=== PATIENT | female | born 1970 | race Caucasian/White ===

== ENCOUNTER 2017-09-25 15:54 | Emergency (ER) | payer MEDICARE, OTHER ==
[~2017-09-25] VITALS: Ht 177.8 cm; Wt 134.7 kg
--- OUTSIDE RECORDS SUMMARY | ~2017-09-25 | XMS | Clinical Summary ---
Demographics + + + | Address | [address] | | | [place] [address] | + + + | Home Phone | | + + + | Preferred Language | Unknown | + + + | Marital Status | Single | + + + | Denominational Affiliation | UNK | + + + | Race | White | + + + | Ethnic Group | Not or | + + + Author + + + | Author | NON REVENUE LOCATIONS | + + + | Organization | NON REVENUE LOCATIONS | + + + | Address | Unknown | + + + | Phone | Unavailable | + + + Support +------+ +---------+ + | Name | Relationship | Address | Phone | +------+ +---------+ + ECON | Unknown | | +------+ +---------+ + Care Team Providers + +------+-------+ | Care Manager Council Name | Role | Phone | + +------+-------+ | Ifeanyi Call MD | PP | tel | + +------+-------+ Source Comments MEENAKSHI is fully live on both EpicCare Ambulatory and EpicCare InPatient.[facility] Allergies + + + + + + | Active Allergy | Reactions | Severity | Noted | Comments | | | | | Date | | + + + + + + | Buprenorphine Hcl | Hives, Rash | High | 05/19/20 | | | | | | 15 | | + + + + + + | Ciprofloxacin | Nausea and Vomiting | Low | 07/16/20 | | | | | | 14 | | + + + + + + | Hydrocodone-Acetamin | Rash | Medium | 10/18/19 | | | ophen | | | 12 | | + + + + + + | Ibuprofen | Renal Failure | | 12/25/19 | | | | | | 17 | | + + + + + + | Latex | Hives | Medium | 10/18/19 | Hives | | | | | 12 | | + + + + + + | Meperidine Hcl | Rash | Medium | 10/18/19 | | | | | | 12 | | + + + + + + | Methadone | Nausea | Medium | 12/15/19 | Stomach | | | | | 16 | pains,shaky | + + + + + + | Sulfacetamide | Hives | High | 07/16/20 | | | | | | 14 | | + + + + + + | Sulfacetamide Sodium | Rash | Medium | 10/18/19 | | | | | | 12 | | + + + + + + | Sulfamethoxazole-Tri | Hives | High | 07/16/20 | | | methoprim | | | 14 | | + + + + + + Current Medications + + +-------+---------+------+------+-------+ | Prescription | Sig. | Disp. | Refills | Star | End | Statu | | | | | | t | Date | s | | | | | | Date | | | + + +-------+---------+------+------+-------+ | atorvastatin 40 mg | | | | 02/2 | | Activ | | oral tablet | | | | 7/20 | | e | | | | | | 17 | | | + + +-------+---------+------+------+-------+ | albuterol (PROAIR | Inhale by mouth. | | | 10/2 | | Activ | | HFA) 90 | | | | 0/20 | | e | | mcg/actuation | | | | 14 | | | | inhalation HFA | | | | | | | | aerosol inhaler | | | | | | | + + +-------+---------+------+------+-------+ | aspirin chewable | Chew and swallow. | | | | | Activ | | 81 mg oral | | | | | | e | | tablet,chewable | | | | | | | + + +-------+---------+------+------+-------+ | multivitamin (ONE | Take by mouth. | | | | | Activ | | DAILY MULTIVITAMIN) | | | | | | e | | oral tablet | | | | | | | + + +-------+---------+------+------+-------+ | Fenofibrate | | | | 03/2 | | Activ | | (FENOFIBRATE) 160 mg | | | | 0/20 | | e | | oral tablet | | | | 17 | | | + + +-------+---------+------+------+-------+ | venlafaxine 225 mg | | | | 03/0 | | Activ | | oral tablet | | | | 3/20 | | e | | extended release | | | | 17 | | | | 24hr | | | | | | | + + +-------+---------+------+------+-------+ | docusate sodium | Take by mouth. | | | 09/3 | | Activ | | 100 mg oral capsule | | | | 0/20 | | e | | | | | | 16 | | | + + +-------+---------+------+------+-------+ | torsemide 20 mg | | | | 10/20 | | Activ | | oral tablet | | | | 12/06 | | e | | | | | | 17 | | | + + +-------+---------+------+------+-------+ | spironolactone 50 | | | | 02/2 | | Activ | | mg oral tablet | | | | 04/07 | | e | | | | | | 17 | | | + + +-------+---------+------+------+-------+ | insulin regular | Inject under the | | | 07/20 | | Activ | | hum U-500 conc 500 | skin (SUBC). | | | 04/07 | | e | | unit/mL (3 mL) | | | | 16 | | | | subcutaneous insulin | | | | | | | | pen | | | | | | | + + +-------+---------+------+------+-------+ | allopurinol 100 mg | | | | 04/0 | | Activ | | oral tablet | | | | 01/06 | | e | | | | | | 17 | | | + + +-------+---------+------+------+-------+ | metoprolol | | | | 02/0 | | Activ | | succinate 100 mg | | | | 8/20 | | e | | oral tablet extended | | | | 17 | | | | release 24 hr | | | | | | | + + +-------+---------+------+------+-------+ | sodium bicarbonate | Take by mouth. | | | 03/0 | 03/0 | Activ | | 650 mg oral tablet | | | | 6/ | 6 | e | | | | | | 17 | 18 | | + + +-------+---------+------+------+-------+ | DEXILANT 60 mg | | | | 04/0 | | Activ | | oral capsule,biphase | | | | 420 | | e | | delayed releas | | | | 17 | | | + + +-------+---------+------+------+-------+ | KLOR-CON M10 10 | | | | 02/1 | | Activ | | mEq oral tablet,ER | | | | 20 | | e | | particles/crystals | | | | 17 | | | + + +-------+---------+------+------+-------+ | acetaminophen 500 | Take by mouth. | | | | | Activ | | mg oral tablet | | | | | | e | + + +-------+---------+------+------+-------+ | ascorbic acid SR | Take by mouth. | | | | | Activ | | 1,000 mg oral tablet | | | | | | e | + + +-------+---------+------+------+-------+ | b complex vitamins | Take by mouth. | | | | | Activ | | (VITAMINS B | | | | | | e | | COMPLEX) oral tablet | | | | | | | + + +-------+---------+------+------+-------+ | Cholecalciferol, | Take by mouth. | | | | | Activ | | Vitamin D3, 5,000 | | | | | | e | | unit oral capsule | | | | | | | + + +-------+---------+------+------+-------+ | INV insulin aspart | Inject under the | | | | | Activ | | 100 units/mL | skin (SUBC). | | | | | e | | subcutaneous | | | | | | | | injectable | | | | | | | + + +-------+---------+------+------+-------+ Active Problems Not on file Encounters +--------+ + + + + | Date | Type | Specialty | Care Team | Description | +--------+ + + + + | 09/22/ | Results | | Other, Faculty | | | 2017 | Only | | | | +--------+ + + + + | 09/22/ | Results | | Other, Faculty | | | 2017 | Only | | | | +--------+ + + + + from Last 3 Months Social History + +-------+ +--------+------+ | Tobacco [...] on file | | + + + Plan of Treatment + + + + + | Health Maintenance | Due Date | Last Done | Comments | + + + + + | INFLUENZA VACCINE | | 10/19/2011 | | | (FLU SHOT) | 7 | | | + + + + + Results CULTURE, URINE (09/22/2017 3:00 PM) + + + + | Component | Value | Ref Range | + + + + | CULTURE RESULT URINE | TO FOLLOWComment: Urine Culture to follow | | | | on a separate report Instructions | | | | Received: Copy To: HERMINIO WILKES M.D. | | | | H Copy To: [facility] | | | | CLINIC Copy To: ADITYA MARTIN D.O. | | | Stephanie Espino Copy Sent to HERMINIO WILKES M.D. on | | | | 09/22/17. [facility] Copy Sent to | | | | [facility] on | | | | 09/22/17. [facility] Copy Sent to | | | | ADITYA MARTIN D.O. on | | | | 09/22/17. [facility] | | + + + + + + + | Specimen | Performing Laboratory | + + + | | [facility] | + + + + + | Narrative | + + | Testing Performed at: [facility]: [id number] - [address] | | [id number] | + + URINALYSIS AND MICROSCOPIC (09/22/2017 3:00 PM) + + + + | Component | Value | Ref Range | + + + + | URINE COLLECTION | CLEAN CATCH | | + + + + | COLOR(UR) | STRAW | | + + + + | APPEARANCE | HAZY | | + + + + | SPECIFIC GRAVITY | 1.006 | 1.005 - 1.030 | + + + + | PH(UR) | 7 | 5 - 9 | + + + + | PROTEIN, UA | NEGATIVE | negative mg/dL | + + + + | GLUCOSE, UA | NORMAL | NORMAL mg/dL | + + + + | KETONES, UA | NEGATIVE | negative mg/dL | + + + + | BILIRUBIN | NEGATIVE | negative mg/dL | + + + + | BLOOD | TRACE | negative cells/uL | + + + + | NITRITES | NEGATIVE | negative | + + + + | UROBILINOGEN | NORMAL | NORMAL mg/dL | + + + + | LEUKOCYTE ESTERASE | 25 (H) | negative cells/uL | + + + + | CASTS | NEGATIVE | 0-1+ Hyaline /lpf | + + + + | LEUKOCYTES (UA DIP) | 30 (H) | 0 - 4 /hpf | + + + + | RED CELLS | 0 | 0 - 4 /hpf | + + + + | EPITHELIAL CELLS | SQUAMOUS 1+ | 0-1+ Squamous /lpf | + + + + | CRYSTALS | NEGATIVE | 0-1+ /hpf | + + + + | BACTERIA | 1+Comment: Instructions Received: | negative /hpf | | | Copy To: KATRIN Quevedo, HERMINIO Jorgensen Copy To: | | | | [facility] Copy To: VERONICA Brown | | | ADITYA Thrasher Copy Sent to HERMINIO Jorgensen | | | | KATRIN Quevedo on | | | | 09/22/17. [facility] Copy Sent to | | | | [facility] on | | | | 09/22/17. [facility] Copy Sent to | | | | ADITYA MARTIN D.O. on | | | | 09/22/17. [facility] | | + + + + + + + | Specimen | Performing Laboratory | + + + | | [facility] | + + + + + | Narrative | + + | Testing Performed at: [facility]: [id number] - [address] | | [id number] | + + from Last 3 Months"
[~2017-09-25 15:54] MED LIST: ALDACTONE25 MG PO; ALLOPURINOL100 MG PO; ASPIR-LOW81 MG PO; ATORVASTATIN CA40 MG PO; CARVEDILOL25 MG PO; DEXILANT60 MG PO; DICLOXACILLIN250 MG PO; EFFEXOR XR75 MG PO; FENOFIBRATE160 MG PO; FOLBIC RF TABL1 EACH PO; FUROSEMIDE40 MG PO; HUMULIN R500 UNIT/2 SQ; HYDROXYZINE HCL50 MG PO; KEFLEX500 MG PO; LEVAQUIN750 MG PO; LEVEMIR FL100 UNIT/2 SQ; LEVEMIR100 UNIT/1 SUB-Q; LYRICA200 MG PO; MELATONIN1 MG PO; METOPROLOL SUCC25 MG PO; MIRALAX17 GM PO; MULTIVITAMINS1 EAC7 PO; NOVOLOG FL100 UNIT/1 SUB-Q; NYSTOP60 GM TOP; OXYCODONE-ACET1 EAC3 PO; POTASSIUM CHLO10 ME1 PO; SODIUM BICARBO650 MG PO; SPIRONOLACTONE50 MG PO; TOPROL XL50 MG PO; TORSEMIDE20 MG PO; VENLAFAXINE HC150 MG PO; VITAMIN C1000 M2 PO; VITAMIN D5000 UNI1 PO
[2017-09-25] MEDS ORDERED: DOXYCYCLINE HY100 MG PO (20:01)
== END 2017-09-25 20:08 | disposition home or self-care (01) ==
LOC: ED 15:54
DX: J20.9 Acute bronchitis, unspecified (principal); I11.0 Hypertensive heart disease with heart failure; I50.9 Heart failure, unspecified; I25.2 Old myocardial infarction; E11.9 Type 2 diabetes mellitus without complications; E78.00 Pure hypercholesterolemia, unspecified; F41.9 Anxiety disorder, unspecified; F32.9 Major depressive disorder, single episode, unspecified; Z87.891 Personal history of nicotine dependence; Z89.512 Acquired absence of left leg below knee; Z98.890 Other specified postprocedural states; Z95.5 Presence of coronary angioplasty implant and graft; Z95.810 Presence of automatic (implantable) cardiac defibrillator; Z88.2 Allergy status to sulfonamides; Z91.040 Latex allergy status; Z88.8 Allergy status to other drugs, medicaments and biological substances; Z88.1 Allergy status to other antibiotic agents; Z88.5 Allergy status to narcotic agent; Z79.899 Other long term (current) drug therapy; Z79.4 Long term (current) use of insulin; Z79.82 Long term (current) use of aspirin
CPT/HCPCS: 71046; 99283

== ENCOUNTER 2019-09-29 23:26 | Emergency (ER) | payer MEDICARE, OTHER ==
[~2019-09-29] VITALS: Ht 177.8 cm; Wt 131.5 kg
== END 2019-09-30 03:33 | disposition home or self-care (01) ==
LOC: ED 23:26
DX: R11.2 Nausea with vomiting, unspecified (principal); E11.22 Type 2 diabetes mellitus with diabetic chronic kidney disease; I13.0 Hypertensive heart and chronic kidney disease with heart failure and stage 1 through stage 4 chronic kidney disease, or unspecified chronic kidney disease; N18.9 Chronic kidney disease, unspecified; I50.9 Heart failure, unspecified; D64.9 Anemia, unspecified; I25.2 Old myocardial infarction; F32.9 Major depressive disorder, single episode, unspecified; F41.9 Anxiety disorder, unspecified; Z88.2 Allergy status to sulfonamides; Z91.040 Latex allergy status; Z88.8 Allergy status to other drugs, medicaments and biological substances; Z88.5 Allergy status to narcotic agent; Z88.1 Allergy status to other antibiotic agents; Z79.899 Other long term (current) drug therapy; Z79.82 Long term (current) use of aspirin; Z79.4 Long term (current) use of insulin; Z89.512 Acquired absence of left leg below knee
CPT/HCPCS: 80053; 83605; 85025; 96374; 99284-25; J2405; J7030

== ENCOUNTER 2019-10-02 00:49 | Emergency (ER) | payer MEDICARE, OTHER ==
[~2019-10-02] VITALS: Ht 177.8 cm; Wt 105.7 kg
--- OUTSIDE RECORDS SUMMARY | ~2019-10-02 | XMS | Encounter Summary ---
Demographics + + + | Address | [address] | | | [place] [address] | + + + | Home Phone | | + + + | Preferred Language | Unknown | + + + | Marital Status | Single | + + + | Druze Affiliation | [id number] | + + + | Race | Unknown | + + + | Ethnic Group | Unknown | + + + Author + + + | Author | [facility] | | | and [place] | + + + | Organization | [facility] | | | and [place] | + + + | Address | Unknown | + + + | Phone | Unavailable | + + + Support + + + + + | Name | Relationship | Address | Phone | + + + + + | Kyaw Woodson | ECON | [place], [place] | | + + + + + | Barbara Cabrera | ECON | Unknown | | + + + + + | Dimple Hathaway | ECON | Unknown | | + + + + + Care Team Providers + +------+ + | Care Cloud Infrastructure Architect Name | Role | Phone | + +------+ + | No, Physician | PCP | Unavailable | + +------+ + Encounter Details +--------+ + + + + | Date | Type | Department | Care Team | Description | +--------+ + + + + | 09/04/ | Hospital | [facility] GENER[facility] IP | Conversion | Pain | | 2014 | Encounter | CONVERSION DEP [address] | Transaction, | | | | | [address] | Provider Unknown | | | | | [place] | [phone] | | | | | [phone] | | | | | | [phone] | | | +--------+ + + + + Social History + +-------+ +--------+------+ | Tobacco Use | Types | Packs/Day | Years | Date | | | | | Used | | + +-------+ +--------+------+ | Never Assessed | | | | | + +-------+ +--------+------+ + + + | Sex Assigned at | Date Recorded | | | | + + + | Not on file | | + + + + + + + | Job Start Date | Occupation | Industry | + + + + | Not on file | Not on file | Not on file | + + + + + + + + | Travel History | Travel Start | Travel End | + + + + + + | No recent travel history available. | + + documented as of this encounter Medications at Time of Discharge + + + +---------+ + + | Medication | Sig | Dispensed | Refills | Start | End Date | | | | | | Date | | + + + +---------+ + + | aspirin 81 mg | Take 81 mg by mouth | | 0 | 07/16/20 | | | chewable tablet | daily. | | | 14 | | + + + +---------+ + + documented as of this encounter Plan of Treatment +--------+ + + + + | Date | Type | Specialty | Care Team | Description | +--------+ + + + + | 10/10/ | Office | Cardiology | Jerry Watts | | | 2020 | Visit | | MD [address] | | | | | | [address] | | | | | | [place] | | | | | | [address] | | | | | | | | +--------+ + + + + | 10/10/ | Procedure | Cardiology | | | | 2019 | visit | | | | +--------+ + + + + | 10/17/ | Office | Family Medicine | Jerry Yuen, | | | 2019 | Visit | | MD [place] [place] | | | | | | [address] | | | | | | [place] [address] | | | | | | [phone] | | | | | | | | +--------+ + + + + | 11/25/ | Office | Nephrology | Kei Arthur MD | | | 2019 | Visit | | [address] [facility] [address] | | | | | | [address] | | | | | | [address] | | | | | | | | +--------+ + + + + documented as of this encounter Procedures + +--------+ + + + | Procedure Name | Priori | Date/Time | Associated Diagnosis | Comments | | | ty | | | | + +--------+ + + + | XR CHEST 2 VIEWS | Routin | 12/24/2008 | | Results for this | | | e | 3:02 AM | | procedure are in the | | | | PDT | | results section. | + +--------+ + + + documented in this encounter Results XR Chest 2 Vws (12/24/2008 3:02 AM PDT) + + | Specimen | + + | | + + + + + | Narrative | Performed At | + + + | This is a non-reportable procedure without a radiologist report and | | | is used for image storage only | | + + + + + | Procedure Note | + + | Marcelo Matias - 05/04/2019 6:43 PM PDT This is a non-reportable procedure | | without a radiologist report and isused for image storage only | + + documented in this encounter Visit Diagnoses + + | Diagnosis | + + | Pain Generalized pain | + + documented in this encounter"
--- OUTSIDE RECORDS SUMMARY | ~2019-10-02 | XMS | Encounter Summary ---
Demographics + + + | Address | [address] | | | [place] [address] | + + + | Home Phone | | + + + | Preferred Language | Unknown | + + + | Marital Status | Single | + + + | Yazidi Affiliation | [id number] | + + + | Race | Unknown | + + + | Ethnic Group | Unknown | + + + Author + + + | Author | [facility] | | | and [place] | + + + | Organization | [facility] | | | and [place] | + + + | Address | Unknown | + + + | Phone | Unavailable | + + + Support + + + + + | Name | Relationship | Address | Phone | + + + + + | Kyaw Woodson | ECON | [place], [place] | | + + + + + | Barbara Cabrera | ECON | Unknown | | + + + + + | Dimple Hathaway | ECON | Unknown | | + + + + + Care Team Providers + +------+ + | Care Mineral Economist Name | Role | Phone | + +------+ + | Jennyfer Gresham MD | PCP | | + +------+ + Reason for Visit + + + | Reason | Comments | + + + | Follow-up | | + + + Evaluate & Treat (Routine) + + + + + + + | Status | Reason | Specialty | Diagnoses / | Referred By | Referred To | | | | | Procedures | Contact | Contact | + + + + + + + | Authorized | Specialty | Cardiology | Diagnoses | Alsam[place], | Stefanie, | | | Services | | Chronic | MD Mari | Jerry | | | Required | | combined | [address] | [address] | | | | | systolic and | [address] | [address] | | | | | diastolic | [address] | [address], [address] | | | | | congestive | [place], [place] | [place], | | | | | heart | [address] | [place] [address] | | | | | failure | Phone: | Phone: | | | | | (HCC) | [phone] | [phone] | | | | | Ischemic | Fax: | Fax: | | | | | cardiomyopat | [phone] | [phone] | | | | | hy | | | + + + + + + + Encounter Details +--------+---------+ + + + | Date | Type | Department | Care Team | Description | +--------+---------+ + + + | 08/22/ | Office | [facility] | Jerry Moreno | Ischemic | | 2019 | Visit | CARDIOLOGY [place] | [address] | cardiomyopathy | | | | [address] | [facility] | (Primary Dx); Status | | | | [place], [place] | [place], [place] | post internal | | | | [address] | [address] | cardiac | | | | [phone] | | defibrillator | | | | | | procedure | +--------+---------+ + + + Social History + +-------+ +--------+------+ | Tobacco Use | Types | Packs/Day | Years | Date | | | | | Used | | + +-------+ +--------+------+ | Former Smoker | | 0.5 | | | + +-------+ +--------+------+ + +---+---+---+ | Smokeless Tobacco: | | | | | Never Used | | | | + +---+---+---+ + + +---------+ + | Alcohol Use | Drinks/Week | oz/Week | Comments | + + +---------+ + | Not Currently | | | | + + +---------+ + + + + | Sex Assigned at [...] + + documented as of this encounter Last Filed Vital Signs + +---------+ + + | Vital Sign | Reading | Time Taken | Comments | + +---------+ + + | Blood Pressure | 110/68 | 08/22/2019 10:36 AM | | | | | PST | | + +---------+ + + | Pulse | 83 | 08/22/2019 10:36 AM | | | | | PST | | + +---------+ + + | Temperature | - | - | | + +---------+ + + | Respiratory Rate | - | - | | + +---------+ + + | Oxygen Saturation | 97% | 08/22/2019 10:36 AM | | | | | PST | | + +---------+ + + | Inhaled Oxygen | - | - | | | Concentration | | | | + +---------+ + + | Weight | - | - | | + +---------+ + + | Height | - | - | | + +---------+ + + | Body Mass Index | - | - | | + +---------+ + + documented in this encounter Progress Notes Jerry Moreno MD - 08/22/2019 10:30 AM PSTFormatting of this note might be dif ferent from the original. Subjective: Referring MD: Mari Mcdaniel MD Chief Complaint Patient presents with Follow-up HPI: This is a 49 y.o. female who presents today for an initial evaluation given previous I CD implantation. Ms. Caballero has a history of coronary artery disease and severe ischemic cardiomyopathy. A subcutaneous ICD was implanted in [place] in 2012. She has been unable t o return to [place] for follow-up and has been following with cardiology in [place]. She was referred to electrophysiology as she believes her subcutaneous ICD is approaching the elect jarad replacement indicator. She does not currently have remote monitoring. She has had hosp italizations for infections earlier in the year and underwent an [id number]-[id number]-dudg amputation. She also reports she had issues with wound healing at the time her device was implanted in 2012. She denies any current chest pain, shortness of breath, dizziness, lightheadedness, p alpitations, or recent syncope. Past Medical History: Diagnosis Date Anemia Hgb 7.9 05/07 Anxiety CAD (coronary artery disease) 10/05/2012 S/p Cx stent - occl LAD CKD (chronic kidney disease), stage IV (HCC) 06/02/2015 cr 1.37 05/07 Depressed Diabetes mellitus, type 2 (HCC) Hyperlipidemia Hypertension Ischemic cardiomyopathy Old myocardial infarction Peripheral arterial disease (HCC) s/p right AKA Pneumonia Pressure ulcer Psychiatric disorder Seizures (HCC) Meth induced seizure two years ago Status post internal cardiac defibrillator procedure S/p BS S-ICD 9/13 Past Surgical History: Procedure Laterality Date AMPUTATION Right 04/14/2019 Procedure: KNEE - AMPUTATION ABOVE; Surgeon: Derrick Cook MD; Location: [facility]; [facility] vice: Vascular; Laterality: Right; Right AKA CARDIAC CATHERIZATION 09/2012 LM nl, LAD 100% prox, Cx patent mid stent, RCA distal 100%, EF 30+35% CARDIOVASCULAR STRESS TEST 04/2019 A2A SPECT: fixed apical, inferior, septal, mid anterior defect, no ischemia, EF 25% CHOLECYSTECTOMY FINGER AMPUTATION Left middle finger LEG AMPUTATION BELOW KNEE left OTHER SURGICAL HISTORY left LAPAROTOMY OOPHERECTOMY OTHER SURGICAL HISTORY 2012 CARDIAC PACEMAKER REMOVAL OTHER SURGICAL HISTORY replacement PACEMAKER INSERTION 11/2012 TRANSTHORACIC ECHOCARDIOGRAM 03/2019 EF 30-35%, mod LA dil, mild RA dil, tr MR, mild TR, RVSP 36 TUBAL LIGATION Family History Problem Relation Age of Onset Hypertension Mother Cancer Mother Diabetes, NIDDM Mother Cancer Father Prostate Diabetes, NIDDM Father Diabetes, NIDDM Sister Hypertension Brother Social History Socioeconomic History Marital status: Single Spouse name: Not on file Number of children: Not on file Years of education: college Highest education level: Not on file Tobacco Use Smoking status: Former Smoker Packs/day: 0.50 Smokeless tobacco: Never Used Substance and Sexual Activity Alcohol use: Not Currently Drug use: Not Currently Comment: Drug use: No Review of Systems: Ten system review negative unless noted in HPI. Current Outpatient Medications Medication Sig Dispense Refill acetaminophen (TYLENOL) 500 mg tablet Take 500 mg by mouth every 6 (six) hours as neede d for Pain. albuterol (PROAIR HFA) 90 mcg/puff inhaler Inhale 2 puffs into the lungs every 4 (four) hours as needed. 1 Inhaler 3 allopurinol (ZYLOPRIM) 300 mg tablet Take 1 tablet by mouth daily. 30 tablet 11 ascorbic acid (VITAMIN C) 1000 MG tablet Take 1,000 mg by mouth daily. aspirin 81 mg chewable tablet Take 81 mg by mouth daily. B complex vitamins tablet Take 1 tablet by mouth daily. bisacodyl (DULCOLAX) 5 mg EC tablet Take 5 mg by mouth Daily as needed for Constipation . diphenhydrAMINE (BENADRYL) 25 mg tablet Take 25 mg by mouth every 6 hours as needed for Itching. fenofibrate 160 mg tablet TAKE 1 TABLET BY MOUTH ONCE DAILY 90 tablet 3 ferrous sulfate 324 (65 Fe) MG EC tablet TAKE 1 TABLET BY MOUTH TWICE DAILY WITH MEALS 90 tablet 3 insulin glargine (BASAGLAR KWIKPEN) 100 units/mL injection (pen) Inject under the skin nightly. insulin lispro (HUMALOG) 100 units/mL injection (cartridge) Inject under the skin 3 ti mes daily (before meals). metoprolol succinate (TOPROL-XL) 100 mg ER tablet Take 1 tablet by mouth 2 (two) times daily. 180 tablet 3 Multiple Vitamin (MULTIVITAMIN) tablet Take 1 tablet by mouth daily. nitroglycerin (NITROSTAT) 0.4 mg SL tablet DISSOLVE ONE TABLET UNDER THE TONGUE EVERY 5 MINUTES NEEDED FOR CHEST PAIN. DO NOT EXCEED A TOTAL OF 3 DOSES IN 15 MINUTES 25 tablet 51 oxyCODONE 10 MG TABS Take 10 mg by mouth. polyethylene glycol (MIRALAX) packet Take 17 g by mouth Daily. potassium chloride (KLOR-CON) 10 mEq CR tablet 10 mEq daily. sodium bicarbonate 650 mg tablet TAKE 2 TABLETS BY MOUTH THREE TIMES DAILY 540 tablet 3 torsemide (DEMADEX) 20 mg tablet TAKE 2 TABLETS BY MOUTH TWICE DAILY 360 tablet 1 venlafaxine (EFFEXOR XR) 150 mg 24 hr capsule No current facility-administered medications for this visit. Allergies Allergen Reactions Buprenorphine Hives and Rash Sulfacetamide Hives Sulfamethoxazole-Trimethoprim Hives Demerol [Meperidine] Rash Rash, Patient has tolerated fentanyl in house Latex Other (See Comments) Hives Methadone Other (See Comments) Stomach pains,shaky Sulfa Antibiotics Rash Rash Vicodin [Hydrocodone-Acetaminophen] Rash Rash Ciprofloxacin Nausea And Vomiting Objective: Vitals: 08/22/19 1036 BP: 110/68 Pulse: 83 Weight: Height: There is no height or weight on file to calculate BMI. Exam: General: Patient is alert, pleasant, cooperative, and in no acute distress. Eyes: Sclerae anicteric. Ears: External ears normal. Nose: External nose normal. Oral exam: No oral lesions noted. Neck: Trachea midline. No thyromegaly. No elevation of jugular venous pressure. No rivera tid bruits. Lungs: Clear to auscultation bilaterally. No wheezes, rales, or rhonchi. Heart: Regular rate and rhythm. Normal S1/S2. No murmurs, gallops, rubs. Abdomen: Bowel sounds present. Soft, nondistended. No masses or hepatosplenomegaly noted . No significant tenderness noted. Extremities: No clubbing or cyanosis noted. No lower extremity edema noted. Pulses: Intact bilateral radial and pedal pulses. Musculoskeletal: No obvious arthritic change noted of the knees. Skin: Warm and dry. Psychiatric: Patient is alert and oriented to person, place, and day. Mood and affect nor mal. Neurological: Patient is intact to light touch in the upper and lower extremities bilateral ly. Left chest sites: Incisions are well-healed with no erythema, induration, discharge, or pre -erosion Review of studies: ECG: Normal sinus rhythm at 83 bpm, anterior infarct, no previous available for comparison Device Interrogation: Impression/Plan: Alondra was seen today for follow-up. Diagnoses and all orders for this visit: Ischemic cardiomyopathy - ECG 12 lead Status post internal cardiac defibrillator procedure 1) Ischemic cardiomyopathy - Ms. Caballero has a history of coronary artery disease and is s tatus post previous percutaneous intervention with known occlusion of her LAD. Given severe cardiomyopathy she underwent implantation of a subcutaneous ICD in 2012. No pacing or [facility] indication is currently noted. She continues to follow with cardiology. 2) S/p S-ICD - She had a subcutaneous ICD implanted in 2013 for primary prevention in the s etting of severe ischemic cardiomyopathy. She has never had any ICD shocks by her account. Her device was interrogated today with normal impedance values noted. 5% battery life is l eft prior to PAUL. Remote monitoring is not currently available for her generator. She will follow-up to reevaluate battery life in 6 weeks. We began to discuss generator change. Wilma corrales is at increased risk for infection and wound related complications given her prior history of multiple infections and wound healing issues post procedures. This encounter was dictated with voice recognition software and may contain inadvertent rec ognition errors. documented in this encounter Plan of Treatment +--------+ + + + + | Date | Type | Specialty | Care Team | Description | +--------+ + + + + | 10/10/ | Office | Cardiology | Jerry Moreno | | | 2019 | Visit | | MD [address] | | | | | | [facility] | | | | | | [place], [place] | | | | | | [address] | | | | | | | | +--------+ + + + + | 10/10/ | Procedure | Cardiology | | | | 2019 | visit | | | | +--------+ + + + + | 10/17/ | Office | Family Medicine | Jerry Yuen, | | | 2019 | Visit | | [address] | | | | | | [address] | | | | | | [place] [address] | | | | | | [phone] | | | | | | | | +--------+ + + + + | 11/25/ | Office | Nephrology | Kei Arthur MD | | | 2019 | Visit | | [address] [facility] | | | | | | [address] [place] | | | | | | [address] | | | | | | | | +--------+ + + + + documented as of this encounter Procedures + +--------+ + + + | Procedure Name | Priori | Date/Time | Associated Diagnosis | Comments | | | ty | | | | + +--------+ + + + | ECG 12 LEAD | Routin | 08/22/2019 | Ischemic | Results for this | | | e | 10:44 AM | cardiomyopathy | procedure are in the | | | | PST | | results section. | + +--------+ + + + documented in this encounter Results ECG 12 lead (08/22/2019 10:44 AM PST) + + + + + + | Component | Value | Ref Range | Performed | Pathologist | | | | | At | Signature | + + + + + + | VENTRICULAR | 83 | BPM | [facility] | | | RATE EKG | | | | | + + + + + + | ATRIAL RATE | 83 | BPM | [facility] | | + + + + + + | P-R | 158 | ms | [facility] | | | INTERVAL | | | | | + + + + + + | QRS | 100 | ms | [facility] | | | DURATION | | | | | + + + + + + | Q-T | 394 | ms | [facility] | | | INTERVAL | | | | | + + + + + + | Q-T | 462 | ms | [facility] | | | INTERVAL | | | | | | (CORRECTED) | | | | | + + + + + + | P WAVE AXIS | 45 | degrees | [facility] | | + + + + + + | QRS AXIS | 67 | degrees | [facility] | | + + + + + + | T AXIS | 67 | degrees | [facility] | | + + + + + + | INTERPRETAT | Please refer to | | [facility] | | | ION TEXT | Providers office visit | | | | | | note for Providers | | | | | | Interpretation.Confirmed | | | | | | by [facility] Read Only, | | | | | | [facility] ([id number]), | | | | | | index editor Pop Hess | | | | | | ([id number]) on 08/22/2019 | | | | | | 11:14:49 AM | | | | + + + + + + + + | Specimen | + + | | + + + + + | Narrative | Performed At | + + + | | | + + + + +---------+ + + | Performing | Address | City/State/Zipcode | Phone Number | | Organization | | | | + +---------+ + + | [facility] | | | | + +---------+ + + documented in this encounter Visit Diagnoses + + | Diagnosis | + + | Ischemic cardiomyopathy - Primary Other specified forms of chronic ischemic heart | | disease | + + | Status post internal cardiac defibrillator procedure Automatic implantable cardiac | | defibrillator in situ | + + documented in this encounter"
--- OUTSIDE RECORDS SUMMARY | ~2019-10-02 | XMS | Encounter Summary ---
Demographics + + + | Address | [address] | | | [place] [address] | + + + | Home Phone | | + + + | Preferred Language | Unknown | + + + | Marital Status | Single | + + + | Worship Affiliation | 1041 | + + + | Race | Unknown | + + + | Ethnic Group | Unknown | + + + Author + + + | Author | [facility] | | | and [place] | + + + | Organization | [facility] | | | and [place] | + + + | Address | Unknown | + + + | Phone | Unavailable | + + + Support + + + + + | Name | Relationship | Address | Phone | + + + + + | Kyaw Woodson | ECON | [place], [place] | | + + + + + | Barbara Cabrera | ECON | Unknown | | + + + + + | Dimple Hathaway | ECON | Unknown | | + + + + + Care Team Providers + +------+ + | Care Care Provider Name | Role | Phone | + +------+ + | Daniel Land NP | PCP | | + +------+ + Encounter Details +--------+ + + + + | Date | Type | Department | Care Team | Description | +--------+ + + + + | 03/08/ | Orders Only | [facility] | Conversion | | | 2017 | | NEPHROLOGY [place] | Transaction, | | | | | [address] | Provider Unknown | | | | | [address] [facility] [place] | | | | | | [address] | (Fax) | | | | | [phone] | | | +--------+ + + + [...] | Cardiology | Jerry Watts | | 2019 | Visit | | MD [address] | | | | | | [facility] | | | | | | [place] | | | | | | [address] | | | | | | | | +--------+ + + + + | 10/10/ | Procedure | Cardiology | | | | 2019 | visit | | | | +--------+ + + + + | 10/17/ | Office | Family Medicine | Jerry Yuen, | | | 2019 | Visit | | MD [address] [place] | | | | | | [address] | | | | | | [place] [address] | | | | | | [phone] | | | | | | | | +--------+ + + + + | 11/25/ | Office | Nephrology | Kei Arthur MD | | | 2019 | Visit | | [address] [facility] | | | | | | [address] [facility] | | | | | | [address] | | | | | | | | +--------+ + + + + documented as of this encounter Procedures + +--------+ + + + | Procedure Name | Priori | Date/Time | Associated Diagnosis | Comments | | | ty | | | | + +--------+ + + + | EXTERNAL LAB: CBC | Routin | 03/08/2017 | | Results for this | | | e | 8:05 AM | | procedure are in the | | | | PDT | | results section. | + +--------+ + + + | LIPID PANEL | Routin | 03/08/2017 | | Results for this | | | e | 8:05 AM | | procedure are in the | | | | PDT | | results section. | + +--------+ + + + | HEMOGLOBIN A1C | Routin | 03/08/2017 | | Results for this | | | e | 8:05 AM | | procedure are in the | | | | PDT | | results section. | + +--------+ + + + | RENAL FUNCTION PANEL | Routin | 03/08/2017 | | Results for this | | | e | 8:05 AM | | procedure are in the | | | | PDT | | results section. | + +--------+ + + + | COMPREHENSIVE | Routin | 03/08/2017 | | Results for this | | METABOLIC PANEL | e | 8:05 AM | | procedure are in the | | | | PDT | | results section. | + +--------+ + + + documented in this encounter Results External Lab: CBC (03/08/2017 8:05 AM PDT) + + + + + + | Component | Value | Ref Range | Performed | Pathologist | | | | | At | Signature | + + + + + + | WBC | 18.6 (A) | 4.5 - 11.0 10 | EXTERNAL | | | | | | LAB | | + + + + + + | RED CELL | 3.58 (A) | 3.8 - 5.1 10 | EXTERNAL | | | COUNT | | | LAB | | + + + + + + | Hgb | 10.5 (A) | 12.0 - 16.0 | EXTERNAL | | | | | g/dL | LAB | | + + + + + + | Hematocrit, | 32.2 (A) | 35 - 45 % | EXTERNAL | | | POC | | | LAB | | + + + + + + | MCV | 89.9 | 81 - 99 fL | EXTERNAL | | | | | | LAB | | + + + + + + | MCH | 29 | 27 - 33 pg | EXTERNAL | | | | | | LAB | | + + + + + + | MCHC | 33 | 30 - 36 g/dL | EXTERNAL | | | | | | LAB | | + + + + + + | Platelet | 319 | 140 - 440 K/ L | EXTERNAL | | | Count | | | LAB | | | Plasma | | | | | + + + + + + | RDW-CV | 16.0 (A) | 10.5 - 15.0 % | EXTERNAL | | | | | | LAB | | + + + + + + | MPV | | fL | EXTERNAL | | | | | | LAB | | + + + + + + | Differentia | | | EXTERNAL | | | l Type | | | LAB | | + + + + + + | % Segmented | | % | EXTERNAL | | | | | | LAB | | | Neutrophils | | | | | + + + + + + | % | | % | EXTERNAL | | | Lymphocytes | | | LAB | | + + + + + + | % Monocytes | | % | EXTERNAL | | | | | | LAB | | + + + + + + | % | | % | EXTERNAL | | | Eosinophils | | | LAB | | + + + + + + | % Basophils | | % | EXTERNAL | | | | | | LAB | | + + + + + + | Absolute | | / L | EXTERNAL | | | Segmented | | | LAB | | | Neutrophils | | | | | + + + + + + | Absolute | | / L | EXTERNAL | | | Lymphocytes | | | LAB | | + + + + + + | Absolute | | / L | EXTERNAL | | | Monocytes | | | LAB | | + + + + + + | Absolute | | / L | EXTERNAL | | | Eosinophils | | | LAB | | + + + + + + | Absolute | | / L | EXTERNAL | | | Basophils | | | LAB | | + + + + + + + + | Specimen | + + | Blood specimen | | (specimen) | + + + +---------+ + + | Performing | Address | City/State/Zipcode | Phone Number | | Organization | | | | + +---------+ + + | EXTERNAL LAB | | | | + +---------+ + + Hemoglobin A1C (03/08/2017 8:05 AM PDT) + +-------+ + + + | Component | Value | Ref Range | Performed | Pathologist | | | | | At | Signature | + +-------+ + + + | Hemoglobin | 7.4 | % | EXTERNAL | | | A1c | | | LAB | | + +-------+ + + + + + | Specimen | + + | Blood specimen | | (specimen) | + + + +---------+ + + | Performing | Address | City/State/Zipcode | Phone Number | | Organization | | | | + +---------+ + + | EXTERNAL LAB | | | | + +---------+ + + Renal Function Panel (03/08/2017 8:05 AM PDT) + + + + + + | Component | Value | Ref Range | Performed | Pathologist | | | | | At | Signature | + + + + + + | Glucose, | 126 (A) | 70 - 100 mg/dL | EXTERNAL | | | Fasting | | | LAB | | + + + + + + | BUN | 30 (A) | 6 - 23 mg/dL | EXTERNAL | | | | | | LAB | | + + + + + + | Creatinine | 2.49 (A) | 0.60 - 1.35 | EXTERNAL | | | | | mg/dL | LAB | | + + + + + + | PHOSPHORUS | | mg/dL | EXTERNAL | | | | | | LAB | | + + + + + + | Albumin | 3.9 | 3.5 - 5.0 | EXTERNAL | | | | | | LAB | | + + + + + + | Na | 139 | 132 - 143 | EXTERNAL | | | | | mmol/L | LAB | | + + + + + + | K | 4.4 | 3.6 - 5.1 | EXTERNAL | | | | | mmol/L | LAB | | + + + + + + | Cl | 100 | 95 - 112 mmol/L | EXTERNAL | | | | | | LAB | | + + + + + + | CO2 | 22 | 19 - 31 mmol/L | EXTERNAL | | | | | | LAB | | + + + + + + | Anion Gap | 21.4 (A) | 7 - 21 mmol/L | EXTERNAL | | | | | | LAB | | + + + + + + | eGFR if not | | | EXTERNAL | | | | | | LAB | | | HONDURAN | | | | | + + + + + + | Phosphorus, | 4.5 | 2.5 - 5.0 | EXTERNAL | | | Inorganic | | | LAB | | + + + + + + | BUN/Creatin | 12.0 | 6.0 - 28.6 | EXTERNAL | | | ine Ratio | | | LAB | | + + + + + + | Calcium | 9.4 | 8.4 - 10.2 | EXTERNAL | | | | | mg/dL | LAB | | + + + + + + | Estimated | 21 | mg/dL | EXTERNAL | | | GFR | | | LAB | | + + + + + + + + | Specimen | + + | Blood specimen | | (specimen) | + + + +---------+ + + | Performing | Address | City/State/Zipcode | Phone Number | | Organization | | | | + +---------+ + + | EXTERNAL LAB | | | | + +---------+ + + Lipid Panel (03/08/2017 8:05 AM PDT) + +---------+ + + + | Component | Value | Ref Range | Performed | Pathologist | | | | | At | Signature | + +---------+ + + + | Cholesterol | 126 | mg/dL | EXTERNAL | | | | | | LAB | | + +---------+ + + + | Triglycerid | 323 (A) | 30 - 150 mg/dL | EXTERNAL | | | es | | | LAB | | + +---------+ + + + | HDL | 26.0 | mg/dl | EXTERNAL | | | | | | LAB | | + +---------+ + + + | LDL | 35 | mg/dL | EXTERNAL | | | Cholesterol | | | LAB | | | , | | | | | | Calculated, | | | | | | External | | | | | + +---------+ + + + | LDl/HDL | | | EXTERNAL | | | Ratio | | | LAB | | + +---------+ + + + | Chol/HDL | 4.8 | | EXTERNAL | | | Ratio | | | LAB | | + +---------+ + + + | VLDL | 65 (A) | 4 - 40 mg/dL | EXTERNAL | | | | | | LAB | | + +---------+ + + + | Non HDL | 100 | | EXTERNAL | | | Chol. | | | LAB | | | (LDL+VLDL) | | | | | + +---------+ + + + + + | Specimen | + + | Blood specimen | | (specimen) | + + + +---------+ + + | Performing | Address | City/State/Zipcode | Phone Number | | Organization | | | | + +---------+ + + | EXTERNAL LAB | | | | + +---------+ + + Comprehensive Metabolic Panel (03/08/2017 8:05 AM PDT) + + + + + + | Component | Value | Ref Range | Performed | Pathologist | | | | | At | Signature | + + + + + + | Glucose, | 125 (A) | 70 - 100 mg/dL | EXTERNAL | | | Fasting | | | LAB | | + + + + + + | BUN | 30 (A) | 6 - 23 mg/dL | EXTERNAL | | | | | | LAB | | + + + + + + | Creatinine | 2.48 (A) | 0.60 - 1.35 | EXTERNAL | | | | | mg/dL | LAB | | + + + + + + | BUN/Creatin | 12.1 | 6.0 - 28.6 | EXTERNAL | | | ine Ratio | | | LAB | | + + + + + + | Calcium | 9.4 | 8.4 - 10.2 | EXTERNAL | | | | | mg/dL | LAB | | + + + + + + | Protein, | 6.9 | 6.0 - 8.0 g/dL | EXTERNAL | | | Total | | | LAB | | + + + + + + | Albumin | 3.9 | 3.5 - 5.0 | EXTERNAL | | | | | | LAB | | + + + + + + | Globulin | 3.0 | 1.8 - 3.5 | EXTERNAL | | | | | | LAB | | + + + + + + | A/G Ratio | 1.3 | 1.1 - 2.4 | EXTERNAL | | | | | | LAB | | + + + + + + | Bilirubin | 0.4 | 0.0 - 1.2 mg/dL | EXTERNAL | | | Total | | | LAB | | + + + + + + | ALP, | 79 | 31 - 130 | EXTERNAL | | | External | | | LAB | | + + + + + + | ALT | 17 | 7 - 52 U/L | EXTERNAL | | | | | | LAB | | + + + + + + | AST | 20 | 13 - 39 U/L | EXTERNAL | | | | | | LAB | | + + + + + + | Na | 137 | 132 - 143 | EXTERNAL | | | | | mmol/L | LAB | | + + + + + + | K | 4.4 | 3.6 - 5.1 | EXTERNAL | | | | | mmol/L | LAB | | + + + + + + | Cl | 100 | 95 - 112 mmol/L | EXTERNAL | | | | | | LAB | | + + + + + + | CO2 | 21 | 19 - 31 mmol/L | EXTERNAL | | | | | | LAB | | + + + + + + | Anion Gap | 20.4 | 7 - 21 mmol/L | EXTERNAL | | | | | | LAB | | + + + + + + | Estimated | 21 | mg/dL | EXTERNAL | | | GFR | | | LAB | | + + + + + + + + | Specimen | + + | Blood specimen | | (specimen) | + + + +---------+ + + | Performing | Address | City/State/Zipcode | Phone Number | | Organization | | | | + +---------+ + + | EXTERNAL LAB | | | | + +---------+ + + documented in this encounter Visit Diagnoses Not on filedocumented in this encounter"
--- OUTSIDE RECORDS SUMMARY | ~2019-10-02 | XMS | Encounter Summary ---
Demographics + + + | Address | [address] | | | [place] [address] | + + + | Home Phone | | + + + | Preferred Language | Unknown | + + + | Marital Status | Single | + + + | Christian Affiliation | UNK | + + + | Race | White | + + + | Ethnic Group | Not or | + + + Author + + + | Author | [facility] | + + + | Organization | [facility] | + + + | Address | Unknown | + + + | Phone | Unavailable | + + + Support + + +---------+ + | Name | Relationship | Address | Phone | + + +---------+ + | Valentine Qiu | ECON | Unknown | | + + +---------+ + Care Team Providers + +------+ + | Care Countersinker Name | Role | Phone | + +------+ + PCP | Unavailable | + +------+ + Encounter Details +--------+ + + + + | Date | Type | Department | Care Team | Description | +--------+ + + + + | 03/16/ | Documentati | [facility] | Danielito Crockett MD,PhD | | | 2016 | on | [facility] | [address] | | | | | at [facility] [address] | [address] | | | | | [facility] | [place], [place] | | | | | Mailcode: [facility] | [address] | | | | | [place] [address] | [phone] | | | | | [phone] | | | +--------+ + + + [...] as of this encounter Plan of Treatment Not on filedocumented as of this encounter Visit Diagnoses Not on filedocumented in this encounter"
--- OUTSIDE RECORDS SUMMARY | ~2019-10-02 | XMS | Encounter Summary ---
Demographics + + + | Address | [address] | | | [place] [address] | + + + | Home Phone | | + + + | Preferred Language | Unknown | + + + | Marital Status | Single | + + + | Pentecostal Affiliation | 1041 | + + + | Race | Unknown | + + + | Ethnic Group | Unknown | + + + Author + + + | Author | [facility] | | | and [place] | + + + | Organization | [facility] | | | and [place] | + + + | Address | Unknown | + + + | Phone | Unavailable | + + + Support + + + + + | Name | Relationship | Address | Phone | + + + + + | Kyaw Woodson | ECON | [place], [place] | | + + + + + | Barbara Cabrera | ECON | Unknown | | + + + + + | Dimple Hathaway | ECON | Unknown | | + + + + + Care Team Providers + +------+ + | Care Drill Press Operator Helper Name | Role | Phone | + +------+ + | Daniel Land NP | PCP | | + +------+ + Encounter Details +--------+ + + + + | Date | Type | Department | Care Team | Description | +--------+ + + + + | 05/27/ | Orders Only | [facility] | Conversion | | | 2016 | | NEPRHOLOGY [place] | Transaction, | | | | | [address] | Provider Unknown | | | | | [address] [place] | [phone] | | | | | [address] | | | | | | [phone] | | | +--------+ + + + [...] Cardiology | Jerry Watts | | | 2019 | Visit | | [address] | | | | | | [address] [facility] | | | | | | [place] | | | | | | [address] | | | | | | | [...] | | | | | [place] [address] | | | | | | [phone] | | | | | | | | +--------+ + + + + | 11/25/ | Office | Nephrology | Kei Arthur MD | | | 2019 | Visit | | [address] [facility] | | | | | | [address] [place] | | | | | | [address] | | | | | | | | +--------+ + + + + documented as of this encounter Procedures + +--------+ + + + | Procedure Name | Priori | Date/Time | Associated Diagnosis | Comments | | | ty | | | | + +--------+ + + + | IRON AND IRON | Routin | 05/27/2016 | | Results for this | | BINDING CAPACITY | e | 12:00 AM | | procedure are in the | | | | PDT | | results section. | + +--------+ + + + | VITAMIN D, | Routin | 05/27/2016 | | Results for this | | DEFICIENCY SCREEN | e | 12:00 AM | | procedure are in the | | (25-HYDROXY) | | PDT | | results section. | + +--------+ + + + | URINALYSIS, | Routin | 05/27/2016 | | Results for this | | MICROSCOPIC ONLY | e | 12:00 AM | | procedure are in the | | | | PDT | | results section. | + +--------+ + + + | PARATHYROID HORMONE, | Routin | 05/27/2016 | | Results for this | | INTACT AND CALCIUM | e | 12:00 AM | | procedure are in the | | | | PDT | | results section. | + +--------+ + + + | PROTEIN/CREATININE | Routin | 05/27/2016 | | Results for this | | RATIO, URINE | e | 12:00 AM | | procedure are in the | | | | PDT | | results section. | + +--------+ + + + | HEMOGLOBIN | Routin | 05/27/2016 | | Results for this | | | e | 12:00 AM | | procedure are in the | | | | PDT | | results section. | + +--------+ + + + | HEMATOCRIT | Routin | 05/27/2016 | | Results for this | | | e | 12:00 AM | | procedure are in the | | | | PDT | | results section. | + +--------+ + + + | URIC ACID | Routin | 05/27/2016 | | Results for this | | | e | 12:00 AM | | procedure are in the | | | | PDT | | results section. | + +--------+ + + + | TRANSFERRIN | Routin | 05/27/2016 | | Results for this | | | e | 12:00 AM | | procedure are in the | | | | PDT | | results section. | + +--------+ + + + | MAGNESIUM | Routin | 05/27/2016 | | Results for this | | | e | 12:00 AM | | procedure are in the | | | | PDT | | results section. | + +--------+ + + + | FERRITIN | Routin | 05/27/2016 | | Results for this | | | e | 12:00 AM | | procedure are in the | | | | PDT | | results section. | + +--------+ + + + documented in this encounter Results Iron and Iron Binding Capacity (05/27/2016 12:00 AM PDT) + +---------+ + + + | Component | Value | Ref Range | Performed | Pathologist | | | | | At | Signature | + +---------+ + + + | Iron | 51.65 | 37 - 160 | EXTERNAL | | | | | | LAB | | + +---------+ + + + | Iron | 9.1 (A) | 20 - 55 | EXTERNAL | | | Saturation | | | LAB | | + +---------+ + + + | TIBC | 566 (A) | 245 - 400 | EXTERNAL | | | | | [...] | | | + +---------+ + + Parathyroid Hormone, Intact and Calcium (05/27/2016 12:00 AM PDT) + + + + + + | Component | Value | Ref Range | Performed | Pathologist | | | | | At | Signature | + + + + + + | PTH Intact | 236.9 (A) | 15 - 65 | EXTERNAL | | | | | | LAB | | + + + + + + | Calcium | 9.6 | 8.4 - 10.2 | EXTERNAL | [...] | | | + +---------+ + + Protein/Creatinine Ratio, Urine (05/27/2016 12:00 AM PDT) + + + + + + | Component | Value | Ref Range | Performed | Pathologist | | | | | At | Signature | + + + + + + | Protein/Cre | 562.5 (A) | 0 - 150 | EXTERNAL | | | at Ratio | | | LAB | | + + + + + + + + | Specimen | + + | Urine specimen | | (specimen) | + + + + + | Impressions | Performed At | + + + | Protein 18 Creatinine 32 | EXTERNAL LAB | + + + + +---------+ + + | Performing | Address | City/State/Zipcode | Phone Number | | Organization | | | | + +---------+ + + | EXTERNAL LAB | | | | + +---------+ + + Vitamin D, Deficiency Screen (25-Hydroxy) (05/27/2016 12:00 AM PDT) + +-------+ + + + | Component | Value | Ref Range | Performed | Pathologist | | | | | At | Signature | + +-------+ + + + | Vit D, | 39 | 30 - 100 | EXTERNAL | | | 25-Hydroxy | | | LAB | | + +-------+ + + + + + | Specimen | + + | Blood specimen | | (specimen) | + + + +---------+ + + | Performing | Address | City/State/Zipcode | Phone Number | | Organization | | | | + +---------+ + + | EXTERNAL LAB | | | | + +---------+ + + Urinalysis, Microscopic Only (05/27/2016 12:00 AM PDT) + + + + + + | Component | Value | Ref Range | Performed | Pathologist | | | | | At | Signature | + + + + + + | Color | Light Yellow | | EXTERNAL | | | | | | LAB | | + + + + + + | Clarity | Clear | | EXTERNAL | | | | | | LAB | | + + + + + + | Specific | 1.008 | 1.005 - 1.030 | EXTERNAL | | | [place] | | | LAB | | + + + + + + | Leukocyte | Negative | | EXTERNAL | | | Esterase, | | | LAB | | | Urine | | | | | + + + + + + | Nitrite, | Negative | | EXTERNAL | | | Urine | | | LAB | | + + + + + + | Urobilinoge | Normal | | EXTERNAL | | | n, Urine | | | LAB | | + + + + + + | Protein, | Negative | | EXTERNAL | | | Urine | | | LAB | | + + + + + + | pH, Urine | 7 | 5 - 9 | EXTERNAL | | | | | | LAB | | + + + + + + | Blood, | Negative | | EXTERNAL | | | Urine | | | LAB | | + + + + + + | Ketones | Negative | | EXTERNAL | | | | | | LAB | | + + + + + + | Bilirubin, | Negative | | EXTERNAL | | | Urine | | | LAB | | + + + + + + | Glucose, | Negative | | EXTERNAL | | | Urine | | | LAB | | + + + + + + + + | Specimen | + + | Urine specimen | | (specimen) | + + + +---------+ + + | Performing | Address | City/State/Zipcode | Phone Number | | Organization | | | | + +---------+ + + | EXTERNAL LAB | | | | + +---------+ + + Hemoglobin (05/27/2016 12:00 AM PDT) + + | Specimen | + + | Blood specimen | | (specimen) | + + + + + | Impressions | Performed At | + + + | 9.1 12.0 - 16.0 | EXTERNAL LAB | + + + + +---------+ + + | Performing | Address | City/State/Zipcode | Phone Number | | Organization | | | | + +---------+ + + | EXTERNAL LAB | | | | + +---------+ + + Hematocrit (05/27/2016 12:00 AM PDT) + + + + + + | Component | Value | Ref Range | Performed | Pathologist | | | | | At | Signature | + + + + + + | Hematocrit, | 29.2 (A) | 35 - 45 % | [...] | | | + +---------+ + + Uric Acid (05/27/2016 12:00 AM PDT) + + + + + + | Component | Value | Ref Range | Performed | Pathologist | | | | | At | Signature | + + + + + + | Uric Acid | 11.3 (A) | 2.3 - 6.6 | EXTERNAL | | | | | [...] | | | + +---------+ + + Transferrin (05/27/2016 12:00 AM PDT) + + + + + + | Component | Value | Ref Range | Performed | Pathologist | | | | | At | Signature | + + + + + + | TRANSFERRIN | 404.20 (A) | 192 - 382 | EXTERNAL | | | | | [...] | | | + +---------+ + + Magnesium (05/27/2016 12:00 AM PDT) + +-------+ + + + | Component | Value | Ref Range | Performed | Pathologist | | | | | At | Signature | + +-------+ + + + | Magnesium | 2.2 | 1.7 - 2.5 mg/dL | EXTERNAL | | | | [...] | | | + +---------+ + + Ferritin (05/27/2016 12:00 AM PDT) + + + + + + | Component | Value | Ref Range | Performed | Pathologist | | | | | At | Signature | + + + + + + | Ferritin, | 360.8 (A) | 13 - 150 ng/mL | EXTERNAL | | | External | [...]
--- OUTSIDE RECORDS SUMMARY | ~2019-10-02 | XMS | Encounter Summary ---
Demographics + + + | Address | [address] | | | [place] [address] | + + + | Home Phone | | + + + | Preferred Language | Unknown | + + + | Marital Status | Single | + + + | Presybeterian Affiliation | 1041 | + + + | Race | Unknown | + + + | Ethnic Group | Unknown | + + + Author + + + | Author | [facility] | | | and [place] | + + + | Organization | [facility] | | | and [place] | + + + | Address | Unknown | + + + | Phone | Unavailable | + + + Support + + + + + | Name | Relationship | Address | Phone | + + + + + | Kyaw Woodson | ECON | [place], [place] | | + + + + + | Barbara Cabrera | ECON | Unknown | | + + + + + | Dimple Hathaway | ECON | Unknown | | + + + + + Care Team Providers + +------+ + | Care Frozen Foods Manager Name | Role | Phone | + +------+ + | Daniel Land NP | PCP | | + +------+ + Encounter Details +--------+ + + + + | Date | Type | Department | Care Team | Description | +--------+ + + + + | 11/05/ | Orders Only | [facility] | Kei Arthur MD | | | 2015 | | NEPRHOLOGY [place] | [address] | | | | | [address] | [address] [place], [place] | | | | | [address] [place], [place] | [address] | | | | | [address] | | | | | | [phone] | | | +--------+ + + + [...] [address] | | | | | | [facility] | | | | | | [place] | | | | | | [address] | | | | | | | | +--------+ + + + + | 10/10/ | Procedure | Cardiology | | | 2019 | visit | | | | +--------+ + + + + | 10/17/ | Office | Family Medicine | Jerry Yuen, | | | 2019 | Visit | | [address] | | | | | | [address] | | | | | | [place] [address] | | | | | | [phone] | | | | | | | | +--------+ + + + + | 11/25/ | Office | Nephrology | Kie Arthur MD | | | 2019 | Visit | | [address] | | | | | | [address] [facility] | | | | | | [address] | | | | | | | | +--------+ + + + + documented as of this encounter Procedures + +--------+ + + + | Procedure Name | Priori | Date/Time | Associated Diagnosis | Comments | | | ty | | | | + +--------+ + + + | ECHO INTERPRETATION | Routin | 11/05/2015 | | Results for this | | OF OUTSIDE FILMS | e | 2:52 PM | | procedure are in the | | | | PST | | results section. | + +--------+ + + + documented in this encounter Results ECHO Interpretation of Outside Films (11/05/2015 2:52 PM PST) + + | Specimen | + + | | + + + + + | Impressions | Performed At | + + + | 1. See Dictation 2. Suggestive/consistant with CAD. Large apical | | | area of akinesis, Grade 1 diastolic abnormality, LVEF 35-40%. | | | LA/RA/RV NML. 3. Mild MR, trace TR. | | + + + + + + | Narrative | Performed At | + + + | Patient Name: Alondra Caballero Date of : 1970 | | | Performing Physician: Josué Colby DO | | | | | | INDICATIONS CKD, CHF CONCLUSIONS 1. | | | See Dictation 2. Suggestive/consistant with CAD. Large apical area | | | of akinesis, Grade 1 diastolic abnormality, LVEF 35-40%. LA/RA/RV | | | NML. 3. Mild MR, trace TR. FINDINGS -------- ECG rhythm: Sinus | | | rhythm. ECG rhythm: Resting tachycardia (HR>100bpm). Study: This was | | | a technically adequate study. Left Ventricle: Overall left | | | ventricular systolic function is moderately impaired with, an EF | | | between 35 - 40 %. Left Ventricle: The left ventricle cavity size is | | | normal. Left Ventricle: Left ventricular wall thickness is normal. | | | Left Ventricle: The diastolic filling pattern indicates impaired | | | relaxation consistent with mild dysfunction (Grade I). Right | | | Ventricle: The right ventricle is normal in size and function. Left | | | Atrium: The left atrium is normal in size. Right Atrium: The right | | | atrium is normal in size. Aortic Valve: The aortic valve is | | | trileaflet, and appears anatomically normal. No aortic stenosis or | | | regurgitation. Mitral Valve: Mitral valve is thickened with nodular | | | degeneration. Mitral Valve: Mild mitral regurgitation is present. | | | Mitral Valve: Mild mitral annular calcification present. Tricuspid | | | Valve: The tricuspid valve appears structurally normal. Tricuspid | | | Valve: Trace tricuspid regurgitation present. Pulmonic Valve: | | | Pulmonic valve appears structurally normal. Pericardium: There is no | | | pericardial effusion. IVC/Hepatic Veins: The IVC is small (<1.5cm) | | | and collapses with sniff, consistent with central venous pressures of | | | 0-5mmHg. MEASUREMENTS LVEF MOD A2C: 47.68 % SV | | | MOD A2C: 61.97 ml LVEF MOD A4C: 32.55 % SV MOD A4C: 30.83 | | | ml EF Biplane: 40.94 % LVEDV MOD BP: 110.71 ml LVESV MOD BP: | | | 65.38 ml LVEDV MOD A2C: 129.97 ml LVLd A2C: 8.22 cm LVEDV | | | MOD A4C: 94.70 ml LVLd A4C: 8.32 cm LVESV MOD A2C: 67.99 ml | | | LVLs A2C: 7.65 cm LVESV MOD A4C: 63.87 ml LVLs A4C: 7.40 | | | cm Sas Analyst: TREVER Authenticated by: Josué Colby DO Report | | | Date/Time: -- 66_[id number]:10:50 | | + + + + + | Procedure Note | + + | Marcelo Matias Conversion - 05/10/2019 8:09 PM PDT Patient Name: Jeovanny Caballero of | | : 1970 Performing Physician: Josué Colby | | DO INDICATIONS C | | KD, CHF CONCLUSIONS 1. See Dictation2. Suggestive/consistant with CAD. Large | | apical area of akinesis, Grade 1 diastolic abnormality, LVEF 35-40%. LA/RA/RV NML. 3. | | Mild MR, trace TR. FINDINGS--------ECG rhythm: Sinus rhythm.ECG rhythm: Resting | | tachycardia (HR>100bpm).Study: This was a technically adequate study.Left Ventricle: | | Overall left ventricular systolic function is moderately impaired with, an EF between 35 | | - 40 %.Left Ventricle: The left ventricle cavity size is normal.Left Ventricle: Left | | ventricular wall thickness is normal.Left Ventricle: The diastolic filling pattern | | indicates impaired relaxation consistent with mild dysfunction (Grade I).Right | | Ventricle: The right ventricle is normal in size and function.Left Atrium: The left | | atrium is normal in size.Right Atrium: The right atrium is normal in size.Aortic Valve: | | The aortic valve is trileaflet, and appears anatomically normal. No aortic stenosis or | | regurgitation.Mitral Valve: Mitral valve is thickened with nodular degeneration.Mitral | | Valve: Mild mitral regurgitation is present.Mitral Valve: Mild mitral annular | | calcification present.Tricuspid Valve: The tricuspid valve appears structurally | | normal.Tricuspid Valve: Trace tricuspid regurgitation present.Pulmonic Valve: Pulmonic | | valve appears structurally normal.Pericardium: There is no pericardial | | effusion.IVC/Hepatic Veins: The IVC is small (<1.5cm) and collapses with sniff, | | consistent with central venous pressures of 0-5mmHg. MEASUREMENTS LVEF MOD | | A2C: 47.68 %SV MOD A2C: 61.97 mlLVEF MOD A4C: 32.55 %SV MOD A4C: 30.83 mlEF | | Biplane: 40.94 %LVEDV MOD BP: 110.71 mlLVESV MOD BP: 65.38 mlLVEDV MOD A2C: | | 129.97 mlLVLd A2C: 8.22 cmLVEDV MOD A4C: 94.70 mlLVLd A4C: 8.32 cmLVESV MOD A2C: | | 67.99 mlLVLs A2C: 7.65 cmLVESV MOD A4C: 63.87 mlLVLs A4C: 7.40 cm Sas Analyst: | | DBSAuthenticated by: Josué Howard Date/Time: -- [id number]:10:50 | | IMPRESSION: 1. See Dictation2. Suggestive/consistant with CAD. Large apical area of | | akinesis, Grade 1 diastolic abnormality, LVEF 35-40%. LA/RA/RV NML. 3. Mild MR, trace | | TR. | |Aortic Valve: The aortic valve is trileaflet, and appears anatomically normal. No aortic st enosis or regurgitation. 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 | |Mitral Valve: Mild mitral regurgitation is present. | |Mitral Valve: Mild mitral annular calcification present. | |Tricuspid Valve: The tricuspid valve appears structurally normal. | |Tricuspid Valve: Trace tricuspid regurgitation present. | |Pulmonic Valve: Pulmonic valve appears structurally normal. | |Pericardium: There is no pericardial effusion. | |IVC/Hepatic Veins: The IVC is small (<1.5cm) and collapses with sniff, consistent with cent ral venous pressures of 0-5mmHg. | | | |MEASUREMENTS | | | |LVEF MOD A2C: 47.68 % | |SV MOD A2C: 61.97 ml | |LVEF MOD A4C: 32.55 % | |SV MOD A4C: 30.83 ml | |EF Biplane: 40.94 % | |LVEDV MOD BP: 110.71 ml | |LVESV MOD BP: 65.38 ml | |LVEDV MOD A2C: 129.97 ml | |LVLd A2C: 8.22 cm | |LVEDV MOD A4C: 94.70 ml | |LVLd A4C: 8.32 cm | |LVESV MOD A2C: 67.99 ml | |LVLs A2C: 7.65 cm | |LVESV MOD A4C: 63.87 ml | |LVLs A4C: 7.40 cm | | | |Sas Analyst: DBS | |Authenticated by: Josué Colby DO | |Report Date/Time: -- [id number]:10:50 | | | |IMPRESSION: | |1. See Dictation | |2. Suggestive/consistant with CAD. Large apical area of akinesis, Grade 1 diastolic abnorm ality, LVEF 35-40%. LA/RA/RV NML. 3. Mild MR, trace TR. | + + documented in this encounter Visit Diagnoses Not on filedocumented in this encounter"
--- OUTSIDE RECORDS SUMMARY | ~2019-10-02 | XMS | Encounter Summary ---
Demographics + + + | Address | [address] | | | [place] [address] | + + + | Home Phone | | + + + | Preferred Language | Unknown | + + + | Marital Status | Single | + + + | Uatsdin Affiliation | UNK | + + + | Race | White | + + + | Ethnic Group | Not or | + + + Author + + + | Author | [facility] | + + + | Organization | [facility] | + + + | Address | Unknown | + + + | Phone | Unavailable | + + + Support + + +---------+ + | Name | Relationship | Address | Phone | + + +---------+ + | Valentine Qiu | ECON | Unknown | | + + +---------+ + Care Team Providers + +------+ + | Care Vamp Liner Name | Role | Phone | + +------+ + | Ifeanyi Call MD | PCP | | + +------+ + Encounter Details +--------+ + + + + | Date | Type | Department | Care Team | Description | +--------+ + + + + | 09/29/ | Document-Sc | [facility] | Danielito Crockett MD,PhD | | | 2018 | anned | [facility] | [address] | | | | at [place] [address] | [address] | | | | | [facility] | [place], [place] | | | | | Mailcode: [facility] | [address] | | | | | [place] [address] | [phone] | | | | | [phone] | | | +--------+ + + + + Social History + +-------+ +--------+------+ | Tobacco Use | Types | Packs/Day | Years | Date | | | | | Used | | + +-------+ +--------+------+ | Former Smoker | | | | | + +-------+ +--------+------+ + + | Comments: smoked 15 years quit 09/21/2015 | + + + + + | Sex Assigned [...]
--- OUTSIDE RECORDS SUMMARY | ~2019-10-02 | XMS | Encounter Summary ---
Demographics + + + | Address | [address] | | | [place] [address] | + + + | Home Phone | | + + + | Preferred Language | Unknown | + + + | Marital Status | Single | + + + | Caodaism Affiliation | 1041 | + + + | Race | Unknown | + + + | Ethnic Group | Unknown | + + + Author + + + | Author | [facility] | | | and [place] | + + + | Organization | [facility] | | | and [place] | + + + | Address | Unknown | + + + | Phone | Unavailable | + + + Support + + + + + | Name | Relationship | Address | Phone | + + + + + | Kyaw Woodson | ECON | [place], [place] | | + + + + + | Barbara Cabrera | ECON | Unknown | | + + + + + | Dimple Hathaway | ECON | Unknown | | + + + + + Care Team Providers + +------+ + | Care Real Estate Professor Name | Role | Phone | + +------+ + | Jennyfer Gresham MD | PCP | | + +------+ + Reason for Visit + + + | Reason | Comments | + + + | Establish Care | Sooner appointment | + + + Encounter Details +--------+ + + + + | Date | Type | Department | Care Team | Description | +--------+ + + + + | 08/29/ | Telephone | [facility] | Jerry Yuen, | Establish Care | | 2019 | | [facility] | MD [address] | (Sooner appointment) | | | | [facility] | | | | | [address] | [place] [address] | | | | | [place], [place] | [phone] | | | | | [address] | | | | | | [phone] | | | +--------+ + + + [...] [address] | | | | | | [address] | | | | | | | | +--------+ + + + + | 10/10/ | Procedure | Cardiology | | | | 2019 | visit | | | | +--------+ + + + + | 10/17/ | Office | Family Medicine | Jrery Yuen, | | | 2019 | Visit | | [address] | | | | | | [address] | | | | | | [place] [address] | | | | | | [phone] | | | | | | | | +--------+ + + + + | 11/25/ | Office | Nephrology | Kei Arthur MD | | | 2020 | Visit | | [address] [facility] | | | | | | [address] [place] | | | | | | [address] | | | | | | | | +--------+ + + + + documented as of this encounter Visit Diagnoses Not on filedocumented in this encounter"
--- OUTSIDE RECORDS SUMMARY | ~2019-10-02 | XMS | Encounter Summary ---
Demographics + + + | Address | [address] | | | [place] [address] | + + + | Home Phone | | + + + | Preferred Language | Unknown | + + + | Marital Status | Single | + + + | Cheondoism Affiliation | UNK | + + + | Race | White | + + + | Ethnic Group | Not or | + + + Author + + + | Author | [facility] | + + + | Organization | [facility] | + + + | Address | Unknown | + + + | Phone | Unavailable | + + + Support + + +---------+ + | Name | Relationship | Address | Phone | + + +---------+ + | Valentine Qiu | ECON | Unknown | | + + +---------+ + Care Team Providers + +------+ + | Care Squirrel Worker Name | Role | Phone | + +------+ + PCP | Unavailable | + +------+ + Encounter Details +--------+ + + + + | Date | Type | Department | Care Team | Description | +--------+ + + + + | 01/04/ | Emergency | [facility] Emergency | | | | 2015 | | Department [address] | | | | | | [address] | | | | | | [facility] | | | | | | [place], [place] | | | | | | [address] | | | | | | [phone] | | | +--------+ + + + [...] + + + +---------+ + + | albuterol (PROAIR | Inhale by mouth. | | 0 | 10/20/20 | | | HFA) 90 | | | | 14 | | | mcg/actuation | | | | | | | inhalation HFA | | | | | | | aerosol inhaler | | | | | | + + + +---------+ + + documented as of this encounter Plan of Treatment Not on filedocumented as of this encounter Visit Diagnoses Not on filedocumented in this encounter"
--- OUTSIDE RECORDS SUMMARY | ~2019-10-02 | XMS | Encounter Summary ---
Demographics + + + | Address | [address] | | | [place] [address] | + + + | Home Phone | | + + + | Preferred Language | Unknown | + + + | Marital Status | Single | + + + | Sabianist Affiliation | UNK | + + + | Race | White | + + + | Ethnic Group | Not or | + + + Author + + + | Author | [facility] | + + + | Organization | [facility] | + + + | Address | Unknown | + + + | Phone | Unavailable | + + + Support + + +---------+ + | Name | Relationship | Address | Phone | + + +---------+ + | Valentine Qiu | ECON | Unknown | | + + +---------+ + Care Team Providers + +------+ + | Care Refrigeration Service Technician Name | Role | Phone | + +------+ + | Ifeanyi Call MD | PCP | | + +------+ + Encounter Details +--------+ + + + + | Date | Type | Department | Care Team | Description | +--------+ + + + + | 03/31/ | Document-Sc | [facility] | Danielito Crockett MD,PhD | | | 2016 | anned | [facility] | [address] | | | | | at [place] [address] | [address] | | | | | [facility] | [place], [place] | | | | | Mailcode: [facility] | [address] | | | | | [place] [address] | [phone] | | | | | [phone] | | | +--------+ + + + [...]
--- OUTSIDE RECORDS SUMMARY | ~2019-10-02 | XMS | Encounter Summary ---
Demographics + + + | Address | [address] | | | [place] [address] | + + + | Home Phone | | + + + | Preferred Language | Unknown | + + + | Marital Status | Single | + + + | Samaritan Affiliation | 1041 | + + + | Race | Unknown | + + + | Ethnic Group | Unknown | + + + Author + + + | Author | [facility] | | | and [place] | + + + | Organization | [facility] | | | and [place] | + + + | Address | Unknown | + + + | Phone | Unavailable | + + + Support + + + + + | Name | Relationship | Address | Phone | + + + + + | Kyaw Woodson | ECON | [place], [place] | | + + + + + | Barbara Cabrera | ECON | Unknown | | + + + + + | Dimple Hathaway | ECON | Unknown | | + + + + + Care Team Providers + +------+ + | Care Dial Marker Name | Role | Phone | + +------+ + | No, Physician | PCP | Unavailable | + +------+ + Encounter Details +--------+ + + + + | Date | Type | Department | Care Team | Description | +--------+ + + + + | 03/09/ | Orders Only | [facility] | Conversion | | | 2017 | | NEPHROLOGY [place] | Transaction, | | | | | [address] | Provider Unknown | | | | | [address] [facility] [place] | | | | | | [address] | (Fax) | | | | | [phone] | | | +--------+ + + + [...] [place] | | | | | | [id number] | | | | | | | [...] | | | | | [place] [address] | | | | | | [phone] | | | | | | | | +--------+ + + + + | 11/25/ | Office | Nephrology | Kei Arthur MD | | | 2019 | Visit | | [address] [facility] | | | | | | [address] [place], [place] | | | | | | [address] | | | | | | | | +--------+ + + + + documented as of this encounter Procedures + +--------+ + + + | Procedure Name | Priori | Date/Time | Associated Diagnosis | Comments | | | ty | | | | + +--------+ + + + | LIPID PANEL | Routin | 03/09/2018 | | Results for this | | | e | 7:19 AM | | procedure are in the | | | | PDT | | results section. | + +--------+ + + + | HEMOGLOBIN A1C | Routin | 03/09/2018 | | Results for this | | | e | 7:19 AM | | procedure are in the | | | | PDT | | results section. | + +--------+ + + + documented in this encounter Results Hemoglobin A1C (03/09/2018 7:19 AM PDT) + +-------+ + + + | Component | Value | Ref Range | Performed | Pathologist | | | | | At | Signature | + +-------+ + + + | Hemoglobin | 7.5 | % | EXTERNAL | | | [...] | + +---------+ + + Lipid Panel (03/09/2018 7:19 AM PDT) + +---------+ + + + | Component | Value | Ref Range | Performed | Pathologist | | | | | At | Signature | + +---------+ + + + | Cholesterol | 114 | mg/dL | EXTERNAL | | | | | | LAB | | + +---------+ + + + | Triglycerid | 475 (A) | 30 - 150 mg/dL | EXTERNAL | | | es | | | LAB | | + +---------+ + + + | HDL | 22.8 | mg/dl | EXTERNAL | | | | | | LAB | | + +---------+ + + + | LDL | | mg/dL | EXTERNAL | | [...] +---------+ + + + | Chol/HDL | 5.0 | | EXTERNAL | | | Ratio | | | LAB | | + +---------+ + + + | VLDL | | mg/dL | EXTERNAL | | | | | | LAB | | + +---------+ + + + | Non HDL | 91 | | EXTERNAL | | | Chol. [...]
--- OUTSIDE RECORDS SUMMARY | ~2019-10-02 | XMS | Encounter Summary ---
Demographics + + + | Address | [address] | | | [place] [address] | + + + | Home Phone | | + + + | Preferred Language | Unknown | + + + | Marital Status | Single | + + + | Mormonism Affiliation | 1041 | + + + | Race | Unknown | + + + | Ethnic Group | Unknown | + + + Author + + + | Author | [facility] | | | and [place] | + + + | Organization | [facility] | | | and [place] | + + + | Address | Unknown | + + + | Phone | Unavailable | + + + Support + + + + + | Name | Relationship | Address | Phone | + + + + + | Kyaw Woodson | ECON | [place], [place] | | + + + + + | Barbara Cabrera | ECON | Unknown | | + + + + + | Dimple Hathaway | ECON | Unknown | | + + + + + Care Team Providers + +------+ + | Care Resident Program Specialist Name | Role | Phone | + +------+ + | Daniel Land NP | PCP | | + +------+ + Encounter Details +--------+ + + + + | Date | Type | Department | Care Team | Description | +--------+ + + + + | 08/17/ | Orders Only | [facility] | Kei Arthur MD | | | 2016 | | NEPHROLOGY [facility] | [address] [place] | | | | | [address] [place] | [address] [place], [place] | | | | | [address] [place], [place] | [id number] | | | | | [address] | | | | | | [phone] | | | +--------+ + + + [...] [address] | | | | | | [facility] | | | | | | [place] | | | | | | [address] | | | | | | | | +--------+ + + + + | 10/10/ | Procedure | Cardiology | | | | 2019 | visit | | | | +--------+ + + + + | 10/17/ | Office | Family Medicine | Jerry Yuen, | | | 2019 | Visit | | [address] | | | | | | [address] | | | | | | [place] [address] | | | | | | [phone] | | | | | | | | +--------+ + + + + | 11/25/ | Office | Nephrology | Kei Arthur MD | | | 2019 | Visit | | [address] [facility] | | | | | | [address] [place] | | | | | | [address] | | | | | | | | +--------+ + + + + documented as of this encounter Procedures + +--------+ + + + | Procedure Name | Priori | Date/Time | Associated Diagnosis | Comments | | | ty | | | | + +--------+ + + + | EXTERNAL LAB: CBC | Routin | 08/17/2017 | | Results for this | | | e | 8:40 AM | | procedure are in the | | | | PST | | results section. | + +--------+ + + + | URINALYSIS WITH | Routin | 08/17/2017 | | Results for this | | MICROSCOPIC IF | e | 8:40 AM | | procedure are in the | | INDICATED | | PST | | results section. | + +--------+ + + + | VITAMIN D, | Routin | 08/17/2017 | | Results for this | | DEFICIENCY SCREEN | e | 8:40 AM | | procedure are in the | | (25-HYDROXY) | | PST | | results section. | + +--------+ + + + | PROTEIN/CREATININE | Routin | 08/17/2017 | | Results for this | | RATIO, URINE | e | 8:40 AM | | procedure are in the | | | | PST | | results section. | + +--------+ + + + | URIC ACID | Routin | 08/17/2017 | | Results for this | | | e | 8:40 AM | | procedure are in the | | | | PST | | results section. | + +--------+ + + + | PARATHYROID HORMONE, | Routin | 08/17/2017 | | Results for this | | INTACT | e | 8:40 AM | | procedure are in the | | | | PST | | results section. | + +--------+ + + + | MAGNESIUM | Routin | 08/17/2017 | | Results for this | | | e | 8:40 AM | | procedure are in the | | | | PST | | results section. | + +--------+ + + + | FERRITIN | Routin | 08/17/2017 | | Results for this | | | e | 8:40 AM | | procedure are in the | | | | PST | | results section. | + +--------+ + + + | RENAL FUNCTION PANEL | Routin | 08/17/2017 | | Results for this | | | e | 8:40 AM | | procedure are in the | | | | PST | | results section. | + +--------+ + + + documented in this encounter Results Protein/Creatinine Ratio, Urine (08/17/2017 8:40 AM PST) + + + + + + | Component | Value | Ref Range | Performed | Pathologist | | | | | At | Signature | + + + + + + | Protein/Cre | 365.9 (A) | 0 - 150 | EXTERNAL [...] + + Vitamin D, Deficiency Screen (25-Hydroxy) (08/17/2017 8:40 AM PST) + +-------+ + + + | Component | Value | Ref Range | Performed | Pathologist | | | | | At | Signature | + +-------+ + + + | Vit D, | 45 | 30 - 100 | EXTERNAL | [...] | | | + +---------+ + + Urinalysis with Microscopic if Indicated (08/17/2017 8:40 AM PST) + + + + + + | Component | Value | Ref Range | Performed | Pathologist | | | | | At | Signature | + + + + + + | Color | Yellow | | EXTERNAL | | | | | | LAB | | + + + + + + | Clarity | Clear | | EXTERNAL | | | | | | LAB | | + + + + + + | Spec Grav, | 1.008 | 1.005 - 1.030 | EXTERNAL | | | Fluid | | | LAB | | + + + + + + | Leukocyte | Comment: 25 | | EXTERNAL | | | Esterase, [...] + + + + + + | Total | Negative | | EXTERNAL | | | Protein | | | LAB | | + [...] Performed At | + + + | WBC's: 30 H Bacteria: 1+ | EXTERNAL LAB | + + + + +---------+ + + | Performing | Address | City/State/Zipcode | Phone Number | | Organization | | | | + +---------+ + + | EXTERNAL LAB | | | | + +---------+ + + External Lab: CBC (08/17/2017 8:40 AM PST) + + + + + + | Component | Value | Ref Range | Performed | Pathologist | | | | | At | Signature | + + + + + + | WBC | 11.0 | 4.5 - 11.0 10 | EXTERNAL | | | | | | LAB | | + + + + + + | RED CELL | 3.52 (A) | 3.8 - 5.1 10 | EXTERNAL | | | COUNT | | | LAB | | + + + + + + | Hgb | 10.7 (A) | 12.0 - 16.0 | EXTERNAL | | | | | g/dL | LAB | | + + + + + + | Hematocrit, | 31.5 (A) | 35 - 45 % | EXTERNAL | | | POC | | | LAB | | + + + + + + | MCV | 90.3 | 81 - 99 fL | EXTERNAL | | | | | | LAB | | + + + + + + | MCH | 30 | 27 - 33 pg | EXTERNAL | | | | | | LAB | | + + + + + + | MCHC | 34 | 30 - 36 g/dL | EXTERNAL | | | | | | LAB | | + + + + + + | Platelet | 283 | 140 - 440 K/ L | EXTERNAL | | | Count | | | LAB | | | Plasma | | | | | + + + + + + | RDW-CV | 15.0 | 10.5 - 15.0 % | EXTERNAL [...] | + +---------+ + + Uric Acid (08/17/2017 8:40 AM PST) + +---------+ + + + | Component | Value | Ref Range | Performed | Pathologist | | | | | At | Signature | + +---------+ + + + | Uric Acid | 8.9 (A) | 2.3 - 6.6 | EXTERNAL [...] + +---------+ + + Parathyroid Hormone, Intact (08/17/2017 8:40 AM PST) + + + + + + | Component | Value | Ref Range | Performed | Pathologist | | | | | At | Signature | + + + + + + | PTH INTACT | 170.6 (A) | 15 - 65 pg/mL | EXTERNAL | | | | | [...] | | + +---------+ + + Magnesium (08/17/2017 8:40 AM PST) + +-------+ + + + | Component | Value | Ref Range | Performed | Pathologist | | | | | At | Signature | + +-------+ + + + | Magnesium | 2.0 | 1.7 - 2.5 mg/dL | EXTERNAL [...] | | + +---------+ + + Ferritin (08/17/2017 8:40 AM PST) + + + + + + | Component | Value | Ref Range | Performed | Pathologist | | | | | At | Signature | + + + + + + | Ferritin, | 599.9 (A) | 13 - 150 ng/mL | [...] + +---------+ + + Renal Function Panel (08/17/2017 8:40 AM PST) + + + + + + | Component | Value | Ref Range | Performed | Pathologist | | | | | At | Signature | + + + + + + | Glucose, | 151 (A) | 70 - 100 mg/dL | EXTERNAL | | | Fasting | | | LAB | | + + + + + + | BUN | 52 (A) | 6 - 23 mg/dL | EXTERNAL | | | | | | LAB | | + + + + + + | Creatinine | 2.62 (A) | 0.6 - 1.35 | EXTERNAL | | | | | mg/dL | LAB | | + + + + + + | PHOSPHORUS | | mg/dL | EXTERNAL | | | | | | LAB | | + + + + + + | Albumin | 4.1 | 3.5 - 5.0 | EXTERNAL | | | | | | LAB | | + + + + + + | Na | 138 | 132 - 143 | EXTERNAL | | | | | mmol/L | LAB | | + + + + + + | K | 3.9 | 3.6 - 5.1 | EXTERNAL | | | | | mmol/L | LAB | | + + + + + + | Cl | 96 | 95 - 112 mmol/L | EXTERNAL | | | | | | LAB | | + + + + + + | CO2 | 23 | 19 - 31 mmol/L | EXTERNAL | | | | | | LAB | | + + + + + + | Anion Gap | 22.9 (A) | 7 - 21 mmol/L | EXTERNAL | | | | | | LAB | | + + + + + + | eGFR if not | | | EXTERNAL | | | | | | LAB | | | ESTONIAN | | | | | + + + + + + | Phosphorus, | 4.6 | 2.5 - 5.0 | EXTERNAL | | | Inorganic | | | LAB | | + + + + + + | BUN/Creatin | 19.8 | 6.0 - 28.6 | EXTERNAL | | | ine Ratio | | | LAB | | + + + + + + | Calcium | 9.6 | 8.4 - 10.2 | EXTERNAL | | | | | mg/dL | LAB | | + + + + + + | Estimated | 20 (A) | 60 mg/dL | EXTERNAL | | | GFR [...]
--- OUTSIDE RECORDS SUMMARY | ~2019-10-02 | XMS | Encounter Summary ---
Demographics + + + | Address | [address] | | | [place] [address] | + + + | Home Phone | | + + + | Preferred Language | Unknown | + + + | Marital Status | Single | + + + | Orthodoxy Affiliation | 1041 | + + + | Race | Unknown | + + + | Ethnic Group | Unknown | + + + Author + + + | Author | [facility] | | | and [place] | + + + | Organization | [facility] | | | and [place] | + + + | Address | Unknown | + + + | Phone | Unavailable | + + + Support + + + + + | Name | Relationship | Address | Phone | + + + + + | Kyaw Woodson | ECON | [place], [place] | | + + + + + | Barbara Cabrera | ECON | Unknown | | + + + + + | Dimple Hathaway | ECON | Unknown | | + + + + + Care Team Providers + +------+ + | Care Sales Promotion Officer Name | Role | Phone | + +------+ + | Jennyfer Gresham MD | PCP | | + +------+ + Encounter Details +--------+ + + + + | Date | Type | Department | Care Team | Description | +--------+ + + + + | 05/19/ | Orders Only | [facility] | Conversion | | | 2015 | | CONVERSION [address] | Transaction, | | | | | [address] | Provider Unknown | | | | | [place], [place] | [phone] | | | | | [address] | | | | | | [phone] | | | +--------+ + + + [...] [address] | | | | | | [facility] | | | | | | [address] [place] | | | | | | [phone] | | | | | | | [...] | | | | | [place] [address] | | | | | | [phone] | | | | | | | | +--------+ + + + + | 11/25/ | Office | Nephrology | Kei Arthur MD | | | 2019 | Visit | | [address] [facility] | | | | | | [address] [place] | | | | | | [phone] | | | | | | | | +--------+ + + + + documented as of this encounter Visit Diagnoses Not on filedocumented in this encounter"
--- OUTSIDE RECORDS SUMMARY | ~2019-10-02 | XMS | Encounter Summary ---
Demographics + + + | Address | [address] | | | [place] [address] | + + + | Home Phone [...] + | Organization | [facility] | | | and [place] | + + + | Address | Unknown | + + + | Phone | Unavailable | + + + Support + + + + + | Name | Relationship | Address | Phone | + + + + + | Kyaw Woodson | ECON | [place], [place] | | + + + + + | Barbara Carbera | ECON | Unknown | | + + + + + | Dimple Hathaway | ECON | Unknown | | + + + + + Care Team Providers + +------+ + | Care Commercial Pest Control Technician Name | Role | Phone | + +------+ + | Jennyfer Gresham MD | PCP | | + +------+ + Encounter Details +--------+ + + + + | Date | Type | Department | Care Team | Description | +--------+ + + + + | 07/31/ | Orders Only | [facility] | Conversion | | | 2018 | | CONVERSION [address] | Transaction, | | | | | [address] | Provider Unknown | | | | | [place], [place] | [phone] | | | | | [address] | | | | | | [phone] | | | +--------+ + + + [...] [address] | | | | | | [facility] | | | | | | [place] | | | | | | [phone] | | | | | | | [...] | | | | | [place] [address] | | | | | | [phone] | | | | | | | | +--------+ + + + + | 11/25/ | Office | Nephrology | Kei Arthur MD | | | 2019 | Visit | | [address] [facility] | | | | | | [address] [place] | | | | | | [phone] | | | | | | | | +--------+ + + + + documented as of this encounter Visit Diagnoses Not on filedocumented in this encounter"
--- OUTSIDE RECORDS SUMMARY | ~2019-10-02 | XMS | Encounter Summary ---
Demographics + + + | Address | [address] | | | [place] [address] | + + + | Home Phone | | + + + | Preferred Language | Unknown | + + + | Marital Status | Single | + + + | Sikh Affiliation | 1041 | + + + | Race | Unknown | + + + | Ethnic Group | Unknown | + + + Author + + + | Author | [facility] | | | and [place] | + + + | Organization | [facility] | | | and [place] | + + + | Address | Unknown | + + + | Phone | Unavailable | + + + Support + + + + + | Name | Relationship | Address | Phone | + + + + + | Kyaw Woodson | ECON | [place], [place] | | + + + + + | Barbara Cabrera | ECON | Unknown | | + + + + + | Dimple Hathaway | ECON | Unknown | | + + + + + Care Team Providers + +------+ + | Care Clerical Secretary Name | Role | Phone | + +------+ + | No, Physician | PCP | Unavailable | + +------+ + Encounter Details +--------+ + + + + | Date | Type | Department | Care Team | Description | +--------+ + + + + | 11/17/ | Orders Only | [facility] | Conversion | | | 2017 | | NEPHROLOGY [place] | Transaction, | | | | | [address] | Provider Unknown | | | | | [address] [place], [place] | | | | | | [address] | (Fax) | | | | | [phone] | | | +--------+ + + + [...] | | | | | | [address] | | | | | | [phone] | | | | | | | [...] | | | | | [place] [address] | | | | | | [phone] | | | | | | | | +--------+ + + + + | 11/25/ | Office | Nephrology | Kei Arthur MD | | | 2019 | Visit | | [address] [facility] | | | | | | [address] [place], [place] | | | | | | [address] | | | | | | | | +--------+ + + + + documented as of this encounter Procedures + +--------+ + + + | Procedure Name | Priori | Date/Time | Associated Diagnosis | Comments | | | ty | | | | + +--------+ + + + | IRON AND IRON | Routin | 11/17/2017 | | Results for this | | BINDING CAPACITY | e | 7:15 AM | | procedure are in the | | | | PST | | results section. | + +--------+ + + + | TRANSFERRIN | Routin | 11/17/2017 | | Results for this | | | e | 7:15 AM | | procedure are in the | | | | PST | | results section. | + +--------+ + + + documented in this encounter Results Iron and Iron Binding Capacity (11/17/2017 7:15 AM PST) + +---------+ + + + | Component | Value | Ref Range | Performed | Pathologist | | | | | At | Signature | + +---------+ + + + | Iron | 96.79 | 37 - 160 | EXTERNAL | | | | | | LAB | | + +---------+ + + + | Iron | 22.6 | 20 - 55 | EXTERNAL | | | Saturation | | | LAB | | + +---------+ + + + | TIBC | 428 (A) | 245 - 400 | EXTERNAL [...] | | + +---------+ + + Transferrin (11/17/2017 7:15 AM PST) + +--------+ + + + | Component | Value | Ref Range | Performed | Pathologist | | | | | At | Signature | + +--------+ + + + | TRANSFERRIN | 305.86 | 192 - 382 | EXTERNAL | | | | | | LAB | | + +--------+ + + + + + | Specimen [...]
--- OUTSIDE RECORDS SUMMARY | ~2019-10-02 | XMS | Encounter Summary ---
Demographics + + + | Address | [address] | | | [place] [address] | + + + | Home Phone | | + + + | Preferred Language | Unknown | + + + | Marital Status | Single | + + + | Presybeterian Affiliation | 1041 | + + + | Race | Unknown | + + + | Ethnic Group | Unknown | + + + Author + + + | Author | [facility] | | | and [place] | + + + | Organization | [facility] | | | and [place] | + + + | Address | Unknown | + + + | Phone | Unavailable | + + + Support + + + + + | Name | Relationship | Address | Phone | + + + + + | Kyaw Woodson | ECON | [place], [place] | | + + + + + | Barbara Cabrera | ECON | Unknown | | + + + + + | Dimple Hathaway | ECON | Unknown | | + + + + + Care Team Providers + +------+ + | Care Bunk House Worker Name | Role | Phone | + +------+ + | No, Physician | PCP | Unavailable | + +------+ + Reason for Visit + + + | Reason | Comments | + + + | Referral | | + + + Encounter Details +--------+ + + + + | Date | Type | Department | Care Team | Description | +--------+ + + + + | 06/07/ | Telephone | [facility] | Waldemar Smith, | Referral | | 2019 | | ENDOCRINOLOGY [address] | MD [address] | | | | | [address] | [address] [place], | | | | | [place], [place] | [place] [address] | | | | | [address] | [phone] | | | | | [phone] | | | +--------+ + + + [...] [address] | | | | | | [address] | | | | | | | [...] | | | | | [place] [address] | | | | | | [phone] | | | | | | | | +--------+ + + + + | 11/25/ | Office | Nephrology | Kei Arthur MD | | | 2019 | Visit | | [address] [facility] | | | | | | [address] [place] | | | | | | [address] | | | | | | | | +--------+ + + + + documented as of this encounter Visit Diagnoses Not on filedocumented in this encounter"
--- OUTSIDE RECORDS SUMMARY | ~2019-10-02 | XMS | Encounter Summary ---
Demographics + + + | Address | [address] | | | [place] [address] | + + + | Home Phone | | + + + | Preferred Language | Unknown | + + + | Marital Status | Single | + + + | Jain Affiliation | UNK | + + + | Race | White | + + + | Ethnic Group | Not or | + + + Author + + + | Author | [facility] | + + + | Organization | [facility] | + + + | Address | Unknown | + + + | Phone | Unavailable | + + + Support + + +---------+ + | Name | Relationship | Address | Phone | + + +---------+ + | Valentine Qiu | ECON | Unknown | | + + +---------+ + Care Team Providers + +------+ + | Care Java Analyst Name | Role | Phone | + +------+ + | Ifeanyi Call MD | PCP | | + +------+ + Encounter Details +--------+ + + + + | Date | Type | Department | Care Team | Description | +--------+ + + + + | 12/23/ | Document-Sc | [facility] | Danielito Crockett MD,PhD | | | 2017 | anned | [facility] | [address] | | | | | at [place] [address] | [address] | | | | | [facility] | [place], [place] | | | | | Mailcode: [facility] | [address] | | | | | [place] [address] | [phone] | | | | | [phone] | | | +--------+ + + + [...]
--- OUTSIDE RECORDS SUMMARY | ~2019-10-02 | XMS | Encounter Summary ---
Demographics + + + | Address | [address] | | | [place] [address] | + + + | Home Phone | | + + + | Preferred Language | Unknown | + + + | Marital Status | Single | + + + | Congregation Affiliation | UNK | + + + | Race | White | + + + | Ethnic Group | Not or | + + + Author + + + | Author | [facility] | + + + | Organization | [facility] | + + + | Address | Unknown | + + + | Phone | Unavailable | + + + Support + + +---------+ + | Name | Relationship | Address | Phone | + + +---------+ + | Valentine Qiu | ECON | Unknown | | + + +---------+ + Care Team Providers + +------+ + | Care Camera Machinist Name | Role | Phone | + +------+ + | Ifeanyi Call MD | PCP | | + +------+ + Encounter Details +--------+ + + + + | Date | Type | Department | Care Team | Description | +--------+ + + + + | 12/23/ | Results/Int | [facility] | Danielito Crockett MD,PhD | | | 2017 | erpretation | [facility] | [address] | | | | | at [place] [address] | Carrie [address]ria | | | | | [facility] | [place], [place] | | | | | Mailcode: [facility] | [address] | | | | | [place] [address] | [phone] | | | | | [phone] | | | +--------+ + + + [...] + + documented as of this encounter Progress Notes Danielito Crockett MD,PhD - 12/23/2016 10:57 PM PDT [facility] Fundus Photography Interpretation 12/23/2016 Color Clear media, normal disc, vessels, but pigment changes to the macula OU Autofluorescence (AF) 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 In addition, there was light scattering of microaneurysms througho ut the fundus OU. Spectral Domain OCT Interpretation 12/23/2016 Line scans showed RNFL mapping showed thinning OD and thinning OS. CFT (m) OD OS Wzgeiziig-ll-wlko Action 12/23/2016 Multifocal ERG Interpretation 12/23/2016 Amplitude Density Plot (P1) Latency Density Plot (P1) OD OS Central attenuation OU OD OS Central prolongation OU Amplitude Ring Average (P1) Latency Ring Average (P1) OD OS #1 49 nv/deg2 63 nv/deg2 attenuated, moderate attenuated, moderate #2 attenuated, moderate attenuated, moderate #3 attenuated, mild attenuated, mild #4 normal normal #5 normal normal #6 normal normal OD OS 30 ms 32 ms prolonged, mild prolonged, mild normal normal normal normal normal normal normal normal normal normal - This study of the regional macular photopic cone function demonstrated abnormal amplitude s and abnormal timing OU. - Thus, these multifocal ERG results are consistent with a moderate macular or cone dysfunc tion of the central area of fixation, which correlate with a maculopathy OU. Full Field ERG Interpretation 12/23/2016 Amplitude (b-wave) Implicit Time (b-wave) Scotopic OD OS OD OS Dim normal normal prolonged prolonged Bright normal normal normal normal Photopic OD OS OD OS Single normal normal normal normal 30 Hz attenuated, mild blink/noise artifact normal blink/noise artifact - This full field ERG showed normal amplitudes and abnormal implicit times of the angel-depen dent responses, as well as normal amplitudes and normal implicit times of the cone-dependent responses. - Isolated prolongation of scotopic dim responses are unspecific. - The results of the testing show that the diffuse retinal function is most likely normal, with only mild attenuation of the 30 Hz which is more indicative of a maculopathy. documented in this enc ounter Plan of Treatment Not on filedocumented as of this encounter Visit Diagnoses Not on filedocumented in this encounter"
--- OUTSIDE RECORDS SUMMARY | ~2019-10-02 | XMS | Encounter Summary ---
Demographics + + + | Address | [address] | | | [place] [address] | + + + | Home Phone | | + + + | Preferred Language | Unknown | + + + | Marital Status | Single | + + + | Restorationist Affiliation | 1041 | + + + | Race | Unknown | + + + | Ethnic Group | Unknown | + + + Author + + + | Author | [facility] | | | and [place] | + + + | Organization | [facility] | | | and [place] | + + + | Address | Unknown | + + + | Phone | Unavailable | + + + Support + + + + + | Name | Relationship | Address | Phone | + + + + + | Kyaw Woodson | ECON | [place], [place] | | + + + + + | Barbara Cabrera | ECON | Unknown | | + + + + + | Dimple Hathaway | ECON | Unknown | | + + + + + Care Team Providers + +------+ + | Care Skilled Labor Name | Role | Phone | + +------+ + | Daniel Land NP | PCP | | + +------+ + Encounter Details +--------+ + + + + | Date | Type | Department | Care Team | Description | +--------+ + + + + | 08/31/ | Orders Only | [facility] | Conversion | | | 2017 | | NEPHROLOGY [place] | Transaction, | | | | | [address] [facility] [address] | Provider Unknown | | | | | [address] | | | | | | [address] | (Fax) | | | | | [phone] | | | +--------+ + + + [...] [address] | | | | | | [facility] | | | | | | [place] | | | | | | [address] | | | | | | | [...] [address] | | | | | | [place] [address] | | | | | | [phone] | | | | | | | | +--------+ + + + + | 11/25/ | Office | Nephrology | Kei Arthur MD | | | 2019 | Visit | | [address] [facility] | | | | | | [address] [facility] | | | | | | [address] | | | | | | | | +--------+ + + + + documented as of this encounter Procedures + +--------+ + + + | Procedure Name | Priori | Date/Time | Associated Diagnosis | Comments | | | ty | | | | + +--------+ + + + | EXTERNAL LAB: CBC | Routin | 08/31/2017 | | Results for this | | | e | 9:30 AM | | procedure are in the | | | | PST | | results section. | + +--------+ + + + | RENAL FUNCTION PANEL | Routin | 08/31/2017 | | Results for this | | | e | 9:30 AM | | procedure are in the | | | | PST | | results section. | + +--------+ + + + documented in this encounter Results External Lab: [facility] (08/31/2017 9:30 AM PST) + + + + + + | Component | Value | Ref Range | Performed | Pathologist | | | | | At | Signature | + + + + + + | WBC | 10.1 | 4.5 - 11.0 10 | EXTERNAL | | | | | | LAB | | + + + + + + | RED CELL | 3.49 (A) | 3.8 - 5.1 10 | EXTERNAL | | | COUNT | | | LAB | | + + + + + + | Hgb | 10.4 (A) | 12.0 - 16.0 | EXTERNAL | | | | | g/dL | LAB | | + + + + + + | Hematocrit, | 32.2 (A) | 35 - 45 % | EXTERNAL | | | POC | | | LAB | | + + + + + + | MCV | 92.3 | 81 - 99 fL | EXTERNAL | | | | | | LAB | | + + + + + + | MCH | 30 | 27 - 33 pg | EXTERNAL | | | | | | LAB | | + + + + + + | MCHC | 32 | 30 - 36 g/dL | EXTERNAL | | | | | | LAB | | + + + + + + | Platelet | 286 | 140 - 440 K/ L | EXTERNAL | | | Count | | | LAB | | | Plasma | | | | | + + + + + + | RDW-CV | 14.9 | 10.5 - 15.0 % | EXTERNAL [...] + +---------+ + + Renal Function Panel (08/31/2017 9:30 AM PST) + + + + + + | Component | Value | Ref Range | Performed | Pathologist | | | | | At | Signature | + + + + + + | Glucose, | 288 (A) | 70 - 100 mg/dL | EXTERNAL | | | Fasting | | | LAB | | + + + + + + | BUN | 53 (A) | 6 - 23 mg/dL | EXTERNAL | | | | | | LAB | | + + + + + + | Creatinine | 2.88 (A) | 0.60 - 1.35 | EXTERNAL | | | | | mg/dL | LAB | | + + + + + + | PHOSPHORUS | | mg/dL | EXTERNAL | | | | | | LAB | | + + + + + + | Albumin | 3.7 | 3.5 - 5.0 | EXTERNAL | | | | | | LAB | | + + + + + + | Na | 135 | 132 - 143 | EXTERNAL | | | | | mmol/L | LAB | | + + + + + + | K | 4.6 | 3.6 - 5.1 | EXTERNAL | | | | | mmol/L | LAB | | + + + + + + | Cl | 96 | 95 - 112 mmol/L | EXTERNAL | | | | | | LAB | | + + + + + + | CO2 | 20 | 19 - 31 mmol/L | EXTERNAL | | | | | | LAB | | + + + + + + | Anion Gap | 23.6 (A) | 7 - 21 mmol/L | EXTERNAL | | | | | | LAB | | + + + + + + | eGFR if not | | | EXTERNAL | | | | | | LAB | | | INDIAN | | | | | + + + + + + | Phosphorus, | 3.9 | 2.5 - 5.0 | EXTERNAL | | | Inorganic | | | LAB | | + + + + + + | BUN/Creatin | 18.4 | 6.0 - 28.6 | EXTERNAL | | | ine Ratio | | | LAB | | + + + + + + | Calcium | 9.4 | 8.4 - 10.2 | EXTERNAL | | | | | mg/dL | LAB | | + + + + + + | Estimated | 18 (A) | 60 mg/dL | EXTERNAL | [...]
--- OUTSIDE RECORDS SUMMARY | ~2019-10-02 | XMS | Encounter Summary ---
Demographics + + + | Address | [address] | | | [place] [address] | + + + | Home Phone | | + + + | Preferred Language | Unknown | + + + | Marital Status | Single | + + + | Scientology Affiliation | 1041 | + + + | Race | Unknown | + + + | Ethnic Group | Unknown | + + + Author + + + | Author | [facility] | | | and [place] | + + + | Organization | [facility] | | | and [place] | + + + | Address | Unknown | + + + | Phone | Unavailable | + + + Support + + + + + | Name | Relationship | Address | Phone | + + + + + | Kyaw Woodson | ECON | [place], [place] | | + + + + + | Barbara Cabrera | ECON | Unknown | | + + + + + | Dimple Hathaway | ECON | Unknown | | + + + + + Care Team Providers + +------+ + | Care Life Sciences Director Name | Role | Phone | + +------+ + | Daniel Land NP | PCP | | + +------+ + Encounter Details +--------+ + + + + | Date | Type | Department | Care Team | Description | +--------+ + + + + | 01/14/ | Orders Only | [facility] | Conversion | | | 2018 | | NEPHROLOGY [place] | Transaction, | | | | | [address] [facility] [address] | Provider Unknown | | | | | [address] [facility] [place] | | | | | | [address] | (Fax) | | | | | [phone] | | | +--------+ + + + [...] [address] | | | | | | [facility] | | | | | | [place] | | | | | | [address] | | | | | | | [...] [address] | | | | | | [place] [address] | | | | | | [phone] | | | | | | | | +--------+ + + + + | 11/25/ | Office | Nephrology | Kei Arthur MD | | | 2019 | Visit | | [address] [facility] | | | | | | [address] [place] | | | | | | [address] | | | | | | | | +--------+ + + + + documented as of this encounter Procedures + +--------+ + + + | Procedure Name | Priori | Date/Time | Associated Diagnosis | Comments | | | ty | | | | + +--------+ + + + | CULTURE, URINE | Routin | 01/14/2018 | | Results for this | | | e | 12:00 AM | | procedure are in the | | | | PDT | | results section. | + +--------+ + + + documented in this encounter Results Culture, Urine (01/14/2018 12:00 AM PDT) + + | Specimen | + + | Urine specimen | | (specimen) | + + + + + | Narrative | Performed At | + + + | Specimen Description Urine CULTURE | EXTERNAL LAB | | [facility] | | | REPORT STATUS Final | | + + + + +---------+ + + | Performing | Address | City/State/Zipcode | Phone Number | | Organization | | | | + +---------+ + + | EXTERNAL LAB | | | | + +---------+ + + documented in this encounter Visit Diagnoses Not on filedocumented in this encounter"
--- OUTSIDE RECORDS SUMMARY | ~2019-10-02 | XMS | Encounter Summary ---
Demographics + + + | Address | [address] | | | [place] [address] | + + + | Home Phone | | + + + | Preferred Language | Unknown | + + + | Marital Status | Single | + + + | Nondenominational Affiliation | UNK | + + + | Race | White | + + + | Ethnic Group | Not or | + + + Author + + + | Author | [facility] | + + + | Organization | [facility] | + + + | Address | Unknown | + + + | Phone | Unavailable | + + + Support + + +---------+ + | Name | Relationship | Address | Phone | + + +---------+ + | Valentine Qiu | ECON | Unknown | | + + +---------+ + Care Team Providers + +------+ + | Care Patrol Police Lieutenant Name | Role | Phone | + +------+ + | Ifeanyi Call MD | PCP | | + +------+ + Reason for Visit + + + | Reason | Comments | + + + | Visual field testing | | + + + Intake Referral (Routine) +--------+--------+ + + + + | Status | Reason | Specialty | Diagnoses / | Referred By | Referred To | | | | | Procedures | Contact | Contact | +--------+--------+ + + + + | Closed | | Ophthalmology | Diagnoses | Joleen, | Danielito Crockett, | | | | | Maculopathy | MD Aliya | ,PhD [address]14 | | | | | or macular | Retina & | [address] | | | | | dystrophy | Macula | Carrie | | | | | ou: unknown | [facility] | [address] | | | | | etiology. | [address] | [place], [place] | | | | | | Road [address] | [address] | | | | | | [address] | Phone: | | | | | | [place], [place] | [phone] | | | | | | [address] | Fax: | | | | | | Phone: | [phone] | | | | | | [phone] | | | | | | | Fax: | | | | | | | [phone] | | +--------+--------+ + + + + Encounter Details +--------+ + + + + | Date | Type | Department | Care Team | Description | +--------+ + + + + | 12/23/ | Procedure | [facility] | | Visual field testing | | 2017 | | [facility] | | | | | | [place] at [facility] | | | | | | [address] | | | | | | Mailcode: WEST | | | | | | [place] [address] | | | | | | [phone] | | | +--------+ + + + [...] + documented as of this encounter Progress Donis Moralez - 12/23/2016 3:02 PM PDT Alondra Caballero was seen in the [facility] today, 12/23/2016. Pt was to complete testing. documented in this encount er Plan of Treatment Not on filedocumented as of this encounter Visit Diagnoses + + | Diagnosis | + + | Visual field defect - Primary Visual field defect, unspecified | + + | Macular dystrophy Hereditary retinal dystrophy, unspecified | + + | Maculopathy Unspecified retinal disorder | + + documented in this encounter"
--- OUTSIDE RECORDS SUMMARY | ~2019-10-02 | XMS | Encounter Summary ---
Demographics + + + | Address | [address] | | | [place] [address] | + + + | Home Phone [...] + + + | Author | [facility] | | | and [place] | + + + | Organization | [facility] | | | and [place] | + + + | Address | Unknown | + + + | Phone | Unavailable | + + + Support + + + + + | Name | Relationship | Address | Phone | + + + + + | Kyaw Woodson | ECON | [place], [place] | | + + + + + | Barbara Cabrera | ECON | Unknown | | + + + + + | Dimple Hathaway | ECON | Unknown | | + + + + + Care Team Providers + +------+ + | Care Maintenance Painter Apprentice Name | Role | Phone | + +------+ + | Daniel Land NP | PCP | | + +------+ + Encounter Details +--------+ + + + + | Date | Type | Department | Care Team | Description | +--------+ + + + + | 02/17/ | Orders Only | [facility] | Conversion | | | 2016 | | NEPRHOLOGY [place] | Transaction, | | | | | [address] | Provider Unknown | | | | | [address] [place] | [phone] | | | | | [address] | | | | | | [phone] | | | +--------+ + + + [...] | | | | | [address] [facility] [[email or web address]] | | | | | | [place] | | | | | | [address] | | | | | | | [...] | | | | | [place] [address] | | | | | | [phone] | | | | | | | | +--------+ + + + + | 11/25/ | Office | Nephrology | Kei Arthur MD | | | 2019 | Visit | | [address] [facility] | | | | | | [address] [place] | | | | | | [address] | | | | | | | | +--------+ + + + + documented as of this encounter Procedures + +--------+ + + + | Procedure Name | Priori | Date/Time | Associated Diagnosis | Comments | | | ty | | | | + +--------+ + + + | EXTERNAL LAB: [facility] | Routin | 02/18/2016 | | Results for this | | | e | 12:00 AM | | procedure are in the | | | | PDT | | results section. | + +--------+ + + + documented in this encounter Results External Lab: CBC (02/18/2016 12:00 AM PDT) + + + + + + | Component | Value | Ref Range | Performed | Pathologist | | | | | At | Signature | + + + + + + | WBC | 11.7 (A) | 4.5 - 11.0 10 | EXTERNAL | | | | | | LAB | | + + + + + + | RED CELL | 3.77 (A) | 3.8 - 5.1 10 | EXTERNAL | | | COUNT | | | LAB | | + + + + + + | Hgb | 10.1 (A) | 12.0 - 16.0 | EXTERNAL | | | | | g/dL | LAB | | + + + + + + | Hematocrit, | 31.5 (A) | 35 - 45 % | EXTERNAL | | | POC | | | LAB | | + + + + + + | MCV | 83.3 | 81 - 99 fL | EXTERNAL | | | | | | LAB | | + + + + + + | MCH | 27 | 27 - 33 pg | EXTERNAL | | | | | | LAB | | + + + + + + | MCHC | 32 | 30 - 36 g/dL | EXTERNAL | | | | | | LAB | | + + + + + + | Platelet | 464 (A) | 140 - 440 K/ L | EXTERNAL | | | Count | | | LAB | | | Plasma | | | | | + + + + + + | RDW-CV | | % | EXTERNAL | | [...] + + + | % Segmented | 69.2 | 39 - 80 % | EXTERNAL | | | | | | LAB | | | Neutrophils | | | | | + + + + + + | % | 24.5 | 24 - 44 % | EXTERNAL | | | Lymphocytes | | | LAB | | + + + + + + | % Monocytes | 3.6 | 0 - 12 % | EXTERNAL | | | | | | LAB | | + + + + + + | % | 2.0 | 0 - 6 % | EXTERNAL | | | Eosinophils | | | LAB | | + + + + + + | % Basophils | 0.7 | 0 - 2 % | EXTERNAL | | | | [...]
--- OUTSIDE RECORDS SUMMARY | ~2019-10-02 | XMS | Encounter Summary ---
Demographics + + + | Address | [address] | | | [place] [address] | + + + | Home Phone | | + + + | Preferred Language | Unknown | + + + | Marital Status | Single | + + + | Tenriism Affiliation | 1041 | + + + | Race | Unknown | + + + | Ethnic Group | Unknown | + + + Author + + + | Author | [facility] | | | and [place] | + + + | Organization | [facility] | | | and [place] | + + + | Address | Unknown | + + + | Phone | Unavailable | + + + Support + + + + + | Name | Relationship | Address | Phone | + + + + + | Kyaw Woodson | ECON | [place], [place] | | + + + + + | Barbara Cabrera | ECON | Unknown | | + + + + + | Dimple Hathaway | ECON | Unknown | | + + + + + Care Team Providers + +------+ + | Care Summer Child Caregiver Name | Role | Phone | + +------+ + | No, Physician | PCP | Unavailable | + +------+ + Encounter Details +--------+ + + + + | Date | Type | Department | Care Team | Description | +--------+ + + + + | 12/22/ | Orders Only | [facility] | Kei Arthur MD | | | 2018 | | NEPHROLOGY [place] | [address] | | | | | [address] [place] | [address] [place], [place] | | | | | [address] [facility] [place] | [address] | | | | | [address] | | | | | | [phone] | | | +--------+ + + + [...] | | | | | [address] | | | | | | [place] | | | | | | [address] | | | | | | | [...] | | | | | [place] [address] | | | | | | [phone] | | | | | | | | +--------+ + + + + | 11/25/ | Office | Nephrology | Kei Arthur MD | | | 2019 | Visit | | [address] [facility] | | | | | | [address] [place] | | | | | | [address] | | | | | | | | +--------+ + + + + documented as of this encounter Procedures + +--------+ + + + | Procedure Name | Priori | Date/Time | Associated Diagnosis | Comments | | | ty | | | | + +--------+ + + + | EXTERNAL LAB: [facility] | Routin | 12/22/2017 | | Results for this | | | e | 8:28 AM | | procedure are in the | | | | PDT | | results section. | + +--------+ + + + | IRON AND IRON | Routin | 12/22/2017 | | Results for this | | BINDING CAPACITY | e | 8:28 AM | | procedure are in the | | | | PDT | | results section. | + +--------+ + + + | URINALYSIS WITH | Routin | 12/22/2017 | | Results for this | | MICROSCOPIC IF | e | 8:28 AM | | procedure are in the | | INDICATED | | PDT | | results section. | + +--------+ + + + | PROTEIN/CREATININE | Routin | 12/22/2017 | | Results for this | | RATIO, URINE | e | 8:28 AM | | procedure are in the | | | | PDT | | results section. | + +--------+ + + + | URIC ACID | Routin | 12/22/2017 | | Results for this | | | e | 8:28 AM | | procedure are in the | | | | PDT | | results section. | + +--------+ + + + | PARATHYROID HORMONE, | Routin | 12/22/2017 | | Results for this | | INTACT | e | 8:28 AM | | procedure are in the | | | | PDT | | results section. | + +--------+ + + + | MAGNESIUM | Routin | 12/22/2017 | | Results for this | | | e | 8:28 AM | | procedure are in the | | | | PDT | | results section. | + +--------+ + + + | FERRITIN | Routin | 12/22/2017 | | Results for this | | | e | 8:28 AM | | procedure are in the | | | | PDT | | results section. | + +--------+ + + + | RENAL FUNCTION PANEL | Routin | 12/22/2017 | | Results for this | | | e | 8:28 AM | | procedure are in the | | | | PDT | | results section. | + +--------+ + + + documented in this encounter Results Iron and Iron Binding Capacity (12/22/2017 8:28 AM PDT) + +---------+ + + + | Component | Value | Ref Range | Performed | Pathologist | | | | | At | Signature | + +---------+ + + + | Iron | 87.83 | 37 - 160 | EXTERNAL | | | | | | LAB | | + +---------+ + + + | Iron | 21.8 | 20 - 55 | EXTERNAL | | | Saturation | | | LAB | | + +---------+ + + + | TIBC | 402 (A) | 245 - 400 | EXTERNAL [...] + +---------+ + + Protein/Creatinine Ratio, Urine (12/22/2017 8:28 AM PDT) + + + + + + | Component | Value | Ref Range | Performed | Pathologist | | | | | At | Signature | + + + + + + | Protein/Cre | 645.2 (A) | 0 - 150 | EXTERNAL [...] + + Urinalysis with Microscopic if Indicated (12/22/2017 8:28 AM PDT) + + + + + [...] + + + | Spec Grav, | 1.006 | 1.005 - 1.030 | EXTERNAL | | | Fluid | | | LAB | | + + + + + + | Leukocyte | Trace | | EXTERNAL | | | Esterase, [...] At | + + + | WBC's: 15 Bacteria: 2+ | EXTERNAL LAB | + + + + +---------+ + + | Performing | Address | City/State/Zipcode | Phone Number | | Organization | | | | + +---------+ + + | EXTERNAL LAB | | | | + +---------+ + + External Lab: CBC (12/22/2017 8:28 AM PDT) + + + + + + | Component | Value | Ref Range | Performed | Pathologist | | | | | At | Signature | + + + + + + | WBC | 9.1 | 4.5 - 11.0 10 | EXTERNAL | | | | | | LAB | | + + + + + + | RED CELL | 3.18 (A) | 3.8 - 5.1 10 | EXTERNAL | | | COUNT | | | LAB | | + + + + + + | Hgb | 10 (A) | 12 - 16 g/dL | EXTERNAL | | | | | | LAB | | + + + + + + | Hematocrit, | 30.2 (A) | 35 - 45 % | EXTERNAL | | | POC | | | LAB | | + + + + + + | MCV | 94.8 | 81 - 99 fL | EXTERNAL | | | | | | LAB | | + + + + + + | MCH | 31 | 27 - 33 pg | EXTERNAL | | | | | | LAB | | + + + + + + | MCHC | 33 | 30 - 36 g/dL | EXTERNAL | | | | | | LAB | | + + + + + + | Platelet | 261 | 140 - 440 K/ L | EXTERNAL | | | Count | | | LAB | | | Plasma | | | | | + + + + + + | RDW-CV | 15.6 (A) | 10.5 - 15.0 % | [...] | + +---------+ + + Uric Acid (12/22/2017 8:28 AM PDT) + +---------+ + + + | Component | Value | Ref Range | Performed | Pathologist | | | | | At | Signature | + +---------+ + + + | Uric Acid | 7.4 (A) | 2.3 - 6.6 | EXTERNAL [...] + +---------+ + + Parathyroid Hormone, Intact (12/22/2017 8:28 AM PDT) + + + + + + | Component | Value | Ref Range | Performed | Pathologist | | | | | At | Signature | + + + + + + | PTH INTACT | 165.0 (A) | 15 - 65 pg/mL | [...] | | + +---------+ + + Magnesium (12/22/2017 8:28 AM PDT) + +-------+ + + + | Component | Value | Ref Range | Performed | Pathologist | | | | | At | Signature | + +-------+ + + + | Magnesium | 1.9 | 1.7 - 2.5 mg/dL | EXTERNAL [...] | | + +---------+ + + Ferritin (12/22/2017 8:28 AM PDT) + + + + + + | Component | Value | Ref Range | Performed | Pathologist | | | | | At | Signature | + + + + + + | Ferritin, | 758.7 (A) | 13 - 150 ng/mL | [...] + +---------+ + + Renal Function Panel (12/22/2017 8:28 AM PDT) + + + + + + | Component | Value | Ref Range | Performed | Pathologist | | | | | At | Signature | + + + + + + | Glucose, | 175 (A) | 70 - 100 mg/dL | EXTERNAL | | | Fasting | | | LAB | | + + + + + + | BUN | 42 (A) | 6 - 23 mg/dL | EXTERNAL | | | | | | LAB | | + + + + + + | Creatinine | 2.65 (A) | 0.6 - 1.35 | EXTERNAL | | | | | mg/dL | LAB | | + + + + + + | PHOSPHORUS | | mg/dL | EXTERNAL | | | | | | LAB | | + + + + + + | Albumin | 3.8 | 3.5 - 5.0 | EXTERNAL | | | | | | LAB | | + + + + + + | Na | 138 | 132 - 143 | EXTERNAL | | | | | mmol/L | LAB | | + + + + + + | K | 4.3 | 3.6 - 5.1 | EXTERNAL | | | | | mmol/L | LAB | | + + + + + + | Cl | 98 | 95 - 112 mmol/L | EXTERNAL | | | | | | LAB | | + + + + + + | CO2 | 22 | 19 - 31 mmol/L | EXTERNAL | | | | | | LAB | | + + + + + + | Anion Gap | 22.3 (A) | 7 - 21 mmol/L | EXTERNAL | | | | | | LAB | | + + + + + + | eGFR if not | | | EXTERNAL | | | | | | LAB | | | [facility] | | | | | + + + + + + | Phosphorus, | 4.2 | 2.5 - 5.0 | EXTERNAL | | | Inorganic | | | LAB | | + + + + + + | BUN/Creatin | 15.8 | 6.0 - 28.6 | EXTERNAL | | | ine Ratio | | | LAB | | + + + + + + | Calcium | 9.3 | 8.4 - 10.2 | EXTERNAL | | | | | mg/dL | LAB | | + + + + + + | Estimated | 19 (A) | 60 mg/dL | EXTERNAL | [...]
--- OUTSIDE RECORDS SUMMARY | ~2019-10-02 | XMS | Encounter Summary ---
Demographics + + + | Address | [address] | | | [place] [address] | + + + | Home Phone | | + + + | Preferred Language | Unknown | + + + | Marital Status | Single | + + + | Taoist Affiliation | UNK | + + + [...] Team Providers + +------+ + | Care Referral Specialist Name | Role | Phone | + +------+ + | Ifeanyi Call MD | PCP | | + +------+ + Reason for Visit + + + | Reason | Comments | + + + | New Patient Visit | | + + + Office Visit - E/M Services (Routine) +--------+--------+ + + + + | Status | Reason | Specialty | Diagnoses / | Referred By | Referred To | | | | | Procedures | Contact | Contact | +--------+--------+ + + + + | Closed | | Ophthalmology | | Flaxel, | Labrum, | | | | | | Jaelyn, | Pato, OD | | | | | | MD [address] | [address] | | | | [address] | [address] | | | | | | [address] | [place], [place] | | | | | | [facility] [place] | [address] | | | | | | [address] | Phone: | | | | | | Phone: | [phone] | | | | | | [phone] | Fax: | | | | | | Fax: | [phone] | | | | | | [phone] | | +--------+--------+ + + + + Encounter Details +--------+---------+ + + + | Date | Type | Department | Care Team | Description | +--------+---------+ + + + | 12/22/ | Office | [facility] | Pato Lenz, OD | Impaired contrast | | 2018 | Visit | [place] [facility] | [address] | sensitivity (Primary | | | | [address] | [place], [place] | Dx); Retinal | | | | Mailcode: [facility] | [address] | telangiectasia of | | | | [facility] | [phone] | both eyes | | | | and Healing, | | | | | | Building | | | | | | [place], [place] | | | | | | [address] | | | | | | [phone] | | | +--------+---------+ + + + Social History + +-------+ +--------+------+ | Tobacco Use | Types | Packs/Day | Years | Date | | | | | Used | | + +-------+ +--------+------+ | Former Smoker | | | | | + +-------+ +--------+------+ + +---+---+---+ | Smokeless Tobacco: | | | | | Never Used | | | | + +---+---+---+ + + | Comments: smoked 15 years [...] documented as of this encounter Progress Notes Pato Lenz, OD - 12/22/2017 1:00 PM PDTFormatting of this note might be different from t johnny original. Vision Rehabilitation Service [facility] [place] [facility] Chief Complaint:Improving vision for distance and near. Subjective/History of Present Illness: Patient reports difficulty with reading fine print and would like to improve distance visio n. Her glasses are 2.5 years old and are SV distance glasses. She removes her glasses for re ading and does not want to wear bifocals. She lives with her 3 children. She shares cooking responsibilities with daughter. She has a caregiver come to her home for 7 hours per week to help with chores around the home. She sp ends most of her day taking care of 2 children that are close to the family who she refers t o as grandchildren. She also keeps busy by going to her daughters [employer]. She uses [employer] transport to get to her appointments. She is depressed and has anxiety which she takes medication for. She would like to be refer red for psychological services. Patient was referred by Dr. Mejia. Her last appointment was 12/15/17. POH/Referring Diagnosis 47 year old patient referred by Dr. Mejia on for evaluation of vision impairment secondary to Type 2 macular telangiectasis. Accompanied today by Melodie (daughter). INTAKE OF VISUAL FUNCTION: Problems with: reading fine print Lighting issues: denies Source of task light: Table lamps Driving: does not drive Navigation: no issues Balance issue: uses wheel chair Needs for Travel:none Living situation & Support: 2 sons, 1 daughter Occupation: retired Hobbies: taking care of children Primary Care Practitioner: Ifeanyi Call MD Past Medical History: Diagnosis Date Amputated finger Amputated left leg ([facility]) Anemia Anxiety CAD (coronary artery disease) Cardiac defibrillator in situ CHF (congestive heart failure) ([facility]) Depression Diabetes ([facility]) Diabetes mellitus, type 2 ([facility]) 1990 H/O shortness of breath HBP (high blood pressure) History of blood transfusion History of placement of ear tubes History of pneumonia Kidney disease Renal failure Seizure ([facility]) 2009 meth induced Stented coronary artery Current Outpatient Prescriptions Medication acetaminophen 500 mg oral tablet albuterol (PROAIR HFA) 90 mcg/actuation inhalation HFA aerosol inhaler allopurinol 100 mg oral tablet ascorbic acid SR 1,000 mg oral tablet aspirin chewable 81 mg oral tablet,chewable atorvastatin 40 mg oral tablet b complex vitamins (VITAMINS B COMPLEX) oral tablet Cholecalciferol, Vitamin D3, 5,000 unit oral capsule DEXILANT 60 mg oral capsule,biphase delayed releas docusate sodium 100 mg oral capsule Fenofibrate (FENOFIBRATE) 160 mg oral tablet insulin regular hum U-500 conc 500 unit/mL (3 mL) subcutaneous insulin pen INV insulin aspart 100 units/mL subcutaneous injectable KLOR-CON M10 10 mEq oral tablet,ER particles/crystals metoprolol succinate 100 mg oral tablet extended release 24 hr multivitamin (ONE DAILY MULTIVITAMIN) oral tablet spironolactone 50 mg oral tablet torsemide 20 mg oral tablet venlafaxine 225 mg oral tablet extended release 24hr No current facility-administered medications for this visit. No past surgical history on file. IDDM type 2 (began as gestational at age 22-insulin dependant since then) Type 2 macular telangiectasis OU Avastin OU, 11/17/2017 -Last consent for Avastin, OU, 11/17/2017- Dr. Mejia. Family history: Family history includes Breast Cancer in her maternal aunt; Cancer in her cousin, father, m aternal aunt, maternal grandmother, mother, and paternal aunt; Diabetes in her father, mothe r, and sister; Glasses in her daughter, mother, sisters, and sons; Glaucoma in her maternal grandmother and paternal grandmother; and Macular degeneration in her paternal grandmother. There is no history of Retinal detachment, and Cataract, and Blindness, and Heart Disease, and Retinitis pigmentosa, and Strabismus, and Amblyopia, . Tobacco use: reports that she has quit smoking. She has never used smokeless tobacco. Mood & Affect/Orientation: Appropriate and oriented x 3 Reviewed systems for: fever, wt. loss, ENT, cardiovascular, pulmonary, GI, urinary, neurolo gic, endocrine, bleeding/blood disorders, AIDS/HIV, cancer/tumors, arthritis - all were nega tive except as noted above. There were no vitals taken for this visit. Base Exam Manifest Refraction Sphere Cylinder Silver Add Right -7.00 -0.75 087 +4.50 Left -7.00 -0.25 090 +4.50 Final Rx Sphere Cylinder Silver Right -7.00 -0.75 087 Left -7.00 -0.25 090 Contrast Sensitivity Testing Chart Used [place], with glasses OU 1.44 This is a moderate loss of low contrast sensitivity Additional Tests: Habitual magnifiers/assistive devices: -none Trial with assistive technology as follows: 1. 3.5x LED hand held magnifier-patient was very happy with this device. 2. Polarized youngblood Cocoons. Assessment & Plan: 1) Decreased contrast sensitivity OD,OS -Prescribed new glasses for distance. There was significant improvement with distance vision with new sRx. Patient prefers to remove glasses for reading instead of wearing bifoc als. -Dispensed Ban 3.5x LED HHM (Item#[id number] from [facility] donation inventtory) for spot reading fine print. -Educated patient on proper lighting to to enhance contrast and to reduce glare. -Refer patient to [facility] for psychological services. -Have patient RTC prn as new goals arise. 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 Final Rx: OD -7.00 -0.75 x 087 OD, OS -7.00 -0.25 x 090 3. Type 2 macular telangiectasis OD,OS -Continue care with Dr. Mejia. Start: 12:45 PM End: 1:50 PM Refraction: 15 min 50% or more of my total [id number] time with my patient, as recorded above, was spent in my counseling (their documented eye & vision diagnosis, adaptation to blindness, life skills , explanation of sRx options, coordination of care, and explanation of treatment options) wh ile subtracting any minutes given to testing procedures alone, including the refraction, if performed. 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
--- OUTSIDE RECORDS SUMMARY | ~2019-10-02 | XMS | Encounter Summary ---
Demographics + + + | Address | [address] | | | [place] [address] | + + + | Home Phone | | + + + | Preferred Language | Unknown | + + + | Marital Status | Single | + + + | Congregation Affiliation | 1041 | + + + | Race | Unknown | + + + | Ethnic Group | Unknown | + + + Author + + + | Author | [facility] | | | and [place] | + + + | Organization | [facility] | | | and [place] | + + + | Address | Unknown | + + + | Phone | Unavailable | + + + Support + + + + + | Name | Relationship | Address | Phone | + + + + + | Kyaw Woodson | ECON | [place], [place] | | + + + + + | Barbara Cabrera | ECON | Unknown | | + + + + + | Dimple Hathaway | ECON | Unknown | | + + + + + Care Team Providers + +------+ + | Care Fiberglasser Name | Role | Phone | + +------+ + | Jennyfer Gresham MD | PCP | | + +------+ + Reason for Visit +--------+ + | Reason | Comments | +--------+ + | Other | | +--------+ + Encounter Details +--------+ + + + + | Date | Type | Department | Care Team | Description | +--------+ + + + + | 10/01/ | Telephone | [facility] | Jerry Yuen, | Other | | 2019 | | [facility] | MD [address] | | | | | [address] | [address] | | | | | [address] | [place] [address] | | | | | [place], [place] | [phone] | | | | | [address] | | | | | | [phone] | | | +--------+ + + + [...] [address] | | | | | | [place] | | | | | | [address] | | | | | | | [...] | | | | | | [place] [address] | | | | | | [phone] | | | | | | | | +--------+ + + + + | 11/25/ | Office | Nephrology | Kei Arthur MD | | | 2019 | Visit | | [address] | | | | | | [address] [place], [place] | | | | | | [address] | | | | | | | | +--------+ + + + + documented as of this encounter Visit Diagnoses Not on filedocumented in this encounter"
--- OUTSIDE RECORDS SUMMARY | ~2019-10-02 | XMS | Encounter Summary ---
Demographics + + + | Address | [address] | | | [place] [address] | + + + | Home Phone | | + + + | Preferred Language | Unknown | + + + | Marital Status | Single | + + + | Jainism Affiliation | 1041 | + + + | Race | Unknown | + + + | Ethnic Group | Unknown | + + + Author + + + | Author | [facility] | | | and [place] | + + + | Organization | [facility] | | | and [place] | + + + | Address | Unknown | + + + | Phone | Unavailable | + + + Support + + + + + | Name | Relationship | Address | Phone | + + + + + | Kyaw Woodson | ECON | [place], [place] | | + + + + + | Barbara Cabrera | ECON | Unknown | | + + + + + | Dimple Hathaway | ECON | Unknown | | + + + + + Care Team Providers + +------+ + | Care Truck Driver Name | Role | Phone | + +------+ + | Daniel Land NP | PCP | | + +------+ + Encounter Details +--------+ + + + + | Date | Type | Department | Care Team | Description | +--------+ + + + + | 05/27/ | Orders Only | [facility] | Conversion | | | 2016 | | NEPRHOLOGY [place] | Transaction, | | | | | [address] | Provider Unknown | | | | | [address] [place] | [phone] | | | | | [address] | | | | | | [phone] | | | +--------+ + + + [...] | | | | | [address] [facility] | | | | | | [place] | | | | | | [address] | | | | | | | [...] | | | | | [place] [address] | | | | | | [phone] | | | | | | | | +--------+ + + + + | 11/25/ | Office | Nephrology | Kei Arthur MD | | | 2019 | Visit | | [address] [facility] | | | | | | [address] [place] | | | | | | [address] | | | | | | | [...] FERRITIN | Routin | 05/27/2016 | | | | | e | 12:00 AM | | | | | | PDT | | | + +--------+ + + + | RENAL FUNCTION PANEL | Routin | 05/27/2016 | | Results for this | | | e | 12:00 AM | | procedure are in the | | | | PDT | | results section. | + +--------+ + + + documented in this encounter Results Uric Acid (05/27/2016 12:00 AM PDT) + [...] + + | Magnesium | 2.2 | 1.75 - 2.5 | EXTERNAL | | | | | mg/dL | LAB | | + +-------+ + [...] + Ferritin (05/27/2016 12:00 AM PDT) + +-------+ + + + | Component | Value | Ref Range | Performed | Pathologist | | | | | At | Signature | + +-------+ + + + | Ferritin, | | ng/mL | EXTERNAL | | | External [...] + +---------+ + + Renal Function Panel (05/27/2016 12:00 AM PDT) + + + [...] + + + + | BUN | 48 (A) | 6 - 23 mg/dL | EXTERNAL | | | | | | LAB | | + + + + + + | Creatinine | 3.02 (A) | 0.50 - 1.35 | EXTERNAL | | | | | mg/dL | LAB | | + + + + + + | PHOSPHORUS | | mg/dL | EXTERNAL | | | | | | LAB | | + + + + + + | Albumin | 4.5 | 3.5 - 5.0 | EXTERNAL | [...] + + + + | Cl | 99 | 95 - 112 mmol/L | EXTERNAL | | | | | | LAB | | + + + + + + | CO2 | 24 | 19 - 31 mmol/L | EXTERNAL [...] | | | LAB | | | ETHIOPIAN | | | | | + + + + + + | Phosphorus, | 4.7 | 2.5 - 5.0 | EXTERNAL | | | Inorganic | | | LAB | | + + + + + + | BUN/Creatin | 15.9 | 6.0 - 28.6 | EXTERNAL | | | ine Ratio | | | LAB | | + + + + + + | Calcium | 9.6 | 8.4 - 10.2 | EXTERNAL | | | | | mg/dL | LAB | | + + + + + + | Estimated | 17 | mg/dL | EXTERNAL | | | [...]
--- OUTSIDE RECORDS SUMMARY | ~2019-10-02 | XMS | Encounter Summary ---
Demographics + + + | Address | [address] | | | [place] [address] | + + + | Home Phone | | + + + | Preferred Language | Unknown | + + + | Marital Status | Single | + + + | Druze Affiliation | 1041 | + + + | Race | Unknown | + + + | Ethnic Group | Unknown | + + + Author + + + | Author | [facility] | | | and [place] | + + + | Organization | [facility] | | | and [place] | + + + | Address | Unknown | + + + | Phone | Unavailable | + + + Support + + + + + | Name | Relationship | Address | Phone | + + + + + | Kyaw Woodson | ECON | [place], [place] | | + + + + + | Barbara Cabrera | ECON | Unknown | | + + + + + | Dimple Hathaway | ECON | Unknown | | + + + + + Care Team Providers + +------+ + | Care Medical Affairs Director Name | Role | Phone | + +------+ + PCP | Unavailable | + +------+ + Encounter Details +--------+ + + + + | Date | Type | Department | Care Team | Description | +--------+ + + + + | 03/01/ | Hospital | [facility] | Wing Padmini Rubin MD | Pain in joint, | | 1993 | Encounter | CONVERSION [address] | [address] | forearm | | | | [address] | [place], [place] | | | | | [place], [place] | [address] | | | | | [address] | [phone] | | | | | [phone] | | | +--------+ + + + [...] | | | | | [address] [facility] | | | | | | [place] | | | | | | [address] | | | | | | | [...] | | | | | [place] [address] | | | | | | [phone] | | | | | | | | +--------+ + + + + | 11/25/ | Office | Nephrology | Kei Arthur MD | | | 2019 | Visit | | [address] [facility] [address] | | | | | | [address] [place] | | | | | | [address] | | | | | | | | +--------+ + + + + documented as of this encounter Visit Diagnoses + + | Diagnosis | + + | Pain in joint, forearm | + + documented in this encounter"
--- OUTSIDE RECORDS SUMMARY | ~2019-10-02 | XMS | Encounter Summary ---
Demographics + + + | Address | [address] | | | [place] [address] | + + + | Home Phone | | + + + | Preferred Language | Unknown | + + + | Marital Status | Single | + + + | Sikhism Affiliation | UNK | + + + | Race | White | + + + | Ethnic Group | Not or | + + + Author + + + | Author | [facility] | + + + | Organization | [facility] | + + + | Address | Unknown | + + + | Phone | Unavailable | + + + Support + + +---------+ + | Name | Relationship | Address | Phone | + + +---------+ + | Valentine Qiu | ECON | Unknown | | + + +---------+ + Care Team Providers + +------+ + | Care Fulling Mill Operator Name | Role | Phone | + +------+ + | Jennyfer Gresham MD | PCP | | + +------+ + Encounter Details +--------+ + + + + | Date | Type | Department | Care Team | Description | +--------+ + + + + | 02/12/ | Document-Sc | Health Information | Unknown . | | | 2017 | anned | Services [id number] | | | | | | [address] | | | | | | Mailcode: [id number] | | | | | | [facility] | | | | | | [place], [place] | | | | | | [address] | | | | | | [phone] | | | +--------+ + + + [...]
--- OUTSIDE RECORDS SUMMARY | ~2019-10-02 | XMS | Encounter Summary ---
Demographics + + + | Address | [address] | | | [place] [address] | + + + | Home Phone | | + + + | Preferred Language | Unknown | + + + | Marital Status | Single | + + + | Christianity Affiliation | 1041 | + + + | Race | Unknown | + + + | Ethnic Group | Unknown | + + + Author + + + | Author | [facility] | | | and [place] | + + + | Organization | [facility] | | | and [place] | + + + | Address | Unknown | + + + | Phone | Unavailable | + + + Support + + + + + | Name | Relationship | Address | Phone | + + + + + | Kyaw Woodson | ECON | [place], [place] | | + + + + + | Barbara Cabrera | ECON | Unknown | | + + + + + | Dimple Hathaway | ECON | Unknown | | + + + + + Care Team Providers + +------+ + | Care Operator Weapon Locating Radar Name | Role | Phone | + +------+ + | Daniel Land NP | PCP | | + +------+ + Encounter Details +--------+ + + + + | Date | Type | Department | Care Team | Description | +--------+ + + + + | 11/17/ | Orders Only | [facility] | Conversion | | | 2018 | | NEPRHOLOGY [place] | Transaction, | | | | | [address] | Provider Unknown | | | | | [address] [place] | [phone] | | | | | [address] | | | | | | [phone] | | | +--------+ + + + [...] | | | | | [address] [facility] | | | | | | [place] | | | | | | [address] | | | | | | | [...] | | | | | [place] [address] | | | | | | [phone] | | | | | | | | +--------+ + + + + | 11/25/ | Office | Nephrology | Kei Arthur MD | | | 2019 | Visit | | [address] [facility] | | | | | | [address] [place] | | | | | | [address] | | | | | | | | +--------+ + + + + documented as of this encounter Procedures + +--------+ + + + | Procedure Name | Priori | Date/Time | Associated Diagnosis | Comments | | | ty | | | | + +--------+ + + + | CULTURE, URINE | Routin | 11/17/2017 | | Results for this | | | e | 7:15 AM | | procedure are in the | | | | PST | | results section. | + +--------+ + + + documented in this encounter Results Culture, Urine (11/17/2017 7:15 AM PST) + + | Specimen | + + | Urine specimen | | (specimen) | + + + + + | Narrative | Performed At | + + + | Specimen Description Urine CULTURE | EXTERNAL LAB | | Escherichia | | | Coli REPORT STATUS Final | | + + + + +---------+ + + | Performing | Address | City/State/Zipcode | Phone Number | | Organization | | | | + +---------+ + + | EXTERNAL LAB | | | | + +---------+ + + documented in this encounter Visit Diagnoses Not on filedocumented in this encounter"
--- OUTSIDE RECORDS SUMMARY | ~2019-10-02 | XMS | Encounter Summary ---
Demographics + + + | Address | [address] | | | [place] [address] | + + + | Home Phone | | + + + | Preferred Language | Unknown | + + + | Marital Status | Single | + + + | Muslim Affiliation | 1041 | + + + | Race | Unknown | + + + | Ethnic Group | Unknown | + + + Author + + + | Author | [facility] | | | and [place] | + + + | Organization | [facility] | | | and [place] | + + + | Address | Unknown | + + + | Phone | Unavailable | + + + Support + + + + + | Name | Relationship | Address | Phone | + + + + + | Kyaw Woodson | ECON | [place], [place] | | + + + + + | Barbara Cabrera | ECON | Unknown | | + + + + + | Dimple Hathaway | ECON | Unknown | | + + + + + Care Team Providers + +------+ + | Care Laminating Machine Operator Helper Name | Role | Phone | + +------+ + | Jennyfer Gresham MD | PCP | | + +------+ + Reason for Visit + + + | Reason | Comments | + + + | Medication Refill | Fenofibrate | + + + Encounter Details +--------+--------+ + + + | Date | Type | Department | Care Team | Description | +--------+--------+ + + + | 07/17/ | Refill | [facility] | Mari Mcdaniel, | Medication Refill | | 2019 | | CARDIOLOGY [place] | [address] | (Fenofibrate) | | | | [address] | [place] | | | | | [place] | [address] | | | | | [address] | | | | | | [phone] | | | +--------+--------+ + + + Social History + +-------+ [...] [address] | | | | | | [place] | | | | | | [address] | | | | | | | [...] | | | | | [place] [address] | | | | | | [phone] | | | | | | | | +--------+ + + + + | 11/25/ | Office | Nephrology | Kei Arthur MD | | | 2020 | Visit | | [address] [facility] | | | | | | [address] [place] | | | | | | [address] | | | | | | | | +--------+ + + + + documented as of this encounter Visit Diagnoses Not on filedocumented in this encounter"
--- OUTSIDE RECORDS SUMMARY | ~2019-10-02 | XMS | Encounter Summary ---
Demographics + + + | Address | [address] | | | [place] [address] | + + + | Home Phone [...] | Organization | [facility] | | | and [place] | + + + | Address | Unknown | + + + | Phone | Unavailable | + + + Support + + + + + | Name | Relationship | Address | Phone | + + + + + | Kyaw Woodson | ECON | [place], [place] | | + + + + + | Barbara Cabrera | ECON | Unknown | | + + + + + | Dimple Hathaway | ECON | Unknown | | + + + + + Care Team Providers + +------+ + | Care Portable Power Tool Repairer Name | Role | Phone | + +------+ + | Jennyfer Gresham MD | PCP | | + +------+ + Encounter Details +--------+ + + + + | Date | Type | Department | Care Team | Description | +--------+ + + + + | 04/02/ | Orders Only | [facility] | Kei Arthur MD | | | 2019 | | NEPRHOLOGY [place] | [address] | | | | | [address] | [address] [place], [place] | | | | | [address] [place], [place] | [address] | | | | | [address] | | | | | | [phone] | | | +--------+ + + + [...] [address] | | | | | | [facility] | | | | | | [place] | | | | | | [address] | | | | | | | | +--------+ + + + + | 10/10/ | Procedure | Cardiology | | | | 2019 | visit | | | | +--------+ + + + + | 10/17/ | Office | Family Medicine | Jerry Yuen, | | 2019 | Visit | | MD [address] | | | | | | [address] | | | | | | [place] [address] | | | | | | [phone] | | | | | | | | +--------+ + + + + | 11/25/ | Office | Nephrology | Kei Arthur MD | | | 2019 | Visit | | [address] | | | | | | [address] [place] | | | | | | [address] | | | | | | | | +--------+ + + + + documented as of this encounter Visit Diagnoses Not on filedocumented in this encounter"
--- OUTSIDE RECORDS SUMMARY | ~2019-10-02 | XMS | Encounter Summary ---
Demographics + + + | Address | [address] | | | [place] [address] | + + + | Home Phone | | + + + | Preferred Language | Unknown | + + + | Marital Status | Single | + + + | Samaritan Affiliation | 1041 | + + + | Race | Unknown | + + + | Ethnic Group | Unknown | + + + Author + + + | Author | [facility] | | | and [place] | + + + | Organization | [facility] | | | and [place] | + + + | Address | Unknown | + + + | Phone | Unavailable | + + + Support + + + + + | Name | Relationship | Address | Phone | + + + + + | Kyaw Woodson | ECON | [place], [place] | | + + + + + | Barbara Cabrera | ECON | Unknown | | + + + + + | Dimple Hathaway | ECON | Unknown | | + + + + + Care Team Providers + +------+ + | Care Drywall Finisher Name | Role | Phone | + +------+ + | No, Physician | PCP | Unavailable | + +------+ + Encounter Details +--------+ + + + + | Date | Type | Department | Care Team | Description | +--------+ + + + + | 09/04/ | Hospital | [facility] | Conversion | Pain | | 2014 | Encounter | CONVERSION [address] | Transaction, | | | | | [address] | Provider Unknown | | | | | [address] | [phone] | | | | | [address] | | | | | | [phone] | | | +--------+ + + + [...] [place] | | | | | | [address] | | | | | | | [...] | | | | | [place] [address] | | | | | | [phone] | | | | | | | | +--------+ + + + + | 11/25/ | Office | Nephrology | Kei Arthur MD | | | 2019 | Visit | | [address] [facility] | | | | | | [address] [place] | | | | | | [address] | | | | | | | [...]
--- OUTSIDE RECORDS SUMMARY | ~2019-10-02 | XMS | Encounter Summary ---
Demographics + + + | Address | [address] | | | [place] [address] | + + + | Home Phone | | + + + | Preferred Language | Unknown | + + + | Marital Status | Single | + + + | Moravian Affiliation | 1041 | + + + | Race | Unknown | + + + | Ethnic Group | Unknown | + + + Author + + + | Author | [facility] | | | and [place] | + + + | Organization | [facility] | | | and [place] | + + + | Address | Unknown | + + + | Phone | Unavailable | + + + Support + + + + + | Name | Relationship | Address | Phone | + + + + + | Kyaw Woodson | ECON | [place], [place] | | + + + + + | Barbara Cabrera | ECON | Unknown | | + + + + + | Dimple Hathaway | ECON | Unknown | | + + + + + Care Team Providers + +------+ + | Care Principal Bioinformatics Specialist Name | Role | Phone | + +------+ + | Jennyfer Gresham MD | PCP | | + +------+ + Encounter Details +--------+ + + + + | Date | Type | Department | Care Team | Description | +--------+ + + + + | 01/03/ | Orders Only | [facility] | Kei Arthur MD | | | 2019 | | NEPRHOLOGY [place] | [address] | | | | | [address] | [address] [place], [place] | | | | | [address] [place], [place] | [address] | | | | | [address] | | | | | | [phone] | | | +--------+ + + + [...] [address] | | | | | | [facility] | | | | | | [place] [address] | | | | | | [address] | | | | | | | [...] [address] | | | | | | [place] [address] | | | | | | [phone] | | | | | | | | +--------+ + + + + | 11/25/ | Office | Nephrology | Kei Arthur MD | | | 2019 | Visit | | [address] | | | | | | [address] [place] | | | | | | [address] | | | | | | | | +--------+ + + + + documented as of this encounter Visit Diagnoses Not on filedocumented in this encounter"
--- OUTSIDE RECORDS SUMMARY | ~2019-10-02 | XMS | Encounter Summary ---
Demographics + + + | Address | [address] | | | [place] [address] | + + + | Home Phone | | + + + | Preferred Language | Unknown | + + + | Marital Status | Single | + + + | Anabaptist Affiliation | 1041 | + + + | Race | Unknown | + + + | Ethnic Group | Unknown | + + + Author + + + | Author | [facility] | | | and [place] | + + + | Organization | [facility] | | | and [place] | + + + | Address | Unknown | + + + | Phone | Unavailable | + + + Support + + + + + | Name | Relationship | Address | Phone | + + + + + | Kyaw Woodson | ECON | [place], [place] | | + + + + + | Barbara Cabrera | ECON | Unknown | | + + + + + | Dimple Hathaway | ECON | Unknown | | + + + + + Care Team Providers + +------+ + | Care Home Health Lpn Name | Role | Phone | + +------+ + PCP | Unavailable | + +------+ + Encounter Details +--------+ + + + + | Date | Type | Department | Care Team | Description | +--------+ + + + + | 11/30/ | Hospital | [facility] | [place], | | | 1999 | Encounter | [facility] | [place] [address] | | | | | [address] [address] | [facility] | | | | | [facility] | [place] [address] | | | | | [place], [place] | [phone] | | | | | [address] | | | | | | [phone] | | | +--------+ + + + [...] [place] | | | | | | [address] | | | | | | | [...] | | | | | [place] [address] | | | | | | [phone] | | | | | | | | +--------+ + + + + | 11/25/ | Office | Nephrology | Kei Arthur MD | | | 2020 | Visit | | [address] [facility] | | | | | | [address] [place] | | | | | | [address] | | | | | | | | +--------+ + + + + documented as of this encounter Visit Diagnoses Not on filedocumented in this encounter"
--- OUTSIDE RECORDS SUMMARY | ~2019-10-02 | XMS | Encounter Summary ---
Demographics + + + | Address | [address] | | | [place] [address] | + + + | Home Phone | | + + + | Preferred Language | Unknown | + + + | Marital Status | Single | + + + | Lutheran Affiliation | 1041 | + + + | Race | Unknown | + + + | Ethnic Group | Unknown | + + + Author + + + | Author | [facility] | | | and [place] | + + + | Organization | [facility] | | | and [place] | + + + | Address | Unknown | + + + | Phone | Unavailable | + + + Support + + + + + | Name | Relationship | Address | Phone | + + + + + | Kyaw Woodson | ECON | [place], [place] | | + + + + + | Barbara Cabrera | ECON | Unknown | | + + + + + | Dimple Hathaway | ECON | Unknown | | + + + + + Care Team Providers + +------+ + | Care Rope Cleaner Name | Role | Phone | + +------+ + | Jennyfer Gresham MD | PCP | | + +------+ + Encounter Details +--------+ + + + + | Date | Type | Department | Care Team | Description | +--------+ + + + + | 06/07/ | Orders Only | [facility] | Conversion | | | 2016 | | CONVERSION [address] | Transaction, | | | | | [address] | Provider Unknown | | | | | [place], [place] | [phone] | | | | | [address] | | | | | | [phone] | | | +--------+ + + + [...] [address] | | | | | | [facility] | | | | | | [place] | | | | | | [phone] | | | | | | | [...] | | | | | [place] [address] | | | | | | [phone] | | | | | | | | +--------+ + + + + | 11/25/ | Office | Nephrology | Kei Arthur MD | | | 2019 | Visit | | [address] [facility] | | | | | | [address] [place] | | | | | | [phone] | | | | | | | | +--------+ + + + + documented as of this encounter Visit Diagnoses Not on filedocumented in this encounter"
--- OUTSIDE RECORDS SUMMARY | ~2019-10-02 | XMS | Encounter Summary ---
Demographics + + + | Address | [address] | | | [place] [address] | + + + | Home Phone | | + + + | Preferred Language | Unknown | + + + | Marital Status | Single | + + + | Holiness Affiliation | 1041 | + + + | Race | Unknown | + + + | Ethnic Group | Unknown | + + + Author + + + | Author | [facility] | | | and [place] | + + + | Organization | [facility] | | | and [place] | + + + | Address | Unknown | + + + | Phone | Unavailable | + + + Support + + + + + | Name | Relationship | Address | Phone | + + + + + | Kyaw Woodson | ECON | [place], [place] | | + + + + + | Barbara Cabrera | ECON | Unknown | | + + + + + | Dimple Hathaway | ECON | Unknown | | + + + + + Care Team Providers + +------+ + | Care Adjunct Faculty Instructor Name | Role | Phone | + +------+ + PCP | Unavailable | + +------+ + Encounter Details +--------+ + + + + | Date | Type | Department | Care Team | Description | +--------+ + + + + | 06/18/ | Hospital | [facility] | Fany Ceja, | | | 2012 - | Encounter | [facility] | [address] | | | | | CARDIAC TRANSPLANT | [address] [place] | | | 06/20/ | | [address] | [address] | | | 2012 | | [place] | [phone] | | | | | [address] | | | | | | [phone] | | | +--------+ + + + [...] + + documented as of this encounter Discharge Summaries Jordan Estrada PA - 06/20/2013 9:47 AM PDT PATIENT NAME: ADAM HINTON Sex/Age: F / 43Y : 1970 ADMISSION DATE: 06/19/2013 DISCHARGE DATE: 06/20/2013 [id number] / [id number] DISCHARGE DIAGNOSES: 1. Ischemic cardiomyopathy: A. History of extensive coronary disease. B. Status post extensive anterior wall myocardial infarction, left ventricular ejection f raction 30%. C. Implantation of dual-chamber ICD under MADIT II criteria in 2011. D. Acute lead fract ure, 06/14/2013. 2. Complete device explantation this admission with placement of a [employer] leadless implantable defibrillator. The device is a model 1010, serial #[id number]. 3. Active smoker. 4. Hypertension. 5. Insulin-requiring type 2 diabetes mellitus. 6. Past history of intravenous drug abuse, allegedly abstinent for 30 months. 7. 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 MEDICATIONS ON DISCHARGE: (Unchanged from admission as per Dr. Nielsen's note of 06/12/20 13). Acetaminophen Extra Strength 500 mg as needed. Diphenhydramine 25 mg as needed. Aspirin 81 mg daily. Atorvastatin 40 mg a day. Bisacodyl 5 mg as needed. Carvedilol 25 mg twice daily. Plavix 75 mg a day. Famotidine 20 mg a day. Fenofibrate 54 mg daily. Flonase as needed. Furosemide 40 mg twice daily. Gabapentin 800 mg twice daily. Hydroxyzine 50 mg 4 times a day. Potassium 10 mEq twice daily. Levemir as directed. Metformin 500 mg 2 tabs twice daily. Guaifenesin 400 mg as needed. One multivitamin daily. Sublingual nitroglycerin as needed. NovoLog as directed. Omeprazole 20 mg a day. Oxycodone 5 mg q.4-6 hours as needed. ProAir as needed. STEVE HINTONCEY Sher ADM:06/18/13 [id number] 06/20/13 DIS [place] DISCHARGE SUMMARY [id number] [facility] Bhakta B [facility] Fany Ceja MD R THIS REPORT IS CONFIDENTIAL AND NOT TO BE RELEASED WITHOUT PROPER AUTHORIZATION. [facility] Spironolactone 25 mg twice daily. Venlafaxine 150 mg 2 daily. Vitamin B12/folic acid 500 mg/400 mcg daily. Vitamin D. HISTORY AND HOSPITAL COURSE: The patient is a 43-year-old lady with multiple medical probl ems. We received an alert on the morning of 06/14/2013 that her defibrillator was vibrating and that her RV lead had fractured. Arrangements were made for her to have the device extr acted and Dr. Ceja implanted a [employer] leadless ICD without incident. DISPOSITION: She was observed overnight and sent home the following day. She will see her primary provider in a week for a wound check, and we will do a device check in three months , either in the [place] office or in [place]. FARHAN Gurrola MD A A YOU/sacha #[id number] cc: MD Jordan Garcia PA-C Stuart Swena, MD Saad Tabbara, MD Electronically Signed 07/10/13 1629 [facility] Bhakta Electronically Signed 06/25/13 2149 Fany Ceja MD MARY JANE,ADAM Olivarez ADM:06/18/13 [id number] 06/20/13 DIS [place] DISCHARGE SUMMARY [id number] [facility] Bhakta B [facility] MD Karen Garcia THIS REPORT IS CONFIDENTIAL AND NOT TO BE RELEASED WITHOUT PROPER AUTHORIZATION.Electronica lly signed by SOPHIA Bhakta at 07/10/2013 4:30 PM Jordan Monk PA - 06/20 9:47 AM PDT PATIENT NAME: ADAM HINTON Sex/Age: F / 43Y : 1970 ADMISSION DATE: 06/19/2013 DISCHARGE DATE: 06/20/2013 [id number] / [id number] DISCHARGE DIAGNOSES: 1. Ischemic cardiomyopathy: A. History of extensive coronary disease. B. Status post extensive anterior wall myocardial infarction, left ventricular ejection f raction 30%. C. Implantation of dual-chamber ICD under MADIT II criteria in 2011. D. Acute lead fract ure, 06/14/2013. 2. Complete device explantation this admission with placement of a [employer] neous leadless implantable defibrillator. The device is a model 1010, serial #[id number]. 3. Active smoker. 4. Hypertension. 5. Insulin-requiring type 2 diabetes mellitus. 6. Past history of intravenous drug abuse, allegedly abstinent for 30 months. 7. 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 MEDICATIONS ON DISCHARGE: (Unchanged from admission as per Dr. Nielsen's note of 06/12/20 13). Acetaminophen Extra Strength 500 mg as needed. Diphenhydramine 25 mg as needed. Aspirin 81 mg daily. Atorvastatin 40 mg a day. Bisacodyl 5 mg as needed. Carvedilol 25 mg twice daily. Plavix 75 mg a day. Famotidine 20 mg a day. Fenofibrate 54 mg daily. Flonase as needed. Furosemide 40 mg twice daily. Gabapentin 800 mg twice daily. Hydroxyzine 50 mg 4 times a day. Potassium 10 mEq twice daily. Levemir as directed. Metformin 500 mg 2 tabs twice daily. Guaifenesin 400 mg as needed. One multivitamin daily. Sublingual nitroglycerin as needed. NovoLog as directed. Omeprazole 20 mg a day. Oxycodone 5 mg q.4-6 hours as needed. ProAir as needed. ADAM HINTON ADM:06/18/13 [id number] 06/20/13 DIS [place] DISCHARGE SUMMARY [id number] [facility] Bhakta [facility] MD Karen Garcia THIS REPORT IS CONFIDENTIAL AND NOT TO BE RELEASED WITHOUT PROPER AUTHORIZATION. [facility] Spironolactone 25 mg twice daily. Venlafaxine 150 mg 2 daily. Vitamin B12/folic acid 500 mg/400 mcg daily. Vitamin D. HISTORY AND HOSPITAL COURSE: The patient is a 43-year-old lady with multiple medical probl ems. We received an alert on the morning of 06/14/2013 that her defibrillator was vibrating and that her RV lead had fractured. Arrangements were made for her to have the device extr acted and Dr. Ceja [facility] lead[facility] ICD without incident. DISPOSITION: She was observed overnight and sent home the following day. She will see her primary provider in a week for a wound check, and we will do a device check in three months , either in the [place] office or in [place]. FARHAN Gurrola MD A A YOU/sacha #[id number] cc: MD Jordan Garcia PA-C Stuart Swena, MD Saad Tabbara, MD Electronically Signed 06/25/13 2149 Fany Ceja MD ADAM HINTON ADM:06/18/13 [id number] 06/20/13 DIS [place] DISCHARGE SUMMARY [id number] [facility] Bhakta ES B [facility] MD Karen Garcia THIS REPORT IS CONFIDENTIAL AND NOT TO BE RELEASED WITHOUT PROPER AUTHORIZATION.Electronica lly signed by SOPHIA Bhakta at 06/25/2013 9:49 PM PDTdocumented in this encounter Medications at Time of Discharge + + + +---------+ + + | Medication | Sig | Dispensed | Refills | Start | End Date | | | | | | Date | | + + + +---------+ + + | aspirin 325 mg EC | Take 1 tablet by | 30 | 11 | 10/06/19 | | | tablet | mouth daily with | tablet | | 13 | 4 | | | breakfast. | | | | | + + [...] [address] | | | | | | [facility] | | | | | | [place] | | | | | | [phone] | | | | | | | [...] | | | | | [place] [address] | | | | | | [phone] | | | | | | | | +--------+ + + + + | 11/25/ | Office | Nephrology | Kei Arthur MD | | | 2019 | Visit | | [address] [facility] | | | | | | [address] [place], [place] | | | | | | [address] | | | | | | | | +--------+ + + + + documented as of this encounter Procedures + +--------+ + + + | Procedure Name | Priori | Date/Time | Associated Diagnosis | Comments | | | ty | | | | + +--------+ + + + | POC GLUCOSE | Routin | 06/20/2013 | | Results for this | | | e | 7:27 AM | | procedure are in the | | | | PDT | | results section. | + +--------+ + + + | POC GLUCOSE | Routin | 06/19/2013 | | Results for this | | | e | 9:20 PM | | procedure are in the | | | | PDT | | results section. | + +--------+ + + + | POC GLUCOSE | Routin | 06/19/2013 | | Results for this | | | e | 5:36 PM | | procedure are in the | | | | PDT | | results section. | + +--------+ + + + | POC GLUCOSE | Routin | 06/19/2013 | | Results for this | | | e | 11:52 AM | | procedure are in the | | | | PDT | | results section. | + +--------+ + + + | CULTURE IF | Routin | 06/19/2013 | | Results for this | | INDICATED,UA | e | 10:06 AM | | procedure are in the | | | | PDT | | results section. | + +--------+ + + + | URINALYSIS WITH | Routin | 06/19/2013 | | Results for this | | MICROSCOPIC | e | 10:06 AM | | procedure are in the | | | | PDT | | results section. | + +--------+ + + + | POC GLUCOSE | Routin | 06/19/2013 | | Results for this | | | e | 8:28 AM | | procedure are in the | | | | PDT | | results section. | + +--------+ + + + | XR CHEST PA OR AP | | 06/18/2013 | | Results for this | | | | 11:29 AM | | procedure are in the | | | | PDT | | results section. | + +--------+ + + + | POC GLUCOSE | Routin | 06/18/2013 | | Results for this | | | e | 11:28 AM | | procedure are in the | | | | PDT | | results section. | + +--------+ + + + | CBC NO DIFFERENTIAL | Routin | 06/18/2013 | | Results for this | | | e | 5:34 AM | | procedure are in the | | | | PDT | | results section. | + +--------+ + + + | BASIC METABOLIC | Routin | 06/18/2013 | | Results for this | | PANEL | e | 5:34 AM | | procedure are in the | | | | PDT | | results section. | + +--------+ + + + documented in this encounter Results POC Glucose (06/20/2013 7:27 AM PDT) + +---------+ + + + | Component | Value | Ref Range | Performed | Pathologist | | | | | At | Signature | + +---------+ + + + | Glucose, | 127 (H) | 65 - 99 mg/dL | [facility] | [facility] | | | | | [facility] | | | | | | MEDICAL | | | | | | CENTER | | | | | | LABORATORY | | + +---------+ + + + + + | Specimen | + + | | + + + + + + + | Performing | Address | City/State/Zipcode | Phone Number | | Organization | | | | + + + + + | [facility] | [address] | [place] [address] | | | [facility] | | | | | LABORATORY | | | | + + + + + POC Glucose (06/19/2013 9:20 PM PDT) + +---------+ + + + | Component | Value | Ref Range | Performed | Pathologist | | | | | At | Signature | + +---------+ + + + | Glucose, | 196 (H) | 65 - 99 mg/dL | [facility] | | [facility] | | | | | | [facility] | | | | | | MEDICAL | | | | | | CENTER | | | | | | LABORATORY | | + +---------+ + + + + + | Specimen | + + | | + + + + + + + | Performing | Address | City/State/Zipcode | Phone Number | | Organization | | | | + + + + + | [facility] | [address] | [place] [address] | | | [facility] | | | | | LABORATORY | | | | + + + + + POC Glucose (06/19/2013 5:36 PM PDT) + +---------+ + + + | Component | Value | Ref Range | Performed | Pathologist | | | | | At | Signature | + +---------+ + + + | Glucose, | 373 (H) | 65 - 99 mg/dL | [facility] | | [facility] | | | | | | [facility] | | | | | | MEDICAL | | | | | | CENTER | | | | | | LABORATORY | | + +---------+ + + + + + | Specimen | + + | | + + + + + + + | Performing | Address | City/State/Zipcode | Phone Number | | Organization | | | | + + + + + | [facility] | [address] | [place] [address] | | | [facility] | | | | | LABORATORY | | | | + + + + + POC Glucose (06/19/2013 11:52 AM PDT) + +---------+ + + + | Component | Value | Ref Range | Performed | Pathologist | | | | | At | Signature | + +---------+ + + + | Glucose, | 393 (H) | 65 - 99 mg/dL | [facility] | | | [facility] | | | | | | [facility] | | | | | | MEDICAL | | | | | | CENTER | | | | | | LABORATORY | | + +---------+ + + + + + | Specimen | + + | | + + + + + + + | Performing | Address | City/State/Zipcode | Phone Number | | Organization | | | | + + + + + | [facility] | [address] | [place] [address] | | | [facility] | | | | | LABORATORY | | | | + + + + + Urinalysis With Microscopic (06/19/2013 10:06 AM PDT) + + + + + + | Component | Value | Ref Range | Performed | Pathologist | | | | | At | Signature | + + + + + + | Color, | Yellow | | [facility] | | | Urine | | | [facility] | | | | | | HEART | | | | | | MEDICAL | | | | | | CENTER | | | | | | LABORATORY | | + + + + + + | Clarity | Clear | | [facility] | | | | | | [facility] | | | | | | HEART | | | | | | MEDICAL | | | | | | CENTER | | | | | | LABORATORY | | + + + + + + | Glucose, | >1000 (HH) | Negative mg/dL | [facility] | | | Urine | Comment: | | [facility] | | | | Verified by readback. | | HEART | | | | CALLED [address] | | MEDICAL | | | | | | CENTER | | | | | | LABORATORY | | + + + + + + | Bilirubin, | Negative | Negative | [facility] | | | Urine | | | [facility] | | | | | | HEART | | | | | | MEDICAL | | | | | | CENTER | | | | | | LABORATORY | | + + + + + + | Ketones, | Negative | Negative mg/dL | [facility] | | | Urine | | | [facility] | | | | | | HEART | | | | | | MEDICAL | | | | | | CENTER | | | | | | LABORATORY | | + + + + + + | Specific | 1.011 | 1.001 - 1.030 | [facility] | | | [place] | | | [facility] | | | | | | HEART | | | | | | MEDICAL | | | | | | CENTER | | | | | | LABORATORY | | + + + + + + | pH, Urine | 5.5 | 5.0 - 7.5 | [facility] | | | | | | [facility] | | | | | | HEART | | | | | | MEDICAL | | | | | | CENTER | | | | | | LABORATORY | | + + + + + + | Protein, | Negative | Negative mg/dL | [facility] | | | Urine | | | [facility] | | | | | | HEART | | | | | | MEDICAL | | | | | | CENTER | | | | | | LABORATORY | | + + + + + + | Urobilinoge | <2.0 | <2.0 mg/dL | [facility] | | | n, Urine | | | [facility] | | | | | | HEART | | | | | | MEDICAL | | | | | | CENTER | | | | | | LABORATORY | | + + + + + + | Nitrite, | Negative | Negative | [facility] | | | Urine | | | [facility] | | | | | | HEART | | | | | | MEDICAL | | | | | | CENTER | | | | | | LABORATORY | | + + + + + + | Blood, | Negative | Negative | [facility] | | | Urine | | | [facility] | | | | | | HEART | | | | | | MEDICAL | | | | | | CENTER | | | | | | LABORATORY | | + + + + + + | Leukocyte | Negative | Negative | [facility] | | | Esterase, | | | [facility]CR[facility] | | | Urine | | | HEART | | | | | | MEDICAL | | | | | | CENTER | | | | | | LABORATORY | | + + + + + + | WBC UA | <1 | <6 /hpf | [facility] | | | | | | [facility] | | | | | | HEART | | | | | | MEDICAL | | | | | | CENTER | | | | | | LABORATORY | | + + + + + + | RBC UA | 6 (H) | <6 /hpf | [facility] | | | | | | [facility] | | | | | | HEART | | | | | | MEDICAL | | | | | | CENTER | | | | | | LABORATORY | | + + + + + + | BACTERIA UA | None seen | /hpf | [facility] | | | | | | [facility] | | | | | | HEART | | | | | | MEDICAL | | | | | | CENTER | | | | | | LABORATORY | | + + + + + + | SQUAMOUS | FewComment: Healthy | /lpf | [facility] | | | EPITHELIAL | individuals show up to | | [facility] | | | UA | FEW squamous epithelial | | HEART | | | | cells in the urine, | | MEDICAL | | | | depending on collection | | CENTER | | | | method. | | LABORATORY | | + + + + + + | MUCUS UA | Present (A) | None seen /lpf | [facility] | | | | | | [facility] | | | | | | HEART | | | | | | MEDICAL | | | | | | CENTER | | | | | | LABORATORY | | + + + + + + | HYALINE | Few (A) | None seen /lpf | [facility] | | | CASTS UA | | | [facility] | | | | | | HEART | | | | | | MEDICAL | | | | | | CENTER | | | | | | LABORATORY | | + + + + + + + + | Specimen | + + | | + + + + + + + | Performing | Address | City/State/Zipcode | Phone Number | | Organization | | | | + + + + + | [facility] | [address] | [place] [address] | | | [facility] | | | | | LABORATORY | | | | + + + + + Cul Ind UA (06/19/2013 10:06 AM PDT) + + + + + + | Component | Value | Ref Range | Performed | Pathologist | | | | | At | Signature | + + + + + + | Culture | Culture not indicated | Culture not | [facility] | | | Indicated | | indicated | [facility] | | | | | | HEART | | | | | | MEDICAL | | | | | | CENTER | | | | | | LABORATORY | | + + + + + + + + | Specimen | + + | | + + + + + + + | Performing | Address | City/State/Zipcode | Phone Number | | Organization | | | | + + + + + | [facility] | [address] | [place] [address] | | | [facility] | | | | | LABORATORY | | | | + + + + + POC Glucose (06/19/2013 8:28 AM PDT) + +---------+ + + + | Component | Value | Ref Range | Performed | Pathologist | | | | | At | Signature | + +---------+ + + + | Glucose, | 368 (H) | 65 - 99 mg/dL | [facility] | | | POC | | | [facility] | | | | | | HEART | | | | | | MEDICAL | | | | | | CENTER | | | | | | LABORATORY | | + +---------+ + + + + + | Specimen | + + | | + + + + + + + | Performing | Address | City/State/Zipcode | Phone Number | | Organization | | | | + + + + + | [facility] | [address] | [place] [address] | | | [facility] | | | | | LABORATORY | | | | + + + + + XR Chest PA or AP (06/18/2013 11:29 AM PDT) + + | Specimen | + + | | + + + + + | Narrative | Performed At | + + + | Exam Performed Location: [facility] [place] CHEST | MISCELANIOUS | | PORTABLE CLINICAL INFORMATION: Shortness of breath post ICD | LAB | | revision. COMPARISON: None. FINDINGS: Left subclavian ICD | | | seen previously out. New AICD lead extending from right inferior | | | heart towards carri region. Generator in left lateral chest wall. | | | No pneumothorax. IMPRESSION: Revision of AICD. No | | | pneumothorax. Lungs grossly clear. S: SQ ([id number]) Signed by: | | | DALE HERNANDEZ MD | | + + + + + | Procedure Note | + + | Marcelo Matias Conversion - 07/11/2013 5:42 PM PDT Exam Performed Location: [facility] | | at [facility] PORTABLECLINICAL INFORMATION:Shortness of breath post ICD | | revision.COMPARISON:None.FINDINGS:Left subclavian ICD seen previously out. New AICD | | lead extendingfrom right inferior heart towards carri region. Generator in leftlateral | | chest wall. No pneumothorax.IMPRESSION:Revision of AICD. No pneumothorax. Lungs | | grossly clear.S: SQ ([id number]) Signed by: DALE HERNANDEZ MD | | | |COMPARISON: | |None. | | | |FINDINGS: | |Left subclavian ICD seen previously out. New AICD lead extending | |from right inferior heart towards carri region. Generator in left | |lateral chest wall. No pneumothorax. | | | |IMPRESSION: | |Revision of AICD. No pneumothorax. Lungs grossly clear. | | | | | |S: SQ ([id number]) Signed by: DALE HERNANDEZ MD | + + + +---------+ + + | Performing | Address | City/State/Zipcode | Phone Number | | Organization | | | | + +---------+ + + | [facility] | | | [phone] | + +---------+ + + | MISCELANI[facility] LAB | | | [phone] | + +---------+ + + POC Glucose (06/18/2013 11:28 AM PDT) + +---------+ + + + | Component | Value | Ref Range | Performed | Pathologist | | | | | At | Signature | + +---------+ + + + | Glucose, | 207 (H) | 65 - 99 mg/dL | [facility] | | | P[facility] | | | [facility] | | | | | | HE[facility] | | | | | | MEDICAL | | | | | | CENTER | | | | | | LABORATORY | | + +---------+ + + + + + | Specimen | + + | | + + + + + + + | Performing | Address | City/State/Zipcode | Phone Number | | Organization | | | | + + + + + | [facility] | [address] | [place] [address] | | | [facility] | | | | | LABORATORY | | | | + + + + + Basic Metabolic Panel (06/18/2013 5:34 AM PDT) + + + + + + | Component | Value | Ref Range | Performed | Pathologist | | | | | At | Signature | + + + + + + | Na | 134 (L) | 135 - 145 | [facility] | | | | | mmol/L | [facility] | | | | | | HEART | | | | | | MEDICAL | | | | | | CENTER | | | | | | LABORATORY | | + + + + + + | K | 3.5 | 3.5 - 5.0 | [facility] | | | | | mmol/L | [facility] | | | | | | HEART | | | | | | MEDICAL | | | | | | CENTER | | | | | | LABORATORY | | + + + + + + | Cl | 98 (L) | 99 - 109 mmol/L | [facility] | | | | | | [facility] | | | | | | HEART | | | | | | MEDICAL | | | | | | CENTER | | | | | | LABORATORY | | + + + + + + | CO2 | 25 | 21 - 28 mmol/L | [facility] | | | | | | [facility] | | | | | | HEART | | | | | | MEDICAL | | | | | | CENTER | | | | | | LABORATORY | | + + + + + + | Glucose | 156 (H)Comment: If | 65 - 99 mg/dL | [facility] | | | | , Normal = 65 to | | [facility] | | | | 94 mg/dL. [place] | | HEART | | | | Diabetes Association | | MEDICAL | | | | diagnostic categories | | CENTER | | | | for non adults: | | LABORATORY | | | | Impaired fasting | | | | | | glucose 100 to 125 | | | | | | mg/dL. A fasting | | | | | | glucose of 126 mg/dL or | | | | | | greater indicates | | | | | | diabetes if the | | | | | | abnormality is confirmed | | | | | | on a subsequent day. | | | | | | A random glucose | | | | | | result of greater than | | | | | | 200 mg/dL indicates | | | | | | diabetes if the | | | | | | abnormality is confirmed | | | | | | on a subsequent day. | | | | + + + + + + | BUN | 12 | 8 - 25 mg/dL | [facility] | | | | | | [facility] | | | | | | HEART | | | | | | MEDICAL | | | | | | CENTER | | | | | | LABORATORY | | + + + + + + | Creatinine | 0.99Comment: IDMS | 0.50 - 1.00 | [facility] | | | | traceable creatinine | mg/dL | [facility] | | | | | | HEART | | | | | | MEDICAL | | | | | | CENTER | | | | | | LABORATORY | | + + + + + + | Calcium | 9.0 | 8.5 - 10.2 | [facility] | | | | | mg/dL | [facility] | | | | | | HEART | | | | | | MEDICAL | | | | | | CENTER | | | | | | LABORATORY | | + + + + + + | Anion Gap | 11 | 5 - 16 mmol/L | [facility] | | | | | | [facility] | | | | | | HEART | | | | | | MEDICAL | | | | | | CENTER | | | | | | LABORATORY | | + + + + + + | Estimated | >60Comment: GFR <60: | >60 | [facility] | | | GFR | Chronic kidney disease, | ml/min/1.73m2 | [facility] | | | | if found over a 3 month | | HEART | | | | period.GFR <15: Kidney | | MEDICAL | | | | failure.For | | CENTER | | | | Americans, multiply the | | LABORATORY | | | | calculated GFR by 1.210 | | | | + + + + + + + + | Specimen | + + | | + + + + + + + | Performing | Address | City/State/Zipcode | Phone Number | | Organization | | | | + + + + + | [facility] | [address] | [place] [address] | | | [facility] | | | | | LABORATORY | | | | + + + + + CBC no Differential (06/18/2013 5:34 AM PDT) + + + + + + | Component | Value | Ref Range | Performed | Pathologist | | | | | At | Signature | + + + + + + | WBC | 10.7 | 3.8 - 11.0 K/uL | [facility] | | | | | | [facility] | | | | | | HEART | | | | | | MEDICAL | | | | | | CENTER | | | | | | LABORATORY | | + + + + + + | RBC | 3.98 | 3.70 - 5.10 | [facility] | | | | | M/uL | [facility] | | | | | | HEART | | | | | | MEDICAL | | | | | | CENTER | | | | | | LABORATORY | | + + + + + + | Hemoglobin | 10.3 (L) | 11.3 - 15.5 | [facility] | | | | | g/dL | [facility] | | | [facility] | | | | | | [facility] | | | | | | LABORATORY | | + + + + + + | Hematocrit | 30.9 (L) | 34.0 - 46.0 % | [facility] | [facility] | | [facility] | | | | | [facility] | | | | | | LABORATORY | | + + + + + + | MCV | 77.6 (L) | 80.0 - 100.0 fL | [facility] | [facility] | [facility] | [facility] | [facility] | | | | | | LABORATORY | | + + + + + + | MCH | 25.8 (L) | 27.0 - 34.0 pg | [facility] | | [facility] | | | | | [facility] | | | | | | LABORATORY | | + + + + + + | MCHC | 33.3 | 32.0 - 35.5 | [facility] | | | | g/dL | [facility] | | | | [facility] | | | | | | [facility] | | | | | | LABORATORY | | + + + + + + | RDW-CV | 14.4 | 11.0 - 15.5 % | [facility] | | | | | | [facility] | [facility] | [facility] | | | | | | [facility] | | | | | | CENTER | | | | | | LABORATORY | | + + + + + + | Platelet | 268 | 150 - 400 K/uL | [facility] | | | Count | | | [facility] | | | | | | [facility] | | | | | | MEDICAL | | | | | | CENTER | | | | | | LABORATORY | | + + + + + + + + | Specimen | + + | | + + + + + + + | Performing | Address | City/State/Zipcode | Phone Number | | Organization | | | | + + + + + | [facility] | [address] | [place] [address] | | | [facility] | | | | | LABORATORY | | | | + + + + + documented in this encounter Visit Diagnoses Not on filedocumented in this encounter"
--- OUTSIDE RECORDS SUMMARY | ~2019-10-02 | XMS | Encounter Summary ---
Demographics + + + | Address | [address] | | | [place] [address] | + + + | Home Phone | | + + + | Preferred Language | Unknown | + + + | Marital Status | Single | + + + | Orthodoxy Affiliation | UNK | + + + | Race | White | + + + | Ethnic Group | Not or | + + + Author + + + | Author | [facility] | + + + | Organization | [facility] | + + + | Address | Unknown | + + + | Phone | Unavailable | + + + Support + + +---------+ + | Name | Relationship | Address | Phone | + + +---------+ + | Valentine Qiu | ECON | Unknown | | + + +---------+ + Care Team Providers + +------+ + | Care Rn Burn Name | Role | Phone | + +------+ + | Ifeanyi Call MD | PCP | | + +------+ + Encounter Details +--------+ + + + + | Date | Type | Department | Care Team | Description | +--------+ + + + + | 09/22/ | Results | [facility] | Other, Faculty | | | 2018 | Only | [facility] | [phone] | | | | | [place] | | | | | | [address] | | | +--------+ + + + [...] Not on filedocumented as of this encounter Procedures + +--------+ + + + | Procedure Name | Priori | Date/Time | Associated Diagnosis | Comments | | | ty | | | | + +--------+ + + + | CULTURE, URINE | Routin | 09/22/2017 | | Results for this | | | e | 3:00 PM | | procedure are in the | | | | PST | | results section. | + +--------+ + + + documented in this encounter Results CULTURE, URINE (09/22/2017 3:00 PM PST) + + + + + + | Component | Value | Ref Range | Performed | Pathologist | | | | | At | Signature | + + + + + + | CULTURE | TO FOLLOWComment: Urine | | [facility] | | | RESULT | Culture to follow on a | | HOSPITAL | | | URINE | separate report | | | | | | Instructions Received: | | | | | | Copy To: KATRIN | | | | | | Emy, HERMINIO Jorgensen Copy | | | | | | To: [facility] | | | | | | Copy To: VERONICA ZuritaOEli, | | | | | | ADITYA Espino Copy Sent | | | | | | to HERMINIO WIKLES M.D. on | | | | | | 09/22/17. [facility] | | | | | | Copy Sent to [facility] | | | | | | [facility] on 09/22/17. | | | | | | [facility] | | | | | | Copy Sent to ADITYA Espino | | | | | | VEORNICA ZuritaOEli on 09/22/17. | | | | | | [facility] | | | | + + + + + + + + | Specimen | + + | | + + + + + | Narrative | Performed At | + + + | Testing Performed at: [facility]: [id number] - [address] | [facility] | | [place] [address] | HOSPITAL | + + + + +---------+ + + | Performing | Address | City/State/Zipcode | Phone Number | | Organization | | | | + +---------+ + + | [facility] | | | [phone] | | HOSPITAL | | | | + +---------+ + + | [facility] | | [place] | [phone] | | HOSPITAL | | | | + +---------+ + + documented in this encounter Visit Diagnoses Not on filedocumented in this encounter"
--- OUTSIDE RECORDS SUMMARY | ~2019-10-02 | XMS | Encounter Summary ---
Demographics + + + | Address | [address] | | | [place] [address] | + + + | Home Phone | | + + + | Preferred Language | Unknown | + + + | Marital Status | Single | + + + | Denominational Affiliation | 1041 | + + + | Race | Unknown | + + + | Ethnic Group | Unknown | + + + Author + + + | Author | [facility] | | | and [place] | + + + | Organization | [facility] | | | and [place] | + + + | Address | Unknown | + + + | Phone | Unavailable | + + + Support + + + + + | Name | Relationship | Address | Phone | + + + + + | Kyaw Woodson | ECON | [place], [place] | | + + + + + | Barbara Cabrera | ECON | Unknown | | + + + + + | Dimple Hathaway | ECON | Unknown | | + + + + + Care Team Providers + +------+ + | Care Phlebotomy Director Name | Role | Phone | + +------+ + PCP | Unavailable | + +------+ + Encounter Details +--------+ + + + + | Date | Type | Department | Care Team | Description | +--------+ + + + + | 12/31/ | Hospital | [facility] | [place], | | | 2000 - | Encounter | [facility] | [address] | | | | [place] [address] | [facility] | | | 01/01/ | | [facility] | [place] [address] | | | 2000 | | [place], [place] | [phone] | | | | | [address] | | | | | | [phone] | | | +--------+ + + + [...] [address] | | | | | | [facility] | | | | | | [place] | | | | | | [address] | | | | | | | [...] | | | | | [place] [address] | | | | | | [phone] | | | | | | | | +--------+ + + + + | 11/25/ | Office | Nephrology | Kei Arthur MD | | | 2020 | Visit | | [address] [facility] | | | | | | [address] [place] | | | | | | [address] | | | | | | | | +--------+ + + + + documented as of this encounter Visit Diagnoses Not on filedocumented in this encounter"
--- OUTSIDE RECORDS SUMMARY | ~2019-10-02 | XMS | Encounter Summary ---
Demographics + + + | Address | [address] | | | [place] [address] | + + + | Home Phone | | + + + | Preferred Language | Unknown | + + + | Marital Status | Single | + + + | Yazidism Affiliation | UNK | + + + | Race | White | + + + | Ethnic Group | Not or | + + + Author + + + | Author | [facility] | + + + | Organization | [facility] | + + + | Address | Unknown | + + + | Phone | Unavailable | + + + Support + + +---------+ + | Name | Relationship | Address | Phone | + + +---------+ + | Valentine Qiu | ECON | Unknown | | + + +---------+ + Care Team Providers + +------+ + | Care Orthodontic Technician Name | Role | Phone | [...] | 2018 | Only | [facility] | [phone] | | | | | [place] | | | | | | [address] | | | +--------+ + + + [...] | | | | | | To: [facility] | | | | | | Copy To: VERONICA ZuritaOEli, | | | | | | ADITYA Espino Copy Sent | | | | | | to HERMINIO WILKES M.D. on | | | | | | 09/22/17. [facility] | | | | | | Copy Sent to [facility] | | | | | | [facility] on 09/22/17. | | | | | | [facility] | | | | | | Copy Sent to ADITYA Espino | | | | | | VERONICA ZuritaOEli on 09/22/17. | | | | | | [facility] | | | | + + + + + + + + | Specimen | + + | | + + + + + | Narrative | Performed At | + + + | Testing Performed at: [facility]: [id number] - [address] | [facility] | | [place] [address] | HOSPITAL | + + + + +---------+ + + | Performing | Address | City/State/Zipcode | Phone Number | | Organization | | | | + +---------+ + + | [facility] | | | [phone] | | HOSPITAL | | | | + +---------+ + + | [facility] | | [place] | [phone] | | HOSPITAL | | | | + +---------+ + + documented in this encounter Visit Diagnoses Not on filedocumented in this encounter"
--- OUTSIDE RECORDS SUMMARY | ~2019-10-02 | XMS | Encounter Summary ---
Demographics + + + | Address | [address] | | | [place] [address] | + + + | Home Phone | | + + + | Preferred Language | Unknown | + + + | Marital Status | Single | + + + | Anglican Affiliation | 1041 | + + + | Race | Unknown | + + + | Ethnic Group | Unknown | + + + Author + + + | Author | [facility] | | | and [place] | + + + | Organization | [facility] | | | and [place] | + + + | Address | Unknown | + + + | Phone | Unavailable | + + + Support + + + + + | Name | Relationship | Address | Phone | + + + + + | Kyaw Woodson | ECON | [place], [place] | | + + + + + | Barbara Cabrera | ECON | Unknown | | + + + + + | Dimple Hathaway | ECON | Unknown | | + + + + + Care Team Providers + +------+ + | Care Lead Customer Service Representative Name | Role | Phone | + +------+ + | Daniel Land NP | PCP | | + +------+ + Encounter Details +--------+ + + + + | Date | Type | Department | Care Team | Description | +--------+ + + + + | 03/08/ | Orders Only | [facility] | Conversion | | | 2017 | | NEPHROLOGY KARSTEN | Transaction, | | | | | [address] [facility] [address] | Provider Unknown | | | | | [address] [facility] | | | | | | [address] | (Fax) | | | | | [phone] | | | +--------+ + + + [...] [address] | | | | | | [facility] | | | | | | [place] | | | | | | [address] | | | | | | | [...] [address] | | | | | | [place] [address] | | | | | | [phone] | | | | | | | | +--------+ + + + + | 11/25/ | Office | Nephrology | Kei Arthur MD | | | 2019 | Visit | | [address] [facility] | | | | | | [address] [facility] | | | | | | [address] | | | | | | | [...] | | | LAB | | | [place] | | | | | + + [...]
--- OUTSIDE RECORDS SUMMARY | ~2019-10-02 | XMS | Encounter Summary ---
Demographics + + + | Address | [address] | | | [place] [address] | + + + | Home Phone | | + + + | Preferred Language | Unknown | + + + | Marital Status | Single | + + + | Spiritism Affiliation | 1041 | + + + | Race | Unknown | + + + | Ethnic Group | Unknown | + + + Author + + + | Author | [facility] | | | and [place] | + + + | Organization | [facility] | | | and [place] | + + + | Address | Unknown | + + + | Phone | Unavailable | + + + Support + + + + + | Name | Relationship | Address | Phone | + + + + + | Kyaw Woodson | ECON | [place], [place] | | + + + + + | Barbara Cabrera | ECON | Unknown | | + + + + + | Dimple Hathaway | ECON | Unknown | | + + + + + Care Team Providers + +------+ + | Care Biology Manager Name | Role | Phone | + +------+ + | No, Physician | PCP | Unavailable | + +------+ + Encounter Details +--------+ + + + + | Date | Type | Department | Care Team | Description | +--------+ + + + + | 05/31/ | Orders Only | [facility] | Conversion | | | 2018 | | NEPHROLOGY KARSTEN | Transaction, | | | | | [address] | Provider Unknown | | | | | [address] [facility] [place] | | | | | | [address] | (Fax) | | | | | [phone] | | | +--------+ + + + [...] [place] | | | | | | [id number] | | | | | | | [...] | | | | | [place] [address] | | | | | | [phone] | | | | | | | | +--------+ + + + + | 11/25/ | Office | Nephrology | Kei Arthur MD | | | 2019 | Visit | | [address] [facility] | | | | | | [address] [place], [place] | | | | | | [address] | | | | | | | | +--------+ + + + + documented as of this encounter Procedures + +--------+ + + + | Procedure Name | Priori | Date/Time | Associated Diagnosis | Comments | | | ty | | | | + +--------+ + + + | URINALYSIS, | Routin | 05/31/2018 | | Results for this | | MICROSCOPIC ONLY | e | 8:25 AM | | procedure are in the | | | | PDT | | results section. | + +--------+ + + + | CULTURE, URINE | Routin | 05/31/2018 | | Results for this | | | e | 8:25 AM | | procedure are in the | | | | PDT | | results section. | + +--------+ + + + documented in this encounter Results Culture, Urine (05/31/2018 8:25 AM PDT) + + | Specimen | + + | Urine specimen | | (specimen) | + + + + + | Narrative | Performed At | + + + | Specimen Description Urine CULTURE | EXTERNAL LAB | | Probable Contaminants, suggest | | | recollection. REPORT STATUS Final | | | | | + + + + +---------+ + + | Performing | Address | City/State/Zipcode | Phone Number | | Organization | | | | + +---------+ + + | EXTERNAL LAB | | | | + +---------+ + + Urinalysis, Microscopic Only (05/31/2018 8:25 AM PDT) + + + + + [...] + + + + | Specific | 1.009 | 1.005 - 1.030 | EXTERNAL | | | [place] | | | LAB | | + [...] Performed At | + + + | Bacteria: 3+ | EXTERNAL LAB | + + + + +---------+ + + | Performing | Address | City/State/Zipcode | Phone Number | | Organization | | | | + +---------+ + + | EXTERNAL LAB | | | | + +---------+ + + documented in this encounter Visit Diagnoses Not on filedocumented in this encounter"
--- OUTSIDE RECORDS SUMMARY | ~2019-10-02 | XMS | Encounter Summary ---
Demographics + + + | Address | [address] | | | [place] [address] | + + + | Home Phone | | + + + | Preferred Language | Unknown | + + + | Marital Status | Single | + + + | Spiritism Affiliation | 1041 | + + + | Race | Unknown | + + + | Ethnic Group | Unknown | + + + Author + + + | Author | [facility] | | | and [place] | + + + | Organization | [facility] | | | and [place] | + + + | Address | Unknown | + + + | Phone | Unavailable | + + + Support + + + + + | Name | Relationship | Address | Phone | + + + + + | Kyaw Woodson | ECON | [place], [place] | | + + + + + | Barbara Cabrera | ECON | Unknown | | + + + + + | Dimple Hathaway | ECON | Unknown | | + + + + + Care Team Providers + +------+ + | Care Clinical Advisor Name | Role | Phone | + +------+ + | Daniel Land NP | PCP | | + +------+ + Reason for Visit + + + | Reason | Comments | + + + | Follow-up | AKA | + + + Encounter Details +--------+---------+ + + + | Date | Type | Department | Care Team | Description | +--------+---------+ + + + | 05/10/ | Office | [facility] | Ro Breen DNP | PAD (peripheral | | 2019 | Visit | VASCULAR SURGERY | [address] | artery disease) | | | | [address] | [place], [place] | ([facility]) (Primary Dx); | | | | [place], [place] | [address] | S/P AKA (above knee | | | | [address] | | amputation), right | | | | [phone] | | (HCC) | +--------+---------+ + + + Social History [...] +---------+ + + | Blood Pressure | 110/60 | 05/10/2019 9:55 AM | | | | | PDT | | + +---------+ + + | Pulse | 76 | 05/10/2019 9:55 AM | | | | | PDT | | + +---------+ + + | Temperature | - | - | | + +---------+ + + | Respiratory Rate | - | - | | + +---------+ + + | Oxygen Saturation | 98% | 05/10/2019 9:55 AM | | | | | PDT | | + +---------+ + + | [...] + + documented in this encounter Progress Otis Breen Si, DNP - 05/10/2019 10:00 AM [facility] [address] [place] [address] [place] [address] Office: [phone] DATE OF VISIT: 05/10/2019 PATIENT NAME: Alondra Caballero : 1970; AGE: 49 y.o.; Sex:F PHONE NUMBER: ; ; PROVIDER: Ro Breen DNP PRIMARY CARE / REFERRING PHYSICIAN: No ref. provider found / Daniel Land NP / [address] [facility] [address] / [place] [address] REASON FOR EVALUATION / CHIEF COMPLAINT: Vascular Surgery Postoperative Visit for righ t shyks-vftk-jrxdapgztg The patient presents today for a Vascular Surgery Postoperative Visit. The patient is statu s post right csocc-xwqo-maufegsndr, which was performed on 04/14/2019 at the [facility] Operating Room. The patient is not having any pain. The patient denies fever , wound drainage, increasing redness, pus, increasing pain, increasing swelling. Physical ex amination revealed surgical incision which is healing well without signs of infection. She i s wearing stump protector. VITAL SIGNS: BP 110/60 | Pulse 76 | SpO2 98% PHYSICAL EXAM: Constitutional: Well nourished, no signs of distress Cardiovascular: Normal rate, regular rhythm. Pulmonary/Chest: No respiratory distress. Abdominal: Soft. No abdominal distension or tenderness. Musculoskeletal: Normal range of motion. S/p left BKA, prothesis in place Extremities: No edema, cyanosis or clubbing. Neurological: She is alert and oriented. VASCULAR: Palpable femoral pulses were present bilaterally. Incision site of right MAN gómez nd is healing well without infection or drainage. Assessment & Plan: S/p right above knee amputation - The patient is doing well. Most of the chelita removed to day, left [address] No weight bearing at this time. Wound care discussed with shaniqua ent. Monitor for signs of infection. Wear stump protector daily, fall precaution discussed. Keep good glycemic control. Patient will be ready for prosthetic rehabilitation once incisio n site has completely healed. Return to vascular clinic in 2 week(s). Ro Breen DNP documented in this encounte r Plan of Treatment +--------+ + + + + | Date | Type | Specialty | Care Team | Description | +--------+ + + + + | 01/22/ | Office | Cardiology | Jerry Watts | | | 2019 | Visit | | [address] | | | | | | [address] | | | | | | [place] | | | | | | [address] | | | | | | | [...] | | | | | [place] [address] | | | | | | [phone] | | | | | | | | +--------+ + + + + | 11/25/ | Office | Nephrology | Kei Arthur MD | | | 2019 | Visit | | [address] [facility] [address] | | | | | | [address] [place] | | | | | | [address] | | | | | | | | +--------+ + + + + documented as of this encounter Visit Diagnoses + + | Diagnosis | + + | PAD (peripheral artery disease) (HCC) - Primary Unspecified disorders of arteries and | | arterioles | + + | S/P AKA (above knee amputation), right (HCC) | + + documented in this encounter"
--- OUTSIDE RECORDS SUMMARY | ~2019-10-02 | XMS | Encounter Summary ---
Demographics + + + | Address | [address] | | | [place] [address] | + + + | Home Phone | | + + + | Preferred Language | Unknown | + + + | Marital Status | Single | + + + | Hindu Affiliation | 1041 | + + + | Race | Unknown | + + + | Ethnic Group | Unknown | + + + Author + + + | Author | [facility] | | | and [place] | + + + | Organization | [facility] | | | and [place] | + + + | Address | Unknown | + + + | Phone | Unavailable | + + + Support + + + + + | Name | Relationship | Address | Phone | + + + + + | Kyaw Woodson | ECON | [place], [place] | | + + + + + | Barbara Cabrera | ECON | Unknown | | + + + + + | Dimple Hathaway | ECON | Unknown | | + + + + + Care Team Providers + +------+ + | Care Panel Builder Name | Role | Phone | + +------+ + | Jennyfer Gresham MD | PCP | | + +------+ + Reason for Visit + + + | Reason | Comments | + + + | Appointment | | + + + Encounter Details +--------+ + + + + | Date | Type | Department | Care Team | Description | +--------+ + + + + | 07/16/ | Telephone | [facility] | Jerry Watts | Appointment | | 2019 | | CARDIOLOGY [place] | [address] | | | | | [address] | [facility] | | | | | [place], [place] | [place], [place] | | | | | [address] | [phone] | | | | | [phone] | | | +--------+ + + + [...] [place] | | | | | | [address] | | | | | | | [...] | | | | | [place] [address] | | | | | | [phone] | | | | | | | | +--------+ + + + + | 11/25/ | Office | Nephrology | Kei Arthur MD | | | 2019 | Visit | | [address] | | | | | | [address] [place] | | | | | | [address] | | | | | | | | +--------+ + + + + documented as of this encounter Visit Diagnoses Not on filedocumented in this encounter"
--- OUTSIDE RECORDS SUMMARY | ~2019-10-02 | XMS | Encounter Summary ---
Demographics + + + | Address | [address] | | | [place] [address] | + + + | Home Phone | | + + + | Preferred Language | Unknown | + + + | Marital Status | Single | + + + | Church Affiliation | UNK | + + + | Race | White | + + + | Ethnic Group | Not or | + + + Author + + + | Author | [facility] | + + + | Organization | [facility] | + + + | Address | Unknown | + + + | Phone | Unavailable | + + + Support + + +---------+ + | Name | Relationship | Address | Phone | + + +---------+ + | Valentine Qiu | ECON | Unknown | | + + +---------+ + Care Team Providers + +------+ + | Care Community Development Manager Name | Role | Phone | + +------+ + | Jennyfer Gresham MD | PCP | | + +------+ + Encounter Details +--------+ + + + + | Date | Type | Department | Care Team | Description | +--------+ + + + + | 09/07/ | Document-Sc | [facility] | Danielito Crockett MD,PhD | | | 2018 | anned | [facility] | [address] | | | | | at [place] [address] | Carrie Sanabria | | | | | [facility] | [place], [place] | | | | | Mailcode: [facility] | [address] | | | | | [place] [address] | [phone] | | | | | [phone] | | | +--------+ + + + [...]
--- OUTSIDE RECORDS SUMMARY | ~2019-10-02 | XMS | Encounter Summary ---
Demographics + + + | Address | [address] | | | [place] [address] | + + + | Home Phone | | + + + | Preferred Language | Unknown | + + + | Marital Status | Single | + + + | Rastafarian Affiliation | [id number] | + + + [...] + | Kyaw Woodson | ECON | [place], [place] | | + + + + + | Barbara Cabrera | ECON | Unknown | | + + + + + | Dimple Hathaway | ECON | Unknown | | + + + + + Care Team Providers + +------+ + | Care Screen Printing Supervisor Name | Role | Phone | + +------+ + PCP | Unavailable | + +------+ + Encounter Details +--------+ + + + + | Date | Type | Department | Care Team | Description | +--------+ + + + + | 10/04/ | Hospital | [facility] | Chrissie Walker DO | Unstable angina | | 2013 - | Encounter | [facility] | [address] | ([facility]); Elevated | | | | CARE FLOOR [address] | [place] [address] | troponin | | 10/06/ | | [address] | [phone] | | | 2012 | | [place], [place] | | | | | | [address] | | | | | | [phone] | | | +--------+ + + + [...] documented as of this encounter Discharge Summaries Sara Arvizu MD - 10/06/2012 10:18 AM PSTFormatting of this note might be different f rom the original. Discharge Summaries by Sara Arvizu MD at 10/06/12 1018 Author: Sara Arvizu MD Service: Hospitalist Author Type: Physician Filed: 10/06/12 1029 Date of Service: 10/06/12 1018 Status: Signed Inspector Repairer Sandstone: Sara Arvziu MD (Physician) [facility] Service: Hospitalist Discharge Summary Date of Admission: 10/04/2012 Date of Discharge: 10/06/2012 Discharge Provider: Sara Arvizu MD Treatment Team: Consulting Physician: Kei Charles MD Admitting Provider: Chrissie Walker DO Discharge Diagnoses: Principal Problem: *NSTEMI (non-ST elevated myocardial infarction) Active Problems: Diabetes mellitus HTN (hypertension) Dyslipidemia CAD (coronary artery disease) Ischemic cardiomyopathy Resolved Problems: * No resolved hospital problems. * BRIEF HISTORY OF PRESENTATION: The patient is a 42 y.o. female with significant past medical history of CAD, HTN, Dyslipid emia, DM II who presents as a transfer from [facility] for NSTEMI. CC of chest pain. Onse t was 2 days ago, with stable course since that time. The patient describes the pain as inte rmittent, pressure like and substernal in nature, does not radiate. Patient rates pain as a 9/10 in intensity. Associated symptoms are dyspnea and severe heavyness . Aggravating factor s are none. Alleviating factors are: antacids. Patient's cardiac risk factors are diabetes m ellitus, dyslipidemia, hypertension, obesity (BMI >= 30 kg/m2), sedentary lifestyle and smok ing/ tobacco exposure. Patient's risk factors for DVT/PE: none. Previous cardiac testing: ca rdiac cath with stenting 2011.Sees Dr Brambila on regular basis. She is scheduled for a defib rillator on October [address] Sánchez. Patient denies chest pain, SOB, ROCA, nausea, vomiting, weight gain or loss, constipation, di arrhea, dysuria, polydipsia, polyuria, heat or cold intolerance. ER findings: Elevated troponin 1.35. Abnormal EKG read by Dr Kwan with mild ST elevatio n in V1, V2, V3 that is unchanged from 09/3011 HOSPITAL COURSE: The patient had a cardiac cath done and was found to have a chronically occluded LAD and RC A. Collaterals appeared worse acording to Dr. Charles but attempts to open up occluded vesse ls were unsuccessful. She has an AICD placement scheduled for Oct 26. Her troponins have tren ded down. She is currently complaining of lower back pain and a rash on her leg where her pr osthesis is in contact with skin. She is discharged today for ff-up with her Pain management doctor at noon and she will not be given scripts for pain meds. She will ff-up with her PCP in a week. Script also given for BMP on Tuesday for a mildly elevated creatinine. Ff-up with transfer table operator in 2 weeks. All of her questions have been answered. The patient is discharged stable. Past Medical History Diagnosis Date Diabetes mellitus type I Hyperlipidemia Hypertension Pneumonia CHF (congestive heart failure) Old myocardial infarction Seizures Meth induced seizure two years ago CAD (coronary artery disease) 10/05/2012 Past Surgical History Procedure Date Below knee leg amputation left Laparotomy oopherectomy left Allergies Allergen Reactions Demerol (Meperidine) Rash Latex Other (See Comments) Hives Sulfa Antibiotics Rash Vicodin (Hydrocodone-Acetaminophen) Rash Prescriptions prior to admission Medication Sig Dispense Refill atorvastatin (LIPITOR) 40 MG tablet Take 40 mg by mouth nightly. clopidogrel (PLAVIX) 75 MG tablet Take 1 tablet by mouth daily. 30 tablet 0 furosemide (LASIX) 40 MG tablet Take 40 mg by mouth 2 (two) times daily. gabapentin (NEURONTIN) 800 MG tablet Take 1,600 mg by mouth daily. insulin aspart (NOVOLOG) 100 UNIT/ML injection Inject into the skin 4 (four) times emmy ly before meals and nightly. Sliding scale insulin detemir (LEVEMIR) 100 UNIT/ML injection Inject 148 Units into the skin every mo rning. magnesium oxide (MAG-OX 400) 400 MG tablet Take 1 tablet by mouth daily. 3 tablet 0 metFORMIN (GLUCOPHAGE) 500 MG tablet Take 500 mg by mouth 2 (two) times daily with meal s. nicotine (NICODERM CQ) 14 MG/24HR Place 1 patch onto the skin daily. pantoprazole (PROTONIX) 40 MG tablet Take 40 mg by mouth daily. pravastatin (PRAVACHOL) 40 MG tablet Take 40 mg by mouth daily. Respiratory Therapy Supplies [facility] Portable home oxygen as recommended by RT 1 each 0 SPIRONOLACTONE PO Take 10 mg by mouth daily. Venlafaxine HCl (EFFEXOR PO) Take 300 mg by mouth daily. DISCONTD: carvedilol (COREG) 3.125 MG tablet Take 1 tablet by mouth 2 (two) times daily with meals. 60 tablet 0 DISCONTD: carvedilol (COREG) 3.125 MG tablet Take 25 mg by mouth 2 (two) times daily wi th meals. DISCONTD: gabapentin (NEURONTIN) 800 MG tablet Take 800 mg by mouth 2 (two) times daily . 1600 mg every morning & 800 mg every lunch and dinner DISCONTD: hydrOXYzine (VISTARIL) 50 MG capsule Take 50 mg by mouth 4 (four) times daily . magnesium oxide (MAG-OX 400) 400 MG tablet Take 1 tablet by mouth daily. 3 tablet 0 DISCONTD: lisinopril (PRINIVIL,ZESTRIL) 2.5 MG tablet Take 1 tablet by mouth daily. 30 tablet 0 DISCONTD: lisinopril (PRINIVIL,ZESTRIL) 5 MG tablet Take 5 mg by mouth daily. DISCHARGE EXAM Vital Signs: BP 111/64 | Pulse 110 | Temp(Src) 98 F (36.7 C) (Oral) | Resp 20 | Ht 1.778 m (5' 10") | Wt 116.6 kg (257 lb 0.9 oz) | BMI 36.88 kg/m2 | SpO2 97% | ? No Physical Exam General Appearance: A & O x 3, no distress, appears stated age. Morbid obesity Head: Normocephalic, without obvious abnormality, atraumatic Eyes: PERRL, conjunctiva/corneas clear, EOM's intact. Ears: Normal external ear canals, no otorrhea Nose: Nares normal, no drainage or sinus tenderness Throat: Lips, mucosa, and tongue normal; gums normal Neck: Supple, symmetrical, trachea; no carotid bruit or JVD Back: Symmetric, no curvature, ROM normal, no CVA tenderness Lungs: Clear to auscultation bilaterally, respirations unlabored Chest Wall: No tenderness or deformity Heart: Regular rate and rhythm, S1 and S2 normal, no murmur, rub or gallop Abdomen: Soft, non-tender, bowel sounds active all four quadrants, no masses, no organomegaly Genitalia: Deferred Rectal: Deferred Extremities: Upper extremities no clubbing/ cyanosis/ erythema Right lower extremities atr aumatic, no cyanosis or edema. Left BKA Pulses: 2+ and symmetric all extremities Skin: Skin warm, texture and turgor normal, no rashes or lesions Lymph nodes: No gross lymphadenopathy. Neurologic: Psychiatric: CNII-XII intact, normal strength, sensation normal Affect/ mood normal, behavior and judgement normal DATA Results Procedure Component Value Units Date/Time POCT glucose [[id number]] (Abnormal) Collected:10/06/12 0516 GLUCOSE,POC SCREEN 293 (H) mg/dL Updated:10/06/1249 Basic metabolic panel [[id number]] (Abnormal) Collected:10/06/12416 Specimen Information:Blood Updated:10/06/12546 SODIUM 131 (L) mmol/L POTASSIUM 3.8 mmol/L CHLORIDE 96 (L) mmol/L CO2 26 mmol/L ANION GAP AGAP 14 mmol/L GLUCOSE 318 (H) mg/dL BUN 16 mg/dL CREATININE 1.28 (H) mg/dL BUN/CREAT 12 CALCIUM 8.4 (L) mg/dL EGFR 49 (L) mL/min/1.73m2 CBC w/auto diff (reflex to manual) [[id number]] (Abnormal) Collected:10/06/12416 Specimen Information:Blood Updated:10/06/12546 WBC 9.5 K/uL RBC 3.82 M/uL HGB 10.4 (L) g/dL HCT 31.0 (L) % MCV 81.3 fl MCH 27.2 pg MCHC 33.5 g/dL RDW SD 42.0 fl PLT 244 K/uL MPV 7.3 fl DIFF TYPE AUTOMATED NEUTROPHILS 64.4 % LYMPHOCYTES 27.6 % MONOCYTES 5.8 % EOSINOPHILS 1.9 % BASOPHILS 0.3 % NEUTROPHILS ABS 6.1 K/uL LYMPHOCYTES ABS 2.6 K/uL MONOCYTES ABS 0.5 K/uL EOSINOPHILS ABS 0.2 K/uL BASOPHILS ABS 0.0 K/uL POCT glucose [[id number]] (Abnormal) Collected:10/05/12 2142 GLUCOSE,POC SCREEN 376 (H) mg/dL Updated:10/05/12 2214 POCT glucose [[id number]] (Abnormal) Collected:10/05/12 1615 GLUCOSE,POC SCREEN 289 (H) mg/dL Updated:10/05/12 1639 POCT glucose [[id number]] (Abnormal) Collected:10/05/12 1204 GLUCOSE,POC SCREEN 284 (H) mg/dL Updated:10/05/12 1222 Troponin I [[id number]] (Abnormal) Collected:10/05/12 112 Specimen Information:Blood Updated:10/05/12 1208 TROPONIN I 1.21 (HH) ng/mL CK [[id number]] Collected:10/05/12 112 Specimen Information:Blood Updated:10/05/12 1208 CPK 73 U/L POC ACT, arterial [[id number]] (Abnormal) Collected:10/05/12 1010 POC ACT 232 (H) seconds Updated:10/05/12 1043 CK MB [[id number]] Collected:10/05/12 0458 MMB 3.5 ng/mL Updated:10/05/12 0637 CK-MB Index 4.1 Comprehensive metabolic panel [[id number]] (Abnormal) Collected:10/05/12 045 Specimen Information:Blood Updated:10/05/12 0637 SODIUM 135 mmol/L POTASSIUM 4.0 mmol/L CHLORIDE 99 mmol/L CO2 26 mmol/L ANION GAP AGAP 14 mmol/L GLUCOSE 314 (H) mg/dL BUN 14 mg/dL CREATININE 1.04 (H) mg/dL BUN/CREAT 14 CALCIUM 9.0 mg/dL TOTAL PROTEIN 6.5 g/dL Albumin 3.1 (L) g/dL GLOBULIN 3.4 g/dL A/G 0.9 (L) TBIL 0.3 mg/dL ALK PHOS 67 U/L AST 29 U/L ALT 23 U/L EGFR >60 mL/min/1.73m2 Lipid panel [[id number]] (Abnormal) Collected:10/05/12 0458 Specimen Information:Blood Updated:10/05/12 0637 CHOLESTEROL 160 mg/dL Triglycerides 1042 (H) mg/dL HDL CHOL 23 (L) mg/dL LDL CALC 71 mg/dL Magnesium [[id number]] Collected:10/05/12457 Specimen Information:Blood Updated:10/05/12636 MAGNESIUM 2.0 mg/dL Phosphorus [[id number]] Collected:10/05/12457 Specimen Information:Blood Updated:10/05/12636 PHOSPHORUS 3.7 mg/dL CPK [[id number]] Collected:10/05/12457 CPK 86 U/L Updated:10/05/12636 Troponin I [[id number]] (Abnormal) Collected:10/05/12457 TROPONIN I 2.00 (HH) ng/mL Updated:10/05/12636 POCT glucose [[id number]] (Abnormal) Collected:10/05/12 0204 GLUCOSE,POC SCREEN 347 (H) mg/dL Updated:10/05/12614 Glycohemoglobin A1c [[id number]] (Abnormal) Collected:10/05/12457 Specimen Information:Blood Updated:10/05/12608 HEMOGLOBIN A1C 8.1 (H) % ESTIMATED AVG GLUCOSE 186 (H) mg/dL POCT glucose [[id number]] (Abnormal) Collected:10/05/12 0558 GLUCOSE,POC SCREEN 302 (H) mg/dL Updated:10/05/12607 aPTT [[id number]] Collected:10/05/12457 APTT 31 seconds Updated:10/05/1248 CBC w/auto diff (reflex to manual) [[id number]] Collected:10/05/12457 Specimen Information:Blood Updated:10/05/12534 WBC 10.4 K/uL RBC 4.20 M/uL HGB 11.5 g/dL HCT 34.5 % MCV 82.2 fl MCH 27.3 pg MCHC 33.3 g/dL RDW SD 43.8 fl PLT 290 K/uL MPV 7.5 fl DIFF TYPE AUTOMATED NEUTROPHILS 57.7 % LYMPHOCYTES 34.6 % MONOCYTES 5.7 % EOSINOPHILS 1.6 % BASOPHILS 0.4 % NEUTROPHILS ABS 6.0 K/uL LYMPHOCYTES ABS 3.6 K/uL MONOCYTES ABS 0.6 K/uL EOSINOPHILS ABS 0.2 K/uL BASOPHILS ABS 0.0 K/uL Urinalysis w/micro (reflex to culture) [[id number]] (Abnormal) Collected:10/05/12 0155 Specimen Information:Urine Updated:10/05/12 021 COLOR YELLOW CLARITY CLEAR SPECIFIC GRAVITY,URINE 1.015 LEUKOCYTE ESTERASE NEGATIVE NITRITE NEGATIVE UROBILINOGEN 0.2 mg/dL PROTEIN NEGATIVE mg/dL PH,URINE 6.0 BLOOD NEGATIVE KETONES NEGATIVE mg/dL BILIRUBIN NEGATIVE GLUCOSE >1000 (A) mg/dL WBC 0-2 /hpf RBC 0-2 /hpf EPITHELIAL 26-50 /lpf BACTERIA TRACE (A) Repeat trop 1.21 Code Status: Full Code No discharge procedures on file. Follow up: Jhonny Bennett MD [phone] in 1 week Pain Specialist [facility] [address] [facility] [address] Kei Charles MD [address] [facility] [address] in 2 weeks BMP ordered for Tuesday10/10/12 Current Discharge Medication List START taking these medications Details aspirin 325 MG EC tablet Take 1 tablet by mouth daily with breakfast. Qty: 30 tablet, Refills: 11 nitroGLYCERIN (NITROSTAT) 0.[address] 1 tablet under the tongue every 5 (five) minutes as needed for Chest pain. Qty: 90 tablet, Refills: 0 ondansetron (ZOFRAN) 4 MG tablet Take 1 tablet by mouth every 6 (six) hours as needed. Qty: 20 tablet, Refills: 0 CONTINUE these medications which have CHANGED Details carvedilol (COREG) 25 MG tablet Take 1 tablet by mouth 2 (two) times daily with meals. Qty: 60 tablet, Refills: 11 lisinopril (PRINIVIL,ZESTRIL) 10 MG tablet Take 1 tablet by mouth daily. Qty: 30 tablet, Refills: 11 CONTINUE these medications which have NOT CHANGED Details atorvastatin (LIPITOR) 40 MG tablet Take 40 mg by mouth nightly. clopidogrel (PLAVIX) 75 MG tablet Take 1 tablet by mouth daily. Qty: 30 tablet, Refills: 0 furosemide (LASIX) 40 MG tablet Take 40 mg by mouth 2 (two) times daily. gabapentin (NEURONTIN) 800 MG tablet Take 1,600 mg by mouth daily. insulin aspart (NOVOLOG) 100 UNIT/ML injection Inject into the skin 4 (four) times daily before meals and nightly. Sliding scale insulin detemir (LEVEMIR) 100 UNIT/ML injection Inject 148 Units into the skin every morni ng. metFORMIN (GLUCOPHAGE) 500 MG tablet Take 500 mg by mouth 2 (two) times daily with meals. nicotine (NICODERM CQ) 14 MG/24HR Place 1 patch onto the skin daily. pantoprazole (PROTONIX) 40 MG tablet Take 40 mg by mouth daily. pravastatin (PRAVACHOL) 40 MG tablet Take 40 mg by mouth daily. Respiratory Therapy Supplies [facility] Portable home oxygen as recommended by RT Qty: 1 each, Refills: 0 SPIRONOLACTONE PO Take 10 mg by mouth daily. Venlafaxine HCl (EFFEXOR PO) Take 300 mg by mouth daily. magnesium oxide (MAG-OX 400) 400 MG tablet Take 1 tablet by mouth daily. Qty: 3 tablet, Refills: 0 STOP taking these medications hydrOXYzine (VISTARIL) 50 MG capsule Comments: Reason for Stopping: Discharge took >30 minutes, to include final examination, discussion of admission, and prep aration of prescriptions, instructions for on-going care, follow-up and documentation of dis charge summary. Sara Arvizu MD 10/06/2012 Elba edl toro in this encounter Medications at Time of [...] documented as of this encounter Progress Notes Cleopatra Pinzon RD - 10/05/2012 2:21 PM PST Progress Notes by Cleopatra Pinzon RD at 10/05/12 1421 Author: Cleopatra Pinzon RD Service: (none) Author Type: Spinner Open End Filed: 10/05/12 1425 Date of Service: 10/05/121420 Status: Signed Inspector Repairer Sandstone: Cleopatra Pinzon RD (Spinner Open End) Elevated blood sugars. Pt has been in the 200-300s today. At home, she takes 148 units Levemir q hs and about 28 units Novolog with meals. Is scheduled to get 50 units Levemir BID. Also has low dose correction Novolog ordered. R ecommend add 5 units Novolog with meals and increase to high dose correction. A1c is 8.1, pt states this is down from around 10 a couple months ago at her PCP's office. They have been working to get her blood sugars under better control. Says a year ago, A1c was in the 5.0 range. Pt's biggest concern right now is back pain. Will f/u Cleopatra Pinzon RD, CD, Inpatient Spinner Open End 10/05/2012 2:25 PM Sana Solano RPH - 0 10/05/2012 10:52 AM PST Progress Notes by Sana Park RPH at 10/05/12 1052 Author: Sana Park RPH Service: (none) Author Type: Pharmacist Filed: 10/05/12 1052 Date of Service: 10/05/121051 Status: Signed Inspector Repairer Sandstone: Sana Park RPH (Pharmacist) Renal Dosing Monitoring: Alondra Caballero 42 y.o. female Pharmacy dosing for renal function per Dr. Walker Plan per protocol: Wcis=905 ml/min Renal adjustments are not necessary Pharmacy will continue monitoring patient for appropriate dosing per renal function. 10/05/2012 10:52 AM Pharmacist: SANA PARK onversio n Transaction, Provider Unknown - 10/05/2012 9:59 AM PSTFormatting of this note might be di fferent from the original. Progress Notes by Fozia Sandoval RN at 10/05/12 0959 Author: Fozia Sandoval RN Service: (none) Author Type: Registered Nurse Filed: 10/05/12 1001 Date of Service: 10/05/1259 Status: Signed Inspector Repairer Sandstone: Fozia Sandoval RN (Registered Nurse) Pt sleeping at this time. When awakened, pt c/o chest pain rated at 2/10 on pain scale. Fa lls asleep easily. Educated pt regarding pending heart cath, all questions answered. onver jessica Transaction, Provider Unknown - 10/05/2012 8:54 AM PST Progress Notes by Fozia Sandoval RN at 10/05/12 0854 Author: Fozia Sandoval RN Service: (none) Author Type: Registered Nurse Filed: 10/05/12 0855 Date of Service: 10/05/12 0854 Status: Signed Inspector Repairer Sandstone: Fozia Sandoval RN (Registered Nurse) Pt c/o 7/10 midsternal chest pain described as heaviness. Nicolas CIFUENTES notified and medicate d with PRN nitro and morphine. onver jessica Transaction, Provider Unknown - 10/05/2012 8:53 AM PST Progress Notes by Aliya Thapa RPH at 10/05/12852 Author: Aliya Thapa RPH Service: (none) Author Type: Pharmacist Filed: 10/05/12852 Date of Service: 10/05/12852 Status: Signed Inspector Repairer Sandstone: Aliya Thapa RPH (Pharmacist) Talked to day RN (Fozia) she will clarify with MD & enter new order. ALIYA THAPA 10/05/2012 8:53 AM onver jessica Transaction, Provider Unknown - 10/05/2012 7:22 AM PST Progress Notes by Fozia Sandoval RN at 10/05/12721 Author: Fozia Sandoval RN Service: (none) Author Type: Registered Nurse Filed: 10/05/1259 Date of Service: 10/05/12721 Status: Signed Inspector Repairer Sandstone: Fozia Sandoval RN (Registered Nurse) Troponin 2.00. MD charles notified via phone. No new orders at this time. Will prep pt fo r cardiac angiogram in afternoon as per protocol. Pt currently NPO, except meds with sips onver jessica Transaction, Provider Unknown - 10/05/2012 6:19 AM PST Progress Notes by Dung Chow RPH at 10/05/12618 Author: Dung Chow RPH Service: (none) Author Type: Pharmacist Filed: 10/05/12618 Date of Service: 10/05/12618 Status: Signed Inspector Repairer Sandstone: Dung Chow RPH (Pharmacist) Clinical Pharmacy Note: Renal Monitoring Alondra Federico 42 y.o. female Ht Readings from Last 1 Encounters: 10/05/12 1.778 m (5' 10") Wt Readings from Last 1 Encounters: 10/05/12 120 kg (264 lb 8.8 oz) CREATININE Date Value Range Status 10/23/2011 0.8 0.6 - 1.2 mg/dL Final Testing performed [place] [facility] [place] [address];[place] [address] Creatinine clearance cannot be calculated - Pharmacy dosing for renal function per Dr. Walker. Currently, there are no medications needing to be adjusted. Pharmacy will continue to monit or for changes in medication orders and in renal function and adjust accordingly. Dung Chow RPh 10/05/2012 6:18 AM onver jessica Transaction, Provider Unknown - 10/05/2012 5:08 AM PST Progress Notes by Cathy Meng RN at 10/05/12507 Author: Cathy Meng RN Service: (none) Author Type: Registered Nurse Filed: 10/05/12511 Date of Service: 10/05/12507 Status: Signed Inspector Repairer Sandstone: Cathy Meng RN (Registered Nurse) Pt's SBP >100. notified. Nitro gtt d/c'ed per order. VSS. Will continue to monitor. docume nted in this encounter Plan of Treatment +--------+ + + + + | Date | Type | Specialty | Care Team | Description | +--------+ + + + + | 10/10/ | Office | Cardiology | Jerry Watts | | | 2019 | Visit | | MD [address] | | | | | | [facility] | | | | | | [place], [place] | | | | | | [address] | | | | | | | [...] [address] | | | | | | [place] [address] | | | | | | [phone] | | | | | | | | +--------+ + + + + | 11/25/ | Office | Nephrology | Kei Arthur MD | | | 2019 | Visit | | [address] [facility] | | | | | | [address] [place] | | | | | | [address] | | | | | | | | +--------+ + + + + documented as of this encounter Procedures + +--------+ + + + | Procedure Name | Priori | Date/Time | Associated Diagnosis | Comments | | | ty | | | | + +--------+ + + + | CV CARDIAC PROCEDURE | Routin | 10/05/2012 | | Results for this | | | e | 10:56 AM | | procedure are in the | | | | PST | | results section. | + +--------+ + + + | CV CARDIAC PROCEDURE | Routin | 10/05/2012 | | Results for this | | | e | 10:56 AM | | procedure are in the | | | | PST | | results section. | + +--------+ + + + documented in this encounter Results CV CARDIAC PROCEDURE (10/05/2012 10:56 AM PST) + + | Specimen | + + | | + + + + + | Narrative | Performed At | + + + | | | | | | | PROCEDURES 1. Left heart catheterization. 2. Selective coronary | | | angiogram. 3. Left ventriculogram. 4. Unsuccessful attempt for | | | angioplasty for the proximal left anterior descending chronic | | | total occlusion. HISTORY Ms. Caballero is a 42-year-old lady with | | | a known history of coronary artery disease, ischemic cardiomyopathy, | | | and other cardiac risk factors. She presented to the hospital with | | | chest pain at rest, found to have no acute ST or T changes, but she | | | had abnormal troponin levels with elevation at 2, so she was referred | | | for the left heart catheterization. DESCRIPTION OF PROCEDURE The | | | procedure's details, alternatives, and complications were explained | | | for the patient. Informed consent was obtained. The patient was | | | brought to the room and prepped in sterile fashion. Time out was | | | performed. Conscious sedation was administered by an independent | | | observer. The right wrist was anesthetized with 1% lidocaine. The | | | right radial artery was cannulized with a 6-[place]izen [place] Terumo sheath. | | | Then 2.5 mg verapamil, 200 mcg nitroglycerin, and 5000 international | | | units heparin were given through the sheath. Over a 260 exchange | | | wire, the 5-[place]izen [place] Blake catheter was advanced to the ascending | | | aorta, selectively engaging the right coronary artery. Contrast was | | | injected. Selective angiogram for the RCA was performed in different | | | views. Then it selectively engaged the left main. Contrast was | | | injected. Selective angiogram for the left main, LAD, and left | | | circumflex artery was performed in different views. Over a 260 | | | exchange wire, the Blake was exchanged for a 5-[place]izen [place] angled pigtail | | | catheter advanced to the left ventricle, and left ventriculogram was | | | performed in the ALVAREZ view. I notice that the patient has a 100% | | | occluded distal RCA and a 100% occluded proximal LAD and patent stent | | | in the left circumflex artery. Her previously known collaterals from | | | the right to the left LAD were worse, and decision was to attempt to | | | do angioplasty for the proximal LAD chronic total occlusion, | | | especially there is severe hypokinesia in the prior LAD territory on | | | the left ventriculogram. The patient was given only heparin, | | | bringing the ACT to more than 250 seconds. Over a 260 exchange wire, | | | the pigtail catheter was exchanged for a 6-[place]izen [place] XB 3.5 guide. A 300 | | | cm Prowater Flex wire with the support of a FineCross catheter was | | | advanced through the proximal LAD, down to the mid LAD. The wire was | | | removed and distal injections through the FineCross were done, | | | showing no significant flow in the LAD with no good targets for the | | | angioplasty. A couple of attempts to find different angles to advance | | | the wire were unsuccessful and so the Prowater wire was removed as | | | well as the FineCross. Final angiogram was done, showing no | | | complications. The guide was removed over the guidewire, and the | | | sheath was removed from the right radial artery, and a TR band was | | | applied with good hemostasis. The patient developed some shortness of | | | breath, thought to be some pulmonary congestion due to the contrast | | | used and the fluids, and so the patient was removed from the table | | | and put on the regular table in a sitting position and that helped | | | her breathing to improve. FINDINGS HEMODYNAMICS 1. Systemic | | | pressure 109/68. 2. Left ventricular end-diastolic pressure 45. 3. | | | No significant aortic stenosis by pullback. ANGIOGRAM 1. Left | | | main normal size, no significant stenosis. 2. LAD proximally 100% | | | occluded. Mid and distal are not well visualized. 3. The first | | | diagonal is small in size. Second and third diagonals are not | | | well visualized. 4. Left circumflex artery proximally normal, no | | | significant stenosis. Mid normal size, patent stent. Distal small | | | in the AV groove artery. 5. First obtuse marginal is absent. Second | | | and third obtuse marginal arteries are normal size, no | | | significant stenosis. 6. RCA proximal and mid normal size, no | | | significant stenosis. Distal RCA normal size, 100% occluded. 7. | | | The right PDA fills faintly by [id number] collateral. The right AV | | | groove artery is not well visualized. 8. Right dominant | | | circulation. LEFT VENTRICULOGRAM Left ventriculogram showed | | | severe systolic dysfunction with an EF of 30% to 35% and global | | | hypokinesia and no significant mitral valve regurgitation. | | | CONTRAST USED 130 mL. COMPLICATIONS Transient shortness of | | | breath while the patient was lying flat in the bed, and she improved | | | when she was sitting up after the heart catheterization. | | | ESTIMATED BLOOD LOSS Less than 20 mL. CONCLUSIONS 1. | | | Three-vessel disease with patent stent in the mid left circumflex | | | artery. 2. Severe ischemic cardiomyopathy with ejection fraction of | | | 30% to 35%. 3. Unsuccessful angioplasty attempt of the proximal left | | | anterior descending chronic total occlusion. 4. Normal systemic | | | pressure. 5. Severe elevation of left ventricular end-diastolic | | | pressure. 6. No significant aortic stenosis. 7. No significant | | | mitral valve regurgitation. RECOMMENDATIONS 1. Medical management | | | and aggressive risk factor modifications. 2. Refer for an outpatient | | | AICD implantation for primary prevention. 3. Evaluate clinical | | | condition down the road for additional aggressive measures to | | | improve the congestive heart failure condition. Read by KEI | | | MD NICOLAS 10/05/2012 11:49 A | | + + + + + | Procedure Note | + + | Marcelo Matias Conversion - 05/11/2019 5:56 PM PDT | | | | PROCEDURES | | 1. Left heart catheterization. | | 2. Selective coronary angiogram. | | 3. Left ventriculogram. | | 4. Unsuccessful attempt for angioplasty for the proximal left anterior | | descending chronic total occlusion. | | | | HISTORY | | Ms. Caballero is a 42-year-old lady with a known history of coronary artery | | disease, ischemic cardiomyopathy, and other cardiac risk factors. She | | presented to the hospital with chest pain at rest, found to have no acute | | ST or T changes, but she had abnormal troponin levels with elevation at 2, | | so she was referred for the left heart catheterization. | | | | DESCRIPTION OF PROCEDURE | | The procedure's details, alternatives, and complications were explained | | for the patient. Informed consent was obtained. The patient was brought to | | the room and prepped in sterile fashion. Time out was performed. Conscious | | sedation was administered by an independent observer. The right wrist was | | anesthetized with 1% lidocaine. The right radial artery was cannulized | | with a 6-Citizen [place] Terumo sheath. Then 2.5 mg verapamil, 200 mcg | | nitroglycerin, and 5000 international units heparin were given through the | | sheath. Over a 260 exchange wire, the 5-Citizen [place] Blake catheter was advanced | | to the ascending aorta, selectively engaging the right coronary artery. | | Contrast was injected. Selective angiogram for the RCA was performed in | | different views. Then it selectively engaged the left main. Contrast was | | injected. Selective angiogram for the left main, LAD, and left circumflex | | artery was performed in different views. Over a 260 exchange wire, the | | Blake was exchanged for a 5-Citizen [place] angled pigtail catheter advanced to the | | left ventricle, and left ventriculogram was performed in the ALVAREZ view. | | | | I notice that the patient has a 100% occluded distal RCA and a 100% | | occluded proximal LAD and patent stent in the left circumflex artery. Her | | previously known collaterals from the right to the left LAD were worse, | | and decision was to attempt to do angioplasty for the proximal LAD chronic | | total occlusion, especially there is severe hypokinesia in the prior LAD | | territory on the left ventriculogram. | | | | The patient was given only heparin, bringing the ACT to more than 250 | | seconds. Over a 260 exchange wire, the pigtail catheter was exchanged for | | a 6-Citizen [place] XB 3.5 guide. A 300 cm [employer] Flex wire with the support of a | | FineCross catheter was advanced through the proximal LAD, down to the mid | | LAD. The wire was removed and distal injections through the FineCross were | | done, showing no significant flow in the LAD with no good targets for the | | angioplasty. A couple of attempts to find different angles to advance the | | wire were unsuccessful and so the [place] wire was removed as well as the | | FineCross. Final angiogram was done, showing no complications. | | | | The guide was removed over the guidewire, and the sheath was removed from | | the right radial artery, and a TR band was applied with good hemostasis. | | The patient developed some shortness of breath, thought to be some | | pulmonary congestion due to the contrast used and the fluids, and so the | | patient was removed from the table and put on the regular table in a | | sitting position and that helped her breathing to improve. | | | | FINDINGS | | | | HEMODYNAMICS | | 1. Systemic pressure 109/68. | | 2. Left ventricular end-diastolic pressure 45. | | 3. No significant aortic stenosis by pullback. | | | | ANGIOGRAM | | 1. Left main normal size, no significant stenosis. | | 2. LAD proximally 100% occluded. Mid and distal are not well visualized. | | 3. The first diagonal is small in size. Second and third diagonals are not | | well visualized. | | 4. Left circumflex artery proximally normal, no significant stenosis. Mid | | normal size, patent stent. Distal small in the AV groove artery. | | 5. First obtuse marginal is absent. Second and third obtuse marginal | | arteries are normal size, no significant stenosis. | | 6. RCA proximal and mid normal size, no significant stenosis. Distal RCA | | normal size, 100% occluded. | | 7. The right PDA fills faintly by [id number] collateral. The right AV | | groove artery is not well visualized. | | 8. Right dominant circulation. | | | | LEFT VENTRICULOGRAM | | Left ventriculogram showed severe systolic dysfunction with an EF of 30% | | to 35% and global hypokinesia and no significant mitral valve | | regurgitation. | | | | CONTRAST USED | | 130 mL. | | | | COMPLICATIONS | | Transient shortness of breath while the patient was lying flat in the bed, | | and she improved when she was sitting up after the heart catheterization. | | | | | | ESTIMATED BLOOD LOSS | | Less than 20 mL. | | | | CONCLUSIONS | | 1. Three-vessel disease with patent stent in the mid left circumflex | | artery. | | 2. Severe ischemic cardiomyopathy with ejection fraction of 30% to 35%. | | 3. Unsuccessful angioplasty attempt of the proximal left anterior | | descending chronic total occlusion. | | 4. Normal systemic pressure. | | 5. Severe elevation of left ventricular end-diastolic pressure. | | 6. No significant aortic stenosis. | | 7. No significant mitral valve regurgitation. | | | | RECOMMENDATIONS | | 1. Medical management and aggressive risk factor modifications. | | 2. Refer for an outpatient AICD implantation for primary prevention. | | 3. Evaluate clinical condition down the road for additional aggressive | | measures to improve the congestive heart failure condition. | | | | Read by KEI CHARLES MD 10/05/2012 11:49 A | | | | | + + CV CARDIAC PROCEDURE (10/05/2012 10:56 AM PST) + + | Specimen | + + | | + + + + + | Narrative | Performed At | + + + | | | | | | | PROCEDURES 1. Left heart catheterization. 2. Selective coronary | | | angiogram. 3. Left ventriculogram. 4. Unsuccessful attempt for | | | angioplasty for the proximal left anterior descending chronic | | | total occlusion. HISTORY Ms. Caballero is a 42-year-old lady with | | | a known history of coronary artery disease, ischemic cardiomyopathy, | | | and other cardiac risk factors. She presented to the hospital with | | | chest pain at rest, found to have no acute ST or T changes, but she | | | had abnormal troponin levels with elevation at 2, so she was referred | | | for the left heart catheterization. DESCRIPTION OF PROCEDURE The | | | procedure's details, alternatives, and complications were explained | | | for the patient. Informed consent was obtained. The patient was | | | brought to the room and prepped in sterile fashion. Time out was | | | performed. Conscious sedation was administered by an independent | | | observer. The right wrist was anesthetized with 1% lidocaine. The | | | right radial artery was cannulized with a 6-[place]izen [place] Terumo sheath. | | | Then 2.5 mg verapamil, 200 mcg nitroglycerin, and 5000 international | | | units heparin were given through the sheath. Over a 260 exchange | | | wire, the 5-Citizen [place] Blake catheter was advanced to the ascending | | | aorta, selectively engaging the right coronary artery. Contrast was | | | injected. Selective angiogram for the RCA was performed in different | | | views. Then it selectively engaged the left main. Contrast was | | | injected. Selective angiogram for the left main, LAD, and left | | | circumflex artery was performed in different views. Over a 260 | | | exchange wire, the Blake was exchanged for a 5-[place]izen [place] angled pigtail | | | catheter advanced to the left ventricle, and left ventriculogram was | | | performed in the ALVAREZ view. I notice that the patient has a 100% | | | occluded distal RCA and a 100% occluded proximal LAD and patent stent | | | in the left circumflex artery. Her previously known collaterals from | | | the right to the left LAD were worse, and decision was to attempt to | | | do angioplasty for the proximal LAD chronic total occlusion, | | | especially there is severe hypokinesia in the prior LAD territory on | | | the left ventriculogram. The patient was given only heparin, | | | bringing the ACT to more than 250 seconds. Over a 260 exchange wire, | | | the pigtail catheter was exchanged for a 6-[place]izen [place] XB 3.5 guide. A 300 | | | cm [employer] Flex wire with the support of a FineCross catheter was | | | advanced through the proximal LAD, down to the mid LAD. The wire was | | | removed and distal injections through the FineCross were done, | | | showing no significant flow in the LAD with no good targets for the | | | angioplasty. A couple of attempts to find different angles to advance | | | the wire were unsuccessful and so the [place] wire was removed as | | | well as the FineCross. Final angiogram was done, showing no | | | complications. The guide was removed over the guidewire, and the | | | sheath was removed from the right radial artery, and a TR band was | | | applied with good hemostasis. The patient developed some shortness of | | | breath, thought to be some pulmonary congestion due to the contrast | | | used and the fluids, and so the patient was removed from the table | | | and put on the regular table in a sitting position and that helped | | | her breathing to improve. FINDINGS HEMODYNAMICS 1. Systemic | | | pressure 109/68. 2. Left ventricular end-diastolic pressure 45. 3. | | | No significant aortic stenosis by pullback. ANGIOGRAM 1. Left | | | main normal size, no significant stenosis. 2. LAD proximally 100% | | | occluded. Mid and distal are not well visualized. 3. The first | | | diagonal is small in size. Second and third diagonals are not | | | well visualized. 4. Left circumflex artery proximally normal, no | | | significant stenosis. Mid normal size, patent stent. Distal small | | | in the AV groove artery. 5. First obtuse marginal is absent. Second | | | and third obtuse marginal arteries are normal size, no | | | significant stenosis. 6. RCA proximal and mid normal size, no | | | significant stenosis. Distal RCA normal size, 100% occluded. 7. | | | The right PDA fills faintly by [id number] collateral. The right AV | | | groove artery is not well visualized. 8. Right dominant | | | circulation. LEFT VENTRICULOGRAM Left ventriculogram showed | | | severe systolic dysfunction with an EF of 30% to 35% and global | | | hypokinesia and no significant mitral valve regurgitation. | | | CONTRAST USED 130 mL. COMPLICATIONS Transient shortness of | | | breath while the patient was lying flat in the bed, and she improved | | | when she was sitting up after the heart catheterization. | | | ESTIMATED BLOOD LOSS Less than 20 mL. CONCLUSIONS 1. | | | Three-vessel disease with patent stent in the mid left circumflex | | | artery. 2. Severe ischemic cardiomyopathy with ejection fraction of | | | 30% to 35%. 3. Unsuccessful angioplasty attempt of the proximal left | | | anterior descending chronic total occlusion. 4. Normal systemic | | | pressure. 5. Severe elevation of left ventricular end-diastolic | | | pressure. 6. No significant aortic stenosis. 7. No significant | | | mitral valve regurgitation. RECOMMENDATIONS 1. Medical management | | | and aggressive risk factor modifications. 2. Refer for an outpatient | | | AICD implantation for primary prevention. 3. Evaluate clinical | | | condition down the road for additional aggressive measures to | | | improve the congestive heart failure condition. Read by KEI | | | MD NICOLAS 10/05/2012 11:49 A | | + + + + + | Procedure Note | + + | FlorencioMarcelo Conversion - 05/11/2019 5:56 PM PDT | | | | PROCEDURES | | 1. Left heart catheterization. | | 2. Selective coronary angiogram. | | 3. Left ventriculogram. | | 4. Unsuccessful attempt for angioplasty for the proximal left anterior | | descending chronic total occlusion. | | | | HISTORY | | Ms. Caballero is a 42-year-old lady with a known history of coronary artery | | disease, ischemic cardiomyopathy, and other cardiac risk factors. She | | presented to the hospital with chest pain at rest, found to have no acute | | ST or T changes, but she had abnormal troponin levels with elevation at 2, | | so she was referred for the left heart catheterization. | | | | DESCRIPTION OF PROCEDURE | | The procedure's details, alternatives, and complications were explained | | for the patient. Informed consent was obtained. The patient was brought to | | the room and prepped in sterile fashion. Time out was performed. Conscious | | sedation was administered by an independent observer. The right wrist was | | anesthetized with 1% lidocaine. The right radial artery was cannulized | | with a 6-Citizen [place] Terumo sheath. Then 2.5 mg verapamil, 200 mcg | | nitroglycerin, and 5000 international units heparin were given through the | | sheath. Over a 260 exchange wire, the 5-Citizen [place] Blake catheter was advanced | | to the ascending aorta, selectively engaging the right coronary artery. | | Contrast was injected. Selective angiogram for the RCA was performed in | | different views. Then it selectively engaged the left main. Contrast was | | injected. Selective angiogram for the left main, LAD, and left circumflex | | artery was performed in different views. Over a 260 exchange wire, the | | Blake was exchanged for a 5-Citizen [place] angled pigtail catheter advanced to the | | left ventricle, and left ventriculogram was performed in the ALVAREZ view. | | | | I notice that the patient has a 100% occluded distal RCA and a 100% | | occluded proximal LAD and patent stent in the left circumflex artery. Her | | previously known collaterals from the right to the left LAD were worse, | | and decision was to attempt to do angioplasty for the proximal LAD chronic | | total occlusion, especially there is severe hypokinesia in the prior LAD | | territory on the left ventriculogram. | | | | The patient was given only heparin, bringing the ACT to more than 250 | | seconds. Over a 260 exchange wire, the pigtail catheter was exchanged for | | a 6-Citizen [place] XB 3.5 guide. A 300 cm [employer] Flex wire with the support of a | | FineCross catheter was advanced through the proximal LAD, down to the mid | | LAD. The wire was removed and distal injections through the FineCross were | | done, showing no significant flow in the LAD with no good targets for the | | angioplasty. A couple of attempts to find different angles to advance the | | wire were unsuccessful and so the [place] wire was removed as well as the | | FineCross. Final angiogram was done, showing no complications. | | | | The guide was removed over the guidewire, and the sheath was removed from | | the right radial artery, and a TR band was applied with good hemostasis. | | The patient developed some shortness of breath, thought to be some | | pulmonary congestion due to the contrast used and the fluids, and so the | | patient was removed from the table and put on the regular table in a | | sitting position and that helped her breathing to improve. | | | | FINDINGS | | | | HEMODYNAMICS | | 1. Systemic pressure 109/68. | | 2. Left ventricular end-diastolic pressure 45. | | 3. No significant aortic stenosis by pullback. | | | | ANGIOGRAM | | 1. Left main normal size, no significant stenosis. | | 2. LAD proximally 100% occluded. Mid and distal are not well visualized. | | 3. The first diagonal is small in size. Second and third diagonals are not | | well visualized. | | 4. Left circumflex artery proximally normal, no significant stenosis. Mid | | normal size, patent stent. Distal small in the AV groove artery. | | 5. First obtuse marginal is absent. Second and third obtuse marginal | | arteries are normal size, no significant stenosis. | | 6. RCA proximal and mid normal size, no significant stenosis. Distal RCA | | normal size, 100% occluded. | | 7. The right PDA fills faintly by [id number] collateral. The right AV | | groove artery is not well visualized. | | 8. Right dominant circulation. | | | | LEFT VENTRICULOGRAM | | Left ventriculogram showed severe systolic dysfunction with an EF of 30% | | to 35% and global hypokinesia and no significant mitral valve | | regurgitation. | | | | CONTRAST USED | | 130 mL. | | | | COMPLICATIONS | | Transient shortness of breath while the patient was lying flat in the bed, | | and she improved when she was sitting up after the heart catheterization. | | | | | | ESTIMATED BLOOD LOSS | | Less than 20 mL. | | | | CONCLUSIONS | | 1. Three-vessel disease with patent stent in the mid left circumflex | | artery. | | 2. Severe ischemic cardiomyopathy with ejection fraction of 30% to 35%. | | 3. Unsuccessful angioplasty attempt of the proximal left anterior | | descending chronic total occlusion. | | 4. Normal systemic pressure. | | 5. Severe elevation of left ventricular end-diastolic pressure. | | 6. No significant aortic stenosis. | | 7. No significant mitral valve regurgitation. | | | | RECOMMENDATIONS | | 1. Medical management and aggressive risk factor modifications. | | 2. Refer for an outpatient AICD implantation for primary prevention. | | 3. Evaluate clinical condition down the road for additional aggressive | | measures to improve the congestive heart failure condition. | | | | Read by KEI CHARLES MD 10/05/2012 11:49 A | | | | | + + documented in this encounter Visit Diagnoses + + | Diagnosis | + + | Unstable angina (HCC) Intermediate coronary syndrome | + + | Elevated troponin Other abnormal blood chemistry | + + documented in this encounter
--- OUTSIDE RECORDS SUMMARY | ~2019-10-02 | XMS | Encounter Summary ---
Demographics + + + | Address | [address] | | | [place] [address] | + + + | Home Phone | | + + + | Preferred Language | Unknown | + + + | Marital Status | Single | + + + | Alevism Affiliation | 1041 | + + + | Race | Unknown | + + + | Ethnic Group | Unknown | + + + Author + + + | Author | [facility] | | | and [place] | + + + | Organization | [facility] | | | and [place] | + + + | Address | Unknown | + + + | Phone | Unavailable | + + + Support + + + + + | Name | Relationship | Address | Phone | + + + + + | Kyaw Woodson | ECON | [place], [place] | | + + + + + | Barbara Cabrera | ECON | Unknown | | + + + + + | Dimple Hathaway | ECON | Unknown | | + + + + + Care Team Providers + +------+ + | Care Teller Supervisor Name | Role | Phone | + +------+ + PCP | Unavailable | + +------+ + Encounter Details +--------+ + + + + | Date | Type | Department | Care Team | Description | +--------+ + + + + | 06/18/ | Hospital | [facility] | Fany Ceja, | | | 2012 - | Encounter | [facility] | [address] | | | | | CARDIAC TRANSPLANT | [address] [place] | | | 06/20/ | | [address] | [address] | | | 2012 | | [place] | [phone] | | | | | [address] | | | | | | [phone] | | | +--------+ + + + [...] 1970 ADMISSION DATE: 06/19/2013 DISCHARGE DATE: 06/20/2013 [id number] / [id number] DISCHARGE DIAGNOSES: 1. Ischemic cardiomyopathy: A. History of extensive coronary disease. B. Status post extensive anterior wall myocardial infarction, left ventricular ejection f raction 30%. C. Implantation of dual-chamber ICD under MADIT II criteria in 2011. D. Acute lead fract ure, 06/14/2013. 2. Complete device explantation this admission with placement of a [employer] eGifter leadless implantable defibrillator. The device is a model 1010, serial #[id number]. 3. Active smoker. 4. Hypertension. 5. Insulin-requiring [...] ProAir as needed. STEVE HINTONCEY Sher ADM:06/18/13 [id number] 06/20/13 DIS [place] DISCHARGE SUMMARY [id number] [facility] SOPHIA Bhakta B [facility] Fayn Ceja MD R THIS REPORT IS CONFIDENTIAL AND NOT TO BE RELEASED WITHOUT PROPER AUTHORIZATION. [facility] Spironolactone 25 mg twice daily. Venlafaxine 150 [...] extr acted and Dr. Ceja implanted a [employer] leadless ICD without incident. DISPOSITION: She was observed overnight and sent home the following day. She will see her primary provider in a week for a wound check, and we will do a device check in three months , either in the [place] office or in [place]. FARHAN Gurrola MD A A YOU/sacha #[id number] cc: MD Jordan Garcia PA-C Stuart Swena, MD Saad Tabbara, MD Electronically Signed 07/10/13 1629 SOPHIA Bhakta Electronically Signed 06/25/13 2149 Fany Ceja MD MARY JANE,ADAM Olivarez ADM:06/18/13 [id number] 06/20/13 DIS [place] DISCHARGE SUMMARY [id number] [facility] SOPHIA Bhakta B [facility] MD Karen Garcia THIS REPORT IS CONFIDENTIAL AND NOT TO BE RELEASED WITHOUT PROPER AUTHORIZATION.Electronica lly signed by SOPHIA Bhakta at 07/10/2013 4:30 PM Jordan Monk PA - 06/20 9:47 AM PDT PATIENT NAME: ADAM HINTON Sex/Age: F / 43Y : 1970 ADMISSION DATE: 06/19/2013 DISCHARGE DATE: 06/20/2013 [id number] / [id number] DISCHARGE DIAGNOSES: 1. Ischemic cardiomyopathy: A. History of extensive coronary disease. B. Status post extensive anterior wall myocardial infarction, left ventricular ejection f raction 30%. C. Implantation of dual-chamber ICD under MADIT II criteria in 2011. D. Acute lead fract ure, 06/14/2013. 2. Complete device explantation this admission with placement of a [employer] neous leadless implantable defibrillator. The device is a model 1010, serial #[id number]. 3. Active smoker. 4. Hypertension. 5. Insulin-requiring [...] needed. ProAir as needed. ADAM HINTON ADM:06/18/13 [id number] 06/20/13 DIS [place] DISCHARGE SUMMARY [id number] [facility] SOPHIA Bhakta [facility] MD Karen Garcia THIS REPORT IS CONFIDENTIAL AND NOT TO BE RELEASED WITHOUT PROPER AUTHORIZATION. [facility] Spironolactone 25 mg twice daily. Venlafaxine 150 [...] extr acted and Dr. Ceja implanted a [facility] leadless ICD without incident. DISPOSITION: She was observed overnight and sent home the following day. She will see her primary provider in a week for a wound check, and we will do a device check in three months , either in the [place] office or in [place]. FARHAN Gurrola MD A A YOU/sacha #[id number] cc: MD Jordan Garcia PA-C Stuart Swena, MD Saad Tabbara, MD Electronically Signed 06/25/13 2149 Fany Ceja MD ADAM HINTON ADM:06/18/13 [id number] 06/20/13 DIS [place] DISCHARGE SUMMARY [id number] [facility] SOPHIA Bhakta ES B [facility] MD Karen Garcia THIS REPORT IS CONFIDENTIAL [...] [address] | | | | | | [facility] | | | | | | [place] | | | | | | [id number] | | | | | | | [...] | | | | | [place] [address] | | | | | | [phone] | | | | | | | | +--------+ + + + + | 11/25/ | Office | Nephrology | Kei Arthur MD | | | 2019 | Visit | | [address] [facility] | | | | | | [address] [place], [place] | | | | | | [address] | | | | | | | [...] + | [facility] | [address] | [place] [address] | | | [facility] | [...] SACRED | [address] | [place] [address] | | | [facility] | | | | | LABORATORY [...] + + | [facility] | [address] | [place] [address] | | | [facility] | | | | | LABORATORY | [...] + | [facility] | [address] | [place] [address] | | | [facility] | [...] - 1.030 | [facility] | | | [place] | | | [facility] | | | [...] + + | [facility] | [address] | [place] [address] | | | [facility] | | | | | LABORATORY | [...] + | [facility] | [address] | [place] [address] | | | [facility] | | | | | LABORATORY | [...] + + | [facility] | [address] | [place] [address] | | | [facility] | | | | | LABORATORY | | | | + + + + + XR Chest PA or AP (06/18/2013 11:29 AM PDT) + + | Specimen | + + | | + + + + + | Narrative | Performed At | + + + | Exam Performed Location: [facility] CHEST | MISCELANIOUS | | PORTABLE CLINICAL [...] | pneumothorax. Lungs grossly clear. S: SQ ([id number]) Signed by: | | | DALE HERNANDEZ MD | | + + + + + | Procedure Note | + + | Marcelo Matias Conversion - 07/11/2013 5:42 PM PDT Exam Performed Location: [facility] | | at [facility] PORTABLECLINICAL INFORMATION:Shortness of breath post ICD | | revision.COMPARISON:None.FINDINGS:Left subclavian ICD seen previously out. New AICD | | lead extendingfrom right inferior heart towards carri region. Generator in leftlateral | | chest wall. No pneumothorax.IMPRESSION:Revision of AICD. No pneumothorax. Lungs | | grossly clear.S: SQ ([id number]) Signed by: DALE HERNANDEZ MD | | | |COMPARISON: | |None. | | | |FINDINGS: | |Left subclavian ICD seen previously out. New AICD lead extending | |from right inferior heart towards carri region. Generator in left | |lateral chest wall. No pneumothorax. | | | |IMPRESSION: | |Revision of AICD. No pneumothorax. Lungs grossly clear. | | | | | |S: SQ ([id number]) Signed by: DALE HERNANDEZ MD | + + + +---------+ + + | Performing | Address | City/State/Zipcode | Phone Number | | Organization | | | | + +---------+ + + | [facility]IS[facility]OUS LAB | | | [phone] | + +---------+ + + | MISCELANIOUS LAB | | | [phone] | + +---------+ + + POC Glucose [...] + + | [facility] | [address] | [place] [address] | | | [facility] | | | | | LABORATORY | [...] SACRED | | | | 94 mg/dL. [place] | | HEART | | | | [...] + + | [facility] | [address] | [place] [address] | | | [facility] | [...] + + | MA[facility] | [address] | [place] [address] | | | [facility] | | | | | LABORATORY | | | | + + + + + documented in this encounter Visit Diagnoses Not on filedocumented in this encounter"
--- OUTSIDE RECORDS SUMMARY | ~2019-10-02 | XMS | Encounter Summary ---
Demographics + + + | Address | [address] | | | [place] [address] | + + + | Home Phone | | + + + | Preferred Language | Unknown | + + + | Marital Status | Single | + + + | Oriental Orthodox Affiliation | 1041 | + + + | Race | Unknown | + + + | Ethnic Group | Unknown | + + + Author + + + | Author | [facility] | | | and [place] | + + + | Organization | [facility] | | | and [place] | + + + | Address | Unknown | + + + | Phone | Unavailable | + + + Support + + + + + | Name | Relationship | Address | Phone | + + + + + | Kyaw Woodson | ECON | [place], [place] | | + + + + + | Barbara Cabrera | ECON | Unknown | | + + + + + | Dimple Hathaway | ECON | Unknown | | + + + + + Care Team Providers + +------+ + | Care Supervisor Tunnel Heading Name | Role | Phone | + +------+ + | Daniel Land NP | PCP | | + +------+ + Encounter Details +--------+ + + + + | Date | Type | Department | Care Team | Description | +--------+ + + + + | 06/07/ | Orders Only | [facility] | Conversion | | | 2016 | | NEPRHOLOGY [place] | Transaction, | | | | | [address] | Provider Unknown | | | | | [address] [place] | [phone] | | | | | [address] | | | | | | [phone] | | | +--------+ + + + [...] | | | | | [facility] | | | | | | [place] | | | | | | [address] | | | | | | | [...] | | | | | [place] [address] | | | | | | [phone] | | | | | | | | +--------+ + + + + | 11/25/ | Office | Nephrology | Kei Arthur MD | | | 2019 | Visit | | [address] [facility] | | | | | | [address] [place] | | | | | | [address] | | | | | | | | +--------+ + + + + documented as of this encounter Procedures + +--------+ + + + | Procedure Name | Priori | Date/Time | Associated Diagnosis | Comments | | | ty | | | | + +--------+ + + + | EXTERNAL LAB: CBC | Routin | 06/07/2016 | | Results for this | | | e | 12:00 AM | | procedure are in the | | | | PDT | | results section. | + +--------+ + + + | RENAL FUNCTION PANEL | Routin | 06/07/2016 | | Results for this | | | e | 12:00 AM | | procedure are in the | | | | PDT | | results section. | + +--------+ + + + documented in this encounter Results External Lab: CBC (06/07/2016 12:00 AM PDT) + + + + + + | Component | Value | Ref Range | Performed | Pathologist | | | | | At | Signature | + + + + + + | WBC | 8.7 | 4.5 - 11.0 10 | EXTERNAL | | | | | | LAB | | + + + + + + | RED CELL | 3.56 (A) | 3.8 - 5.1 10 | EXTERNAL | | | COUNT | | | LAB | | + + + + + + | Hgb | 8.7 (A) | 12.0 - 16.0 | EXTERNAL | | | | | g/dL | LAB | | + + + + + + | Hematocrit, | 27.7 (A) | 35 - 45 % | EXTERNAL | | | POC | | | LAB | | + + + + + + | MCV | 77.9 (A) | 81 - 99 fL | EXTERNAL | | | | | | LAB | | + + + + + + | MCH | 24 (A) | 27 - 33 pg | EXTERNAL | | | | | | LAB | | + + + + + + | MCHC | 31 | 30 - 36 g/dL | EXTERNAL | | | | | | LAB | | + + + + + + | Platelet | 251 | 140 - 440 K/ L | EXTERNAL | | | Count | | | LAB | | | Plasma | | | | | + + + + + + | RDW-CV | 17.1 (A) | 10.5 - 15.0 % | [...] + + + | % Segmented | 70.2 | 39 - 80 % | EXTERNAL | | | | | | LAB | | | Neutrophils | | | | | + + + + + + | % | 21.6 (A) | 24 - 44 % | EXTERNAL | | | Lymphocytes | | | LAB | | + + + + + + | % Monocytes | 5.0 | 0 - 12 % | EXTERNAL | | | | | | LAB | | + + + + + + | % | 2.4 | 0 - 6 % | EXTERNAL | | | Eosinophils | | | LAB | | + + + + + + | % Basophils | 0.8 | 0 - 2 % | EXTERNAL [...] + +---------+ + + Renal Function Panel (06/07/2016 12:00 AM PDT) + + + + + + | Component | Value | Ref Range | Performed | Pathologist | | | | | At | Signature | + + + + + + | Glucose, | 55 (A) | 70 - 100 mg/dL | EXTERNAL | | | Fasting | | | LAB | | + + + + + + | BUN | 47 (A) | 6 - 23 mg/dL | EXTERNAL | | | | | | LAB | | + + + + + + | Creatinine | 3.45 (A) | 0.60 - 1.35 | EXTERNAL | | | | | mg/dL | LAB | | + + + + + + | PHOSPHORUS | | mg/dL | EXTERNAL | | | | | | LAB | | + + + + + + | Albumin | 4.2 | 3.5 - 5.0 | EXTERNAL | | | | | | LAB | | + + + + + + | Na | 136 | 132 - 143 | EXTERNAL | | | | | mmol/L | LAB | | + + + + + + | K | 4.4 | 3.6 - 5.1 | EXTERNAL | | | | | mmol/L | LAB | | + + + + + + | Cl | 101 | 95 - 112 mmol/L | EXTERNAL | | | | | | LAB | | + + + + + + | CO2 | 22 | 19 - 31 mmol/L | EXTERNAL | | | | | | LAB | | + + + + + + | Anion Gap | 17.4 | 7 - 21 mmol/L | EXTERNAL | | | | | | LAB | | + + + + + + | eGFR if not | | | EXTERNAL | | | | | | LAB | | | ROMANIAN | | | | | + + + + + + | Phosphorus, | 5.5 (A) | 2.5 - 5.0 | EXTERNAL | | | Inorganic | | | LAB | | + + + + + + | BUN/Creatin | 13.6 | 6.0 - 28.6 | EXTERNAL | | | ine Ratio | | | LAB | | + + + + + + | Calcium | 9.5 | 8.4 - 10.2 | EXTERNAL | | | | | mg/dL | LAB | | + + + + + + | Estimated | 14 | mg/dL | EXTERNAL | | | [...]
--- OUTSIDE RECORDS SUMMARY | ~2019-10-02 | XMS | Encounter Summary ---
Demographics + + + | Address | [address] | | | [place] [address] | + + + | Home Phone | | + + + | Preferred Language | Unknown | + + + | Marital Status | Single | + + + | Restorationist Affiliation | 1041 | + + + | Race | Unknown | + + + | Ethnic Group | Unknown | + + + Author + + + | Author | [facility] | | | and [place] | + + + | Organization | [facility] | | | and [place] | + + + | Address | Unknown | + + + | Phone | Unavailable | + + + Support + + + + + | Name | Relationship | Address | Phone | + + + + + | Kyaw Woodson | ECON | [place], [place] | | + + + + + | Barbara Cabrera | ECON | Unknown | | + + + + + | Dimple Hathaway | ECON | Unknown | | + + + + + Care Team Providers + +------+ + | Care Product Transfer Pumper Name | Role | Phone | + +------+ + | Jennyfer Gresham MD | PCP | | + +------+ + Encounter Details +--------+ + + + + | Date | Type | Department | Care Team | Description | +--------+ + + + + | 07/05/ | Orders Only | [facility] | Mari Mcdaniel, | | | 2018 | | CARDIOLOGY [place] | [address] | | | | | [address] | [address] [address] [place], [place] | | | | | [place], [place] | [address] | | | | | [address] | | | | | | [phone] | | | +--------+ + + + [...] [place] | | | | | | [address] | | | | | | | | +--------+ + + + + | 10/10/ | Procedure | Cardiology | | | | 2019 | visit | | | | +--------+ + + + + | 10/17/ | Office | Family Medicine | Jerry Yuen, | | | 2019 | Visit | | MD [address] | | | | | | [address] | | | | | | [place] [address] | | | | | | [phone] | | | | | | | | +--------+ + + + + | 11/25/ | Office | Nephrology | Kei Arthur MD | | | 2020 | Visit | | [address] | | | | | | [address] [place] | | | | | | [address] | | | | | | | | +--------+ + + + + documented as of this encounter Visit Diagnoses Not on filedocumented in this encounter"
--- OUTSIDE RECORDS SUMMARY | ~2019-10-02 | XMS | Encounter Summary ---
Demographics + + + | Address | [address] | | | [place] [address] | + + + | Home Phone | | + + + | Preferred Language | Unknown | + + + | Marital Status | Single | + + + | Moravian Affiliation | 1041 | + + + | Race | Unknown | + + + | Ethnic Group | Unknown | + + + Author + + + | Author | [facility] | | | and [place] | + + + | Organization | [facility] | | | and [place] | + + + | Address | Unknown | + + + | Phone | Unavailable | + + + Support + + + + + | Name | Relationship | Address | Phone | + + + + + | Kyaw Woodson | ECON | [place], [place] | | + + + + + | Barbara Cabrera | ECON | Unknown | | + + + + + | Dimple Hathaway | ECON | Unknown | | + + + + + Care Team Providers + +------+ + | Care Sheet Metal Layout Mechanic Name | Role | Phone | + +------+ + | Daniel Land NP | PCP | | + +------+ + Encounter Details +--------+ + + + + | Date | Type | Department | Care Team | Description | +--------+ + + + + | 06/29/ | Orders Only | [facility] | Kei Arthur MD | | | 2015 | | [facility] | [address] [place] | | | | | [address] [place] | [address] [place], [place] | | | | | [address] [place], [place] | [id number] | | | | | [address] | | | | | | [phone] | | | +--------+ + + + [...] [address] | | | | | | [facility] | | | | | | [place] | | | | | | [address] | | | | | | | [...] [address] | | | | | | [place] [address] | | | | | | [phone] | | | | | | | | +--------+ + + + + | 11/25/ | Office | Nephrology | Kei Arthur MD | | | 2019 | Visit | | [address] [facility] | | | | | | [address] [place] | | | | | | [address] | | | | | | | | +--------+ + + + + documented as of this encounter Procedures + +--------+ + + + | Procedure Name | Priori | Date/Time | Associated Diagnosis | Comments | | | ty | | | | + +--------+ + + + | RENAL FUNCTION PANEL | Routin | 06/29/2016 | | Results for this | | | e | 1:23 PM | | procedure are in the | | | | PDT | | results section. | + +--------+ + + + documented in this encounter Results Renal Function Panel (06/29/2016 1:23 PM PDT) + + + + + + | Component | Value | Ref Range | Performed | Pathologist | | | | | At | Signature | + + + + + + | Glucose, | 90 | 70 - 100 mg/dL | EXTERNAL | | | Fasting | | | LAB | | + + + + + + | BUN | 44 (A) | 6 - 23 mg/dL | EXTERNAL | | | | | | LAB | | + + + + + + | Creatinine | 2.63 (A) | 0.60 - 1.35 | EXTERNAL | | | | | mg/dL | LAB | | + + + + + + | PHOSPHORUS | | mg/dL | EXTERNAL | | | | | | LAB | | + + + + + + | Albumin | 4.4 | 3.5 - 5.0 | EXTERNAL | | | | | | LAB | | + + + + + + | Na | 138 | 132 - 143 | EXTERNAL | | | | | mmol/L | LAB | | + + + + + + | K | 4.7 | 3.6 - 5.1 | EXTERNAL | | | | | mmol/L | LAB | | + + + + + + | Cl | 102 | 95 - 112 mmol/L | EXTERNAL | | | | | | LAB | | + + + + + + | CO2 | 20 | 19 - 31 mmol/L | EXTERNAL | | | | | | LAB | | + + + + + + | Anion Gap | 20.7 | 7 - 21 mmol/L | EXTERNAL | | | | | | LAB | | + + + + + + | eGFR if not | | | EXTERNAL | | | | | | LAB | | | CYMRAES | | | | | + + + + + + | Phosphorus, | 4.5 | 2.5 - 5.0 | EXTERNAL | | | Inorganic | | | LAB | | + + + + + + | BUN/Creatin | 16.7 | 6.0 - 28.6 | EXTERNAL | | | ine Ratio | | | LAB | | + + + + + + | Calcium | 9.8 | 8.4 - 10.2 | EXTERNAL | | | | | mg/dL | LAB | | + + + + + + | Estimated | 20 | mg/dL | EXTERNAL | | | [...]
--- OUTSIDE RECORDS SUMMARY | ~2019-10-02 | XMS | Encounter Summary ---
Demographics + + + | Address | [address] | | | [place] [address] | + + + | Home Phone | | + + + | Preferred Language | Unknown | + + + | Marital Status | Single | + + + | Yazidism Affiliation | 1041 | + + + | Race | Unknown | + + + | Ethnic Group | Unknown | + + + Author + + + | Author | [facility] | | | and [place] | + + + | Organization | [facility] | | | and [place] | + + + | Address | Unknown | + + + | Phone | Unavailable | + + + Support + + + + + | Name | Relationship | Address | Phone | + + + + + | Kyaw Woodson | ECON | [place], [place] | | + + + + + | Barbara Cabrera | ECON | Unknown | | + + + + + | Dimple Hathaway | ECON | Unknown | | + + + + + Care Team Providers + +------+ + | Care Oracle Technical Architect Name | Role | Phone | + +------+ + | No, Physician | PCP | Unavailable | + +------+ + Encounter Details +--------+ + + + + | Date | Type | Department | Care Team | Description | +--------+ + + + + | 04/17/ | Orders Only | [facility] | Conversion | | | 2017 | | NEPHROLOGY [place] | Transaction, | | | | | [address] | Provider Unknown | | | | | [address] [facility] [place] | | | | | | [address] | (Fax) | | | | | [phone] | | | +--------+ + + + [...] [place] | | | | | | [id number] | | | | | | | [...] | | | | | [place] [address] | | | | | | [phone] | | | | | | | | +--------+ + + + + | 11/25/ | Office | Nephrology | Kei Arthur MD | | | 2019 | Visit | | [address] [facility] | | | | | | [address] [place], [place] | | | | | | [address] | | | | | | | | +--------+ + + + + documented as of this encounter Procedures + +--------+ + + + | Procedure Name | Priori | Date/Time | Associated Diagnosis | Comments | | | ty | | | | + +--------+ + + + | CULTURE, URINE | Routin | 04/17/2018 | | Results for this | | | e | 4:49 PM | | procedure are in the | | | | PDT | | results section. | + +--------+ + + + | COMPREHENSIVE | Routin | 04/17/2018 | | Results for this | | METABOLIC PANEL | e | 4:49 PM | | procedure are in the | | | | PDT | | results section. | + +--------+ + + + documented in this encounter Results Culture, Urine (04/17/2018 4:49 PM PDT) + + | Specimen | + + | Urine specimen | | (specimen) | + + + + + | Narrative | Performed At | + + + | Specimen Description Urine CULTURE | EXTERNAL LAB | | Escherichia | | | coli REPORT STATUS Final | | + + + + +---------+ + + | Performing | Address | City/State/Zipcode | Phone Number | | Organization | | | | + +---------+ + + | EXTERNAL LAB | | | | + +---------+ + + Comprehensive Metabolic Panel (04/17/2018 4:49 PM PDT) + + + + + + | Component | Value | Ref Range | Performed | Pathologist | | | | | At | Signature | + + + + + + | Glucose, | 107 (A) | 70 - 100 mg/dL | EXTERNAL | | | Fasting | | | LAB | | + + + + + + | BUN | 43 (A) | 6 - 23 mg/dL | EXTERNAL | | | | | | LAB | | + + + + + + | Creatinine | 3.07 (A) | 0.6 - 1.35 | EXTERNAL | | | | | mg/dL | LAB | | + + + + + + | BUN/Creatin | 14 | 6.0 - 28.6 | EXTERNAL | | | ine Ratio | | | LAB | | + + + + + + | Calcium | 9.3 | 8.5 - 10.3 | EXTERNAL | | | | | mg/dL | LAB | | + + + + + + | Protein, | 7.3 | 6.0 - 8.3 g/dL | EXTERNAL | | | Total | | | LAB | | + + + + + + | Albumin | 4.2 | 3.5 - 5.0 | EXTERNAL | | | | | | LAB | | + + + + + + | Globulin | 3.1 | 1.8 - 3.5 | EXTERNAL | | | | | | LAB | | + + + + + + | A/G Ratio | 1.4 | 1.1 - 2.4 | EXTERNAL | | | | | | LAB | | + + + + + + | Bilirubin | 0.4 | 0.0 - 1.2 mg/dL | EXTERNAL | | | Total | | | LAB | | + + + + + + | ALP, | 52 | 31 - 130 | EXTERNAL | | | External | | | LAB | | + + + + + + | ALT | 19 | 7 - 52 U/L | EXTERNAL | | | | | | LAB | | + + + + + + | AST | 19 | 13 - 39 U/L | EXTERNAL | | | | | | LAB | | + + + + + + | Na | 137 | 132 - 143 | EXTERNAL | | | | | mmol/L | LAB | | + + + + + + | K | 4.0 | 3.6 - 5.1 | EXTERNAL | | | | | mmol/L | LAB | | + + + + + + | Cl | 98 | 95 - 112 mmol/L | EXTERNAL | | | | | | LAB | | + + + + + + | CO2 | 26 | 19 - 31 mmol/L | EXTERNAL | | | | | | LAB | | + + + + + + | Anion Gap | 17.0 | 7 - 21 mmol/L | EXTERNAL | | | | | | LAB | | + + + + + + | Estimated | 16 (A) | 60 mg/dL | EXTERNAL | [...]
--- OUTSIDE RECORDS SUMMARY | ~2019-10-02 | XMS | Encounter Summary ---
Demographics + + + | Address | [address] | | | [place] [address] | + + + | Home Phone | | + + + | Preferred Language | Unknown | + + + | Marital Status | Single | + + + | Mu-Ism Affiliation | 1041 | + + + | Race | Unknown | + + + | Ethnic Group | Unknown | + + + Author + + + | Author | [facility] | | | and [place] | + + + | Organization | [facility] | | | and [place] | + + + | Address | Unknown | + + + | Phone | Unavailable | + + + Support + + + + + | Name | Relationship | Address | Phone | + + + + + | Kyaw Woodson | ECON | [place], [place] | | + + + + + | Barbara Cabrera | ECON | Unknown | | + + + + + | Dimple Hathaway | ECON | Unknown | | + + + + + Care Team Providers + +------+ + | Care Steel Erector Name | Role | Phone | + +------+ + | No, Physician | PCP | Unavailable | + +------+ + Encounter Details +--------+ + + + + | Date | Type | Department | Care Team | Description | +--------+ + + + + | 06/14/ | Hospital | [facility] | Conversion | Diagnosis unknown | | 2015 | Encounter | CONVERSION [address] | Transaction, | | | | | [address] | Provider Unknown | | | | | [place], [place] | [phone] | | | | | [address] | | | | | | [phone] | | | +--------+ + + + [...] + + + +---------+ + + | acetaminophen | Take 500 mg by mouth | | 0 | 08/25/20 | | | (TYLENOL) 500 mg | every 6 (six) hours | | | 15 | | | tablet | as needed for Pain. | | | | | + + + +---------+ + + | ascorbic acid | Take 1,000 mg by | | 0 | 06/07/20 | | | (VITAMIN C) 1000 MG | mouth daily. | | | 16 | | | tablet | | | | | | + + + +---------+ + + | aspirin 81 mg | Take 81 mg by mouth | | 0 | 07/16/20 | | | chewable tablet | daily. | | | 14 | | + + + +---------+ + + | B complex vitamins | Take 1 tablet by | | 0 | 05/19/20 | | | tablet | mouth daily. | | | 15 | | + + + +---------+ + + | Multiple Vitamin | Take 1 tablet by | | 0 | 05/19/20 | | | (MULTIVITAMIN) | mouth daily. | | | 15 | | | tablet | | | | | | + + + +---------+ + + | cholecalciferol | Take 1 tablet by | | 0 | 05/19/20 | | | (CHOLECALCIFEROL) | mouth daily. | | | 15 | 9 | | 5000 units TABS | | | | | | + + + +---------+ + + | dexlansoprazole | Take 60 mg by mouth | | 0 | 05/19/20 | | | (DEXILANT) [address] | every morning before | | | 15 | 9 | | capsule | breakfast. | | | | | [...] [address] | | | | | | [facility] | | | | | | [place] | | | | | | [address] | | | | | | | [...] [address] | | | | | | [place] [address] | | | | | | [phone] | | | | | | | | +--------+ + + + + | 11/25/ | Office | Nephrology | Kei Arthur MD | | | 2019 | Visit | | [address] [facility] | | | | | | [address] [place] | | | | | | [address] | | | | | | | | +--------+ + + + + documented as of this encounter Procedures + +--------+ + + + | Procedure Name | Priori | Date/Time | Associated Diagnosis | Comments | | | ty | | | | + +--------+ + + + | XR CHEST 1 VIEW | Routin | 01/01/2016 | | Results for this | | | e | 6:44 PM | | procedure are in the | | | | PDT | | results section. | + +--------+ + + + documented in this encounter Results XR Chest 1 Vw (01/01/2016 6:44 PM PDT) + + | Specimen | + + | | + + + + + | Narrative | Performed At | + + + | This is a non-reportable procedure without a radiologist report and | | | is used for image storage only | | + + + + + | Procedure Note | + + | Marcelo Matias Marnie - 05/03/2019 7:16 AM PDT This is a non-reportable procedure | | without a radiologist report and isused for image storage only | + + documented in this encounter Visit Diagnoses + + | Diagnosis | + + | Diagnosis unknown Other unknown and unspecified cause of morbidity or mortality | + + documented in this encounter"
--- OUTSIDE RECORDS SUMMARY | ~2019-10-02 | XMS | Encounter Summary ---
Demographics + + + | Address | [address] | | | [place] [address] | + + + | Home Phone | | + + + | Preferred Language | Unknown | + + + | Marital Status | Single | + + + | Episcopalian Affiliation | 1041 | + + + | Race | Unknown | + + + | Ethnic Group | Unknown | + + + Author + + + | Author | [facility] | | | and [place] | + + + | Organization | [facility] | | | and [place] | + + + | Address | Unknown | + + + | Phone | Unavailable | + + + Support + + + + + | Name | Relationship | Address | Phone | + + + + + | Kyaw Woodson | ECON | [place], [place] | | + + + + + | Barbara Cabrera | ECON | Unknown | | + + + + + | Dimple Hathaway | ECON | Unknown | | + + + + + Care Team Providers + +------+ + | Care Mash Tub Cooker Name | Role | Phone | + +------+ + | Daniel Land NP | PCP | | + +------+ + Encounter Details +--------+ + + + + | Date | Type | Department | Care Team | Description | +--------+ + + + + | 05/27/ | Orders Only | [facility] | Conversion | | | 2016 | | NEPRHOLOGY [place] | Transaction, | | | | | [address] | Provider Unknown | | | | | [address] [place] | [phone] | | | | | [address] | | | | | | [phone] | | | +--------+ + + + [...] | | | | | [address] [facility] [facility] | | | | | | [place] | | | | | | [address] | | | | | | | [...] | | | | | [place] [address] | | | | | | [phone] | | | | | | | | +--------+ + + + + | 11/25/ | Office | Nephrology | Kei Arthur MD | | | 2019 | Visit | | [address] [facility] | | | | | | [address] [place] | | | | | | [address] | | | | | | | [...] - 1.030 | EXTERNAL | | | [place] | | | LAB | | + [...]
--- OUTSIDE RECORDS SUMMARY | ~2019-10-02 | XMS | Encounter Summary ---
Demographics + + + | Address | [address] | | | [place] [address] | + + + | Home Phone | | + + + | Preferred Language | Unknown | + + + | Marital Status | Single | + + + | Methodist Affiliation | 1041 | + + + | Race | Unknown | + + + | Ethnic Group | Unknown | + + + Author + + + | Author | [facility] | | | and [place] | + + + | Organization | [facility] | | | and [place] | + + + | Address | Unknown | + + + | Phone | Unavailable | + + + Support + + + + + | Name | Relationship | Address | Phone | + + + + + | Kyaw Woodson | ECON | [place], [place] | | + + + + + | Barbara Cabrera | ECON | Unknown | | + + + + + | Dimple Hathaway | ECON | Unknown | | + + + + + Care Team Providers + +------+ + | Care Senior Network Systems Engineer Name | Role | Phone | + +------+ + | No, Physician | PCP | Unavailable | + +------+ + Encounter Details +--------+ + + + + | Date | Type | Department | Care Team | Description | +--------+ + + + + | 03/09/ | Orders Only | [facility] | Kei Arthur MD | | | 2018 | | NEPHROLOGY [place] | [address] | | | | | [address] | [address] [place], [place] | | | | | [address] [facility] [place] | [address] | | | | | [address] | | | | | | [phone] | | | +--------+ + + + [...] [address] | | | | | | [address] | | | | | | | [...] | | | | | [place] [address] | | | | | | [phone] | | | | | | | | +--------+ + + + + | 11/25/ | Office | Nephrology | Kei Arthur MD | | | 2019 | Visit | | [address] [facility] | | | | | | [address] [place] | | | | | | [address] | | | | | | | | +--------+ + + + + documented as of this encounter Procedures + +--------+ + + + | Procedure Name | Priori | Date/Time | Associated Diagnosis | Comments | | | ty | | | | + +--------+ + + + | RENAL FUNCTION PANEL | Routin | 03/09/2018 | | Results for this | | | e | 7:19 AM | | procedure are in the | | | | PDT | | results section. | + +--------+ + + + documented in this encounter Results Renal Function Panel (03/09/2018 7:19 AM PDT) + + + + + + | Component | Value | Ref Range | Performed | Pathologist | | | | | At | Signature | + + + + + + | Glucose, | 112 (A) | 70 - 100 mg/dL | EXTERNAL | | | Fasting | | | LAB | | + + + + + + | BUN | 42 (A) | 6 - 23 mg/dL | EXTERNAL | | | | | | LAB | | + + + + + + | Creatinine | 2.87 (A) | 0.6 - 1.36 | EXTERNAL | | | | | mg/dL | LAB | | + + + + + + | PHOSPHORUS | 4.1 | 2.5 - 5.0 mg/dL | EXTERNAL | | | | | | LAB | | + + + + + + | Albumin | 3.7 | 3.5 - 5.0 | EXTERNAL | | | | | | LAB | | + + + + + + | Na | 142 | 132 - 143 | EXTERNAL | | | | | mmol/L | LAB | | + + + + + + | K | 4.1 | 3.6 - 5.1 | EXTERNAL | | | | | mmol/L | LAB | | + + + + + + | Cl | 101 | 95 - 112 mmol/L | EXTERNAL | | | | | | LAB | | + + + + + + | CO2 | 25 | 19 - 31 mmol/L | EXTERNAL | | | | | | LAB | | + + + + + + | Anion Gap | 20.1 | 7 - 21 mmol/L | EXTERNAL | | | | | | LAB | | + + + + + + | eGFR if not | | | EXTERNAL | | | | | | LAB | | | [place] | | | | | + + + + + + | Phosphorus, | | | EXTERNAL | | | Inorganic | | | LAB | | + + + + + + | BUN/Creatin | 14.6 | 6.0 - 28.6 | EXTERNAL | | | ine Ratio | | | LAB | | + + + + + + | Calcium | 9.2 | 8.4 - 10.2 | EXTERNAL | [...]
--- OUTSIDE RECORDS SUMMARY | ~2019-10-02 | XMS | Encounter Summary ---
Demographics + + + | Address | [address] | | | [place] [address] | + + + | Home Phone | | + + + | Preferred Language | Unknown | + + + | Marital Status | Single | + + + | Congregation Affiliation | 1041 | + + + | Race | Unknown | + + + | Ethnic Group | Unknown | + + + Author + + + | Author | [facility] | | | and [place] | + + + | Organization | [facility] | | | and [place] | + + + | Address | Unknown | + + + | Phone | Unavailable | + + + Support + + + + + | Name | Relationship | Address | Phone | + + + + + | Kyaw Woodson | ECON | [place], [place] | | + + + + + | Barbara Cabrera | ECON | Unknown | | + + + + + | Dimple Hathaway | ECON | Unknown | | + + + + + Care Team Providers + +------+ + | Care Road Roller Engineer Name | Role | Phone | + +------+ + | Jennyfer Gresham MD | PCP | | + +------+ + Encounter Details +--------+ + + + + | Date | Type | Department | Care Team | Description | +--------+ + + + + | 01/28/ | Orders Only | [facility] | Mari Mcdaniel, | | | 2019 | | [facility]IOLOGY [facility] | [address] | | | | | [address] | [address] [address] [place], [place] | | | | | [place], [place] | [address] | | | | | [address] | | | | | | [phone] | | | +--------+ + + + [...] [place] | | | | | | [address] | | | | | | | [...] | | | | | | [place] [address] | | | | | | [phone] | | | | | | | | +--------+ + + + + | 11/25/ | Office | Nephrology | Kei Arthur MD | | | 2020 | Visit | | [address] | | | | | | [address] [place] | | | | | | [address] | | | | | | | | +--------+ + + + + documented as of this encounter Visit Diagnoses Not on filedocumented in this encounter"
--- OUTSIDE RECORDS SUMMARY | ~2019-10-02 | XMS | Encounter Summary ---
Demographics + + + | Address | [address] | | | [place] [address] | + + + | Home Phone | | + + + | Preferred Language | Unknown | + + + | Marital Status | Single | + + + | Confucianist Affiliation | 1041 | + + + | Race | Unknown | + + + | Ethnic Group | Unknown | + + + Author + + + | Author | [facility] | | | and [place] | + + + | Organization | [facility] | | | and [place] | + + + | Address | Unknown | + + + | Phone | Unavailable | + + + Support + + + + + | Name | Relationship | Address | Phone | + + + + + | Kyaw Woodson | ECON | [place], [place] | | + + + + + | Barbara Cabrera | ECON | Unknown | | + + + + + | Dimple Hathaway | ECON | Unknown | | + + + + + Care Team Providers + +------+ + | Care Child & Adolescent Psychiatrist Name | Role | Phone | + +------+ + | Daniel Land NP | PCP | | + +------+ + Encounter Details +--------+ + + + + | Date | Type | Department | Care Team | Description | +--------+ + + + + | 05/28/ | Orders Only | [facility] | Conversion | | | 2017 | | NEPRHOLOGY [place] | Transaction, | | | | | [address] | Provider Unknown | | | | | [address] [place] | [phone] | | | | | [address] | | | | | | [phone] | | | +--------+ + + + [...] | | | | | [address] [facility] | | | | | | [place] | | | | | | [address] | | | | | | | [...] | | | | | [place] [address] | | | | | | [phone] | | | | | | | | +--------+ + + + + | 11/25/ | Office | Nephrology | Kei Arthur MD | | | 2019 | Visit | | [address] [facility] | | | | | | [address] [place] | | | | | | [address] | | | | | | | | +--------+ + + + + documented as of this encounter Procedures + +--------+ + + + | Procedure Name | Priori | Date/Time | Associated Diagnosis | Comments | | | ty | | | | + +--------+ + + + | IRON AND IRON | Routin | 05/28/2017 | | Results for this | | BINDING CAPACITY | e | 10:05 AM | | procedure are in the | | | | PDT | | results section. | + +--------+ + + + documented in this encounter Results Iron and Iron Binding Capacity (05/28/2017 10:05 AM PDT) + + + + + + | Component | Value | Ref Range | Performed | Pathologist | | | | | At | Signature | + + + + + + | Iron | 71.12 | 37 - 160 | EXTERNAL | | | | | | LAB | | + + + + + + | Iron | 17.2 (A) | 20 - 55 | EXTERNAL | | | Saturation | | | LAB | | + + + + + + | TIBC | 414 (A) | 245 - 400 | EXTERNAL [...]
--- OUTSIDE RECORDS SUMMARY | ~2019-10-02 | XMS | Encounter Summary ---
Demographics + + + | Address | [address] | | | [place] [address] | + + + | Home Phone | | + + + | Preferred Language | Unknown | + + + | Marital Status | Single | + + + | Synagogue Affiliation | 1041 | + + + | Race | Unknown | + + + | Ethnic Group | Unknown | + + + Author + + + | Author | [facility] | | | and [place] | + + + | Organization | [facility] | | | and [place] | + + + | Address | Unknown | + + + | Phone | Unavailable | + + + Support + + + + + | Name | Relationship | Address | Phone | + + + + + | Kyaw Woodson | ECON | [place], [place] | | + + + + + | Barbara Cabrera | ECON | Unknown | | + + + + + | Dimple Hathaway | ECON | Unknown | | + + + + + Care Team Providers + +------+ + | Care Gem Expert Name | Role | Phone | + +------+ + | No, Physician | PCP | Unavailable | + +------+ + Reason for Visit + + + | Reason | Comments | + + + | Catheter Removal | Seeing if PICC was removed | + + + Encounter Details +--------+ + + + + | Date | Type | Department | Care Team | Description | +--------+ + + + + | 05/11/ | Telephone | [facility] | Magdalena Pollard, | Catheter Removal | | 2019 | | INFECTIOUS DISEASE | Search Analyst | (Seeing if PICC was | | | | [address] | | removed) | | | | [place] | | | | | | [address] | | | | | | [phone] | | | +--------+ + + + [...] [place] | | | | | | [address] | | | | | | | [...] | | | | | [place] [address] | | | | | | [phone] | | | | | | | | +--------+ + + + + | 11/25/ | Office | Nephrology | Kei Arthur MD | | | 2019 | Visit | | [address] [facility] | | | | | | [address] [place] | | | | | | [address] | | | | | | | | +--------+ + + + + documented as of this encounter Visit Diagnoses Not on filedocumented in this encounter"
--- OUTSIDE RECORDS SUMMARY | ~2019-10-02 | XMS | Encounter Summary ---
Demographics + + + | Address | [address] | | | [place] [address] | + + + | Home Phone [...] + + + | Author | [facility] | | | and [place] | + + + | Organization | [facility] | | | and [place] | + + + | Address | Unknown | + + + | Phone | Unavailable | + + + Support + + + + + | Name | Relationship | Address | Phone | + + + + + | Kyaw Woodson | ECON | [place], [place] | | + + + + + | Barbara Cabrera | ECON | Unknown | | + + + + + | Dimple Hathaway | ECON | Unknown | | + + + + + Care Team Providers + +------+ + | Care Dispatcher Tow Truck Name | Role | Phone | + +------+ + | No, Physician | PCP | Unavailable | + +------+ + Reason for Visit + + + | Reason | Comments | + + + | Follow-up | 6 mo f/u | + + + Encounter Details +--------+---------+ + + + | Date | Type | Department | Care Team | Description | +--------+---------+ + + + | 06/05/ | Office | [facility] | Mari Mcpherson, | Chronic combined | | 2019 | Visit | CARDIOLOGY [place] | [address] | systolic and | | | | [address] | [place]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 | | | | [place] | [address] | heart failure (HCC) | | | | [address] | | (Primary Dx); | | | | [phone] | | Coronary artery | | | | | | disease of [place] | | | | | | artery of [place] | | | | | | heart with stable | | | | | | angina pectoris | | | | | | (HCC); Essential | | | | | | hypertension, | | | | | | benign; Ischemic | | | | | | cardiomyopathy; CKD | | | | | | (chronic kidney | | | | | | disease) stage 3, | | | | | | GFR 30-59 ml/min | | | | | | (HCC) | +--------+---------+ + + [...] this encounter Last Filed Vital Signs + + + + + | Vital Sign | Reading | Time Taken | Comments | + + + + + | Blood Pressure | 132/60 | 06/05/2019 12:23 PM | | | | | PDT | | + + + + + | Pulse | 73 | 06/05/2019 12:23 PM | | | | | PDT | | + + + + + | Temperature | - | - | | + + + + + | Respiratory Rate | - | - | | + + + + + | Oxygen Saturation | 100% | 06/05/2019 12:23 PM | | | | | PDT | | + + + + + | Inhaled Oxygen | - | - | | | Concentration | | | | + + + + + | Weight | - | - | | + + + + + | Height | 177.8 cm (5' 10") | 06/05/2019 12:23 PM | | | | | PDT | | + + + + + | Body Mass Index | - | - | | + + + + + documented in this encounter Progress Notes Mari Mcpherson MD - 06/05/2019 11:45 AM PDTFormatting of this note might be different f rom the original. Date of visit: 06/05/2019 Primary Care Physician: No Physician on file CHIEF COMPLAINT: Chief Complaint Patient presents with Follow-up 6 mo f/u HISTORY OF PRESENT ILLNESS: Alondra is 49 y.o. here for follow-up visit. Currently in a chcf. Denies any chest pain or shortness of breath. Reviewed blood pressure which has been monit ored has been in within controlled limits. Was admitted to the hospital in March 2019 secondary to gangrenous and ischemic right lower extremity she had xexhb-icc-nnex amputation. Recovered slowly currently and chcf/re habilitation. Complaining of right and left thumb pain is more than the right side. Has been having sign ificant discharge for the last few days. She has a previous history of 2 vessel coronary artery disease with stent to Left circumfle x and last angiogramin 2012 with unsuccessful attempt to angioplasty chronic total occlusion of proximal LAD, CHF with 10/2015 Echo showing EF 35-40%,. Past medical history, SH, FH, and medications were reviewed in the chart. Medications: Outpatient Encounter Medications as of 06/05/2019 Medication Sig Dispense Refill acetaminophen (TYLENOL) 500 [...] tablet Take 81 mg by mouth daily. azithromycin (ZITHROMAX) 500 MG tablet Take 1 tablet by mouth daily. 7 tablet 0 B complex vitamins tablet Take 1 tablet by mouth daily. bisacodyl (DULCOLAX) 5 mg EC tablet Take 5 mg by mouth Daily as needed for Constipation . diphenhydrAMINE (BENADRYL) 25 mg tablet Take 25 mg by mouth every 6 hours as needed for Itching. fenofibrate 160 mg tablet Take 1 tablet by mouth daily. 90 tablet 3 ferrous sulfate 324 (65 Fe) MG EC tablet TAKE ONE TABLET BY MOUTH TWICE DAILY WITH MEAL S 60 tablet 2 insulin glargine (BASAGLAR KWIKPEN) 100 units/mL injection (pen) Inject under the skin nightly. insulin lispro (HUMALOG) 100 units/mL injection (cartridge) Inject under the skin 3 ti mes daily (before meals). insulin regular U-500 (HUMULIN R U-500 KWIKPEN) 500 units/mL concentrated injection (pe n) Inject 0.32 mLs into the skin 3 (three) times daily with meals. 28 mL 11 metoprolol succinate (TOPROL-XL) 100 mg ER tablet Take 1 tablet by mouth 2 (two) times daily. 180 tablet 3 Multiple Vitamin (MULTIVITAMIN) tablet Take 1 tablet by mouth daily. nitroglycerin (NITROSTAT) 0.4 mg SL tablet DISSOLVE ONE TABLET UNDER THE TONGUE EVERY 5 MINUTES NEEDED FOR CHEST PAIN. DO NOT EXCEED A TOTAL OF 3 DOSES IN 15 MINUTES 25 tablet 51 omeprazole (PRILOSEC) 20 mg capsule Take 20 mg by mouth every morning (before breakfast ). oxyCODONE 10 MG TABS Take 10 mg by mouth. polyethylene glycol (MIRALAX) packet Take 17 g by mouth Daily. potassium chloride (KLOR-CON) 10 mEq CR tablet 10 mEq daily. sodium bicarbonate 650 mg tablet TAKE 2 TABLETS BY MOUTH THREE TIMES DAILY 540 tablet 3 torsemide (DEMADEX) 20 mg tablet TAKE 2 TABLETS BY MOUTH TWICE DAILY 360 tablet 1 [DISCONTINUED] traZODone (DESYREL) 50 mg tablet Take 50 mg by mouth nightly. venlafaxine (EFFEXOR XR) 150 mg 24 hr capsule No facility-administered encounter medications on file as of 06/05/2019. Allergies Allergies Allergen Reactions Buprenorphine Hives and Rash Sulfacetamide Hives Sulfamethoxazole-Trimethoprim Hives Demerol [Meperidine] Rash Rash, Patient has tolerated fentanyl in house Latex Other (See Comments) Hives Methadone Other (See Comments) Stomach pains,shaky Sulfa Antibiotics Rash Rash Vicodin [Hydrocodone-Acetaminophen] Rash Rash Ciprofloxacin Nausea And Vomiting REVIEW OF SYSTEMS: Constitutional: Positive for fatigue. No weight changes. HEENT: Negative for nosebleeds, ear discharge, nasal congestion or soar throat. Eyes: Negative for visual disturbance, redness, or secretion. Respiratory: Negative for cough, sputum production, hemoptysis, wheezing. Cardiovascular: As HPI. Gastrointestinal: Negative for nausea, vomiting, diarrhea, abdominal pain and blood in stoo l. Genitourinary: Negative for dysuria or hematuria. Musculoskeletal: Chronic arthritic pain bilateral lower extremity amputation. Skin: Negative for rash. Neurological: Negative for dizziness. No numbness. No recent falls. No slurred speech. Hematological: No significant bruising. Psychiatric/Behavioral: No depression or anxiety. PHYSICAL EXAM Vital Signs: BP 132/60 | Pulse 73 | Ht 1.778 m (5' 10") | SpO2 100% | BMI 35.28 kg/m GENERAL APPEARANCE: Alert, oriented, cooperative, no distress, appears stated age. HEENT: Extraocular movements were intact. No jaundice. Pupiles round and reactive. NECK: No JVD, lymphadenopathy. Carotid upstrokes normal. No carotid bruit heard. CARDIAC: Regular rhythm and rate. There is normal S1 and S2. No galop. No murmur. CHEST: Normal bilateral symmetrical chest excursion.ackles or wheezing. No evidence of dull ness. ABDOMEN: Soft.No tenderness or guarding. No palpable organs. Active bowel sounds. EXTREMITIES: Lateral lower extremity amputation. Right stump noted to have pus drainage an d erythema. NEURO: Alert and oriented times three with no focal deficit. Cranial nerves are grossly no rmal. SKIN: Warm and dry. No rash. Psych: Normal affect and mood. DATA Lab Results Component Value Date/Time NA 128 (A) 05/08/2019 08:00 NA 137 04/26/2019 06:30 NA 135 04/25/2019 03:42 K 4.2 05/08/2019 08:00 K 4.3 04/26/2019 06:30 K 4.6 04/25/2019 03:42 CO2 27 (A) 05/08/2019 08:00 CO2 25 04/26/2019 06:30 CO2 25 04/25/2019 03:42 BUN 18 05/08/2019 08:00 BUN 35 (H) 04/26/2019 06:30 BUN 38 (H) 04/25/2019 03:42 LABCREA 1.38 (H) 04/26/2019 06:30 LABCREA 1.3 (H) 04/25/2019 03:42 LABCREA 1.14 (H) 04/24/2019 05:59 CALCIUM 8.4 (A) 05/08/2019 08:00 CALCIUM 8.3 (L) 04/26/2019 06:30 CALCIUM 8.4 (L) 04/25/2019 03:42 CALCIUM 9.0 06/18/2013 05:34 CALCIUM 8.3 (L) 12/12/2012 11:25 MG 1.8 05/08/2019 08:00 MG 1.6 (L) 04/21/2019 05:40 MG 2.2 04/15/2019 02:08 MG 2.1 04/14/2019 15:25 Lab Results Component Value Date/Time WBC 6.73 04/25/2019 03:42 WBC 7.37 04/24/2019 05:59 WBC 9.60 04/23/2019 05:06 WBC 10.7 06/18/2013 05:34 WBC 11.4 (H) 12/12/2012 11:25 HGB 7.5 (L) 04/25/2019 03:42 HGB 7.6 (L) 04/24/2019 05:59 HGB 7.8 (L) 04/23/2019 05:06 HGB 10.3 (L) 06/18/2013 05:34 HGB 12.2 12/12/2012 11:25 HCT 30.9 (L) 06/18/2013 05:34 HCT 37.9 12/12/2012 11:25 MCV 90.5 05/08/2019 08:00 MCV 90.5 04/25/2019 03:42 MCV 90.0 04/24/2019 05:59 MCV 89.6 04/23/2019 05:06 MCV 77.6 (L) 06/18/2013 05:34 MCV 80.0 12/12/2012 11:25 LABPLAT 412 05/08/2019 08:00 LABPLAT 347 04/25/2019 03:42 LABPLAT 341 04/24/2019 05:59 Lab Results Component Value Date CHOL 164 11/21/2018 CHOL 114 03/09/2018 TRIG 354 (A) 11/21/2018 TRIG 475 (A) 03/09/2018 HDL 33 11/21/2018 HDL 22.8 03/09/2018 LDLEX 60 11/21/2018 LDLEX 35 03/08/2017 GLUF 94 04/26/2019 GLUF 137 (H) 04/25/2019 EK04/13/2019 Reviewed showed normal sinus rhythm, RBBB, poor R wave progression. Last Echo:04/13/2019 Last Echo, 03/24/2017 Normal LV size, with thickness and mildly impaired systolic function 40-45%. Mid anterior, anteroseptal, apical akinesis. Grade 1 diastolic dysfunction. RV is normal size and systolic function area moderate MR. 11/05/2015: LV dimensions NML, large apical akinesis, LVEF 35-40%, mild MR, trace TR.mild diastolic dys function Last stress test: Last Cath, 10/05/2012: Left main OK, prox-LAD occluded, LCx stent patent, distal RCA occluded. LVEF 30-35%. Hx PCI/stent: 10/21/2011,LCx (3.0*12mm Vision). Carotid US: AAA screening: Lower extremity US: OTHERS: ASSESSMENT & PLAN Patient is 49 y.o. with multiple comorbidities and complex presentation. 1. Right lower Ext wet gangrenous, S/P LE AKA. 2. Coronary artery disease. With no anginal symptoms. 3. Right thumb with pus and erythema. 4. Ischemic cardiomyopathy. EF 30-35%. 5. Diabetes mellitus insulin dependent. 6. Chronic kidney disease stage III. 7. Hyponatremia. 8. Anemia, likely of chronic disease. Recommendations: Patient denies any chest pain or shortness of breath no signs of volume overload at this ti me. Has known totally occluded LAD. Continue with medical therapy for cardiomyopathy. Continue with metoprolol succinate 100 mg p.o. daily. We will consider adding isosorbide on future encounter. Will discuss with infectious disease. Patient will be giving clavulanic/amoxicillin twice daily. CBC and blood cultures ordered. EF still in the 30-35% range, known akinetic anterior wall and apical segments. Will continue following. We will follow-up in 3 4 months or sooner if needed. *This report has been prepared using a voice recognition system. The report was reviewed fo r accuracy, however, sound-alike word errors, addition and/or deletions may occur. If there is any question about this report please contact me. Mari Mcpherson MD, MPH documented in this encounter Plan of Treatment [...] [place] | | | | | | [id number] | | | | | | | [...] | | | | | [place] [address] | | | | | | [phone] | | | | | | | | +--------+ + + + + | 11/25/ | Office | Nephrology | Kei Arthur MD | | | 2019 | Visit | | [address] [facility] | | | | | | [address] [place], [place] | | | | | | [address] | | | | | | | | +--------+ + + + + + + +--------+ + + | Name | Type | Priori | Associated Diagnoses | Order Schedule | | | | ty | | | + + +--------+ + + | CBC no Differential | Lab | Routin | Chronic combined | 1 Occurrences | | | | e | systolic and | starting 06/05/2019 | | | |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 | until 06/05/2020 | | | | | heart failure (HCC) | | | | | | Coronary artery | | | | | | disease of [place] | | | | | | artery of [place] | | | | | | heart with stable | | | | | | angina pectoris | | | | | | (HCC) Essential | | | | | | hypertension, benign | | | | | | Ischemic | | | | | | cardiomyopathy CKD | | | | | | (chronic kidney | | | | | | disease) stage 3, | | | | | | GFR 30-59 ml/min | | | | | | (HCC) | | + + +--------+ + + | Culture, Blood | Microbiolog | Routin | Chronic combined | 1 Occurrences | | | y | e | systolic and | starting 06/05/2019 | | | |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 | until 06/05/2020 | | | | | heart failure (HCC) | | | | | | Coronary artery | | | | | | disease of [place] | | | | | | artery of [place] | | | | | | heart with stable | | | | | | angina pectoris | | | | | | (HCC) Essential | | | | | | hypertension, benign | | | | | | Ischemic | | | | | | cardiomyopathy CKD | | | | | | (chronic kidney | | | | | | disease) stage 3, | | | | | | GFR 30-59 ml/min | | | | | | (HCC) | | + + +--------+ + + documented as of this encounter Visit Diagnoses + + | Diagnosis | + + | Chronic combined systolic and diastolic congestive heart failure (HCC) - Primary | | Chronic combined systolic and diastolic heart failure | + + | Coronary artery disease of [place] artery of [place] heart with stable angina pectoris | | (HCC) | + + | Essential hypertension, benign | + + | Ischemic cardiomyopathy Other specified forms of chronic ischemic heart disease | + + | CKD (chronic kidney disease) stage 3, GFR 30-59 ml/min (HCC) Chronic kidney disease, | | Stage III (moderate) | + + documented in this encounter
--- OUTSIDE RECORDS SUMMARY | ~2019-10-02 | XMS | Encounter Summary ---
Demographics + + + | Address | [address] | | | [place] [address] | + + + | Home Phone [...] | Organization | [facility] | | | and [place] | + + + | Address | Unknown | + + + | Phone | Unavailable | + + + Support + + + + + | Name | Relationship | Address | Phone | + + + + + | Kyaw Woodson | ECON | [place], [place] | | + + + + + | Barbara Cabrera | ECON | Unknown | | + + + + + | Dimple Hathaway | ECON | Unknown | | + + + + + Care Team Providers + +------+ + | Care Cafe Lead Name | Role | Phone | + +------+ + | Jennyfer Gresham MD | PCP | | + +------+ + Encounter Details +--------+ + + + + | Date | Type | Department | Care Team | Description | +--------+ + + + + | 03/20/ | Orders Only | [facility] | Conversion | | | 2018 | | CONVERSION [address] | Transaction, | | | | | [address] | Provider Unknown | | | | | [place], [place] | [phone] | | | | | [address] | | | | | | [phone] | | | +--------+ + + + [...] | | | | | [facility] | | | | | | [place] | | | | | | [phone] | | | | | | | [...] | | | | | [place] [address] | | | | | | [phone] | | | | | | | | +--------+ + + + + | 11/25/ | Office | Nephrology | Kei Atrhur MD | | | 2019 | Visit | | [address] [facility] | | | | | | [address] [place] | | | | | | [phone] | | | | | | | | +--------+ + + + + documented as of this encounter Visit Diagnoses Not on filedocumented in this encounter"
--- OUTSIDE RECORDS SUMMARY | ~2019-10-02 | XMS | Encounter Summary ---
Demographics + + + | Address | [address] | | | [place] [address] | + + + | Home Phone | | + + + | Preferred Language | Unknown | + + + | Marital Status | Single | + + + | Scientology Affiliation | [id number] | + + + | Race | Unknown | + + + | Ethnic Group | Unknown | + + + Author + + + | Author | [facility] | | | and [place] | + + + | Organization | [facility] | | | and [place] | + + + | Address | Unknown | + + + | Phone | Unavailable | + + + Support + + + + + | Name | Relationship | Address | Phone | + + + + + | Kyaw Woodson | ECON | [place], [place] | | + + + + + | Barbara Cabrera | ECON | Unknown | | + + + + + | Dimple Hathaway | ECON | Unknown | | + + + + + Care Team Providers + +------+ + | Care Necktie Turner Name | Role | Phone | + +------+ + | Daniel Land NP | PCP | | + +------+ + Encounter Details +--------+ + + + + | Date | Type | Department | Care Team | Description | +--------+ + + + + | 08/27/ | Orders Only | [facility] | Kei Arthur MD | | | 2014 | | NEPRHOLOGY [place] | [address] | | | | | [address] | [address] [place], [place] | | | | | [address] [place], [place] | [address] | | | | | [address] | | | | | | [phone] | | | +--------+ + + + [...] [address] | | | | | | [facility] | | | | | | [place] | | | | | | [address] | | | | | | | [...] [address] | | | | | | [place] [address] | | | | | | [phone] | | | | | | | | +--------+ + + + + | 11/25/ | Office | Nephrology | Kei Arthur MD | | | 2019 | Visit | | [address] | | | | | | [address] [facility] | | | | | | [address] | | | | | | | | +--------+ + + + + documented as of this encounter Procedures + +--------+ + + + | Procedure Name | Priori | Date/Time | Associated Diagnosis | Comments | | | ty | | | | + +--------+ + + + | BASIC METABOLIC | Routin | 08/27/2015 | | Results for this | | PANEL | e | 12:00 AM | | procedure are in the | | | | PST | | results section. | + +--------+ + + + documented in this encounter Results Basic Metabolic Panel (08/27/2015 12:00 AM PST) + + + + + + | Component | Value | Ref Range | Performed | Pathologist | | | | | At | Signature | + + + + + + | Glucose, | 222 (A) | 70 - 100 mg/dL | EXTERNAL | | | Fasting | | | LAB | | + + + + + + | BUN | 22 | 6 - 23 mg/dL | EXTERNAL | | | | | | LAB | | + + + + + + | Creatinine | 2.34 (A) | 0.60 - 1.35 | EXTERNAL | | | | | mg/dL | LAB | | + + + + + + | BUN/Creatin | 9.4 | 6.0 - 28.6 | EXTERNAL | | | ine Ratio | | | LAB | | + + + + + + | Calcium | 10.0 | 8.4 - 10.2 | EXTERNAL | | | | | mg/dL | LAB | | + + + + + + | Na | 131 (A) | 132 - 143 | EXTERNAL | [...] + + + + | CO2 | 17 (A) | 19 - 31 mmol/L | EXTERNAL | | | | | | LAB | | + + + + + + | Anion Gap | 18.1 | 7 - 21 mmol/L | EXTERNAL | | | | | | LAB | | + + + + + + | Estimated | 23 (A) | 60 - 140 mg/dL | EXTERNAL | | | GFR [...]
--- OUTSIDE RECORDS SUMMARY | ~2019-10-02 | XMS | Encounter Summary ---
Demographics + + + | Address | [address] | | | [place] [address] | + + + | Home Phone | | + + + | Preferred Language | Unknown | + + + | Marital Status | Single | + + + | Protestant Affiliation | 1041 | + + + | Race | Unknown | + + + | Ethnic Group | Unknown | + + + Author + + + | Author | [facility] | | | and [place] | + + + | Organization | [facility] | | | and [place] | + + + | Address | Unknown | + + + | Phone | Unavailable | + + + Support + + + + + | Name | Relationship | Address | Phone | + + + + + | Kyaw Woodson | ECON | [place], [place] | | + + + + + | Barbara Cabrera | ECON | Unknown | | + + + + + | Dimple Hathaway | ECON | Unknown | | + + + + + Care Team Providers + +------+ + | Care Aircraft Pneudraulics Repairer Name | Role | Phone | [...] Provider Unknown | | | | | [place], [place] | [phone] | | | | | [address] | | | | | | [phone] | | | +--------+ + + + [...] | | | | | [facility] | | | | | | [place] | | | | | | [phone] | | | | | | | [...] | | | | | [place] [address] | | | | | | [phone] | | | | | | | | +--------+ + + + + | 11/25/ | Office | Nephrology | Kei Arthur MD | | | 2019 | Visit | | [address] [facility] | | | | | | [address] [place] | | | | | | [phone] | | | | | | | | +--------+ + + + + documented as of this encounter Visit Diagnoses Not on filedocumented in this encounter"
--- OUTSIDE RECORDS SUMMARY | ~2019-10-02 | XMS | Encounter Summary ---
Demographics + + + | Address | [address] | | | [place] [address] | + + + | Home Phone | | + + + | Preferred Language | Unknown | + + + | Marital Status | Single | + + + | Advent Affiliation | 1041 | + + + | Race | Unknown | + + + | Ethnic Group | Unknown | + + + Author + + + | Author | [facility] | | | and [place] | + + + | Organization | [facility] | | | and [place] | + + + | Address | Unknown | + + + | Phone | Unavailable | + + + Support + + + + + | Name | Relationship | Address | Phone | + + + + + | Kyaw Woodson | ECON | [place], [place] | | + + + + + | Barbara Cabrera | ECON | Unknown | | + + + + + | Dimple Hathaway | ECON | Unknown | | + + + + + Care Team Providers + +------+ + | Care Ink Printer Name | Role | Phone | + +------+ + | Daniel Land NP | PCP | | + +------+ + Encounter Details +--------+ + + + + | Date | Type | Department | Care Team | Description | +--------+ + + + + | 01/10/ | Orders Only | [facility] | Kei Arthur MD | | | 2016 | | NEPHROLOGY [facility] | [address] [place] | | | | | [address] [place] | [address] [place], [place] | | | | | [address] [place], [place] | [id number] | | | | | [address] | | | | | | [phone] | | | +--------+ + + + [...] [address] | | | | | | [facility] | | | | | | [place] | | | | | | [address] | | | | | | | [...] [address] | | | | | | [place] [address] | | | | | | [phone] | | | | | | | | +--------+ + + + + | 11/25/ | Office | Nephrology | Kei Artuhr MD | | | 2019 | Visit | | [address] [facility] | | | | | | [address] [place] | | | | | | [address] | | | | | | | | +--------+ + + + + documented as of this encounter Procedures + +--------+ + + + | Procedure Name | Priori | Date/Time | Associated Diagnosis | Comments | | | ty | | | | + +--------+ + + + | EXTERNAL LAB: CBC | Routin | 01/10/2017 | | Results for this | | | e | 8:21 AM | | procedure are in the | | | | PDT | | results section. | + +--------+ + + + | IRON AND IRON | Routin | 01/10/2017 | | Results for this | | BINDING CAPACITY | e | 8:21 AM | | procedure are in the | | | | PDT | | results section. | + +--------+ + + + | URINALYSIS WITH | Routin | 01/10/2017 | | Results for this | | MICROSCOPIC IF | e | 8:21 AM | | procedure are in the | | INDICATED | | PDT | | results section. | + +--------+ + + + | PROTEIN/CREATININE | Routin | 01/10/2017 | | Results for this | | RATIO, URINE | e | 8:21 AM | | procedure are in the | | | | PDT | | results section. | + +--------+ + + + | URIC ACID | Routin | 01/10/2017 | | Results for this | | | e | 8:21 AM | | procedure are in the | | | | PDT | | results section. | + +--------+ + + + | TRANSFERRIN | Routin | 01/10/2017 | | Results for this | | | e | 8:21 AM | | procedure are in the | | | | PDT | | results section. | + +--------+ + + + | PARATHYROID HORMONE, | Routin | 01/10/2017 | | Results for this | | INTACT | e | 8:21 AM | | procedure are in the | | | | PDT | | results section. | + +--------+ + + + | MAGNESIUM | Routin | 01/10/2017 | | Results for this | | | e | 8:21 AM | | procedure are in the | | | | PDT | | results section. | + +--------+ + + + | FERRITIN | Routin | 01/10/2017 | | Results for this | | | e | 8:21 AM | | procedure are in the | | | | PDT | | results section. | + +--------+ + + + | RENAL FUNCTION PANEL | Routin | 01/10/2017 | | Results for this | | | e | 8:21 AM | | procedure are in the | | | | PDT | | results section. | + +--------+ + + + documented in this encounter Results Iron and Iron Binding Capacity (01/10/2017 8:21 AM PDT) + +-------+ + + + | Component | Value | Ref Range | Performed | Pathologist | | | | | At | Signature | + +-------+ + + + | Iron | 92.69 | 37 - 160 | EXTERNAL | | | | | | LAB | | + +-------+ + + + | Iron | 23.5 | 20 - 55 | EXTERNAL | | | Saturation | | | LAB | | + +-------+ + + + | TIBC | 395 | 245 - 400 | EXTERNAL | [...] + +---------+ + + Protein/Creatinine Ratio, Urine (01/10/2017 8:21 AM PDT) + + + + + + | Component | Value | Ref Range | Performed | Pathologist | | | | | At | Signature | + + + + + + | Protein/Cre | 804.9 (A) | 0 - 150 | EXTERNAL [...] + + Urinalysis with Microscopic if Indicated (01/10/2017 8:21 AM PDT) + + + + + [...] + + + + | Total | 25 | | EXTERNAL | | | Protein [...] + + + + | Glucose, | Comment: 50 | | EXTERNAL | | | Urine [...] + +---------+ + + External Lab: CBC (01/10/2017 8:21 AM PDT) + + + + + + | Component | Value | Ref Range | Performed | Pathologist | | | | | At | Signature | + + + + + + | WBC | 11.9 (A) | 4.5 - 11.0 10 | EXTERNAL | | | | | | LAB | | + + + + + + | RED CELL | 3.54 (A) | 3.8 - 5.1 10 | EXTERNAL | | | COUNT | | | LAB | | + + + + + + | Hgb | 10.4 (A) | 12.0 - 16.0 | EXTERNAL | | | | | g/dL | LAB | | + + + + + + | Hematocrit, | 31.2 (A) | 35 - 45 % | EXTERNAL | | | POC | | | LAB | | + + + + + + | MCV | 88.8 | 81 - 99 fL | EXTERNAL [...] + + + + | Platelet | 345 | 140 - 440 K/ L | EXTERNAL | | | Count | | | LAB | | | Plasma | | | | | + + + + + + | RDW-CV | 14.7 | 10.5 - 15.0 % | EXTERNAL [...] | + +---------+ + + Uric Acid (01/10/2017 8:21 AM PDT) + +---------+ + + + | Component | Value | Ref Range | Performed | Pathologist | | | | | At | Signature | + +---------+ + + + | Uric Acid | 7.0 (A) | 2.3 - 6.6 | EXTERNAL [...] | | + +---------+ + + Transferrin (01/10/2017 8:21 AM PDT) + +--------+ + + + | Component | Value | Ref Range | Performed | Pathologist | | | | | At | Signature | + +--------+ + + + | TRANSFERRIN | 282.35 | 192 - 382 | EXTERNAL | [...] + +---------+ + + Parathyroid Hormone, Intact (01/10/2017 8:21 AM PDT) + + + + + + | Component | Value | Ref Range | Performed | Pathologist | | | | | At | Signature | + + + + + + | PTH INTACT | 240.0 (A) | 15 - 65 pg/mL | [...] | | + +---------+ + + Magnesium (01/10/2017 8:21 AM PDT) + +-------+ + + + | Component | Value | Ref Range | Performed | Pathologist | | | | | At | Signature | + +-------+ + + + | Magnesium | 1.7 | 1.7 - 2.5 mg/dL | EXTERNAL [...] | | + +---------+ + + Ferritin (01/10/2017 8:21 AM PDT) + + + + + + | Component | Value | Ref Range | Performed | Pathologist | | | | | At | Signature | + + + + + + | Ferritin, | 588.6 (A) | 13 - 150 ng/mL | [...] + +---------+ + + Renal Function Panel (01/10/2017 8:21 AM PDT) + + + + + + | Component | Value | Ref Range | Performed | Pathologist | | | | | At | Signature | + + + + + + | Glucose, | 195 (A) | 70 - 100 mg/dL | EXTERNAL | | | Fasting | | | LAB | | + + + + + + | BUN | 28 (A) | 6 - 23 mg/dL | EXTERNAL | | | | | | LAB | | + + + + + + | Creatinine | 2.01 (A) | 0.60 - 1.35 | EXTERNAL | | | | | mg/dL | LAB | | + + + + + + | PHOSPHORUS | | mg/dL | EXTERNAL | | | | | | LAB | | + + + + + + | Albumin | 3.6 | 3.5 - 5.0 | EXTERNAL | | | | | | LAB | | + + + + + + | Na | 137 | 132 - 143 | EXTERNAL | | | | | mmol/L | LAB | | + + + + + + | K | 4.5 | 3.6 - 5.1 | EXTERNAL | [...] + + + | Anion Gap | 20.5 | 7 - 21 mmol/L | EXTERNAL | | | | | | LAB | | + + + + + + | eGFR if not | | | EXTERNAL | | | | | | LAB | | | NEPALESE | | | | | + + + + + + | Phosphorus, | 3.8 | 2.5 - 5.0 | EXTERNAL | | | Inorganic | | | LAB | | + + + + + + | BUN/Creatin | 13.9 | 6.0 - 28.6 | EXTERNAL | | | ine Ratio | | | LAB | | + + + + + + | Calcium | 9.3 | 8.4 - 10.2 | EXTERNAL | | | | | mg/dL | LAB | | + + + + + + | Estimated | 27 | mg/dL | EXTERNAL | | | [...]
--- OUTSIDE RECORDS SUMMARY | ~2019-10-02 | XMS | Encounter Summary ---
Demographics + + + | Address | [address] | | | [place] [address] | + + + | Home Phone | | + + + | Preferred Language | Unknown | + + + | Marital Status | Single | + + + | Yarsani Affiliation | UNK | + + + | Race | White | + + + | Ethnic Group | Not or | + + + Author + + + | Author | [facility] | + + + | Organization | [facility] | + + + | Address | Unknown | + + + | Phone | Unavailable | + + + Support + + +---------+ + | Name | Relationship | Address | Phone | + + +---------+ + | Valentine Qiu | ECON | Unknown | | + + +---------+ + Care Team Providers + +------+ + | Care Crossword Puzzle Maker Name | Role | Phone | + +------+ + | Ifeanyi Call MD | PCP | | + +------+ + Encounter Details +--------+ + + + + | Date | Type | Department | Care Team | Description | +--------+ + + + + | 03/26/ | Dispute Coordinator | [facility] | Danielito Crockett MD,PhD | Macular dystrophy | | 2016 | | [facility] | [address] | (Primary Dx) | | | | at [facility] [address] | Carrie Sanabria | | | | | [facility] | [place], [place] | | | | | Mailcode: [facility] | [address] | | | | | [place] [address] | [phone] | | | | | [phone] | | | +--------+ + + + [...] + | Diagnosis | + + | 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
--- OUTSIDE RECORDS SUMMARY | ~2019-10-02 | XMS | Encounter Summary ---
Demographics + + + | Address | [address] | | | [place] [address] | + + + | Home Phone | | + + + | Preferred Language | Unknown | + + + | Marital Status | Single | + + + | Baptist Affiliation | 1041 | + + + | Race | Unknown | + + + | Ethnic Group | Unknown | + + + Author + + + | Author | [facility] | | | and [place] | + + + | Organization | [facility] | | | and [place] | + + + | Address | Unknown | + + + | Phone | Unavailable | + + + Support + + + + + | Name | Relationship | Address | Phone | + + + + + | Kyaw Woodson | ECON | [place], [place] | | + + + + + | Barbara Cabrera | ECON | Unknown | | + + + + + | Dimple Hathaway | ECON | Unknown | | + + + + + Care Team Providers + +------+ + | Care Manager Communication Name | Role | Phone | + +------+ + | Jennyfer Gresham MD | PCP | | + +------+ + Encounter Details +--------+ + + + + | Date | Type | Department | Care Team | Description | +--------+ + + + + | 11/07/ | Orders Only | [facility] | Mari Mcdaniel, | | | 2019 | | CARDIOLOGY [place] | [address] | | | | | [address] | [place], [place] | | | | | [place], [place] | [address] | | | | | [address] | | | | | | [phone] | | | +--------+ + + + [...] [place] | | | | | | [address] | | | | | | | [...] | | | | | | [place] [address] | | | | | | [phone] | | | | | | | | +--------+ + + + + | 11/25/ | Office | Nephrology | Kei Arthur MD | | | 2020 | Visit | | [address] | | | | | | [address] [place] | | | | | | [address] | | | | | | | | +--------+ + + + + documented as of this encounter Visit Diagnoses Not on filedocumented in this encounter"
--- OUTSIDE RECORDS SUMMARY | ~2019-10-02 | XMS | Encounter Summary ---
Demographics + + + | Address | [address] | | | [place] [address] | + + + | Home Phone | | + + + | Preferred Language | Unknown | + + + | Marital Status | Single | + + + | Yazdanism Affiliation | 1041 | + + + | Race | Unknown | + + + | Ethnic Group | Unknown | + + + Author + + + | Author | [facility] | | | and [place] | + + + | Organization | [facility] | | | and [place] | + + + | Address | Unknown | + + + | Phone | Unavailable | + + + Support + + + + + | Name | Relationship | Address | Phone | + + + + + | Kyaw Woodson | ECON | [place], [place] | | + + + + + | Barbara Cabrera | ECON | Unknown | | + + + + + | Dimple Hathaway | ECON | Unknown | | + + + + + Care Team Providers + +------+ + | Care Lead Android Developer Name | Role | Phone | + +------+ + | No, Physician | PCP | Unavailable | + +------+ + Encounter Details +--------+ + + + + | Date | Type | Department | Care Team | Description | +--------+ + + + + | 09/22/ | Orders Only | [facility] | Kei Arthur MD | | | 2018 | | NEPHROLOGY [place] | [address] [place] | | | | | [address] [place] | [address] [place], [place] | | | | | [address] [facility], [place] | [address] | | | | | [address] | | | | | | [phone] | | | +--------+ + + + [...] [place] | | | | | | [address] | | | | | | | [...] | | | | | [place] [address] | | | | | | [phone] | | | | | | | | +--------+ + + + + | 11/25/ | Office | Nephrology | Kei Arthur MD | | | 2019 | Visit | | [address] [facility] | | | | | | [address] [place] | | | | | | [address] | | | | | | | | +--------+ + + + + documented as of this encounter Procedures + +--------+ + + + | Procedure Name | Priori | Date/Time | Associated Diagnosis | Comments | | | ty | | | | + +--------+ + + + | EXTERNAL LAB: ZULEIKA | Routin | 09/22/2017 | | Results for this | | | e | 3:00 PM | | procedure are in the | | | | PST | | results section. | + +--------+ + + + | URINALYSIS WITH | Routin | 09/22/2017 | | Results for this | | MICROSCOPIC IF | e | 3:00 PM | | procedure are in the | | INDICATED | | PST | | results section. | + +--------+ + + + | VITAMIN D, | Routin | 09/22/2017 | | Results for this | | DEFICIENCY SCREEN | e | 3:00 PM | | procedure are in the | | (25-HYDROXY) | | PST | | results section. | + +--------+ + + + | PROTEIN/CREATININE | Routin | 09/22/2017 | | Results for this | | RATIO, URINE | e | 3:00 PM | | procedure are in the | | | | PST | | results section. | + +--------+ + + + | URIC ACID | Routin | 09/22/2017 | | Results for this | | | e | 3:00 PM | | procedure are in the | | | | PST | | results section. | + +--------+ + + + | PARATHYROID HORMONE, | Routin | 09/22/2017 | | Results for this | | INTACT | e | 3:00 PM | | procedure are in the | | | | PST | | results section. | + +--------+ + + + | MAGNESIUM | Routin | 09/22/2017 | | Results for this | | | e | 3:00 PM | | procedure are in the | | | | PST | | results section. | + +--------+ + + + | FERRITIN | Routin | 09/22/2017 | | Results for this | | | e | 3:00 PM | | procedure are in the | | | | PST | | results section. | + +--------+ + + + | RENAL FUNCTION PANEL | Routin | 09/22/2017 | | Results for this | | | e | 3:00 PM | | procedure are in the | | | | PST | | results section. | + +--------+ + + + documented in this encounter Results Protein/Creatinine Ratio, Urine (09/22/2017 3:00 PM PST) + + + + + + | Component | Value | Ref Range | Performed | Pathologist | | | | | At | Signature | + + + + + + | Protein/Cre | 680.5 (A) | 0 - 150 | EXTERNAL [...] + + Vitamin D, Deficiency Screen (25-Hydroxy) (09/22/2017 3:00 PM PST) + +-------+ + + + | Component | Value | Ref Range | Performed | Pathologist | | | | | At | Signature | + +-------+ + + + | Vit D, | 35 | 30 - 100 | EXTERNAL | [...] + + Urinalysis with Microscopic if Indicated (09/22/2017 3:00 PM PST) + + + + + + | Component | Value | Ref Range | Performed | Pathologist | | | | | At | Signature | + + + + + + | Color | Yellow | | EXTERNAL | | | | | | LAB | | + + + + + + | Clarity | Cloudy | | EXTERNAL | | | | [...] + + + + | Blood, | Positive | | EXTERNAL | | | Urine [...] + +---------+ + + External Lab: CBC (09/22/2017 3:00 PM PST) + + + + + + | Component | Value | Ref Range | Performed | Pathologist | | | | | At | Signature | + + + + + + | WBC | 10.3 | 4.5 - 11.0 10 | EXTERNAL | | | | | | LAB | | + + + + + + | RED CELL | 3.61 (A) | 3.8 - 5.1 10 | EXTERNAL | | | COUNT | | | LAB | | + + + + + + | Hgb | 10.9 (A) | 12.0 - 16.0 | EXTERNAL | | | | | g/dL | LAB | | + + + + + + | Hematocrit, | 32.2 (A) | 35 - 45 % | EXTERNAL | | | POC | | | LAB | | + + + + + + | MCV | 89.1 | 81 - 99 fL | EXTERNAL [...] + + + + | Platelet | 313 | 140 - 440 K/ L | EXTERNAL | | | Count | | | LAB | | | Plasma | | | | | + + + + + + | RDW-CV | 14.8 | 10.5 - 15.0 % | EXTERNAL [...] | + +---------+ + + Uric Acid (09/22/2017 3:00 PM PST) + +---------+ + + + | Component | Value | Ref Range | Performed | Pathologist | | | | | At | Signature | + +---------+ + + + | Uric Acid | 8.0 (A) | 2.3 - 6.6 | EXTERNAL [...] + +---------+ + + Parathyroid Hormone, Intact (09/22/2017 3:00 PM PST) + + + + + + | Component | Value | Ref Range | Performed | Pathologist | | | | | At | Signature | + + + + + + | PTH INTACT | 186.3 (A) | 15 - 65 pg/mL | [...] | | + +---------+ + + Magnesium (09/22/2017 3:00 PM PST) + +-------+ + + + | Component | Value | Ref Range | Performed | Pathologist | | | | | At | Signature | + +-------+ + + + | Magnesium | 2.1 | 1.7 - 2.5 mg/dL | EXTERNAL [...] | | + +---------+ + + Ferritin (09/22/2017 3:00 PM PST) + + + + + + | Component | Value | Ref Range | Performed | Pathologist | | | | | At | Signature | + + + + + + | Ferritin, | 744.3 (A) | 13 - 150 ng/mL | [...] + +---------+ + + Renal Function Panel (09/22/2017 3:00 PM PST) + + + + + + | Component | Value | Ref Range | Performed | Pathologist | | | | | At | Signature | + + + + + + | Glucose, | 134 (A) | 70 - 100 mg/dL | EXTERNAL | | | Fasting | | | LAB | | + + + + + + | BUN | 50 (A) | 6 - 23 mg/dL | EXTERNAL | | | | | | LAB | | + + + + + + | Creatinine | 2.78 (A) | 0.6 - 1.35 | EXTERNAL [...] + + + | Anion Gap | 16.4 | 7 - 21 mmol/L | EXTERNAL | | | | | | LAB | | + + + + + + | eGFR if not | | | EXTERNAL | | | | | | LAB | | | BENINESE | | | | | + + + + + + | Phosphorus, | 4.2 | 2.5 - 5.0 | EXTERNAL | | | Inorganic | | | LAB | | + + + + + + | BUN/Creatin | 18.0 | 6.0 - 28.6 | EXTERNAL | [...]
--- OUTSIDE RECORDS SUMMARY | ~2019-10-02 | XMS | Encounter Summary ---
Demographics + + + | Address | [address] | | | [place] [address] | + + + | Home Phone | | + + + | Preferred Language | Unknown | + + + | Marital Status | Single | + + + | Church Affiliation | 1041 | + + + | Race | Unknown | + + + | Ethnic Group | Unknown | + + + Author + + + | Author | [facility] | | | and [place] | + + + | Organization | [facility] | | | and [place] | + + + | Address | Unknown | + + + | Phone | Unavailable | + + + Support + + + + + | Name | Relationship | Address | Phone | + + + + + | Kyaw Woodson | ECON | [place], [place] | | + + + + + | Barbara Cabrera | ECON | Unknown | | + + + + + | Dimple Hathaway | ECON | Unknown | | + + + + + Care Team Providers + +------+ + | Care Host/Hostess Head Name | Role | Phone | + +------+ + | No, Physician | PCP | Unavailable | + +------+ + Reason for Visit +--------+ + | Reason | Comments | +--------+ + | Other | call back | +--------+ + Encounter Details +--------+ + + + + | Date | Type | Department | Care Team | Description | +--------+ + + + + | 05/25/ | Telephone | [facility] | Kei Arthur MD | Other (call back) | | 2019 | | NEPHROLOGY [place] | [address] | | | | | [address] [place] | [address] [place] | | | | | [address] [place] | [id number] | | | | | [address] | | | | | | [phone] | | | +--------+ + + + [...] [place] | | | | | | [address] | | | | | | | [...] | | | | | [place] [address] | | | | | | [phone] | | | | | | | | +--------+ + + + + | 11/25/ | Office | Nephrology | Kei Arthur MD | | | 2020 | Visit | | [address] [facility] | | | | | | [address] [place] | | | | | | [address] | | | | | | | | +--------+ + + + + documented as of this encounter Visit Diagnoses Not on filedocumented in this encounter"
--- OUTSIDE RECORDS SUMMARY | ~2019-10-02 | XMS | Encounter Summary ---
Demographics + + + | Address | [address] | | | [place] [address] | + + + | Home Phone [...] Organization | [facility] | | | and [place] | + + + | Address | Unknown | + + + | Phone | Unavailable | + + + Support + + + + + | Name | Relationship | Address | Phone | + + + + + | Kyaw Woodson | ECON | [place], [place] | | + + + + + | Barbara Cabrera | ECON | Unknown | | + + + + + | Dimple Hathaway | ECON | Unknown | | + + + + + Care Team Providers + +------+ + | Care Operating Room Aide Name | Role | Phone | + +------+ + | No, Physician | PCP | Unavailable | + +------+ + Encounter Details +--------+ + + + + | Date | Type | Department | Care Team | Description | +--------+ + + + + | 04/17/ | Orders Only | [facility] | Conversion | | | 2017 | | NEPHROLOGY [place] | Transaction, | | | | | [address] | Provider Unknown | | | | | [address] [facility] [place] | | | | | | [address] | (Fax) | | | | | [phone] | | | +--------+ + + + [...] [place] | | | | | | [id number] | | | | | | | [...] | | | | | [place] [address] | | | | | | [phone] | | | | | | | | +--------+ + + + + | 11/25/ | Office | Nephrology | Kei Arthur MD | | | 2019 | Visit | | [address] [facility] | | | | | | [address] [place], [place] | | | | | | [address] | | | | | | | [...]
--- OUTSIDE RECORDS SUMMARY | ~2019-10-02 | XMS | Encounter Summary ---
Demographics + + + | Address | [address] | | | [place] [address] | + + + | Home Phone | | + + + | Preferred Language | Unknown | + + + | Marital Status | Single | + + + | Shinto Affiliation | UNK | + + + | Race | White | + + + | Ethnic Group | Not or | + + + Author + + + | Author | [facility] | + + + | Organization | [facility] | + + + | Address | Unknown | + + + | Phone | Unavailable | + + + Support + + +---------+ + | Name | Relationship | Address | Phone | + + +---------+ + | Valentine Qiu | ECON | Unknown | | + + +---------+ + Care Team Providers + +------+ + | Care Support Director Name | Role | Phone | + +------+ + | Ifeanyi Call MD | PCP | | + +------+ + Encounter Details +--------+ + + + + | Date | Type | Department | Care Team | Description | +--------+ + + + + | 09/02/ | Lining [facility]usher | [facility] | Danielito Crockett MD,PhD | Maculopathy (Primary | | 2016 | | [facility] | [address] | Dx); Macular | | | | at [facility] [address] | Carrie [address]abria | dystrophy | | | | [facility] | [place], [place] | | | | | Mailcode: [facility] | [address] | | | | | [place] [address] | [phone] | | | | | [phone] | | | +--------+ + + + [...] as of this encounter Plan of Treatment + + +--------+ + + | Name | Type | Priori | Associated Diagnoses | Order Schedule | | | | ty | | | + + +--------+ + + | GENETICS VISUAL | Procedures | Routin | Macular dystrophy | Expected: | | FIELD | | e | Maculopathy | 03/29/2016, Expires: | | | | | | 09/29/2017 | + + +--------+ + + | COLOR PHOTOGRAPHY | Procedures | Routin | Macular dystrophy | Expected: | | | | e | Maculopathy | 09/02/2016, Expires: | | | | | | 09/29/2017 | + + +--------+ + + | FUNDUS PHOTO | Procedures | Routin | Macular dystrophy | Expected: | | AUTOFLUORESCENCE | | e | Maculopathy | 09/02/2016, Expires: | | | | | | 09/29/2017 | + + +--------+ + + | FLUORESCEIN | Procedures | Routin | Macular dystrophy | Expected: | | ANGIOGRAM | | e | Maculopathy | 09/02/2016, Expires: | | | | | | 09/29/2017 | + + +--------+ + + documented as of this encounter Visit Diagnoses + + | Diagnosis | + + | Maculopathy - Primary Unspecified retinal disorder | + + | Macular dystrophy Hereditary retinal dystrophy, unspecified | + + documented in this encounter"
--- OUTSIDE RECORDS SUMMARY | ~2019-10-02 | XMS | Encounter Summary ---
Demographics + + + | Address | [address] | | | [place] [address] | + + + | Home Phone [...] | Organization | [facility] | | | and [place] | + + + | Address | Unknown | + + + | Phone | Unavailable | + + + Support + + + + + | Name | Relationship | Address | Phone | + + + + + | Kyaw Woodson | ECON | [place], [place] | | + + + + + | Barbara Cabrera | ECON | Unknown | | + + + + + | Dimple Hathaway | ECON | Unknown | | + + + + + Care Team Providers + +------+ + | Care Silk Weaver Name | Role | Phone | + +------+ + | Daniel Land NP | PCP | | + +------+ + Encounter Details +--------+ + + + + | Date | Type | Department | Care Team | Description | +--------+ + + + + | 08/27/ | Orders Only | [facility] | Conversion | | | 2015 | | CARDIOLOGY ROBERT | Transaction, | | | | | [address] | Provider Unknown | | | | | [facility] | [phone] | | | | | [address] | | | | | | [phone] | | | +--------+ + + + [...] [address] | | | | | | [address] | | | | | | [place] | | | | | | [address] | | | | | | | [...] | | | | | [place] [address] | | | | | | [phone] | | | | | | | | +--------+ + + + + | 11/25/ | Office | Nephrology | Kei Arthur MD | | | 2019 | Visit | | [address] [facility] | | | | | | [address] [place] | | | | | | [address] | | | | | | | | +--------+ + + + + documented as of this encounter Procedures + +--------+ + + + | Procedure Name | Priori | Date/Time | Associated Diagnosis | Comments | | | ty | | | | + +--------+ + + + | LIPID PANEL | Routin | 08/27/2015 | | Results for this | | | e | 8:05 AM | | procedure are in the | | | | PST | | results section. | + +--------+ + + + documented in this encounter Results Lipid Panel (08/27/2015 8:05 AM PST) + + + + + + | Component | Value | Ref Range | Performed | Pathologist | | | | | At | Signature | + + + + + + | Cholesterol | 289 (A) | 200 mg/dL | EXTERNAL | | | | | | LAB | | + + + + + + | Triglycerid | 1211 (A) | 30 - 150 mg/dL | EXTERNAL | | | es | | | LAB | | + + + + + + | HDL | 28.7 (A) | 40 mg/dl | EXTERNAL | | | | | | LAB | | + + + + + + | LDL | | mg/dL | EXTERNAL | | | Cholesterol | | | LAB | | | , | | | | | | Calculated, | | | | | | External | | | | | + + + + + + | LDl/HDL | | | EXTERNAL | | | Ratio | | | LAB | | + + + + + + | Chol/HDL | 10.1 (A) | 4.44 | EXTERNAL | | | Ratio | | | LAB | | + + + + + + | VLDL | | mg/dL | EXTERNAL | | | | | | LAB | | + + + + + + | Non HDL | 260 (A) | 130 | EXTERNAL | | | Chol. | | | LAB | | | (LDL+VLDL) | | | | | + + [...]
--- OUTSIDE RECORDS SUMMARY | ~2019-10-02 | XMS | Encounter Summary ---
Demographics + + + | Address | [address] | | | [place] [address] | + + + | Home Phone | | + + + | Preferred Language | Unknown | + + + | Marital Status | Single | + + + | Judaism Affiliation | 1041 | + + + | Race | Unknown | + + + | Ethnic Group | Unknown | + + + Author + + + | Author | [facility] | | | and [place] | + + + | Organization | [facility] | | | and [place] | + + + | Address | Unknown | + + + | Phone | Unavailable | + + + Support + + + + + | Name | Relationship | Address | Phone | + + + + + | Kyaw Woodson | ECON | [place], [place] | | + + + + + | Barbara Cabrera | ECON | Unknown | | + + + + + | Dimple Hathaway | ECON | Unknown | | + + + + + Care Team Providers + +------+ + | Care Ekg/Ecg Technician Name | Role | Phone | + +------+ + | No, Physician | PCP | Unavailable | + +------+ + Encounter Details +--------+ + + + + | Date | Type | Department | Care Team | Description | +--------+ + + + + | 06/14/ | Hospital | [facility] | Conversion | Diagnosis unknown | | 2015 | Encounter | CONVERSION [address] | Transaction, | | | | | [address] | Provider Unknown | | | | | [place], [place] | [phone] | | | | | [address] | | | | | | [phone] | | | +--------+ + + + [...] [place] | | | | | | [address] | | | | | | | [...] | | | | | | [place] [address] | | | | | | [phone] | | | | | | | | +--------+ + + + + | 11/25/ | Office | Nephrology | Kei Arthur MD | | | 2019 | Visit | | [address] [facility] | | | | | | [facility] | | | | | | [address] | | | | | | | | +--------+ + + + + documented as of this encounter Procedures + +--------+ + + + | Procedure Name | Priori | Date/Time | Associated Diagnosis | Comments | | | ty | | | | + +--------+ + + + | XR CHEST 2 VIEWS | Routin | 11/30/2015 | | Results for this | | | e | 6:37 PM | | procedure are in the | | | | PDT | | results section. | + +--------+ + + + documented in this encounter Results XR Chest 2 Vws (11/30/2015 6:37 PM PDT) + + | Specimen | [...]
--- OUTSIDE RECORDS SUMMARY | ~2019-10-02 | XMS | Encounter Summary ---
Demographics + + + | Address | [address] | | | [place] [address] | + + + | Home Phone | | + + + | Preferred Language | Unknown | + + + | Marital Status | Single | + + + | Rastafarian Affiliation | 1041 | + + + | Race | Unknown | + + + | Ethnic Group | Unknown | + + + Author + + + | Author | [facility] | | | and [place] | + + + | Organization | [facility] | | | and [place] | + + + | Address | Unknown | + + + | Phone | Unavailable | + + + Support + + + + + | Name | Relationship | Address | Phone | + + + + + | Kyaw Woodson | ECON | [place], [place] | | + + + + + | Barbara Cabrera | ECON | Unknown | | + + + + + | Dimple Hathaway | ECON | Unknown | | + + + + + Care Team Providers + +------+ + | Care Security And Compliance Analyst Name | Role | Phone | + +------+ + | Daniel Land NP | PCP | | + +------+ + Encounter Details +--------+ + + + + | Date | Type | Department | Care Team | Description | +--------+ + + + + | 03/24/ | Orders Only | [facility] | Racheal Armendariz | | | 2017 | | CONVERSION [address] | [address] | | | | | [address] | [place] | | | | | [place], [place] | [place] [address] | | | | | [address] | [phone] | | | | | [phone] | | | +--------+ + + + [...] | | | | | | [facility] | | | | | | [address] | | | | | | | [...] [address] | | | | | | [place] [address] | | | | | | [phone] | | | | | | | | +--------+ + + + + | 11/25/ | Office | Nephrology | Kei Arthur MD | | | 2019 | Visit | | [address] [facility] | | | | | | [address] [place] [address] | | | | | | [address] | | | | | | | | +--------+ + + + + documented as of this encounter Procedures + +--------+ + + + | Procedure Name | Priori | Date/Time | Associated Diagnosis | Comments | | | ty | | | | + +--------+ + + + | ECHO INTERPRETATION | Routin | 03/24/2017 | | Results for this | | OF OUTSIDE FILMS | e | 9:27 AM | | procedure are in the | | | | PDT | | results section. | + +--------+ + + + documented in this encounter Results ECHO Interpretation of Outside Films (03/24/2017 9:27 AM PDT) + + | Specimen | + + | | + + + + + | Impressions | Performed At | + + + | 1. This was a technically difficult study with suboptimal views. 2. | | | The left ventricle is normal in size, wall thickness, mildly impaired | | | systolic function EF 40-45%, mid anterior, anteroseptal, apical | | | anterior and apex akinesis. 3. The diastolic filling pattern | | | indicates impaired relaxation consistent with mild dysfunction (Grade | | | I). 4. The right ventricle is normal in size and systolic function. | | | 5. Moderate mitral regurgitation with mildly dilated left atrium. 6. | | | There is no pericardial effusion. 7. Poor visualization of apical | | | segment to rule out apical thrombus. Definity is recommended. | | + + + + + + | Narrative | Performed At | + + + | Patient Name: Alondra Caballero Date of : 1970 | | | Performing Physician: Mari Mcdaniel | | | | | | INDICATIONS CAD, HTN CONCLUSIONS 1. | | | This was a technically difficult study with suboptimal views. 2. The | | | left ventricle is normal in size, wall thickness, mildly impaired | | | systolic function EF 40-45%, mid anterior, anteroseptal, apical | | | anterior and apex akinesis. 3. The diastolic filling pattern | | | indicates impaired relaxation consistent with mild dysfunction (Grade | | | I). 4. The right ventricle is normal in size and systolic function. | | | 5. Moderate mitral regurgitation with mildly dilated left atrium. 6. | | | There is no pericardial effusion. 7. Poor visualization of apical | | | segment to rule out apical thrombus. Definity is recommended. | | | FINDINGS -------- ECG rhythm: Sinus rhythm. Study: A 2-dimensional | | | transthoracic echocardiogram with m-mode, spectral and color flow | | | Doppler was perfomed. Study: This was a technically difficult study | | | with suboptimal views. Left Ventricle: Overall left ventricular | | | systolic function is mild-moderately impaired with, an EF between 40 - | | | 45 %. Left Ventricle: The left ventricle cavity size is normal. | | | Left Ventricle: Left ventricular wall thickness is normal. Left | | | Ventricle: The diastolic filling pattern indicates impaired relaxation | | | consistent with mild dysfunction (Grade I). Left Ventricle: Mid to | | | apex anteroseptal and inferior severe hypokinesis/akinesis. Right | | | Ventricle: The right ventricle is normal in size. Right Ventricle: | | | The right ventricular systolic function is normal. Left Atrium: The | | | left atrium is mildly dilated. Right Atrium: The right atrial size is | | | normal. Aortic Valve: The aortic valve is trileaflet. Aortic Valve: | | | There is no evidence of aortic regurgitation. Aortic Valve: There is | | | no evidence of aortic stenosis. Mitral Valve: Moderate mitral | | | regurgitation is present Mitral Valve: , predominately a posteriorly | | | directed jet. Mitral Valve: Mild mitral annular calcification | | | present. Tricuspid Valve: The tricuspid valve appears structurally | | | normal. Tricuspid Valve: Trace tricuspid regurgitation present. | | | Tricuspid Valve: There is no evidence of pulmonary hypertension. | | | Tricuspid Valve: The right ventricular systolic pressure (pulmonary | | | artery systolic pressure), as measured by Doppler, is 21.14mmHg. | | | Tricuspid Valve: Pulmonary artery systolic pressure could not be | | | assessed due to the absence of adequate TR jet. Pulmonic Valve: The | | | pulmonic valve is normal. Pericardium: There is no pericardial | | | effusion. Pericardium: No pleural effusion seen. IVC/Hepatic Veins: | | | The IVC was not well visualized. Aorta: The aortic root, ascending | | | aorta are within normal dimensions. Contrast: Poor visualization of | | | the apical segment to rule out apical thrombus. Definity would be | | | recommended to opacify the left ventricular chamber and improve | | | delineation of the endocardial border. MEASUREMENTS | | | Ao asc: 3.19 cm Ao Diam: 3.34 cm Ao sinus: 2.[address] | | | junct: 2.86 cm LA Diam: 5.15 cm LA Major: 5.72 cm | | | EDV(Teich): 162.56 ml IVSd: 0.97 cm LVIDd: 5.73 cm LVPWd: | | | 0.88 cm LVOT Area: 3.27 cm2 LVOT Diam: 2.04 cm %FS: | | | 28.23 % EF(Teich): 53.85 % ESV(Teich): 75.00 ml LVIDs: | | | 4.11 cm SV(Teich): 87.55 ml RA Major: 4.93 cm RV Major: | | | 6.71 cm RVIDd: 2.92 cm LVEF MOD A2C: 38.86 % SV MOD A2C: | | | 51.94 ml LVEF MOD A4C: 45.23 % SV MOD A4C: 58.43 ml EF | | | Biplane: 40.46 % LVEDV MOD BP: 133.02 ml LVESV MOD BP: | | | 79.19 ml LVEDV MOD A2C: 133.64 ml LVLd A2C: 8.32 cm LVEDV MOD | | | A4C: 129.18 ml LVLd A4C: 8.11 cm LVESV MOD A2C: 81.69 ml | | | LVLs A2C: 7.83 cm LVESV MOD A4C: 70.75 ml LVLs A4C: 7.19 cm | | | LAESV(A-L): 86.91 ml LAESV Index (A-L): 36.67 ml/m2 LAAs | | | A2C: 25.30 cm2 LAESV A-L A2C: 93.02 ml LAESV MOD A2C: 85.79 | | | ml LALs A2C: 5.84 cm LAAs A4C: 23.01 cm2 LAESV A-L A4C: | | | 81.67 ml LAESV MOD A4C: 75.96 ml LALs A4C: 5.68 cm RAAs: | | | 15.40 cm2 RAESV A-L: 39.74 ml RAESV MOD: 38.31 ml RALs: | | | 5.06 cm TAPSE: 2.25 cm AV maxP.38 mmHg AV meanP.47 | | | mmHg AV Vmax: 1.35 m/s AV Vmean: 1.00 m/s AV VTI: 26.87 | | | cm ALMITA Vmax: 2.36 cm2 ALMITA (VTI): 2.28 cm2 AVAI Vmax: 0.00 | | | cm2/m2 AVAI (VTI): 0.00 cm2/m2 LVOT maxP.85 mmHg LVOT | | | meanP.16 mmHg LVSI Dopp: 25.96 ml/m2 LVSV Dopp: 61.53 | | | ml LVOT Vmax: 0.98 m/s LVOT Vmean: 0.67 m/s LVOT VTI: | | | 18.77 cm MV A Navid: 1.23 m/s MV DecT: 179.18 ms MV E Navid: | | | 1.30 m/s MV E/A Ratio: 1.06 MV PHT: 51.96 ms MVA By PHT: | | | 4.23 cm2 Septal e': 0.05 m/s Septal E/e': 22.42 Lateral e': | | | 0.05 m/s Lateral E/e': 22.35 RAP: 10 mmHg RVSP: 21.13 | | | mmHg TR maxP.13 mmHg TR Vmax: 1.66 m/s Cook Cold Meat: | | | DBS Authenticated by: Mari Mcdaniel Report Date/Time: 03-24-2017 | | | 14:00:48 | | + + + + + | Procedure Note | + + | Marcelo Matias Conversion - 05/10/2019 6:02 PM PDT Patient Name: Jeovanny Caballero of | | : 1970 Performing Physician: Mari | | Violeta INDICATIONS------ | | -----CAD, HTN CONCLUSIONS 1. This was a technically difficult study with | | suboptimal views.2. The left ventricle is normal in size, wall thickness, mildly | | impaired systolic function EF 40-45%, mid anterior, anteroseptal, apical anterior and | | apex akinesis.3. The diastolic filling pattern indicates impaired relaxation consistent | | with mild dysfunction (Grade I).4. The right ventricle is normal in size and systolic | | function.5. Moderate mitral regurgitation with mildly dilated left atrium.6. There is no | | pericardial effusion.7. Poor visualization of apical segment to rule out apical | | thrombus. Definity is recommended. FINDINGS--------ECG rhythm: Sinus rhythm.Study: A | | 2-dimensional transthoracic echocardiogram with m-mode, spectral and color flow Doppler | | was perfomed.Study: This was a technically difficult study with suboptimal views.Left | | Ventricle: Overall left ventricular systolic function is mild-moderately impaired with, | | an EF between 40 - 45 %.Left Ventricle: The left ventricle cavity size is normal.Left | | Ventricle: Left ventricular wall thickness is normal.Left Ventricle: The diastolic | | filling pattern indicates impaired relaxation consistent with mild dysfunction (Grade | | I).Left Ventricle: Mid to apex anteroseptal and inferior severe | | hypokinesis/akinesis.Right Ventricle: The right ventricle is normal in size.Right | | Ventricle: The right ventricular systolic function is normal.Left Atrium: The left | | atrium is mildly dilated.Right Atrium: The right atrial size is normal.Aortic Valve: The | | aortic valve is trileaflet.Aortic Valve: There is no evidence of aortic | | regurgitation.Aortic Valve: There is no evidence of aortic stenosis.Mitral Valve: | | Moderate mitral regurgitation is presentMitral Valve: , predominately a posteriorly | | directed jet.Mitral Valve: Mild mitral annular calcification present.Tricuspid Valve: | | The tricuspid valve appears structurally normal.Tricuspid Valve: Trace tricuspid | | regurgitation present.Tricuspid Valve: There is no evidence of pulmonary | | hypertension.Tricuspid Valve: The right ventricular systolic pressure (pulmonary artery | | systolic pressure), as measured by Doppler, is 21.14mmHg.Tricuspid Valve: Pulmonary | | artery systolic pressure could not be assessed due to the absence of adequate TR | | jet.Pulmonic Valve: The pulmonic valve is normal.Pericardium: There is no pericardial | | effusion.Pericardium: No pleural effusion seen.IVC/Hepatic Veins: The IVC was not well | | visualized.Aorta: The aortic root, ascending aorta are within normal | | dimensions.Contrast: Poor visualization of the apical segment to rule out apical | | thrombus. Definity would be recommended to opacify the left ventricular chamber and | | improve delineation of the endocardial border. MEASUREMENTS Ao asc: 3.19 | | cmAo Diam: 3.34 cmAo sinus: 2.[address] junct: 2.86 cmLA Diam: 5.15 cmLA Major: | | 5.72 cmEDV(Teich): 162.56 mlIVSd: 0.97 cmLVIDd: 5.73 cmLVPWd: 0.88 cmLVOT | | Area: 3.27 [id number] Diam: 2.04 cm%FS: 28.23 %EF(Teich): 53.85 %ESV(Teich): | | 75.00 mlLVIDs: 4.11 cmSV(Teich): 87.55 mlRA Major: 4.93 cmRV Major: 6.71 | | cmRVIDd: 2.92 cmLVEF MOD A2C: 38.86 %SV MOD A2C: 51.94 mlLVEF MOD A4C: 45.23 %SV | | MOD A4C: 58.43 mlEF Biplane: 40.46 %LVEDV MOD BP: 133.02 mlLVESV MOD BP: 79.19 | | mlLVEDV MOD A2C: 133.64 mlLVLd A2C: 8.32 cmLVEDV MOD A4C: 129.18 mlLVLd A4C: | | 8.11 cmLVESV MOD A2C: 81.69 mlLVLs A2C: 7.83 cmLVESV MOD A4C: 70.75 mlLVLs A4C: | | 7.19 cmLAESV(A-L): 86.91 mlLAESV Index (A-L): 36.67 ml/m2LAAs A2C: 25.30 [id number] | | A-L A2C: 93.02 mlLAESV MOD A2C: 85.79 mlLALs A2C: 5.84 cmLAAs A4C: 23.01 | | [id number] A-L A4C: 81.67 mlLAESV MOD A4C: 75.96 mlLALs A4C: 5.68 cmRAAs: 15.40 | | [id number] A-L: 39.74 mlRAESV MOD: 38.31 mlRALs: 5.06 cmTAPSE: 2.25 cmAV maxPG: | | 7.38 mmHgAV meanP.47 mmHgAV Vmax: 1.35 m/Jordan Vmean: 1.00 m/Jordan VTI: 26.87 | | cmAVA Vmax: 2.36 cm2AVA (VTI): 2.28 [id number] Vmax: 0.00 cm2/m2AVAI (VTI): 0.00 | | cm2/m2LVOT maxP.85 mmHgLVOT meanP.16 mmHgLVSI Dopp: 25.96 ml/m2LVSV Dopp: | | 61.53 mlLVOT Vmax: 0.98 m/sLVOT Vmean: 0.67 m/sLVOT VTI: 18.77 cmMV A Navid: | | 1.23 m/sMV DecT: 179.18 msMV E Navid: 1.30 m/sMV E/A Ratio: 1.06MV PHT: 51.96 | | msMVA By PHT: 4.23 fs4Czzuyx e': 0.05 m/sSeptal E/e': 22.42Lateral e': 0.05 | | m/sLateral E/e': 22.35RAP: 10 mmHgRVSP: 21.13 mmHgTR maxP.13 mmHgTR Vmax: | | 1.66 m/s Cook Cold Meat: TREVERAuthenticated by: Mari [facility] Date/Time: 03-24-2017 | | 14:00:48 IMPRESSION: 1. This was a technically difficult study with suboptimal views.2. | | The left ventricle is normal in size, wall thickness, mildly impaired systolic function | | EF 40-45%, mid anterior, anteroseptal, apical anterior and apex akinesis.3. The | | diastolic filling pattern indicates impaired relaxation consistent with mild dysfunction | | (Grade I).4. The right ventricle is normal in size and systolic function.5. Moderate | | mitral regurgitation with mildly dilated left atrium.6. There is no pericardial | | effusion.7. Poor visualization of apical segment to rule out apical thrombus. Definity | | is recommended. | |LVIDd: 5.73 cm | |LVPWd: 0.88 cm | |LVOT Area: 3.27 cm2 | |LVOT Diam: 2.04 cm | |%FS: 28.23 % | |EF(Teich): 53.85 % | |ESV(Teich): 75.00 ml | |LVIDs: 4.11 cm | |SV(Teich): 87.55 ml | |RA Major: 4.93 cm | |RV Major: 6.71 cm | |RVIDd: 2.92 cm | |LVEF MOD A2C: 38.86 % | |SV MOD A2C: 51.94 ml | |LVEF MOD A4C: 45.23 % | |SV MOD A4C: 58.43 ml | |EF Biplane: 40.46 % | |LVEDV MOD BP: 133.02 ml | |LVESV MOD BP: 79.19 ml | |LVEDV MOD A2C: 133.64 ml | |LVLd A2C: 8.32 cm | |LVEDV MOD A4C: 129.18 ml | |LVLd A4C: 8.11 cm | |LVESV MOD A2C: 81.69 ml | |LVLs A2C: 7.83 cm | |LVESV MOD A4C: 70.75 ml | |LVLs A4C: 7.19 cm | |LAESV(A-L): 86.91 ml | |LAESV Index (A-L): 36.67 ml/m2 | |LAAs A2C: 25.30 cm2 | |LAESV A-L A2C: 93.02 ml | |LAESV MOD A2C: 85.79 ml | |LALs A2C: 5.84 cm | |LAAs A4C: 23.01 cm2 | |LAESV A-L A4C: 81.67 ml | |LAESV MOD A4C: 75.96 ml | |LALs A4C: 5.68 cm | |RAAs: 15.40 cm2 | |RAESV A-L: 39.74 ml | |RAESV MOD: 38.31 ml | |RALs: 5.06 cm | |TAPSE: 2.25 cm | |AV maxP.38 mmHg | |AV meanP.47 mmHg | |AV Vmax: 1.35 m/s | |AV Vmean: 1.00 m/s | |AV VTI: 26.87 cm | |ALMITA Vmax: 2.36 cm2 | |ALMITA (VTI): 2.28 cm2 | |AVAI Vmax: 0.00 cm2/m2 | |AVAI (VTI): 0.00 cm2/m2 | |LVOT maxP.85 mmHg | |LVOT meanP.16 mmHg | |LVSI Dopp: 25.96 ml/m2 | |LVSV Dopp: 61.53 ml | |LVOT Vmax: 0.98 m/s | |LVOT Vmean: 0.67 m/s | |LVOT VTI: 18.77 cm | |MV A Navid: 1.23 m/s | |MV DecT: 179.18 ms | |MV E Navid: 1.30 m/s | |MV E/A Ratio: 1.06 | |MV PHT: 51.96 ms | |MVA By PHT: 4.23 cm2 | |Septal e': 0.05 m/s | |Septal E/e': 22.42 | |Lateral e': 0.05 m/s | |Lateral E/e': 22.35 | |RAP: 10 mmHg | |RVSP: 21.13 mmHg | |TR maxP.13 mmHg | |TR Vmax: 1.66 m/s | | | |Cook Cold Meat: DBS | |Authenticated by: Mari Mcdaniel | |Report Date/Time: 03-24-2017 14:00:48 | | | |IMPRESSION: | |1. This was a technically difficult study with suboptimal views. | |2. The left ventricle is normal in size, wall thickness, mildly impaired systolic function EF 40-45%, mid anterior, anteroseptal, apical anterior and apex akinesis. | |3. The diastolic filling pattern indicates impaired relaxation consistent with mild dysfunc tion (Grade I). | |4. The right ventricle is normal in size and systolic function. | |5. Moderate mitral regurgitation with mildly dilated left atrium. | |6. There is no pericardial effusion. | |7. Poor visualization of apical segment to rule out apical thrombus. Lexy is recommendsavanna del toro. | + + documented in this encounter Visit Diagnoses Not on filedocumented in this encounter"
--- OUTSIDE RECORDS SUMMARY | ~2019-10-02 | XMS | Encounter Summary ---
Demographics + + + | Address | [address] | | | [place] [address] | + + + | Home Phone | | + + + | Preferred Language | Unknown | + + + | Marital Status | Single | + + + | Jain Affiliation | 1041 | + + + | Race | Unknown | + + + | Ethnic Group | Unknown | + + + Author + + + | Author | [facility] | | | and [place] | + + + | Organization | [facility] | | | and [place] | + + + | Address | Unknown | + + + | Phone | Unavailable | + + + Support + + + + + | Name | Relationship | Address | Phone | + + + + + | Kyaw Woodson | ECON | [place], [place] | | + + + + + | Barbara Cabrera | ECON | Unknown | | + + + + + | Dimple Hathaway | ECON | Unknown | | + + + + + Care Team Providers + +------+ + | Care Client Service Consultant Name | Role | Phone | + +------+ + | No, Physician | PCP | Unavailable | + +------+ + Encounter Details +--------+ + + + + | Date | Type | Department | Care Team | Description | +--------+ + + + + | 11/17/ | Orders Only | [facility] | Conversion | | | 2017 | | NEPHROLOGY KARSTEN | Transaction, | | | | | [address] | Provider Unknown | | | | | [address] [place], [place] | | | | | | [address] | (Fax) | | | | | [phone] | | | +--------+ + + + [...] [place] | | | | | | [id number] | | | | | | | [...] | | | | | [place] [address] | | | | | | [phone] | | | | | | | | +--------+ + + + + | 11/25/ | Office | Nephrology | Kei Arthur MD | | | 2019 | Visit | | [address] [facility] | | | | | | [address] [place], [place] | | | | | | [address] | | | | | | | [...]
--- OUTSIDE RECORDS SUMMARY | ~2019-10-02 | XMS | Encounter Summary ---
Demographics + + + | Address | [address] | | | [place] [address] | + + + | Home Phone [...] + + | Author | [facility] | | | and [place] | + + + | Organization | [facility] | | | and [place] | + + + | Address | Unknown | + + + | Phone | Unavailable | + + + Support + + + + + | Name | Relationship | Address | Phone | + + + + + | Kyaw Woodson | ECON | [place], [place] | | + + + + + | Barbara Cabrera | ECON | Unknown | | + + + + + | Dimple Hathaway | ECON | Unknown | | + + + + + Care Team Providers + +------+ + | Care Oil Changer Name | Role | Phone | + +------+ + | Jennyfer Gresham MD | PCP | | + +------+ + Reason for Visit + + + | Reason | Comments | + + + | Device Check | ryan sicd in-office w carey | | (In-office) | | + + + Encounter Details +--------+ + + + + | Date | Type | Department | Care Team | Description | +--------+ + + + + | 08/22/ | Procedure | [facility] | | ICD (implantable | | 2019 | visit | [facility] [place] | | cardioverter-defibri | | | | [address] | | [place], [place] | | | | [place] | | situ (Primary Dx) | | | | [address] | | | | | | [phone] | | | +--------+ + + + [...] BETANCOURT | | | | | | [id number] | | | | | | | [...] | | | | | [place] [address] | | | | | | [phone] | | | | | | | | +--------+ + + + + | 11/25/ | Office | Nephrology | Kei Arthur MD | | | 2019 | Visit | | [address] | | | | | | [address] [place], [place] | | | | | | [address] | | | | | | | | +--------+ + + + + documented as of this encounter Procedures + +--------+ + + + | Procedure Name | Priori | Date/Time | Associated Diagnosis | Comments | | | ty | | | | + +--------+ + + + | DEVICE INTERROGATION | Routin | 08/23/2019 | ICD (implantable | Results for this | | | e | 12:00 AM | cardioverter-defibri | procedure are in the | | | | PST | llator), single, in | results section. | | | | | situ | | + +--------+ + + + documented in this encounter Results Device Interrogation (08/23/2019 12:00 AM PST) + + + | Narrative | Performed At | + + + | Brenda Koroma | [facility] | | [facility] Learning And Development Specialist 08/23/2019 10:23 AMDevice interrogation | | | done by Marilu Watts Any events or changes listed in office note. See | | | device data attached to scheduled encounter for additional details. | | | sap manager: Brenda Ramirez, [facility] | | |See device data attached to scheduled encounter for additional | | |details. | | | | | |sap manager: Brenda Ramirez, [facility] | | + + + + + | Procedure Note | + + | Brenda Ramirez, Learning And Development Specialist - 08/22/2019 10:30 AM PST Device interrogation | | done by Marilu Guerra events or changes listed in office note.See device data attached | | to scheduled encounter for additional details. sap manager: Brenda Ramirez, [facility] | | | |See device data attached to scheduled encounter for additional details. | | | |sap manager: Brenda Ramirez, [facility] | + + + +---------+ + + | Performing | Address | City/State/Zipcode | Phone Number | | Organization | | | | + +---------+ + + | [facility] | | | | + +---------+ + + documented in this encounter Visit Diagnoses + + | Diagnosis | + + | ICD (implantable cardioverter-defibrillator), single, in situ - Primary | + + documented in this encounter"
--- OUTSIDE RECORDS SUMMARY | ~2019-10-02 | XMS | Encounter Summary ---
Demographics + + + | Address | [address] | | | [place] [address] | + + + | Home Phone | | + + + | Preferred Language | Unknown | + + + | Marital Status | Single | + + + | Roman Catholic Affiliation | 1041 | + + + | Race | Unknown | + + + | Ethnic Group | Unknown | + + + Author + + + | Author | [facility] | | | and [place] | + + + | Organization | [facility] | | | and [place] | + + + | Address | Unknown | + + + | Phone | Unavailable | + + + Support + + + + + | Name | Relationship | Address | Phone | + + + + + | Kyaw Woodson | ECON | [place], [place] | | + + + + + | Barbara Cabrera | ECON | Unknown | | + + + + + | Dimple Hathaway | ECON | Unknown | | + + + + + Care Team Providers + +------+ + | Care Chief Cloth Finishing Range Operator Name | Role | Phone | + +------+ + | Daniel Land NP | PCP | | + +------+ + Encounter Details +--------+ + + + + | Date | Type | Department | Care Team | Description | +--------+ + + + + | 11/26/ | Orders Only | [facility] | Kei Arthur MD | | | 2015 | | NEPRHOLOGY [place] | [address] | | | | | [address] | [address] [place], [place] | | | | | [address] [place], [place] | [address] | | | | | [address] | | | | | | [phone] | | | +--------+ + + + [...] [address] | | | | | | [facility] | | | | | | [place] | | | | | | [address] | | | | | | | [...] [address] | | | | | | [place] [address] | | | | | | [phone] | | | | | | | | +--------+ + + + + | 11/25/ | Office | Nephrology | Kei Arthur MD | | | 2019 | Visit | | [address] | | | | | | [address] [facility] | | | | | | [address] | | | | | | | | +--------+ + + + + documented as of this encounter Procedures + +--------+ + + + | Procedure Name | Priori | Date/Time | Associated Diagnosis | Comments | | | ty | | | | + +--------+ + + + | BASIC METABOLIC | Routin | 11/27/2015 | | Results for this | | PANEL | e | 12:00 AM | | procedure are in the | | | | PST | | results section. | + +--------+ + + + | IRON AND IRON | Routin | 10/20/2015 | | Results for this | | BINDING CAPACITY | e | 12:00 AM | | procedure are in the | | | | PST | | results section. | + +--------+ + + + | HEMOGLOBIN AND | Routin | 10/20/2015 | | Results for this | | HEMATOCRIT | e | 12:00 AM | | procedure are in the | | | | PST | | results section. | + +--------+ + + + | URIC ACID | Routin | 10/20/2015 | | Results for this | | | e | 12:00 AM | | procedure are in the | | | | PST | | results section. | + +--------+ + + + | MAGNESIUM | Routin | 10/20/2015 | | Results for this | | | e | 12:00 AM | | procedure are in the | | | | PST | | results section. | + +--------+ + + + | RENAL FUNCTION PANEL | Routin | 10/20/2015 | | Results for this | | | e | 12:00 AM | | procedure are in the | | | | PST | | results section. | + +--------+ + + + documented in this encounter Results Basic Metabolic Panel (11/27/2015 12:00 AM PST) + + + + + + | Component | Value | Ref Range | Performed | Pathologist | | | | | At | Signature | + + + + + + | Glucose, | 194 (A) | 70 - 100 mg/dL | EXTERNAL | | | Fasting | | | LAB | | + + + + + + | BUN | 16 | 6 - 23 mg/dL | EXTERNAL | | | | | | LAB | | + + + + + + | Creatinine | 2.33 (A) | 0.60 - 1.35 | EXTERNAL | | | | | mg/dL | LAB | | + + + + + + | BUN/Creatin | 6.9 | 6.0 - 28.6 | EXTERNAL | [...] + + + | K | 3.5 (A) | 3.6 - 5.1 | EXTERNAL | | | | | mmol/L | LAB | | + + + + + + | Cl | 99 | 95 - 112 mmol/L | EXTERNAL | | | | | | LAB | | + + + + + + | CO2 | 9 (A) | 19 - 31 mmol/L | EXTERNAL | | | | | | LAB | | + + + + + + | Anion Gap | 30.5 (A) | 7 - 21 mmol/L | [...] | | + +---------+ + + Hemoglobin and Hematocrit (10/20/2015 12:00 AM PST) + + + + + + | Component | Value | Ref Range | Performed | Pathologist | | | | | At | Signature | + + + + + + | Hgb | 10.8 (A) | 12.0 - 16.0 | EXTERNAL | | | | | g/dL | LAB | | + + + + + + | Hematocrit, | 32.8 (A) | 35 - 45 % | EXTERNAL | | | POC | | | LAB | | + + + + + + + + | Specimen | + + | | + + + +---------+ + + | Performing | Address | City/State/Zipcode | Phone Number | | Organization | | | | + +---------+ + + | EXTERNAL LAB | | | | + +---------+ + + Iron and Iron Binding Capacity (10/20/2015 12:00 AM PST) + +-------+ + + + | Component | Value | Ref Range | Performed | Pathologist | | | | | At | Signature | + +-------+ + + + | Iron | 71.31 | 37 - 160 | EXTERNAL | | | | | | LAB | | + +-------+ + + + | Iron | 20.6 | 20 - 55 | EXTERNAL | | | Saturation | | | LAB | | + +-------+ + + + | TIBC | 346 | 245 - 400 | EXTERNAL | [...] | + +---------+ + + Uric Acid (10/20/2015 12:00 AM PST) + +---------+ + + + | Component | Value | Ref Range | Performed | Pathologist | | | | | At | Signature | + +---------+ + + + | Uric Acid | 7.8 (A) | 2.3 - 6.6 | EXTERNAL [...] | | + +---------+ + + Magnesium (10/20/2015 12:00 AM PST) + +-------+ + + + | Component | Value | Ref Range | Performed | Pathologist | | | | | At | Signature | + +-------+ + + + | Magnesium | 1.8 | 1.7 - 2.5 mg/dL | EXTERNAL [...] + +---------+ + + Renal Function Panel (10/20/2015 12:00 AM PST) + + + + + + | Component | Value | Ref Range | Performed | Pathologist | | | | | At | Signature | + + + + + + | Glucose, | 310 (A) | 70 - 100 mg/dL | EXTERNAL | | | Fasting | | | LAB | | + + + + + + | BUN | 18 | 6 - 23 mg/dL | EXTERNAL [...] + + + + | Na | | mmol/L | EXTERNAL | | | | | | LAB | | + + + + + + | K | | mmol/L | EXTERNAL | | | | | | LAB | | + + + + + + | Cl | | mmol/L | EXTERNAL | | | | | | LAB | | + + + + + + | CO2 | | mmol/L | EXTERNAL | | | | | | LAB | | + + + + + + | Anion Gap | | mmol/L | EXTERNAL | | | | | | LAB | | + + + + + + | eGFR if not | | | EXTERNAL | | | | | | LAB | | | MAURITANIAN | | | | | + + + + + + | Phosphorus, | | | EXTERNAL | | | Inorganic | | | LAB | | + + + + + + | BUN/Creatin | 7.7 | 6.0 - 28.6 | EXTERNAL | [...]
--- OUTSIDE RECORDS SUMMARY | ~2019-10-02 | XMS | Encounter Summary ---
Demographics + + + | Address | [address] | | | [place] [address] | + + + | Home Phone | | + + + | Preferred Language | Unknown | + + + | Marital Status | Single | + + + | Restoration Affiliation | 1041 | + + + | Race | Unknown | + + + | Ethnic Group | Unknown | + + + Author + + + | Author | [facility] | | | and [place] | + + + | Organization | [facility] | | | and [place] | + + + | Address | Unknown | + + + | Phone | Unavailable | + + + Support + + + + + | Name | Relationship | Address | Phone | + + + + + | Kyaw Woodson | ECON | [place], [place] | | + + + + + | Barbara Cabrera | ECON | Unknown | | + + + + + | Dimple Hathaway | ECON | Unknown | | + + + + + Care Team Providers + +------+ + | Care Assistant Professor Of Spanish Name | Role | Phone | + +------+ + | Jennyfer Gresham MD | PCP | | + +------+ + Encounter Details +--------+ + + + + | Date | Type | Department | Care Team | Description | +--------+ + + + + | 10/06/ | Orders Only | [facility] | Sara Arvizu, | | | 2012 | | CONVERSION DEP [address] | MD [address] | | | | | [place] | [place], [place] | | | | | [place], [place] | [address] | | | | | [address] | | | | | | [phone] | | | +--------+ + + + [...] [place] | | | | | | [address] | | | | | | | [...] [address] | | | | | | [place] [address] | | | | | | [phone] | | | | | | | | +--------+ + + + + | 11/25/ | Office | Nephrology | Kei Arthur MD | | | 2020 | Visit | | [address] [facility] | | | | | | [address] [place] | | | | | | [address] | | | | | | | | +--------+ + + + + documented as of this encounter Visit Diagnoses Not on filedocumented in this encounter"
--- OUTSIDE RECORDS SUMMARY | ~2019-10-02 | XMS | Encounter Summary ---
Demographics + + + | Address | [address] | | | [place] [address] | + + + | Home Phone | | + + + | Preferred Language | Unknown | + + + | Marital Status | Single | + + + | Voodoo Affiliation | UNK | + + + | Race | White | + + + | Ethnic Group | Not or | + + + Author + + + | Author | [facility] | + + + | Organization | [facility] | + + + | Address | Unknown | + + + | Phone | Unavailable | + + + Support + + +---------+ + | Name | Relationship | Address | Phone | + + +---------+ + | Valentine Qiu | ECON | Unknown | | + + +---------+ + Care Team Providers + +------+ + | Care Jd Edwards Name | Role | Phone | + +------+ + | Ifeanyi Call MD | PCP | | + +------+ + Encounter Details +--------+ + + + + | Date | Type | Department | Care Team | Description | +--------+ + + + + | 12/23/ | Document-Sc | [facility] | Danielito Crockett MD,PhD | | | 2017 | anned | [facility] | [address] | | | | | at [place] [address] | [address] | | | | | [place] | [place], [place] | | | | | Mailcode: [facility] | [address] | | | | | [place] [address] | [phone] | | | | | [phone] | | | +--------+ + + + [...]
--- OUTSIDE RECORDS SUMMARY | ~2019-10-02 | XMS | Encounter Summary ---
Demographics + + + | Address | [address] | | | [place] [address] | + + + | Home Phone [...] + + | Organization | [facility] | | | and [place] | + + + | Address | Unknown | + + + | Phone | Unavailable | + + + Support + + + + + | Name | Relationship | Address | Phone | + + + + + | Kyaw Woodson | ECON | [place], [place] | | + + + + + | Barbara Cabrera | ECON | Unknown | | + + + + + | Dimple Hathaway | ECON | Unknown | | + + + + + Care Team Providers + +------+ + | Care Patient Safety Tech Name | Role | Phone | + [...] | | | [place] [place] | [place], [place] | | | | | [place], [place] | [address] | | | | | [address] | | | | | | [phone] | | | +--------+ + + + [...] [place] | | | | | | [address] | | | | | | | [...] | | | | | | [place] [address] | | | | | | [phone] | | | | | | | | +--------+ + + + + | 11/25/ | Office | Nephrology | Kei Arthur MD | | | 2020 | Visit | | [address] [facility] | | | | | | [address] [place] | | | | | | [address] | | | | | | | | +--------+ + + + + documented as of this encounter Visit Diagnoses Not on filedocumented in this encounter"
--- OUTSIDE RECORDS SUMMARY | ~2019-10-02 | XMS | Encounter Summary ---
Demographics + + + | Address | [address] | | | [place] [address] | + + + | Home Phone [...] Author + + + | Author | [facility] | + + + | Organization | [facility] | + + + | Address | Unknown | + + + | Phone | Unavailable | + + + Support + + +---------+ + | Name | Relationship | Address | Phone | + + +---------+ + | Valentine Qiu | ECON | Unknown | | + + +---------+ + Care Team Providers + +------+ + | Care Data Analysis Manager Name | Role | Phone | [...] | | 2018 | Only | [facility] | [phone] | | | | | [place] | | | | | | [address] | | | +--------+ + + + [...] + +--------+ + + + | URINALYSIS AND | Routin | 09/22/2017 | | Results for this | | MICROSCOPIC | e | 3:00 PM | | procedure are in the | | | | PST | | results section. | + +--------+ + + + documented in this encounter Results URINALYSIS AND MICROSCOPIC (09/22/2017 3:00 PM PST) + + + + + + | Component | Value | Ref Range | Performed | Pathologist | | | | | At | Signature | + + + + + + | URINE | CLEAN CATCH | | [facility] | | | COLLECTION | | [facility] | | + + + + + + | COLOR(UR) | STRAW | | [facility] | | | | [facility] | | + + + + + + | APPEARANCE | HAZY | | [facility] | | | | [facility] | | + + + + + + | SPECIFIC | 1.006 | 1.005 - 1.030 | [facility] | | | GRAVITY | | [facility] | | + + + + + + | PH(UR) | 7 | 5 - 9 | [facility] | | | | | [facility] | | + + + + + + | PROTEIN, UA | NEGATIVE | negative mg/dL | [facility] | [facility] | | + + + + + + | GLUCOSE, UA | NORMAL | NORMAL mg/dL | [facility] | | | | [facility] | | + + + + + + | KETONES, UA | NEGATIVE | negative mg/dL | [facility] | | + + + + + + | BILIRUBIN | NEGATIVE | negative mg/dL | [facility] | | | [facility] | | + + + + + + | BLOOD | TRACE | negative | [facility] | | | | | cells/uL | HOSPITAL | | + + + + + + | NITRITES | NEGATIVE | negative | [facility] | | [facility] | | + + + + + + | UROBILINOGE | NORMAL | NORMAL mg/dL | [facility] | | | N | | | [facility] | | + + + + + + | LEUKOCYTE | 25 (H) | negative | [facility] | | | ESTERASE | | cells/uL | HOSPITAL | | + + + + + + | CASTS | NEGATIVE | 0-1+ Hyaline | [facility] | | | | | /lpf | HOSPITAL | | + + + + + + | LEUKOCYTES | 30 (H) | 0 - 4 /hpf | [facility] | | | (UA DIP) | | | [facility]OS[facility]ITAL | | + + + + + + | RED CELLS | 0 | 0 - 4 /hpf | [facility] | | | | | | [facility] | | + + + + + + | EPITHELIAL | SQUAMOUS 1+ | 0-1+ Squamous | [facility] | | | CELLS | | /lpf | HOSPITAL | | + + + + + + | CRYSTALS | NEGATIVE | 0-1+ /hpf | [facility] | | | | | | [facility] | | + + + + + + | BACTERIA | 1+Comment: Instructions | negative /hpf | [facility] | | | | Received: Copy To: | | HOSPITAL | | | | HERMINIO WILKES M.D. | | | | | | Copy To: [facility] | | | | | | CLINIC Copy To: | | | | | | ADITYA MARTIN D.O. | | | | | | Copy Sent to HERMINIO | | | | | | KATRIN Quevedo on 09/22/17. | | | | | | ASCIMMIYOTTI Copy | | | | | | Sent to [facility] | | | | | | CLINIC on 09/22/17. | | | | | | ASCIMMIYOTTI Copy | | | | | | Sent to ADITYA MARTIN | | | | | | Anna Marie on 09/22/17. | | | | | | [facility] | | | | + + + + + + + + | Specimen | + + | | + + + + + | Narrative | Performed At | + + + | Testing Performed at: JOSH ZENG: [id number] - [address] | [facility] | | [place] [address] | [facility]ITAL | + + + + +---------+ + + | Performing | Address | City/State/Zipcode | Phone Number | | Organization | | | | + +---------+ + + | [facility] | | | [phone] | | [facility] | | | | + +---------+ + + | [facility] | | [place] | [phone] | | HOSPITAL | | | | + +---------+ + + documented in this encounter Visit Diagnoses Not on filedocumented in this encounter"
--- OUTSIDE RECORDS SUMMARY | ~2019-10-02 | XMS | Encounter Summary ---
Demographics + + + | Address | [address] | | | [place] [address] | + + + | Home Phone | | + + + | Preferred Language | Unknown | + + + | Marital Status | Single | + + + | Hindu Affiliation | [id number] | + + + | Race | Unknown | + + + | Ethnic Group | Unknown | + + + Author + + + | Author | [facility] | | | and [place] | + + + | Organization | [facility] | | | and [place] | + + + | Address | Unknown | + + + | Phone | Unavailable | + + + Support + + + + + | Name | Relationship | Address | Phone | + + + + + | Kyaw Woodson | ECON | [place], [place] | | + + + + + | Barbara Cabrera | ECON | Unknown | | + + + + + | Dimple Hathaway | ECON | Unknown | | + + + + + Care Team Providers + +------+ + | Care Agency Cashier Name | Role | Phone | + +------+ + | Daniel Land NP | PCP | | + +------+ + Reason for Visit + + + | Reason | Comments | + + + | Follow-up | Septic Shock | + + + Encounter Details +--------+---------+ + + + | Date | Type | Department | Care Team | Description | +--------+---------+ + + + | 05/15/ | Office | [facility] | Char Veliz | Bacteremia (Primary | | 2019 | Visit | INFECTIOUS DISEASE | Jennifer Giraldo MD | Dx) | | | | [address] | [address] | | | | | [place], [place] | [place] [address] | | | | | [address] | [phone] | | | | | [phone] | | | +--------+---------+ + + + [...] + + + | Blood Pressure | 108/68 | 05/15/2019 3:59 PM | | | | | PDT | | + + + + + | Pulse | 78 | 05/15/2019 3:59 PM | | | | | PDT | | + + + + + | Temperature | 36.8 C (98.2 F) | 05/15/2019 3:59 PM | | | | | PDT | | + + + + + | Respiratory Rate | 16 | 05/15/2019 3:59 PM | | | | | PDT | | + + + + + | Oxygen Saturation | 100% | 05/15/2019 3:59 PM | | | | | PDT | | + + + + + | Inhaled Oxygen | - | - | | | Concentration | | | | + + + + + | Weight | - | - | | + + + + + | Height | - | - | | + + + + + | Body Mass Index | - | - | | + + + + + documented in this encounter Patient Instructions Patient Instructions Char Veliz MD - 05/15/2019 4:00 PM PDTFollow up as needed PICC line removal todayElectronically signed by Char Veliz MD at 4:14 PM PDT documented in this encounter Progress Notes Char Veliz MD - 05/15/2019 4:00 PM PDTFormatting of this note might be d ifferent from the original. [facility] Service: Infectious Diseases Outpatient Follow Up Note CHIEF COMPLAINT Follow up on R BKA; bacteremia Briefly: The patient is a 49 y.o.-year-old female with significant PMH noted below. Patient has mul tiple medical issues including diabetes type 2 on insulin that is complicated by CKD stage I V, coronary artery disease with cardiac stent placement as well as left BKA who was presente d to [facility] due to right lower extremity leg pain and swelling. Patient n oted about 4 weeks ago that there were some blisters that were forming and that her caregive r has been out of town. She hired a caregiver that she states has been dressing her wounds nightly. However, the day of admission when they performed the wound dressing, there was pu rulent drainage, necrotic tissue, redness from the right foot to the knee and very foul odor . EMS was called and she was transferred to ER for further work-up. In the ER, her white blood cell count was notably elevated at 50.9 with a lactic acid of 1. 9 and a potassium of 6.5. She was immediately started on vancomycin and Zosyn but shortly t hereafter developed shock and received 3 L of IV fluids as well as started on low-dose levo fed. She was transferred to [facility] for higher level of care. Patient underwent right above-knee amputation with placement of a wound VAC on April 14. We t gangrene was noted with gross purulence pouring out from the ankle. Cultures ultimately g rew beta-hemolytic group G strep both in the blood and from the wound. She was discharged to complete 14 days total of rocephin. HISTORY OF PRESENT ILLNESS The patient is a 49 y.o.-year-old female presenting today for follow up. She completed roce phin on 04/27, but refused to have the PICC line removed. Her R stump is healing well. PAST MEDICAL HISTORY Patient Active Problem List Diagnosis Left leg pain Essential hypertension, benign Morbid obesity Hx of BKA, left CHF (congestive heart failure) Dyslipidemia Coronary artery disease of [place] artery of [place] heart with stable angina pectoris CKD (chronic kidney disease), stage IV Metabolic acidosis Vitamin D deficiency Persistent proteinuria Anemia of chronic renal failure, stage 4 (severe) Hyperuricemia ICD (implantable cardioverter-defibrillator), single, in situ Iron deficiency Abrasion Type 2 diabetes mellitus with diabetic nephropathy, with long-term current use of insul in Iron deficiency anemia Localized edema Secondary hyperparathyroidism Electrolyte imbalance risk 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 Ischemic cardiomyopathy Sepsis Septic shock Gangrene of extremity Hyperkalemia Lactic acidosis Hyponatremia Group G streptococcal infection Skin ulcer of finger, limited to breakdown of skin Hyperkalemia Chest pain Non-traumatic rhabdomyolysis PAST SURGICAL HISTORY Past Surgical History: Procedure Laterality Date AMPUTATION Right 04/14/2019 Procedure: KNEE - AMPUTATION ABOVE; Surgeon: Derrick Cook MD; Location: [facility]; Ser vice: Vascular; Laterality: Right; Right AKA CHOLECYSTECTOMY FINGER AMPUTATION Left middle finger LEG AMPUTATION BELOW KNEE left OTHER SURGICAL HISTORY left LAPAROTOMY OOPHERECTOMY OTHER SURGICAL HISTORY 2012 CARDIAC PACEMAKER REMOVAL OTHER SURGICAL HISTORY replacement PACEMAKER INSERTION 11/2012 TUBAL LIGATION SOCIAL HISTORY Social History Socioeconomic History Marital status: Single Spouse name: Not on file Number of children: Not on file Years of education: college Highest education level: Not on file Social Needs Financial resource strain: Not on file Food insecurity - worry: Not on file Food insecurity - inability: Not on file Transportation needs - medical: Not on file Transportation needs - non-medical: Not on file Occupational History Not on file Tobacco Use Smoking status: Former Smoker Packs/day: 0.50 Smokeless tobacco: Never Used Substance and Sexual Activity Alcohol use: Not Currently Drug use: Not Currently Comment: Drug use: No Sexual activity: Not on file Other Topics Concern Not on file Social History Narrative Not on file FAM. HISTORY Family History Problem Relation Age of Onset Hypertension Mother Cancer Mother Diabetes, NIDDM Mother Cancer Father Prostate Diabetes, NIDDM Father Diabetes, NIDDM Sister Hypertension Brother MEDICATIONS Current Outpatient Medications: acetaminophen (TYLENOL) 500 mg tablet, Take 500 mg by mouth every 6 (six) hours as nee ded for Pain., Disp: , Rfl: albuterol (PROAIR HFA) 90 mcg/puff inhaler, Inhale 2 puffs into the lungs every 4 (fou r) hours as needed., Disp: 1 Inhaler, Rfl: 3 allopurinol (ZYLOPRIM) 300 mg tablet, Take 1 tablet by mouth daily., Disp: 30 tablet, Rfl: 11 ascorbic acid (VITAMIN C) 1000 MG tablet, Take 1,000 mg by mouth daily., Disp: , Rfl: aspirin 81 mg chewable tablet, Take 81 mg by mouth daily., Disp: , Rfl: azithromycin (ZITHROMAX) 500 MG tablet, Take 1 tablet by mouth daily., Disp: 7 tablet, Rfl: 0 B complex vitamins tablet, Take 1 tablet by mouth daily., Disp: , Rfl: cholecalciferol (CHOLECALCIFEROL) 5000 units TABS, Take 1 tablet by mouth daily., Disp : , Rfl: dexlansoprazole (DEXILANT) [address] capsule, Take 60 mg by mouth every morning before breakfast., Disp: , Rfl: fenofibrate 160 mg tablet, Take 1 tablet by mouth daily., Disp: 90 tablet, Rfl: 3 ferrous sulfate 324 (65 Fe) MG EC tablet, TAKE ONE TABLET BY MOUTH TWICE DAILY WITH ME ALS, Disp: 60 tablet, Rfl: 2 insulin regular U-500 (HUMULIN R U-500 KWIKPEN) 500 units/mL concentrated injection (p en), Inject 0.32 mLs into the skin 3 (three) times daily with meals., Disp: 28 mL, Rfl: 11 metoprolol succinate (TOPROL-XL) 100 mg ER tablet, Take 1 tablet by mouth 2 (two) time s daily., Disp: 180 tablet, Rfl: 3 Multiple Vitamin (MULTIVITAMIN) tablet, Take 1 tablet by mouth daily., Disp: , Rfl: nitroglycerin (NITROSTAT) 0.4 mg SL tablet, DISSOLVE ONE TABLET UNDER THE TONGUE EVERY 5 MINUTES NEEDED FOR CHEST PAIN. DO NOT EXCEED A TOTAL OF 3 DOSES IN 15 MINUTES, Disp: 25 tablet, Rfl: 51 oxyCODONE 10 MG TABS, Take 10 mg by mouth., Disp: , Rfl: potassium chloride (KLOR-CON) 10 mEq CR tablet, 10 mEq daily., Disp: , Rfl: sodium bicarbonate 650 mg tablet, TAKE 2 TABLETS BY MOUTH THREE TIMES DAILY, Disp: 540 tablet, Rfl: 3 torsemide (DEMADEX) 20 mg tablet, TAKE 2 TABLETS BY MOUTH TWICE DAILY, Disp: 360 table t, Rfl: 1 venlafaxine (EFFEXOR XR) 150 mg 24 hr capsule, , Disp: , Rfl: Allergies Allergen Reactions Buprenorphine Hives and Rash Sulfacetamide Hives Sulfamethoxazole-Trimethoprim Hives Demerol [Meperidine] Rash Rash, Patient has tolerated fentanyl in house Latex Other (See Comments) Hives Methadone Other (See Comments) Stomach pains,shaky Sulfa Antibiotics Rash Rash Vicodin [Hydrocodone-Acetaminophen] Rash Rash Ciprofloxacin Nausea And Vomiting REVIEW OF SYSTEMS Negative except for pertinent items noted in HPI. PHYSICAL EXAM Vital Signs: BP 108/68 | Pulse 78 | Temp 36.8 C (98.2 F) (Oral) | Resp 16 | SpO2 100% General Appearance: HEENT: Alert, cooperative, no distress Head normocephalic and atraumatic EEOMI; no scleral icterus Lungs: Clear to auscultation bilaterally, respirations unlabored Heart:: Regular rate and rhythm, S1 and S2 normal, no rub or gallop Neuro: Attends appropriately; no CN deficits Extremities: L BKA with prosthetic device; R AKA stump REVIEW OF LABS: All labs were reviewed. ASSESSMENT AND RECOMMENDATIONS The patient is a 49 y.o.-year-old female with the following problems: Alondra was seen today for follow-up. Diagnoses and all orders for this visit: Bacteremia - DISCONTINUE CENTRAL LINE Continue wound care for R AKA stump Complete 2 weeks of rocephin for strep bacteremia Follow up with ID as needed Thank you for allowing us to participate in this patient's care. A return visit has been re quested/scheduled in PRN for routine clinical follow up. The patient was instructed to call our clinic for any questions, and for any concerns regarding worsening symptoms, including f toño/chills/side effects from medication, especially diarrhea. We will see the patient soon er than the recommended follow up date, if with any worsening of symptoms. Dictation software, [employer] [place], used which may contain error for similar sounding words even af ter review. Personal communication requested for any clarification. Portions of this chart may have been copied from previous notes for continuity of care purp khang Veliz MD Infectious Diseases [facility] [address] [place] [id number] O: F: 05/16/2019 acucciol o, Racheal Olivarez RN - 05/15/2019 4:00 PM PDTPICC Removal Note: S: Received order to d/c picc line from Dr Veliz. O: PICC line removed from antecubital after sterile site prepped per protocol. PICC cathete r tip visualized and intact. PICC line measures 42cm. Pressure dressing applied with 2x2 ga uze and secured with coban. A: No redness, ecchymosis, edema, swelling, or drainage noted at site. P: Instructions provided on post PICC discharge care, including followup notification instr uctions. documented in this encounter Plan of Treatment +--------+ + + + + | Date | Type | Specialty | Care Team | Description | +--------+ + + + + | 10/10/ | Office | Cardiology | Jerry Watts | | | 2019 | Visit | | MD [address] | | | | | | [facility] | | | | | | [place] | | | | | | [address] [...] | | | | | | [place] [address] | | | | | | [phone] | | | | | | | | +--------+ + + + + | 11/25/ | Office | Nephrology | Kei Arthur MD | | | 2019 | Visit | | [address] [facility] | | | | | | [address] [place] | | | | | | [address] | | | | | | | | +--------+ + + + + documented as of this encounter Visit Diagnoses + + | Diagnosis | + + | Bacteremia - Primary | + + documented in this encounter"
--- OUTSIDE RECORDS SUMMARY | ~2019-10-02 | XMS | Encounter Summary ---
Demographics + + + | Address | [address] | | | [place] [address] | + + + | Home Phone [...] + + | Organization | [facility] | | | and [place] | + + + | Address | Unknown | + + + | Phone | Unavailable | + + + Support + + + + + | Name | Relationship | Address | Phone | + + + + + | Kyaw Woodson | ECON | [place], [place] | | + + + + + | Barbara Cabrera | ECON | Unknown | | + + + + + | Dimple Hathaway | ECON | Unknown | | + + + + + Care Team Providers + +------+ + | Care Law Firm Administrator Name | Role | Phone | + +------+ + | No, Physician | PCP | Unavailable | + +------+ + Encounter Details +--------+ + + + + | Date | Type | Department | Care Team | Description | +--------+ + + + + | 05/15/ | Hospital | [facility] | Bryant Lincoln | Other symptoms | | 2013 | Encounter | [facility] | MD Joey [address] | involving | | | | [address] [place] | [facility] | cardiovascular | | | | [place], [place] | [place] [address] | system (Primary Dx); | | | | [address] | [phone] | Other peripheral | | | | [phone] | | vascular | | | | | Alia Marie, | disease(885.33) | | | | | Technologist | ([facility]) | +--------+ + + + + Social [...] + + + +---------+ + + | fenofibrate | Take 1 tablet by | 90 | 3 | 08/20/20 | | | (LOFIBRA) 54 mg | mouth daily. | tablet | | 13 | 4 | | tablet | | | | [...] [place] | | | | | | [address] | | | | | | | [...] | | | | | [place] [address] | | | | | | [phone] | | | | | | | | +--------+ + + + + | 11/25/ | Office | Nephrology | Kei Arthur MD | | | 2019 | Visit | | [address] [facility] | | | | | | [address] [place] | | | | | | [address] | | | | | | | | +--------+ + + + + documented as of this encounter Procedures + +--------+ + + + | Procedure Name | Priori | Date/Time | Associated Diagnosis | Comments | | | ty | | | | + +--------+ + + + | VAS SEGMENTAL | Routin | 05/15/2014 | Other symptoms | Results for this | | PRESSURES LEGS | e | 11:25 AM | involving | procedure are in the | | | | PDT | cardiovascular | results section. | | | | | system Other | | | | | | peripheral vascular | | | | | | disease(443.89) | | | | | | ([facility]) | | + +--------+ + + + documented in this encounter Results VAS Segmental Pressures Legs (05/15/2014 11:25 AM PDT) + + | Specimen | + + | | + + + + + | Narrative | Performed At | + + + | LOWER EXTREMITY SEGMENTAL ARTERIAL EVALUATION: 05/15/2014 10:15 AM | [facility] | | CLINICAL HISTORY: ABSENT PULSES, PVD. HISTORY OF BELOW KNEE | LAB | | AMPUTATION OF THE LEFT LEG. FINDINGS: The arterial supply of both | | | lower extremities is evaluated by Doppler, segmental pressure and | | | pulse volume recording. Segmental pressures are measured and | | | compared to brachial pressures. In the right leg, the lower extremity | | | segmental pressures are higher than brachial pressure at each level. | | | Despite the absence of pulses, ankle-brachial index is normal at | | | 1.1. In the left leg, measurements are only performed in the thigh, | | | which shows a normal thigh-brachial index of 1.22. Doppler | | | waveforms show normal triphasic pattern at each level. Pulse volume | | | waveforms are also within normal limits. IMPRESSION -Despite | | | reported absent pulses, segmental arterial evaluation shows no | | | sonographic evidence of peripheral arterial disease. Dictated and | | | Signed by: Leonard Phan MD Electronically signed: 05/15/2014 5:33 | | | PM | | + + + + + | Procedure Note | + + | Florencio, Rad Results In - 05/15/2014 5:36 PM PDT LOWER EXTREMITY SEGMENTAL ARTERIAL | | EVALUATION: 05/15/2014 10:15 AMCLINICAL HISTORY: ABSENT PULSES, PVD. HISTORY OF BELOW | | KNEE AMPUTATION OF THELEFT LEG.FINDINGS: The arterial supply of both lower extremities | | is evaluated by Doppler,segmental pressure and pulse volume recording.Segmental | | pressures are measured and compared to brachial pressures.In the right leg, the lower | | extremity segmental pressures are higher thanbrachial pressure at each level. Despite | | the absence of pulses, ankle-brachialindex is normal at 1.1. In the left leg, | | measurements are only performed in thethigh, which shows a normal thigh-brachial index | | of 1.22.Doppler waveforms show normal triphasic pattern at each level. Pulse | | volumewaveforms are also within normal limits.IMPRESSION -Despite reported absent | | pulses, segmental arterial evaluation showsno sonographic evidence of peripheral | | arterial disease.Dictated and Signed by: Leonard Phan MD Electronically signed: | | 05/15/2014 5:33 PM | | | |Doppler waveforms show normal triphasic pattern at each level. Pulse volume | |waveforms are also within normal limits. | | | |IMPRESSION -Despite reported absent pulses, segmental arterial evaluation shows | |no sonographic evidence of peripheral arterial disease. | | | |Dictated and Signed by: Leonard Phan MD | | Electronically signed: 05/15/2014 5:33 PM | + + + +---------+ + + | Performing | Address | City/State/Zipcode | Phone Number | | Organization | | | | + +---------+ + + | [facility] | | | [phone] | + +---------+ + + | [facility] | | | [phone] | + +---------+ + + documented in this encounter Visit Diagnoses + + | Diagnosis | + + | Other symptoms involving cardiovascular system - Primary | + + | Other peripheral vascular disease(443.89) Other peripheral vascular disease | + + documented in this encounter"
--- OUTSIDE RECORDS SUMMARY | ~2019-10-02 | XMS | Encounter Summary ---
Demographics + + + | Address | [address] | | | [place] [address] | + + + | Home Phone | | + + + | Preferred Language | Unknown | + + + | Marital Status | Single | + + + | Christianity Affiliation | 1041 | + + + | Race | Unknown | + + + | Ethnic Group | Unknown | + + + Author + + + | Author | [facility] | | | and [place] | + + + | Organization | [facility] | | | and [place] | + + + | Address | Unknown | + + + | Phone | Unavailable | + + + Support + + + + + | Name | Relationship | Address | Phone | + + + + + | Kyaw Woodson | ECON | [place], [place] | | + + + + + | Barbara Cabrera | ECON | Unknown | | + + + + + | Dimple Hathaway | ECON | Unknown | | + + + + + Care Team Providers + +------+ + | Care Medical Support Assistant Name | Role | Phone | + +------+ + | Daniel Land NP | PCP | | + +------+ + Encounter Details +--------+ + + + + | Date | Type | Department | Care Team | Description | +--------+ + + + + | 05/28/ | Orders Only | [facility] | Kei Arthur MD | | | 2016 | | NEPRHOLOGY [place] | [address] | | | | | [address] | [address] [place], [place] | | | | | [address] [place], [place] | [address] | | | | | [address] | | | | | | [phone] | | | +--------+ + + + [...] [address] | | | | | | [facility] | | | | | | [address] [place] | | | | | | [address] | | | | | | | [...] [address] | | | | | | [place] [address] | | | | | | [phone] | | | | | | | | +--------+ + + + + | 11/25/ | Office | Nephrology | Kei Arthur MD | | | 2019 | Visit | | [address] | | | | | | [address] [facility] | | | | | | [address] | | | | | | | | +--------+ + + + + documented as of this encounter Procedures + +--------+ + + + | Procedure Name | Priori | Date/Time | Associated Diagnosis | Comments | | | ty | | | | + +--------+ + + + | EXTERNAL LAB: CBC | Routin | 05/28/2017 | | Results for this | | | e | 10:05 AM | | procedure are in the | | | | PDT | | results section. | + +--------+ + + + | URINALYSIS WITH | Routin | 05/28/2017 | | Results for this | | MICROSCOPIC IF | e | 10:05 AM | | procedure are in the | | INDICATED | | PDT | | results section. | + +--------+ + + + | VITAMIN D, | Routin | 05/28/2017 | | Results for this | | DEFICIENCY SCREEN | e | 10:05 AM | | procedure are in the | | (25-HYDROXY) | | PDT | | results section. | + +--------+ + + + | PROTEIN/CREATININE | Routin | 05/28/2017 | | Results for this | | RATIO, URINE | e | 10:05 AM | | procedure are in the | | | | PDT | | results section. | + +--------+ + + + | URIC ACID | Routin | 05/28/2017 | | Results for this | | | e | 10:05 AM | | procedure are in the | | | | PDT | | results section. | + +--------+ + + + | PARATHYROID HORMONE, | Routin | 05/28/2017 | | Results for this | | INTACT | e | 10:05 AM | | procedure are in the | | | | PDT | | results section. | + +--------+ + + + | MAGNESIUM | Routin | 05/28/2017 | | Results for this | | | e | 10:05 AM | | procedure are in the | | | | PDT | | results section. | + +--------+ + + + | RENAL FUNCTION PANEL | Routin | 05/28/2017 | | Results for this | | | e | 10:05 AM | | procedure are in the | | | | PDT | | results section. | + +--------+ + + + documented in this encounter Results Protein/Creatinine Ratio, Urine (05/28/2017 10:05 AM PDT) + + + + + + | Component | Value | Ref Range | Performed | Pathologist | | | | | At | Signature | + + + + + + | Protein/Cre | 782.3 (A) | 0 - 150 | EXTERNAL [...] + + Vitamin D, Deficiency Screen (25-Hydroxy) (05/28/2017 10:05 AM PDT) + +--------+ + + + | Component | Value | Ref Range | Performed | Pathologist | | | | | At | Signature | + +--------+ + + + | Vit D, | 25 (A) | 30 - 100 | EXTERNAL | [...] + + Urinalysis with Microscopic if Indicated (05/28/2017 10:05 AM PDT) + + + [...] + + + + | Blood, | Comment: Trace | | EXTERNAL | | | Urine [...] At | + + + | Bacteria: 4+ | EXTERNAL LAB | + + + + +---------+ + + | Performing | Address | City/State/Zipcode | Phone Number | | Organization | | | | + +---------+ + + | EXTERNAL LAB | | | | + +---------+ + + External Lab: CBC (05/28/2017 10:05 AM PDT) + + + + + + | Component | Value | Ref Range | Performed | Pathologist | | | | | At | Signature | + + + + + + | WBC | 10.6 | 4.5 - 11.0 10 | EXTERNAL | | | | | | LAB | | + + + + + + | RED CELL | 3.21 (A) | 3.8 - 5.1 10 | EXTERNAL | | | COUNT | | | LAB | | + + + + + + | Hgb | 9.8 (A) | 12.0 - 16.0 | EXTERNAL | | | | | g/dL | LAB | | + + + + + + | Hematocrit, | 28.8 (A) | 35 - 45 % | [...] + + + + | Platelet | 277 | 140 - 440 K/ L | EXTERNAL | | | Count | | | LAB | | | Plasma | | | | | + + + + + + | RDW-CV | 13.9 | 10.5 - 15.0 % | EXTERNAL [...] | + +---------+ + + Uric Acid (05/28/2017 10:05 AM PDT) + +---------+ + + + | Component | Value | Ref Range | Performed | Pathologist | | | | | At | Signature | + +---------+ + + + | Uric Acid | 8.2 (A) | 2.3 - 6.6 | EXTERNAL [...] + +---------+ + + Parathyroid Hormone, Intact (05/28/2017 10:05 AM PDT) + + + + + + | Component | Value | Ref Range | Performed | Pathologist | | | | | At | Signature | + + + + + + | PTH INTACT | 229.0 (A) | 15 - 65 pg/mL | [...] | | + +---------+ + + Magnesium (05/28/2017 10:05 AM PDT) + +-------+ + + + [...] + +---------+ + + Renal Function Panel (05/28/2017 10:05 AM PDT) + + + + + + | Component | Value | Ref Range | Performed | Pathologist | | | | | At | Signature | + + + + + + | Glucose, | 208 (A) | 70 - 100 mg/dL | EXTERNAL | | | Fasting | | | LAB | | + + + + + + | BUN | 44 (A) | 6 - 23 mg/dL | EXTERNAL | | | | | | LAB | | + + + + + + | Creatinine | 2.71 (A) | 0.60 - 1.35 | EXTERNAL | | | | | mg/dL | LAB | | + + + + + + | PHOSPHORUS | | mg/dL | EXTERNAL | | | | | | LAB | | + + + + + + | Albumin | 4.0 | 3.5 - 5.0 | EXTERNAL | | | | | | LAB | | + + + + + + | Na | 137 | 132 - 143 | EXTERNAL | | | | | mmol/L | LAB | | + + + + + + | K | 4.8 | 3.6 - 5.1 | EXTERNAL | [...] + + + | Anion Gap | 20.8 | 7 - 21 mmol/L | EXTERNAL | | | | | | LAB | | + + + + + + | eGFR if not | | | EXTERNAL | | | | | | LAB | | | CONGOLESE | | | | | + + + + + + | Phosphorus, | 4.1 | 2.5 - 5.0 | EXTERNAL | | | Inorganic | | | LAB | | + + + + + + | BUN/Creatin | 16.2 | 6.0 - 28.6 | EXTERNAL | | | ine Ratio | | | LAB | | + + + + + + | Calcium | 9.5 | 8.4 - 10.2 | EXTERNAL | | | | | mg/dL | LAB | | + + + + + + | Estimated | 19 | mg/dL | EXTERNAL | | | [...]
--- OUTSIDE RECORDS SUMMARY | ~2019-10-02 | XMS | Encounter Summary ---
Demographics + + + | Address | [address] | | | [place] [address] | + + + | Home Phone | | + + + | Preferred Language | Unknown | + + + | Marital Status | Single | + + + | Sabianist Affiliation | 1041 | + + + | Race | Unknown | + + + | Ethnic Group | Unknown | + + + Author + + + | Author | [facility] | | | and [place] | + + + | Organization | [facility] | | | and [place] | + + + | Address | Unknown | + + + | Phone | Unavailable | + + + Support + + + + + | Name | Relationship | Address | Phone | + + + + + | Kyaw Woodson | ECON | [place], [place] | | + + + + + | Barbara Cabrera | ECON | Unknown | | + + + + + | Dimple Hathaway | ECON | Unknown | | + + + + + Care Team Providers + +------+ + | Care Wirer Helper Name | Role | Phone | + +------+ + | Daniel Land NP | PCP | | + +------+ + Encounter Details +--------+ + + + + | Date | Type | Department | Care Team | Description | +--------+ + + + + | 05/04/ | Orders Only | [facility] | Kei Arthur MD | Ischemic | | 2019 | | NEPRHOLOGY [place] | [address] | cardiomyopathy; | | | | [address] | [address] [place], [place] | Other specified | | | | [address] [place], [place] | [address] | personal risk | | | | [address] | | factors, not | | | | [phone] | | elsewhere | | | | | | classified; | | | | | | Secondary | | | | | | hyperparathyroidism | | | | | | of renal origin | | | | | | (HCC); Localized | | | | | | edema; Iron | | | | | | deficiency anemia; | | | | | | Hyperuricemia | | | | | | without signs of | | | | | | inflammatory | | | | | | arthritis and | | | | | | tophaceous disease; | | | | | | Persistent | | | | | | proteinuria; Chronic | | | | | | kidney disease, | | | | | | stage IV (severe) | | | | | | (HCC); Essential | | | | | | (primary) | | | | | | hypertension; | | | | | | Bacteremia | +--------+ + + + + Social [...] [address] | | | | | | [facility] | | | | | | [address] | | | | | | [address] | | | | | | | [...] [address] | | | | | | [place] [address] | | | | | | [phone] | | | | | | | | +--------+ + + + + | 11/25/ | Office | Nephrology | Kei Arthur MD | | | 2019 | Visit | | [address] [facility] [address] | | | | | | [address] [place] | | | | | | [address] | | | | | | | | +--------+ + + + + + +------+--------+ + + | Name | Type | Priori | Associated Diagnoses | Order Schedule | | | | ty | | | + +------+--------+ + + | Renal Function Panel | Lab | Routin | Ischemic | Expected: | | | | e | cardiomyopathy | 09/04/2018, Expires: | | | | | Other specified | 07/31/2019 | | | | | personal risk | | | | | | factors, not | | | | | | elsewhere classified | | | | | | Secondary | | | | | | hyperparathyroidism | | | | | | of renal origin | | | | | | (HCC) Localized | | | | | | edema Iron | | | | | | deficiency anemia | | | | | | Hyperuricemia | | | | | | without signs of | | | | | | inflammatory | | | | | | arthritis and | | | | | | tophaceous disease | | | | | | Persistent | | | | | | proteinuria Chronic | | | | | | kidney disease, | | | | | | stage IV (severe) | | | | | | (HCC) Essential | | | | | | (primary) | | | | | | hypertension | | + +------+--------+ + + | Renal Function Panel | Lab | Routin | Ischemic | Expected: | | | | e | cardiomyopathy | 03/14/2019, Expires: | | | | | Other specified | 07/31/2020 | | | | | personal risk | | | | | | factors, not | | | | | | elsewhere classified | | | | | | Secondary | | | | | | hyperparathyroidism | | | | | | of renal origin | | | | | | (HCC) Localized | | | | | | edema Iron | | | | | | deficiency anemia | | | | | | Hyperuricemia | | | | | | without signs of | | | | | | inflammatory | | | | | | arthritis and | | | | | | tophaceous disease | | | | | | Persistent | | | | | | proteinuria Chronic | | | | | | kidney disease, | | | | | | stage IV (severe) | | | | | | (HCC) Essential | | | | | | (primary) | | | | | | hypertension | | + +------+--------+ + + | Magnesium | Lab | Routin | Ischemic | Expected: | | | | e | cardiomyopathy | 03/14/2019, Expires: | | | | | Other specified | 07/31/2020 | | | | | personal risk | | | | | | factors, not | | | | | | elsewhere classified | | | | | | Secondary | | | | | | hyperparathyroidism | | | | | | of renal origin | | | | | | (HCC) Localized | | | | | | edema Iron | | | | | | deficiency anemia | | | | | | Hyperuricemia | | | | | | without signs of | | | | | | inflammatory | | | | | | arthritis and | | | | | | tophaceous disease | | | | | | Persistent | | | | | | proteinuria Chronic | | | | | | kidney disease, | | | | | | stage IV (severe) | | | | | | (HCC) Essential | | | | | | (primary) | | | | | | hypertension | | + +------+--------+ + + | CBC with Manual | Lab | Routin | Ischemic | Expected: | | Differential | | e | cardiomyopathy | 03/14/2019, Expires: | | | | | Other specified | 07/31/2020 | | | | | personal risk | | | | | | factors, not | | | | | | elsewhere classified | | | | | | Secondary | | | | | | hyperparathyroidism | | | | | | of renal origin | | | | | | (HCC) Localized | | | | | | edema Iron | | | | | | deficiency anemia | | | | | | Hyperuricemia | | | | | | without signs of | | | | | | inflammatory | | | | | | arthritis and | | | | | | tophaceous disease | | | | | | Persistent | | | | | | proteinuria Chronic | | | | | | kidney disease, | | | | | | stage IV (severe) | | | | | | (HCC) Essential | | | | | | (primary) | | | | | | hypertension | | + +------+--------+ + + | Parathyroid Hormone, | Lab | Routin | Ischemic | Expected: | | Intact | | e | cardiomyopathy | 03/14/2019, Expires: | | | | | Other specified | 07/31/2020 | | | | | personal risk | | | | | | factors, not | | | | | | elsewhere classified | | | | | | Secondary | | | | | | hyperparathyroidism | | | | | | of renal origin | | | | | | (HCC) Localized | | | | | | edema Iron | | | | | | deficiency anemia | | | | | | Hyperuricemia | | | | | | without signs of | | | | | | inflammatory | | | | | | arthritis and | | | | | | tophaceous disease | | | | | | Persistent | | | | | | proteinuria Chronic | | | | | | kidney disease, | | | | | | stage IV (severe) | | | | | | (HCC) Essential | | | | | | (primary) | | | | | | hypertension | | + +------+--------+ + + | Urinalysis with | Lab | Routin | Ischemic | Expected: | | Microscopic if | | e | cardiomyopathy | 03/14/2019, Expires: | | Indicated | | | Other specified | 07/31/2020 | | | | | personal risk | | | | | | factors, not | | | | | | elsewhere classified | | | | | | Secondary | | | | | | hyperparathyroidism | | | | | | of renal origin | | | | | | (HCC) Localized | | | | | | edema Iron | | | | | | deficiency anemia | | | | | | Hyperuricemia | | | | | | without signs of | | | | | | inflammatory | | | | | | arthritis and | | | | | | tophaceous disease | | | | | | Persistent | | | | | | proteinuria Chronic | | | | | | kidney disease, | | | | | | stage IV (severe) | | | | | | (HCC) Essential | | | | | | (primary) | | | | | | hypertension | | + +------+--------+ + + | Protein/Creatinine | Lab | Routin | Ischemic | Expected: | | Ratio, Urine | | e | cardiomyopathy | 03/14/2019, Expires: | | | | | Other specified | 07/31/2020 | | | | | personal risk | | | | | | factors, not | | | | | | elsewhere classified | | | | | | Secondary | | | | | | hyperparathyroidism | | | | | | of renal origin | | | | | | (HCC) Localized | | | | | | edema Iron | | | | | | deficiency anemia | | | | | | Hyperuricemia | | | | | | without signs of | | | | | | inflammatory | | | | | | arthritis and | | | | | | tophaceous disease | | | | | | Persistent | | | | | | proteinuria Chronic | | | | | | kidney disease, | | | | | | stage IV (severe) | | | | | | (HCC) Essential | | | | | | (primary) | | | | | | hypertension | | + +------+--------+ + + | Creatinine | Lab | Routin | Ischemic | Expected: | | Clearance, Test | | e | cardiomyopathy | 03/14/2019, Expires: | | | | | Other specified | 07/31/2020 | | | | | personal risk | | | | | | factors, not | | | | | | elsewhere classified | | | | | | Secondary | | | | | | hyperparathyroidism | | | | | | of renal origin | | | | | | (HCC) Localized | | | | | | edema Iron | | | | | | deficiency anemia | | | | | | Hyperuricemia | | | | | | without signs of | | | | | | inflammatory | | | | | | arthritis and | | | | | | tophaceous disease | | | | | | Persistent | | | | | | proteinuria Chronic | | | | | | kidney disease, | | | | | | stage IV (severe) | | | | | | (HCC) Essential | | | | | | (primary) | | | | | | hypertension | | + +------+--------+ + + | CBC with | Lab | Routin | Bacteremia | Expected: | | Differential | | e | | 04/30/2019, Expires: | | | | | | 04/30/2020 | + +------+--------+ + + | Comprehensive | Lab | Routin | Bacteremia | Expected: | | Metabolic Panel | | e | | 04/30/2019, Expires: | | | | | | 04/30/2020 | + +------+--------+ + + documented as of this encounter Visit Diagnoses + + | Diagnosis | + + | Ischemic cardiomyopathy Other specified forms of chronic ischemic heart disease | + + | Other specified personal risk factors, not elsewhere classified | + + | Secondary hyperparathyroidism of renal origin (HCC) Secondary hyperparathyroidism (of | | renal origin) | + + | Localized edema Edema | + + | Iron deficiency anemia Iron deficiency anemia, unspecified | + + | Hyperuricemia without signs of inflammatory arthritis and tophaceous disease Other | | abnormal blood chemistry | + + | Persistent proteinuria Proteinuria | + + | Chronic kidney disease, stage IV (severe) (HCC) Chronic kidney disease, Stage IV | | (severe) | + + | Essential (primary) hypertension Unspecified essential hypertension | + + | Bacteremia | + + documented in this encounter"
--- OUTSIDE RECORDS SUMMARY | ~2019-10-02 | XMS | Encounter Summary ---
Demographics + + + | Address | [address] | | | [place] [address] | + + + | Home Phone | | + + + | Preferred Language | Unknown | + + + | Marital Status | Single | + + + | Congregational Affiliation | 1041 | + + + | Race | Unknown | + + + | Ethnic Group | Unknown | + + + Author + + + | Author | [facility] | | | and [place] | + + + | Organization | [facility] | | | and [place] | + + + | Address | Unknown | + + + | Phone | Unavailable | + + + Support + + + + + | Name | Relationship | Address | Phone | + + + + + | Kyaw Woodson | ECON | [place], [place] | | + + + + + | Barbara Cabrera | ECON | Unknown | | + + + + + | Dimple Hathaway | ECON | Unknown | | + + + + + Care Team Providers + +------+ + | Care Algorithm Design Engineer Name | Role | Phone | + +------+ + | Daniel Land NP | PCP | | + +------+ + Encounter Details +--------+ + + + + | Date | Type | Department | Care Team | Description | +--------+ + + + + | 08/27/ | Orders Only | [facility] | Kei Arthur MD | | | 2014 | | NEPRHOLOGY [place] | [address] | | | | | [address] | [address] [place], [place] | | | | | [address] [place], [place] | [address] | | | | | [address] | | | | | | [phone] | | | +--------+ + + + [...] [address] | | | | | | [facility] | | | | | | [place] | | | | | | [address] | | | | | | | [...] [address] | | | | | | [place] [address] | | | | | | [phone] | | | | | | | | +--------+ + + + + | 11/25/ | Office | Nephrology | Kei Arthur MD | | | 2019 | Visit | | [address] | | | | | | [address] [facility] | | | | | | [address] | | | | | | | [...]
--- OUTSIDE RECORDS SUMMARY | ~2019-10-02 | XMS | Encounter Summary ---
Demographics + + + | Address | [address] | | | [place] [address] | + + + | Home Phone | | + + + | Preferred Language | Unknown | + + + | Marital Status | Single | + + + | Hinduism Affiliation | UNK | + + + | Race | White | + + + | Ethnic Group | Not or | + + + Author + + + | Author | [facility] | + + + | Organization | [facility] | + + + | Address | Unknown | + + + | Phone | Unavailable | + + + Support + + +---------+ + | Name | Relationship | Address | Phone | + + +---------+ + | Valentine Qiu | ECON | Unknown | | + + +---------+ + Care Team Providers + +------+ + | Care Interactive Art Director Name | Role | Phone | + +------+ + | Ifeanyi Call MD | PCP | | + +------+ + Encounter Details +--------+ + + + + | Date | Type | Department | Care Team | Description | +--------+ + + + + | 09/29/ | Document-Sc | [facility] | Danielito Crockett MD,PhD | | | 2018 | anned | [facility] | [address] | | | | [address] [place] [address] | [address] | | | | | [facility] | [place], [place] | | | | | Mailcode: [facility] | [address] | | | | | [place] [address] | [phone] | | | | | [phone] | | | +--------+ + + + [...]
--- OUTSIDE RECORDS SUMMARY | ~2019-10-02 | XMS | Encounter Summary ---
Demographics + + + | Address | [address] | | | [place] [address] | + + + | Home Phone | | + + + | Preferred Language | Unknown | + + + | Marital Status | Single | + + + | Lutheran Affiliation | UNK | + + + | Race | White | + + + | Ethnic Group | Not or | + + + Author + + + | Author | [facility] | + + + | Organization | [facility] | + + + | Address | Unknown | + + + | Phone | Unavailable | + + + Support + + +---------+ + | Name | Relationship | Address | Phone | + + +---------+ + | Valentine Qiu | ECON | Unknown | | + + +---------+ + Care Team Providers + +------+ + | Care Fountain Attendant Name | Role | Phone | + +------+ + | Ifeanyi Call MD | PCP | | + +------+ + Encounter Details +--------+ + + + + | Date | Type | Department | Care Team | Description | +--------+ + + + + | 03/26/ | Pattern And Chain Maker | [facility] | Danielito Crockett MD,PhD | Macular dystrophy | | 2016 | | [facility] | [address] | (Primary Dx) | | | | at [facility] [address] | [address] | | | | | [facility] | [place], [place] | | | | | Mailcode: [facility] | [address] | | | | | [place] [address] | [phone] | | | | | [phone] | | | +--------+ + + + [...]
--- OUTSIDE RECORDS SUMMARY | ~2019-10-02 | XMS | Encounter Summary ---
Demographics + + + | Address | [address] | | | [place] [address] | + + + | Home Phone | | + + + | Preferred Language | Unknown | + + + | Marital Status | Single | + + + | Congregational Affiliation | 1041 | + + + | Race | Unknown | + + + | Ethnic Group | Unknown | + + + Author + + + | Author | [facility] | | | and [place] | + + + | Organization | and [facility] | | | and [place] | + + + | Address | Unknown | + + + | Phone | Unavailable | + + + Support + + + + + | Name | Relationship | Address | Phone | + + + + + | Kyaw Woodson | ECON | [place], [place] | | + + + + + | Barbara Cabrera | ECON | Unknown | | + + + + + | Dimple Hathaway | ECON | Unknown | | + + + + + Care Team Providers + +------+ + | Care Certified Fraud Examiner Name | Role | Phone | + +------+ + | Jennyfer Gresham MD | PCP | | + +------+ + Encounter Details +--------+ + + + + | Date | Type | Department | Care Team | Description | +--------+ + + + + | 04/02/ | Orders Only | [facility] | Kei Arthur MD | | | 2019 | | NEPRHOLOGY [place] | [address] | | | | | [address] | [address] [place], [place] | | | | | [address] [place], [place] | [address] | | | | | [address] | | | | | | [phone] | | | +--------+ + + + [...] [address] | | | | | | [facility] | | | | | | [address] | | | | | | [address] | | | | | | | [...] [address] | | | | | | [place] [address] | | | | | | [phone] | | | | | | | | +--------+ + + + + | 11/25/ | Office | Nephrology | Kei Arthur MD | | | 2019 | Visit | | [address] | | | | | | [address] [place] | | | | | | [address] | | | | | | | | +--------+ + + + + documented as of this encounter Visit Diagnoses Not on filedocumented in this encounter"
--- OUTSIDE RECORDS SUMMARY | ~2019-10-02 | XMS | Encounter Summary ---
Demographics + + + | Address | [address] | | | [place] [address] | + + + | Home Phone | | + + + | Preferred Language | Unknown | + + + | Marital Status | Single | + + + | Presybeterian Affiliation | UNK | + + + | Race | White | + + + | Ethnic Group | Not or | + + + Author + + + | Author | [facility] | + + + | Organization | [facility] | + + + | Address | Unknown | + + + | Phone | Unavailable | + + + Support + + +---------+ + | Name | Relationship | Address | Phone | + + +---------+ + | Valentine Qiu | ECON | Unknown | | + + +---------+ + Care Team Providers + +------+ + | Care Servicenow Administrator Name | Role | Phone | + +------+ + | Ifeanyi Call MD | PCP | | + +------+ + Reason for Visit + + + | Reason | Comments | + + + | Fundus photography | OU | + + + | Fluorescein | OU, patient has difficult veins due to IV drug. was able to | | | get vein on right hand. | + + + | Autofluorescence | OU | + + + Encounter Details +--------+ + + + + | Date | Type | Department | Care Team | Description | +--------+ + + + + | 12/23/ | Diagnostic | [facility] | | Fundus photography | | 2017 | Visit | [place] | | (OU); Fluorescein | | | | Photography at | | (OU, patient has | | | | [place] [address] | | difficult veins due | | | | [place] | | to IV drug. was | | | | Mailcode: CEI | | able to get vein on | | | | [place] [address] | | right hand. ); | | | | [phone] | | Autofluorescence | | | | | | (OU) | +--------+ + + + + Social [...] + documented as of this encounter Progress Kristyn Alejandra - 12/23/2016 2:45 PM PDTThe interpretation for the following study: Fundus photography - OU Fluorescein - OU, patient has difficult veins due to IV drug. was able to get vein on right hand. Autofluorescence - OU can be found on physician encounter on 12/23/2016. documented in this encounter Plan of Treatment Not on filedocumented as of this encounter Visit Diagnoses + + | Diagnosis | + + | Macular dystrophy Hereditary retinal dystrophy, unspecified | + + | Maculopathy Unspecified retinal disorder | + + documented in this encounter"
--- OUTSIDE RECORDS SUMMARY | ~2019-10-02 | XMS | Encounter Summary ---
Demographics + + + | Address | [address] | | | [place] [address] | + + + | Home Phone | | + + + | Preferred Language | Unknown | + + + | Marital Status | Single | + + + | Latter Day Affiliation | 1041 | + + + | Race | Unknown | + + + | Ethnic Group | Unknown | + + + Author + + + | Author | [facility] | | | and [place] | + + + | Organization | [facility] | | | and [place] | + + + | Address | Unknown | + + + | Phone | Unavailable | + + + Support + + + + + | Name | Relationship | Address | Phone | + + + + + | Kyaw Woodson | ECON | [place], [place] | | + + + + + | Barbara Cabrera | ECON | Unknown | | + + + + + | Dimple Hathaway | ECON | Unknown | | + + + + + Care Team Providers + +------+ + | Care Catcher Filter Tip Name | Role | Phone | + +------+ + | Daniel Land NP | PCP | | + +------+ + Encounter Details +--------+ + + + + | Date | Type | Department | Care Team | Description | +--------+ + + + + | 09/04/ | Orders Only | [facility] | Kei Arthur MD | | | 2014 | | NEPRHOLOGY [place] | [address] | | | | | [address] | [address] [place], [place] | | | | | [address] [place], [place] | [address] | | | | | [address] | | | | | | [phone] | | | +--------+ + + + [...] [address] | | | | | | [facility] | | | | | | [place] | | | | | | [address] | | | | | | | [...] 206 | | | | | | [place] [address] | | | | | | [phone] | | | | | | | | +--------+ + + + + | 11/25/ | Office | Nephrology | Kei Arthur MD | | | 2019 | Visit | | [address] | | | | | | [address] [facility] | | | | | | [address] | | | | | | | | +--------+ + + + + documented as of this encounter Procedures + +--------+ + + + | Procedure Name | Priori | Date/Time | Associated Diagnosis | Comments | | | ty | | | | + +--------+ + + + | BASIC METABOLIC | Routin | 09/04/2015 | | Results for this | | PANEL | e | 12:00 AM | | procedure are in the | | | | PST | | results section. | + +--------+ + + + documented in this encounter Results Basic Metabolic Panel (09/04/2015 12:00 AM PST) + + + + + + | Component | Value | Ref Range | Performed | Pathologist | | | | | At | Signature | + + + + + + | Glucose, | 220 (A) | 70 - 100 mg/dL | EXTERNAL | | | Fasting | | | LAB | | + + + + + + | BUN | 25 (A) | 6 - 23 mg/dL | EXTERNAL | | | | | | LAB | | + + + + + + | Creatinine | 2.38 (A) | 0.6 - 1.35 | EXTERNAL | | | | | mg/dL | LAB | | + + + + + + | BUN/Creatin | 10.5 | 6.0 - 28.6 | EXTERNAL | | | ine Ratio | | | LAB | | + + + + + + | Calcium | 9.2 | 8.4 - 10.2 | EXTERNAL | | | | | mg/dL | LAB | | + + + + + + | Na | 133 | 132 - 143 | EXTERNAL | [...] + + + | Anion Gap | 18.0 | 7 - 21 mmol/L | EXTERNAL | | | | | | LAB | | + + + + + + | Estimated | 22 (A) | 60 - 140 mg/dL | [...]
--- OUTSIDE RECORDS SUMMARY | ~2019-10-02 | XMS | Encounter Summary ---
Demographics + + + | Address | [address] | | | [place] [address] | + + + | Home Phone | | + + + | Preferred Language | Unknown | + + + | Marital Status | Single | + + + | Adventism Affiliation | 1041 | + + + | Race | Unknown | + + + | Ethnic Group | Unknown | + + + Author + + + | Author | [facility] | | | and [place] | + + + | Organization | [facility] | | | and [place] | + + + | Address | Unknown | + + + | Phone | Unavailable | + + + Support + + + + + | Name | Relationship | Address | Phone | + + + + + | Kyaw Woodson | ECON | [place], [place] | | + + + + + | Barbara Cabrera | ECON | Unknown | | + + + + + | Dimple Hathaway | ECON | Unknown | | + + + + + Care Team Providers + +------+ + | Care Fuse Maker Name | Role | Phone | [...] | | | | | congestive | [place], [place] | [place], | | | | | heart | [address] | [place] [address] | | | | | failure | Phone: | Phone: | | | | | (HCC) | [phone] | [phone] | | | | | Ischemic | Fax: | Fax: | | | | | cardiomyopat | [phone] | [phone] | | | | | hy | | | + + + + + + + Encounter Details +--------+---------+ + + + | Date | Type | Department | Care Team | Description | +--------+---------+ + + + | 08/22/ | Office | [facility] | Jerry Moreno | Ischemic | | 2019 | Visit | CARDIOLOGY [place] | MD [address] | cardiomyopathy | | | | [address] | [facility] | (Primary Dx); Status | | | | [place], [place] | [place], [place] | post internal | | | | [address] | [address] | cardiac | | | | [phone] | | defibrillator | | | | [...] cardiomyopathy. A subcutaneous ICD was implanted in [place] in 2012. She has been unable t o return to [place] for follow-up and has been following with cardiology in [place]. She was referred to electrophysiology as she believes her subcutaneous ICD is approaching the elect jarad replacement indicator. She does not currently have remote monitoring. She has had hosp italizations for infections earlier in the year and underwent an mabda-yhz-ysii amputation. She also reports she had issues [...] AMPUTATION ABOVE; Surgeon: Derrick Cook MD; Location: [facility] MAIN OR; [facility] vice: Vascular; Laterality: Right; Right AKA CARDIAC [...] subcutaneous ICD in 2012. No pacing or RIP/MOULD OPERATOR indication is currently noted. She continues to [...] [address] | | | | | | [facility] | | | | | | [place], [place] | | | | | | [address] | | | | | | | [...] 206 | | | | | | [place] [address] | | | | | | [phone] | | | | | | | | +--------+ + + + + | 11/25/ | Office | Nephrology | Kei Arthur MD | | | 2019 | Visit | | [address] [facility] | | | | | | [address] [place] | | | | | | [address] | | | | | | | [...] | | | | | by [employer] [place] Read Only, | | | | | | [employer] [place] ([id number]), | | | | | | editor news Pop Hess | | | | | | (481) on 08/22/2019 | | | | | [...]
--- OUTSIDE RECORDS SUMMARY | ~2019-10-02 | XMS | Encounter Summary ---
Demographics + + + | Address | [address] | | | [place] [address] | + + + | Home Phone [...] + | Organization | [facility] | | | and [place] | + + + | Address | Unknown | + + + | Phone | Unavailable | + + + Support + + + + + | Name | Relationship | Address | Phone | + + + + + | Kyaw Woodson | ECON | [place], [place] | | + + + + + | Barbara Cabrera | ECON | Unknown | | + + + + + | Dimple Hathaway | ECON | Unknown | | + + + + + Care Team Providers + +------+ + | Care Fisheries Manager Name | Role | Phone | + +------+ + PCP | Unavailable | + +------+ + Encounter Details +--------+ + + + + | Date | Type | Department | Care Team | Description | +--------+ + + + + | 03/01/ | Hospital | [facility] [place] [facility] | Wing Padmini Rubin MD | Pain in joint, | | 1993 | Encounter | CONVERSION [address] | [address] | forearm | | | | [place] | [place], [place] | | | | | [place], [place] | [address] | | | | | [address] | [phone] | | | | | [phone] | | | +--------+ + + + [...] | | | | | [address] [facility] | | | | | | [place] | | | | | | [address] | | | | | | | [...] | | | | | [place] [address] | | | | | | [phone] | | | | | | | | +--------+ + + + + | 11/25/ | Office | Nephrology | Kei Arthur MD | | | 2019 | Visit | | [address] [facility] [address] | | | | | | [address] [place] | | | | | | [address] | | | | | | | | +--------+ + + + + documented as of this encounter Visit Diagnoses + + | Diagnosis | + + | Pain in joint, forearm | + + documented in this encounter"
--- OUTSIDE RECORDS SUMMARY | ~2019-10-02 | XMS | Encounter Summary ---
Demographics + + + | Address | [address] | | | [place] [address] | + + + | Home Phone [...] Organization | [facility] | | | and [place] | + + + | Address | Unknown | + + + | Phone | Unavailable | + + + Support + + + + + | Name | Relationship | Address | Phone | + + + + + | Kyaw Woodson | ECON | [place], [place] | | + + + + + | Barbara Cabrera | ECON | Unknown | | + + + + + | Dimple Hathaway | ECON | Unknown | | + + + + + Care Team Providers + +------+ + | Care Manuscripts Archivist Name | Role | Phone | + +------+ + | Daniel Land NP | PCP | | + +------+ + Encounter Details +--------+ + + + + | Date | Type | Department | Care Team | Description | +--------+ + + + + | 07/27/ | Orders Only | [facility] | Conversion | | | 2018 | | NEPRHOLOGY [place] | Transaction, | | | | | [address] | Provider Unknown | | | | | [address] [place] | [phone] | | | | | [address] | | | | | | [phone] | | | +--------+ + + + [...] | | | | | [address] [facility] | | | | | | [place] | | | | | | [address] | | | | | | | [...] | | | | | [place] [address] | | | | | | [phone] | | | | | | | | +--------+ + + + + | 11/25/ | Office | Nephrology | Kei Arthur MD | | | 2019 | Visit | | [address] [facility] | | | | | | [address] [place] | | | | | | [address] | | | | | | | | +--------+ + + + + documented as of this encounter Procedures + +--------+ + + + | Procedure Name | Priori | Date/Time | Associated Diagnosis | Comments | | | ty | | | | + +--------+ + + + | CULTURE, URINE | Routin | 07/27/2018 | | Results for this | | | e | 12:00 AM | | procedure are in the | | | | PST | | results section. | + +--------+ + + + documented in this encounter Results Culture, Urine (07/27/2018 12:00 AM PST) + + | Specimen | + + | Urine specimen | | (specimen) | + + + + + | Narrative | Performed At | + + + | Specimen Description urine CULTURE | EXTERNAL LAB | | REPORT STATUS | | | final | | | | | + + + + +---------+ + + | Performing | Address | City/State/Zipcode | Phone Number | | Organization | | | | + +---------+ + + | EXTERNAL LAB | | | | + +---------+ + + documented in this encounter Visit Diagnoses Not on filedocumented in this encounter"
--- OUTSIDE RECORDS SUMMARY | ~2019-10-02 | XMS | Encounter Summary ---
Demographics + + + | Address | [address] | | | [place] [address] | + + + | Home Phone [...] Organization | [facility] | | | and [place] | + + + | Address | Unknown | + + + | Phone | Unavailable | + + + Support + + + + + | Name | Relationship | Address | Phone | + + + + + | Kyaw Woodson | ECON | [place], [place] | | + + + + + | Barbara Cabrera | ECON | Unknown | | + + + + + | Dimple Hathaway | ECON | Unknown | | + + + + + Care Team Providers + +------+ + | Care Waistband Setter Name | Role | Phone | + +------+ + | Jennyfer Gresham MD | PCP | | + +------+ + Encounter Details +--------+ + + + + | Date | Type | Department | Care Team | Description | +--------+ + + + + | 08/22/ | Orders Only | [facility] | Kei Fortune MD | | | 2012 | | CARDIOLOGY [place] | [address] | | | | | [address] | [place] [address] | | | | | [place], [place] | [phone] | | | | | [address] | | | | | | [phone] | | | +--------+ + + + [...] [place] | | | | | | [address] | | | | | | | [...] | | | | | | [place] [address] | | | | | | [phone] | | | | | | | | +--------+ + + + + | 11/25/ | Office | Nephrology | Kei Arthur MD | | | 2020 | Visit | | [address] | | | | | | [address] [place] | | | | | | [address] | | | | | | | | +--------+ + + + + documented as of this encounter Visit Diagnoses Not on filedocumented in this encounter"
--- OUTSIDE RECORDS SUMMARY | ~2019-10-02 | XMS | Encounter Summary ---
Demographics + + + | Address | [address] | | | [place] [address] | + + + | Home Phone [...] + + + | Author | [facility] | | | and [place] | + + + | Organization | [facility] | | | and [place] | + + + | Address | Unknown | + + + | Phone | Unavailable | + + + Support + + + + + | Name | Relationship | Address | Phone | + + + + + | Kyaw Woodson | ECON | [place], [place] | | + + + + + | Barbara Cabrera | ECON | Unknown | | + + + + + | Dimple Hathaway | ECON | Unknown | | + + + + + Care Team Providers + +------+ + | Care Outpatient Clerk Name | Role | Phone | + [...] + + | 05/15/ | Office | [facility] | Char Veliz | Bacteremia (Primary | | 2019 | Visit | INFECTIOUS DISEASE | Jennifer Giraldo MD | Dx) | | | | [address] | [address] | | | | | [place], [place] | [place] [address] | | | | | [address] | [phone] | | | | | [phone] | | | +--------+---------+ + + + [...] might be d ifferent from the original. 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 She was transferred to [facility] for higher level of care. 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 MAIN OR; Ser vice: Vascular; Laterality: Right; [...] with any worsening of symptoms. Dictation software, [employer], used which may contain error for similar sounding words even af ter review. Personal communication requested for any clarification. Portions of this chart may have been copied from previous notes for continuity of care purp khang Veliz MD Infectious Diseases [facility] [address] [place] [address] O: F: 05/16/2019 acucciol o, Racheal Olivarez [...] [address] | | | | | | [facility] | | | | | | [place] | | | | | | [address] [...] 206 | | | | | | [place] [address] | | | | | | [phone] | | | | | | | | +--------+ + + + + | 11/25/ | Office | Nephrology | Kei Arthur MD | | | 2019 | Visit | | [address] [facility] | | | | | | [address] [place] | | | | | | [address] | | | | | | | | +--------+ + + + + documented as of this encounter Visit Diagnoses + + | Diagnosis | + + | Bacteremia - Primary | + + documented in this encounter"
--- OUTSIDE RECORDS SUMMARY | ~2019-10-02 | XMS | Encounter Summary ---
Demographics + + + | Address | [address] | | | [place] [address] | + + + | Home Phone [...] + | Organization | [facility] | | | and [place] | + + + | Address | Unknown | + + + | Phone | Unavailable | + + + Support + + + + + | Name | Relationship | Address | Phone | + + + + + | Kyaw Woodson | ECON | [place], [place] | | + + + + + | Barbara Cabrera | ECON | Unknown | | + + + + + | Dimple Hathaway | ECON | Unknown | | + + + + + Care Team Providers + +------+ + | Care Practicing Dermatologist Name | Role | Phone | + +------+ + | Jennyefr Gresham MD | PCP | | + +------+ + Reason for Visit +--------+ + | Reason | Comments | +--------+ + | Other | | +--------+ + Encounter Details +--------+ + + + + | Date | Type | Department | Care Team | Description | +--------+ + + + + | 10/01/ | Telephone | [facility] | Jerry Yuen, | Other | | 2019 | | [facility] | MD [address] | | | | | [facility] [address] | [address] | | | | | [address] | [place] [address] | | | | | [place], [place] | [phone] | | | | | [address] | | | | | | [phone] | | | +--------+ + + + [...] [place] | | | | | | [address] | | | | | | | [...] | | | | | [place] [address] | | | | | | [phone] | | | | | | | | +--------+ + + + + | 11/25/ | Office | Nephrology | Kei Arthur MD | | | 2019 | Visit | | [address] | | | | | | [address] [place], [place] | | | | | | [address] | | | | | | | | +--------+ + + + + documented as of this encounter Visit Diagnoses Not on filedocumented in this encounter"
--- OUTSIDE RECORDS SUMMARY | ~2019-10-02 | XMS | Encounter Summary ---
Demographics + + + | Address | [address] | | | [place] [address] | + + + | Home Phone | | + + + | Preferred Language | Unknown | + + + | Marital Status | Single | + + + | Caodaism Affiliation | 1041 | + + + | Race | Unknown | + + + | Ethnic Group | Unknown | + + + Author + + + | Author | [facility] | | | and [place] | + + + | Organization | [facility] | | | and [place] | + + + | Address | Unknown | + + + | Phone | Unavailable | + + + Support + + + + + | Name | Relationship | Address | Phone | + + + + + | Kyaw Woodson | ECON | [place], [place] | | + + + + + | Barbara Cabrera | ECON | Unknown | | + + + + + | Dimple Hathaway | ECON | Unknown | | + + + + + Care Team Providers + +------+ + | Care Director Of Anesthesia Services Name | Role | Phone | + +------+ + | Daniel Land NP | PCP | | + +------+ + Encounter Details +--------+ + + + + | Date | Type | Department | Care Team | Description | +--------+ + + + + | 08/31/ | Orders Only | [facility] | Conversion | | | 2017 | | NEPHROLOGY [place] | Transaction, | | | | | [address] [facility] [address] | Provider Unknown | | | | | [address] [place] | | | | | | [address] | (Fax) | | | | | [phone] | | | +--------+ + + + [...] | | | | | [facility] | | | | | | [place] | | | | | | [address] | | | | | | | [...] 206 | | | | | | [place] [address] | | | | | | [phone] | | | | | | | | +--------+ + + + + | 11/25/ | Office | Nephrology | eKi Arthur MD | | | 2019 | Visit | | [address] [facility] | | | | | | [address] [facility] | | | | | | [address] | | | | | | | [...] | | | LAB | | | [place] | | | | | + + [...]
--- OUTSIDE RECORDS SUMMARY | ~2019-10-02 | XMS | Encounter Summary ---
Demographics + + + | Address | [address] | | | [place] [address] | + + + | Home Phone | | + + + | Preferred Language | Unknown | + + + | Marital Status | Single | + + + | Yazidi Affiliation | 1041 | + + + | Race | Unknown | + + + | Ethnic Group | Unknown | + + + Author + + + | Author | [facility] | | | and [place] | + + + | Organization | [facility] | | | and [place] | + + + | Address | Unknown | + + + | Phone | Unavailable | + + + Support + + + + + | Name | Relationship | Address | Phone | + + + + + | Kyaw Woodson | ECON | [place], [place] | | + + + + + | Barbara Cabrera | ECON | Unknown | | + + + + + | Dimple Hathaway | ECON | Unknown | | + + + + + Care Team Providers + +------+ + | Care Block Cleaner Name | Role | Phone | + +------+ + | No, Physician | PCP | Unavailable | + +------+ + Encounter Details +--------+ + + + + | Date | Type | Department | Care Team | Description | +--------+ + + + + | 06/14/ | Hospital | [facility] [place] GENERIC IP | Conversion | Diagnosis unknown | | 2015 | Encounter | [address] | Transaction, | | | [address] | Provider Unknown | | | | | [place], [place] | [phone] | | | | | [address] | | | | | | [phone] | | | +--------+ + + + [...] [address] | | | | | | [facility] | | | | | | [place] | | | | | | [address] | | | | | | | [...] 206 | | | | | | [place] [address] | | | | | | [phone] | | | | | | | | +--------+ + + + + | 11/25/ | Office | Nephrology | Kei Arthur MD | | | 2019 | Visit | | [address] [facility] | | | | | | [address] [place] | | | | | | [address] | | | | | | | | +--------+ + + + + documented as of this encounter Procedures + +--------+ + + + | Procedure Name | Priori | Date/Time | Associated Diagnosis | Comments | | | ty | | | | + +--------+ + + + | XR CHEST 1 VIEW | Routin | 12/26/2015 | | Results for this | | | e | 6:38 PM | | procedure are in the | | | | PDT | | results section. | + +--------+ + + + documented in this encounter Results XR Chest 1 Vw (12/26/2015 6:38 PM PDT) + + | Specimen | [...]
--- OUTSIDE RECORDS SUMMARY | ~2019-10-02 | XMS | Clinical Summary ---
Demographics + + + | Address | [address] | | | [place] [address] | + + + | Home Phone | | + + + | Preferred Language | Unknown | + + + | Marital Status | Single | + + + | Zoroastrianism Affiliation | 1041 | + + + | Race | Unknown | + + + | Ethnic Group | Unknown | + + + Author + + + | Author | [facility] | | | and [place] | + + + | Organization | [facility] | | | and [place] | + + + | Address | Unknown | + + + | Phone | Unavailable | + + + Support + + + + + | Name | Relationship | Address | Phone | + + + + + | Kyaw Woodson | ECON | [place], [place] | | + + + + + | Barbara Cabrera | ECON | Unknown | | + + + + + | Dimple Hathaway | ECON | Unknown | | + + + + + Care Team Providers + +------+ + | Care Fast Food Shift Supervisor Name | Role | Phone | + +------+ + | Jennyfer Gresham MD | PCP | | + +------+ + Allergies + + + + + + | Active Allergy | Reactions | Severity | Noted | Comments | | | | | Date | | + + + + + + | Buprenorphine | Hives, Rash | High | 05/19/20 | | | | | | 15 | | + + + + + + | Ciprofloxacin | Nausea And Vomiting | Low | 07/16/20 | | | | | | 14 | | + + + + + + | Meperidine | Rash | Medium | 10/18/19 | Rash, Patient has | | | | | 12 | tolerated fentanyl | | | | | | in house | + + + + + + | Latex | Other (See Comments) | Medium | 10/18/19 | Hives | | | | | 12 | | + + + + + + | Methadone | Other (See Comments) | Medium | 12/15/19 | Stomach | | | | | 16 | painsjadeky | + + + + + + | Sulfa Antibiotics | Rash | Medium | 10/18/19 | Rash | | | | | 12 | | + + + + + + | Sulfacetamide | Hives | High | 07/16/20 | | | | | | 14 | | + + + + + + | Sulfamethoxazole-Tri | Hives | High | 07/16/20 | | | methoprim | | | 14 | | + + + + + + | Hydrocodone-Acetamin | Rash | Medium | 10/18/19 | Rash | | ophen | | | 12 | | + + + + + + Medications + + + +---------+------+------+-------+ | Medication | Sig | Dispensed | Refills | Star | End | Statu | | | | | | t | Date | s | | | | | | Date | | | + + + +---------+------+------+-------+ | aspirin 81 mg | Take 81 mg by mouth | | 0 | 10/2 | | Activ | | chewable tablet | daily. | | | 05/08 | | e | | | | | | 14 | | | + + + +---------+------+------+-------+ | B complex vitamins | Take 1 tablet by | | 0 | 08/3 | | Activ | | tablet | mouth daily. | | | 10/08 | | e | | | | | | 15 | | | + + + +---------+------+------+-------+ | Multiple Vitamin | Take 1 tablet by | | 0 | 08/3 | | Activ | | (MULTIVITAMIN) | mouth daily. | | | 10/08 | | e | | tablet | | | | 15 | | | + + + +---------+------+------+-------+ | acetaminophen | Take 500 mg by mouth | | 0 | 12/0 | | Activ | | (TYLENOL) 500 mg | every 6 (six) hours | | | 04/07 | | e | | tablet | as needed for Pain. | | | 15 | | | + + + +---------+------+------+-------+ | ascorbic acid | Take 1,000 mg by | | 0 | 09/1 | | Activ | | (VITAMIN C) 1000 MG | mouth daily. | | | 06/08 | | e | | tablet | | | | 16 | | | + + + +---------+------+------+-------+ | potassium chloride | 10 mEq daily. | | 0 | 06/2 | | Activ | | (KLOR-CON) 10 mEq | | | | /20 | | e | | CR tablet | | | | 18 | | | + + + +---------+------+------+-------+ | venlafaxine | | | 0 | 11/1 | | Activ | | (EFFEXOR XR) 150 mg | | | | /20 | | e | | 24 hr capsule | | | | 18 | | | + + + +---------+------+------+-------+ | albuterol (PROAIR | Inhale 2 puffs into | 1 | 3 | 01/3 | | Activ | | HFA) 90 mcg/puff | the lungs every 4 | Inhaler | | 0/20 | | e | | inhaler | (four) hours as | | | 19 | | | | | needed. | | | | | | + + + +---------+------+------+-------+ | nitroglycerin | DISSOLVE ONE TABLET | 25 | 51 | 02/1 | | Activ | | (NITROSTAT) 0.4 mg | UNDER THE TONGUE | tablet | | 9/20 | | e | | SL tablet | EVERY 5 MINUTES | | | 19 | | | | | NEEDED FOR CHEST | | | | | | | | PAIN. DO NOT EXCEED | | | | | | | | A TOTAL OF 3 DOSES | | | | | | | | IN 15 MINUTES | | | | | | + + + +---------+------+------+-------+ | metoprolol | Take 1 tablet by | 180 | 3 | 02/2 | | Activ | | succinate | mouth 2 (two) times | tablet | | 0/20 | | e | | (TOPROL-XL) 100 mg | daily. | | | 19 | | | | ER tablet | | | | | | | + + + +---------+------+------+-------+ | sodium bicarbonate | TAKE 2 TABLETS BY | 540 | 3 | 04/ | | Activ | | 650 mg tablet | MOUTH THREE TIMES | tablet | | 20 | | e | | | DAILY | | | 19 | | | + + + +---------+------+------+-------+ | torsemide | TAKE 2 TABLETS BY | 360 | 1 | 05/ | | Activ | | (DEMADEX) 20 mg | MOUTH TWICE DAILY | tablet | | 220 | | e | | tablet | | | | 19 | | | + + + +---------+------+------+-------+ | allopurinol | Take 1 tablet by | 30 | 11 | 03/19 | 03/19 | Activ | | (ZYLOPRIM) 300 mg | mouth daily. | tablet | | 5/20 | 4/20 | e | | tablet | | | | 19 | 20 | | + + + +---------+------+------+-------+ | oxyCODONE 10 MG | Take 10 mg by mouth. | | 0 | 08/0 | | Activ | | TABS | | | | 8/20 | | e | | | | | | 19 | | | + + + +---------+------+------+-------+ | insulin glargine | Inject under the | | 0 | | | Activ | | (BASAGLAR TRINOPEN) | skin nightly. | | | | | e | | 100 units/mL | | | | | | | | injection (pen) | | | | | | | + + + +---------+------+------+-------+ | diphenhydrAMINE | Take 25 mg by mouth | | 0 | | | Activ | | (BENADRYL) 25 mg | every 6 hours as | | | | | e | | tablet | needed for Itching. | | | | | | + + + +---------+------+------+-------+ | bisacodyl | Take 5 mg by mouth | | 0 | | | Activ | | (DULCOLAX) 5 mg EC | Daily as needed for | | | | | e | | tablet | Constipation. | | | | | | + + + +---------+------+------+-------+ | insulin lispro | Inject under the | | 0 | | | Activ | | (HUMALOG) 100 | skin 3 times daily | | | | | e | | units/mL injection | (before meals). | | | | | | | (cartridge) | | | | | | | + + + +---------+------+------+-------+ | polyethylene | Take 17 g by mouth | | 0 | | | Activ | | glycol (MIRALAX) | Daily. | | | | | e | | packet | | | | | | | + + + +---------+------+------+-------+ | fenofibrate 160 mg | TAKE 1 TABLET BY | 90 | 3 | 10/3 | | Activ | | tablet | MOUTH ONCE DAILY | tablet | | 0/20 | | e | | | | | | 19 | | | + + + +---------+------+------+-------+ | ferrous sulfate | TAKE 1 TABLET BY | 90 | 3 | 11/ | | Activ | | 324 (65 Fe) MG EC | MOUTH TWICE DAILY | tablet | | 20 | | e | | tabletIndications: | WITH MEALS | | | 19 | | | | Benign essential | | | | | | | | hypertension, CKD | | | | | | | | (chronic kidney | | | | | | | | disease) stage 3, | | | | | | | | GFR 30-59 ml/min | | | | | | | | (HCC), Persistent | | | | | | | | proteinuria | | | | | | | + + + +---------+------+------+-------+ Active Problems + + + | Problem | Noted Date | + + + | Normocytic anemia | 05/16/2019 | + + + | Non-traumatic rhabdomyolysis | 04/21/2019 | + + + | Skin ulcer of finger, limited to breakdown of skin | 04/17/2019 | + + + | Lactic acidosis | 04/14/2019 | + + + + + | Overview: will LOMELI is 2. 0 | + + + + + | Gangrene of extremity | 04/13/2019 | + + + + + | Overview: Jude s/p MAN ERIC VASC SURGERY | + + + + + | Ischemic cardiomyopathy | 03/08/2018 | + + + + + | Overview: WILL MONITOR NIL CHEST PAIN NOW | | On Lipitor 80 mg | + + + + + | Secondary hyperparathyroidism | 11/21/2017 | + + + | Iron deficiency anemia | 06/19/2016 | + + + | Localized edema | 06/19/2016 | + + + | Abrasion | 06/16/2016 | + + + | Type 2 diabetes mellitus with diabetic nephropathy, with | 06/16/2016 | | long-term current use of insulin | | + + + + + | Overview: Sugars controlled | | Basal BID Meal and correction Bolus | + + + + + | Iron deficiency | 06/07/2016 | + + + | ICD (implantable cardioverter-defibrillator), single, in situ | 11/05/2015 | + + + + + | Overview: Hx Pacemaker/ICD: initial implant 12/12/2012, lead | | failure, replaced with [employer] 1010 SQ-device 06/18/2013 | | SN: [id number] (SQ ICD). 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 ICD | | interogation ; by Dr. Ceja in [place] 06/30/2015 : battery | | 74%, device stable , no changes Last Cath, 10/05/2012: left | | main OK, prox-LAD occluded, LCx stent patent, distal RCA | | occluded. LVEF 30-35%. | + + + + + | Left leg pain | 10/18/2011 | + + + | Essential hypertension, benign | 10/18/2011 | + + + | Hx of BKA, left | 10/18/2011 | + + + | CHF (congestive heart failure) | 10/18/2011 | + + + + + | Overview: Nil acute comfortable at rest | + + + +---+ | Group G streptococcal infection | | + +---+ Resolved Problems + + + + | Problem | Noted | Resolved | | | Date | Date | + + + + | Chest pain | 04/21/20 | | | | 19 | 9 | + + + + | Hyperkalemia | 04/18/20 | | | | 19 | 9 | + + + + | Hyponatremia | 04/14/20 | | | | 19 | 9 | + + + + + + | Overview: 04/16 RESOLVED Na 135 | + + +--------+ + + | Sepsis | 04/13/20 | | | | 19 | 9 | +--------+ + + + + | Overview: Wet Gangrene Rt LE now s/p MAN Flores | + + + + + + | Septic shock | 04/13/20 | | | | 19 | 9 | + + + + + + | Overview: HAD B HEMOLYTIC STERP IN BLOOD AND WOUND CULT | | On Kerry and clinda | | 04/16 Now Rocephin per ID recommendation | + + + + + + | Hyperkalemia | 04/13/20 | | | | 19 | 9 | + + + + + + | Overview: Resolved K 4.7 | + + + + + + | Electrolyte imbalance risk | 11/22/19 | | | | 18 | 9 | + + + + | 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 | 11/18/19 | | | | 18 | 9 | + + + + + + | Overview: Last Assessment & Plan: | | With evidence of cnvm on FA, OCT and exam OU | | PARQ Avastin today | + + + + + + | Morbid obesity | 10/18/19 | | | | 12 | 9 | + + + + + + | Overview: Needs weight loss | + + Encounters +--------+ + + + + | Date | Type | Specialty | Care Team | Description | +--------+ + + + + | 10/01/ | Telephone | Family Medicine | Jerry Yuen, | Other | | 2019 | | | | | +--------+ + + + + | 08/29/ | Telephone | Family Medicine | Jerry Yuen, | Establish Care | | 2018 | | | | (Sooner appointment) | +--------+ + + + + | 08/28/ | Telephone | Family Medicine | Stephanie Estrada Establish Care | | 2018 | | | MD Sarah | (Sooner appointment) | +--------+ + + + + | 08/22/ | Procedure | Cardiology | | ICD (implantable | | 2018 | visit | | | cardioverter-defibri | | | | | | llator), single, in | | | | | | situ (Primary Dx) | +--------+ + + + + | 08/22/ | Office | Cardiology | Jerry Watts | Ischemic | | 2018 | Visit | | MD Mario | cardiomyopathy | | | | | | (Primary Dx); Status | | | | | | post internal | | | | | | cardiac | | | | | | defibrillator | | | | | | procedure | +--------+ + + + + | 08/10/ | Telephone | Nephrology | Malvin, | Other (Appointment | 2018 | | | Janes Acevedo | reminder call) | | | | | Ramp Service Agent | | +--------+ + + + + | 08/02/ | Refill | Family Medicine | Rick Mast, | Medication Refill | | 2018 | | | REBECCA | | +--------+ + + + + | 07/17/ | Refill | Cardiology | Mari Mcdaniel, | Medication Refill | | 2018 | | | | (Fenofibrate) | +--------+ + + + + | 07/16/ | Telephone | Cardiology | Jerry Watts | Appointment | | 2018 | | | MD Mario | | +--------+ + + + + | 07/04/ | Telephone | Nephrology | Malvin | Lulu (UTI Concern) | | 2018 | | | Jaens Acevedo | | | | | | | | +--------+ + + + + from Last 3 Months Family History + + +------+ + | Medical History | Relation | Name | Comments | + + +------+ + | Hypertension | Brother | | | + + +------+ + | Cancer | Father | | Prostate | + + +------+ + | Diabetes, NIDDM | Father | | | + + +------+ + | Cancer | Mother | | | + + +------+ + | Diabetes, NIDDM | Mother | | | + + +------+ + | Hypertension | Mother | | | + + +------+ + | Diabetes, NIDDM | Sister | | | + + +------+ + + +------+ + + | Relation | Name | Status | Comments | + +------+ + + | Brother | | | | + +------+ + + | Father | | Alive | | + +------+ + + | Mother | | | | + +------+ + + | Sister | | | | + +------+ + + Social History + +-------+ +--------+------+ [...] recent travel history available. | + + Last Filed Vital Signs + + + + + | Vital Sign | Reading | Time Taken | Comments | + + + + + | Blood Pressure | 110/68 | 08/22/2019 10:36 AM | | | | | PST | | + + + + + | Pulse | 83 | 08/22/2019 10:36 AM | | | | | PST | | + + + + + | Temperature | 36.8 C (98.2 F) | 05/15/2019 3:59 PM | | | | | PDT | | + + + + + | Respiratory Rate | 16 | 05/15/2019 3:59 PM | | | | | PDT | | + + + + + | Oxygen Saturation | 97% | 08/22/2019 10:36 AM | | | | | PST | | + + + + + | Inhaled Oxygen | - | - | | | Concentration | | | | + + + + + | Weight | 111.5 kg (245 lb | 05/16/2019 5:19 PM | | | | 14.4 oz) | PDT | | + + + + + | Height | 177.8 cm (5' 10") | 06/05/2019 12:23 PM | | | | | PDT | | + + + + + | Body Mass Index | 35.28 | 05/16/2019 5:19 PM | | | | | PDT | | + + + + + Plan of Treatment +--------+ + + + + | Date | Type | Specialty | Care Team | Description | +--------+ + + + + | 10/10/ | Office | Cardiology | Stefanie, Jerry | | | 2019 | Visit | | MD Mario [address] | | | | | | [address] | | | | | | [place] | | | | | | [address] | | | | | | | [...] | | | | | [place] [address] | | | | | | [phone] | | | | | | | | +--------+ + + + + | 11/25/ | Office | Nephrology | Kei Arthur MD | | | 2019 | Visit | | [address] [facility] [address] | | | | | | [address] [place] | | | | | | [address] | | | | | | | | +--------+ + + + + + + + + + | Health Maintenance | Due Date | Last Done | Comments | + + + + + | Vaccine: | | | | | Pneumococcal 19-64 | 7 | | | | (1 of 3 - PCV13) | | | | + + + + + | Diabetic Eye Exam | | | | | | 9 | | | + + + + + | Diabetic Foot Exam | | | | | | 9 | | | + + + + + | Cervical Cancer | | | | | Screening (Pap) | 1 | | | + + + + + | Breast Cancer | | | | | Screening | 6 | | | + + + + + | Adult Annual | | | | | Wellness Visit | 9 | | | + + + + + | Hemoglobin A1c | | 04/14/2019, 03/09/2018, | | | Screening | 0 | 03/09/2018, Additional history | | | | | exists | | + + + + + | Vaccine: | | 04/24/2018, 06/27/2014 | | | Dtap/Tdap/Td (3 - | 8 | | | | Td) | | | | + + + + + | Vaccine: Influenza | Completed | 06/28/2019, 07/25/2018, | | | | | 06/23/2017, Additional history | | | | | exists | | + + + + + Procedures + +--------+ + + + | Procedure Name | Priori | Date/Time | Associated Diagnosis | Comments | | | ty | | | | + +--------+ + + + | CUSTOMER RESOLUTION SPECIALIST REPORT - | | 09/24/2019 | | Results for this | | EXTERNAL SCAN | | 12:00 AM | | procedure are [...] section. | + +--------+ + + + from Last 3 Months Results CUSTOMER RESOLUTION SPECIALIST REPORT - EXTERNAL SCAN (09/24/2019 12:00 AM PST) + + + | Narrative | Performed At | + + + | Ordered by an | | | unspecified provider. | | + + + Device Interrogation (08/23/2019 12:00 AM PST) + + + | Narrative | Performed At | + + + | [facility] | | James, Warp Placer 08/23/2019 10:23 AMDevice interrogation | | | done by Marilu Watts Any events or changes listed in office note. See | | | device data attached to scheduled encounter for additional details. | | | motion picture equipment supervisor: Brenda Ramirez, [facility] | | |See device data attached to scheduled encounter for additional | | |details. | | | | | |motion picture equipment supervisor: Brenda Ramirez, [facility] | | + + + + + | Procedure Note | + + | Brenda Ramirez, Warp Placer - 08/22/2019 10:30 AM PST Device interrogation | | done by Marilu Guerra events or changes listed in office note.See device data attached | | to scheduled encounter for additional details. motion picture equipment supervisor: Brenda Ramirez, [facility] | | | |See device data attached to scheduled encounter for additional details. | | | |motion picture equipment supervisor: Brenda Ramirez, [facility] | + + + +---------+ + + | Performing | Address | City/State/Zipcode | Phone Number | | Organization | | | | + +---------+ + + | [facility] | | | | + +---------+ + + ECG 12 lead (08/22/2019 10:44 AM PST) [...] | | | | | by [facility] [place] Read Only, | | | | | | [facility] [place] ([id number]), | | | | | | slot editor Pop Hess | | | | | | (132) on 08/22/2019 | | | | | [...] | | | + +---------+ + + from Last 3 Months Insurance + +--------+ +--------+ +---------+--------+ | Payer | Benefi | Subscriber | Effect | Phone | Address | Type | | | t Plan | ID | jarad | | | | | | / | | Dates | | | | | | Group | | | | | | + +--------+ +--------+ +---------+--------+ | MEDICARE | MEDICA | [id number] | | [phone] | | Medica | | | RE | | 012-Pr | 5 | | re | | | PART A | | esent | | | | | | AND B | | | | | | + +--------+ +--------+ +---------+--------+ | MEDICARE | MEDICA | [id number] | | [phone] | | Medica | | | RE | | 012-Pr | 5 | | re | | | PART A | | esent | | | | | | AND B | | | | | | + +--------+ +--------+ +---------+--------+ | [place] | MEDICA | [id number] | | [phone] | | [place] | | | [place] | | 014-Pr | 2 | | id | | | PLUS | | esent | | | | + +--------+ +--------+ +---------+--------+ | [place] | MEDICA | [id number] | 04/27/20 | [phone] | | Medica | | | [place] | | 19-Pre | 2 | | id | | | PLUS | | sent | | | | + +--------+ +--------+ +---------+--------+ + +--------+ +--------+ + + | Guarantor Name | Accoun | Relation to | Date | Phone | Billing Address | | | t Type | Patient | of | | | | | | | | | | + +--------+ +--------+ + + | Alondra Caballero | Person | Self [birth year] | [address] | | | al/Fam | | 1970 | [phone] | [address] [place], | | | [place] | | | [address] (Home) | [place] [address] | + +--------+ +--------+ + + | Alondra Caballero | Person | Self [birth year] | [address] | | | al/Fam | | 1969 | [phone] | [address] [place], | | | [place] | | | [address] (Home) | [place] [address] | + +--------+ +--------+ + + Advance Directives + + + + + | Type | Date Recorded | Patient | Explanation | | | | Casserole Preparer | | + + + + + | Power of | | | | | Archaeologist | | | | + + + + + | Advance | | | | | Directive | | | | + + + + +
--- OUTSIDE RECORDS SUMMARY | ~2019-10-02 | XMS | Encounter Summary ---
Demographics + + + | Address | [address] | | | [place] [address] | + + + | Home Phone | | + + + | Preferred Language | Unknown | + + + | Marital Status | Single | + + + | Mandaeism Affiliation | 1041 | + + + | Race | Unknown | + + + | Ethnic Group | Unknown | + + + Author + + + | Author | [facility] | | | and [place] | + + + | Organization | [facility] | | | and [place] | + + + | Address | Unknown | + + + | Phone | Unavailable | + + + Support + + + + + | Name | Relationship | Address | Phone | + + + + + | Kyaw Woodson | ECON | [place], [place] | | + + + + + | Barbara Cabrera | ECON | Unknown | | + + + + + | Dimple Hathaway | ECON | Unknown | | + + + + + Care Team Providers + +------+ + | Care Lead Principal Technical Architect Name | Role | Phone | + +------+ + | No, Physician | PCP | Unavailable | + +------+ + Encounter Details +--------+ + + + + | Date | Type | Department | Care Team | Description | +--------+ + + + + | 04/17/ | Orders Only | [facility] | Kei Arthur MD | | | 2018 | | NEPHROLOGY [place] | [address] | | | | | [address] | [address] [place], [place] | | | | | [address] [facility], [place] | [address] | | | | | [address] | | | | | | [phone] | | | +--------+ + + + [...] [address] | | | | | | [address] | | | | | | | [...] | | | | | [place] [address] | | | | | | [phone] | | | | | | | | +--------+ + + + + | 11/25/ | Office | Nephrology | Kei Arthur MD | | | 2019 | Visit | | [address] [facility] | | | | | | [address] [place] | | | | | | [address] | | | | | | | | +--------+ + + + + documented as of this encounter Procedures + +--------+ + + + | Procedure Name | Priori | Date/Time | Associated Diagnosis | Comments | | | ty | | | | + +--------+ + + + | EXTERNAL LAB: [facility] | Routin | 04/17/2018 | | Results for this | | | e | 4:49 PM | | procedure are in the | | | | PDT | | results section. | + +--------+ + + + | URINALYSIS WITH | Routin | 04/17/2018 | | Results for this | | MICROSCOPIC IF | e | 4:49 PM | | procedure are in the | | INDICATED | | PDT | | results section. | + +--------+ + + + | MAGNESIUM | Routin | 04/17/2018 | | Results for this | | | e | 4:49 PM | | procedure are in the | | | | PDT | | results section. | + +--------+ + + + | RENAL FUNCTION PANEL | Routin | 04/17/2018 | | Results for this | | | e | 4:49 PM | | procedure are in the | | | | PDT | | results section. | + +--------+ + + + documented in this encounter Results Urinalysis with Microscopic if Indicated (04/17/2018 4:49 PM PDT) + + + [...] + + + | Spec Grav, | 1.009 | 1.005 - 1.030 | [...] + + + + | Total | 30 | | EXTERNAL | | | Protein | | | LAB | | + + + + + + | pH, Urine | 8 | 5 - 9 | EXTERNAL | [...] At | + + + | WBC's: >50 Bacteria: 4+ | EXTERNAL LAB | + + + + +---------+ + + | Performing | Address | City/State/Zipcode | Phone Number | | Organization | | | | + +---------+ + + | EXTERNAL LAB | | | | + +---------+ + + External Lab: CBC (04/17/2018 4:49 PM PDT) + + + + + + | Component | Value | Ref Range | Performed | Pathologist | | | | | At | Signature | + + + + + + | WBC | 10.7 | 4.5 - 11.0 10 | EXTERNAL | | | | | | LAB | | + + + + + + | RED CELL | 3.58 (A) | 3.8 - 5.1 10 | EXTERNAL | | | COUNT | | | LAB | | + + + + + + | Hgb | 10.9 (A) | 12 - 16 g/dL | EXTERNAL | | | | | | LAB | | + + + + + + | Hematocrit, | 33.4 (A) | 35 - 45 % | EXTERNAL | | | POC | | | LAB | | + + + + + + | MCV | 93.4 | 81 - 99 fL | EXTERNAL [...] + + + + | Platelet | 311 | 140 - 440 K/ L | EXTERNAL | | | Count | | | LAB | | | Plasma | | | | | + + + + + + | RDW-CV | 14.4 | 10.5 - 15.0 % | EXTERNAL [...] | | + +---------+ + + Magnesium (04/17/2018 4:49 PM PDT) + +-------+ + + + | [...] + +---------+ + + Renal Function Panel (04/17/2018 4:49 PM PDT) + + [...] + + + + | Creatinine | 3.06 (A) | 0.6 - 1.35 | EXTERNAL | | | | | mg/dL | LAB | | + + + + + + | PHOSPHORUS | 3.1 | 2.5 - 5.0 mg/dL | EXTERNAL [...] + + + | Anion Gap | 17 | 7 - 21 mmol/L | EXTERNAL | | | | | | LAB | | + + + + + + | eGFR if not | | | EXTERNAL | | | | | | LAB | | | [facility] | | | | | + + + + + + | Phosphorus, | | | EXTERNAL | | | Inorganic | | | LAB | | + + + + + + | BUN/Creatin | 14.1 | 6.0 - 28.6 | EXTERNAL | | | ine Ratio | | | LAB | | + + + + + + | Calcium | 9.4 | 8.5 - 10.3 | EXTERNAL | [...]
--- OUTSIDE RECORDS SUMMARY | ~2019-10-02 | XMS | Encounter Summary ---
Demographics + + + | Address | [address] | | | [place] [address] | + + + | Home Phone [...] Author + + + | Author | [facility] | + + + | Organization | [facility] | + + + | Address | Unknown | + + + | Phone | Unavailable | + + + Support + + +---------+ + | Name | Relationship | Address | Phone | + + +---------+ + | Valentine Qiu | ECON | Unknown | | + + +---------+ + Care Team Providers + +------+ + | Care Journalists And Other Writers Name | Role | Phone | + +------+ + | Ifeanyi Call MD | PCP | | + +------+ + Reason for Visit + + + | Reason | Comments | + + + | Follow-up visit | | + + + Benefits Check (Routine) +--------+--------+ + + + + | Status | Reason | Specialty | Diagnoses / | Referred By | Referred To | | | | | Procedures | Contact | Contact | +--------+--------+ + + + + | Closed | | Ophthalmology | | Non-[facility] | Jackie, | | | | | | Epic Dept | MD Jaelyn | | | | | | | [address] | | | | | | | [address] | | | | | | | [place], [place] | | | | | | | [address] | | | | | | | Phone: | | | | | | | [phone] | | | | | | | Fax: | | | | | | | [phone] | +--------+--------+ + + + + Encounter Details +--------+---------+ + + + | Date | Type | Department | Care Team | Description | +--------+---------+ + + + | 04/06/ | Office | [facility] | Jaelyn Watters, | Type 2 macular | | 2018 | Visit | [facility] | [address] | telangiectasis of | | | | Sushila Das [address] | [address] | both eyes (Primary | | | | [address] | [place], [place] | Dx); Choroidal | | | | Mailcode: CEI | [address] | neovascularization, | | | | [place] [address] | [phone] | both eyes; Retinal | | | | [phone] | | edema of both eyes | +--------+---------+ + + + Social History [...] + + documented as of this encounter Patient Instructions Patient Instructions Jaelyn Watters MD - 04/06/2018 1:15 PM PDTCare instructions after eye injections: ? Do not rub or touch your eye ? An zcfo-tbn-zaemheg pain reliever (i.e. Tylenol) can be used for mild soreness ? Use artificial tears/lubricating drops once an hour for comfort ? It is okay to shower and wash your face COMMON symptoms after successful eye injections: ? Mild to moderate pain or irritation beginning the day of the injection. This should begi n to improve the following day. ? Eyelash in the eye or sunita sensation ? Tearing ? Mild floaters or bubbles in your vision ? Bloody tears for 1-2 days after treatment ? Eye Redness ? Also known as subconjunctival hemorrhage ? This bruise can cover the entire white part of the eye and may last a few weeks CONCERNING symptoms after eye injections: ? Severe, constant pain ? Worsening pain after the first day ? Decreased vision ? Severe, constant floaters ? Curtain or veil in your vision Please call the clinic immediately for any of the above listed concerning symptoms or with any other questions documented in this encounter Progress Notes Jaelyn Watters MD - 04/06/2018 1:15 PM PDTFormatting of this note might be different f rom the original. [facility] Progress Note 04/06/2018 48 y.o. 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 Chief Complaint: Follow-up visit HPI (Edited by physician):Vision has been stable; pt got new glasses 3 days ago; denies eye pain or discomfort. Current Outpatient Prescriptions (Other) Medication Sig acetaminophen Take by mouth. albuterol Inhale by mouth. allopurinol ascorbic acid SR Take by mouth. aspirin chewable Chew and swallow. atorvastatin 80 mg. b complex vitamins Take by mouth. Cholecalciferol (Vitamin D3) Take by mouth. DEXILANT docusate sodium Take by mouth. Fenofibrate insulin regular hum U-500 conc Inject under the skin (SUBC) as needed. INV insulin aspart Inject under the skin (SUBC). KLOR-CON M10 metoprolol succinate multivitamin Take by mouth. spironolactone torsemide venlafaxine Examination: See Ophthalmology Module Attestations: The television technician, under the supervision of the physician, is responsible for performing the f ollowing sections: RFV, ROS, PMH, PSH, SocHx, FH, Med list, Base Ophth Exam. The attending physician is responsible for the entire content of the note and has personall y performed the HPI and the physical examination JAELYN WATTERS MD documented in this encounter Plan of Treatment Not on filedocumented as of this encounter Procedures + +--------+ + + + | Procedure Name | Priori | Date/Time | Associated Diagnosis | Comments | | | ty | | | | + +--------+ + + + | AVASTIN INJ - OS - | Routin | 04/06/2018 | Choroidal | Results for this | | LEFT EYE | e | 2:07 PM | neovascularization, | procedure are in the | | | | PDT | both eyes Retinal | results section. | | | | | edema of both eyes | | + +--------+ + + + | OCT, RETINA | Routin | 04/06/2018 | Type 2 macular | Results for this | | | e | 1:23 PM | telangiectasis of | procedure are in the | | | | PDT | both eyes Choroidal | results section. | | | | | neovascularization, | | | | | | both eyes Retinal | | | | | | edema of both eyes | | + +--------+ + + + documented in this encounter Results AVASTIN INJECTION - OS - LEFT EYE (04/06/2018 2:07 PM PDT) + + + | Narrative | Performed At | + + + | Pre-Procedure | | | Procedures, alternatives and risks discussed with patient. Questions | | | answered., confirmed correct patient, procedure, site and consent. | | | | | | | | | Anesthesia | | | Anesthesia: subconjunctival | | | Anesthetic Medication: Lidocaine 1% | | | | | | | | | Procedure | | | Preparation: betadine to ocular surface, eyelid speculum | | | | | | Needle: 30g | | | | | | | | | Injection: 1.25 mg bevacizumab 1.25 mg/0.05 mL | | | ND: [id number] | | | Lot: [id number] | | | Expiration Date: 04/14/2018 | | | Route: intravitreal | | | Site: Left Eye | | | | | | Estimated blood loss: none | | | | | | | | | Post Op | | | Post procedure assessment: visual acuity at least count fingers, eye | | | rinsed, patient tolerated procedure well | | + + + OCT, RETINA (04/06/2018 1:23 PM PDT) + + + | Narrative | Performed At | + + + | Employee'S Representative | [facility] | | DocumentationRight EyeQuality: good Central macular thickness: | [facility] | | 248 Segmentation: accurate Left EyeQuality: good Central | | | macular thickness: 291 Segmentation: accurate Provider | | | DocumentationRight EyeContour: central thickening, improved Fluid | | | and related findings: no fluid, better Retinal findings: | | | Subretinal scar Left EyeContour: central thickening, improved | | | Fluid and related findings: no fluid, better Retinal findings: | | | Subretinal scar | | |Quality: good | | | | | |Central macular thickness: 291 | | |Segmentation: accurate | | | | | | | | |Provider Documentation | | |Right Eye | | |Contour: central thickening, improved | | |Fluid and related findings: no fluid, better | | |Retinal findings: Subretinal scar | | | | | | | | |Left Eye | | |Contour: central thickening, improved | | |Fluid and related findings: no fluid, better | | |Retinal findings: Subretinal scar | | + + + + + + + + | Performing | Address | City/State/Zipcode | Phone Number | | Organization | | | | + + + + + | [facility] | [address] | [place] [address] | | | [facility]STITUTE | [place]. 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 - Primary | + + | Choroidal neovascularization, both eyes Retinal neovascularization NOS | + + | Retinal edema of both eyes | + + documented in this encounter Administered Medications + +--------+ +---------+------+ + | Medication Order | MAR | Action | Dose | Rate | Site | | | Action | Date | | | | + +--------+ +---------+------+ + | bevacizumab (AVASTIN) | Given | 04/06/20 | 1.25 mg | | Left Eye | | intravitreal injection 1.25 mg | | 18 2:07 | | | | | 1.25 mg, ONCE NEEDED, Starting | | PM PDT | | | | | Olena 04/06/18 at 1407, Until Wed | | | | | | | 05/17/18 at 1102 | | | | | | + +--------+ +---------+------+ + +---+---+ | | | +---+---+ documented in this encounter"
--- OUTSIDE RECORDS SUMMARY | ~2019-10-02 | XMS | Clinical Summary ---
Demographics + + + | Address | [address] | | | [place] [address] | + + + | Home Phone [...] + + + | Author | [facility] | | | and [place] | + + + | Organization | [facility] | | | and [place] | + + + | Address | Unknown | + + + | Phone | Unavailable | + + + Support + + + + + | Name | Relationship | Address | Phone | + + + + + | Kyaw oWodson | ECON | [place], [place] | | + + + + + | Barbara Cabrera | ECON | Unknown | | + + + + + | Dimple Hathaway | ECON | Unknown | | + + + + + Care Team Providers + +------+ + | Care County Auditor Name | Role | Phone | + [...] 12/12/2012, lead | | failure, replaced with [employer] 1010 SQ-device 06/18/2013 | | SN: [id number] (SQ ICD). 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 ICD | | interogation ; by Dr. Ceja in [place] 06/30/2015 : battery | | 74%, device [...] reminder call) | | | | | Acid Conditioner | | +--------+ + + + + [...] Concern) | | 2018 | | | Janes Acevedo | | | | | | [...] [place] | | | | | | [address] | | | | | | | [...] | | | | | [place] [address] | | | | | | [phone] | | | | | | | | +--------+ + + + + | 11/25/ | Office | Nephrology | Kei Arthur MD | | | 2019 | Visit | | [address] [facility] | | | | | | [address] [place] | | | | | | [address] | | | | | | | [...] | + +--------+ + + + | SPRINKLER WORKER REPORT - | | 09/24/2019 | | [...] + + from Last 3 Months Results SPRINKLER WORKER REPORT - EXTERNAL SCAN (09/24/2019 12:00 AM PST) + + + | Narrative | Performed At | + + + | Ordered by an | | | unspecified provider. | | + + + Device Interrogation (08/23/2019 12:00 AM PST) + + + | Narrative | Performed At | + + + | Brenda BARNETT | | James, Machine Gunner 08/23/2019 10:23 AMDevice interrogation | | | done by Marilu Watts Any events or changes listed in office note. See | | | device data attached to scheduled encounter for additional details. | | | training consultant: Brenda Ramirez, [facility] | | |See device data attached to scheduled encounter for additional | | |details. | | | | | |training consultant: Brenda Ramirez, [facility] | | + + + + + | Procedure Note | + + | Brenda Ramirez, Machine Gunner - 08/22/2019 10:30 AM PST Device interrogation | | done by Marilu Guerra events or changes listed in office note.See device data attached | | to scheduled encounter for additional details. training consultant: Brenda Ramirez, [facility] | | | |See device data attached to scheduled encounter for additional details. | | | |training consultant: Brenda Ramirez, [facility] | + + [...] | | | | | by [employer] [place] Read Only, | | | | | | [employer] [place] (360), | | | | | | editor magazine [employer] | | | | | | ([phone]) on 08/22/2019 | | | | | [...] +--------+ +---------+--------+ | MEDICARE | MEDICA | [id number] | | [phone] | | Medica | | | RE | | 012-Pr | 5 | | re | | | PART A | | esent | | | | | | AND B | | | | | | + +--------+ +--------+ +---------+--------+ | MEDICARE | MEDICA | [id number] | | [phone] | | Medica | | | RE | | 012-Pr | 5 | | re | | | PART A | | esent | | | | | | AND B | | | | | | + +--------+ +--------+ +---------+--------+ | [place]ID [place] | MEDICA | [id number] | | [phone] | | Medica | | | ID [place] | | 014-Pr | 2 | | id | | | PLUS | | esent | | | | + +--------+ +--------+ +---------+--------+ | [place] | MEDICA | [id number] | 04/27/20 | [phone] | | Medica | | | ID [...] | | | 5 (Home) | [place] [address] | + +--------+ +--------+ + + | Alondra Caballero | Person | Self [birth year] | [address] | | | al/Fam | | 1969 | [phone] | [address] [place], | | | lucía | | | 5 (Home) | [place] [address] | + +--------+ +--------+ + + Advance Directives + + + + + | Type | Date Recorded | Patient | Explanation | | | | Punch Press Operator Helper | | + + + + + | Power of | | | | | Bracelet Former | | | | + + + + + | Advance | | | | | Directive | | | | + + + + +
--- OUTSIDE RECORDS SUMMARY | ~2019-10-02 | XMS | Encounter Summary ---
Demographics + + + | Address | [address] | | | [place] [address] | + + + | Home Phone | | + + + | Preferred Language | Unknown | + + + | Marital Status | Single | + + + | Spiritism Affiliation | 1041 | + + + | Race | Unknown | + + + | Ethnic Group | Unknown | + + + Author + + + | Author | [facility] | | | and [place] | + + + | Organization | [facility] | | | and [place] | + + + | Address | Unknown | + + + | Phone | Unavailable | + + + Support + + + + + | Name | Relationship | Address | Phone | + + + + + | Kyaw Woodson | ECON | [place], [place] | | + + + + + | Barbara Cabrera | ECON | Unknown | | + + + + + | Dimple Hathaway | ECON | Unknown | | + + + + + Care Team Providers + +------+ + | Care Sign Hanger Name | Role | Phone | + +------+ + | No, Physician | PCP | Unavailable | + +------+ + Encounter Details +--------+ + + + + | Date | Type | Department | Care Team | Description | +--------+ + + + + | 06/14/ | Hospital | [facility] | Conversion | Diagnosis unknown | | 2015 | Encounter | CONVERSION [address] | Transaction, | | | | | [address] | Provider Unknown | | | | | [place], [place] | [phone] | | | | | [address] | | | | | | [phone] | | | +--------+ + + + [...] [address] | | | | | | [facility] | | | | | | [place] | | | | | | [address] | | | | | | | [...] [address] | | | | | | [place] [address] | | | | | | [phone] | | | | | | | | +--------+ + + + + | 11/25/ | Office | Nephrology | Kei Arthur MD | | | 2019 | Visit | | [address] [facility] | | | | | | [address] [place] | | | | | | [address] | | | | | | | [...]
--- OUTSIDE RECORDS SUMMARY | ~2019-10-02 | XMS | Encounter Summary ---
Demographics + + + | Address | [address] | | | [place] [address] | + + + | Home Phone | | + + + | Preferred Language | Unknown | + + + | Marital Status | Single | + + + | Adventism Affiliation | 1041 | + + + | Race | Unknown | + + + | Ethnic Group | Unknown | + + + Author + + + | Author | [facility] | | | and [place] | + + + | Organization | [facility] | | | and [place] | + + + | Address | Unknown | + + + | Phone | Unavailable | + + + Support + + + + + | Name | Relationship | Address | Phone | + + + + + | Kyaw Woodson | ECON | [place], [place] | | + + + + + | Barbara Cabrera | ECON | Unknown | | + + + + + | Dimple Hathaway | ECON | Unknown | | + + + + + Care Team Providers + +------+ + | Care Deckhand Oyster Dredge Name | Role | Phone | + +------+ + | Daniel Land NP | PCP | | + +------+ + Encounter Details +--------+ + + + + | Date | Type | Department | Care Team | Description | +--------+ + + + + | 05/04/ | Orders Only | [facility] | Kei Arthur MD | Ischemic | | 2019 | | NEPRHOLOGY [place] | [address] | cardiomyopathy; | | | | [address] | [address] [place], [place] | Other specified | | | | [address] [place], [place] | [address] | personal risk | | | | [address] | | factors, not | | | | [phone] | | elsewhere | | | | [...] [address] | | | | | | [facility] | | | | | | [place] | | | | | | [address] | | | | | | | [...] [address] | | | | | | [place] [address] | | | | | | [phone] | | | | | | | | +--------+ + + + + | 11/25/ | Office | Nephrology | Kei Arthur MD | | | 2019 | Visit | | [address] [facility] [address] | | | | | | [address] [place] [place] | | | | | | [address] | | | | | | | [...]
--- OUTSIDE RECORDS SUMMARY | ~2019-10-02 | XMS | Encounter Summary ---
Demographics + + + | Address | [address] | | | [place] [address] | + + + | Home Phone | | + + + | Preferred Language | Unknown | + + + | Marital Status | Single | + + + | Islam Affiliation | 1041 | + + + | Race | Unknown | + + + | Ethnic Group | Unknown | + + + Author + + + | Author | [facility] | | | and [place] | + + + | Organization | [facility] | | | and [place] | + + + | Address | Unknown | + + + | Phone | Unavailable | + + + Support + + + + + | Name | Relationship | Address | Phone | + + + + + | Kyaw Woodson | ECON | [place], [place] | | + + + + + | Barbara Cabrera | ECON | Unknown | | + + + + + | Dimple Hathaway | ECON | Unknown | | + + + + + Care Team Providers + +------+ + | Care Value Stream Coach Name | Role | Phone | + +------+ + | Jennyfer Gresham MD | PCP | | + +------+ + Reason for Visit + + + | Reason | Comments | + + + | Follow-up | | + + + Encounter Details +--------+---------+ + + + | Date | Type | Department | Care Team | Description | +--------+---------+ + + + | 06/26/ | Office | [facility] | Ro Breen, DNP | S/P AKA (above knee | | 2019 | Visit | VASCULAR SURGERY | [address] | amputation), right | | | | [address] | [place], [place] | ([facility]) (Primary Dx); | | | | [place], [place] | [address] | S/P BKA (below knee | | | | [address] | | amputation), left | | | | [phone] | | ([facility]); Class 2 | | | | | | obesity with body | | | | | | mass index (BMI) of | | | | | | 35.0 to 35.9 in | | | | | | adult, unspecified | | | | | | obesity type, | | | | | | unspecified whether | | | | | | serious comorbidity | | | | | | present; Right groin | | | | | | wound, initial | | | | | | encounter; Type 2 | | | | | | diabetes mellitus | | | | | | with diabetic | | | | | | nephropathy, with | | | | | | long-term current | | | | | | use of insulin (HCC) | +--------+---------+ + + + Social [...] +---------+ + + | Blood Pressure | 108/66 | 06/26/2019 9:57 AM | | | | | PDT | | + +---------+ + + | Pulse | 72 | 06/26/2019 9:57 AM | | | | | PDT | | + +---------+ + + | Temperature | - | - | | + +---------+ + + | Respiratory Rate | - | - | | + +---------+ + + | Oxygen Saturation | 98% | 06/26/2019 9:57 AM | | | | | PDT [...] + documented in this encounter Progress Notes Ro Breen DNP - 06/26/2019 10:00 AM [facility] [address] [place] [address] Office: [phone] DATE OF VISIT: 06/26/2019 PATIENT NAME: Alondra Caballero : 1970; AGE: 49 y.o.; Sex:F PHONE NUMBER: ; ; PROVIDER: Ro Breen DNP PRIMARY CARE / REFERRING PHYSICIAN: No ref. provider found / Jennyfer Gresham MD / [address] [facility] / [place] [address] REASON FOR EVALUATION / CHIEF COMPLAINT: Vascular Surgery Postoperative Visit for righ t [id number] The patient presents today for a Vascular Surgery Postoperative Visit. The patient is statu s post right dxwsd-udum-pdgkoixpgk, which was performed on 04/14/2019 at the [facility]. The patient is not having any pain. The patient denies fever , wound drainage, increasing redness, pus, increasing pain, increasing swelling. Physical ex amination revealed surgical incision is healed. She can't wear stump protector or pit steward d ue to right groin fold wound. She stays at [facility] and they have been taking care of her right groin wound. Patient reports phantom nerve pain in right AKA stump. She reports her blood sugar has not been well controlled. VITAL SIGNS: BP 108/66 | Pulse 72 | SpO2 98% PHYSICAL EXAM: Constitutional: Well nourished, no signs of distress Cardiovascular: Normal rate, regular rhythm. Pulmonary/Chest: No respiratory distress. Abdominal: Soft. No abdominal distension or tenderness. Large pannus. Right groin fold anthony jessica, no signs of infection noted. Musculoskeletal: Normal range of motion. S/p left BKA, prothesis in place Extremities: No edema, cyanosis or clubbing. Neurological: She is alert and oriented. VASCULAR: Palpable femoral pulses were present bilaterally. Incision site of right AKA woun d is completely healed. Assessment & Plan: S/p right above knee amputation - right AKA surgical incision is completely healed. However , patient developed right groin wound due to pressure from stump protector. Recommend wound care to right groin daily. Prognosis for right groin wound is guarded due to large abdominal pannus, obesity, uncontrolled DM, immobility. Monitor for signs of infection. Fall precauti on discussed. Keep good glycemic control. Morteza turner [facility] was in to for prosthesis evaluation. Patient not able to wear stump protector at this time due to right groin wound. We can change patient's pit steward to avoid pressure to the groin wound but patient declined. Patient can not wear prosthesis until right groin wound is healed. Discussed with patient to follow up with her in 3 months until she heals her right groin wound, patient declined to s [facility] follow up appointment. Follow up PRN. Ro Breen DNP documented in t his encounter Plan of Treatment +--------+ + + + + | Date | Type | Specialty | Care Team | Description | +--------+ + + + + | 10/10/ | Office | Cardiology | Jerry Watts | | | 2019 | Visit | | MD Mario [address] | | | | | | [employer] | | | | | | [place] | | | | | | [address] | | | | | | | [...] | | | | | [place] [address] | | | | | | [phone] | | | | | | | | +--------+ + + + + | 11/25/ | Office | Nephrology | Kei Arthur MD | | | 2019 | Visit | | [address] [facility] [address] | | | | | | [address] | | | | | | [address] | | | | | | | | +--------+ + + + + documented as of this encounter Visit Diagnoses + + | Diagnosis | + + | S/P AKA (above knee amputation), right (HCC) - Primary | + + | S/P BKA (below knee amputation), left (HCC) | + + | Class 2 obesity with body mass index (BMI) of 35.0 to 35.9 in adult, unspecified | | obesity type, unspecified whether serious comorbidity present | + + | Right groin wound, initial encounter | + + | Type 2 diabetes mellitus with diabetic nephropathy, 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"
--- OUTSIDE RECORDS SUMMARY | ~2019-10-02 | XMS | Encounter Summary ---
Demographics + + + | Address | [address] | | | [place] [address] | + + + | Home Phone | | + + + | Preferred Language | Unknown | + + + | Marital Status | Single | + + + | Voodoo Affiliation | 1041 | + + + | Race | Unknown | + + + | Ethnic Group | Unknown | + + + Author + + + | Author | [facility] | | | and [place] | + + + | Organization | [facility] | | | and [place] | + + + | Address | Unknown | + + + | Phone | Unavailable | + + + Support + + + + + | Name | Relationship | Address | Phone | + + + + + | Kyaw Woodson | ECON | [place], [place] | | + + + + + | Barbara Cabrera | ECON | Unknown | | + + + + + | Dimple Hathaway | ECON | Unknown | | + + + + + Care Team Providers + +------+ + | Care Product Development Intern Name | Role | Phone | + +------+ + | No, Physician | PCP | Unavailable | + +------+ + Encounter Details +--------+ + + + + | Date | Type | Department | Care Team | Description | +--------+ + + + + | 06/14/ | Hospital | [facility] | Conversion | Diagnosis unknown | | 2015 | Encounter | [address]VERSION [address] | Transaction, | | | | | [address] | Provider Unknown | | | | | [place], [place] | [phone] | | | | | [address] | | | | | | [phone] | | | +--------+ + + + [...] [address] | | | | | | [facility] | | | | | | [place] | | | | | | [address] | | | | | | | [...] 206 | | | | | | [place] [address] | | | | | | [phone] | | | | | | | | +--------+ + + + + | 11/25/ | Office | Nephrology | Kei Arthur MD | | | 2019 | Visit | | [address] [facility] | | | | | | [address] [place] | | | | | | [address] | | | | | | | [...]
--- OUTSIDE RECORDS SUMMARY | ~2019-10-02 | XMS | Encounter Summary ---
Demographics + + + | Address | [address] | | | [place] [address] | + + + | Home Phone | | + + + | Preferred Language | Unknown | + + + | Marital Status | Single | + + + | Latter-Day Affiliation | 1041 | + + + | Race | Unknown | + + + | Ethnic Group | Unknown | + + + Author + + + | Author | [facility] | | | and [place] | + + + | Organization | [facility] | | | and [place] | + + + | Address | Unknown | + + + | Phone | Unavailable | + + + Support + + + + + | Name | Relationship | Address | Phone | + + + + + | Kyaw Woodson | ECON | [place], [place] | | + + + + + | Barbara Cabrera | ECON | Unknown | | + + + + + | Dimple Hathaway | ECON | Unknown | | + + + + + Care Team Providers + +------+ + | Care Middleware Solutions Architect Name | Role | Phone | + +------+ + | No, Physician | PCP | Unavailable | + +------+ + Encounter Details +--------+ + + + + | Date | Type | Department | Care Team | Description | +--------+ + + + + | 05/31/ | Orders Only | [facility] | Kei Arthur MD | | | 2018 | | NEPHROLOGY [place] | [address] | | | | | [address] [place] | [address] [place], [place] | | | | | [address] [facility] [place] | [address] | | | | | [address] | | | | | | [phone] | | | +--------+ + + + [...] [address] | | | | | | [address] | | | | | | | [...] | | | | | [place] [address] | | | | | | [phone] | | | | | | | | +--------+ + + + + | 11/25/ | Office | Nephrology | Kei Arthur MD | | | 2019 | Visit | | [address] [facility] | | | | | | [address] [place] | | | | | | [address] | | | | | | | | +--------+ + + + + documented as of this encounter Procedures + +--------+ + + + | Procedure Name | Priori | Date/Time | Associated Diagnosis | Comments | | | ty | | | | + +--------+ + + + | RENAL FUNCTION PANEL | Routin | 05/31/2018 | | Results for this | | | e | 8:25 AM | | procedure are in the | | | | PDT | | results section. | + +--------+ + + + documented in this encounter Results Renal Function Panel (05/31/2018 8:25 AM PDT) + + + + + + | Component | Value | Ref Range | Performed | Pathologist | | | | | At | Signature | + + + + + + | Glucose, | 158 (A) | 70 - 100 mg/dL | EXTERNAL | | | Fasting | | | LAB | | + + + + + + | BUN | 46 (A) | 6 - 23 mg/dL | EXTERNAL | | | | | | LAB | | + + + + + + | Creatinine | 3.07 (A) | 0.6 - 1.35 | EXTERNAL | | | | | mg/dL | LAB | | + + + + + + | PHOSPHORUS | 4.6 | 2.5 - 5.0 mg/dL | EXTERNAL [...] | | | LAB | | | [facility] | | | | | + + + + + + | Phosphorus, | | | EXTERNAL | | | Inorganic | | | LAB | | + + + + + + | BUN/Creatin | 15.0 | 6.0 - 28.6 | EXTERNAL | [...]
--- OUTSIDE RECORDS SUMMARY | ~2019-10-02 | XMS | Encounter Summary ---
Demographics + + + | Address | [address] | | | [place] [address] | + + + | Home Phone | | + + + | Preferred Language | Unknown | + + + | Marital Status | Single | + + + | Mandaen Affiliation | 1041 | + + + | Race | Unknown | + + + | Ethnic Group | Unknown | + + + Author + + + | Author | [facility] | | | and [place] | + + + | Organization | [facility] | | | and [place] | + + + | Address | Unknown | + + + | Phone | Unavailable | + + + Support + + + + + | Name | Relationship | Address | Phone | + + + + + | Kyaw Woodson | ECON | [place], [place] | | + + + + + | Barbara Cabrera | ECON | Unknown | | + + + + + | Dimple Hathaway | ECON | Unknown | | + + + + + Care Team Providers + +------+ + | Care Children'S Ministries Director Name | Role | Phone | + +------+ + | No, Physician | PCP | Unavailable | + +------+ + Encounter Details +--------+ + + + + | Date | Type | Department | Care Team | Description | +--------+ + + + + | 05/15/ | Hospital | [facility] | Bryant Lincoln | Other symptoms | | 2013 | Encounter | [facility] ULTR[facility]OUND | MD [address] | involving | | | | [address] [place] | [facility] | cardiovascular | | | | [place], [place] | [place] [address] | system (Primary Dx); | | | | [address] | [phone] | Other peripheral | | | | [phone] | | vascular | | | | | Alia Marie, | disease(504.58) | | | | | Technologist | ([facility]) | +--------+ + + + + Social [...] [place] | | | | | | [address] | | | | | | | [...] | | | | | [place] [address] | | | | | | [phone] | | | | | | | | +--------+ + + + + | 11/25/ | Office | Nephrology | Kei Arthur MD | | | 2019 | Visit | | [address] [facility] | | | | | | [address] [place] | | | | | | [address] | | | | | | | [...] disease(443.89) | | | | | | ([facility]) | | + +--------+ + + + [...] + | MISCELLANEOUS LAB | | | [phone] | + +---------+ + + | MISCELANIOUS LAB | | | [phone] | + +---------+ + + documented in this encounter Visit Diagnoses + + | Diagnosis | + + | Other symptoms involving cardiovascular system - Primary | + + | Other peripheral vascular disease(443.89) Other peripheral vascular disease | + + documented in this encounter"
--- OUTSIDE RECORDS SUMMARY | ~2019-10-02 | XMS | Encounter Summary ---
Demographics + + + | Address | [address] | | | [place] [address] | + + + | Home Phone [...] | [facility] | | | and [place] | + + + | Address | Unknown | + + + | Phone | Unavailable | + + + Support + + + + + | Name | Relationship | Address | Phone | + + + + + | Kyaw Woodson | ECON | [place], [place] | | + + + + + | Barbara Cabrera | ECON | Unknown | | + + + + + | Dimple Hathaway | ECON | Unknown | | + + + + + Care Team Providers + +------+ + | Care Anesthetic Assistant Name | Role | Phone | + +------+ + | Jennyfer Gresham MD | PCP | | + +------+ + Encounter Details +--------+ + + + + | Date | Type | Department | Care Team | Description | +--------+ + + + + | 08/25/ | Orders Only | [facility] | Conversion | | | 2015 | | CONVERSION [address] | Transaction, | | | | | [address] | Provider Unknown | | | | | [place], [place] | [phone] | | | | | [address] | | | | | | [phone] | | | +--------+ + + + [...] [address] | | | | | | [facility] | | | | | | [place] | | | | | | [phone] | | | | | | | [...] | | | | | [place] [address] | | | | | | [phone] | | | | | | | | +--------+ + + + + | 11/25/ | Office | Nephrology | Kei Arthur MD | | | 2019 | Visit | | [address] [facility] | | | | | | [address] [place] | | | | | | [id number] | | | | | | | | +--------+ + + + + documented as of this encounter Visit Diagnoses Not on filedocumented in this encounter"
--- OUTSIDE RECORDS SUMMARY | ~2019-10-02 | XMS | Encounter Summary ---
Demographics + + + | Address | [address] | | | [place] [address] | + + + | Home Phone | | + + + | Preferred Language | Unknown | + + + | Marital Status | Single | + + + | Faith Affiliation | 1041 | + + + | Race | Unknown | + + + | Ethnic Group | Unknown | + + + Author + + + | Author | [facility] | | | and [place] | + + + | Organization | [facility] | | | and [place] | + + + | Address | Unknown | + + + | Phone | Unavailable | + + + Support + + + + + | Name | Relationship | Address | Phone | + + + + + | Kyaw Woodson | ECON | [place], [place] | | + + + + + | Barbara Cabrera | ECON | Unknown | | + + + + + | Dimple Hathaway | ECON | Unknown | | + + + + + Care Team Providers + +------+ + | Care Asp Net Software Developer Name | Role | Phone | [...] + + | 05/10/ | Office | [facility] | Ro Breen DNP | PAD (peripheral | | 2019 | Visit | VASCULAR SURGERY | [address] | artery disease) | | | | [address] | [place], [place] | ([facility]) (Primary Dx); | | | | [place], [place] | [address] | S/P AKA (above knee | | | | [address] | | amputation), right | | | | [phone] | | (HCC) | +--------+---------+ + + [...] Breen Si, DNP - 05/10/2019 10:00 AM [facility] [address] [place] [address] [place] [address] Office: [phone] DATE OF VISIT: 05/10/2019 PATIENT NAME: Alondra Caballero : 1970; AGE: 49 y.o.; Sex:F PHONE NUMBER: ; ; PROVIDER: Ro Breen DNP PRIMARY CARE / REFERRING PHYSICIAN: No ref. provider found / Daniel Land NP / [address] [facility] [address] / [place] [address] REASON FOR EVALUATION / CHIEF COMPLAINT: Vascular Surgery Postoperative Visit for righ t [id number] The patient presents today for a Vascular Surgery Postoperative Visit. The patient is statu s post right [id number], which was performed on 04/14/2019 at the [...] [place] | | | | | | [address] | | | | | | | [...] | | | | | [place] [address] | | | | | | [phone] | | | | | | | | +--------+ + + + + | 11/25/ | Office | Nephrology | Kei Arthur MD | | | 2019 | Visit | | [address] [facility] | | | | | | [address] [place] | | | | | | [address] | | | | | | | [...]
--- OUTSIDE RECORDS SUMMARY | ~2019-10-02 | XMS | Encounter Summary ---
Demographics + + + | Address | [address] | | | [place] [address] | + + + | Home Phone | | + + + | Preferred Language | Unknown | + + + | Marital Status | Single | + + + | Mormonism Affiliation | 1041 | + + + | Race | Unknown | + + + | Ethnic Group | Unknown | + + + Author + + + | Author | [facility] | | | and [place] | + + + | Organization | [facility] | | | and [place] | + + + | Address | Unknown | + + + | Phone | Unavailable | + + + Support + + + + + | Name | Relationship | Address | Phone | + + + + + | Kyaw Woodson | ECON | [place], [place] | | + + + + + | Barbara Cabrera | ECON | Unknown | | + + + + + | Dimple Hathaway | ECON | Unknown | | + + + + + Care Team Providers + +------+ + | Care Educational Assistant Teacher Name | Role | Phone | + +------+ + | Jennyfer Gresham MD | PCP | | + +------+ + Encounter Details +--------+ + + + + | Date | Type | Department | Care Team | Description | +--------+ + + + + | 06/22/ | Orders Only | [facility] | Rick Mast, | | | 2017 | | NEPHROLOGY [place] | BLACK TOP PAVER OPERATOR [address] | | | | | [address] [facility] | [address] | | | | | [place] | [place] | | | | | [address] | [address] | | | | | [phone] | [phone] | | | | | | | [...] [address] | | | | | | [facility] | | | | | | [place] | | | | | | [address] | | | | | | | [...] [address] | | | | | | [facility] [place] [address] | | | | | | [phone] | | | | | | | | +--------+ + + + + | 11/25/ | Office | Nephrology | Kei Arthur MD | | | 2019 | Visit | | [address] [facility] | | | | | | [address] [place] | | | | | | [address] | | | | | | | | +--------+ + + + + documented as of this encounter Visit Diagnoses Not on filedocumented in this encounter"
--- OUTSIDE RECORDS SUMMARY | ~2019-10-02 | XMS | Encounter Summary ---
Demographics + + + | Address | [address] | | | [place] [address] | + + + | Home Phone | | + + + | Preferred Language | Unknown | + + + | Marital Status | Single | + + + | Mandaeism Affiliation | 1041 | + + + | Race | Unknown | + + + | Ethnic Group | Unknown | + + + Author + + + | Author | [facility] | | | and [place] | + + + | Organization | [facility] | | | and [place] | + + + | Address | Unknown | + + + | Phone | Unavailable | + + + Support + + + + + | Name | Relationship | Address | Phone | + + + + + | Kyaw Woodson | ECON | [place], [place] | | + + + + + | Barbara Cabrera | ECON | Unknown | | + + + + + | Dimple Hathaway | ECON | Unknown | | + + + + + Care Team Providers + +------+ + | Care Composition Floor Setter Name | Role | Phone | + +------+ + | Daniel Land NP | PCP | | + +------+ + Encounter Details +--------+ + + + + | Date | Type | Department | Care Team | Description | +--------+ + + + + | 05/11/ | Orders Only | [facility] | Char Veliz | Bacteremia (Primary | | 2019 | | INFECTIOUS DISEASE | Jennifer Giraldo MD | Dx) | | | | [address] | [address] | | | | | [place], [place] | [place] [address] | | | | | [address] | [phone] | | | | | [phone] | | | +--------+ + + + [...] [place] | | | | | | [address] | | | | | | | [...] | | | | | [place] [address] | | | | | | [phone] | | | | | | | | +--------+ + + + + | 11/25/ | Office | Nephrology | Kei Arthur MD | | | 2019 | Visit | | [address] [facility] [address] | | | | | | [address] [place] | | | | | | [address] | | | | | | | | +--------+ + + + + documented as of this encounter Visit Diagnoses + + | Diagnosis | + + | Bacteremia - Primary | + + documented in this encounter"
--- OUTSIDE RECORDS SUMMARY | ~2019-10-02 | XMS | Encounter Summary ---
Demographics + + + | Address | [address] | | | [place] [address] | + + + | Home Phone [...] Organization | [facility] | | | and [place] | + + + | Address | Unknown | + + + | Phone | Unavailable | + + + Support + + + + + | Name | Relationship | Address | Phone | + + + + + | Kyaw Woodson | ECON | [place], [place] | | + + + + + | Barbara Cabrera | ECON | Unknown | | + + + + + | Dimple Hathaway | ECON | Unknown | | + + + + + Care Team Providers + +------+ + | Care Sports Centre Manager Name | Role | Phone | + +------+ + | No, Physician | PCP | Unavailable | + +------+ + Encounter Details +--------+ + + + + | Date | Type | Department | Care Team | Description | +--------+ + + + + | 06/14/ | Hospital | [facility] | Genesis Sims, | Unknown cause of | | 2016 - | Encounter | [facility] | [address] | injury | | | | CARE [address]LO[address] | [facility] | | | 06/18/ | | ROXANNE JONES | [place] [address] | | | 2016 | | [place], [place] | [phone] | | | | | [address] | | | | | | [phone] | | | +--------+ + + + [...] + + + | Blood Pressure | 115/67 | 06/18/2016 12:50 PM | | | | | PDT | | + + + + + | Pulse | 85 | 06/18/2016 12:50 PM | | | | | PDT | | + + + + + | Temperature | 36.5 C (97.7 F) | 06/18/2016 12:50 PM | | | | | PDT | | + + + + + | Respiratory Rate | 18 | 06/18/2016 12:50 PM | | | | | PDT | | + + + + + | Oxygen Saturation | - | - | | + + + + + | Inhaled Oxygen | - | - | | | Concentration | | | | + + + + + | Weight | 110 kg (242 lb 8.2 | 06/18/2016 12:50 PM | | | | oz) | PDT | | + + + + + | Height | 177.8 cm (5' 10") | 06/18/2016 12:50 PM | | | | | PDT | | + + + + + | Body Mass Index | 34.8 | 06/18/2016 12:50 PM | | | | | PDT | | + + + + + documented in this encounter Discharge Summaries Nishant Orta MD - 06/18/2016 7:41 AM PDT Discharge Summaries by Nishant Orta MD at 06/18/16 0741 Author: Nishant Orta MD Service: Hospitalist Author Type: Physician Filed: 06/18/16 1301 Date of Service: 06/18/16 0741 Status: Addendum Railroad Car Letterer: Nishant Orta MD (Physician) Related Notes: Original Note by Nishant Orta MD (Physician) filed at 06/18/16 1154 [facility] Service: Hospitalist Discharge Summary Date of Admission: 06/14/2016 Date of Discharge: 06/18/2016 Discharge Provider: Nishant Orta MD Treatment Team: Consulting Physician: Vani Cabral MD Consulting Physician: Alfredito Louis MD Admitting Provider: Nishant Orta MD Discharge Diagnoses: Principal Problem: ERICK (acute kidney injury) (HCC) Active Problems: Essential hypertension, benign Amputated below knee (HCC) CKD (chronic kidney disease), stage IV (HCC) Abrasion Pressure sore Type II diabetes mellitus (HCC) Resolved Problems: * No resolved hospital problems. * Procedures: * No surgery found * BRIEF HISTORY OF PRESENTATION: Alondra Caballero is a 46 y.o. female who HOSPITAL COURSE: Events Overnight: 06/15/2016 pt was worried with her blood sugar. 06/16 patient without any GI bleeding at this time. Hemoglobin relatively stable. Kidney sta tus however has not improved but is stable. 06/17: Long discussion regarding her hospital course. She informed journeyman meat cutter that she had blood in the stool. However she did not inform me of this. I also informed her of her normal bowel movement yesterday. Also informed her of my c onversation with nurse Ileana at that there was blood with wiping of her vaginal area twice. Patient however is upset that she did not receive what she was informed about. Apparently s he was told to come here for workup of GI bleed and that she would get a colonoscopy.. I inf ormed her that I have to rule out GI bleed with monitoring of her blood count and monitoring of her stool output. Informed her that if she was bleeding it would have been present in he r bowel movements. Also informed her that if there is high evidence of GI bleed then I wou ld consult GI for colonoscopy. At this time there is very little evidence that she has under lying GI bleed. Pt's condition stable. ERICK is still persistent. Will continue to follow. Clerical Administrator is al so following pt. Will also consult nephrology. I spoke with dr. Cabral for assistance. GIB? Probably from hemorrhoiddal bleed. T1DM: BS still elevated, will resume insulin levemir. HTN: BP stable/controlled. 06/16: Acute kidney injury: Stable. Consult did Dr. Cabral yesterday. Discussed with him sherley kumar and he recommended GI consultation. I informed him that I will have GI consultation onc e GI bleed is confirmed. Anemia could be multifactorial, and from hemorrhoidal bleed. Multiple pressure ulcers unstageable and present prior to admission, of left knee and right side of the abdomen. Abrasion of right knee. Wound care is still seeing patient. The rest of her medical issues are stable at this time. Type 2 diabetes: Diabetic education did see patient. Monitor hemoglobin. Monitor renal stat us. 06/17: Patient with large wound bowel movement yesterday without mention of dark tarry stool . No evidence of GI bleed at this time. There is for no need for GI consultation. Patient al so has positive blood possibly from vaginal source. Therefore recommend outpatient FISH CULTURIST co nsultation for endometrial biopsy in a postmenopausal female. Morbid obesity; 06/18: Discussion with patient yesterday regarding multiple issues. #1 being her bleeding. Per nursing patient had large normal bowel movement the day before y . At that time she wanted to leave and had a convinced to stay overnight. On my enco unter the next day which is yesterday patient was upset but nothing is being done despite we aring to leave yesterday. She informed the journeyman meat cutter that she had bleeding again did not informed this to me. #2 Nursing also informed me that she found clots of blood in the vaginal area and I address ed my concern that she may need a hysteroscopy or FISH CULTURIST follow-up. She informed me that she will discuss this with Dr. Doyle or journeyman meat cutter. She will set that she was sent over from [facility] expecting a colonoscopy or GI workup. I informed her that we have to rule out GI bleed before any consultation. Her H and H has been stable throughout the hospital stay and did not require any blood elise sfusion. She had no bright red blood per rectum. She had no hematemesis. Her vitals remained stable without the hospital stay. #3: Pain. She complaining of her kidney pain. Her pain is in the back. She have to lift her back up off the bed to help with the pain. I informed her that from it is most likely of mu scle skeletal and back pain. She insisted it was her kidney pain. #4: Chronic kidney disease with acute kidney injury: Has been improving slowly. No interven tions from nephrology during the hospital stay. Patient can continue to follow outpatient ne phrology. Stop torsemide for now and can resume once renal status is maximized. Continue wit h spironolactone. #4; multiple areas of abrasions and pressure ulcer right abdominal area: continue with woun d dressing change of right knee every 3 days and other areas every day. Done via home health . Medication changes: We will try to minimize her polypharmacy. Also need to stop her lyrica secondary to renal insufficiency. Will also hold spironolactone and Demadex secondary to aga in acute kidney injury. This can be resumed by nephrology and an outpatient basis. We will need to check BMP in 1 week. Recommended follow-up with GI outpatient for colonosco py if warranted Recommended follow-up with FISH CULTURIST for hysteroscopy and are endometrial biopsy secondary to possible bleeding postmenopausal. I discussed with Dr. Arthur regarding the above issues and our plans. Hospital records reviewed. Labs and radiologic studies and reports reviewed. Discussed find ings with participating physicians. Old records reviewed on EMR. Past Medical History Diagnosis Date Hyperlipidemia Hypertension Pneumonia CHF (congestive heart failure) (HCC) Old myocardial infarction Seizures ([facility]) Meth induced seizure two years ago CAD (coronary artery disease) 10/05/2012 Depressed Anxiety Psychiatric disorder Diabetes mellitus, type 2 (HCC) CKD (chronic kidney disease), stage IV ([facility]) 06/02/2015 Past Surgical History Procedure Laterality Date Below knee leg amputation left Laparotomy oopherectomy left Cholecystectomy Tubal ligation Cardiac pacemaker removal 2012 Pacemaker replacement Pacemaker insertion 11/2012 Finger amputation Left middle finger Allergies Allergen Reactions Morphine And Related Hives and Rash Sulfacetamide Hives Sulfamethoxazole-Trimethoprim Hives Demerol [Meperidine] Rash Latex Other (See Comments) Hives Methadone Other (See Comments) Stomach pains,shaky Sulfa Antibiotics Rash Vicodin [Hydrocodone-Acetaminophen] Rash Ciprofloxacin Nausea and Vomiting Prescriptions prior to admission Medication Sig Dispense Refill Last Dose acetaminophen (TYLENOL) 500 MG tablet Take 500 mg by mouth every 6 (six) hours as neede d for Pain. Taking ascorbic acid (VITAMIN C) 1000 MG tablet Take 1,000 mg by mouth daily. aspirin 81 MG chewable tablet Take 81 mg by mouth daily. Taking atorvastatin (LIPITOR) 40 MG tablet Take 40 mg by mouth nightly. Taking B complex vitamins tablet Take 1 tablet by mouth daily. Taking cetirizine (ZYRTEC) 10 MG tablet Take 10 mg by mouth daily. Not Taking Cholecalciferol (VITAMIN D-3) 5000 UNITS TABS Take 1 tablet by mouth daily. Taking dexlansoprazole (DEXILANT) 60 MG capsule Take 60 mg by mouth every morning before break fast. Taking fenofibrate (TRICOR) 160 MG tablet Take 160 mg by mouth daily. Taking insulin aspart (NOVOLOG) 100 UNIT/ML injection Inject 25 Units into the skin 4 (four) t imes daily. Sliding scale Taking insulin detemir (LEVEMIR) 100 UNIT/ML injection Inject 150 Units into the skin 2 (two) times daily. Patient states that she takes 80 units in the morning and 60 units at night. Taking metoprolol (TOPROL-XL) 50 MG 24 hr tablet Take 1.5 tablets by mouth daily. 135 tablet 1 Taking Multiple Vitamin (MULTIVITAMIN) tablet Take 1 tablet by mouth daily. Taking PROAIR HFA 108 (90 BASE) MCG/ACT inhaler Inhale 2 puffs into the lungs every 4 (four) h ours as needed. Taking sodium bicarbonate 650 MG tablet Take 1 tablet by mouth 3 (three) times daily. (Patient taking differently: Take 1,300 mg by mouth 4 (four) times daily. Taking two tablets four ti mes daily.) 100 tablet 11 Taking venlafaxine (EFFEXOR-XR) 75 MG 24 hr capsule Take 225 mg by mouth daily. Taking DISCHARGE EXAM Vital Signs: BP 115/67 mmHg | Pulse 85 | Temp(Src) 97.7 F (36.5 C) (Oral) | Resp 18 | Ht 1.778 m (5' 10") | Wt 110 kg (242 lb 8.1 oz) | BMI 34.80 kg/m2 | SpO2 95% | LMP 10/04/2011 | Breastfeed ing? No General Appearance: Encountered patient in room 4442 sitting in bed. Nursing at bedside. No apparent distress. Conversive and appropriate to place and person. HEENT: Normocephalic, atraumatic, pupils EOMI, PERRLA. Nose: no septal deviation or dischar ge noted. Ears: normal size, location, and contour. Throat dry and without exudates. NECK: is supple, full ROM, nontender. LUNGS: relatively clear to auscultation bilaterally with no obvious wheezing, No rales or r honchi audible. HEART: S1S2, Regular rate and rhythm without murmurs, gallops or rubs. ABDOMEN: obese. Nondistended. Bowel sound is normoactive, abdomen is soft, non-tender non-d istended ,no mass palpable. EXTREMITIES: left BKA. No prosthetic on at this time. 1+ right lower extermity edema, Muscl e strength adequate. left and right knee abrasions covered with dressing, along with skin pressure injury right abdomen. NEURO: Cranial Nerves 2-12 appears intact, Gait not tested, PSYCH: Alert, awake and Oriented x3. SKIN: No significant bruises, rashes, lesions, or ulcers. DATA Recent Labs Lab 06/17/16 0420 06/16/16 0435 06/15/16 0445 WBC 8.39 9.32 9.73 RBC 3.26* 3.16* 3.47* HGB 8.2* 8.0* 8.7* HCT 25.8* 24.6* 27.4* MCV 79.3* 77.8* 79.1* MCH 25.3* 25.2* 25.1* MCHC 31.9* 32.4 31.7* RDW 51.2 51.2 51.2 PLT 205 234 232 MPV 9.9 9.6 10.0 NEUTOPHILPCT -- -- 74.56 MONOPCT -- -- 4.54 Recent Labs Lab 06/18/16 0343 06/16/16 0435 06/15/16 0445 NA 135 < > 136 137 K 4.0 < > 4.1 4.3 CL 99 < > 98* 101 CO2 27 < > 28 26 ANIONGAP 13 < > 14 14 GLUF 121* < > 143* 186* BUN 58* < > 54* 51* CREATININE 3.2* < > 3.6* 3.6* BCR 18 < > 15 14 CA 9.0 < > 9.2 8.8 ALB -- -- 3.7 -- GLOB -- -- 4.4 -- PROT -- -- 8.1 -- BILITOT -- -- 0.9 -- ALT -- -- 24 -- AST -- -- 26 -- EGFR 17* < > 15* 15* PHOS -- -- -- 4.0 MG -- -- -- 2.4 < > = values in this interval not displayed. No results for input(s): HGBA1C, LABGLYC in the last 168 hours. No results for input(s): APTT, INR, PTT in the last 168 hours. No results for input(s): TSH, T3FREE, FREET4 in the last 168 hours. No results for input(s): CKTOTAL, TROPONINI, TROPONINT, CKMBINDEX in the last 168 hours. HDL CHOL Date Value Ref Range Status 08/27/2015 28.7* 40 mg/dl Final CHOLESTEROL Date Value Ref Range Status 08/27/2015 289* 200 mg/dL Final CHOL/HDL Date Value Ref Range Status 08/27/2015 10.1* 4.44 Final NON HDL CHOL Date Value Ref Range Status 08/27/2015 260* 130 Final Us Kidneys And Bladder 06/15/2016 EXAM: RENAL ULTRASOUND EXAM DATE: 06/15/2016 12:36 AM. CLINICAL HISTORY: Pelvi c pain. Hematuria. COMPARISON: None. TECHNIQUE: Real-time scanning was performed with stat ic images obtained. FINDINGS: Right Kidney: 9.2 x 4.2 x 5.4 cm. Normal echotexture with n o stones, contour-deforming masses, or hydronephrosis. Left Kidney: 8.7 x 5.2 x 4.5 cm. No rmal echotexture with no stones, contour-deforming masses, or hydronephrosis. Bladder: Rig ht ureteral jet was visualized. Left ureteral jet was not visualized. The bladder volume was 51 cc. The patient voided immediately prior to the exam. 06/15/2016 1. No hydronephrosis seen. No obvious mass. 2. Decompressed urinary bladder me asuring 51 cc. Right ureteral jet was visualized in the bladder. Left jet was not visualized . RADIA Electronically signed by Sly Andres MD on Jun 15 2016 2:41AM Referring Provide r Line: [phone] ID: [id number] PLAN Discharge to home in stable condition. Code Status: Full Code No discharge procedures on file. Follow up: Ifeanyi Call MD [address] [place] [address] Follow up on 06/23/2016 You have an appoinment with Dr. Call on 06/23/2016 at 11:00 am. [facility] [address] [facility], [address] [facility] [address] Follow up in 1 week(s) postmenopausal bleeding? Steven Deleon IV, MD [address] [place] [id number] As needed Kei Arthur MD [address] [facility] [address] Follow up in 1 week(s) July 05 @ 1220 Labs 06/21 Renal function panel 06/28: Renal function panel, Magnesium, H&H, Ferritin, Uric Acid, PTH, Urinalysis, Urine to raven protien to creatinine ratio. Medication List START taking these medications DSS 100 MG Caps QTY: 30 capsule Refills: 0 Take 100 mg by mouth daily. oxyCODONE 5 MG immediate release tablet QTY: 30 tablet Refills: 0 Commonly known as: ROXICODONE Take 1 tablet by mouth every 4 (four) hours as needed for Pain (take 1-2 tab prn pain.). polyethylene glycol packet QTY: 510 g Refills: 0 Commonly known as: GLYCOLAX Take 17 g by mouth daily. CHANGE how you take these medications sodium bicarbonate 650 MG tablet QTY: 100 tablet Refills: 11 Take 1 tablet by mouth 3 (three) times daily. What changed: - how much to take - when to take this - additional instructions spironolactone 25 MG tablet QTY: 2 tablet Refills: 0 Commonly known as: ALDACTONE Take 1 tablet by mouth 2 (two) times daily. What changed: medication strength CONTINUE taking these medications acetaminophen 500 MG tablet Refills: 0 Commonly known as: TYLENOL ascorbic acid 1000 MG tablet Refills: 0 Commonly known as: VITAMIN C aspirin 81 MG chewable tablet Refills: 0 atorvastatin 40 MG tablet Refills: 0 Commonly known as: LIPITOR B complex vitamins tablet Refills: 0 cetirizine 10 MG tablet Refills: 0 Commonly known as: ZyrTEC dexlansoprazole 60 MG capsule Refills: 0 Commonly known as: DEXILANT fenofibrate 160 MG tablet Refills: 0 Commonly known as: TRIGLIDE insulin aspart 100 UNIT/ML injection Refills: 0 Commonly known as: NOVOLOG insulin detemir 100 UNIT/ML injection Refills: 0 Commonly known as: LEVEMIR metoprolol 50 MG 24 hr tablet QTY: 135 tablet Refills: 1 Commonly known as: TOPROL-XL Take 1.5 tablets by mouth daily. multivitamin tablet Refills: 0 PROAIR HFA 108 (90 BASE) MCG/ACT inhaler Refills: 0 Generic drug: albuterol venlafaxine 75 MG 24 hr capsule Refills: 0 Commonly known as: EFFEXOR-XR Vitamin D-3 5000 UNITS Tabs Refills: 0 STOP taking these medications hydrOXYzine 50 MG capsule Commonly known as: VISTARIL levofloxacin 500 MG tablet Commonly known as: LEVAQUIN LYRICA 100 MG capsule Generic drug: pregabalin LYRICA 200 MG capsule Generic drug: pregabalin niacin 50 MG tablet potassium chloride 10 MEQ tablet Commonly known as: K-DUR pregabalin 50 MG capsule Commonly known as: LYRICA torsemide 20 MG tablet Commonly known as: DEMADEX Where to Get Your Medications These are the prescriptions that you need to supervisor opening and picking. You may get the following medications from any pharmacy - DSS 100 MG Caps - oxyCODONE 5 MG immediate release tablet - polyethylene glycol packet - spironolactone 25 MG tablet Discharge took 47 minutes, to include final examination, discussion of admission, and prepa ration of prescriptions, instructions for on-going care, follow-up and documentation of disc harge summary. Nishant Orta MD 06/18/2016 [place]in [place] in this encounter Medications at Time [...] as of this encounter Progress Notes Danielito Bragg ARNP - 06/18/2016 12:52 PM PDT Nurse Progress Note by Danielito Bragg RN at 06/18/16 1257 Author: Danielito Bragg RN Service: (none) Author Type: Registered Nurse Filed: 06/18/16 3751 Date of Service: 06/18/161251 Status: Signed Railroad Car Letterer: Danielito Bragg RN (Registered Nurse) Pt. Discharged home. Pt. Unable to fit into her own shorts, provided 5XL scrub bottoms for patient discharge. Discharge instructions, education and prescriptions reviewed with pt. Pt. Verbalized understanding with no questions. Copies of discharge instructions and prescr iptions provided to pt. Pt. Left floor via wheelchair with aid to be transported home via p ublic transportation. Pt. Stable with no acute observations. onversion Trans action, Provider Unknown - 06/18/2016 12:13 PM PDT Case Management by Candida Perez RN at 06/18/161212 Author: Candida Perez RN Service: (none) Author Type: Registered Nurse Filed: 06/18/167 Date of Service: 06/18/161212 Status: Signed Railroad Car Letterer: Candida Perez RN (Registered Nurse) Discharge planning: CM faxed AVS, Discharge Summary and signed Rx for wound care to [facility] [phone]. CM will FU. CM is awaiting call from Medical Transportation [phone] for time of transport. Alfredito Kaur MD - 06/18/2016 9:29 AM PDTFormatting of this note might be different from th e original. Progress Notes by Alfredito Louis MD at 06/18/16928 Author: Alfredito Louis MD Service: Nephrology Author Type: Physician Filed: 06/19/16 0128 Date of Service: 06/18/16928 Status: Signed Railroad Car Letterer: Alfredito Louis MD (Physician) [facility] Service: NEPHROLOGY Progress Note Alondra Caballero 46 y.o. [phone] [id number] female [facility] Day: LOS: 4 days Patient with PMH HTN, DM-2, CKD admitted with Anemia/ possible GI bleed Nephrology consulted for evaluation and management of ARF on CKD ACUTE on CHRONIC SEVERE ASSOCIATED WITH FLUID ELECTROLYTE IMBALANCES RF: In the setting of Anemia SUBJECTIVE Patient seen and examined. SAYS FEEL WEAK DENIES CHEST PAIN, SOB, NAUSEA, VOMITING, DIARRHEA, FEVER, CHILLS, RASH, COUGH, HEADACHE Past Medical History Diagnosis Date Hyperlipidemia Hypertension Pneumonia CHF (congestive heart failure) (HCC) Old myocardial infarction Seizures (HCC) Meth induced seizure two years ago CAD (coronary artery disease) 10/05/2012 Depressed Anxiety Psychiatric disorder Diabetes mellitus, type 2 (HCC) CKD (chronic kidney disease), stage IV (HCC) 06/02/2015 Past Surgical History Procedure Laterality Date Below knee leg amputation left Laparotomy oopherectomy left Cholecystectomy Tubal ligation Cardiac pacemaker removal 2012 Pacemaker replacement Pacemaker insertion 11/2012 Finger amputation Left middle finger Family History Problem Relation Age of Onset Hypertension Mother Cancer Mother Diabetes type II Mother Cancer Father Prostate Diabetes type II Father Diabetes type II Sister Hypertension Brother Social History Social History Marital Status: Single Spouse Name: N/A Number of Children: N/A Years of Education: college Occupational History disabled Social History Main Topics Smoking status: Former Smoker -- 0.50 packs/day for 15 years Types: Cigarettes Quit date: 09/19/2015 Smokeless tobacco: Never Used Alcohol Use: No Drug Use: No Comment: 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 Sexual Activity: Not on file Other Topics Concern Not on file Social History Narrative Scheduled Medications ascorbic acid 1,000 mg Oral Daily atorvastatin 40 mg Oral Nightly collagenase Topical Daily docusate sodium 100 mg Oral Daily heparin (porcine) 5000 unit/0.5mL 5,000 Units Subcutaneous Q12H insulin detemir 60 Units Subcutaneous BID insulin lispro (human) 0-14 Units Subcutaneous TID AC insulin lispro (human) 0-7 Units Subcutaneous Nightly metoprolol 75 mg Oral Daily miconazole Topical BID multivitamin with minerals 1 tablet Oral Daily pantoprazole 40 mg Oral QAM AC polyethylene glycol 17 g Oral BID pregabalin 75 mg Oral BID venlafaxine 225 mg Oral Daily Continuous Infusions dextrose sodium chloride (IV) 75 mL/hr at 06/18/16 0508 PRN Medications acetaminophen OR acetaminophen, dextrose, dextrose, dextrose, glucagon, glucagon, HYDRO morphone OR HYDROmorphone, magnesium hydroxide, nystatin, ondansetron OR ondansetron , oxyCODONE OR oxyCODONE, polyethylene glycol, traMADol, zolpidem Allergy: Allergies Allergen Reactions Morphine And Related Hives and Rash Sulfacetamide Hives Sulfamethoxazole-Trimethoprim Hives Demerol [Meperidine] Rash Latex Other (See Comments) Hives Methadone Other (See Comments) Stomach pains,shaky Sulfa Antibiotics Rash Vicodin [Hydrocodone-Acetaminophen] Rash Ciprofloxacin Nausea and Vomiting OBJECTIVE Vital Signs: BP 107/70 mmHg | Pulse 92 | Temp(Src) 97.9 F (36.6 C) (Oral) | Resp 20 | Ht 1.778 m (5' 10") | Wt 110 kg (242 lb 8.1 oz) | BMI 34.80 kg/m2 | SpO2 94% | LMP 10/04/2011 | Breastfeed ing? No I&O Detailed Table: I/O last 3 completed shifts: In: 3912 [P.O.:765; I.V.:3147] Out: 3301 [Urine:3300; Blood:1] Weight change: 0.2 kg (7.1 oz) Examination: APPEARANCE: The patient is lying in no apparent distress. VITALS: Reviewed as listed. HEAD: NC/AT. EYES: Non-icteric sclera. +ve pale conjuctiva ENT: Buccal mucosa is moist. No gross ear or nasal problems noted. NECK: Supple. No raised JVD LUNGS: Clear to auscultation bilaterally. HEART: S1, S2, no pericardial rub noted. ABDOMEN: Full, soft, no tenderness. Bowel sounds are present. EXTREMITIES: +ve pedal RLE edema, L BKA noted. SKIN: Warm to touch. No rash noted. NEUROLOGIC: No gross focal motor deficit noted, no Asterixis. PSYCH: The patient is alert and oriented x 3, mood and affect looks ok BACK: no CVA tenderness noted LABS: Recent Results (from the past 24 hour(s)) POCT glucose Collection Time: 06/17/16 11:21 AM Result Value Ref Range GLUCOSE,POC SCREEN 167 (H) 65 - 99 mg/dL POCT glucose Collection Time: 06/17/16 4:31 PM Result Value Ref Range GLUCOSE,POC SCREEN 168 (H) 65 - 99 mg/dL POCT glucose Collection Time: 06/17/16 9:16 PM Result Value Ref Range GLUCOSE,POC SCREEN 188 (H) 65 - 99 mg/dL Basic metabolic panel Collection Time: 06/18/16 3:43 AM Result Value Ref Range SODIUM 135 135 - 145 mmol/L POTASSIUM 4.0 3.5 - 4.9 mmol/L CHLORIDE 99 99 - 109 mmol/L CO2 27 23 - 32 mmol/L ANION GAP AGAP 13 5 - 20 mmol/L GLUCOSE 121 (H) 65 - 99 mg/dL BUN 58 (H) 8 - 25 mg/dL CREATININE 3.2 (H) 0.50 - 1.00 mg/dL BUN/CREAT 18 CALCIUM 9.0 8.5 - 10.5 mg/dL EGFR 17 (L) >60 mL/min/1.73m2 [facility] 06/15/2016 EXAM: RENAL ULTRASOUND EXAM DATE: 06/15/2016 12:36 AM. CLINICAL HISTORY: Pelvi c pain. Hematuria. COMPARISON: None. TECHNIQUE: Real-time scanning was performed with stat ic images obtained. FINDINGS: Right Kidney: 9.2 x 4.2 x 5.4 cm. Normal echotexture with n o stones, contour-deforming masses, or hydronephrosis. Left Kidney: 8.7 x 5.2 x 4.5 cm. No rmal echotexture with no stones, contour-deforming masses, or hydronephrosis. Bladder: Rig ht ureteral jet was visualized. Left ureteral jet was not visualized. The bladder volume was 51 cc. The patient voided immediately prior to the exam. 06/15/2016 1. No hydronephrosis seen. No obvious mass. 2. Decompressed urinary bladder me asuring 51 cc. Right ureteral jet was visualized in the bladder. Left jet was not visualized . RADIA Electronically signed by Sly Andres MD on Jun 15 2016 2:41AM Referring Provide r Line: [id number] ID: [id number] PROBLEM LIST Principal Problem: ERICK (acute kidney injury) (HCC) Active Problems: Essential hypertension, benign Amputated below knee (HCC) CKD (chronic kidney disease), stage IV (HCC) Abrasion Pressure sore Type II diabetes mellitus (HCC) Renal failure (ARF), acute on chronic (HCC) Iron deficiency anemia Localized edema ASSESSMENT & PLAN ERICK on CKD (Cr was 2, Hb 10.5 in 03/04) Slowly improving likely in the setting of Anemia Ruled out HYDRONEPHROSIS per us renal reviewed STOP IV FLUIDS as getting edema no KAITLIN-I/ ARBS Urine studies reviewed US Renal Ruled out hydropnephrosis Strict I & O, Daily weights Daily RFP Renal diet AVOID NSAIDS/ HAYDEN-2 INHIBITORS AVOID NEPHROTOXIC MEDS INCLUDING AMINOGLYCOSIDES/ IV CONTRAST Assess daily for need for hd Dose all meds for crcl less than 15 mls/min Lab Results Component Value Date BUN 58* 06/18/2016 BUN 61* 06/17/2016 BUN 54* 06/16/2016 BUN 51* 06/15/2016 BUN 47* 06/07/2016 CREATININE 3.2* 06/18/2016 CREATININE 3.4* 06/17/2016 CREATININE 3.6* 06/16/2016 CREATININE 3.6* 06/15/2016 CREATININE 3.45* 06/07/2016 Intake/Output Summary (Last 24 hours) at 06/18/16928 Last data filed at 06/18/16922 Gross per 24 hour Intake 2668 ml Output 2150 ml Net 518 ml HYPERTENSION WATCH BP CLOSELY DURING HOSPITALIZATION LOW NA DIET Will adjust BP meds according to BP readings BP Readings from Last 3 Encounters: 06/18/16 107/70 06/07/16 109/70 03/24/16 86/46 ANEMIA IRON DEF IV IRON Watch hgb closely R.O GI BLEED per Hospitalist Check iron panel low iron sat Consider transfusion per primary team for hgb less than 7.0 Lab Results Component Value Date HGB 8.2* 06/17/2016 HGB 8.0* 06/16/2016 HGB 8.7* 06/15/2016 FERRITIN 360.8* 05/27/2016 FERRITIN 360.8* 05/27/2016 FERRITIN 827.3* 02/18/2016 LABIRON 9.1* 05/27/2016 LABIRON 9.1* 05/27/2016 LABIRON 17.6* 02/18/2016 EDEMA Stop iv fluids I have counselled the patient regarding low Na diet and its role in controlling leg swellin g. Low Na Diet 2 grams/24 hours. DM-2 OPTIMUM GLYCEMIC CONTROL PER PRIMARY TEAM CASE DISCUSSED IN DETAIL WITH PATIENT/ care team, ANSWERS ALL QUESTIONS IN DETAIL, VERBALIZ ES UNDERSTANDING ALFREDITO LOUIS MD 06/18/2016 Ifeanyi Call Seen earlier and charting completed later Dictation software, [employer] used which may contain error for similar sounding words even af ter review. Personal communication requested for any clarification. Portions of my notes may have been carried over for continuity of care. Danielito Borjas ARNP - 06/18/2016 7:39 AM PDT . Nurse Progress Note by Danielito Bragg RN at 06/18/16 0739 Author: Danielito Bragg RN Service: (none) Author Type: Registered Nurse Filed: 06/18/16 0740 Date of Service: 06/18/16 0739 Status: Signed Railroad Car Letterer: Danielito Bragg RN (Registered Nurse) Pt. Asleep upon entering room. In no apparent distress. Pt. Appears somewhat drowsy but r equests pain medication. Not given at this time. onversion Trans action, Provider Unknown - 06/17/2016 4:45 PM PDT Case Management by Candida Perez RN at 06/17/161644 Author: Candida Perez RN Service: (none) Author Type: Registered Nurse Filed: 06/17/161645 Date of Service: 06/17/161644 Status: Signed Railroad Car Letterer: Candida Perez RN (Registered Nurse) Pt will need help with transportation in AM, can use [facility] [phone]. M IM signed and copy placed in chart. Ines Dickinson MD - 06/17/2016 1:17 PM PDTFormatting of this note might be different from th e original. Progress Notes by Nishant Orta MD at 06/17/16 1317 Author: Nishant Orta MD Service: Hospitalist Author Type: Physician Filed: 06/17/16 1322 Date of Service: 06/17/16 1317 Status: Signed Railroad Car Letterer: Nishant Orta MD (Physician) [facility] Service: Hospitalist Progress Note Hospital Day: LOS: 3 days Post-Op Day: * No surgery found * SUBJECTIVE Patient Summary: pt admitted for ERICK on CKD with possible GIB. Events Overnight: 06/15/2016 pt was worried with her blood sugar. 06/16 patient without any GI bleeding at this time. Hemoglobin relatively stable. Kidney sta tus however has not improved but is stable. 06/17: Long discussion regarding her hospital course. She informed journeyman meat cutter that she had blood in the stool. However she did not inform me of this. I also informed her of her normal bowel movement yesterday. Also informed her of my c onversation with nurse Ileana at that there was blood with wiping of her vaginal area twice. Patient however is upset that she did not receive what she was informed about. Apparently s he was told to come here for workup of GI bleed and that she would get a colonoscopy.. I inf ormed her that I have to rule out GI bleed with monitoring of her blood count and monitoring of her stool output. Informed her that if she was bleeding it would have been present in he r bowel movements. Also informed her that if there is high evidence of GI bleed then I woul d consult GI for colonoscopy. At this time there is very little evidence that she has underl naz GI bleed. ROS: 12 point ROS reviewed and negative other than above. Scheduled Medications ascorbic acid 1,000 mg Oral Daily atorvastatin 40 mg Oral Nightly collagenase Topical Daily docusate sodium 100 mg Oral Daily iron gluconate 250 mg Intravenous Q24H heparin (porcine) 5000 unit/0.5mL 5,000 Units Subcutaneous Q12H insulin detemir 60 Units Subcutaneous BID insulin lispro (human) 0-14 Units Subcutaneous TID AC insulin lispro (human) 0-7 Units Subcutaneous Nightly metoprolol 75 mg Oral Daily miconazole Topical BID multivitamin with minerals 1 tablet Oral Daily pantoprazole 40 mg Oral QAM AC polyethylene glycol 17 g Oral BID pregabalin 75 mg Oral BID venlafaxine 225 mg Oral Daily Continuous Infusions dextrose sodium chloride (IV) 75 mL/hr at 06/17/16 0203 PRN Medications acetaminophen OR acetaminophen, dextrose, dextrose, dextrose, glucagon, glucagon, HYDRO morphone OR HYDROmorphone, magnesium hydroxide, nystatin, ondansetron OR ondansetron , oxyCODONE OR oxyCODONE, polyethylene glycol, traMADol, zolpidem OBJECTIVE Vital Signs: BP 100/55 mmHg | Pulse 71 | Temp(Src) 97.5 F (36.4 C) (Oral) | Resp 18 | Ht 1.778 m (5' 10") | Wt 109.8 kg (242 lb 1 oz) | BMI 34.73 kg/m2 | SpO2 98% | LMP 10/04/2011 | Breastfeed ing? No Physical Exam: General Appearance: Encountered patient in room 4442 sitting in bed. Nursing at bedside. No apparent distress. Conversive and appropriate to place and person. HEENT: Normocephalic, atraumatic, pupils EOMI, PERRLA. Nose: no septal deviation or dischar ge noted. Ears: normal size, location, and contour. Throat dry and without exudates. NECK: is supple, full ROM, nontender. LUNGS: relatively clear to auscultation bilaterally with no obvious wheezing, No rales or r honchi audible. HEART: S1S2, Regular rate and rhythm without murmurs, gallops or rubs. ABDOMEN: obese. Nondistended. Bowel sound is normoactive, abdomen is soft, non-tender non-d istended ,no mass palpable. EXTREMITIES: left BKA. No prosthetic on at this time. 1+ right lower extermity edema, Muscl e strength adequate. NEURO: Cranial Nerves 2-12 appears intact, Gait not tested, PSYCH: Alert, awake and Oriented x3. SKIN: No significant bruises, rashes, lesions, or ulcers. DATA Recent Labs Lab 06/17/1641906/16/1643406/15/16444 WBC 8.39 9.32 9.73 RBC 3.26* 3.16* 3.47* HCT 25.8* 24.6* 27.4* MCV 79.3* 77.8* 79.1* MCH 25.3* 25.2* 25.1* MCHC 31.9* 32.4 31.7* RDW 51.2 51.2 51.2 PLT 205 234 232 MPV 9.9 9.6 10.0 DIFFTYPE -- MANUAL AUTOMATED Recent Labs Lab 06/17/1641906/16/1643406/15/16444 K 4.4 4.1 4.3 CL 99 98* 101 CO2 27 28 26 ANIONGAP 14 14 14 GLUF 144* 143* 186* BUN 61* 54* 51* CREATININE 3.4* 3.6* 3.6* BCR 18 15 14 CA 9.0 9.2 8.8 PROT -- 8.1 -- ALB -- 3.7 -- GLOB -- 4.4 -- BILITOT -- 0.9 -- ALP -- 60 -- AST -- 26 -- ALT -- 24 -- EGFR 16* 15* 15* BMP: Recent Labs Lab 09/29/16 0420 09/28/16 0435 09/27/16 0445 NA 136 136 137 K 4.4 4.1 4.3 CL 99 98* 101 CO2 27 28 26 ANIONGAP 14 14 14 GLUF 144* 143* 186* BUN 61* 54* 51* CREATININE 3.4* 3.6* 3.6* BCR 18 15 14 CA 9.0 9.2 8.8 EGFR 16* 15* 15* Recent Labs Lab 06/15/16 0445 MG 2.4 No results for input(s): APTT, INR, PTT in the last 168 hours. No results for input(s): CKTOTAL, TROPONINI, TROPONINT, CKMBINDEX in the last 168 hours. [facility] 06/15/2016 EXAM: RENAL ULTRASOUND EXAM DATE: 06/15/2016 12:36 AM. CLINICAL HISTORY: Pelvi c pain. Hematuria. COMPARISON: None. TECHNIQUE: Real-time scanning was performed with stat ic images obtained. FINDINGS: Right Kidney: 9.2 x 4.2 x 5.4 cm. Normal echotexture with n o stones, contour-deforming masses, or hydronephrosis. Left Kidney: 8.7 x 5.2 x 4.5 cm. No rmal echotexture with no stones, contour-deforming masses, or hydronephrosis. Bladder: Rig ht ureteral jet was visualized. Left ureteral jet was not visualized. The bladder volume was 51 cc. The patient voided immediately prior to the exam. 06/15/2016 1. No hydronephrosis seen. No obvious mass. 2. Decompressed urinary bladder me asuring 51 cc. Right ureteral jet was visualized in the bladder. Left jet was not visualized . RADIA Electronically signed by Sly Andres MD on Jun 15 2016 2:41AM Referring Provide r Line: [id number] ID: [id number] PROBLEM LIST ASSESSMENT & PLAN Principal Problem: ERICK (acute kidney injury) (HCC) Active Problems: Essential hypertension, benign Amputated below knee (HCC) CKD (chronic kidney disease), stage IV (HCC) Abrasion Pressure sore Type II diabetes mellitus (HCC) Pt's condition stable. ERICK is still persistent. Will continue to follow. Clerical Administrator is al so following pt. Will also consult nephrology. I spoke with dr. Cabral for assistance. GIB? Probably from hemorrhoiddal bleed. T1DM: BS still elevated, will resume insulin levemir. HTN: BP stable/controlled. 06/16: Acute kidney injury: Stable. Consult did Dr. Cabral yesterday. Discussed with him sherley kumar and he recommended GI consultation. I informed him that I will have GI consultation onc e GI bleed is confirmed. Anemia could be multifactorial, and from hemorrhoidal bleed. Multiple pressure ulcers unstageable and present prior to admission, of left knee and right side of the abdomen. Abrasion of right knee. Wound care is still seeing patient. The rest of her medical issues are stable at this time. Type 2 diabetes: Diabetic education did see patient. Monitor hemoglobin. Monitor renal stat us. 06/17: Patient with large wound bowel movement yesterday without mention of dark tarry stool . No evidence of GI bleed at this time. There is for no need for GI consultation. Patient al so has positive blood possibly from vaginal source. Therefore recommend outpatient FISH CULTURIST co nsultation for endometrial biopsy in a postmenopausal female. Morbid obesity; Hospital records reviewed. Labs and radiologic studies and reports reviewed. Discussed find ings with participating physicians. Old records reviewed on EMR. Condition guarded and high risk for cardiopulmonary decompensation due to underlying condit ions This report has been prepared using a voice recognition system. The report was reviewed for accuracy, however, sound-alike word errors, addition and/or deletions may occur. If there i s any question about this report please contact me. Disposition: inpatient Code Status: Full Code Nishant Orta MD 06/17/2016 Zeferino Corbett MD - 06/17/2016 10:27 AM PDTFormatting of this note might be different from the obdulio ginal. Progress Notes by Vani Cabral MD at 06/17/16 1027 Author: Vani Cabral MD Service: (none) Author Type: Physician Filed: 06/17/16 1033 Date of Service: 06/17/16 1027 Status: Signed Railroad Car Letterer: Vani Cabral MD (Physician) Hospital Problem List: Principal Problem: ERICK (acute kidney injury) (HCC) Active Problems: Essential hypertension, benign Amputated below knee (HCC) CKD (chronic kidney disease), stage IV (HCC) Abrasion Pressure sore Type II diabetes mellitus (HCC) The patient says that she feels 'ok' today. she denies any CP or SOB, states that she had blood passing with stool but blaise was not sent for analysis. her urine output adequate. The following portions of the patient's history were reviewed and updated as appropriate: l aboratory data, radiologic studies, allergies, current medications, and problem list. ascorbic acid 1,000 mg Oral Daily atorvastatin 40 mg Oral Nightly collagenase Topical Daily docusate sodium 100 mg Oral Daily iron gluconate 250 mg Intravenous Q24H heparin (porcine) 5000 unit/0.5mL 5,000 Units Subcutaneous Q12H insulin detemir 60 Units Subcutaneous BID insulin lispro (human) 0-14 Units Subcutaneous TID AC insulin lispro (human) 0-7 Units Subcutaneous Nightly metoprolol 75 mg Oral Daily miconazole Topical BID multivitamin with minerals 1 tablet Oral Daily pantoprazole 40 mg Oral QAM AC polyethylene glycol 17 g Oral BID pregabalin 75 mg Oral BID sodium bicarbonate 325 mg Oral TID venlafaxine 225 mg Oral Daily dextrose sodium chloride (IV) 75 mL/hr at 06/17/16 0203 P.E. BP 110/61 mmHg | Pulse 86 | Temp(Src) 98 F (36.7 C) (Oral) | Resp 17 | Ht 1.778 m (5' 1 0") | Wt 109.8 kg (242 lb 1 oz) | BMI 34.73 kg/m2 | SpO2 96% | LMP 10/04/2011 | Breastfeedin g? No General appearance: Pleasant, not in acute distress. Lungs: Good A/E to auscultation bilaterally and resonant. There are no wheezes. Heart: Regular rate and rhythm without any rub, gallop. no murmur. Abdominal exam: Soft and nontender with normal bowel sounds. Extremities: Warm to touch with trace leg edema. There is no cyanosis or clubbing. Neurological: Awake, alert, and oriented to time, place, and person. Normal gross motor po wer. There is no asterixis. Lab Results Component Value Date BUN 61* 06/17/2016 CREATININE 3.4* 06/17/2016 EGFR 16* 06/17/2016 NA 136 06/17/2016 K 4.4 06/17/2016 CL 99 06/17/2016 CO2 27 06/17/2016 CA 9.0 06/17/2016 PHOS 4.0 06/15/2016 MG 2.4 06/15/2016 ALB 3.7 06/16/2016 HGB 8.2* 06/17/2016 Assessment and Recommendations: Ms. Caballero is a 46 y.o. female patient with ERICK (acute kidney injury), that is in the set ting of drop in her Hb. The most likely pathology here is that of ATN. ERICK. Making good urine. Would cont NS 80 cc/hr I would DC NaHco3 for now, monitor Co2 Please dose her meds according to current e GFR Avoid nephrotoxins GI Bleed. Suggest GI w/u PPI Fluid support Anemia. Sec to above Also iron def I ordered iv Iron, second dose today Sec HPTH. PTH is above goal Manage as OP HTN. Low normal On Metoprolol Off rest of home meds, including Spironolactone/Bumes Controlled VOLUME STATUS. Euvolemic. VANI CABRAL MD FACP onversion Transact ion, Provider Unknown - 06/16/2016 10:43 PM PDTFormatting of this note might be different fr om the original. Nurse Progress Note by Minnie Barrett RN at 06/16/162242 Author: Minnie Barrett RN Service: (none) Author Type: Registered Nurse Filed: 06/16/162247 Date of Service: 06/16/162242 Status: Signed Railroad Car Letterer: Minnie Barrett RN (Registered Nurse) Pt has been adv that her IV is due to be changed. She said that there was no way we were g oing to take the IV since it is working. She adv that she is a "hard stick" and she was not going to let us try since she wants to leave tomorrow. Will continue to monitor the patenc y of the IV. Minnie Barrett RN onver jessica Transaction, Provider Unknown - 06/16/2016 8:50 PM PDT Nurse Progress Note by Minnie Barrett RN at 06/16/162049 Author: Minnie Barrett RN Service: (none) Author Type: Registered Nurse Filed: 06/16/162053 Date of Service: 06/16/162049 Status: Signed Railroad Car Letterer: Minnie Barrett RN (Registered Nurse) Pt had a large bowel movement (no evidence of blood) and stated that since she had it she w as ready to leave and that Dr. Orta had told her that was all she needed to be able to discha rge. Not seeing any discharge information in the orders, we advised her that she needed to stay overnight and she was addiment that she was going to leave. We were able to convince h er to stay and speak with CM and the doctor tomorrow. She requested Dilaudid for her pain m anagement which was approved by Dr. Howard. Will continue to monitor. Minnie Barrett RN onver jessica Transaction, Provider Unknown - 06/16/2016 6:30 PM PDT Progress Notes by Lyly Sterling RN at 06/16/161829 Author: Lyly Sterling RN Service: (none) Author Type: Registered Nurse Filed: 06/16/161839 Date of Service: 06/16/161829 Status: Signed Railroad Car Letterer: Lyly Sterling RN (Registered Nurse) Patient did not have a bowel movement today. She does have external hemorrhoid but there ar e no signs of bleeding at this time. She tolerated her iron without any ASE. I had her up to the bedside commode and noticed patient had blood in her urine. It appeared to be a drop of blood in the urine Instead of actual bloody urine. I had the patient roll over in the bed and I did a rectal exam no signs of bleeding. As I assessed her I cleansed her vagina and sh e is having vaginal bleeding. I cleansed again and several small dime size clots came out. P atient states she has not had a period for over 4 years. She is very upset and frustrated . I told her I would page Dr. Orta and tell him my findings and her concerns. Ines Dickinson MD - 06/16/2016 1:52 PM PDTFormatting of this note might be different from angela corrales original. Progress Notes by Nishant Orta MD at 06/16/16 1640 Author: Nishant Orta MD Service: Hospitalist Author Type: Physician Filed: 06/16/16 9788 Date of Service: 06/16/16 135 Status: Addendum Railroad Car Letterer: Nishant Orta MD (Physician) Related Notes: Original Note by Nishant Orta MD (Physician) filed at 06/16/16 0686 [facility] Service: Hospitalist Progress Note Hospital Day: LOS: 2 days Post-Op Day: * No surgery found * SUBJECTIVE Patient Summary: pt admitted for ERICK on CKD with possible GIB. Events Overnight: 06/15/2016 pt was worried with her blood sugar. 06/16 patient without any GI bleeding at this time. Hemoglobin relatively stable. Kidney sta tus however has not improved but is stable. ROS: 12 point ROS reviewed and negative other than above. Scheduled Medications ascorbic acid 1,000 mg Oral Daily atorvastatin 40 mg Oral Nightly collagenase Topical Daily docusate sodium 100 mg Oral Daily iron gluconate 250 mg Intravenous Q24H heparin (porcine) 5000 unit/0.5mL 5,000 Units Subcutaneous Q12H insulin detemir 60 Units Subcutaneous BID insulin lispro (human) 0-14 Units Subcutaneous TID AC insulin lispro (human) 0-7 Units Subcutaneous Nightly metoprolol 75 mg Oral Daily miconazole Topical BID multivitamin with minerals 1 tablet Oral Daily pantoprazole 40 mg Oral QAM AC polyethylene glycol 17 g Oral BID pregabalin 75 mg Oral BID sodium bicarbonate 325 mg Oral TID venlafaxine 225 mg Oral Daily Continuous Infusions dextrose sodium chloride (IV) 75 mL/hr at 06/16/16 1007 PRN Medications acetaminophen OR acetaminophen, dextrose, dextrose, dextrose, glucagon, glucagon, magne sium hydroxide, nystatin, ondansetron OR ondansetron, oxyCODONE OR oxyCODONE, polyet hylene glycol, zolpidem OBJECTIVE Vital Signs: BP 103/59 mmHg | Pulse 94 | Temp(Src) 98.9 F (37.2 C) (Oral) | Resp 20 | Ht 1.778 m (5' 10") | Wt 128.3 kg (282 lb 13.6 oz) | BMI 40.58 kg/m2 | SpO2 97% | LMP 10/04/2011 | Breastf eeding? No Physical Exam: General Appearance: Encounter patient in room 4442 sitting in bed. Nursing at bedside. No a pparent distress. Conversive and appropriate to place and person. HEENT: Normocephalic, atraumatic, pupils EOMI, PERRLA. Nose: no septal deviation or dischar ge noted. Ears: normal size, location, and contour. Throat dry and without exudates. NECK: is supple, full ROM, nontender. LUNGS: relatively clear to auscultation bilaterally with no obvious wheezing, No rales or r honchi audible. HEART: S1S2, Regular rate and rhythm without murmurs, gallops or rubs. ABDOMEN: obese. Nondistended. Bowel sound is normoactive, abdomen is soft, non-tender non-d istended ,no mass palpable. EXTREMITIES: left BKA. She has her left prosthetic on. No lower extermity edema, Muscle str ength adequate. NEURO: Cranial Nerves 2-12 appears intact, Gait not tested, PSYCH: Alert, awake and Oriented x3. SKIN: No significant bruises, rashes, lesions, or ulcers. DATA Recent Labs Lab 06/16/1643406/15/16444 WBC 9.32 9.73 RBC 3.16* 3.47* HCT 24.6* 27.4* MCV 77.8* 79.1* MCH 25.2* 25.1* MCHC 32.4 31.7* RDW 51.2 51.2 PLT 234 232 MPV 9.6 10.0 DIFFTYPE MANUAL AUTOMATED Recent Labs Lab 06/16/1643406/15/16444 K 4.1 4.3 CL 98* 101 CO2 28 26 ANIONGAP 14 14 GLUF 143* 186* BUN 54* 51* CREATININE 3.6* 3.6* BCR 15 14 CA 9.2 8.8 PROT 8.1 -- ALB 3.7 -- GLOB 4.4 -- BILITOT 0.9 -- ALP 60 -- AST 26 -- ALT 24 -- EGFR 15* 15* BMP: Recent Labs Lab 06/16/165 09/27/16 0445 NA 136 137 K 4.1 4.3 CL 98* 101 CO2 28 26 ANIONGAP 14 14 GLUF 143* 186* BUN 54* 51* CREATININE 3.6* 3.6* BCR 15 14 CA 9.2 8.8 EGFR 15* 15* Recent Labs Lab 06/15/16 0445 MG 2.4 No results for input(s): APTT, INR, PTT in the last 168 hours. No results for input(s): CKTOTAL, TROPONINI, TROPONINT, CKMBINDEX in the last 168 hours. [facility] 06/15/2016 EXAM: RENAL ULTRASOUND EXAM DATE: 06/15/2016 12:36 AM. CLINICAL HISTORY: Pelvi c pain. Hematuria. COMPARISON: None. TECHNIQUE: Real-time scanning was performed with stat ic images obtained. FINDINGS: Right Kidney: 9.2 x 4.2 x 5.4 cm. Normal echotexture with n o stones, contour-deforming masses, or hydronephrosis. Left Kidney: 8.7 x 5.2 x 4.5 cm. No rmal echotexture with no stones, contour-deforming masses, or hydronephrosis. Bladder: Rig ht ureteral jet was visualized. Left ureteral jet was not visualized. The bladder volume was 51 cc. The patient voided immediately prior to the exam. 06/15/2016 1. No hydronephrosis seen. No obvious mass. 2. Decompressed urinary bladder me asuring 51 cc. Right ureteral jet was visualized in the bladder. Left jet was not visualized . RADIA Electronically signed by Sly Andres MD on Jun 15 2016 2:41AM Referring Provide r Line: [id number] ID: [id number] PROBLEM LIST ASSESSMENT & PLAN Principal Problem: ERICK (acute kidney injury) (HCC) Active Problems: Essential hypertension, benign Amputated below knee (HCC) CKD (chronic kidney disease), stage IV (HCC) Abrasion Pressure sore Type II diabetes mellitus (HCC) Pt's condition stable. ERICK is still persistent. Will continue to follow. Clerical Administrator is al so following pt. Will also consult nephrology. I spoke with dr. Cabral for assistance. GIB? Probably from hemorrhoiddal bleed. T1DM: BS still elevated, will resume insulin levemir. HTN: BP stable/controlled. 06/16: Acute kidney injury: Stable. Consult did Dr. Cabral yesterday. Discussed with him sherley kumar and he recommended GI consultation. I informed him that I will have GI consultation onc e GI bleed is confirmed. Anemia could be multifactorial, and from hemorrhoidal bleed. Multiple pressure ulcers unstageable and present prior to admission, of left knee and right side of the abdomen. Abrasion of right knee. Wound care is still seeing patient. The rest of her medical issues are stable at this time. Type 2 diabetes: Diabetic education did see patient. Monitor hemoglobin. Monitor renal stat us. Hospital records reviewed. Labs and radiologic studies and reports reviewed. Discussed find ings with participating physicians. Old records reviewed on EMR. Condition guarded and high risk for cardiopulmonary decompensation due to underlying condit ions This report has been prepared using a voice recognition system. The report was reviewed for accuracy, however, sound-alike word errors, addition and/or deletions may occur. If there i s any question about this report please contact me. Disposition: inpatient Code Status: Full Code Nishant Orta MD 06/16/2016 onversio n Transaction, Provider Unknown - 06/16/2016 11:44 AM PDTFormatting of this note might be di fferent from the original. Case Management by Candida Perez RN at 06/16/16 5091 Author: Candida Perez RN Service: (none) Author Type: Registered Nurse Filed: 06/16/16 1146 Date of Service: 06/16/16 114 Status: Signed Railroad Car Letterer: Candida Perez RN (Registered Nurse) Signed F2F faxed to [facility] F: [phone] T: [phone], and placed i n chart. onver jessica Transaction, Provider Unknown - 06/15/2016 9:08 PM PDT Nurse Progress Note by Ramya Arzola RN at 06/15/16 8097 Author: Ramya Arzola RN Service: (none) Author Type: Registered Nurse Filed: 06/15/162109 Date of Service: 06/15/162107 Status: Signed Railroad Car Letterer: Ramya Arzola RN (Registered Nurse) Patient reporting burning with urination, and pressure in bladder area. Patient having urge ncy to go, but decreased urine output. Patient has been medicated for flank pain throughout day. Ramya Arzola RN Ines Dickinson MD - 06/15/2016 4:24 PM PDTFormatting of this note might be different from th zeferino original. Progress Notes by Nishant Orta MD at 06/15/16 1624 Author: Nishant Orta MD Service: Hospitalist Author Type: Physician Filed: 06/16/16 1626 Date of Service: 06/15/16 1624 Status: Addendum Railroad Car Letterer: Nishant Orta MD (Physician) Related Notes: Original Note by Nishant Orta MD (Physician) filed at 06/15/16 1636 [facility] Service: Hospitalist Progress Note Hospital Day: LOS: 2 days Post-Op Day: * No surgery found * SUBJECTIVE Patient Summary: pt admitted for ERICK on CKD with possible GIB. Events Overnight: 06/15/2016 pt was worried with her blood sugar. ROS: 12 point ROS reviewed and negative other than above. Scheduled Medications ascorbic acid 1,000 mg Oral Daily atorvastatin 40 mg Oral Nightly collagenase Topical Daily docusate sodium 100 mg Oral Daily iron gluconate 250 mg Intravenous Q24H heparin (porcine) 5000 unit/0.5mL 5,000 Units Subcutaneous Q12H insulin detemir 60 Units Subcutaneous BID insulin lispro (human) 0-14 Units Subcutaneous TID AC insulin lispro (human) 0-7 Units Subcutaneous Nightly metoprolol 75 mg Oral Daily miconazole Topical BID multivitamin with minerals 1 tablet Oral Daily pantoprazole 40 mg Oral QAM AC polyethylene glycol 17 g Oral BID pregabalin 75 mg Oral BID sodium bicarbonate 325 mg Oral TID venlafaxine 225 mg Oral Daily Continuous Infusions dextrose sodium chloride (IV) 75 mL/hr at 06/16/16 1007 PRN Medications acetaminophen OR acetaminophen, dextrose, dextrose, dextrose, glucagon, glucagon, magne sium hydroxide, nystatin, ondansetron OR ondansetron, oxyCODONE OR oxyCODONE, polyet hylene glycol, zolpidem OBJECTIVE Vital Signs: BP 103/59 mmHg | Pulse 94 | Temp(Src) 98.9 F (37.2 C) (Oral) | Resp 20 | Ht 1.778 m (5' 10") | Wt 128.3 kg (282 lb 13.6 oz) | BMI 40.58 kg/m2 | SpO2 97% | LMP 10/04/2011 | Breastf eeding? No Physical Exam: General Appearance: No apparent distress. Conversive and appropriate to place and person. HEENT: Normocephalic, atraumatic, pupils EOMI, PERRLA. Nose: no septal deviation or dischar ge noted. Ears: normal size, location, and contour. Throat dry and without exudates. NECK: is supple, full ROM, nontender. LUNGS: relatively clear to auscultation bilaterally with no obvious wheezing, No rales or r honchi audible. HEART: S1S2, Regular rate and rhythm without murmurs, gallops or rubs. ABDOMEN: obese. Bowel sound is normoactive, abdomen is soft, non-tender non-distended ,no m ass palpable. EXTREMITIES: left BKA. No lower extermity edema, Muscle strength adequate. NEURO: Cranial Nerves 2-12 appears intact, Gait not tested, PSYCH: Alert, awake and Oriente d x3. SKIN: No significant bruises, rashes, lesions, or ulcers. DATA Recent Labs Lab 06/16/165 06/15/165 WBC 9.32 9.73 RBC 3.16* 3.47* HCT 24.6* 27.4* MCV 77.8* 79.1* MCH 25.2* 25.1* MCHC 32.4 31.7* RDW 51.2 51.2 PLT 234 232 MPV 9.6 10.0 DIFFTYPE MANUAL AUTOMATED Recent Labs Lab 06/16/165 06/15/16 0445 K 4.1 4.3 CL 98* 101 CO2 28 26 ANIONGAP 14 14 GLUF 143* 186* BUN 54* 51* CREATININE 3.6* 3.6* BCR 15 14 CA 9.2 8.8 PROT 8.1 -- ALB 3.7 -- GLOB 4.4 -- BILITOT 0.9 -- ALP 60 -- AST 26 -- ALT 24 -- EGFR 15* 15* BMP: Recent Labs Lab 06/16/16 0435 06/15/16 0445 NA 136 137 K 4.1 4.3 CL 98* 101 CO2 28 26 ANIONGAP 14 14 GLUF 143* 186* BUN 54* 51* CREATININE 3.6* 3.6* BCR 15 14 CA 9.2 8.8 EGFR 15* 15* Recent Labs Lab 06/15/16 0445 MG 2.4 No results for input(s): APTT, INR, PTT in the last 168 hours. No results for input(s): CKTOTAL, TROPONINI, TROPONINT, CKMBINDEX in the last 168 hours. Us Kidneys And Bladder 06/15/2016 EXAM: RENAL ULTRASOUND EXAM DATE: 06/15/2016 12:36 AM. CLINICAL HISTORY: Pelvi c pain. Hematuria. COMPARISON: None. TECHNIQUE: Real-time scanning was performed with stat ic images obtained. FINDINGS: Right Kidney: 9.2 x 4.2 x 5.4 cm. Normal echotexture with n o stones, contour-deforming masses, or hydronephrosis. Left Kidney: 8.7 x 5.2 x 4.5 cm. No rmal echotexture with no stones, contour-deforming masses, or hydronephrosis. Bladder: Rig ht ureteral jet was visualized. Left ureteral jet was not visualized. The bladder volume was 51 cc. The patient voided immediately prior to the exam. 06/15/2016 1. No hydronephrosis seen. No obvious mass. 2. Decompressed urinary bladder me asuring 51 cc. Right ureteral jet was visualized in the bladder. Left jet was not visualized . RADIA Electronically signed by Sly Andres MD on Jun 15 2016 2:41AM Referring Provide r Line: [phone] ID: [id number] PROBLEM LIST ASSESSMENT & PLAN Principal Problem: ERICK (acute kidney injury) (HCC) Active Problems: Essential hypertension, benign Amputated below knee (HCC) CKD (chronic kidney disease), stage IV (HCC) Abrasion Pressure sore Type II diabetes mellitus (HCC) Pt's condition stable. ERICK is still persistent. Will continue to follow. Clerical Administrator is al so following pt. Will also consult nephrology. I spoke with dr. Cabral for assistance. GIB? Probably from hemorrhoiddal bleed. T1DM: BS still elevated, will resume insulin levemir. HTN: BP stable/controlled. Hospital records reviewed. Labs and radiologic studies and reports reviewed. Discussed find ings with participating physicians. Old records reviewed on EMR. Condition guarded and high risk for cardiopulmonary decompensation due to underlying condit ions This report has been prepared using a voice recognition system. The report was reviewed for accuracy, however, sound-alike word errors, addition and/or deletions may occur. If there i s any question about this report please contact me. Disposition: inpatient Code Status: Full Code Nishant Orta MD 06/16/2016 onversio n Transaction, Provider Unknown - 06/15/2016 3:56 PM PDTFormatting of this note might be di fferent from the original. Progress Notes by Hilda Earl RD at 06/15/16 8708 Author: Hilda Earl RD Service: (none) Author Type: Registered Dietitian Filed: 06/15/16 1600 Date of Service: 06/15/16 4376 Status: Signed Railroad Car Letterer: Hilda Earl RD (Registered Dietitian) 06/15/16 3406 Subjective Timepoint Admit (pressure ulcer) Pt c/o Pt admitted with acute on chronic CKD. Pt unhappy about being in the hospital at mirna e of visit. Diet Experience Self-selected diet(s) followed Pt limits her salt intake. Has cut back on soda. Uses canola oil for cooking. Fluid / Beverage Intake Oral Fluids Amount Pt drinking fluids ad andrew. Food Intake Amount of Food Pt reports appetite is good but c/o limited choices on the menu. Ate 100% cr eam of wheat, blueberry muffin at breakfast. Ate 100% hamburger, sherbet at lunch, all of th e chicken and egg off her chicken caesar salad, and 50% of her lettuce from her salad. Type of Food / Meals Renal Cardiac Diabetic diet. Micronutrient Intake Vitamin Intake C;Multivitamin Mineral / Element Intake Multi-mineral Food and Nutrition Knowledge Area(s) and Level of Knowledge Pt with questions regarding renal diet. Discussed [place], K+ W MACKENZIE and no indication to limit at this time. Pt requesting list of K+, Phos content of foods, provided for pt from [facility]. Nutrition-Focused Physical Findings Extremities, Muscles and Bones Pt with + 1 RLE edema. Noted to have a left leg BKA and ampu tation of finger. Skin Per wound care, pt has an abrasion to knee, plus unstageable pressure ulcers to left k nee and abdomen. Anthropometrics Weight change Pt reports that she gained a lot of wt, fluid related. Pt weighed 100.8 kg on 02/23/16, wt gain of 21.7 kg over the past 3 months. Biochemical data, medical tests, and procedures reviewed Biochemical data, medical tests, and procedures reviewed BG elevated at 186, consistent wit h DM2. BUN, Cr elevated with acute on chronic kidney disease. K+, Phos WNL. Recommendations Recommended energy needs Recommend cardiac diabetic maintenance diet to increase menu optio ns for pt since K+, phos WNL. Pt with appropriate intake at this time. Encouraged continued good po intake with focus on protein for wound healing. Will continue to monitor po intake a nd make further recommendations as indicated. Nutritional Risk Nutritional risk Low / moderate Follow up date 06/21/[address] onver jessica Transaction, Provider Unknown - 06/15/2016 3:15 PM PDT Case Management by Yue Ruano RN at 06/15/16 9388 Author: Yue Ruano RN Service: (none) Author Type: Registered Nurse Filed: 06/15/16 1515 Date of Service: 06/15/161514 Status: Signed Railroad Car Letterer: Yue Ruano RN (Registered Nurse) Pt from [place] faxed referral to [facility] onver jessica Transaction, Provider Unknown - 06/15/2016 1:59 PM PDT Case Management by Yue Ruano RN at 06/15/16 8554 Author: Yue Ruano RN Service: (none) Author Type: Registered Nurse Filed: 06/15/16 9667 Date of Service: 06/15/16 9134 Status: Addendum Railroad Car Letterer: Yue Ruano RN (Registered Nurse) Related Notes: Original Note by Yue Ruano RN (Registered Nurse) filed at 1407 06/15/16 1200 Discharge Planning Evaluation Admitting Diagnosis renal failure Readmission No Living Arrangements Children Support Systems Friends/neighbors;Other (Comment) (danny caregiver) Type of Residence Private residence House type House 2 story Independent with ADL's Yes Independent with Mobility Yes;Other (comment) (hjas a l leg prothesis, and a right brace for foot drop) Home Care Services Yes (danny caregiver 22 hrs per week) Type of Home Care Services Other (Comment) Mental Status Oriented Prior functional status independent Anticipated Discharge Plan Post Acute Care Needs Home Health Services;Other (comment) (wound care) Home Health Services Other (comment) (wound care) Choice menu signed Other (comment) Referral Accepted Other (comment) Plan communicated to patient/family Yes Resources Financial concerns No Transportation issues No Patient/Family concerns No Prescription Plan Yes Previous home health equipment Yes;Comment (pt has a left leg prothesis and a right brace she will pick ) Equipment Vendor [facility] for O2 Vascular access device No Ostomy/Drains/Appliances No Anticipated Disposition Facility Type Home Research Director Name and Phone Number [facility] Cardiac Nursing Unit Phone Number [phone] Met with: pt and discussed discharge planning, Pt is a 46 y.o., female. Pt advised Cm that prior to this admission pt was living with her children. Pt has a DANNY caregiver, pt receiv es 22 hrs per week. Pt is able to perform ADL's, Pt does not drive. Pt lives on the [address]nd fl[address] r of an apartment complex, and pt advises she does not have issues climbing the stairs. Pt h as a left leg prothesis and will be getting a right brace for her foot drop issues. Pt plans to return home. Pt has multiple wounds advanced practice provider has placed orders. Pt agreeable to [facility] with [facility] CM sent referral per pt's request. She has home O2 PRN, O2 is bains pplied through [facility]. Pt has no other CM needs at this time. Patient's PCP is: Ifeanyi Call Patient's insurance: Coverage concerns: none a this time Medication coverage/concerns: none at this time Community resources utilized / needed: HH Wound care through [facility] Assistance in transportation:family/ friends will transport Identification of any specific education / training: TBD Barriers to Discharge / Alternative housing needed: none at this time Anticipated DCP: home with [facility] for wound care Yue Ruano onver jessica Maldonado, Provider Unknown - 06/14/2016 11:31 PM PDT Progress Notes by Jonathan Raman RPH at 06/14/162330 Author: Jonathan Raman RPH Service: (none) Author Type: Pharmacist Filed: 06/14/162330 Date of Service: 06/14/162330 Status: Signed Railroad Car Letterer: Jonathan Raman RPH (Pharmacist) Note ccl 29.3ml/min meds reviewed Pharmacy will follow [facility] 2331 docume nted in this encounter Plan of Treatment +--------+ + + + + | Date | Type | Specialty | Care Team | Description | +--------+ + + + + | 10/10/ | Office | Cardiology | Jerry Watts | | | 2019 | Visit | | MD [address] | | | | | | [facility] | | | | | | [place] | | | | | | [address] | | | | | | | [address] | | | | | | [place] [address] | | | | | | [phone] | | | | | | | | +--------+ + + + + | 11/25/ | Office | Nephrology | Kei Arthur MD | | | 2019 | Visit | | [address] [facility] | | | | | | [address] | | | | | | [address] | | | | | | | | +--------+ + + + + documented as of this encounter Procedures + +--------+ + + + | Procedure Name | Priori | Date/Time | Associated Diagnosis | Comments | | | ty | | | | + +--------+ + + + | POC GLUCOSE | Routin | 06/19/2016 | | Results for this | | | e | 2:54 AM | | procedure are in the | | | | PDT | | results section. | + +--------+ + + + | POC GLUCOSE | Routin | 06/19/2016 | | Results for this | | | e | 1:47 AM | | procedure are in the | | | | PDT | | results section. | + +--------+ + + + | POC GLUCOSE | Routin | 06/18/2016 | | Results for this | | | e | 7:46 PM | | procedure are in the | | | | PDT | | results section. | + +--------+ + + + | POC GLUCOSE | Routin | 06/18/2016 | | Results for this | | | e | 11:28 AM | | procedure are in the | | | | PDT | | results section. | + +--------+ + + + | POC GLUCOSE | Routin | 06/18/2016 | | Results for this | | | e | 5:19 AM | | procedure are in the | | | | PDT | | results section. | + +--------+ + + + | BASIC METABOLIC | Routin | 06/18/2016 | | Results for this | | PANEL | e | 3:43 AM | | procedure are in the | | | | PDT | | results section. | + +--------+ + + + | POC GLUCOSE | Routin | 06/17/2016 | | Results for this | | | e | 9:16 PM | | procedure are in the | | | | PDT | | results section. | + +--------+ + + + | POC GLUCOSE | Routin | 06/17/2016 | | Results for this | | | e | 4:31 PM | | procedure are in the | | | | PDT | | results section. | + +--------+ + + + | POC GLUCOSE | Routin | 06/17/2016 | | Results for this | | | e | 11:21 AM | | procedure are in the | | | | PDT | | results section. | + +--------+ + + + | POC GLUCOSE | Routin | 06/17/2016 | | Results for this | | | e | 5:13 AM | | procedure are in the | | | | PDT | | results section. | + +--------+ + + + | CBC NO DIFFERENTIAL | Routin | 06/17/2016 | | Results for this | | | e | 4:20 AM | | procedure are in the | | | | PDT | | results section. | + +--------+ + + + | BASIC METABOLIC | Routin | 06/17/2016 | | Results for this | | PANEL | e | 4:20 AM | | procedure are in the | | | | PDT | | results section. | + +--------+ + + + | POC GLUCOSE | Routin | 06/16/2016 | | Results for this | | | e | 9:01 PM | | procedure are in the | | | | PDT | | results section. | + +--------+ + + + | POC GLUCOSE | Routin | 06/16/2016 | | Results for this | | | e | 4:25 PM | | procedure are in the | | | | PDT | | results section. | + +--------+ + + + | POC GLUCOSE | Routin | 06/16/2016 | | Results for this | | | e | 12:00 PM | | procedure are in the | | | | PDT | | results section. | + +--------+ + + + | POC GLUCOSE | Routin | 06/16/2016 | | Results for this | | | e | 5:20 AM | | procedure are in the | | | | PDT | | results section. | + +--------+ + + + | EXTERNAL LAB: CBC | Routin | 06/16/2016 | | Results for this | | | e | 4:35 AM | | procedure are in the | | | | PDT | | results section. | + +--------+ + + + | COMPREHENSIVE | Routin | 06/16/2016 | | Results for this | | METABOLIC PANEL | e | 4:35 AM | | procedure are in the | | | | PDT | | results section. | + +--------+ + + + | POC GLUCOSE | Routin | 06/16/2016 | | Results for this | | | e | 1:55 AM | | procedure are in the | | | | PDT | | results section. | + +--------+ + + + | POC GLUCOSE | Routin | 06/15/2016 | | Results for this | | | e | 9:01 PM | | procedure are in the | | | | PDT | | results section. | + +--------+ + + + | POC GLUCOSE | Routin | 06/15/2016 | | Results for this | | | e | 3:45 PM | | procedure are in the | | | | PDT | | results section. | + +--------+ + + + | POC GLUCOSE | Routin | 06/15/2016 | | Results for this | | | e | 11:21 AM | | procedure are in the | | | | PDT | | results section. | + +--------+ + + + | POC GLUCOSE | Routin | 06/15/2016 | | Results for this | | | e | 5:02 AM | | procedure are in the | | | | PDT | | results section. | + +--------+ + + + | EXTERNAL LAB: CBC | Routin | 06/15/2016 | | Results for this | | | e | 4:45 AM | | procedure are in the | | | | PDT | | results section. | + +--------+ + + + | PHOSPHORUS | Routin | 06/15/2016 | | Results for this | | | e | 4:45 AM | | procedure are in the | | | | PDT | | results section. | + +--------+ + + + | MAGNESIUM | Routin | 06/15/2016 | | Results for this | | | e | 4:45 AM | | procedure are in the | | | | PDT | | results section. | + +--------+ + + + | BASIC METABOLIC | Routin | 06/15/2016 | | Results for this | | PANEL | e | 4:45 AM | | procedure are in the | | | | PDT | | results section. | + +--------+ + + + | URINALYSIS WITH | Routin | 06/15/2016 | | Results for this | | MICROSCOPIC IF | e | 2:46 AM | | procedure are in the | | INDICATED | | PDT | | results section. | + +--------+ + + + | URINALYSIS, | Routin | 06/15/2016 | | Results for this | | MICROSCOPIC ONLY | e | 2:46 AM | | procedure are in the | | | | PDT | | results section. | + +--------+ + + + | POC GLUCOSE | Routin | 06/15/2016 | | Results for this | | | e | 12:46 AM | | procedure are in the | | | | PDT | | results section. | + +--------+ + + + | US RENAL LIMITED | Routin | 06/15/2016 | | Results for this | | | e | 12:35 AM | | procedure are in the | | | | PDT | | results section. | + +--------+ + + + | FL C ARM > 1 HOUR | Routin | 01/02/2016 | | Results for this | | | e | 8:15 AM | | procedure are in the | | | | PDT | | results section. | + +--------+ + + + documented in this encounter Results POC Glucose (06/19/2016 2:54 AM PDT) + + + + + + | Component | Value | Ref Range | Performed | Pathologist | | | | | At | Signature | + + + + + + | Glucose, | 142 (H)Comment: Testing | 65 - 99 mg/dL | EXTERNAL | | | Fingerstick | performed at [facility];[address] | | LAB | | | | [address];[place], [place] | | | | | | [address] | | | | + + + + + + + + | Specimen | + + | | + + + +---------+ + + | Performing | Address | City/State/Zipcode | Phone Number | | Organization | | | | + +---------+ + + | EXTERNAL LAB | | | | + +---------+ + + POC Glucose (06/19/2016 1:47 AM PDT) + + + + + + | Component | Value | Ref Range | Performed | Pathologist | | | | | At | Signature | + + + + + + | Glucose, | 161 (H)Comment: Testing | 65 - 99 mg/dL | EXTERNAL | | | Fingerstick | performed at [facility];[address] | | LAB | | | | [address];[place] | | | | | | [address] | | | | + + + + + + + + | Specimen | + + | | + + + +---------+ + + | Performing | Address | City/State/Zipcode | Phone Number | | Organization | | | | + +---------+ + + | EXTERNAL LAB | | | | + +---------+ + + POC Glucose (06/18/2016 7:46 PM PDT) + + + + + + | Component | Value | Ref Range | Performed | Pathologist | | | | | At | Signature | + + + + + + | Glucose, | >400 (H)Comment: Testing | 65 - 99 mg/dL | EXTERNAL | | | Fingerstick | performed at [facility];[address] | | LAB | | | | [address];[place], [place] | | | | | | [address] | | | | + + + + + + + + | Specimen | + + | | + + + +---------+ + + | Performing | Address | City/State/Zipcode | Phone Number | | Organization | | | | + +---------+ + + | EXTERNAL LAB | | | | + +---------+ + + POC Glucose (06/18/2016 11:28 AM PDT) + + + + + + | Component | Value | Ref Range | Performed | Pathologist | | | | | At | Signature | + + + + + + | Glucose, | 200 (H)Comment: Testing | 65 - 99 mg/dL | EXTERNAL | | | Fingerstick | performed at [facility];[address] | | LAB | | | | [address];[place] | | | | | | [address] | | | | + + + + + + + + | Specimen | + + | | + + + +---------+ + + | Performing | Address | City/State/Zipcode | Phone Number | | Organization | | | | + +---------+ + + | EXTERNAL LAB | | | | + +---------+ + + POC Glucose (06/18/2016 5:19 AM PDT) + + + + + + | Component | Value | Ref Range | Performed | Pathologist | | | | | At | Signature | + + + + + + | Glucose, | 133 (H)Comment: Testing | 65 - 99 mg/dL | EXTERNAL | | | Fingerstick | performed at [facility];[address] | | LAB | | | | [address];[place] | | | | | | [address] | | | | + + + + + + + + | Specimen | + + | | + + + +---------+ + + | Performing | Address | City/State/Zipcode | Phone Number | | Organization | | | | + +---------+ + + | EXTERNAL LAB | | | | + +---------+ + + Basic Metabolic Panel (06/18/2016 3:43 AM PDT) + + + + + + | Component | Value | Ref Range | Performed | Pathologist | | | | | At | Signature | + + + + + + | Na | 135Comment: Testing | 135 - 145 | EXTERNAL | | | | performed at [facility], [address] | mmol/L | LAB | | | | [address], | | | | | | [place] [address] | | | | + + + + + + | K | 4.0Comment: Testing | 3.5 - 4.9 | EXTERNAL | | | | performed at [facility], [address] | mmol/L | LAB | | | | [address], | | | | | | [place] [address] | | | | + + + + + + | Cl | 99Comment: Testing | 99 - 109 mmol/L | EXTERNAL | | | | performed at [facility], [address] | | LAB | | | | [address], | | | | | | [place] [address] | | | | + + + + + + | CO2 | 27Comment: Testing | 23 - 32 mmol/L | EXTERNAL | | | | performed at [facility], [address] | | LAB | | | | [address], | | | | | | [place] [address] | | | | + + + + + + | Anion Gap | 13Comment: Testing | 5 - 20 mmol/L | EXTERNAL | | | | performed at [facility], [address] | | LAB | | | | [address], | | | | | | [place] [address] | | | | + + + + + + | Glucose, | 121 (H)Comment: Testing | 65 - 99 mg/dL | EXTERNAL | | | Fasting | performed at [facility], [address] | | LAB | | | | [address], | | | | | | [place] [address] | | | | + + + + + + | BUN | 58 (H)Comment: Testing | 8 - 25 mg/dL | EXTERNAL | | | | performed at [facility], [address] | | LAB | | | | [address], | | | | | | [place] [address] | | | | + + + + + + | Creatinine | 3.2 (H)Comment: Testing | 0.50 - 1.00 | EXTERNAL | | | | performed at [facility], [address] | mg/dL | LAB | | | | [address], | | | | | | [place] [address] | | | | + + + + + + | BUN/Creatin | 18Comment: Testing | | EXTERNAL | | | ine Ratio | performed at [facility], [address] | | LAB | | | | [address], | | | | | | [place] [address] | | | | + + + + + + | Calcium | 9.0Comment: Testing | 8.5 - 10.5 | EXTERNAL | | | | performed at [facility], [address] | mg/dL | LAB | | | | [address], | | | | | | [place] [address] | | | | + + + + + + | Estimated | 17 (L)Comment: GFR <60: | mL/min/1.73m2 | EXTERNAL | | | GFR | CHRONIC KIDNEY DISEASE, | | LAB | | | | IF FOUND OVER A 3 MONTH | | | | | | PERIOD.GFR <15: KIDNEY | | | | | | FAILURE.FOR | | | | | | AMERICANS, MULTIPLY THE | | | | | | CALCULATED GFR BY | | | | | | 1.210.Testing performed | | | | | | at [facility], [address] | | | | | | [employer], | | | | | | [place] [address] | | | | + + + + + + + + | Specimen | + + | Blood specimen | | (specimen) | + + + +---------+ + + | Performing | Address | City/State/Zipcode | Phone Number | | Organization | | | | + +---------+ + + | EXTERNAL LAB | | | | + +---------+ + + POC Glucose (06/17/2016 9:16 PM PDT) + + + + + + | Component | Value | Ref Range | Performed | Pathologist | | | | | At | Signature | + + + + + + | Glucose, | 188 (H)Comment: Testing | 65 - 99 mg/dL | EXTERNAL | | | Fingerstick | performed at [facility];[address] | | LAB | | | | [address];[place], [place] | | | | | | [address] | | | | + + + + + + + + | Specimen | + + | | + + + +---------+ + + | Performing | Address | City/State/Zipcode | Phone Number | | Organization | | | | + +---------+ + + | EXTERNAL LAB | | | | + +---------+ + + POC Glucose (06/17/2016 4:31 PM PDT) + + + + + + | Component | Value | Ref Range | Performed | Pathologist | | | | | At | Signature | + + + + + + | Glucose, | 168 (H)Comment: Testing | 65 - 99 mg/dL | EXTERNAL | | | Fingerstick | performed at [facility];[address] | | LAB | | | | [address];[place], [place] | | | | | | [address] | | | | + + + + + + + + | Specimen | + + | | + + + +---------+ + + | Performing | Address | City/State/Zipcode | Phone Number | | Organization | | | | + +---------+ + + | EXTERNAL LAB | | | | + +---------+ + + POC Glucose (06/17/2016 11:21 AM PDT) + + + + + + | Component | Value | Ref Range | Performed | Pathologist | | | | | At | Signature | + + + + + + | Glucose, | 167 (H)Comment: Testing | 65 - 99 mg/dL | EXTERNAL | | | Fingerstick | performed at [facility];[address] | | LAB | | | | [address];[place] | | | | | | [address] | | | | + + + + + + + + | Specimen | + + | | + + + +---------+ + + | Performing | Address | City/State/Zipcode | Phone Number | | Organization | | | | + +---------+ + + | EXTERNAL LAB | | | | + +---------+ + + POC Glucose (06/17/2016 5:13 AM PDT) + + + + + + | Component | Value | Ref Range | Performed | Pathologist | | | | | At | Signature | + + + + + + | Glucose, | 140 (H)Comment: Testing | 65 - 99 mg/dL | EXTERNAL | | | Fingerstick | performed at [facility];[address] | | LAB | | | | [address];[place] | | | | | | [address] | | | | + + + + + + + + | Specimen | + + | | + + + +---------+ + + | Performing | Address | City/State/Zipcode | Phone Number | | Organization | | | | + +---------+ + + | EXTERNAL LAB | | | | + +---------+ + + CBC no Differential (06/17/2016 4:20 AM PDT) + + + + + + | Component | Value | Ref Range | Performed | Pathologist | | | | | At | Signature | + + + + + + | WBC | 8.39Comment: Testing | 3.80 - 11.00 | EXTERNAL | | | | performed at [facility], [address] | K/uL | LAB | | | | [address], | | | | | | [place] [address] | | | | + + + + + + | RED CELL | 3.26 (L)Comment: Testing | 3.70 - 5.10 | EXTERNAL | | | COUNT | performed at [facility], [address] | [address]/uL | LAB | | | | [address], | | | | | | [place] [address] | | | | + + + + + + | Hgb | 8.2 (L)Comment: Testing | 11.3 - 15.5 | EXTERNAL | | | | performed at [facility], [address] | g/dL | LAB | | | | [address], | | | | | | [place] [address] | | | | + + + + + + | Hematocrit, | 25.8 (L)Comment: Testing | 34.0 - 46.0 % | EXTERNAL | | | POC | performed at [facility], [address] | | LAB | | | | [address], | | | | | | [place] [address] | | | | + + + + + + | MCV | 79.3 (L)Comment: Testing | 80.0 - 100.0 fl | EXTERNAL | | | | performed at [facility], [address] | | LAB | | | | [address], | | | | | | [place] [address] | | | | + + + + + + | MCH | 25.3 (L)Comment: Testing | 27.0 - 34.0 pg | EXTERNAL | | | | performed at [facility], [address] | | LAB | | | | [address], | | | | | | [place] [address] | | | | + + + + + + | MCHC | 31.9 (L)Comment: Testing | 32.0 - 35.5 | EXTERNAL | | | | performed at [facility], [address] | g/dL | LAB | | | | [address], | | | | | | [place] [address] | | | | + + + + + + | RDW-CV | 51.2Comment: Testing | 37 - 53 fl | EXTERNAL | | | | performed at [facility], [address] | | LAB | | | | [address], | | | | | | [place] [address] | | | | + + + + + + | Platelet | 205Comment: Testing | 150 - 400 K/uL | EXTERNAL | | | Count | performed at [facility], [address] | | LAB | | | Plasma | [address], | | | | | | [place] [address] | | | | + + + + + + | MPV | 9.9Comment: Testing | fl | EXTERNAL | | | | performed at [facility], [address] | | LAB | | | | [address], | | | | | | [place] [address] | | | | + + + + + + + + | Specimen | + + | | + + + +---------+ + + | Performing | Address | City/State/Zipcode | Phone Number | | Organization | | | | + +---------+ + + | EXTERNAL LAB | | | | + +---------+ + + Basic Metabolic Panel (06/17/2016 4:20 AM PDT) + + + + + + | Component | Value | Ref Range | Performed | Pathologist | | | | | At | Signature | + + + + + + | Na | 136Comment: Testing | 135 - 145 | EXTERNAL | | | | performed at [facility], [address] | mmol/L | LAB | | | | [address], | | | | | | [place] [address] | | | | + + + + + + | K | 4.4Comment: Testing | 3.5 - 4.9 | EXTERNAL | | | | performed at [facility], [address] | mmol/L | LAB | | | | [address], | | | | | | [place] [address] | | | | + + + + + + | Cl | 99Comment: Testing | 99 - 109 mmol/L | EXTERNAL | | | | performed at [facility], [address] | | LAB | | | | [address], | | | | | | [place] [address] | | | | + + + + + + | CO2 | 27Comment: Testing | 23 - 32 mmol/L | EXTERNAL | | | | performed at [facility], [address] | | LAB | | | | [address], | | | | | | [place] [address] | | | | + + + + + + | Anion Gap | 14Comment: Testing | 5 - 20 mmol/L | EXTERNAL | | | | performed at [facility], [address] | | LAB | | | | [address], | | | | | | [place] [address] | | | | + + + + + + | Glucose, | 144 (H)Comment: Testing | 65 - 99 mg/dL | EXTERNAL | | | Fasting | performed at [facility], [address] | | LAB | | | | [address], | | | | | | [place] [address] | | | | + + + + + + | BUN | 61 (H)Comment: Testing | 8 - 25 mg/dL | EXTERNAL | | | | performed at [facility], [address] | | LAB | | | | [address], | | | | | | [place] [address] | | | | + + + + + + | Creatinine | 3.4 (H)Comment: Testing | 0.50 - 1.00 | EXTERNAL | | | | performed at [facility], [address] | mg/dL | LAB | | | | [address], | | | | | | [place] [address] | | | | + + + + + + | BUN/Creatin | 18Comment: Testing | | EXTERNAL | | | ine Ratio | performed at [facility], [address] | | LAB | | | | [address], | | | | | | [place] [address] | | | | + + + + + + | Calcium | 9.0Comment: Testing | 8.5 - 10.5 | EXTERNAL | | | | performed at [facility], [address] | mg/dL | LAB | | | | [address], | | | | | | [place] [address] | | | | + + + + + + | Estimated | 16 (L)Comment: GFR <60: | mL/min/1.73m2 | EXTERNAL | | | GFR | CHRONIC KIDNEY DISEASE, | | LAB | | | | IF FOUND OVER A 3 MONTH | | | | | | PERIOD.GFR <15: KIDNEY | | | | | | FAILURE.FOR | | | | | | AMERICANS, MULTIPLY THE | | | | | | CALCULATED GFR BY | | | | | | 1.210.Testing performed | | | | | | at [facility], [address] | | | | | | [address], | | | | | | [place] [address] | | | | + + + + + + + + | Specimen | + + | Blood specimen | | (specimen) | + + + +---------+ + + | Performing | Address | City/State/Zipcode | Phone Number | | Organization | | | | + +---------+ + + | EXTERNAL LAB | | | | + +---------+ + + POC Glucose (06/16/2016 9:01 PM PDT) + + + + + + | Component | Value | Ref Range | Performed | Pathologist | | | | | At | Signature | + + + + + + | Glucose, | 143 (H)Comment: Testing | 65 - 99 mg/dL | EXTERNAL | | | Fingerstick | performed at [facility];[address] | | LAB | | | | [address];[place] | | | | | | [address] | | | | + + + + + + + + | Specimen | + + | | + + + +---------+ + + | Performing | Address | City/State/Zipcode | Phone Number | | Organization | | | | + +---------+ + + | EXTERNAL LAB | | | | + +---------+ + + POC Glucose (06/16/2016 4:25 PM PDT) + + + + + + | Component | Value | Ref Range | Performed | Pathologist | | | | | At | Signature | + + + + + + | Glucose, | 218 (H)Comment: Testing | 65 - 99 mg/dL | EXTERNAL | | | Fingerstick | performed at [facility];[address] | | LAB | | | | [address];[place] | | | | | | [address] | | | | + + + + + + + + | Specimen | + + | | + + + +---------+ + + | Performing | Address | City/State/Zipcode | Phone Number | | Organization | | | | + +---------+ + + | EXTERNAL LAB | | | | + +---------+ + + POC Glucose (06/16/2016 12:00 PM PDT) + + + + + + | Component | Value | Ref Range | Performed | Pathologist | | | | | At | Signature | + + + + + + | Glucose, | 202 (H)Comment: Testing | 65 - 99 mg/dL | EXTERNAL | | | Fingerstick | performed at [facility];[address] | | LAB | | | | [address];[place] | | | | | | [address] | | | | + + + + + + + + | Specimen | + + | | + + + +---------+ + + | Performing | Address | City/State/Zipcode | Phone Number | | Organization | | | | + +---------+ + + | EXTERNAL LAB | | | | + +---------+ + + POC Glucose (06/16/2016 5:20 AM PDT) + + + + + + | Component | Value | Ref Range | Performed | Pathologist | | | | | At | Signature | + + + + + + | Glucose, | 145 (H)Comment: Testing | 65 - 99 mg/dL | EXTERNAL | | | Fingerstick | performed at [facility];[address] | | LAB | | | | [address];[place] | | | | | | [address] | | | | + + + + + + + + | Specimen | + + | | + + + +---------+ + + | Performing | Address | City/State/Zipcode | Phone Number | | Organization | | | | + +---------+ + + | EXTERNAL LAB | | | | + +---------+ + + External Lab: CBC (06/16/2016 4:35 AM PDT) + + +---- + + + | Component | Value | Ref Range | Performed | Pathologist | | | | | At | Signature | + + +---- + + + | WBC | 9.32Comment: Testing | 3.8 0 - 11.00 | EXTERNAL | | | | performed at [facility], [address] | K/u L | LAB | | | | [address], | | | | | | [place] [address] | | | | + + +---- + + + | RED CELL | 3.16 (L)Comment: Testing | 3.7 0 - 5.10 | EXTERNAL | | | COUNT | performed at [facility], [address] | [address]/u L | LAB | | | | [address], | | | | | | [place] [address] | | | | + + +---- + + + | Hgb | 8.0 (L)Comment: Testing | 11. 3 - 15.5 | EXTERNAL | | | | performed at [facility], [address] | g/d L | LAB | | | | [address], | | | | | | [place] [address] | | | | + + +---- + + + | Hematocrit, | 24.6 (L)Comment: Testing | 34. 0 - 46.0 % | EXTERNAL | | | POC | performed at [facility], [address] | | LAB | | | | [address], | | | | | | [place] [address] | | | | + + +---- + + + | MCV | 77.8 (L)Comment: Testing | 80. 0 - 100.0 fl | EXTERNAL | | | | performed at [facility], [address] | | LAB | | | | [address], | | | | | | [place] [address] | | | | + + +---- + + + | MCH | 25.2 (L)Comment: Testing | 27. 0 - 34.0 pg | EXTERNAL | | | | performed at [facility], [address] | | LAB | | | | [address], | | | | | | [place] [address] | | | | + + +---- + + + | MCHC | 32.4Comment: Testing | 32. 0 - 35.5 | EXTERNAL | | | | performed at [facility], [address] | g/d L | LAB | | | | [address], | | | | | | [place] [address] | | | | + + +---- + + + | RDW-CV | 51.2Comment: Testing | 37 - 53 fl | EXTERNAL | | | | performed at [facility], [address] | | LAB | | | | [address], | | | | | | [place] [address] | | | | + + +---- + + + | Platelet | 234Comment: Testing | 150 - 400 K/uL | EXTERNAL | | | Count | performed at [facility], [address] | | LAB | | | Plasma | [address], | | | | | | [place] [address] | | | | + + +---- + + + | MPV | 9.6Comment: Testing | fl | EXTERNAL | | | | performed at [facility], [address] | | LAB | | | | [address], | | | | | | [place] [address] | | | | + + +---- + + + | Differentia | MANUALComment: Testing | | EXTERNAL | | | l Type | performed at [facility], [address] | | LAB | | | | [address], | | | | | | [place] [address] | | | | + + +---- + + + | Segmented | 69Comment: Testing | % | EXTERNAL | | | Neutrophils | performed at [facility], [address] | | LAB | | | Manual | [address], | | | | | | [place] [address] | | | | + + +---- + + + | % Bands | 3Comment: Testing | % | EXTERNAL | | | | performed at [facility], [address] | | LAB | | | | [address], | | | | | | [place] [address] | | | | + + +---- + + + | Lymphocytes | 23Comment: Testing | % | EXTERNAL | | | Manual | performed at [facility], [address] | | LAB | | | | [address], | | | | | | [place] [address] | | | | + + +---- + + + | Monocytes | 4Comment: Testing | % | EXTERNAL | | | Manual | performed at [facility], [address] | | LAB | | | | [address], | | | | | | [place] [address] | | | | + + +---- + + + | Eosinophils | 1Comment: Testing | % | EXTERNAL | | | Manual | performed at [facility], [address] | | LAB | | | | [address], | | | | | | [place] [address] | | | | + + +---- + + + | Absolute | 6.44Comment: Testing | 1.9 0 - 7.40 | EXTERNAL | | | Neutrophils | performed at [facility], [address] | K/u L | LAB | | | | [address], | | | | | | [place] [address] | | | | + + +---- + + + | Bands | 0.28 (H)Comment: Testing | 0.0 0 - 0.20 | EXTERNAL | | | Manual | performed at [facility], [address] | K/u L | LAB | | | | [address], | | | | | | [place] [address] | | | | + + +---- + + + | Absolute | 2.14Comment: Testing | 1.0 0 - 3.90 | EXTERNAL | | | Lymphocytes | performed at [facility], [address] | K/u L | LAB | | | | [address], | | | | | | [place] [address] | | | | + + +---- + + + | Absolute | 0.37Comment: Testing | 0.0 0 - 0.80 | EXTERNAL | | | Monocytes | performed at [facility], [address] | K/u L | LAB | | | | [address], | | | | | | [place] [address] | | | | + + +---- + + + | Absolute | 0.09Comment: Testing | 0.0 0 - 0.50 | EXTERNAL | | | Eosinophils | performed at [facility], [address] | K/u L | LAB | | | | [address], | | | | | | [place] [address] | | | | + + +---- + + + | RBC | 2+Comment: | | EXTERNAL | | | Morphology | ANISO1+MICRO2+HYPONORMAL | | LAB | | | | PLT MORPHTesting | | | | | | performed at [facility], [address] | | | | | | [facility], | | | | | | [place] [address] | | | | | |HYPO | | | | | |NORMAL PLT MORPH | | | | | |Testing performed at [facility], [facility] [place] [address] | | | | | | | | | | + + +---- + + + + + | Specimen | + + | Blood specimen | | (specimen) | + + + +---------+ + + | Performing | Address | City/State/Zipcode | Phone Number | | Organization | | | | + +---------+ + + | EXTERNAL LAB | | | | + +---------+ + + Comprehensive Metabolic Panel (06/16/2016 4:35 AM PDT) + + + + + + | Component | Value | Ref Range | Performed | Pathologist | | | | | At | Signature | + + + + + + | Na | 136Comment: Testing | 135 - 145 | EXTERNAL | | | | performed at [facility], [address] | mmol/L | LAB | | | | [address], | | | | | | [place] [address] | | | | + + + + + + | K | 4.1Comment: Testing | 3.5 - 4.9 | EXTERNAL | | | | performed at [facility], [address] | mmol/L | LAB | | | | [address], | | | | | | [place] [address] | | | | + + + + + + | Cl | 98 (L)Comment: Testing | 99 - 109 mmol/L | EXTERNAL | | | | performed at [facility], [address] | | LAB | | | | [address], | | | | | | [place], [place] [address] | | | | + + + + + + | CO2 | 28Comment: Testing | 23 - 32 mmol/L | EXTERNAL | | | | performed at [facility], [address] | | LAB | | | | [address], | | | | | | [place] [address] | | | | + + + + + + | Anion Gap | 14Comment: Testing | 5 - 20 mmol/L | EXTERNAL | | | | performed at [facility], [address] | | LAB | | | | [address], | | | | | | [place] [address] | | | | + + + + + + | Glucose, | 143 (H)Comment: Testing | 65 - 99 mg/dL | EXTERNAL | | | Fasting | performed at [facility], [address] | | LAB | | | | [address], | | | | | | [place] [address] | | | | + + + + + + | BUN | 54 (H)Comment: Testing | 8 - 25 mg/dL | EXTERNAL | | | | performed at [facility], [address] | | LAB | | | | [address], | | | | | | [place] [address] | | | | + + + + + + | Creatinine | 3.6 (H)Comment: Testing | 0.50 - 1.00 | EXTERNAL | | | | performed at [facility], [address] | mg/dL | LAB | | | | [address], | | | | | | [place] [address] | | | | + + + + + + | BUN/Creatin | 15Comment: Testing | | EXTERNAL | | | ine Ratio | performed at [facility], [address] | | LAB | | | | [address], | | | | | | [place] [address] | | | | + + + + + + | Calcium | 9.2Comment: Testing | 8.5 - 10.5 | EXTERNAL | | | | performed at [facility], [address] | mg/dL | LAB | | | | [address], | | | | | | [place] [address] | | | | + + + + + + | Protein, | 8.1Comment: Testing | 6.3 - 8.2 g/dL | EXTERNAL | | | Total | performed at [facility], [address] | | LAB | | | | [address], | | | | | | [place] [address] | | | | + + + + + + | Albumin | 3.7Comment: Testing | 3.6 - 5.0 g/dL | EXTERNAL | | | | performed at [facility], [address] | | LAB | | | | [address], | | | | | | [place] [address] | | | | + + + + + + | Globulin | 4.4Comment: Testing | 1.3 - 4.9 g/dL | EXTERNAL | | | | performed at [facility], [address] | | LAB | | | | [address], | | | | | | [place] [address] | | | | + + + + + + | A/G Ratio | 0.8 (L)Comment: Testing | 1.0 - 2.4 | EXTERNAL | | | | performed at [facility], [address] | | LAB | | | | [address], | | | | | | [place] [address] | | | | + + + + + + | Bilirubin | 0.9Comment: Testing | 0.1 - 1.5 mg/dL | EXTERNAL | | | Total | performed at [facility], [address] | | LAB | | | | [address], | | | | | | [place], [place] [address] | | | | + + + + + + | ALP, | 60Comment: Testing | 35 - 115 U/L | EXTERNAL | | | External | performed at [facility], [address] | | LAB | | | | [address], | | | | | | [place], [place] [address] | | | | + + + + + + | AST | 26Comment: Testing | 10 - 45 U/L | EXTERNAL | | | | performed at [facility], [address] | | LAB | | | | [address], | | | | | | [place] [address] | | | | + + + + + + | ALT | 24Comment: Testing | 10 - 65 U/L | EXTERNAL | | | | performed at [facility], [address] | | LAB | | | | [address], | | | | | | [place] [address] | | | | + + + + + + | Estimated | 15 (L)Comment: GFR <60: | mL/min/1.73m2 | EXTERNAL | | | GFR | CHRONIC KIDNEY DISEASE, | | LAB | | | | IF FOUND OVER A 3 MONTH | | | | | | PERIOD.GFR <15: KIDNEY | | | | | | FAILURE.FOR | | | | | | AMERICANS, MULTIPLY THE | | | | | | CALCULATED GFR BY | | | | | | 1.210.Testing performed | | | | | | at [facility], [address] | | | | | | [facility], | | | | | | [place] [address] | | | | + + + + + + + + | Specimen | + + | Blood specimen | | (specimen) | + + + +---------+ + + | Performing | Address | City/State/Zipcode | Phone Number | | Organization | | | | + +---------+ + + | EXTERNAL LAB | | | | + +---------+ + + POC Glucose (06/16/2016 1:55 AM PDT) + + + + + + | Component | Value | Ref Range | Performed | Pathologist | | | | | At | Signature | + + + + + + | Glucose, | 181 (H)Comment: Testing | 65 - 99 mg/dL | EXTERNAL | | | Fingerstick | performed at [facility];[address] | | LAB | | | | [address];[place] | | | | | | [address] | | | | + + + + + + + + | Specimen | + + | | + + + +---------+ + + | Performing | Address | City/State/Zipcode | Phone Number | | Organization | | | | + +---------+ + + | EXTERNAL LAB | | | | + +---------+ + + POC Glucose (06/15/2016 9:01 PM PDT) + + + + + + | Component | Value | Ref Range | Performed | Pathologist | | | | | At | Signature | + + + + + + | Glucose, | 187 (H)Comment: Testing | 65 - 99 mg/dL | EXTERNAL | | | Fingerstick | performed at [facility];[address] | | LAB | | | | [address];[place] | | | | | | [address] | | | | + + + + + + + + | Specimen | + + | | + + + +---------+ + + | Performing | Address | City/State/Zipcode | Phone Number | | Organization | | | | + +---------+ + + | EXTERNAL LAB | | | | + +---------+ + + POC Glucose (06/15/2016 3:45 PM PDT) + + + + + + | Component | Value | Ref Range | Performed | Pathologist | | | | | At | Signature | + + + + + + | Glucose, | 261 (H)Comment: Testing | 65 - 99 mg/dL | EXTERNAL | | | Fingerstick | performed at [facility];[address] | | LAB | | | | [address];[place], [place] | | | | | | [address] | | | | + + + + + + + + | Specimen | + + | | + + + +---------+ + + | Performing | Address | City/State/Zipcode | Phone Number | | Organization | | | | + +---------+ + + | EXTERNAL LAB | | | | + +---------+ + + POC Glucose (06/15/2016 11:21 AM PDT) + + + + + + | Component | Value | Ref Range | Performed | Pathologist | | | | | At | Signature | + + + + + + | Glucose, | 277 (H)Comment: Testing | 65 - 99 mg/dL | EXTERNAL | | | Fingerstick | performed at [facility];[address] | | LAB | | | | [address];[place] | | | | | | [address] | | | | + + + + + + + + | Specimen | + + | | + + + +---------+ + + | Performing | Address | City/State/Zipcode | Phone Number | | Organization | | | | + +---------+ + + | EXTERNAL LAB | | | | + +---------+ + + POC Glucose (06/15/2016 5:02 AM PDT) + + + + + + | Component | Value | Ref Range | Performed | Pathologist | | | | | At | Signature | + + + + + + | Glucose, | 191 (H)Comment: Testing | 65 - 99 mg/dL | EXTERNAL | | | Fingerstick | performed at [facility] [place];[address] | | LAB | | | | [address], [place] | | | | | | [address] | | | | + + + + + + + + | Specimen | + + | | + + + +---------+ + + | Performing | Address | City/State/Zipcode | Phone Number | | Organization | | | | + +---------+ + + | EXTERNAL LAB | | | | + +---------+ + + External Lab: CBC (06/15/2016 4:45 AM PDT) + + +---- + + + | Component | Value | Ref Range | Performed | Pathologist | | | | | At | Signature | + + +---- + + + | WBC | 9.73Comment: Testing | 3.8 0 - 11.00 | EXTERNAL | | | | performed at [facility], [address] | [address] | LAB | | | | [address], | | | | | | [place] [address] | | | | + + +---- + + + | RED CELL | 3.47 (L)Comment: Testing | 3.7 0 - 5.10 | EXTERNAL | | | COUNT | performed at [facility], [address] | [address] | LAB | | | | [address], | | | | | | [place] [address] | | | | + + +---- + + + | Hgb | 8.7 (L)Comment: Testing | 11. 3 - 15.5 | EXTERNAL | | | | performed at [facility], [address] | g/d [address] | LAB | | | | [address], | | | | | | [place] [address] | | | | + + +---- + + + | Hematocrit, | 27.4 (L)Comment: Testing | 34. 0 - 46.0 % | EXTERNAL | | | POC | performed at [facility], [address] | | LAB | | | | [address], | | | | | | [place] [address] | | | | + + +---- + + + | MCV | 79.1 (L)Comment: Testing | 80. 0 - 100.0 fl | EXTERNAL | | | | performed at [facility], [address] | | LAB | | | | [address], | | | | | | [place] [address] | | | | + + +---- + + + | MCH | 25.1 (L)Comment: Testing | 27. 0 - 34.0 pg | EXTERNAL | | | | performed at [facility], [address] | | LAB | | | | [address], | | | | | | [place] [address] | | | | + + +---- + + + | MCHC | 31.7 (L)Comment: Testing | 32. 0 - 35.5 | EXTERNAL | | | | performed at [facility], [address] | [address] | LAB | | | | [address], | | | | | | [place] [address] | | | | + + +---- + + + | RDW-CV | 51.2Comment: Testing | 37 - 53 fl | EXTERNAL | | | | performed at [facility], [address] | | LAB | | | | [address], | | | | | | [place] [address] | | | | + + +---- + + + | Platelet | 232Comment: Testing | 150 - 400 K/uL | EXTERNAL | | | Count | performed at [facility], [address] | | LAB | | | Plasma | [address], | | | | | | [place] [address] | | | | + + +---- + + + | MPV | 10.0Comment: Testing | fl | EXTERNAL | | | | performed at [facility], [address] | | LAB | | | | [address], | | | | | | [place] [address] | | | | + + +---- + + + | Differentia | AUTOMATEDComment: | | EXTERNAL | | | l Type | Testing performed at | | LAB | | | | [facility], [address] | | | | | | [place] | | | | | | [address] | | | | + + +---- + + + | % Segmented | 74.56Comment: Testing | % | EXTERNAL | | | | performed at [facility], [address] | | LAB | | | Neutrophils | [place], | | | | | | [place] [address] | | | | + + +---- + + + | % | 18.72Comment: Testing | % | EXTERNAL | | | Lymphocytes | performed at [facility], [address] | | LAB | | | | [place], | | | | | | [place] [address] | | | | + + +---- + + + | % Monocytes | 4.54Comment: Testing | % | EXTERNAL | | | | performed at [facility], [address] | | LAB | | | | [address], | | | | | | [place] [address] | | | | + + +---- + + + | % | 1.48Comment: Testing | % | EXTERNAL | | | Eosinophils | performed at [facility], [address] | | LAB | | | | [address], | | | | | | [place] [address] | | | | + + +---- + + + | % Basophils | 0.70Comment: Testing | % | EXTERNAL | | | | performed at [facility], [address] | | LAB | | | | [address], | | | | | | [place] [address] | | | | + + +---- + + + | Absolute | 7.25Comment: Testing | 1.9 0 - 7.40 | EXTERNAL | | | Segmented | performed at [facility], [address] | [address] | LAB | | | Neutrophils | [address] [place], | | | | | | [place] [address] | | | | + + +---- + + + | Absolute | 1.82Comment: Testing | 1.0 0 - 3.90 | EXTERNAL | | | Lymphocytes | performed at [facility], [address] | [address] | LAB | | | | [address] [place], | | | | | | [place] [address] | | | | + + +---- + + + | Absolute | 0.44Comment: Testing | 0.0 0 - 0.80 | EXTERNAL | | | Monocytes | performed at [facility], [address] | [address] | LAB | | | | [address] [place], | | | | | | [place] [address] | | | | + + +---- + + + | Absolute | 0.14Comment: Testing | 0.0 0 - 0.50 | EXTERNAL | | | Eosinophils | performed at [facility], [address] | [address] | LAB | | | | [address], | | | | | | [place] [address] | | | | + + +---- + + + | Absolute | 0.07Comment: Testing | 0.0 0 - 0.10 | EXTERNAL | | | Basophils | performed at [facility], [address] | K[address] | LAB | | | | [facility], | | | | | | [place] [address] | | | | + + +---- + + + | RBC | NORMAL PLT MORPHComment: | | EXTERNAL | | | Morphology | 1+ANISO1+MICROTesting | | LAB | | | | performed at [facility], [address] | | | | | | [facility], | | | | | | [place] [address] | | | | | |MICRO | | | | | |Testing performed at [facility], [address] [place] [address] | | | | | | | | | | + + +---- + + + + + | Specimen | + + | Blood specimen | | (specimen) | + + + +---------+ + + | Performing | Address | City/State/Zipcode | Phone Number | | Organization | | | | + +---------+ + + | EXTERNAL LAB | | | | + +---------+ + + Phosphorus (06/15/2016 4:45 AM PDT) + + + + + + | Component | Value | Ref Range | Performed | Pathologist | | | | | At | Signature | + + + + + + | PHOSPHORUS | 4.0Comment: Testing | 2.3 - 4.8 mg/dL | EXTERNAL | | | | performed at [facility], [address] | | LAB | | | | [address] [place], | | | | | | [place] [address] | | | | + + + + + + + + | Specimen | + + | Blood specimen | | (specimen) | + + + +---------+ + + | Performing | Address | City/State/Zipcode | Phone Number | | Organization | | | | + +---------+ + + | EXTERNAL LAB | | | | + +---------+ + + Magnesium (06/15/2016 4:45 AM PDT) + + + + + + | Component | Value | Ref Range | Performed | Pathologist | | | | | At | Signature | + + + + + + | Magnesium | 2.4Comment: Testing | 1.7 - 2.4 mg/dL | EXTERNAL | | | | performed at [facility], [address] | | LAB | | | | [address], | | | | | | [place] [address] | | | | + + + + + + + + | Specimen | + + | Blood specimen | | (specimen) | + + + +---------+ + + | Performing | Address | City/State/Zipcode | Phone Number | | Organization | | | | + +---------+ + + | EXTERNAL LAB | | | | + +---------+ + + Basic Metabolic Panel (06/15/2016 4:45 AM PDT) + + + + + + | Component | Value | Ref Range | Performed | Pathologist | | | | | At | Signature | + + + + + + | Na | 137Comment: Testing | 135 - 145 | EXTERNAL | | | | performed at [facility], [address] | mmol/L | LAB | | | | [place], | | | | | | [place] [address] | | | | + + + + + + | K | 4.3Comment: Testing | 3.5 - 4.9 | EXTERNAL | | | | performed at [facility], [address] | mmol/L | LAB | | | | [place], | | | | | | [place] [address] | | | | + + + + + + | Cl | 101Comment: Testing | 99 - 109 mmol/L | EXTERNAL | | | | performed at [facility], [address] | | LAB | | | | [address], | | | | | | [place] [address] | | | | + + + + + + | CO2 | 26Comment: Testing | 23 - 32 mmol/L | EXTERNAL | | | | performed at [facility], [address] | | LAB | | | | [address], | | | | | | [place] [address] | | | | + + + + + + | Anion Gap | 14Comment: Testing | 5 - 20 mmol/L | EXTERNAL | | | | performed at [facility], [address] | | LAB | | | | [address], | | | | | | [place] [address] | | | | + + + + + + | Glucose, | 186 (H)Comment: Testing | 65 - 99 mg/dL | EXTERNAL | | | Fasting | performed at [facility], [address] | | LAB | | | | [address], | | | | | | [place] [address] | | | | + + + + + + | BUN | 51 (H)Comment: Testing | 8 - 25 mg/dL | EXTERNAL | | | | performed at [facility], [address] | | LAB | | | | [address], | | | | | | [place] [address] | | | | + + + + + + | Creatinine | 3.6 (H)Comment: Testing | 0.50 - 1.00 | EXTERNAL | | | | performed at [facility], [address] | mg/dL | LAB | | | | [address], | | | | | | [place] [address] | | | | + + + + + + | BUN/Creatin | 14Comment: Testing | | EXTERNAL | | | ine Ratio | performed at [facility], [address] | | LAB | | | | [address], | | | | | | [place] [address] | | | | + + + + + + | Calcium | 8.8Comment: Testing | 8.5 - 10.5 | EXTERNAL | | | | performed at [facility], [address] | mg/dL | LAB | | | | [employer], | | | | | | [place] [address] | | | | + + + + + + | Estimated | 15 (L)Comment: GFR <60: | mL/min/1.73m2 | EXTERNAL | | | GFR | CHRONIC KIDNEY DISEASE, | | LAB | | | | IF FOUND OVER A 3 MONTH | | | | | | PERIOD.GFR <15: KIDNEY | | | | | | FAILURE.FOR | | | | | | AMERICANS, MULTIPLY THE | | | | | | CALCULATED GFR BY | | | | | | 1.210.Testing performed | | | | | | at [facility], [address] | | | | | | [facility], | | | | | | [place] [address] | | | | + + + [...] + +---------+ + + Urinalysis, Microscopic Only (06/15/2016 2:46 AM PDT) + + + + + + | Component | Value | Ref Range | Performed | Pathologist | | | | | At | Signature | + + + + + + | WBC, UA | 1-5Comment: Testing | 0 - 5 /hpf | EXTERNAL | | | | performed at [facility], [address] | | LAB | | | | [address], | | | | | | [place] [address] | | | | + + + + + + | RBC, UA | 0-2Comment: Testing | 0 - 5 /hpf | EXTERNAL | | | | performed at [facility], [address] | | LAB | | | | [address], | | | | | | [place] [address] | | | | + + + + + + | Bacteria, | TRACE (A)Comment: | | EXTERNAL | | | UA | Testing performed at | | LAB | | | | [facility], [address] | | | | | | [place] | | | | | | [address] | | | | + + + + + + | Epithelial | 26-50Comment: Testing | /lpf | EXTERNAL | | | Cells | performed at [facility], [address] | | LAB | | | | [address], | | | | | | [place] [address] | | | | + + + + + + | HYALINE | NONE SEENComment: | | EXTERNAL | | | CASTS UA | Testing performed at | | LAB | | | | [facility], [address] | | | | | | [place] | | | | | | [address] | | | | + + + + + + + + | Specimen | + + | | + + + +---------+ + + | Performing | Address | City/State/Zipcode | Phone Number | | Organization | | | | + +---------+ + + | EXTERNAL LAB | | | | + +---------+ + + Urinalysis with Microscopic if Indicated (06/15/2016 2:46 AM PDT) + + + + + + | Component | Value | Ref Range | Performed | Pathologist | | | | | At | Signature | + + + + + + | Color | YELLOWComment: Testing | | EXTERNAL | | | | performed at [facility], [address] | | LAB | | | | [place], | | | | | | [place] [address] | | | | + + + + + + | Clarity | CLEARComment: Testing | | EXTERNAL | | | | performed at [facility], [address] | | LAB | | | | [place], | | | | | | [place] [address] | | | | + + + + + + | Specific | 1.009Comment: Testing | 1.002 - 1.030 | EXTERNAL | | | Napoleon | performed at [facility], [address] | | LAB | | | | [place], | | | | | | [place] [address] | | | | + + + + + + | Leukocyte | SMALL (A)Comment: | | EXTERNAL | | | Esterase, | Testing performed at | | LAB | | | Urine | [facility], [address] | | | | | | [place] | | | | | | [address] | | | | + + + + + + | Nitrite, | NEGATIVEComment: Testing | | EXTERNAL | | | Urine | performed at [facility], [address] | | LAB | | | | [address], | | | | | | [place] [address] | | | | + + + + + + | Urobilinoge | 1.0Comment: Testing | mg/dL | EXTERNAL | | | n, Urine | performed at [facility], [address] | | LAB | | | | [address], | | | | | | [place] [address] | | | | + + + + + + | Protein, | NEGATIVEComment: Testing | mg/dL | EXTERNAL | | | Urine | performed at [facility], [address] | | LAB | | | | [address], | | | | | | [place] [address] | | | | + + + + + + | pH, Urine | 7.5Comment: Testing | 5.0 - 8.0 | EXTERNAL | | | | performed at [facility], [address] | | LAB | | | | [place], | | | | | | [place] [address] | | | | + + + + + + | Blood, | NEGATIVEComment: Testing | | EXTERNAL | | | Urine | performed at [facility], [address] | | LAB | | | | [address] [place], | | | | | | [place] [address] | | | | + + + + + + | Ketones | NEGATIVEComment: Testing | mg/dL | EXTERNAL | | | | performed at [facility], [address] | | LAB | | | | [address], | | | | | | [place] [address] | | | | + + + + + + | Bilirubin, | NEGATIVEComment: Testing | | EXTERNAL | | | Urine | performed at [facility], [address] | | LAB | | | [address], | | | | | | [place] [address] | | | | + + + + + + | Glucose, | NEGATIVEComment: Testing | mg/dL | EXTERNAL | | | Urine | performed at [facility], [address] | | LAB | | | | [address], | | | | | | [place] [address] | | | | + + + + + + + + | Specimen | + + | Urine specimen | | (specimen) | + + + +---------+ + + | Performing | Address | City/State/Zipcode | Phone Number | | Organization | | | | + +---------+ + + | EXTERNAL LAB | | | | + +---------+ + + POC Glucose (06/15/2016 12:46 AM PDT) + + + + + + | Component | Value | Ref Range | Performed | Pathologist | | | | | At | Signature | + + + + + + | Glucose, | 117 (H)Comment: Testing | 65 - 99 mg/dL | EXTERNAL | | | Fingerstick | performed at [facility];[address] | | LAB | | | | [place] | | | | | | [address] | | | | + + + + + + + + | Specimen | + + | | + + + +---------+ + + | Performing | Address | City/State/Zipcode | Phone Number | | Organization | | | | + +---------+ + + | EXTERNAL LAB | | | | + +---------+ + + US Renal Limited (06/15/2016 12:35 AM PDT) + + | Specimen | + + | | + + + + + | Impressions | Performed At | + + + | 1. No hydronephrosis seen. No obvious mass. 2. Decompressed | | | urinary bladder measuring 51 cc. Right ureteral jet was visualized in | | | the bladder. Left jet was not visualized. [facility] | | | Electronically signed by Sly Andres MD on Jun 15 2016 2:41AM | | | Referring Provider Line: [phone] ID: [id number] | | + + + + + + | Narrative | Performed At | + + + | EXAM: RENAL ULTRASOUND EXAM DATE: 06/15/2016 12:36 AM. | | | CLINICAL HISTORY: Pelvic pain. Hematuria. COMPARISON: None. | | | TECHNIQUE: Real-time scanning was performed with static images | | | obtained. FINDINGS: Right Kidney: 9.2 x 4.2 x 5.4 cm. Normal | | | echotexture with no stones, contour-deforming masses, or | | | hydronephrosis. Left Kidney: 8.7 x 5.2 x 4.5 cm. Normal | | | echotexture with no stones, contour-deforming masses, or | | | hydronephrosis. Bladder: Right ureteral jet was visualized. Left | | | ureteral jet was not visualized. The bladder volume was 51 cc. The | | | patient voided immediately prior to the exam. | | + + + + + | Procedure Note | + + | Florencio, Rad Conversion - 05/03/2019 7:16 AM PDT EXAM:RENAL ULTRASOUND EXAM DATE: | | 06/15/2016 12:36 AM. CLINICAL HISTORY: Pelvic pain. Hematuria. COMPARISON: None. | | TECHNIQUE: Real-time scanning was performed with static images obtained. FINDINGS:Right | | Kidney: 9.2 x 4.2 x 5.4 cm. Normal echotexture with no stones, contour-deforming | | masses, or hydronephrosis. Left Kidney: 8.7 x 5.2 x 4.5 cm. Normal echotexture with no | | stones, contour-deforming masses, or hydronephrosis. Bladder: Right ureteral jet was | | visualized. Left ureteral jet was not visualized. The bladder volume was 51 cc. The | | patient voided immediately prior to the exam. IMPRESSION: 1. No hydronephrosis seen. No | | obvious mass.2. Decompressed urinary bladder measuring 51 cc. Right ureteral jet was | | visualized in the bladder. Left jet was not visualized. [facility] Electronically signed by | | Sly Andres MD on Jun 15 2016 2:41AM Referring Provider Line: [phone] ID: [id number] | |FINDINGS: | |Right Kidney: 9.2 x 4.2 x 5.4 cm. Normal echotexture with no stones, contour-deforming mas ses, or hydronephrosis. | | | |Left Kidney: 8.7 x 5.2 x 4.5 cm. Normal echotexture with no stones, contour-deforming mass es, or hydronephrosis. | | | |Bladder: Right ureteral jet was visualized. Left ureteral jet was not visualized. The bladd er volume was 51 cc. The patient voided immediately prior to the exam. | | | |IMPRESSION: | | | |1. No hydronephrosis seen. No obvious mass. | |2. Decompressed urinary bladder measuring 51 cc. Right ureteral jet was visualized in the b ladder. Left jet was not visualized. | | | |[facility] | | | | Electronically signed by Sly Andres MD on Jun 15 2016 2:41AM Referring Provider Line: [phone] ID: [id number] | + + FL C-Arm > 1 Hour (01/02/2016 8:15 AM PDT) + + | Specimen | + + | | + + + + + | Narrative | Performed At | + + + | This is a non-reportable procedure without a radiologist report and | | | is used for image storage only | | + + + + + | Procedure Note | + + | Marcelo Matias - 05/03/2019 7:16 AM PDT This is a non-reportable procedure | | without a radiologist report and isused for image storage only | + + documented in this encounter Visit Diagnoses + + | Diagnosis | + + | Unknown cause of injury Unspecified accident | + + documented in this encounter
--- OUTSIDE RECORDS SUMMARY | ~2019-10-02 | XMS | Encounter Summary ---
Demographics + + + | Address | [address] | | | [place] [address] | + + + | Home Phone | | + + + | Preferred Language | Unknown | + + + | Marital Status | Single | + + + | Tenriism Affiliation | UNK | + + + | Race | White | + + + | Ethnic Group | Not or | + + + Author + + + | Author | [facility] | + + + | Organization | [facility] | + + + | Address | Unknown | + + + | Phone | Unavailable | + + + Support + + +---------+ + | Name | Relationship | Address | Phone | + + +---------+ + | Valentine Qiu | ECON | Unknown | | + + +---------+ + Care Team Providers + +------+ + | Care Glass Designer Name | Role | Phone | + +------+ + | Jennyfer Gresham MD | PCP | | + +------+ + Encounter Details +--------+ + + + + | Date | Type | Department | Care Team | Description | +--------+ + + + + | 09/07/ | Document-Sc | [facility] | Danielito Crockett MD,PhD | | | 2018 | anned | [facility] | [address] | | | | | at [place] [address] | [address] | | | | | [facility] | [place], [place] | | | | | Mailcode: [facility] | [address] | | | | | [place] [address] | [phone] | | | | | [phone] | | | +--------+ + + + [...]
--- OUTSIDE RECORDS SUMMARY | ~2019-10-02 | XMS | Encounter Summary ---
Demographics + + + | Address | [address] | | | [place] [address] | + + + | Home Phone | | + + + | Preferred Language | Unknown | + + + | Marital Status | Single | + + + | Religion Affiliation | 1041 | + + + | Race | Unknown | + + + | Ethnic Group | Unknown | + + + Author + + + | Author | [facility] | | | and [place] | + + + | Organization | [facility] | | | and [place] | + + + | Address | Unknown | + + + | Phone | Unavailable | + + + Support + + + + + | Name | Relationship | Address | Phone | + + + + + | Kyaw Woodson | ECON | [place], [place] | | + + + + + | Barbara Cabrera | ECON | Unknown | | + + + + + | Dimple Hathaway | ECON | Unknown | | + + + + + Care Team Providers + +------+ + | Care Bicycle Racer Name | Role | Phone | + +------+ + | No, Physician | PCP | Unavailable | + +------+ + Encounter Details +--------+ + + + + | Date | Type | Department | Care Team | Description | +--------+ + + + + | 09/22/ | Orders Only | [facility] | Conversion | | | 2017 | | NEPHROLOGY KARSTEN | Transaction, | | | | | [address] | Provider Unknown | | | | | [address] [place], [place] | | | | | | [address] | (Fax) | | | | | [phone] | | | +--------+ + + + [...] [place] | | | | | | [id number] | | | | | | | [...] | | | | | [place] [address] | | | | | | [phone] | | | | | | | | +--------+ + + + + | 11/25/ | Office | Nephrology | Kei Arthur MD | | | 2019 | Visit | | [address] [facility] | | | | | | [address] [place], [place] | | | | | | [address] | | | | | | | | +--------+ + + + + documented as of this encounter Procedures + +--------+ + + + | Procedure Name | Priori | Date/Time | Associated Diagnosis | Comments | | | ty | | | | + +--------+ + + + | IRON AND IRON | Routin | 09/22/2017 | | Results for this | | BINDING CAPACITY | e | 3:00 PM | | [...] encounter Results Iron and Iron Binding Capacity (09/22/2017 3:00 PM PST) + + + + + + | Component | Value | Ref Range | Performed | Pathologist | | | | | At | Signature | + + + + + + | Iron | 74.60 | 37 - 160 | EXTERNAL | | | | | | LAB | | + + + + + + | Iron | 17.1 (A) | 20 - 55 | EXTERNAL | | | Saturation | | | LAB | | + + + + + + | TIBC | 437 (A) | 245 - 400 | EXTERNAL [...]
--- OUTSIDE RECORDS SUMMARY | ~2019-10-02 | XMS | Encounter Summary ---
Demographics + + + | Address | [address] | | | [place] [address] | + + + | Home Phone | | + + + | Preferred Language | Unknown | + + + | Marital Status | Single | + + + | Anabaptist Affiliation | UNK | + + + | Race | White | + + + | Ethnic Group | Not or | + + + Author + + + | Author | [facility] | + + + | Organization | [facility] | + + + | Address | Unknown | + + + | Phone | Unavailable | + + + Support + + +---------+ + | Name | Relationship | Address | Phone | + + +---------+ + | Valentine Qiu | ECON | Unknown | | + + +---------+ + Care Team Providers + +------+ + | Care Chainsaw Mechanic Name | Role | Phone | [...] | | | | | | | [place], [place] | | | | | | | [address] | | | | | | | Phone: | | | | | | | [phone] | | | | | | | Fax: | | | | | | | [phone] | +--------+--------+ + + + + Encounter Details +--------+---------+ + + + | Date | Type | Department | Care Team | Description | +--------+---------+ + + + | 04/06/ | Office | [facility] | Jaelyn Watters, | 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 An olay-ueg-[id number] pain reliever (i.e. Tylenol) can be used [...] might be different f rom the original. [facility] Progress Note 04/06/2018 48 y.o. female Type [...] venlafaxine Examination: See Ophthalmology Module Attestations: The health care technician, under the supervision of the physician, [...] 1.25 mg/0.05 mL | | | ND: [id number] | | | Lot: [id number] | | | Expiration Date: 04/14/2018 [...] Performed At | + + + | Help Desk Operator | MEENAKSHI IRIZARRY | | [facility]: [...] [facility] | [address] | [place] [address] | | | INSTITUTE | Elly. | [...]
--- OUTSIDE RECORDS SUMMARY | ~2019-10-02 | XMS | Encounter Summary ---
Demographics + + + | Address | [address] | | | [place] [address] | + + + | Home Phone | | + + + | Preferred Language | Unknown | + + + | Marital Status | Single | + + + | Mosque Affiliation | 1041 | + + + | Race | Unknown | + + + | Ethnic Group | Unknown | + + + Author + + + | Author | [facility] | | | and [place] | + + + | Organization | [facility] | | | and [place] | + + + | Address | Unknown | + + + | Phone | Unavailable | + + + Support + + + + + | Name | Relationship | Address | Phone | + + + + + | Kyaw Woodson | ECON | [place], [place] | | + + + + + | Barbara Cabrera | ECON | Unknown | | + + + + + | Dimple Hathaway | ECON | Unknown | | + + + + + Care Team Providers + +------+ + | Care Psychiatric Np Name | Role | Phone | + +------+ + | Jennyfer Gresham MD | PCP | | + +------+ + Encounter Details +--------+ + + + + | Date | Type | Department | Care Team | Description | +--------+ + + + + | 10/18/ | Orders Only | [facility] | Mari Mcdaniel, | | | 2019 | | CARDIOLOGY TARKIO | [address] | | | | | [address] | [address] [place], [place] | | | | | [place], [place] | [address] | | | | | [address] | | | | | | [phone] | | | +--------+ + + + [...] [place] | | | | | | [address] | | | | | | | [...] | | | | | | [place] [address] | | | | | | [phone] | | | | | | | | +--------+ + + + + | 11/25/ | Office | Nephrology | Kei Arthur MD | | | 2020 | Visit | | [address] | | | | | | [address] [place] | | | | | | [address] | | | | | | | | +--------+ + + + + documented as of this encounter Visit Diagnoses Not on filedocumented in this encounter"
--- OUTSIDE RECORDS SUMMARY | ~2019-10-02 | XMS | Encounter Summary ---
Demographics + + + | Address | [address] | | | [place] [address] | + + + | Home Phone [...] + + + | Author | [facility] | | | and [place] | + + + | Organization | [facility] | | | and [place] | + + + | Address | Unknown | + + + | Phone | Unavailable | + + + Support + + + + + | Name | Relationship | Address | Phone | + + + + + | Kyaw Woodson | ECON | [place], [place] | | + + + + + | Barbara Cabrera | ECON | Unknown | | + + + + + | Dimple Hathaway | ECON | Unknown | | + + + + + Care Team Providers + +------+ + | Care Wildlife Technician Name | Role | Phone | + +------+ + | Daniel Land NP | PCP | | + +------+ + Encounter Details +--------+ + + + + | Date | Type | Department | Care Team | Description | +--------+ + + + + | 09/22/ | Orders Only | [facility] | Conversion | | | 2018 | | NEPHROLOGY KARSTEN | Transaction, | | | | | [address] [facility] [address] | Provider Unknown | | | | | [address] [place] | | | | | | [address] | (Fax) | | | | | [phone] | | | +--------+ + + + [...] [address] | | | | | | [facility] | | | | | | [place] | | | | | | [address] | | | | | | | [...] [address] | | | | | | [place] [address] | | | | | | [phone] | | | | | | | | +--------+ + + + + | 11/25/ | Office | Nephrology | Kei Arthur MD | | | 2019 | Visit | | [address] [facility] | | | | | | [address] [place] | | | | | | [address] | | | | | | | [...] documented in this encounter Results Culture, Urine (09/22/2017 3:00 PM PST) + + | Specimen | [...]
--- OUTSIDE RECORDS SUMMARY | ~2019-10-02 | XMS | Encounter Summary ---
Demographics + + + | Address | [address] | | | [place] [address] | + + + | Home Phone [...] | Organization | [facility] | | | and [place] | + + + | Address | Unknown | + + + | Phone | Unavailable | + + + Support + + + + + | Name | Relationship | Address | Phone | + + + + + | Kyaw Woodson | ECON | [place], [place] | | + + + + + | Barbara Cabrera | ECON | Unknown | | + + + + + | Dimple Hathaway | ECON | Unknown | | + + + + + Care Team Providers + +------+ + | Care Attending Psychiatrist Name | Role | Phone | + +------+ + | Daniel Land NP | PCP | | + +------+ + Encounter Details +--------+ + + + + | Date | Type | Department | Care Team | Description | +--------+ + + + + | 08/17/ | Orders Only | [facility] | Conversion | | | 2017 | | NEPRHOLOGY [place] | Transaction, | | | | | [address] | Provider Unknown | | | | | [address] | [phone] | | | | | [address] | | | | | | [phone] | | | +--------+ + + + [...] | | | | | [facility] | | | | | | [place] | | | | | | [address] | | | | | | | [...] | | | | | [place] [address] | | | | | | [phone] | | | | | | | | +--------+ + + + + | 11/25/ | Office | Nephrology | Kei Arthur MD | | | 2019 | Visit | | [address] [facility] | | | | | | [address] [place] | | | | | | [address] | | | | | | | | +--------+ + + + + documented as of this encounter Procedures + +--------+ + + + | Procedure Name | Priori | Date/Time | Associated Diagnosis | Comments | | | ty | | | | + +--------+ + + + | CULTURE, URINE | Routin | 08/17/2017 | | Results for this | | | e | 8:40 AM | | procedure are in the | | | | PST | | results section. | + +--------+ + + + documented in this encounter Results Culture, Urine (08/17/2017 8:40 AM PST) + + | Specimen | [...]
--- OUTSIDE RECORDS SUMMARY | ~2019-10-02 | XMS | Encounter Summary ---
Demographics + + + | Address | [address] | | | [place] [address] | + + + | Home Phone | | + + + | Preferred Language | Unknown | + + + | Marital Status | Single | + + + | Shinto Affiliation | 1041 | + + + | Race | Unknown | + + + | Ethnic Group | Unknown | + + + Author + + + | Author | [facility] | | | and [place] | + + + | Organization | [facility] | | | and [place] | + + + | Address | Unknown | + + + | Phone | Unavailable | + + + Support + + + + + | Name | Relationship | Address | Phone | + + + + + | Kyaw Woodson | ECON | [place], [place] | | + + + + + | Barbara Cabrera | ECON | Unknown | | + + + + + | Dimple Hathaway | ECON | Unknown | | + + + + + Care Team Providers + +------+ + | Care Weights And Measures Sealer Name | Role | Phone | + [...] + + | 06/05/ | Office | [facility] | Mari Mcpherson, | Chronic combined | | 2019 | Visit | CARDIOLOGY [place] | [address] | systolic and | | | | [address] | [place]uto [place]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 | | | | [place] | [address] | heart failure (HCC) | | | | [address] | | (Primary Dx); | | | | [phone] | | Coronary artery | | | | | | disease of lower [place] | | | | | | artery of [place] | | | | | | heart [...] here for follow-up visit. Currently in a assisted. Denies any chest pain or shortness of breath. Reviewed blood pressure which has been monit ored has been in within controlled limits. Was admitted to the hospital in March 2019 secondary to gangrenous and ischemic right lower extremity she had xbaib-kwa-pfru amputation. Recovered slowly currently and assisted/re habilitation. 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
--- OUTSIDE RECORDS SUMMARY | ~2019-10-02 | XMS | Encounter Summary ---
Demographics + + + | Address | [address] | | | [place] [address] | + + + | Home Phone | | + + + | Preferred Language | Unknown | + + + | Marital Status | Single | + + + | Catholic Affiliation | UNK | + + + | Race | White | + + + | Ethnic Group | Not or | + + + Author + + + | Author | [facility] | + + + | Organization | [facility] | + + + | Address | Unknown | + + + | Phone | Unavailable | + + + Support + + +---------+ + | Name | Relationship | Address | Phone | + + +---------+ + | Valentine Qiu | ECON | Unknown | | + + +---------+ + Care Team Providers + +------+ + | Care Database Development Project Manager Name | Role | Phone | + +------+ + | Ifeanyi Call MD | PCP | | + +------+ + Encounter Details +--------+ + + + + | Date | Type | Department | Care Team | Description | +--------+ + + + + | 12/24/ | Document-Sc | [facility] | Danielito Crockett MD,PhD | | | 2017 | anned | [facility] | [address] | | | | | at [place] [address] | [address] | | | | | [facility] | [place], [place] | | | | | Mailcode: [facility] | [address] | | | | | [place] [address] | [phone] | | | | | [phone] | | | +--------+ + + + [...]
--- OUTSIDE RECORDS SUMMARY | ~2019-10-02 | XMS | Encounter Summary ---
Demographics + + + | Address | [address] | | | [place] [address] | + + + | Home Phone | | + + + | Preferred Language | Unknown | + + + | Marital Status | Single | + + + | Gnosticist Affiliation | 1041 | + + + | Race | Unknown | + + + | Ethnic Group | Unknown | + + + Author + + + | Author | [facility] | | | and [place] | + + + | Organization | [facility] | | | and [place] | + + + | Address | Unknown | + + + | Phone | Unavailable | + + + Support + + + + + | Name | Relationship | Address | Phone | + + + + + | Kyaw Woodson | ECON | [place], [place] | | + + + + + | Barbara Cabrera | ECON | Unknown | | + + + + + | Dimple Hathaway | ECON | Unknown | | + + + + + Care Team Providers + +------+ + | Care Phlebotomist Name | Role | Phone | + +------+ + | Jennyfer Gresham MD | PCP | | + +------+ + Encounter Details +--------+ + + + + | Date | Type | Department | Care Team | Description | +--------+ + + + + | 01/03/ | Orders Only | [facility] | Kei Arthur MD | | | 2019 | | NEPRHOLOGY [place] | [address] | | | | | [address] | [address] [place], [place] | | | | | [address] [place], [place] | [address] | | | | | [address] | | | | | | [phone] | | | +--------+ + + + [...] [address] | | | | | | [facility] | | | | | | [address] | | | | | | [address] | | | | | | | [...] [address] | | | | | | [place] [address] | | | | | | [phone] | | | | | | | | +--------+ + + + + | 11/25/ | Office | Nephrology | Kei Arthur MD | | | 2019 | Visit | | [address] | | | | | | [address] [place] | | | | | | [address] | | | | | | | | +--------+ + + + + documented as of this encounter Visit Diagnoses Not on filedocumented in this encounter"
--- OUTSIDE RECORDS SUMMARY | ~2019-10-02 | XMS | Encounter Summary ---
Demographics + + + | Address | [address] | | | [place] [address] | + + + | Home Phone | | + + + | Preferred Language | Unknown | + + + | Marital Status | Single | + + + | Latter Day Affiliation | UNK | + + + | Race | White | + + + | Ethnic Group | Not or | + + + Author + + + | Author | [facility] | + + + | Organization | [facility] | + + + | Address | Unknown | + + + | Phone | Unavailable | + + + Support + + +---------+ + | Name | Relationship | Address | Phone | + + +---------+ + | Valentine Qiu | ECON | Unknown | | + + +---------+ + Care Team Providers + +------+ + | Care Six Horse Hitch Driver Name | Role | Phone | [...] | | | | | | | [place], [place] | | | | | | | [address] | | | | | | | Phone: | | | | | | | [phone] | | | | | | | Fax: | | | | | | | [phone] | +--------+--------+ + + + + Encounter Details +--------+---------+ + + + | Date | Type | Department | Care Team | Description | +--------+---------+ + + + | 12/15/ | Office | [facility] | Jaelyn Watters, | Type 2 macular | | 2018 | Visit | [facility] | [address] | telangiectasis of | | | | [address] | [address] | both eyes (Primary | | | | [address] | [place], [place] | Dx); 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 Do not rub or touch your eye ? An vmmn-buh-cnmgdwa pain reliever (i.e. Tylenol) can be used [...] documented in this encounter Progress Notes Jaelyn Maldonado R - 12/15/2017 2:45 PM PDT [facility] Progress Note 12/15/2017 CC: Follow-up visit Last visit: 11/17/17 at 1:00 pm 47 y.o. 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 Initial History: Follow-up visit Vision seemed better for a few days; some things seem clearer but some not so much; no wang ges in general health; BS bounding around but [facility] is working on it - 146 this am Physician HPI: Alondra Caballero is a 47 y.o. female Following up per recommendation with no new issues, including eye pain, decreased vision, i ncreased floaters or increased distortion Pain: No pain (0 of 0-10) Specialty History: IDDM type 2 (began as gestational at age 22-insulin dependant since then) Type 2 macular telangiectasis OU Avastin OU, 11/17/2017 -Last consent for Avastin, OU, 11/17/2017- Dr. Watters. Current Outpatient Prescriptions (Other) Medication Sig acetaminophen [...] multivitamin Take by mouth. 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 Social History Substance Use Topics Smoking status: Former Smoker Smokeless tobacco: Never Used Comment: smoked 15 years quit 09/21/2015 Alcohol use Not on file Family history includes Breast Cancer in her [...] Retinitis pigmentosa, and Strabismus, and Amblyopia, . Examination: See Ophthalmology Module Attestations: The data technician, under the supervision of the physician, [...] INJ - OS - | Routin | 12/15/2017 | Type 2 macular | Results for this | | LEFT EYE | e | 4:29 PM | telangiectasis of | procedure are in the | | | | PDT | both eyes Choroidal | results section. | | | | | neovascularization, | | | | | | both eyes Retinal | | | | | | edema of both eyes | | + +--------+ + + + | AVASTIN INJ - OD - | Routin | 12/15/2017 | Type 2 macular | Results for this | | RIGHT EYE | e | 4:29 PM | telangiectasis of | procedure are in the | | | | PDT | both eyes Choroidal | results section. | | | | | neovascularization, | | | | | | both eyes Retinal | | | | | | edema of both eyes | | + +--------+ + + + | OCT ANGIOGRAPHY | Routin | 12/15/2017 | Type 2 macular | Results for this | | | e | 3:30 PM | telangiectasis of | procedure are in the | | | | PDT | both eyes Choroidal | results section. | | | | | neovascularization, | | | | | | both eyes Retinal | | | | | | edema of both eyes | | + +--------+ + + + | OCT, RETINA | Routin | 12/15/2017 | Type 2 macular | Results for this | | | e | 3:14 PM | telangiectasis of | procedure are in the | | | | PDT | both eyes Choroidal | results section. | | | | | neovascularization, | | | | | | both eyes Retinal | | | | | | edema of both eyes | | + +--------+ + + + documented in this encounter Results OCT, RETINA (11/09/2018 11:40 AM PST) + + + | Narrative | Performed At | + + + | [facility] | [facility] | | DocumentationRight EyeQuality: good Central macular thickness: | [facility] | | 241 Segmentation: accurate Left EyeQuality: good Central | | | macular thickness: 273 Segmentation: accurate Provider | | | DocumentationRight EyeContour: central thickening, improved Fluid | | | and related findings: no fluid, better Retinal findings: | | | Subretinal scar Left EyeContour: central thickening, improved | | | Fluid and related findings: no fluid, better Retinal findings: | | | Subretinal scar | | |Quality: good | | | | | |Central macular thickness: 273 | | |Segmentation: accurate | | | [...] [facility] | [address] | [place] [address] | | | [place] | [place] | | | + + + + + KERRY CASTRO (08/01/2018 2:56 PM PST) + + + | Narrative | Performed At | + + + | [facility] | [facility] | | DocumentationRight EyeQuality: borderline Central macular | [facility] | | thickness: 256 Segmentation: acceptable Left EyeQuality: | | | borderline Central macular thickness: 308 Segmentation: | | | acceptable Provider DocumentationRight EyeContour: central | | | thickening, improved Fluid and related findings: no fluid, better | | | Retinal findings: Subretinal scar Left EyeContour: central | | | thickening, improved Fluid and related findings: no fluid, better | | | Retinal findings: Subretinal scar | | |Quality: borderline | | | | | |Central macular thickness: 308 | | |Segmentation: acceptable | | | | | | | [...] | + + + + + | [facility] | [address] | [place] [address] | | | [facility]STITUTE | [place]. | | | + + + + + OCT, RETINA (04/06/2018 1:23 PM PDT) + + + | Narrative | Performed At | + + + | Wildfire Prevention Specialist | [facility] | | DocumentationRight EyeQuality: good Central macular [...] | + + + + + | [facility] | [address] | [place] [address] | | | INSTITUTE | [place] | | | + + + + + AVASTIN INJECTION - OS - LEFT EYE (12/15/2017 4:29 PM PDT) + + + | Narrative | Performed At | + + + | Pre-Procedure | | | confirmed correct patient, procedure, site and consent., Procedures, | | | alternatives and risks discussed with patient. Questions answered. | | | | | | | [...] bevacizumab 1.25 mg/0.05 mL | | | [facility]: [id number] | | | Lot: [id number] | | | Expiration Date: 12/16/2017 | | | Route: intravitreal | | | Site: Left Eye | | | | | | General Details | | | Estimated blood loss: none | | | | | | | | | Post Op | | | Post procedure assessment: visual acuity at least count fingers, eye | | | rinsed, patient tolerated procedure well | | | Patient reported pain is 0 on a 0-10 scale. | | + + + AVASTIN INJECTION - OD - RIGHT EYE (12/15/2017 4:29 PM PDT) + + + | Narrative | Performed At | + + + | Pre-Procedure | | | confirmed correct patient, procedure, site and consent., Procedures, | | | alternatives and risks discussed with patient. Questions answered. | | | | | | | [...] bevacizumab 1.25 mg/0.05 mL | | | [facility]: [id number] | | | Lot: [id number] | | | Expiration Date: 12/16/2017 | | | Route: intravitreal | | | Site: Right Eye | | | | | | General Details | | | Estimated blood loss: none | | | | | | | | | Post Op | | | Post procedure assessment: visual acuity at least count fingers, eye | | | rinsed, patient tolerated procedure well | | | Patient reported pain is 0 on a 0-10 scale. | | + + + OCT ANGIOGRAPHY (12/15/2017 3:30 PM PDT) + + + | Narrative | Performed At | + + + | [facility] | [facility] | | DocumentationRight EyeQuality: borderline Protocol: 3x3 mm, 6x6 | [facility] | | mm Left EyeQuality: borderline Protocol: 3x3 mm, 6x6 mm | | | Provider DocumentationRight EyeQuality: good Superficial vascualr | | | complex: normal Deep capillary complex: normal Outer retina: | | | no CNV Left EyeQuality: good Superficial vascualr complex: | | | normal Deep capillary complex: normal | | |Left Eye | | |Quality: borderline | | | | | |Protocol: 3x3 mm, 6x6 mm | | | | | | | | |Provider Documentation | | |Right Eye | | |Quality: good | | |Superficial vascualr complex: normal | | | | | |Deep capillary complex: normal | | | | | |Outer retina: no CNV | | | | | | | | |Left Eye | | |Quality: good | | |Superficial vascualr complex: normal | | | | | |Deep capillary complex: normal | | | | | + + + + + + + + | Performing | Address | City/State/Zipcode | Phone Number | | Organization | | | | + + + + + | [facility] | [address] | [place] [address] | | | [facility]STITUTE | [place] | | | + + + + + MATTHEW, RETINA (12/15/2017 3:14 PM PDT) + + + | Narrative | Performed At | + + + | [facility] | [facility] | | DocumentationRight EyeQuality: borderline Segmentation: | [facility] | | acceptable Left EyeQuality: borderline Central macular | | | thickness: 262 Segmentation: acceptable Provider | | | DocumentationRight EyeContour: central thickening, improved Fluid | | | and related findings: no fluid, better Retinal findings: | | | Subretinal scar Left EyeContour: central thickening, improved | | | Fluid and related findings: no fluid, better Retinal findings: | | | Subretinal scar | | | | | |Central macular thickness: 262 | | |Segmentation: acceptable | | | | | | | [...] + + + + + | [facility] | [address] | [place] [address] | | | [place] | [place] | | | + + [...] in this encounter Administered Medications + +--------+ +---------+------+--------+ | Medication Order | MAR | Action | Dose | Rate | Site | | | Action | Date | | | | + +--------+ +---------+------+--------+ | bevacizumab (AVASTIN) | Given | 12/16/19 | 1.25 mg | | Right | | intravitreal injection 1.25 mg | | 18 4:29 | | | Eye | | 1.25 mg, ONCE NEEDED, 1 dose, | | PM PDT | | | | | Starting [facility] 12/15/17 at 1629, | | | | | | | Until [facility] 12/15/17 at 1629 | | | | | | + +--------+ +---------+------+--------+ +---+---+ | | | +---+---+ + +-------+ +---------+---+ + | bevacizumab (AVASTIN) | Given | 12/16/19 | 1.25 mg | | Left Eye | | intravitreal injection 1.25 mg | | 18 4:29 | | | | | 1.25 mg, ONCE NEEDED, 1 dose, | | PM PDT | | | | | Starting [facility] 12/15/17 at 1629, | | | | | | | Until [facility] 12/15/17 at 1629 | | | | | | + +-------+ +---------+---+ + +---+---+ | | | +---+---+ documented in this encounter"
--- OUTSIDE RECORDS SUMMARY | ~2019-10-02 | XMS | Encounter Summary ---
Demographics + + + | Address | [address] | | | [place] [address] | + + + | Home Phone | | + + + | Preferred Language | Unknown | + + + | Marital Status | Single | + + + | Orthodox Affiliation | 1041 | + + + | Race | Unknown | + + + | Ethnic Group | Unknown | + + + Author + + + | Author | [facility] | | | and [place] | + + + | Organization | [facility] | | [...] Providers + +------+ + | Care Manager Msw Name | Role | Phone | + +------+ + | No, Physician | PCP | Unavailable | + +------+ + Encounter Details +--------+ + + + + | Date | Type | Department | Care Team | Description | +--------+ + + + + | 06/14/ | Hospital | [facility] | Genesis Sims, | Unknown cause of | | 2016 - | Encounter | [facility] | [address] | injury | | | | CARE FLOOR [address] | [facility] | | | 06/18/ | | ROXANNE JONES | [place] [address] | | | 2016 | | [place], [place] | [phone] | | | | | [address] | | | | | | [phone] | | | +--------+ + + + [...] Date of Service: 06/18/16 0741 Status: Addendum Automatic Centrifugal Station Operator: Nishant Orta MD (Physician) Related Notes: Original Note by Nishant Orta MD (Physician) filed at 06/18/16 1154 [facility] Service: Hospitalist Discharge Summary Date of Admission: [...] discussion regarding her hospital course. She informed offset press operator helper that she had blood in the stool. [...] is still persistent. Will continue to follow. Starter Mechanic is al so following pt. Will also [...] possibly from vaginal source. Therefore recommend outpatient ASSEMBLER co nsultation for endometrial biopsy in a [...] aring to leave yesterday. She informed the offset press operator helper that she had bleeding again did not informed this to me. #2 Nursing also informed me that she found clots of blood in the vaginal area and I address ed my concern that she may need a hysteroscopy or ASSEMBLER follow-up. She informed me that she will discuss this with Dr. Doyle or offset press operator helper. She will set that she was sent [...] colonosco py if warranted Recommended follow-up with ASSEMBLER for hysteroscopy and are endometrial biopsy secondary to possible bleeding postmenopausal. I discussed with Dr. Arthur regarding the above issues and our plans. Hospital records reviewed. Labs and radiologic studies and reports reviewed. Discussed find ings with participating physicians. Old records reviewed on EMR. Past Medical History Diagnosis Date Hyperlipidemia Hypertension Pneumonia CHF (congestive heart failure) (HCC) Old myocardial infarction Seizures ([facility]) Meth induced seizure two years ago CAD (coronary artery disease) 10/05/2012 Depressed Anxiety Psychiatric disorder Diabetes mellitus, type 2 (HCC) CKD (chronic kidney disease), stage IV ([facility]) 06/02/2015 Past Surgical History Procedure Laterality [...] 15 2016 2:41AM Referring Provide r Line: [phone] ID: [id number] PLAN Discharge to home in stable condition. Code Status: Full Code No discharge procedures on file. Follow up: Ifeanyi Call MD [address] [place] [address] Follow up on 06/23/2016 You have an appoinment with Dr. Call on 06/23/2016 at 11:00 am. [facility] [address] [facility] [address], [address] [facility] [address] Follow up in 1 week(s) postmenopausal bleeding? Steven Deleon IV, MD [address] [place] [address] As needed Kei Arthur MD [address] [facility] [address] Follow up in 1 week(s) July 05 [...] are the prescriptions that you need to lease picker. You may get the following medications from [...] Note by Danielito Bragg RN at 06/18/16 1255 Author: Danielito Bragg RN Service: (none) Author Type: Registered Nurse Filed: 06/18/16 3740 Date of Service: 06/18/161251 Status: Signed Automatic Centrifugal Station Operator: Danielito Bragg RN (Registered Nurse) Pt. Discharged [...] 06/18/167 Date of Service: 06/18/161212 Status: Signed Automatic Centrifugal Station Operator: Candida Perez RN (Registered Nurse) Discharge planning: CM faxed AVS, Discharge Summary and signed Rx for wound care to [facility] [phone]. CM will FU. CM is awaiting call from [facility] [phone] for time of transport. Alfredito Kaur MD - 06/18/2016 9:29 AM PDTFormatting of this note might be different from th e original. Progress Notes by Alfredito Louis MD at 06/18/16928 Author: Alfredito Louis MD Service: Nephrology Author Type: Physician Filed: 06/19/16 0128 Date of Service: 06/18/16928 Status: Signed Automatic Centrifugal Station Operator: Alfredito Louis MD (Physician) [facility] Service: NEPHROLOGY Progress Note Alondra Caballero 46 y.o. [id number] female [facility] Day: LOS: 4 days Patient with [...] 15 2016 2:41AM Referring Provide r Line: [phone] ID: [id number] PROBLEM LIST Principal Problem: ERICK [...] earlier and charting completed later Dictation software, InterAt[employer], used which may contain error for similar [...] Date of Service: 06/18/16 0739 Status: Signed Automatic Centrifugal Station Operator: Danielito Bragg RN (Registered Nurse) Pt. Asleep [...] 06/17/161645 Date of Service: 06/17/161644 Status: Signed Automatic Centrifugal Station Operator: Candida Perez RN (Registered Nurse) Pt will need help with transportation in AM, can use [facility] [employer] [phone]. M IM signed and copy placed in chart. Ines Dickinson MD - 06/17/2016 1:17 PM PDTFormatting of this note might be different from th e original. Progress Notes by Nishant Orta MD at 06/17/16 1317 Author: Nishant Orta MD Service: Hospitalist Author Type: Physician Filed: 06/17/16 1322 Date of Service: 06/17/16 1317 Status: Signed Automatic Centrifugal Station Operator: Nishant Orta MD (Physician) [facility] Service: Hospitalist Progress Note Hospital Day: LOS: [...] discussion regarding her hospital course. She informed offset press operator helper that she had blood in the stool. [...] 15 2016 2:41AM Referring Provide r Line: [phone] ID: [id number] PROBLEM LIST ASSESSMENT & PLAN Principal Problem: ERICK (acute kidney injury) (HCC) Active Problems: Essential hypertension, benign Amputated below knee (HCC) CKD (chronic kidney disease), stage IV (HCC) Abrasion Pressure sore Type II diabetes mellitus (HCC) Pt's condition stable. ERICK is still persistent. Will continue to follow. Starter Mechanic is al so following pt. Will also [...] possibly from vaginal source. Therefore recommend outpatient ASSEMBLER co nsultation for endometrial biopsy in a [...] Date of Service: 06/17/16 1027 Status: Signed Automatic Centrifugal Station Operator: Vani Cabral MD (Physician) Hospital Problem List: [...] 06/16/162247 Date of Service: 06/16/162242 Status: Signed Automatic Centrifugal Station Operator: Minnie Barrett RN (Registered Nurse) Pt has [...] 06/16/162053 Date of Service: 06/16/162049 Status: Signed Automatic Centrifugal Station Operator: Minnie Barrett RN (Registered Nurse) Pt had [...] 06/16/161839 Date of Service: 06/16/161829 Status: Signed Automatic Centrifugal Station Operator: Lyly Sterling RN (Registered Nurse) Patient did [...] Notes by Nishant Orta MD at 06/16/16 3310 Author: Nishant Orta MD Service: Hospitalist Author Type: Physician Filed: 06/16/16 2267 Date of Service: 06/16/16 135 Status: Addendum Automatic Centrifugal Station Operator: Nishant Orta MD (Physician) Related Notes: Original Note by Nishant Orta MD (Physician) filed at 06/16/16 4556 [facility] Service: Hospitalist Progress Note Hospital Day: LOS: [...] 15 2016 2:41AM Referring Provide r Line: [phone] ID: [id number] PROBLEM LIST ASSESSMENT & PLAN Principal Problem: ERICK (acute kidney injury) (HCC) Active Problems: Essential hypertension, benign Amputated below knee (HCC) CKD (chronic kidney disease), stage IV (HCC) Abrasion Pressure sore Type II diabetes mellitus (HCC) Pt's condition stable. ERICK is still persistent. Will continue to follow. Starter Mechanic is al so following pt. Will also [...] Management by Candida Perez RN at 06/16/16 2059 Author: Candida Perez RN Service: (none) Author Type: Registered Nurse Filed: 06/16/16 1146 Date of Service: 06/16/16 114 Status: Signed Automatic Centrifugal Station Operator: Candida Perez RN (Registered Nurse) Signed F2F faxed to [facility] F: [phone] T: [phone], and placed i n chart. onver jessica Transaction, Provider Unknown - 06/15/2016 9:08 PM PDT Nurse Progress Note by Ramya Arzola RN at 06/15/16 7420 Author: Ramya Arzola RN Service: (none) Author Type: Registered Nurse Filed: 06/15/162109 Date of Service: 06/15/162107 Status: Signed Automatic Centrifugal Station Operator: Ramya Arzola RN (Registered Nurse) Patient reporting [...] Date of Service: 06/15/16 1624 Status: Addendum Automatic Centrifugal Station Operator: Nishant Orta MD (Physician) Related Notes: Original Note by Nishant Orta MD (Physician) filed at 06/15/16 1636 [facility] Service: Hospitalist Progress Note Hospital Day: LOS: [...] 15 2016 2:41AM Referring Provide r Line: [phone] ID: [id number] PROBLEM LIST ASSESSMENT & PLAN Principal Problem: ERICK (acute kidney injury) (HCC) Active Problems: Essential hypertension, benign Amputated below knee (HCC) CKD (chronic kidney disease), stage IV (HCC) Abrasion Pressure sore Type II diabetes mellitus (HCC) Pt's condition stable. ERICK is still persistent. Will continue to follow. Starter Mechanic is al so following pt. Will also [...] Notes by Hilda Earl RD at 06/15/16 3710 Author: Hilda Earl RD Service: (none) Author Type: Registered Dietitian Filed: 06/15/16 1600 Date of Service: 06/15/16 1905 Status: Signed Automatic Centrifugal Station Operator: Hilda Earl RD (Registered Dietitian) 06/15/16 3202 Subjective Timepoint Admit (pressure ulcer) Pt c/o [...] content of foods, provided for pt from [facility]. Nutrition-Focused Physical Findings Extremities, Muscles and Bones [...] Management by Yue Ruano RN at 06/15/16 5392 Author: Yue Ruano RN Service: (none) Author Type: Registered Nurse Filed: 06/15/16 1515 Date of Service: 06/15/161514 Status: Signed Automatic Centrifugal Station Operator: Yue Ruano RN (Registered Nurse) Pt from [place] faxed referral to [facility] onver jessica Transaction, Provider Unknown - 06/15/2016 1:59 PM PDT Case Management by Yue Ruano RN at 06/15/16 7458 Author: Yue Ruano RN Service: (none) Author Type: Registered Nurse Filed: 06/15/16 0833 Date of Service: 06/15/16 4834 Status: Addendum Automatic Centrifugal Station Operator: Yue Ruano RN (Registered Nurse) Related Notes: [...] Ostomy/Drains/Appliances No Anticipated Disposition Facility Type Home Call Center Coordinator Name and Phone Number [facility] Phone Number [phone] Met with: pt and discussed discharge planning, [...] to return home. Pt has multiple wounds hydroelectric plant operator has placed orders. Pt agreeable to [facility] with [facility] CM sent referral per [...] 06/14/162330 Date of Service: 06/14/162330 Status: Signed Automatic Centrifugal Station Operator: Jonathan Raman RPH (Pharmacist) Note ccl 29.3ml/min meds reviewed Pharmacy will follow [facility] 2331 docume nted in this encounter Plan of Treatment +--------+ + + + + | Date | Type | Specialty | Care Team | Description | +--------+ + + + + | 10/10/ | Office | Cardiology | Jerry Watts | | | 2019 | Visit | | MD [address] | | | | | | [facility] | | | | | | [place] | | | | | | [address] | | | | | | | [...] | | | | | | [place] [address] | | | | | | [phone] | | | | | | | | +--------+ + + + + | 11/25/ | Office | Nephrology | Kei Arthur MD | | | 2019 | Visit | | [address] [facility] | | | | | | [address] [place] | | | | | | [address] | | | | | | | [...] | | | Fingerstick | performed at [facility];[address] | | LAB | | | | [address];[place], [place] | | | | | | [address] | | | | + + + [...] | | | Fingerstick | performed at [facility];[address] | | LAB | | | | [address];[place] | | | | | | [address] | | | | + + + [...] | | | Fingerstick | performed at [facility];[address] | | LAB | | | | [address];[place], [place] | | | | | | [address] | | | | + + + [...] | | | Fingerstick | performed at [facility];[address] | | LAB | | | | [address];[place] | | | | | | [address] | | | | + + + [...] | | | Fingerstick | performed at [facility];[address] | | LAB | | | | [address];[place] | | | | | | [address] | | | | + + + [...] EXTERNAL | | | | performed at [facility], [address] | mmol/L | LAB | | | | [address], | | | | | | [place] [address] | | | | + + + + + + | K | 4.0Comment: Testing | 3.5 - 4.9 | EXTERNAL | | | | performed at [facility], [address] | mmol/L | LAB | | | | [address], | | | | | | [place] [address] | | | | + + + + + + | Cl | 99Comment: Testing | 99 - 109 mmol/L | EXTERNAL | | | | performed at [facility], [address] | | LAB | | | | [address], | | | | | | [place] [address] | | | | + + + + + + | CO2 | 27Comment: Testing | 23 - 32 mmol/L | EXTERNAL | | | | performed at [facility], [address] | | LAB | | | | [address], | | | | | | [place] [address] | | | | + + + + + + | Anion Gap | 13Comment: Testing | 5 - 20 mmol/L | EXTERNAL | | | | performed at [facility], [address] | | LAB | | | | [address], | | | | | | [place] [address] | | | | + + + + + + | Glucose, | 121 (H)Comment: Testing | 65 - 99 mg/dL | EXTERNAL | | | Fasting | performed at [facility], [address] | | LAB | | | | [address], | | | | | | [place] [address] | | | | + + + + + + | BUN | 58 (H)Comment: Testing | 8 - 25 mg/dL | EXTERNAL | | | | performed at [facility], [address] | | LAB | | | | [address], | | | | | | [place] [address] | | | | + + + + + + | Creatinine | 3.2 (H)Comment: Testing | 0.50 - 1.00 | EXTERNAL | | | | performed at [facility], [address] | mg/dL | LAB | | | | [address], | | | | | | [place] [address] | | | | + + + + + + | BUN/Creatin | 18Comment: Testing | | EXTERNAL | | | ine Ratio | performed at [facility], [address] | | LAB | | | | [address], | | | | | | [place] [address] | | | | + + + + + + | Calcium | 9.0Comment: Testing | 8.5 - 10.5 | EXTERNAL | | | | performed at [facility], [address] | mg/dL | LAB | | | | [address], | | | | | | [place] [address] | | | | + + + [...] W | | | | | | [address], | | | | | | [place] [address] | | | | + + + [...] | | | Fingerstick | performed at [facility];[address] | | LAB | | | | [address];[place], [place] | | | | | | [address] | | | | + + + [...] | | | Fingerstick | performed at [facility];[address] | | LAB | | | | [address];[place], [place] | | | | | | [address] | | | | + + + [...] | | | Fingerstick | performed at [facility];[address] | | LAB | | | | [address];[place] | | | | | | [address] | | | | + + + [...] | | | Fingerstick | performed at [facility];[address] | | LAB | | | | [address];[place] | | | | | | [address] | | | | + + + [...] | | | | | [place] [address] | | | | + + + + + + | RED CELL | 3.26 (L)Comment: Testing | 3.70 - 5.10 | EXTERNAL | | | COUNT | performed at [facility], [address] | M/uL | LAB | | | | [address], | | | | | | [place] [address] | | | | + + + + + + | Hgb | 8.2 (L)Comment: Testing | 11.3 - 15.5 | EXTERNAL | | | | performed at [facility], [address] | g/dL | LAB | | | | [address], | | | | | | [place] [address] | | | | + + + + + + | Hematocrit, | 25.8 (L)Comment: Testing | 34.0 - 46.0 % | EXTERNAL | | | POC | performed at [facility], [address] | | LAB | | | | [address], | | | | | | [place] [address] | | | | + + + + + + | MCV | 79.3 (L)Comment: Testing | 80.0 - 100.0 fl | EXTERNAL | | | | performed at [facility], [address] | | LAB | | | | [address], | | | | | | [place] [address] | | | | + + + + + + | MCH | 25.3 (L)Comment: Testing | 27.0 - 34.0 pg | EXTERNAL | | | | performed at [facility], [address] | | LAB | | | | [address], | | | | | | [place] [address] | | | | + + + + + + | MCHC | 31.9 (L)Comment: Testing | 32.0 - 35.5 | EXTERNAL | | | | performed at [facility], [address] | g/dL | LAB | | | | [address], | | | | | | [place] [address] | | | | + + + + + + | RDW-CV | 51.2Comment: Testing | 37 - 53 fl | EXTERNAL | | | | performed at [facility], [address] | | LAB | | | | [address], | | | | | | [place] [address] | | | | + + + + + + | Platelet | 205Comment: Testing | 150 - 400 K/uL | EXTERNAL | | | Count | performed at [facility], [address] | | LAB | | | Plasma | [address], | | | | | | [place] [address] | | | | + + + + + + | MPV | 9.9Comment: Testing | fl | EXTERNAL | | | | performed at [facility], [address] | | LAB | | | | [address], | | | | | | [place] [address] | | | | + + + [...] | | | | | [place] [address] | | | | + + + + + + | K | 4.4Comment: Testing | 3.5 - 4.9 | EXTERNAL | | | | performed at [facility], [address] | mmol/L | LAB | | | | [address], | | | | | | [place] [address] | | | | + + + + + + | Cl | 99Comment: Testing | 99 - 109 mmol/L | EXTERNAL | | | | performed at [facility], [address] | | LAB | | | | [address], | | | | | | [place] [address] | | | | + + + + + + | CO2 | 27Comment: Testing | 23 - 32 mmol/L | EXTERNAL | | | | performed at [facility], [address] | | LAB | | | | [address], | | | | | | [place] [address] | | | | + + + + + + | Anion Gap | 14Comment: Testing | 5 - 20 mmol/L | EXTERNAL | | | | performed at [facility], [address] | | LAB | | | | [address], | | | | | | [place] [address] | | | | + + + + + + | Glucose, | 144 (H)Comment: Testing | 65 - 99 mg/dL | EXTERNAL | | | Fasting | performed at [facility], [address] | | LAB | | | | [address], | | | | | | [place] [address] | | | | + + + + + + | BUN | 61 (H)Comment: Testing | 8 - 25 mg/dL | EXTERNAL | | | | performed at [facility], [address] | | LAB | | | | [address], | | | | | | [place] [address] | | | | + + + + + + | Creatinine | 3.4 (H)Comment: Testing | 0.50 - 1.00 | EXTERNAL | | | | performed at [facility], [address] | mg/dL | LAB | | | | [address], | | | | | | [place] [address] | | | | + + + + + + | BUN/Creatin | 18Comment: Testing | | EXTERNAL | | | ine Ratio | performed at [facility], [address] | | LAB | | | | [address], | | | | | | [place] [address] | | | | + + + + + + | Calcium | 9.0Comment: Testing | 8.5 - 10.5 | EXTERNAL | | | | performed at [facility], [address] | mg/dL | LAB | | | | [address], | | | | | | [place] [address] | | | | + + + [...] [address], | | | | | | [place] [address] | | | | + + + [...] | | | Fingerstick | performed at [facility];[address] | | LAB | | | | [address];[place] | | | | | | [address] | | | | + + + [...] | | | Fingerstick | performed at [facility];[address] | | LAB | | | | [address];[place] | | | | | | [address] | | | | + + + [...] | | | Fingerstick | performed at [facility];[address] | | LAB | | | | [address];[place] | | | | | | [address] | | | | + + + [...] | | | Fingerstick | performed at [facility];[address] | | LAB | | | | [address];[place] | | | | | | [address] | | | | + + + [...] EXTERNAL | | | | performed at [facility], [address] | K/u L | LAB | | | | [address], | | | | | | [place] [address] | | | | + + +---- + + + | RED CELL | 3.16 (L)Comment: Testing | 3.7 0 - 5.10 | EXTERNAL | | | COUNT | performed at [facility], [address] | M/u L | LAB | | | | [address], | | | | | | [place] [address] | | | | + + +---- + + + | Hgb | 8.0 (L)Comment: Testing | 11. 3 - 15.5 | EXTERNAL | | | | performed at [facility], [address] | g/d L | LAB | | | | [address], | | | | | | [place] [address] | | | | + + +---- + + + | Hematocrit, | 24.6 (L)Comment: Testing | 34. 0 - 46.0 % | EXTERNAL | | | POC | performed at [facility], [address] | | LAB | | | | [address], | | | | | | [place] [address] | | | | + + +---- + + + | MCV | 77.8 (L)Comment: Testing | 80. 0 - 100.0 fl | EXTERNAL | | | | performed at [facility], [address] | | LAB | | | | [address], | | | | | | [place] [address] | | | | + + +---- + + + | MCH | 25.2 (L)Comment: Testing | 27. 0 - 34.0 pg | EXTERNAL | | | | performed at [facility], [address] | | LAB | | | | [address], | | | | | | [place] [address] | | | | + + +---- + + + | MCHC | 32.4Comment: Testing | 32. 0 - 35.5 | EXTERNAL | | | | performed at [facility], [address] | g/d L | LAB | | | | [address], | | | | | | [place] [address] | | | | + + +---- + + + | RDW-CV | 51.2Comment: Testing | 37 - 53 fl | EXTERNAL | | | | performed at [facility], [address] | | LAB | | | | [address], | | | | | | [place] [address] | | | | + + +---- + + + | Platelet | 234Comment: Testing | 150 - 400 K/uL | EXTERNAL | | | Count | performed at [facility], [address] | | LAB | | | Plasma | [address], | | | | | | [place] [address] | | | | + + +---- + + + | MPV | 9.6Comment: Testing | fl | EXTERNAL | | | | performed at [facility], [address] | | LAB | | | | [address], | | | | | | [place] [address] | | | | + + +---- + + + | Differentia | MANUALComment: Testing | | EXTERNAL | | | l Type | performed at [facility], [address] | | LAB | | | | [address], | | | | | | [place] [address] | | | | + + +---- + + + | Segmented | 69Comment: Testing | % | EXTERNAL | | | Neutrophils | performed at [facility], [address] | | LAB | | | Manual | [address], | | | | | | [place] [address] | | | | + + +---- + + + | % Bands | 3Comment: Testing | % | EXTERNAL | | | | performed at [facility], [address] | | LAB | | | | [address], | | | | | | [place] [address] | | | | + + +---- + + + | Lymphocytes | 23Comment: Testing | % | EXTERNAL | | | Manual | performed at [facility], [address] | | LAB | | | | [address], | | | | | | [place] [address] | | | | + + +---- + + + | Monocytes | 4Comment: Testing | % | EXTERNAL | | | Manual | performed at [facility], [address] | | LAB | | | | [address], | | | | | | [place] [address] | | | | + + +---- + + + | Eosinophils | 1Comment: Testing | % | EXTERNAL | | | Manual | performed at [facility], [address] | | LAB | | | | [address], | | | | | | [place] [address] | | | | + + +---- + + + | Absolute | 6.44Comment: Testing | 1.9 0 - 7.40 | EXTERNAL | | | Neutrophils | performed at [facility], [address] | K/u L | LAB | | | | [address], | | | | | | [place] [address] | | | | + + +---- + + + | Bands | 0.28 (H)Comment: Testing | 0.0 0 - 0.20 | EXTERNAL | | | Manual | performed at [facility], [address] | K/u L | LAB | | | | [address], | | | | | | [place] [address] | | | | + + +---- + + + | Absolute | 2.14Comment: Testing | 1.0 0 - 3.90 | EXTERNAL | | | Lymphocytes | performed at [facility], [address] | K/u L | LAB | | | | [address], | | | | | | [place] [address] | | | | + + +---- + + + | Absolute | 0.37Comment: Testing | 0.0 0 - 0.80 | EXTERNAL | | | Monocytes | performed at [facility], [address] | K/u L | LAB | | | | [address], | | | | | | [place] [address] | | | | + + +---- + + + | Absolute | 0.09Comment: Testing | 0.0 0 - 0.50 | EXTERNAL | | | Eosinophils | performed at [facility], [address] | K/u L | LAB | | | | [address], | | | | | | [place] [address] | | | | + + +---- + + + | RBC | 2+Comment: | | EXTERNAL | | | Morphology | ANISO1+MICRO2+HYPONORMAL | | LAB | | | | PLT MORPHTesting | | | | | | performed at [facility], [address] | | | | | | [facility], | | | | | | [place] [address] | | | | | |HYPO | | | | | |NORMAL PLT MORPH | | | | | |Testing performed at [facility] [facility], [facility] [place] [address] | | | | | | | [...] EXTERNAL | | | | performed at [facility], [address] | mmol/L | LAB | | | | [address], | | | | | | [place] [address] | | | | + + + + + + | K | 4.1Comment: Testing | 3.5 - 4.9 | EXTERNAL | | | | performed at [facility], [address] | mmol/L | LAB | | | | [address], | | | | | | [place] [address] | | | | + + + + + + | Cl | 98 (L)Comment: Testing | 99 - 109 mmol/L | EXTERNAL | | | | performed at [facility], [address] | | LAB | | | | [address], | | | | | | [place], [place] [address] | | | | + + + + + + | CO2 | 28Comment: Testing | 23 - 32 mmol/L | EXTERNAL | | | | performed at [facility], [address] | | LAB | | | | [address], | | | | | | [place] [address] | | | | + + + + + + | Anion Gap | 14Comment: Testing | 5 - 20 mmol/L | EXTERNAL | | | | performed at [facility], [address] | | LAB | | | | [address], | | | | | | [place] [address] | | | | + + + + + + | Glucose, | 143 (H)Comment: Testing | 65 - 99 mg/dL | EXTERNAL | | | Fasting | performed at [facility], [address] | | LAB | | | | [address], | | | | | | [place] [address] | | | | + + + + + + | BUN | 54 (H)Comment: Testing | 8 - 25 mg/dL | EXTERNAL | | | | performed at [facility], [address] | | LAB | | | | [address], | | | | | | [place] [address] | | | | + + + + + + | Creatinine | 3.6 (H)Comment: Testing | 0.50 - 1.00 | EXTERNAL | | | | performed at [facility], [address] | mg/dL | LAB | | | | [address], | | | | | | [place] [address] | | | | + + + + + + | BUN/Creatin | 15Comment: Testing | | EXTERNAL | | | ine Ratio | performed at [facility], [address] | | LAB | | | | [address], | | | | | | [place] [address] | | | | + + + + + + | Calcium | 9.2Comment: Testing | 8.5 - 10.5 | EXTERNAL | | | | performed at [facility], [address] | mg/dL | LAB | | | | [address], | | | | | | [place] [address] | | | | + + + + + + | Protein, | 8.1Comment: Testing | 6.3 - 8.2 g/dL | EXTERNAL | | | Total | performed at [facility], [address] | | LAB | | | | [address], | | | | | | [place] [address] | | | | + + + + + + | Albumin | 3.7Comment: Testing | 3.6 - 5.0 g/dL | EXTERNAL | | | | performed at [facility], [address] | | LAB | | | | [address], | | | | | | [place] [address] | | | | + + + + + + | Globulin | 4.4Comment: Testing | 1.3 - 4.9 g/dL | EXTERNAL | | | | performed at [facility], [address] | | LAB | | | | [address], | | | | | | [place] [address] | | | | + + + + + + | A/G Ratio | 0.8 (L)Comment: Testing | 1.0 - 2.4 | EXTERNAL | | | | performed at [facility], [address] | | LAB | | | | [address], | | | | | | [place] [address] | | | | + + + + + + | Bilirubin | 0.9Comment: Testing | 0.1 - 1.5 mg/dL | EXTERNAL | | | Total | performed at [facility], [address] | | LAB | | | | [address], | | | | | | [place], [place] [address] | | | | + + + + + + | ALP, | 60Comment: Testing | 35 - 115 U/L | EXTERNAL | | | External | performed at [facility], [address] | | LAB | | | | [address], | | | | | | [place], [place] [address] | | | | + + + + + + | AST | 26Comment: Testing | 10 - 45 U/L | EXTERNAL | | | | performed at [facility], [address] | | LAB | | | | [address], | | | | | | [place] [address] | | | | + + + + + + | ALT | 24Comment: Testing | 10 - 65 U/L | EXTERNAL | | | | performed at [facility], [address] | | LAB | | | | [address], | | | | | | [place] [address] | | | | + + + [...] | | | | | | at [facility], [address] | | | | | | [facility], | | | | | | [place] [address] | | | | + + + [...] | | | Fingerstick | performed at [facility];[address] | | LAB | | | | [address];[place] | | | | | | [address] | | | | + + + [...] | | | Fingerstick | performed at [facility];[address] | | LAB | | | | [address];[place] | | | | | | [address] | | | | + + + [...] | | | Fingerstick | performed at [facility];[address] | | LAB | | | | [address];[place], [place] | | | | | | [address] | | | | + + + [...] | | | Fingerstick | performed at [facility];[address] | | LAB | | | | [address];[place] | | | | | | [address] | | | | + + + [...] | | | Fingerstick | performed at [facility];[address] | | LAB | | | | [address];[place], [place] | | | | | | [address] | | | | + + + [...] EXTERNAL | | | | performed at [facility], [address] | K/u L | LAB | | | | [address], | | | | | | [place] [address] | | | | + + +---- + + + | RED CELL | 3.47 (L)Comment: Testing | 3.7 0 - 5.10 | EXTERNAL | | | COUNT | performed at [facility], [address] | M/u L | LAB | | | | [address], | | | | | | [place] [address] | | | | + + +---- + + + | Hgb | 8.7 (L)Comment: Testing | 11. 3 - 15.5 | EXTERNAL | | | | performed at [facility], [address] | g/d L | LAB | | | | [address], | | | | | | [place] [address] | | | | + + +---- + + + | Hematocrit, | 27.4 (L)Comment: Testing | 34. 0 - 46.0 % | EXTERNAL | | | POC | performed at [facility], [address] | | LAB | | | | [address], | | | | | | [place] [address] | | | | + + +---- + + + | MCV | 79.1 (L)Comment: Testing | 80. 0 - 100.0 fl | EXTERNAL | | | | performed at [facility], [address] | | LAB | | | | [address], | | | | | | [place] [address] | | | | + + +---- + + + | MCH | 25.1 (L)Comment: Testing | 27. 0 - 34.0 pg | EXTERNAL | | | | performed at [facility], [address] | | LAB | | | | [address], | | | | | | [place] [address] | | | | + + +---- + + + | MCHC | 31.7 (L)Comment: Testing | 32. 0 - 35.5 | EXTERNAL | | | | performed at [facility], [address] | g/d L | LAB | | | | [address], | | | | | | [place] [address] | | | | + + +---- + + + | RDW-CV | 51.2Comment: Testing | 37 - 53 fl | EXTERNAL | | | | performed at [facility], [address] | | LAB | | | | [address], | | | | | | [place] [address] | | | | + + +---- + + + | Platelet | 232Comment: Testing | 150 - 400 K/uL | EXTERNAL | | | Count | performed at [facility], [address] | | LAB | | | Plasma | [address], | | | | | | [place] [address] | | | | + + +---- + + + | MPV | 10.0Comment: Testing | fl | EXTERNAL | | | | performed at [facility], [address] | | LAB | | | | [address], | | | | | | [place] [address] | | | | + + +---- + + + | Differentia | AUTOMATEDComment: | | EXTERNAL | | | l Type | Testing performed at | | LAB | | | | [facility], [address] | | | | | | [place] | | | | | | [address] | | | | + + +---- + + + | % Segmented | 74.56Comment: Testing | % | EXTERNAL | | | | performed at [facility], [address] | | LAB | | | Neutrophils | [address], | | | | | | [place] [address] | | | | + + +---- + + + | % | 18.72Comment: Testing | % | EXTERNAL | | | Lymphocytes | performed at [facility], [address] | | LAB | | | | [address], | | | | | | [place] [address] | | | | + + +---- + + + | % Monocytes | 4.54Comment: Testing | % | EXTERNAL | | | | performed at [facility], [address] | | LAB | | | | [address], | | | | | | [place] [address] | | | | + + +---- + + + | % | 1.48Comment: Testing | % | EXTERNAL | | | Eosinophils | performed at [facility], [address] | | LAB | | | | [address], | | | | | | [place] [address] | | | | + + +---- + + + | % Basophils | 0.70Comment: Testing | % | EXTERNAL | | | | performed at [facility], [address] | | LAB | | | | [address], | | | | | | [place] [address] | | | | + + +---- + + + | Absolute | 7.25Comment: Testing | 1.9 0 - 7.40 | EXTERNAL | | | Segmented | performed at [facility], [address] | K/u L | LAB | | | Neutrophils | [address], | | | | | | [place] [address] | | | | + + +---- + + + | Absolute | 1.82Comment: Testing | 1.0 0 - 3.90 | EXTERNAL | | | Lymphocytes | performed at [facility], [address] | K/u L | LAB | | | | [address], | | | | | | [place] [address] | | | | + + +---- + + + | Absolute | 0.44Comment: Testing | 0.0 0 - 0.80 | EXTERNAL | | | Monocytes | performed at [facility], [address] | K/u L | LAB | | | | [address], | | | | | | [place] [address] | | | | + + +---- + + + | Absolute | 0.14Comment: Testing | 0.0 0 - 0.50 | EXTERNAL | | | Eosinophils | performed at [facility], [address] | K/u L | LAB | | | | [address], | | | | | | [place] [address] | | | | + + +---- + + + | Absolute | 0.07Comment: Testing | 0.0 0 - 0.10 | EXTERNAL | | | Basophils | performed at [facility], [address] | K/u L | LAB | | | | [facility], | | | | | | [place] [address] | | | | + + +---- + + + | RBC | NORMAL PLT MORPHComment: | | EXTERNAL | | | Morphology | 1+ANISO1+MICROTesting | | LAB | | | | performed at [facility], [address] | | | | | | [facility], | | | | | | [place] [address] | | | | | |MICRO | | | | | |Testing performed at [facility], [address] [place] [address] | | | | | | | [...] | | | | | [place] [address] | | | | + + + [...] EXTERNAL | | | | performed at [facility], [address] | | LAB | | | | [address], | | | | | | [place] [address] | | | | + + + [...] | | | | | [place] [address] | | | | + + + + + + | K | 4.3Comment: Testing | 3.5 - 4.9 | EXTERNAL | | | | performed at [facility], [address] | mmol/L | LAB | | | | [address], | | | | | | [place] [address] | | | | + + + + + + | Cl | 101Comment: Testing | 99 - 109 mmol/L | EXTERNAL | | | | performed at [facility], [address] | | LAB | | | | [address], | | | | | | [place] [address] | | | | + + + + + + | CO2 | 26Comment: Testing | 23 - 32 mmol/L | EXTERNAL | | | | performed at [facility], [address] | | LAB | | | | [address], | | | | | | [place] [address] | | | | + + + + + + | Anion Gap | 14Comment: Testing | 5 - 20 mmol/L | EXTERNAL | | | | performed at [facility], [address] | | LAB | | | | [address], | | | | | | [place] [address] | | | | + + + + + + | Glucose, | 186 (H)Comment: Testing | 65 - 99 mg/dL | EXTERNAL | | | Fasting | performed at [facility], [address] | | LAB | | | | [address], | | | | | | [place] [address] | | | | + + + + + + | BUN | 51 (H)Comment: Testing | 8 - 25 mg/dL | EXTERNAL | | | | performed at [facility], [address] | | LAB | | | | [address], | | | | | | [place] [address] | | | | + + + + + + | Creatinine | 3.6 (H)Comment: Testing | 0.50 - 1.00 | EXTERNAL | | | | performed at [facility], [address] | mg/dL | LAB | | | | [address], | | | | | | [place] [address] | | | | + + + + + + | BUN/Creatin | 14Comment: Testing | | EXTERNAL | | | ine Ratio | performed at [facility], [address] | | LAB | | | | [address], | | | | | | [place] [address] | | | | + + + + + + | Calcium | 8.8Comment: Testing | 8.5 - 10.5 | EXTERNAL | | | | performed at [facility], [address] | mg/dL | LAB | | | | [facility], | | | | | | [place] [address] | | | | + + + [...] | | | | | | at [facility], [address] | | | | | | [facility], | | | | | | [place] [address] | | | | + + + [...] EXTERNAL | | | | performed at [facility], [address] | | LAB | | | | [address], | | | | | | [place] [address] | | | | + + + + + + | RBC, UA | 0-2Comment: Testing | 0 - 5 /hpf | EXTERNAL | | | | performed at [facility], [address] | | LAB | | | | [address], | | | | | | [place] [address] | | | | + + + + + + | Bacteria, | TRACE (A)Comment: | | EXTERNAL | | | UA | Testing performed at | | LAB | | | | [facility], [address] | | | | | | [place] | | | | | | [address] | | | | + + + + + + | Epithelial | 26-50Comment: Testing | /lpf | EXTERNAL | | | Cells | performed at [facility], [address] | | LAB | | | | [address], | | | | | | [place] [address] | | | | + + + + + + | HYALINE | NONE SEENComment: | | EXTERNAL | | | CASTS UA | Testing performed at | | LAB | | | | [facility], [address] | | | | | | [place] | | | | | | [address] | | | | + + + [...] | | | | | [place] [address] | | | | + + + + + + | Clarity | CLEARComment: Testing | | EXTERNAL | | | | performed at [facility], [address] | | LAB | | | | [address], | | | | | | [place] [address] | | | | + + + + + + | Specific | 1.009Comment: Testing | 1.002 - 1.030 | EXTERNAL | | | Roosevelt | performed at [facility], [address] | | LAB | | | | [address], | | | | | | [place] [address] | | | | + + + + + + | Leukocyte | SMALL (A)Comment: | | EXTERNAL | | | Esterase, | Testing performed at | | LAB | | | Urine | [facility], [address] | | | | | | [place] | | | | | | [address] | | | | + + + + + + | Nitrite, | NEGATIVEComment: Testing | | EXTERNAL | | | Urine | performed at [facility], [address] | | LAB | | | | [address], | | | | | | [place] [address] | | | | + + + + + + | Urobilinoge | 1.0Comment: Testing | mg/dL | EXTERNAL | | | n, Urine | performed at [facility], [address] | | LAB | | | | [address], | | | | | | [place] [address] | | | | + + + + + + | Protein, | NEGATIVEComment: Testing | mg/dL | EXTERNAL | | | Urine | performed at [facility], [address] | | LAB | | | | [address], | | | | | | [place] [address] | | | | + + + + + + | pH, Urine | 7.5Comment: Testing | 5.0 - 8.0 | EXTERNAL | | | | performed at [facility], [address] | | LAB | | | | [address], | | | | | | [place] [address] | | | | + + + + + + | Blood, | NEGATIVEComment: Testing | | EXTERNAL | | | Urine | performed at [facility], [address] | | LAB | | | | [address], | | | | | | [place] [address] | | | | + + + + + + | Ketones | NEGATIVEComment: Testing | mg/dL | EXTERNAL | | | | performed at [facility], [address] | | LAB | | | | [address], | | | | | | [place] [address] | | | | + + + + + + | Bilirubin, | NEGATIVEComment: Testing | | EXTERNAL | | | Urine | performed at [facility], [address] | | LAB | | | | [address], | | | | | | [place] [address] | | | | + + + + + + | Glucose, | NEGATIVEComment: Testing | mg/dL | EXTERNAL | | | Urine | performed at [facility], [address] | | LAB | | | | [address], | | | | | | [place] [address] | | | | + + + [...] | | | Fingerstick | performed at [facility];[address] | | LAB | | | | [address];[place] | | | | | | [address] | | | | + + + [...] 2:41AM | | | Referring Provider Line: [phone] ID: [id number] | | + + + [...] Jun 15 2016 2:41AM Referring Provider Line: [phone] ID: [id number] | |FINDINGS: | |Right Kidney: [...] 15 2016 2:41AM Referring Provider Line: [phone] ID: [id number] | + + [place] C-Arm [...]
--- OUTSIDE RECORDS SUMMARY | ~2019-10-02 | XMS | Encounter Summary ---
Demographics + + + | Address | [address] | | | [place] [address] | + + + | Home Phone [...] Organization | [facility] | | | and [place] | + + + | Address | Unknown | + + + | Phone | Unavailable | + + + Support + + + + + | Name | Relationship | Address | Phone | + + + + + | Kyaw Woodson | ECON | [place], [place] | | + + + + + | Barbara Cabrera | ECON | Unknown | | + + + + + | Dim[place] Hathaway | ECON | Unknown | | + + + + + Care Team Providers + +------+ + | Care Hydraulic Jack Adjuster Name | Role | Phone | + +------+ + | Jennyfer Gresham MD | PCP | | + +------+ + Reason for Visit +--------+ + | Reason | Comments | +--------+ + | Other | UTI Concern | +--------+ + Encounter Details +--------+ + + + + | Date | Type | Department | Care Team | Description | +--------+ + + + + | 07/04/ | Telephone | [facility] | [place], | Other (UTI Concern) | | 2019 | | NEPHROLOGY [place] | [facility] | | | | | [address] | Stagecraft Teacher | | | | | [address] [place] | | | | | | [address] | | | | | | [phone] | | | +--------+ + + + [...] [place] | | | | | | [address] | | | | | | | [...] | | | | | [place] [address] | | | | | | [phone] | | | | | | | | +--------+ + + + + | 11/25/ | Office | Nephrology | Kei Arthur MD | | | 2019 | Visit | | [address] [place] | | | | | | [address] [place], [place] | | | | | | [address] | | | | | | | | +--------+ + + + + documented as of this encounter Visit Diagnoses Not on filedocumented in this encounter"
--- OUTSIDE RECORDS SUMMARY | ~2019-10-02 | XMS | Encounter Summary ---
Demographics + + + | Address | [address] | | | [place] [address] | + + + | Home Phone | | + + + | Preferred Language | Unknown | + + + | Marital Status | Single | + + + | Yazdanism Affiliation | 1041 | + + + | Race | Unknown | + + + | Ethnic Group | Unknown | + + + Author + + + | Author | [facility] | | | and [place] | + + + | Organization | [facility] | | | and [place] | + + + | Address | Unknown | + + + | Phone | Unavailable | + + + Support + + + + + | Name | Relationship | Address | Phone | + + + + + | Kyaw Woodson | ECON | [place], [place] | | + + + + + | Barbara Cabrera | ECON | Unknown | | + + + + + | Dimple Hathaway | ECON | Unknown | | + + + + + Care Team Providers + +------+ + | Care Financial Services Technician Name | Role | Phone | + +------+ + | No, Physician | PCP | Unavailable | + +------+ + Encounter Details +--------+ + + + + | Date | Type | Department | Care Team | Description | +--------+ + + + + | 03/16/ | Orders Only | [facility] | Conversion | | | 2018 | | ENDOCRINOLOGY [address] | Transaction, | | | | | [address] | Provider Unknown | | | | | [place], [place] | | | | | | [address] | (Fax) | | | | | [phone] | | | +--------+ + + + [...] [place] | | | | | | [address] | | | | | | | [...] | | | | | [place] [address] | | | | | | [phone] | | | | | | | | +--------+ + + + + | 11/25/ | Office | Nephrology | Kei Arthur MD | | | 2019 | Visit | | [address] [facility] | | | | | | [address] [place], [place] | | | | | | [address] | | | | | | | | +--------+ + + + + documented as of this encounter Procedures + +--------+ + + + | Procedure Name | Priori | Date/Time | Associated Diagnosis | Comments | | | ty | | | | + +--------+ + + + | HM DIABETES EYE EXAM | Routin | 03/16/2018 | | Results for this | | | e | 12:00 AM | | procedure are in the | | | | PDT | | results section. | + +--------+ + + + documented in this encounter Results DIABETES EYE EXAM (03/16/2018 12:00 AM PDT) + +-------+ + + + | Component | Value | Ref Range | Performed | Pathologist | | | | | At | Signature | + +-------+ + + + | Patient | Done | | EXTERNAL | | | Diabetic? | | | LAB | | + [...]
--- OUTSIDE RECORDS SUMMARY | ~2019-10-02 | XMS | Encounter Summary ---
Demographics + + + | Address | [address] | | | [place] [address] | + + + | Home Phone | | + + + | Preferred Language | Unknown | + + + | Marital Status | Single | + + + | Jehovah'S Witness Affiliation | 1041 | + + + | Race | Unknown | + + + | Ethnic Group | Unknown | + + + Author + + + | Author | [facility] | | | and [place] | + + + | Organization | [facility] | | | and [place] | + + + | Address | Unknown | + + + | Phone | Unavailable | + + + Support + + + + + | Name | Relationship | Address | Phone | + + + + + | Kyaw Woodson | ECON | [place], [place] | | + + + + + | Barbara Cabrera | ECON | Unknown | | + + + + + | Dimple Hathaway | ECON | Unknown | | + + + + + Care Team Providers + +------+ + | Care Steam Station Supervisor Name | Role | Phone | + +------+ + | Daniel Land NP | PCP | | + +------+ + Encounter Details +--------+ + + + + | Date | Type | Department | Care Team | Description | +--------+ + + + + | 11/05/ | Orders Only | [facility] | Kei Arthur MD | | | 2015 | | NEPRHOLOGY [place] | [address] | | | | | [address] | [address] [place], [place] | | | | | [address] [place], [place] | [address] | | | | | [address] | | | | | | [phone] | | | +--------+ + + + [...] [address] | | | | | | [facility] | | | | | | [place] | | | | | | [address] | | | | | | | [...] [address] | | | | | | [place] [address] | | | | | | [phone] | | | | | | | | +--------+ + + + + | 11/25/ | Office | Nephrology | Kei Arthur MD | | | 2019 | Visit | | [address] | | | | | | [address] [facility] | | | | | | [address] | | | | | | | [...] LVLs A4C: 7.40 | | | cm Medical Safety Director: TREVER Authenticated by: Josué Colby DO Report | | | Date/Time: -- [id number]:10:50 | | + + + + + [...] MOD A4C: 63.87 mlLVLs A4C: 7.40 cm Medical Safety Director: | | DBSAuthenticated by: Josué Howard Date/Time: -- [id number]:10:50 | | IMPRESSION: 1. See Dictation2. Suggestive/consistant [...] |LVLs A4C: 7.40 cm | | | |Medical Safety Director: DBS | |Authenticated by: Josué Colby DO | |Report Date/Time: -- [id number]:10:50 | | | |IMPRESSION: | |1. See Dictation | |2. Suggestive/consistant with CAD. Large apical area of akinesis, Grade 1 diastolic abnorm ality, LVEF 35-40%. LA/RA/RV NML. 3. Mild MR, trace TR. | + + documented in this encounter Visit Diagnoses Not on filedocumented in this encounter"
--- OUTSIDE RECORDS SUMMARY | ~2019-10-02 | XMS | Encounter Summary ---
Demographics + + + | Address | [address] | | | [place] [address] | + + + | Home Phone | | + + + | Preferred Language | Unknown | + + + | Marital Status | Single | + + + | Evangelical Affiliation | 1041 | + + + | Race | Unknown | + + + | Ethnic Group | Unknown | + + + Author + + + | Author | [facility] | | | and [place] | + + + | Organization | [facility] | | | and [place] | + + + | Address | Unknown | + + + | Phone | Unavailable | + + + Support + + + + + | Name | Relationship | Address | Phone | + + + + + | Kyaw Woodson | ECON | [place], [place] | | + + + + + | Barbara Cabrera | ECON | Unknown | | + + + + + | Dimple Hathaway | ECON | Unknown | | + + + + + Care Team Providers + +------+ + | Care Director Of Rehabilitation Name | Role | Phone | + +------+ + | Daniel Land NP | PCP | | + +------+ + Encounter Details +--------+ + + + + | Date | Type | Department | Care Team | Description | +--------+ + + + + | 06/16/ | Orders Only | [facility] | Kei Arthur MD | | | 2014 | | NEPRHOLOGY [place] | [address] | | | | | [address] | [address] [place], [place] | | | | | [address] [place], [place] | [address] | | | | | [address] | | | | | | [phone] | | | +--------+ + + + [...] [address] | | | | | | [facility] | | | | | | [address] [place] | | | | | | [address] | | | | | | | [...] [address] | | | | | | [place] [address] | | | | | | [phone] | | | | | | | | +--------+ + + + + | 11/25/ | Office | Nephrology | Kei Arthur MD | | | 2019 | Visit | | [address] | | | | | | [address] [facility] | | | | | | [address] | | | | | | | | +--------+ + + + + documented as of this encounter Procedures + +--------+ + + + | Procedure Name | Priori | Date/Time | Associated Diagnosis | Comments | | | ty | | | | + +--------+ + + + | EXTERNAL LAB: CBC | Routin | 08/23/2015 | | Results for this | | | e | 12:00 AM | | procedure are in the | | | | PST | | results section. | + +--------+ + + + | PARATHYROID HORMONE, | Routin | 08/23/2015 | | Results for this | | INTACT AND CALCIUM | e | 12:00 AM | | procedure are in the | | | | PST | | results section. | + +--------+ + + + | PROTEIN/CREATININE | Routin | 08/23/2015 | | Results for this | | RATIO, URINE | e | 12:00 AM | | procedure are in the | | | | PST | | results section. | + +--------+ + + + | MAGNESIUM | Routin | 08/23/2015 | | Results for this | | | e | 12:00 AM | | procedure are in the | | | | PST | | results section. | + +--------+ + + + | RENAL FUNCTION PANEL | Routin | 08/23/2015 | | Results for this | | | e | 12:00 AM | | procedure are in the | | | | PST | | results section. | + +--------+ + + + | URINALYSIS WITH | Routin | 06/16/2015 | | Results for this | | MICROSCOPIC IF | e | 12:00 AM | | procedure are in the | | INDICATED | | PDT | | results section. | + +--------+ + + + | BASIC METABOLIC | Routin | 06/16/2015 | | Results for this | | PANEL | e | 12:00 AM | | procedure are in the | | | | PDT | | results section. | + +--------+ + + + documented in this encounter Results Parathyroid Hormone, Intact and Calcium (08/23/2015 12:00 AM PST) + +-------+ + + + | Component | Value | Ref Range | Performed | Pathologist | | | | | At | Signature | + +-------+ + + + | PTH Intact | 28.32 | 15 - 65 | EXTERNAL | | | | | | LAB | | + +-------+ + + + | Calcium | | | EXTERNAL | | | [...] + +---------+ + + Protein/Creatinine Ratio, Urine (08/23/2015 12:00 AM PST) + + + + + + | Component | Value | Ref Range | Performed | Pathologist | | | | | At | Signature | + + + + + + | Protein/Cre | 482.2 (A) | 0 - 150 | EXTERNAL [...] + +---------+ + + External Lab: CBC (08/23/2015 12:00 AM PST) + + + + + + | Component | Value | Ref Range | Performed | Pathologist | | | | | At | Signature | + + + + + + | WBC | 11.1 (A) | 4.5 - 11.0 10 | EXTERNAL | | | | | | LAB | | + + + + + + | RED CELL | 3.79 (A) | 3.8 - 5.1 10 | EXTERNAL | | | COUNT | | | LAB | | + + + + + + | Hgb | 11.0 (A) | 12.0 - 16.0 | EXTERNAL | | | | | g/dL | LAB | | + + + + + + | Hematocrit, | 32.5 (A) | 35 - 45 % | EXTERNAL | | | POC | | | LAB | | + + + + + + | MCV | 85.7 | 81 - 99 fL | EXTERNAL [...] + + + + | Platelet | 369 | 140 - 440 K/ L | EXTERNAL | | | Count | | | LAB | | | Plasma | | | | | + + + + + + | RDW-CV | 12.4 | 10.5 - 15.0 % | EXTERNAL | | | | | | LAB | | + + + + + + | MPV | | fL | EXTERNAL | | | | | | LAB | | + + + + + + | Differentia | Auto | | EXTERNAL | | | l Type | | | LAB | | + + + + + + | % Segmented | 62 | 39 - 80 % | EXTERNAL | | | | | | LAB | | | Neutrophils | | | | | + + + + + + | % | 34 | 24 - 44 % | EXTERNAL | | | Lymphocytes | | | LAB | | + + + + + + | % Monocytes | 2 | 0 - 12 % | EXTERNAL | | | | | | LAB | | + + + + + + | % | 0 | 0 - 6 % | EXTERNAL | | | Eosinophils | | | LAB | | + + + + + + | % Basophils | 1 | 0 - 2 % | EXTERNAL [...] | | + +---------+ + + Magnesium (08/23/2015 12:00 AM PST) + +-------+ + + [...] + +---------+ + + Renal Function Panel (08/23/2015 12:00 AM PST) + + + + + + | Component | Value | Ref Range | Performed | Pathologist | | | | | At | Signature | + + + + + + | Glucose, | 263 (A) | 70 - 100 mg/dL | EXTERNAL | | | Fasting | | | LAB | | + + + + + + | BUN | 22 | 6 - 23 mg/dL | EXTERNAL | | | | | | LAB | | + + + + + + | Creatinine | 2.28 (A) | 0.60 - 1.35 | EXTERNAL [...] + + + + | Cl | 97 | 95 - 112 mmol/L | EXTERNAL | | | | | | LAB | | + + + + + + | CO2 | 19 | 19 - 31 mmol/L | EXTERNAL | | | | | | LAB | | + + + + + + | Anion Gap | 19.0 | 7 - 21 mmol/L | EXTERNAL | | | | | | LAB | | + + + + + + | eGFR if not | | | EXTERNAL | | | | | | LAB | | | EQUATORIAL GUINEAN | | | | | + + + + + + | Phosphorus, | 3.9 | 2.5 - 5.0 | EXTERNAL | | | Inorganic | | | LAB | | + + + + + + | BUN/Creatin | 9.6 | 6.0 - 28.6 | EXTERNAL | | | ine Ratio | | | LAB | | + + + + + + | Calcium | 9.7 | 8.4 - 10.2 | EXTERNAL | [...] + + Urinalysis with Microscopic if Indicated (06/16/2015 12:00 AM PDT) + + + + [...] + + + | Spec Grav, | 1.011 | 1.005 - 1.030 | EXTERNAL | [...] + + + + | Total | Negatove | | EXTERNAL | | | Protein | | | LAB | | + + + + + + | pH, Urine | 5 | 5 - 9 | EXTERNAL | | | | | | LAB | | + + + + + + | Blood, | Negative | | EXTERNAL | | | Urine | | | LAB | | + + + + + + | Ketones | Negatove | | EXTERNAL | | | | [...] + +---------+ + + Basic Metabolic Panel (06/16/2015 12:00 AM PDT) + + + + + + | Component | Value | Ref Range | Performed | Pathologist | | | | | At | Signature | + + + + + + | Glucose, | 153 (A) | 70 - 100 mg/dL | EXTERNAL | | | Fasting | | | LAB | | + + + + + + | BUN | 21 | 6 - 23 mg/dL | EXTERNAL | | | | | | LAB | | + + + + + + | Creatinine | 2.08 (A) | 0.60 - 1.35 | EXTERNAL | | | | | mg/dL | LAB | | + + + + + + | BUN/Creatin | 10.1 | 6.0 - 28.6 | EXTERNAL | | | ine Ratio | | | LAB | | + + + + + + | Calcium | 9.7 | 8.4 - 10.2 | EXTERNAL | | | | | mg/dL | LAB | | + + + + + + | Na | 134 | 132 - 143 | EXTERNAL | | | | | mmol/L | LAB | | + + + + + + | K | 4.2 | 3.6 - 5.1 | EXTERNAL | | | | | mmol/L | LAB | | + + + + + + | Cl | 102 | 95 - 112 mmol/L | EXTERNAL | | | | | | LAB | | + + + + + + | CO2 | 18 (A) | 19 - 112 mmol/L | EXTERNAL | | | | | | LAB | | + + + + + + | Anion Gap | 18.2 | 7 - 21 mmol/L | EXTERNAL | | | | | | LAB | | + + + + + + | Estimated | 26 (A) | 60 - 140 mg/dL | [...]
--- OUTSIDE RECORDS SUMMARY | ~2019-10-02 | XMS | Encounter Summary ---
Demographics + + + | Address | [address] | | | [place] [address] | + + + | Home Phone [...] Organization | [facility] | | | and [place] | + + + | Address | Unknown | + + + | Phone | Unavailable | + + + Support + + + + + | Name | Relationship | Address | Phone | + + + + + | Kyaw Woodson | ECON | [place], [place] | | + + + + + | Barbara Cabrera | ECON | Unknown | | + + + + + | Dimple Hathaway | ECON | Unknown | | + + + + + Care Team Providers + +------+ + | Care Wood Finisher Name | Role | Phone | + +------+ + | Daniel Land NP | PCP | | + +------+ + Encounter Details +--------+ + + + + | Date | Type | Department | Care Team | Description | +--------+ + + + + | 09/22/ | Orders Only | [facility] | Conversion | | | 2018 | | NEPHROLOGY [place] | Transaction, | | | | | [address] [facility] [address] | Provider Unknown | | | | | [address] [place] | | | | | | [address] | (Fax) | | | | | [phone] | | | +--------+ + + + [...] | | | | | [facility] | | | | | | [address] [place] | | | | | | [address] | | | | | | | [...] [address] | | | | | | [place] [address] | | | | | | [phone] | | | | | | | | +--------+ + + + + | 11/25/ | Office | Nephrology | Kei Arthur MD | | | 2019 | Visit | | [address] [facility] | | | | | | [address] [place] | | | | | | [address] | | | | | | | [...]
--- OUTSIDE RECORDS SUMMARY | ~2019-10-02 | XMS | Encounter Summary ---
Demographics + + + | Address | [address] | | | [place] [address] | + + + | Home Phone | | + + + | Preferred Language | Unknown | + + + | Marital Status | Single | + + + | Adventist Affiliation | 1041 | + + + | Race | Unknown | + + + | Ethnic Group | Unknown | + + + Author + + + | Author | [facility] | | | and [place] | + + + | Organization | [facility] | | | and [place] | + + + | Address | Unknown | + + + | Phone | Unavailable | + + + Support + + + + + | Name | Relationship | Address | Phone | + + + + + | Kyaw Woodson | ECON | [place], [place] | | + + + + + | Barbara Cabrera | ECON | Unknown | | + + + + + | Dimple Hathaway | ECON | Unknown | | + + + + + Care Team Providers + +------+ + | Care Retail Customer Service Representative Name | Role | Phone | + +------+ + | No, Physician | PCP | Unavailable | + +------+ + Encounter Details +--------+ + + + + | Date | Type | Department | Care Team | Description | +--------+ + + + + | 12/22/ | Orders Only | [facility] | Conversion | | | 2017 | | NEPHROLOGY [place] | Transaction, | | | | | [address] | Provider Unknown | | | | | [address] [place], [place] | | | | | | [address] | (Fax) | | | | | [phone] | | | +--------+ + + + [...] [place] | | | | | | [id number] | | | | | | | [...] | | | | | [place] [address] | | | | | | [phone] | | | | | | | | +--------+ + + + + | 11/25/ | Office | Nephrology | Kei Arthur MD | | | 2019 | Visit | | [address] [facility] | | | | | | [address] [place], [place] | | | | | | [address] | | | | | | | | +--------+ + + + + documented as of this encounter Procedures + +--------+ + + + | Procedure Name | Priori | Date/Time | Associated Diagnosis | Comments | | | ty | | | | + +--------+ + + + | VITAMIN D, | Routin | 12/22/2017 | | Results for this | | DEFICIENCY SCREEN | e | 8:28 AM | | procedure are in the | | (25-HYDROXY) | | PDT | | results section. | + +--------+ + + + | CULTURE, URINE | Routin | 12/22/2017 | | Results for this | | | e | 8:28 AM | | procedure are in the | | | | PDT | | results section. | + +--------+ + + + | TRANSFERRIN | Routin | 12/22/2017 | | Results for this | | | e | 8:28 AM | | procedure are in the | | | | PDT | | results section. | + +--------+ + + + documented in this encounter Results Culture, Urine (12/22/2017 8:28 AM PDT) + + | Specimen | [...] + + Vitamin D, Deficiency Screen (25-Hydroxy) (12/22/2017 8:28 AM PDT) + +-------+ + + + | Component | Value | Ref Range | Performed | Pathologist | | | | | At | Signature | + +-------+ + + + | Vit D, | 41 | 30 - 100 | EXTERNAL | [...] | | + +---------+ + + Transferrin (12/22/2017 8:28 AM PDT) + +--------+ + + + | Component | Value | Ref Range | Performed | Pathologist | | | | | At | Signature | + +--------+ + + + | TRANSFERRIN | 287.28 | 192 - 382 | EXTERNAL | [...]
--- OUTSIDE RECORDS SUMMARY | ~2019-10-02 | XMS | Encounter Summary ---
Demographics + + + | Address | [address] | | | [place] [address] | + + + | Home Phone | | + + + | Preferred Language | Unknown | + + + | Marital Status | Single | + + + | Evangelical Affiliation | 1041 | + + + | Race | Unknown | + + + | Ethnic Group | Unknown | + + + Author + + + | Author | [facility] | | | and [place] | + + + | Organization | [facility] | | | and [place] | + + + | Address | Unknown | + + + | Phone | Unavailable | + + + Support + + + + + | Name | Relationship | Address | Phone | + + + + + | Kyaw Woodson | ECON | [place], [place] | | + + + + + | Barbara Cabrera | ECON | Unknown | | + + + + + | Dimple Hathaway | ECON | Unknown | | + + + + + Care Team Providers + +------+ + | Care Environmental Program Manager Name | Role | Phone | + +------+ + PCP | Unavailable | + +------+ + Encounter Details +--------+ + + + + | Date | Type | Department | Care Team | Description | +--------+ + + + + | 10/04/ | Hospital | [facility] | Chrissie Walker DO | Unstable angina | | 2013 - | Encounter | [facility] | [address] | ([facility]); Elevated | | | | CARE FLOOR [address] | [place] [address] | troponin | | 10/06/ | | [address] | [phone] | | | 2012 | | [place], [place] | | | | | | [address] | | | | | | [phone] | | | +--------+ + + + [...] Date of Service: 10/06/12 1018 Status: Signed Track Machine Operator Repairer: Sara Arvizu MD (Physician) [facility] Service: Hospitalist Discharge Summary Date of Admission: [...] II who presents as a transfer from [facility] for NSTEMI. CC of chest pain. [...] for a mildly elevated creatinine. Ff-up with groundskeeper in 2 weeks. All of her questions [...] mg by mouth daily. Respiratory Therapy Supplies [facility] Portable home oxygen as recommended by RT [...] Procedure Component Value Units Date/Time POCT glucose [[id number]] (Abnormal) Collected:10/06/12 0516 GLUCOSE,POC SCREEN 293 (H) mg/dL Updated:10/06/1249 Basic metabolic panel [[id number]] (Abnormal) Collected:10/06/12416 Specimen Information:Blood Updated:10/06/12546 SODIUM 131 (L) mmol/L POTASSIUM 3.8 mmol/L CHLORIDE 96 (L) mmol/L CO2 26 mmol/L ANION GAP AGAP 14 mmol/L GLUCOSE 318 (H) mg/dL BUN 16 mg/dL CREATININE 1.28 (H) mg/dL BUN/CREAT 12 CALCIUM 8.4 (L) mg/dL EGFR 49 (L) mL/min/1.73m2 CBC w/auto diff (reflex to manual) [[id number]] (Abnormal) Collected:10/06/12416 Specimen Information:Blood Updated:10/06/12546 WBC 9.5 [...] K/uL BASOPHILS ABS 0.0 K/uL POCT glucose [[id number]] (Abnormal) Collected:10/05/12 2142 GLUCOSE,POC SCREEN 376 (H) mg/dL Updated:10/05/12 2214 POCT glucose [[id number]] (Abnormal) Collected:10/05/12 1615 GLUCOSE,POC SCREEN 289 (H) mg/dL Updated:10/05/12 1639 POCT glucose [[id number]] (Abnormal) Collected:10/05/12 1204 GLUCOSE,POC SCREEN 284 (H) mg/dL Updated:10/05/12 1222 Troponin I [[id number]] (Abnormal) Collected:10/05/12 112 Specimen Information:Blood Updated:10/05/12 1208 TROPONIN I 1.21 (HH) ng/mL CK [[id number]] Collected:10/05/12 112 Specimen Information:Blood Updated:10/05/12 1208 CPK 73 U/L POC ACT, arterial [[id number]] (Abnormal) Collected:10/05/12 1010 POC ACT 232 (H) seconds Updated:10/05/12 1043 CK MB [[id number]] Collected:10/05/12 0458 MMB 3.5 ng/mL Updated:10/05/12 0637 CK-MB Index 4.1 Comprehensive metabolic panel [[id number]] (Abnormal) Collected:10/05/12 045 Specimen Information:Blood Updated:10/05/12 0637 [...] 23 U/L EGFR >60 mL/min/1.73m2 Lipid panel [[id number]] (Abnormal) Collected:10/05/12 0458 Specimen Information:Blood Updated:10/05/12 0637 CHOLESTEROL 160 mg/dL Triglycerides 1042 (H) mg/dL HDL CHOL 23 (L) mg/dL LDL CALC 71 mg/dL Magnesium [[id number]] Collected:10/05/12457 Specimen Information:Blood Updated:10/05/12636 MAGNESIUM 2.0 mg/dL Phosphorus [[id number]] Collected:10/05/12457 Specimen Information:Blood Updated:10/05/12636 PHOSPHORUS 3.7 mg/dL CPK [[id number]] Collected:10/05/12457 CPK 86 U/L Updated:10/05/12636 Troponin I [[id number]] (Abnormal) Collected:10/05/12457 TROPONIN I 2.00 (HH) ng/mL Updated:10/05/12636 POCT glucose [[id number]] (Abnormal) Collected:10/05/12 0204 GLUCOSE,POC SCREEN 347 (H) mg/dL Updated:10/05/12614 Glycohemoglobin A1c [[id number]] (Abnormal) Collected:10/05/12457 Specimen Information:Blood Updated:10/05/12608 HEMOGLOBIN A1C 8.1 (H) % ESTIMATED AVG GLUCOSE 186 (H) mg/dL POCT glucose [[id number]] (Abnormal) Collected:10/05/12 0558 GLUCOSE,POC SCREEN 302 (H) mg/dL Updated:10/05/12607 aPTT [[id number]] Collected:10/05/12457 APTT 31 seconds Updated:10/05/1248 CBC w/auto diff (reflex to manual) [[id number]] Collected:10/05/12457 Specimen Information:Blood Updated:10/05/12534 WBC 10.4 K/uL [...] 0.0 K/uL Urinalysis w/micro (reflex to culture) [[id number]] (Abnormal) Collected:10/05/12 0155 Specimen Information:Urine Updated:10/05/12 021 [...] on file. Follow up: Jhonny Bennett MD [phone] in 1 week Pain Specialist [facility] EMERGENCY DEPARTMENT [address] [facility] [address] Kei Charles MD [address] [facility] [address] in 2 weeks BMP ordered for Tuesday10/10/12 [...] mg by mouth daily. Respiratory Therapy Supplies [facility] Portable home oxygen as recommended by RT [...] charge summary. Sara Arvizu MD 10/06/2012 [place] in this encounter Medications at [...] Cleopatra Pinzon RD Service: (none) Author Type: Lead Relay Tester Filed: 10/05/12 1425 Date of Service: 10/05/121420 Status: Signed Track Machine Operator Repairer: Cleopatra Pinzon RD (Lead Relay Tester) Elevated blood sugars. Pt has been in [...] Will f/u Cleopatra Pinzon RD, CD, Inpatient Lead Relay Tester 10/05/2012 2:25 PM Sana Solano RPH - 0 10/05/2012 10:52 AM PST Progress Notes by Sana Park RPH at 10/05/12 1052 Author: Sana Park RPH Service: (none) Author Type: Pharmacist Filed: 10/05/12 1052 Date of Service: 10/05/121051 Status: Signed Track Machine Operator Repairer: Sana Park RPH (Pharmacist) Renal Dosing Monitoring: Alondra Caballero 42 y.o. female Pharmacy dosing for renal function per Dr. Walker Plan per protocol: [id number] ml/min Renal adjustments are not necessary Pharmacy [...] 1001 Date of Service: 10/05/1259 Status: Signed Track Machine Operator Repairer: Fozia Sandoval RN (Registered Nurse) Pt sleeping at this time. When awakened, pt c/o chest pain rated at 2/10 on pain scale. Fa lls asleep easily. Educated pt regarding pending heart cath, all questions answered. onver jessica Transaction, Provider Unknown - 10/05/2012 8:54 AM PST Progress Notes by Fozia Sandoval RN at 10/05/12 0854 Author: oFzia Sandoval RN Service: (none) Author Type: Registered Nurse Filed: 10/05/12 0855 Date of Service: 10/05/12 0854 Status: Signed Track Machine Operator Repairer: Fozia Sandoval RN (Registered Nurse) Pt c/o 7/10 midsternal chest pain described as heaviness. Nicolas CIFUENTES notified and medicate d with PRN nitro and morphine. onver jessica Transaction, Provider Unknown - 10/05/2012 8:53 AM PST Progress Notes by Aliya Thapa RPH at 10/05/12852 Author: Aliya Thapa RPH Service: (none) Author Type: Pharmacist Filed: 10/05/12852 Date of Service: 10/05/12852 Status: Signed Track Machine Operator Repairer: Aliya Thapa RPH (Pharmacist) Talked to day RN (Fozia) she will clarify with MD & enter new order. ALIYA THAPA 10/05/2012 8:53 AM onver jessica Transaction, Provider Unknown - 10/05/2012 7:22 AM PST Progress Notes by Fozia Sandoval RN at 10/05/12721 Author: Fozia Sandoval RN Service: (none) Author Type: Registered Nurse Filed: 10/05/1259 Date of Service: 10/05/12721 Status: Signed Track Machine Operator Repairer: Fozia Sandoval RN (Registered Nurse) Troponin 2.00. [...] 10/05/12618 Date of Service: 10/05/12618 Status: Signed Track Machine Operator Repairer: Dung Chow RPH (Pharmacist) Clinical Pharmacy Note: Renal Monitoring Alondra Federico 42 y.o. female Ht Readings from Last 1 Encounters: 10/05/12 1.778 m (5' 10") Wt Readings from Last 1 Encounters: 10/05/12 120 kg (264 lb 8.8 oz) CREATININE Date Value Range Status 10/23/2011 0.8 0.6 - 1.2 mg/dL Final Testing performed at [facility];[address] [place] [address];[place] [address] Creatinine clearance cannot be calculated - Pharmacy [...] 10/05/12511 Date of Service: 10/05/12507 Status: Signed Track Machine Operator Repairer: Cathy Meng RN (Registered Nurse) Pt's SBP [...] [address] | | | | | | [facility] | | | | | | F [place], [place] | | | | | | [...] [address] | | | | | | [place] [address] | | | | | | [phone] | | | | | | | | +--------+ + + + + | 11/25/ | Office | Nephrology | Kei Arthur MD | | | 2019 | Visit | | [address] [facility] | | | | | | [address] [place] | | | | | | [address] | | | | | | | [...] right radial artery was cannulized with a 6-Palauan Terumo sheath. | | | Then 2.5 mg verapamil, 200 mcg nitroglycerin, and 5000 international | | | units heparin were given through the sheath. Over a 260 exchange | | | wire, the 5-Palauan Blake catheter was advanced to the ascending [...] wire, the Blake was exchanged for a 5-Palauan angled pigtail | | | catheter advanced [...] the pigtail catheter was exchanged for a 6-Palauan XB 3.5 guide. A 300 | | [...] | The right PDA fills faintly by edwp-ij-yjseo collateral. The right AV | | | [...] artery was cannulized | | with a 6-Palauan Terumo sheath. Then 2.5 mg verapamil, 200 mcg | | nitroglycerin, and 5000 international units heparin were given through the | | sheath. Over a 260 exchange wire, the 5-Palauan Blake catheter was advanced | | to [...] | | Blake was exchanged for a 5-Palauan angled pigtail catheter advanced to the | [...] catheter was exchanged for | | a 6-Palauan XB 3.5 guide. A 300 cm 1001 Menus Flex wire with the support of a [...] | wire were unsuccessful and so the interspireSubmitwater wire was removed as well as the [...] 7. The right PDA fills faintly by abkn-jp-stwag collateral. The right AV | | groove [...] condition. | | | | Read by KIE CHARLES MD 10/05/2012 11:49 A | | [...] right radial artery was cannulized with a 6-Palauan Terumo sheath. | | | Then 2.5 mg verapamil, 200 mcg nitroglycerin, and 5000 international | | | units heparin were given through the sheath. Over a 260 exchange | | | wire, the 5-Palauan Blake catheter was advanced to the ascending [...] wire, the Blake was exchanged for a 5-Palauan angled pigtail | | | catheter advanced [...] the pigtail catheter was exchanged for a 6-Palauan XB 3.5 guide. A 300 | | [...] | The right PDA fills faintly by auey-cj-jxigp collateral. The right AV | | | [...] artery was cannulized | | with a 6-Palauan Terumo sheath. Then 2.5 mg verapamil, 200 mcg | | nitroglycerin, and 5000 international units heparin were given through the | | sheath. Over a 260 exchange wire, the 5-Palauan Blake catheter was advanced | | to [...] | | Blake was exchanged for a 5-Palauan angled pigtail catheter advanced to the | [...] catheter was exchanged for | | a 6-Palauan XB 3.5 guide. A 300 cm Prowater [...] 7. The right PDA fills faintly by sagq-qq-njevo collateral. The right AV | | groove [...]
--- OUTSIDE RECORDS SUMMARY | ~2019-10-02 | XMS | Encounter Summary ---
Demographics + + + | Address | [address] | | | [place] [address] | + + + | Home Phone [...] Organization | [facility] | | | and [place] | + + + | Address | Unknown | + + + | Phone | Unavailable | + + + Support + + + + + | Name | Relationship | Address | Phone | + + + + + | Kyaw Woodson | ECON | [place], [place] | | + + + + + | Barbara Cabrera | ECON | Unknown | | + + + + + | Dimple Hathaway | ECON | Unknown | | + + + + + Care Team Providers + +------+ + | Care Automatic Presser Name | Role | Phone | + +------+ + | Daniel Land NP | PCP | | + +------+ + Encounter Details +--------+ + + + + | Date | Type | Department | Care Team | Description | +--------+ + + + + | 11/17/ | Orders Only | [facility] | Conversion | | | 2017 | | NEPHROLOGY [place] | Transaction, | | | | | [address] [facility] [address] | Provider Unknown | | | | | [address] [place] | | | | | | [address] | (Fax) | | | | | [phone] | | | +--------+ + + + [...] [address] | | | | | | [facility] | | | | | | [place] | | | | | | [address] | | | | | | | [...] [address] | | | | | | [place] [address] | | | | | | [phone] | | | | | | | | +--------+ + + + + | 11/25/ | Office | Nephrology | Kei Arthur MD | | | 2019 | Visit | | [address] [facility] | | | | | | [address] [facility] | | | | | | [address] | | | | | | | | +--------+ + + + + documented as of this encounter Procedures + +--------+ + + + | Procedure Name | Priori | Date/Time | Associated Diagnosis | Comments | | | ty | | | | + +--------+ + + + | EXTERNAL LAB: ZULEIKA | Routin | 11/17/2016 | | Results for this | | | e | 10:05 AM | | procedure are in the | | | | PST | | results section. | + +--------+ + + + | IRON AND IRON | Routin | 11/17/2016 | | Results for this | | BINDING CAPACITY | e | 10:05 AM | | procedure are in the | | | | PST | | results section. | + +--------+ + + + | URINALYSIS, | Routin | 11/17/2016 | | Results for this | | MICROSCOPIC ONLY | e | 10:05 AM | | procedure are in the | | | | PST | | results section. | + +--------+ + + + | PROTEIN/CREATININE | Routin | 11/17/2016 | | Results for this | | RATIO, URINE | e | 10:05 AM | | procedure are in the | | | | PST | | results section. | + +--------+ + + + | URIC ACID | Routin | 11/17/2016 | | Results for this | | | e | 10:05 AM | | procedure are in the | | | | PST | | results section. | + +--------+ + + + | TRANSFERRIN | Routin | 11/17/2016 | | Results for this | | | e | 10:05 AM | | procedure are in the | | | | PST | | results section. | + +--------+ + + + | PARATHYROID HORMONE, | Routin | 11/17/2016 | | Results for this | | INTACT | e | 10:05 AM | | procedure are in the | | | | PST | | results section. | + +--------+ + + + | MAGNESIUM | Routin | 11/17/2016 | | Results for this | | | e | 10:05 AM | | procedure are in the | | | | PST | | results section. | + +--------+ + + + | FERRITIN | Routin | 11/17/2016 | | Results for this | | | e | 10:05 AM | | procedure are in the | | | | PST | | results section. | + +--------+ + + + | RENAL FUNCTION PANEL | Routin | 11/17/2016 | | Results for this | | | e | 10:05 AM | | procedure are in the | | | | PST | | results section. | + +--------+ + + + | COMPREHENSIVE | Routin | 11/17/2016 | | Results for this | | METABOLIC PANEL | e | 10:05 AM | | procedure are in the | | | | PST | | results section. | + +--------+ + + + documented in this encounter Results Iron and Iron Binding Capacity (11/17/2016 10:05 AM PST) + +-------+ + + + | Component | Value | Ref Range | Performed | Pathologist | | | | | At | Signature | + +-------+ + + + | Iron | 92.69 | 37 - 160 | EXTERNAL | | | | | | LAB | | + +-------+ + + + | Iron | 24.4 | 20 - 55 | EXTERNAL | | | Saturation | | | LAB | | + +-------+ + + + | TIBC | 380 | 245 - 400 | EXTERNAL | [...] + +---------+ + + Protein/Creatinine Ratio, Urine (11/17/2016 10:05 AM PST) + + + + + + | Component | Value | Ref Range | Performed | Pathologist | | | | | At | Signature | + + + + + + | Protein/Cre | 411.8 (A) | 0 - 150 | EXTERNAL [...] + +---------+ + + Urinalysis, Microscopic Only (11/17/2016 10:05 AM PST) + + + + + [...] - 1.030 | EXTERNAL | | | [facility] | | | LAB | | + [...] + + + | Blood, | Comment: 50 | | EXTERNAL | [...] + +---------+ + + External Lab: CBC (11/17/2016 10:05 AM PST) + + + + + + | Component | Value | Ref Range | Performed | Pathologist | | | | | At | Signature | + + + + + + | WBC | 10.4 | 4.5 - 11.0 10 | EXTERNAL | | | | | | LAB | | + + + + + + | RED CELL | 3.79 (A) | 3.8 - 5.1 10 | EXTERNAL | | | COUNT | | | LAB | | + + + + + + | Hgb | 11.1 (A) | 12.0 - 16.0 | EXTERNAL | | | | | g/dL | LAB | | + + + + + + | Hematocrit, | 33.8 (A) | 35 - 45 % | [...] + + + + | Platelet | 287 | 140 - 440 K/ L | [...] | + +---------+ + + Uric Acid (11/17/2016 10:05 AM PST) + +---------+ + + + | Component | Value | Ref Range | Performed | Pathologist | | | | | At | Signature | + +---------+ + + + | Uric Acid | 9.1 (A) | 2.3 - 6.6 | EXTERNAL [...] | | + +---------+ + + Transferrin (11/17/2016 10:05 AM PST) + +--------+ + + + | Component | Value | Ref Range | Performed | Pathologist | | | | | At | Signature | + +--------+ + + + | TRANSFERRIN | 271.58 | 192 - 382 | EXTERNAL | [...] + +---------+ + + Parathyroid Hormone, Intact (11/17/2016 10:05 AM PST) + + + + + + | Component | Value | Ref Range | Performed | Pathologist | | | | | At | Signature | + + + + + + | PTH INTACT | 211.6 (A) | 15 - 65 pg/mL | [...] | | + +---------+ + + Magnesium (11/17/2016 10:05 AM PST) + +-------+ + + + [...] | | + +---------+ + + Ferritin (11/17/2016 10:05 AM PST) + + + + + + | Component | Value | Ref Range | Performed | Pathologist | | | | | At | Signature | + + + + + + | Ferritin, | 810.3 (A) | 13 - 150 ng/mL | [...] + +---------+ + + Renal Function Panel (11/17/2016 10:05 AM PST) + + + + + + | Component | Value | Ref Range | Performed | Pathologist | | | | | At | Signature | + + + + + + | Glucose, | 161 (A) | 70 - 100 mg/dL | EXTERNAL | | | Fasting | | | LAB | | + + + + + + | BUN | 43 (A) | 6 - 23 mg/dL | EXTERNAL | | | | | | LAB | | + + + + + + | Creatinine | 2.45 (A) | 0.60 - 1.35 | EXTERNAL [...] + + + + | Na | 140 | 132 - 143 | EXTERNAL | [...] + + + | Anion Gap | 23.8 (A) | 7 - 21 mmol/L | EXTERNAL | | | | | | LAB | | + + + + + + | eGFR if not | | | EXTERNAL | | | | | | LAB | | | JORDANIAN | | | | | + + + + + + | Phosphorus, | 4.9 | 2.5 - 5.0 | EXTERNAL | | | Inorganic | | | LAB | | + + + + + + | BUN/Creatin | 17.6 | 6.0 - 28.6 | EXTERNAL | [...] + +---------+ + + Comprehensive Metabolic Panel (11/17/2016 10:05 AM PST) + + + + + + | Component | Value | Ref Range | Performed | Pathologist | | | | | At | Signature | + + + + + + | Glucose, | 159 (A) | 70 - 100 mg/dL | EXTERNAL | | | Fasting | | | LAB | | + + + + + + | BUN | 43 (A) | 6 - 23 mg/dL | EXTERNAL | | | | | | LAB | | + + + + + + | Creatinine | 2.51 (A) | 0.60 - 1.35 | EXTERNAL | | | | | mg/dL | LAB | | + + + + + + | BUN/Creatin | 17.1 | 6.0 - 28.6 | EXTERNAL | [...] + + + | A/G Ratio | 1.2 | 1.1 - 2.4 | EXTERNAL | | | | | | LAB | | + + + + + + | Bilirubin | 0.4 | 0.0 - 1.2 mg/dL | EXTERNAL | | | Total | | | LAB | | + + + + + + | ALP, | 84 | 31 - 130 | EXTERNAL | | | External | | | LAB | | + + + + + + | ALT | 24 | 7 - 52 U/L | EXTERNAL | | | | | | LAB | | + + + + + + | AST | 26 | 13 - 39 U/L | EXTERNAL [...] CO2 | 18 (A) | 19 - 31 mmol/L | EXTERNAL | | | | | | LAB | | + + + + + + | Anion Gap | 23.7 (A) | 7 - 21 mmol/L | [...]
--- OUTSIDE RECORDS SUMMARY | ~2019-10-02 | XMS | Encounter Summary ---
Demographics + + + | Address | [address] | | | [place] [address] | + + + | Home Phone | | + + + | Preferred Language | Unknown | + + + | Marital Status | Single | + + + | Anglican Affiliation | UNK | + + + | Race | White | + + + | Ethnic Group | Not or | + + + Author + + + | Author | [facility] | + + + | Organization | [facility] | + + + | Address | Unknown | + + + | Phone | Unavailable | + + + Support + + +---------+ + | Name | Relationship | Address | Phone | + + +---------+ + | Valentine Qiu | ECON | Unknown | | + + +---------+ + Care Team Providers + +------+ + | Care Roll Finisher Name | Role | Phone | + +------+ + | Ifeanyi Call MD | PCP | | + +------+ + Encounter Details +--------+ + + + + | Date | Type | Department | Care Team | Description | +--------+ + + + + | 03/25/ | Hospital | Registration [facility] | | | | 2016 | Encounter | [address] | | | | | | [place], | | | | | | [place] [address] | | | +--------+ + + + [...]
--- OUTSIDE RECORDS SUMMARY | ~2019-10-02 | XMS | Encounter Summary ---
Demographics + + + | Address | [address] | | | [place] [address] | + + + | Home Phone [...] | Organization | [facility] | | | and [place] | + + + | Address | Unknown | + + + | Phone | Unavailable | + + + Support + + + + + | Name | Relationship | Address | Phone | + + + + + | Kyaw Woodson | ECON | [place], [place] | | + + + + + | Barbara Cabrera | ECON | Unknown | | + + + + + | Dimple Hathaway | ECON | Unknown | | + + + + + Care Team Providers + +------+ + | Care Outside Energy Sales Representatives Name | Role | Phone | + +------+ + | No, Physician | PCP | Unavailable | + +------+ + Encounter Details +--------+ + + + + | Date | Type | Department | Care Team | Description | +--------+ + + + + | 06/26/ | Hospital | [facility] IP | Conversion | Unknown cause of | | 2015 | Encounter | CONVERSION [address] | Transaction, | injury, initial | | | | [address] | Provider Unknown | encounter | | | | [place], [place] | [phone] | | | | | [address] | | | | | | [phone] | | | +--------+ + + + [...] | | | | | | [facility] | | | | | | [place] | | | | | | [id number] | | | | | | | [...] [address] | | | | | | [place] [address] | | | | | | [phone] | | | | | | | | +--------+ + + + + | 11/25/ | Office | Nephrology | Kei Arthur MD | | | 2019 | Visit | | [address] [facility] | | | | | | [address] [place] | | | | | | [address] | | | | | | | | +--------+ + + + + documented as of this encounter Procedures + +--------+ + + + | Procedure Name | Priori | Date/Time | Associated Diagnosis | Comments | | | ty | | | | + +--------+ + + + | FL C ARM < 1 HOUR | Routin | 01/01/2016 | | Results for this | | | e | 1:13 PM | | procedure are in the | | | | PDT | | results section. | + +--------+ + + + documented in this encounter Results FL C-Arm < 1 Hour (01/01/2016 1:13 PM PDT) + + | Specimen | [...] | + + | Unknown cause of injury, initial encounter | + + documented in this encounter"
--- OUTSIDE RECORDS SUMMARY | ~2019-10-02 | XMS | Encounter Summary ---
Demographics + + + | Address | [address] | | | [place] [address] | + + + | Home Phone | | + + + | Preferred Language | Unknown | + + + | Marital Status | Single | + + + | Congregational Affiliation | 1041 | + + + | Race | Unknown | + + + | Ethnic Group | Unknown | + + + Author + + + | Author | [facility] | | | and [place] | + + + | Organization | [facility] | | | and [place] | + + + | Address | Unknown | + + + | Phone | Unavailable | + + + Support + + + + + | Name | Relationship | Address | Phone | + + + + + | Kyaw Woodson | ECON | [place], [place] | | + + + + + | Barbara Cabrera | ECON | Unknown | | + + + + + | Dimple Hathaway | ECON | Unknown | | + + + + + Care Team Providers + +------+ + | Care Light Adjuster Name | Role | Phone | + +------+ + | No, Physician | PCP | Unavailable | + +------+ + Encounter Details +--------+ + + + + | Date | Type | Department | Care Team | Description | +--------+ + + + + | 05/31/ | Orders Only | [facility] | Kei Arthur MD | | | 2018 | | NEPHROLOGY [place] | [address] | | | | | [address] | [address] [place], [place] | | | | | [address] [facility] [place] [place] | [address] | | | | | [address] | | | | | | [phone] | | | +--------+ + + + [...] [address] | | | | | | [address] | | | | | | | [...] | | | | | [place] [address] | | | | | | [phone] | | | | | | | | +--------+ + + + + | 11/25/ | Office | Nephrology | Kei Arthur MD | | | 2019 | Visit | | [address] [facility] | | | | | | [address] [place] | | | | | | [address] | | | | | | | [...] | | | LAB | | | TAJIK | | | | | + + [...]
--- OUTSIDE RECORDS SUMMARY | ~2019-10-02 | XMS | Encounter Summary ---
Demographics + + + | Address | [address] | | | [place] [address] | + + + | Home Phone | | + + + | Preferred Language | Unknown | + + + | Marital Status | Single | + + + | Jewish Affiliation | 1041 | + + + | Race | Unknown | + + + | Ethnic Group | Unknown | + + + Author + + + | Author | [facility] | | | and [place] | + + + | Organization | [facility] | | | and [place] | + + + | Address | Unknown | + + + | Phone | Unavailable | + + + Support + + + + + | Name | Relationship | Address | Phone | + + + + + | Kyaw Woodson | ECON | [place], [place] | | + + + + + | Barbara Cabrera | ECON | Unknown | | + + + + + | Dimple Hathaway | ECON | Unknown | | + + + + + Care Team Providers + +------+ + | Care Stringed Instrument Tuner Name | Role | Phone | + +------+ + PCP | Unavailable | + +------+ + Encounter Details +--------+ + + + + | Date | Type | Department | Care Team | Description | +--------+ + + + + | 11/27/ | Hospital | [facility] | [place], | | | 2000 | Encounter | [facility] | MD Renato Salas | | | | | [place] [address] | | | | [address] | [place], [place] | | | | | [place], [place] | [phone] | | | | | [address] | | | | | | [phone] | | | +--------+ + + + [...] | | | | | [address] [facility] [facility] | | | | | | [place] | | | | | | [address] | | | | | | | [...] | | | | | [place] [address] | | | | | | [phone] | | | | | | | | +--------+ + + + + | 11/25/ | Office | Nephrology | Kei Arthur MD | | | 2020 | Visit | | [address] [facility] | | | | | | [address] [place] | | | | | | [address] | | | | | | | | +--------+ + + + + documented as of this encounter Visit Diagnoses Not on filedocumented in this encounter"
--- OUTSIDE RECORDS SUMMARY | ~2019-10-02 | XMS | Encounter Summary ---
Demographics + + + | Address | [address] | | | [place] [address] | + + + | Home Phone | | + + + | Preferred Language | Unknown | + + + | Marital Status | Single | + + + | Christianity Affiliation | UNK | + + + | Race | White | + + + | Ethnic Group | Not or | + + + Author + + + | Author | [facility] | + + + | Organization | [facility] | + + + | Address | Unknown | + + + | Phone | Unavailable | + + + Support + + +---------+ + | Name | Relationship | Address | Phone | + + +---------+ + | Valentine Qiu | ECON | Unknown | | + + +---------+ + Care Team Providers + +------+ + | Care Cloth Worker Name | Role | Phone | + +------+ + | Ifeanyi Call MD | PCP | | + +------+ + Encounter Details +--------+ + + + + | Date | Type | Department | Care Team | Description | +--------+ + + + + | 12/24/ | Document-Sc | [facility] | Danielito Crockett MD,PhD | | | 2017 | anned | [facility] | [address] | | | | | at [place] [address] | Carrie Sanabria | | | | | [facility] | [place], [place] | | | | | Mailcode: [facility] | [address] | | | | | [place] [address] | [phone] | | | | | [phone] | | | +--------+ + + + [...]
--- OUTSIDE RECORDS SUMMARY | ~2019-10-02 | XMS | Encounter Summary ---
Demographics + + + | Address | [address] | | | [place] [address] | + + + | Home Phone [...] Organization | [facility] | | | and [place] | + + + | Address | Unknown | + + + | Phone | Unavailable | + + + Support + + + + + | Name | Relationship | Address | Phone | + + + + + | Kyaw Woodson | ECON | [place], [place] | | + + + + + | Barbara Cabrera | ECON | Unknown | | + + + + + | Dimple Hathaway | ECON | Unknown | | + + + + + Care Team Providers + +------+ + | Care Assistant Art Director Name | Role | Phone | + +------+ + | Daniel Land NP | PCP | | + +------+ + Encounter Details +--------+ + + + + | Date | Type | Department | Care Team | Description | +--------+ + + + + | 06/14/ | Orders Only | [facility] | Conversion | | | 2016 | | NEPHROLOGY [place] | Transaction, | | | | | [address] [facility] [address] | Provider Unknown | | | | | [address] [facility] [place] | | | | | | [address] | (Fax) | | | | | [phone] | | | +--------+ + + + [...] [address] | | | | | | [facility] | | | | | | [place] | | | | | | [address] | | | | | | | [...] [address] | | | | | | [place] [address] | | | | | | [phone] | | | | | | | | +--------+ + + + + | 11/25/ | Office | Nephrology | Kei Arthur MD | | | 2019 | Visit | | [address] [facility] | | | | | | [address] [facility] | | | | | | [address] | | | | | | | | +--------+ + + + + documented as of this encounter Procedures + +--------+ + + + | Procedure Name | Priori | Date/Time | Associated Diagnosis | Comments | | | ty | | | | + +--------+ + + + | EXTERNAL LAB: CBC | Routin | 06/14/2016 | | Results for this | | | e | 8:42 AM | | procedure are in the | | | | PDT | | results section. | + +--------+ + + + | RENAL FUNCTION PANEL | Routin | 06/14/2016 | | Results for this | | | e | 8:42 AM | | procedure are in the | | | | PDT | | results section. | + +--------+ + + + documented in this encounter Results External Lab: ZULEIKA (06/14/2016 8:42 AM PDT) + + + + + [...] + + + + | Hematocrit, | 27.4 (A) | 35 - 45 % | EXTERNAL | | | POC | | | LAB | | + + + + + + | MCV | 77.4 (A) | 81 - 99 fL | EXTERNAL | | | | | | LAB | | + + + + + + | MCH | 25 (A) | 27 - 33 pg | EXTERNAL | | | | | | LAB | | + + + + + + | MCHC | 32 | 30 - 36 g/dL | EXTERNAL | | | | | | LAB | | + + + + + + | Platelet | 221 | 140 - 440 K/ L | [...] + +---------+ + + Renal Function Panel (06/14/2016 8:42 AM PDT) + + + + + [...] + + + + | Creatinine | 3.35 (A) | 6.0 - 1.35 | EXTERNAL | | | [...] + + + | Anion Gap | 21.1 (A) | 7 - 21 mmol/L | EXTERNAL | | | | | | LAB | | + + + + + + | eGFR if not | | | EXTERNAL | | | | | | LAB | | | CYMRO | | | | | + + + + + + | Phosphorus, | 4.2 | 2.5 - 5.0 | EXTERNAL | | | Inorganic | | | LAB | | + + + + + + | BUN/Creatin | 14.3 | 6.0 - 28.6 | EXTERNAL | | | ine Ratio | | | LAB | | + + + + + + | Calcium | 9.4 | 8.4 - 10.2 | EXTERNAL | | | | | mg/dL | LAB | | + + + + + + | Estimated | 15 | mg/dL | EXTERNAL | | | [...]
--- OUTSIDE RECORDS SUMMARY | ~2019-10-02 | XMS | Encounter Summary ---
Demographics + + + | Address | [address] | | | [place] [address] | + + + | Home Phone [...] Team Providers + +------+ + | Care Building Illuminating Engineer Name | Role | Phone | + +------+ + | Jennyfer Gresham MD | PCP | | + +------+ + Reason for Visit + + + | Reason | Comments | + + + | Diabetic Retinopathy | | | Follow-up | | + + + Benefits Check (Routine) +--------+--------+ + + + + | Status | Reason | Specialty | Diagnoses / | Referred By | Referred To | | | | | Procedures | Contact | Contact | +--------+--------+ + + + + | Closed | | Ophthalmology | | Non-[facility] | Flaxel, | | | | | | Epic Dept | MD Jaelyn | | | | | | | [address] | | | | | | | [address] | | | | | | | [place], [place] | | | | | | | [address] | | | | | | | Phone: | | | | | | | [phone] | | | | | | | Fax: | | | | | | | [phone] | +--------+--------+ + + + + Encounter Details +--------+---------+ + + + | Date | Type | Department | Care Team | Description | +--------+---------+ + + + | 08/01/ | Office | [facility] | Jaelyn Watters, | Type 2 macular | | 2018 | Visit | [facility] | MD [address] | telangiectasis of | | | | Sushila Das [address] | both eyes; Choroidal | | | | [address] | [place], [place] | neovascularization, | | | | Mailcode: CEI | [address] | both eyes; Retinal | | | | [place] [address] | [phone] | edema of both eyes | | | | [phone] | | | +--------+---------+ + + + [...] Instructions Patient Instructions Jaelyn Watters MD - 08/01/2018 3:45 PM PSTCare instructions after eye injections: ? Do not rub or touch your eye ? An vpxi-mdl-aqbfrvl pain reliever (i.e. Tylenol) can be used [...] encounter Progress Notes Jaelyn Watters MD - 08/01/2018 3:45 PM PSTFormatting of this note might be different f rom the original. [facility] Progress Note 08/01/2018 48 y.o. 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 Chief Complaint: Diabetic Retinopathy Follow-up HPI (Edited by physician):Pt. Reports vision is about the same. Current Outpatient Prescriptions (Other) Medication Sig acetaminophen [...] multivitamin Take by mouth. 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 | + +--------+ + + + | AVASTIN INJ - OS - | Routin | 08/01/2018 | Type 2 macular | Results for this | | LEFT EYE | e | 3:56 PM | telangiectasis of | procedure are in the | | | | PST | both eyes | results section. | + +--------+ + + + | OCT, RETINA | Routin | 08/01/2018 | Type 2 macular | Results for this | | | e | 2:56 PM | telangiectasis of | procedure are in the | | | | PST | both eyes Choroidal | results section. | | | | | neovascularization, | | | | | | both eyes Retinal | | | | | | edema of both eyes | | + +--------+ + + + documented in this encounter Results AVASTIN INJECTION - OD - RIGHT EYE (08/01/2018 3:57 PM PST) + + + | Narrative [...] bevacizumab 1.25 mg/0.05 mL | | | [facility]: [id number] | | | Lot: [id number] | | | Expiration Date: 08/04/2018 | | | Route: intravitreal | | [...] | + + + AVASTIN INJECTION - OS - LEFT EYE (08/01/2018 3:56 PM PST) + + + | Narrative [...] bevacizumab 1.25 mg/0.05 mL | | | [facility]: [id number] | | | Lot: [id number] | | | Expiration Date: 08/04/2018 | | | Route: intravitreal | | [...] 0-10 scale. | | + + + OCT, RETINA (08/01/2018 2:56 PM PST) + + + | Narrative | Performed At | + + + | Rail [facility]er | [facility] | | DocumentationRight EyeQuality: [...] + | [facility] | [address] | [place] [address] | | | INSTITUTE | [place]. 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 | + + | Choroidal neovascularization, both [...] + | bevacizumab (AVASTIN) | Given | 08/01/20 | 1.25 mg | | Left Eye | | intravitreal injection 1.25 mg | | 18 3:56 | | | | | 1.25 mg, ONCE PRN (IPROC), 1 | | PM PST | | | | | dose, Starting e 08/01/18 at | | | | | | | 1556, Until Tue08/01/18 at 1556 | | | | | | + +--------+ +---------+------+ + +---+---+ | | | +---+---+ + +-------+ +---------+---+--------+ | bevacizumab (AVASTIN) | Given | 08/01/20 | 1.25 mg | | Right | | intravitreal injection 1.25 mg | | 18 3:56 | | | Eye | | 1.25 mg, ONCE PRN (IPROC), 1 | | PM PST | | | | | dose, Starting Tue08/01/18 at | | | | | | | 1556, Until Tue08/01/18 at 1556 | | | | | | + +-------+ +---------+---+--------+ +---+---+ | | | +---+---+ documented in this encounter"
--- OUTSIDE RECORDS SUMMARY | ~2019-10-02 | XMS | Encounter Summary ---
Demographics + + + | Address | [address] | | | [place] [address] | + + + | Home Phone [...] + + + | Author | [facility] | | | and [place] | + + + | Organization | [facility] | | | and [place] | + + + | Address | Unknown | + + + | Phone | Unavailable | + + + Support + + + + + | Name | Relationship | Address | Phone | + + + + + | Kyaw Woodson | ECON | [place], [place] | | + + + + + | Barbara Cabrera | ECON | Unknown | | + + + + + | Dimple Hathaway | ECON | Unknown | | + + + + + Care Team Providers + +------+ + | Care Cognos Lead Name | Role | Phone | + +------+ + | No, Physician | PCP | Unavailable | + +------+ + Encounter Details +--------+ + + + + | Date | Type | Department | Care Team | Description | +--------+ + + + + | 01/18/ | Orders Only | [facility] | Kei Arthur MD | | | 2018 | | NEPHROLOGY [place] | [address] [place] | | | | | [address] [place] | [address] [place], [place] | | | | | [address] [facility] [place] | [address] | | | | | [address] | | | | | | [phone] | | | +--------+ + + + [...] [address] | | | | | | [address] | | | | | | | [...] | | | | | [place] [address] | | | | | | [phone] | | | | | | | | +--------+ + + + + | 11/25/ | Office | Nephrology | Kei Arthur MD | | | 2019 | Visit | | [address] [facility] | | | | | | [address] [place] | | | | | | [address] | | | | | | | | +--------+ + + + + documented as of this encounter Procedures + +--------+ + + + | Procedure Name | Priori | Date/Time | Associated Diagnosis | Comments | | | ty | | | | + +--------+ + + + | EXTERNAL LAB: [facility] | Routin | 01/18/2018 | | Results for this | | | e | 7:17 AM | | procedure are in the | | | | PDT | | results section. | + +--------+ + + + | IRON AND IRON | Routin | 01/18/2018 | | Results for this | | BINDING CAPACITY | e | 7:17 AM | | procedure are in the | | | | PDT | | results section. | + +--------+ + + + | URINALYSIS WITH | Routin | 01/18/2018 | | Results for this | | MICROSCOPIC IF | e | 7:17 AM | | procedure are in the | | INDICATED | | PDT | | results section. | + +--------+ + + + | PARATHYROID HORMONE, | Routin | 01/18/2018 | | Results for this | | INTACT AND CALCIUM | e | 7:17 AM | | procedure are in the | | | | PDT | | results section. | + +--------+ + + + | PROTEIN/CREATININE | Routin | 01/18/2018 | | Results for this | | RATIO, URINE | e | 7:17 AM | | procedure are in the | | | | PDT | | results section. | + +--------+ + + + | URIC ACID | Routin | 01/18/2018 | | Results for this | | | e | 7:17 AM | | procedure are in the | | | | PDT | | results section. | + +--------+ + + + | MAGNESIUM | Routin | 01/18/2018 | | Results for this | | | e | 7:17 AM | | procedure are in the | | | | PDT | | results section. | + +--------+ + + + | FERRITIN | Routin | 01/18/2018 | | Results for this | | | e | 7:17 AM | | procedure are in the | | | | PDT | | results section. | + +--------+ + + + | RENAL FUNCTION PANEL | Routin | 01/18/2018 | | Results for this | | | e | 7:17 AM | | procedure are in the | | | | PDT | | results section. | + +--------+ + + + documented in this encounter Results Iron and Iron Binding Capacity (01/18/2018 7:17 AM PDT) + +---------+ + + + | Component | Value | Ref Range | Performed | Pathologist | | | | | At | Signature | + +---------+ + + + | Iron | 108.98 | 37 - 160 | EXTERNAL | | | | | | LAB | | + +---------+ + + + | Iron | 25.9 | 20 - 55 | EXTERNAL | | | Saturation | | | LAB | | + +---------+ + + + | TIBC | 421 (A) | 245 - 400 | EXTERNAL [...] + + Parathyroid Hormone, Intact and Calcium (01/18/2018 7:17 AM PDT) + + + + + + | Component | Value | Ref Range | Performed | Pathologist | | | | | At | Signature | + + + + + + | PTH Intact | 155.6 (A) | 15 - 65 | EXTERNAL | | | | | | LAB | | + + + + + + | Calcium | | [...] + +---------+ + + Protein/Creatinine Ratio, Urine (01/18/2018 7:17 AM PDT) + + + + + + | Component | Value | Ref Range | Performed | Pathologist | | | | | At | Signature | + + + + + + | Protein/Cre | 449.4 (A) | 0 - 150 | EXTERNAL [...] + + Urinalysis with Microscopic if Indicated (01/18/2018 7:17 AM PDT) + + + + + [...] + + + | pH, Urine | 6.0 | 5 - 9 | EXTERNAL | [...] + + + + | Glucose, | Trace | | EXTERNAL | | | Urine | | | LAB | | + + + + + + + + | Specimen | + + | Urine specimen | | (specimen) | + + + + + | Narrative | Performed At | + + + | WBC's: 15 Bacteria: 3+ | EXTERNAL LAB | + + + + +---------+ + + | Performing | Address | City/State/Zipcode | Phone Number | | Organization | | | | + +---------+ + + | EXTERNAL LAB | | | | + +---------+ + + External Lab: CBC (01/18/2018 7:17 AM PDT) + + + + + + | Component | Value | Ref Range | Performed | Pathologist | | | | | At | Signature | + + + + + + | WBC | 10.9 | 4.5 - 11.0 10 | EXTERNAL | | | | | | LAB | | + + + + + + | RED CELL | 3.36 (A) | 3.8 - 5.1 10 | EXTERNAL | | | COUNT | | | LAB | | + + + + + + | Hgb | 10.4 (A) | 12 - 16 g/dL | EXTERNAL | | | | | | LAB | | + + + + + + | Hematocrit, | 32.1 (A) | 35 - 45 % | EXTERNAL | | | POC | | | LAB | | + + + + + + | MCV | 95.4 | 81 - 99 fL | EXTERNAL [...] + + + + | RDW-CV | 15.3 (A) | 10.5 - 15.0 % | [...] | + +---------+ + + Uric Acid (01/18/2018 7:17 AM PDT) + +---------+ + + + | Component | Value | Ref Range | Performed | Pathologist | | | | | At | Signature | + +---------+ + + + | Uric Acid | 8.1 (A) | 2.3 - 6.6 | EXTERNAL [...] | | + +---------+ + + Magnesium (01/18/2018 7:17 AM PDT) + +-------+ + + + [...] | | + +---------+ + + Ferritin (01/18/2018 7:17 AM PDT) + + + + + + | Component | Value | Ref Range | Performed | Pathologist | | | | | At | Signature | + + + + + + | Ferritin, | 822.0 (A) | 13 - 150 ng/mL | [...] + +---------+ + + Renal Function Panel (01/18/2018 7:17 AM PDT) + + + + + + | Component | Value | Ref Range | Performed | Pathologist | | | | | At | Signature | + + + + + + | Glucose, | 93 | 70 - 100 mg/dL | EXTERNAL | | | Fasting | | | LAB | | + + + + + + | BUN | 49 (A) | 6 - 23 mg/dL | EXTERNAL | | | | | | LAB | | + + + + + + | Creatinine | 3.19 (A) | 0.6 - 1.35 | EXTERNAL [...] + + + | Anion Gap | 20.2 | 7 - 21 mmol/L | EXTERNAL | | | | | | LAB | | + + + + + + | eGFR if not | | | EXTERNAL | | | | | | LAB | | | SUDANESE | | | | | + + + + + + | Phosphorus, | 4.1 | 2.5 - 5.0 | EXTERNAL | | | Inorganic | | | LAB | | + + + + + + | BUN/Creatin | 15.4 | 6.0 - 28.6 | EXTERNAL | [...]
--- OUTSIDE RECORDS SUMMARY | ~2019-10-02 | XMS | Encounter Summary ---
Demographics + + + | Address | [address] | | | [place] [address] | + + + | Home Phone | | + + + | Preferred Language | Unknown | + + + | Marital Status | Single | + + + | Anabaptism Affiliation | 1041 | + + + | Race | Unknown | + + + | Ethnic Group | Unknown | + + + Author + + + | Author | [facility] | | | and [place] | + + + | Organization | [facility] | | | and [place] | + + + | Address | Unknown | + + + | Phone | Unavailable | + + + Support + + + + + | Name | Relationship | Address | Phone | + + + + + | Kyaw Woodson | ECON | [place], [place] | | + + + + + | Barbara Cabrera | ECON | Unknown | | + + + + + | Dimple Hathaway | ECON | Unknown | | + + + + + Care Team Providers + +------+ + | Care Customs House Broker Name | Role | Phone | + [...] Provider Unknown | | | | | [place], [place] | [phone] | | | | | [address] | | | | | | [phone] | | | +--------+ + + + [...] | | | | | [facility] | | | | | | [place] | | | | | | [phone] | | | | | | | [...] | | | | | [place] [address] | | | | | | [phone] | | | | | | | | +--------+ + + + + | 11/25/ | Office | Nephrology | Kei Arthur MD | | | 2019 | Visit | | [address] [facility] | | | | | | [address] [place] | | | | | | [phone] | | | | | | | | +--------+ + + + + documented as of this encounter Visit Diagnoses Not on filedocumented in this encounter"
--- OUTSIDE RECORDS SUMMARY | ~2019-10-02 | XMS | Encounter Summary ---
Demographics + + + | Address | [address] | | | [place] [address] | + + + | Home Phone [...] + + + | Author | [facility] | | | and [place] | + + + | Organization | [facility] | | | and [place] | + + + | Address | Unknown | + + + | Phone | Unavailable | + + + Support + + + + + | Name | Relationship | Address | Phone | + + + + + | Kyaw Woodson | ECON | [place], [place] | | + + + + + | Barbara Cabrera | ECON | Unknown | | + + + + + | Dimple Hathaway | ECON | Unknown | | + + + + + Care Team Providers + +------+ + | Care Kosher Butcher Name | Role | Phone | + [...] Unknown | encounter | | | | [place], [place] | [phone] | | | | | [address] | | | | | | [phone] | | | +--------+ + + + [...] | | | | | | [facility] | | | | | | [place] | | | | | | [address] | | | | | | | [...] [address] | | | | | | [place] [address] | | | | | | [phone] | | | | | | | | +--------+ + + + + | 11/25/ | Office | Nephrology | Kei Arthur MD | | | 2019 | Visit | | [address] [facility] | | | | | | [address] [place] | | | | | | [address] | | | | | | | [...]
--- OUTSIDE RECORDS SUMMARY | ~2019-10-02 | XMS | Encounter Summary ---
Demographics + + + | Address | [address] | | | [place] [address] | + + + | Home Phone | | + + + | Preferred Language | Unknown | + + + | Marital Status | Single | + + + | Buddhist Affiliation | 1041 | + + + | Race | Unknown | + + + | Ethnic Group | Unknown | + + + Author + + + | Author | [facility] | | | and [place] | + + + | Organization | and [facility] | | | and [place] | + + + | Address | Unknown | + + + | Phone | Unavailable | + + + Support + + + + + | Name | Relationship | Address | Phone | + + + + + | Kyaw Woodson | ECON | [place], [place] | | + + + + + | Barbara Cabrera | ECON | Unknown | | + + + + + | Dimple Hathaway | ECON | Unknown | | + + + + + Care Team Providers + +------+ + | Care Size Worker Name | Role | Phone | + +------+ + | Daniel Land NP | PCP | | + +------+ + Reason for Visit +---------+ + | Reason | Comments | +---------+ + | Results | 05/08/19 | +---------+ + Encounter Details +--------+ + + + + | Date | Type | Department | Care Team | Description | +--------+ + + + + | 05/09/ | Documentati | [facility] | Malvin, | Results (05/08/19) | | 2019 | on | NEPHROLOGY [place] | Janes Acevedo | | | | | [address] | Psychiatric Specialist | | | | | [address] [facility] | | | | | | [address] | | | | | | [phone] | | | +--------+ + + + [...] [address] | | | | | | [facility] | | | | | | [place] | | | | | | [address] | | | | | | | [...] [address] | | | | | | [place] [address] | | | | | | [phone] | | | | | | | | +--------+ + + + + | 11/25/ | Office | Nephrology | Kei Arthur MD | | | 2019 | Visit | | [address] [facility] | | | | | | [address] [place] | | | | | | [address] | | | | | | | | +--------+ + + + + documented as of this encounter Procedures + +--------+ + + + | Procedure Name | Priori | Date/Time | Associated Diagnosis | Comments | | | ty | | | | + +--------+ + + + | CBC W/AUTO | Routin | 05/08/2019 | | Results for this | | DIFFERENTIAL | e | 8:00 AM | | procedure are in the | | | | PDT | | results section. | + +--------+ + + + | PROTEIN/CREATININE | Routin | 05/08/2019 | | Results for this | | RATIO, URINE | e | 8:00 AM | | procedure are in the | | | | PDT | | results section. | + +--------+ + + + | URINALYSIS | Routin | 05/08/2019 | | Results for this | | | e | 8:00 AM | | procedure are in the | | | | PDT | | results section. | + +--------+ + + + | MAGNESIUM | Routin | 05/08/2019 | | Results for this | | | e | 8:00 AM | | procedure are in the | | | | PDT | | results section. | + +--------+ + + + | RENAL FUNCTION PANEL | Routin | 05/08/2019 | | Results for this | | | e | 8:00 AM | | procedure are in the | | | | PDT | | results section. | + +--------+ + + + documented in this encounter Results Protein/Creatinine Ratio, Urine (05/08/2019 8:00 AM PDT) + + + + + + | Component | Value | Ref Range | Performed | Pathologist | | | | | At | Signature | + + + + + + | Protein/Cre | 778.6 (A) | 0 - 150 | | | | at Ratio | | | | | + + + + + + + + | Specimen | + + | Urine | + + Renal Function Panel (05/08/2019 8:00 AM PDT) + + + + + + | Component | Value | Ref Range | Performed | Pathologist | | | | | At | Signature | + + + + + + | Na | 128 (A) | 132 - 143 | | | | | | mmol/L | | | + + + + + + | K | 4.2 | 3.6 - 5.1 | | | | | | mmol/L | | | + + + + + + | Cl | 92 (A) | 95 - 112 mmol/L | | | + + + + + + | CO2 | 27 (A) | 19 - 21 mmol/L | | | + + + + + + | Anion Gap | 14 | 7 - 21 mmol/L | | | + + + + + + | Glucose | 95 | 70 - 100 mg/dL | | | + + + + + + | BUN | 18 | 6 - 29 mg/dL | | | + + + + + + | CREA | 1.37 (A) | 0.60 - 1.35 | | | | | | mg/dL | | | + + + + + + | GFR | 41 (A) | 60 - 140 | | | | ESTIMATE | | | | | | (REF) | | | | | + + + + + + | BUN/Creatin | 182.0 (A) | 6.0 - 28.5 | | | | ine Ratio | | | | | + + + + + + | Albumin | 2.4 (A) | 3.5 - 5.0 g/dL | | | + + + + + + | Calcium | 8.4 (A) | 8.5 - 10.3 | | | + + + + + + | PHOSPHORUS | 4.7 | 2.5 - 5.0 | | | + + + + + + + + | Specimen | + + | Blood | + + Magnesium (05/08/2019 8:00 AM PDT) + +-------+ + + + | Component | Value | Ref Range | Performed | Pathologist | | | | | At | Signature | + +-------+ + + + | MG | 1.8 | 1.7 - 2.5 | | | + +-------+ + + + + + | Specimen | + + | Blood | + + CBC w/ Auto Differential (05/08/2019 8:00 AM PDT) + + + + + + | Component | Value | Ref Range | Performed | Pathologist | | | | | At | Signature | + + + + + + | CBC | 7.8 | 4.5 - 11.5 | | | + + + + + + | RBC COUNT | 3 (A) | 4 - 5 | | | + + + + + + | Hemoglobin | 7.9 (A) | 12.0 - 16.0 | | | + + + + + + | Hematocrit, | 24.0 (A) | 35 - 45 | | | | BF | | | | | + + + + + + | MCV | 90.5 | 81 - 99 | | | + + + + + + | RDW | 21.7 (A) | 10.5 - 15.0 | | | + + + + + + | MCH | 29 | 27 - 33 | | | + + + + + + | MCHC, POC | 33 | 30 - 36 | | | + + + + + + | Platelet | 412 | 140 - 440 | | | | Count | | | | | | Plasma | | | | | + + + + + + | NEUTROPHILS | 56.7 | 39 - 80 % | | | | BL | | | | | + + + + + + | LYMPHOCYTES | 29.2 | 24 - 44 % | | | | BL | | | | | + + + + + + | MONOCYTES | 7.6 | 0 - 12 | | | | BAL | | | | | + + + + + + | EOSINOPHILS | 7.3 (A) | 0 - 6 % | | | | BL | | | | | + + + + + + | BASOPHILS | 1.0 | 0 - 2 | | | | BAL | | | | | + + + + + + + + | Specimen | + + | Blood | + + Urinalysis (05/08/2019 8:00 AM PDT) + + + + + + | Component | Value | Ref Range | Performed | Pathologist | | | | | At | Signature | + + + + + + | Color | Yellow | | | | + + + + + + | Clarity | Clear | | | | + + + + + + | Specific | 1.004 (A) | 1.005 - 1.030 | | | | [place] QC | | | | | + + + + + + | pH, Urine | 8.0 | 5.0 - 9.0 | | | + + + + + + | Protein, | Negative | Negative | | | | Urine | | | | | + + + + + + | Glucose, | Negative | Negative | | | | Urine | | | | | + + + + + + | Ketones, | Negative | Negative | | | | Urine | | | | | + + + + + + | Bilirubin, | Negative | Negative | | | | Urine | | | | | + + + + + + | Nitrite, | Negative | Negative | | | | Urine | | | | | + + + + + + | Urobilinoge | Normal | < 0.2 mg/dL, | | | | n, Urine | | 1.0 mg/dL, 4.0 | | | | | | mg/dL, Normal, | | | | | | 1.0 E.U./dL, | | | | | | 0.2 E.U./dL, | | | | | | 0.2 mg/dL, | | | | | | Negative, 1 | | | | | | mg/dL, <2.0 | | | | | | mg/dL | | | + + + + + + | Leukocyte | Negative | Negative | | | | Esterase, | | | | | | Urine | | | | | + + + + + + | CASTS | Negative | | | | + + + + + + | WBC UA | 15 | /HPF | | | + + + + + + | RBC UA | 0 | /HPF | | | + + + + + + | EPITHELIAL | 0 | /LPF | | | | CASTS UA | | | | | + + + + + + | CRYSTAL UA | Negative | | | | + + + + + + | Bacteria, | Negative | | | | | UA | | | | | + + + + + + + + | Specimen | + + | Urine | + + documented in this encounter Visit Diagnoses Not on filedocumented in this encounter"
--- OUTSIDE RECORDS SUMMARY | ~2019-10-02 | XMS | Encounter Summary ---
Demographics + + + | Address | [address] | | | [place] [address] | + + + | Home Phone | | + + + | Preferred Language | Unknown | + + + | Marital Status | Single | + + + | Episcopal Affiliation | UNK | + + + [...] Team Providers + +------+ + | Care Appliance Painter And Refinisher Name | Role | Phone | + +------+ + | Jennyfer Gresham MD | PCP | | + +------+ + Reason for Visit + + + | Reason | Comments | + + + | Social work | Emotional Support/resource referral | | consultation | | + + + Encounter Details +--------+ + + + + | Date | Type | Department | Care Team | Description | +--------+ + + + + | 12/29/ | Telephone | [facility] | Edna Bledsoe LCSW | Social work | | 2018 | | [facility] [address] | [address] [facility] | consultation | | | | [place] Mailcode: | Augie Sandhu | (Emotional | | | | [facility] [place] | [place] | Support/resource | | | | [phone] | [phone] | referral) | +--------+ + + + + Social [...]
--- OUTSIDE RECORDS SUMMARY | ~2019-10-02 | XMS | Encounter Summary ---
Demographics + + + | Address | [address] | | | [place] [address] | + + + | Home Phone | | + + + | Preferred Language | Unknown | + + + | Marital Status | Single | + + + | Buddhism Affiliation | 1041 | + + + | Race | Unknown | + + + | Ethnic Group | Unknown | + + + Author + + + | Author | [facility] | | | and [place] | + + + | Organization | [facility] | | | and [place] | + + + | Address | Unknown | + + + | Phone | Unavailable | + + + Support + + + + + | Name | Relationship | Address | Phone | + + + + + | Kyaw Woodson | ECON | [place], [place] | | + + + + + | Barbara Cabrera | ECON | Unknown | | + + + + + | Dimple Hathaway | ECON | Unknown | | + + + + + Care Team Providers + +------+ + | Care Map Plotter Name | Role | Phone | + +------+ + | Dainel Land NP | PCP | | + +------+ + Encounter Details +--------+ + + + + | Date | Type | Department | Care Team | Description | +--------+ + + + + | 11/17/ | Orders Only | [facility] | Conversion | | | 2018 | | NEPRHOLOGY [place] | Transaction, | | | | | [address] | Provider Unknown | | | | | [address] [place] | [phone] | | | | | [address] | | | | | | [phone] | | | +--------+ + + + [...] [place] | | | | | | [address] | | | | | | | [...] | | | | | [place] [address] | | | | | | [phone] | | | | | | | | +--------+ + + + + | 11/25/ | Office | Nephrology | Kei Arthur MD | | | 2019 | Visit | | [address] [facility] | | | | | | [address] [place] | | | | | | [address] | | | | | | | [...]
--- OUTSIDE RECORDS SUMMARY | ~2019-10-02 | XMS | Encounter Summary ---
Demographics + + + | Address | [address] | | | [place] [address] | + + + | Home Phone | | + + + | Preferred Language | Unknown | + + + | Marital Status | Single | + + + | Tenriism Affiliation | 1041 | + + + | Race | Unknown | + + + | Ethnic Group | Unknown | + + + Author + + + | Author | [facility] | | | and [place] | + + + | Organization | [facility] | | | and [place] | + + + | Address | Unknown | + + + | Phone | Unavailable | + + + Support + + + + + | Name | Relationship | Address | Phone | + + + + + | Kyaw Woodson | ECON | [place], [place] | | + + + + + | Barbara Cabrera | ECON | Unknown | | + + + + + | Dimple Hathaway | ECON | Unknown | | + + + + + Care Team Providers + +------+ + | Care Signal Maintainer Helper Name | Role | Phone | + +------+ + | Daniel Land NP | PCP | | + +------+ + Encounter Details +--------+ + + + + | Date | Type | Department | Care Team | Description | +--------+ + + + + | 06/23/ | Orders Only | [facility] | Conversion | | | 2016 | | NEPRHOLOGY [place] | Transaction, | | | | | [address] | Provider Unknown | | | | | [address] [place] | [phone] | | | | | [address] | | | | | | [phone] | | | +--------+ + + + [...] | | | | | [address] [facility] | | | | | | [place] | | | | | | [address] | | | | | | | [...] | | | | | [place] [address] | | | | | | [phone] | | | | | | | | +--------+ + + + + | 11/25/ | Office | Nephrology | Kei Arthur MD | | | 2019 | Visit | | [address] [facility] | | | | | | [address] [place] | | | | | | [address] | | | | | | | | +--------+ + + + + documented as of this encounter Procedures + +--------+ + + + | Procedure Name | Priori | Date/Time | Associated Diagnosis | Comments | | | ty | | | | + +--------+ + + + | MAGNESIUM | Routin | 06/23/2016 | | Results for this | | | e | 12:00 AM | | procedure are in the | | | | PDT | | results section. | + +--------+ + + + | COMPREHENSIVE | Routin | 06/23/2016 | | Results for this | | METABOLIC PANEL | e | 12:00 AM | | procedure are in the | | | | PDT | | results section. | + +--------+ + + + documented in this encounter Results Magnesium (06/23/2016 12:00 AM PDT) + +-------+ + + + | Component | Value | Ref Range | Performed | Pathologist | | | | | At | Signature | + +-------+ + + + | Magnesium | 2.3 | 1.7 - 2.5 mg/dL | EXTERNAL [...] + +---------+ + + Comprehensive Metabolic Panel (06/23/2016 12:00 AM PDT) + + + + + + | Component | Value | Ref Range | Performed | Pathologist | | | | | At | Signature | + + + + + + | Glucose, | 83 | 70 - 100 mg/dL | EXTERNAL | | | Fasting | | | LAB | | + + + + + + | BUN | 42 (A) | 6 - 23 mg/dL | EXTERNAL | | | | | | LAB | | + + + + + + | Creatinine | 2.56 (A) | 0.60 - 1.35 | EXTERNAL | | | | | mg/dL | LAB | | + + + + + + | BUN/Creatin | 16.4 | 6.0 - 28.6 | EXTERNAL | [...] + + + + | Globulin | 2.9 | 1.8 - 3.5 | EXTERNAL | | | | | | LAB | | + + + + + + | A/G Ratio | 1.4 | 1.1 - 2.4 | EXTERNAL | | | | | | LAB | | + + + + + + | Bilirubin | 0.8 | 0.0 - 1.2 mg/dL | EXTERNAL | | | Total | | | LAB | | + + + + + + | ALP, | 63 | 30 - 128 | EXTERNAL | | | External | | | LAB | | + + + + + + | ALT | 15 | 7 - 52 U/L | EXTERNAL | | | | | | LAB | | + + + + + + | AST | 24 | 13 - 39 U/L | EXTERNAL | | | | | | LAB | | + + + + + + | Na | 137 | 132 - 143 | EXTERNAL | | | | | mmol/L | LAB | | + + + + + + | K | 5.0 | 3.6 - 5.1 | EXTERNAL | [...] + + + | Anion Gap | 21.0 | 7 - 21 mmol/L | EXTERNAL [...]
--- OUTSIDE RECORDS SUMMARY | ~2019-10-02 | XMS | Encounter Summary ---
Demographics + + + | Address | [address] | | | [place] [address] | + + + | Home Phone | | + + + | Preferred Language | Unknown | + + + | Marital Status | Single | + + + | Confucianism Affiliation | 1041 | + + + | Race | Unknown | + + + | Ethnic Group | Unknown | + + + Author + + + | Author | [facility] | | | and [place] | + + + | Organization | [facility] | | | and [place] | + + + | Address | Unknown | + + + | Phone | Unavailable | + + + Support + + + + + | Name | Relationship | Address | Phone | + + + + + | Kyaw Woodson | ECON | [place], [place] | | + + + + + | Barbara Cabrera | ECON | Unknown | | + + + + + | Dimple Hathaway | ECON | Unknown | | + + + + + Care Team Providers + +------+ + | Care Grip Assembler Name | Role | Phone | + +------+ + | Daniel Land NP | PCP | | + +------+ + Encounter Details +--------+ + + + + | Date | Type | Department | Care Team | Description | +--------+ + + + + | 08/17/ | Orders Only | [facility] | Conversion | | | 2017 | | NEPHROLOGY [place] | Transaction, | | | | | [address] [facility] [address] | Provider Unknown | | | | | [address] [place] | | | | | | [address] | (Fax) | | | | | [phone] | | | +--------+ + + + [...] [address] | | | | | | [facility] | | | | | | [place] | | | | | | [address] | | | | | | | [...] 206 | | | | | | [place] [address] | | | | | | [phone] | | | | | | | | +--------+ + + + + | 11/25/ | Office | Nephrology | Kei Arthur MD | | | 2019 | Visit | | [address] [facility] | | | | | | [address] [place] | | | | | | [address] | | | | | | | | +--------+ + + + + documented as of this encounter Procedures + +--------+ + + + | Procedure Name | Priori | Date/Time | Associated Diagnosis | Comments | | | ty | | | | + +--------+ + + + | IRON AND IRON | Routin | 08/17/2017 | | Results for this | | BINDING CAPACITY | e | 8:40 AM | | procedure are in the | | | | PST | | results section. | + +--------+ + + + | TRANSFERRIN | Routin | 08/17/2017 | | Results for this | | | e | 8:40 AM | | procedure are in the | | | | PST | | results section. | + +--------+ + + + documented in this encounter Results Iron and Iron Binding Capacity (08/17/2017 8:40 AM PST) + + + + + + | Component | Value | Ref Range | Performed | Pathologist | | | | | At | Signature | + + + + + + | Iron | 63.18 | 37 - 160 | EXTERNAL | | | | | | LAB | | + + + + + + | Iron | 15.7 (A) | 20 - 55 | EXTERNAL | | | Saturation | | | LAB | | + + + + + + | TIBC | 402 [...] | | + +---------+ + + Transferrin (08/17/2017 8:40 AM PST) + +--------+ + + + | Component | Value | Ref Range | Performed | Pathologist | | | | | At | Signature | + +--------+ + + + | TRANSFERRIN | 287.08 | 192 - 382 | EXTERNAL | [...]
--- OUTSIDE RECORDS SUMMARY | ~2019-10-02 | XMS | Encounter Summary ---
Demographics + + + | Address | [address] | | | [place] [address] | + + + | Home Phone [...] Organization | [facility] | | | and [place] | + + + | Address | Unknown | + + + | Phone | Unavailable | + + + Support + + + + + | Name | Relationship | Address | Phone | + + + + + | Kyaw Woodson | ECON | | | + + + + + | Barbara Cabrera | ECON | Unknown | | + + + + + | Dimple Hathaway | ECON | Unknown | | + + + + + Care Team Providers + +------+ + | Care Music Copyist Name | Role | Phone | + +------+ + PCP | Unavailable | + +------+ + Encounter Details +--------+ + + + + | Date | Type | Department | Care Team | Description | +--------+ + + + + | 05/14/ | Hospital | [facility] | Dung Khan MD | | | 1999 | Encounter | [facility]ILY [facility]Y | [address] | | | | | CENTER [address] [place], [place] | | | | | [address] | [id number] | | | | | [place], [place] | | | | | | [address] | | | | | | [phone] | | | +--------+ + + + [...] [address] | | | | | | [facility] | | | | | | [place] | | | | | | [id number] | | | | | | | [...] | | | | | [place] [address] | | | | | | [phone] | | | | | | | | +--------+ + + + + | 11/25/ | Office | Nephrology | Kei Arthur MD | | | 2020 | Visit | | [address] [facility] | | | | | | [address] [place] | | | | | | [address] | | | | | | | | +--------+ + + + + documented as of this encounter Visit Diagnoses Not on filedocumented in this encounter"
--- OUTSIDE RECORDS SUMMARY | ~2019-10-02 | XMS | Encounter Summary ---
Demographics + + + | Address | [address] | | | [place] [address] | + + + | Home Phone | | + + + | Preferred Language | Unknown | + + + | Marital Status | Single | + + + | Taoism Affiliation | 1041 | + + + | Race | Unknown | + + + | Ethnic Group | Unknown | + + + Author + + + | Author | [facility] | | | and [place] | + + + | Organization | [facility] | | | and [place] | + + + | Address | Unknown | + + + | Phone | Unavailable | + + + Support + + + + + | Name | Relationship | Address | Phone | + + + + + | Kyaw Woodson | ECON | [place], [place] | | + + + + + | Barbara Cabrera | ECON | Unknown | | + + + + + | Dimple Hathaway | ECON | Unknown | | + + + + + Care Team Providers + +------+ + | Care Other Sales Support Worker Name | Role | Phone | + +------+ + | Daniel Land NP | PCP | | + +------+ + Encounter Details +--------+ + + + + | Date | Type | Department | Care Team | Description | +--------+ + + + + | 12/20/ | Orders Only | [facility] | Kei Arthur MD | | | 2016 | | [facility] | [address] [place] | | | | | [address] [place] | [address] [place], [place] | | | | | [address] [place], [place] | [id number] | | | | | [address] | | | | | | [phone] | | | +--------+ + + + [...] | | | | | | [facility] | | | | | | [place] | | | | | | [address] | | | | | | | [...] 206 | | | | | | [place] [address] | | | | | | [phone] | | | | | | | | +--------+ + + + + | 11/25/ | Office | Nephrology | Kei Arthur MD | | | 2019 | Visit | | [address] [facility] | | | | | | [address] [place] | | | | | | [address] | | | | | | | | +--------+ + + + + documented as of this encounter Procedures + +--------+ + + + | Procedure Name | Priori | Date/Time | Associated Diagnosis | Comments | | | ty | | | | + +--------+ + + + | EXTERNAL LAB: [facility] | Routin | 12/20/2016 | | Results for this | | | e | 7:52 AM | | procedure are in the | | | | PDT | | results section. | + +--------+ + + + | RENAL FUNCTION PANEL | Routin | 12/20/2016 | | Results for this | | | e | 7:52 AM | | procedure are in the | | | | PDT | | results section. | + +--------+ + + + documented in this encounter Results External Lab: [facility] (12/20/2016 7:52 AM PDT) + + + + + [...] + + + | RED CELL | 3.65 (A) | 3.8 - 5.1 10 | EXTERNAL | | | COUNT | | | LAB | | + + + + + + | Hgb | 10.9 (A) | 12.0 - 16.0 | EXTERNAL | | | | | g/dL | LAB | | + + + + + + | Hematocrit, | 33.2 (A) | 35 - 45 % | EXTERNAL | | | POC | | | LAB | | + + + + + + | MCV | 89.3 | 81 - 99 fL | EXTERNAL [...] + + + + | Platelet | 343 | 140 - 440 K/ L | [...] + +---------+ + + Renal Function Panel (12/20/2016 7:52 AM PDT) + + + + + + | Component | Value | Ref Range | Performed | Pathologist | | | | | At | Signature | + + + + + + | Glucose, | 98 | 70 - 100 mg/dL | EXTERNAL | | | Fasting | | | LAB | | + + + + + + | BUN | 54 (A) | 6 - 23 mg/dL | EXTERNAL | | | | | | LAB | | + + + + + + | Creatinine | 2.46 (A) | 0.60 - 1.35 | EXTERNAL [...] + + + | Anion Gap | 21.2 (A) | 7 - 21 mmol/L | EXTERNAL | | | | | | LAB | | + + + + + + | eGFR if not | | | EXTERNAL | | | | | | LAB | | | QATARI | | | | | + + + + + + | Phosphorus, | 5.6 (A) | 2.5 - 5.0 | EXTERNAL | | | Inorganic | | | LAB | | + + + + + + | BUN/Creatin | 22.0 | 6.0 - 28.6 | EXTERNAL | [...]
--- OUTSIDE RECORDS SUMMARY | ~2019-10-02 | XMS | Encounter Summary ---
Demographics + + + | Address | [address] | | | [place] [address] | + + + | Home Phone [...] | Organization | [facility] | | | and [place] | + + + | Address | Unknown | + + + | Phone | Unavailable | + + + Support + + + + + | Name | Relationship | Address | Phone | + + + + + | Kyaw Woodson | ECON | [place], [place] | | + + + + + | Barbara Cabrera | ECON | Unknown | | + + + + + | Dimple Hathaway | ECON | Unknown | | + + + + + Care Team Providers + +------+ + | Care Car Pre Cooler Name | Role | Phone | + +------+ + PCP | Unavailable | + +------+ + Encounter Details +--------+ + + + + | Date | Type | Department | Care Team | Description | +--------+ + + + + | 11/17/ | Hospital | [facility] | Conversion | Pain | | 2014 | Encounter | CONVERSION DEP [address] | Transaction, | | | | | [place] | Provider Unknown | | | | | [place] | [phone] | | | | | [address] | | | | | | [phone] | | | +--------+ + + + [...] [place] | | | | | | [address] | | | | | | | [...] | | | | | [place] [address] | | | | | | [phone] | | | | | | | | +--------+ + + + + | 11/25/ | Office | Nephrology | Kei Arthur MD | | | 2019 | Visit | | [address] [facility] | | | | | | [address] [place] | | | | | | [address] | | | | | | | | +--------+ + + + + documented as of this encounter Procedures + +--------+ + + + | Procedure Name | Priori | Date/Time | Associated Diagnosis | Comments | | | ty | | | | + +--------+ + + + | XR CHEST 1 VIEW | Routin | 10/17/2011 | | Results for this | | | e | 12:53 AM | | procedure are in the | | | | PST | | results section. | + +--------+ + + + documented in this encounter Results XR Chest 1 Vw (10/17/2011 12:53 AM PST) + + | Specimen | + + | | + + + + + | Narrative | Performed At | + + + | This is a non-reportable procedure without a radiologist report and | | | is used for image storage only | | + + + + + | Procedure Note | + + | Florencio Marcelo Marnie - 05/04/2019 6:43 PM PDT This is a non-reportable procedure | | without a radiologist report and isused for image storage only | + + documented in this encounter Visit Diagnoses + + | Diagnosis | + + | Pain Generalized pain | + + documented in this encounter"
--- OUTSIDE RECORDS SUMMARY | ~2019-10-02 | XMS | Encounter Summary ---
Demographics + + + | Address | [address] | | | [place] [address] | + + + | Home Phone [...] + + | Author | [facility] | | | and [place] | + + + | Organization | [facility] | | | and [place] | + + + | Address | Unknown | + + + | Phone | Unavailable | + + + Support + + + + + | Name | Relationship | Address | Phone | + + + + + | Kyaw Woodson | ECON | [place], [place] | | + + + + + | Barbara Cabrera | ECON | Unknown | | + + + + + | Dimple Hathaway | ECON | Unknown | | + + + + + Care Team Providers + +------+ + | Care Meal Room Hand Name | Role | Phone | + [...] + + | 07/04/ | Telephone | [facility] | [place], | Other (UTI Concern) | | 2019 | | NEPHROLOGY [place] | [address]ina [facility] | | | | | [address] | Campaign Assistant | | | | | [address] [place] | | | | | | [address] | | | | | | [phone] | | | +--------+ + + + [...] [place] | | | | | | [address] | | | | | | | | +--------+ + + + + | 10/10/ | Procedure | Cardiology | | | | 2019 | visit | | | | +--------+ + + + + | 10/17/ | Office | Family Medicine | Jerry Yune, | | | 2019 | Visit | | MD [place] | | | | | | [address] | | | | | | [place] [address] | | | | | | [phone] | | | | | | | | +--------+ + + + + | 11/25/ | Office | Nephrology | Kei Arthur MD | | | 2019 | Visit | | [address] [place] | | | | | | [address] [place], [place] | | | | | | [address] | | | | | | | | +--------+ + + + + documented as of this encounter Visit Diagnoses Not on filedocumented in this encounter"
--- OUTSIDE RECORDS SUMMARY | ~2019-10-02 | XMS | Encounter Summary ---
Demographics + + + | Address | [address] | | | [place] [address] | + + + | Home Phone [...] + + + | Author | [facility] | | | and [place] | + + + | Organization | [facility] | | | and [place] | + + + | Address | Unknown | + + + | Phone | Unavailable | + + + Support + + + + + | Name | Relationship | Address | Phone | + + + + + | Kyaw Woodson | ECON | [place], [place] | | + + + + + | Barbara Cabrera | ECON | Unknown | | + + + + + | Dimple Hathaway | ECON | Unknown | | + + + + + Care Team Providers + +------+ + | Care Hospice Director Name | Role | Phone | + +------+ + | Daniel Land NP | PCP | | + +------+ + Encounter Details +--------+ + + + + | Date | Type | Department | Care Team | Description | +--------+ + + + + | 05/27/ | Orders Only | [facility] | Kei Fortune MD | | | 2014 | | CARDIOLOGY [place] | [address] | | | | | [address] | [place] [address] | | | | | [place], [place] | [phone] | | | | | [address] | | | | | | [phone] | | | +--------+ + + + [...] [address] | | | | | | [facility] | | | | | | [place] | | | | | | [address] | | | | | | | [...] [address] | | | | | | [place] [address] | | | | | | [phone] | | | | | | | | +--------+ + + + + | 11/25/ | Office | Nephrology | Kei Arthur MD | | | 2020 | Visit | | [address] [facility] [place] | | | | | | [address] [place] | | | | | | [address] | | | | | | | | +--------+ + + + + documented as of this encounter Procedures + +--------+ + + + | Procedure Name | Priori | Date/Time | Associated Diagnosis | Comments | | | ty | | | | + +--------+ + + + | BASIC METABOLIC | Routin | 05/27/2015 | | Results for this | | PANEL | e | 9:20 AM | | procedure are in the | | | | PDT | | results section. | + +--------+ + + + documented in this encounter Results Basic Metabolic Panel (05/27/2015 9:20 AM PDT) + + + + + + | Component | Value | Ref Range | Performed | Pathologist | | | | | At | Signature | + + + + + + | Glucose, | 131 (A) | 70 - 100 mg/dL | EXTERNAL | | | Fasting | | | LAB | | + + + + + + | BUN | 16 | 6 - 23 mg/dL | EXTERNAL | | | | | | LAB | | + + + + + + | Creatinine | 2.06 (A) | 0.60 - 1.35 | EXTERNAL | | | | | mg/dL | LAB | | + + + + + + | BUN/Creatin | 7.8 | 6.0 - 28.6 | EXTERNAL | [...] | Estimated | 26 (A) | 60 mg/dL | EXTERNAL | [...]
--- OUTSIDE RECORDS SUMMARY | ~2019-10-02 | XMS | Encounter Summary ---
Demographics + + + | Address | [address] | | | [place] [address] | + + + | Home Phone [...] | Organization | [facility] | | | and [place] | + + + | Address | Unknown | + + + | Phone | Unavailable | + + + Support + + + + + | Name | Relationship | Address | Phone | + + + + + | Kyaw Woodson | ECON | [place], [place] | | + + + + + | Barbara Cabrera | ECON | Unknown | | + + + + + | Dimple Hathaway | ECON | Unknown | | + + + + + Care Team Providers + +------+ + | Care Optical Goods Drill Operator Name | Role | Phone | + +------+ + PCP | Unavailable | + +------+ + Encounter Details +--------+ + + + + | Date | Type | Department | Care Team | Description | +--------+ + + + + | 12/02/ | Hospital | [facility] | Ryan Ivan, | | | 2000 | Encounter | [facility] | [address] | | | | | EMERGENCY CENTER | [place], [place] | | | | | [address] | [address] | | | | | [place], [place] | [phone] | | | | | [address] | | | | | | [phone] | | | +--------+ + + + [...] [address] | | | | | | [facility] | | | | | | [place] | | | | | | [id number] | | | | | | | [...] | | | | | [place] [address] | | | | | | [phone] | | | | | | | | +--------+ + + + + | 11/25/ | Office | Nephrology | Kei Arthur MD | | | 2020 | Visit | | [address] [facility] | | | | | | [address] [place] | | | | | | [address] | | | | | | | | +--------+ + + + + documented as of this encounter Visit Diagnoses Not on filedocumented in this encounter"
--- OUTSIDE RECORDS SUMMARY | ~2019-10-02 | XMS | Encounter Summary ---
Demographics + + + | Address | [address] | | | [place] [address] | + + + | Home Phone [...] Organization | [facility] | | | and [place] | + + + | Address | Unknown | + + + | Phone | Unavailable | + + + Support + + + + + | Name | Relationship | Address | Phone | + + + + + | Kyaw Woodson | ECON | [place], [place] | | + + + + + | Barbara Cabrera | ECON | Unknown | | + + + + + | Dimple Hathaway | ECON | Unknown | | + + + + + Care Team Providers + +------+ + | Care Site Foreman Name | Role | Phone | + +------+ + PCP | Unavailable | + +------+ + Encounter Details +--------+ + + + + | Date | Type | Department | Care Team | Description | +--------+ + + + + | 12/02/ | Hospital | [facility] | Ryan Ivan, | | | 2000 | Encounter | [facility] | [address] | | | | | EMERGENCY CENTER | [place], [place] | | | | | [address] | [address] | | | | | [place], [place] | [phone] | | | | | [address] | | | | | | [phone] | | | +--------+ + + + [...] [address] | | | | | | [facility] | | | | | | [place] | | | | | | [phone] | | | | | | | [...] | | | | | [place] [address] | | | | | | [phone] | | | | | | | | +--------+ + + + + | 11/25/ | Office | Nephrology | Kei Arthur MD | | | 2020 | Visit | | [address] [facility] | | | | | | [address] [place] | | | | | | [address] | | | | | | | | +--------+ + + + + documented as of this encounter Visit Diagnoses Not on filedocumented in this encounter"
--- OUTSIDE RECORDS SUMMARY | ~2019-10-02 | XMS | Encounter Summary ---
Demographics + + + | Address | [address] | | | [place] [address] | + + + | Home Phone | | + + + | Preferred Language | Unknown | + + + | Marital Status | Single | + + + | Caodaism Affiliation | [id number] | + + + | Race | Unknown | + + + | Ethnic Group | Unknown | + + + Author + + + | Author | [facility] | | | and [place] | + + + | Organization | [facility] | | | and [place] | + + + | Address | Unknown | + + + | Phone | Unavailable | + + + Support + + + + + | Name | Relationship | Address | Phone | + + + + + | Kyaw Woodson | ECON | [place], [place] | | + + + + + | Barbara Cabrera | ECON | Unknown | | + + + + + | Dimple Hathaway | ECON | Unknown | | + + + + + Care Team Providers + +------+ + | Care Occupational Health Professional Name | Role | Phone | + +------+ + | No, Physician | PCP | Unavailable | + +------+ + Encounter Details +--------+ + + + + | Date | Type | Department | Care Team | Description | +--------+ + + + + | 04/13/ | Hospital | [facility] | Altaf Ramires | Septic shock ([facility]); | | 2019 - | Encounter | [facility] | MD Padmini [address] | Moderate episode of | | | | [address] [place], [place] | recurrent major | | 04/26/ | | [address] | [address] | depressive disorder | | 2019 | | [place], [place] | | ([facility]); Type 2 | | | | [address] | | diabetes mellitus | | | | [phone] | | with diabetic | | | | | | nephropathy, with | | | | | | long-term current | | | | | | use of insulin ([facility]) | +--------+ + + + + [...] + + + | Blood Pressure | 102/49 | 04/26/2019 12:49 PM | | | | | PDT | | + + + + + | Pulse | 100 | 04/26/2019 12:49 PM | | | | | PDT | | + + + + + | Temperature | 37 C (98.6 F) | 04/26/2019 12:49 PM | | | | | PDT | | + + + + + | Respiratory Rate | 16 | 04/26/2019 12:49 PM | | | | | PDT | | + + + + + | Oxygen Saturation | - | - | | + + + + + | Inhaled Oxygen | - | - | | | Concentration | | | | + + + + + | Weight | 122.6 kg (270 lb 4.8 | 04/26/2019 12:49 PM | | | | oz) | PDT | | + + + + + | Height | 177.8 cm (5' 10") | 04/26/2019 12:49 PM | | | | | PDT | | + + + + + | Body Mass Index | 38.78 | 04/26/2019 12:49 PM | | | | | PDT | | + + + + + documented in this encounter Discharge Summaries Conversion Transaction, Provider Unknown - 04/26/2019 11:08 AM PDTFormatting of this note m ight be different from the original. Discharge Summaries by Pop Reyes MD at 04/26/19 1105 Author: Pop Reyes MD Service: Hospitalist Author Type: Physician Filed: 04/26/19 1721 Date of Service: 04/26/191107 Status: Signed Chief Pharmacist: Pop Reyes MD (Physician) [facility] Service: Hospitalist Physician Discharge Summary Patient ID: Alondra Caballero [id number] 49 y.o. 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 * Discharged Condition: fair HPI and Hospital Course: Per HPI: 49-year-old female with past medical history of methamphetamine abuse stopped 8 years ago, diabetes mellitus type 2 insulin-dependent, chronic kidney disease stage IV, coronary diseas e status post cardiac stent to left circumflex, chronic total occluded proximal LAD, CHF wit h ejection fraction 35 %, history of left BKA who was transferred from [facility] with worsening swelling of the right leg, pain, right foot ulcer with purulent discharge, necrotic tissue found to have a white count of 50,000, lactic acid of 1.9, creatinine of 3.7 8, potassium of 6.5, sodium of 122 when patient started on vancomycin as well as Zosyn short ly after arrival patient develop septic shock and was given 3 L of normal saline bolus and s tarted on levophed after which the patient was transferred to ICU for higher level of care. Dr. Cook from vascular surgery consulted patient underwent right above-knee amputation for g angrene of right lower extremity with sepsis. Patient blood culture grew group G strep to coccal and antibiotics narrowed down to Rocephin on 16 April IV through April 27. Patient h ad a echocardiogram which showed ejection fraction of 30 to 35% and pseudo-normal LV diastol ic filling pattern grade 2 dysfunction and no evidence of endocarditis. Patient had episode of chest pain on troponin was checked which was minimally elev ated with CPK around 3000 which went up to 4200 thought to be secondary to statin which was discontinuedand CPK subsequently downtrended. Patient underwent stress test which was nega tive for acute ischemia but did show evidence of prior infarcts, see below for problem based hospital course of main hospital issues. #Septic shock: #Acute post-operative pain following R AKA: Presented in septic shock secondary to RLEwet gangrene due tostreptococcal bacteremia, now s/pright Elvin Cook. s/p IV antibiotics as below to ensure no recurrence of infec tion. On discharge patient hemodynamically stable without ongoing signs of infection. -ID consulted and assisted in management -continue CTX through 8/9, PICC in place -continue gabapentin 200 mg qAM + 300 mg qhs -continue oxycodone prn #Chest pain: Isolated episode of chest pain on 04/21 which self resolved and did not recur. Serial troponi ns were negative. Underwent NM myocardial perfusion scan which showed large areas of infarct involving the apex, inferior wall, mid to distal anterior wall, and portions of the septum. No evidence of ischemia was seen on NM study. Patient had a high risk stratification. This was discussed with cardiology who recommended outpatient follow up based on lack of active i schemia on study. Patient was referred. -continue ASA, metoprolol -outpatient cardiology follow up #Rhabdomyolysis: Likely secondary to high dose atorvastatin,CPK up to 4200, statin dc'ed, CPK downtrended. -no longer trending CPK -statin dc'ed on discharge Discharge Exam: GEN: obese middle aged lady lying comfortable in bed in no apparent distress HEAD: normocephalic EYES: no conjunctival icterus or injection ENT: MMM, clear oropharynx NECK: supple, no cervical lymphadenpathy CV: RR at ~70 bpm, normal S1/S2, no murmurs RESP: CTAB without crackles or wheezes ABD: soft, NT/ND, BS+, no obvious masses/organomegaly SKIN/MSK: warm and dry, no rashes, chronic well healed AKA on LLE, RLE with surrounding KAITLIN bandages that are clean, dry, and intact PSYCH: mood is good, affect congruent NEURO: grossly non-focal Labs: Admission on 04/13/2019 No results displayed because visit has over 200 results. Imaging: Nm Myocardial Perfusion Spect (stress And Rest) Result Date: 04/25/2019 1. Large areas of infarct involving the apex, inferior wall, mid to distal anterior wall, a nd portions of the septum. 2. I see no evidence of ischemia. 3. Mild to moderate left ventri cular enlargement with ballooning of the apex, stable between rest and stress. 4. Akinesis o f the apex, with moderate hypokinesis involving the mid to distal anterior, septal, and infe rior castellanos. Mild hypokinesis of the balance of the left ventricle. 5. LVEF 25% rest, 31% st ress. High risk stratification. Signed by: Emy Rivers Shawn Sign Date/Time: 04/25/2019 11: 58 AM X-ray Chest 1 View Result Date: 04/21/2019 No acute cardiopulmonary disease. Lungs clear. Signed by: Emy Garcia, Luis E Sign Date/ Time: 04/21/2019 1:01 AM Disposition: To [facility] Patient Instructions: Ro Breen DNP [address] [place] [address] Follow up in 2 week(s) [facility] [address], [place] [address] [phone] Schedule an appointment as soon as possible for a visit in 1 week(s) JEN ThapaP [address] [place] [address] Go on 04/30/2019 8:00 AM Zuhair Covarrubias MD [address] [place] [address] Follow up in 1 week(s) Follow up of RI study Kristina Coto MD [facility] [address] [facility] [address] [place] [address] Follow up Endocrinology Daniel Bhakta [facility] [address] [facility] [place] [address] Medication List START taking these medications cefTRIAXone IVPB QTY: 18 Doses Refills: 0 Commonly known as: ROCEPHIN Inject 2,000 mg into the vein daily for 9 days. Dilute in appropriate volume of IV fluid an d give by slow IV infusion. * oxyCODONE 5 MG immediate release tablet QTY: 10 tablet Refills: 0 Commonly known as: ROXICODONE Take 0.5 tablets by mouth every 4 (four) hours as needed for Pain (4 to 5) for up to 5 days . * oxyCODONE 5 MG immediate release tablet QTY: 10 tablet Refills: 0 Commonly known as: ROXICODONE Take 1 tablet by mouth every 4 (four) hours as needed for Pain (6 to 7). * oxycodone 10 MG tablet QTY: 10 tablet Refills: 0 Take 1 tablet by mouth every 4 (four) hours as needed (8 to 10). * This list has 3 medication(s) that are the same as other medications prescribed for you. Read the directions carefully, and ask your doctor or other care provider to review them wit h you. CHANGE how you take these medications venlafaxine 150 MG 24 hr capsule Refills: 0 Commonly known as: EFFEXOR-XR What changed: Another medication with the same name was removed. Continue taking this medi cation, and follow the directions you see here. CONTINUE taking these medications acetaminophen 500 MG tablet Refills: 0 Commonly known as: TYLENOL albuterol 108 (90 Base) MCG/ACT inhaler QTY: 1 Inhaler Refills: 3 Commonly known as: PROAIR HFA Inhale 2 puffs into the lungs every 4 (four) hours as needed. allopurinol 300 MG tablet QTY: 30 tablet Refills: 11 For diagnoses: CKD (chronic kidney disease), stage IV, Essential hypertension, benign Commonly known as: ZYLOPRIM Take 1 tablet by mouth daily. ascorbic acid 1000 MG tablet Refills: 0 Commonly known as: VITAMIN C aspirin 81 MG chewable tablet Refills: 0 azithromycin 500 MG tablet QTY: 7 tablet Refills: 0 Commonly known as: ZITHROMAX Take 1 tablet by mouth daily. B complex vitamins tablet Refills: 0 dexlansoprazole 60 MG capsule Refills: 0 Commonly known as: DEXILANT fenofibrate 160 MG tablet QTY: 90 tablet Refills: 3 Take 1 tablet by mouth daily. ferrous sulfate (65 FE) 324 (65 Fe) MG EC tablet QTY: 60 tablet Refills: 2 Doctor's comments: Please consider 90 day supplies to promote better adherence TAKE ONE TABLET BY MOUTH TWICE DAILY WITH MEALS insulin regular human CONCENTRATED 500 UNIT/ML pen injection QTY: 28 mL Refills: 11 Commonly known as: HUMULIN R U-500 KWIKPEN Inject 0.32 mLs into the skin 3 (three) times daily with meals. metoprolol 100 MG 24 hr tablet QTY: 180 tablet Refills: 3 Commonly known as: TOPROL-XL Take 1 tablet by mouth 2 (two) times daily. multivitamin tablet Refills: 0 nitroGLYCERIN 0.4 MG SL tablet QTY: 25 tablet Refills: 51 Doctor's comments: Please consider 90 day supplies to promote better adherence Commonly known as: NITROSTAT DISSOLVE ONE TABLET UNDER THE TONGUE EVERY 5 MINUTES NEEDED FOR CHEST PAIN. DO NOT EXCE ED A TOTAL OF 3 DOSES IN 15 MINUTES potassium chloride 10 MEQ CR tablet Refills: 0 Commonly known as: K-TAB sodium bicarbonate 650 MG tablet QTY: 540 tablet Refills: 3 For diagnoses: CKD (chronic kidney disease), stage IV, Electrolyte imbalance risk TAKE 2 TABLETS BY MOUTH THREE TIMES DAILY torsemide 20 MG tablet QTY: 360 tablet Refills: 1 Commonly known as: DEMADEX TAKE 2 TABLETS BY MOUTH TWICE DAILY Vitamin D-3 5000 units Tabs Refills: 0 You might also be taking other medications not listed above. If you have questions about an y of your other medications, talk to the person who prescribed them or your Primary Care Pro vider. STOP taking these medications atorvastatin 80 MG tablet Commonly known as: LIPITOR DSS 100 MG Caps spironolactone 25 MG tablet Commonly known as: ALDACTONE Where to Get Your Medications You can get these medications from any pharmacy Bring a paper prescription for each of these medications cefTRIAXone IVPB oxycodone 10 MG tablet oxyCODONE 5 MG immediate release tablet oxyCODONE 5 MG immediate release tablet Discharge took greater than 30 minutes, to include final examination, discussion of admissi on, and preparation of prescriptions, instructions for on-going care, follow-up and document ation of discharge summary. Signed: Pop Reyes 04/26/2019 11:08 AM Georgie donovan in this encounter Medications at Time of [...] + + | albuterol (PROAIR | Inhale 2 puffs into | 1 | 3 | 10/18/19 | | | HFA) 90 mcg/puff | the lungs every 4 | Inhaler | | 19 | | | inhaler | (four) hours as | | | | | | | needed. | | | | | + + + +---------+ + + | allopurinol | Take 1 tablet by | 30 | 11 | 04/02/20 | | | (ZYLOPRIM) 300 mg | mouth daily. | tablet | | 19 | 0 | | tablet | | | | [...] + + + +---------+ + + | metoprolol | Take 1 tablet by | 180 | 3 | 11/08/19 | | | succinate | mouth 2 (two) times | tablet | | 19 | | | (TOPROL-XL) 100 mg | daily. | | | | | | ER tablet | | | | | | + + + +---------+ + + | Multiple Vitamin | Take 1 tablet by | | 0 | 05/19/20 | | | (MULTIVITAMIN) | mouth daily. | | | 15 | | | tablet | | | | | | + + + +---------+ + + | nitroglycerin | DISSOLVE ONE TABLET | 25 | 51 | 11/07/19 | | | (NITROSTAT) 0.4 mg | UNDER THE TONGUE | tablet | | 19 | | | SL tablet | EVERY 5 MINUTES | | | | | | | NEEDED FOR CHEST | | | | | | | PAIN. DO NOT EXCEED | | | | | | | A TOTAL OF 3 DOSES | | | | | | | IN 15 MINUTES | | | | | + + + +---------+ + + | oxyCODONE 10 MG | Take 10 mg by mouth. | | 0 | 04/26/20 | | | TABS | | | | 19 | | + + + +---------+ + + | potassium chloride | 10 mEq daily. | | 0 | 03/17/20 | | | (KLOR-CON) 10 mEq | | | | 18 | | | CR tablet | | | | | | + + + +---------+ + + | sodium bicarbonate | TAKE 2 TABLETS BY | 540 | 3 | 01/04/20 | | | 650 mg tablet | MOUTH THREE TIMES | tablet | | 19 | | | | DAILY | | | | | + + + +---------+ + + | torsemide | TAKE 2 TABLETS BY | 360 | 1 | 01/29/20 | | | (DEMADEX) 20 mg | MOUTH TWICE DAILY | tablet | | 19 | | | tablet | | | | | | + + + +---------+ + + | venlafaxine | | | 0 | 07/30/20 | | | (EFFEXOR XR) 150 mg | | | | 18 | | | 24 hr capsule | | | | | | + + + +---------+ + + | azithromycin | Take 1 tablet by | 7 | 0 | 10/18/19 | | | (ZITHROMAX) 500 MG | mouth daily. | tablet | | 19 | 9 | | tablet | | | | [...] + + +---------+ + + | fenofibrate 160 mg | Take 1 tablet by | 90 | 3 | 07/05/20 | | | tablet | mouth daily. | tablet | | 18 | 9 | + + + +---------+ + + | ferrous sulfate | TAKE ONE TABLET BY | 60 | 2 | 06/22/20 | | | 324 (65 Fe) MG EC | MOUTH TWICE DAILY | tablet | | 18 | 9 | | tablet | WITH MEALS | | | | | + + + +---------+ + + | insulin regular | Inject 0.32 mLs into | 28 mL | 11 | 03/20/20 | | | U-500 (HUMULIN R | the skin 3 (three) | | | 18 | 9 | | U-500 KWIKPEN) 500 | times daily with | | | | | | units/mL | meals. | | | | | | concentrated | | | | | | | injection (pen) | | | | | | + + + +---------+ + + documented as of this encounter Progress Notes Conversion Transaction, Provider Unknown - 04/26/2019 12:31 PM PDTFormatting of this note m ight be different from the original. Nurse Progress Note by Marlene Guillermo RN at 04/26/19 2259 Author: Marlene Guillermo RN Service: (none) Author Type: Registered Nurse Filed: 04/26/19 1233 Date of Service: 04/26/19 1231 Status: Signed Chief Pharmacist: Marlene Guillermo RN (Registered Nurse) RN report called to Shanta at [facility]. Marlene Guillermo RN onver jessica Transaction, Provider Unknown - 04/26/2019 10:51 AM PDT Nurse Progress Note by Shama Rawls RN at 04/26/19 105 Author: Shama Rawls RN Service: Wound/Ostomy Care Author Type: Registered Nurse Filed: 04/26/19 1053 Date of Service: 04/26/191050 Status: Signed Chief Pharmacist: Shama Rawls RN (Registered Nurse) [facility] Service: Wound Care Hospital Day: LOS: 13 days Post-Op Day: 12 Days Post-Op SUBJECTIVE Patient Summary: Wound care following up on ulceration to the right thumb. 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 Pt states "no one has put in on in days ". Wound has improved. Please continue with betadine swabs to ulceration as per previous ord er. Thank you for allowing me to participate in the care of this patient. Please call if there are any additional questions. Shama Rawls RN, CMSRN, [facility] Inpatient Wound Care 04/26/2019 10:53 AM [phone] onver jessica Transaction, Provider Unknown - 04/26/2019 10:07 AM PDT Case Management by Macario Florez RN at 04/26/19 1007 Author: Macario Florez RN Service: (none) Author Type: Registered Nurse Filed: 04/26/19 1116 Date of Service: 04/26/19 1007 Status: Addendum Chief Pharmacist: Macario Florez RN (Registered Nurse) Related Notes: Original Note by Macario Florez RN (Registered Nurse) filed at 04/26/19 11 15 10:08 AM Received call from [facility]. They are picking up Alondra at 1:00 PM. 11:15 AM Disposition: [facility] Transportation: Facility provided All orders, signed AVS, and prescriptions have been faxed to [facility] All DC paperwork completed Patient and family in agreement with discharge plan Medicare important message (Given or N/A): Mushtaq Florez onver jessica Transaction, Provider Unknown - 04/25/2019 3:50 PM PDT Case Management by Macario Florez RN at 04/25/19 1550 Author: Macario Florez RN Service: (none) Author Type: Registered Nurse Filed: 04/25/19 1559 Date of Service: 04/25/19 1550 Status: Signed Chief Pharmacist: Macario Florez RN (Registered Nurse) 3:50 PM Met with patient to discuss discharge. She is appealing her discharge, she does not feel i t is safe at this point. According to her Dr. Carranza told her she could leave on Tuesday, but Dr. Reyes is ready to discharge her to [facility]. Alondra was also concerned that her follow- up appts were not made for her and she would like a new PCP. A embedded case manager had explained t o her that the SNF facilities will make her appts because they need to coordinate transporta tion for her and all of the other patients that are staying at the SNF. She was not satisfi ed with that, so I made calls and set her up with another PCP in her primary office. I also called [facility] at her request, they do not take appts, but told me the facil carolyne can call ahead and bring her in. I let them know she needs a small business director and a neph rologist. Alondra seemed satisfied with this. Plan will be to discharge tomorrow to [facility]. onver jessica Transaction, Provider Unknown - 04/25/2019 3:24 PM PDT Progress Notes by Pop Reyes MD at 04/25/19 1524 Author: Pop Reyes MD Service: Hospitalist Author Type: Physician Filed: 04/25/19 1550 Date of Service: 04/25/19 1524 Status: Signed Chief Pharmacist: Pop Reyes MD (Physician) [facility] Service: Hospitalist Progress Note Pt: Alondra Caballero AGE/SEX: 49 y.o. female ROOM: [facility]/7113-1 : 1970 PCP: DANIEL BHAKTA ADMIT DATE: 04/13/2019 TODAY'S DATE: 04/25/2019 Hospital Day/Hospital Course: LOS: 12 days 49-year-old female with past medical history of methamphetamine abuse stopped 8 years ago, diabetes mellitus type 2 insulin-dependent, chronic kidney disease stage IV, coronary diseas e status post cardiac stent to left circumflex, chronic total occluded proximal LAD, CHF wit h ejection fraction 35 %, history of left BKA who was transferred from [facility] with worsening swelling of the right leg, pain, right foot ulcer with purulent discharge, necrotic tissue found to have a white count of 50,000, lactic acid of 1.9, creatinine of 3.7 8, potassium of 6.5, sodium of 122 when patient started on vancomycin as well as Zosyn short ly after arrival patient develop septic shock and was given 3 L of normal saline bolus and s tarted on levophed after which the patient was transferred to ICU for higher level of care. Dr. Cook from vascular surgery consulted patient underwent right above-knee amputation for g angrene of right lower extremity with sepsis. Patient blood culture grew group G strep to coccal and antibiotics narrowed down to Rocephin on 16 April IV through April 27. Patient h ad a echocardiogram which showed ejection fraction of 30 to 35% and pseudo-normal LV diastol ic filling pattern grade 2 dysfunction and no evidence of endocarditis. Patient had episode of chest pain on 04/21 and troponin was checked which was minimally eleva emanuel with CPK around 3000 which went up to 4200 thought to be secondary to statin which was d iscontinuedand CPK subsequently downtrended. Patient scheduled for stress test today which was postponed till tomorrow as she did not tolerate procedure well (due to anxiety). SUBJECTIVE: Awaiting results of stress test. Patient feels well. Denies chest pain, dyspnea. RLE pain i s improving. Remains on IV CTX following amputation. Denies any fevers, chills, night sweats . Scheduled Medications: acetaminophen 1,000 mg Oral TID allopurinol 300 mg Oral Daily aspirin 81 mg Oral Daily calcium carbonate 1,000 mg Oral BID cefTRIAXone 2 g Intravenous Q24H eumtcfknekbfujw-otwpwvkoorjwby-lyyeeooq 10 mL Swish & Spit 4x daily epoetin poppy 10,000 Units Subcutaneous Once per day on Tue fluconazole 200 mg Oral Daily gabapentin 300 mg Oral Nightly heparin 5,000 Units Subcutaneous 3 times per day insulin detemir 25 Units Subcutaneous BID insulin lispro (human) 0-10 Units Subcutaneous TID AC insulin lispro (human) 0-5 Units Subcutaneous Nightly insulin lispro (human) 12 Units Subcutaneous TID AC isosorbide mononitrate 30 mg Oral Daily metoprolol 50 mg Oral Daily nystatin Topical BID pantoprazole 40 mg Oral BID AC polyethylene glycol 17 g Oral Daily prazosin 1 mg Oral Nightly sodium bicarbonate 1,300 mg Oral TID sodium chloride 10 mL Intravenous 2 times per day torsemide 40 mg Oral Daily traZODone 100 mg Oral Nightly venlafaxine 225 mg Oral Daily with breakfast Continuous Infusions dextrose sodium chloride (IV) 75 mL/hr at 04/25/19 0345 PRN Medications albuterol, benzocaine-menthol, dextrose, dextrose, dextrose, docusate sodium OR docusat e, glucagon, glucagon, ondansetron OR ondansetron, oxyCODONE OR oxyCODONE OR oxy CODONE, petrolatum, phenol, sodium chloride Allergy: Allergies Allergen Reactions Sulfacetamide Hives Sulfamethoxazole-Trimethoprim Hives Demerol [Meperidine] Rash Patient has tolerated fentanyl in house Latex Other (See Comments) Hives Methadone Other (See Comments) Stomach pains,shaky Sulfa Antibiotics Rash Vicodin [Hydrocodone-Acetaminophen] Rash OBJECTIVE: Vitals: Patient Vitals for the past 24 hrs: BP Temp Temp src Pulse Resp SpO2 04/25/19 1143 101/53 98 F (36.7 C) Oral 102 18 97 % 04/25/19 0901 105/56 - - 99 - - 04/25/19 0731 149/69 98.2 F (36.8 C) Oral 101 18 96 % 04/25/19 0333 103/53 98 F (36.7 C) Oral 95 18 95 % 04/24/19 2324 125/57 98.2 F (36.8 C) Oral 91 18 97 % 04/24/19 2139 106/56 - - - - - 04/24/19 1918 93/48 97.9 F (36.6 C) Oral 91 18 98 % 04/24/19 1613 109/53 98.4 F (36.9 C) Oral 100 18 97 % 04/24/19 1530 - - - 102 - - I&O Detailed Table: Intake/Output Summary (Last 24 hours) at 04/25/19 1524 Last data filed at 04/25/19 1149 Gross per 24 hour Intake 3202 ml Output 7925 ml Net -4723 ml Patient Vitals for the past 96 hrs: Weight 04/23/19 1142 122.6 kg (270 lb 4.8 oz) Physical Examination: GEN: obese middle aged lady lying comfortable in bed in no apparent distress HEAD: normocephalic EYES: no conjunctival icterus or injection ENT: MMM, clear oropharynx NECK: supple, no cervical lymphadenpathy CV: RR at ~70 bpm, normal S1/S2, no murmurs RESP: CTAB without crackles or wheezes ABD: soft, NT/ND, BS+, no obvious masses/organomegaly SKIN/MSK: warm and dry, no rashes, chronic well healed AKA on LLE, RLE with surrounding KAITLIN bandages that are clean, dry, and intact PSYCH: mood is good, affect congruent NEURO: grossly non-focal LABS: Recent Labs Lab 04/25/19 0342 04/24/19 0559 04/23/19 0506 WBC 6.73 7.37 9.60 HGB 7.5* 7.6* 7.8* HCT 22.7* 23.2* 23.2* PLT 347 341 345 Recent Labs Lab 04/25/19 0342 04/24/19 0559 04/23/19 0506 NA 135 137 137 K 4.6 4.4 4.2 CL 103 108 106 CO2 25 25 25 BUN 38* 38* 45* CREATININE 1.3* 1.14* 1.24* Recent Labs Lab 04/24/19 0559 04/23/19 0506 04/22/19 0554 04/22/19 0030 04/21/19 1830 04/21/19 1242 04/21/19 0540 CKTOTAL 2,135* 3,534* 4,252* -- -- -- 3,048* TROPONINI -- -- -- 0.088* 0.086* 0.079* 0.091* CKMBINDEX -- -- -- -- -- -- 0.2 Diagnostic Imaging: Impressions only: Nm Myocardial Perfusion Spect (stress And Rest) Result Date: 04/25/2019 1. Large areas of infarct involving the apex, inferior wall, mid to distal anterior wall, a nd portions of the septum. 2. I see no evidence of ischemia. 3. Mild to moderate left ventri cular enlargement with ballooning of the apex, stable between rest and stress. 4. Akinesis o f the apex, with moderate hypokinesis involving the mid to distal anterior, septal, and infe rior castellanos. Mild hypokinesis of the balance of the left ventricle. 5. LVEF 25% rest, 31% st ress. High risk stratification. Signed by: Emy Rivers Shawn Sign Date/Time: 04/25/2019 11: 58 AM PROBLEM LIST Principal Problem: Gangrene of extremity (HCC) Active Problems: Morbid obesity (HCC) CHF (congestive heart failure) (HCC) CKD (chronic kidney disease), stage IV Metabolic acidosis ICD (implantable cardioverter-defibrillator), single, 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, with long-term current use of insulin (HCC) Ischemic cardiomyopathy Sepsis (HCC) Septic shock (HCC) Hyperkalemia Lactic acidosis Hyponatremia Group G streptococcal infection Skin ulcer of finger, limited to breakdown of skin (HCC) Hyperkalemia Chest pain Non-traumatic rhabdomyolysis Resolved Problems: * No resolved hospital problems. * ASSESSMENT & PLAN #Septic shock: #Acute post-operative pain following R AKA: Resolved. Was likely secondary to RLE wet gangrene due to streptococcal bacteremia, now s/p right AKA by Dr. Cook. Continuing IV antibiotics for now to ensure no recurrence of infectio n, at present patient hemodynamically stable without ongoing signs of infection. -ID following -continue CTX through 04/27, PICC in place -continue gabapentin 200 mg qAM + 300 mg qhs -continue oxycodone prn #Chest pain: Isolated episode of chest pain on 04/21 which self resolved and has not recurred. Serial trop onins were negative. Underwent NM myocardial perfusion scan which showed large areas of infa rct involving the apex, inferior wall, mid to distal anterior wall, and portions of the sept um. No evidence of ischemia was seen on NM study. Patient had a high risk stratification. Th is was discussed with cardiology who recommended outpatient follow up based on lack of activ e ischemia on study. Patient was referred. -continue ASA, metoprolol -outpatient cardiology follow up #Rhabdomyolysis: Likely secondary to high dose atorvastatin, CPK up to 4200, statin dc'ed, CPK downtrended. -no longer trending #HFrEF (30-35%): TTE 04/13/19, HF chronic and well compensated. -continue metoprolol and Torsemide -holding losartan due to hyperkalemia #Diabetes mellitus, insulin-dependent: BG reasonably controlled, Levemir 25u BID, lispro 12 u AC + SSI #Acute renal failure on chronic kidney disease stage IV: back to baseline, continue on epog en, periodic CBC #Obstipation: likely secondary to immobility and being on narcoticsresolved #Anemia: likely 2/2 chronic kidney disease + daily blood draws, iron panel, B12, and folate WNL, s/p 1 pRBCs #Leukocytosis: resolved, secondary to wet gangrene and streptococcal bacteremia #Hyperkalemia: likely secondary to losartan which was discontinued and potassium normalized #Insomnia: patient able to sleep better now,continuetrazodone 100 mg at night #Major depression and PTSD: psych consulted, recommended to increase Effexor to 225 mg monty y and prazosin added at night for PTSD Disposition:pending pain control, placement pending Code Status: Full Code Pop Reyes MD 04/25/2019 3:24 PM Portions of this chart may have been copied from previous notes for continuity of care purp ose onver jessica Transaction, Provider Unknown - 04/25/2019 3:20 PM PDT Therapy Progress Note by Kym Wilson PT at 04/25/19 1520 Author: Kym Wilson PT Service: (none) Author Type: Physical Therapist Filed: 04/25/19 1710 Date of Service: 04/25/19 1520 Status: Signed Chief Pharmacist: Kym Wilson PT (Physical Therapist) PHYSICAL THERAPY TREATMENT NOTE PT Received On: 04/25/19 Reason for Treatment: Amputation (acute R AKA; chronic L BKA; septic shock) Requires PT Follow Up: Yes PT Eval/Reassessment Date: 04/25/19 Recommendations: Acute OT, SNF Barriers to Discharge: Physical Deficits Impacting Functional [place], Self-care Defic its Impacting Functional [place], Lack of Family Support/Training, Home Design (see com ment) Recommendation Comments: Pt requires MAX A x 2 or mechanical lift for most aspects of mobil ity. Recommend subacute rehab in SNF setting and OT acutely to initiate ADL retraining. Pt reporting she has visitation from daughter from 9-11 AM tomorrow- therapist informed FLORENTIN Mix . Plan Treatment/Interventions: Continue per Primary PT POC Progress: Slow progress, decreased activity tolerance PT Frequency: 5-7x/wk, Once per day Care Duration (# of days): 7 # of days Summary Comments: Pt in chair upon arrival, very tearful and frustrated about her current situation . Pt perseverating about her concern for acquiring an electric w/c, stating she was unable t o propel manual w/c even prior to this hospitalization due to poor hand dexterity. Pt unwill ing to attempt manual w/c today for this reason. Therapist attempted to provide active liste katherine and acknowledge concerns, but also redirect and encourage participation in therapy tomarcella patel. Pt eager to wear L prosthetic leg for stability in sitting, but due to increased LLE carlita brian, pt unable to maryellen. Therapist removed screw from limb customs agent so pt could wear for compr ession and edema reduction. Therapist assisted in donning and pt continues to require educat ion on importance of maintaining L knee extension as to prevent contracture. Pt was assisted in scooting to edge of chair for trunk strengthening, but pt would frequently lean posterio rly against chair for rest/stability and required mod A otherwise to maintain midline. Abraham chua education on contracture prevention, positioning in bed, supine/sidelying exercises was p rovided. Pt left in recliner chair. Precautions LE Precaution(s): RLE, LLE Precautions/WB RLE: Non weight bearing (ampu shield) Precautions/WB LLE: Non weight bearing (hx BKA) Other Precautions: High fall risk, premedicate for pain Cognition Overall Cognitive Status: Within Functional Limits Orientation Level: Oriented Oriented: x 4 FUNCTIONAL MOBILITY Transfers Sit to/from Stand: Safety concerns, Unable to assess (Comment) BALANCE Static Sitting Balance Static Sitting-Balance Support: Right upper extremity support, Left upper extremity support , Feet unsupported (L residual limb unable to fit in prosthetic leg) Static Sitting-Level of Assistance: Moderate assist (retropulsive) Static Sitting-Comment/Duration: x 5 minutes at edge of chair THERAPEUTIC EXERCISE Seated-Exercise Type: ABduction, ADduction, Long arc quads, Knee flex, Seated marching (glu te squeezes) Seated-Exercise Comments: x 20 reps ea BLE (as appropriate) Activity Tolerance: Patient limited by fatigue Nurse Made Aware: MERVAT Wilson Safety Devices in Place: (call light in reach; needs met) The patient demonstrated no indication of pain during therapy session. Education Completed: Education Topics: [x] Rationale for PT [x] PT POC [x] DC planning [x] Precautions [x] Exercises [] Bed mobility [] Transfer training with hand placement [] Gait training [] Stair training [] Use of gait belt [] Other Completed with: [x] Patient [] Spouse [] Significant other [] Family [] C aregiver [] Other Completed by: [x] Verbal education [x] Demonstration [] Handout [] Other: Response to Education: [x] Stated Understanding [x] Reinforcement necessary [] Returned demonstration [] Demonstrated understanding [] No evidence of learning [] Refused PT Goals Goal Formulation: With patient Pt Will Go Supine To Sit: With moderate assist, Not met Pt Will Go Sit To Supine: With moderate assist, Not met Pt Will Transfer Bed/Chair: Dependently, Met, New / revised goal, With maximal assist Pt Will Propel Wheelchair: greater than 200 feet, Not met W/C Level of Assist: With standby assist, Not met Pt Will Achieve Sitting Balance: Moves / returns from midline greater than 2 inches in mult iple planes, Sits for greater than 5 minutes while performing UE tasks, Partly met Pt Will Sit Edge of Bed: 11-15 min, With standby assist, Not met Pt Will Perform Home Exer Program: With use of handout for guidance, Met Pt Will Tolerate Continuous Activity: Partly met, Not met Patient Education: Patient will be educated regarding precautions specific to diagnosis, Pa sjnt will demonstrate adherence to precautions with verbal instruction, Partly met Reflects last filed data of patient's status; may be from multiple contributors onver jessica Transaction, Provider Unknown - 04/25/2019 11:37 AM PDT Nurse Progress Note by Katie Long RN at 04/25/19 1137 Author: Katie Long RN Service: (none) Author Type: Registered Nurse Filed: 04/25/19 1138 Date of Service: 04/25/19 1137 Status: Signed Chief Pharmacist: Katie Long RN (Registered Nurse) Verified with regina CIFUENTES to remain in place for d/c. Katie Long RN onver jessica Transaction, Provider Unknown - 04/25/2019 9:52 AM PDT Progress Notes by Jorge Alfred at 04/25/19 0952 Author: Jorge Alfred Service: (none) Author Type: Financial Institution Vice President Filed: 04/25/19 0959 Date of Service: 04/25/1951 Status: Addendum Chief Pharmacist: Jorge Alfred (Financial Institution Vice President) Related Notes: Original Note by Jorge Alfred (Financial Institution Vice President) filed at 04/25/19 0958 Per LOS. Met with Pt who appears calm in bed, no family presence. Welcomed CP, Pt shared he r life review, she voiced that for three years she felt stuck in a wheel chair (lossing life meaning). She voiced finding strength and motivation in her daughter which both are leaning to adapt their "new normal" d/t to Pt's amputation. CP provided supportive presence withy c onversation med and meaning oriented presence. Thanks were expressed for CP support. onver jessica Transaction, Provider Unknown - 04/25/2019 9:41 AM PDT Case Management by Yuli Guerra RN at 04/25/19 0941 Author: Yuli Guerra RN Service: (none) Author Type: Registered Nurse Filed: 04/25/19 1525 Date of Service: 04/25/19 0941 Status: Addendum Chief Pharmacist: Yuli Guerra RN (Registered Nurse) Related Notes: Original Note by Yuli Guerra RN (Registered Nurse) filed at 04/25/[address] Reyes: pt should be able to discharge to [facility] today after stre ss test if negative. 0940: called Iftikhar to see if we are able to set up a later transport, and will cancel if str ess test is positive. She is going to check her schedule and will call me back. 1310: called Iftikhar to update her that pt is appealing her discharge and will most likely not hear back from appeal process until tomorrow. She is still holding on to referral. Dominguez Burrell spoke with pt earlier about appealing- he updated me. onver jessica Transaction, Provider Unknown - 04/24/2019 3:59 PM PDT Progress Notes by Pop Reyes MD at 04/24/19 3984 Author: Pop Reyes MD Service: Hospitalist Author Type: Physician Filed: 04/24/19 3268 Date of Service: 04/24/19 6095 Status: Signed Chief Pharmacist: Pop Reyes MD (Physician) [facility] Service: Hospitalist Progress Note Pt: Alondra Caballero AGE/SEX: 49 y.o. female ROOM: [address] [place] [address] : 1970 PCP: DANIEL BHAKTA ADMIT DATE: 04/13/2019 TODAY'S DATE: 04/24/2019 Hospital Day/Hospital Course: LOS: 11 days 49-year-old female with past medical history of methamphetamine abuse stopped 8 years ago, diabetes mellitus type 2 insulin-dependent, chronic kidney disease stage IV, coronary diseas e status post cardiac stent to left circumflex, chronic total occluded proximal LAD, CHF wit h ejection fraction 35 %, history of left BKA who was transferred from [facility] with worsening swelling of the right leg, pain, right foot ulcer with purulent discharge, necrotic tissue found to have a white count of 50,000, lactic acid of 1.9, creatinine of 3.7 8, potassium of 6.5, sodium of 122 when patient started on vancomycin as well as Zosyn short ly after arrival patient develop septic shock and was given 3 L of normal saline bolus and s tarted on levophed after which the patient was transferred to ICU for higher level of care. Dr. Cook from vascular surgery consulted patient underwent right above-knee amputation for g angrene of right lower extremity with sepsis. Patient blood culture grew group G strep to c occal and antibiotics narrowed down to Rocephin on 16 April IV through April 27. Patient had a echocardiogram which showed ejection fraction of 30 to 35% and pseudo-normal LV diastolic filling pattern grade 2 dysfunction and no evidence of endocarditis. Patient had episode of chest pain on 04/21 and troponin was checked which was minimally eleva emanuel with CPK around 3000 which went up to 4200 thought to be secondary to statin which was d iscontinued and CPK subsequently downtrended. Patient scheduled for stress test today which was postponed till tomorrow as she did not tolerate procedure well (due to anxiety). SUBJECTIVE: Stress test was scheduled for today however patient did not tolerate well due to anxiety. S he stated when she was alone in room she felt overwhelming sense of abandonment and was unab le to sit still for procedure. Stress test subsequently scheduled for tomorrow. She denies a ny current lightheadedness/dizziness. Also denies any chest pain, dyspnea, or nausea. Scheduled Medications: acetaminophen 1,000 mg Oral TID allopurinol 300 mg Oral Daily aspirin 81 mg Oral Daily calcium carbonate 1,000 mg Oral BID cefTRIAXone 2 g Intravenous Q24H zcthxmyoqmgskam-fsxdarwgkcpiqj-kmddlwun 10 mL Swish & Spit 4x daily epoetin poppy 10,000 Units Subcutaneous Once per day on Tue fluconazole 200 mg Oral Daily gabapentin 300 mg Oral Nightly heparin 5,000 Units Subcutaneous 3 times per day insulin detemir 25 Units Subcutaneous BID insulin lispro (human) 0-10 Units Subcutaneous TID AC insulin lispro (human) 0-5 Units Subcutaneous Nightly insulin lispro (human) 12 Units Subcutaneous TID AC isosorbide mononitrate 30 mg Oral Daily metoprolol 50 mg Oral Daily nystatin Topical BID pantoprazole 40 mg Oral BID AC polyethylene glycol 17 g Oral Daily prazosin 1 mg Oral Nightly sodium bicarbonate 1,300 mg Oral TID sodium chloride 10 mL Intravenous 2 times per day torsemide 40 mg Oral Daily traZODone 100 mg Oral Nightly venlafaxine 225 mg Oral Daily with breakfast Continuous Infusions dextrose sodium chloride (IV) 75 mL/hr at 04/24/19 1026 PRN Medications albuterol, benzocaine-menthol, dextrose, dextrose, dextrose, docusate sodium OR docusat e, glucagon, glucagon, ondansetron OR ondansetron, oxyCODONE OR oxyCODONE OR oxy CODONE, petrolatum, phenol, regadenoson, sodium chloride Allergy: Allergies Allergen Reactions Sulfacetamide Hives Sulfamethoxazole-Trimethoprim Hives Demerol [Meperidine] Rash Patient has tolerated fentanyl in house Latex Other (See Comments) Hives Methadone Other (See Comments) Stomach pains,shaky Sulfa Antibiotics Rash Vicodin [Hydrocodone-Acetaminophen] Rash OBJECTIVE: Vitals: Patient Vitals for the past 24 hrs: BP Temp Temp src Pulse Resp SpO2 04/24/19 1530 - - - 102 - - 04/24/19 1128 109/53 98.6 F (37 C) Oral 104 18 96 % 04/24/19 0744 140/64 98.9 F (37.2 C) Oral 111 18 94 % 04/24/19 0520 (!) 89/50 98.4 F (36.9 C) Oral 100 18 98 % 04/23/19 2300 - - - 99 - - 04/23/19 2257 131/61 98.5 F (36.9 C) Oral 100 18 97 % 04/23/19 1910 103/46 98.3 F (36.8 C) Oral 94 18 97 % I&O Detailed Table: Intake/Output Summary (Last 24 hours) at 04/24/19 1559 Last data filed at 04/24/19 1154 Gross per 24 hour Intake 2493.26 ml Output 8700 ml Net -6206.74 ml Patient Vitals for the past 96 hrs: Weight 04/23/19 1142 122.6 kg (270 lb 4.8 oz) Physical Examination: GEN: obese middle aged lady lying comfortable in bed in no apparent distress HEAD: normocephalic EYES: no conjunctival icterus or injection ENT: MMM, clear oropharynx NECK: supple, no cervical lymphadenpathy CV: RR at ~70 bpm, normal S1/S2, no murmurs RESP: CTAB without crackles or wheezes ABD: soft, NT/ND, BS+, no obvious masses/organomegaly SKIN/MSK: warm and dry, no rashes, chronic well healed AKA on LLE, RLE with surrounding KAITLIN bandages that are clean, dry, and intact PSYCH: mood is good, affect congruent NEURO: grossly non-focal LABS: Recent Labs Lab 04/24/19 0559 04/23/19 0506 04/22/19 0554 WBC 7.37 9.60 11.69* HGB 7.6* 7.8* 7.8* HCT 23.2* 23.2* 24.1* PLT 341 345 330 Recent Labs Lab 04/24/19 0559 04/23/19 0506 04/22/19 0554 NA 137 137 135 K 4.4 4.2 4.5 CL 108 106 103 CO2 25 25 25 BUN 38* 45* 51* CREATININE 1.14* 1.24* 1.38* Phosphorus: Lab Results Component Value Date PHOS 4.5 04/21/2019 Recent Labs Lab 04/21/19 0540 MG 1.6* Recent Labs Lab 04/17/19 1952 TSH 9.360* Recent Labs Lab 04/24/19 0559 04/23/19 0506 04/22/19 0554 04/22/19 0030 04/21/19 1830 04/21/19 1242 04/21/19 0540 CKTOTAL 2,135* 3,534* 4,252* -- -- -- 3,048* TROPONINI -- -- -- 0.088* 0.086* 0.079* 0.091* CKMBINDEX -- -- -- -- -- -- 0.2 Results Procedure Component Value Units Date/Time Fecal occult blood (in house) [[id number]] Collected: 04/22/19 1535 Specimen: Stool from Stool Updated: 04/22/19 1549 Fecal Occult Blood NEGATIVE Diagnostic Imaging: Impressions only: X-ray Chest 1 View Result Date: 04/21/2019 No acute cardiopulmonary disease. Lungs clear. Signed by: Emy Garcia Zachary Sign Date/ Time: 04/21/2019 1:01 AM Xr Chest 1 View Result Date: 04/18/2019 1. Resolution previous CHF and pulmonary edema perhaps with subtle residual effusions. Sign ed by: Emy Rivers Shawn Sign Date/Time: 04/18/2019 1:27 PM PROBLEM LIST Principal Problem: Septic shock (HCC) Active Problems: Morbid obesity (HCC) CHF (congestive heart failure) ([facility]) CKD (chronic kidney disease), stage IV Metabolic acidosis ICD (implantable cardioverter-defibrillator), single, 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, with long-term current use of insulin (HCC) Ischemic cardiomyopathy Sepsis (HCC) Gangrene of extremity (HCC) Hyperkalemia Lactic acidosis Hyponatremia Group G streptococcal infection Skin ulcer of finger, limited to breakdown of skin (HCC) Hyperkalemia Chest pain Non-traumatic rhabdomyolysis Resolved Problems: * No resolved hospital problems. * ASSESSMENT & PLAN #Septic shock: #Acute post-operative pain following R AKA: Resolved. Was likely secondary to RLE wet gangrene due to streptococcal bacteremia, now s/p right AKA by Dr. Cook. -ID following -continue CTX through 04/27, PICC in place -continue gabapentin 200 mg qAM + 300 mg qhs -continue oxycodone prn #Chest pain: Rule out underlying occlusive CAD. Troponin minimally elevated not consistent with ACS. -continue ASA, metoprolol -rescheduled for nuclear cardiac stress test tomorrow #Rhabdomyolysis: Likely secondary to high dose atorvastatin, CPK up to 4200, statin dc'ed, CPK downtrended. -CPK daily #HFrEF (30-35%): TTE 04/13/19, HF chronic and well compensated. -continue metoprolol and Torsemide -holding losartan due to hyperkalemia #Diabetes mellitus, insulin-dependent: BG reasonably controlled, Levemir 25u BID, lispro 12 u AC + SSI #Acute renal failure on chronic kidney disease stage IV: back to baseline, continue on epog en, periodic CBC #Obstipation: likely secondary to immobility and being on narcotics resolved #Anemia: likely 2/2 chronic kidney disease + daily blood draws, iron panel, B12, and folate WNL, s/p 1 pRBCs #Leukocytosis: resolved, secondary to wet gangrene and streptococcal bacteremia #Hyperkalemia: likely secondary to losartan which was discontinued and potassium normalized #Insomnia: patient able to sleep better now, continue trazodone 100 mg at night #Major depression and PTSD: psych consulted, recommended to increase Effexor to 225 mg monty y and prazosin added at night for PTSD Disposition: pending pain control, stress test (scheduled for tomorrow), completion of anti biotics Code Status: Full Code Pop Reyes MD 04/24/2019 3:59 PM Portions of this chart may have been copied from previous notes for continuity of care purp ose onver jessica Transaction, Provider Unknown - 04/24/2019 8:08 AM PDT Case Management by Yuli Guerra RN at 04/24/19807 Author: Yuli Guerra RN Service: (none) Author Type: Registered Nurse Filed: 04/24/19809 Date of Service: 08/06/19 0808 Status: Addendum Chief Pharmacist: Yuli Guerra RN (Registered Nurse) Related Notes: Original Note by Yuli Guerra RN (Registered Nurse) filed at 04/24/19 0809 0750: spoke with pt about where she would like to go when ready for discharge- she said she will go to [facility]. 0805: messaged Iftikhar at [facility] to give her an update. onver jessica Transaction, Provider Unknown - 04/24/2019 4:27 AM PDT Nurse Progress Note by Sandra Meek RN at 04/24/19426 Author: Sandra Meek RN Service: (none) Author Type: Registered Nurse Filed: 04/24/19 0433 Date of Service: 04/24/19426 Status: Addendum Chief Pharmacist: Sandra Meek RN (Registered Nurse) Related Notes: Original Note by Sandra Meek RN (Registered Nurse) filed at 8 A/Ox4. Afebrile. VSS. NPO since midnight for stress test this morning. PRN Roxycodone 5 mg given x 1. No acute events overnight. End of shift and 24 hour chart audit complete. Sandra Meek RN 4:28 AM ark Carranza MD - 04/23/2019 2:28 PM PDTFormatting of this note might be different from the or iginal. Progress Notes by Mark Carranza MD at 04/23/19 1428 Author: Mark Carranza MD Service: Hospitalist Author Type: Physician Filed: 04/23/19 9105 Date of Service: 04/23/191427 Status: Signed Chief Pharmacist: Mark Carranza MD (Physician) Hospitalist Progress Note Alondra Turciosorkle 49 y.o. [id number] female [facility] Day: LOS: 10 days Patient Summary: 49-year-old female with past medical history of methamphetamine abus e stopped 8 years ago, diabetes mellitus type 2 insulin-dependent, chronic kidney disease st age IV, coronary disease status post cardiac stent to left circumflex, chronic total occlude d proximal LAD, CHF with ejection fraction 35 %, history of left BKA who was transferred fro [facility] with worsening swelling of the right leg, pain, right foot ulcer wi th purulent discharge, necrotic tissue found to have a white count of 50,000, lactic acid of 1.9, creatinine of 3.78, potassium of 6.5, sodium of 122 when patient started on vancomycin as well as Zosyn shortly after arrival patient develop septic shock and was given 3 L of no rmal saline bolus and started on levophed after which the patient was transferred to ICU for higher level of care. Dr. Cook from vascular surgery consulted patient underwent right above-knee amputation for g angrene of right lower extremity with sepsis. Patient blood culture grew group G strep to c occal and antibiotics narrowed down to Rocephin on 16 April IV through April 27. Patient had a echocardiogram which showed ejection fraction of 30 to 35% and pseudo-normal LV diastolic filling pattern grade 2 dysfunction and no evidence of endocarditis. Patient had episode of chest pain on april and troponin was checked which was minima lly elevated with CPK around 3000 which went up to 4200 thought to be secondary to statin wh ich has discontinued now coming down. Patient scheduled for stress test today which was pos tponed till tomorrow as she had Imdur yesterday SUBJECTIVE and Events Overnight: Patient seen and examine. No acute over night event. Patient continued complaining of sore throat with difficulty swallowing. Patient had multiple BMs after she was given lactulose and Relistor. Patient is complaining of flatulence, no nausea no vomiting no chest pain no shortness of breath Scheduled Medications allopurinol 300 mg Oral Daily aspirin 81 mg Oral Daily calcium carbonate 1,000 mg Oral BID cefTRIAXone 2 g Intravenous Q24H wuyiaoiqucdnsps-alvrukunizslks-sictglgi 10 mL Swish & Spit 4x daily epoetin poppy 10,000 Units Subcutaneous Once per day on Tue fluconazole 200 mg Oral Daily gabapentin 300 mg Oral Nightly heparin 5,000 Units Subcutaneous 3 times per day insulin detemir 25 Units Subcutaneous BID insulin lispro (human) 0-10 Units Subcutaneous TID AC insulin lispro (human) 0-5 Units Subcutaneous Nightly insulin lispro (human) 12 Units Subcutaneous TID AC isosorbide mononitrate 30 mg Oral Daily lactulose 20 g Oral TID methylnaltrexone 12 mg Subcutaneous Daily metoprolol 50 mg Oral Daily nystatin Topical BID pantoprazole 40 mg Oral BID AC polyethylene glycol 17 g Oral Daily prazosin 1 mg Oral Nightly sodium bicarbonate 1,300 mg Oral TID sodium chloride 10 mL Intravenous 2 times per day [START ON 04/24/2019] torsemide 40 mg Oral Daily traZODone 100 mg Oral Nightly venlafaxine 225 mg Oral Daily with breakfast Continuous Infusions dextrose sodium chloride (IV) 75 mL/hr at 04/23/19 1111 PRN Medications acetaminophen OR acetaminophen, albuterol, benzocaine-menthol, dextrose, dextrose, dext sena, docusate sodium OR docusate, glucagon, glucagon, ondansetron OR ondansetron, o xyCODONE OR oxyCODONE OR oxyCODONE, petrolatum, phenol, sodium chloride Allergy: Allergies Allergen Reactions Sulfacetamide Hives Sulfamethoxazole-Trimethoprim Hives Demerol [Meperidine] Rash Patient has tolerated fentanyl in house Latex Other (See Comments) Hives Methadone Other (See Comments) Stomach pains,shaky Sulfa Antibiotics Rash Vicodin [Hydrocodone-Acetaminophen] Rash OBJECTIVE Vital Signs: BP 122/58 (BP Location: Left forearm) | Pulse 97 | Temp 98.4 F (36.9 C) (Oral) | Res p 18 | Ht 1.778 m (5' 10") | Wt 122.6 kg (270 lb 4.8 oz) | LMP 10/04/2011 | SpO2 97% | BMI 38.78 kg/m Temp: [98.2 F (36.8 C)-98.9 F (37.2 C)] 98.4 F (36.9 C) (04/23 1158) BP: (95-122)/(54-66) 122/58 (04/23 1158) Heart Rate: [90-100] 97 (04/23 1158) Resp: [18-20] 18 (04/23 1158) SpO2: [95 %-97 %] 97 % (04/23 1158) Weight: [122.6 kg (270 lb 4.8 oz)] 122.6 kg (270 lb 4.8 oz) (04/23 1142) I&O Detailed Table: Intake/Output Summary (Last 24 hours) at 04/23/19 1428 Last data filed at 04/23/19 1400 Gross per 24 hour Intake 2641.37 ml Output 5100 ml Net -2458.63 ml Hemodynamics Last 24hrs: Examination: Constitutional: Alert and oriented to person, place, and time. HEENT no thrush Cardiovascular: Normal rate, regular rhythm, normal heart sounds and intact distal pulses. Exam reveals no gallop and no friction rub. No murmur heard. Pulmonary/Chest: Effort normal and breath sounds normal. No stridor. No respiratory distres s. no wheezes. no rales. exhibits no tenderness. Abdominal: Soft. Bowel sounds are normal. exhibits no distension and no mass. There is no t enderness. There is no rebound and no guarding. Musculoskeletal: Normal range of motion.exhibits no tenderness. exhibits left BKA and righ t AKA, surgical dressing in place at right AKA site. Neurological: Alert and oriented to person, place, and time. Has normal reflexes. Except left BKA and right AKA Skin: Skin is warm and dry. No rash noted. No erythema. No pallor. Psychiatric: Has a dysphoric mood and affect. Behavior is normal. Judgment normal. Laboratory: Glucose: Results Procedure Component Value Units Date/Time POCT glucose [[id number]] Collected: 04/23/19 1221 Updated: 04/23/19 1226 GLUCOSE,POC SCREEN 66 mg/dL CBC w/auto diff (reflex to manual) [[id number]] (Abnormal) Collected: 04/23/19 0506 Specimen: Blood Updated: 04/23/19 0651 WBC 9.60 K/uL RBC 2.59 (L) M/uL HGB 7.8 (L) g/dL HCT 23.2 (L) % MCV 89.6 fl MCH 30.2 pg MCHC 33.7 g/dL RDW SD 59.1 (H) fl PLT 345 K/uL MPV 8.3 fl DIFF TYPE MANUAL Neutrophils Manual 64 % Bands 5 % METAMYELOCYTES 2 % MYELOCYTES 1 % Lymphocytes Manual 19 % Monocytes Manual 8 % Eosinophils Manual 1 % Neutrophils Absolute 6.14 K/uL Bands Manual 0.48 (H) K/uL Metamyelocytes Absolute 0.19 (H) K/uL Myelocytes Absolute 0.10 (H) K/uL Lymphocytes Absolute 1.82 K/uL Monocytes Absolute 0.77 K/uL Eosinophils Absolute 0.10 K/uL Platelet Estimate INCREASED MORPHOLOGY 1+ Basic metabolic panel [[id number]] (Abnormal) Collected: 04/23/19 0506 Specimen: Blood Updated: 04/23/19630 SODIUM 137 mmol/L POTASSIUM 4.2 mmol/L CHLORIDE 106 mmol/L CO2 25 mmol/L ANION GAP AGAP 10 mmol/L GLUCOSE 55 (L) mg/dL BUN 45 (H) mg/dL CREATININE 1.24 (H) mg/dL BUN/CREAT 36 CALCIUM 7.7 (L) mg/dL EGFR 46 (L) mL/min/1.73m2 CPK [[id number]] (Abnormal) Collected: 04/23/19 050 Specimen: Blood Updated: 04/23/19630 CPK 3,534 (H) U/L POCT glucose [[id number]] Collected: 04/23/19523 Updated: 04/23/19 0559 GLUCOSE,POC SCREEN 70 mg/dL POCT glucose [[id number]] (Abnormal) Collected: 04/22/192107 Updated: 04/23/19 0559 GLUCOSE,POC SCREEN 131 (H) mg/dL POCT glucose [[id number]] (Abnormal) Collected: 04/22/19 1915 Updated: 04/23/19 0558 GLUCOSE,POC SCREEN 62 (L) mg/dL POCT glucose [[id number]] (Abnormal) Collected: 04/22/19 1638 Updated: 04/22/19 1643 GLUCOSE,POC SCREEN 115 (H) mg/dL POCT glucose [[id number]] Collected: 04/22/19 1312 Updated: 04/22/19 1643 GLUCOSE,POC SCREEN 75 mg/dL POCT glucose [[id number]] Collected: 04/22/19 1128 Updated: 04/22/19 1643 GLUCOSE,POC SCREEN 95 mg/dL Fecal occult blood (in house) [[id number]] Collected: 04/22/19 1535 Specimen: Stool from Stool Updated: 04/22/19 1549 Fecal Occult Blood NEGATIVE POCT glucose [[id number]] Collected: 04/22/19826 Updated: 04/22/19910 GLUCOSE,POC SCREEN 90 mg/dL CBC w/auto diff (reflex to manual) [[id number]] (Abnormal) Collected: 04/22/19553 Specimen: Blood Updated: 04/22/19722 WBC 11.69 (H) K/uL RBC 2.70 (L) M/uL HGB 7.8 (L) g/dL HCT 24.1 (L) % MCV 89.3 fl MCH 29.0 pg MCHC 32.5 g/dL RDW SD 57.3 (H) fl PLT 330 K/uL MPV 8.6 fl DIFF TYPE MANUAL Neutrophils Manual 77 % Bands 5 % Lymphocytes Manual 15 % Monocytes Manual 3 % Neutrophils Absolute 9.01 (H) K/uL Bands Manual 0.58 (H) K/uL Lymphocytes Absolute 1.75 K/uL Monocytes Absolute 0.35 K/uL MORPHOLOGY 1+ CPK [[id number]] (Abnormal) Collected: 04/22/19553 Specimen: Blood Updated: 04/22/19639 CPK 4,252 (H) U/L Basic metabolic panel [[id number]] (Abnormal) Collected: 04/22/19553 Specimen: Blood Updated: 04/22/19638 SODIUM 135 mmol/L POTASSIUM 4.5 mmol/L CHLORIDE 103 mmol/L CO2 25 mmol/L ANION GAP AGAP 12 mmol/L GLUCOSE 105 (H) mg/dL BUN 51 (H) mg/dL CREATININE 1.38 (H) mg/dL BUN/CREAT 37 CALCIUM 7.5 (L) mg/dL EGFR 41 (L) mL/min/1.73m2 Prepare RBC (type and crossmatch) (Blood Bank) [[id number]] Collected: 04/21/19 1040 Specimen: Blood Updated: 04/22/19628 ARM BAND NUMBER [id number] ABO/RH(D) O POSITIVE ANTIBODY SCREEN NEGATIVE UNIT NUMBER [id number] BLOOD COMPONENT TYPE LEUKODEPLETED PC UNIT DIVISION 00 STATUS OF UNIT ISSUED,FINAL TRANSFUSION STATUS OK TO TRANSFUSE CROSSMATCH RESULT -- COMPATIBLE Testing performed at [facility];[address] [place] [address];[place] [address] POCT glucose [[id number]] (Abnormal) Collected: 04/22/1940 Updated: 04/22/19 0621 GLUCOSE,POC SCREEN 107 (H) mg/dL Troponin I [[id number]] (Abnormal) Collected: 04/22/19 0030 Specimen: Blood Updated: 04/22/19 0059 TROPONIN I 0.088 (H) ng/mL POCT glucose [[id number]] (Abnormal) Collected: 04/21/19 2056 Updated: 04/21/19 2116 GLUCOSE,POC SCREEN 149 (H) mg/dL POCT glucose [[id number]] (Abnormal) Collected: 04/21/19 1618 Updated: 04/21/19 211 GLUCOSE,POC SCREEN 143 (H) mg/dL POCT glucose [[id number]] (Abnormal) Collected: 04/21/19 1119 Updated: 04/21/19 211 GLUCOSE,POC SCREEN 157 (H) mg/dL POCT glucose [[id number]] (Abnormal) Collected: 04/21/19 0822 Updated: 04/21/192115 GLUCOSE,POC SCREEN 112 (H) mg/dL Troponin I [[id number]] (Abnormal) Collected: 04/21/19 1830 Specimen: Blood Updated: 04/21/19 1902 TROPONIN I 0.086 (H) ng/mL Vit D Dihydroxy 1,25 [[id number]] Collected: 04/19/19 1626 Updated: 04/21/19 1508 VIT D DIHYDROXY 1,25 26.2 pg/mL Troponin I [[id number]] (Abnormal) Collected: 04/21/19 1242 Specimen: Blood Updated: 04/21/19 1330 TROPONIN I 0.079 (H) ng/mL Basic metabolic panel [[id number]] (Abnormal) Collected: 04/21/1940 Specimen: Blood Updated: 04/21/19 0735 SODIUM 135 mmol/L POTASSIUM 4.6 mmol/L CHLORIDE 100 mmol/L CO2 24 mmol/L ANION GAP AGAP 16 mmol/L GLUCOSE 110 (H) mg/dL BUN 55 (H) mg/dL CREATININE 1.7 (H) mg/dL BUN/CREAT 32 CALCIUM 7.9 (L) mg/dL EGFR 32 (L) mL/min/1.73m2 Magnesium [[id number]] (Abnormal) Collected: 08/03/19 0540 Specimen: Blood Updated: 04/21/19734 MAGNESIUM 1.6 (L) mg/dL Phosphorus [[id number]] Collected: 04/21/19539 Specimen: Blood Updated: 04/21/19734 PHOSPHORUS 4.5 mg/dL CBC w/auto diff (reflex to manual) [[id number]] (Abnormal) Collected: 04/21/19539 Specimen: Blood Updated: 04/21/19723 WBC 12.32 (H) K/uL RBC 2.53 (L) M/uL HGB 7.3 (L) g/dL HCT 22.6 (L) % MCV 89.0 fl MCH 29.0 pg MCHC 32.6 g/dL RDW SD 55.6 (H) fl PLT 312 K/uL MPV 8.7 fl DIFF TYPE MANUAL Neutrophils Manual 61 % Bands 8 % METAMYELOCYTES 4 % MYELOCYTES 1 % Lymphocytes Manual 19 % Monocytes Manual 6 % Eosinophils Manual 1 % Neutrophils Absolute 7.52 (H) K/uL Bands Manual 0.99 (H) K/uL Metamyelocytes Absolute 0.49 (H) K/uL Myelocytes Absolute 0.12 (H) K/uL Lymphocytes Absolute 2.34 K/uL Monocytes Absolute 0.74 K/uL Eosinophils Absolute 0.12 K/uL MORPHOLOGY 1+ Troponin I [[id number]] (Abnormal) Collected: 04/21/19539 Specimen: Blood Updated: 04/21/19719 TROPONIN I 0.091 (H) ng/mL CK MB [[id number]] (Abnormal) Collected: 04/21/19539 Updated: 04/21/19719 MMB 6.3 (H) ng/mL CK-MB Index 0.2 CPK [[id number]] (Abnormal) Collected: 04/21/19539 Specimen: Blood Updated: 04/21/19719 CPK 3,048 (H) U/L Blood Culture Set 1 [[id number]] Collected: 04/15/191257 Specimen: Blood from Blood Line Draw Updated: 04/21/19602 Specimen Description BLOOD, LINE DRAW SPECIAL REQUESTS ART LINE HAND CULTURE NO GROWTH 6 DAYS Blood Culture Set 2 [[id number]] Collected: 04/15/19 1255 Specimen: Blood from Blood Line Draw Updated: 08/03/19 0603 Specimen Description BLOOD, LINE DRAW SPECIAL REQUESTS art line CULTURE NO GROWTH 6 DAYS RPR Titer [[id number]] Collected: 04/17/19 1952 Specimen: Blood Updated: 04/21/19 0509 RPR Titer Non Reactive Troponin I [[id number]] (Abnormal) Collected: 04/21/19 0015 Specimen: Blood Updated: 04/21/19 0045 TROPONIN I 0.074 (H) ng/mL POCT glucose [[id number]] (Abnormal) Collected: 04/20/19 215 Updated: 04/20/19 215 GLUCOSE,POC SCREEN 179 (H) mg/dL POCT glucose [[id number]] (Abnormal) Collected: 04/20/19 1615 Updated: 04/20/19 1629 GLUCOSE,POC SCREEN 176 (H) mg/dL Sodium [[id number]] (Abnormal) Collected: 04/20/19 1451 Specimen: Blood Updated: 04/20/19 1511 SODIUM 130 (L) mmol/L CBC: Lab Results Component Value Date WBC 9.60 04/23/2019 RBC 2.59 (L) 04/23/2019 HGB 7.8 (L) 04/23/2019 HCT 23.2 (L) 04/23/2019 MCV 89.6 04/23/2019 MCH 30.2 04/23/2019 MCHC 33.7 04/23/2019 RDW 59.1 (H) 04/23/2019 PLT 345 04/23/2019 MPV 8.3 04/23/2019 DIFFTYPE MANUAL 04/23/2019 CMP: Lab Results Component Value Date NA 137 04/23/2019 K 4.2 04/23/2019 CL 106 04/23/2019 CO2 25 04/23/2019 ANIONGAP 10 04/23/2019 GLUF 55 (L) 04/23/2019 BUN 45 (H) 04/23/2019 CREATININE 1.24 (H) 04/23/2019 CREATININE 3.11 (A) 11/17/2017 BCR 36 04/23/2019 CA 7.7 (L) 04/23/2019 CA 9.4 07/01/2017 PROT 5.7 (L) 04/13/2019 ALB 2.6 (L) 04/13/2019 GLOB 3.1 04/13/2019 BILITOT 0.9 04/13/2019 ALP 291 (H) 04/13/2019 AST 50 (H) 04/13/2019 ALT 32 04/13/2019 EGFR 46 (L) 04/23/2019 Magnesium: Lab Results Component Value Date MG 1.6 (L) 04/21/2019 Phosphorus: Lab Results Component Value Date PHOS 4.5 04/21/2019 PT/INR: Lab Results Component Value Date INR 2.2 04/14/2019 Last 3 Troponin: Lab Results Component Value Date TROPONINI 0.088 (H) 04/22/2019 TROPONINI 0.086 (H) 04/21/2019 TROPONINI 0.079 (H) 04/21/2019 ABG: Lab Results Component Value Date POCPH 7.368 04/14/2019 POCPCO 36 04/14/2019 POCPO2 105 04/14/2019 POCHCO 21 (L) 04/14/2019 POCTCO2 22 (L) 04/14/2019 POCBD 5 (H) 04/14/2019 POCSO2 98 04/14/2019 POCCMT Modified Chin Test passed 04/14/2019 X-ray Chest 1 View Result Date: 04/21/2019 CHEST ONE VIEW CLINICAL INFORMATION: Chest pain. COMPARISON: XR CHEST 1 VIEW (04/18/2019); X R CHEST 1 VIEW (04/13/2019); XR CHEST 1 VIEW (01/05/2016); XR CHEST 1 VIEW (01/01/2016); XR JESU ST 1 VIEW (12/30/2015); CT CHEST W CONTRAST (10/17/2011); FINDINGS: Left chest single lead pre sternal AICD. Right PICC line tip terminates near the atrial caval junction. Hypoventilator y changes. No focal consolidation, pneumothorax or pleural effusion. Borderline cardiomega ly. No acute cardiopulmonary disease. Lungs clear. Signed by: Emy Garcia Zachary Sign Date/ Time: 04/21/2019 1:01 AM Xr Chest 1 View Result Date: 04/18/2019 CHEST ONE VIEW CLINICAL INFORMATION: Pneumonia and sepsis. COMPARISON: XR CHEST 1 VIEW (03/20); ECHO OUTSIDE INTERPRETATION (03/24/2017); XR CHEST 1 VIEW (01/05/2016); FINDINGS: Prev ious left IJ catheter is been removed. No pneumothorax. Single lead AICD with battery pack over the left chest with lead extending vertically into the precordial region. Resolution of previous pulmonary venous congestion and interstitial edema. Subtle residual effusions a re suspected. Heart size is normal. 1. Resolution previous CHF and pulmonary edema perhaps with subtle residual effusions. Sign ed by: Emy Rivers Shawn Sign Date/Time: 04/18/2019 1:27 PM PROBLEM LIST Principal Problem: Septic shock (HCC) Active Problems: Morbid obesity (HCC) CHF (congestive heart failure) ([facility]) CKD (chronic kidney disease), stage IV Metabolic acidosis ICD (implantable cardioverter-defibrillator), single, 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, with long-term current use of insulin (HCC) Ischemic cardiomyopathy Sepsis (HCC) Gangrene of extremity ([facility]) Hyperkalemia Lactic acidosis Hyponatremia Group G streptococcal infection Skin ulcer of finger, limited to breakdown of skin ([facility]) Hyperkalemia Chest pain Non-traumatic rhabdomyolysis ASSESSMENT & PLAN Septic shock resolved and was likely secondary to right leg wet gangrene and streptococcal bacteremia secondary to it status post right above-knee amputation by Dr. Cook Plan continue the patient on Rocephin IV daily through April 27 PICC line placed Appreciate infectious disease input Chest pain rule out underlying occlusive coronary artery disease and troponin minimally shoshana vated not consistent with acute coronary syndrome Plan continue the patient on aspirin,, metoprolol and patient rescheduled for nuclear cardi ac stress tomorrow Rhabdomyolysis likely secondary to being on high doses of statins CPK up to 4200 trending d ownwards no Plan start the patient on gentle IV hydration, check CPK daily and atorvastatin discontinue d Obstipation likely secondary to immobility and being on narcotics resolved Leukocytosis resolved and likely secondary to streptococcal bacteremia Plan continue the patient on Rocephin IV daily through April 27 Major depression and PTSD Plan psych consulted who recommend to increase Effexor to 225 mg daily and prazosin added a t night for PTSD Acute pain postop involving the right above-knee amputation site pain better controlled plan continue on gabapentin 300 mg at night and 200 mg in the morning And continue on oxycodone as needed Diabetes mellitus insulin-dependent blood glucose reasonably controlled Plan continue the patient on Levemir 25 units twice daily, lispro 12 units with meals and i nsulin sliding scale Chronic systolic CHF well compensated with most recent ejection fraction of 35% Plan continue on metoprolol and Torsemide We will continue to hold losartan due to hyperkalemia Hyperkalemia likely secondary to losartan which has discontinued and potassium normalized Acute renal failure on chronic kidney disease stage IV resolved Anemia: Likely secondary anemia of chronic kidney disease and daily blood draws otherwise c omplete iron panel B12 folate are within normal limits and hemoglobin around 7.8 currently a symptomatic status post 1 unit of blood transfusion Plan continue patient on epogen and check CBC periodically Guaiac stools negative Insomnia patient able to sleep better now Plan continue on trazodone 100 mg at night Bilateral knee amputation: Patient will likely benefit from rehabilitation after the DVT prophylaxis on heparin MARK CARRANZA MD 04/23/2019 Gisela Sharma, PT - 0 04/23/2019 2:10 PM PDT Therapy Progress Note by Gisela Zaragoza PT at 04/23/19 1410 Author: Gisela Zaragoza PT Service: (none) Author Type: Physical Therapist Filed: 04/23/19 1520 Date of Service: 04/23/19 1410 Status: Signed Chief Pharmacist: Gisela Zaragoza PT (Physical Therapist) PHYSICAL THERAPY TREATMENT NOTE PT Received On: 04/23/19 Reason for Treatment: Amputation (acute R AKA; chronic L BKA; septic shock) Requires PT Follow Up: Yes Recommendations: Acute OT, SNF Recommendation Comments: Pt requires MAX A x 2 or mechanical lift for most aspects of mobil ity. Recommend subacute rehab in SNF setting and OT acutely to initiate ADL retraining. Plan Treatment/Interventions: Continue per Primary PT POC Progress: Slow progress, decreased activity tolerance Summary Comments: Pt resting in bed, agreeable to therapy. Ampushield now in room but not donned. Pt's dressing had fallen off, time spent for RN to present and redress. Pt performed rolli ng to don ampushield and LE exercises in bed. Pt requesting to don LLE prostethetic to assi st with seated balance activities, however volume of residual limb appears increased as PT w as unable to get prosthetic to fit. She was assisted to EOB but limited by length of ampush iled prohibiting excursion forward of trunk on pelvis and necessitating MOD to MAX A to main tain upright. Pt did not tolerate sitting EOB for more than a few minutes and was assisted back to supine with time spent to reposition for comfort. Pt resting in bed with needs met when session concluded. Pre/Peak/Post Position BP Pulse rate O2 sats L/min Pain complaint Pain intervention Pre Supine HOB elevated 111/84 100 99 RA 5/10 in surgical LE RN informed & provided pain me ds; repositioned pt Post Supine HOB elevated 150/54 96 97 RA 7/10 in surgical LE Precautions LE Precaution(s): RLE, LLE Precautions/WB RLE: Non weight bearing, Other (ampu shield) Precautions/WB LLE: Non weight bearing (h/o BKA) Other Precautions: High fall risk, premedicate for pain Cognition Overall Cognitive Status: Within Functional Limits Orientation Level: Oriented Oriented: x 4 FUNCTIONAL MOBILITY Bed Mobility Rolling: Moderate assist, Maximal assist, To right, To left, x 1 person, x 2 person Supine to Sit: Max assist (BLEs OOB & trunk to upright), x 2 person (HOB elevated) Sit to Supine: Max assist (BLEs into bed & trunk to lower), x 2 person Scooting : Maximal assist, x 1 person, x 2 person - Transfers Sit to/from Stand: Unable to assess (Comment) Ambulation Maximal Ambulation Distance (feet): 0 Total Ambulation Distance (feet): 0 Ambulation Assistance: Unable to assess (Comment) BALANCE Static Sitting Balance Static Sitting-Balance Support: Right upper extremity support, Left upper extremity support Static Sitting-Level of Assistance: Moderate assist, Maximal assist, Doesn't attain midline , Doesn't maintain midline (posterior lean) Static Sitting-Comment/Duration: 5 min max THERAPEUTIC EXERCISE Supine-Exercise Type: Straight leg raising, Quad sets Supine-Exercise Comments: x10 Side Lying-Exercise Type: Hip flexion, Hip extension, Knee extension Side Lying-Exercise Comments: x 10 RLE, limited by pain with ampushield donned Activity Tolerance: Patient limited by pain, Patient limited by fatigue Nurse Made Aware: Yes RN Reshma Safety Devices in Place: (call light/needs in reach, RN aware) Restraints Initially in Place: No Education Completed: Education Topics: [x] Rationale for PT [x] PT POC [] DC planning [x] Precautions [x] Exercises [x] Bed mobility [] Transfer training with hand placement [] Gait training [] Stair training [] Use of gait belt [] Other Completed with: [x] Patient [] Spouse [] Significant other [] Family [] C aregiver [] Other Completed by: [x] Verbal education [x] Demonstration [] Handout [] Other: Response to Education: [] Stated Understanding [x] Reinforcement necessary [] Returned demonstration [] Demonstrated understanding [] No evidence of learning [] Refused PT Goals Goal Formulation: With patient Pt Will Go Supine To Sit: With moderate assist Pt Will Go Sit To Supine: With moderate assist Pt Will Transfer Bed/Chair: Dependently Pt Will Propel Wheelchair: greater than 200 feet W/C Level of Assist: With standby assist Pt Will Achieve Sitting Balance: Moves / returns from midline greater than 2 inches in mult iple planes, Sits for greater than 5 minutes while performing UE tasks Pt Will Sit Edge of Bed: 11-15 min, With standby assist Pt Will Perform Home Exer Program: With use of handout for guidance Pt Will Tolerate Continuous Activity: Participate in 30 minutes of activity with rest break s Patient Education: Patient will be educated regarding precautions specific to diagnosis, Pa tient will demonstrate adherence to precautions with verbal instruction Reflects last filed data of patient's status; may be from multiple contributors onversion Transaction , Provider Unknown - 04/23/2019 9:26 AM PDT Case Management by Yuli Guerar RN at 04/23/19925 Author: Yuli Guerra RN Service: (none) Author Type: Registered Nurse Filed: 04/23/19 3962 Date of Service: 04/23/19925 Status: Addendum Chief Pharmacist: Yuli Guerra RN (Registered Nurse) Related Notes: Original Note by Yuli Guerra RN (Registered Nurse) filed at 04/23/19 1788 [id number]: called Britney at [facility] to follow up on referral over the weekend. Pt has Indra doll and [place] Medicaid as secondary- Britney verified that [place] Medicaid only covers in [place]. Britney said they are unable to accept the pt as she most likely needs more than 20 days. I went and spoke with the pt and informed her this. She was tearful about going somewhere over there. I informed her I can reach out to the other SNFs here in town but ofelia t if she needs more days than 20, then she will have to pay the 20% out of pocket. I explai eliazar that in [place] that she will have the 100 days covered. She stated understanding and wa nted to let me know later. Rounded with Dr Carranza: pt not medically ready for discharge. Had chest pain over the weeke nd- watching trends on labs. Pt requesting new PCP. 1025: called Iftikhar at [facility] to update her on plan of care- no answer, left voice mail. 1030: Iftikhar called back- updated her on pt's thoughts and that Dr Carranza said that she is not medically ready today. 1545: spoke with Ritu with [facility] about new PCP- she said that providers are scheduled out un july for pt's who already have a provider. Pt will need to follow up with PCP that she has now and then can transition to a new PCP in the [facility] system later. onver jessica Transaction, Provider Unknown - 04/23/2019 5:45 AM PDT Nurse Progress Note by Abiola Jane RN at 04/23/19544 Author: Abiola Jane RN Service: (none) Author Type: Registered Nurse Filed: 04/23/1946 Date of Service: 04/23/19544 Status: Signed Chief Pharmacist: Abiola Jane RN (Registered Nurse) Pt NPO at midnight with exception of water for stress test. End of shift review complete.Abiola Jane Mark England MD - 04/22/2019 3:34 PM PDTFormatting of this note might be different from the or iginal. Progress Notes by Mark Carranza MD at 04/22/19 9642 Author: Mark Carranza MD Service: Hospitalist Author Type: Physician Filed: 04/22/19 1546 Date of Service: 04/22/194 Status: Signed Chief Pharmacist: Mark Carranza MD (Physician) Hospitalist Progress Note Alondra Caballero 49 y.o. [phone] [id number] female [place] [facility] Hospital Day: LOS: 9 days Patient Summary: 49-year-old female with past medical history of methamphetamine abus e stopped 8 years ago, diabetes mellitus type 2 insulin-dependent, chronic kidney disease st age IV, coronary disease status post cardiac stent to left circumflex, chronic total occlude d proximal LAD, CHF with ejection fraction 35 %, history of left BKA who was transferred fro [facility] with worsening swelling of the right leg, pain, right foot ulcer wi th purulent discharge, necrotic tissue found to have a white count of 50,000, lactic acid of 1.9, creatinine of 3.78, potassium of 6.5, sodium of 122 when patient started on vancomycin as well as Zosyn shortly after arrival patient develop septic shock and was given 3 L of no rmal saline bolus and started on levophed after which the patient was transferred to ICU for higher level of care. Dr. Cook from vascular surgery consulted patient underwent right above-knee amputation for g angrene of right lower extremity with sepsis. Patient blood culture grew group G strep to c occal and antibiotics narrowed down to Rocephin on 16 April IV through April 27. Patient had a echocardiogram which showed ejection fraction of 30 to 35% and pseudo-normal LV diastolic filling pattern grade 2 dysfunction and no evidence of endocarditis. Patient had episode of chest pain on april and troponin was checked which was minima lly elevated with CPK around 3000 which went up to 4200 thought to be secondary to statin wh ich has discontinued . Patient scheduled for stress test today which was postponed till karolina as she had breakfast SUBJECTIVE and Events Overnight: Patient seen and examine. No acute over night event. Patient complaining of difficulty sle eping at night recasting sleeping medication and still complaining of sore throat and sore m outh getting better with the use of [place] mouthwash, denied any chest pain no shortness of br eath Scheduled Medications allopurinol 300 mg Oral Daily aspirin 81 mg Oral Daily calcium carbonate 1,000 mg Oral BID cefTRIAXone 2 g Intravenous Q24H ozqiquzkgpzwqyo-kdihjaqzmxdnuk-ssppxsas 10 mL Swish & Spit 4x daily epoetin poppy 10,000 Units Subcutaneous Once per day on Tue gabapentin 300 mg Oral Nightly heparin 5,000 Units Subcutaneous 3 times per day insulin detemir 25 Units Subcutaneous BID insulin lispro (human) 0-10 Units Subcutaneous TID AC insulin lispro (human) 0-5 Units Subcutaneous Nightly insulin lispro (human) 12 Units Subcutaneous TID AC isosorbide mononitrate 30 mg Oral Daily lactulose 20 g Oral TID magnesium hydroxide 30 mL Oral Once methylnaltrexone 12 mg Subcutaneous Daily metoprolol 50 mg Oral Daily nystatin Topical BID polyethylene glycol 17 g Oral Daily prazosin 1 mg Oral Nightly sodium bicarbonate 1,300 mg Oral TID sodium chloride 10 mL Intravenous 2 times per day torsemide 20 mg Oral Daily traZODone 100 mg Oral Nightly venlafaxine 225 mg Oral Daily with breakfast Continuous Infusions dextrose sodium chloride (IV) 75 mL/hr at 04/22/19 0915 PRN Medications acetaminophen OR acetaminophen, albuterol, dextrose, dextrose, dextrose, docusate sodiu m OR docusate, glucagon, glucagon, ondansetron OR ondansetron, oxyCODONE OR oxyC ODONE OR oxyCODONE, petrolatum, phenol, sodium chloride Allergy: Allergies Allergen Reactions Sulfacetamide Hives Sulfamethoxazole-Trimethoprim Hives Demerol [Meperidine] Rash Patient has tolerated fentanyl in house Latex Other (See Comments) Hives Methadone Other (See Comments) Stomach pains,shaky Sulfa Antibiotics Rash Vicodin [Hydrocodone-Acetaminophen] Rash OBJECTIVE Vital Signs: BP 105/52 (BP Location: Left upper arm) | Pulse 99 | Temp 98.2 F (36.8 C) (Oral) | R bean 20 | Ht 1.778 m (5' 10") | Wt 123.4 kg (272 lb) | LMP 10/04/2011 | SpO2 96% | BMI 3 9.03 kg/m Temp: [98 F (36.7 C)-98.6 F (37 C)] 98.2 F (36.8 C) (04/22 1124) BP: (91-120)/(49-57) 105/52 (04/22 1124) Heart Rate: [96-100] 99 (04/22 1124) Resp: [18-20] 20 (04/22 1124) SpO2: [93 %-97 %] 96 % (04/22 1124) I&O Detailed Table: Intake/Output Summary (Last 24 hours) at 04/22/19 1534 Last data filed at 04/22/19 1400 Gross per 24 hour Intake 280 ml Output 6350 ml Net -6070 ml Hemodynamics Last 24hrs: Examination: Constitutional: Alert and oriented to person, place, and time. Cardiovascular: Normal rate, regular rhythm, normal heart sounds and intact distal pulses. Exam reveals no gallop and no friction rub. No murmur heard. Pulmonary/Chest: Effort normal and breath sounds normal. No stridor. No respiratory distres s. no wheezes. no rales. exhibits no tenderness. Abdominal: Soft. Bowel sounds are normal. exhibits no distension and no mass. There is no t enderness. There is no rebound and no guarding. Musculoskeletal: Normal range of motion.exhibits no tenderness. exhibits left BKA and righ t AKA, surgical dressing in place at right AKA site. Neurological: Alert and oriented to person, place, and time. Has normal reflexes. Except left BKA and right AKA Skin: Skin is warm and dry. No rash noted. No erythema. No pallor. Psychiatric: Has a dysphoric mood and affect. Behavior is normal. Judgment normal. Laboratory: Glucose: Results Procedure Component Value Units Date/Time POCT glucose [[id number]] Collected: 04/22/19826 Updated: 04/22/19 09 GLUCOSE,POC SCREEN 90 mg/dL CBC w/auto diff (reflex to manual) [[id number]] (Abnormal) Collected: 04/22/19 0554 Specimen: Blood Updated: 04/22/19722 WBC 11.69 (H) K/uL RBC 2.70 (L) M/uL HGB 7.8 (L) g/dL HCT 24.1 (L) % MCV 89.3 fl MCH 29.0 pg MCHC 32.5 g/dL RDW SD 57.3 (H) fl PLT 330 K/uL MPV 8.6 fl DIFF TYPE MANUAL Neutrophils Manual 77 % Bands 5 % Lymphocytes Manual 15 % Monocytes Manual 3 % Neutrophils Absolute 9.01 (H) K/uL Bands Manual 0.58 (H) K/uL Lymphocytes Absolute 1.75 K/uL Monocytes Absolute 0.35 K/uL MORPHOLOGY 1+ CPK [[id number]] (Abnormal) Collected: 04/22/19553 Specimen: Blood Updated: 04/22/19639 CPK 4,252 (H) U/L Basic metabolic panel [[id number]] (Abnormal) Collected: 04/22/1954 Specimen: Blood Updated: 04/22/19638 SODIUM 135 mmol/L POTASSIUM 4.5 mmol/L CHLORIDE 103 mmol/L CO2 25 mmol/L ANION GAP AGAP 12 mmol/L GLUCOSE 105 (H) mg/dL BUN 51 (H) mg/dL CREATININE 1.38 (H) mg/dL BUN/CREAT 37 CALCIUM 7.5 (L) mg/dL EGFR 41 (L) mL/min/1.73m2 Prepare RBC (type and crossmatch) (Blood Bank) [[id number]] Collected: 04/21/19 1040 Specimen: Blood Updated: 04/22/19628 ARM BAND NUMBER [id number] ABO/RH(D) O POSITIVE ANTIBODY SCREEN NEGATIVE UNIT NUMBER [id number] BLOOD COMPONENT TYPE LEUKODEPLETED PC UNIT DIVISION 00 STATUS OF UNIT ISSUED,FINAL TRANSFUSION STATUS OK TO TRANSFUSE CROSSMATCH RESULT -- COMPATIBLE Testing performed at [facility];[address] [place] [address];[place] [address] POCT glucose [[id number]] (Abnormal) Collected: 04/22/19539 Updated: 04/22/19620 GLUCOSE,POC SCREEN 107 (H) mg/dL Troponin I [[id number]] (Abnormal) Collected: 04/22/19 0030 Specimen: Blood Updated: 04/22/19 0059 TROPONIN I 0.088 (H) ng/mL POCT glucose [[id number]] (Abnormal) Collected: 04/21/192055 Updated: 04/21/192115 GLUCOSE,POC SCREEN 149 (H) mg/dL POCT glucose [[id number]] (Abnormal) Collected: 04/21/19 1618 Updated: 04/21/192115 GLUCOSE,POC SCREEN 143 (H) mg/dL POCT glucose [[id number]] (Abnormal) Collected: 04/21/19 1119 Updated: 04/21/192115 GLUCOSE,POC SCREEN 157 (H) mg/dL POCT glucose [[id number]] (Abnormal) Collected: 04/21/19 0822 Updated: 04/21/19 2116 GLUCOSE,POC SCREEN 112 (H) mg/dL Troponin I [[id number]] (Abnormal) Collected: 04/21/19 1830 Specimen: Blood Updated: 04/21/19 1902 TROPONIN I 0.086 (H) ng/mL Vit D Dihydroxy 1,25 [[id number]] Collected: 04/19/19 1626 Updated: 04/21/19 1508 VIT D DIHYDROXY 1,25 26.2 pg/mL Troponin I [[id number]] (Abnormal) Collected: 04/21/19 1242 Specimen: Blood Updated: 04/21/19 1330 TROPONIN I 0.079 (H) ng/mL Basic metabolic panel [[id number]] (Abnormal) Collected: 04/21/19539 Specimen: Blood Updated: 04/21/19734 SODIUM 135 mmol/L POTASSIUM 4.6 mmol/L CHLORIDE 100 mmol/L CO2 24 mmol/L ANION GAP AGAP 16 mmol/L GLUCOSE 110 (H) mg/dL BUN 55 (H) mg/dL CREATININE 1.7 (H) mg/dL BUN/CREAT 32 CALCIUM 7.9 (L) mg/dL EGFR 32 (L) mL/min/1.73m2 Magnesium [[id number]] (Abnormal) Collected: 04/21/19539 Specimen: Blood Updated: 04/21/19734 MAGNESIUM 1.6 (L) mg/dL Phosphorus [[id number]] Collected: 04/21/19539 Specimen: Blood Updated: 04/21/19734 PHOSPHORUS 4.5 mg/dL CBC w/auto diff (reflex to manual) [[id number]] (Abnormal) Collected: 04/21/19539 Specimen: Blood Updated: 04/21/19723 WBC 12.32 (H) K/uL RBC 2.53 (L) M/uL HGB 7.3 (L) g/dL HCT 22.6 (L) % MCV 89.0 fl MCH 29.0 pg MCHC 32.6 g/dL RDW SD 55.6 (H) fl PLT 312 K/uL MPV 8.7 fl DIFF TYPE MANUAL Neutrophils Manual 61 % Bands 8 % METAMYELOCYTES 4 % MYELOCYTES 1 % Lymphocytes Manual 19 % Monocytes Manual 6 % Eosinophils Manual 1 % Neutrophils Absolute 7.52 (H) K/uL Bands Manual 0.99 (H) K/uL Metamyelocytes Absolute 0.49 (H) K/uL Myelocytes Absolute 0.12 (H) K/uL Lymphocytes Absolute 2.34 K/uL Monocytes Absolute 0.74 K/uL Eosinophils Absolute 0.12 K/uL MORPHOLOGY 1+ Troponin I [[id number]] (Abnormal) Collected: 04/21/19539 Specimen: Blood Updated: 04/21/19719 TROPONIN I 0.091 (H) ng/mL CK MB [[id number]] (Abnormal) Collected: 04/21/19539 Updated: 04/21/19719 MMB 6.3 (H) ng/mL CK-MB Index 0.2 CPK [[id number]] (Abnormal) Collected: 04/21/19539 Specimen: Blood Updated: 04/21/19719 CPK 3,048 (H) U/L Blood Culture Set 1 [[id number]] Collected: 04/15/19 1258 Specimen: Blood from Blood Line Draw Updated: 04/21/19602 Specimen Description BLOOD, LINE DRAW SPECIAL REQUESTS ART LINE HAND CULTURE NO GROWTH 6 DAYS Blood Culture Set 2 [[id number]] Collected: 04/15/19 125 Specimen: Blood from Blood Line Draw Updated: 04/21/19602 Specimen Description BLOOD, LINE DRAW SPECIAL REQUESTS art line CULTURE NO GROWTH 6 DAYS RPR Titer [[id number]] Collected: 04/17/19 1952 Specimen: Blood Updated: 04/21/19 0509 RPR Titer Non Reactive Troponin I [[id number]] (Abnormal) Collected: 04/21/19 0015 Specimen: Blood Updated: 04/21/19 0045 TROPONIN I 0.074 (H) ng/mL POCT glucose [[id number]] (Abnormal) Collected: 04/20/192152 Updated: 04/20/19 215 GLUCOSE,POC SCREEN 179 (H) mg/dL POCT glucose [[id number]] (Abnormal) Collected: 04/20/19 1615 Updated: 04/20/19 1629 GLUCOSE,POC SCREEN 176 (H) mg/dL Sodium [[id number]] (Abnormal) Collected: 04/20/19 1451 Specimen: Blood Updated: 04/20/19 1511 SODIUM 130 (L) mmol/L Sputum culture [[id number]] Collected: 04/18/19 1448 Specimen: Sputum from Sputum Updated: 04/20/19 1354 Specimen Description SPUTUM GRAM STAIN GREATER THAN 10 WBCS/LPF GRAM STAIN LESS THAN 10 SEC/LPF GRAM STAIN NO ORGANISMS SEEN CULTURE 1+ NORMAL UPPER RESPIRATORY RADHA Urine culture [[id number]] Collected: 04/19/19 1051 Specimen: Urine from Urine, Clean Catch Updated: 04/20/19 1225 Specimen Description URINE,CLEAN CATCH CULTURE NO GROWTH POCT glucose [[id number]] (Abnormal) Collected: 04/20/19 1210 Updated: 04/20/19 1222 GLUCOSE,POC SCREEN 134 (H) mg/dL Sodium [[id number]] (Abnormal) Collected: 04/20/19 1101 Specimen: Blood Updated: 04/20/19 1121 SODIUM 133 (L) mmol/L POCT glucose [[id number]] (Abnormal) Collected: 04/20/19 0559 Updated: 04/20/19 0833 GLUCOSE,POC SCREEN 131 (H) mg/dL CBC w/auto diff (reflex to manual) [[id number]] (Abnormal) Collected: 04/20/19 0355 Specimen: Blood Updated: 04/20/19 0511 WBC 16.83 (H) K/uL RBC 2.63 (L) M/uL HGB 7.7 (L) g/dL HCT 23.3 (L) % MCV 88.5 fl MCH 29.2 pg MCHC 33.0 g/dL RDW SD 53.4 (H) fl PLT 297 K/uL MPV 8.6 fl DIFF TYPE MANUAL Neutrophils Manual 66 % Bands 5 % METAMYELOCYTES 5 % MYELOCYTES 3 % Lymphocytes Manual 14 % Monocytes Manual 5 % Eosinophils Manual 2 % Neutrophils Absolute 11.11 (H) K/uL Bands Manual 0.84 (H) K/uL Metamyelocytes Absolute 0.84 (H) K/uL Myelocytes Absolute 0.50 (H) K/uL Lymphocytes Absolute 2.36 K/uL Monocytes Absolute 0.84 (H) K/uL Eosinophils Absolute 0.34 K/uL Platelet Estimate ADEQUATE MORPHOLOGY PLATELET ANISOCYTOSIS Basic metabolic panel [[id number]] (Abnormal) Collected: 04/20/19 0355 Specimen: Blood Updated: 04/20/19 0502 SODIUM 131 (L) mmol/L POTASSIUM 5.2 (H) mmol/L CHLORIDE 99 mmol/L CO2 26 mmol/L ANION GAP AGAP 11 mmol/L GLUCOSE 142 (H) mg/dL BUN 52 (H) mg/dL CREATININE 1.7 (H) mg/dL BUN/CREAT 31 CALCIUM 7.5 (L) mg/dL EGFR 32 (L) mL/min/1.73m2 POCT glucose [[id number]] (Abnormal) Collected: 04/19/192109 Updated: 04/19/192115 GLUCOSE,POC SCREEN 174 (H) mg/dL Vitamin D 25 hydroxy [[id number]] Collected: 04/17/191951 Specimen: Blood Updated: 04/19/19 1740 VITAMIN D,25 HYDROXY 50 ng/mL TSH [[id number]] (Abnormal) Collected: 04/17/191951 Specimen: Blood Updated: 04/19/19 1706 TSH 9.360 (H) uIU/mL POCT glucose [[id number]] (Abnormal) Collected: 04/19/19 163 Updated: 04/19/19 1637 GLUCOSE,POC SCREEN 116 (H) mg/dL CBC: Lab Results Component Value Date WBC 11.69 (H) 04/22/2019 RBC 2.70 (L) 04/22/2019 HGB 7.8 (L) 04/22/2019 HCT 24.1 (L) 04/22/2019 MCV 89.3 04/22/2019 MCH 29.0 04/22/2019 MCHC 32.5 04/22/2019 RDW 57.3 (H) 04/22/2019 PLT 330 04/22/2019 MPV 8.6 04/22/2019 DIFFTYPE MANUAL 04/22/2019 CMP: Lab Results Component Value Date NA 135 04/22/2019 K 4.5 04/22/2019 CL 103 04/22/2019 CO2 25 04/22/2019 ANIONGAP 12 04/22/2019 GLUF 105 (H) 04/22/2019 BUN 51 (H) 04/22/2019 CREATININE 1.38 (H) 04/22/2019 CREATININE 3.11 (A) 11/17/2017 BCR 37 04/22/2019 CA 7.5 (L) 04/22/2019 CA 9.4 07/01/2017 PROT 5.7 (L) 04/13/2019 ALB 2.6 (L) 04/13/2019 GLOB 3.1 04/13/2019 BILITOT 0.9 04/13/2019 ALP 291 (H) 04/13/2019 AST 50 (H) 04/13/2019 ALT 32 04/13/2019 EGFR 41 (L) 04/22/2019 Magnesium: Lab Results Component Value Date MG 1.6 (L) 04/21/2019 Phosphorus: Lab Results Component Value Date PHOS 4.5 04/21/2019 PT/INR: Lab Results Component Value Date INR 2.2 04/14/2019 Last 3 Troponin: Lab Results Component Value Date TROPONINI 0.088 (H) 04/22/2019 TROPONINI 0.086 (H) 04/21/2019 TROPONINI 0.079 (H) 04/21/2019 ABG: Lab Results Component Value Date POCPH 7.368 04/14/2019 POCPCO 36 04/14/2019 POCPO2 105 04/14/2019 POCHCO 21 (L) 04/14/2019 POCTCO2 22 (L) 04/14/2019 POCBD 5 (H) 04/14/2019 POCSO2 98 04/14/2019 POCCMT Modified Chin Test passed 04/14/2019 X-ray Chest 1 View Result Date: 04/21/2019 CHEST ONE VIEW CLINICAL INFORMATION: Chest pain. COMPARISON: XR CHEST 1 VIEW (04/18/2019); X R CHEST 1 VIEW (04/13/2019); XR CHEST 1 VIEW (01/05/2016); XR CHEST 1 VIEW (01/01/2016); XR JESU ST 1 VIEW (12/30/2015); CT CHEST W CONTRAST (10/17/2011); FINDINGS: Left chest single lead pre sternal AICD. Right PICC line tip terminates near the atrial caval junction. Hypoventilator y changes. No focal consolidation, pneumothorax or pleural effusion. Borderline cardiomega ly. No acute cardiopulmonary disease. Lungs clear. Signed by: Emy Garcia, Luis E Sign Date/ Time: 04/21/2019 1:01 AM Xr Chest 1 View Result Date: 04/18/2019 CHEST ONE VIEW CLINICAL INFORMATION: Pneumonia and sepsis. COMPARISON: XR CHEST 1 VIEW (03/20); ECHO OUTSIDE INTERPRETATION (03/24/2017); XR CHEST 1 VIEW (01/05/2016); FINDINGS: Prev ious left IJ catheter is been removed. No pneumothorax. Single lead AICD with battery pack over the left chest with lead extending vertically into the precordial region. Resolution of previous pulmonary venous congestion and interstitial edema. Subtle residual effusions a re suspected. Heart size is normal. 1. Resolution previous CHF and pulmonary edema perhaps with subtle residual effusions. Sign ed by: Emy Rivers, Barrie Sign Date/Time: 04/18/2019 1:27 PM PROBLEM LIST Principal Problem: Septic shock (HCC) Active Problems: Morbid obesity (HCC) CHF (congestive heart failure) ([facility]) CKD (chronic kidney disease), stage IV Metabolic acidosis ICD (implantable cardioverter-defibrillator), single, 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, with long-term current use of insulin (HCC) Ischemic cardiomyopathy Sepsis (HCC) Gangrene of extremity (HCC) Hyperkalemia Lactic acidosis Hyponatremia Group G streptococcal infection Skin ulcer of finger, limited to breakdown of skin (HCC) Hyperkalemia Chest pain Non-traumatic rhabdomyolysis ASSESSMENT & PLAN Septic shock resolved and was likely secondary to right leg wet gangrene and streptococcal bacteremia secondary to it status post right above-knee amputation by Dr. Cook Plan continue the patient on Rocephin IV daily through April 27 PICC line placed Appreciate infectious disease input Chest pain rule out underlying occlusive coronary artery disease and troponin minimally shoshana vated not consistent with acute coronary syndrome Plan continue the patient on aspirin,, metoprolol and patient rescheduled for nuclear cardi ac stress tomorrow Rhabdomyolysis likely secondary to being on high doses of statins CPK up to 4200 from 3000 yesterday Plan start the patient on gentle IV hydration, check CPK daily and atorvastatin discontinue d Obstipation likely secondary to immobility and being on narcotics Plan continue on methylnaltrexone, give 1 dose of milk of magnesia and increase lactulose 3 times a day Leukocytosis trending downwards and likely secondary to streptococcal bacteremia Plan continue the patient on Rocephin IV daily through April 27 Major depression and PTSD Plan psych consulted who recommend to increase Effexor to 225 mg daily and prazosin added a t night for PTSD Acute pain postop involving the right above-knee amputation site pain better controlled plan continue on gabapentin 300 mg at night and 200 mg in the morning And continue on oxycodone as needed Diabetes mellitus insulin-dependent blood glucose reasonably controlled Plan continue the patient on Levemir 25 units twice daily, lispro 12 units with meals and i nsulin sliding scale Chronic systolic CHF well compensated with most recent ejection fraction of 35% Plan continue on metoprolol and Torsemide We will continue to hold losartan due to hyperkalemia Hyperkalemia likely secondary to losartan which has discontinued and potassium normalized Acute renal failure on chronic kidney disease stage IV resolved Anemia: Likely secondary anemia of chronic kidney disease and daily blood draws otherwise c omplete iron panel B12 folate are within normal limits and hemoglobin around 7.8 currently a symptomatic status post 1 unit of blood transfusion Plan continue patient on epogen and check CBC periodically Guaiac stools pending Insomnia Plan increase trazodone 100 mg at night Bilateral knee amputation: Patient will likely benefit from rehabilitation DVT prophylaxis on heparin MARK CARRANZA MD 04/22/2019 onversion Transactio n, Provider Unknown - 04/22/2019 6:01 AM PDT Nurse Progress Note by Abiola Jane RN at 04/22/19 0601 Author: Abiola Jane RN Service: (none) Author Type: Registered Nurse Filed: 04/22/19 0651 Date of Service: 04/22/19 06 Status: Addendum Chief Pharmacist: Abiola aJne RN (Registered Nurse) Related Notes: Original Note by Abiola Jane RN (Registered Nurse) filed at 04/22/19 06 02 VSS. Pt rested comfortably this shift. Prn oxy given X1. CPK elevated this AM 4,252. Troponins .079, .086, .088 End of shift audit complete Abiola Jane Mark England MD - 04/21/2019 1:33 PM PDTFormatting of this note might be different from the or iginal. Progress Notes by Mark Carranza MD at 04/21/19 2232 Author: Mark Carranza MD Service: Hospitalist Author Type: Physician Filed: 04/21/19 1894 Date of Service: 04/21/19 7723 Status: Addendum Chief Pharmacist: Mark Carranza MD (Physician) Related Notes: Original Note by Mark Carranza MD (Physician) filed at 04/21/19 2270 Hospitalist Progress Note Alondra Caballero 49 y.o. [phone] [id number] female [facility] Day: LOS: 8 days Patient Summary: 49-year-old female with past medical history of methamphetamine abus e stopped 8 years ago, diabetes mellitus type 2 insulin-dependent, chronic kidney disease st age IV, coronary disease status post cardiac stent to left circumflex, chronic total occlude d proximal LAD, CHF with ejection fraction 35 %, history of left BKA who was transferred fro [facility] with worsening swelling of the right leg, pain, right foot ulcer wi th purulent discharge, necrotic tissue found to have a white count of 50,000, lactic acid of 1.9, creatinine of 3.78, potassium of 6.5, sodium of 122 when patient started on vancomycin as well as Zosyn shortly after arrival patient develop septic shock and was given 3 L of no rmal saline bolus and started on levophed after which the patient was transferred to ICU for higher level of care. Dr. Cook from vascular surgery consulted patient underwent right above-knee amputation for g angrene of right lower extremity with sepsis. Patient blood culture grew group G strep to c occal and antibiotics narrowed down to Rocephin on 16 April IV through April 27. Patient had a echocardiogram which showed ejection fraction of 30 to 35% and pseudo-normal LV diastolic filling pattern grade 2 dysfunction and no evidence of endocarditis. SUBJECTIVE and Events Overnight: Patient seen and examine. No acute over night event. Patient had episode of chest pain las t night last for 45 minutes at left side of the chest resolved with nitro , denied any chest pain no no shortness of breath, complaining of increased flatulence and still constipated n o BM since admission. Patient is feeling depressed, anxious at times thinking what will hap pen after she goes home and worried about managing activities of daily living. Scheduled Medications allopurinol 300 mg Oral Daily aspirin 81 mg Oral Daily calcium carbonate 1,000 mg Oral BID cefTRIAXone 2 g Intravenous Q24H iqommykkdpfzwdb-kfeeljhxruylng-cjktqwgt 10 mL Swish & Spit 4x daily epoetin poppy 10,000 Units Subcutaneous Once per day on Tue gabapentin 300 mg Oral Nightly heparin 5,000 Units Subcutaneous 3 times per day insulin detemir 25 Units Subcutaneous BID insulin lispro (human) 0-10 Units Subcutaneous TID AC insulin lispro (human) 0-5 Units Subcutaneous Nightly insulin lispro (human) 12 Units Subcutaneous TID AC [START ON 04/22/2019] isosorbide mononitrate 30 mg Oral Daily lactulose 20 g Oral Daily methylnaltrexone 12 mg Subcutaneous Daily metoprolol 50 mg Oral Daily nystatin Topical BID polyethylene glycol 17 g Oral Daily prazosin 1 mg Oral Nightly sodium bicarbonate 1,300 mg Oral TID sodium chloride 10 mL Intravenous 2 times per day torsemide 20 mg Oral Daily traZODone 50 mg Oral Nightly venlafaxine 225 mg Oral Daily with breakfast Continuous Infusions dextrose PRN Medications acetaminophen OR acetaminophen, albuterol, dextrose, dextrose, dextrose, docusate sodiu m OR docusate, glucagon, glucagon, ondansetron OR ondansetron, oxyCODONE OR oxyC ODONE OR oxyCODONE, petrolatum, phenol, sodium chloride Allergy: Allergies Allergen Reactions Sulfacetamide Hives Sulfamethoxazole-Trimethoprim Hives Demerol [Meperidine] Rash Patient has tolerated fentanyl in house Latex Other (See Comments) Hives Methadone Other (See Comments) Stomach pains,shaky Sulfa Antibiotics Rash Vicodin [Hydrocodone-Acetaminophen] Rash OBJECTIVE Vital Signs: BP 106/51 (BP Location: Left upper arm) | Pulse 101 | Temp 98.3 F (36.8 C) (Oral) | Resp 20 | Ht 1.778 m (5' 10") | Wt 123.4 kg (272 lb) | LMP 10/04/2011 | SpO2 97% | BMI 39.03 kg/m Temp: [98.3 F (36.8 C)-98.8 F (37.1 C)] 98.3 F (36.8 C) (04/21 1347) BP: (98-113)/(51-57) 106/51 (04/21 1347) Heart Rate: [99-105] 101 (04/21 1347) Resp: [18-20] 20 (04/21 1347) SpO2: [93 %-97 %] 97 % (04/21 1347) I&O Detailed Table: Intake/Output Summary (Last 24 hours) at 04/21/19 1438 Last data filed at 04/21/19 0631 Gross per 24 hour Intake 1050 ml Output 1550 ml Net -500 ml Hemodynamics Last 24hrs: Examination: Constitutional: Alert and oriented to person, place, and time. Cardiovascular: Normal rate, regular rhythm, normal heart sounds and intact distal pulses. Exam reveals no gallop and no friction rub. No murmur heard. Pulmonary/Chest: Effort normal and breath sounds normal. No stridor. No respiratory distres s. no wheezes. no rales. exhibits no tenderness. Abdominal: Soft. Bowel sounds are normal. exhibits no distension and no mass. There is no t enderness. There is no rebound and no guarding. Musculoskeletal: Normal range of motion.exhibits no tenderness. exhibits left BKA and righ t AKA, surgical dressing in place at right AKA site. Neurological: Alert and oriented to person, place, and time. Has normal reflexes. Except left BKA and right AKA Skin: Skin is warm and dry. No rash noted. No erythema. No pallor. Psychiatric: Has a dysphoric mood and affect. Behavior is normal. Judgment normal. Laboratory: Glucose: Results Procedure Component Value Units Date/Time Troponin I [[id number]] (Abnormal) Collected: 04/21/19 1242 Specimen: Blood Updated: 04/21/19 1330 TROPONIN I 0.079 (H) ng/mL Prepare RBC (type and crossmatch) (Blood Bank) [[id number]] Collected: 04/21/19 1040 Specimen: Blood Updated: 04/21/19 1320 ARM BAND NUMBER [id number] ABO/RH(D) O POSITIVE ANTIBODY SCREEN NEGATIVE UNIT NUMBER [id number] BLOOD COMPONENT TYPE LEUKODEPLETED PC UNIT DIVISION 00 STATUS OF UNIT ISSUED TRANSFUSION STATUS OK TO TRANSFUSE CROSSMATCH RESULT -- COMPATIBLE Testing performed at [facility];[address] [place] [address];[place] [address] Basic metabolic panel [[id number]] (Abnormal) Collected: 04/21/19539 Specimen: Blood Updated: 04/21/19734 SODIUM 135 mmol/L POTASSIUM 4.6 mmol/L CHLORIDE 100 mmol/L CO2 24 mmol/L ANION GAP AGAP 16 mmol/L GLUCOSE 110 (H) mg/dL BUN 55 (H) mg/dL CREATININE 1.7 (H) mg/dL BUN/CREAT 32 CALCIUM 7.9 (L) mg/dL EGFR 32 (L) mL/min/1.73m2 Magnesium [[id number]] (Abnormal) Collected: 04/21/19539 Specimen: Blood Updated: 04/21/19734 MAGNESIUM 1.6 (L) mg/dL Phosphorus [[id number]] Collected: 04/21/19539 Specimen: Blood Updated: 04/21/19734 PHOSPHORUS 4.5 mg/dL CBC w/auto diff (reflex to manual) [[id number]] (Abnormal) Collected: 04/21/19539 Specimen: Blood Updated: 04/21/19723 WBC 12.32 (H) K/uL RBC 2.53 (L) M/uL HGB 7.3 (L) g/dL HCT 22.6 (L) % MCV 89.0 fl MCH 29.0 pg MCHC 32.6 g/dL RDW SD 55.6 (H) fl PLT 312 K/uL MPV 8.7 fl DIFF TYPE MANUAL Neutrophils Manual 61 % Bands 8 % METAMYELOCYTES 4 % MYELOCYTES 1 % Lymphocytes Manual 19 % Monocytes Manual 6 % Eosinophils Manual 1 % Neutrophils Absolute 7.52 (H) K/uL Bands Manual 0.99 (H) K/uL Metamyelocytes Absolute 0.49 (H) K/uL Myelocytes Absolute 0.12 (H) K/uL Lymphocytes Absolute 2.34 K/uL Monocytes Absolute 0.74 K/uL Eosinophils Absolute 0.12 K/uL MORPHOLOGY 1+ Troponin I [[id number]] (Abnormal) Collected: 04/21/19539 Specimen: Blood Updated: 04/21/19719 TROPONIN I 0.091 (H) ng/mL CK MB [[id number]] (Abnormal) Collected: 04/21/19539 Updated: 04/21/19719 MMB 6.3 (H) ng/mL CK-MB Index 0.2 CPK [[id number]] (Abnormal) Collected: 04/21/19 0540 Specimen: Blood Updated: 04/21/19 0720 CPK 3,048 (H) U/L Blood Culture Set 1 [[id number]] Collected: 04/15/19 1258 Specimen: Blood from Blood Line Draw Updated: 04/21/19 0603 Specimen Description BLOOD, LINE DRAW SPECIAL REQUESTS ART LINE HAND CULTURE NO GROWTH 6 DAYS Blood Culture Set 2 [[id number]] Collected: 04/15/19 1255 Specimen: Blood from Blood Line Draw Updated: 04/21/19 06 Specimen Description BLOOD, LINE DRAW SPECIAL REQUESTS art line CULTURE NO GROWTH 6 DAYS RPR Titer [[id number]] Collected: 04/17/19 1952 Specimen: Blood Updated: 04/21/19 0509 RPR Titer Non Reactive Troponin I [[id number]] (Abnormal) Collected: 04/21/19 0015 Specimen: Blood Updated: 04/21/19 0045 TROPONIN I 0.074 (H) ng/mL POCT glucose [[id number]] (Abnormal) Collected: 04/20/19 2153 Updated: 04/20/19 2156 GLUCOSE,POC SCREEN 179 (H) mg/dL POCT glucose [[id number]] (Abnormal) Collected: 04/20/19 1615 Updated: 04/20/19 1629 GLUCOSE,POC SCREEN 176 (H) mg/dL Sodium [[id number]] (Abnormal) Collected: 04/20/19 1451 Specimen: Blood Updated: 04/20/19 1511 SODIUM 130 (L) mmol/L Sputum culture [[id number]] Collected: 04/18/19 1448 Specimen: Sputum from Sputum Updated: 04/20/19 1354 Specimen Description SPUTUM GRAM STAIN GREATER THAN 10 WBCS/LPF GRAM STAIN LESS THAN 10 SEC/LPF GRAM STAIN NO ORGANISMS SEEN CULTURE 1+ NORMAL UPPER RESPIRATORY RADHA Urine culture [[id number]] Collected: 04/19/19 1051 Specimen: Urine from Urine, Clean Catch Updated: 04/20/19 1225 Specimen Description URINE,CLEAN CATCH CULTURE NO GROWTH POCT glucose [[id number]] (Abnormal) Collected: 04/20/19 1210 Updated: 04/20/19 1222 GLUCOSE,POC SCREEN 134 (H) mg/dL Sodium [[id number]] (Abnormal) Collected: 04/20/19 1101 Specimen: Blood Updated: 04/20/19 1121 SODIUM 133 (L) mmol/L POCT glucose [[id number]] (Abnormal) Collected: 04/20/19 0559 Updated: 04/20/19 0833 GLUCOSE,POC SCREEN 131 (H) mg/dL CBC w/auto diff (reflex to manual) [[id number]] (Abnormal) Collected: 04/20/19 0355 Specimen: Blood Updated: 04/20/19 0511 WBC 16.83 (H) K/uL RBC 2.63 (L) M/uL HGB 7.7 (L) g/dL HCT 23.3 (L) % MCV 88.5 fl MCH 29.2 pg MCHC 33.0 g/dL RDW SD 53.4 (H) fl PLT 297 K/uL MPV 8.6 fl DIFF TYPE MANUAL Neutrophils Manual 66 % Bands 5 % METAMYELOCYTES 5 % MYELOCYTES 3 % Lymphocytes Manual 14 % Monocytes Manual 5 % Eosinophils Manual 2 % Neutrophils Absolute 11.11 (H) K/uL Bands Manual 0.84 (H) K/uL Metamyelocytes Absolute 0.84 (H) K/uL Myelocytes Absolute 0.50 (H) K/uL Lymphocytes Absolute 2.36 K/uL Monocytes Absolute 0.84 (H) K/uL Eosinophils Absolute 0.34 K/uL Platelet Estimate ADEQUATE MORPHOLOGY PLATELET ANISOCYTOSIS Basic metabolic panel [[id number]] (Abnormal) Collected: 04/20/19354 Specimen: Blood Updated: 04/20/19 0502 SODIUM 131 (L) mmol/L POTASSIUM 5.2 (H) mmol/L CHLORIDE 99 mmol/L CO2 26 mmol/L ANION GAP AGAP 11 mmol/L GLUCOSE 142 (H) mg/dL BUN 52 (H) mg/dL CREATININE 1.7 (H) mg/dL BUN/CREAT 31 CALCIUM 7.5 (L) mg/dL EGFR 32 (L) mL/min/1.73m2 POCT glucose [[id number]] (Abnormal) Collected: 04/19/192109 Updated: 04/19/192115 GLUCOSE,POC SCREEN 174 (H) mg/dL Vitamin D 25 hydroxy [[id number]] Collected: 04/17/191951 Specimen: Blood Updated: 04/19/19 174 VITAMIN D,25 HYDROXY 50 ng/mL TSH [[id number]] (Abnormal) Collected: 04/17/19 1952 Specimen: Blood Updated: 04/19/19 1706 TSH 9.360 (H) uIU/mL Vit D Dihydroxy 1,25 [[id number]] Collected: 04/19/19 1626 Updated: 04/19/19 1641 POCT glucose [[id number]] (Abnormal) Collected: 04/19/19 1630 Updated: 04/19/19 1637 GLUCOSE,POC SCREEN 116 (H) mg/dL Sodium [[id number]] (Abnormal) Collected: 04/19/19 1349 Specimen: Blood Updated: 04/19/19 1421 SODIUM 132 (L) mmol/L Urinalysis Microscopic Only [[id number]] (Abnormal) Collected: 04/19/19 1042 Specimen: Urine from Urine, Catheter Updated: 04/19/19 1324 WBC 6-10 /hpf RBC 3-5 /hpf EPITHELIAL 6-10 /lpf BACTERIA 1+ (A) Mucus, UA 1+ HCV RNA quant by PCR [[id number]] Collected: 04/16/19 1458 Specimen: Blood Updated: 04/19/19 1309 HCV RNA VIRAL LOAD HCV Not Detected IU/mL TEST INFORMATION (See Below) POCT glucose [[id number]] (Abnormal) Collected: 04/19/19 1154 Updated: 04/19/19 1158 GLUCOSE,POC SCREEN 150 (H) mg/dL Hepatitis B Virus DNA Quant PCR [[id number]] Collected: 04/16/19 1458 Updated: 04/19/19 1110 HBV DNA VIRAL LOAD UPTCAL LOG10 IU/ML HB DNA VIRAL LOAD IU/mL HBV DNA not detected IU/mL COMMENT (See Below) Sodium [[id number]] (Abnormal) Collected: 04/19/19 0932 Specimen: Blood Updated: 04/19/19 1004 SODIUM 131 (L) mmol/L POCT glucose [[id number]] (Abnormal) Collected: 04/19/19 0525 Updated: 04/19/19 0837 GLUCOSE,POC SCREEN 112 (H) mg/dL POCT glucose [[id number]] (Abnormal) Collected: 04/19/19 0817 Updated: 04/19/19 0834 GLUCOSE,POC SCREEN 138 (H) mg/dL Blood Culture Set 1 [[id number]] Collected: 04/13/191921 Specimen: Blood from Blood Line Draw Updated: 04/19/19609 Specimen Description BLOOD, LINE DRAW SPECIAL REQUESTS CENTRAL CULTURE NO GROWTH 6 DAYS CBC w/auto diff (reflex to manual) [[id number]] (Abnormal) Collected: 04/19/19144 Specimen: Blood Updated: 04/19/19 0440 WBC 27.78 (H) K/uL RBC 3.07 (L) M/uL HGB 8.8 (L) g/dL HCT 26.9 (L) % MCV 87.8 fl MCH 28.6 pg MCHC 32.6 g/dL RDW SD 52.5 fl PLT 309 K/uL MPV 8.8 fl DIFF TYPE MANUAL Neutrophils Manual 54 % Bands 8 % METAMYELOCYTES 9 % MYELOCYTES 7 % Lymphocytes Manual 18 % Monocytes Manual 3 % Eosinophils Manual 1 % Neutrophils Absolute 15.01 (H) K/uL Bands Manual 2.22 (H) K/uL Metamyelocytes Absolute 2.50 (H) K/uL Myelocytes Absolute 1.94 (H) K/uL Lymphocytes Absolute 5.00 (H) K/uL Monocytes Absolute 0.83 (H) K/uL Eosinophils Absolute 0.28 K/uL Platelet Estimate INCREASED MORPHOLOGY RBC AND PLT MORPHOLOGY APPEAR NORMAL Basic metabolic panel [[id number]] (Abnormal) Collected: 04/19/19144 Specimen: Blood Updated: 04/19/19432 SODIUM 132 (L) mmol/L POTASSIUM 5.2 (H) mmol/L CHLORIDE 99 mmol/L CO2 25 mmol/L ANION GAP AGAP 13 mmol/L GLUCOSE 74 mg/dL BUN 57 (H) mg/dL CREATININE 1.8 (H) mg/dL BUN/CREAT 32 CALCIUM 7.8 (L) mg/dL EGFR 30 (L) mL/min/1.73m2 POCT glucose [[id number]] (Abnormal) Collected: 04/18/192057 Updated: 04/18/192101 GLUCOSE,POC SCREEN 156 (H) mg/dL POCT glucose [[id number]] Collected: 04/18/19 1610 Updated: 04/18/192101 GLUCOSE,POC SCREEN 83 mg/dL POCT glucose [[id number]] (Abnormal) Collected: 04/18/19 1200 Updated: 04/18/192100 GLUCOSE,POC SCREEN 102 (H) mg/dL Sodium [[id number]] (Abnormal) Collected: 04/18/191955 Specimen: Blood Updated: 04/18/192051 SODIUM 130 (L) mmol/L Basic metabolic panel [[id number]] (Abnormal) Collected: 04/18/191717 Specimen: Blood Updated: 04/18/191955 SODIUM 130 (L) mmol/L POTASSIUM 5.7 (H) mmol/L CHLORIDE 99 mmol/L CO2 23 mmol/L ANION GAP AGAP 14 mmol/L GLUCOSE 84 mg/dL BUN 54 (H) mg/dL CREATININE 1.7 (H) mg/dL BUN/CREAT 32 CALCIUM 8.0 (L) mg/dL EGFR 32 (L) mL/min/1.73m2 Sodium [[id number]] (Abnormal) Collected: 04/18/19 140 Specimen: Blood Updated: 04/18/19 1444 SODIUM 134 (L) mmol/L CBC: Lab Results Component Value Date WBC 12.32 (H) 04/21/2019 RBC 2.53 (L) 04/21/2019 HGB 7.3 (L) 04/21/2019 HCT 22.6 (L) 04/21/2019 MCV 89.0 04/21/2019 MCH 29.0 04/21/2019 MCHC 32.6 04/21/2019 RDW 55.6 (H) 04/21/2019 PLT 312 04/21/2019 MPV 8.7 04/21/2019 DIFFTYPE MANUAL 04/21/2019 CMP: Lab Results Component Value Date NA 135 04/21/2019 K 4.6 04/21/2019 CL 100 04/21/2019 CO2 24 04/21/2019 ANIONGAP 16 04/21/2019 GLUF 110 (H) 04/21/2019 BUN 55 (H) 04/21/2019 CREATININE 1.7 (H) 04/21/2019 CREATININE 3.11 (A) 11/17/2017 BCR 32 04/21/2019 CA 7.9 (L) 04/21/2019 CA 9.4 07/01/2017 PROT 5.7 (L) 04/13/2019 ALB 2.6 (L) 04/13/2019 GLOB 3.1 04/13/2019 BILITOT 0.9 04/13/2019 ALP 291 (H) 04/13/2019 AST 50 (H) 04/13/2019 ALT 32 04/13/2019 EGFR 32 (L) 04/21/2019 Magnesium: Lab Results Component Value Date MG 1.6 (L) 04/21/2019 Phosphorus: Lab Results Component Value Date PHOS 4.5 04/21/2019 PT/INR: Lab Results Component Value Date INR 2.2 04/14/2019 Last 3 Troponin: Lab Results Component Value Date TROPONINI 0.079 (H) 04/21/2019 TROPONINI 0.091 (H) 04/21/2019 TROPONINI 0.074 (H) 04/21/2019 ABG: Lab Results Component Value Date POCPH 7.368 04/14/2019 POCPCO 36 04/14/2019 POCPO2 105 04/14/2019 POCHCO 21 (L) 04/14/2019 POCTCO2 22 (L) 04/14/2019 POCBD 5 (H) 04/14/2019 POCSO2 98 04/14/2019 POCCMT Modified Chin Test passed 04/14/2019 X-ray Chest 1 View Result Date: 04/21/2019 CHEST ONE VIEW CLINICAL INFORMATION: Chest pain. COMPARISON: XR CHEST 1 VIEW (04/18/2019); X R CHEST 1 VIEW (04/13/2019); XR CHEST 1 VIEW (01/05/2016); XR CHEST 1 VIEW (01/01/2016); XR JESU ST 1 VIEW (12/30/2015); CT CHEST W CONTRAST (10/17/2011); FINDINGS: Left chest single lead pre sternal AICD. Right PICC line tip terminates near the atrial caval junction. Hypoventilator y changes. No focal consolidation, pneumothorax or pleural effusion. Borderline cardiomega ly. No acute cardiopulmonary disease. Lungs clear. Signed by: Emy Garcia Zachary Sign Date/ Time: 04/21/2019 1:01 AM Xr Chest 1 View Result Date: 04/18/2019 CHEST ONE VIEW CLINICAL INFORMATION: Pneumonia and sepsis. COMPARISON: XR CHEST 1 VIEW (03/20); ECHO OUTSIDE INTERPRETATION (03/24/2017); XR CHEST 1 VIEW (01/05/2016); FINDINGS: Prev ious left IJ catheter is been removed. No pneumothorax. Single lead AICD with battery pack over the left chest with lead extending vertically into the precordial region. Resolution of previous pulmonary venous congestion and interstitial edema. Subtle residual effusions a re suspected. Heart size is normal. 1. Resolution previous CHF and pulmonary edema perhaps with subtle residual effusions. Sign ed by: Emy Rivers Shawn Sign Date/Time: 04/18/2019 1:27 PM PROBLEM LIST Principal Problem: Septic shock (HCC) Active Problems: Morbid obesity (HCC) CHF (congestive heart failure) ([facility]) CKD (chronic kidney disease), stage IV Metabolic acidosis ICD (implantable cardioverter-defibrillator), single, 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, with long-term current use of insulin (HCC) Ischemic cardiomyopathy Sepsis (HCC) Gangrene of extremity ([facility]) Hyperkalemia Lactic acidosis Hyponatremia Group G streptococcal infection Skin ulcer of finger, limited to breakdown of skin ([facility]) Hyperkalemia Chest pain Non-traumatic rhabdomyolysis ASSESSMENT & PLAN Septic shock resolved and was likely secondary to right leg wet gangrene and streptococcal bacteremia secondary to it status post right above-knee amputation by Dr. Cook Plan continue the patient on Rocephin IV daily through April 27 PICC line placed Appreciate infectious disease input Chest pain rule out underlying occlusive coronary artery disease and troponin minimally shoshana vated not consistent with acute coronary syndrome Plan continue the patient on aspirin,, metoprolol and patient scheduled for nuclear cardiac stress yesterday in the morning Rhabdomyolysis likely secondary to being on high doses of statins Plan discontinue atorvastatin, check CPK daily and I would avoid IV hydration as patient at increased risk of pulmonary edema Obstipation likely secondary to immobility and being on narcotics Plan give 1 dose of methylnaltrexone and lactulose daily Leukocytosis trending downwards and likely secondary to streptococcal bacteremia Plan continue the patient on Rocephin IV daily through April 27 Major depression and PTSD Plan psych consulted who recommend to increase Effexor to 225 mg daily and prazosin added a t night for PTSD Acute pain postop involving the right above-knee amputation site pain better controlled plan continue on gabapentin 300 mg at night and 200 mg in the morning And continue on oxycodone as needed Diabetes mellitus insulin-dependent blood glucose reasonably controlled Plan continue the patient on Levemir 25 units twice daily, lispro 12 units with meals and i nsulin sliding scale Chronic systolic CHF well compensated with most recent ejection fraction of 35% Plan continue on metoprolol and Torsemide We will continue to hold losartan due to hyperkalemia Hyperkalemia likely secondary to losartan which has discontinued and potassium stable on 5. 2 Acute renal failure on chronic kidney disease stage IV resolved Anemia: Likely secondary anemia of chronic kidney disease and daily blood draws otherwise c omplete iron panel B12 folate are within normal limits and hemoglobin dropping down below 8 Plan continue patient on epogen, give 1 unit of blood transfusion and check CBC periodicall y Guaiac stools ordered Insomnia Plan continue on trazodone 50 mg at night Bilateral knee amputation: Patient will likely benefit from rehabilitation DVT prophylaxis on heparin MARK CARRANZA MD 04/21/2019 onversion Transactio n, Provider Unknown - 04/21/2019 11:30 AM PDT Case Management by Maye Jules RN at 04/21/19 5190 Author: Maye Jules RN Service: (none) Author Type: Registered Nurse Filed: 04/21/19 8753 Date of Service: 04/21/191129 Status: Signed Chief Pharmacist: Maye Jules RN (Registered Nurse) CM had extensive conversation with pt RE d/c plan. She is not wanting to go to [facility] in [facility]-she prefers to [facility] to [facility]. Carranza stated she isn't ready for [facility] sending referral to . 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 Will leave in handoff for Tuesday CM. Pt also inquiring about electric WC and she asked Dr. Carranza for an RX-Dr. Carranza stated he w as OK writing one. Will leave sticky note to remind him. Maye Jules onver jessica Transaction, Provider Unknown - 04/21/2019 6:15 AM PDT Nurse Progress Note by Abiola Jane RN at 04/21/19 0615 Author: Abiola Jane RN Service: (none) Author Type: Registered Nurse Filed: 04/21/19 0643 Date of Service: 04/21/19614 Status: Addendum Chief Pharmacist: Abiola Jane RN (Registered Nurse) Related Notes: Original Note by Abiola Jane RN (Registered Nurse) filed at 04/21/19 06 15 Pt complained of 8/10 chest pain tonight and mentioned she had been having on and off heart burn throughout the day and passing a lot of gas. MD Doshi notified and stat CXR, EKG, trop oninX3, and aspirin ordered. MD Ordoñez notified by cross coverage and ordered GI cocktail. Pt states pain is tapering down . Troponin result elevated to .074. Small tear noticed on pt's R buttock, pup placed, unable to take a picture d/t pt having di fficulty keeping on side. Pt states she has not had a bowel movement since admission End of shift audit complete Abiola Jane Mark England MD - 04/20/2019 6:12 PM PDTFormatting of this note might be different from the or iginal. Progress Notes by Mark Carranza MD at 04/20/191811 Author: Mark Carranza MD Service: Hospitalist Author Type: Physician Filed: 04/20/191818 Date of Service: 04/20/191811 Status: Addendum Chief Pharmacist: Mark Carranza MD (Physician) Related Notes: Original Note by Mark Carranza MD (Physician) filed at 04/20/191813 Hospitalist Progress Note Alondrabalwinder Shane Federico 49 y.o. [phone] [id number] female [facility] Day: LOS: 7 days Patient Summary: 49-year-old female with past medical history of methamphetamine abus e stopped 8 years ago, diabetes mellitus type 2 insulin-dependent, chronic kidney disease st age IV, coronary disease status post cardiac stent to left circumflex, chronic total occlude d proximal LAD, CHF with ejection fraction 35 %, history of left BKA who was transferred [facility] with worsening swelling of the right leg, pain, right foot ulcer wi th purulent discharge, necrotic tissue found to have a white count of 50,000, lactic acid of 1.9, creatinine of 3.78, potassium of 6.5, sodium of 122 when patient started on vancomycin as well as Zosyn shortly after arrival patient develop septic shock and was given 3 L of no rmal saline bolus and started on levophed after which the patient was transferred to ICU for higher level of care. Dr. Cook from vascular surgery consulted patient underwent right above-knee amputation for g angrene of right lower extremity with sepsis. Patient blood culture grew group G strep to c occal and antibiotics narrowed down to Rocephin on 16 April IV through April 27. Patient had a echocardiogram which showed ejection fraction of 30 to 35% and pseudo-normal LV diastolic filling pattern grade 2 dysfunction and no evidence of endocarditis. SUBJECTIVE and Events Overnight: Patient seen and examine. No acute over night event. Patient planing of sores in the mouth and feeling better since she was started on [place] mouthwash. Patient has difficulty sleepin g at night requesting sleeping medication. Patient pain in the right leg is getting better and was still complaining of 3 out of 10 pain in the right above-knee amputation site . She is complaining of constipation and no BM from last 3 4 days at least. Scheduled Medications allopurinol 300 mg Oral Daily aspirin 81 mg Oral Daily atorvastatin 80 mg Oral Daily cefTRIAXone 2 g Intravenous Q24H vjusjasfriouipv-rkwfkdshacfbji-ttsdzzno 10 mL Swish & Spit 4x daily epoetin poppy 10,000 Units Subcutaneous Once per day on Tue gabapentin 300 mg Oral Nightly heparin 5,000 Units Subcutaneous 3 times per day insulin detemir 25 Units Subcutaneous BID insulin lispro (human) 0-10 Units Subcutaneous TID AC insulin lispro (human) 0-5 Units Subcutaneous Nightly insulin lispro (human) 12 Units Subcutaneous TID AC isosorbide dinitrate 5 mg Oral BID lactulose 20 g Oral Daily metoprolol 50 mg Oral Daily nystatin Topical BID polyethylene glycol 17 g Oral Daily prazosin 1 mg Oral Nightly sodium bicarbonate 1,300 mg Oral TID sodium chloride 10 mL Intravenous 2 times per day torsemide 20 mg Oral Daily traZODone 50 mg Oral Nightly venlafaxine 225 mg Oral Daily with breakfast Continuous Infusions dextrose PRN Medications acetaminophen OR acetaminophen, albuterol, dextrose, dextrose, dextrose, docusate sodiu m OR docusate, glucagon, glucagon, ondansetron OR ondansetron, oxyCODONE OR oxyC ODONE OR oxyCODONE, petrolatum, sodium chloride Allergy: Allergies Allergen Reactions Sulfacetamide Hives Sulfamethoxazole-Trimethoprim Hives Demerol [Meperidine] Rash Patient has tolerated fentanyl in house Latex Other (See Comments) Hives Methadone Other (See Comments) Stomach pains,shaky Sulfa Antibiotics Rash Vicodin [Hydrocodone-Acetaminophen] Rash OBJECTIVE Vital Signs: BP 106/51 (BP Location: Left upper arm) | Pulse 99 | Temp 98.7 F (37.1 C) (Oral) | R bean 19 | Ht 1.778 m (5' 10") | Wt 123.4 kg (272 lb) | LMP 10/04/2011 | SpO2 95% | BMI 3 9.03 kg/m Temp: [98.5 F (36.9 C)-98.9 F (37.2 C)] 98.7 F (37.1 C) (04/20 1616) BP: (93-118)/(51-57) 106/51 (04/20 1616) Heart Rate: [96-104] 99 (04/20 1616) Resp: [19-20] 19 (04/20 1616) SpO2: [93 %-98 %] 95 % (04/20 1616) I&O Detailed Table: Intake/Output Summary (Last 24 hours) at 04/20/19 1812 Last data filed at 04/20/19 1808 Gross per 24 hour Intake 1425 ml Output 2400 ml Net -975 ml Hemodynamics Last 24hrs: Examination: Constitutional: Alert and oriented to person, place, and time. Cardiovascular: Normal rate, regular rhythm, normal heart sounds and intact distal pulses. Exam reveals no gallop and no friction rub. No murmur heard. Pulmonary/Chest: Effort normal and breath sounds normal. No stridor. No respiratory distres s. no wheezes. no rales. exhibits no tenderness. Abdominal: Soft. Bowel sounds are normal. exhibits no distension and no mass. There is no t enderness. There is no rebound and no guarding. Musculoskeletal: Normal range of motion.exhibits no tenderness. exhibits left BKA and righ t AKA, surgical dressing in place at right AKA site. Neurological: Alert and oriented to person, place, and time. Has normal reflexes. Except left BKA and right AKA Skin: Skin is warm and dry. No rash noted. No erythema. No pallor. Psychiatric: Has a dysphoric mood and affect. Behavior is normal. Judgment normal. Laboratory: Glucose: Results Procedure Component Value Units Date/Time POCT glucose [[id number]] (Abnormal) Collected: 04/20/19 1615 Updated: 04/20/19 1629 GLUCOSE,POC SCREEN 176 (H) mg/dL Sodium [[id number]] (Abnormal) Collected: 04/20/19 1451 Specimen: Blood Updated: 04/20/19 1511 SODIUM 130 (L) mmol/L Sputum culture [[id number]] Collected: 04/18/19 1448 Specimen: Sputum from Sputum Updated: 04/20/19 1354 Specimen Description SPUTUM GRAM STAIN GREATER THAN 10 WBCS/LPF GRAM STAIN LESS THAN 10 SEC/LPF GRAM STAIN NO ORGANISMS SEEN CULTURE 1+ NORMAL UPPER RESPIRATORY RADHA Urine culture [[id number]] Collected: 04/19/19 1051 Specimen: Urine from Urine, Clean Catch Updated: 04/20/19 1225 Specimen Description URINE,CLEAN CATCH CULTURE NO GROWTH POCT glucose [[id number]] (Abnormal) Collected: 04/20/19 1210 Updated: 04/20/19 1222 GLUCOSE,POC SCREEN 134 (H) mg/dL Sodium [[id number]] (Abnormal) Collected: 04/20/19 1101 Specimen: Blood Updated: 04/20/19 1121 SODIUM 133 (L) mmol/L POCT glucose [[id number]] (Abnormal) Collected: 04/20/19 0559 Updated: 04/20/19 0833 GLUCOSE,POC SCREEN 131 (H) mg/dL CBC w/auto diff (reflex to manual) [[id number]] (Abnormal) Collected: 04/20/19 0355 Specimen: Blood Updated: 04/20/19 0511 WBC 16.83 (H) K/uL RBC 2.63 (L) M/uL HGB 7.7 (L) g/dL HCT 23.3 (L) % MCV 88.5 fl MCH 29.2 pg MCHC 33.0 g/dL RDW SD 53.4 (H) fl PLT 297 K/uL MPV 8.6 fl DIFF TYPE MANUAL Neutrophils Manual 66 % Bands 5 % METAMYELOCYTES 5 % MYELOCYTES 3 % Lymphocytes Manual 14 % Monocytes Manual 5 % Eosinophils Manual 2 % Neutrophils Absolute 11.11 (H) K/uL Bands Manual 0.84 (H) K/uL Metamyelocytes Absolute 0.84 (H) K/uL Myelocytes Absolute 0.50 (H) K/uL Lymphocytes Absolute 2.36 K/uL Monocytes Absolute 0.84 (H) K/uL Eosinophils Absolute 0.34 K/uL Platelet Estimate ADEQUATE MORPHOLOGY PLATELET ANISOCYTOSIS Basic metabolic panel [[id number]] (Abnormal) Collected: 04/20/19 0355 Specimen: Blood Updated: 04/20/19 0502 SODIUM 131 (L) mmol/L POTASSIUM 5.2 (H) mmol/L CHLORIDE 99 mmol/L CO2 26 mmol/L ANION GAP AGAP 11 mmol/L GLUCOSE 142 (H) mg/dL BUN 52 (H) mg/dL CREATININE 1.7 (H) mg/dL BUN/CREAT 31 CALCIUM 7.5 (L) mg/dL EGFR 32 (L) mL/min/1.73m2 POCT glucose [[id number]] (Abnormal) Collected: 04/19/192109 Updated: 04/19/192115 GLUCOSE,POC SCREEN 174 (H) mg/dL Vitamin D 25 hydroxy [[id number]] Collected: 04/17/191951 Specimen: Blood Updated: 04/19/19 1740 VITAMIN D,25 HYDROXY 50 ng/mL TSH [[id number]] (Abnormal) Collected: 04/17/191951 Specimen: Blood Updated: 04/19/19 1706 TSH 9.360 (H) uIU/mL Vit D Dihydroxy 1,25 [[id number]] Collected: 04/19/19 1626 Updated: 04/19/19 1641 POCT glucose [[id number]] (Abnormal) Collected: 04/19/19 163 Updated: 04/19/19 1637 GLUCOSE,POC SCREEN 116 (H) mg/dL RPR Titer [[id number]] Collected: 04/17/191951 Specimen: Blood Updated: 04/19/19 1514 Sodium [[id number]] (Abnormal) Collected: 04/19/19 1349 Specimen: Blood Updated: 04/19/19 1421 SODIUM 132 (L) mmol/L Urinalysis Microscopic Only [[id number]] (Abnormal) Collected: 04/19/19 1042 Specimen: Urine from Urine, Catheter Updated: 04/19/19 1324 WBC 6-10 /hpf RBC 3-5 /hpf EPITHELIAL 6-10 /lpf BACTERIA 1+ (A) Mucus, UA 1+ HCV RNA quant by PCR [[id number]] Collected: 04/16/19 1458 Specimen: Blood Updated: 04/19/19 1309 HCV RNA VIRAL LOAD HCV Not Detected IU/mL TEST INFORMATION (See Below) POCT glucose [[id number]] (Abnormal) Collected: 04/19/19 1154 Updated: 04/19/19 1158 GLUCOSE,POC SCREEN 150 (H) mg/dL Hepatitis B Virus DNA Quant PCR [[id number]] Collected: 04/16/19 1458 Updated: 04/19/19 1110 HBV DNA VIRAL LOAD UPTCAL LOG10 IU/ML HB DNA VIRAL LOAD IU/mL HBV DNA not detected IU/mL COMMENT (See Below) Sodium [[id number]] (Abnormal) Collected: 04/19/19 0932 Specimen: Blood Updated: 04/19/19 1004 SODIUM 131 (L) mmol/L POCT glucose [[id number]] (Abnormal) Collected: 04/19/19 0525 Updated: 04/19/19 0837 GLUCOSE,POC SCREEN 112 (H) mg/dL POCT glucose [[id number]] (Abnormal) Collected: 04/19/19 0817 Updated: 04/19/19 0834 GLUCOSE,POC SCREEN 138 (H) mg/dL Blood Culture Set 1 [[id number]] Collected: 04/13/19 192 Specimen: Blood from Blood Line Draw Updated: 04/19/19 0610 Specimen Description BLOOD, LINE DRAW SPECIAL REQUESTS CENTRAL CULTURE NO GROWTH 6 DAYS CBC w/auto diff (reflex to manual) [[id number]] (Abnormal) Collected: 04/19/19 0145 Specimen: Blood Updated: 04/19/19 0440 WBC 27.78 (H) K/uL RBC 3.07 (L) M/uL HGB 8.8 (L) g/dL HCT 26.9 (L) % MCV 87.8 fl MCH 28.6 pg MCHC 32.6 g/dL RDW SD 52.5 fl PLT 309 K/uL MPV 8.8 fl DIFF TYPE MANUAL Neutrophils Manual 54 % Bands 8 % METAMYELOCYTES 9 % MYELOCYTES 7 % Lymphocytes Manual 18 % Monocytes Manual 3 % Eosinophils Manual 1 % Neutrophils Absolute 15.01 (H) K/uL Bands Manual 2.22 (H) K/uL Metamyelocytes Absolute 2.50 (H) K/uL Myelocytes Absolute 1.94 (H) K/uL Lymphocytes Absolute 5.00 (H) K/uL Monocytes Absolute 0.83 (H) K/uL Eosinophils Absolute 0.28 K/uL Platelet Estimate INCREASED MORPHOLOGY RBC AND PLT MORPHOLOGY APPEAR NORMAL Basic metabolic panel [[id number]] (Abnormal) Collected: 04/19/19 014 Specimen: Blood Updated: 04/19/19432 SODIUM 132 (L) mmol/L POTASSIUM 5.2 (H) mmol/L CHLORIDE 99 mmol/L CO2 25 mmol/L ANION GAP AGAP 13 mmol/L GLUCOSE 74 mg/dL BUN 57 (H) mg/dL CREATININE 1.8 (H) mg/dL BUN/CREAT 32 CALCIUM 7.8 (L) mg/dL EGFR 30 (L) mL/min/1.73m2 POCT glucose [[id number]] (Abnormal) Collected: 04/18/192057 Updated: 04/18/192101 GLUCOSE,POC SCREEN 156 (H) mg/dL POCT glucose [[id number]] Collected: 04/18/19 1610 Updated: 04/18/192101 GLUCOSE,POC SCREEN 83 mg/dL POCT glucose [[id number]] (Abnormal) Collected: 04/18/19 1200 Updated: 04/18/19 210 GLUCOSE,POC SCREEN 102 (H) mg/dL Sodium [[id number]] (Abnormal) Collected: 04/18/191955 Specimen: Blood Updated: 04/18/192051 SODIUM 130 (L) mmol/L Basic metabolic panel [[id number]] (Abnormal) Collected: 04/18/191717 Specimen: Blood Updated: 04/18/191955 SODIUM 130 (L) mmol/L POTASSIUM 5.7 (H) mmol/L CHLORIDE 99 mmol/L CO2 23 mmol/L ANION GAP AGAP 14 mmol/L GLUCOSE 84 mg/dL BUN 54 (H) mg/dL CREATININE 1.7 (H) mg/dL BUN/CREAT 32 CALCIUM 8.0 (L) mg/dL EGFR 32 (L) mL/min/1.73m2 Sodium [[id number]] (Abnormal) Collected: 04/18/19 1409 Specimen: Blood Updated: 04/18/19 1444 SODIUM 134 (L) mmol/L POCT glucose [[id number]] (Abnormal) Collected: 04/18/1943 Updated: 04/18/19 1118 GLUCOSE,POC SCREEN 167 (H) mg/dL Sodium [[id number]] (Abnormal) Collected: 04/18/1915 Specimen: Blood Updated: 04/18/1945 SODIUM 131 (L) mmol/L POCT glucose [[id number]] (Abnormal) Collected: 04/17/192006 Updated: 04/18/19820 GLUCOSE,POC SCREEN 140 (H) mg/dL Vitamin B12 [[id number]] (Abnormal) Collected: 04/17/191951 Specimen: Blood Updated: 04/18/1952 VITAMIN B12 >2,000 (H) pg/mL Folate [[id number]] Collected: 04/17/191951 Specimen: Blood Updated: 04/18/19527 FOLATE 13.6 ng/mL CBC w/auto diff (reflex to manual) [[id number]] (Abnormal) Collected: 04/18/19 020 Specimen: Blood Updated: 04/18/19 0440 WBC 28.77 (H) K/uL RBC 3.16 (L) M/uL HGB 9.0 (L) g/dL HCT 27.9 (L) % MCV 88.5 fl MCH 28.5 pg MCHC 32.2 g/dL RDW SD 51.6 fl PLT 278 K/uL MPV 8.4 fl DIFF TYPE MANUAL Neutrophils Manual 63 % Bands 9 % METAMYELOCYTES 7 % MYELOCYTES 3 % Lymphocytes Manual 13 % Monocytes Manual 3 % Eosinophils Manual 2 % Neutrophils Absolute 18.13 (H) K/uL Bands Manual 2.59 (H) K/uL Metamyelocytes Absolute 2.01 (H) K/uL Myelocytes Absolute 0.86 (H) K/uL Lymphocytes Absolute 3.74 K/uL Monocytes Absolute 0.86 (H) K/uL Eosinophils Absolute 0.58 (H) K/uL MORPHOLOGY 1+ Basic metabolic panel [[id number]] (Abnormal) Collected: 04/18/19199 Specimen: Blood Updated: 04/18/19236 SODIUM 130 (L) mmol/L POTASSIUM 5.7 (H) mmol/L CHLORIDE 100 mmol/L CO2 23 mmol/L ANION GAP AGAP 13 mmol/L GLUCOSE 177 (H) mg/dL BUN 48 (H) mg/dL CREATININE 1.74 (H) mg/dL BUN/CREAT 28 CALCIUM 7.9 (L) mg/dL EGFR 31 (L) mL/min/1.73m2 Ferritin [[id number]] (Abnormal) Collected: 04/17/191951 Specimen: Blood Updated: 04/17/192315 FERRITIN 2,076 (H) ng/mL Iron panel [[id number]] (Abnormal) Collected: 04/17/191951 Specimen: Blood Updated: 04/17/192315 IRON 40 ug/dL TIBC 194 (L) ug/dL IRON % SAT 21 % POCT glucose [[id number]] Collected: 04/17/191556 Updated: 04/17/192048 GLUCOSE,POC SCREEN 88 mg/dL CBC: Lab Results Component Value Date WBC 16.83 (H) 04/20/2019 RBC 2.63 (L) 04/20/2019 HGB 7.7 (L) 04/20/2019 HCT 23.3 (L) 04/20/2019 MCV 88.5 04/20/2019 MCH 29.2 04/20/2019 MCHC 33.0 04/20/2019 RDW 53.4 (H) 04/20/2019 PLT 297 04/20/2019 MPV 8.6 04/20/2019 DIFFTYPE MANUAL 04/20/2019 CMP: Lab Results Component Value Date NA 130 (L) 04/20/2019 K 5.2 (H) 04/20/2019 CL 99 04/20/2019 CO2 26 04/20/2019 ANIONGAP 11 04/20/2019 GLUF 142 (H) 04/20/2019 BUN 52 (H) 04/20/2019 CREATININE 1.7 (H) 04/20/2019 CREATININE 3.11 (A) 11/17/2017 BCR 31 04/20/2019 CA 7.5 (L) 04/20/2019 CA 9.4 07/01/2017 PROT 5.7 (L) 04/13/2019 ALB 2.6 (L) 04/13/2019 GLOB 3.1 04/13/2019 BILITOT 0.9 04/13/2019 ALP 291 (H) 04/13/2019 AST 50 (H) 04/13/2019 ALT 32 04/13/2019 EGFR 32 (L) 04/20/2019 Magnesium: Lab Results Component Value Date MG 2.2 04/15/2019 Phosphorus: Lab Results Component Value Date PHOS 4.8 04/15/2019 PT/INR: Lab Results Component Value Date INR 2.2 04/14/2019 Last 3 Troponin: Lab Results Component Value Date TROPONINI 1.21 (HH) 10/05/2012 TROPONINI 2.00 (HH) 10/05/2012 TROPONINI 0.35 (H) 10/22/2011 ABG: Lab Results Component Value Date POCPH 7.368 04/14/2019 POCPCO 36 04/14/2019 POCPO2 105 04/14/2019 POCHCO 21 (L) 04/14/2019 POCTCO2 22 (L) 04/14/2019 POCBD 5 (H) 04/14/2019 POCSO2 98 04/14/2019 POCCMT Modified Chin Test passed 04/14/2019 Xr Chest 1 View Result Date: 04/18/2019 CHEST ONE VIEW CLINICAL INFORMATION: Pneumonia and sepsis. COMPARISON: XR CHEST 1 VIEW (03/20); ECHO OUTSIDE INTERPRETATION (03/24/2017); XR CHEST 1 VIEW (01/05/2016); FINDINGS: Prev ious left IJ catheter is been removed. No pneumothorax. Single lead AICD with battery pack over the left chest with lead extending vertically into the precordial region. Resolution of previous pulmonary venous congestion and interstitial edema. Subtle residual effusions a re suspected. Heart size is normal. 1. Resolution previous CHF and pulmonary edema perhaps with subtle residual effusions. Sign ed by: Emy Rivers Shawn Sign Date/Time: 04/18/2019 1:27 PM X-ray Chest 1 View Result Date: 04/13/2019 CHEST ONE VIEW CLINICAL INFORMATION: Central line placement COMPARISON: ECHO OUTSIDE INTERP RETATION (03/24/2017); XR CHEST 1 VIEW (01/05/2016); XR FLUORO OVER 1 HOUR (01/02/2016); FINDING S: Poorly defined opacity in the left lung base. Right lung is clear. Costophrenic angles a re clear. No pneumothorax. Cardiac silhouette is unremarkable. Left IJ central venous cat heter terminates in the mid SVC. Poorly defined opacity in the left lung base, which may represent atelectasis or consolidat ion. Left IJ central venous catheter terminates in the mid SVC. Signed by: Emy Romero John Sign Date/Time: 04/13/2019 7:44 PM Echo Cardiac Adult With Contrast Result Date: 04/15/2019 Patient Name: Alondra Caballero Date of : 1970 Performing P hysician: Mari Mcdaniel INDICATIONS abnormal ekg CONCLUSIONS 1. This was a technically diff icult study with suboptimal views. 2. The left ventricle is moderately dilated, moderately i mpaired systolic function, akinetic anterior, anteroseptal, inferoseptal and apical segments , EF 30-35%. 3. Pseudonormal LV diastolic filling pattern, consistent with elevated LA press ure and moderate dysfunction (Grade II). 4. The right ventricle is normal in size and functi on. 5. There is mild pulmonary hypertension. 6. There is no pericardial effusion. FINDINGS - ------- ECG rhythm: Sinus rhythm. Study: A 2-dimensional transthoracic echocardiogram with m -mode, spectral and color flow Doppler was perfomed. Study: This was a technically difficult study with suboptimal views. Left Ventricle: Overall left ventricular systolic function is moderate-severely impaired with, an EF between 30 - 35 %. Left Ventricle: The left ventricle is moderately dilated. Left Ventricle: Left ventricular wall thickness is normal. There thad ears to be akinesis of the mid to distal septal wall and apex. Left Ventricle: Pseudonormal LV diastolic filling pattern, consistent with elevated LA pressure and moderate dysfunction (Grade II). Right Ventricle: The right ventricle is normal in size and function. Left Atrium : The left atrium is moderately dilated. Right Atrium: The right atrium is mildly enlarged. Aortic Valve: The aortic valve is trileaflet. Aortic Valve: There is mild aortic valve scler osis without stenosis. Aortic Valve: There is no evidence of aortic regurgitation. Mitral Va lve: There is trace mitral regurgitation. Mitral Valve: Mild mitral annular calcification pr esent. Tricuspid Valve: The tricuspid valve appears structurally normal. Tricuspid Valve: Mi ld tricuspid regurgitation present. Tricuspid Valve: There is mild pulmonary hypertension. T ricuspid Valve: The right ventricular systolic pressure (pulmonary artery systolic pressure) , as measured by Doppler, is 35.75mmHg. Pulmonic Valve: The pulmonic valve was not well visu alized. Pericardium: There is no pericardial effusion. Pericardium: No pleural effusion seen . IVC/Hepatic Veins: The IVC is normal size (1.5-2.5cm) and collapses >50% with sniff, consi stent with central venous pressures of 3 mmHg. Aorta: The aortic root and ascending aorta ar e normal in size. Contrast: Poor visualization. Definity was used to opacify the left ventri cular chamber and improve delineation of the endocardial border. MEASUREMENTS Ao asc: 3.26 cm Ao sinus: 3.12 cm IVC: 1.67 cm EDV(Teich): 215.22 ml IVSd: 0.77 cm LVIDd: 6.48 cm LVPWd: 1.09 cm LVOT Diam: 2.11 cm %FS: 32.20 % EF(Teich): 59.26 % ESV(Teich): 87.67 ml IVSs: 1.21 cm LVIDs: 4.39 cm LVPWs: 1.53 cm SV(Teich): 127.54 ml RA Major: 5.50 cm RVIDd: 3.89 cm LVEF MOD A4C: 26.54 % SV MOD A4C: 42.28 ml LVED V MOD A4C: 159.26 ml LVLd A4C: 8.45 cm LVESV MOD A4C: 116.98 ml LVLs A4C: 8.51 cm LA ESV(A-L): 110.56 ml LAESV Index (A-L): 45.68 ml/m2 LAAs A2C: 26.90 cm2 LAESV A-L A2C: 88.69 ml LALs A2C: 6.92 cm LAAs A4C: 33.33 cm2 LAESV A-L A4C: 136.96 ml LALs A4C: 6.88 cm TAPSE: 2.14 cm AV maxP.27 mmHg AV meanP.11 mmHg AV Vmax: 1.60 m/s A V Vmean: 1.16 m/s AV VTI: 31.46 cm ALMITA Vmax: 2.22 cm2 ALMITA (VTI): 2.34 cm2 AVAI Vmax: 0.00 cm2/m2 AVAI (VTI): 0.00 cm2/m2 LVCI Dopp: 2.70 l/minm2 LVCO Dopp: 6.54 l/min H R: 88.69 BPM LVOT maxP.08 mmHg LVOT meanP.32 mmHg LVSI Dopp: 30.50 ml/m2 LVS V Dopp: 73.83 ml LVOT Vmax: 1.01 m/s LVOT Vmean: 0.73 m/s LVOT VTI: 20.94 cm MV A Ve l: 1.30 m/s MV DecT: 254.70 ms MV E Delia: 1.44 m/s MV E/A Ratio: 1.10 MV PHT: 79.98 ms MVA By PHT: 2.75 cm2 MV maxP.11 mmHg MV meanP.43 mmHg MV Vmax: 1.81 m/s MV Vmean: 1.11 m/s MV VTI: 42.30 cm MVA (VTI): 1.74 cm2 Septal e': 0.03 m/s Septal E/e': 36.41 Lateral e': 0.05 m/s Lateral E/e': 25.65 HR: 90.60 BPM PV maxP.38 mmHg PV meanP.76 mmHg PV Vmax: 0.91 m/s PV Vmean: 0.63 m/s PV VTI: 19.84 cm RAP: 8 mmHg RV S': 0.08 m/s RVSP: 35.75 mmHg TR maxP.75 mmHg TR Vmax: 2.63 m/s Emelyn mcginnis: FLEX Authenticated by: Mari Weissaromas Report Date/Time: 04-15-2019 10:55:13 1. This was a technically difficult study with suboptimal views. 2. The left ventricle is m oderately dilated, moderately impaired systolic function, akinetic anterior, anteroseptal, i nferoseptal and apical segments, EF 30-35%. 3. Pseudonormal LV diastolic filling pattern, co nsistent with elevated LA pressure and moderate dysfunction (Grade II). 4. The right ventric le is normal in size and function. 5. There is mild pulmonary hypertension. 6. There is no p ericardial effusion. PROBLEM LIST Principal Problem: Septic shock ([facility]) Active Problems: Morbid obesity ([facility]) CHF (congestive heart failure) ([facility]) CKD (chronic kidney disease), stage IV Metabolic acidosis ICD (implantable cardioverter-defibrillator), single, 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, with long-term current use of insulin ([facility]) Ischemic cardiomyopathy Sepsis ([facility]) Gangrene of extremity ([facility]) Hyperkalemia Lactic acidosis Hyponatremia Group G streptococcal infection Skin ulcer of finger, limited to breakdown of skin ([facility]) Hyperkalemia ASSESSMENT & PLAN Septic shock resolved and was likely secondary to right leg wet gangrene and streptococcal bacteremia secondary to it status post right above-knee amputation by Dr. Cook Plan continue the patient on Rocephin IV daily through April 27 PICC line placed Appreciate infectious disease input Leukocytosis trending downwards and likely secondary to streptococcal bacteremia Plan continue the patient on Rocephin IV daily through April 27 Major depression and PTSD Plan psych consulted who recommend to increase Effexor to to 25 mg daily and prazosin added at night for PTSD Acute pain postop involving the right above-knee amputation site pain better controlled plan continue on gabapentin 300 mg at night and 200 mg in the morning And continue on oxycodone as needed Diabetes mellitus insulin-dependent blood glucose reasonably controlled Plan continue the patient on Levemir 25 units twice daily, lispro 12 units with meals and i nsulin sliding scale Chronic systolic CHF well compensated with most recent ejection fraction of 35% Plan continue on metoprolol and Torsemide We will continue to hold losartan due to hyperkalemia Hyperkalemia likely secondary to losartan which has discontinued and potassium stable on 5. 2 Acute renal failure on chronic kidney disease stage IV resolved Anemia: Likely secondary anemia of chronic kidney disease and daily blood draws otherwise c omplete iron panel B12 folate are within normal limits and hemoglobin dropping down below 8 Plan continue patient on epogen and check CBC periodically Guaiac stools ordered Insomnia add trazodone 50 mg at night Bilateral knee amputation: Patient will likely benefit from rehabilitation DVT prophylaxis on heparin MARK CARRANZA MD 04/20/2019 onversion Transactio n, Provider Unknown - 04/20/2019 2:17 PM PDT Progress Notes by Lorraine Evans RD at 04/20/19 1417 Author: Lorraine Evans RD Service: (none) Author Type: Registered Dietitian Filed: 04/20/191416 Date of Service: 04/20/191416 Status: Signed Chief Pharmacist: Lorraine Evans RD (Registered Dietitian) 04/20/19 2426 Subjective Timepoint Follow up (M risk ) Pt c/o Pt reports intake is fair. Comes and goes depending on pain. Thinks she may be dis charged to SNF tomorrow. Fluid / Beverage Intake Liquid Meal Replacement or Supplement Did not like Stanley. Had asked to have Boost stopped, but would like to try Boost Breeze. Food Intake Amount of Food Pt reports she has been eating soft foods. Type of Food / Meals Diabetic maintenance Food and Nutrition Knowledge Area(s) and Level of Knowledge Reviewed high potassium foods with pt and encouraged her to avoid. List of high K foods provided. Nutrition-Focused Physical Findings Digestive System (Mouth to Rectum) Reports sores in her mouth. States [facility] mouthwash is h elping. Biochemical data, medical tests, and procedures reviewed Biochemical data, medical tests, and procedures reviewed K elevated. Recommendations Recommended energy needs Continue diet as ordered. Recommend avoid high potassium foods. Cancel boost glucose control and stanley. Add boost breeze prn. Monitor and follow as bruce castellanos. Nutritional Risk Nutritional risk Low / moderate Follow up date 04/26/19 lMorteza denney, [employer] - 04/20/2019 1:54 PM PDTFormatting of this note might be different from t he original. Progress Notes by Morteza Jimenez CPO, LPO at 04/20/19 2332 Author: Morteza Jimenez CPO, LPO Service: Prosthetics/Orthotics Author Type: Certifi ed Orthotics/Prosthetics Filed: 04/20/19 9037 Date of Service: 04/20/19 3444 Status: Signed Chief Pharmacist: Morteza Jimenez CPO, LPO (Certified Orthotics/Prosthetics) [facility] note: Alondra Shane is seen for the fitting of her Ampushield stump protector. She is log-rolled into the device with the assistance of her nurse. Noel was discussed an d demonstrated. She is comfortable in the device at this time. The printed instructions and extra stump sock are left on the window ledge. She will call us if her location finalizes af ter discharge. Call for adjustments or modifications PRN. Morteza Jimenez CPO/RONDA rsisak, Char Dumont MD - 04/20/2019 12:16 PM PDT Progress Notes by Char Veliz MD at 04/20/19 1216 Author: Char Veliz MD Service: Infectious Disease Author Type: Physici an Filed: 04/20/19 1220 Date of Service: 04/20/19 1216 Status: Signed Chief Pharmacist: Char Veliz MD (Physician) [facility] Service: Infectious Diseases Progress Note Hospital Day: LOS: 7 days Post-Op Day: 6 Days Post-Op CC: follow up on infection and antibiotic therapy SUBJECTIVE/OVERNIGHT EVENTS The patient remains on treatment with antibiotics. No acute events over last 24 hours are reported. REVIEW OF SYSTEMS: Patient complaining of some nausea and sores at edge of mouth. No other new issues otherwise. MEDICATIONS: Reviewed PHYSICAL EXAM Vital Signs: BP 101/56 (BP Location: Left upper arm) | Pulse 104 | Temp 98.9 F (37.2 C) (Oral) | Resp 20 | Ht 1.778 m (5' 10") | Wt 123.4 kg (272 lb) | LMP 10/04/2011 | SpO2 94% | BMI 39.03 kg/m Focused exam shows: General exam: No distress, cooperative with exam. HEENT: sclera non-icteric, no visible oral thrush Cardiovascular: regular rate and rhythm Lungs: no tachypnea, clear breath sounds. Mildly decreased at bases Abdomen: no distension, bowel sounds present Extremities/MSK: R AKA bandaged; L BKA Skin: No lesions, normal turgor Neurologic: Awake, cranial nerves intact. Follows commands. LABS: MICRO: No new culture growth All labs were reviewed. CBC: Lab Results Component Value Date WBC 16.83 (H) 04/20/2019 RBC 2.63 (L) 04/20/2019 HGB 7.7 (L) 04/20/2019 HCT 23.3 (L) 04/20/2019 MCV 88.5 04/20/2019 MCH 29.2 04/20/2019 MCHC 33.0 04/20/2019 RDW 53.4 (H) 04/20/2019 PLT 297 04/20/2019 MPV 8.6 04/20/2019 DIFFTYPE MANUAL 04/20/2019 CMP: Lab Results Component Value Date NA 133 (L) 04/20/2019 K 5.2 (H) 04/20/2019 CL 99 04/20/2019 CO2 26 04/20/2019 ANIONGAP 11 04/20/2019 GLUF 142 (H) 04/20/2019 BUN 52 (H) 04/20/2019 CREATININE 1.7 (H) 04/20/2019 CREATININE 3.11 (A) 11/17/2017 BCR 31 04/20/2019 CA 7.5 (L) 04/20/2019 CA 9.4 07/01/2017 PROT 5.7 (L) 04/13/2019 ALB 2.6 (L) 04/13/2019 GLOB 3.1 04/13/2019 BILITOT 0.9 04/13/2019 ALP 291 (H) 04/13/2019 AST 50 (H) 04/13/2019 ALT 32 04/13/2019 EGFR 32 (L) 04/20/2019 Principal Problem: Septic shock ([facility]) Active Problems: Morbid obesity ([facility]) CHF (congestive heart failure) ([facility]) CKD (chronic kidney disease), stage IV Metabolic acidosis ICD (implantable cardioverter-defibrillator), single, 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, with long-term current use of insulin ([facility]) Ischemic cardiomyopathy Sepsis ([facility]) Gangrene of extremity ([facility]) Hyperkalemia Lactic acidosis Hyponatremia Group G streptococcal infection Skin ulcer of finger, limited to breakdown of skin ([facility]) Hyperkalemia Resolved Problems: * No resolved hospital problems. * ASSESSMENT & PLAN The patient is a 49 y.o.-year-old female with the following problems: Septic shock given right lower extremity wet gangrene Group G strep bacteremia Uncontrolled diabetes to Stage IV CKD Hep C ab (+); HCVRNA negative indicating prior infection Recommendations: Continueceftriaxone for 2 weeks after first negative blood cultures through April 27 Placed PICC line Orders have been written in chart Follow-up in 2 weeks Dictation software, Kahua, used which may contain error for similar sounding words even af ter review. Personal communication requested for any clarification. Portions of this chart may have been copied from previous notes for continuity of care purp khang Veliz MD Infectious Diseases 04/20/2019 onversi on Transaction, Provider Unknown - 04/20/2019 10:38 AM PDTFormatting of this note might be d ifferent from the original. Case Management by Yuli Guerra RN at 04/20/19 1038 Author: Yuli Guerra RN Service: (none) Author Type: Registered Nurse Filed: 04/20/19 1040 Date of Service: 04/20/19 1038 Status: Signed Chief Pharmacist: Yuli Guerra RN (Registered Nurse) Rounded with Dr Carranza: pt not medically ready today. Possibly tomorrow. Following H&Hs an d stool. 1040: messaged Iftikhar at [facility] to inform her of possible discharge over the [place]. Morteza Montes CPO - 04/20/2019 8:59 AM PDTFormatting of this note might be different from t he original. Progress Notes by Morteza Jimenez CPO, LPO at 04/20/19 0859 Author: Morteza Jimenez CPO, LPO Service: Prosthetics/Orthotics Author Type: Certifi ed Orthotics/Prosthetics Filed: 04/20/19 0903 Date of Service: 04/20/19 0859 Status: Signed Chief Pharmacist: Morteza Jimenez CPO, LPO (Certified Orthotics/Prosthetics) [facility] note: Alondra Shane Is seen this morning for the measuring of her RT [place] amputa tion for a AmpuShield stump protector. She is familiar with their use as she had one for the left side below the knee. I will return this afternoon to fit the protector. Call for quest ions. Morteza Jimenez CPO/LPO [phone] Princess Sanabria MD - 04/20/2019 6:43 AM PDT Progress Notes by Mari Mcdaniel MD at 04/20/19 0643 Author: Mari Mcdaniel MD Service: Cardiology Author Type: Physician Filed: 05/07/19 1259 Date of Service: 04/20/19 0643 Status: Signed Chief Pharmacist: Mari Mcdaniel MD (Physician) [facility] Service: Cardiology Progress Note Name of International First Officer: Mari Mcdaniel MD I have seen the patient on 04/20/2019, S/P right LE AKA. . SUBJECTIVE Denies chest pain. Current Facility-Administered Medications: acetaminophen (TYLENOL) tablet 650 mg, 650 mg, Oral, Q6H PRN, 650 mg at 04/19/19 0139 OR acetaminophen (TYLENOL) suppository 650 mg, 650 mg, Rectal, Q6H PRN, REBECCA Escobar albuterol (PROVENTIL HFA;VENTOLIN HFA) inhaler, 2 puff, Inhalation, Q4H PRN, REBECCA Escobar allopurinol (ZYLOPRIM) tablet 300 mg, 300 mg, Oral, Daily, Altaf Ramires MD, 300 mg at 04/19/19 0826 aspirin chewable tablet 81 mg, 81 mg, Oral, Daily, Altaf Ramires MD, 81 mg at 0827 atorvastatin (LIPITOR) tablet 80 mg, 80 mg, Oral, Daily, Altaf Ramires MD, 80 mg at 04/19/19 08 cefTRIAXone (ROCEPHIN) IVPB 2 g, 2 g, Intravenous, Q24H, Char JenniferIndra Valdivia, 2 g at 04/19/19 1202 dextrose 10 % infusion, , Intravenous, Continuous PRN, Mark Carranza MD dextrose 50 % solution 12 mL, 12 mL, Intravenous, PRN, Mark Carranza MD dextrose 50 % solution 25 mL, 25 mL, Intravenous, PRN, Mark Carranza MD hafvnulkylexdka-savggnrxinmnyh-awpjnbal (DUKES MOUTHWASH) suspension 10 mL, 10 mL, Swi sh & Spit, 4x daily, Mark Carranza MD, 10 mL at 04/19/192126 docusate sodium (COLACE) capsule 100 mg, 100 mg, Oral, BID PRN, 100 mg at 04/19/19 082 6 OR docusate (COLACE) 50 mg/5 mL liquid 100 mg, 100 mg, Per OG Tube, BID PRN, REBECCA Escobar epoetin poppy (PROCRIT) injection 10,000 Units, 10,000 Units, Subcutaneous, Once per da y on Tue, Mark Carranza MD, 10,000 Units at 04/18/19 1148 gabapentin (NEURONTIN) capsule 300 mg, 300 mg, Oral, Nightly, Mark Carranza MD, 300 m g at 04/19/192126 glucagon (GLUCAGEN) injection 0.5 mg, 0.5 mg, Intramuscular, PRN, Mark Carranza MD glucagon (GLUCAGEN) injection 1 mg, 1 mg, Intramuscular, PRN, Mark Carranza MD heparin (porcine) 5000 unit/mL injection 5,000 Units, 5,000 Units, Subcutaneous, 3 mirna es per day, REBECCA Escobar, 5,000 Units at 04/20/19 06 insulin detemir (LEVEMIR) injection 25 Units, 25 Units, Subcutaneous, BID, Mark ramirez MD, 25 Units at 04/19/192122 insulin lispro (human) (HUMALOG) injection 0-10 Units, 0-10 Units, Subcutaneous, TID A C, Mark Carranza MD, 2 Units at 04/19/19 1202 insulin lispro (human) (HUMALOG) injection 0-5 Units, 0-5 Units, Subcutaneous, Nightly , Mark Carranza MD insulin lispro (human) (HUMALOG) injection 12 Units, 12 Units, Subcutaneous, TID AC, S hair Carranza MD, Stopped at 04/19/19 0551 isosorbide dinitrate (ISORDIL) tablet 5 mg, 5 mg, Oral, BID, Mari Mcdaniel MD, 5 m g at 04/19/19 2127 metoprolol (TOPROL-XL) 24 hr tablet 50 mg, 50 mg, Oral, Daily, Mari Mcdaniel MD, 5 0 mg at 04/19/19 0826 nystatin (MYCOSTATIN) powder, , Topical, BID, Bryant REBECCA Peña ondansetron (ZOFRAN-ODT) disintegrating tablet 4 mg, 4 mg, Oral, Q6H PRN OR ondans etron (ZOFRAN) injection 4 mg, 4 mg, Intravenous, Q6H PRN, REBECCA Escobar, 4 mg at 0 04/19/19 2232 oxyCODONE (ROXICODONE) immediate release tablet 5 mg, 5 mg, Oral, Q4H PRN, 5 mg at 11/07 0340 OR oxyCODONE (ROXICODONE) immediate release tablet 10 mg, 10 mg, Oral, Q4H MN N OR oxyCODONE (ROXICODONE) immediate release tablet 15 mg, 15 mg, Oral, Q4H PRN, REBECCA Tomlinson, 15 mg at 04/19/19 0647 petrolatum (LUBRIFRESH P.M.) ophthalmic ointment, , Both Eyes, PRN, REBECCA Escobar polyethylene glycol (GLYCOLAX) packet 17 g, 17 g, Oral, Daily, Mark Carranza MD, 17 g at 04/19/19 1202 prazosin (MINIPRESS) capsule 1 mg, 1 mg, Oral, Nightly, Mark Carranza MD, 1 mg at 10/07 sodium bicarbonate tablet 1,300 mg, 1,300 mg, Oral, TID, Altaf Ramires MD, 1,300 mg at 04/20/19 0603 sodium chloride 0.9 % flush 10 mL, 10 mL, Intravenous, 2 times per day, Char Veliz MD, 10 mL at 04/19/192125 sodium chloride 0.9 % flush 10 mL, 10 mL, Intravenous, PRN, Char Veliz MD torsemide (DEMADEX) tablet 20 mg, 20 mg, Oral, Daily, Mark Carranza MD, 20 mg at 0810/07 0826 venlafaxine (EFFEXOR-XR) 24 hr capsule 225 mg, 225 mg, Oral, Daily with breakfast, Blaine Carranza MD OBJECTIVE Vital Signs: BP 93/52 (BP Location: Left upper arm) | Pulse 99 | Temp 98.6 F (37 C) (Oral) | Resp 20 | Ht 1.778 m (5' 10") | Wt 123.4 kg (272 lb) | LMP 10/04/2011 | SpO2 94% | BMI 39.0 3 kg/m Intake/Output Summary (Last 24 hours) at 04/20/19 0643 Last data filed at 04/20/19 0438 Gross per 24 hour Intake 2365 ml Output 2575 ml Net -210 ml Cardiovascular: Regular rhythm, S1 normal and S2 normal. No murmur heard. Pulses: Radial pulses are 2+ on the right side, and 2+ on the left side. Pulmonary/Chest: Effort normal and breath sounds normal. No wheezes. No rales. Abdominal: Soft. No tenderness. Musculoskeletal: Left BKA, right AKA. Neurological: Alert. Sleepy. Skin: Warm and dry. DATA Recent Labs Lab 04/20/19 0355 04/19/19 1349 04/19/19 0932 04/19/19 0145 04/18/19 1718 04/15/19 0208 04/14/19 1525 04/14/19 0409 NA 131* 132* 131* 132* < > 130* < > 132* < > 130* < > 127* K 5.2* -- -- 5.2* -- 5.7* < > 4.7 -- 4.9 -- 4.8 CO2 26 -- -- 25 -- 23 < > 21* -- -- -- 22* BUN 52* -- -- 57* -- 54* < > 75* -- -- -- 83* CREATININE 1.7* -- -- 1.8* -- 1.7* < > 2.77* -- -- -- 3.6* EGFR 32* -- -- 30* -- 32* < > 18* -- -- -- 13* MG -- -- -- -- -- -- -- 2.2 -- 2.1 -- 2.4 < > = values in this interval not displayed. Recent Labs Lab 04/20/19 0355 04/19/19 0145 04/18/19 0200 WBC 16.83* 27.78* 28.77* HGB 7.7* 8.8* 9.0* HCT 23.3* 26.9* 27.9* MCV 88.5 87.8 88.5 PLT 297 309 278 Recent Labs Lab 04/17/19 1952 04/14/19 0409 TSH 9.360* -- INR -- 2.2 Lab Results Component Value Date CHOL 164 11/21/2018 TRIG 354 (A) 11/21/2018 LDL 60 11/21/2018 HDL 33 11/21/2018 GLUF 142 (H) 04/20/2019 HGBA1C 6.6 (H) 04/14/2019 TSH 9.360 (H) 04/17/2019 EK04/13/2019 Reviewed showed normal sinus rhythm, RBBB, poor R wave progression. Last Echo: 04/13/2019 Last Echo, 03/24/2017 Normal LV size, with [...] ASSESSMENT & PLAN Patient is 49 y.o. 1. Right lower Ext wet gangrenous, S/P LE AKA. 2. Coronary artery disease. No angina. 3. Persistent leukocytosis. 4. Ischemic cardiomyopathy. EF 30-35%. 5. Diabetes mellitus insulin dependent. 6. Acute on chronic kidney disease. Cr improving. 7. Hyponatremia. 8. Anemia, likely of chronic disease. 9. Morbid obesity. 10. Tachycardia. Recommendations: Work up and monitoring for any infectious etiology. Has known totally occluded LAD. Continue with medical therapy for cardiomyopathy. Isosorbide 5 mg bid. Increase metoprolol succinate to 50 mg and titrate up as tolerated. Continue ABx. EF still in the 30-35% range, known akinetic anterior wall and apical segments. Will continue following. Medical management by the hospitalist team. Code Status: Full Code Mari Mcdaniel MD 04/20/2019 onversion Transac tion, Provider Unknown - 04/20/2019 6:10 AM PDTFormatting of this note might be different f rom the original. Nurse Progress Note by Abiola Jane RN at 04/20/19609 Author: Abiola Jane RN Service: (none) Author Type: Registered Nurse Filed: 04/20/19612 Date of Service: 04/20/19609 Status: Signed Chief Pharmacist: Abiola Jane RN (Registered Nurse) Pt lethargic over night and woke up several times due to discomfort. PRN oxy given with alvina e relief. Pt c/o nausea, prn zofran given. VSS. End of shift review complete. Abiola Jane ari Miguel ra, MD - 04/19/2019 8:32 PM PDT Progress Notes by Mari Mcdaniel MD at 04/19/192031 Author: Mari Mcdaniel MD Service: Cardiology Author Type: Physician Filed: 04/19/192137 Date of Service: 04/19/192031 Status: Signed Chief Pharmacist: Mari Mcdaniel MD (Physician) [facility] Service: Cardiology Progress Note Name of International First Officer: Mari Mcdaniel MD I have seen the patient on 04/19/2019, S/P right LE AKA. . SUBJECTIVE Denies chest pain. Current Facility-Administered Medications: acetaminophen (TYLENOL) tablet 650 mg, 650 mg, Oral, Q6H PRN, 650 mg at 04/19/19 0139 OR acetaminophen (TYLENOL) suppository 650 mg, 650 mg, Rectal, Q6H PRN, REBECCA Escobar albuterol (PROVENTIL HFA;VENTOLIN HFA) inhaler, 2 puff, Inhalation, Q4H PRN, REBECCA Escobar allopurinol (ZYLOPRIM) tablet 300 mg, 300 mg, Oral, Daily, Altaf Ramires MD, 300 mg at 04/19/19 0826 aspirin chewable tablet 81 mg, 81 mg, Oral, Daily, Altaf Ramires MD, 81 mg at 0827 atorvastatin (LIPITOR) tablet 80 mg, 80 mg, Oral, Daily, Altaf Ramires MD, 80 mg at 04/19/19 0827 cefTRIAXone (ROCEPHIN) IVPB 2 g, 2 g, Intravenous, Q24H, Indra Steve D, 2 g at 04/19/19 1202 dextrose 10 % infusion, , Intravenous, Continuous PRN, Mark Carranza MD dextrose 50 % solution 12 mL, 12 mL, Intravenous, PRN, Mark Carranza MD dextrose 50 % solution 25 mL, 25 mL, Intravenous, PRN, Mark Carranza MD kjbcvttlhjdqrvp-zzfapdhbjmklql-cguqymhn (DUKES MOUTHWASH) suspension 10 mL, 10 mL, Swi sh & Spit, 4x daily, Mark Carranza MD docusate sodium (COLACE) capsule 100 mg, 100 mg, Oral, BID PRN, 100 mg at 04/19/19 082 6 OR docusate (COLACE) 50 mg/5 mL liquid 100 mg, 100 mg, Per OG Tube, BID PRN, REBECCA Escobar epoetin poppy (PROCRIT) injection 10,000 Units, 10,000 Units, Subcutaneous, Once per da y on Tue, Mark Carranza MD, 10,000 Units at 04/18/19 1148 gabapentin (NEURONTIN) capsule 300 mg, 300 mg, Oral, Nightly, Mark Carranza MD, 300 m g at 04/18/19 2100 glucagon (GLUCAGEN) injection 0.5 mg, 0.5 mg, Intramuscular, PRN, Mark Carranza MD glucagon (GLUCAGEN) injection 1 mg, 1 mg, Intramuscular, PRN, Mark Carranza MD heparin (porcine) 5000 unit/mL injection 5,000 Units, 5,000 Units, Subcutaneous, 3 mirna es per day, REBECCA Escobar, 5,000 Units at 04/19/19 1506 insulin detemir (LEVEMIR) injection 25 Units, 25 Units, Subcutaneous, BID, Mark ramirez MD, 25 Units at 04/19/19 0827 insulin lispro (human) (HUMALOG) injection 0-10 Units, 0-10 Units, Subcutaneous, TID A C, Mark Carranza MD, 2 Units at 04/19/19 1202 insulin lispro (human) (HUMALOG) injection 0-5 Units, 0-5 Units, Subcutaneous, Nightly , Mark Carranza MD insulin lispro (human) (HUMALOG) injection 12 Units, 12 Units, Subcutaneous, TID AC, S hair Carranza MD, Stopped at 04/19/19 0551 isosorbide dinitrate (ISORDIL) tablet 5 mg, 5 mg, Oral, BID, Mari Mcdaniel MD, 5 m g at 04/19/19 0829 metoprolol (TOPROL-XL) 24 hr tablet 50 mg, 50 mg, Oral, Daily, Mari Mcdaniel MD, 5 0 mg at 04/19/19 0826 nystatin (MYCOSTATIN) powder, , Topical, BID, Bryant REBECCA Peña ondansetron (ZOFRAN-ODT) disintegrating tablet 4 mg, 4 mg, Oral, Q6H PRN OR ondans etron (ZOFRAN) injection 4 mg, 4 mg, Intravenous, Q6H PRN, NAVDEEP EscobarP, 4 mg at 0 04/15/19 1012 oxyCODONE (ROXICODONE) immediate release tablet 5 mg, 5 mg, Oral, Q4H PRN, 5 mg at 10/07 1919 OR oxyCODONE (ROXICODONE) immediate release tablet 10 mg, 10 mg, Oral, Q4H MN N OR oxyCODONE (ROXICODONE) immediate release tablet 15 mg, 15 mg, Oral, Q4H PRN, Alyson Armstrong, SALES AND TRAINING SPECIALIST, 15 mg at 04/19/19 0647 petrolatum (LUBRIFRESH P.M.) ophthalmic ointment, , Both Eyes, PRN, REBECCA Escobar polyethylene glycol (GLYCOLAX) packet 17 g, 17 g, Oral, Daily, Mark Carranza MD, 17 g at 04/19/19 1202 prazosin (MINIPRESS) capsule 1 mg, 1 mg, Oral, Nightly, Mark Carranza MD sodium bicarbonate tablet 1,300 mg, 1,300 mg, Oral, TID, Altaf Ramires MD, 1,300 mg at 04/19/19 1324 sodium chloride 0.9 % flush 10 mL, 10 mL, Intravenous, 2 times per day, Char Veliz MD, 10 mL at 04/19/19 0832 sodium chloride 0.9 % flush 10 mL, 10 mL, Intravenous, PRN, Char Veliz MD torsemide (DEMADEX) tablet 20 mg, 20 mg, Oral, Daily, Mark Carranza MD, 20 mg at 10/07 0826 [START ON 04/20/2019] venlafaxine (EFFEXOR-XR) 24 hr capsule 225 mg, 225 mg, Oral, Daily with breakfast, Mark Carranza MD OBJECTIVE Vital Signs: BP 106/52 (BP Location: Left upper arm) | Pulse 101 | Temp 98.7 F (37.1 C) (Axillary) | Resp 20 | Ht 1.778 m (5' 10") | Wt 123.4 kg (272 lb) | LMP 10/04/2011 | SpO2 97% | BMI 39.03 kg/m Intake/Output Summary (Last 24 hours) at 04/19/192031 Last data filed at 04/19/19 1743 Gross per 24 hour Intake 2460 ml Output 3025 ml Net -565 ml Cardiovascular: Regular rhythm, S1 normal and S2 normal. No murmur heard. Pulses: Radial pulses are 2+ on the right side, and 2+ on the left side. Pulmonary/Chest: Effort normal and breath sounds normal. No wheezes. No rales. Abdominal: Soft. No tenderness. Musculoskeletal: Left BKA, right AKA. Neurological: Alert. Sleepy. Skin: Warm and dry. DATA Recent Labs Lab 04/19/19 1349 04/19/19 0932 04/19/19 0145 04/18/19 1718 04/18/19 0200 04/15/19 0208 04/14/19 1525 04/14/19 0409 NA 132* 131* 132* < > 130* < > 130* < > 132* < > 130* < > 127* K -- -- 5.2* -- 5.7* -- 5.7* < > 4.7 -- 4.9 -- 4.8 CO2 -- -- 25 -- 23 -- 23 < > 21* -- -- -- 22* BUN -- -- 57* -- 54* -- 48* < > 75* -- -- -- 83* CREATININE -- -- 1.8* -- 1.7* -- 1.74* < > 2.77* -- -- -- 3.6* EGFR -- -- 30* -- 32* -- 31* < > 18* -- -- -- 13* MG -- -- -- -- -- -- -- -- 2.2 -- 2.1 -- 2.4 < > = values in this interval not displayed. Recent Labs Lab 04/19/19 0145 04/18/19 0200 04/17/19 0627 WBC 27.78* 28.77* 30.43* HGB 8.8* 9.0* 8.6* HCT 26.9* 27.9* 26.9* MCV 87.8 88.5 86.0 PLT 309 278 264 Recent Labs Lab 04/17/19 19504/14/19 0409 TSH 9.360* -- INR -- 2.2 Lab Results Component Value Date CHOL 164 11/21/2018 TRIG 354 (A) 11/21/2018 LDL 60 11/21/2018 HDL 33 11/21/2018 GLUF 74 04/19/2019 HGBA1C 6.6 (H) 04/14/2019 TSH 9.360 (H) 04/17/2019 EK04/13/2019 Reviewed showed normal sinus rhythm, RBBB, poor R wave progression. Last Echo: 04/13/2019 Last Echo, 03/24/2017 Normal LV size, with [...] ASSESSMENT & PLAN Patient is 49 y.o. 1. Right lower Ext wet gangrenous, S/P LE AKA. 2. Coronary artery disease. No angina. 3. Persistent leukocytosis. 4. Ischemic cardiomyopathy. EF 30-35%. 5. Diabetes mellitus insulin dependent. 6. Acute on chronic kidney disease. Cr improving. 7. Hyponatremia. 8. Anemia, likely of chronic disease. 9. Morbid obesity. 10. Tachycardia. Recommendations: Work up and monitoring for any infectious etiology. Has known totally occluded LAD. Continue with medical therapy for cardiomyopathy. Isosorbide 5 mg bid. Increase metoprolol succinate to 50 mg and titrate up as tolerated. Continue ABx. EF still in the 30-35% range, known akinetic anterior wall and apical segments. Will continue following. Medical management by the hospitalist team. Code Status: Full Code Mari Mcdaniel MD 04/19/2019 ark Carranza MD - 04/19/2019 2:45 PM PDT Progress Notes by Mark Carranza MD at 04/19/19 4894 Author: Mark Carranza MD Service: Hospitalist Author Type: Physician Filed: 04/19/19 4139 Date of Service: 04/19/19 5691 Status: Signed Chief Pharmacist: Mark Carranza MD (Physician) Hospitalist Progress Note Alondra Caballero 49 y.o. [id number] female [facility] Day: LOS: 6 days Patient Summary: 49-year-old female with past medical history of methamphetamine abus e stopped 8 years ago, diabetes mellitus type 2 insulin-dependent, chronic kidney disease st age IV, coronary disease status post cardiac stent to left circumflex, chronic total occlude d proximal LAD, CHF with ejection fraction 35 %, history of left BKA who was transferred fro [facility] with worsening swelling of the right leg, pain, right foot ulcer wi th purulent discharge, necrotic tissue found to have a white count of 50,000, lactic acid of 1.9, creatinine of 3.78, potassium of 6.5, sodium of 122 when patient started on vancomycin as well as Zosyn shortly after arrival patient develop septic shock and was given 3 L of no rmal saline bolus and started on levophed after which the patient was transferred to ICU for higher level of care. Dr. Cook from vascular surgery consulted patient underwent right above-knee amputation for g angrene of right lower extremity with sepsis. Patient blood culture grew group G strep to c occal and antibiotics narrowed down to Rocephin on 16 April IV through April 27. Patient had a echocardiogram which showed ejection fraction of 30 to 35% and pseudo-normal LV diastolic filling pattern grade 2 dysfunction and no evidence of endocarditis. Patient white count is slightly elevated and patient evaluated by vascular surgery again . Her wound at right above-knee amputation site looks good without any evidence of cellulitis or abscess SUBJECTIVE and Events Overnight: Patient seen and examine. No acute over night event. Patient complaining of 4-5 out of 10 pain in the right above-knee amputation site and feeling depressed denies any suicidal ideat ion or thoughts, no diarrhea no abdominal pain though still having cough on and off Scheduled Medications allopurinol 300 mg Oral Daily aspirin 81 mg Oral Daily atorvastatin 80 mg Oral Daily cefTRIAXone 2 g Intravenous Q24H epoetin poppy 10,000 Units Subcutaneous Once per day on Tue gabapentin 300 mg Oral Nightly heparin 5,000 Units Subcutaneous 3 times per day insulin detemir 25 Units Subcutaneous BID insulin lispro (human) 0-10 Units Subcutaneous TID AC insulin lispro (human) 0-5 Units Subcutaneous Nightly insulin lispro (human) 12 Units Subcutaneous TID AC isosorbide dinitrate 5 mg Oral BID metoprolol 50 mg Oral Daily nystatin Topical BID polyethylene glycol 17 g Oral Daily prazosin 1 mg Oral Nightly sodium bicarbonate 1,300 mg Oral TID sodium chloride 10 mL Intravenous 2 times per day torsemide 20 mg Oral Daily [START ON 04/20/2019] venlafaxine 225 mg Oral Daily with breakfast Continuous Infusions dextrose PRN Medications acetaminophen OR acetaminophen, albuterol, dextrose, dextrose, dextrose, docusate sodiu m OR docusate, glucagon, glucagon, ondansetron OR ondansetron, oxyCODONE OR oxyC ODONE OR oxyCODONE, petrolatum, sodium chloride Allergy: Allergies Allergen Reactions Sulfacetamide Hives Sulfamethoxazole-Trimethoprim Hives Demerol [Meperidine] Rash Patient has tolerated fentanyl in house Latex Other (See Comments) Hives Methadone Other (See Comments) Stomach pains,shaky Sulfa Antibiotics Rash Vicodin [Hydrocodone-Acetaminophen] Rash OBJECTIVE Vital Signs: BP 112/53 (BP Location: Left upper arm) | Pulse 106 | Temp 98.3 F (36.8 C) (Oral) | Resp 20 | Ht 1.778 m (5' 10") | Wt 123.4 kg (272 lb) | LMP 10/04/2011 | SpO2 97% | BMI 39.03 kg/m Temp: [98.1 F (36.7 C)-99 F (37.2 C)] 98.3 F (36.8 C) (04/19 1155) BP: (82-115)/(49-55) 112/53 (04/19 1155) Heart Rate: [100-107] 106 (04/19 1155) Resp: [18-21] 20 (04/19 1155) SpO2: [96 %-98 %] 97 % (04/19 1155) I&O Detailed Table: Intake/Output Summary (Last 24 hours) at 04/19/19 1445 Last data filed at 04/19/19 1043 Gross per 24 hour Intake 3018.46 ml Output 3375 ml Net -356.54 ml Hemodynamics Last 24hrs: Examination: Constitutional: Alert and oriented to person, place, and time. Cardiovascular: Normal rate, regular rhythm, normal heart sounds and intact distal pulses. Exam reveals no gallop and no friction rub. No murmur heard. Pulmonary/Chest: Effort normal and breath sounds normal. No stridor. No respiratory distres s. no wheezes. no rales. exhibits no tenderness. Abdominal: Soft. Bowel sounds are normal. exhibits no distension and no mass. There is no t enderness. There is no rebound and no guarding. Musculoskeletal: Normal range of motion.exhibits no tenderness. exhibits left BKA and righ t AKA, surgical dressing in place at right AKA site. Neurological: Alert and oriented to person, place, and time. Has normal reflexes. Except left BKA and right AKA Skin: Skin is warm and dry. No rash noted. No erythema. No pallor. Psychiatric: Has a dysphoric mood and affect. Behavior is normal. Judgment normal. Laboratory: Glucose: Results Procedure Component Value Units Date/Time Sodium [[id number]] (Abnormal) Collected: 04/19/19 1349 Specimen: Blood Updated: 04/19/19 1421 SODIUM 132 (L) mmol/L Urinalysis Microscopic Only [[id number]] (Abnormal) Collected: 04/19/19 1042 Specimen: Urine from Urine, Catheter Updated: 04/19/19 1324 WBC 6-10 /hpf RBC 3-5 /hpf EPITHELIAL 6-10 /lpf BACTERIA 1+ (A) Mucus, UA 1+ HCV RNA quant by PCR [[id number]] Collected: 04/16/19 1458 Specimen: Blood Updated: 04/19/19 1309 HCV RNA VIRAL LOAD HCV Not Detected IU/mL TEST INFORMATION (See Below) Urine culture [[id number]] Collected: 04/19/19 1051 Specimen: Urine from Urine, Clean Catch Updated: 04/19/19 1256 Sputum culture [[id number]] Collected: 04/18/19 1448 Specimen: Sputum from Sputum Updated: 04/19/19 1204 Specimen Description SPUTUM GRAM STAIN GREATER THAN 10 WBCS/LPF GRAM STAIN LESS THAN 10 SEC/LPF GRAM STAIN NO ORGANISMS SEEN CULTURE 1+ NORMAL UPPER RESPIRATORY RADHA POCT glucose [[id number]] (Abnormal) Collected: 04/19/19 1154 Updated: 04/19/19 1158 GLUCOSE,POC SCREEN 150 (H) mg/dL Hepatitis B Virus DNA Quant PCR [[id number]] Collected: 04/16/19 1458 Updated: 04/19/19 1110 HBV DNA VIRAL LOAD UPTCAL LOG10 IU/ML HB DNA VIRAL LOAD IU/mL HBV DNA not detected IU/mL COMMENT (See Below) Sodium [[id number]] (Abnormal) Collected: 04/19/19 0932 Specimen: Blood Updated: 04/19/19 1004 SODIUM 131 (L) mmol/L POCT glucose [[id number]] (Abnormal) Collected: 04/19/19 0525 Updated: 04/19/19 0837 GLUCOSE,POC SCREEN 112 (H) mg/dL POCT glucose [[id number]] (Abnormal) Collected: 04/19/19 0817 Updated: 04/19/19 0834 GLUCOSE,POC SCREEN 138 (H) mg/dL Blood Culture Set 1 [[id number]] Collected: 04/13/19 1922 Specimen: Blood from Blood Line Draw Updated: 04/19/19 0610 Specimen Description BLOOD, LINE DRAW SPECIAL REQUESTS CENTRAL CULTURE NO GROWTH 6 DAYS CBC w/auto diff (reflex to manual) [[id number]] (Abnormal) Collected: 04/19/19 0145 Specimen: Blood Updated: 04/19/19 0440 WBC 27.78 (H) K/uL RBC 3.07 (L) M/uL HGB 8.8 (L) g/dL HCT 26.9 (L) % MCV 87.8 fl MCH 28.6 pg MCHC 32.6 g/dL RDW SD 52.5 fl PLT 309 K/uL MPV 8.8 fl DIFF TYPE MANUAL Neutrophils Manual 54 % Bands 8 % METAMYELOCYTES 9 % MYELOCYTES 7 % Lymphocytes Manual 18 % Monocytes Manual 3 % Eosinophils Manual 1 % Neutrophils Absolute 15.01 (H) K/uL Bands Manual 2.22 (H) K/uL Metamyelocytes Absolute 2.50 (H) K/uL Myelocytes Absolute 1.94 (H) K/uL Lymphocytes Absolute 5.00 (H) K/uL Monocytes Absolute 0.83 (H) K/uL Eosinophils Absolute 0.28 K/uL Platelet Estimate INCREASED MORPHOLOGY RBC AND PLT MORPHOLOGY APPEAR NORMAL Basic metabolic panel [[id number]] (Abnormal) Collected: 04/19/19 0145 Specimen: Blood Updated: 04/19/19432 SODIUM 132 (L) mmol/L POTASSIUM 5.2 (H) mmol/L CHLORIDE 99 mmol/L CO2 25 mmol/L ANION GAP AGAP 13 mmol/L GLUCOSE 74 mg/dL BUN 57 (H) mg/dL CREATININE 1.8 (H) mg/dL BUN/CREAT 32 CALCIUM 7.8 (L) mg/dL EGFR 30 (L) mL/min/1.73m2 POCT glucose [[id number]] (Abnormal) Collected: 04/18/192057 Updated: 04/18/192101 GLUCOSE,POC SCREEN 156 (H) mg/dL POCT glucose [[id number]] Collected: 04/18/19 1610 Updated: 04/18/192101 GLUCOSE,POC SCREEN 83 mg/dL POCT glucose [[id number]] (Abnormal) Collected: 04/18/19 1200 Updated: 04/18/192100 GLUCOSE,POC SCREEN 102 (H) mg/dL Sodium [[id number]] (Abnormal) Collected: 04/18/191955 Specimen: Blood Updated: 04/18/192051 SODIUM 130 (L) mmol/L Basic metabolic panel [[id number]] (Abnormal) Collected: 04/18/191717 Specimen: Blood Updated: 04/18/191955 SODIUM 130 (L) mmol/L POTASSIUM 5.7 (H) mmol/L CHLORIDE 99 mmol/L CO2 23 mmol/L ANION GAP AGAP 14 mmol/L GLUCOSE 84 mg/dL BUN 54 (H) mg/dL CREATININE 1.7 (H) mg/dL BUN/CREAT 32 CALCIUM 8.0 (L) mg/dL EGFR 32 (L) mL/min/1.73m2 Sodium [[id number]] (Abnormal) Collected: 04/18/19 1409 Specimen: Blood Updated: 04/18/19 1444 SODIUM 134 (L) mmol/L POCT glucose [[id number]] (Abnormal) Collected: 04/18/1943 Updated: 04/18/19 1118 GLUCOSE,POC SCREEN 167 (H) mg/dL Sodium [[id number]] (Abnormal) Collected: 04/18/1915 Specimen: Blood Updated: 04/18/1945 SODIUM 131 (L) mmol/L POCT glucose [[id number]] (Abnormal) Collected: 04/17/192006 Updated: 04/18/19820 GLUCOSE,POC SCREEN 140 (H) mg/dL Vitamin B12 [[id number]] (Abnormal) Collected: 04/17/191951 Specimen: Blood Updated: 04/18/19551 VITAMIN B12 >2,000 (H) pg/mL Folate [[id number]] Collected: 04/17/191951 Specimen: Blood Updated: 04/18/19527 FOLATE 13.6 ng/mL CBC w/auto diff (reflex to manual) [[id number]] (Abnormal) Collected: 04/18/19199 Specimen: Blood Updated: 04/18/19439 WBC 28.77 (H) K/uL RBC 3.16 (L) M/uL HGB 9.0 (L) g/dL HCT 27.9 (L) % MCV 88.5 fl MCH 28.5 pg MCHC 32.2 g/dL RDW SD 51.6 fl PLT 278 K/uL MPV 8.4 fl DIFF TYPE MANUAL Neutrophils Manual 63 % Bands 9 % METAMYELOCYTES 7 % MYELOCYTES 3 % Lymphocytes Manual 13 % Monocytes Manual 3 % Eosinophils Manual 2 % Neutrophils Absolute 18.13 (H) K/uL Bands Manual 2.59 (H) K/uL Metamyelocytes Absolute 2.01 (H) K/uL Myelocytes Absolute 0.86 (H) K/uL Lymphocytes Absolute 3.74 K/uL Monocytes Absolute 0.86 (H) K/uL Eosinophils Absolute 0.58 (H) K/uL MORPHOLOGY 1+ Basic metabolic panel [[id number]] (Abnormal) Collected: 04/18/19199 Specimen: Blood Updated: 04/18/19236 SODIUM 130 (L) mmol/L POTASSIUM 5.7 (H) mmol/L CHLORIDE 100 mmol/L CO2 23 mmol/L ANION GAP AGAP 13 mmol/L GLUCOSE 177 (H) mg/dL BUN 48 (H) mg/dL CREATININE 1.74 (H) mg/dL BUN/CREAT 28 CALCIUM 7.9 (L) mg/dL EGFR 31 (L) mL/min/1.73m2 Ferritin [[id number]] (Abnormal) Collected: 04/17/191951 Specimen: Blood Updated: 04/17/192315 FERRITIN 2,076 (H) ng/mL Iron panel [[id number]] (Abnormal) Collected: 04/17/191951 Specimen: Blood Updated: 04/17/192315 IRON 40 ug/dL TIBC 194 (L) ug/dL IRON % SAT 21 % POCT glucose [[id number]] Collected: 04/17/19 1557 Updated: 04/17/19 2049 GLUCOSE,POC SCREEN 88 mg/dL Sodium [[id number]] (Abnormal) Collected: 04/17/19 1447 Specimen: Blood Updated: 04/17/19 1513 SODIUM 133 (L) mmol/L POCT glucose [[id number]] (Abnormal) Collected: 04/17/19 1201 Updated: 04/17/19 1443 GLUCOSE,POC SCREEN 118 (H) mg/dL Sodium [[id number]] (Abnormal) Collected: 04/17/19 1130 Specimen: Blood Updated: 04/17/19 1148 SODIUM 133 (L) mmol/L Pathologist consult [[id number]] Collected: 04/13/19 192 Updated: 04/17/19 1032 Pathologist Consult -- POCT glucose [[id number]] (Abnormal) Collected: 04/17/19 0915 Updated: 04/17/19 0935 GLUCOSE,POC SCREEN 136 (H) mg/dL CBC w/auto diff (reflex to manual) [[id number]] (Abnormal) Collected: 04/17/19 06 Specimen: Blood from Blood Updated: 04/17/19 0739 WBC 30.43 (HH) K/uL RBC 3.13 (L) M/uL HGB 8.6 (L) g/dL HCT 26.9 (L) % MCV 86.0 fl MCH 27.6 pg MCHC 32.1 g/dL RDW SD 50.8 fl PLT 264 K/uL MPV 7.9 fl DIFF TYPE MANUAL nRBC 1 (H) /100WBC Neutrophils Manual 70 % Bands 4 % METAMYELOCYTES 4 % Lymphocytes Manual 14 % Monocytes Manual 7 % Eosinophils Manual 1 % Neutrophils Absolute 21.30 (H) K/uL Bands Manual 1.22 (H) K/uL Metamyelocytes Absolute 1.22 (H) K/uL Lymphocytes Absolute 4.26 (H) K/uL Monocytes Absolute 2.13 (H) K/uL Eosinophils Absolute 0.30 K/uL Platelet Estimate ADEQUATE MORPHOLOGY 1+ Basic metabolic panel [[id number]] (Abnormal) Collected: 04/17/19626 Specimen: Blood from Blood Updated: 04/17/19654 SODIUM 135 mmol/L POTASSIUM 5.2 (H) mmol/L CHLORIDE 109 mmol/L CO2 23 mmol/L ANION GAP AGAP 8 mmol/L GLUCOSE 102 (H) mg/dL BUN 58 (H) mg/dL CREATININE 1.95 (H) mg/dL BUN/CREAT 30 CALCIUM 7.7 (L) mg/dL EGFR 27 (L) mL/min/1.73m2 POCT glucose [[id number]] (Abnormal) Collected: 04/17/19522 Updated: 04/17/19 0549 GLUCOSE,POC SCREEN 102 (H) mg/dL Blood Culture Set 1 [[id number]] Collected: 04/15/19 1258 Specimen: Blood from Blood Line Draw Updated: 04/17/19536 Specimen Description BLOOD, LINE DRAW SPECIAL REQUESTS ART LINE HAND CULTURE NO GROWTH 2 DAYS Blood Culture Set 2 [[id number]] Collected: 04/15/19 1255 Specimen: Blood from Blood Line Draw Updated: 04/17/19536 Specimen Description BLOOD, LINE DRAW SPECIAL REQUESTS art line CULTURE NO GROWTH 2 DAYS Sodium [[id number]] Collected: 04/17/19 0235 Specimen: Blood from Blood Updated: 04/17/19 0309 SODIUM 135 mmol/L POCT glucose [[id number]] (Abnormal) Collected: 04/16/192108 Updated: 04/16/19 231 GLUCOSE,POC SCREEN 136 (H) mg/dL Sodium [[id number]] Collected: 04/16/192026 Specimen: Blood from Blood Updated: 04/16/192105 SODIUM 135 mmol/L Hepatitis panel, chronic [[id number]] (Abnormal) Collected: 04/16/19 1458 Updated: 04/16/192007 Hep A Total Ab REACTIVE (A) HEP B SURFACE AG NON REACTIVE HEP B CORE AB,TOTAL NON REACTIVE HEP B SURFACE ANTIBODY <0.35 IV HEPATITIS C REACTIVE (A) HEPATITIS INTERP Current or past HAV infection and current or past HCV infection. No sero logic evidence of HBV infection or vaccination. POCT glucose [[id number]] (Abnormal) Collected: 04/16/19 1518 Updated: 04/16/19 1922 GLUCOSE,POC SCREEN 177 (H) mg/dL Sodium [[id number]] Collected: 04/16/19 1434 Specimen: Blood Updated: 04/16/19 1455 SODIUM 135 mmol/L CBC: Lab Results Component Value Date WBC 27.78 (H) 04/19/2019 RBC 3.07 (L) 04/19/2019 HGB 8.8 (L) 04/19/2019 HCT 26.9 (L) 04/19/2019 MCV 87.8 04/19/2019 MCH 28.6 04/19/2019 MCHC 32.6 04/19/2019 RDW 52.5 04/19/2019 PLT 309 04/19/2019 MPV 8.8 04/19/2019 DIFFTYPE MANUAL 04/19/2019 CMP: Lab Results Component Value Date NA 132 (L) 04/19/2019 K 5.2 (H) 04/19/2019 CL 99 04/19/2019 CO2 25 04/19/2019 ANIONGAP 13 04/19/2019 GLUF 74 04/19/2019 BUN 57 (H) 04/19/2019 CREATININE 1.8 (H) 04/19/2019 CREATININE 3.11 (A) 11/17/2017 BCR 32 04/19/2019 CA 7.8 (L) 04/19/2019 CA 9.4 07/01/2017 PROT 5.7 (L) 04/13/2019 ALB 2.6 (L) 04/13/2019 GLOB 3.1 04/13/2019 BILITOT 0.9 04/13/2019 ALP 291 (H) 04/13/2019 AST 50 (H) 04/13/2019 ALT 32 04/13/2019 EGFR 30 (L) 04/19/2019 Magnesium: Lab Results Component Value Date MG 2.2 04/15/2019 Phosphorus: Lab Results Component Value Date PHOS 4.8 04/15/2019 PT/INR: Lab Results Component Value Date INR 2.2 04/14/2019 Last 3 Troponin: Lab Results Component Value Date TROPONINI 1.21 (HH) 10/05/2012 TROPONINI 2.00 (HH) 10/05/2012 TROPONINI 0.35 (H) 10/22/2011 ABG: Lab Results Component Value Date POCPH 7.368 04/14/2019 POCPCO 36 04/14/2019 POCPO2 105 04/14/2019 POCHCO 21 (L) 04/14/2019 POCTCO2 22 (L) 04/14/2019 POCBD 5 (H) 04/14/2019 POCSO2 98 04/14/2019 POCCMT Modified Chin Test passed 04/14/2019 Xr Chest 1 View Result Date: 04/18/2019 CHEST ONE VIEW CLINICAL INFORMATION: Pneumonia and sepsis. COMPARISON: XR CHEST 1 VIEW (03/20); ECHO OUTSIDE INTERPRETATION (03/24/2017); XR CHEST 1 VIEW (01/05/2016); FINDINGS: Prev ious left IJ catheter is been removed. No pneumothorax. Single lead AICD with battery pack over the left chest with lead extending vertically into the precordial region. Resolution of previous pulmonary venous congestion and interstitial edema. Subtle residual effusions a re suspected. Heart size is normal. 1. Resolution previous CHF and pulmonary edema perhaps with subtle residual effusions. Sign ed by: Emy Rivers Shawn Sign Date/Time: 04/18/2019 1:27 PM X-ray Chest 1 View Result Date: 04/13/2019 CHEST ONE VIEW CLINICAL INFORMATION: Central line placement COMPARISON: ECHO OUTSIDE INTERP RETATION (03/24/2017); XR CHEST 1 VIEW (01/05/2016); XR FLUORO OVER 1 HOUR (01/02/2016); FINDING S: Poorly defined opacity in the left lung base. Right lung is clear. Costophrenic angles a re clear. No pneumothorax. Cardiac silhouette is unremarkable. Left IJ central venous cat heter terminates in the mid SVC. Poorly defined opacity in the left lung base, which may represent atelectasis or consolidat ion. Left IJ central venous catheter terminates in the mid SVC. Signed by: Emy Romero John Sign Date/Time: 04/13/2019 7:44 PM Echo Cardiac Adult With Contrast Result Date: 04/15/2019 Patient Name: Alondra Caballero Date of : 1970 [place] Raygoza jn: Mari Mcdaniel INDICATIONS abnormal ekg CONCLUSIONS 1. This was a technically diff icult study with suboptimal views. 2. The left ventricle is moderately dilated, moderately i mpaired systolic function, akinetic anterior, anteroseptal, inferoseptal and apical segments , EF 30-35%. 3. Pseudonormal LV diastolic filling pattern, consistent with elevated LA press ure and moderate dysfunction (Grade II). 4. The right ventricle is normal in size and functi on. 5. There is mild pulmonary hypertension. 6. There is no pericardial effusion. FINDINGS - ------- ECG rhythm: Sinus rhythm. Study: A 2-dimensional transthoracic echocardiogram with m -mode, spectral and color flow Doppler was perfomed. Study: This was a technically difficult study with suboptimal views. Left Ventricle: Overall left ventricular systolic function is moderate-severely impaired with, an EF between 30 - 35 %. Left Ventricle: The left ventricle is moderately dilated. Left Ventricle: Left ventricular wall thickness is normal. There thad ears to be akinesis of the mid to distal septal wall and apex. Left Ventricle: Pseudonormal LV diastolic filling pattern, consistent with elevated LA pressure and moderate dysfunction (Grade II). Right Ventricle: The right ventricle is normal in size and function. Left Atrium : The left atrium is moderately dilated. Right Atrium: The right atrium is mildly enlarged. Aortic Valve: The aortic valve is trileaflet. Aortic Valve: There is mild aortic valve scler osis without stenosis. Aortic Valve: There is no evidence of aortic regurgitation. Mitral Va lve: There is trace mitral regurgitation. Mitral Valve: Mild mitral annular calcification pr esent. Tricuspid Valve: The tricuspid valve appears structurally normal. Tricuspid Valve: Mi ld tricuspid regurgitation present. Tricuspid Valve: There is mild pulmonary hypertension. T ricuspid Valve: The right ventricular systolic pressure (pulmonary artery systolic pressure) , as measured by Doppler, is 35.75mmHg. Pulmonic Valve: The pulmonic valve was not well visu alized. Pericardium: There is no pericardial effusion. Pericardium: No pleural effusion seen . IVC/Hepatic Veins: The IVC is normal size (1.5-2.5cm) and collapses >50% with sniff, consi stent with central venous pressures of 3 mmHg. Aorta: The aortic root and ascending aorta ar e normal in size. Contrast: Poor visualization. Definity was used to opacify the left ventri cular chamber and improve delineation of the endocardial border. MEASUREMENTS Ao asc: 3.26 cm Ao sinus: 3.12 cm IVC: 1.67 cm EDV(Teich): 215.22 ml IVSd: 0.77 cm LVIDd: 6.48 cm LVPWd: 1.09 cm LVOT Diam: 2.11 cm %FS: 32.20 % EF(Teich): 59.26 % ESV(Teich): 87.67 ml IVSs: 1.21 cm LVIDs: 4.39 cm LVPWs: 1.53 cm SV(Teich): 127.54 ml RA Major: 5.50 cm RVIDd: 3.89 cm LVEF MOD A4C: 26.54 % SV MOD A4C: 42.28 ml LVED V MOD A4C: 159.26 ml LVLd A4C: 8.45 cm LVESV MOD A4C: 116.98 ml LVLs A4C: 8.51 cm LA ESV(A-L): 110.56 ml LAESV Index (A-L): 45.68 ml/m2 LAAs A2C: 26.90 cm2 LAESV A-L A2C: 88.69 ml LALs A2C: 6.92 cm LAAs A4C: 33.33 cm2 LAESV A-L A4C: 136.96 ml LALs A4C: 6.88 cm TAPSE: 2.14 cm AV maxP.27 mmHg AV meanP.11 mmHg AV Vmax: 1.60 m/s A V Vmean: 1.16 m/s AV VTI: 31.46 cm ALMITA Vmax: 2.22 cm2 ALMITA (VTI): 2.34 cm2 AVAI Vmax: 0.00 cm2/m2 AVAI (VTI): 0.00 cm2/m2 LVCI Dopp: 2.70 l/minm2 LVCO Dopp: 6.54 l/min H R: 88.69 BPM LVOT maxP.08 mmHg LVOT meanP.32 mmHg LVSI Dopp: 30.50 ml/m2 LVS V Dopp: 73.83 ml LVOT Vmax: 1.01 m/s LVOT Vmean: 0.73 m/s LVOT VTI: 20.94 cm MV A Ve l: 1.30 m/s MV DecT: 254.70 ms MV E Delia: 1.44 m/s MV E/A Ratio: 1.10 MV PHT: 79.98 ms MVA By PHT: 2.75 cm2 MV maxP.11 mmHg MV meanP.43 mmHg MV Vmax: 1.81 m/s MV Vmean: 1.11 m/s MV VTI: 42.30 cm MVA (VTI): 1.74 cm2 Septal e': 0.03 m/s Septal E/e': 36.41 Lateral e': 0.05 m/s Lateral E/e': 25.65 HR: 90.60 BPM PV maxP.38 mmHg PV meanP.76 mmHg PV Vmax: 0.91 m/s PV Vmean: 0.63 m/s PV VTI: 19.84 cm RAP: 8 mmHg RV S': 0.08 m/s RVSP: 35.75 mmHg TR maxP.75 mmHg TR Vmax: 2.63 m/s So nographer: FLEX Authenticated by: Mair Weissaromas Report Date/Time: 04-15-2019 10:55:13 1. This was a technically difficult study with suboptimal views. 2. The left ventricle is m oderately dilated, moderately impaired systolic function, akinetic anterior, anteroseptal, i nferoseptal and apical segments, EF 30-35%. 3. Pseudonormal LV diastolic filling pattern, co nsistent with elevated LA pressure and moderate dysfunction (Grade II). 4. The right ventric le is normal in size and function. 5. There is mild pulmonary hypertension. 6. There is no p ericardial effusion. PROBLEM LIST Principal Problem: Septic shock (HCC) Active Problems: Morbid obesity (HCC) CHF (congestive heart failure) (HCC) CKD (chronic kidney disease), stage IV Metabolic acidosis ICD (implantable cardioverter-defibrillator), single, 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, with long-term current use of insulin ([facility]) Ischemic cardiomyopathy Sepsis (HCC) Gangrene of extremity (HCC) Hyperkalemia Lactic acidosis Hyponatremia Group G streptococcal infection Skin ulcer of finger, limited to breakdown of skin (HCC) Hyperkalemia ASSESSMENT & PLAN Septic shock resolved and was likely secondary to right leg wet gangrene and streptococcal bacteremia secondary to it status post right above-knee amputation by Dr. Cook Plan continue the patient on Rocephin IV daily through April 27 PICC line placed Leukocytosis likely secondary to streptococcal bacteremia and rule out UTI Plan send urine for cultures and wound looked by vascular again today on the right above-kn ee amputation site which looks clean without any evidence of infection Major depression and PTSD Plan psych consulted who recommend to increase Effexor to to 25 mg daily and prazosin added at night for PTSD Acute pain postop involving the right above-knee amputation site plan continue on gabapentin 300 mg at night and 200 mg in the morning And continue on oxycodone as needed Diabetes mellitus insulin-dependent blood glucose reasonably controlled Plan continue the patient on Levemir 25 units twice daily, lispro 12 units with meals and i nsulin sliding scale Chronic systolic CHF well compensated with most recent ejection fraction of 35% Plan continue on metoprolol and Torsemide We will continue to hold losartan due to hyperkalemia Hyperkalemia likely secondary to losartan which has discontinued and potassium trending joe nwards 5.2 today Acute renal failure on chronic kidney disease stage IV resolved Anemia: Likely secondary anemia of chronic kidney disease otherwise complete iron panel B12 folate are within normal limits and hemoglobin stable between 8.5-9 Plan continue patient on epogen and check CBC periodically Bilateral knee amputation: Patient will likely benefit from rehabilitation DVT prophylaxis on heparin MARK CARRANZA MD 04/19/2019 [place] Veliz MD - 04/19/2019 11:13 AM PDTFormatting of this note might be different from the orig inal. Progress Notes by Char Veliz MD at 04/19/19 1113 Author: Char Veliz MD Service: Infectious Disease Author Type: Ginna meyer Filed: 04/19/19 1115 Date of Service: 04/19/191112 Status: Signed Chief Pharmacist: Char Veliz MD (Physician) [facility] Service: Infectious Diseases Progress Note Hospital Day: LOS: 6 days Post-Op Day: 5 Days Post-Op CC: follow up on infection and antibiotic therapy SUBJECTIVE/OVERNIGHT EVENTS The patient remains on treatment with antibiotics. No acute events over last 24 hours are reported. REVIEW OF SYSTEMS: Appears somewhat better, more cheerful. Although, states that she is fe eling a bit more depressed. MEDICATIONS: Reviewed PHYSICAL EXAM Vital Signs: BP 114/53 (BP Location: Left forearm) | Pulse 107 | Temp 98.2 F (36.8 C) (Oral) | Re sp 18 | Ht 1.778 m (5' 10") | Wt 123.4 kg (272 lb) | LMP 10/04/2011 | SpO2 97% | BMI 39 .03 kg/m Focused exam shows: General exam: No distress, cooperative with exam. HEENT: sclera non-icteric, no visible oral thrush Cardiovascular: regular rate and rhythm Lungs: no tachypnea, clear breath sounds. Mildly decreased at bases Abdomen: no distension, bowel sounds present Extremities/MSK: R AKA bandaged; L BKA Skin: No lesions, normal turgor Neurologic: Awake, cranial nerves intact. Follows commands. LABS: MICRO All labs were reviewed. CBC: Lab Results Component Value Date WBC 27.78 (H) 04/19/2019 RBC 3.07 (L) 04/19/2019 HGB 8.8 (L) 04/19/2019 HCT 26.9 (L) 04/19/2019 MCV 87.8 04/19/2019 MCH 28.6 04/19/2019 MCHC 32.6 04/19/2019 RDW 52.5 04/19/2019 PLT 309 04/19/2019 MPV 8.8 04/19/2019 DIFFTYPE MANUAL 04/19/2019 CMP: Lab Results Component Value Date NA 131 (L) 04/19/2019 K 5.2 (H) 04/19/2019 CL 99 04/19/2019 CO2 25 04/19/2019 ANIONGAP 13 04/19/2019 GLUF 74 04/19/2019 BUN 57 (H) 04/19/2019 CREATININE 1.8 (H) 04/19/2019 CREATININE 3.11 (A) 11/17/2017 BCR 32 04/19/2019 CA 7.8 (L) 04/19/2019 CA 9.4 07/01/2017 PROT 5.7 (L) 04/13/2019 ALB 2.6 (L) 04/13/2019 GLOB 3.1 04/13/2019 BILITOT 0.9 04/13/2019 ALP 291 (H) 04/13/2019 AST 50 (H) 04/13/2019 ALT 32 04/13/2019 EGFR 30 (L) 04/19/2019 Principal Problem: Septic shock (HCC) Active Problems: Morbid obesity (HCC) CHF (congestive heart failure) (HCC) CKD (chronic kidney disease), stage IV Metabolic acidosis ICD (implantable cardioverter-defibrillator), single, 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, with long-term current use of insulin (HCC) Ischemic cardiomyopathy Sepsis (HCC) Gangrene of extremity (HCC) Hyperkalemia Lactic acidosis Hyponatremia Group G streptococcal infection Skin ulcer of finger, limited to breakdown of skin (HCC) Hyperkalemia Resolved Problems: * No resolved hospital problems. * ASSESSMENT & PLAN The patient is a 49 y.o.-year-old female with the following problems: Septic shock given right lower extremity wet gangrene Group G strep bacteremia Uncontrolled diabetes to Stage IV CKD Hep C ab (+) Recommendations: Continueceftriaxone for 2 weeks after first negative blood cultures through April 27 Placed PICC line PEnding HCV RNA Discussed with Dr. Carranza. May benefit from tele[employer] Dictation software, [place], used which may contain error for similar sounding words even af ter review. Personal communication requested for any clarification. Portions of this chart may have been copied from previous notes for continuity of care purp khang Veliz MD Infectious Diseases 04/19/2019 onversi on Transaction, Provider Unknown - 04/19/2019 8:11 AM PDTFormatting of this note might be d ifferent from the original. Case Management by Yuli Guerra RN at 04/19/19810 Author: Yuli Guerra RN Service: (none) Author Type: Registered Nurse Filed: 04/19/19 0855 Date of Service: 04/19/19810 Status: Addendum Chief Pharmacist: Yuli Guerra RN (Registered Nurse) Related Notes: Original Note by Yuli Guerra RN (Registered Nurse) filed at 04/19/19 0812 0810: spoke with pt about discharge planning- physical therapy is recommending SNF. Pt nee ds IV antibiotics after discharge as well. Pt lives in [place], sent referral to [facility] as her family lives in [place]. Will send referral to [facility] as second option if [facility] is unable to accept. 0850: Iftikhar from [facility] called and accepted pt. Asked Dr Carranza when he thinks the pt will be medically ready- he said in 1-2 days, updated Iftikhar. onver jessica Transaction, Provider Unknown - 04/19/2019 6:01 AM PDT Nurse Progress Note by Vandana Adamson RN at 04/19/19600 Author: Vandana Adamson RN Service: (none) Author Type: Registered Nurse Filed: 04/19/19600 Date of Service: 04/19/19600 Status: Signed Chief Pharmacist: Vandana Adamson RN (Registered Nurse) Patient slept for most of shift. Pain medication given x2. No other acute changes noted. En d of shift review done. Mari Reyna ra, MD - 04/18/2019 7:45 PM PDT Progress Notes by Mari Mcdaniel MD at 04/18/191944 Author: Mari Mcdaniel MD Service: Cardiology Author Type: Physician Filed: 04/18/191948 Date of Service: 04/18/191944 Status: Signed Chief Pharmacist: Mari Mcdaniel MD (Physician) [facility] Service: Cardiology Progress Note Name of International First Officer: Mari Mcdaniel MD I have seen the patient on 04/18/2019, S/P right LE AKA. Good urine output. SUBJECTIVE Denies chest pain. Current Facility-Administered Medications: acetaminophen (TYLENOL) tablet 650 mg, 650 mg, Oral, Q6H PRN, 650 mg at 04/18/19 1722 OR acetaminophen (TYLENOL) suppository 650 mg, 650 mg, Rectal, Q6H PRN, REBECCA Escobar albuterol (PROVENTIL HFA;VENTOLIN HFA) inhaler, 2 puff, Inhalation, Q4H PRN, REBECCA Escobar allopurinol (ZYLOPRIM) tablet 300 mg, 300 mg, Oral, Daily, Altaf Ramires MD, 300 mg at 04/18/19 0840 aspirin chewable tablet 81 mg, 81 mg, Oral, Daily, Altaf Ramires MD, 81 mg at 0838 atorvastatin (LIPITOR) tablet 80 mg, 80 mg, Oral, Daily, Altaf Ramires MD, 80 mg at 04/18/19 0840 cefTRIAXone (ROCEPHIN) IVPB 2 g, 2 g, Intravenous, Q24H, Indra Steve, 2 g at 04/18/19 1138 dextrose 10 % infusion, , Intravenous, Continuous PRN, Mark Carranza MD dextrose 50 % solution 12 mL, 12 mL, Intravenous, PRN, Mark Carranza MD dextrose 50 % solution 25 mL, 25 mL, Intravenous, PRN, Mark Carranza MD docusate sodium (COLACE) capsule 100 mg, 100 mg, Oral, BID PRN OR docusate (COLACE ) 50 mg/5 mL liquid 100 mg, 100 mg, Per OG Tube, BID PRN, REBECCA Escobar epoetin poppy (PROCRIT) injection 10,000 Units, 10,000 Units, Subcutaneous, Once per da y on Tue, Mark Carranza MD, 10,000 Units at 04/18/19 1148 gabapentin (NEURONTIN) capsule 300 mg, 300 mg, Oral, Nightly, Mark Carranza MD glucagon (GLUCAGEN) injection 0.5 mg, 0.5 mg, Intramuscular, PRN, Mark Carranza MD glucagon (GLUCAGEN) injection 1 mg, 1 mg, Intramuscular, PRN, Mark Carranza MD heparin (porcine) 5000 unit/mL injection 5,000 Units, 5,000 Units, Subcutaneous, 3 mirna es per day, REBECCA Escobar, 5,000 Units at 04/18/19 1545 insulin detemir (LEVEMIR) injection 25 Units, 25 Units, Subcutaneous, BID, Mark ramirez MD insulin lispro (human) (HUMALOG) injection 0-10 Units, 0-10 Units, Subcutaneous, TID A C, Mark Carranza MD insulin lispro (human) (HUMALOG) injection 0-5 Units, 0-5 Units, Subcutaneous, Nightly , Mark Carranza MD insulin lispro (human) (HUMALOG) injection 12 Units, 12 Units, Subcutaneous, TID AC, S hair Carranza MD, 12 Units at 04/18/19 1228 isosorbide dinitrate (ISORDIL) tablet 5 mg, 5 mg, Oral, BID, Mari Mcdaniel MD, 5 m g at 04/18/19 0840 metoprolol (TOPROL-XL) 24 hr tablet 25 mg, 25 mg, Oral, Daily, Mark Carranza MD, 25 m g at 04/18/19 0840 nystatin (MYCOSTATIN) powder, , Topical, BID, Bryant REBECCA Peña ondansetron (ZOFRAN-ODT) disintegrating tablet 4 mg, 4 mg, Oral, Q6H PRN OR ondans etron (ZOFRAN) injection 4 mg, 4 mg, Intravenous, Q6H PRN, REBECCA Escobar, 4 mg at 0 04/15/19 1012 oxyCODONE (ROXICODONE) immediate release tablet 5 mg, 5 mg, Oral, Q4H PRN, 5 mg at 1955 OR oxyCODONE (ROXICODONE) immediate release tablet 10 mg, 10 mg, Oral, Q4H MN N OR oxyCODONE (ROXICODONE) immediate release tablet 15 mg, 15 mg, Oral, Q4H PRN, REBECCA Tomlinson, 15 mg at 04/18/19 1600 petrolatum (LUBRIFRESH P.M.) ophthalmic ointment, , Both Eyes, PRN, Sheron Armstrong, SALES AND TRAINING SPECIALIST sodium bicarbonate tablet 1,300 mg, 1,300 mg, Oral, TID, Altaf Ramires MD, 1,300 mg at 04/18/19 1544 sodium chloride 0.9 % flush 10 mL, 10 mL, Intravenous, 2 times per day, Char Veliz MD sodium chloride 0.9 % flush 10 mL, 10 mL, Intravenous, PRN, Char Veliz MD torsemide (DEMADEX) tablet 20 mg, 20 mg, Oral, Daily, Mark Carranza MD, 20 mg at 03/21 10/07 0838 venlafaxine (EFFEXOR-XR) 24 hr capsule 150 mg, 150 mg, Oral, Daily with breakfast, Sal Ramires MD, 150 mg at 04/18/19 0838 OBJECTIVE Vital Signs: BP (!) 82/51 (BP Location: Left forearm) | Pulse 104 | Temp 98.4 F (36.9 C) (Oral) | Resp 20 | Ht 1.778 m (5' 10") | Wt 123.4 kg (272 lb) | LMP 10/04/2011 | SpO2 96% | BMI 39.03 kg/m Intake/Output Summary (Last 24 hours) at 04/18/191944 Last data filed at 04/18/19 1816 Gross per 24 hour Intake 2431.46 ml Output 5600 ml Net -3168.54 ml Cardiovascular: Regular rhythm, S1 normal and S2 normal. No murmur heard. Pulses: Radial pulses are 2+ on the right side, and 2+ on the left side. Pulmonary/Chest: Effort normal and breath sounds normal. No wheezes. No rales. Abdominal: Soft. No tenderness. Musculoskeletal: Left BKA, right AKA. Neurological: Alert. Sleepy. Skin: Warm and dry. DATA Recent Labs Lab 04/18/19 1409 04/18/19 0815 04/18/19 0200 04/17/19 0604/16/19 0745 04/15/19 0208 04/14/19 1525 04/14/19 0409 NA 134* 131* 130* < > 135 < > 135 < > 132* < > 130* < > 127* K -- -- 5.7* -- 5.2* -- 4.7 -- 4.7 -- 4.9 -- 4.8 CO2 -- -- 23 -- 23 -- 23 -- 21* -- -- -- 22* BUN -- -- 48* -- 58* -- 63* -- 75* -- -- -- 83* CREATININE -- -- 1.74* -- 1.95* -- 2.42* -- 2.77* -- -- -- 3.6* EGFR -- -- 31* -- 27* -- 21* -- 18* -- -- -- 13* MG -- -- -- -- -- -- -- -- 2.2 -- 2.1 -- 2.4 < > = values in this interval not displayed. Recent Labs Lab 04/18/19 0200 04/17/1962604/16/19 0745 WBC 28.77* 30.43* 34.19* HGB 9.0* 8.6* 8.4* HCT 27.9* 26.9* 26.2* MCV 88.5 86.0 85.4 PLT 278 264 268 Recent Labs Lab 04/14/19 0409 INR 2.2 Lab Results Component Value Date CHOL 164 11/21/2018 TRIG 354 (A) 11/21/2018 LDL 60 11/21/2018 HDL 33 11/21/2018 GLUF 177 (H) 04/18/2019 HGBA1C 6.6 (H) 04/14/2019 TSH 5.33 (A) 04/02/2015 EK04/13/2019 Reviewed showed normal sinus rhythm, RBBB, poor R wave progression. Last Echo: 04/13/2019 Last Echo, 03/24/2017 Normal LV size, with [...] ASSESSMENT & PLAN Patient is 49 y.o. 1. Right lower Ext wet gangrenous, S/P LE AKA. 2. Coronary artery disease. No angina. 3. Leukocytosis improving. 4. Ischemic cardiomyopathy. EF 30-35%. 5. Diabetes mellitus insulin dependent. 6. Acute on chronic kidney disease. Cr improving. 7. Hyperkalemia. 8. Anemia, likely of chronic disease. 9. Morbid obesity. 10. Tachycardia. Recommendations: EF still in the 30-35% range, known akinetic anterior wall and apical segments. Has known totally occluded LAD. Continue with medical therapy for cardiomyopathy. Isosorbide 5 mg bid. Increase metoprolol succinate To 50 mg and titrate up as tolerated. Continue ABx. Will continue following. Medical management by the hospitalist team. Code Status: Full Code Mari Mcdaniel MD 04/18/2019 onversion Transac tion, Provider Unknown - 04/18/2019 5:41 PM PDTFormatting of this note might be different f rom the original. Nurse Progress Note by Umberto Christina RN at 04/18/191740 Author: Umberto Christina RN Service: (none) Author Type: Registered Nurse Filed: 04/18/191744 Date of Service: 04/18/191740 Status: Signed Chief Pharmacist: Umberto Christina RN (Registered Nurse) VSS, afebrile. Pt resting comfortably in bed. Kayexalate given for K+ level of 5.7 today. Roxicodone 15 mg given X2 for pain, Tylenol given X1. Wound care in to see patient, R KARIMEA dr arellano changed, new orders received. No other acute changes from am assessment. Will contin ue to monitor. End of shift review completed.UMBERTO CHRISTINA, RN onver jessica Transaction, Provider Unknown - 04/18/2019 3:11 PM PDT Therapy Progress Note by Kym Wilson PT at 04/18/19 1511 Author: Kym Wilson PT Service: (none) Author Type: Physical Therapist Filed: 04/18/19 1529 Date of Service: 04/18/19 151 Status: Signed Chief Pharmacist: Kym Wilson PT (Physical Therapist) 04/18/19 1511 PT Last Visit PT Received On 04/18/19 Requires PT Follow Up Unavailable Other Comments Comments Pt with PICC line RN; census permitting, may follow up later today or tomorrow. Mark England MD - 04/18/2019 2:10 PM PDTFormatting of this note might be different from the or iginal. Progress Notes by Mark Carranza MD at 04/18/19 1410 Author: Mark Carranza MD Service: Hospitalist Author Type: Physician Filed: 04/18/19 1414 Date of Service: 04/18/19 1410 Status: Signed Chief Pharmacist: Mark Carranza MD (Physician) Hospitalist Progress Note Alondrabalwinder Shane Federico 49 y.o. [phone] [id number] female [facility] Day: LOS: 5 days Patient Summary: 49-year-old female with past medical history of methamphetamine abus e stopped 8 years ago, diabetes mellitus type 2 insulin-dependent, chronic kidney disease st age IV, coronary disease status post cardiac stent to left circumflex, chronic total occlude d proximal LAD, CHF with ejection fraction 35 %, history of left BKA who was transferred fro [facility] with worsening swelling of the right leg, pain, right foot ulcer wi th purulent discharge, necrotic tissue found to have a white count of 50,000, lactic acid of 1.9, creatinine of 3.78, potassium of 6.5, sodium of 122 when patient started on vancomycin as well as Zosyn shortly after arrival patient develop septic shock and was given 3 L of no rmal saline bolus and started on levophed after which the patient was transferred to ICU for higher level of care. Dr. Cook from vascular surgery consulted patient underwent right above-knee amputation for g angrene of right lower extremity with sepsis. Patient blood culture grew group G strep to c occal and antibiotics narrowed down to Rocephin on 16 April IV through April 27. Patient had a echocardiogram which showed ejection fraction of 30 to 35% and pseudo-normal LV diastolic filling pattern grade 2 dysfunction and no evidence of endocarditis. SUBJECTIVE and Events Overnight: Patient seen and examine. No acute over night event. 5-7 out of 10 pain in the right knee amputation site with difficulty sleeping at night recasting strong pain medication at night before she goes to sleep otherwise denied any other complaint except productive cough bringi ng up yellowish colored phlegm Scheduled Medications allopurinol 300 mg Oral Daily aspirin 81 mg Oral Daily atorvastatin 80 mg Oral Daily cefTRIAXone 2 g Intravenous Q24H epoetin poppy 10,000 Units Subcutaneous Once per day on Tue gabapentin 300 mg Oral Nightly heparin 5,000 Units Subcutaneous 3 times per day insulin detemir 25 Units Subcutaneous BID insulin lispro (human) 0-10 Units Subcutaneous TID AC insulin lispro (human) 0-5 Units Subcutaneous Nightly insulin lispro (human) 12 Units Subcutaneous TID AC isosorbide dinitrate 5 mg Oral BID metoprolol 25 mg Oral Daily nystatin Topical BID sodium bicarbonate 1,300 mg Oral TID sodium chloride 10 mL Intravenous 2 times per day torsemide 20 mg Oral Daily venlafaxine 150 mg Oral Daily with breakfast Continuous Infusions dextrose PRN Medications acetaminophen OR acetaminophen, albuterol, dextrose, dextrose, dextrose, docusate sodiu m OR docusate, glucagon, glucagon, ondansetron OR ondansetron, oxyCODONE OR oxyC ODONE OR oxyCODONE, petrolatum, sodium chloride Allergy: Allergies Allergen Reactions Sulfacetamide Hives Sulfamethoxazole-Trimethoprim Hives Demerol [Meperidine] Rash Patient has tolerated fentanyl in house Latex Other (See Comments) Hives Methadone Other (See Comments) Stomach pains,shaky Sulfa Antibiotics Rash Vicodin [Hydrocodone-Acetaminophen] Rash OBJECTIVE Vital Signs: BP 121/54 (BP Location: Right forearm) | Pulse 95 | Temp 98.4 F (36.9 C) (Oral) | Re sp 18 | Ht 1.778 m (5' 10") | Wt 123.4 kg (272 lb) | LMP 10/04/2011 | SpO2 96% | BMI 39 .03 kg/m Temp: [98.2 F (36.8 C)-98.5 F (36.9 C)] 98.4 F (36.9 C) (04/18 1203) BP: (111-122)/(54-64) 121/54 (04/18 120) Heart Rate: [91-103] 95 (04/18 120) Resp: [18] 18 (04/18 120) SpO2: [95 %-99 %] 96 % (04/18 120) Height: [177.8 cm (5' 10")] 177.8 cm (5' 10") (04/17 1537) Weight: [123.4 kg (272 lb)] 123.4 kg (272 lb) (04/17 1537) BMI (Calculated): [39.1] 39.1 (04/17 1537) I&O Detailed Table: Intake/Output Summary (Last 24 hours) at 04/18/19 1410 Last data filed at 04/18/19 1307 Gross per 24 hour Intake 1273 ml Output 4600 ml Net -3327 ml Hemodynamics Last 24hrs: Examination: Constitutional: Alert and oriented to person, place, and time. Cardiovascular: Normal rate, regular rhythm, normal heart sounds and intact distal pulses. Exam reveals no gallop and no friction rub. No murmur heard. Pulmonary/Chest: Effort normal and breath sounds normal. No stridor. No respiratory distres s. no wheezes. no rales. exhibits no tenderness. Abdominal: Soft. Bowel sounds are normal. exhibits no distension and no mass. There is no t enderness. There is no rebound and no guarding. Musculoskeletal: Normal range of motion.exhibits no tenderness. exhibits left BKA and righ t AKA, surgical dressing in place at right AKA site. Neurological: Alert and oriented to person, place, and time. Has normal reflexes. Except left BKA and right AKA Skin: Skin is warm and dry. No rash noted. No erythema. No pallor. Psychiatric: Has a normal mood and affect. Behavior is normal. Judgment normal. Laboratory: Glucose: Results Procedure Component Value Units Date/Time POCT glucose [[id number]] (Abnormal) Collected: 04/18/19542 Updated: 04/18/19 1118 GLUCOSE,POC SCREEN 167 (H) mg/dL Sodium [[id number]] (Abnormal) Collected: 04/18/19814 Specimen: Blood Updated: 04/18/19844 SODIUM 131 (L) mmol/L POCT glucose [[id number]] (Abnormal) Collected: 04/17/192006 Updated: 04/18/19 08 GLUCOSE,POC SCREEN 140 (H) mg/dL Vitamin B12 [[id number]] (Abnormal) Collected: 04/17/191951 Specimen: Blood Updated: 04/18/19551 VITAMIN B12 >2,000 (H) pg/mL Folate [[id number]] Collected: 04/17/191951 Specimen: Blood Updated: 04/18/19527 FOLATE 13.6 ng/mL CBC w/auto diff (reflex to manual) [[id number]] (Abnormal) Collected: 04/18/19199 Specimen: Blood Updated: 04/18/19 0440 WBC 28.77 (H) K/uL RBC 3.16 (L) M/uL HGB 9.0 (L) g/dL HCT 27.9 (L) % MCV 88.5 fl MCH 28.5 pg MCHC 32.2 g/dL RDW SD 51.6 fl PLT 278 K/uL MPV 8.4 fl DIFF TYPE MANUAL Neutrophils Manual 63 % Bands 9 % METAMYELOCYTES 7 % MYELOCYTES 3 % Lymphocytes Manual 13 % Monocytes Manual 3 % Eosinophils Manual 2 % Neutrophils Absolute 18.13 (H) K/uL Bands Manual 2.59 (H) K/uL Metamyelocytes Absolute 2.01 (H) K/uL Myelocytes Absolute 0.86 (H) K/uL Lymphocytes Absolute 3.74 K/uL Monocytes Absolute 0.86 (H) K/uL Eosinophils Absolute 0.58 (H) K/uL MORPHOLOGY 1+ Basic metabolic panel [[id number]] (Abnormal) Collected: 04/18/19 0200 Specimen: Blood Updated: 04/18/19 0237 SODIUM 130 (L) mmol/L POTASSIUM 5.7 (H) mmol/L CHLORIDE 100 mmol/L CO2 23 mmol/L ANION GAP AGAP 13 mmol/L GLUCOSE 177 (H) mg/dL BUN 48 (H) mg/dL CREATININE 1.74 (H) mg/dL BUN/CREAT 28 CALCIUM 7.9 (L) mg/dL EGFR 31 (L) mL/min/1.73m2 Ferritin [[id number]] (Abnormal) Collected: 04/17/191951 Specimen: Blood Updated: 04/17/192315 FERRITIN 2,076 (H) ng/mL Iron panel [[id number]] (Abnormal) Collected: 04/17/191951 Specimen: Blood Updated: 04/17/192315 IRON 40 ug/dL TIBC 194 (L) ug/dL IRON % SAT 21 % POCT glucose [[id number]] Collected: 04/17/19 1557 Updated: 04/17/19 2049 GLUCOSE,POC SCREEN 88 mg/dL Sodium [[id number]] (Abnormal) Collected: 04/17/19 1447 Specimen: Blood Updated: 04/17/19 1513 SODIUM 133 (L) mmol/L POCT glucose [[id number]] (Abnormal) Collected: 04/17/19 1201 Updated: 04/17/19 1443 GLUCOSE,POC SCREEN 118 (H) mg/dL Sodium [[id number]] (Abnormal) Collected: 04/17/19 1130 Specimen: Blood Updated: 04/17/19 1148 SODIUM 133 (L) mmol/L Pathologist consult [[id number]] Collected: 04/13/19 1922 Updated: 04/17/19 1032 Pathologist Consult -- POCT glucose [[id number]] (Abnormal) Collected: 04/17/19 0915 Updated: 04/17/19 0935 GLUCOSE,POC SCREEN 136 (H) mg/dL CBC w/auto diff (reflex to manual) [[id number]] (Abnormal) Collected: 04/17/19 0627 Specimen: Blood from Blood Updated: 04/17/19 0739 WBC 30.43 (HH) K/uL RBC 3.13 (L) M/uL HGB 8.6 (L) g/dL HCT 26.9 (L) % MCV 86.0 fl MCH 27.6 pg MCHC 32.1 g/dL RDW SD 50.8 fl PLT 264 K/uL MPV 7.9 fl DIFF TYPE MANUAL nRBC 1 (H) /100WBC Neutrophils Manual 70 % Bands 4 % METAMYELOCYTES 4 % Lymphocytes Manual 14 % Monocytes Manual 7 % Eosinophils Manual 1 % Neutrophils Absolute 21.30 (H) K/uL Bands Manual 1.22 (H) K/uL Metamyelocytes Absolute 1.22 (H) K/uL Lymphocytes Absolute 4.26 (H) K/uL Monocytes Absolute 2.13 (H) K/uL Eosinophils Absolute 0.30 K/uL Platelet Estimate ADEQUATE MORPHOLOGY 1+ Basic metabolic panel [[id number]] (Abnormal) Collected: 04/17/19626 Specimen: Blood from Blood Updated: 04/17/19654 SODIUM 135 mmol/L POTASSIUM 5.2 (H) mmol/L CHLORIDE 109 mmol/L CO2 23 mmol/L ANION GAP AGAP 8 mmol/L GLUCOSE 102 (H) mg/dL BUN 58 (H) mg/dL CREATININE 1.95 (H) mg/dL BUN/CREAT 30 CALCIUM 7.7 (L) mg/dL EGFR 27 (L) mL/min/1.73m2 POCT glucose [[id number]] (Abnormal) Collected: 04/17/19522 Updated: 04/17/19 0549 GLUCOSE,POC SCREEN 102 (H) mg/dL Blood Culture Set 1 [[id number]] Collected: 04/15/19 1258 Specimen: Blood from Blood Line Draw Updated: 04/17/19536 Specimen Description BLOOD, LINE DRAW SPECIAL REQUESTS ART LINE HAND CULTURE NO GROWTH 2 DAYS Blood Culture Set 2 [[id number]] Collected: 04/15/19 1255 Specimen: Blood from Blood Line Draw Updated: 04/17/19536 Specimen Description BLOOD, LINE DRAW SPECIAL REQUESTS art line CULTURE NO GROWTH 2 DAYS Sodium [[id number]] Collected: 04/17/19 0235 Specimen: Blood from Blood Updated: 04/17/19 0309 SODIUM 135 mmol/L POCT glucose [[id number]] (Abnormal) Collected: 04/16/192108 Updated: 04/16/19 2319 GLUCOSE,POC SCREEN 136 (H) mg/dL Sodium [[id number]] Collected: 04/16/192026 Specimen: Blood from Blood Updated: 04/16/192105 SODIUM 135 mmol/L Hepatitis panel, chronic [[id number]] (Abnormal) Collected: 04/16/19 1458 Updated: 04/16/192007 Hep A Total Ab REACTIVE (A) HEP B SURFACE AG NON REACTIVE HEP B CORE AB,TOTAL NON REACTIVE HEP B SURFACE ANTIBODY <0.35 IV HEPATITIS C REACTIVE (A) HEPATITIS INTERP Current or past HAV infection and current or past HCV infection. No sero logic evidence of HBV infection or vaccination. POCT glucose [[id number]] (Abnormal) Collected: 04/16/19 1518 Updated: 04/16/19 1922 GLUCOSE,POC SCREEN 177 (H) mg/dL HCV RNA quant by PCR [[id number]] Collected: 04/16/19 145 Specimen: Blood Updated: 04/16/19 1631 Hepatitis B Virus DNA Quant PCR [[id number]] Collected: 04/16/191457 Updated: 04/16/19 1631 Sodium [[id number]] Collected: 04/16/19 1434 Specimen: Blood Updated: 04/16/19 1455 SODIUM 135 mmol/L POCT glucose [[id number]] (Abnormal) Collected: 04/16/19 1202 Updated: 04/16/19 1212 GLUCOSE,POC SCREEN 135 (H) mg/dL CBC w/auto diff (reflex to manual) [[id number]] (Abnormal) Collected: 04/16/19 0745 Specimen: Blood from Blood Updated: 04/16/19826 WBC 34.19 (HH) K/uL RBC 3.07 (L) M/uL HGB 8.4 (L) g/dL HCT 26.2 (L) % MCV 85.4 fl MCH 27.2 pg MCHC 31.8 (L) g/dL RDW SD 51.2 fl PLT 268 K/uL MPV 7.7 fl DIFF TYPE MANUAL nRBC 1 (H) /100WBC Neutrophils Manual 74 % Bands 6 % METAMYELOCYTES 4 % MYELOCYTES 5 % Lymphocytes Manual 11 % Neutrophils Absolute 25.30 (H) K/uL Bands Manual 2.05 (H) K/uL Metamyelocytes Absolute 1.37 (H) K/uL Myelocytes Absolute 1.71 (H) K/uL Lymphocytes Absolute 3.76 K/uL Platelet Estimate ADEQUATE MORPHOLOGY NORMAL Basic metabolic panel [[id number]] (Abnormal) Collected: 04/16/19744 Specimen: Blood from Blood Updated: 04/16/19823 SODIUM 135 mmol/L POTASSIUM 4.7 mmol/L CHLORIDE 107 mmol/L CO2 23 mmol/L ANION GAP AGAP 10 mmol/L GLUCOSE 173 (H) mg/dL BUN 63 (H) mg/dL CREATININE 2.42 (H) mg/dL BUN/CREAT 26 CALCIUM 7.1 (L) mg/dL EGFR 21 (L) mL/min/1.73m2 Vancomycin,Random [[id number]] Collected: 04/16/19744 Specimen: Blood from Blood Updated: 04/16/19823 VANCOMYCIN,RANDOM 15.9 ug/mL Blood Culture Set 2 [[id number]] (Abnormal) (Susceptibility) Collected: 04/13/192023 Specimen: Blood from Blood Line Draw Updated: 04/16/19651 Specimen Description BLOOD, LINE DRAW SPECIAL REQUESTS CL BLUE PORT GRAM STAIN GRAM POSITIVE COCCI IN CHAINS (A) GRAM STAIN SEEN IN AEROBIC BOTTLE GRAM STAIN SMEAR RESULTS CALLED TO AND READ BACK BY: GRAM STAIN KINGSLEY ON 10RP AT 1830 ON 04/14/2019 CULTURE BETA HEMOLYTIC GROUP G STREPTOCOCCUS (A) GROWTH IN ONE OF TWO BOTTLES (A) TIME TO DETECTION: 0.84 DAYS POCT glucose [[id number]] (Abnormal) Collected: 04/15/19 1303 Updated: 04/16/19 0643 GLUCOSE,POC SCREEN 169 (H) mg/dL POCT glucose [[id number]] (Abnormal) Collected: 04/15/19 1130 Updated: 04/16/19 0643 GLUCOSE,POC SCREEN 153 (H) mg/dL POCT glucose [[id number]] (Abnormal) Collected: 04/15/19 0856 Updated: 04/16/19 0643 GLUCOSE,POC SCREEN 127 (H) mg/dL POCT glucose [[id number]] (Abnormal) Collected: 04/16/19 0542 Updated: 04/16/19 0636 GLUCOSE,POC SCREEN 208 (H) mg/dL POCT glucose [[id number]] (Abnormal) Collected: 04/15/192106 Updated: 04/16/19635 GLUCOSE,POC SCREEN 284 (H) mg/dL Sodium [[id number]] (Abnormal) Collected: 04/16/19 024 Specimen: Blood from Blood Updated: 04/16/19313 SODIUM 133 (L) mmol/L Sodium [[id number]] (Abnormal) Collected: 04/15/192024 Specimen: Blood Updated: 04/15/192054 SODIUM 133 (L) mmol/L CBC: Lab Results Component Value Date WBC 28.77 (H) 04/18/2019 RBC 3.16 (L) 04/18/2019 HGB 9.0 (L) 04/18/2019 HCT 27.9 (L) 04/18/2019 MCV 88.5 04/18/2019 MCH 28.5 04/18/2019 MCHC 32.2 04/18/2019 RDW 51.6 04/18/2019 PLT 278 04/18/2019 MPV 8.4 04/18/2019 DIFFTYPE MANUAL 04/18/2019 CMP: Lab Results Component Value Date NA 131 (L) 04/18/2019 K 5.7 (H) 04/18/2019 CL 100 04/18/2019 CO2 23 04/18/2019 ANIONGAP 13 04/18/2019 GLUF 177 (H) 04/18/2019 BUN 48 (H) 04/18/2019 CREATININE 1.74 (H) 04/18/2019 CREATININE 3.11 (A) 11/17/2017 BCR 28 04/18/2019 CA 7.9 (L) 04/18/2019 CA 9.4 07/01/2017 PROT 5.7 (L) 04/13/2019 ALB 2.6 (L) 04/13/2019 GLOB 3.1 04/13/2019 BILITOT 0.9 04/13/2019 ALP 291 (H) 04/13/2019 AST 50 (H) 04/13/2019 ALT 32 04/13/2019 EGFR 31 (L) 04/18/2019 Magnesium: Lab Results Component Value Date MG 2.2 04/15/2019 Phosphorus: Lab Results Component Value Date PHOS 4.8 04/15/2019 PT/INR: Lab Results Component Value Date INR 2.2 04/14/2019 Last 3 Troponin: Lab Results Component Value Date TROPONINI 1.21 (HH) 10/05/2012 TROPONINI 2.00 (HH) 10/05/2012 TROPONINI 0.35 (H) 10/22/2011 ABG: Lab Results Component Value Date POCPH 7.368 04/14/2019 POCPCO 36 04/14/2019 POCPO2 105 04/14/2019 POCHCO 21 (L) 04/14/2019 POCTCO2 22 (L) 04/14/2019 POCBD 5 (H) 04/14/2019 POCSO2 98 04/14/2019 POCCMT Modified Chin Test passed 04/14/2019 Xr Chest 1 View Result Date: 04/18/2019 CHEST ONE VIEW CLINICAL INFORMATION: Pneumonia and sepsis. COMPARISON: XR CHEST 1 VIEW (03/20); ECHO OUTSIDE INTERPRETATION (03/24/2017); XR CHEST 1 VIEW (01/05/2016); FINDINGS: Prev ious left IJ catheter is been removed. No pneumothorax. Single lead AICD with battery pack over the left chest with lead extending vertically into the precordial region. Resolution of previous pulmonary venous congestion and interstitial edema. Subtle residual effusions a re suspected. Heart size is normal. 1. Resolution previous CHF and pulmonary edema perhaps with subtle residual effusions. Sign ed by: Emy Rivers Shawn Sign Date/Time: 04/18/2019 1:27 PM X-ray Chest 1 View Result Date: 04/13/2019 CHEST ONE VIEW CLINICAL INFORMATION: Central line placement COMPARISON: ECHO OUTSIDE INTERP RETATION (03/24/2017); XR CHEST 1 VIEW (01/05/2016); XR FLUORO OVER 1 HOUR (01/02/2016); FINDING S: Poorly defined opacity in the left lung base. Right lung is clear. Costophrenic angles a re clear. No pneumothorax. Cardiac silhouette is unremarkable. Left IJ central venous cat heter terminates in the mid SVC. Poorly defined opacity in the left lung base, which may represent atelectasis or consolidat ion. Left IJ central venous catheter terminates in the mid SVC. Signed by: Emy Romero John Sign Date/Time: 04/13/2019 7:44 PM Echo Cardiac Adult With Contrast Result Date: 04/15/2019 Patient Name: Alondra Caballero Date of : 1970 Performing P hysician: Mari Mcdaniel INDICATIONS abnormal ekg CONCLUSIONS 1. This was a technically diff icult study with suboptimal views. 2. The left ventricle is moderately dilated, moderately i mpaired systolic function, akinetic anterior, anteroseptal, inferoseptal and apical segments , EF 30-35%. 3. Pseudonormal LV diastolic filling pattern, consistent with elevated LA press ure and moderate dysfunction (Grade II). 4. The right ventricle is normal in size and functi on. 5. There is mild pulmonary hypertension. 6. There is no pericardial effusion. FINDINGS - ------- ECG rhythm: Sinus rhythm. Study: A 2-dimensional transthoracic echocardiogram with m -mode, spectral and color flow Doppler was perfomed. Study: This was a technically difficult study with suboptimal views. Left Ventricle: Overall left ventricular systolic function is moderate-severely impaired with, an EF between 30 - 35 %. Left Ventricle: The left ventricle is moderately dilated. Left Ventricle: Left ventricular wall thickness is normal. There thad ears to be akinesis of the mid to distal septal wall and apex. Left Ventricle: Pseudonormal LV diastolic filling pattern, consistent with elevated LA pressure and moderate dysfunction (Grade II). Right Ventricle: The right ventricle is normal in size and function. Left Atrium : The left atrium is moderately dilated. Right Atrium: The right atrium is mildly enlarged. Aortic Valve: The aortic valve is trileaflet. Aortic Valve: There is mild aortic valve scler osis without stenosis. Aortic Valve: There is no evidence of aortic regurgitation. Mitral Va lve: There is trace mitral regurgitation. Mitral Valve: Mild mitral annular calcification pr esent. Tricuspid Valve: The tricuspid valve appears structurally normal. Tricuspid Valve: Mi ld tricuspid regurgitation present. Tricuspid Valve: There is mild pulmonary hypertension. T ricuspid Valve: The right ventricular systolic pressure (pulmonary artery systolic pressure) , as measured by Doppler, is 35.75mmHg. Pulmonic Valve: The pulmonic valve was not well visu alized. Pericardium: There is no pericardial effusion. Pericardium: No pleural effusion seen . IVC/Hepatic Veins: The IVC is normal size (1.5-2.5cm) and collapses >50% with sniff, consi stent with central venous pressures of 3 mmHg. Aorta: The aortic root and ascending aorta ar e normal in size. Contrast: Poor visualization. Definity was used to opacify the left ventri cular chamber and improve delineation of the endocardial border. MEASUREMENTS Ao asc: 3.26 cm Ao sinus: 3.12 cm IVC: 1.67 cm EDV(Teich): 215.22 ml IVSd: 0.77 cm LVIDd: 6.48 cm LVPWd: 1.09 cm LVOT Diam: 2.11 cm %FS: 32.20 % EF(Teich): 59.26 % ESV(Teich): 87.67 ml IVSs: 1.21 cm LVIDs: 4.39 cm LVPWs: 1.53 cm SV(Teich): 127.54 ml RA Major: 5.50 cm RVIDd: 3.89 cm LVEF MOD A4C: 26.54 % SV MOD A4C: 42.28 ml LVED V MOD A4C: 159.26 ml LVLd A4C: 8.45 cm LVESV MOD A4C: 116.98 ml LVLs A4C: 8.51 cm LA ESV(A-L): 110.56 ml LAESV Index (A-L): 45.68 ml/m2 LAAs A2C: 26.90 cm2 LAESV A-L A2C: 88.69 ml LALs A2C: 6.92 cm LAAs A4C: 33.33 cm2 LAESV A-L A4C: 136.96 ml LALs A4C: 6.88 cm TAPSE: 2.14 cm AV maxP.27 mmHg AV meanP.11 mmHg AV Vmax: 1.60 m/s A V Vmean: 1.16 m/s AV VTI: 31.46 cm ALMITA Vmax: 2.22 cm2 ALMITA (VTI): 2.34 cm2 AVAI Vmax: 0.00 cm2/m2 AVAI (VTI): 0.00 cm2/m2 LVCI Dopp: 2.70 l/minm2 LVCO Dopp: 6.54 l/min H R: 88.69 BPM LVOT maxP.08 mmHg LVOT meanP.32 mmHg LVSI Dopp: 30.50 ml/m2 LVS V Dopp: 73.83 ml LVOT Vmax: 1.01 m/s LVOT Vmean: 0.73 m/s LVOT VTI: 20.94 cm MV A Ve l: 1.30 m/s MV DecT: 254.70 ms MV E Delia: 1.44 m/s MV E/A Ratio: 1.10 MV PHT: 79.98 ms MVA By PHT: 2.75 cm2 MV maxP.11 mmHg MV meanP.43 mmHg MV Vmax: 1.81 m/s MV Vmean: 1.11 m/s MV VTI: 42.30 cm MVA (VTI): 1.74 cm2 Septal e': 0.03 m/s Septal E/e': 36.41 Lateral e': 0.05 m/s Lateral E/e': 25.65 HR: 90.60 BPM PV maxP.38 mmHg PV meanP.76 mmHg PV Vmax: 0.91 m/s PV Vmean: 0.63 m/s PV VTI: 19.84 cm RAP: 8 mmHg RV S': 0.08 m/s RVSP: 35.75 mmHg TR maxP.75 mmHg TR Vmax: 2.63 m/s So nographer: FLEX Authenticated by: Mari Mcdaniel Report Date/Time: 04-15-2019 10:55:13 1. This was a technically difficult study with suboptimal views. 2. The left ventricle is m oderately dilated, moderately impaired systolic function, akinetic anterior, anteroseptal, i nferoseptal and apical segments, EF 30-35%. 3. Pseudonormal LV diastolic filling pattern, co nsistent with elevated LA pressure and moderate dysfunction (Grade II). 4. The right ventric le is normal in size and function. 5. There is mild pulmonary hypertension. 6. There is no p ericardial effusion. PROBLEM LIST Principal Problem: Septic shock (HCC) Active Problems: Morbid obesity (HCC) CHF (congestive heart failure) (HCC) CKD (chronic kidney disease), stage IV Metabolic acidosis ICD (implantable cardioverter-defibrillator), single, 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, with long-term current use of insulin (HCC) Ischemic cardiomyopathy Sepsis (HCC) Gangrene of extremity (HCC) Hyperkalemia Lactic acidosis Hyponatremia Group G streptococcal infection Skin ulcer of finger, limited to breakdown of skin (HCC) Hyperkalemia ASSESSMENT & PLAN Septic shock resolved and was likely secondary to right leg wet gangrene and streptococcal bacteremia secondary to it status post right above-knee amputation by Dr. Cook plan continue the patient on Rocephin IV daily through April 27 PICC line placed White count trending downward Acute pain postop involving the right above-knee amputation site plan increase gabapentin 300 mg at night and 200 mg in the morning And continue on oxycodone as needed Diabetes mellitus insulin-dependent blood glucose reasonably controlled Plan continue the patient on Levemir 25 units twice daily, lispro 12 units with meals and i nsulin sliding scale Chronic systolic CHF well compensated with most recent ejection fraction of 35% Plan continue on metoprolol and Torsemide Hold losartan due to hyperkalemia Hyperkalemia likely secondary to losartan which has discontinued and give 1 dose of Kayexal ate, repeat BMP later today Acute renal failure on chronic kidney disease stage IV resolved Anemia: Likely secondary anemia of chronic kidney disease otherwise complete iron panel B12 folate are within normal limits and hemoglobin slightly improving from yesterday up to 9 to day from 8.6 suggest no active bleed Plan start the patient on Neupogen and check CBC periodically Bilateral knee amputation: Patient will likely benefit from rehabilitation DVT prophylaxis on heparin MARK CARRANZA MD 04/18/[address] PA-C - 04/18/2019 12:17 PM PDT Progress Notes by Anderson Lopez PA-C at 04/18/19 6768 Author: Anderson Lopez PA-C Service: Vascular Surgery Author Type: Physician Pancake Professional - Certified Filed: 04/18/19 0188 Date of Service: 04/18/191216 Status: Signed Chief Pharmacist: Anderson Lopez PA-C (Physician Pancake Professional - Certified) [facility] Service: Vascular Surgery Progress Note Hospital Day: LOS: 5 days Post-Op Day: 4 SUBJECTIVE Patient Summary: The patient is a 49 y.o. female with significant past medical histo ry of CAD, CHF, previous [place], DMII uncontrolled, HTN, HLD, meth induced seizures, s/p left BK A and non healing wounds of right lower extremity who presented to [facility] an d was found to be in septic shock. She was transferred to [facility] ICU on 04/13/2019. She has a h istory of a left BKA. She reports history of non healing wounds on her right leg with purule nt drainage and bone exposure. Vascular Surgery has been consulted for evaluation and treatm ent of her right lower extremity wounds and for consideration of amputation. She underwent right AKA on 04/14/2019. Events Overnight: POD 4. No acute events overnight. Off pressors. Scheduled Medications allopurinol 300 mg Oral Daily aspirin 81 mg Oral Daily atorvastatin 80 mg Oral Daily cefTRIAXone 2 g Intravenous Q24H epoetin poppy 10,000 Units Subcutaneous Once per day on Tue gabapentin 100 mg Oral TID heparin 5,000 Units Subcutaneous 3 times per day insulin detemir 25 Units Subcutaneous BID insulin lispro (human) 0-10 Units Subcutaneous TID AC insulin lispro (human) 0-5 Units Subcutaneous Nightly insulin lispro (human) 12 Units Subcutaneous TID AC isosorbide dinitrate 5 mg Oral BID metoprolol 25 mg Oral Daily nystatin Topical BID sodium bicarbonate 1,300 mg Oral TID sodium chloride 10 mL Intravenous 2 times per day torsemide 20 mg Oral Daily venlafaxine 150 mg Oral Daily with breakfast Continuous Infusions dextrose PRN Medications acetaminophen OR acetaminophen, albuterol, dextrose, dextrose, dextrose, docusate sodiu m OR docusate, glucagon, glucagon, ondansetron OR ondansetron, oxyCODONE OR oxyC ODONE OR oxyCODONE, petrolatum, sodium chloride OBJECTIVE Vital Signs: BP 121/54 (BP Location: Right forearm) | Pulse 95 | Temp 98.4 F (36.9 C) (Oral) | Re sp 18 | Ht 1.778 m (5' 10") | Wt 123.4 kg (272 lb) | LMP 10/04/2011 | SpO2 96% | BMI 39 .03 kg/m Constitutional: Well nourished, no signs of distress HENT: Non icteric sclerae, oropharynx clear. Normocephalic and atraumatic Cardiovascular: Normal rate, regular rhythm Pulmonary/Chest: No respiratory distress Abdominal: Soft. No abdominal distension or tenderness. No masses palpated and no hepatomeg lexi. No organomegaly. No abdominal pulsatile mass noted Musculoskeletal: Normal range of motion. No evidence of arthritis. Gangrene wounds to bilat eral thumbs. Extremities: No cyanosis or clubbing. Neurological: She is alert and oriented. VASCULAR: Palpable femoral pulse bilaterally. Left BKA present. Right leg AKA with prevena dressing in place and holding suction. Prevena dressing replaced with dry dressing. Wound is clean and intact. Rowena in place with no drainage or erythema. DATA CBC: Lab Results Component Value Date WBC 28.77 (H) 04/18/2019 RBC 3.16 (L) 04/18/2019 HGB 9.0 (L) 04/18/2019 HCT 27.9 (L) 04/18/2019 MCV 88.5 04/18/2019 MCH 28.5 04/18/2019 MCHC 32.2 04/18/2019 RDW 51.6 04/18/2019 PLT 278 04/18/2019 MPV 8.4 04/18/2019 DIFFTYPE MANUAL 04/18/2019 BMP: Lab Results Component Value Date NA 131 (L) 04/18/2019 K 5.7 (H) 04/18/2019 CL 100 04/18/2019 CO2 23 04/18/2019 ANIONGAP 13 04/18/2019 GLUF 177 (H) 04/18/2019 BUN 48 (H) 04/18/2019 CREATININE 1.74 (H) 04/18/2019 CREATININE 3.11 (A) 11/17/2017 BCR 28 04/18/2019 CA 7.9 (L) 04/18/2019 CA 9.4 07/01/2017 EGFR 31 (L) 04/18/2019 PROBLEM LIST Principal Problem: Septic shock (HCC) Active Problems: Morbid obesity (HCC) CHF (congestive heart failure) (HCC) CKD (chronic kidney disease), stage IV Metabolic acidosis ICD (implantable cardioverter-defibrillator), single, 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 Preve na dressing taken down, wound examined and is healing well. Dry dressing placed and will nee d daily dressing changes. Follow up in Vascular clinic in 2-3 weeks for wound check. Patient will need to go to rehab facility to help with conditioning and strength. Code Status: Full Code Anderson Lopez PA-C 04/18/2019 rsales, Char Giraldo MD - 04/18/2019 11:56 AM PDTFormatting of this note might be different from the o riginal. Progress Notes by Char Veliz MD at 04/18/19 1156 Author: Char Veliz MD Service: Infectious Disease Author Type: Physici an Filed: 04/18/19 1182 Date of Service: 04/18/191155 Status: Signed Chief Pharmacist: Char Veliz MD (Physician) [facility] Service: Infectious Diseases Progress Note Hospital Day: LOS: 5 days Post-Op Day: 4 Days Post-Op CC: follow up on infection and antibiotic therapy SUBJECTIVE/OVERNIGHT EVENTS The patient remains on treatment with antibiotics. No acute events over last 24 hours are reported. REVIEW OF SYSTEMS MEDICATIONS: Reviewed PHYSICAL EXAM Vital Signs: BP 112/55 (BP Location: Right forearm) | Pulse 91 | Temp 98.3 F (36.8 C) (Oral) | Re sp 18 | Ht 1.778 m (5' 10") | Wt 123.4 kg (272 lb) | LMP 10/04/2011 | SpO2 98% | BMI 39 .03 kg/m Focused exam shows: General exam: No distress, cooperative with exam. HEENT: sclera non-icteric, no visible oral thrush Cardiovascular: regular rate and rhythm Lungs: no tachypnea, clear breath sounds. Mildly decreased at bases Abdomen: no distension, bowel sounds present Extremities/MSK: R AKA bandaged; L BKA Skin: No lesions, normal turgor Neurologic: Awake, cranial nerves intact. Follows commands. LABS: MICRO Blood Culture Set 1 [[id number]] Collected: 04/15/19 1258 Order Status: Completed Lab Status: Preliminary result Updated: 04/17/1937 Specimen: Blood from Blood Line Draw Specimen Description BLOOD, LINE DRAW SPECIAL REQUESTS ART LINE HAND CULTURE NO GROWTH 2 DAYS Blood Culture Set 2 [[id number]] Collected: 04/15/195 Order Status: Completed Lab Status: Preliminary result Updated: 04/17/1937 Specimen: Blood from Blood Line Draw Specimen Description BLOOD, LINE DRAW SPECIAL REQUESTS art line CULTURE NO GROWTH 2 DAYS Blood Culture Set 2 [[id number]] (Abnormal) Collected: 04/13/192023 Order Status: Completed Lab Status: Final result Updated: 04/16/19 0652 Specimen: Blood from Blood Line Draw Specimen Description BLOOD, LINE DRAW SPECIAL REQUESTS CL BLUE PORT GRAM STAIN GRAM POSITIVE COCCI IN CHAINS (A) GRAM STAIN SEEN IN AEROBIC BOTTLE GRAM STAIN SMEAR RESULTS CALLED TO AND READ BACK BY: GRAM STAIN KINGSLEY ON 10RP AT 1830 ON 04/14/2019 CULTURE BETA HEMOLYTIC GROUP G STREPTOCOCCUS (A) GROWTH IN ONE OF TWO BOTTLES (A) TIME TO DETECTION: 0.84 DAYS Culture & Susceptibility BETA HEMOLYTIC GROUP G STREPTOCOCCUS Antibiotic Sensitivity Microscan Status Ampicillin Sensitive SUSCEPTIBLE Final Method: CELESTINA Cefotaxime Sensitive SUSCEPTIBLE Final Method: CELESTINA Cefotaxime CSF Sensitive SUSCEPTIBLE Final Method: CELESTINA Ceftriaxone CSF Sensitive SUSCEPTIBLE Final Method: CELESTINA Clindamycin Sensitive SUSCEPTIBLE Final Method: CELESTINA Erythromycin Sensitive SUSCEPTIBLE Final Method: CELESTINA Levofloxacin Sensitive SUSCEPTIBLE Final Method: CELESTINA Linezolid Sensitive SUSCEPTIBLE Final Method: CELESTINA PENICILLIN (ORAL) Sensitive SUSCEPTIBLE Final Method: CELESTINA PENICILLIN (PNEUMONIA) Sensitive SUSCEPTIBLE Final Method: CELESTINA PENICILLIN OTHER Sensitive SUSCEPTIBLE Final Method: CELESTINA Penicillin G Sensitive SUSCEPTIBLE Final Method: CELESTINA Tetracycline Sensitive SUSCEPTIBLE Final Method: CELESTINA Vancomycin Sensitive SUSCEPTIBLE Final Method: CELESTINA Wound culture [[id number]] (Abnormal) Collected: 04/13/191923 Order Status: Completed Lab Status: Final result Updated: 04/15/19 1017 Specimen: Wound from Foot Specimen Description FOOT CULTURE 2+ BETA HEMOLYTIC GROUP G STREPTOCOCCUS (A) BETA STREP ORGANISMS ARE PREDICTABLY SUSCEPTIBLE TO PENICILLIN AND CEPHALOSPORINS 2+ MIXED GRAM POSITIVE AND GRAM NEGATIVE RADHA NO FURTHER WORKUP Blood Culture Set 1 [[id number]] Collected: 04/13/191921 Order Status: Completed Lab Status: Preliminary result Updated: 04/15/19722 Specimen: Blood from Blood Line Draw Specimen Description BLOOD, LINE DRAW SPECIAL REQUESTS CENTRAL CULTURE NO GROWTH 2 DAYS MRSA by PCR [[id number]] Collected: 04/13/19 182 Order Status: Completed Lab Status: Final result Updated: 04/13/191937 Specimen: Nasopharyngeal from Nasopharyngeal Culture SOURCE NARES(NOSE) MRSA PCR NEGATIVE Comment: Testing performed at [facility];[address] [place] [address];[place] [address] All labs were reviewed. CBC: Lab Results Component Value Date WBC 28.77 (H) 04/18/2019 RBC 3.16 (L) 04/18/2019 HGB 9.0 (L) 04/18/2019 HCT 27.9 (L) 04/18/2019 MCV 88.5 04/18/2019 MCH 28.5 04/18/2019 MCHC 32.2 04/18/2019 RDW 51.6 04/18/2019 PLT 278 04/18/2019 MPV 8.4 04/18/2019 DIFFTYPE MANUAL 04/18/2019 CMP: Lab Results Component Value Date NA 131 (L) 04/18/2019 K 5.7 (H) 04/18/2019 CL 100 04/18/2019 CO2 23 04/18/2019 ANIONGAP 13 04/18/2019 GLUF 177 (H) 04/18/2019 BUN 48 (H) 04/18/2019 CREATININE 1.74 (H) 04/18/2019 CREATININE 3.11 (A) 11/17/2017 BCR 28 04/18/2019 CA 7.9 (L) 04/18/2019 CA 9.4 07/01/2017 PROT 5.7 (L) 04/13/2019 ALB 2.6 (L) 04/13/2019 GLOB 3.1 04/13/2019 BILITOT 0.9 04/13/2019 ALP 291 (H) 04/13/2019 AST 50 (H) 04/13/2019 ALT 32 04/13/2019 EGFR 31 (L) 04/18/2019 Principal Problem: Septic shock (HCC) Active Problems: Morbid obesity (HCC) CHF (congestive heart failure) (HCC) CKD (chronic kidney disease), stage IV Metabolic acidosis ICD (implantable cardioverter-defibrillator), single, 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 * ASSESSMENT & PLAN The patient is a 49 y.o.-year-old female with the following problems: Septic shock given right lower extremity wet gangrene Group G strep bacteremia Uncontrolled diabetes to Stage IV CKD Hep C ab (+) Recommendations: Continue ceftriaxone for 2 weeks after first negative blood cultures through April 27 Place PICC line PEnding HCV RNA Dictation software, [place], used which may contain error for similar sounding words even af ter review. Personal communication requested for any clarification. Portions of this chart may have been copied from previous notes for continuity of care purp khang Veliz MD Infectious Diseases 04/18/2019 onversi on Transaction, Provider Unknown - 04/18/2019 9:54 AM PDTFormatting of this note might be d ifferent from the original. Case Management by Yuli Guerra RN at 04/18/19953 Author: Yuli Guerra RN Service: (none) Author Type: Registered Nurse Filed: 04/18/19953 Date of Service: 04/18/19953 Status: Signed Chief Pharmacist: Yuli Guerra RN (Registered Nurse) Rounded with Dr Carranza: pt not medically ready for discharge today. onver jessica Transaction, Provider Unknown - 04/18/2019 6:11 AM PDT Nurse Progress Note by Anitra Menard RN at 04/18/19610 Author: Anitra Menard RN Service: Claims Adjuster Crop Author Type: Registered Nurse Filed: 04/18/19610 Date of Service: 04/18/19610 Status: Signed Chief Pharmacist: Anitra Menard RN (Registered Nurse) Pt not longer being followed by sepsis RN as VSS for 24 hr and WBC trending down. Please no eleuterio sepsis RN of any significant changes @ [phone]. ANITRA MENARD RN, BSN, CCRN, CMC, CSC SEPSIS NURSE [facility] Mari Reyna ra, MD - 04/17/2019 8:49 PM PDT Progress Notes by Mari Mcdaniel MD at 04/17/192048 Author: Mari Mcdaniel MD Service: Cardiology Author Type: Physician Filed: 04/17/192050 Date of Service: 04/17/192048 Status: Signed Chief Pharmacist: Mari Mcdaniel MD (Physician) [facility] Service: Cardiology Progress Note Name of International First Officer: Mari Mcdaniel MD I have seen the patient on 04/17/2019, S/P right LE AKA. SUBJECTIVE Denies chest pain. Current Facility-Administered Medications: acetaminophen (TYLENOL) tablet 650 mg, 650 mg, Oral, Q6H PRN, 650 mg at 04/15/19 1012 OR acetaminophen (TYLENOL) suppository 650 mg, 650 mg, Rectal, Q6H PRN, REBECCA Escobar albuterol (PROVENTIL HFA;VENTOLIN HFA) inhaler, 2 puff, Inhalation, Q4H PRN, REBECCA Escobar allopurinol (ZYLOPRIM) tablet 300 mg, 300 mg, Oral, Daily, Altaf Ramires MD, 300 mg at 04/17/19 0929 aspirin chewable tablet 81 mg, 81 mg, Oral, Daily, Altaf Ramires MD, 81 mg at 0853 atorvastatin (LIPITOR) tablet 80 mg, 80 mg, Oral, Daily, Altaf Ramires MD, 80 mg at 04/17/19 0854 cefTRIAXone (ROCEPHIN) IVPB 2 g, 2 g, Intravenous, Q24H, Indra Steve, 2 g at 04/17/19 1428 dextrose 50 % solution 25 mL, 25 mL, Intravenous, PRN, REBECCA Escobar dextrose 50 % solution 50 mL, 50 mL, Intravenous, PRN, REBECCA Escobar docusate sodium (COLACE) capsule 100 mg, 100 mg, Oral, BID PRN OR docusate (COLACE ) 50 mg/5 mL liquid 100 mg, 100 mg, Per OG Tube, BID PRN, REBECCA Escobar gabapentin (NEURONTIN) capsule 100 mg, 100 mg, Oral, TID, Mark Carranza MD, 100 mg at 04/17/191954 heparin (porcine) 5000 unit/mL injection 5,000 Units, 5,000 Units, Subcutaneous, 3 mirna es per day, REBECCA Escobar, 5,000 Units at 04/17/191955 insulin detemir (LEVEMIR) injection 24 Units, 24 Units, Subcutaneous, BID, REBECCA Davila, 24 Units at 04/17/192007 insulin lispro (human) (HUMALOG) injection 13 Units, 13 Units, Subcutaneous, TID AC, [place] REBECCA Armstrong, 13 Units at 04/17/19 0918 insulin lispro (human) (HUMALOG) injection 3-9 Units, 3-9 Units, Subcutaneous, Nightly , REBECCA Escobar, Stopped at 04/17/190 insulin lispro (human) (HUMALOG) injection 6-18 Units, 6-18 Units, Subcutaneous, TID A C, REBECCA Escobar, 6 Units at 04/16/19 183 isosorbide dinitrate (ISORDIL) tablet 5 mg, 5 mg, Oral, BID, Mari Mcdaniel MD, 5 m g at 04/17/191954 losartan (COZAAR) tablet 25 mg, 25 mg, Oral, Daily, Mark Carranza MD, 25 mg at 1954 [START ON 04/18/2019] metoprolol (TOPROL-XL) 24 hr tablet 25 mg, 25 mg, Oral, Daily, Sa katharina Carranza MD metoprolol (TOPROL-XL) 24 hr tablet 25 mg, 25 mg, Oral, Once, Mari Mcdaniel MD nystatin (MYCOSTATIN) powder, , Topical, BID, BryantREBECCA Monge ondansetron (ZOFRAN-ODT) disintegrating tablet 4 mg, 4 mg, Oral, Q6H PRN OR ondans etron (ZOFRAN) injection 4 mg, 4 mg, Intravenous, Q6H PRN, Sheron Armstrong, SALES AND TRAINING SPECIALIST, 4 mg at 0 04/15/19 1012 oxyCODONE (ROXICODONE) immediate release tablet 5 mg, 5 mg, Oral, Q4H PRN, 5 mg at 1954 OR oxyCODONE (ROXICODONE) immediate release tablet 10 mg, 10 mg, Oral, Q4H MN N OR oxyCODONE (ROXICODONE) immediate release tablet 15 mg, 15 mg, Oral, Q4H PRN, REBECCA Tomlinson, 15 mg at 04/16/19 0536 petrolatum (LUBRIFRESH P.M.) ophthalmic ointment, , Both Eyes, PRN, REBECCA Escobar sodium bicarbonate tablet 1,300 mg, 1,300 mg, Oral, TID, Atlaf Ramires MD, 1,300 mg at 04/17/191954 sodium chloride 0.9 % flush 10 mL, 10 mL, Intravenous, PRN, Mari Mcdaniel MD torsemide (DEMADEX) tablet 20 mg, 20 mg, Oral, Daily, Mark Carranza MD, 20 mg at 03/21 venlafaxine (EFFEXOR-XR) 24 hr capsule 150 mg, 150 mg, Oral, Daily with breakfast, Sal Ramires MD, 150 mg at 04/17/19 0853 OBJECTIVE Vital Signs: BP 111/59 (BP Location: Right forearm) | Pulse 103 | Temp 98.5 F (36.9 C) (Oral) | R bean 18 | Ht 1.778 m (5' 10") | Wt 123.4 kg (272 lb) | LMP 10/04/2011 | SpO2 99% | BMI 3 9.03 kg/m Intake/Output Summary (Last 24 hours) at 04/17/192049 Last data filed at 04/17/19 1155 Gross per 24 hour Intake 1120 ml Output 3300 ml Net -2180 ml Cardiovascular: Regular rhythm, S1 normal and S2 normal. No murmur heard. Pulses: Radial pulses are 2+ on the right side, and 2+ on the left side. Pulmonary/Chest: Effort normal and breath sounds normal. No wheezes. No rales. Abdominal: Soft. No tenderness. Musculoskeletal: Left BKA, right AKA. Neurological: Alert. Sleepy. Skin: Warm and dry. DATA Recent Labs Lab 04/17/19 1447 04/17/19 1130 04/17/19 0627 04/16/19 0745 04/15/19 0208 04/14/19 1525 04/14/19 0409 NA 133* 133* 135 < > 135 < > 132* < > 130* < > 127* K -- -- 5.2* -- 4.7 -- 4.7 -- 4.9 -- 4.8 CO2 -- -- 23 -- 23 -- 21* -- -- -- 22* BUN -- -- 58* -- 63* -- 75* -- -- -- 83* CREATININE -- -- 1.95* -- 2.42* -- 2.77* -- -- -- 3.6* EGFR -- -- 27* -- 21* -- 18* -- -- -- 13* MG -- -- -- -- -- -- 2.2 -- 2.1 -- 2.4 < > = values in this interval not displayed. Recent Labs Lab 04/17/19 0604/16/19 0745 04/15/19 0208 WBC 30.43* 34.19* 54.49* HGB 8.6* 8.4* 9.5* HCT 26.9* 26.2* 28.9* MCV 86.0 85.4 87.0 PLT 264 268 330 Recent Labs Lab 04/14/19 0409 INR 2.2 Lab Results Component Value Date CHOL 164 11/21/2018 TRIG 354 (A) 11/21/2018 LDL 60 11/21/2018 HDL 33 11/21/2018 GLUF 102 (H) 04/17/2019 HGBA1C 6.6 (H) 04/14/2019 TSH 5.33 (A) 04/02/2015 EK04/13/2019 Reviewed showed normal sinus rhythm, RBBB, poor R wave progression. Last Echo: 04/13/2019 Last Echo, 03/24/2017 Normal LV size, with [...] ASSESSMENT & PLAN Patient is 49 y.o. 1. Right lower Ext wet gangrenous, S/P LE AKA. 2. Coronary artery disease. 3. Leukocytosis improving. 4. Ischemic cardiomyopathy. EF 30-35%. 5. Diabetes mellitus insulin dependent. 6. Acute on chronic kidney disease. 7. Hyperkalemia. 8. Anemia, likely of chronic disease. 9. Morbid obesity. 10. Tachycardia. Recommendations: EF still in the 3--35% range, known akinetic anterior wall and apical segments. Has known totally occluded LAD. Will start medical therapy for cardiomyopathy. Isosorbide 5 mg bid. Continue with metoprolol succinate 25 mg and titrate up as tolerated. Continue ABx. Will continue following. Medical management by the hospitalist team. Code Status: Full Code Mari Mcdaniel MD 04/17/2019 Mark England MD - 04/17/2019 6:37 PM PDT Progress Notes by Mark Carranza MD at 04/17/191836 Author: Mark Carranza MD Service: Hospitalist Author Type: Physician Filed: 04/17/19 191 Date of Service: 04/17/191836 Status: Signed Chief Pharmacist: Mark Carranza MD (Physician) Hospitalist Progress Note Alondra Svitlanapatricia Caballero 49 y.o. [id number] female DANIEL Jones [facility] Day: LOS: 4 days Patient Summary: 49-year-old female with past medical history of methamphetamine abus e stopped 8 years ago, diabetes mellitus type 2 insulin-dependent, chronic kidney disease st age IV, coronary disease status post cardiac stent to left circumflex, chronic total occlude d proximal LAD, CHF with ejection fraction 35 %, history of left BKA who was transferred fro [facility] with worsening swelling of the right leg, pain, right foot ulcer wi th purulent discharge, necrotic tissue found to have a white count of 50,000, lactic acid of 1.9, creatinine of 3.78, potassium of 6.5, sodium of 122 when patient started on vancomycin as well as Zosyn shortly after arrival patient develop septic shock and was given 3 L of no rmal saline bolus and started on levophed after which the patient was transferred to ICU for higher level of care. Dr. Cook from vascular surgery consulted patient underwent right above-knee amputation for g angrene of right lower extremity with sepsis. Patient blood culture grew group G strep to c occal and antibiotics narrowed down to Rocephin on 16 April IV through April 27. Patient had a echocardiogram which showed ejection fraction of 30 to 35% and pseudo-normal LV diastolic filling pattern grade 2 dysfunction and no evidence of endocarditis SUBJECTIVE and Events Overnight: Patient seen and examine. No acute over night event. Patient was complaining of 5 out of 1 0 pain at right above-knee amputation site otherwise denied any chest pain no shortness of b reath no nausea no vomiting no abdominal pain no diarrhea. Scheduled Medications allopurinol 300 mg Oral Daily aspirin 81 mg Oral Daily atorvastatin 80 mg Oral Daily cefTRIAXone 2 g Intravenous Q24H gabapentin 100 mg Oral TID heparin 5,000 Units Subcutaneous 3 times per day insulin detemir 24 Units Subcutaneous BID insulin lispro (human) 13 Units Subcutaneous TID AC insulin lispro (human) 3-9 Units Subcutaneous Nightly insulin lispro (human) 6-18 Units Subcutaneous TID AC isosorbide dinitrate 5 mg Oral BID [START ON 04/18/2019] metoprolol 25 mg Oral Daily nystatin Topical BID sodium bicarbonate 1,300 mg Oral TID venlafaxine 150 mg Oral Daily with breakfast Continuous Infusions PRN Medications acetaminophen OR acetaminophen, albuterol, dextrose, dextrose, docusate sodium OR d ocusate, ondansetron OR ondansetron, oxyCODONE OR oxyCODONE OR oxyCODONE, petrol atum, sodium chloride 0.9 % Allergy: Allergies Allergen Reactions Sulfacetamide Hives Sulfamethoxazole-Trimethoprim Hives Demerol [Meperidine] Rash Patient has tolerated fentanyl in house Latex Other (See Comments) Hives Methadone Other (See Comments) Stomach pains,shaky Sulfa Antibiotics Rash Vicodin [Hydrocodone-Acetaminophen] Rash OBJECTIVE Vital Signs: BP 122/63 (BP Location: Right forearm) | Pulse 103 | Temp 98.3 F (36.8 C) (Oral) | R bean 18 | Ht 1.778 m (5' 10") | Wt 123.4 kg (272 lb) | LMP 10/04/2011 | SpO2 96% | BMI 3 9.03 kg/m Temp: [98.2 F (36.8 C)-98.8 F (37.1 C)] 98.3 F (36.8 C) (04/17 1537) BP: (110-144)/(53-64) 122/63 (04/17 1537) Heart Rate: [103-110] 103 (04/17 1537) Resp: [18-20] 18 (04/17 1537) SpO2: [95 %-96 %] 96 % (04/17 1537) Height: [177.8 cm (5' 10")] 177.8 cm (5' 10") (04/17 1537) Weight: [123.4 kg (272 lb)] 123.4 kg (272 lb) (04/17 1537) BMI (Calculated): [39.1] 39.1 (04/17 1537) I&O Detailed Table: Intake/Output Summary (Last 24 hours) at 04/17/19 1837 Last data filed at 04/17/19 1155 Gross per 24 hour Intake 1120 ml Output 3300 ml Net -2180 ml Hemodynamics Last 24hrs: Examination: Constitutional: Alert and oriented to person, place, and time. Cardiovascular: Normal rate, regular rhythm, tachycardia normal heart sounds and intact dis raven pulses. Exam reveals no gallop and no friction rub. No murmur heard. Pulmonary/Chest: Effort normal and breath sounds normal. No stridor. No respiratory distres s. no wheezes. no rales. exhibits no tenderness. Abdominal: Soft. Bowel sounds are normal. exhibits no distension and no mass. There is no t enderness. There is no rebound and no guarding. Musculoskeletal: Normal range of motion.exhibits no tenderness. exhibits left BKA and righ t AKA, surgical dressing in place at right AKA site. Neurological: Alert and oriented to person, place, and time. Has normal reflexes. Except left BKA and right AKA Skin: Skin is warm and dry. No rash noted. No erythema. No pallor. Psychiatric: Has a normal mood and affect. Behavior is normal. Judgment normal. Laboratory: Glucose: Results Procedure Component Value Units Date/Time Sodium [[id number]] (Abnormal) Collected: 04/17/19 1447 Specimen: Blood Updated: 04/17/19 1513 SODIUM 133 (L) mmol/L POCT glucose [[id number]] (Abnormal) Collected: 04/17/19 1201 Updated: 04/17/19 1443 GLUCOSE,POC SCREEN 118 (H) mg/dL Sodium [[id number]] (Abnormal) Collected: 04/17/19 1130 Specimen: Blood Updated: 04/17/19 1148 SODIUM 133 (L) mmol/L Pathologist consult [[id number]] Collected: 04/13/19 1922 Updated: 04/17/19 1032 Pathologist Consult -- POCT glucose [[id number]] (Abnormal) Collected: 04/17/19 0915 Updated: 04/17/19 0935 GLUCOSE,POC SCREEN 136 (H) mg/dL CBC w/auto diff (reflex to manual) [[id number]] (Abnormal) Collected: 04/17/19 0627 Specimen: Blood from Blood Updated: 04/17/19 0739 WBC 30.43 (HH) K/uL RBC 3.13 (L) M/uL HGB 8.6 (L) g/dL HCT 26.9 (L) % MCV 86.0 fl MCH 27.6 pg MCHC 32.1 g/dL RDW SD 50.8 fl PLT 264 K/uL MPV 7.9 fl DIFF TYPE MANUAL nRBC 1 (H) /100WBC Neutrophils Manual 70 % Bands 4 % METAMYELOCYTES 4 % Lymphocytes Manual 14 % Monocytes Manual 7 % Eosinophils Manual 1 % Neutrophils Absolute 21.30 (H) K/uL Bands Manual 1.22 (H) K/uL Metamyelocytes Absolute 1.22 (H) K/uL Lymphocytes Absolute 4.26 (H) K/uL Monocytes Absolute 2.13 (H) K/uL Eosinophils Absolute 0.30 K/uL Platelet Estimate [facility] 1+ Basic metabolic panel [[id number]] (Abnormal) Collected: 04/17/19626 Specimen: Blood from Blood Updated: 04/17/19654 SODIUM 135 mmol/L POTASSIUM 5.2 (H) mmol/L CHLORIDE 109 mmol/L CO2 23 mmol/L ANION GAP AGAP 8 mmol/L GLUCOSE 102 (H) mg/dL BUN 58 (H) mg/dL CREATININE 1.95 (H) mg/dL BUN/CREAT 30 CALCIUM 7.7 (L) mg/dL EGFR 27 (L) mL/min/1.73m2 POCT glucose [[id number]] (Abnormal) Collected: 04/17/19522 Updated: 04/17/19 0549 GLUCOSE,POC SCREEN 102 (H) mg/dL Blood Culture Set 1 [[id number]] Collected: 04/15/19 1258 Specimen: Blood from Blood Line Draw Updated: 04/17/19536 Specimen Description BLOOD, LINE DRAW SPECIAL REQUESTS ART LINE HAND CULTURE NO GROWTH 2 DAYS Blood Culture Set 2 [[id number]] Collected: 04/15/19 1255 Specimen: Blood from Blood Line Draw Updated: 04/17/1937 Specimen Description BLOOD, LINE DRAW SPECIAL REQUESTS art line CULTURE NO GROWTH 2 DAYS Sodium [[id number]] Collected: 04/17/19 0235 Specimen: Blood from Blood Updated: 04/17/19 0309 SODIUM 135 mmol/L POCT glucose [[id number]] (Abnormal) Collected: 04/16/192108 Updated: 04/16/19 2319 GLUCOSE,POC SCREEN 136 (H) mg/dL Sodium [[id number]] Collected: 04/16/192026 Specimen: Blood from Blood Updated: 04/16/192105 SODIUM 135 mmol/L Hepatitis panel, chronic [[id number]] (Abnormal) Collected: 04/16/19 145 Updated: 04/16/192007 Hep A Total Ab REACTIVE (A) HEP B SURFACE AG NON REACTIVE HEP B CORE AB,TOTAL NON REACTIVE HEP B SURFACE ANTIBODY <0.35 IV HEPATITIS C REACTIVE (A) HEPATITIS INTERP Current or past HAV infection and current or past HCV infection. No sero logic evidence of HBV infection or vaccination. POCT glucose [[id number]] (Abnormal) Collected: 04/16/19 1518 Updated: 04/16/19 1922 GLUCOSE,POC SCREEN 177 (H) mg/dL HCV RNA quant by PCR [[id number]] Collected: 04/16/19 1458 Specimen: Blood Updated: 04/16/19 1631 Hepatitis B Virus DNA Quant PCR [[id number]] Collected: 04/16/19 1458 Updated: 04/16/19 1631 Sodium [[id number]] Collected: 04/16/19 1434 Specimen: Blood Updated: 04/16/19 1455 SODIUM 135 mmol/L POCT glucose [[id number]] (Abnormal) Collected: 04/16/19 1202 Updated: 04/16/19 1212 GLUCOSE,POC SCREEN 135 (H) mg/dL CBC w/auto diff (reflex to manual) [[id number]] (Abnormal) Collected: 04/16/1945 Specimen: Blood from Blood Updated: 04/16/19 08 WBC 34.19 (HH) K/uL RBC 3.07 (L) M/uL HGB 8.4 (L) g/dL HCT 26.2 (L) % MCV 85.4 fl MCH 27.2 pg MCHC 31.8 (L) g/dL RDW SD 51.2 fl PLT 268 K/uL MPV 7.7 fl DIFF TYPE MANUAL nRBC 1 (H) /100WBC Neutrophils Manual 74 % Bands 6 % METAMYELOCYTES 4 % MYELOCYTES 5 % Lymphocytes Manual 11 % Neutrophils Absolute 25.30 (H) K/uL Bands Manual 2.05 (H) K/uL Metamyelocytes Absolute 1.37 (H) K/uL Myelocytes Absolute 1.71 (H) K/uL Lymphocytes Absolute 3.76 K/uL Platelet Estimate [facility] NORMAL Basic metabolic panel [[id number]] (Abnormal) Collected: 04/16/1945 Specimen: Blood from Blood Updated: 04/16/19 0824 SODIUM 135 mmol/L POTASSIUM 4.7 mmol/L CHLORIDE 107 mmol/L CO2 23 mmol/L ANION GAP AGAP 10 mmol/L GLUCOSE 173 (H) mg/dL BUN 63 (H) mg/dL CREATININE 2.42 (H) mg/dL BUN/CREAT 26 CALCIUM 7.1 (L) mg/dL EGFR 21 (L) mL/min/1.73m2 Vancomycin,Random [[id number]] Collected: 04/16/19744 Specimen: Blood from Blood Updated: 04/16/19823 VANCOMYCIN,RANDOM 15.9 ug/mL Blood Culture Set 2 [[id number]] (Abnormal) (Susceptibility) Collected: 04/13/192023 Specimen: Blood from Blood Line Draw Updated: 04/16/19651 Specimen Description BLOOD, LINE DRAW SPECIAL REQUESTS CL BLUE PORT GRAM STAIN GRAM POSITIVE COCCI IN CHAINS (A) GRAM STAIN SEEN IN AEROBIC BOTTLE GRAM STAIN SMEAR RESULTS CALLED TO AND READ BACK BY: GRAM CRISTINA WYNN ON 10RP AT 1830 ON 04/14/2019 CULTURE BETA HEMOLYTIC GROUP G STREPTOCOCCUS (A) GROWTH IN ONE OF TWO BOTTLES (A) TIME TO DETECTION: 0.84 DAYS POCT glucose [[id number]] (Abnormal) Collected: 04/15/19 1303 Updated: 04/16/19 0643 GLUCOSE,POC SCREEN 169 (H) mg/dL POCT glucose [[id number]] (Abnormal) Collected: 04/15/19 1130 Updated: 04/16/19 0643 GLUCOSE,POC SCREEN 153 (H) mg/dL POCT glucose [[id number]] (Abnormal) Collected: 04/15/19 0856 Updated: 04/16/19 0643 GLUCOSE,POC SCREEN 127 (H) mg/dL POCT glucose [[id number]] (Abnormal) Collected: 04/16/19 0542 Updated: 04/16/19 0636 GLUCOSE,POC SCREEN 208 (H) mg/dL POCT glucose [[id number]] (Abnormal) Collected: 04/15/19 210 Updated: 04/16/19 0636 GLUCOSE,POC SCREEN 284 (H) mg/dL Sodium [[id number]] (Abnormal) Collected: 04/16/19 0249 Specimen: Blood from Blood Updated: 04/16/19313 SODIUM 133 (L) mmol/L Sodium [[id number]] (Abnormal) Collected: 07/28/19 2025 Specimen: Blood Updated: 04/15/192054 SODIUM 133 (L) mmol/L Sodium [[id number]] (Abnormal) Collected: 04/15/19 1130 Specimen: Blood Updated: 04/15/19 1147 SODIUM 133 (L) mmol/L Wound culture [[id number]] (Abnormal) Collected: 04/13/191923 Specimen: Wound from Foot Updated: 04/15/19 1017 Specimen Description FOOT CULTURE 2+ BETA HEMOLYTIC GROUP G STREPTOCOCCUS (A) BETA STREP ORGANISMS ARE PREDICTABLY SUSCEPTIBLE TO PENICILLIN AND CEPHALOSPORINS 2+ MIXED GRAM POSITIVE AND GRAM NEGATIVE RADHA NO FURTHER WORKUP POCT glucose [[id number]] (Abnormal) Collected: 04/15/19623 Updated: 04/15/19 0906 GLUCOSE,POC SCREEN 121 (H) mg/dL POCT glucose [[id number]] (Abnormal) Collected: 04/15/19418 Updated: 04/15/19 0906 GLUCOSE,POC SCREEN 110 (H) mg/dL POCT glucose [[id number]] (Abnormal) Collected: 04/15/19416 Updated: 04/15/19 0906 GLUCOSE,POC SCREEN 57 (L) mg/dL POCT glucose [[id number]] (Abnormal) Collected: 04/15/19212 Updated: 04/15/19 0906 GLUCOSE,POC SCREEN 134 (H) mg/dL POCT glucose [[id number]] (Abnormal) Collected: 04/15/19 000 Updated: 04/15/19 0906 GLUCOSE,POC SCREEN 113 (H) mg/dL POCT glucose [[id number]] (Abnormal) Collected: 04/14/192205 Updated: 04/15/19 0905 GLUCOSE,POC SCREEN 124 (H) mg/dL POCT glucose [[id number]] (Abnormal) Collected: 04/14/192010 Updated: 04/15/19 0905 GLUCOSE,POC SCREEN 119 (H) mg/dL Blood Culture Set 1 [[id number]] Collected: 04/13/191921 Specimen: Blood from Blood Line Draw Updated: 04/15/19722 Specimen Description BLOOD, LINE DRAW SPECIAL REQUESTS CENTRAL CULTURE NO GROWTH 2 DAYS Prepare RBC (type and crossmatch) (Blood Bank) [[id number]] Collected: 04/14/19720 Specimen: Blood Updated: 04/15/19 0644 ARM BAND NUMBER [id number] ABO/RH(D) O POSITIVE ANTIBODY SCREEN NEGATIVE UNIT NUMBER [id number] BLOOD COMPONENT TYPE LEUKODEPLETED PC UNIT DIVISION 00 STATUS OF UNIT ISSUED,FINAL TRANSFUSION STATUS OK TO TRANSFUSE CROSSMATCH RESULT COMPATIBLE UNIT NUMBER [id number] BLOOD COMPONENT TYPE LEUKODEPLETED PC,A UNIT DIVISION 00 STATUS OF UNIT ISSUED,FINAL TRANSFUSION STATUS OK TO TRANSFUSE CROSSMATCH RESULT -- COMPATIBLE Testing performed at [facility] [place] [facility];[address] [place] [address] UNIT NUMBER [id number] BLOOD COMPONENT TYPE LEUKODEPLETED PC UNIT DIVISION 00 STATUS OF UNIT ISSUED,FINAL TRANSFUSION STATUS OK TO TRANSFUSE CROSSMATCH RESULT COMPATIBLE Prepare Plasma (Blood Bank) [[id number]] Collected: 04/14/19 1430 Updated: 04/15/19 06 Additional comment: ORDER RECEIVED IN BLOOD BANK. UNIT NUMBER [id number] BLOOD COMPONENT TYPE PLASMA,THAWED 5 DAY UNIT DIVISION 00 STATUS OF UNIT ISSUED,FINAL TRANSFUSION STATUS -- OK TO TRANSFUSE Testing performed at [facility] [place] [facility];[address] [place] [address] CBC w/auto diff (reflex to manual) [[id number]] (Abnormal) Collected: 04/15/19 0208 Specimen: Blood Updated: 04/15/19 05 WBC 54.49 (HH) K/uL RBC 3.32 (L) M/uL HGB 9.5 (L) g/dL HCT 28.9 (L) % MCV 87.0 fl MCH 28.5 pg MCHC 32.8 g/dL RDW SD 51.2 fl PLT 330 K/uL MPV 8.2 fl DIFF TYPE MANUAL nRBC 1 (H) /100WBC Neutrophils Manual 65 % Bands 11 % METAMYELOCYTES 9 % MYELOCYTES 3 % PROMYELOCYTES 2 % Lymphocytes Manual 8 % Monocytes Manual 1 % Eosinophils Manual 1 % Neutrophils Absolute 35.44 (H) K/uL Bands Manual 5.99 (H) K/uL Metamyelocytes Absolute 4.90 (H) K/uL Myelocytes Absolute 1.63 (H) K/uL Promyelocytes Absolute 1.09 (H) K/uL Lymphocytes Absolute 4.36 (H) K/uL Monocytes Absolute 0.54 K/uL Eosinophils Absolute 0.54 (H) K/uL MORPHOLOGY 1+ Vancomycin,Random [[id number]] Collected: 04/15/19207 Specimen: Blood Updated: 04/15/19236 VANCOMYCIN,RANDOM 25.6 ug/mL Basic metabolic panel [[id number]] (Abnormal) Collected: 04/15/19207 Specimen: Blood Updated: 04/15/19236 SODIUM 132 (L) mmol/L POTASSIUM 4.7 mmol/L CHLORIDE 102 mmol/L CO2 21 (L) mmol/L ANION GAP AGAP 14 mmol/L GLUCOSE 133 (H) mg/dL BUN 75 (H) mg/dL CREATININE 2.77 (H) mg/dL BUN/CREAT 27 CALCIUM 7.7 (L) mg/dL EGFR 18 (L) mL/min/1.73m2 Magnesium [[id number]] Collected: 04/15/19207 Specimen: Blood Updated: 04/15/19236 MAGNESIUM 2.2 mg/dL Phosphorus [[id number]] Collected: 04/15/19207 Specimen: Blood Updated: 04/15/19236 PHOSPHORUS 4.8 mg/dL Sodium [[id number]] (Abnormal) Collected: 04/14/191943 Specimen: Blood Updated: 04/14/192005 SODIUM 131 (L) mmol/L POCT glucose [[id number]] (Abnormal) Collected: 04/14/19 1055 Updated: 04/14/191940 GLUCOSE,POC SCREEN 130 (H) mg/dL POCT glucose [[id number]] (Abnormal) Collected: 04/14/19 1258 Updated: 04/14/19 194 GLUCOSE,POC SCREEN 103 (H) mg/dL POCT glucose [[id number]] (Abnormal) Collected: 04/14/19 1537 Updated: 04/14/19 194 GLUCOSE,POC SCREEN 128 (H) mg/dL POCT glucose [[id number]] (Abnormal) Collected: 04/14/19 1803 Updated: 04/14/19 194 GLUCOSE,POC SCREEN 133 (H) mg/dL POCT glucose [[id number]] (Abnormal) Collected: 04/14/19 0942 Updated: 04/14/19 194 GLUCOSE,POC SCREEN 133 (H) mg/dL CBC: Lab Results Component Value Date WBC 30.43 (HH) 04/17/2019 RBC 3.13 (L) 04/17/2019 HGB 8.6 (L) 04/17/2019 HCT 26.9 (L) 04/17/2019 MCV 86.0 04/17/2019 MCH 27.6 04/17/2019 MCHC 32.1 04/17/2019 RDW 50.8 04/17/2019 PLT 264 04/17/2019 MPV 7.9 04/17/2019 DIFFTYPE MANUAL 04/17/2019 CMP: Lab Results Component Value Date NA 133 (L) 04/17/2019 K 5.2 (H) 04/17/2019 CL 109 04/17/2019 CO2 23 04/17/2019 ANIONGAP 8 04/17/2019 GLUF 102 (H) 04/17/2019 BUN 58 (H) 04/17/2019 CREATININE 1.95 (H) 04/17/2019 CREATININE 3.11 (A) 11/17/2017 BCR 30 04/17/2019 CA 7.7 (L) 04/17/2019 CA 9.4 07/01/2017 PROT 5.7 (L) 04/13/2019 ALB 2.6 (L) 04/13/2019 GLOB 3.1 04/13/2019 BILITOT 0.9 04/13/2019 ALP 291 (H) 04/13/2019 AST 50 (H) 04/13/2019 ALT 32 04/13/2019 EGFR 27 (L) 04/17/2019 Magnesium: Lab Results Component Value Date MG 2.2 04/15/2019 Phosphorus: Lab Results Component Value Date PHOS 4.8 04/15/2019 PT/INR: Lab Results Component Value Date INR 2.2 04/14/2019 Last 3 Troponin: Lab Results Component Value Date TROPONINI 1.21 (HH) 10/05/2012 TROPONINI 2.00 (HH) 10/05/2012 TROPONINI 0.35 (H) 10/22/2011 ABG: Lab Results Component Value Date POCPH 7.368 04/14/2019 POCPCO 36 04/14/2019 POCPO2 105 04/14/2019 POCHCO 21 (L) 04/14/2019 POCTCO2 22 (L) 04/14/2019 POCBD 5 (H) 04/14/2019 POCSO2 98 04/14/2019 POCCMT Modified Chin Test passed 04/14/2019 X-ray Chest 1 View Result Date: 04/13/2019 CHEST ONE VIEW CLINICAL INFORMATION: Central line placement COMPARISON: ECHO OUTSIDE INTERP RETATION (03/24/2017); XR CHEST 1 VIEW (01/05/2016); XR FLUORO OVER 1 HOUR (01/02/2016); FINDING S: Poorly defined opacity in the left lung base. Right lung is clear. Costophrenic angles a re clear. No pneumothorax. Cardiac silhouette is unremarkable. Left IJ central venous cat heter terminates in the mid SVC. Poorly defined opacity in the left lung base, which may represent atelectasis or consolidat ion. Left IJ central venous catheter terminates in the mid SVC. Signed by: Emy Romero John Sign Date/Time: 04/13/2019 7:44 PM Echo Cardiac Adult With Contrast Result Date: 04/15/2019 Patient Name: Alondra Caballero Date of : 1970 Performing P timan: [facility] INDICATIONS abnormal ekg CONCLUSIONS 1. This was a technically diff icult study with suboptimal views. 2. The left ventricle is moderately dilated, moderately i mpaired systolic function, akinetic anterior, anteroseptal, inferoseptal and apical segments , EF 30-35%. 3. Pseudonormal LV diastolic filling pattern, consistent with elevated LA press ure and moderate dysfunction (Grade II). 4. The right ventricle is normal in size and functi on. 5. There is mild pulmonary hypertension. 6. There is no pericardial effusion. FINDINGS - ------- ECG rhythm: Sinus rhythm. Study: A 2-dimensional transthoracic echocardiogram with m -mode, spectral and color flow Doppler was perfomed. Study: This was a technically difficult study with suboptimal views. Left Ventricle: Overall left ventricular systolic function is moderate-severely impaired with, an EF between 30 - 35 %. Left Ventricle: The left ventricle is moderately dilated. Left Ventricle: Left ventricular wall thickness is normal. There thad ears to be akinesis of the mid to distal septal wall and apex. Left Ventricle: Pseudonormal LV diastolic filling pattern, consistent with elevated LA pressure and moderate dysfunction (Grade II). Right Ventricle: The right ventricle is normal in size and function. Left Atrium : The left atrium is moderately dilated. Right Atrium: The right atrium is mildly enlarged. Aortic Valve: The aortic valve is trileaflet. Aortic Valve: There is mild aortic valve scler osis without stenosis. Aortic Valve: There is no evidence of aortic regurgitation. Mitral Va lve: There is trace mitral regurgitation. Mitral Valve: Mild mitral annular calcification pr esent. Tricuspid Valve: The tricuspid valve appears structurally normal. Tricuspid Valve: Mi ld tricuspid regurgitation present. Tricuspid Valve: There is mild pulmonary hypertension. T ricuspid Valve: The right ventricular systolic pressure (pulmonary artery systolic pressure) , as measured by Doppler, is 35.75mmHg. Pulmonic Valve: The pulmonic valve was not well visu alized. Pericardium: There is no pericardial effusion. Pericardium: No pleural effusion seen . IVC/Hepatic Veins: The IVC is normal size (1.5-2.5cm) and collapses >50% with sniff, consi stent with central venous pressures of 3 mmHg. Aorta: The aortic root and ascending aorta ar e normal in size. Contrast: Poor visualization. Definity was used to opacify the left ventri cular chamber and improve delineation of the endocardial border. MEASUREMENTS Ao asc: 3.26 cm Ao sinus: 3.12 cm IVC: 1.67 cm EDV(Teich): 215.22 ml IVSd: 0.77 cm LVIDd: 6.48 cm LVPWd: 1.09 cm LVOT Diam: 2.11 cm %FS: 32.20 % EF(Teich): 59.26 % ESV(Teich): 87.67 ml IVSs: 1.21 cm LVIDs: 4.39 cm LVPWs: 1.53 cm SV(Teich): 127.54 ml RA Major: 5.50 cm RVIDd: 3.89 cm LVEF MOD A4C: 26.54 % SV MOD A4C: 42.28 ml LVED V MOD A4C: 159.26 ml LVLd A4C: 8.45 cm LVESV MOD A4C: 116.98 ml LVLs A4C: 8.51 cm LA ESV(A-L): 110.56 ml LAESV Index (A-L): 45.68 ml/m2 LAAs A2C: 26.90 cm2 LAESV A-L A2C: 88.69 ml LALs A2C: 6.92 cm LAAs A4C: 33.33 cm2 LAESV A-L A4C: 136.96 ml LALs A4C: 6.88 cm TAPSE: 2.14 cm AV maxP.27 mmHg AV meanP.11 mmHg AV Vmax: 1.60 m/s A V Vmean: 1.16 m/s AV VTI: 31.46 cm ALMITA Vmax: 2.22 cm2 ALMITA (VTI): 2.34 cm2 AVAI Vmax: 0.00 cm2/m2 AVAI (VTI): 0.00 cm2/m2 LVCI Dopp: 2.70 l/minm2 LVCO Dopp: 6.54 l/min H R: 88.69 BPM LVOT maxP.08 mmHg LVOT meanP.32 mmHg LVSI Dopp: 30.50 ml/m2 LVS V Dopp: 73.83 ml LVOT Vmax: 1.01 m/s LVOT Vmean: 0.73 m/s LVOT VTI: 20.94 cm MV A Ve l: 1.30 m/s MV DecT: 254.70 ms MV E Delia: 1.44 m/s MV E/A Ratio: 1.10 MV PHT: 79.98 ms MVA By PHT: 2.75 cm2 MV maxP.11 mmHg MV meanP.43 mmHg MV Vmax: 1.81 m/s MV Vmean: 1.11 m/s MV VTI: 42.30 cm MVA (VTI): 1.74 cm2 Septal e': 0.03 m/s Septal E/e': 36.41 Lateral e': 0.05 m/s Lateral E/e': 25.65 HR: 90.60 BPM PV maxP.38 mmHg PV meanP.76 mmHg PV Vmax: 0.91 m/s PV Vmean: 0.63 m/s PV VTI: 19.84 cm RAP: 8 mmHg RV S': 0.08 m/s RVSP: 35.75 mmHg TR maxP.75 mmHg TR Vmax: 2.63 m/s So rahel: FLEX Authenticated by: Logansteve Violeta Report Date/Time: 04-15-2019 10:55:13 1. This was a technically difficult study with suboptimal views. 2. The left ventricle is m oderately dilated, moderately impaired systolic function, akinetic anterior, anteroseptal, i nferoseptal and apical segments, EF 30-35%. 3. Pseudonormal LV diastolic filling pattern, co nsistent with elevated LA pressure and moderate dysfunction (Grade II). 4. The right ventric le is normal in size and function. 5. There is mild pulmonary hypertension. 6. There is no p ericardial effusion. PROBLEM LIST Principal Problem: Septic shock (HCC) Active Problems: Morbid obesity (HCC) CHF (congestive heart failure) ([facility]) CKD (chronic kidney disease), stage IV Metabolic acidosis ICD (implantable cardioverter-defibrillator), single, 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, with long-term current use of insulin (HCC) Ischemic cardiomyopathy Sepsis (HCC) Gangrene of extremity ([facility]) Hyperkalemia Lactic acidosis Hyponatremia Group G streptococcal infection Skin ulcer of finger, limited to breakdown of skin ([facility]) ASSESSMENT & PLAN Septic shock resolved and was likely secondary to right leg wet gangrene and streptococcal bacteremia secondary to it status post right above-knee amputation by Dr. Cook plan continue the patient on Rocephin IV daily through April 27 Acute pain postop involving the right above-knee amputation site plan start the patient on gabapentin 100 mg 3 times daily And continue on oxycodone as needed Diabetes mellitus insulin-dependent blood glucose reasonably controlled Plan continue the patient on Levemir 24 units twice daily, lispro 13 units with meals and i nsulin sliding scale Chronic systolic CHF well compensated with most recent ejection fraction of 35% Plan continue on metoprolol and start the patient on losartan, torsemide Acute renal failure on chronic kidney disease stage IV resolved Anemia: Check complete iron panel B12 folate to rule out nutritional deficiencies Bilateral knee amputation: Patient will likely benefit from rehabilitation DVT prophylaxis on heparin MARK CARRANZA MD 04/17/2019 rsales, Char moreira MD - 04/17/2019 5:01 PM PDTFormatting of this note might be different from the orig inal. Progress Notes by Char Veliz MD at 04/17/191700 Author: Char Veliz MD Service: Infectious Disease Author Type: Physici an Filed: 04/17/191702 Date of Service: 04/17/191700 Status: Signed Chief Pharmacist: Char Veliz MD (Physician) [facility] Service: Infectious Diseases Progress Note Hospital Day: LOS: 4 days Post-Op Day: 3 Days Post-Op CC: follow up on infection and antibiotic therapy SUBJECTIVE/OVERNIGHT EVENTS The patient remains on treatment with antibiotics. No acute events over last 24 hours are reported. REVIEW OF SYSTEMS: pain well-controlled MEDICATIONS: Reviewed PHYSICAL EXAM Vital Signs: BP 122/63 (BP Location: Right forearm) | Pulse 103 | Temp 98.3 F (36.8 C) (Oral) | R bean 18 | Wt 123.7 kg (272 lb 11.3 oz) | LMP 10/04/2011 | SpO2 96% | BMI 39.13 kg/m Focused exam shows: General exam: No distress, cooperative with exam. HEENT: sclera non-icteric, no visible oral thrush Cardiovascular: regular rate and rhythm Lungs: no tachypnea, clear breath sounds. Mildly decreased at bases Extremities/MSK: R AKA bandaged with wound vac; L BKA Skin: No lesions, normal turgor Neurologic: Awake, cranial nerves intact. Follows commands. LABS: MICRO All labs were reviewed. CBC: Lab Results Component Value Date WBC 30.43 (HH) 04/17/2019 RBC 3.13 (L) 04/17/2019 HGB 8.6 (L) 04/17/2019 HCT 26.9 (L) 04/17/2019 MCV 86.0 04/17/2019 MCH 27.6 04/17/2019 MCHC 32.1 04/17/2019 RDW 50.8 04/17/2019 PLT 264 04/17/2019 MPV 7.9 04/17/2019 DIFFTYPE MANUAL 04/17/2019 CMP: Lab Results Component Value Date NA 133 (L) 04/17/2019 K 5.2 (H) 04/17/2019 CL 109 04/17/2019 CO2 23 04/17/2019 ANIONGAP 8 04/17/2019 GLUF 102 (H) 04/17/2019 BUN 58 (H) 04/17/2019 CREATININE 1.95 (H) 04/17/2019 CREATININE 3.11 (A) 11/17/2017 BCR 30 04/17/2019 CA 7.7 (L) 04/17/2019 CA 9.4 07/01/2017 PROT 5.7 (L) 04/13/2019 ALB 2.6 (L) 04/13/2019 GLOB 3.1 04/13/2019 BILITOT 0.9 04/13/2019 ALP 291 (H) 04/13/2019 AST 50 (H) 04/13/2019 ALT 32 04/13/2019 EGFR 27 (L) 04/17/2019 Principal Problem: Septic shock (HCC) Active Problems: Morbid obesity (HCC) CHF (congestive heart failure) (HCC) CKD (chronic kidney disease), stage IV Metabolic acidosis ICD (implantable cardioverter-defibrillator), single, 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, with long-term current use of insulin (HCC) Ischemic cardiomyopathy Sepsis (HCC) Gangrene of extremity (HCC) Hyperkalemia Lactic acidosis Hyponatremia Group G streptococcal infection Resolved Problems: * No resolved hospital problems. * ASSESSMENT & PLAN The patient is a 49 y.o.-year-old female with the following problems: Septic shock given right lower extremity wet gangrene Group G strep bacteremia Uncontrolled diabetes to Stage IV CKD Hep C ab (+) Recommendations: Continue ceftriaxone for 2 weeks after first negative blood cultures through April 27 Check HCV RNA Dictation software, [employer], used which may contain error for similar sounding words even af ter review. Personal communication requested for any clarification. Portions of this chart may have been copied from previous notes for continuity of care purp khang Veliz MD Infectious Diseases 04/17/[address] PA-C - 04/17/2019 8:50 AM PDTFormatting of this note might be different from the o riginal. Progress Notes by Anderson Lopez PA-C at 04/17/19 0850 Author: Anderson Lopez PA-C Service: Vascular Surgery Author Type: Physician [employer] Professional - Certified Filed: 04/17/1903 Date of Service: 04/17/19849 Status: Addendum Chief Pharmacist: Anderson Lopez PA-C (Physician [employer] Professional - Certified) Related Notes: Original Note by Anderson Lopez PA-C (Physician [employer] Professional - Certified) led at 04/17/19 0851 [facility] Service: Vascular Surgery Progress Note Hospital Day: LOS: 4 days Post-Op Day: 3 SUBJECTIVE Patient Summary: The patient is a 49 y.o. female with significant past medical histo ry of CAD, CHF, previous [place], DMII uncontrolled, HTN, HLD, meth induced seizures, s/p left BK A and non healing wounds of right lower extremity who presented to [facility] an d was found to be in septic shock. She was transferred to [facility] ICU on 04/13/2019. She has a h istory of a left BKA. She reports history of non healing wounds on her right leg with purule nt drainage and bone exposure. Vascular Surgery has been consulted for evaluation and treatm ent of her right lower extremity wounds and for consideration of amputation. She underwent right AKA on 04/14/2019. Events Overnight: POD 2. No acute events overnight. Off pressors. Scheduled Medications allopurinol 300 mg Oral Daily aspirin 81 mg Oral Daily atorvastatin 80 mg Oral Daily cefTRIAXone 2 g Intravenous Q24H heparin (porcine) 5000 unit/0.5mL 5,000 Units Subcutaneous 3 times per day insulin detemir 24 Units Subcutaneous BID insulin lispro (human) 13 Units Subcutaneous TID AC insulin lispro (human) 3-9 Units Subcutaneous Nightly insulin lispro (human) 6-18 Units Subcutaneous TID AC isosorbide dinitrate 5 mg Oral BID metoprolol 12.5 mg Oral Daily nystatin Topical BID sodium bicarbonate 1,300 mg Oral TID venlafaxine 150 mg Oral Daily with breakfast Continuous Infusions PRN Medications acetaminophen OR acetaminophen, albuterol, dextrose, dextrose, docusate sodium OR d ocusate, ondansetron OR ondansetron, oxyCODONE OR oxyCODONE OR oxyCODONE, petrol atum, sodium chloride 0.9 % OBJECTIVE Vital Signs: BP 144/64 (BP Location: Right forearm) | Pulse 110 | Temp 98.5 F (36.9 C) (Oral) | R bean 18 | Wt 123.7 kg (272 lb 11.3 oz) | LMP 10/04/2011 | SpO2 96% | BMI 39.13 kg/m Constitutional: Well nourished, no signs of distress HENT: Non icteric sclerae, oropharynx clear. Normocephalic and atraumatic Cardiovascular: Normal rate, regular rhythm Pulmonary/Chest: No respiratory distress Abdominal: Soft. No abdominal distension or tenderness. No masses palpated and no hepatomeg lexi. No organomegaly. No abdominal pulsatile mass noted Musculoskeletal: Normal range of motion. No evidence of arthritis. Gangrene wounds to bilat eral thumbs. Extremities: No cyanosis or clubbing. Neurological: She is alert and oriented. VASCULAR: Palpable femoral pulse bilaterally. Left BKA present. Right leg AKA with prevena dressing in place and holding suction. DATA CBC: Lab Results Component Value Date WBC 30.43 (HH) 04/17/2019 RBC 3.13 (L) 04/17/2019 HGB 8.6 (L) 04/17/2019 HCT 26.9 (L) 04/17/2019 MCV 86.0 04/17/2019 MCH 27.6 04/17/2019 MCHC 32.1 04/17/2019 RDW 50.8 04/17/2019 PLT 264 04/17/2019 MPV 7.9 04/17/2019 DIFFTYPE MANUAL 04/17/2019 BMP: Lab Results Component Value Date NA 135 04/17/2019 K 5.2 (H) 04/17/2019 CL 109 04/17/2019 CO2 23 04/17/2019 ANIONGAP 8 04/17/2019 GLUF 102 (H) 04/17/2019 BUN 58 (H) 04/17/2019 CREATININE 1.95 (H) 04/17/2019 CREATININE 3.11 (A) 11/17/2017 BCR 30 04/17/2019 CA 7.7 (L) 04/17/2019 CA 9.4 07/01/2017 EGFR 27 (L) 04/17/2019 PROBLEM LIST Principal Problem: Septic shock (HCC) Active Problems: Morbid obesity (HCC) CHF (congestive heart failure) (HCC) CKD (chronic kidney disease), stage IV Metabolic acidosis ICD (implantable cardioverter-defibrillator), single, 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, with long-term current use of insulin (HCC) Ischemic cardiomyopathy Sepsis (HCC) Gangrene of extremity (HCC) Hyperkalemia Lactic acidosis Hyponatremia Group G streptococcal infection ASSESSMENT & PLAN Non healing wounds of right lower extremity / Sepsis / Status post right AKA - POD 3 and of f of pressors. Prevena holding suction. Continue pain management and antibiotics per primary team. Will plan to take down dressing tomorrow and evaluate wound. She will need placement into rehab facility to ensure her AKA wound is healing and does not become infected. Code Status: Full Code Anderson Lopez PA-C 04/17/2019 onversion Transac tion, Provider Unknown - 04/17/2019 6:43 AM PDTFormatting of this note might be different f rom the original. Nurse Progress Note by Mc Arredondo RN at 04/17/19642 Author: Mc Arredondo RN Service: (none) Author Type: Registered Nurse Filed: 04/17/1944 Date of Service: 04/17/19642 Status: Signed Chief Pharmacist: Mc Arredondo RN (Registered Nurse) Pt resting comfortably in room. VSS. No c/o nausea or pain this shift. No acute changes from previous assessment. End of shift review complete. Mc Arredondo RN Angie Pennington - 04/16/2019 5:19 PM PDTFormatting of this note might be different from t he original. Progress Notes by Angie Díaz MD at 04/16/19 0605 Author: Angie Díaz MD Service: (none) Author Type: Physician Filed: 04/16/19 5620 Date of Service: 04/16/191718 Status: Signed Chief Pharmacist: Angie Díaz MD (Physician) [facility] Service: Hospitalist Progress Note Hospital Day: LOS: 3 days Post-Op Day: 2 Days Post-Op SUBJECTIVE Patient Summary: From [facility] H&P (04/13): "The patient is a 49 y.o.femalewith significant past medic al history ofMethamphetamine use stopped 8 years ago, Diabetes type 2 on insulin, CKD st age IV, CAD, cardiac stent, CHF, left BKAwho presented to [facility] via EMS w ith leg swelling and pain. About 4 weeks ago the patient noticed her right leg forming some blisters that her caregivers non medical was managing. The pt stated that her caregiver has been out of town for 4 weeks and that her roommate was taking care of her needs and wound care during th at time. Per patient, when the caregiver returned today to change her wound dressing, the wo und had become significantly worse since the last time she was there with purulent drainage, necrotic tissue, redness extending from right foot to knee and a very foul odor. The [facility] then called EMS to have patient transferred to the ER for further workup. Upon arrival to ER pt was not in shock initially, pertinent initial labs: WBC 50.9, lactic Acid 1.9, Creatinine 3.78, BUN 26, Na 122, K+ 6.5. Pt received kayexalate, started on vancom ycin and zosyn. Shortly after arrival pt went into shock, received 3L IV fluids then started on low dose levophed drip. [facility] ICU was consulted and pt was then transferred for higher delia of care." Vascular surgery consulted Patient underwent AKA Rt LE Already had Lt BKA Prior DM controlled Wound Cult Strep G on Rocephin now Events Overnight: No new symptoms Scheduled Medications allopurinol 300 mg Oral Daily aspirin 81 mg Oral Daily atorvastatin 80 mg Oral Daily cefTRIAXone 2 g Intravenous Q24H heparin (porcine) 5000 unit/0.5mL 5,000 Units Subcutaneous 3 times per day insulin detemir 24 Units Subcutaneous BID insulin lispro (human) 13 Units Subcutaneous TID AC insulin lispro (human) 3-9 Units Subcutaneous Nightly insulin lispro (human) 6-18 Units Subcutaneous TID AC isosorbide dinitrate 5 mg Oral BID metoprolol 12.5 mg Oral Daily nystatin Topical BID sodium bicarbonate 1,300 mg Oral TID venlafaxine 150 mg Oral Daily with breakfast Continuous Infusions PRN Medications acetaminophen OR acetaminophen, albuterol, dextrose, dextrose, docusate sodium OR d ocusate, ondansetron OR ondansetron, oxyCODONE OR oxyCODONE OR oxyCODONE, petrol atum, sodium chloride 0.9 % OBJECTIVE Vital Signs: BP 102/77 (BP Location: Right forearm) | Pulse 121 | Temp 99.5 F (37.5 C) (Oral) | R bean 20 | Wt 123.7 kg (272 lb 11.3 oz) | LMP 10/04/2011 | SpO2 96% | BMI 39.13 kg/m . Physical Exam Constitutional: She is oriented to person, place, and time. She appears well-developed and well-nourished. No distress. HENT: Head: Normocephalic and atraumatic. Eyes: Pupils are equal, round, and reactive to light. EOM are normal. Neck: Normal range of motion. Neck supple. No JVD present. No tracheal deviation present. N o thyromegaly present. Cardiovascular: Normal rate, regular rhythm and normal heart sounds. Exam reveals no alfredo p. No murmur heard. Pulmonary/Chest: Effort normal and breath sounds normal. No stridor. No respiratory distres s. She has no wheezes. She has no rales. She exhibits no tenderness. Abdomina/Gl: Soft. Bowel sounds are normal. She exhibits no distension and no mass. There i s no tenderness. There is no rebound and no guarding. Musculoskeletal: Rt LE AKA Lt LE BKA Shaji Hand digial ulceration amputation of a finger Lt hand Neurological: She is alert and oriented to person, place, and time. She displays normal ref lexes. No cranial nerve deficit or sensory deficit. She exhibits normal muscle tone. Coordin ation normal. Skin: Skin is warm and dry. No rash noted. She is not diaphoretic. No erythema. No pallor. Psychiatric: She has a normal mood and affect. Her behavior is normal. Judgment and thought content normal. DATA CBC: Lab Results Component Value Date WBC 34.19 (HH) 04/16/2019 RBC 3.07 (L) 04/16/2019 HGB 8.4 (L) 04/16/2019 HCT 26.2 (L) 04/16/2019 MCV 85.4 04/16/2019 MCH 27.2 04/16/2019 MCHC 31.8 (L) 04/16/2019 RDW 51.2 04/16/2019 PLT 268 04/16/2019 MPV 7.7 04/16/2019 DIFFTYPE MANUAL 04/16/2019 CMP: Lab Results Component Value Date NA 135 04/16/2019 K 4.7 04/16/2019 CL 107 04/16/2019 CO2 23 04/16/2019 ANIONGAP 10 04/16/2019 GLUF 173 (H) 04/16/2019 BUN 63 (H) 04/16/2019 CREATININE 2.42 (H) 04/16/2019 CREATININE 3.11 (A) 11/17/2017 BCR 26 04/16/2019 CA 7.1 (L) 04/16/2019 CA 9.4 07/01/2017 PROT 5.7 (L) 04/13/2019 ALB 2.6 (L) 04/13/2019 GLOB 3.1 04/13/2019 BILITOT 0.9 04/13/2019 ALP 291 (H) 04/13/2019 AST 50 (H) 04/13/2019 ALT 32 04/13/2019 EGFR 21 (L) 04/16/2019 ASSESSMENT & PLAN Principal Problem: Septic shock ([facility]) : HAD B HEMOLYTIC STERP IN BLOOD AND WOUND CULT On Vanco and clinda 04/16 Now Rocephin per ID recommendation Active Problems: Sepsis ([facility]) Wet Gangrene Rt LE now s/p AKA Amputation Gangrene of extremity ([facility]) : Now s/p AKA per Dr [facility] CHF (congestive heart failure) ([facility]) : Nil acute comfortable at rest Type 2 diabetes mellitus with diabetic nephropathy, with long-term current use of insulin ( [facility]) Sugars controlled Basal BID Meal and correction Bolus Hyperkalemia : Resolved K 4.7 Lactic acidosis : resoved LA is 2. 0 Hyponatremia 04/16 RESOLVED Na 135 Morbid obesity (HCC) : Needs weight loss CKD (chronic kidney disease), stage IV : Stable creatinine 2.5 Metabolic acidosis CO2 better 23 now AG normal ICD (implantable cardioverter-defibrillator), single, in situ Hx Pacemaker/ICD: initial implant 12/12/2012, lead failure, replaced with [employer] 1010 SQ-device 06/18/2013 SN: [id number] (SQ ICD). Ischemic cardiomyopathy : WILL MONITOR NIL CHEST PAIN NOW On Lipitor 80 mg Group G streptococcal infection Disposition: Home Code Status: Full Code Angie Díaz MD 04/16/2019 onversion Trans action, Provider Unknown - 04/16/2019 1:56 PM PDT Case Management by Yuli Guerra RN at 04/16/19 1356 Author: Yuli Guerra RN Service: (none) Author Type: Registered Nurse Filed: 04/16/19 1356 Date of Service: 04/16/19 135 Status: Signed Chief Pharmacist: Yuli Guerra RN (Registered Nurse) Pt not medically ready for discharge today. Vascular following- prevena wound vac remains in place. Char Bull MD - 04/16/2019 10:50 AM PDTFormatting of this note might be differen t from the original. Progress Notes by Char Veliz MD at 04/16/19 1050 Author: Char Veliz MD Service: Infectious Disease Author Type: Physici an Filed: 04/16/19 1053 Date of Service: 04/16/19 1050 Status: Signed Chief Pharmacist: Char Veliz MD (Physician) [facility] Service: Infectious Diseases Progress Note Hospital Day: LOS: 3 days Post-Op Day: 2 Days Post-Op CC: follow up on infection and antibiotic therapy SUBJECTIVE/OVERNIGHT EVENTS The patient remains on treatment with antibiotics. No acute events over last 24 hours are reported. REVIEW OF SYSTEMS: Appears much better, pain control MEDICATIONS: Reviewed PHYSICAL EXAM Vital Signs: BP 103/53 | Pulse 121 | Temp 98.1 F (36.7 C) (Oral) | Resp 20 | Wt 123.7 kg (272 lb 11.3 oz) | LMP 10/04/2011 | SpO2 96% | BMI 39.13 kg/m Focused exam shows: General exam: No distress, cooperative with exam. HEENT: sclera non-icteric, no visible oral thrush Cardiovascular: regular rate and rhythm Lungs: no tachypnea, clear breath sounds. Mildly decreased at bases Extremities/MSK: R AKA bandaged with wound vac; L BKA Skin: No lesions, normal turgor Neurologic: Awake, cranial nerves intact. Follows commands. LABS: MICRO Blood Culture Set 2 [[id number]] (Abnormal) Collected: 04/13/192023 Order Status: Completed Lab Status: Final result Updated: 04/16/19 0652 Specimen: Blood from Blood Line Draw Specimen Description BLOOD, LINE DRAW SPECIAL REQUESTS CL BLUE PORT GRAM STAIN GRAM POSITIVE COCCI IN CHAINS (A) GRAM STAIN SEEN IN AEROBIC BOTTLE GRAM STAIN SMEAR RESULTS CALLED TO AND READ BACK BY: GRAM STAIN KINGSLEY ON 10RP AT 1830 ON 04/14/2019 CULTURE BETA HEMOLYTIC GROUP G STREPTOCOCCUS (A) GROWTH IN ONE OF TWO BOTTLES (A) TIME TO DETECTION: 0.84 DAYS Culture & Susceptibility BETA HEMOLYTIC GROUP G STREPTOCOCCUS Antibiotic Sensitivity Microscan Status Ampicillin Sensitive SUSCEPTIBLE Final Method: CELESTINA Cefotaxime Sensitive SUSCEPTIBLE Final Method: CELESTINA Cefotaxime CSF Sensitive SUSCEPTIBLE Final Method: CELESTINA Ceftriaxone CSF Sensitive SUSCEPTIBLE Final Method: CELESTINA Clindamycin Sensitive SUSCEPTIBLE Final Method: CELESTINA Erythromycin Sensitive SUSCEPTIBLE Final Method: CELESTINA Levofloxacin Sensitive SUSCEPTIBLE Final Method: CELESTINA Linezolid Sensitive SUSCEPTIBLE Final Method: CELESTINA PENICILLIN (ORAL) Sensitive SUSCEPTIBLE Final Method: CELESTINA PENICILLIN (PNEUMONIA) Sensitive SUSCEPTIBLE Final Method: CELESTINA PENICILLIN OTHER Sensitive SUSCEPTIBLE Final Method: CELESTINA Penicillin G Sensitive SUSCEPTIBLE Final Method: CELESTINA Tetracycline Sensitive SUSCEPTIBLE Final Method: CELESTINA Vancomycin Sensitive SUSCEPTIBLE Final Method: CELESTINA Blood Culture Set 1 [[id number]] Collected: 04/15/19 1258 Order Status: Sent Lab Status: In process Updated: 04/15/19 165 Specimen: Blood from Blood Line Draw Blood Culture Set 2 [[id number]] Collected: 04/15/19 1255 Order Status: Sent Lab Status: In process Updated: 04/15/19 165 Specimen: Blood from Blood Line Draw Wound culture [[id number]] (Abnormal) Collected: 04/13/191923 Order Status: Completed Lab Status: Final result Updated: 04/15/19 1017 Specimen: Wound from Foot Specimen Description FOOT CULTURE 2+ BETA HEMOLYTIC GROUP G STREPTOCOCCUS (A) BETA STREP ORGANISMS ARE PREDICTABLY SUSCEPTIBLE TO PENICILLIN AND CEPHALOSPORINS 2+ MIXED GRAM POSITIVE AND GRAM NEGATIVE RADHA NO FURTHER WORKUP Blood Culture Set 1 [[id number]] Collected: 04/13/191921 Order Status: Completed Lab Status: Preliminary result Updated: 04/15/19722 Specimen: Blood from Blood Line Draw Specimen Description BLOOD, LINE DRAW SPECIAL REQUESTS CENTRAL CULTURE NO GROWTH 2 DAYS MRSA by PCR [[id number]] Collected: 04/13/191821 Order Status: Completed Lab Status: Final result Updated: 04/13/191937 Specimen: Nasopharyngeal from Nasopharyngeal Culture SOURCE NARES(NOSE) MRSA PCR NEGATIVE Comment: Testing performed at [facility];[address] [place] [address];[place] [address] All labs were reviewed. CBC: Lab Results Component Value Date WBC 34.19 (HH) 04/16/2019 RBC 3.07 (L) 04/16/2019 HGB 8.4 (L) 04/16/2019 HCT 26.2 (L) 04/16/2019 MCV 85.4 04/16/2019 MCH 27.2 04/16/2019 MCHC 31.8 (L) 04/16/2019 RDW 51.2 04/16/2019 PLT 268 04/16/2019 MPV 7.7 04/16/2019 DIFFTYPE MANUAL 04/16/2019 CMP: Lab Results Component Value Date NA 135 04/16/2019 K 4.7 04/16/2019 CL 107 04/16/2019 CO2 23 04/16/2019 ANIONGAP 10 04/16/2019 GLUF 173 (H) 04/16/2019 BUN 63 (H) 04/16/2019 CREATININE 2.42 (H) 04/16/2019 CREATININE 3.11 (A) 11/17/2017 BCR 26 04/16/2019 CA 7.1 (L) 04/16/2019 CA 9.4 07/01/2017 PROT 5.7 (L) 04/13/2019 ALB 2.6 (L) 04/13/2019 GLOB 3.1 04/13/2019 BILITOT 0.9 04/13/2019 ALP 291 (H) 04/13/2019 AST 50 (H) 04/13/2019 ALT 32 04/13/2019 EGFR 21 (L) 04/16/2019 Principal Problem: Septic shock (HCC) Active Problems: Morbid obesity (HCC) CHF (congestive heart failure) (HCC) CKD (chronic kidney disease), stage IV Metabolic acidosis ICD (implantable cardioverter-defibrillator), single, 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, with long-term current use of insulin (HCC) Ischemic cardiomyopathy Sepsis (HCC) Gangrene of extremity (HCC) Hyperkalemia Lactic acidosis Hyponatremia Resolved Problems: * No resolved hospital problems. * ASSESSMENT & PLAN The patient is a 49 y.o.-year-old female with the following problems: Septic shock given right lower extremity wet gangrene Group G strep bacteremia Uncontrolled diabetes to Stage IV CKD Recommendations: DC vancomycin and clindamycin De-escalate to ceftriaxone for 2 weeks after first negative blood cultures through April 27 Dictation software, Kahua, used which may contain error for similar sounding words even af ter review. Personal communication requested for any clarification. Portions of this chart may have been copied from previous notes for continuity of care purp khang Veliz MD Infectious Diseases 04/16/2019 onversi on Transaction, Provider Unknown - 04/16/2019 8:38 AM PDTFormatting of this note might be d ifferent from the original. Progress Notes by Dung Chow RPH at 04/16/19837 Author: Dung Chow RPH Service: Pharmacy Author Type: Pharmacist Filed: 04/16/19837 Date of Service: 04/16/19837 Status: Signed Chief Pharmacist: Dung Chow RPH (Pharmacist) Vanco random 15.9, will send a 750mg dose to be given today. Anderson Lane PA-C - 04/16/2019 8:18 AM PDT Progress Notes by Anderson Lopez PA-C at 04/16/19817 Author: Anderson Lopez PA-C Service: Vascular Surgery Author Type: Physician [employer] Professional - Certified Filed: 04/17/1949 Date of Service: 04/16/19817 Status: Signed Chief Pharmacist: Anderson Lopez PA-C (Physician [employer] Professional - Certified) [facility] Service: Vascular Surgery Progress Note Hospital Day: LOS: 3 days Post-Op Day: 2 SUBJECTIVE Patient Summary: The patient is a 49 y.o. female with significant past medical histo ry of CAD, CHF, previous [place], DMII uncontrolled, HTN, HLD, meth induced seizures, s/p left BK A and non healing wounds of right lower extremity who presented to [facility] an d was found to be in septic shock. She was transferred to [facility] ICU on 04/13/2019. She has a h istory of a left BKA. She reports history of non healing wounds on her right leg with purule nt drainage and bone exposure. Vascular Surgery has been consulted for evaluation and treatm ent of her right lower extremity wounds and for consideration of amputation. She underwent right AKA on 04/14/2019. Events Overnight: POD 2. No acute events overnight. Off pressors. Transferred out of ICU. Prevena holding suction. Scheduled Medications allopurinol 300 mg Oral Daily aspirin 81 mg Oral Daily atorvastatin 80 mg Oral Daily clindamycin 600 mg Intravenous Q8H heparin (porcine) 5000 unit/0.5mL 5,000 Units Subcutaneous 3 times per day insulin detemir 24 Units Subcutaneous BID insulin lispro (human) 13 Units Subcutaneous TID AC insulin lispro (human) 3-9 Units Subcutaneous Nightly insulin lispro (human) 6-18 Units Subcutaneous TID AC isosorbide dinitrate 5 mg Oral BID nystatin Topical BID sodium bicarbonate 1,300 mg Oral TID vancomycin 1,000 mg Intravenous See Admin Instructions vancomycin 750 mg Intravenous See Admin Instructions venlafaxine 150 mg Oral Daily with breakfast Continuous Infusions PRN Medications acetaminophen OR acetaminophen, albuterol, dextrose, dextrose, docusate sodium OR d ocusate, ondansetron OR ondansetron, oxyCODONE OR oxyCODONE OR oxyCODONE, petrol atum, sodium chloride 0.9 % OBJECTIVE Vital Signs: BP 112/65 (BP Location: Right forearm) | Pulse 118 | Temp 98.1 F (36.7 C) (Oral) | R bean 20 | Wt 123.7 kg (272 lb 11.3 oz) | LMP 10/04/2011 | SpO2 96% | BMI 39.13 kg/m Constitutional: Well nourished, no signs of distress HENT: Non icteric sclerae, oropharynx clear. Normocephalic and atraumatic Cardiovascular: Normal rate, regular rhythm Pulmonary/Chest: No respiratory distress Abdominal: Soft. No abdominal distension or tenderness. No masses palpated and no hepatomeg lexi. No organomegaly. No abdominal pulsatile mass noted Musculoskeletal: Normal range of motion. No evidence of arthritis. Gangrene wounds to bilat eral thumbs. Extremities: No cyanosis or clubbing. Neurological: She is alert and oriented. VASCULAR: Palpable femoral pulse bilaterally. Left BKA present. Right leg AKA with prevena dressing in place and holding suction. DATA CBC: Lab Results Component Value Date WBC 54.49 (HH) 04/15/2019 RBC 3.32 (L) 04/15/2019 HGB 9.5 (L) 04/15/2019 HCT 28.9 (L) 04/15/2019 MCV 87.0 04/15/2019 MCH 28.5 04/15/2019 MCHC 32.8 04/15/2019 RDW 51.2 04/15/2019 PLT 330 04/15/2019 MPV 8.2 04/15/2019 DIFFTYPE MANUAL 04/15/2019 BMP: Lab Results Component Value Date NA 135 04/16/2019 K 4.7 04/16/2019 CL 107 04/16/2019 CO2 23 04/16/2019 ANIONGAP 10 04/16/2019 GLUF 173 (H) 04/16/2019 BUN 63 (H) 04/16/2019 CREATININE 2.42 (H) 04/16/2019 CREATININE 3.11 (A) 11/17/2017 BCR 26 04/16/2019 CA 7.1 (L) 04/16/2019 CA 9.4 07/01/2017 EGFR 21 (L) 04/16/2019 PROBLEM LIST Principal Problem: Septic shock (HCC) Active Problems: Morbid obesity (HCC) Hx of BKA, left (HCC) CHF (congestive heart failure) (HCC) CKD (chronic kidney disease), stage IV Metabolic acidosis ICD (implantable cardioverter-defibrillator), single, 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, with long-term current use of insulin (HCC) Ischemic cardiomyopathy Sepsis (HCC) Gangrene of extremity (HCC) Hyperkalemia Lactic acidosis Hyponatremia ASSESSMENT & PLAN Non healing wounds of right lower extremity / Sepsis / Status post right AKA - POD 2 and of f of pressors. Transferred out of ICU yesterday. Prevena holding suction. Continue pain jonh gement and antibiotics per primary team. Will plan to take down prevena dressing on POD 3 an d check incision. Vascular will continue to follow. Code Status: Full Code Anderson Lopez PA-C 04/16/2019 Mari Sanabria MD - 04/16/2019 8:06 AM PDT Progress Notes by Mari Mcdaniel MD at 04/16/19 08 Author: Mari Mcdaniel MD Service: Cardiology Author Type: Physician Filed: 04/16/19837 Date of Service: 04/16/19805 Status: Addendum Chief Pharmacist: Mari Mcdaniel MD (Physician) Related Notes: Original Note by Mari Mcdaniel MD (Physician) filed at 04/16/19837 [facility] Service: Cardiology Progress Note Name of International First Officer: Mari Mcdaniel MD I have seen the patient on 04/16/2019, off pressor support. Had right LE AKA. Out of ICU. SUBJECTIVE Current Facility-Administered Medications: acetaminophen (TYLENOL) tablet 650 mg, 650 mg, Oral, Q6H PRN, 650 mg at 04/15/19 1012 OR acetaminophen (TYLENOL) suppository 650 mg, 650 mg, Rectal, Q6H PRN, REBECCA Escobar albuterol (PROVENTIL HFA;VENTOLIN HFA) inhaler, 2 puff, Inhalation, Q4H PRN, REBECCA Escobar allopurinol (ZYLOPRIM) tablet 300 mg, 300 mg, Oral, Daily, Altaf Ramires MD, 300 mg at 04/15/19 1134 aspirin chewable tablet 81 mg, 81 mg, Oral, Daily, Altaf Ramires MD, 81 mg at 1134 atorvastatin (LIPITOR) tablet 80 mg, 80 mg, Oral, Daily, Altaf Ramires MD, 80 mg at 04/15/19 1134 clindamycin (CLEOCIN) IVPB 600 mg, 600 mg, Intravenous, Q8H, REBECCA Escobar, 6 00 mg at 04/16/19 0251 dextrose 50 % solution 25 mL, 25 mL, Intravenous, PRN, REBECCA Escobar dextrose 50 % solution 50 mL, 50 mL, Intravenous, PRN, REBECCA Escobar docusate sodium (COLACE) capsule 100 mg, 100 mg, Oral, BID PRN OR docusate (COLACE ) 50 mg/5 mL liquid 100 mg, 100 mg, Per OG Tube, BID PRN, REBECCA Escobar heparin (porcine) 5000 unit/0.5mL injection 5,000 Units, 5,000 Units, Subcutaneous, 3 times per day, REBECCA Escobar, 5,000 Units at 04/16/19 0623 insulin detemir (LEVEMIR) injection 24 Units, 24 Units, Subcutaneous, BID, REBECCA Davila, 24 Units at 04/15/19 211 insulin lispro (human) (HUMALOG) injection 13 Units, 13 Units, Subcutaneous, TID AC, V [place] REBECCA Armstrong, 13 Units at 04/15/19 1304 insulin lispro (human) (HUMALOG) injection 3-9 Units, 3-9 Units, Subcutaneous, Nightly , REBECCA Escobar, 6 Units at 04/15/192112 insulin lispro (human) (HUMALOG) injection 6-18 Units, 6-18 Units, Subcutaneous, TID A C, REBECCA Escobar, 8 Units at 04/16/19 0628 nystatin (MYCOSTATIN) powder, , Topical, BID, Bryant REBECCA Peña ondansetron (ZOFRAN-ODT) disintegrating tablet 4 mg, 4 mg, Oral, Q6H PRN OR ondans etron (ZOFRAN) injection 4 mg, 4 mg, Intravenous, Q6H PRN, REBECCA Escobar, 4 mg at 0 04/15/19 1012 oxyCODONE (ROXICODONE) immediate release tablet 5 mg, 5 mg, Oral, Q4H PRN OR oxyCO DONE (ROXICODONE) immediate release tablet 10 mg, 10 mg, Oral, Q4H PRN OR oxyCODONE (WADE ICODONE) immediate release tablet 15 mg, 15 mg, Oral, Q4H PRN, REBECCA Escobar, 15 mg at 04/16/19 0536 petrolatum (LUBRIFRESH P.M.) ophthalmic ointment, , Both Eyes, PRN, REBECCA Escobar sodium bicarbonate tablet 1,300 mg, 1,300 mg, Oral, TID, Altaf Ramires MD, 1,300 mg at 04/16/19 0625 sodium chloride 0.9 % flush 10 mL, 10 mL, Intravenous, PRN, Mari Mcdaniel MD vancomycin (VANCOCIN) 1000 mg/250 mL IVPB, 1,000 mg, Intravenous, See Admin Instructio ns, REBECCA Escobar vancomycin (VANCOCIN) 750 mg/250 mL IVPB, 750 mg, Intravenous, See Admin Instructions, REBECCA Escobar venlafaxine (EFFEXOR-XR) 24 hr capsule 150 mg, 150 mg, Oral, Daily with breakfast, Sal Ramires MD, 150 mg at 04/15/19 1134 OBJECTIVE Vital Signs: BP 112/65 (BP Location: Right forearm) | Pulse 118 | Temp 98.1 F (36.7 C) (Oral) | R bean 20 | Wt 123.7 kg (272 lb 11.3 oz) | LMP 10/04/2011 | SpO2 96% | BMI 39.13 kg/m Intake/Output Summary (Last 24 hours) at 04/16/19 0806 Last data filed at 04/16/19 0804 Gross per 24 hour Intake 650 ml Output 1650 ml Net -1000 ml Cardiovascular: Regular rhythm, S1 normal and S2 normal. No murmur heard. Pulses: Radial pulses are 2+ on the right side, and 2+ on the left side. Pulmonary/Chest: Effort normal and breath sounds normal. No wheezes. No rales. Abdominal: Soft. No tenderness. Musculoskeletal: Left BKA, right AKA. Neurological: Alert. Sleepy. Skin: Warm and dry. DATA Recent Labs Lab 04/16/19 0249 04/15/19 2025 04/15/19 1130 04/15/19 0208 04/14/19 1525 04/14/19 0409 04/13/19 2329 NA 133* 133* 133* 132* < > 130* < > 127* < > 130* K -- -- -- 4.7 -- 4.9 -- 4.8 -- 4.8 CO2 -- -- -- 21* -- -- -- 22* -- 20* BUN -- -- -- 75* -- -- -- 83* -- 85* CREATININE -- -- -- 2.77* -- -- -- 3.6* -- 3.53* EGFR -- -- -- 18* -- -- -- 13* -- 14* MG -- -- -- 2.2 -- 2.1 -- 2.4 -- -- < > = values in this interval not displayed. Recent Labs Lab 04/15/19 0208 04/14/19 1525 04/14/19 1252 04/14/19 0409 WBC 54.49* -- 45.17* 57.62* HGB 9.5* 9.5* 8.7* 7.1* HCT 28.9* 29.9* 27.1* 22.5* MCV 87.0 -- 85.3 84.4 PLT 330 -- 343 408* Recent Labs Lab 04/14/19 0409 INR 2.2 Lab Results Component Value Date CHOL 164 11/21/2018 TRIG 354 (A) 11/21/2018 LDL 60 11/21/2018 HDL 33 11/21/2018 GLUF 133 (H) 04/15/2019 HGBA1C 6.6 (H) 04/14/2019 TSH 5.33 (A) 04/02/2015 EK04/13/2019 Reviewed showed normal sinus rhythm, RBBB, poor R wave progression. Last Echo: 04/13/2019 Last Echo, 03/24/2017 Normal LV size, with [...] ASSESSMENT & PLAN Patient is 49 y.o. is 1. Right lower Ext wet gangrenous, S/P LE AKA. 2. Coronary artery disease. 3. Ischemic cardiomyopathy. EF 30-35%. 4. Diabetes mellitus insulin dependent. 5. Acute on chronic kidney disease. 6. Hyperkalemia. Improved. 7. Anemia, likely of chronic disease. 8. Morbid obesity. 9. Tachycardia. Recommendations: EF still in the 3--35% range, known akinetic anterior wall and apical segments. Has known totally occluded LAD. Will start medical therapy for cardiomyopathy. Isosorbide 5 mg bid. Low dose metoprolol succinate. Continue ABx. Will continue following. Medical management by the hospitalist team. Code Status: Full Code Mari Mcdaniel MD 04/16/2019 onversion Transac tion, Provider Unknown - 04/16/2019 7:07 AM PDTFormatting of this note might be different f rom the original. Nurse Progress Note by Mc Arredondo RN at 04/16/19706 Author: Mc Arredondo RN Service: (none) Author Type: Registered Nurse Filed: 04/16/191920 Date of Service: 04/16/19706 Status: Signed Chief Pharmacist: Mc Arredondo RN (Registered Nurse) Pt in room. Pt tachycardic, otherwise VSS. Pain controlled with PRN narcotics. Second b ladder scan post noel removal was 523, aware, see orders. End of shift review complete. Mc Arredondo RN Angie Pennington - 04/15/2019 5:25 PM PDTFormatting of this note might be different from t he original. Progress Notes by Angie Díaz MD at 04/15/19 7325 Author: Angie Díaz MD Service: (none) Author Type: Physician Filed: 04/15/19 1728 Date of Service: 04/15/191724 Status: Signed Chief Pharmacist: Angie Díaz MD (Physician) Patient being transferred from ICU to Hospitalist Service Notes reviewed and Patient Interviewed Patient resting comfortably in Bed Denies any distress at this time Shaji LE MAN Vitals Normal Orders noted onversion Trans action, Provider Unknown - 04/15/2019 4:57 PM PDT Progress Notes by Bibi Pacheco RD at 04/15/191656 Author: Bibi Pacheco RD Service: (none) Author Type: Registered Dietitian Filed: 04/15/191656 Date of Service: 04/15/191656 Status: Signed Chief Pharmacist: Bibi Pacheco RD (Registered Dietitian) 04/15/19 1214 Subjective Timepoint Admit Pt c/o Consult, thank you, to assess pt for nutritional status. Pt awake, sitting up in be d eating lunch at time of visit. Admitted for infection/gangrenous RLE, s/p right AKA yeste rday. Pt reports low appetite but she's eating "because I know I should". No c/o N/V/D. Diet Experience Self-selected diet(s) followed Pt reports "fuzzy memory" of last day or two [employer], but up unt il then was eating per her normal. No recollection of intake or weight changes. Fluid / Beverage Intake Oral Fluids Amount ad andrew Liquid Meal Replacement or Supplement pt accepting of oral nutrition supplement, indicated while po intake is sub-optimal Food Intake Amount of Food poor intake [employer] and prior to surgery yesterday; per pt and RN her intake is improving Type of Food / Meals dysphagia advanced - soft foods only Meal / Snack Pattern pt will order independently Nutrition-Focused Physical Findings Overall Appearance Class III obesity - negative nutrition focused physical exam - acute los s of appetite and poor oral intake for a few days immediately [employer] per pt report. No signifi cant wt loss except for surgically. Adjusted BMI, IBW, and metabolic weight adjustment for est needs. Body Language friendly, polite, cooperative; pt got a bit emotionally labile, admitted feel ing grief for not managing her wound care and losing her leg. Extremities, Muscles and Bones no edema documented or observed Digestive System (Mouth to Rectum) chewing deficit r/t no dentures (left at home) but with soft foods pt is able to eat full meals, no problems swallowing per pt. Please consult POWERED BRIDGE SPECIALIST for eval if concern for aspiration Nerves and Cognition A&O x 4 Skin intact except for surgical incisions and sores on fingers (pics in paper chart) Anthropometrics Weight change Pt UBW was 135.2kg 10/18/2018, admit wt 128.9kg, a drop of 4.6% in 6 months, n ot significant wt loss. EDW s/p AKA now ~110-115kg, with I/Os up by almost 10L, and loss of 16% BW from right AKA + left BKA. New IBW ~57.5kg, adj'd BW for est needs is 76.1kg of met abolic weight d/t Class III obesity (adjusted BMI 43.7 post-op). Biochemical data, medical tests, and procedures reviewed Biochemical data, medical tests, and procedures reviewed labs/meds reviewed Estimated Energy Needs Total Energy Estimated Needs 1900-2280kcal Method for Estimating Needs 25-30kcal/kg adj'd BW (post amp) 76.1kg, (adj'd BW calculated w ith pt's adj'd IBW 57.5kg s/p right AKA plus left BKA) Estimated Protein Needs Total Protein Estimated Needs 90-115g Method for Estimating Needs 1.2-1.5g/kg adj'd BW 76.1kg Recommendations Recommended energy needs Continue diabetic maintenance diet, with soft foods (dysphagia adv anced) per pt preference while no dentures (left at home). Providing Boost Glucose Control, BID with added Stanley for wound healing at mid-am/pm snack times, and a third Boost GC at HS . Following with team. Nutritional Risk Nutritional risk Moderate Follow up date 04/20/19 Bibi Pacheco Mari Reyna ra, MD - 04/15/2019 10:59 AM PDT Progress Notes by Mari Mcdaniel MD at 04/15/19 9876 Author: Mari Mcdaniel MD Service: Cardiology Author Type: Physician Filed: 04/15/19 1121 Date of Service: 04/15/19 1059 Status: Signed Chief Pharmacist: Mari Mcdaniel MD (Physician) [facility] Service: Cardiology Progress Note Name of International First Officer: Mari Mcdaniel MD I have seen the patient on 04/15/2019, off pressor support. Had right LE AKA. SUBJECTIVE Current Facility-Administered Medications: acetaminophen (TYLENOL) tablet 650 mg, 650 mg, Oral, Q6H PRN, 650 mg at 04/15/19 1012 OR acetaminophen (TYLENOL) suppository 650 mg, 650 mg, Rectal, Q6H PRN, REBECCA Escobar albuterol (PROVENTIL HFA;VENTOLIN HFA) inhaler, 2 puff, Inhalation, Q4H PRN, REBECCA Escobar allopurinol (ZYLOPRIM) tablet 300 mg, 300 mg, Oral, Daily, Altaf Ramires MD aspirin chewable tablet 81 mg, 81 mg, Oral, Daily, Altaf Ramires MD atorvastatin (LIPITOR) tablet 80 mg, 80 mg, Oral, Daily, Altaf Ramires MD clindamycin (CLEOCIN) IVPB 600 mg, 600 mg, Intravenous, Q8H, REBECCA Escobar, 6 00 mg at 04/15/19 0429 dextrose 10 % infusion, , Intravenous, PRN, REBECCA Escobar dextrose 5 % solution, , Intravenous, Continuous, Ericka Rees DO, Last Rate: 30 mL/hr at 04/14/19 1475 dextrose 50 % solution 25 mL, 25 mL, Intravenous, PRN, REBECCA Escobar dextrose 50 % solution 5-50 mL, 5-50 mL, Intravenous, PRN, REBECCA Escobar dextrose 50 % solution 50 mL, 50 mL, Intravenous, PRN, REBECCA Escobar docusate sodium (COLACE) capsule 100 mg, 100 mg, Oral, BID, 100 mg at 04/15/19 1012 OR docusate (COLACE) 50 mg/5 mL liquid 100 mg, 100 mg, Per OG Tube, BID, REBECCA Escobar, 100 mg at 04/14/19 1464 fenofibrate tablet 160 mg, 160 mg, Oral, Daily, Altaf Ramires MD heparin (porcine) 5000 unit/0.5mL injection 5,000 Units, 5,000 Units, Subcutaneous, 3 times per day, REBECCA Escobar, 5,000 Units at 04/15/19 0515 insulin detemir (LEVEMIR) injection 24 Units, 24 Units, Subcutaneous, BID, REBECCA Davila insulin detemir (LEVEMIR) injection 6 Units, 6 Units, Subcutaneous, Once, Sheron Weems lllolly, REBECCA insulin lispro (human) (HUMALOG) injection 13 Units, 13 Units, Subcutaneous, TID AC, V [place] Patti, REBECCA insulin lispro (human) (HUMALOG) injection 3-9 Units, 3-9 Units, Subcutaneous, Nightly , REBECCA Escobar insulin lispro (human) (HUMALOG) injection 6-18 Units, 6-18 Units, Subcutaneous, TID A C, REBECCA Escobar insulin regular 1 unit/mL (HUMULIN R,NOVOLIN R) bolus from bag 1-50 Units, 1-50 Units, Intravenous, Bolus from bag PRN, REBECCA Escobar, 5 Units at 04/14/19 0112 insulin regular 1 unit/mL (HUMULIN R,NOVOLIN R) infusion, 0.1-50 Units/hr, Intravenous , Continuous, REBECCA Escobar, Last Rate: 4.8 mL/hr at 04/15/19 0624, 4.8 Units/hr at 04/15/19 0624 norepinephrine in D5W 64 mcg/mL (LEVOPHED) 64 mcg/mL infusion, 0-20 mcg/min, Intraveno us, Titrated, REBECCA Escobar, Stopped at 04/15/19 1017 nystatin (MYCOSTATIN) 692090 units/mL suspension 500,000 Units, 5 mL, Mouth/Throat, 4x Daily PRN, REBECCA Escobar, 500,000 Units at 04/14/19 0935 nystatin (MYCOSTATIN) cream, , Topical, TID PRN, REBECCA Escobar nystatin (MYCOSTATIN) powder, , Topical, BID, BryantREBECCA Monge ondansetron (ZOFRAN-ODT) disintegrating tablet 4 mg, 4 mg, Oral, Q6H PRN OR ondans etron (ZOFRAN) injection 4 mg, 4 mg, Intravenous, Q6H PRN, REBECCA Escobar, 4 mg at 0 04/15/19 1012 oxyCODONE (ROXICODONE) immediate release tablet 5 mg, 5 mg, Oral, Q4H PRN OR oxyCO DONE (ROXICODONE) immediate release tablet 10 mg, 10 mg, Oral, Q4H PRN OR oxyCODONE (WADE ICODONE) immediate release tablet 15 mg, 15 mg, Oral, Q4H PRN, REBECCA Escobar petrolatum (LUBRIFRESH P.M.) ophthalmic ointment, , Both Eyes, PRN, REBECCA Escobar sodium bicarbonate tablet 1,300 mg, 1,300 mg, Oral, TID, Altaf Ramires MD sodium chloride 0.9 % flush 10 mL, 10 mL, Intravenous, PRN, Mari Mcdaniel MD sodium chloride 0.9 % infusion, , Intravenous, Continuous, Ericka Rees DO, Last Rate: 30 mL/hr at 04/14/19 2355 vancomycin (VANCOCIN) 1000 mg/250 mL IVPB, 1,000 mg, Intravenous, See Admin Instructio ns, REBECCA Escobar vancomycin (VANCOCIN) 750 mg/250 mL IVPB, 750 mg, Intravenous, See Admin Instructions, REBECCA Escobar venlafaxine (EFFEXOR-XR) 24 hr capsule 150 mg, 150 mg, Oral, Daily with breakfast, Sal Ramires MD OBJECTIVE Vital Signs: BP 104/69 | Pulse 101 | Temp 98.4 F (36.9 C) (Oral) | Resp 26 | Wt 123.7 kg (272 lb 11.3 oz) | LMP 10/04/2011 | SpO2 94% | BMI 39.13 kg/m Intake/Output Summary (Last 24 hours) at 04/15/19 1059 Last data filed at 04/15/19 0700 Gross per 24 hour Intake 7342.8 ml Output 1595 ml Net 5747.8 ml Cardiovascular: Regular rhythm, S1 normal and S2 normal. No murmur heard. Pulses: Radial pulses are 2+ on the right side, and 2+ on the left side. Pulmonary/Chest: Effort normal and breath sounds normal. No wheezes. No rales. Abdominal: Soft. No tenderness. Musculoskeletal: Left BKA, right AKA. Neurological: Alert. Sleepy. Skin: Warm and dry. DATA Recent Labs Lab 04/15/19 0208 04/14/19 1944 04/14/19 1525 04/14/19 0409 04/13/19 2329 NA 132* 131* 130* < > 127* < > 130* K 4.7 -- 4.9 -- 4.8 -- 4.8 CO2 21* -- -- -- 22* -- 20* BUN 75* -- -- -- 83* -- 85* CREATININE 2.77* -- -- -- 3.6* -- 3.53* EGFR 18* -- -- -- 13* -- 14* MG 2.2 -- 2.1 -- 2.4 -- -- < > = values in this interval not displayed. Recent Labs Lab 04/15/19 0208 04/14/19 1525 04/14/19 1252 04/14/19 0409 WBC 54.49* -- 45.17* 57.62* HGB 9.5* 9.5* 8.7* 7.1* HCT 28.9* 29.9* 27.1* 22.5* MCV 87.0 -- 85.3 84.4 PLT 330 -- 343 408* Recent Labs Lab 04/14/19 0409 INR 2.2 Lab Results Component Value Date CHOL 164 11/21/2018 TRIG 354 (A) 11/21/2018 LDL 60 11/21/2018 HDL 33 11/21/2018 GLUF 133 (H) 04/15/2019 HGBA1C 6.6 (H) 04/14/2019 TSH 5.33 (A) 04/02/2015 EK04/13/2019 Reviewed showed normal sinus rhythm, RBBB, poor R wave progression. Last Echo: 04/13/2019 Last Echo, 03/24/2017 Normal LV size, with [...] ASSESSMENT & PLAN Patient is 49 y.o. is 1. Septic shock, improved. 2. Right lower Ext wet gangrenous, S/P LE AKA. 3. Coronary artery disease. 4. Ischemic cardiomyopathy. EF 30-35%. 5. Diabetes mellitus insulin dependent. 6. Acute on chronic kidney disease. 7. Hyperkalemia. Improved. 8. Anemia, likely of chronic disease. 9. Morbid obesity. Recommendations: EF still in the 3--35% range, known akinetic anterior wall and apical segments. Has known totally occluded LAD. Will start medical therapy for cardiomyopathy when hemodynamics allow. Continue ABx. Consider starting lowing dose nitrate when blood pressure allows. Will continue following. Medical management by the ICU team. Code Status: Full Code Mari Mcdaniel MD 04/15/2019 onversion Transac tion, Provider Unknown - 04/15/2019 9:35 AM PDTFormatting of this note might be different f rom the original. Case Management by DENZEL Kirkland at 04/15/19 9843 Author: DENZEL Kirkland Service: (none) Author Type: Internal Corrosion Specialist Filed: 04/15/19 1442 Date of Service: 04/15/1936 Status: Addendum Chief Pharmacist: DENZEL Kirkland (Internal Corrosion Specialist) Related Notes: Original Note by DENZEL Kirkland (Internal Corrosion Specialist) filed at 04/15/19 8290 CM met with pt for discharge planning. Pt is 49 years old and lives with her roommate in a [id number] apt. Pt has 5 stairs at the main entrance. Pt has a tub-shower & shower-katlyn ir. Pt owns a 4 wheel walker and manual wheelchair. Pt uses [facility] for her transportation needs. Pt denied any difficulty obtaining her medications. Pt under went a right AKA on 04/14/19. Pt requested assistance obtaining an electric wheelchair and help g etting into a handicap accessible low-income apt complex in [place] called [facility] CM will continue to monitor physical therapy's recommendations for discharge planning. 04/15/19 0910 Discharge Planning Evaluation Admitting Diagnosis Wet gangrene of right lower extremity with sepsis. Readmission No Living Arrangements Other (Comment) (roommate) Support Systems Children;Friends/neighbors Type of Residence Private residence House type Apartment Elevator available No Steps to enter 5 Bathrooms on 1st Floor 1-Full Independent with ADL's No-comment Independent with Mobility No-comment (wheelchair) Home Care Services No Caregiver after Discharge No Mental Status Oriented Resources Financial concerns No Transportation issues No Patient/Family concerns Yes (apt is not handicap accessable. ) Prescription Plan Yes Anticipated Disposition Facility Type Home Met with: Patient and discussed discharge planning, Pt is a 49 y.o., female Patient's PCP is: DANIEL BHAKTA Patient's insurance: Medicare Coverage concerns: None Medication coverage/concerns: None Community resources utilized / needed: None Assistance in transportation: Not needed. Identification of any specific education / training: None Barriers to Discharge / Alternative housing needed: None Anticipated DCP: Pending. Ga Graham ae, MD - 04/15/2019 8:15 AM PDTFormatting of this note might be different from the origin al. Progress Notes by Derrick Cook MD at 04/15/19814 Author: Derrick Cook MD Service: Vascular Surgery Author Type: Physician Filed: 04/15/19827 Date of Service: 04/15/19814 Status: Signed Chief Pharmacist: Derrick Cook MD (Physician) [facility] Service: Vascular Surgery Progress Note S/p right AKA for wet gangrene and sepsis. Doing much better this AM. Coming down on pres sor requirements. Having pain but to be expected. Will keep Prevena dressings in place for 2 more days. Will continue to follow along with you. Please feel free to call with any qu estions or concerns. Derrick Cook MD 04/15/2019 onversion Transshama, Idalmis rajeev Unknown - 04/15/2019 7:38 AM PDT Therapy Progress Note by Supriya Peacock OTR/L at 04/15/19737 Author: GARCIA Schneider/Sher Service: (none) Author Type: Occupational Therapist Filed: 04/15/19737 Date of Service: 04/15/19737 Status: Signed Chief Pharmacist: DEMETRIO Schneider (Occupational Therapist) 04/15/19736 OT Last Visit OT Received On 04/15/19 Requires OT Follow Up On hold Other Comments Comments Patient to OR 04/14 for right above knee amputation. Will await new orders as appro priate. Bryant Higgins ARNP - 04/15/2019 5:15 AM PDTFormatting of this note might be different from the o riginal. Progress Notes by REBECCA Antonio at 04/15/19514 Author: REBECCA Antonio Service: Claims Adjuster Crop Author Type: Advanced Registered Nurse Practitioner Filed: 04/15/1936 Date of Service: 04/15/19514 Status: Addendum Chief Pharmacist: REBECCA Antonio (Advanced Registered Nurse Nereyda) Related Notes: Original Note by REBECCA Antonio (Advanced Registered Nurse Practitionsavanna r) filed at 04/15/1935 [facility] Service: Claims Adjuster Crop Progress Note Alondrabalwinder Liupatricia Caballero 49 y.o. Hospital Day: LOS: 2 days Post-Op Day: * No surgery found * Consulting Physicians Treatment Team: Consulting Physician: Mari Mcdaniel MD Consulting Physician: Derrick Cook MD Admitting Provider: Altaf Ramires MD SUBJECTIVE Patient Summary: From Bryant Hendrickson (04/13): "The patient is a 49 y.o. female with si gnificant past medical history of Methamphetamine use stopped 8 years ago, Diabetes type 2 on insulin, CKD stage IV, CAD, cardiac stent, CHF, left BKA who presented to [facility] ER via EMS with leg swelling and pain. About 4 weeks ago the patient noticed her right leg forming some blisters that her caregivers non medical was managing. The pt stated that her caregiver has been out of town for 4 weeks and that her roommate was taking care of her needs and wou nd care during that time. Per patient, when the caregiver returned today to change her wound dressing, the wound had become significantly worse since the last time she was there with p urulent drainage, necrotic tissue, redness extending from right foot to knee and a very foul odor. The caregiver then called EMS to have patient transferred to the ER for further kahlil p. Upon arrival to ER pt was not in shock initially, pertinent initial labs: WBC 50.9, lactic Acid 1.9, Creatinine 3.78, BUN 26, Na 122, K+ 6.5. Pt received kayexalate, started on vancom ycin and zosyn. Shortly after arrival pt went into shock, received 3L IV fluids then started on low dose levophed drip. [facility] ICU was consulted and pt was then transferred for higher delia of care." ICU Timeline: 04/13: Admitted ICU. Pt in shock received 5L IVF, on levophed drip. Started on Vanco and Zosyn. 04/14: OR with Dr Cook for right AKA, pt weaned off levophed Events Overnight: Pt remains off pressors. Episode of hypotension, 2L LR given, SBP re mained stable. SCHEDULED MEDICATIONS clindamycin 600 mg Intravenous Q8H docusate sodium 100 mg Oral BID Or docusate 100 mg Per OG Tube BID heparin (porcine) 5000 unit/0.5mL 5,000 Units Subcutaneous 3 times per day nystatin Topical BID vancomycin 1,000 mg Intravenous See Admin Instructions vancomycin 750 mg Intravenous See Admin Instructions CONTINUOUS INFUSIONS dextrose dextrose 30 mL/hr at 04/14/19 2356 insulin regular 1 unit/mL 3.8 Units/hr (04/15/19 8400) norepinephrine 5 mcg/min (04/15/19 6837) sodium chloride (IV) 30 mL/hr at 04/14/19 3305 OBJECTIVE VITAL SIGNS Temp: [97 F (36.1 C)-99.5 F (37.5 C)] 98 F (36.7 C) Heart Rate: [80-106] 87 Resp: [9-33] 20 BP: (96-157)/(44-80) 108/53 Arterial Line BP: (77-121)/(30-54) 108/49 FiO2 : [47 %-95 %] 89 % CVP (mean): [2 mmHg-343 mmHg] 5 mmHg (04/15 0445) Intake/Output Summary (Last 24 hours) at 04/15/19 0515 Last data filed at 04/15/19 0500 Gross per 24 hour Intake 41540 ml Output 1285 ml Net 9120 ml EXAM GEN: awake, alert, oriented x3, NAD, Obese, well nourished NEURO: PERRLA, EOMI, no facial asymmetry, moves all extremities, follows commands. GCS: 15 HEENT: sclerae clear, nonicteric, oral mm dry, pink, no exudates NECK: supple, trachea midline CV: RRR, S1/S2, no murmur, rub or gallop, peripheral pulses palpable, cap refill brisk LUNGS: clear b/l, no wheezing, rales or rhonchi, symmetric chest expansion, even/unlabored respirations ABD: obese, soft, nondistended, nontender to palpation, no masses, redness and skin breakdo wn between skin folds EXTR: edema right LE, no clubbing or cyanosis, Right BKA, Left AKA, right thumb wound with necrotic tissue, see photo documentation. SKIN: warm, dry, facial rash; e/o skin breakdown over the occiput, sacrum, skin breakdown u nder skin folds, see photo documentation. LINES/TUBES: PIV, Noel (04/13), Left IJ CVC (04/13). Prevena left leg. DATA Recent Labs Lab 04/15/19 0208 04/14/19 1525 04/14/19 1252 04/14/19 0409 04/13/19 1922 WBC 54.49* -- 45.17* 57.62* 45.95* RBC 3.32* -- 3.18* 2.67* 2.97* HGB 9.5* 9.5* 8.7* 7.1* 7.8* HCT 28.9* 29.9* 27.1* 22.5* 25.3* MCV 87.0 -- 85.3 84.4 85.1 MCH 28.5 -- 27.5 26.6* 26.1* MCHC 32.8 -- 32.2 31.6* 30.7* RDW 51.2 -- 50.8 47.7 48.6 PLT 330 -- 343 408* 445* MPV 8.2 -- 7.4 8.1 8.0 BANDSABS -- -- -- 4.03* 6.43* MORPH -- -- -- 1+ 2+ Recent Labs Lab 04/15/19 0208 04/14/19 1944 04/14/19 1525 04/14/19 0409 04/13/19232804/13/191921 NA 132* 131* 130* < > 127* < > 130* 127* K 4.7 -- 4.9 -- 4.8 -- 4.8 6.0* CL 102 -- -- -- 96* -- 99 97* CO2 21* -- -- -- 22* -- 20* 16* ANIONGAP 14 -- -- -- 14 -- 16 20 GLUF 133* -- -- -- 188* -- 266* 410* BUN 75* -- -- -- 83* -- 85* 86* CREATININE 2.77* -- -- -- 3.6* -- 3.53* 3.68* BCR 27 -- -- -- 23 -- 24 23 CA 7.7* -- -- -- 7.6* -- 6.5* 6.6* ALB -- -- -- -- -- -- -- 2.6* GLOB -- -- -- -- -- -- -- 3.1 AG -- -- -- -- -- -- -- 0.8* PROT -- -- -- -- -- -- -- 5.7* BILITOT -- -- -- -- -- -- -- 0.9 ALT -- -- -- -- -- -- -- 32 AST -- -- -- -- -- -- -- 50* EGFR 18* -- -- -- 13* -- 14* 13* PHOS 4.8 -- 5.2* -- 3.7 -- -- 5.6* MG 2.2 -- 2.1 -- 2.4 -- -- 2.2 < > = values in this interval not displayed. Recent Labs Lab 04/14/19 0409 INR 2.2 IMAGING Images reviewed PROBLEM LIST Principal Problem: Septic shock (HCC) Active Problems: Morbid obesity (HCC) Hx of BKA, left (HCC) CHF (congestive heart failure) (HCC) CKD (chronic kidney disease), stage IV Metabolic acidosis ICD (implantable cardioverter-defibrillator), single, 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, with long-term current use of insulin (HCC) Ischemic cardiomyopathy Sepsis (HCC) Gangrene of extremity (HCC) Hyperkalemia Lactic acidosis Hyponatremia Resolved Problems: * No resolved hospital problems. * ASSESSMENT & PLAN NEURO: Non focal neuro exam CAM ICU every shift Hyponatremia. Likely due to hypovolemia, ERICK, medications. Na 122 initially. Target goal of 6-8 mEq increase within 24 hours. Resolving. D5W drip decreased. Na q6 hours CV: Shock. 2/2 Sepsis, dehydration. Pt resuscitated with 4L IV fluids, weaned off levphed dr ip (04/14). Episode hypotension pt given additional 2L LR, Resolving. pressors remain off. Titrate pressors for MAP goal >65. Continue abx, see ID. Bedside ECHO by Dr Mcdaniel, EF remains in 40% range from previous ECHO. Ischemic Cardiomyopathy. ICD in place, lower left abdomen. Hold BB, diuretics for now, r estart when shock has resolved. Cardiology is following. CHF. Hold home meds for now. Monitor PULM: No acute issues GI/NUTRITION: NPO Morbid Obesity. Continue supportive care. Will consult Dietitian for nutritional needs a nd malnutrition. RENAL/LYTES: ERICK on CKD stage 4. Likely due to shock, sepsis, dehydration. Pt being followed by Dr. Kyle caruso as outpatient, No need for HD at this time. Resolving. Monitor electrolytes Avoid nephrotoxins and renally dose medications Monitor I/Os Hyperkalemia. 2/2 ERICK/CKD, metabolic acidosis, sepsis. Pt received kayexalate at [facility]. No EKG changes. Resolved BMP ordered Metabolic Acidosis. 2/2 shock, sepsis, ERICK, Hyperglycemia. Bicarb 14, will give 2 amps s odium bicarb. Resolved. Lactic acidosis. 2/2 sepsis, shock. Pt received 5L IVF, on levophed drip. Trend lactic a cids. Resolved. ID: Sepsis. Likely due to Right LE wounds. Blood/wound cultures sent. Leukocytosis trending down. Procal pending. Initial Lactic Acid 1.9. Pt started on Vancomycin and zosyn, continue. HEME: Anemia. Chronic Likely due to CKD, mo e/o bleeding. H/H decreased overnight, 2 units PRB C ordered. H/H stable. Monitor CBC daily ENDO: Hyperglycemia. 2/2 uncontrolled Diabetes type 2, pt on insulin at home. Pt started on en dotool, goal BG 80-180. Type 2 Diabetes, poorly controlled. Pt on insulin at home. Endotool started, continue HgA1c 6.6. Consult video arcade manager MUSC/SKIN: Left BKA. Uses prosthesis at home to ambulate Gangrenous infection right LE. Likely due to uncontrolled Diabetes. Pt has loss of sensa tion to foot. Multiples areas of necrotic tissue, purulent drainage, wound appears to extend to bone. Pt was taken to OR for Left AKA by Dr. Cook, vascular following. Wound care consulted Turn q2 hours Skin care reviewed with RN PROPHYLAXIS: Stress ulcer prophylaxis: No indication DVT prophylaxis: Unable to tolerate SCDs, Heparin Disposition: ICU, care as per above. Code Status: Full Code *Please bill 50 minutes of critical care time spent evaluating the patient, reviewing the d srini and formulating a plan exclusive of all other procedures. REBECCA Vega 04/15/2019 onversion Transacti on, Provider Unknown - 04/15/2019 2:48 AM PDTFormatting of this note might be different fro m the original. Pharmacy Note by Nallely Brooks RPH at 04/15/19247 Author: Nallely Brooks RPH Service: Pharmacy Author Type: Pharmacist Filed: 04/15/19247 Date of Service: 04/15/19247 Status: Signed Chief Pharmacist: Nallely Brooks RPH (Pharmacist) Clinical Pharmacy Note: Vancomycin Day 3 Subjective / Objective Alondra Caballero 49 y.o. female Serum creatinine: 2.77 mg/dL (H) 04/15/19 0208 Estimated creatinine clearance: 36.3 mL/min (A) Vanco Level: 25.6 mcg/mL (04/15/19 at 0208) Assessment / Plan Renal Function: ERICK slightly improving, will continue to dose Vancomycin based on Renal Jacob lure protocol. Random level today (25.6 mcg/mL) is above goal 15 to 20 mcg/mL. No dose today. Patient's renal function is slightly improved but patient is unlikely to go below a level o f 15 before tomorrow morning. Daily level - Next level due tomorrow with AM labs. Nallely Brooks PharmD onver jessica Transaction, Provider Unknown - 04/14/2019 1:37 PM PDT Case Management by DENZEL Kirkland at 04/14/19 8607 Author: DENZEL Kirkland Service: (none) Author Type: Internal Corrosion Specialist Filed: 04/14/19 133 Date of Service: 04/14/19 1337 Status: Signed Chief Pharmacist: DENZEL Kirkland (Internal Corrosion Specialist) CM attempted to meet with pt but she was sleep. No family was present. CM will re-attempt a t a later time. Leonard DYKES onver jessica Spearsaction, Provider Unknown - 04/14/2019 11:30 AM PDT Therapy Progress Note by Kym Wilson PT at 04/14/19 1130 Author: Kym Wilson PT Service: (none) Author Type: Physical Therapist Filed: 04/14/19 1141 Date of Service: 04/14/19 1130 Status: Signed Chief Pharmacist: Kym Wilson PT (Physical Therapist) 04/14/19 1130 PT Last Visit PT Received On 04/14/19 Requires PT Follow Up On hold Other Comments Comments Pt to go into OR for AKA today. Plan to await new orders as appropriate following surgery. onver jessica Transaction, Provider Unknown - 04/14/2019 9:30 AM PDT Pharmacy Note by Madelaine Gallego RPH at 04/14/19929 Author: Madelaine Gallego RPH Service: Pharmacy Author Type: Pharmacist Filed: 04/14/19929 Date of Service: 04/14/19929 Status: Signed Chief Pharmacist: Madelaine Gallego RPH (Pharmacist) Vancomycin Monitoring Day 2 Serum creatinine: 3.6 mg/dL (H) 04/14/19408 Estimated creatinine clearance: 28 mL/min (A) WBC = 57.62 K/uL SCr still elevated, no plan for dialysis. Plan per protocol: Continue current ERICK protocol Daily random level in the AM 04/14/2019 9:29 AM Pharmacist: Madelaine Gallego ari Miguel ra, MD - 04/14/2019 6:04 AM PDT Progress Notes by Mari Mcdaniel MD at 04/14/19603 Author: Mari Mcdaniel MD Service: Cardiology Author Type: Physician Filed: 04/14/19614 Date of Service: 04/14/19603 Status: Signed Chief Pharmacist: Mari Mcdaniel MD (Physician) [facility] Service: Cardiology Progress Note Name of International First Officer: Mari Mcdaniel MD I have seen the patient on 04/14/2019, still on low dose norepinephrine. SUBJECTIVE Complains of leg pain. Current Facility-Administered Medications: acetaminophen (TYLENOL) tablet 650 mg, 650 mg, Oral, Q6H PRN OR acetaminophen (TYL ENOL) suppository 650 mg, 650 mg, Rectal, Q6H PRN, REBECCA Escobar albuterol (PROVENTIL HFA;VENTOLIN HFA) inhaler, 2 puff, Inhalation, Q4H PRN, REBECCA Escobar clindamycin (CLEOCIN) IVPB 600 mg, 600 mg, Intravenous, Q8H, REBECCA Escobar, 6 00 mg at 04/14/19 06 dextrose 10 % infusion, , Intravenous, PRN, REBECCA Escobar dextrose 10 % infusion, , Intravenous, Continuous PRN, REBECCA Antonio dextrose 5 % solution, , Intravenous, Continuous, Ericka Rees DO, Last Rate: 50 mL/hr at 04/14/19 0559 dextrose 50 % solution 12 mL, 12 mL, Intravenous, PRN, REBECCA Antonio dextrose 50 % solution 25 mL, 25 mL, Intravenous, PRN, REBECCA Antonio dextrose 50 % solution 5-50 mL, 5-50 mL, Intravenous, PRN, REBECCA Escobar docusate sodium (COLACE) capsule 100 mg, 100 mg, Oral, BID, Stopped at 04/13/194 * *OR docusate (COLACE) 50 mg/5 mL liquid 100 mg, 100 mg, Per OG Tube, BID, REBECCA Escobar fentaNYL (SUBLIMAZE) injection 25 mcg, 25 mcg, Intravenous, Q1H PRN, 25 mcg at 9 0415 OR fentaNYL (SUBLIMAZE) injection 50 mcg, 50 mcg, Intravenous, Q1H PRN, REBECCA Escobar glucagon (GLUCAGEN) injection 0.5 mg, 0.5 mg, Intramuscular, PRN, REBECCA Antonio glucagon (GLUCAGEN) injection 1 mg, 1 mg, Intramuscular, PRN, REBECCA Antonio heparin (porcine) 5000 unit/0.5mL injection 5,000 Units, 5,000 Units, Subcutaneous, 3 times per day, REBECCA Escobar, 5,000 Units at 04/14/19 0604 insulin regular 1 unit/mL (HUMULIN R,NOVOLIN R) bolus from bag 1-50 Units, 1-50 Units, Intravenous, Bolus from bag PRN, REBECCA Escobar, 5 Units at 04/14/19 0112 insulin regular 1 unit/mL (HUMULIN R,NOVOLIN R) infusion, 0.1-50 Units/hr, Intravenous , Continuous, REBECCA Escobar, Last Rate: 9.5 mL/hr at 04/14/19 0531, 9.5 Units/hr at 04/14/19 0531 norepinephrine in D5W 64 mcg/mL (LEVOPHED) 64 mcg/mL infusion, 0-20 mcg/min, Intraveno us, Titrated, REBECCA Escobar, Last Rate: 4.7 mL/hr at 04/13/192226, 5 mcg/min at 2226 nystatin (MYCOSTATIN) [id number] units/mL suspension 500,000 Units, 5 mL, Mouth/Throat, 4x Daily PRN, REBECCA Escobar nystatin (MYCOSTATIN) cream, , Topical, TID PRN, REBECCA Escobar nystatin (MYCOSTATIN) powder, , Topical, BID, Bryant REBECCA Peña ondansetron (ZOFRAN-ODT) disintegrating tablet 4 mg, 4 mg, Oral, Q6H PRN OR ondans etron (ZOFRAN) injection 4 mg, 4 mg, Intravenous, Q6H PRN, REBECCA Escobar petrolatum (LUBRIFRESH P.M.) ophthalmic ointment, , Both Eyes, PRN, REBECCA Escobar sodium chloride 0.9 % infusion, , Intravenous, Continuous, Ericka Rees DO, Last Rate: 15 mL/hr at 04/13/192146 vancomycin (VANCOCIN) 1000 mg/250 mL IVPB, 1,000 mg, Intravenous, See Admin Instructio ns, REBECCA Escobar vancomycin (VANCOCIN) 750 mg/250 mL IVPB, 750 mg, Intravenous, See Admin Instructions, REBECCA Escobar OBJECTIVE Vital Signs: BP 98/55 | Pulse 96 | Temp 98.7 F (37.1 C) | Resp 11 | LMP 10/04/2011 | SpO2 100% Intake/Output Summary (Last 24 hours) at 04/14/19 0604 Last data filed at 04/14/19 0400 Gross per 24 hour Intake 0 ml Output 632 ml Net -632 ml Cardiovascular: Regular rhythm, S1 normal and S2 normal. No murmur heard. Pulses: Radial pulses are 2+ on the right side, and 2+ on the left side. Pulmonary/Chest: Effort normal and breath sounds normal. No wheezes. No rales. Abdominal: Soft. No tenderness. Musculoskeletal: Left BKA, right wet gangrenous with purulent drainage. Neurological: Alert. Sleepy. Skin: Warm and dry. DATA Recent Labs Lab 04/14/19 0409 04/14/19 0145 04/13/19 2329 04/13/191921 NA 127* 130* 130* 127* K 4.8 -- 4.8 6.0* CO2 22* -- 20* 16* BUN 83* -- 85* 86* CREATININE 3.6* -- 3.53* 3.68* EGFR 13* -- 14* 13* MG 2.4 -- -- 2.2 Recent Labs Lab 04/14/19 0409 04/13/191921 WBC 57.62* 45.95* HGB 7.1* 7.8* HCT 22.5* 25.3* MCV 84.4 85.1 PLT 408* 445* Recent Labs Lab 04/14/19408 INR 2.2 Lab Results Component Value Date CHOL 164 11/21/2018 TRIG 354 (A) 11/21/2018 LDL 60 11/21/2018 HDL 33 11/21/2018 GLUF 188 (H) 04/14/2019 HGBA1C 6.6 (H) 04/14/2019 TSH 5.33 (A) 04/02/2015 EK04/13/2019 Reviewed showed normal sinus rhythm, RBBB, poor R wave progression. Last Echo: 04/13/2019 Last Echo, 03/24/2017 Normal LV size, with [...] ASSESSMENT & PLAN Patient is 49 y.o. is 1. Septic shock on low dose norepinephrine. 2. Right lower Ext wet gangrenous infection. 3. Coronary artery disease. 4. Ischemic cardiomyopathy. 5. Diabetes mellitus insulin dependent. 6. Acute on chronic kidney disease. 7. Hyperkalemia. Improved. 8. Anemia, likely of chronic disease. 9. Morbid obesity. Recommendations: Still on low dose norepinephrine. Surgical evaluation pending. EF still in the 40% range, known akinetic anterior wall and apical segments. Has known totally occluded LAD. Continue with pressor support. Will be started on cardiomyopathy therapy once hemodynamics stabilize. Will continue following. Medical management by the ICU team. Code Status: Full Code Mari Mcdaniel MD 04/14/2019 onversion Transac tion, Provider Unknown - 04/14/2019 4:45 AM PDTFormatting of this note might be different f rom the original. Pharmacy Note by Nallely Brooks RPH at 04/14/19444 Author: Nallely Brooks RPH Service: Pharmacy Author Type: Pharmacist Filed: 04/14/19444 Date of Service: 04/14/19444 Status: Signed Chief Pharmacist: Nallely Brooks RPH (Pharmacist) Clinical Pharmacy Note: Vancomycin Day 1 Referring Provider: REBECCA Stephenson Subjective / Objective Alondra Svitlanapatricia Caballero 49 y.o. female Height: 177.8 cm Weight: 135.2 kg Presentation: pain of extremity, wounds that have been being dressed by roommate found to h ave purulent drainage, necrotic tissue, redness and foul odor. Additional antibiotics ordered: none Vitals Tmax: 99.8 F HR max: 101 BP min: 98/55 Labs Serum creatinine: 3.53 mg/dL (H) 04/13/192328 Estimated creatinine clearance: 29.3 mL/min (A) NEUTROPHILS ABS Date Value Ref Range Status 11/21/2018 7.06 (A) 2.0 - 6.9 /L Corrected Lab Results Component Value Date/Time NEUTROABS 7.06 (A) 11/21/2018 02:53 AM Lab Results Component Value Date/Time NEUTABSMAN 34.00 (H) 04/13/2019 07:22 PM Lab Results Component Value Date WBC 45.95 (HH) 04/13/2019 Lactic Acid 139 at 04/16 4.2 at 04/13 Assessment Indication: sepsis source RLE gangrene Renal function status: ERICK on CKD stage 4 Will dose Vancomycin based on Renal Failure Protocol. Plan First dose of [id number] 1000 mg IV was given between 1300 and 1500 on 04/13/2019. Daily random level starting 0430 03/20/2019- goal 15 to 20 mcg/mL. Vancomycin 750 mg IV if level is 15 to 20 mcg/mL AND pt has hemodialysis or 1000 mg IV if l evel is less than 15 mcg/mL with or without HD. Nallely Brooks PharmD onver jessica Transaction, Provider Unknown - 04/14/2019 1:47 AM PDT Pharmacy Note by Nallely Brooks RPH at 04/14/19146 Author: Nallely Brooks RPH Service: Pharmacy Author Type: Pharmacist Filed: 04/14/19146 Date of Service: 04/14/19146 Status: Signed Chief Pharmacist: Nallely Brooks RPH (Pharmacist) Clinical Pharmacy Note: Renal Monitoring Alondra Caballero 49 y.o. female Ht Readings from Last 1 Encounters: 10/18/18 1.778 m (5' 10") Wt Readings from Last 1 Encounters: 10/18/18 135.2 kg (298 lb) Serum creatinine: 3.53 mg/dL (H) 04/13/192328 Estimated creatinine clearance: 29.3 mL/min (A) Pharmacy dosing for renal function per Sheron Armstrong. Only vancomycin is currently needing adjustment/monitoring for dosing. Pharmacy will continue to monitor for changes in medication orders and in renal function an d adjust accordingly. Nallely Brooks PharmD 04/14/2019 1:45 AM Bryant Higgnis ARNP - 04/14/2019 1:37 AM PDTFormatting of this note might be different from the o riginal. Progress Notes by REBECCA Antonio at 04/14/19136 Author: REBECCA Antonio Service: Claims Adjuster Crop Author Type: Advanced Registered Nurse Practitioner Filed: 04/14/19 07 Date of Service: 04/14/19136 Status: Addendum Chief Pharmacist: REBECCA Antonio (Advanced Registered Nurse Nereyda) Related Notes: Original Note by REBECCA Antonio (Advanced Registered Nurse Arron jones) filed at 04/14/19 0654 [facility] Service: Claims Adjuster Crop Progress Note Alondra Caballero 49 y.o. Hospital Day: LOS: 1 day Post-Op Day: * No surgery found * Consulting Physicians Treatment Team: Consulting Physician: Mari Mcdaniel MD Admitting Provider: Altaf Ramires MD SUBJECTIVE Patient Summary: From Bryant Neely H&P (04/13): "The patient is a 49 y.o. female with si gnificant past medical history of Methamphetamine use stopped 8 years ago, Diabetes type 2 on insulin, CKD stage IV, CAD, cardiac stent, CHF, left BKA who presented to [facility] ER via EMS with leg swelling and pain. About 4 weeks ago the patient noticed her right leg forming some blisters that her caregivers non medical was managing. The pt stated that her caregiver has been out of town for 4 weeks and that her roommate was taking care of her needs and wou nd care during that time. Per patient, when the caregiver returned today to change her wound dressing, the wound had become significantly worse since the last time she was there with p urulent drainage, necrotic tissue, redness extending from right foot to knee and a very foul odor. The caregiver then called EMS to have patient transferred to the ER for further kahlil p. Upon arrival to ER pt was not in shock initially, pertinent initial labs: WBC 50.9, lactic Acid 1.9, Creatinine 3.78, BUN 26, Na 122, K+ 6.5. Pt received kayexalate, started on vancom ycin and zosyn. Shortly after arrival pt went into shock, received 3L IV fluids then started on low dose levophed drip. [facility] ICU was consulted and pt was then transferred for higher delia of care." ICU Timeline: 04/13: Admitted ICU. Pt in shock received 5L IVF, on levophed drip. Started on Vanco and Zosyn. Events Overnight: Pt remains in shock, on levophed drip. Received 5th liter IVF. Lact ic Acid 4.2. Na 130, started on D5W drip. Metabolic acidosis, pHCO3 14, received 2 amps bica rb. SCHEDULED MEDICATIONS clindamycin 600 mg Intravenous Q8H docusate sodium 100 mg Oral BID Or docusate 100 mg Per OG Tube BID heparin (porcine) 5000 unit/0.5mL 5,000 Units Subcutaneous 3 times per day nystatin Topical BID vancomycin 1,000 mg Intravenous See Admin Instructions vancomycin 750 mg Intravenous See Admin Instructions CONTINUOUS INFUSIONS dextrose dextrose 200 mL/hr at 04/13/192143 insulin regular 1 unit/mL 12 Units/hr (04/14/19 011) norepinephrine 5 mcg/min (04/13/192226) sodium chloride (IV) 15 mL/hr at 04/13/192146 OBJECTIVE VITAL SIGNS Temp: [99.2 F (37.3 C)-99.8 F (37.7 C)] 99.2 F (37.3 C) Heart Rate: [93-101] 96 Resp: [11-38] 11 BP: (98-109)/(50-57) 98/55 CVP (mean): [1 mmHg-21 mmHg] 1 mmHg (04/13 2200) Intake/Output Summary (Last 24 hours) at 04/14/19 0137 Last data filed at 04/14/19 0000 Gross per 24 hour Intake 0 ml Output 487 ml Net -487 ml EXAM GEN: awake, alert, oriented x3, NAD, Obese, well nourished, toxic appearing NEURO: PERRLA, EOMI, no facial asymmetry, moves all extremities, follows commands. GCS: 15 HEENT: sclerae clear, nonicteric, oral mm dry, pink, no exudates NECK: supple, trachea midline CV: RRR, S1/S2, no murmur, rub or gallop, peripheral pulses palpable, cap refill brisk LUNGS: clear b/l, no wheezing, rales or rhonchi, symmetric chest expansion, even/unlabored respirations ABD: obese, soft, nondistended, nontender to palpation, no masses, redness and skin breakdo wn between skin folds EXTR: edema right LE, no clubbing or cyanosis, Right BKA, Left foot and ankle necrotic/jaycee grenous wound with purulent drainage and redness extending to knee, Necrotic wound over medi al aspect of garcia, right Knee wound, left groin skin tear, right thumb wound with necrotic t issue, see photo documentation SKIN: warm, dry, facial rash; e/o skin breakdown over the occiput, sacrum and heels, skin b reakdown under skin folds, see photo documentation. LINES/TUBES: PIV, Noel (04/13), Left IJ CVC (04/13). DATA Recent Labs Lab 04/13/191921 WBC 45.95* RBC 2.97* HGB 7.8* HCT 25.3* MCV 85.1 MCH 26.1* MCHC 30.7* RDW 48.6 PLT 445* MPV 8.0 BANDSABS 6.43* MORPH 2+ Recent Labs Lab 04/13/199 04/13/191921 NA 130* 127* K 4.8 6.0* CL 99 97* CO2 20* 16* ANIONGAP 16 20 GLUF 266* 410* BUN 85* 86* CREATININE 3.53* 3.68* BCR 24 23 CA 6.5* 6.6* ALB -- 2.6* GLOB -- 3.1 AG -- 0.8* PROT -- 5.7* BILITOT -- 0.9 ALT -- 32 AST -- 50* EGFR 14* 13* PHOS -- 5.6* MG -- 2.2 No results for input(s): INR in the last 168 hours. IMAGING X-ray Chest 1 View Result Date: 04/13/2019 Poorly defined opacity in the left lung base, which may represent atelectasis or consolidat ion. Left IJ central venous catheter terminates in the mid SVC. Signed by: Emy Romero John Sign Date/Time: 04/13/2019 7:44 PM PROBLEM LIST Principal Problem: Septic shock (HCC) Active Problems: Morbid obesity (HCC) Hx of BKA, left (HCC) CHF (congestive heart failure) (HCC) CKD (chronic kidney disease), stage IV Metabolic acidosis ICD (implantable cardioverter-defibrillator), single, 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, with long-term current use of insulin (HCC) Ischemic cardiomyopathy Sepsis (HCC) Gangrene of extremity (HCC) Hyperkalemia Lactic acidosis Hyponatremia Resolved Problems: * No resolved hospital problems. * ASSESSMENT & PLAN NEURO: Non focal neuro exam CAM ICU every shift Hyponatremia. Likely due to hypovolemia, ERICK, medications. Na 122 initially. Target goal of 6-8 mEq increase within 24 hours. Repeat Na 130, pt started on D5W, monitor Na q4 hour CV: Shock. 2/2 Sepsis, dehydration. Pt resuscitated with 4L IV fluids, started on levophed d rip, Abx. Titrate pressors for MAP goal >65. Continue abx, see ID. Bedside ECHO by Dr Mcdaniel, EF remains in 40% range from previous ECHO. Ischemic Cardiomyopathy. ICD in place, lower left abdomen. Hold BB, diuretics for now, r estart when shock has resolved. Cardiology is following. CHF. Hold home meds for now. Monitor PULM: No acute issues GI/NUTRITION: NPO Morbid Obesity. Continue supportive care. Will consult Dietitian for nutritional needs. RENAL/LYTES: ERICK on CKD stage 4. Likely due to shock, sepsis, dehydration. Pt being followed by Dr. Kyle caruso as outpatient, No need for HD at this time. Will consult Nephrology if renal function d oes not return to baseline. Monitor electrolytes Avoid nephrotoxins and renally dose medications Monitor I/Os Hyperkalemia. 2/2 ERICK/CKD, metabolic acidosis, sepsis. Pt received kayexalate at [facility]. No EKG changes, Monitor BMP ordered Metabolic Acidosis. 2/2 shock, sepsis, ERICK, Hyperglycemia. Bicarb 14, will give 2 amps s odium bicarb. Monitor Lactic acidosis. 2/2 sepsis, shock. Pt received 5L IVF, on levophed drip. Trend lactic a cids. ID: Sepsis. Likely due to Right LE wounds. Blood/wound cultures sent. Leukocytosis trending down. Procal pending. Initial Lactic Acid 1.9. Pt started on Vancomycin and zosyn, continue. HEME: Anemia. Chronic Likely due to CKD, mo e/o bleeding. H/H decreased overnight, 2 units PRB C ordered. Monitor ENDO: Hyperglycemia. 2/2 uncontrolled Diabetes type 2, pt on insulin at home. Pt started on en dotool, goal BG 80-180. Type 2 Diabetes, poorly controlled. Pt on insulin at home. Endotool started, continue HgA1c ordered in am. Consult video arcade manager MUSC/SKIN: Left BKA. Uses prosthesis at home to ambulate Gangrenous infection right LE. Likely due to uncontrolled Diabetes. Pt has loss of sensa tion to foot. Multiples areas of necrotic tissue, purulent drainage, wound appears to extend to bone. Will likely need Vascular surgery consult for possible amputation. Abx started. Unable to obtain MRI of LE, Pt has ICD [employer] model 1010 which is not MRI comp atable Wound care consulted Turn q2 hours Skin care reviewed with RN PROPHYLAXIS: Stress ulcer prophylaxis: No indication DVT prophylaxis: Unable to tolerate SCDs, Heparin Disposition: ICU, care as per above. Code Status: Full Code *Please bill 60 minutes of critical care time spent evaluating the patient, reviewing the d srini and formulating a plan exclusive of all other procedures. REBECCA Vega 04/14/2019 documented in this e ncounter Plan of Treatment +--------+ + + + + | Date | Type | Specialty | Care Team | Description | +--------+ + + + + | 10/10/ | Office | Cardiology | Jerry Watts | | | 2019 | Visit | | MD [address] | | | | | | [facility] | | | | | | [place], [place] | | | | | | [address] | | | | | | | | +--------+ + + + + | 10/10/ | Procedure | Cardiology | | | | 2019 | visit | | | | +--------+ + + + + | 10/17/ | Office | Family Medicine | Jerry Yuen, | | | 2019 | Visit | | [address] | | | | | | [address] | | | | | | [facility] [address] | | | | | | [phone] | | | | | | | | +--------+ + + + + | 11/25/ | Office | Nephrology | Kei Arthur MD | | | 2019 | Visit | | [address] [facility] | | | | | | [address] | | | | | | [address] | | | | | | | | +--------+ + + + + documented as of this encounter Procedures + +--------+ + + + | Procedure Name | Priori | Date/Time | Associated Diagnosis | Comments | | | ty | | | | + +--------+ + + + | POC GLUCOSE | Routin | 04/26/2019 | | Results for this | | | e | 11:36 AM | | procedure are in the | | | | PDT | | results section. | + +--------+ + + + | BASIC METABOLIC | Routin | 04/26/2019 | | Results for this | | PANEL | e | 6:30 AM | | procedure are in the | | | | PDT | | results section. | + +--------+ + + + | POC GLUCOSE | Routin | 04/26/2019 | | Results for this | | | e | 5:40 AM | | procedure are in the | | | | PDT | | results section. | + +--------+ + + + | POC GLUCOSE | Routin | 04/25/2019 | | Results for this | | | e | 10:27 PM | | procedure are in the | | | | PDT | | results section. | + +--------+ + + + | POC GLUCOSE | Routin | 04/25/2019 | | Results for this | | | e | 8:55 PM | | procedure are in the | | | | PDT | | results section. | + +--------+ + + + | POC GLUCOSE | Routin | 04/25/2019 | | Results for this | | | e | 4:32 PM | | procedure are in the | | | | PDT | | results section. | + +--------+ + + + | POC GLUCOSE | Routin | 04/25/2019 | | Results for this | | | e | 11:40 AM | | procedure are in the | | | | PDT | | results section. | + +--------+ + + + | POC GLUCOSE | Routin | 04/25/2019 | | Results for this | | | e | 5:19 AM | | procedure are in the | | | | PDT | | results section. | + +--------+ + + + | EXTERNAL LAB: CBC | Routin | 04/25/2019 | | Results for this | | | e | 3:42 AM | | procedure are in the | | | | PDT | | results section. | + +--------+ + + + | BASIC METABOLIC | Routin | 04/25/2019 | | Results for this | | PANEL | e | 3:42 AM | | procedure are in the | | | | PDT | | results section. | + +--------+ + + + | POC GLUCOSE | Routin | 04/24/2019 | | Results for this | | | e | 8:59 PM | | procedure are in the | | | | PDT | | results section. | + +--------+ + + + | POC GLUCOSE | Routin | 04/24/2019 | | Results for this | | | e | 4:13 PM | | procedure are in the | | | | PDT | | results section. | + +--------+ + + + | POC GLUCOSE | Routin | 04/24/2019 | | Results for this | | | e | 3:18 PM | | procedure are in the | | | | PDT | | results section. | + +--------+ + + + | NM MYOCARDIAL | Routin | 04/24/2019 | | Results for this | | PERFUSION MULT SPECT | e | 1:56 PM | | procedure are in the | | | | PDT | | results section. | + +--------+ + + + | POC GLUCOSE | Routin | 04/24/2019 | | Results for this | | | e | 11:28 AM | | procedure are in the | | | | PDT | | results section. | + +--------+ + + + | EXTERNAL LAB: CBC | Routin | 04/24/2019 | | Results for this | | | e | 5:59 AM | | procedure are in the | | | | PDT | | results section. | + +--------+ + + + | CK TOTAL | Routin | 04/24/2019 | | Results for this | | | e | 5:59 AM | | procedure are in the | | | | PDT | | results section. | + +--------+ + + + | BASIC METABOLIC | Routin | 04/24/2019 | | Results for this | | PANEL | e | 5:59 AM | | procedure are in the | | | | PDT | | results section. | + +--------+ + + + | POC GLUCOSE | Routin | 04/24/2019 | | Results for this | | | e | 5:40 AM | | procedure are in the | | | | PDT | | results section. | + +--------+ + + + | POC GLUCOSE | Routin | 04/23/2019 | | Results for this | | | e | 9:10 PM | | procedure are in the | | | | PDT | | results section. | + +--------+ + + + | POC GLUCOSE | Routin | 04/23/2019 | | Results for this | | | e | 7:18 PM | | procedure are in the | | | | PDT | | results section. | + +--------+ + + + | POC GLUCOSE | Routin | 04/23/2019 | | Results for this | | | e | 4:22 PM | | procedure are in the | | | | PDT | | results section. | + +--------+ + + + | POC GLUCOSE | Routin | 04/23/2019 | | Results for this | | | e | 12:48 PM | | procedure are in the | | | | PDT | | results section. | + +--------+ + + + | POC GLUCOSE | Routin | 04/23/2019 | | Results for this | | | e | 12:21 PM | | procedure are in the | | | | PDT | | results section. | + +--------+ + + + | POC GLUCOSE | Routin | 04/23/2019 | | Results for this | | | e | 5:24 AM | | procedure are in the | | | | PDT | | results section. | + +--------+ + + + | EXTERNAL LAB: CBC | Routin | 04/23/2019 | | Results for this | | | e | 5:06 AM | | procedure are in the | | | | PDT | | results section. | + +--------+ + + + | CK TOTAL | Routin | 04/23/2019 | | Results for this | | | e | 5:06 AM | | procedure are in the | | | | PDT | | results section. | + +--------+ + + + | BASIC METABOLIC | Routin | 04/23/2019 | | Results for this | | PANEL | e | 5:06 AM | | procedure are in the | | | | PDT | | results section. | + +--------+ + + + | POC GLUCOSE | Routin | 04/22/2019 | | Results for this | | | e | 9:08 PM | | procedure are in the | | | | PDT | | results section. | + +--------+ + + + | POC GLUCOSE | Routin | 04/22/2019 | | Results for this | | | e | 7:15 PM | | procedure are in the | | | | PDT | | results section. | + +--------+ + + + | POC GLUCOSE | Routin | 04/22/2019 | | Results for this | | | e | 4:38 PM | | procedure are in the | | | | PDT | | results section. | + +--------+ + + + | POC GLUCOSE | Routin | 04/22/2019 | | Results for this | | | e | 1:12 PM | | procedure are in the | | | | PDT | | results section. | + +--------+ + + + | POC GLUCOSE | Routin | 04/22/2019 | | Results for this | | | e | 11:28 AM | | procedure are in the | | | | PDT | | results section. | + +--------+ + + + | POC GLUCOSE | Routin | 04/22/2019 | | Results for this | | | e | 8:27 AM | | procedure are in the | | | | PDT | | results section. | + +--------+ + + + | EXTERNAL LAB: CBC | Routin | 04/22/2019 | | Results for this | | | e | 5:54 AM | | procedure are in the | | | | PDT | | results section. | + +--------+ + + + | CK TOTAL | Routin | 04/22/2019 | | Results for this | | | e | 5:54 AM | | procedure are in the | | | | PDT | | results section. | + +--------+ + + + | BASIC METABOLIC | Routin | 04/22/2019 | | Results for this | | PANEL | e | 5:54 AM | | procedure are in the | | | | PDT | | results section. | + +--------+ + + + | POC GLUCOSE | Routin | 04/22/2019 | | Results for this | | | e | 5:40 AM | | procedure are in the | | | | PDT | | results section. | + +--------+ + + + | TROPONIN I | Routin | 04/22/2019 | | Results for this | | | e | 12:30 AM | | procedure are in the | | | | PDT | | results section. | + +--------+ + + + | POC GLUCOSE | Routin | 04/21/2019 | | Results for this | | | e | 8:56 PM | | procedure are in the | | | | PDT | | results section. | + +--------+ + + + | TROPONIN I | Routin | 04/21/2019 | | Results for this | | | e | 6:30 PM | | procedure are in the | | | | PDT | | results section. | + +--------+ + + + | POC GLUCOSE | Routin | 04/21/2019 | | Results for this | | | e | 4:18 PM | | procedure are in the | | | | PDT | | results section. | + +--------+ + + + | TROPONIN I | Routin | 04/21/2019 | | Results for this | | | e | 12:42 PM | | procedure are in the | | | | PDT | | results section. | + +--------+ + + + | POC GLUCOSE | Routin | 04/21/2019 | | Results for this | | | e | 11:19 AM | | procedure are in the | | | | PDT | | results section. | + +--------+ + + + | POC GLUCOSE | Routin | 04/21/2019 | | Results for this | | | e | 8:22 AM | | procedure are in the | | | | PDT | | results section. | + +--------+ + + + | EXTERNAL LAB: CBC | Routin | 04/21/2019 | | Results for this | | | e | 5:40 AM | | procedure are in the | | | | PDT | | results section. | + +--------+ + + + | TROPONIN I | Routin | 04/21/2019 | | Results for this | | | e | 5:40 AM | | procedure are in the | | | | PDT | | results section. | + +--------+ + + + | CK-MB | Routin | 04/21/2019 | | Results for this | | | e | 5:40 AM | | procedure are in the | | | | PDT | | results section. | + +--------+ + + + | PHOSPHORUS | Routin | 04/21/2019 | | Results for this | | | e | 5:40 AM | | procedure are in the | | | | PDT | | results section. | + +--------+ + + + | MAGNESIUM | Routin | 04/21/2019 | | Results for this | | | e | 5:40 AM | | procedure are in the | | | | PDT | | results section. | + +--------+ + + + | CK TOTAL | Routin | 04/21/2019 | | Results for this | | | e | 5:40 AM | | procedure are in the | | | | PDT | | results section. | + +--------+ + + + | BASIC METABOLIC | Routin | 04/21/2019 | | Results for this | | PANEL | e | 5:40 AM | | procedure are in the | | | | PDT | | results section. | + +--------+ + + + | XR CHEST 1 VIEW | Routin | 04/21/2019 | | Results for this | | | e | 12:58 AM | | procedure are in the | | | | PDT | | results section. | + +--------+ + + + | TROPONIN I | Routin | 04/21/2019 | | Results for this | | | e | 12:15 AM | | procedure are in the | | | | PDT | | results section. | + +--------+ + + + | ECG 12 LEAD | Routin | 04/21/2019 | | Results for this | | | e | 12:06 AM | | procedure are in the | | | | PDT | | results section. | + +--------+ + + + | POC GLUCOSE | Routin | 04/20/2019 | | Results for this | | | e | 9:53 PM | | procedure are in the | | | | PDT | | results section. | + +--------+ + + + | POC GLUCOSE | Routin | 04/20/2019 | | Results for this | | | e | 4:15 PM | | procedure are in the | | | | PDT | | results section. | + +--------+ + + + | SODIUM | Routin | 04/20/2019 | | Results for this | | | e | 2:51 PM | | procedure are in the | | | | PDT | | results section. | + +--------+ + + + | POC GLUCOSE | Routin | 04/20/2019 | | Results for this | | | e | 12:10 PM | | procedure are in the | | | | PDT | | results section. | + +--------+ + + + | SODIUM | Routin | 04/20/2019 | | Results for this | | | e | 11:01 AM | | procedure are in the | | | | PDT | | results section. | + +--------+ + + + | POC GLUCOSE | Routin | 04/20/2019 | | Results for this | | | e | 5:59 AM | | procedure are in the | | | | PDT | | results section. | + +--------+ + + + | EXTERNAL LAB: CBC | Routin | 04/20/2019 | | Results for this | | | e | 3:55 AM | | procedure are in the | | | | PDT | | results section. | + +--------+ + + + | BASIC METABOLIC | Routin | 04/20/2019 | | Results for this | | PANEL | e | 3:55 AM | | procedure are in the | | | | PDT | | results section. | + +--------+ + + + | POC GLUCOSE | Routin | 04/19/2019 | | Results for this | | | e | 9:10 PM | | procedure are in the | | | | PDT | | results section. | + +--------+ + + + | POC GLUCOSE | Routin | 04/19/2019 | | Results for this | | | e | 4:30 PM | | procedure are in the | | | | PDT | | results section. | + +--------+ + + + | EXTERNAL LAB: | Routin | 04/19/2019 | | Results for this | | VITAMIN D, | e | 4:26 PM | | procedure are in the | | 1,25-DIHYDROXY | | PDT | | results section. | + +--------+ + + + | SODIUM | Routin | 04/19/2019 | | Results for this | | | e | 1:49 PM | | procedure are in the | | | | PDT | | results section. | + +--------+ + + + | POC GLUCOSE | Routin | 04/19/2019 | | Results for this | | | e | 11:54 AM | | procedure are in the | | | | PDT | | results section. | + +--------+ + + + | CULTURE, URINE | Timed | 04/19/2019 | | Results for this | | | | 10:51 AM | | procedure are in the | | | | PDT | | results section. | + +--------+ + + + | URINALYSIS, | Routin | 04/19/2019 | | Results for this | | MICROSCOPIC ONLY | e | 10:42 AM | | procedure are in the | | | | PDT | | results section. | + +--------+ + + + | SODIUM | Routin | 04/19/2019 | | Results for this | | | e | 9:32 AM | | procedure are in the | | | | PDT | | results section. | + +--------+ + + + | POC GLUCOSE | Routin | 04/19/2019 | | Results for this | | | e | 8:17 AM | | procedure are in the | | | | PDT | | results section. | + +--------+ + + + | POC GLUCOSE | Routin | 04/19/2019 | | Results for this | | | e | 5:25 AM | | procedure are in the | | | | PDT | | results section. | + +--------+ + + + | EXTERNAL LAB: CBC | Routin | 04/19/2019 | | Results for this | | | e | 1:45 AM | | procedure are in the | | | | PDT | | results section. | + +--------+ + + + | BASIC METABOLIC | Routin | 04/19/2019 | | Results for this | | PANEL | e | 1:45 AM | | procedure are in the | | | | PDT | | results section. | + +--------+ + + + | POC GLUCOSE | Routin | 04/18/2019 | | Results for this | | | e | 8:58 PM | | procedure are in the | | | | PDT | | results section. | + +--------+ + + + | SODIUM | Routin | 04/18/2019 | | Results for this | | | e | 7:56 PM | | procedure are in the | | | | PDT | | results section. | + +--------+ + + + | BASIC METABOLIC | Routin | 04/18/2019 | | Results for this | | PANEL | e | 5:18 PM | | procedure are in the | | | | PDT | | results section. | + +--------+ + + + | POC GLUCOSE | Routin | 04/18/2019 | | Results for this | | | e | 4:10 PM | | procedure are in the | | | | PDT | | results section. | + +--------+ + + + | GRAM STAIN, REFLEX | Timed | 04/18/2019 | | Results for this | | SPUTUM CULTURE | | 2:48 PM | | procedure are in the | | | | PDT | | results section. | + +--------+ + + + | SODIUM | Routin | 04/18/2019 | | Results for this | | | e | 2:09 PM | | procedure are in the | | | | PDT | | results section. | + +--------+ + + + | XR CHEST 1 VIEW | Routin | 04/18/2019 | | Results for this | | | e | 12:36 PM | | procedure are in the | | | | PDT | | results section. | + +--------+ + + + | POC GLUCOSE | Routin | 04/18/2019 | | Results for this | | | e | 12:00 PM | | procedure are in the | | | | PDT | | results section. | + +--------+ + + + | SODIUM | Routin | 04/18/2019 | | Results for this | | | e | 8:15 AM | | procedure are in the | | | | PDT | | results section. | + +--------+ + + + | POC GLUCOSE | Routin | 04/18/2019 | | Results for this | | | e | 5:43 AM | | procedure are in the | | | | PDT | | results section. | + +--------+ + + + | EXTERNAL LAB: CBC | Routin | 04/18/2019 | | Results for this | | | e | 2:00 AM | | procedure are in the | | | | PDT | | results section. | + +--------+ + + + | BASIC METABOLIC | Routin | 04/18/2019 | | Results for this | | PANEL | e | 2:00 AM | | procedure are in the | | | | PDT | | results section. | + +--------+ + + + | POC GLUCOSE | Routin | 04/17/2019 | | Results for this | | | e | 8:07 PM | | procedure are in the | | | | PDT | | results section. | + +--------+ + + + | IRON AND IRON | Routin | 04/17/2019 | | Results for this | | BINDING CAPACITY | e | 7:52 PM | | procedure are in the | | | | PDT | | results section. | + +--------+ + + + | RAPID PLASMA REAGIN, | Routin | 04/17/2019 | | Results for this | | QUANT | e | 7:52 PM | | procedure are in the | | | | PDT | | results section. | + +--------+ + + + | VITAMIN B-12 | Routin | 04/17/2019 | | Results for this | | | e | 7:52 PM | | procedure are in the | | | | PDT | | results section. | + +--------+ + + + | VITAMIN D, | Routin | 04/17/2019 | | Results for this | | DEFICIENCY SCREEN | e | 7:52 PM | | procedure are in the | | (25-HYDROXY) | | PDT | | results section. | + +--------+ + + + | TSH | Routin | 04/17/2019 | | Results for this | | | e | 7:52 PM | | procedure are in the | | | | PDT | | results section. | + +--------+ + + + | FOLATE | Routin | 04/17/2019 | | Results for this | | | e | 7:52 PM | | procedure are in the | | | | PDT | | results section. | + +--------+ + + + | FERRITIN | Routin | 04/17/2019 | | Results for this | | | e | 7:52 PM | | procedure are in the | | | | PDT | | results section. | + +--------+ + + + | POC GLUCOSE | Routin | 04/17/2019 | | Results for this | | | e | 3:57 PM | | procedure are in the | | | | PDT | | results section. | + +--------+ + + + | SODIUM | Routin | 04/17/2019 | | Results for this | | | e | 2:47 PM | | procedure are in the | | | | PDT | | results section. | + +--------+ + + + | POC GLUCOSE | Routin | 04/17/2019 | | Results for this | | | e | 12:01 PM | | procedure are in the | | | | PDT | | results section. | + +--------+ + + + | SODIUM | Routin | 04/17/2019 | | Results for this | | | e | 11:30 AM | | procedure are in the | | | | PDT | | results section. | + +--------+ + + + | POC GLUCOSE | Routin | 04/17/2019 | | Results for this | | | e | 9:15 AM | | procedure are in the | | | | PDT | | results section. | + +--------+ + + + | EXTERNAL LAB: CBC | Routin | 04/17/2019 | | Results for this | | | e | 6:27 AM | | procedure are in the | | | | PDT | | results section. | + +--------+ + + + | BASIC METABOLIC | Routin | 04/17/2019 | | Results for this | | PANEL | e | 6:27 AM | | procedure are in the | | | | PDT | | results section. | + +--------+ + + + | POC GLUCOSE | Routin | 04/17/2019 | | Results for this | | | e | 5:23 AM | | procedure are in the | | | | PDT | | results section. | + +--------+ + + + | SODIUM | Routin | 04/17/2019 | | Results for this | | | e | 2:35 AM | | procedure are in the | | | | PDT | | results section. | + +--------+ + + + | POC GLUCOSE | Routin | 04/16/2019 | | Results for this | | | e | 9:09 PM | | procedure are in the | | | | PDT | | results section. | + +--------+ + + + | SODIUM | Routin | 04/16/2019 | | Results for this | | | e | 8:27 PM | | procedure are in the | | | | PDT | | results section. | + +--------+ + + + | POC GLUCOSE | Routin | 04/16/2019 | | Results for this | | | e | 3:18 PM | | procedure are in the | | | | PDT | | results section. | + +--------+ + + + | HEPATITIS PANEL, | Routin | 04/16/2019 | | Results for this | | CHRONIC | e | 2:58 PM | | procedure are in the | | | | PDT | | results section. | + +--------+ + + + | HEPATITIS B DNA, | Routin | 04/16/2019 | | Results for this | | NAAT, QUANT | e | 2:58 PM | | procedure are in the | | | | PDT | | results section. | + +--------+ + + + | HEPATITIS C | Routin | 04/16/2019 | | Results for this | | RNA,QUANTITATIVE,PCR | e | 2:58 PM | | procedure are in the | | | | PDT | | results section. | + +--------+ + + + | SODIUM | Routin | 04/16/2019 | | Results for this | | | e | 2:34 PM | | procedure are in the | | | | PDT | | results section. | + +--------+ + + + | POC GLUCOSE | Routin | 04/16/2019 | | Results for this | | | e | 12:02 PM | | procedure are in the | | | | PDT | | results section. | + +--------+ + + + | EXTERNAL LAB: CBC | Routin | 04/16/2019 | | Results for this | | | e | 7:45 AM | | procedure are in the | | | | PDT | | results section. | + +--------+ + + + | VANCOMYCIN LEVEL | Routin | 04/16/2019 | | Results for this | | | e | 7:45 AM | | procedure are in the | | | | PDT | | results section. | + +--------+ + + + | BASIC METABOLIC | Routin | 04/16/2019 | | Results for this | | PANEL | e | 7:45 AM | | procedure are in the | | | | PDT | | results section. | + +--------+ + + + | POC GLUCOSE | Routin | 04/16/2019 | | Results for this | | | e | 5:42 AM | | procedure are in the | | | | PDT | | results section. | + +--------+ + + + | SODIUM | Routin | 04/16/2019 | | Results for this | | | e | 2:49 AM | | procedure are in the | | | | PDT | | results section. | + +--------+ + + + | POC GLUCOSE | Routin | 04/15/2019 | | Results for this | | | e | 9:07 PM | | procedure are in the | | | | PDT | | results section. | + +--------+ + + + | SODIUM | Routin | 04/15/2019 | | Results for this | | | e | 8:25 PM | | procedure are in the | | | | PDT | | results section. | + +--------+ + + + | POC GLUCOSE | Routin | 04/15/2019 | | Results for this | | | e | 1:03 PM | | procedure are in the | | | | PDT | | results section. | + +--------+ + + + | CULTURE, BLOOD | Timed | 04/15/2019 | | Results for this | | | | 12:58 PM | | procedure are in the | | | | PDT | | results section. | + +--------+ + + + | CULTURE, BLOOD, 2ND | Timed | 04/15/2019 | | Results for this | | SPECIMEN (NON-ORD) | | 12:55 PM | | procedure are in the | | | | PDT | | results section. | + +--------+ + + + | POC GLUCOSE | Routin | 04/15/2019 | | Results for this | | | e | 11:30 AM | | procedure are in the | | | | PDT | | results section. | + +--------+ + + + | SODIUM | Routin | 04/15/2019 | | Results for this | | | e | 11:30 AM | | procedure are in the | | | | PDT | | results section. | + +--------+ + + + | POC GLUCOSE | Routin | 04/15/2019 | | Results for this | | | e | 8:56 AM | | procedure are in the | | | | PDT | | results section. | + +--------+ + + + | POC GLUCOSE | Routin | 04/15/2019 | | Results for this | | | e | 6:24 AM | | procedure are in the | | | | PDT | | results section. | + +--------+ + + + | POC GLUCOSE | Routin | 04/15/2019 | | Results for this | | | e | 4:19 AM | | procedure are in the | | | | PDT | | results section. | + +--------+ + + + | POC GLUCOSE | Routin | 04/15/2019 | | Results for this | | | e | 4:17 AM | | procedure are in the | | | | PDT | | results section. | + +--------+ + + + | POC GLUCOSE | Routin | 04/15/2019 | | Results for this | | | e | 2:13 AM | | procedure are in the | | | | PDT | | results section. | + +--------+ + + + | EXTERNAL LAB: CBC | Routin | 04/15/2019 | | Results for this | | | e | 2:08 AM | | procedure are in the | | | | PDT | | results section. | + +--------+ + + + | PHOSPHORUS | Routin | 04/15/2019 | | Results for this | | | e | 2:08 AM | | procedure are in the | | | | PDT | | results section. | + +--------+ + + + | MAGNESIUM | Routin | 04/15/2019 | | Results for this | | | e | 2:08 AM | | procedure are in the | | | | PDT | | results section. | + +--------+ + + + | VANCOMYCIN LEVEL | Routin | 04/15/2019 | | Results for this | | | e | 2:08 AM | | procedure are in the | | | | PDT | | results section. | + +--------+ + + + | BASIC METABOLIC | Routin | 04/15/2019 | | Results for this | | PANEL | e | 2:08 AM | | procedure are in the | | | | PDT | | results section. | + +--------+ + + + | POC GLUCOSE | Routin | 04/15/2019 | | Results for this | | | e | 12:09 AM | | procedure are in the | | | | PDT | | results section. | + +--------+ + + + | POC GLUCOSE | Routin | 04/14/2019 | | Results for this | | | e | 10:06 PM | | procedure are in the | | | | PDT | | results section. | + +--------+ + + + | POC GLUCOSE | Routin | 04/14/2019 | | Results for this | | | e | 8:11 PM | | procedure are in the | | | | PDT | | results section. | + +--------+ + + + | SODIUM | Routin | 04/14/2019 | | Results for this | | | e | 7:44 PM | | procedure are in the | | | | PDT | | results section. | + +--------+ + + + | POC GLUCOSE | Routin | 04/14/2019 | | Results for this | | | e | 6:03 PM | | procedure are in the | | | | PDT | | results section. | + +--------+ + + + | POC GLUCOSE | Routin | 04/14/2019 | | Results for this | | | e | 3:37 PM | | procedure are in the | | | | PDT | | results section. | + +--------+ + + + | HEMOGLOBIN AND | Routin | 04/14/2019 | | Results for this | | HEMATOCRIT | e | 3:25 PM | | procedure are in the | | | | PDT | | results section. | + +--------+ + + + | SODIUM | Routin | 04/14/2019 | | Results for this | | | e | 3:25 PM | | procedure are in the | | | | PDT | | results section. | + +--------+ + + + | POTASSIUM | Routin | 04/14/2019 | | Results for this | | | e | 3:25 PM | | procedure are in the | | | | PDT | | results section. | + +--------+ + + + | PHOSPHORUS | Routin | 04/14/2019 | | Results for this | | | e | 3:25 PM | | procedure are in the | | | | PDT | | results section. | + +--------+ + + + | MAGNESIUM | Routin | 04/14/2019 | | Results for this | | | e | 3:25 PM | | procedure are in the | | | | PDT | | results section. | + +--------+ + + + | CALCIUM, IONIZED | Routin | 04/14/2019 | | Results for this | | | e | 3:25 PM | | procedure are in the | | | | PDT | | results section. | + +--------+ + + + | TISSUE REQUEST FOR | Routin | 04/14/2019 | | Results for this | | PATHOLOGY (NON-ORD) | e | 1:49 PM | | procedure are in the | | | | PDT | | results section. | + +--------+ + + + | POC GLUCOSE | Routin | 04/14/2019 | | Results for this | | | e | 12:58 PM | | procedure are in the | | | | PDT | | results section. | + +--------+ + + + | CBC NO DIFFERENTIAL | Routin | 04/14/2019 | | Results for this | | | e | 12:52 PM | | procedure are in the | | | | PDT | | results section. | + +--------+ + + + | POC GLUCOSE | Routin | 04/14/2019 | | Results for this | | | e | 10:55 AM | | procedure are in the | | | | PDT | | results section. | + +--------+ + + + | SODIUM | Routin | 04/14/2019 | | Results for this | | | e | 9:44 AM | | procedure are in the | | | | PDT | | results section. | + +--------+ + + + | POC GLUCOSE | Routin | 04/14/2019 | | Results for this | | | e | 9:42 AM | | procedure are in the | | | | PDT | | results section. | + +--------+ + + + | POC GLUCOSE | Routin | 04/14/2019 | | Results for this | | | e | 8:01 AM | | procedure are in the | | | | PDT | | results section. | + +--------+ + + + | ECHO COMPLETE W | Routin | 04/14/2019 | | Results for this | | CONTRAST | e | 7:51 AM | | procedure are in the | | | | PDT | | results section. | + +--------+ + + + | LACTIC ACID | Routin | 04/14/2019 | | Results for this | | | e | 7:21 AM | | procedure are in the | | | | PDT | | results section. | + +--------+ + + + | SODIUM | Routin | 04/14/2019 | | Results for this | | | e | 7:09 AM | | procedure are in the | | | | PDT | | results section. | + +--------+ + + + | POC GLUCOSE | Routin | 04/14/2019 | | Results for this | | | e | 6:46 AM | | procedure are in the | | | | PDT | | results section. | + +--------+ + + + | POC GLUCOSE | Routin | 04/14/2019 | | Results for this | | | e | 5:31 AM | | procedure are in the | | | | PDT | | results section. | + +--------+ + + + | POC GLUCOSE | Routin | 04/14/2019 | | Results for this | | | e | 4:27 AM | | procedure are in the | | | | PDT | | results section. | + +--------+ + + + | EXTERNAL LAB: CBC | Routin | 04/14/2019 | | Results for this | | | e | 4:09 AM | | procedure are in the | | | | PDT | | results section. | + +--------+ + + + | PTT | Routin | 04/14/2019 | | Results for this | | | e | 4:09 AM | | procedure are in the | | | | PDT | | results section. | + +--------+ + + + | PROTIME INR | Routin | 04/14/2019 | | Results for this | | | e | 4:09 AM | | procedure are in the | | | | PDT | | results section. | + +--------+ + + + | PHOSPHORUS | Routin | 04/14/2019 | | Results for this | | | e | 4:09 AM | | procedure are in the | | | | PDT | | results section. | + +--------+ + + + | MAGNESIUM | Routin | 04/14/2019 | | Results for this | | | e | 4:09 AM | | procedure are in the | | | | PDT | | results section. | + +--------+ + + + | HEMOGLOBIN A1C | Routin | 04/14/2019 | | Results for this | | | e | 4:09 AM | | procedure are in the | | | | PDT | | results section. | + +--------+ + + + | BASIC METABOLIC | Routin | 04/14/2019 | | Results for this | | PANEL | e | 4:09 AM | | procedure are in the | | | | PDT | | results section. | + +--------+ + + + | POC GLUCOSE | Routin | 04/14/2019 | | Results for this | | | e | 3:27 AM | | procedure are in the | | | | PDT | | results section. | + +--------+ + + + | POC GLUCOSE | Routin | 04/14/2019 | | Results for this | | | e | 2:17 AM | | procedure are in the | | | | PDT | | results section. | + +--------+ + + + | SODIUM | Routin | 04/14/2019 | | Results for this | | | e | 1:45 AM | | procedure are in the | | | | PDT | | results section. | + +--------+ + + + | POC GLUCOSE | Routin | 04/14/2019 | | Results for this | | | e | 1:11 AM | | procedure are in the | | | | PDT | | results section. | + +--------+ + + + | POC GLUCOSE | Routin | 04/14/2019 | | Results for this | | | e | 12:12 AM | | procedure are in the | | | | PDT | | results section. | + +--------+ + + + | BASIC METABOLIC | Routin | 04/13/2019 | | Results for this | | PANEL | e | 11:29 PM | | procedure are in the | | | | PDT | | results section. | + +--------+ + + + | POC GLUCOSE | Routin | 04/13/2019 | | Results for this | | | e | 11:08 PM | | procedure are in the | | | | PDT | | results section. | + +--------+ + + + | POC GLUCOSE | Routin | 04/13/2019 | | Results for this | | | e | 10:02 PM | | procedure are in the | | | | PDT | | results section. | + +--------+ + + + | LACTIC ACID | Routin | 04/13/2019 | | Results for this | | | e | 9:39 PM | | procedure are in the | | | | PDT | | results section. | + +--------+ + + + | CALCIUM, IONIZED | Routin | 04/13/2019 | | Results for this | | | e | 9:39 PM | | procedure are in the | | | | PDT | | results section. | + +--------+ + + + | KETONES, BLOOD | Routin | 04/13/2019 | | Results for this | | | e | 9:39 PM | | procedure are in the | | | | PDT | | results section. | + +--------+ + + + | POC GLUCOSE | Routin | 04/13/2019 | | Results for this | | | e | 9:01 PM | | procedure are in the | | | | PDT | | results section. | + +--------+ + + + | CULTURE, BLOOD, 2ND | Timed | 04/13/2019 | | Results for this | | SPECIMEN (NON-ORD) | | 8:24 PM | | procedure are in the | | | | PDT | | results section. | + +--------+ + + + | XR CHEST 1 VIEW | Routin | 04/13/2019 | | Results for this | | | e | 7:27 PM | | procedure are in the | | | | PDT | | results section. | + +--------+ + + + | CULTURE, WOUND, | Timed | 04/13/2019 | | Results for this | | SMEAR, W/ANAEROBE | | 7:24 PM | | procedure are in the | | | | PDT | | results section. | + +--------+ + + + | B TYPE NATRIURETIC | Routin | 04/13/2019 | | Results for this | | PEPTIDE | e | 7:24 PM | | procedure are in the | | | | PDT | | results section. | + +--------+ + + + | EXTERNAL LAB: CBC | Routin | 04/13/2019 | | Results for this | | | e | 7:22 PM | | procedure are in the | | | | PDT | | results section. | + +--------+ + + + | URINALYSIS WITH | Routin | 04/13/2019 | | Results for this | | MICROSCOPIC IF | e | 7:22 PM | | procedure are in the | | INDICATED | | PDT | | results section. | + +--------+ + + + | PATHOLOGY CONSULT | Routin | 04/13/2019 | | Results for this | | REQUEST | e | 7:22 PM | | procedure are in the | | | | PDT | | results section. | + +--------+ + + + | PROCALCITONIN, SERUM | Routin | 04/13/2019 | | Results for this | | | e | 7:22 PM | | procedure are in the | | | | PDT | | results section. | + +--------+ + + + | URINALYSIS, | Routin | 04/13/2019 | | Results for this | | MICROSCOPIC ONLY | e | 7:22 PM | | procedure are in the | | | | PDT | | results section. | + +--------+ + + + | CULTURE, BLOOD | Timed | 04/13/2019 | | Results for this | | | | 7:22 PM | | procedure are in the | | | | PDT | | results section. | + +--------+ + + + | PHOSPHORUS | Routin | 04/13/2019 | | Results for this | | | e | 7:22 PM | | procedure are in the | | | | PDT | | results section. | + +--------+ + + + | MAGNESIUM | Routin | 04/13/2019 | | Results for this | | | e | 7:22 PM | | procedure are in the | | | | PDT | | results section. | + +--------+ + + + | LACTIC ACID | Routin | 04/13/2019 | | Results for this | | | e | 7:22 PM | | procedure are in the | | | | PDT | | results section. | + +--------+ + + + | COMPREHENSIVE | Routin | 04/13/2019 | | Results for this | | METABOLIC PANEL | e | 7:22 PM | | procedure are in the | | | | PDT | | results section. | + +--------+ + + + | POC GLUCOSE | Routin | 04/13/2019 | | Results for this | | | e | 7:08 PM | | procedure are in the | | | | PDT | | results section. | + +--------+ + + + | MRSA NAAT | Routin | 04/13/2019 | | Results for this | | | e | 6:22 PM | | procedure are in the | | | | PDT | | results section. | + +--------+ + + + documented in this encounter Results POC Glucose (04/26/2019 11:36 AM PDT) + + + + + + | Component | Value | Ref Range | Performed | Pathologist | | | | | At | Signature | + + + + + + | Glucose, | 117 (H)Comment: Testing | 65 - 99 mg/dL | EXTERNAL | | | Fingerstick | performed at [facility];[address] | | LAB | | | | [address];[place] | | | | | | [address] | | | | + + + + + + + + | Specimen | + + | | + + + +---------+ + + | Performing | Address | City/State/Zipcode | Phone Number | | Organization | | | | + +---------+ + + | EXTERNAL LAB | | | | + +---------+ + + Basic Metabolic Panel (04/26/2019 6:30 AM PDT) + + + + + + | Component | Value | Ref Range | Performed | Pathologist | | | | | At | Signature | + + + + + + | Na | 137 | 135 - 145 | EXTERNAL | | | | | mmol/L | LAB | | + + + + + + | K | 4.3 | 3.5 - 4.9 | EXTERNAL | | | | | mmol/L | LAB | | + + + + + + | Cl | 105 | 99 - 109 mmol/L | EXTERNAL | | | | | | LAB | | + + + + + + | CO2 | 25 | 23 - 32 mmol/L | EXTERNAL | | | | | | LAB | | + + + + + + | Anion Gap | 11 | 5 - 20 mmol/L | EXTERNAL | | | | | | LAB | | + + + + + + | Glucose, | 94 | 65 - 99 mg/dL | EXTERNAL | | | Fasting | | | LAB | | + + + + + + | BUN | 35 (H) | 8 - 25 mg/dL | EXTERNAL | | | | | | LAB | | + + + + + + | Creatinine | 1.38 (H) | 0.50 - 1.00 | EXTERNAL | | | | | mg/dL | LAB | | + + + + + + | BUN/Creatin | 25 | | EXTERNAL | | | ine Ratio | | | LAB | | + + + + + + | Calcium | 8.3 (L) | 8.5 - 10.5 | EXTERNAL | | | | | mg/dL | LAB | | + + + + + + | Estimated | 41 (L)Comment: GFR <60: | mL/min/1.73m2 | EXTERNAL [...] BY | | | | | | 1.210.This eGFR is | | | | | | calculated using the | | | | | | MDRD IDMS traceable | | | | | | equation.Testing | | | | | | performed at [facility];[address];[place], [place] | | | | | | [address] | | | | + + + + + + + + | Specimen | + + | Blood specimen | | (specimen) | + + + +---------+ + + | Performing | Address | City/State/Zipcode | Phone Number | | Organization | | | | + +---------+ + + | EXTERNAL LAB | | | | + +---------+ + + POC Glucose (04/26/2019 5:40 AM PDT) + + + + + + | Component | Value | Ref Range | Performed | Pathologist | | | | | At | Signature | + + + + + + | Glucose, | 100 (H)Comment: Testing | 65 - 99 mg/dL | EXTERNAL | | | Fingerstick | performed at [facility] | | LAB | | | | [address];[place], [place] | | | | | | [address] | | | | + + + + + + + + | Specimen | + + | | + + + +---------+ + + | Performing | Address | City/State/Zipcode | Phone Number | | Organization | | | | + +---------+ + + | EXTERNAL LAB | | | | + +---------+ + + POC Glucose (04/25/2019 10:27 PM PDT) + + + + + + | Component | Value | Ref Range | Performed | Pathologist | | | | | At | Signature | + + + + + + | Glucose, | 120 (H)Comment: Testing | 65 - 99 mg/dL | EXTERNAL | | | Fingerstick | performed at [facility];[address] | | LAB | | | | [address];[place] | | | | | | [address] | | | | + + + + + + + + | Specimen | + + | | + + + +---------+ + + | Performing | Address | City/State/Zipcode | Phone Number | | Organization | | | | + +---------+ + + | EXTERNAL LAB | | | | + +---------+ + + POC Glucose (04/25/2019 8:55 PM PDT) + + + + + + | Component | Value | Ref Range | Performed | Pathologist | | | | | At | Signature | + + + + + + | Glucose, | 63 (L)Comment: Testing | 65 - 99 mg/dL | EXTERNAL | | | Fingerstick | performed at [facility];[address] | | LAB | | | | [address];[place] | | | | | | [address] | | | | + + + + + + + + | Specimen | + + | | + + + +---------+ + + | Performing | Address | City/State/Zipcode | Phone Number | | Organization | | | | + +---------+ + + | EXTERNAL LAB | | | | + +---------+ + + POC Glucose (04/25/2019 4:32 PM PDT) + + + + + + | Component | Value | Ref Range | Performed | Pathologist | | | | | At | Signature | + + + + + + | Glucose, | 117 (H)Comment: Testing | 65 - 99 mg/dL | EXTERNAL | | | Fingerstick | performed at [facility];[address] | | LAB | | | [address];[place], [place] | | | | | | [address] | | | | + + + + + + + + | Specimen | + + | | + + + +---------+ + + | Performing | Address | City/State/Zipcode | Phone Number | | Organization | | | | + +---------+ + + | EXTERNAL LAB | | | | + +---------+ + + POC Glucose (04/25/2019 11:40 AM PDT) + + + + + + | Component | Value | Ref Range | Performed | Pathologist | | | | | At | Signature | + + + + + + | Glucose, | 201 (H)Comment: Testing | 65 - 99 mg/dL | EXTERNAL | | | Fingerstick | performed at [facility];[address] | | LAB | | | | [address];[place], [place] | | | | | | [address] | | | | + + + + + + + + | Specimen | + + | | + + + +---------+ + + | Performing | Address | City/State/Zipcode | Phone Number | | Organization | | | | + +---------+ + + | EXTERNAL LAB | | | | + +---------+ + + POC Glucose (04/25/2019 5:19 AM PDT) + + + + + + | Component | Value | Ref Range | Performed | Pathologist | | | | | At | Signature | + + + + + + | Glucose, | 147 (H)Comment: Testing | 65 - 99 mg/dL | EXTERNAL | | | Fingerstick | performed at [facility];[address] | | LAB | | | | [address];[place], [place] | | | | | | [address] | | | | + + + + + + + + | Specimen | + + | | + + + +---------+ + + | Performing | Address | City/State/Zipcode | Phone Number | | Organization | | | | + +---------+ + + | EXTERNAL LAB | | | | + +---------+ + + External Lab: CBC (04/25/2019 3:42 AM PDT) + + + + + + | Component | Value | Ref Range | Performed | Pathologist | | | | | At | Signature | + + + + + + | WBC | 6.73 | 3.80 - 11.00 | EXTERNAL | | | | | K/uL | LAB | | + + + + + + | RED CELL | 2.50 (L) | 3.70 - 5.10 | EXTERNAL | | | COUNT | | M/uL | LAB | | + + + + + + | Hgb | 7.5 (L) | 11.3 - 15.5 | EXTERNAL | | | | | g/dL | LAB | | + + + + + + | Hematocrit, | 22.7 (L) | 34.0 - 46.0 % | EXTERNAL | | | POC | | | LAB | | + + + + + + | MCV | 90.5 | 80.0 - 100.0 fl | EXTERNAL | | | | | | LAB | | + + + + + + | MCH | 29.8 | 27.0 - 34.0 pg | EXTERNAL | | | | | | LAB | | + + + + + + | MCHC | 33.0 | 32.0 - 35.5 | EXTERNAL | | | | | g/dL | LAB | | + + + + + + | RDW-CV | 63.4 (H) | 37 - 53 fl | EXTERNAL | | | | | | LAB | | + + + + + + | Platelet | 347 | 150 - 400 K/uL | EXTERNAL | | | Count | | | LAB | | | Plasma | | | | | + + + + + + | MPV | 8.0 | fl | EXTERNAL | | | | | | LAB | | + + + + + + | Differentia | MANUAL | | EXTERNAL | | | l Type | | | LAB | | + + + + + + | Segmented | 68 | % | EXTERNAL | | | Neutrophils | | | LAB | | | Manual | | | | | + + + + + + | Lymphocytes | 27 | % | EXTERNAL | | | Manual | | | LAB | | + + + + + + | Monocytes | 5 | % | EXTERNAL | | | Manual | | | LAB | | + + + + + + | Absolute | 4.57 | 1.90 - 7.40 | EXTERNAL | | | Neutrophils | | K/uL | LAB | | + + + + + + | Absolute | 1.82 | 1.00 - 3.90 | EXTERNAL | | | Lymphocytes | | K/uL | LAB | | + + + + + + | Absolute | 0.34 | 0.00 - 0.80 | EXTERNAL | | | Monocytes | | K/uL | LAB | | + + + + + + | RBC | 2+Comment: ANISONORMAL | | EXTERNAL | | | Morphology | PLT MORPHTesting | | LAB | | | | performed at [facility], [address] | | | | | [address], | | | | | | [place] [address] | | | | | | | [...] + +---------+ + + Basic Metabolic Panel (04/25/2019 3:42 AM PDT) + + + + + + | Component | Value | Ref Range | Performed | Pathologist | | | | | At | Signature | + + + + + + | Na | 135 | 135 - 145 | EXTERNAL | | | | | mmol/L | LAB | | + + + + + + | K | 4.6 | 3.5 - 4.9 | EXTERNAL | | | | | mmol/L | LAB | | + + + + + + | Cl | 103 | 99 - 109 mmol/L | EXTERNAL | | | | | | LAB | | + + + + + + | CO2 | 25 | 23 - 32 mmol/L | EXTERNAL | | | | | | LAB | | + + + + + + | Anion Gap | 12 | 5 - 20 mmol/L | EXTERNAL | | | | | | LAB | | + + + + + + | Glucose, | 137 (H) | 65 - 99 mg/dL | EXTERNAL | | | Fasting | | | LAB | | + + + + + + | BUN | 38 (H) | 8 - 25 mg/dL | EXTERNAL | | | | | | LAB | | + + + + + + | Creatinine | 1.3 (H) | 0.50 - 1.00 | EXTERNAL | | | | | mg/dL | LAB | | + + + + + + | BUN/Creatin | 29 | | EXTERNAL | | | ine Ratio | | | LAB | | + + + + + + | Calcium | 8.4 (L) | 8.5 - 10.5 | EXTERNAL | | | | | mg/dL | LAB | | + + + + + + | Estimated | 44 (L)Comment: GFR <60: | mL/min/1.73m2 | EXTERNAL [...] BY | | | | | | 1.210.This eGFR is | | | | | | calculated using the | | | | | | MDRD IDRI traceable | | | | | | equation.Testing | | | | | | performed at [facility], [address] | | | | | [facility], | | | | | | [place] [address] | | | | + + + + + + + + | Specimen | + + | Blood specimen | | (specimen) | + + + +---------+ + + | Performing | Address | City/State/Zipcode | Phone Number | | Organization | | | | + +---------+ + + | EXTERNAL LAB | | | | + +---------+ + + POC Glucose (04/24/2019 8:59 PM PDT) + + + + + + | Component | Value | Ref Range | Performed | Pathologist | | | | | At | Signature | + + + + + + | Glucose, | 104 (H)Comment: Testing | 65 - 99 mg/dL | EXTERNAL | | | Fingerstick | performed at [facility];[address] | | LAB | | | | [address];[place] | | | | | | [address] | | | | + + + + + + + + | Specimen | + + | | + + + +---------+ + + | Performing | Address | City/State/Zipcode | Phone Number | | Organization | | | | + +---------+ + + | EXTERNAL LAB | | | | + +---------+ + + POC Glucose (04/24/2019 4:13 PM PDT) + + + + + + | Component | Value | Ref Range | Performed | Pathologist | | | | | At | Signature | + + + + + + | Glucose, | 157 (H)Comment: Testing | 65 - 99 mg/dL | EXTERNAL | | | Fingerstick | performed at [facility];[address] | | LAB | | | | [address];[place], [place] | | | | | | [address] | | | | + + + + + + + + | Specimen | + + | | + + + +---------+ + + | Performing | Address | City/State/Zipcode | Phone Number | | Organization | | | | + +---------+ + + | EXTERNAL LAB | | | | + +---------+ + + POC Glucose (04/24/2019 3:18 PM PDT) + + + + + + | Component | Value | Ref Range | Performed | Pathologist | | | | | At | Signature | + + + + + + | Glucose, | 133 (H)Comment: Testing | 65 - 99 mg/dL | EXTERNAL | | | Fingerstick | performed at [facility];[address] | | LAB | | | | [address];[place] | | | | | | [address] | | | | + + + + + + + + | Specimen | + + | | + + + +---------+ + + | Performing | Address | City/State/Zipcode | Phone Number | | Organization | | | | + +---------+ + + | EXTERNAL LAB | | | | + +---------+ + + NM Myocardial Perfusion Mult SPECT (04/24/2019 1:56 PM PDT) + + | Specimen | + + | | + + + + + | Impressions | Performed At | + + + | 1. 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 2. I see no | | | evidence of ischemia. 3. Mild to moderate left ventricular | | | enlargement with ballooning of the apex, stable between rest and | | | stress. 4. Akinesis of the apex, with moderate hypokinesis involving | | | the mid to distal anterior, septal, and inferior castellanos. Mild | | | hypokinesis of the balance of the left ventricle. 5. LVEF 25% rest, | | | 31% stress. High risk stratification. Signed by: Emy Rivers Shawn | | | Sign Date/Time: 04/25/2019 11:58 AM | | + + + + + + | Narrative | Performed At | + + + | REST/STRESS MYOCARDIAL PERFUSION STUDY PROTOCOL: STANDARD IAM | | | EXERCISE. CLINICAL INFORMATION: Chest pain, known CAD, cath 2012 w/ | | | complete occlusion of LAD and RCA, CHF EF 35%, HTN, HLD, diabetes, | | | heart burn, bilateral below knee amputee COMPARISON: ECHO CARDIAC | | | ADULT WITH CONTRAST (04/14/2019); PROCEDURE: Treadmill stress testing | | | was performed and reported separately, followed by the standard | | | department protocol for the SPECT myocardial perfusion examination. | | | Patient unable to perform prone stress imaging. Bilateral | | | [id number] amputee. Difficulty moving. RADIOPHARMACEUTICALS: | | | 10.5 millicurie technetium 9 9 M sestamibi for rest dose was | | | inadequate. Additional 10.1 millicurie technetium 9 9 M sestamibi | | | injection for rest imaging. Two day protocol. The following day, | | | the patient was intravenously injected with 30 millicuries technetium | | | 9 9 M sestamibi for stress evaluation. FINDINGS: Projection Images | | | for Artifact Assessment: There is technical limitation due to | | | patient body habitus. Myocardial Perfusion SPECT Images: Large | | | infarct involving the apex, inferior wall, and with extension into | | | the mid anterior wall. Decreased activity in the proximal and | | | distal septum also suggests an element of infarct. There is mild to | | | moderate left ventricular dilatation at rest, with ballooning of the | | | cardiac apex, stable between rest and stress. Stress imaging exactly | | | mirrors the rest images. I see no evidence of ischemia. Gated | | | Study: Rest LVEF 25%. Stress LVEF 31%. Volumes: Rest EDV 197 mL. | | | Rest ESV 147 mL. Stress EDV 205 mL. Stress ESV 141 mL. Wall Motion: | | | There is akinesis of the apex, with moderate hypokinesis involving | | | the mid to distal anterior, septal, and inferior castellanos. Mild | | | hypokinesis of the balance of the left ventricle. | | + + + + + | Procedure Note | + + | Marcelo Matias Conversion - 05/25/2019 8:54 AM PDT REST/STRESS MYOCARDIAL PERFUSION STUDY | | PROTOCOL: | | STANDARD IAM EXERCISE. | | CLINICAL INFORMATION: | | Chest pain, known CAD, cath 2013 w/ complete occlusion of LAD and RCA, | | CHF EF 35%, HTN, HLD, diabetes, heart burn, bilateral below knee amputee | | COMPARISON: | | ECHO CARDIAC ADULT WITH CONTRAST (04/14/2019); | | PROCEDURE: | | Treadmill stress testing was performed and reported separately, | | followed by the standard department protocol for the SPECT myocardial | | perfusion examination. Patient unable to perform prone stress imaging. | | Bilateral [id number] amputee. Difficulty moving. | | RADIOPHARMACEUTICALS: | | 10.5 millicurie technetium 9 9 M sestamibi for rest dose was | | inadequate. Additional 10.1 millicurie technetium 9 9 M sestamibi | | injection for rest imaging. Two day protocol. The following day, the | | patient was intravenously injected with 30 millicuries technetium 9 9 M | | sestamibi for stress evaluation. | | FINDINGS: | | Projection Images for Artifact Assessment: | | There is technical limitation due to patient body habitus. | | Myocardial Perfusion SPECT Images: | | Large infarct involving the apex, inferior wall, and with extension | | into the mid anterior wall. Decreased activity in the proximal and | | distal septum also suggests an element of infarct. There is mild to | | moderate left ventricular dilatation at rest, with ballooning of the | | cardiac apex, stable between rest and stress. | | Stress imaging exactly mirrors the rest images. I see no evidence of | | ischemia. | | Gated Study: | | Rest LVEF 25%. | | Stress LVEF 31%. | | Volumes: | | Rest EDV 197 mL. | | Rest ESV 147 mL. | | Stress EDV 205 mL. | | Stress ESV 141 mL. | | Wall Motion: | | There is akinesis of the apex, with moderate hypokinesis involving the | | mid to distal anterior, septal, and inferior castellanos. Mild hypokinesis | | of the balance of the left ventricle. | | IMPRESSION: | | 1. 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 | | 2. I see no evidence of ischemia. | | 3. Mild to moderate left ventricular enlargement with ballooning of the | | apex, stable between rest and stress. | | 4. Akinesis of the apex, with moderate hypokinesis involving the mid to | | distal anterior, septal, and inferior castellanos. Mild hypokinesis of the | | balance of the left ventricle. | | 5. LVEF 25% rest, 31% stress. | | High risk stratification. | | Signed by: Emy Rivers Shawn | | Sign Date/Time: 04/25/2019 11:58 AM | + + POC Glucose (04/24/2019 11:28 AM PDT) + + + + + + | Component | Value | Ref Range | Performed | Pathologist | | | | | At | [facility] | + + + + + + | Glucose, | 92Comment: Testing | 65 - 99 mg/dL | EXTERNAL | | | Fingerstick | performed at [facility];[address] | | LAB | | | | [address];[place], [place] | | | | | | [address] | | | | + + + + + + + + | Specimen | + + | | + + + +---------+ + + | Performing | Address | City/State/Zipcode | Phone Number | | Organization | | | | + +---------+ + + | EXTERNAL LAB | | | | + +---------+ + + External Lab: CBC (04/24/2019 5:59 AM PDT) + + + + + + | Component | Value | Ref Range | Performed | Pathologist | | | | | At | Signature | + + + + + + | WBC | 7.37 | 3.80 - 11.00 | EXTERNAL | | | | | K/uL | LAB | | + + + + + + | RED CELL | 2.57 (L) | 3.70 - 5.10 | EXTERNAL | | | COUNT | | M/uL | LAB | | + + + + + + | Hgb | 7.6 (L) | 11.3 - 15.5 | EXTERNAL | | | | | g/dL | LAB | | + + + + + + | Hematocrit, | 23.2 (L) | 34.0 - 46.0 % | EXTERNAL | | | POC | | | LAB | | + + + + + + | MCV | 90.0 | 80.0 - 100.0 fl | EXTERNAL | | | | | | LAB | | + + + + + + | MCH | 29.5 | 27.0 - 34.0 pg | EXTERNAL | | | | | | LAB | | + + + + + + | MCHC | 32.8 | 32.0 - 35.5 | EXTERNAL | | | | | g/dL | LAB | | + + + + + + | RDW-CV | 61.7 (H) | 37 - 53 fl | EXTERNAL | | | | | | LAB | | + + + + + + | Platelet | 341 | 150 - 400 K/uL | EXTERNAL | | | Count | | | LAB | | | Plasma | | | | | + + + + + + | MPV | 8.0 | fl | EXTERNAL | | | | | | LAB | | + + + + + + | Differentia | MANUAL | | EXTERNAL | | | l Type | | | LAB | | + + + + + + | Nucleated | 1 (H) | /100WBC | EXTERNAL | | | Red Blood | | | LAB | | | Cells | | | | | + + + + + + | Segmented | 71 | % | EXTERNAL | | | Neutrophils | | | LAB | | | Manual | | | | | + + + + + + | Lymphocytes | 24 | % | EXTERNAL | | | Manual | | | LAB | | + + + + + + | Monocytes | 5 | % | EXTERNAL | | | Manual | | | LAB | | + + + + + + | Absolute | 5.23 | 1.90 - 7.40 | EXTERNAL | | | Neutrophils | | K/uL | LAB | | + + + + + + | Absolute | 1.77 | 1.00 - 3.90 | EXTERNAL | | | Lymphocytes | | K/uL | LAB | | + + + + + + | Absolute | 0.37 | 0.00 - 0.80 | EXTERNAL | | | Monocytes | | K/uL | LAB | | + + + + + + | Platelet | INCREASED | | EXTERNAL | | | Estimate | | | LAB | | + + + + + + | RBC | 2+Comment: ANISONORMAL | | EXTERNAL | | | Morphology | PLT MORPHTesting | | LAB | | | | performed at [facility], [address] | | | | | [address], | | | | | | [place] [address] | | | | | | | [...] | | | + +---------+ + + CK Total (04/24/2019 5:59 AM PDT) + + + + + + | Component | Value | Ref Range | Performed | Pathologist | | | | | At | Signature | + + + + + + | CK, Total | 2135 (H)Comment: Testing | 30 - 240 U/L | EXTERNAL | | | | performed at [facility];[address] | | LAB | | | | [address];[place] | | | | | | [address] | | | | + + + [...] + +---------+ + + Basic Metabolic Panel (04/24/2019 5:59 AM PDT) + + + + + + | Component | Value | Ref Range | Performed | Pathologist | | | | | At | Signature | + + + + + + | Na | 137 | 135 - 145 | EXTERNAL | | | | | mmol/L | LAB | | + + + + + + | K | 4.4 | 3.5 - 4.9 | EXTERNAL | | | | | mmol/L | LAB | | + + + + + + | Cl | 108 | 99 - 109 mmol/L | EXTERNAL | | | | | | LAB | | + + + + + + | CO2 | 25 | 23 - 32 mmol/L | EXTERNAL | | | | | | LAB | | + + + + + + | Anion Gap | 8 | 5 - 20 mmol/L | EXTERNAL | | | | | | LAB | | + + + + + + | Glucose, | 80 | 65 - 99 mg/dL | EXTERNAL | | | Fasting | | | LAB | | + + + + + + | BUN | 38 (H) | 8 - 25 mg/dL | EXTERNAL | | | | | | LAB | | + + + + + + | Creatinine | 1.14 (H) | 0.50 - 1.00 | EXTERNAL | | | | | mg/dL | LAB | | + + + + + + | BUN/Creatin | 33 | | EXTERNAL | | | ine Ratio | | | LAB | | + + + + + + | Calcium | 7.8 (L) | 8.5 - 10.5 | EXTERNAL | | | | | mg/dL | LAB | | + + + + + + | Estimated | 51 (L)Comment: GFR <60: | mL/min/1.73m2 | EXTERNAL [...] BY | | | | | | 1.210.This eGFR is | | | | | | calculated using the | | | | | | MDRD IDRI traceable | | | | | | equation.Testing | | | | | | performed at [facility] | | | | | | [facility];[place], [place] | | | | | | [address] | | | | + + + + + + + + | Specimen | + + | Blood specimen | | (specimen) | + + + +---------+ + + | Performing | Address | City/State/Zipcode | Phone Number | | Organization | | | | + +---------+ + + | EXTERNAL LAB | | | | + +---------+ + + POC Glucose (04/24/2019 5:40 AM PDT) + + + + + + | Component | Value | Ref Range | Performed | Pathologist | | | | | At | Signature | + + + + + + | Glucose, | 85Comment: Testing | 65 - 99 mg/dL | EXTERNAL | | | Fingerstick | performed at [facility];[address] | | LAB | | | | [address];[place] | | | | | | [address] | | | | + + + + + + + + | Specimen | + + | | + + + +---------+ + + | Performing | Address | City/State/Zipcode | Phone Number | | Organization | | | | + +---------+ + + | EXTERNAL LAB | | | | + +---------+ + + POC Glucose (04/23/2019 9:10 PM PDT) + + + + + + | Component | Value | Ref Range | Performed | Pathologist | | | | | At | Signature | + + + + + + | Glucose, | 83Comment: Testing | 65 - 99 mg/dL | EXTERNAL | | | Fingerstick | performed at [facility];[address] | | LAB | | | | [address];[place], [place] | | | | | | [address] | | | | + + + + + + + + | Specimen | + + | | + + + +---------+ + + | Performing | Address | City/State/Zipcode | Phone Number | | Organization | | | | + +---------+ + + | EXTERNAL LAB | | | | + +---------+ + + POC Glucose (04/23/2019 7:18 PM PDT) + + + + + + | Component | Value | Ref Range | Performed | Pathologist | | | | | At | Signature | + + + + + + | Glucose, | 92Comment: Testing | 65 - 99 mg/dL | EXTERNAL | | | Fingerstick | performed at [facility];[address] | | LAB | | | | [address];[place], [place] | | | | | | [address] | | | | + + + + + + + + | Specimen | + + | | + + + +---------+ + + | Performing | Address | City/State/Zipcode | Phone Number | | Organization | | | | + +---------+ + + | EXTERNAL LAB | | | | + +---------+ + + POC Glucose (04/23/2019 4:22 PM PDT) + + + + + + | Component | Value | Ref Range | Performed | Pathologist | | | | | At | Signature | + + + + + + | Glucose, | 129 (H)Comment: Testing | 65 - 99 mg/dL | EXTERNAL | | | Fingerstick | performed at [facility];[address] | | LAB | | | | [address];[place], [place] | | | | | | [address] | | | | + + + + + + + + | Specimen | + + | | + + + +---------+ + + | Performing | Address | City/State/Zipcode | Phone Number | | Organization | | | | + +---------+ + + | EXTERNAL LAB | | | | + +---------+ + + POC Glucose (04/23/2019 12:48 PM PDT) + + + + + + | Component | Value | Ref Range | Performed | Pathologist | | | | | At | Signature | + + + + + + | Glucose, | 66Comment: Testing | 65 - 99 mg/dL | EXTERNAL | | | Fingerstick | performed at [facility];[address] | | LAB | | | | [address];[place] | | | | | | [address] | | | | + + + + + + + + | Specimen | + + | | + + + +---------+ + + | Performing | Address | City/State/Zipcode | Phone Number | | Organization | | | | + +---------+ + + | EXTERNAL LAB | | | | + +---------+ + + POC Glucose (04/23/2019 12:21 PM PDT) + + + + + + | Component | Value | Ref Range | Performed | Pathologist | | | | | At | Signature | + + + + + + | Glucose, | 66Comment: Testing | 65 - 99 mg/dL | EXTERNAL | | | Fingerstick | performed at [facility];[address] | | LAB | | | | [address];[place] | | | | | | [address] | | | | + + + + + + + + | Specimen | + + | | + + + +---------+ + + | Performing | Address | City/State/Zipcode | Phone Number | | Organization | | | | + +---------+ + + | EXTERNAL LAB | | | | + +---------+ + + POC Glucose (04/23/2019 5:24 AM PDT) + + + + + + | Component | Value | Ref Range | Performed | Pathologist | | | | | At | Signature | + + + + + + | Glucose, | 70Comment: Testing | 65 - 99 mg/dL | EXTERNAL | | | Fingerstick | performed at [facility];[address] | | LAB | | | | [address];[place], [place] | | | | | | [address] | | | | + + + + + + + + | Specimen | + + | | + + + +---------+ + + | Performing | Address | City/State/Zipcode | Phone Number | | Organization | | | | + +---------+ + + | EXTERNAL LAB | | | | + +---------+ + + External Lab: ZULEIKA (04/23/2019 5:06 AM PDT) + + + + + + | Component | Value | Ref Range | Performed | Pathologist | | | | | At | Signature | + + + + + + | WBC | 9.60 | 3.80 - 11.00 | EXTERNAL | | | | | K/uL | LAB | | + + + + + + | RED CELL | 2.59 (L) | 3.70 - 5.10 | EXTERNAL | | | COUNT | | M/uL | LAB | | + + + + + + | Hgb | 7.8 (L) | 11.3 - 15.5 | EXTERNAL | | | | | g/dL | LAB | | + + + + + + | Hematocrit, | 23.2 (L) | 34.0 - 46.0 % | EXTERNAL | | | POC | | | LAB | | + + + + + + | MCV | 89.6 | 80.0 - 100.0 fl | EXTERNAL | | | | | | LAB | | + + + + + + | MCH | 30.2 | 27.0 - 34.0 pg | EXTERNAL | | | | | | LAB | | + + + + + + | MCHC | 33.7 | 32.0 - 35.5 | EXTERNAL | | | | | g/dL | LAB | | + + + + + + | RDW-CV | 59.1 (H) | 37 - 53 fl | EXTERNAL | | | | | | LAB | | + + + + + + | Platelet | 345 | 150 - 400 K/uL | EXTERNAL | | | Count | | | LAB | | | Plasma | | | | | + + + + + + | MPV | 8.3 | fl | EXTERNAL | | | | | | LAB | | + + + + + + | Differentia | MANUAL | | EXTERNAL | | | l Type | | | LAB | | + + + + + + | Segmented | 64 | % | EXTERNAL | | | Neutrophils | | | LAB | | | Manual | | | | | + + + + + + | % Bands | 5 | % | EXTERNAL | | | | | | LAB | | + + + + + + | % | 2 | % | EXTERNAL | | | Metamyelocy | | | LAB | | | oliverio | | | | | + + + + + + | % | 1 | % | EXTERNAL | | | Myelocytes | | | LAB | | + + + + + + | Lymphocytes | 19 | % | EXTERNAL | | | Manual | | | LAB | | + + + + + + | Monocytes | 8 | % | EXTERNAL | | | Manual | | | LAB | | + + + + + + | Eosinophils | 1 | % | EXTERNAL | | | Manual | | | LAB | | + + + + + + | Absolute | 6.14 | 1.90 - 7.40 | EXTERNAL | | | Neutrophils | | K/uL | LAB | | + + + + + + | Bands | 0.48 (H) | 0.00 - 0.20 | EXTERNAL | | | Manual | | K/uL | LAB | | + + + + + + | Absolute | 0.19 (H) | K/uL | EXTERNAL | | | Metamyelocy | | | LAB | | | oliverio | | | | | + + + + + + | Absolute | 0.10 (H) | K/uL | EXTERNAL | | | Myelocytes | | | LAB | | + + + + + + | Absolute | 1.82 | 1.00 - 3.90 | EXTERNAL | | | Lymphocytes | | K/uL | LAB | | + + + + + + | Absolute | 0.77 | 0.00 - 0.80 | EXTERNAL | | | Monocytes | | K/uL | LAB | | + + + + + + | Absolute | 0.10 | 0.00 - 0.50 | EXTERNAL | | | Eosinophils | | K/uL | LAB | | + + + + + + | Platelet | INCREASED | | EXTERNAL | | | Estimate | | | LAB | | + + + + + + | RBC | 1+Comment: ANISOPLATELET | | EXTERNAL | | | Morphology | ANISOCYTOSISTesting | | LAB | | | | performed at [facility], [address] | | | | | [address], | | | | | | [place] [address] | | | | | | | [...] | | | + +---------+ + + CK Total (04/23/2019 5:06 AM PDT) + + + + + + | Component | Value | Ref Range | Performed | Pathologist | | | | | At | Signature | + + + + + + | CK, Total | 3534 (H)Comment: Testing | 30 - 240 U/L | EXTERNAL | | | | performed at [facility];[address] | | LAB | | | | [address] [facility];[place] | | | | | | [address] | | | | + + + [...] + +---------+ + + Basic Metabolic Panel (04/23/2019 5:06 AM PDT) + + + + + + | Component | Value | Ref Range | Performed | Pathologist | | | | | At | Signature | + + + + + + | Na | 137 | 135 - 145 | EXTERNAL | | | | | mmol/L | LAB | | + + + + + + | K | 4.2 | 3.5 - 4.9 | EXTERNAL | | | | | mmol/L | LAB | | + + + + + + | Cl | 106 | 99 - 109 mmol/L | EXTERNAL | | | | | | LAB | | + + + + + + | CO2 | 25 | 23 - 32 mmol/L | EXTERNAL | | | | | | LAB | | + + + + + + | Anion Gap | 10 | 5 - 20 mmol/L | EXTERNAL | | | | | | LAB | | + + + + + + | Glucose, | 55 (L) | 65 - 99 mg/dL | EXTERNAL | | | Fasting | | | LAB | | + + + + + + | BUN | 45 (H) | 8 - 25 mg/dL | EXTERNAL | | | | | | LAB | | + + + + + + | Creatinine | 1.24 (H) | 0.50 - 1.00 | EXTERNAL | | | | | mg/dL | LAB | | + + + + + + | BUN/Creatin | 36 | | EXTERNAL | | | ine Ratio | | | LAB | | + + + + + + | Calcium | 7.7 (L) | 8.5 - 10.5 | EXTERNAL | | | | | mg/dL | LAB | | + + + + + + | Estimated | 46 (L)Comment: GFR <60: | mL/min/1.73m2 | EXTERNAL [...] BY | | | | | | 1.210.This eGFR is | | | | | | calculated using the | | | | | | MDRD IDRI traceable | | | | | | equation.Testing | | | | | | performed at [facility] | | | | | | [facility];[place], [place] | | | | | | [address] | | | | + + + + + + + + | Specimen | + + | Blood specimen | | (specimen) | + + + +---------+ + + | Performing | Address | City/State/Zipcode | Phone Number | | Organization | | | | + +---------+ + + | EXTERNAL LAB | | | | + +---------+ + + POC Glucose (04/22/2019 9:08 PM PDT) + + + + + + | Component | Value | Ref Range | Performed | Pathologist | | | | | At | Signature | + + + + + + | Glucose, | 131 (H)Comment: Testing | 65 - 99 mg/dL | EXTERNAL | | | Fingerstick | performed at [facility];[address] | | LAB | | | | [address];[place], [place] | | | | | | [address] | | | | + + + + + + + + | Specimen | + + | | + + + +---------+ + + | Performing | Address | City/State/Zipcode | Phone Number | | Organization | | | | + +---------+ + + | EXTERNAL LAB | | | | + +---------+ + + POC Glucose (04/22/2019 7:15 PM PDT) + + + + + + | Component | Value | Ref Range | Performed | Pathologist | | | | | At | Signature | + + + + + + | Glucose, | 62 (L)Comment: Testing | 65 - 99 mg/dL | EXTERNAL | | | Fingerstick | performed at [facility];[address] | | LAB | | | | [address];[place], [place] | | | | | | [address] | | | | + + + + + + + + | Specimen | + + | | + + + +---------+ + + | Performing | Address | City/State/Zipcode | Phone Number | | Organization | | | | + +---------+ + + | EXTERNAL LAB | | | | + +---------+ + + POC Glucose (04/22/2019 4:38 PM PDT) + + + + + + | Component | Value | Ref Range | Performed | Pathologist | | | | | At | Signature | + + + + + + | Glucose, | 115 (H)Comment: Testing | 65 - 99 mg/dL | EXTERNAL | | | Fingerstick | performed at [facility];[address] | | LAB | | | | [address];[place], [place] | | | | | | [address] | | | | + + + + + + + + | Specimen | + + | | + + + +---------+ + + | Performing | Address | City/State/Zipcode | Phone Number | | Organization | | | | + +---------+ + + | EXTERNAL LAB | | | | + +---------+ + + POC Glucose (04/22/2019 1:12 PM PDT) + + + + + + | Component | Value | Ref Range | Performed | Pathologist | | | | | At | Signature | + + + + + + | Glucose, | 75Comment: Testing | 65 - 99 mg/dL | EXTERNAL | | | Fingerstick | performed at [facility];[address] | | LAB | | | | [address];[place] | | | | | | [address] | | | | + + + + + + + + | Specimen | + + | | + + + +---------+ + + | Performing | Address | City/State/Zipcode | Phone Number | | Organization | | | | + +---------+ + + | EXTERNAL LAB | | | | + +---------+ + + POC Glucose (04/22/2019 11:28 AM PDT) + + + + + + | Component | Value | Ref Range | Performed | Pathologist | | | | | At | Signature | + + + + + + | Glucose, | 95Comment: Testing | 65 - 99 mg/dL | EXTERNAL | | | Fingerstick | performed at [facility];[address] | | LAB | | | | [address];[place], [place] | | | | | | [address] | | | | + + + + + + + + | Specimen | + + | | + + + +---------+ + + | Performing | Address | City/State/Zipcode | Phone Number | | Organization | | | | + +---------+ + + | EXTERNAL LAB | | | | + +---------+ + + POC Glucose (04/22/2019 8:27 AM PDT) + + + + + + | Component | Value | Ref Range | Performed | Pathologist | | | | | At | Signature | + + + + + + | Glucose, | 90Comment: Testing | 65 - 99 mg/dL | EXTERNAL | | | Fingerstick | performed at [facility];[address] | | LAB | | | | [address];[place] | | | | | | [address] | | | | + + + + + + + + | Specimen | + + | | + + + +---------+ + + | Performing | Address | City/State/Zipcode | Phone Number | | Organization | | | | + +---------+ + + | EXTERNAL LAB | | | | + +---------+ + + External Lab: CBC (04/22/2019 5:54 AM PDT) + + + + + + | Component | Value | Ref Range | Performed | Pathologist | | | | | At | Signature | + + + + + + | WBC | 11.69 (H) | 3.80 - 11.00 | EXTERNAL | | | | | K/uL | LAB | | + + + + + + | RED CELL | 2.70 (L) | 3.70 - 5.10 | EXTERNAL | | | COUNT | | M/uL | LAB | | + + + + + + | Hgb | 7.8 (L) | 11.3 - 15.5 | EXTERNAL | | | | | g/dL | LAB | | + + + + + + | Hematocrit, | 24.1 (L) | 34.0 - 46.0 % | EXTERNAL | | | POC | | | LAB | | + + + + + + | MCV | 89.3 | 80.0 - 100.0 fl | EXTERNAL | | | | | | LAB | | + + + + + + | MCH | 29.0 | 27.0 - 34.0 pg | EXTERNAL | | | | | | LAB | | + + + + + + | MCHC | 32.5 | 32.0 - 35.5 | EXTERNAL | | | | | g/dL | LAB | | + + + + + + | RDW-CV | 57.3 (H) | 37 - 53 fl | EXTERNAL | | | | | | LAB | | + + + + + + | Platelet | 330 | 150 - 400 K/uL | EXTERNAL | | | Count | | | LAB | | | Plasma | | | | | + + + + + + | MPV | 8.6 | fl | EXTERNAL | | | | | | LAB | | + + + + + + | Differentia | MANUAL | | EXTERNAL | | | l Type | | | LAB | | + + + + + + | Segmented | 77 | % | EXTERNAL | | | Neutrophils | | | LAB | | | Manual | | | | | + + + + + + | % Bands | 5 | % | EXTERNAL | | | | | | LAB | | + + + + + + | Lymphocytes | 15 | % | EXTERNAL | | | Manual | | | LAB | | + + + + + + | Monocytes | 3 | % | EXTERNAL | | | Manual | | | LAB | | + + + + + + | Absolute | 9.01 (H) | 1.90 - 7.40 | EXTERNAL | | | Neutrophils | | K/uL | LAB | | + + + + + + | Bands | 0.58 (H) | 0.00 - 0.20 | EXTERNAL | | | Manual | | K/uL | LAB | | + + + + + + | Absolute | 1.75 | 1.00 - 3.90 | EXTERNAL | | | Lymphocytes | | K/uL | LAB | | + + + + + + | Absolute | 0.35 | 0.00 - 0.80 | EXTERNAL | | | Monocytes | | K/uL | LAB | | + + + + + + | RBC | 1+Comment: ANISONORMAL | | EXTERNAL | | | Morphology | PLT MORPHTesting | | LAB | | | | performed at [facility], [address] | | | | | [address], | | | | | | [place] [address] | | | | | | | [...] | | | + +---------+ + + CK Total (04/22/2019 5:54 AM PDT) + + + + + + | Component | Value | Ref Range | Performed | Pathologist | | | | | At | Signature | + + + + + + | CK, Total | 4252 (H)Comment: Testing | 30 - 240 U/L | EXTERNAL | | | | performed at [facility];[address] | | LAB | | | | [address];[place] | | | | | | [address] | | | | + + + [...] + +---------+ + + Basic Metabolic Panel (04/22/2019 5:54 AM PDT) + + + + + + | Component | Value | Ref Range | Performed | Pathologist | | | | | At | Signature | + + + + + + | Na | 135 | 135 - 145 | EXTERNAL | | | | | mmol/L | LAB | | + + + + + + | K | 4.5 | 3.5 - 4.9 | EXTERNAL | | | | | mmol/L | LAB | | + + + + + + | Cl | 103 | 99 - 109 mmol/L | EXTERNAL | | | | | | LAB | | + + + + + + | CO2 | 25 | 23 - 32 mmol/L | EXTERNAL | | | | | | LAB | | + + + + + + | Anion Gap | 12 | 5 - 20 mmol/L | EXTERNAL | | | | | | LAB | | + + + + + + | Glucose, | 105 (H) | 65 - 99 mg/dL | EXTERNAL | | | Fasting | | | LAB | | + + + + + + | BUN | 51 (H) | 8 - 25 mg/dL | EXTERNAL | | | | | | LAB | | + + + + + + | Creatinine | 1.38 (H) | 0.50 - 1.00 | EXTERNAL | | | | | mg/dL | LAB | | + + + + + + | BUN/Creatin | 37 | | EXTERNAL | | | ine Ratio | | | LAB | | + + + + + + | Calcium | 7.5 (L) | 8.5 - 10.5 | EXTERNAL | | | | | mg/dL | LAB | | + + + + + + | Estimated | 41 (L)Comment: GFR <60: | mL/min/1.73m2 | EXTERNAL [...] BY | | | | | | 1.210.This eGFR is | | | | | | calculated using the | | | | | | MDRD IDRI traceable | | | | | | equation.Testing | | | | | | performed at [facility] | | | | | | [facility];[place], [place] | | | | | | [address] | | | | + + + + + + + + | Specimen | + + | Blood specimen | | (specimen) | + + + +---------+ + + | Performing | Address | City/State/Zipcode | Phone Number | | Organization | | | | + +---------+ + + | EXTERNAL LAB | | | | + +---------+ + + POC Glucose (04/22/2019 5:40 AM PDT) + + + + + + | Component | Value | Ref Range | Performed | Pathologist | | | | | At | Signature | + + + + + + | Glucose, | 107 (H)Comment: Testing | 65 - 99 mg/dL | EXTERNAL | | | Fingerstick | performed at [facility];[address] | | LAB | | | | [address];[place] | | | | | | [address] | | | | + + + + + + + + | Specimen | + + | | + + + +---------+ + + | Performing | Address | City/State/Zipcode | Phone Number | | Organization | | | | + +---------+ + + | EXTERNAL LAB | | | | + +---------+ + + Troponin I (04/22/2019 12:30 AM PDT) + + + + + + | Component | Value | Ref Range | Performed | Pathologist | | | | | At | Signature | + + + + + + | Troponin I, | 0.088 (H)Comment: 0.04 | 0.00 - 0.04 | EXTERNAL | | | Qual | ng/mL or less | ng/mL | LAB | | | | Negative, repeat | | | | | | testing in four to six | | | | | | hour if clinically | | | | | | indicted0.05 to 0.77 | | | | | | ng/mL | | | | | | Suspicious for | | | | | | myocardial injury. | | | | | | Serial measurements may | | | | | | be necessary to confirm | | | | | | or exclude the diagnosis | | | | | | of acute coronary | | | | | | syndrome. Repeat testing | | | | | | in four to six hours if | | | | | | indicated.0.78 or | | | | | | greater ng/mL | | | | | | Consistent with | | | | | | myocardial injury. | | | | | | Clinical and laboratory | | | | | | correlation recommended. | | | | | | Testing performed at | | | | | | [facility];[address] [facility] | | | | | | [facility];[place] [address] | | | | + + + + + + + + | Specimen | + + | Blood specimen | | (specimen) | + + + +---------+ + + | Performing | Address | City/State/Zipcode | Phone Number | | Organization | | | | + +---------+ + + | EXTERNAL LAB | | | | + +---------+ + + POC Glucose (04/21/2019 8:56 PM PDT) + + + + + + | Component | Value | Ref Range | Performed | Pathologist | | | | | At | Signature | + + + + + + | Glucose, | 149 (H)Comment: Testing | 65 - 99 mg/dL | EXTERNAL | | | Fingerstick | performed at [facility];[address] | | LAB | | | | [address];[place] | | | | | | [address] | | | | + + + + + + + + | Specimen | + + | | + + + +---------+ + + | Performing | Address | City/State/Zipcode | Phone Number | | Organization | | | | + +---------+ + + | EXTERNAL LAB | | | | + +---------+ + + Troponin I (04/21/2019 6:30 PM PDT) + + + + + + | Component | Value | Ref Range | Performed | Pathologist | | | | | At | Signature | + + + + + + | Troponin I, | 0.086 (H)Comment: 0.04 | 0.00 - 0.04 | EXTERNAL | | | Qual | ng/mL or less | ng/mL | LAB | | | | Negative, repeat | | | | | | testing in four to six | | | | | | hour if clinically | | | | | | indicted0.05 to 0.77 | | | | | | ng/mL | | | | | | Suspicious for | | | | | | myocardial injury. | | | | | | Serial measurements may | | | | | | be necessary to confirm | | | | | | or exclude the diagnosis | | | | | | of acute coronary | | | | | | syndrome. Repeat testing | | | | | | in four to six hours if | | | | | | indicated.0.78 or | | | | | | greater ng/mL | | | | | | Consistent with | | | | | | myocardial injury. | | | | | | Clinical and laboratory | | | | | | correlation recommended. | | | | | | Testing performed at | | | | | | [facility];[address] [place] [address] | | | | | | [facility];[place] [address] | | | | + + + + + + + + | Specimen | + + | Blood specimen | | (specimen) | + + + +---------+ + + | Performing | Address | City/State/Zipcode | Phone Number | | Organization | | | | + +---------+ + + | EXTERNAL LAB | | | | + +---------+ + + POC Glucose (04/21/2019 4:18 PM PDT) + + + + + + | Component | Value | Ref Range | Performed | Pathologist | | | | | At | Signature | + + + + + + | Glucose, | 143 (H)Comment: Testing | 65 - 99 mg/dL | EXTERNAL | | | Fingerstick | performed at [facility];[address] | | LAB | | | | [address];[place], [place] | | | | | | [address] | | | | + + + + + + + + | Specimen | + + | | + + + +---------+ + + | Performing | Address | City/State/Zipcode | Phone Number | | Organization | | | | + +---------+ + + | EXTERNAL LAB | | | | + +---------+ + + Troponin I (04/21/2019 12:42 PM PDT) + + + + + + | Component | Value | Ref Range | Performed | Pathologist | | | | | At | Signature | + + + + + + | Troponin I, | 0.079 (H)Comment: 0.04 | 0.00 - 0.04 | EXTERNAL | | | Qual | ng/mL or less | ng/mL | LAB | | | | Negative, repeat | | | | | | testing in four to six | | | | | | hour if clinically | | | | | | indicted0.05 to 0.77 | | | | | | ng/mL | | | | | | Suspicious for | | | | | | myocardial injury. | | | | | | Serial measurements may | | | | | | be necessary to confirm | | | | | | or exclude the diagnosis | | | | | | of acute coronary | | | | | | syndrome. Repeat testing | | | | | | in four to six hours if | | | | | | indicated.0.78 or | | | | | | greater ng/mL | | | | | | Consistent with | | | | | | myocardial injury. | | | | | | Clinical and laboratory | | | | | | correlation recommended. | | | | | | Testing performed at | | | | | | [facility];[address] [place] [address] | | | | | | [facility];[place] [address] | | | | + + + + + + + + | Specimen | + + | Blood specimen | | (specimen) | + + + +---------+ + + | Performing | Address | City/State/Zipcode | Phone Number | | Organization | | | | + +---------+ + + | EXTERNAL LAB | | | | + +---------+ + + POC Glucose (04/21/2019 11:19 AM PDT) + + + + + + | Component | Value | Ref Range | Performed | Pathologist | | | | | At | Signature | + + + + + + | Glucose, | 157 (H)Comment: Testing | 65 - 99 mg/dL | EXTERNAL | | | Fingerstick | performed at [facility];[address] | | LAB | | | | [address];[place] | | | | | | [id number] | | | | + + + + + + + + | Specimen | + + | | + + + +---------+ + + | Performing | Address | City/State/Zipcode | Phone Number | | Organization | | | | + +---------+ + + | EXTERNAL LAB | | | | + +---------+ + + POC Glucose (04/21/2019 8:22 AM PDT) + + + + + + | Component | Value | Ref Range | Performed | Pathologist | | | | | At | Signature | + + + + + + | Glucose, | 112 (H)Comment: Testing | 65 - 99 mg/dL | EXTERNAL | | | Fingerstick | performed at [facility] [place];[address] | | LAB | | | | [address];[place] | | | | | | [id number] | | | | + + + + + + + + | Specimen | + + | | + + + +---------+ + + | Performing | Address | City/State/Zipcode | Phone Number | | Organization | | | | + +---------+ + + | EXTERNAL LAB | | | | + +---------+ + + CK-MB (04/21/2019 5:40 AM PDT) + + + + + -+ | Component | Value | Ref Range | Performed | Pathologist | | | | | At | Signature | + + + + + -+ | CK-MB | 6.3 (H) | 0.5 - 3.6 ng/mL | EXTERNAL | | | | | | LAB | | + + + + + -+ | CK-MB Index | 0.2Comment: CK INDEX | | EXTERNAL | | | | INTERPRETATION: | | LAB | | | | MMB ng/mL | | | | | | | | | | | |CK INDEX INTERPRETATION: | | | | | | MMB ng/mL | | | | | | | | | | + + + + + -+ + + | Specimen | + + | | + + + +---------+ + + | Performing | Address | City/State/Zipcode | Phone Number | | Organization | | | | + +---------+ + + | EXTERNAL LAB | | | | + +---------+ + + Troponin I (04/21/2019 5:40 AM PDT) + + + + + + | Component | Value | Ref Range | Performed | Pathologist | | | | | At | Signature | + + + + + + | Troponin I, | 0.091 (H)Comment: 0.04 | 0.00 - 0.04 | EXTERNAL | | | Qual | ng/mL or less | ng/mL | LAB | | | | Negative, repeat | | | | | | testing in four to six | | | | | | hour if clinically | | | | | | indicted0.05 to 0.77 | | | | | | ng/mL | | | | | | Suspicious for | | | | | | myocardial injury. | | | | | | Serial measurements may | | | | | | be necessary to confirm | | | | | | or exclude the diagnosis | | | | | | of acute coronary | | | | | | syndrome. Repeat testing | | | | | | in four to six hours if | | | | | | indicated.0.78 or | | | | | | greater ng/mL | | | | | | Consistent with | | | | | | myocardial injury. | | | | | | Clinical and laboratory | | | | | | correlation recommended. | | | | | | Testing performed at | | | | | | [facility];[address] [place] [address] | | | | | | [place] [address] | | | | + + + [...] + +---------+ + + External Lab: CBC (04/21/2019 5:40 AM PDT) + + +---- + + + | Component | Value | Ref Range | Performed | Pathologist | | | | | At | Signature | + + +---- + + + | WBC | 12.32 (H) | 3.8 0 - 11.00 | EXTERNAL | | | | | K/u L | LAB | | + + +---- + + + | RED CELL | 2.53 (L) | 3.7 0 - 5.10 | EXTERNAL | | | COUNT | | M/u L | LAB | | + + +---- + + + | Hgb | 7.3 (L) | 11. 3 - 15.5 | EXTERNAL | | | | | g/d L | LAB | | + + +---- + + + | Hematocrit, | 22.6 (L) | 34. 0 - 46.0 % | EXTERNAL | | | POC | | | LAB | | + + +---- + + + | MCV | 89.0 | 80. 0 - 100.0 fl | EXTERNAL | | | | | | LAB | | + + +---- + + + | MCH | 29.0 | 27. 0 - 34.0 pg | EXTERNAL | | | | | | LAB | | + + +---- + + + | MCHC | 32.6 | 32. 0 - 35.5 | EXTERNAL | | | | | g/d L | LAB | | + + +---- + + + | RDW-CV | 55.6 (H) | 37 - 53 fl | EXTERNAL | | | | | | LAB | | + + +---- + + + | Platelet | 312 | 150 - 400 K/uL | EXTERNAL | | | Count | | | LAB | | | Plasma | | | | | + + +---- + + + | MPV | 8.7 | fl | EXTERNAL | | | | | | LAB | | + + +---- + + + | Differentia | MANUAL | | EXTERNAL | | | l Type | | | LAB | | + + +---- + + + | Segmented | 61 | % | EXTERNAL | | | Neutrophils | | | LAB | | | Manual | | | | | + + +---- + + + | % Bands | 8 | % | EXTERNAL | | | | | | LAB | | + + +---- + + + | % | 4 | % | EXTERNAL | | | Metamyelocy | | | LAB | | | oliverio | | | | | + + +---- + + + | % | 1 | % | EXTERNAL | | | Myelocytes | | | LAB | | + + +---- + + + | Lymphocytes | 19 | % | EXTERNAL | | | Manual | | | LAB | | + + +---- + + + | Monocytes | 6 | % | EXTERNAL | | | Manual | | | LAB | | + + +---- + + + | Eosinophils | 1 | % | EXTERNAL | | | Manual | | | LAB | | + + +---- + + + | Absolute | 7.52 (H) | 1.9 0 - 7.40 | EXTERNAL | | | Neutrophils | | K/u L | LAB | | + + +---- + + + | Bands | 0.99 (H) | 0.0 0 - 0.20 | EXTERNAL | | | Manual | | K/u L | LAB | | + + +---- + + + | Absolute | 0.49 (H) | K/u L | EXTERNAL | | | Metamyelocy | | | LAB | | | oliverio | | | | | + + +---- + + + | Absolute | 0.12 (H) | K/u L | EXTERNAL | | | Myelocytes | | | LAB | | + + +---- + + + | Absolute | 2.34 | 1.0 0 - 3.90 | EXTERNAL | | | Lymphocytes | | K/u L | LAB | | + + +---- + + + | Absolute | 0.74 | 0.0 0 - 0.80 | EXTERNAL | | | Monocytes | | K/u L | LAB | | + + +---- + + + | Absolute | 0.12 | 0.0 0 - 0.50 | EXTERNAL | | | Eosinophils | | K/u L | LAB | | + + +---- + + + | RBC | 1+Comment: | | EXTERNAL | | | Morphology | POIK1+ANISO1+MACROTestin | | LAB | | | | g performed at [facility], [address] | [address] [facility], | | | | | | [place] [address] | | | | | |1+ | | | | | |MACRO | | | | | |Testing performed at [facility], [address] [facility], [place] [address] | | | | | | | [...] | | + +---------+ + + Phosphorus (04/21/2019 5:40 AM PDT) + + + + + + | Component | Value | Ref Range | Performed | Pathologist | | | | | At | Signature | + + + + + + | PHOSPHORUS | 4.5Comment: Testing | 2.3 - 4.8 mg/dL | EXTERNAL | | | | performed at [facility], [address] | | LAB | | | | [address], | | | | | | [place] [address] | | | | + + + + + + + + | Specimen | + + | Blood specimen | | (specimen) | + + + +---------+ + + | Performing | Address | City/State/Zipcode | Phone Number | | Organization | | | | + +---------+ + + | EXTERNAL LAB | | | | + +---------+ + + Magnesium (04/21/2019 5:40 AM PDT) + + + + + + | Component | Value | Ref Range | Performed | Pathologist | | | | | At | Signature | + + + + + + | Magnesium | 1.6 (L)Comment: Testing | 1.7 - 2.4 mg/dL | EXTERNAL | | | | performed at [facility], [address] | | LAB | | | | [address], | | | | | | [place] [address] | | | | + + + + + + + + | Specimen | + + | Blood specimen | | (specimen) | + + + +---------+ + + | Performing | Address | City/State/Zipcode | Phone Number | | Organization | | | | + +---------+ + + | EXTERNAL LAB | | | | + +---------+ + + CK Total (04/21/2019 5:40 AM PDT) + + + + + + | Component | Value | Ref Range | Performed | Pathologist | | | | | At | Signature | + + + + + + | CK, Total | 3048 (H)Comment: Testing | 30 - 240 U/L | EXTERNAL | | | | performed at [facility];[address] | | LAB | | | | [address];[place], [place] | | | | | | [address] | | | | + + + [...] + +---------+ + + Basic Metabolic Panel (04/21/2019 5:40 AM PDT) + + + + + + | Component | Value | Ref Range | Performed | Pathologist | | | | | At | Signature | + + + + + + | Na | 135 | 135 - 145 | EXTERNAL | | | | | mmol/L | LAB | | + + + + + + | K | 4.6 | 3.5 - 4.9 | EXTERNAL | | | | | mmol/L | LAB | | + + + + + + | Cl | 100 | 99 - 109 mmol/L | EXTERNAL | | | | | | LAB | | + + + + + + | CO2 | 24 | 23 - 32 mmol/L | EXTERNAL | | | | | | LAB | | + + + + + + | Anion Gap | 16 | 5 - 20 mmol/L | EXTERNAL | | | | | | LAB | | + + + + + + | Glucose, | 110 (H) | 65 - 99 mg/dL | EXTERNAL | | | Fasting | | | LAB | | + + + + + + | BUN | 55 (H) | 8 - 25 mg/dL | EXTERNAL | | | | | | LAB | | + + + + + + | Creatinine | 1.7 (H) | 0.50 - 1.00 | EXTERNAL | | | | | mg/dL | LAB | | + + + + + + | BUN/Creatin | 32 | | EXTERNAL | | | ine Ratio | | | LAB | | + + + + + + | Calcium | 7.9 (L) | 8.5 - 10.5 | EXTERNAL | | | | | mg/dL | LAB | | + + + + + + | Estimated | 32 (L)Comment: GFR <60: | mL/min/1.73m2 | EXTERNAL [...] BY | | | | | | 1.210.This eGFR is | | | | | | calculated using the | | | | | | MDRD IDMS traceable | | | | | | equation.Testing | | | | | | performed at [facility], [address] | | | | | | [facility], | | | | | | [place] [address] | | | | + + + + + + + + | Specimen | + + | Blood specimen | | (specimen) | + + + +---------+ + + | Performing | Address | City/State/Zipcode | Phone Number | | Organization | | | | + +---------+ + + | EXTERNAL LAB | | | | + +---------+ + + XR Chest 1 Vw (04/21/2019 12:58 AM PDT) + + | Specimen | + + | | + + + + + | Impressions | Performed At | + + + | No acute cardiopulmonary disease. Lungs clear. Signed by: Radha | | Luis E Brown M.D. Sign Date/Time: 04/21/2019 1:01 AM | | + + + + + + | Narrative | Performed At | + + + | CHEST ONE VIEW CLINICAL INFORMATION: Chest pain. COMPARISON: XR | | | CHEST 1 VIEW (04/18/2019); XR CHEST 1 VIEW (04/13/2019); XR CHEST 1 | | | VIEW (01/05/2016); XR CHEST 1 VIEW (01/01/2016); XR CHEST 1 VIEW | | | (12/30/2015); CT CHEST W CONTRAST (10/17/2011); FINDINGS: Left chest | | | single lead presternal AICD. Right PICC line tip terminates near the | | | atrial caval junction. Hypoventilatory changes. No focal | | | consolidation, pneumothorax or pleural effusion. Borderline | | | cardiomegaly. | | + + + + + | Procedure Note | + + | Marcelo Matias Conversion - 05/01/2019 6:13 PM PDT CHEST ONE VIEW | | CLINICAL INFORMATION: | | Chest pain. | | COMPARISON: | | XR CHEST 1 VIEW (04/18/2019); XR CHEST 1 VIEW (04/13/2019); XR CHEST 1 | | VIEW (01/05/2016); XR CHEST 1 VIEW (01/01/2016); XR CHEST 1 VIEW | | (12/30/2015); CT CHEST W CONTRAST (10/17/2011); | | FINDINGS: | | Left chest single lead presternal AICD. Right PICC line tip terminates | | near the atrial caval junction. Hypoventilatory changes. No focal | | consolidation, pneumothorax or pleural effusion. Borderline | | cardiomegaly. | | IMPRESSION: | | No acute cardiopulmonary disease. Lungs clear. | | Signed by: Emy Garcia Zachary | | Sign Date/Time: 04/21/2019 1:01 AM | + + Troponin I (04/21/2019 12:15 AM PDT) + + + + + + | Component | Value | Ref Range | Performed | Pathologist | | | | | At | Signature | + + + + + + | Troponin I, | 0.074 (H)Comment: 0.04 | 0.00 - 0.04 | EXTERNAL | | | Qual | ng/mL or less | ng/mL | LAB | | | | Negative, repeat | | | | | | testing in four to six | | | | | | hour if clinically | | | | | | indicted0.05 to 0.77 | | | | | | ng/mL | | | | | | Suspicious for | | | | | | myocardial injury. | | | | | | Serial measurements may | | | | | | be necessary to confirm | | | | | | or exclude the diagnosis | | | | | | of acute coronary | | | | | | syndrome. Repeat testing | | | | | | in four to six hours if | | | | | | indicated.0.78 or | | | | | | greater ng/mL | | | | | | Consistent with | | | | | | myocardial injury. | | | | | | Clinical and laboratory | | | | | | correlation recommended. | | | | | | Testing performed at | | | | | | [facility];[address] [place] [address] | | | | | | [facility];[place] [address] | | | | + + + [...] + +---------+ + + ECG 12 lead (04/21/2019 12:06 AM PDT) + + + + + + | Component | Value | Ref Range | Performed | Pathologist | | | | | At | Signature | + + + + + + | DIAGNOSIS: | Sinus | | EXTERNAL | | | | tachycardiaPossible Left | | LAB | | | | atrial | | | | | | enlargementIncomplete | | | | | | right bundle branch | | | | | | blockAnterior infarct | | | | | | (cited on or before | | | | | | 08-MAR-2018)Abnormal | | | | | | ECGWhen compared with | | | | | | ECG of 08-MAR-2018 | | | | | | 13:52,No significant | | | | | | change was | | | | | | foundConfirmed by | | | | | | VINOD LUCINAO ([id number]) on | | | | | | 04/21/2019 11:30:23 AM | | | | + + + + + + + + | Specimen | + + | | + + + + + | Narrative | Performed At | + + + | Historically converted procedure from [facility] | EXTERNAL LAB | + + + + +---------+ + + | Performing | Address | City/State/Zipcode | Phone Number | | Organization | | | | + +---------+ + + | EXTERNAL LAB | | | | + +---------+ + + POC Glucose (04/20/2019 9:53 PM PDT) + + + + + + | Component | Value | Ref Range | Performed | Pathologist | | | | | At | Signature | + + + + + + | Glucose, | 179 (H)Comment: Testing | 65 - 99 mg/dL | EXTERNAL | | | Fingerstick | performed at [facility];[address] | | LAB | | | | [address];[place], [place] | | | | | | [address] | | | | + + + + + + + + | Specimen | + + | | + + + +---------+ + + | Performing | Address | City/State/Zipcode | Phone Number | | Organization | | | | + +---------+ + + | EXTERNAL LAB | | | | + +---------+ + + POC Glucose (04/20/2019 4:15 PM PDT) + + + + + + | Component | Value | Ref Range | Performed | Pathologist | | | | | At | Signature | + + + + + + | Glucose, | 176 (H)Comment: Testing | 65 - 99 mg/dL | EXTERNAL | | | Fingerstick | performed at [facility];[address] | | LAB | | | [address];[place], [place] | | | | | | [address] | | | | + + + + + + + + | Specimen | + + | | + + + +---------+ + + | Performing | Address | City/State/Zipcode | Phone Number | | Organization | | | | + +---------+ + + | EXTERNAL LAB | | | | + +---------+ + + Sodium (04/20/2019 2:51 PM PDT) + + + + + + | Component | Value | Ref Range | Performed | Pathologist | | | | | At | Signature | + + + + + + | Na | 130 (L)Comment: Testing | 135 - 145 | EXTERNAL | | | | performed at [facility];[address] | mmol/L | LAB | | | | [address];[place] | | | | | | [address] | | | | + + + + + + + + | Specimen | + + | Blood specimen | | (specimen) | + + + +---------+ + + | Performing | Address | City/State/Zipcode | Phone Number | | Organization | | | | + +---------+ + + | EXTERNAL LAB | | | | + +---------+ + + POC Glucose (04/20/2019 12:10 PM PDT) + + + + + + | Component | Value | Ref Range | Performed | Pathologist | | | | | At | Signature | + + + + + + | Glucose, | 134 (H)Comment: Testing | 65 - 99 mg/dL | EXTERNAL | | | Fingerstick | performed at [facility];[address] | | LAB | | | | [address];[place], [place] | | | | | | [address] | | | | + + + + + + + + | Specimen | + + | | + + + +---------+ + + | Performing | Address | City/State/Zipcode | Phone Number | | Organization | | | | + +---------+ + + | EXTERNAL LAB | | | | + +---------+ + + Sodium (04/20/2019 11:01 AM PDT) + + + + + + | Component | Value | Ref Range | Performed | Pathologist | | | | | At | Signature | + + + + + + | Na | 133 (L)Comment: Testing | 135 - 145 | EXTERNAL | | | | performed at [facility];[address] | mmol/L | LAB | | | | [address];[place] | | | | | | [address] | | | | + + + + + + + + | Specimen | + + | Blood specimen | | (specimen) | + + + +---------+ + + | Performing | Address | City/State/Zipcode | Phone Number | | Organization | | | | + +---------+ + + | EXTERNAL LAB | | | | + +---------+ + + POC Glucose (04/20/2019 5:59 AM PDT) + + + + + + | Component | Value | Ref Range | Performed | Pathologist | | | | | At | Signature | + + + + + + | Glucose, | 131 (H)Comment: Testing | 65 - 99 mg/dL | EXTERNAL | | | Fingerstick | performed at [facility];[address] | | LAB | | | | [address];[place], [place] | | | | | | [address] | | | | + + + + + + + + | Specimen | + + | | + + + +---------+ + + | Performing | Address | City/State/Zipcode | Phone Number | | Organization | | | | + +---------+ + + | EXTERNAL LAB | | | | + +---------+ + + External Lab: ZULEIKA (04/20/2019 3:55 AM PDT) + + + + + + | Component | Value | Ref Range | Performed | Pathologist | | | | | At | Signature | + + + + + + | WBC | 16.83 (H) | 3.80 - 11.00 | EXTERNAL | | | | | K/uL | LAB | | + + + + + + | RED CELL | 2.63 (L) | 3.70 - 5.10 | EXTERNAL | | | COUNT | | M/uL | LAB | | + + + + + + | Hgb | 7.7 (L) | 11.3 - 15.5 | EXTERNAL | | | | | g/dL | LAB | | + + + + + + | Hematocrit, | 23.3 (L) | 34.0 - 46.0 % | EXTERNAL | | | POC | | | LAB | | + + + + + + | MCV | 88.5 | 80.0 - 100.0 fl | EXTERNAL | | | | | | LAB | | + + + + + + | MCH | 29.2 | 27.0 - 34.0 pg | EXTERNAL | | | | | | LAB | | + + + + + + | MCHC | 33.0 | 32.0 - 35.5 | EXTERNAL | | | | | g/dL | LAB | | + + + + + + | RDW-CV | 53.4 (H) | 37 - 53 fl | EXTERNAL | | | | | | LAB | | + + + + + + | Platelet | 297 | 150 - 400 K/uL | EXTERNAL | | | Count | | | LAB | | | Plasma | | | | | + + + + + + | MPV | 8.6 | fl | EXTERNAL | | | | | | LAB | | + + + + + + | Differentia | MANUAL | | EXTERNAL | | | l Type | | | LAB | | + + + + + + | Segmented | 66 | % | EXTERNAL | | | Neutrophils | | | LAB | | | Manual | | | | | + + + + + + | % Bands | 5 | % | EXTERNAL | | | | | | LAB | | + + + + + + | % | 5 | % | EXTERNAL | | | Metamyelocy | | | LAB | | | oliverio | | | | | + + + + + + | % | 3 | % | EXTERNAL | | | Myelocytes | | | LAB | | + + + + + + | Lymphocytes | 14 | % | EXTERNAL | | | Manual | | | LAB | | + + + + + + | Monocytes | 5 | % | EXTERNAL | | | Manual | | | LAB | | + + + + + + | Eosinophils | 2 | % | EXTERNAL | | | Manual | | | LAB | | + + + + + + | Absolute | 11.11 (H) | 1.90 - 7.40 | EXTERNAL | | | Neutrophils | | K/uL | LAB | | + + + + + + | Bands | 0.84 (H) | 0.00 - 0.20 | EXTERNAL | | | Manual | | K/uL | LAB | | + + + + + + | Absolute | 0.84 (H) | K/uL | EXTERNAL | | | Metamyelocy | | | LAB | | | oliverio | | | | | + + + + + + | Absolute | 0.50 (H) | K/uL | EXTERNAL | | | Myelocytes | | | LAB | | + + + + + + | Absolute | 2.36 | 1.00 - 3.90 | EXTERNAL | | | Lymphocytes | | K/uL | LAB | | + + + + + + | Absolute | 0.84 (H) | 0.00 - 0.80 | EXTERNAL | | | Monocytes | | K/uL | LAB | | + + + + + + | Absolute | 0.34 | 0.00 - 0.50 | EXTERNAL | | | Eosinophils | | K/uL | LAB | | + + + + + + | Platelet | ADEQUATE | | EXTERNAL | | | Estimate | | | LAB | | + + + + + + | RBC | PLATELET | | EXTERNAL | | | Morphology | ANISOCYTOSISComment: | | LAB | | | | NORMAL RBC MORPHTesting | | | | | | performed at [facility], [address] | | | | | [address], | | | | | | [place] [address] | | | | + + + [...] + +---------+ + + Basic Metabolic Panel (04/20/2019 3:55 AM PDT) + + + + + + | Component | Value | Ref Range | Performed | Pathologist | | | | | At | Signature | + + + + + + | Na | 131 (L) | 135 - 145 | EXTERNAL | | | | | mmol/L | LAB | | + + + + + + | K | 5.2 (H) | 3.5 - 4.9 | EXTERNAL | | | | | mmol/L | LAB | | + + + + + + | Cl | 99 | 99 - 109 mmol/L | EXTERNAL | | | | | | LAB | | + + + + + + | CO2 | 26 | 23 - 32 mmol/L | EXTERNAL | | | | | | LAB | | + + + + + + | Anion Gap | 11 | 5 - 20 mmol/L | EXTERNAL | | | | | | LAB | | + + + + + + | Glucose, | 142 (H) | 65 - 99 mg/dL | EXTERNAL | | | Fasting | | | LAB | | + + + + + + | BUN | 52 (H) | 8 - 25 mg/dL | EXTERNAL | | | | | | LAB | | + + + + + + | Creatinine | 1.7 (H) | 0.50 - 1.00 | EXTERNAL | | | | | mg/dL | LAB | | + + + + + + | BUN/Creatin | 31 | | EXTERNAL | | | ine Ratio | | | LAB | | + + + + + + | Calcium | 7.5 (L) | 8.5 - 10.5 | EXTERNAL | | | | | mg/dL | LAB | | + + + + + + | Estimated | 32 (L)Comment: GFR <60: | mL/min/1.73m2 | EXTERNAL [...] BY | | | | | | 1.210.This eGFR is | | | | | | calculated using the | | | | | | MDRD IDMS traceable | | | | | | equation.Testing | | | | | | performed at [facility], [address] | | | | | [address], | | | | | | [place] [address] | | | | + + + + + + + + | Specimen | + + | Blood specimen | | (specimen) | + + + +---------+ + + | Performing | Address | City/State/Zipcode | Phone Number | | Organization | | | | + +---------+ + + | EXTERNAL LAB | | | | + +---------+ + + POC Glucose (04/19/2019 9:10 PM PDT) + + + + + + | Component | Value | Ref Range | Performed | Pathologist | | | | | At | Signature | + + + + + + | Glucose, | 174 (H)Comment: Testing | 65 - 99 mg/dL | EXTERNAL | | | Fingerstick | performed at [facility];[address] | | LAB | | | | [address];[place] | | | | | | [address] | | | | + + + + + + + + | Specimen | + + | | + + + +---------+ + + | Performing | Address | City/State/Zipcode | Phone Number | | Organization | | | | + +---------+ + + | EXTERNAL LAB | | | | + +---------+ + + POC Glucose (04/19/2019 4:30 PM PDT) + + + + + + | Component | Value | Ref Range | Performed | Pathologist | | | | | At | Signature | + + + + + + | Glucose, | 116 (H)Comment: Testing | 65 - 99 mg/dL | EXTERNAL | | | Fingerstick | performed at [facility];[address] | | LAB | | | | [address] [facility];[place], [place] | | | | | | [address] | | | | + + + + + + + + | Specimen | + + | | + + + +---------+ + + | Performing | Address | City/State/Zipcode | Phone Number | | Organization | | | | + +---------+ + + | EXTERNAL LAB | | | | + +---------+ + + External Lab: Vitamin D, 1,25-Dihydroxy (04/19/2019 4:26 PM PDT) + + + + + + | Component | Value | Ref Range | Performed | Pathologist | | | | | At | Signature | + + + + + + | 1,25 | 26.2Comment: Reference | pg/mL | EXTERNAL | | | DIHYDROXY | range: 19.9 to | | LAB | | | VITAMIN D | 79.3Testing performed at | | | | | | [facility], [address], | | | | | | [address], [facility] | | | | | | [address] | | | | + + + + + + + + | Specimen | + + | | + + + +---------+ + + | Performing | Address | City/State/Zipcode | Phone Number | | Organization | | | | + +---------+ + + | EXTERNAL LAB | | | | + +---------+ + + Sodium (04/19/2019 1:49 PM PDT) + + + + + + | Component | Value | Ref Range | Performed | Pathologist | | | | | At | Signature | + + + + + + | Na | 132 (L)Comment: Testing | 135 - 145 | EXTERNAL | | | | performed at [facility];[address] | mmol/L | LAB | | | | [address];[place], [place] | | | | | | [address] | | | | + + + + + + + + | Specimen | + + | Blood specimen | | (specimen) | + + + +---------+ + + | Performing | Address | City/State/Zipcode | Phone Number | | Organization | | | | + +---------+ + + | EXTERNAL LAB | | | | + +---------+ + + POC Glucose (04/19/2019 11:54 AM PDT) + + + + + + | Component | Value | Ref Range | Performed | Pathologist | | | | | At | Signature | + + + + + + | Glucose, | 150 (H)Comment: Testing | 65 - 99 mg/dL | EXTERNAL | | | Fingerstick | performed at [facility] | | LAB | | | | [address];[place], [place] | | | | | | [address] | | | | + + + + + + + + | Specimen | + + | | + + + +---------+ + + | Performing | Address | City/State/Zipcode | Phone Number | | Organization | | | | + +---------+ + + | EXTERNAL LAB | | | | + +---------+ + + Culture, Urine (04/19/2019 10:51 AM PDT) + + | Specimen | + + | Urine specimen | | (specimen) | + + + + + | Narrative | Performed At | + + + | Specimen Description URINE,CLEAN CATCH CULTURE | EXTERNAL LAB | | NO GROWTH | | + + + + +---------+ + + | Performing | Address | City/State/Zipcode | Phone Number | | Organization | | | | + +---------+ + + | EXTERNAL LAB | | | | + +---------+ + + Urinalysis, Microscopic Only (04/19/2019 10:42 AM PDT) + + + + + + | Component | Value | Ref Range | Performed | Pathologist | | | | | At | Signature | + + + + + + | WBC, UA | 6-10Comment: | 0 - 5 /hpf | EXTERNAL | | | | | | LAB | | + + + + + + | RBC, UA | 3-5 | 0 - 5 /hpf | EXTERNAL | | | | | | LAB | | + + + + + + | Epithelial | 6-10 | /lpf | EXTERNAL | | | Cells | | | LAB | | + + + + + + | Bacteria, | 1+ (A) | | EXTERNAL | | | UA | | | LAB | | + + + + + + | MUCUS UA | 1+Comment: Testing | | EXTERNAL | | | | performed at [facility], [address] | | LAB | | | | [address], | | | | | | [place] [address] | | | | + + + + + + + + | Specimen | + + | Urine specimen | | (specimen) | + + + +---------+ + + | Performing | Address | City/State/Zipcode | Phone Number | | Organization | | | | + +---------+ + + | EXTERNAL LAB | | | | + +---------+ + + Sodium (04/19/2019 9:32 AM PDT) + + + + + + | Component | Value | Ref Range | Performed | Pathologist | | | | | At | Signature | + + + + + + | Na | 131 (L)Comment: Testing | 135 - 145 | EXTERNAL | | | | performed at [facility];[address] | mmol/L | LAB | | | | [address];[place], [place] | | | | | | [address] | | | | + + + + + + + + | Specimen | + + | Blood specimen | | (specimen) | + + + +---------+ + + | Performing | Address | City/State/Zipcode | Phone Number | | Organization | | | | + +---------+ + + | EXTERNAL LAB | | | | + +---------+ + + POC Glucose (04/19/2019 8:17 AM PDT) + + + + + + | Component | Value | Ref Range | Performed | Pathologist | | | | | At | Signature | + + + + + + | Glucose, | 138 (H)Comment: Testing | 65 - 99 mg/dL | EXTERNAL | | | Fingerstick | performed at [facility] [place];[address] | | LAB | | | | [address];[place], [place] | | | | | | [id number] | | | | + + + + + + + + | Specimen | + + | | + + + +---------+ + + | Performing | Address | City/State/Zipcode | Phone Number | | Organization | | | | + +---------+ + + | EXTERNAL LAB | | | | + +---------+ + + POC Glucose (04/19/2019 5:25 AM PDT) + + + + + + | Component | Value | Ref Range | Performed | Pathologist | | | | | At | Signature | + + + + + + | Glucose, | 112 (H)Comment: Testing | 65 - 99 mg/dL | EXTERNAL | | | Fingerstick | performed at [facility] [place];[address] | | LAB | | | | [address];[place] | | | | | | [address] | | | | + + + + + + + + | Specimen | + + | | + + + +---------+ + + | Performing | Address | City/State/Zipcode | Phone Number | | Organization | | | | + +---------+ + + | EXTERNAL LAB | | | | + +---------+ + + External Lab: CBC (04/19/2019 1:45 AM PDT) + + + + + + | Component | Value | Ref Range | Performed | Pathologist | | | | | At | Signature | + + + + + + | WBC | 27.78 (H) | 3.80 - 11.00 | EXTERNAL | | | | | K/uL | LAB | | + + + + + + | RED CELL | 3.07 (L) | 3.70 - 5.10 | EXTERNAL | | | COUNT | | M/uL | LAB | | + + + + + + | Hgb | 8.8 (L) | 11.3 - 15.5 | EXTERNAL | | | | | g/dL | LAB | | + + + + + + | Hematocrit, | 26.9 (L) | 34.0 - 46.0 % | EXTERNAL | | | POC | | | LAB | | + + + + + + | MCV | 87.8 | 80.0 - 100.0 fl | EXTERNAL | | | | | | LAB | | + + + + + + | MCH | 28.6 | 27.0 - 34.0 pg | EXTERNAL | | | | | | LAB | | + + + + + + | MCHC | 32.6 | 32.0 - 35.5 | EXTERNAL | | | | | g/dL | LAB | | + + + + + + | RDW-CV | 52.5 | 37 - 53 fl | EXTERNAL | | | | | | LAB | | + + + + + + | Platelet | 309 | 150 - 400 K/uL | EXTERNAL | | | Count | | | LAB | | | Plasma | | | | | + + + + + + | MPV | 8.8 | fl | EXTERNAL | | | | | | LAB | | + + + + + + | Differentia | MANUAL | | EXTERNAL | | | l Type | | | LAB | | + + + + + + | Segmented | 54 | % | EXTERNAL | | | Neutrophils | | | LAB | | | Manual | | | | | + + + + + + | % Bands | 8 | % | EXTERNAL | | | | | | LAB | | + + + + + + | % | 9 | % | EXTERNAL | | | Metamyelocy | | | LAB | | | oliverio | | | | | + + + + + + | % | 7 | % | EXTERNAL | | | Myelocytes | | | LAB | | + + + + + + | Lymphocytes | 18 | % | EXTERNAL | | | Manual | | | LAB | | + + + + + + | Monocytes | 3 | % | EXTERNAL | | | Manual | | | LAB | | + + + + + + | Eosinophils | 1 | % | EXTERNAL | | | Manual | | | LAB | | + + + + + + | Absolute | 15.01 (H) | 1.90 - 7.40 | EXTERNAL | | | Neutrophils | | K/uL | LAB | | + + + + + + | Bands | 2.22 (H) | 0.00 - 0.20 | EXTERNAL | | | Manual | | K/uL | LAB | | + + + + + + | Absolute | 2.50 (H) | K/uL | EXTERNAL | | | Metamyelocy | | | LAB | | | oliverio | | | | | + + + + + + | Absolute | 1.94 (H) | K/uL | EXTERNAL | | | Myelocytes | | | LAB | | + + + + + + | Absolute | 5.00 (H) | 1.00 - 3.90 | EXTERNAL | | | Lymphocytes | | K/uL | LAB | | + + + + + + | Absolute | 0.83 (H) | 0.00 - 0.80 | EXTERNAL | | | Monocytes | | K/uL | LAB | | + + + + + + | Absolute | 0.28 | 0.00 - 0.50 | EXTERNAL | | | Eosinophils | | K/uL | LAB | | + + + + + + | Platelet | INCREASED | | EXTERNAL | | | Estimate | | | LAB | | + + + + + + | RBC | RBC AND PLT MORPHOLOGY | | EXTERNAL | | | Morphology | APPEAR NORMALComment: | | LAB | | | | Testing performed at | | | | | | [facility], [address] | | | | | | [place] | | | | | | [address] | | | | + + + [...] + +---------+ + + Basic Metabolic Panel (04/19/2019 1:45 AM PDT) + + + + + + | Component | Value | Ref Range | Performed | Pathologist | | | | | At | Signature | + + + + + + | Na | 132 (L) | 135 - 145 | EXTERNAL | | | | | mmol/L | LAB | | + + + + + + | K | 5.2 (H) | 3.5 - 4.9 | EXTERNAL | | | | | mmol/L | LAB | | + + + + + + | Cl | 99 | 99 - 109 mmol/L | EXTERNAL | | | | | | LAB | | + + + + + + | CO2 | 25 | 23 - 32 mmol/L | EXTERNAL | | | | | | LAB | | + + + + + + | Anion Gap | 13 | 5 - 20 mmol/L | EXTERNAL | | | | | | LAB | | + + + + + + | Glucose, | 74 | 65 - 99 mg/dL | EXTERNAL | | | Fasting | | | LAB | | + + + + + + | BUN | 57 (H) | 8 - 25 mg/dL | EXTERNAL | | | | | | LAB | | + + + + + + | Creatinine | 1.8 (H) | 0.50 - 1.00 | EXTERNAL | | | | | mg/dL | LAB | | + + + + + + | BUN/Creatin | 32 | | EXTERNAL | | | ine Ratio | | | LAB | | + + + + + + | Calcium | 7.8 (L) | 8.5 - 10.5 | EXTERNAL | | | | | mg/dL | LAB | | + + + + + + | Estimated | 30 (L)Comment: GFR <60: | mL/min/1.73m2 | EXTERNAL [...] BY | | | | | | 1.210.This eGFR is | | | | | | calculated using the | | | | | | MDRD IDMS traceable | | | | | | equation.Testing | | | | | | performed at [facility], [address] | | | | | [facility], | | | | | | [place] [address] | | | | + + + + + + + + | Specimen | + + | Blood specimen | | (specimen) | + + + +---------+ + + | Performing | Address | City/State/Zipcode | Phone Number | | Organization | | | | + +---------+ + + | EXTERNAL LAB | | | | + +---------+ + + POC Glucose (04/18/2019 8:58 PM PDT) + + + + + + | Component | Value | Ref Range | Performed | Pathologist | | | | | At | Signature | + + + + + + | Glucose, | 156 (H)Comment: Testing | 65 - 99 mg/dL | EXTERNAL | | | Fingerstick | performed at [facility];[address] | | LAB | | | | [address];[place], [place] | | | | | | [address] | | | | + + + + + + + + | Specimen | + + | | + + + +---------+ + + | Performing | Address | City/State/Zipcode | Phone Number | | Organization | | | | + +---------+ + + | EXTERNAL LAB | | | | + +---------+ + + Sodium (04/18/2019 7:56 PM PDT) + + + + + + | Component | Value | Ref Range | Performed | Pathologist | | | | | At | Signature | + + + + + + | Na | 130 (L)Comment: Testing | 135 - 145 | EXTERNAL | | | | performed at [facility];[address] | mmol/L | LAB | | | | [address];[place] | | | | | | [address] | | | | + + + [...] + +---------+ + + Basic Metabolic Panel (04/18/2019 5:18 PM PDT) + + + + + + | Component | Value | Ref Range | Performed | Pathologist | | | | | At | Signature | + + + + + + | Na | 130 (L) | 135 - 145 | EXTERNAL | | | | | mmol/L | LAB | | + + + + + + | K | 5.7 (H) | 3.5 - 4.9 | EXTERNAL | | | | | mmol/L | LAB | | + + + + + + | Cl | 99 | 99 - 109 mmol/L | EXTERNAL | | | | | | LAB | | + + + + + + | CO2 | 23 | 23 - 32 mmol/L | EXTERNAL | | | | | | LAB | | + + + + + + | Anion Gap | 14 | 5 - 20 mmol/L | EXTERNAL | | | | | | LAB | | + + + + + + | Glucose, | 84 | 65 - 99 mg/dL | EXTERNAL | | | Fasting | | | LAB | | + + + + + + | BUN | 54 (H) | 8 - 25 mg/dL | EXTERNAL | | | | | | LAB | | + + + + + + | Creatinine | 1.7 (H) | 0.50 - 1.00 | EXTERNAL | | | | | mg/dL | LAB | | + + + + + + | BUN/Creatin | 32 | | EXTERNAL | | | ine Ratio | | | LAB | | + + + + + + | Calcium | 8.0 (L) | 8.5 - 10.5 | EXTERNAL | | | | | mg/dL | LAB | | + + + + + + | Estimated | 32 (L)Comment: GFR <60: | mL/min/1.73m2 | EXTERNAL [...] BY | | | | | | 1.210.This eGFR is | | | | | | calculated using the | | | | | | MDRD IDMS traceable | | | | | | equation.Testing | | | | | | performed at [facility], [address] | | | | | | [facility], | | | | | | [place] [address] | | | | + + + + + + + + | Specimen | + + | Blood specimen | | (specimen) | + + + +---------+ + + | Performing | Address | City/State/Zipcode | Phone Number | | Organization | | | | + +---------+ + + | EXTERNAL LAB | | | | + +---------+ + + POC Glucose (04/18/2019 4:10 PM PDT) + + + + + + | Component | Value | Ref Range | Performed | Pathologist | | | | | At | Signature | + + + + + + | Glucose, | 83Comment: Testing | 65 - 99 mg/dL | EXTERNAL | | | Fingerstick | performed at [facility];[address] | | LAB | | | | [address];[place] | | | | | | [address] | | | | + + + + + + + + | Specimen | + + | | + + + +---------+ + + | Performing | Address | City/State/Zipcode | Phone Number | | Organization | | | | + +---------+ + + | EXTERNAL LAB | | | | + +---------+ + + Gram Stain, reflex Sputum Culture (04/18/2019 2:48 PM PDT) + + | Specimen | + + | Body fluid sample | | (specimen) | + + + + + | Narrative | Performed At | + + + | Specimen Description SPUTUM GRAM STAIN | EXTERNAL LAB | | GREATER THAN 10 WBCS/LPF | | | LESS THAN 10 SEC/LPF | | | NO ORGANISMS SEEN | | | CULTURE 1+ | | | NORMAL UPPER | | | RESPIRATORY RADHA | | + + + + +---------+ + + | Performing | Address | City/State/Zipcode | Phone Number | | Organization | | | | + +---------+ + + | EXTERNAL LAB | | | | + +---------+ + + Sodium (04/18/2019 2:09 PM PDT) + + + + + + | Component | Value | Ref Range | Performed | Pathologist | | | | | At | Signature | + + + + + + | Na | 134 (L)Comment: Testing | 135 - 145 | EXTERNAL | | | | performed at [facility];[address] | mmol/L | LAB | | | | [address];[place] | | | | | | [address] | | | | + + + + + + + + | Specimen | + + | Blood specimen | | (specimen) | + + + +---------+ + + | Performing | Address | City/State/Zipcode | Phone Number | | Organization | | | | + +---------+ + + | EXTERNAL LAB | | | | + +---------+ + + XR Chest 1 Vw (04/18/2019 12:36 PM PDT) + + | Specimen | + + | | + + + + + | Impressions | Performed At | + + + | 1. Resolution previous CHF and pulmonary edema perhaps with subtle | | | residual effusions. Signed by: Emy Rivers Shawn Sign Date/Time: | | | 04/18/2019 1:27 PM | | + + + + + + | Narrative | Performed At | + + + | CHEST ONE VIEW CLINICAL INFORMATION: Pneumonia and sepsis. | | | COMPARISON: XR CHEST 1 VIEW (04/13/2019); ECHO OUTSIDE INTERPRETATION | | | (03/24/2017); XR CHEST 1 VIEW (01/05/2016); FINDINGS: Previous left IJ | | | catheter is been removed. No pneumothorax. Single lead AICD with | | | battery pack over the left chest with lead extending vertically into | | | the precordial region. Resolution of previous pulmonary venous | | | congestion and interstitial edema. Subtle residual effusions are | | | suspected. Heart size is normal. | | + + + + + | Procedure Note | + + | Marcelo Matias Conversion - 05/01/2019 6:13 PM PDT CHEST ONE VIEW | | CLINICAL INFORMATION: | | Pneumonia and sepsis. | | COMPARISON: | | XR CHEST 1 VIEW (04/13/2019); ECHO OUTSIDE INTERPRETATION (03/24/2017); XR | | CHEST 1 VIEW (01/05/2016); | | FINDINGS: | | Previous left IJ catheter is been removed. No pneumothorax. Single | | lead AICD with battery pack over the left chest with lead extending | | vertically into the precordial region. Resolution of previous | | pulmonary venous congestion and interstitial edema. Subtle residual | | effusions are suspected. Heart size is normal. | | IMPRESSION: | | 1. Resolution previous CHF and pulmonary edema perhaps with subtle | | residual effusions. | | Signed by: Emy Rivers Shawn | | Sign Date/Time: 04/18/2019 1:27 PM | + + POC Glucose (04/18/2019 12:00 PM PDT) + + + + + + | Component | Value | Ref Range | Performed | Pathologist | | | | | At | Signature | + + + + + + | Glucose, | 102 (H)Comment: Testing | 65 - 99 mg/dL | EXTERNAL | | | Fingerstick | performed at [facility];[address] | | LAB | | | [address];[place], [place] | | | | | | [address] | | | | + + + + + + + + | Specimen | + + | | + + + +---------+ + + | Performing | Address | City/State/Zipcode | Phone Number | | Organization | | | | + +---------+ + + | EXTERNAL LAB | | | | + +---------+ + + Sodium (04/18/2019 8:15 AM PDT) + + + + + + | Component | Value | Ref Range | Performed | Pathologist | | | | | At | Signature | + + + + + + | Na | 131 (L)Comment: Testing | 135 - 145 | EXTERNAL | | | | performed at [facility];[address] | mmol/L | LAB | | | | [address];[place] | | | | | | [address] | | | | + + + + + + + + | Specimen | + + | Blood specimen | | (specimen) | + + + +---------+ + + | Performing | Address | City/State/Zipcode | Phone Number | | Organization | | | | + +---------+ + + | EXTERNAL LAB | | | | + +---------+ + + POC Glucose (04/18/2019 5:43 AM PDT) + + + + + + | Component | Value | Ref Range | Performed | Pathologist | | | | | At | Signature | + + + + + + | Glucose, | 167 (H)Comment: Testing | 65 - 99 mg/dL | EXTERNAL | | | Fingerstick | performed at [facility];[address] | | LAB | | | | [address];[place], [place] | | | | | | [address] | | | | + + + + + + + + | Specimen | + + | | + + + +---------+ + + | Performing | Address | City/State/Zipcode | Phone Number | | Organization | | | | + +---------+ + + | EXTERNAL LAB | | | | + +---------+ + + External Lab: CBC (04/18/2019 2:00 AM PDT) + + +---- + + + | Component | Value | Ref Range | Performed | Pathologist | | | | | At | Signature | + + +---- + + + | WBC | 28.77 (H) | 3.8 0 - 11.00 | EXTERNAL | | | | | K/u L | LAB | | + + +---- + + + | RED CELL | 3.16 (L) | 3.7 0 - 5.10 | EXTERNAL | | | COUNT | | M/u L | LAB | | + + +---- + + + | Hgb | 9.0 (L) | 11. 3 - 15.5 | EXTERNAL | | | | | g/d L | LAB | | + + +---- + + + | Hematocrit, | 27.9 (L) | 34. 0 - 46.0 % | EXTERNAL | | | POC | | | LAB | | + + +---- + + + | MCV | 88.5 | 80. 0 - 100.0 fl | EXTERNAL | | | | | | LAB | | + + +---- + + + | MCH | 28.5 | 27. 0 - 34.0 pg | EXTERNAL | | | | | | LAB | | + + +---- + + + | MCHC | 32.2 | 32. 0 - 35.5 | EXTERNAL | | | | | g/d L | LAB | | + + +---- + + + | RDW-CV | 51.6 | 37 - 53 fl | EXTERNAL | | | | | | LAB | | + + +---- + + + | Platelet | 278 | 150 - 400 K/uL | EXTERNAL | | | Count | | | LAB | | | Plasma | | | | | + + +---- + + + | MPV | 8.4 | fl | EXTERNAL | | | | | | LAB | | + + +---- + + + | Differentia | MANUAL | | EXTERNAL | | | l Type | | | LAB | | + + +---- + + + | Segmented | 63 | % | EXTERNAL | | | Neutrophils | | | LAB | | | Manual | | | | | + + +---- + + + | % Bands | 9 | % | EXTERNAL | | | | | | LAB | | + + +---- + + + | % | 7 | % | EXTERNAL | | | Metamyelocy | | | LAB | | | oliverio | | | | | + + +---- + + + | % | 3 | % | EXTERNAL | | | Myelocytes | | | LAB | | + + +---- + + + | Lymphocytes | 13 | % | EXTERNAL | | | Manual | | | LAB | | + + +---- + + + | Monocytes | 3 | % | EXTERNAL | | | Manual | | | LAB | | + + +---- + + + | Eosinophils | 2 | % | EXTERNAL | | | Manual | | | LAB | | + + +---- + + + | Absolute | 18.13 (H) | 1.9 0 - 7.40 | EXTERNAL | | | Neutrophils | | K/u L | LAB | | + + +---- + + + | Bands | 2.59 (H) | 0.0 0 - 0.20 | EXTERNAL | | | Manual | | K/u L | LAB | | + + +---- + + + | Absolute | 2.01 (H) | K/u L | EXTERNAL | | | Metamyelocy | | | LAB | | | oliverio | | | | | + + +---- + + + | Absolute | 0.86 (H) | K/u L | EXTERNAL | | | Myelocytes | | | LAB | | + + +---- + + + | Absolute | 3.74 | 1.0 0 - 3.90 | EXTERNAL | | | Lymphocytes | | K/u L | LAB | | + + +---- + + + | Absolute | 0.86 (H) | 0.0 0 - 0.80 | EXTERNAL | | | Monocytes | | K/u L | LAB | | + + +---- + + + | Absolute | 0.58 (H) | 0.0 0 - 0.50 | EXTERNAL | | | Eosinophils | | K/u L | LAB | | + + +---- + + + | RBC | 1+Comment: | | EXTERNAL | | | Morphology | ANISO1+POLYNORMAL PLT | | LAB | | | | MORPHTesting performed | | | | | | at [facility], [address] | | | | | [facility], | | | | | | [place] [address] | | | | | |Testing performed at [facility], [address] [facility], [place] [address] | | | | | | | [...] + +---------+ + + Basic Metabolic Panel (04/18/2019 2:00 AM PDT) + + + + + + | Component | Value | Ref Range | Performed | Pathologist | | | | | At | Signature | + + + + + + | Na | 130 (L) | 135 - 145 | EXTERNAL | | | | | mmol/L | LAB | | + + + + + + | K | 5.7 (H) | 3.5 - 4.9 | EXTERNAL | | | | | mmol/L | LAB | | + + + + + + | Cl | 100 | 99 - 109 mmol/L | EXTERNAL | | | | | | LAB | | + + + + + + | CO2 | 23 | 23 - 32 mmol/L | EXTERNAL | | | | | | LAB | | + + + + + + | Anion Gap | 13 | 5 - 20 mmol/L | EXTERNAL | | | | | | LAB | | + + + + + + | Glucose, | 177 (H) | 65 - 99 mg/dL | EXTERNAL | | | Fasting | | | LAB | | + + + + + + | BUN | 48 (H) | 8 - 25 mg/dL | EXTERNAL | | | | | | LAB | | + + + + + + | Creatinine | 1.74 (H) | 0.50 - 1.00 | EXTERNAL | | | | | mg/dL | LAB | | + + + + + + | BUN/Creatin | 28 | | EXTERNAL | | | ine Ratio | | | LAB | | + + + + + + | Calcium | 7.9 (L) | 8.5 - 10.5 | EXTERNAL | | | | | mg/dL | LAB | | + + + + + + | Estimated | 31 (L)Comment: GFR <60: | mL/min/1.73m2 | EXTERNAL [...] BY | | | | | | 1.210.This eGFR is | | | | | | calculated using the | | | | | | MDRD IDMS traceable | | | | | | equation.Testing | | | | | | performed at [facility];[address] | | | | | | [address];[place], [place] | | | | | | [address] | | | | + + + + + + + + | Specimen | + + | Blood specimen | | (specimen) | + + + +---------+ + + | Performing | Address | City/State/Zipcode | Phone Number | | Organization | | | | + +---------+ + + | EXTERNAL LAB | | | | + +---------+ + + POC Glucose (04/17/2019 8:07 PM PDT) + + + + + + | Component | Value | Ref Range | Performed | Pathologist | | | | | At | Signature | + + + + + + | Glucose, | 140 (H)Comment: Testing | 65 - 99 mg/dL | EXTERNAL | | | Fingerstick | performed at [facility];[address] | | LAB | | | | [address];[place], [place] | | | | | | [address] | | | | + + + + + + + + | Specimen | + + | | + + + +---------+ + + | Performing | Address | City/State/Zipcode | Phone Number | | Organization | | | | + +---------+ + + | EXTERNAL LAB | | | | + +---------+ + + Iron and Iron Binding Capacity (04/17/2019 7:52 PM PDT) + + + + + + | Component | Value | Ref Range | Performed | Pathologist | | | | | At | Signature | + + + + + + | Iron | 40 | 30 - 180 ug/dL | EXTERNAL | | | | | | LAB | | + + + + + + | TIBC | 194 (L) | 260 - 490 ug/dL | EXTERNAL | | | | | | LAB | | + + + + + + | Iron | 21Comment: Testing | 15 - 50 % | EXTERNAL | | | Saturation | performed at [facility], [address] | | LAB | | | | [address], | | | | | | [place] [address] | | | | + + + [...] + + Vitamin D, Deficiency Screen (25-Hydroxy) (04/17/2019 7:52 PM PDT) + + + + + + | Component | Value | Ref Range | Performed | Pathologist | | | | | At | Signature | + + + + + + | Vit D, | 50Comment: <20 ng/mL | 30 - 150 ng/mL | EXTERNAL | | | 25-Hydroxy | Suggests deficiency | | LAB | | | | of 25-OH Vitamin | | | | | | D.20-29 ng/mL | | | | | | Suggests a relative | | | | | | insufficiency of 25-OH | | | | | | Vitamin D.30-150 ng/mL | | | | | | Suggests a sufficient | | | | | | level of 25-OH Vitamin | | | | | | D.>150 ng/mL Toxic | | | | | | level of 25-OH Vitamin | | | | | | D.Blood levels of 25 | | | | | | Hydroxy Vitamin D vary | | | | | | with the extent of sun | | | | | | exposure. Values tend to | | | | | | be highest in late | | | | | | summer and lowest in the | | | | | | spring. Values also | | | | | | tend to decrease with | | | | | | age, due to decreased | | | | | | precursor synthesis in | | | | | | the skin.Testing | | | | | | performed at [facility], [address] | | | | | | [address], | | | | | | [place] [address] | | | | + + + + + + + + | Specimen | + + | Blood specimen | | (specimen) | + + + +---------+ + + | Performing | Address | City/State/Zipcode | Phone Number | | Organization | | | | + +---------+ + + | EXTERNAL LAB | | | | + +---------+ + + Rapid Plasma Vijay Blair (04/17/2019 7:52 PM PDT) + + + + + + | Component | Value | Ref Range | Performed | Pathologist | | | | | At | Signature | + + + + + + | RPR TITER | Non ReactiveComment: | | EXTERNAL | | | | Reference range: | | LAB | | | | NonRea<1:1Testing | | | | | | performed at [facility], | | | | | | [address], [address], | | | | | | [facility] [address] | | | | + + + + + + + + | Specimen | + + | Blood specimen | | (specimen) | + + + +---------+ + + | Performing | Address | City/State/Zipcode | Phone Number | | Organization | | | | + +---------+ + + | EXTERNAL LAB | | | | + +---------+ + + TSH (04/17/2019 7:52 PM PDT) + + + + + + | Component | Value | Ref Range | Performed | Pathologist | | | | | At | Signature | + + + + + + | TSH | 9.360 (H)Comment: | 0.450 - 5.100 | EXTERNAL | | | | Testing performed at | uIU/mL | LAB | | | | [facility], [address] [facility] | | | | | | [place] | | | | | | [address] | | | | + + + + + + + + | Specimen | + + | Blood specimen | | (specimen) | + + + +---------+ + + | Performing | Address | City/State/Zipcode | Phone Number | | Organization | | | | + +---------+ + + | EXTERNAL LAB | | | | + +---------+ + + Folate (04/17/2019 7:52 PM PDT) + + + + + + | Component | Value | Ref Range | Performed | Pathologist | | | | | At | Signature | + + + + + + | Folate | 13.6Comment: Testing | ng/mL | EXTERNAL | | | | performed at [facility], [address] | | LAB | | | | [address], | | | | | | [place] [address] | | | | + + + + + + + + | Specimen | + + | Blood specimen | | (specimen) | + + + +---------+ + + | Performing | Address | City/State/Zipcode | Phone Number | | Organization | | | | + +---------+ + + | EXTERNAL LAB | | | | + +---------+ + + Ferritin (04/17/2019 7:52 PM PDT) + + + + + + | Component | Value | Ref Range | Performed | Pathologist | | | | | At | Signature | + + + + + + | Ferritin, | 2,076 (H)Comment: | 6 - 170 ng/mL | EXTERNAL | | | External | Testing performed at | | LAB | | | | [facility], [address] | | | | | | [place] | | | | | | [address] | | | | + + + + + + + + | Specimen | + + | Blood specimen | | (specimen) | + + + +---------+ + + | Performing | Address | City/State/Zipcode | Phone Number | | Organization | | | | + +---------+ + + | EXTERNAL LAB | | | | + +---------+ + + Vitamin B-12 04/17/2019 7:52 PM PDT) + + + + + + | Component | Value | Ref Range | Performed | Pathologist | | | | | At | Signature | + + + + + + | VITAMIN | >2000 (H)Comment: | 254 - 1,320 | EXTERNAL | | | B-12 | Testing performed at | pg/mL | LAB | | | | [facility], [address], [place] | | | | | | [address] | | | | + + + + + + + + | Specimen | + + | Blood specimen | | (specimen) | + + + +---------+ + + | Performing | Address | City/State/Zipcode | Phone Number | | Organization | | | | + +---------+ + + | EXTERNAL LAB | | | | + +---------+ + + POC Glucose (04/17/2019 3:57 PM PDT) + + + + + + | Component | Value | Ref Range | Performed | Pathologist | | | | | At | Signature | + + + + + + | Glucose, | 88Comment: Testing | 65 - 99 mg/dL | EXTERNAL | | | Fingerstick | performed at [facility];[address] | | LAB | | | [address];[place], [place] | | | | | | [address] | | | | + + + + + + + + | Specimen | + + | | + + + +---------+ + + | Performing | Address | City/State/Zipcode | Phone Number | | Organization | | | | + +---------+ + + | EXTERNAL LAB | | | | + +---------+ + + Sodium (04/17/2019 2:47 PM PDT) + + + + + + | Component | Value | Ref Range | Performed | Pathologist | | | | | At | Signature | + + + + + + | Na | 133 (L)Comment: Testing | 135 - 145 | EXTERNAL | | | | performed at [facility];[address] | mmol/L | LAB | | | | [address];[place], [place] | | | | | | [address] | | | | + + + + + + + + | Specimen | + + | Blood specimen | | (specimen) | + + + +---------+ + + | Performing | Address | City/State/Zipcode | Phone Number | | Organization | | | | + +---------+ + + | EXTERNAL LAB | | | | + +---------+ + + POC Glucose (04/17/2019 12:01 PM PDT) + + + + + + | Component | Value | Ref Range | Performed | Pathologist | | | | | At | Signature | + + + + + + | Glucose, | 118 (H)Comment: Testing | 65 - 99 mg/dL | EXTERNAL | | | Fingerstick | performed at [facility];[address] | | LAB | | | | [address];[place], [place] | | | | | | [address] | | | | + + + + + + + + | Specimen | + + | | + + + +---------+ + + | Performing | Address | City/State/Zipcode | Phone Number | | Organization | | | | + +---------+ + + | EXTERNAL LAB | | | | + +---------+ + + Sodium (04/17/2019 11:30 AM PDT) + + + + + + | Component | Value | Ref Range | Performed | Pathologist | | | | | At | Signature | + + + + + + | Na | 133 (L)Comment: Testing | 135 - 145 | EXTERNAL | | | | performed at [facility] [place] [facility];888 | mmol/L | LAB | | | | [address];[place], [place] | | | | | | [address] | | | | + + + + + + + + | Specimen | + + | Blood specimen | | (specimen) | + + + +---------+ + + | Performing | Address | City/State/Zipcode | Phone Number | | Organization | | | | + +---------+ + + | EXTERNAL LAB | | | | + +---------+ + + POC Glucose (04/17/2019 9:15 AM PDT) + + + + + + | Component | Value | Ref Range | Performed | Pathologist | | | | | At | Signature | + + + + + + | Glucose, | 136 (H)Comment: Testing | 65 - 99 mg/dL | EXTERNAL | | | Fingerstick | performed at [facility] [place];[address] | LAB | | [address];[place], [place] | | | | | | [address] | | | | + + + + + + + + | Specimen | + + | | + + + +---------+ + + | Performing | Address | City/State/Zipcode | Phone Number | | Organization | | | | + +---------+ + + | EXTERNAL LAB | | | | + +---------+ + + External Lab: CBC (04/17/2019 6:27 AM PDT) + + + + + + | Component | Value | Ref Range | Performed | Pathologist | | | | | At | Signature | + + + + + + | WBC | 30.43 ()Comment: | 3.80 - 11.00 | EXTERNAL | | | | RESULT READ BACK | K/uL | LAB | | | | BY:MAYE Rodas ON [id number] | | | | | | AT 0715 BY RACHEL. | | | | | | | | | | + + + + + + | RED CELL | 3.13 (L) | 3.70 - 5.10 | EXTERNAL | | | COUNT | | M/uL | LAB | | + + + + + + | Hgb | 8.6 (L) | 11.3 - 15.5 | EXTERNAL | | | | | g/dL | LAB | | + + + + + + | Hematocrit, | 26.9 (L) | 34.0 - 46.0 % | EXTERNAL | | | POC | | | LAB | | + + + + + + | MCV | 86.0 | 80.0 - 100.0 fl | EXTERNAL | | | | | | LAB | | + + + + + + | MCH | 27.6 | 27.0 - 34.0 pg | EXTERNAL | | | | | | LAB | | + + + + + + | MCHC | 32.1 | 32.0 - 35.5 | EXTERNAL | | | | | g/dL | LAB | | + + + + + + | RDW-CV | 50.8 | 37 - 53 fl | EXTERNAL | | | | | | LAB | | + + + + + + | Platelet | 264 | 150 - 400 K/uL | EXTERNAL | | | Count | | | LAB | | | Plasma | | | | | + + + + + + | MPV | 7.9 | fl | EXTERNAL | | | | | | LAB | | + + + + + + | Differentia | MANUAL | | EXTERNAL | | | l Type | | | LAB | | + + + + + + | Nucleated | 1 (H) | /100WBC | EXTERNAL | | | Red Blood | | | LAB | | | Cells | | | | | + + + + + + | Segmented | 70 | % | EXTERNAL | | | Neutrophils | | | LAB | | | Manual | | | | | + + + + + + | % Bands | 4 | % | EXTERNAL | | | | | | LAB | | + + + + + + | % | 4 | % | EXTERNAL | | | Metamyelocy | | | LAB | | | oliverio | | | | | + + + + + + | Lymphocytes | 14 | % | EXTERNAL | | | Manual | | | LAB | | + + + + + + | Monocytes | 7 | % | EXTERNAL | | | Manual | | | LAB | | + + + + + + | Eosinophils | 1 | % | EXTERNAL | | | Manual | | | LAB | | + + + + + + | Absolute | 21.30 (H) | 1.90 - 7.40 | EXTERNAL | | | Neutrophils | | K/uL | LAB | | + + + + + + | Bands | 1.22 (H) | 0.00 - 0.20 | EXTERNAL | | | Manual | | K/uL | LAB | | + + + + + + | Absolute | 1.22 (H) | K/uL | EXTERNAL | | | Metamyelocy | | | LAB | | | oliverio | | | | | + + + + + + | Absolute | 4.26 (H) | 1.00 - 3.90 | EXTERNAL | | | Lymphocytes | | K/uL | LAB | | + + + + + + | Absolute | 2.13 (H) | 0.00 - 0.80 | EXTERNAL | | | Monocytes | | K/uL | LAB | | + + + + + + | Absolute | 0.30 | 0.00 - 0.50 | EXTERNAL | | | Eosinophils | | K/uL | LAB | | + + + + + + | Platelet | ADEQUATE | | EXTERNAL | | | Estimate | | | LAB | | + + + + + + | RBC | 1+Comment: | | EXTERNAL | | | Morphology | ANISO1+POLYNORMAL PLT | | LAB | | | | MORPHTesting performed | | | | | | at [facility];[address];[place] [address] | | | | | |NORMAL PLT MORPH | | | | | |Testing performed at [facility];[address];[place] [address] | | | | | | | [...] + +---------+ + + Basic Metabolic Panel (04/17/2019 6:27 AM PDT) + + + + + + | Component | Value | Ref Range | Performed | Pathologist | | | | | At | Signature | + + + + + + | Na | 135 | 135 - 145 | EXTERNAL | | | | | mmol/L | LAB | | + + + + + + | K | 5.2 (H) | 3.5 - 4.9 | EXTERNAL | | | | | mmol/L | LAB | | + + + + + + | Cl | 109 | 99 - 109 mmol/L | EXTERNAL | | | | | | LAB | | + + + + + + | CO2 | 23 | 23 - 32 mmol/L | EXTERNAL | | | | | | LAB | | + + + + + + | Anion Gap | 8 | 5 - 20 mmol/L | EXTERNAL | | | | | | LAB | | + + + + + + | Glucose, | 102 (H) | 65 - 99 mg/dL | EXTERNAL | | | Fasting | | | LAB | | + + + + + + | BUN | 58 (H) | 8 - 25 mg/dL | EXTERNAL | | | | | | LAB | | + + + + + + | Creatinine | 1.95 (H) | 0.50 - 1.00 | EXTERNAL | | | | | mg/dL | LAB | | + + + + + + | BUN/Creatin | 30 | | EXTERNAL | | | ine Ratio | | | LAB | | + + + + + + | Calcium | 7.7 (L) | 8.5 - 10.5 | EXTERNAL | | | | | mg/dL | LAB | | + + + + + + | Estimated | 27 (L)Comment: GFR <60: | mL/min/1.73m2 | EXTERNAL [...] BY | | | | | | 1.210.This eGFR is | | | | | | calculated using the | | | | | | MDRD IDMS traceable | | | | | | equation.Testing | | | | | | performed at [facility] | | | | | | [facility];[place], [place] | | | | | | [address] | | | | + + + + + + + + | Specimen | + + | Blood specimen | | (specimen) | + + + +---------+ + + | Performing | Address | City/State/Zipcode | Phone Number | | Organization | | | | + +---------+ + + | EXTERNAL LAB | | | | + +---------+ + + POC Glucose (04/17/2019 5:23 AM PDT) + + + + + + | Component | Value | Ref Range | Performed | Pathologist | | | | | At | Signature | + + + + + + | Glucose, | 102 (H)Comment: Testing | 65 - 99 mg/dL | EXTERNAL | | | Fingerstick | performed at [facility];[address] | | [address] | | [address];[place], [place] | | | | | | [address] | | | | + + + + + + + + | Specimen | + + | | + + + +---------+ + + | Performing | Address | City/State/Zipcode | Phone Number | | Organization | | | | + +---------+ + + | EXTERNAL LAB | | | | + +---------+ + + Sodium (04/17/2019 2:35 AM PDT) + + + + + + | Component | Value | Ref Range | Performed | Pathologist | | | | | At | Signature | + + + + + + | Na | 135Comment: Testing | 135 - 145 | EXTERNAL | | | | performed at [facility];[address] | mmol/L | LAB | | | | [address];[place] | | | | | | [address] | | | | + + + + + + + + | Specimen | + + | Blood specimen | | (specimen) | + + + +---------+ + + | Performing | Address | City/State/Zipcode | Phone Number | | Organization | | | | + +---------+ + + | EXTERNAL LAB | | | | + +---------+ + + POC Glucose (04/16/2019 9:09 PM PDT) + + + + + + | Component | Value | Ref Range | Performed | Pathologist | | | | | At | Signature | + + + + + + | Glucose, | 136 (H)Comment: Testing | 65 - 99 mg/dL | EXTERNAL | | | Fingerstick | performed at [facility] | | LAB | | | | [address];[place], [place] | | | | | | [address] | | | | + + + + + + + + | Specimen | + + | | + + + +---------+ + + | Performing | Address | City/State/Zipcode | Phone Number | | Organization | | | | + +---------+ + + | EXTERNAL LAB | | | | + +---------+ + + Sodium (04/16/2019 8:27 PM PDT) + + + + + + | Component | Value | Ref Range | Performed | Pathologist | | | | | At | Signature | + + + + + + | Na | 135Comment: Testing | 135 - 145 | EXTERNAL | | | | performed at [facility];[address] | mmol/L | LAB | | | | [address];[place], [place] | | | | | | [address] | | | | + + + + + + + + | Specimen | + + | Blood specimen | | (specimen) | + + + +---------+ + + | Performing | Address | City/State/Zipcode | Phone Number | | Organization | | | | + +---------+ + + | EXTERNAL LAB | | | | + +---------+ + + POC Glucose (04/16/2019 3:18 PM PDT) + + + + + + | Component | Value | Ref Range | Performed | Pathologist | | | | | At | Signature | + + + + + + | Glucose, | 177 (H)Comment: Testing | 65 - 99 mg/dL | EXTERNAL | | | Fingerstick | performed at [facility];[address] | | LAB | | [address];[place], [place] | | | | | | [address] | | | | + + + + + + + + | Specimen | + + | | + + + +---------+ + + | Performing | Address | City/State/Zipcode | Phone Number | | Organization | | | | + +---------+ + + | EXTERNAL LAB | | | | + +---------+ + + Hepatitis B DNA, NAAT, Quant (04/16/2019 2:58 PM PDT) + + + + + + | Component | Value | Ref Range | Performed | Pathologist | | | | | At | Signature | + + + + + + | HBV IU/mL | UPTCALComment: Unable | LOG10 IU/ML | EXTERNAL | | | | to calculate result | | LAB | | | | since non-numeric result | | | | | | obtained forcomponent | | | | | | test. | | | | | | | | | | + + + + + + | HBV IU/mL | HBV DNA not detected | IU/mL | EXTERNAL | | | | | | LAB | | + + + + + + | Comment | (See Below)Comment: The | | EXTERNAL | | | | reportable range for | | LAB | | | | this assay is 10 IU/mL | | | | | | to 1 billion | | | | | | IU/mL.Testing performed | | | | | | by [facility], [address] [place] [address] | | | | | | [facility] | | | | | | [address] | | | | + + + + + + + + | Specimen | + + | | + + + +---------+ + + | Performing | Address | City/State/Zipcode | Phone Number | | Organization | | | | + +---------+ + + | EXTERNAL LAB | | | | + +---------+ + + Hepatitis Panel, Chronic (04/16/2019 2:58 PM PDT) + + + + + + | Component | Value | Ref Range | Performed | Pathologist | | | | | At | Signature | + + + + + + | Hep A Total | REACTIVE (A) | | EXTERNAL | | | Ab Interp | | | LAB | | + + + + + + | HEP B | NON REACTIVE | | EXTERNAL | | | SURFACE | | | LAB | | | ANTIBODY | | | | | + + + + + + | Hepatitis B | NON REACTIVE | | EXTERNAL | | | Core Ab | | | LAB | | | Total | | | | | + + + + + + | HEP B | <0.35Comment: <1.00 | IV | EXTERNAL | | | SURFACE | Non Immune1.00 | | LAB | | | ANTIBODY | OR MORE Indicates | | | | | | vaccine response or | | | | | | response to HBV | | | | | | infection. An Index | | | | | | Value (IV) of 1.00 is | | | | | | equivalent to 10 mIU/mL. | | | | | | Samples with an IV of | | | | | | 1.00 or greater are | | | | | | considered reactive | | | | | | (protected) in | | | | | | accordance with CDC | | | | | | Guidelines. | | | | + + + + + + | HCV Ab | REACTIVE (A)Comment: | | EXTERNAL | | | | THIS IS A REPORTABLE | | LAB | | | | DISEASE. PLEASE CONTACT | | | | | | YOUR COUNTY/STATE | | | | | | HEALTH DEPARTMENT. | | | | + + + + + + | Hepatitis | Current or past HAV | | EXTERNAL | | | Interpretat | infection and current or | | LAB | | | ion | past HCV infection. No | | | | | | serologic evidence of | | | | | | HBV infection or | | | | | | vaccination.Comment: | | | | | | Testing performed at | | | | | | [facility], [address] | | | | | | [place] | | | | | | [address] | | | | + + + + + + + + | Specimen | + + | | + + + +---------+ + + | Performing | Address | City/State/Zipcode | Phone Number | | Organization | | | | + +---------+ + + | EXTERNAL LAB | | | | + +---------+ + + Hepatitis C RNA, quantitative, PCR (04/16/2019 2:58 PM PDT) + + + + + + | Component | Value | Ref Range | Performed | Pathologist | | | | | At | Signature | + + + + + + | HCV | HCV Not Detected | IU/mL | EXTERNAL | | | Quantitativ | | | LAB | | | e | | | | | + + + + + + | TEST | (See Below)Comment: The | | EXTERNAL | | | INFORMATION | quantitative range of | | LAB | | | | this assay is 15 IU/mL | | | | | | to 100 | | | | | | millionIU/mL.Testing | | | | | | performed by [facility], | | | | | | [address], | | | | | | [facility] [address] | | | | + + + + + + + + | Specimen | + + | Blood specimen | | (specimen) | + + + +---------+ + + | Performing | Address | City/State/Zipcode | Phone Number | | Organization | | | | + +---------+ + + | EXTERNAL LAB | | | | + +---------+ + + Sodium (04/16/2019 2:34 PM PDT) + + + + + + | Component | Value | Ref Range | Performed | Pathologist | | | | | At | Signature | + + + + + + | Na | 135Comment: Testing | 135 - 145 | EXTERNAL | | | | performed at [facility];[address] | mmol/L | LAB | | | | [address];[place] | | | | | | [address] | | | | + + + + + + + + | Specimen | + + | Blood specimen | | (specimen) | + + + +---------+ + + | Performing | Address | City/State/Zipcode | Phone Number | | Organization | | | | + +---------+ + + | EXTERNAL LAB | | | | + +---------+ + + POC Glucose (04/16/2019 12:02 PM PDT) + + + + + + | Component | Value | Ref Range | Performed | Pathologist | | | | | At | Signature | + + + + + + | Glucose, | 135 (H)Comment: Testing | 65 - 99 mg/dL | EXTERNAL | | | Fingerstick | performed at [facility];[address] | | LAB | | | | [address];[place], [place] | | | | | | [address] | | | | + + + + + + + + | Specimen | + + | | + + + +---------+ + + | Performing | Address | City/State/Zipcode | Phone Number | | Organization | | | | + +---------+ + + | EXTERNAL LAB | | | | + +---------+ + + External Lab: CBC (04/16/2019 7:45 AM PDT) + + + + + + | Component | Value | Ref Range | Performed | Pathologist | | | | | At | Signature | + + + + + + | WBC | 34.19 ()Comment: | 3.80 - 11.00 | EXTERNAL | | | | RESULT READ BACK BY: | K/uL | LAB | | | | MAYE [place] 7RP RN @0823 BY | | | | | | BHREAD BACK RESULTS | | | | | | VERIFIED | | | | | | | | | | + + + + + + | RED CELL | 3.07 (L) | 3.70 - 5.10 | EXTERNAL | | | COUNT | | M/uL | LAB | | + + + + + + | Hgb | 8.4 (L) | 11.3 - 15.5 | EXTERNAL | | | | | g/dL | LAB | | + + + + + + | Hematocrit, | 26.2 (L) | 34.0 - 46.0 % | EXTERNAL | | | POC | | | LAB | | + + + + + + | MCV | 85.4 | 80.0 - 100.0 fl | EXTERNAL | | | | | | LAB | | + + + + + + | MCH | 27.2 | 27.0 - 34.0 pg | EXTERNAL | | | | | | LAB | | + + + + + + | MCHC | 31.8 (L) | 32.0 - 35.5 | EXTERNAL | | | | | g/dL | LAB | | + + + + + + | RDW-CV | 51.2 | 37 - 53 fl | EXTERNAL | | | | | | LAB | | + + + + + + | Platelet | 268 | 150 - 400 K/uL | EXTERNAL | | | Count | | | LAB | | | Plasma | | | | | + + + + + + | MPV | 7.7 | fl | EXTERNAL | | | | | | LAB | | + + + + + + | Differentia | MANUAL | | EXTERNAL | | | l Type | | | LAB | | + + + + + + | Nucleated | 1 (H) | /100WBC | EXTERNAL | | | Red Blood | | | LAB | | | Cells | | | | | + + + + + + | Segmented | 74 | % | EXTERNAL | | | Neutrophils | | | LAB | | | Manual | | | | | + + + + + + | % Bands | 6 | % | EXTERNAL | | | | | | LAB | | + + + + + + | % | 4 | % | EXTERNAL | | | Metamyelocy | | | LAB | | | oliverio | | | | | + + + + + + | % | 5 | % | EXTERNAL | | | Myelocytes | | | LAB | | + + + + + + | Lymphocytes | 11 | % | EXTERNAL | | | Manual | | | LAB | | + + + + + + | Absolute | 25.30 (H) | 1.90 - 7.40 | EXTERNAL | | | Neutrophils | | K/uL | LAB | | + + + + + + | Bands | 2.05 (H) | 0.00 - 0.20 | EXTERNAL | | | Manual | | K/uL | LAB | | + + + + + + | Absolute | 1.37 (H) | K/uL | EXTERNAL | | | Metamyelocy | | | LAB | | | oliverio | | | | | + + + + + + | Absolute | 1.71 (H) | K/uL | EXTERNAL | | | Myelocytes | | | LAB | | + + + + + + | Absolute | 3.76 | 1.00 - 3.90 | EXTERNAL | | | Lymphocytes | | K/uL | LAB | | + + + + + + | Platelet | ADEQUATE | | EXTERNAL | | | Estimate | | | LAB | | + + + + + + | RBC | NORMALComment: Testing | | EXTERNAL | | | Morphology | performed at [facility];[address] | | LAB | | | | [address];[place] | | | | | | [address] | | | | + + + + + + + + | Specimen | + + | Blood specimen | | (specimen) | + + + +---------+ + + | Performing | Address | City/State/Zipcode | Phone Number | | Organization | | | | + +---------+ + + | EXTERNAL LAB | | | | + +---------+ + + Vancomycin Level (04/16/2019 7:45 AM PDT) + + + + + + | Component | Value | Ref Range | Performed | Pathologist | | | | | At | Signature | + + + + + + | Vancomycin | 15.9Comment: Testing | ug/mL | EXTERNAL | | | Random | performed at [facility];[address] | | LAB | | | | [address] [facility];[place], [place] | | | | | | [address] | | | | + + + [...] + +---------+ + + Basic Metabolic Panel (04/16/2019 7:45 AM PDT) + + + + + + | Component | Value | Ref Range | Performed | Pathologist | | | | | At | Signature | + + + + + + | Na | 135 | 135 - 145 | EXTERNAL | | | | | mmol/L | LAB | | + + + + + + | K | 4.7 | 3.5 - 4.9 | EXTERNAL | | | | | mmol/L | LAB | | + + + + + + | Cl | 107 | 99 - 109 mmol/L | EXTERNAL | | | | | | LAB | | + + + + + + | CO2 | 23 | 23 - 32 mmol/L | EXTERNAL | | | | | | LAB | | + + + + + + | Anion Gap | 10 | 5 - 20 mmol/L | EXTERNAL | | | | | | LAB | | + + + + + + | Glucose, | 173 (H) | 65 - 99 mg/dL | EXTERNAL | | | Fasting | | | LAB | | + + + + + + | BUN | 63 (H) | 8 - 25 mg/dL | EXTERNAL | | | | | | LAB | | + + + + + + | Creatinine | 2.42 (H) | 0.50 - 1.00 | EXTERNAL | | | | | mg/dL | LAB | | + + + + + + | BUN/Creatin | 26 | | EXTERNAL | | | ine Ratio | | | LAB | | + + + + + + | Calcium | 7.1 (L) | 8.5 - 10.5 | EXTERNAL | | | | | mg/dL | LAB | | + + + + + + | Estimated | 21 (L)Comment: GFR <60: | mL/min/1.73m2 | EXTERNAL [...] BY | | | | | | 1.210.This eGFR is | | | | | | calculated using the | | | | | | MDRD IDMS traceable | | | | | | equation.Testing | | | | | | performed at [facility];[address] | | | | | | [facility];[place], [place] | | | | | | [address] | | | | + + + + + + + + | Specimen | + + | Blood specimen | | (specimen) | + + + +---------+ + + | Performing | Address | City/State/Zipcode | Phone Number | | Organization | | | | + +---------+ + + | EXTERNAL LAB | | | | + +---------+ + + POC Glucose (04/16/2019 5:42 AM PDT) + + + + + + | Component | Value | Ref Range | Performed | Pathologist | | | | | At | Signature | + + + + + + | Glucose, | 208 (H)Comment: Testing | 65 - 99 mg/dL | EXTERNAL | | | Fingerstick | performed at [facility];[address] | | LAB | | | | [address];[place] | | | | | | [address] | | | | + + + + + + + + | Specimen | + + | | + + + +---------+ + + | Performing | Address | City/State/Zipcode | Phone Number | | Organization | | | | + +---------+ + + | EXTERNAL LAB | | | | + +---------+ + + Sodium (04/16/2019 2:49 AM PDT) + + + + + + | Component | Value | Ref Range | Performed | Pathologist | | | | | At | Signature | + + + + + + | Na | 133 (L)Comment: Testing | 135 - 145 | EXTERNAL | | | | performed at [facility];[address] | mmol/L | LAB | | | | [address];[place], [place] | | | | | | [address] | | | | + + + + + + + + | Specimen | + + | Blood specimen | | (specimen) | + + + +---------+ + + | Performing | Address | City/State/Zipcode | Phone Number | | Organization | | | | + +---------+ + + | EXTERNAL LAB | | | | + +---------+ + + POC Glucose (04/15/2019 9:07 PM PDT) + + + + + + | Component | Value | Ref Range | Performed | Pathologist | | | | | At | Signature | + + + + + + | Glucose, | 284 (H)Comment: Testing | 65 - 99 mg/dL | EXTERNAL | | | Fingerstick | performed at [facility];[address] | | LAB | | | | [address];[place], [place] | | | | | | [address] | | | | + + + + + + + + | Specimen | + + | | + + + +---------+ + + | Performing | Address | City/State/Zipcode | Phone Number | | Organization | | | | + +---------+ + + | EXTERNAL LAB | | | | + +---------+ + + Sodium (04/15/2019 8:25 PM PDT) + + + + + + | Component | Value | Ref Range | Performed | Pathologist | | | | | At | Signature | + + + + + + | Na | 133 (L)Comment: Testing | 135 - 145 | EXTERNAL | | | | performed at [facility];[address] | mmol/L | LAB | | | | [address];[place], [place] | | | | | | [address] | | | | + + + + + + + + | Specimen | + + | Blood specimen | | (specimen) | + + + +---------+ + + | Performing | Address | City/State/Zipcode | Phone Number | | Organization | | | | + +---------+ + + | EXTERNAL LAB | | | | + +---------+ + + POC Glucose (04/15/2019 1:03 PM PDT) + + + + + + | Component | Value | Ref Range | Performed | Pathologist | | | | | At | Signature | + + + + + + | Glucose, | 169 (H)Comment: Testing | 65 - 99 mg/dL | EXTERNAL | | | Fingerstick | performed at [facility];[address] | | LAB | | | | [address];[place], [place] | | | | | | [address] | | | | + + + + + + + + | Specimen | + + | | + + + +---------+ + + | Performing | Address | City/State/Zipcode | Phone Number | | Organization | | | | + +---------+ + + | EXTERNAL LAB | | | | + +---------+ + + Culture, Blood (04/15/2019 12:58 PM PDT) + + | Specimen | + + | Blood specimen | | (specimen) | + + + + + | Narrative | Performed At | + + + | Specimen Description BLOOD, LINE DRAW SPECIAL | EXTERNAL LAB | | REQUESTS ART LINE HAND CULTURE | | | NO GROWTH 6 DAYS | | + + + + +---------+ + + | Performing | Address | City/State/Zipcode | Phone Number | | Organization | | | | + +---------+ + + | EXTERNAL LAB | | | | + +---------+ + + Culture, Blood, 2nd Specimen (04/15/2019 12:55 PM PDT) + + | Specimen | + + | Blood specimen | | (specimen) | + + + + + | Narrative | Performed At | + + + | Specimen Description BLOOD, LINE DRAW SPECIAL | EXTERNAL LAB | | REQUESTS art line CULTURE | | | NO GROWTH 6 DAYS | | + + + + +---------+ + + | Performing | Address | City/State/Zipcode | Phone Number | | Organization | | | | + +---------+ + + | EXTERNAL LAB | | | | + +---------+ + + POC Glucose (04/15/2019 11:30 AM PDT) + + + + + + | Component | Value | Ref Range | Performed | Pathologist | | | | | At | Signature | + + + + + + | Glucose, | 153 (H)Comment: Testing | 65 - 99 mg/dL | EXTERNAL | | | Fingerstick | performed at [facility];[address] | | LAB | | | | [address];[place], [place] | | | | | | [address] | | | | + + + + + + + + | Specimen | + + | | + + + +---------+ + + | Performing | Address | City/State/Zipcode | Phone Number | | Organization | | | | + +---------+ + + | EXTERNAL LAB | | | | + +---------+ + + Sodium (04/15/2019 11:30 AM PDT) + + + + + + | Component | Value | Ref Range | Performed | Pathologist | | | | | At | Signature | + + + + + + | Na | 133 (L)Comment: Testing | 135 - 145 | EXTERNAL | | | | performed at [facility];[address] | mmol/L | LAB | | | | [address];[place] | | | | | | [address] | | | | + + + + + + + + | Specimen | + + | Blood specimen | | (specimen) | + + + +---------+ + + | Performing | Address | City/State/Zipcode | Phone Number | | Organization | | | | + +---------+ + + | EXTERNAL LAB | | | | + +---------+ + + POC Glucose (04/15/2019 8:56 AM PDT) + + + + + + | Component | Value | Ref Range | Performed | Pathologist | | | | | At | Signature | + + + + + + | Glucose, | 127 (H)Comment: Testing | 65 - 99 mg/dL | EXTERNAL | | | Fingerstick | performed at [facility];[address] | | LAB | | | | [address];[place], [place] | | | | | | [address] | | | | + + + + + + + + | Specimen | + + | | + + + +---------+ + + | Performing | Address | City/State/Zipcode | Phone Number | | Organization | | | | + +---------+ + + | EXTERNAL LAB | | | | + +---------+ + + POC Glucose (04/15/2019 6:24 AM PDT) + + + + + + | Component | Value | Ref Range | Performed | Pathologist | | | | | At | Signature | + + + + + + | Glucose, | 121 (H)Comment: Testing | 65 - 99 mg/dL | EXTERNAL | | | Fingerstick | performed at [facility];[address] | | LAB | | | | [address];[place] | | | | | | [address] | | | | + + + + + + + + | Specimen | + + | | + + + +---------+ + + | Performing | Address | City/State/Zipcode | Phone Number | | Organization | | | | + +---------+ + + | EXTERNAL LAB | | | | + +---------+ + + POC Glucose (04/15/2019 4:19 AM PDT) + + + + + + | Component | Value | Ref Range | Performed | Pathologist | | | | | At | Signature | + + + + + + | Glucose, | 110 (H)Comment: Testing | 65 - 99 mg/dL | EXTERNAL | | | Fingerstick | performed at [facility];[address] | | LAB | | | | [address];[place], [place] | | | | | | [address] | | | | + + + + + + + + | Specimen | + + | | + + + +---------+ + + | Performing | Address | City/State/Zipcode | Phone Number | | Organization | | | | + +---------+ + + | EXTERNAL LAB | | | | + +---------+ + + POC Glucose (04/15/2019 4:17 AM PDT) + + + + + + | Component | Value | Ref Range | Performed | Pathologist | | | | | At | Signature | + + + + + + | Glucose, | 57 (L)Comment: Testing | 65 - 99 mg/dL | EXTERNAL | | | Fingerstick | performed at [facility];[address] | | LAB | | | | [address];[place] | | | | | | [address] | | | | + + + + + + + + | Specimen | + + | | + + + +---------+ + + | Performing | Address | City/State/Zipcode | Phone Number | | Organization | | | | + +---------+ + + | EXTERNAL LAB | | | | + +---------+ + + POC Glucose (04/15/2019 2:13 AM PDT) + + + + + + | Component | Value | Ref Range | Performed | Pathologist | | | | | At | Signature | + + + + + + | Glucose, | 134 (H)Comment: Testing | 65 - 99 mg/dL | EXTERNAL | | | Fingerstick | performed at [facility] [place];[address] | | LAB | | | | [address]ox[address]abria;[place], [place] | | | | | | [address] | | | | + + + + + + + + | Specimen | + + | | + + + +---------+ + + | Performing | Address | City/State/Zipcode | Phone Number | | Organization | | | | + +---------+ + + | EXTERNAL LAB | | | | + +---------+ + + External Lab: [facility] (04/15/2019 2:08 AM PDT) + + +---- + + + | Component | Value | Ref Range | Performed | Pathologist | | | | | At | Signature | + + +---- + + + | WBC | 54.49 ()Comment: | 3.8 0 - 11.00 | EXTERNAL | | | | RESULT READ BACK | K/u L | LAB | | | | BY:SONDRA Petty 10RP AT 0425 | | | | | | [phone] SM | | | | | | | | | | + + +---- + + + | RED CELL | 3.32 (L) | 3.7 0 - 5.10 | EXTERNAL | | | COUNT | | M/u L | LAB | | + + +---- + + + | Hgb | 9.5 (L) | 11. 3 - 15.5 | EXTERNAL | | | | | g/d L | LAB | | + + +---- + + + | Hematocrit, | 28.9 (L) | 34. 0 - 46.0 % | EXTERNAL | | | POC | | | LAB | | + + +---- + + + | MCV | 87.0 | 80. 0 - 100.0 fl | EXTERNAL | | | | | | LAB | | + + +---- + + + | MCH | 28.5 | 27. 0 - 34.0 pg | EXTERNAL | | | | | | LAB | | + + +---- + + + | MCHC | 32.8 | 32. 0 - 35.5 | EXTERNAL | | | | | g/d L | LAB | | + + +---- + + + | RDW-CV | 51.2 | 37 - 53 fl | EXTERNAL | | | | | | LAB | | + + +---- + + + | Platelet | 330 | 150 - 400 K/uL | EXTERNAL | | | Count | | | LAB | | | Plasma | | | | | + + +---- + + + | MPV | 8.2 | fl | EXTERNAL | | | | | | LAB | | + + +---- + + + | Differentia | MANUAL | | EXTERNAL | | | l Type | | | LAB | | + + +---- + + + | Nucleated | 1 (H) | /10 0WBC | EXTERNAL | | | Red Blood | | | LAB | | | Cells | | | | | + + +---- + + + | Segmented | 65 | % | EXTERNAL | | | Neutrophils | | | LAB | | | Manual | | | | | + + +---- + + + | % Bands | 11 | % | EXTERNAL | | | | | | LAB | | + + +---- + + + | % | 9 | % | EXTERNAL | | | Metamyelocy | | | LAB | | | oliverio | | | | | + + +---- + + + | % | 3 | % | EXTERNAL | | | Myelocytes | | | LAB | | + + +---- + + + | % | 2 | % | EXTERNAL | | | Promyelocyt | | | LAB | | | es | | | | | + + +---- + + + | Lymphocytes | 8 | % | EXTERNAL | | | Manual | | | LAB | | + + +---- + + + | Monocytes | 1 | % | EXTERNAL | | | Manual | | | LAB | | + + +---- + + + | Eosinophils | 1 | % | EXTERNAL | | | Manual | | | LAB | | + + +---- + + + | Absolute | 35.44 (H) | 1.9 0 - 7.40 | EXTERNAL | | | Neutrophils | | K/u L | LAB | | + + +---- + + + | Bands | 5.99 (H) | 0.0 0 - 0.20 | EXTERNAL | | | Manual | | K/u L | LAB | | + + +---- + + + | Absolute | 4.90 (H) | K/u L | EXTERNAL | | | Metamyelocy | | | LAB | | | oliverio | | | | | + + +---- + + + | Absolute | 1.63 (H) | K/u L | EXTERNAL | | | Myelocytes | | | LAB | | + + +---- + + + | Absolute | 1.09 (H) | K/u L | EXTERNAL | | | Promyelocyt | | | LAB | | | es | | | | | + + +---- + + + | Absolute | 4.36 (H) | 1.0 0 - 3.90 | EXTERNAL | | | Lymphocytes | | K/u L | LAB | | + + +---- + + + | Absolute | 0.54 | 0.0 0 - 0.80 | EXTERNAL | | | Monocytes | | K/u L | LAB | | + + +---- + + + | Absolute | 0.54 (H) | 0.0 0 - 0.50 | EXTERNAL | | | Eosinophils | | K/u L | LAB | | + + +---- + + + | RBC | 1+Comment: | | EXTERNAL | | | Morphology | ANISO1+POLYNORMAL PLT | | LAB | | | | MORPHTesting performed | | | | | | at [facility], [address] | | | | | | [facility], | | | | | | [place] [address] | | | | | |Testing performed at [facility], [address] [place] [address] | | | | | | | [...] | | + +---------+ + + Phosphorus (04/15/2019 2:08 AM PDT) + + + + + + | Component | Value | Ref Range | Performed | Pathologist | | | | | At | Signature | + + + + + + | PHOSPHORUS | 4.8Comment: Testing | 2.3 - 4.8 mg/dL | EXTERNAL | | | | performed at [facility];[address] | | LAB | | | | [address];[place], [place] | | | | | | [address] | | | | + + + + + + + + | Specimen | + + | Blood specimen | | (specimen) | + + + +---------+ + + | Performing | Address | City/State/Zipcode | Phone Number | | Organization | | | | + +---------+ + + | EXTERNAL LAB | | | | + +---------+ + + Magnesium (04/15/2019 2:08 AM PDT) + + + + + + | Component | Value | Ref Range | Performed | Pathologist | | | | | At | Signature | + + + + + + | Magnesium | 2.2Comment: Testing | 1.7 - 2.4 mg/dL | EXTERNAL | | | | performed at [facility] | | LAB | | | | [address];[place] | | | | | | [address] | | | | + + + + + + + + | Specimen | + + | Blood specimen | | (specimen) | + + + +---------+ + + | Performing | Address | City/State/Zipcode | Phone Number | | Organization | | | | + +---------+ + + | EXTERNAL LAB | | | | + +---------+ + + Vancomycin Level (04/15/2019 2:08 AM PDT) + + + + + + | Component | Value | Ref Range | Performed | Pathologist | | | | | At | Signature | + + + + + + | Vancomycin | 25.6Comment: Testing | ug/mL | EXTERNAL | | | Random | performed at [facility] | | LAB | | | | [address];[place], [place] | | | | | | [address] | | | | + + + [...] + +---------+ + + Basic Metabolic Panel (04/15/2019 2:08 AM PDT) + + + + + + | Component | Value | Ref Range | Performed | Pathologist | | | | | At | Signature | + + + + + + | Na | 132 (L) | 135 - 145 | EXTERNAL | | | | | mmol/L | LAB | | + + + + + + | K | 4.7 | 3.5 - 4.9 | EXTERNAL | | | | | mmol/L | LAB | | + + + + + + | Cl | 102 | 99 - 109 mmol/L | EXTERNAL | | | | | | LAB | | + + + + + + | CO2 | 21 (L) | 23 - 32 mmol/L | EXTERNAL | | | | | | LAB | | + + + + + + | Anion Gap | 14 | 5 - 20 mmol/L | EXTERNAL | | | | | | LAB | | + + + + + + | Glucose, | 133 (H) | 65 - 99 mg/dL | EXTERNAL | | | Fasting | | | LAB | | + + + + + + | BUN | 75 (H) | 8 - 25 mg/dL | EXTERNAL | | | | | | LAB | | + + + + + + | Creatinine | 2.77 (H) | 0.50 - 1.00 | EXTERNAL | | | | | mg/dL | LAB | | + + + + + + | BUN/Creatin | 27 | | EXTERNAL | | | ine Ratio | | | LAB | | + + + + + + | Calcium | 7.7 (L) | 8.5 - 10.5 | EXTERNAL | | | | | mg/dL | LAB | | + + + + + + | Estimated | 18 (L)Comment: GFR <60: | mL/min/1.73m2 | EXTERNAL [...] BY | | | | | | 1.210.This eGFR is | | | | | | calculated using the | | | | | | MDRD IDMS traceable | | | | | | equation.Testing | | | | | | performed at [facility];[address] | | | | | | [facility];[place], [place] | | | | | | [address] | | | | + + + + + + + + | Specimen | + + | Blood specimen | | (specimen) | + + + +---------+ + + | Performing | Address | City/State/Zipcode | Phone Number | | Organization | | | | + +---------+ + + | EXTERNAL LAB | | | | + +---------+ + + POC Glucose (04/15/2019 12:09 AM PDT) + + + + + + | Component | Value | Ref Range | Performed | Pathologist | | | | | At | Signature | + + + + + + | Glucose, | 113 (H)Comment: Testing | 65 - 99 mg/dL | EXTERNAL | | | Fingerstick | performed at [facility];[address] | | LAB | | | | [address];[place] | | | | | | [address] | | | | + + + + + + + + | Specimen | + + | | + + + +---------+ + + | Performing | Address | City/State/Zipcode | Phone Number | | Organization | | | | + +---------+ + + | EXTERNAL LAB | | | | + +---------+ + + POC Glucose (04/14/2019 10:06 PM PDT) + + + + + + | Component | Value | Ref Range | Performed | Pathologist | | | | | At | Signature | + + + + + + | Glucose, | 124 (H)Comment: Testing | 65 - 99 mg/dL | EXTERNAL | | | Fingerstick | performed at [facility];[address] | | LAB | | | | [address];[place] | | | | | | [address] | | | | + + + + + + + + | Specimen | + + | | + + + +---------+ + + | Performing | Address | City/State/Zipcode | Phone Number | | Organization | | | | + +---------+ + + | EXTERNAL LAB | | | | + +---------+ + + POC Glucose (04/14/2019 8:11 PM PDT) + + + + + + | Component | Value | Ref Range | Performed | Pathologist | | | | | At | Signature | + + + + + + | Glucose, | 119 (H)Comment: Testing | 65 - 99 mg/dL | EXTERNAL | | | Fingerstick | performed at [facility];[address] | | LAB | | | [address];[place], [place] | | | | | | [address] | | | | + + + + + + + + | Specimen | + + | | + + + +---------+ + + | Performing | Address | City/State/Zipcode | Phone Number | | Organization | | | | + +---------+ + + | EXTERNAL LAB | | | | + +---------+ + + Sodium (04/14/2019 7:44 PM PDT) + + + + + + | Component | Value | Ref Range | Performed | Pathologist | | | | | At | Signature | + + + + + + | Na | 131 (L)Comment: Testing | 135 - 145 | EXTERNAL | | | | performed at [facility];[address] | mmol/L | LAB | | | | [address];[place] | | | | | | [address] | | | | + + + + + + + + | Specimen | + + | Blood specimen | | (specimen) | + + + +---------+ + + | Performing | Address | City/State/Zipcode | Phone Number | | Organization | | | | + +---------+ + + | EXTERNAL LAB | | | | + +---------+ + + POC Glucose (04/14/2019 6:03 PM PDT) + + + + + + | Component | Value | Ref Range | Performed | Pathologist | | | | | At | Signature | + + + + + + | Glucose, | 133 (H)Comment: Testing | 65 - 99 mg/dL | EXTERNAL | | | Fingerstick | performed at [facility];[address] | | LAB | | | | [address];[place] | | | | | | [address] | | | | + + + + + + + + | Specimen | + + | | + + + +---------+ + + | Performing | Address | City/State/Zipcode | Phone Number | | Organization | | | | + +---------+ + + | EXTERNAL LAB | | | | + +---------+ + + POC Glucose (04/14/2019 3:37 PM PDT) + + + + + + | Component | Value | Ref Range | Performed | Pathologist | | | | | At | Signature | + + + + + + | Glucose, | 128 (H)Comment: Testing | 65 - 99 mg/dL | EXTERNAL | | | Fingerstick | performed at [facility] | | LAB | | | | [address];[place] | | | | | | [address] | | | | + + + + + + + + | Specimen | + + | | + + + +---------+ + + | Performing | Address | City/State/Zipcode | Phone Number | | Organization | | | | + +---------+ + + | EXTERNAL LAB | | | | + +---------+ + + Hemoglobin and Hematocrit (04/14/2019 3:25 PM PDT) + + + + + + | Component | Value | Ref Range | Performed | Pathologist | | | | | At | Signature | + + + + + + | Hgb | 9.5 (L) | 11.3 - 15.5 | EXTERNAL | | | | | g/dL | LAB | | + + + + + + | Hematocrit, | 29.9 (L)Comment: Testing | 34.0 - 46.0 % | EXTERNAL | | | POC | performed at [facility];[address] | | LAB | | | | [address];[place] | | | | | | [address] | | | | + + + + + + + + | Specimen | + + | Blood specimen | | (specimen) | + + + +---------+ + + | Performing | Address | City/State/Zipcode | Phone Number | | Organization | | | | + +---------+ + + | EXTERNAL LAB | | | | + +---------+ + + Sodium (04/14/2019 3:25 PM PDT) + + + + + + | Component | Value | Ref Range | Performed | Pathologist | | | | | At | Signature | + + + + + + | Na | 130 (L)Comment: Testing | 135 - 145 | EXTERNAL | | | | performed at [facility];[address] | mmol/L | LAB | | | | [address];[place], [place] | | | | | | [address] | | | | + + + + + + + + | Specimen | + + | Blood specimen | | (specimen) | + + + +---------+ + + | Performing | Address | City/State/Zipcode | Phone Number | | Organization | | | | + +---------+ + + | EXTERNAL LAB | | | | + +---------+ + + Potassium (04/14/2019 3:25 PM PDT) + + + + + + | Component | Value | Ref Range | Performed | Pathologist | | | | | At | Signature | + + + + + + | K | 4.9Comment: Testing | 3.5 - 4.9 | EXTERNAL | | | | performed at [facility];[address] | mmol/L | LAB | | | | [address];[place] | | | | | | [address] | | | | + + + + + + + + | Specimen | + + | Blood specimen | | (specimen) | + + + +---------+ + + | Performing | Address | City/State/Zipcode | Phone Number | | Organization | | | | + +---------+ + + | EXTERNAL LAB | | | | + +---------+ + + Phosphorus (04/14/2019 3:25 PM PDT) + + + + + + | Component | Value | Ref Range | Performed | Pathologist | | | | | At | Signature | + + + + + + | PHOSPHORUS | 5.2 (H)Comment: Testing | 2.3 - 4.8 mg/dL | EXTERNAL | | | | performed at [facility];[address] | | LAB | | | | [address];[place], [place] | | | | | | [address] | | | | + + + + + + + + | Specimen | + + | Blood specimen | | (specimen) | + + + +---------+ + + | Performing | Address | City/State/Zipcode | Phone Number | | Organization | | | | + +---------+ + + | EXTERNAL LAB | | | | + +---------+ + + Magnesium (04/14/2019 3:25 PM PDT) + + + + + + | Component | Value | Ref Range | Performed | Pathologist | | | | | At | Signature | + + + + + + | Magnesium | 2.1Comment: Testing | 1.7 - 2.4 mg/dL | EXTERNAL | | | | performed at [facility];[address] | | LAB | | | | [address];[place] | | | | | | [address] | | | | + + + + + + + + | Specimen | + + | | + + + +---------+ + + | Performing | Address | City/State/Zipcode | Phone Number | | Organization | | | | + +---------+ + + | EXTERNAL LAB | | | | + +---------+ + + Calcium, Ionized (04/14/2019 3:25 PM PDT) + + + + + + | Component | Value | Ref Range | Performed | Pathologist | | | | | At | Signature | + + + + + + | Calcium | 1.08 | 1.08 - 1.25 | EXTERNAL | | | (Calc) | | mmol/L | LAB | | + + + + + + | pH, Bld | 7.372Comment: Testing | 7.300 - 7.450 | EXTERNAL | | | | performed at [facility];[address] | | LAB | | | | [address];[place], [place] | | | | | | [address] | | | | + + + + + + + + | Specimen | + + | Blood specimen | | (specimen) | + + + +---------+ + + | Performing | Address | City/State/Zipcode | Phone Number | | Organization | | | | + +---------+ + + | EXTERNAL LAB | | | | + +---------+ + + Tissue Request For Pathology (04/14/2019 1:49 PM PDT) + + | Specimen | + + | Soft tissue sample | | (specimen) | + + + + + | Narrative | Performed At | + + + | SPECIMEN(S): A RIGHT ABOVE KNEE AMPUTATION SPECIMEN SOURCE: A. | EXTERNAL LAB | | RIGHT ABOVE KNEE AMPUTATION CLINICAL HISTORY: No preop or clinical | | | information is given on requisition. FINAL PATHOLOGIC DIAGNOSIS: | | | Right leg, above-knee amputation: - Severe peripheral | | | atherosclerotic vascular disease with vascular luminal stenosis and | | | associated dystrophic calcification. - Necrosis and underlying | | | abscess. - No evidence of acute osteomyelitis. - Surgical | | | margins appear viable. DDF:emb:C2NR MICROSCOPIC EXAMINATION: | | | Histologic sections of all submitted blocks are examined by light | | | microscopy. These findings, together with the gross examination, | | | support the pathologic diagnosis. GROSS DESCRIPTION: The specimen, | | | labeled "SM, right above knee amputation," is received fresh and | | | consists of a 59 cm in length and up to 13 cm in diameter leg with | | | foot that measures 22 x 7.5 cm. The level of the amputation is 15 | | | cm above the knee joint. The skin on the lateral aspect of the | | | distal leg shows tattoo letters in three rows. The letters are not | | | clear for reading because skin in that area shows a pink-jacobson defect | | | that measures 11 x 7.5 cm. A similar defect is on the opposite side | | | of the leg and measures 5.7 x 6.3 cm. The skin of almost the entire | | | foot, particularly lateral half, shows dark brown, mummified defect. | | | Sectioning through the skin in posterior middle part of the leg | | | shows yellow-green, slimy subcutaneous tissue that is 17 cm from | | | surgical margin. The surgical margins look viable. The popliteal | | | artery is unremarkable and is 0.6 cm in inner diameter. The tibialis | | | posterior artery is soft, flexible and measures 0.3 cm in diameter. | | | The tibialis anterior artery is unremarkable and measures 0.2 cm in | | | diameter. Sectioning through the mummified skin defect on the foot | | | shows dark brown, soft fifth metatarsal bone. Director Of Optimization | | | sections submitted in three cassettes. Tibialis posterior artery is | | | inked. Cassette A2 is left for decalcification in Decal Stat prior | | | processing. Cassette summary: (A1) Skin surgical margin, shave, | | | popliteal artery, tibialis posterior artery, public health representative sections | | | (A2) Mummified foot skin, fifth metatarsal bone, public health representative | | | sections (A3) Skin and subcutaneous tissue from posterior, mid leg | | | and tibialis anterior artery, public health representative sections. JS (under the | | | direct supervision of a pathologist) The Gross Description was | | | prepared using a voice recognition system. The report was reviewed | | | for accuracy; however, sound-alike word errors, addition and/or | | | deletions may occur. If there is any question about this report, | | | please contact Client Services. PERFORMING LABORATORY: The technical | | | component was performed by [facility], [address] [place] [address], | | | [place] [address] (Rail Equipment Operator: Ericka Ng MD; CLIA# | | | [id number]). Professional interpretation was performed by [facility] | | | [facility], [address], | | | [place] [address] (Rail Equipment Operator: Jeramy Guo M.D.; CLIA#: | | | [id number]). Diagnostician: Morteza Patrick DO Pathologist | | | Electronically Signed 04/17/2019 | | + + + + +---------+ + + | Performing | Address | City/State/Zipcode | Phone Number | | Organization | | | | + +---------+ + + | EXTERNAL LAB | | | | + +---------+ + + POC Glucose (04/14/2019 12:58 PM PDT) + + + + + + | Component | Value | Ref Range | Performed | Pathologist | | | | | At | Signature | + + + + + + | Glucose, | 103 (H)Comment: Testing | 65 - 99 mg/dL | EXTERNAL | | | Fingerstick | performed at [facility];[address] | | LAB | | | | [address];[place] | | | | | | [address] | | | | + + + + + + + + | Specimen | + + | | + + + +---------+ + + | Performing | Address | City/State/Zipcode | Phone Number | | Organization | | | | + +---------+ + + | EXTERNAL LAB | | | | + +---------+ + + CBC no Differential (04/14/2019 12:52 PM PDT) + + + + + + | Component | Value | Ref Range | Performed | Pathologist | | | | | At | Signature | + + + + + + | WBC | 45.17 (HH)Comment: | 3.80 - 11.00 | EXTERNAL | | | | RESULT READ BACK BY: | K/uL | LAB | | | | KINGSLEY C 10RP RN @1310 BY | | | | | | BHREAD BACK RESULTS | | | | | | VERIFIED | | | | | | | | | | + + + + + + | RED CELL | 3.18 (L) | 3.70 - 5.10 | EXTERNAL | | | COUNT | | M/uL | LAB | | + + + + + + | Hgb | 8.7 (L) | 11.3 - 15.5 | EXTERNAL | | | | | g/dL | LAB | | + + + + + + | Hematocrit, | 27.1 (L) | 34.0 - 46.0 % | EXTERNAL | | | POC | | | LAB | | + + + + + + | MCV | 85.3 | 80.0 - 100.0 fl | EXTERNAL | | | | | | LAB | | + + + + + + | MCH | 27.5 | 27.0 - 34.0 pg | EXTERNAL | | | | | | LAB | | + + + + + + | MCHC | 32.2 | 32.0 - 35.5 | EXTERNAL | | | | | g/dL | LAB | | + + + + + + | RDW-CV | 50.8 | 37 - 53 fl | EXTERNAL | | | | | | LAB | | + + + + + + | Platelet | 343 | 150 - 400 K/uL | EXTERNAL | | | Count | | | LAB | | | Plasma | | | | | + + + + + + | MPV | 7.4Comment: Testing | fl | EXTERNAL | | | | performed at [facility] | | LAB | | | | [address];[place] | | | | | | [address] | | | | + + + + + + + + | Specimen | + + | | + + + +---------+ + + | Performing | Address | City/State/Zipcode | Phone Number | | Organization | | | | + +---------+ + + | EXTERNAL LAB | | | | + +---------+ + + POC Glucose (04/14/2019 10:55 AM PDT) + + + + + + | Component | Value | Ref Range | Performed | Pathologist | | | | | At | Signature | + + + + + + | Glucose, | 130 (H)Comment: Testing | 65 - 99 mg/dL | EXTERNAL | | | Fingerstick | performed at [facility];[address] | | LAB | | | | [address];[place], [place] | | | | | | [address] | | | | + + + + + + + + | Specimen | + + | | + + + +---------+ + + | Performing | Address | City/State/Zipcode | Phone Number | | Organization | | | | + +---------+ + + | EXTERNAL LAB | | | | + +---------+ + + Sodium (04/14/2019 9:44 AM PDT) + + + + + + | Component | Value | Ref Range | Performed | Pathologist | | | | | At | Signature | + + + + + + | Na | 128 (L)Comment: Testing | 135 - 145 | EXTERNAL | | | | performed at [facility];[address] | mmol/L | LAB | | | | [address];[place] | | | | | | [address] | | | | + + + + + + + + | Specimen | + + | Blood specimen | | (specimen) | + + + +---------+ + + | Performing | Address | City/State/Zipcode | Phone Number | | Organization | | | | + +---------+ + + | EXTERNAL LAB | | | | + +---------+ + + POC Glucose (04/14/2019 9:42 AM PDT) + + + + + + | Component | Value | Ref Range | Performed | Pathologist | | | | | At | Signature | + + + + + + | Glucose, | 133 (H)Comment: Testing | 65 - 99 mg/dL | EXTERNAL | | | Fingerstick | performed at [facility];[address] | | LAB | | | | [address];[place], [place] | | | | | | [address] | | | | + + + + + + + + | Specimen | + + | | + + + +---------+ + + | Performing | Address | City/State/Zipcode | Phone Number | | Organization | | | | + +---------+ + + | EXTERNAL LAB | | | | + +---------+ + + POC Glucose (04/14/2019 8:01 AM PDT) + + + + + + | Component | Value | Ref Range | Performed | Pathologist | | | | | At | Signature | + + + + + + | Glucose, | 112 (H)Comment: Testing | 65 - 99 mg/dL | EXTERNAL | | | Fingerstick | performed at [facility];[address] | | LAB | | | | [address];[place] | | | | | | [address] | | | | + + + + + + + + | Specimen | + + | | + + + +---------+ + + | Performing | Address | City/State/Zipcode | Phone Number | | Organization | | | | + +---------+ + + | EXTERNAL LAB | | | | + +---------+ + + ECHO Complete w Contrast (04/14/2019 7:51 AM PDT) + + | Specimen | + + | | + + + + + | Impressions | Performed At | + + + | 1. This was a technically difficult study with suboptimal views. 2. | | | The left ventricle is moderately dilated, moderately impaired | | | systolic function, akinetic anterior, anteroseptal, inferoseptal and | | | apical segments, EF 30-35%. 3. Pseudonormal LV diastolic filling | | | pattern, consistent with elevated LA pressure and moderate dysfunction | | | (Grade II). 4. The right ventricle is normal in size and function. | | | 5. There is mild pulmonary hypertension. 6. There is no pericardial | | | effusion. | | + + + + + + | Narrative | Performed At | + + + | Patient Name: Alondra Caballero Date of : 1970 | | | Performing Physician: Mari Mcdaniel | | | | | | INDICATIONS abnormal ekg CONCLUSIONS | | | 1. This was a technically difficult study with suboptimal views. 2. | | | The left ventricle is moderately dilated, moderately impaired systolic | | | function, akinetic anterior, anteroseptal, inferoseptal and apical | | | segments, EF 30-35%. 3. Pseudonormal LV diastolic filling pattern, | | | consistent with elevated LA pressure and moderate dysfunction (Grade | | | II). 4. The right ventricle is normal in size and function. 5. There | | | is mild pulmonary hypertension. 6. There is no pericardial effusion. | | | FINDINGS -------- ECG rhythm: Sinus rhythm. Study: A | | | 2-dimensional transthoracic echocardiogram with m-mode, spectral and | | | color flow Doppler was perfomed. Study: This was a technically | | | difficult study with suboptimal views. Left Ventricle: Overall left | | | ventricular systolic function is moderate-severely impaired with, an | | | EF between 30 - 35 %. Left Ventricle: The left ventricle is | | | moderately dilated. Left Ventricle: Left ventricular wall thickness | | | is normal. There appears to be akinesis of the mid to distal septal | | | wall and apex. Left Ventricle: Pseudonormal LV diastolic filling | | | pattern, consistent with elevated LA pressure and moderate dysfunction | | | (Grade II). Right Ventricle: The right ventricle is normal in size | | | and function. Left Atrium: The left atrium is moderately dilated. | | | Right Atrium: The right atrium is mildly enlarged. Aortic Valve: The | | | aortic valve is trileaflet. Aortic Valve: There is mild aortic valve | | | sclerosis without stenosis. Aortic Valve: There is no evidence of | | | aortic regurgitation. Mitral Valve: There is trace mitral | | | regurgitation. Mitral Valve: Mild mitral annular calcification | | | present. Tricuspid Valve: The tricuspid valve appears structurally | | | normal. Tricuspid Valve: Mild tricuspid regurgitation present. | | | Tricuspid Valve: There is mild pulmonary hypertension. Tricuspid | | | Valve: The right ventricular systolic pressure (pulmonary artery | | | systolic pressure), as measured by Doppler, is 35.75mmHg. Pulmonic | | | Valve: The pulmonic valve was not well visualized. Pericardium: There | | | is no pericardial effusion. Pericardium: No pleural effusion seen. | | | IVC/Hepatic Veins: The IVC is normal size (1.5-2.5cm) and collapses | | | >50% with sniff, consistent with central venous pressures of 3 mmHg. | | | Aorta: The aortic root and ascending aorta are normal in size. | | | Contrast: Poor visualization. Definity was used to opacify the left | | | ventricular chamber and improve delineation of the endocardial border. | | | MEASUREMENTS Ao asc: 3.26 cm Ao sinus: | | | 3.12 cm IVC: 1.67 cm EDV(Teich): 215.22 ml IVSd: 0.77 cm | | | LVIDd: 6.48 cm LVPWd: 1.09 cm LVOT Diam: 2.11 cm %FS: | | | 32.20 % EF(Teich): 59.26 % ESV(Teich): 87.67 ml IVSs: 1.21 | | | cm LVIDs: 4.39 cm LVPWs: 1.53 cm SV(Teich): 127.54 ml RA | | | Major: 5.50 cm RVIDd: 3.89 cm LVEF MOD A4C: 26.54 % SV | | | MOD A4C: 42.28 ml LVEDV MOD A4C: 159.26 ml LVLd A4C: 8.45 | | | cm LVESV MOD A4C: 116.98 ml LVLs A4C: 8.51 cm LAESV(A-L): | | | 110.56 ml LAESV Index (A-L): 45.68 ml/m2 LAAs A2C: 26.90 cm2 | | | LAESV A-L A2C: 88.69 ml LALs A2C: 6.92 cm LAAs A4C: 33.33 | | | cm2 LAESV A-L A4C: 136.96 ml LALs A4C: 6.88 cm TAPSE: 2.14 | | | cm AV maxP.27 mmHg AV meanP.11 mmHg AV Vmax: | | | 1.60 m/s AV Vmean: 1.16 m/s AV VTI: 31.46 cm ALMITA Vmax: | | | 2.22 cm2 ALMITA (VTI): 2.34 cm2 AVAI Vmax: 0.00 cm2/m2 AVAI | | | (VTI): 0.00 cm2/m2 LVCI Dopp: 2.70 l/minm2 LVCO Dopp: 6.54 | | | l/min HR: 88.69 BPM LVOT maxP.08 mmHg LVOT meanPG: | | | 2.32 mmHg LVSI Dopp: 30.50 ml/m2 LVSV Dopp: 73.83 ml LVOT | | | Vmax: 1.01 m/s LVOT Vmean: 0.73 m/s LVOT VTI: 20.94 cm MV | | | A Delia: 1.30 m/s MV DecT: 254.70 ms MV E Delia: 1.44 m/s MV | | | E/A Ratio: 1.10 MV PHT: 79.98 ms MVA By PHT: 2.75 cm2 MV | | | maxP.11 mmHg MV meanP.43 mmHg MV Vmax: 1.81 m/s | | | MV Vmean: 1.11 m/s MV VTI: 42.30 cm MVA (VTI): 1.74 cm2 | | | Septal e': 0.03 m/s Septal E/e': 36.41 Lateral e': 0.05 m/s | | | Lateral E/e': 25.65 HR: 90.60 BPM PV maxP.38 mmHg PV | | | meanP.76 mmHg PV Vmax: 0.91 m/s PV Vmean: 0.63 m/s PV | | | VTI: 19.84 cm RAP: 8 mmHg RV S': 0.08 m/s RVSP: 35.75 | | | mmHg TR maxP.75 mmHg TR Vmax: 2.63 m/s Battery Hand: | | | MW Authenticated by: Mari Weissaromas Report Date/Time: 04-15-2019 | | | 10:55:13 | | + + + + + | Procedure Note | + + | Florencio, Rad Conversion - 05/01/2019 6:13 PM PDT Patient Name: Jeovanny Caballero of | | : 1970 Performing Physician: Mari | | [facility] INDICATIONS------ | | -----abnormal ekg CONCLUSIONS 1. This was a technically difficult study with | | suboptimal views.2. The left ventricle is moderately dilated, moderately impaired | | systolic function, akinetic anterior, anteroseptal, inferoseptal and apical segments, EF | | 30-35%.3. Pseudonormal LV diastolic filling pattern, consistent with elevated LA | | pressure and moderate dysfunction (Grade II).4. The right ventricle is normal in size | | and function.5. There is mild pulmonary hypertension.6. There is no pericardial | | effusion. FINDINGS--------ECG rhythm: Sinus rhythm.Study: A 2-dimensional transthoracic | | echocardiogram with m-mode, spectral and color flow Doppler was perfomed.Study: This was | | a technically difficult study with suboptimal views.Left Ventricle: Overall left | | ventricular systolic function is moderate-severely impaired with, an EF between 30 - 35 | | %.Left Ventricle: The left ventricle is moderately dilated.Left Ventricle: Left | | ventricular wall thickness is normal. There appears to be akinesis of the mid to distal | | septal wall and apex.Left Ventricle: Pseudonormal LV diastolic filling pattern, | | consistent with elevated LA pressure and moderate dysfunction (Grade II).Right | | Ventricle: The right ventricle is normal in size and function.Left Atrium: The left | | atrium is moderately dilated.Right Atrium: The right atrium is mildly enlarged.Aortic | | Valve: The aortic valve is trileaflet.Aortic Valve: There is mild aortic valve sclerosis | | without stenosis.Aortic Valve: There is no evidence of aortic regurgitation.Mitral | | Valve: There is trace mitral regurgitation.Mitral Valve: Mild mitral annular | | calcification present.Tricuspid Valve: The tricuspid valve appears structurally | | normal.Tricuspid Valve: Mild tricuspid regurgitation present.Tricuspid Valve: There is | | mild pulmonary hypertension.Tricuspid Valve: The right ventricular systolic pressure | | (pulmonary artery systolic pressure), as measured by Doppler, is 35.75mmHg.Pulmonic | | Valve: The pulmonic valve was not well visualized.Pericardium: There is no pericardial | | effusion.Pericardium: No pleural effusion seen.IVC/Hepatic Veins: The IVC is normal size | | (1.5-2.5cm) and collapses >50% with sniff, consistent with central venous pressures of | | 3 mmHg.Aorta: The aortic root and ascending aorta are normal in size.Contrast: Poor | | visualization. Definity was used to opacify the left ventricular chamber and improve | | delineation of the endocardial border. MEASUREMENTS Ao asc: 3.26 cmAo | | sinus: 3.12 cmIVC: 1.67 cmEDV(Teich): 215.22 mlIVSd: 0.77 cmLVIDd: 6.48 | | cmLVPWd: 1.09 cmLVOT Diam: 2.11 cm%FS: 32.20 %EF(Teich): 59.26 %ESV(Teich): | | 87.67 mlIVSs: 1.21 cmLVIDs: 4.39 cmLVPWs: 1.53 cmSV(Teich): 127.54 mlRA Major: | | 5.50 cmRVIDd: 3.89 cmLVEF MOD A4C: 26.54 %SV MOD A4C: 42.28 mlLVEDV MOD A4C: | | 159.26 mlLVLd A4C: 8.45 cmLVESV MOD A4C: 116.98 mlLVLs A4C: 8.51 cmLAESV(A-L): | | 110.56 mlLAESV Index (A-L): 45.68 ml/m2LAAs A2C: 26.90 [id number] A-L A2C: 88.69 | | mlLALs A2C: 6.92 cmLAAs A4C: 33.33 nt2FRVGU A-L A4C: 136.96 mlLALs A4C: 6.88 | | cmTAPSE: 2.14 cmAV maxP.27 mmHgAV meanP.11 mmHgAV Vmax: 1.60 m/Jordan | | Vmean: 1.16 m/Jordan VTI: 31.46 cmAVA Vmax: 2.22 cm2AVA (VTI): 2.34 wh2PJHA Vmax: | | 0.00 cm2/m2AVAI (VTI): 0.00 cm2/m2LVCI Dopp: 2.70 l/zpss1NMUV Dopp: 6.54 l/minHR: | | 88.69 BPMLVOT maxP.08 mmHgLVOT meanP.32 mmHgLVSI Dopp: 30.50 ml/m2LVSV | | Dopp: 73.83 mlLVOT Vmax: 1.01 m/sLVOT Vmean: 0.73 m/sLVOT VTI: 20.94 cmMV A Delia: | | 1.30 m/sMV DecT: 254.70 msMV E Delia: 1.44 m/sMV E/A Ratio: 1.10MV PHT: 79.98 | | msMVA By PHT: 2.75 cm2MV maxP.11 mmHgMV meanP.43 mmHgMV Vmax: 1.81 | | m/sMV Vmean: 1.11 m/sMV VTI: 42.30 cmMVA (VTI): 1.74 [id number] e': 0.03 | | m/sSeptal E/e': 36.41Lateral e': 0.05 m/sLateral E/e': 25.65HR: 90.60 BPMPV | | maxP.38 mmHgPV meanP.76 mmHgPV Vmax: 0.91 m/sPV Vmean: 0.63 m/sPV VTI: | | 19.84 cmRAP: 8 mmHgRV S': 0.08 m/sRVSP: 35.75 mmHgTR maxP.75 mmHgTR Vmax: | | 2.63 m/s Battery Hand: FLEXAuthenticated by: Mari Valero Date/Time: 04-15-2019 | | 10:55:13 IMPRESSION: 1. This was a technically difficult study with suboptimal views.2. | | The left ventricle is moderately dilated, moderately impaired systolic function, | | akinetic anterior, anteroseptal, inferoseptal and apical segments, EF 30-35%.3. | | Pseudonormal LV diastolic filling pattern, consistent with elevated LA pressure and | | moderate dysfunction (Grade II).4. The right ventricle is normal in size and function.5. | | There is mild pulmonary hypertension.6. There is no pericardial effusion. | |LVPWd: 1.09 cm | |LVOT Diam: 2.11 cm | |%FS: 32.20 % | |EF(Teich): 59.26 % | |ESV(Teich): 87.67 ml | |IVSs: 1.21 cm | |LVIDs: 4.39 cm | |LVPWs: 1.53 cm | |SV(Teich): 127.54 ml | |RA Major: 5.50 cm | |RVIDd: 3.89 cm | |LVEF MOD A4C: 26.54 % | |SV MOD A4C: 42.28 ml | |LVEDV MOD A4C: 159.26 ml | |LVLd A4C: 8.45 cm | |LVESV MOD A4C: 116.98 ml | |LVLs A4C: 8.51 cm | |LAESV(A-L): 110.56 ml | |LAESV Index (A-L): 45.68 ml/m2 | |LAAs A2C: 26.90 cm2 | |LAESV A-L A2C: 88.69 ml | |LALs A2C: 6.92 cm | |LAAs A4C: 33.33 cm2 | |LAESV A-L A4C: 136.96 ml | |LALs A4C: 6.88 cm | |TAPSE: 2.14 cm | |AV maxP.27 mmHg | |AV meanP.11 mmHg | |AV Vmax: 1.60 m/s | |AV Vmean: 1.16 m/s | |AV VTI: 31.46 cm | |ALMITA Vmax: 2.22 cm2 | |ALMITA (VTI): 2.34 cm2 | |AVAI Vmax: 0.00 cm2/m2 | |AVAI (VTI): 0.00 cm2/m2 | |LVCI Dopp: 2.70 l/minm2 | |LVCO Dopp: 6.54 l/min | |HR: 88.69 BPM | |LVOT maxP.08 mmHg | |LVOT meanP.32 mmHg | |LVSI Dopp: 30.50 ml/m2 | |LVSV Dopp: 73.83 ml | |LVOT Vmax: 1.01 m/s | |LVOT Vmean: 0.73 m/s | |LVOT VTI: 20.94 cm | |MV A Delia: 1.30 m/s | |MV DecT: 254.70 ms | |MV E Delia: 1.44 m/s | |MV E/A Ratio: 1.10 | |MV PHT: 79.98 ms | |MVA By PHT: 2.75 cm2 | |MV maxP.11 mmHg | |MV meanP.43 mmHg | |MV Vmax: 1.81 m/s | |MV Vmean: 1.11 m/s | |MV VTI: 42.30 cm | |MVA (VTI): 1.74 cm2 | |Septal e': 0.03 m/s | |Septal E/e': 36.41 | |Lateral e': 0.05 m/s | |Lateral E/e': 25.65 | |HR: 90.60 BPM | |PV maxP.38 mmHg | |PV meanP.76 mmHg | |PV Vmax: 0.91 m/s | |PV Vmean: 0.63 m/s | |PV VTI: 19.84 cm | |RAP: 8 mmHg | |RV S': 0.08 m/s | |RVSP: 35.75 mmHg | |TR maxP.75 mmHg | |TR Vmax: 2.63 m/s | | | |Battery Hand: MW | |Authenticated by: Mari Mcdaniel | |Report Date/Time: 04-15-2019 10:55:13 | | | |IMPRESSION: | |1. This was a technically difficult study with suboptimal views. | |2. The left ventricle is moderately dilated, moderately impaired systolic function, akineti c anterior, anteroseptal, inferoseptal and apical segments, EF 30-35%. | |3. Pseudonormal LV diastolic filling pattern, consistent with elevated LA pressure and mode rate dysfunction (Grade II). | |4. The right ventricle is normal in size and function. | |5. There is mild pulmonary hypertension. | |6. There is no pericardial effusion. | + + Lactic Acid (04/14/2019 7:21 AM PDT) + + + + + + | Component | Value | Ref Range | Performed | Pathologist | | | | | At | Signature | + + + + + + | Lactate | 2.0Comment: Testing | 0.4 - 2.0 | EXTERNAL | | | | performed at [facility];[address] | mmol/L | LAB | | | | [address];[place], [place] | | | | | | [address] | | | | + + + + + + + + | Specimen | + + | Blood specimen | | (specimen) | + + + +---------+ + + | Performing | Address | City/State/Zipcode | Phone Number | | Organization | | | | + +---------+ + + | EXTERNAL LAB | | | | + +---------+ + + Sodium (04/14/2019 7:09 AM PDT) + + + + + + | Component | Value | Ref Range | Performed | Pathologist | | | | | At | Signature | + + + + + + | Na | 129 (L)Comment: Testing | 135 - 145 | EXTERNAL | | | | performed at [facility];[address] | mmol/L | LAB | | | | [address];[place], [place] | | | | | | [address] | | | | + + + + + + + + | Specimen | + + | Blood specimen | | (specimen) | + + + +---------+ + + | Performing | Address | City/State/Zipcode | Phone Number | | Organization | | | | + +---------+ + + | EXTERNAL LAB | | | | + +---------+ + + POC Glucose (04/14/2019 6:46 AM PDT) + + + + + + | Component | Value | Ref Range | Performed | Pathologist | | | | | At | Signature | + + + + + + | Glucose, | 162 (H)Comment: Testing | 65 - 99 mg/dL | EXTERNAL | | | Fingerstick | performed at [facility];[address] | | LAB | | | | [address];[place], [place] | | | | | | [address] | | | | + + + + + + + + | Specimen | + + | | + + + +---------+ + + | Performing | Address | City/State/Zipcode | Phone Number | | Organization | | | | + +---------+ + + | EXTERNAL LAB | | | | + +---------+ + + POC Glucose (04/14/2019 5:31 AM PDT) + + + + + + | Component | Value | Ref Range | Performed | Pathologist | | | | | At | Signature | + + + + + + | Glucose, | 171 (H)Comment: Testing | 65 - 99 mg/dL | EXTERNAL | | | Fingerstick | performed at [facility];[address] | | LAB | | | | [address];[place] | | | | | | [address] | | | | + + + + + + + + | Specimen | + + | | + + + +---------+ + + | Performing | Address | City/State/Zipcode | Phone Number | | Organization | | | | + +---------+ + + | EXTERNAL LAB | | | | + +---------+ + + POC Glucose (04/14/2019 4:27 AM PDT) + + + + + + | Component | Value | Ref Range | Performed | Pathologist | | | | | At | Signature | + + + + + + | Glucose, | 180 (H)Comment: Testing | 65 - 99 mg/dL | EXTERNAL | | | Fingerstick | performed at [facility];[address] | | LAB | | | | [address];[place], [place] | | | | | | [address] | | | | + + + + + + + + | Specimen | + + | | + + + +---------+ + + | Performing | Address | City/State/Zipcode | Phone Number | | Organization | | | | + +---------+ + + | EXTERNAL LAB | | | | + +---------+ + + PTT (04/14/2019 4:09 AM PDT) + + + + + + | Component | Value | Ref Range | Performed | Pathologist | | | | | At | Signature | + + + + + + | aPTT, | 55 (H)Comment: Testing | 23 - 32 seconds | EXTERNAL | | | Patient | performed at [facility];[address] | | LAB | | | | [address];[place] | | | | | | [address] | | | | + + + + + + + + | Specimen | + + | Blood specimen | | (specimen) | + + + +---------+ + + | Performing | Address | City/State/Zipcode | Phone Number | | Organization | | | | + +---------+ + + | EXTERNAL LAB | | | | + +---------+ + + Protime INR (04/14/2019 4:09 AM PDT) + + + + + + | Component | Value | Ref Range | Performed | Pathologist | | | | | At | Signature | + + + + + + | INR | 2.2Comment: REFERENCE | | EXTERNAL | | | | RANGE:0.9 - 1.2 | | LAB | | | | NON-ANTICOAGULATED2.0 | | | | | | - 3.0 ALL OTHER | | | | | | THERAPEUTIC | | | | | | INDICATIONS2.5 - 3.5 | | | | | | MECHANICAL HEART VALVES, | | | | | | RECURRENT OR SYSTEMIC | | | | | | EMBOLISMTesting | | | | | | performed at [facility] | | | | | | [address];[place] | | | | | | [address] | | | | + + + [...] + +---------+ + + External Lab: CBC (04/14/2019 4:09 AM PDT) + + +---- + + + | Component | Value | Ref Range | Performed | Pathologist | | | | | At | Signature | + + +---- + + + | WBC | 57.62 ()Comment: | 3.8 0 - 11.00 | EXTERNAL | | | | RESULT READ BACK | K/u L | LAB | | | | BY:SONDRA Petty 10RP AT 0530 | | | | | | [id number] | | | | | | | | | | + + +---- + + + | RED CELL | 2.67 (L) | 3.7 0 - 5.10 | EXTERNAL | | | COUNT | | M/u L | LAB | | + + +---- + + + | Hgb | 7.1 (L) | 11. 3 - 15.5 | EXTERNAL | | | | | g/d L | LAB | | + + +---- + + + | Hematocrit, | 22.5 (L) | 34. 0 - 46.0 % | EXTERNAL | | | POC | | | LAB | | + + +---- + + + | MCV | 84.4 | 80. 0 - 100.0 fl | EXTERNAL | | | | | | LAB | | + + +---- + + + | MCH | 26.6 (L) | 27. 0 - 34.0 pg | EXTERNAL | | | | | | LAB | | + + +---- + + + | MCHC | 31.6 (L) | 32. 0 - 35.5 | EXTERNAL | | | | | g/d L | LAB | | + + +---- + + + | RDW-CV | 47.7 | 37 - 53 fl | EXTERNAL | | | | | | LAB | | + + +---- + + + | Platelet | 408 (H) | 150 - 400 K/uL | EXTERNAL | | | Count | | | LAB | | | Plasma | | | | | + + +---- + + + | MPV | 8.1 | fl | EXTERNAL | | | | | | LAB | | + + +---- + + + | Differentia | MANUAL | | EXTERNAL | | | l Type | | | LAB | | + + +---- + + + | Nucleated | 1 (H) | /10 0WBC | EXTERNAL | | | Red Blood | | | LAB | | | Cells | | | | | + + +---- + + + | Segmented | 78 | % | EXTERNAL | | | Neutrophils | | | LAB | | | Manual | | | | | + + +---- + + + | % Bands | 7 | % | EXTERNAL | | | | | | LAB | | + + +---- + + + | % | 3 | % | EXTERNAL | | | Metamyelocy | | | LAB | | | oliverio | | | | | + + +---- + + + | % | 2 | % | EXTERNAL | | | Myelocytes | | | LAB | | + + +---- + + + | Lymphocytes | 8 | % | EXTERNAL | | | Manual | | | LAB | | + + +---- + + + | Monocytes | 2 | % | EXTERNAL | | | Manual | | | LAB | | + + +---- + + + | Absolute | 44.95 (H) | 1.9 0 - 7.40 | EXTERNAL | | | Neutrophils | | K/u L | LAB | | + + +---- + + + | Bands | 4.03 (H) | 0.0 0 - 0.20 | EXTERNAL | | | Manual | | K/u L | LAB | | + + +---- + + + | Absolute | 1.73 (H) | K/u L | EXTERNAL | | | Metamyelocy | | | LAB | | | oliverio | | | | | + + +---- + + + | Absolute | 1.15 (H) | K/u L | EXTERNAL | | | Myelocytes | | | LAB | | + + +---- + + + | Absolute | 4.61 (H) | 1.0 0 - 3.90 | EXTERNAL | | | Lymphocytes | | K/u L | LAB | | + + +---- + + + | Absolute | 1.15 (H) | 0.0 0 - 0.80 | EXTERNAL | | | Monocytes | | K/u L | LAB | | + + +---- + + + | RBC | 1+Comment: | | EXTERNAL | | | Morphology | ANISO2+POLYNORMAL PLT | | LAB | | | | MORPHTesting performed | | | | | | at [facility], [address] | | | | | | [facility], | | | | | | [place] [address] | | | | | |Testing performed at [facility], [address] [facility], [place] [address] | | | | | | | [...] | | + +---------+ + + Phosphorus (04/14/2019 4:09 AM PDT) + + + + + + | Component | Value | Ref Range | Performed | Pathologist | | | | | At | Signature | + + + + + + | PHOSPHORUS | 3.7Comment: Testing | 2.3 - 4.8 mg/dL | EXTERNAL | | | | performed at [facility], [address] | | LAB | | | | [address], | | | | | | [place] [address] | | | | + + + + + + + + | Specimen | + + | Blood specimen | | (specimen) | + + + +---------+ + + | Performing | Address | City/State/Zipcode | Phone Number | | Organization | | | | + +---------+ + + | EXTERNAL LAB | | | | + +---------+ + + Magnesium (04/14/2019 4:09 AM PDT) + + + + + + | Component | Value | Ref Range | Performed | Pathologist | | | | | At | Signature | + + + + + + | Magnesium | 2.4Comment: Testing | 1.7 - 2.4 mg/dL | EXTERNAL | | | | performed at [facility], [address] | | LAB | | | | [address], | | | | | | [place] [address] | | | | + + + + + + + + | Specimen | + + | Blood specimen | | (specimen) | + + + +---------+ + + | Performing | Address | City/State/Zipcode | Phone Number | | Organization | | | | + +---------+ + + | EXTERNAL LAB | | | | + +---------+ + + Hemoglobin A1C (04/14/2019 4:09 AM PDT) + + + + + + | Component | Value | Ref Range | Performed | Pathologist | | | | | At | Signature | + + + + + + | Hemoglobin | 6.6 (H)Comment: HbA1c | 4.0 - 6.0 % | EXTERNAL | | | A1c | method is certified by | | LAB | | | | NGSP and traceable to | | | | | | the DCCT reference | | | | | | method.ADA guidelines | | | | | | indicate: | | | | | | Prediabetes: 5.7 - 6.4 | | | | | | Diabetes: >6.4 | | | | | | Glycemic control for | | | | | | adults with diabetes: | | | | | | <7.0Effective 10/04/2018: | | | | | | Note New Method | | | | + + + + + + | Glycohemogl | 143Comment: Estimated | mg/dL | EXTERNAL | | | obin | Average Glucose | | LAB | | | (GHb),Total | calculated from | | | | | | hemoglobin A1c by use of | | | | | | the ADA recommended | | | | | | formula.Testing | | | | | | performed at [facility], [address] | | | | | | [address], | | | | | | [place] [address] | | | | + + + [...] + +---------+ + + Basic Metabolic Panel (04/14/2019 4:09 AM PDT) + + + + + + | Component | Value | Ref Range | Performed | Pathologist | | | | | At | Signature | + + + + + + | Na | 127 (L) | 135 - 145 | EXTERNAL | | | | | mmol/L | LAB | | + + + + + + | K | 4.8 | 3.5 - 4.9 | EXTERNAL | | | | | mmol/L | LAB | | + + + + + + | Cl | 96 (L) | 99 - 109 mmol/L | EXTERNAL | | | | | | LAB | | + + + + + + | CO2 | 22 (L) | 23 - 32 mmol/L | EXTERNAL | | | | | | LAB | | + + + + + + | Anion Gap | 14 | 5 - 20 mmol/L | EXTERNAL | | | | | | LAB | | + + + + + + | Glucose, | 188 (H) | 65 - 99 mg/dL | EXTERNAL | | | Fasting | | | LAB | | + + + + + + | BUN | 83 (H) | 8 - 25 mg/dL | EXTERNAL | | | | | | LAB | | + + + + + + | Creatinine | 3.6 (H) | 0.50 - 1.00 | EXTERNAL | | | | | mg/dL | LAB | | + + + + + + | BUN/Creatin | 23 | | EXTERNAL | | | ine Ratio | | | LAB | | + + + + + + | Calcium | 7.6 (L) | 8.5 - 10.5 | EXTERNAL | | | | | mg/dL | LAB | | + + + + + + | Estimated | 13 (L)Comment: GFR <60: | mL/min/1.73m2 | EXTERNAL [...] BY | | | | | | 1.210.This eGFR is | | | | | | calculated using the | | | | | | MDRD IDRI traceable | | | | | | equation.Testing | | | | | | performed at [facility], [address] | | | | | | [facility], | | | | | | [place] [address] | | | | + + + + + + + + | Specimen | + + | Blood specimen | | (specimen) | + + + +---------+ + + | Performing | Address | City/State/Zipcode | Phone Number | | Organization | | | | + +---------+ + + | EXTERNAL LAB | | | | + +---------+ + + POC Glucose (04/14/2019 3:27 AM PDT) + + + + + + | Component | Value | Ref Range | Performed | Pathologist | | | | | At | Signature | + + + + + + | Glucose, | 202 (H)Comment: Testing | 65 - 99 mg/dL | EXTERNAL | | | Fingerstick | performed at [facility];[address] | | LAB | | | | [address];[place], [place] | | | | | | [address] | | | | + + + + + + + + | Specimen | + + | | + + + +---------+ + + | Performing | Address | City/State/Zipcode | Phone Number | | Organization | | | | + +---------+ + + | EXTERNAL LAB | | | | + +---------+ + + POC Glucose (04/14/2019 2:17 AM PDT) + + + + + + | Component | Value | Ref Range | Performed | Pathologist | | | | | At | Signature | + + + + + + | Glucose, | 228 (H)Comment: Testing | 65 - 99 mg/dL | EXTERNAL | | | Fingerstick | performed at [facility];[address] | | LAB | | | | [address];[place], [place] | | | | | | [address] | | | | + + + + + + + + | Specimen | + + | | + + + +---------+ + + | Performing | Address | City/State/Zipcode | Phone Number | | Organization | | | | + +---------+ + + | EXTERNAL LAB | | | | + +---------+ + + Sodium (04/14/2019 1:45 AM PDT) + + + + + + | Component | Value | Ref Range | Performed | Pathologist | | | | | At | Signature | + + + + + + | Na | 130 (L)Comment: Testing | 135 - 145 | EXTERNAL | | | | performed at [facility];[address] | mmol/L | LAB | | | | [address];[place], [place] | | | | | | [address] | | | | + + + + + + + + | Specimen | + + | Blood specimen | | (specimen) | + + + +---------+ + + | Performing | Address | City/State/Zipcode | Phone Number | | Organization | | | | + +---------+ + + | EXTERNAL LAB | | | | + +---------+ + + POC Glucose (04/14/2019 1:11 AM PDT) + + + + + + | Component | Value | Ref Range | Performed | Pathologist | | | | | At | Signature | + + + + + + | Glucose, | 255 (H)Comment: Testing | 65 - 99 mg/dL | EXTERNAL | | | Fingerstick | performed at [facility];[address] | | LAB | | | | [address];[place], [place] | | | | | | [address] | | | | + + + + + + + + | Specimen | + + | | + + + +---------+ + + | Performing | Address | City/State/Zipcode | Phone Number | | Organization | | | | + +---------+ + + | EXTERNAL LAB | | | | + +---------+ + + POC Glucose (04/14/2019 12:12 AM PDT) + + + + + + | Component | Value | Ref Range | Performed | Pathologist | | | | | At | Signature | + + + + + + | Glucose, | 253 (H)Comment: Testing | 65 - 99 mg/dL | EXTERNAL | | | Fingerstick | performed at [facility];[address] | | LAB | | | | [address];[place], [place] | | | | | | [address] | | | | + + + + + + + + | Specimen | + + | | + + + +---------+ + + | Performing | Address | City/State/Zipcode | Phone Number | | Organization | | | | + +---------+ + + | EXTERNAL LAB | | | | + +---------+ + + Basic Metabolic Panel (04/13/2019 11:29 PM PDT) + + + + + + | Component | Value | Ref Range | Performed | Pathologist | | | | | At | Signature | + + + + + + | Na | 130 (L) | 135 - 145 | EXTERNAL | | | | | mmol/L | LAB | | + + + + + + | K | 4.8 | 3.5 - 4.9 | EXTERNAL | | | | | mmol/L | LAB | | + + + + + + | Cl | 99 | 99 - 109 mmol/L | EXTERNAL | | | | | | LAB | | + + + + + + | CO2 | 20 (L) | 23 - 32 mmol/L | EXTERNAL | | | | | | LAB | | + + + + + + | Anion Gap | 16 | 5 - 20 mmol/L | EXTERNAL | | | | | | LAB | | + + + + + + | Glucose, | 266 (H) | 65 - 99 mg/dL | EXTERNAL | | | Fasting | | | LAB | | + + + + + + | BUN | 85 (H) | 8 - 25 mg/dL | EXTERNAL | | | | | | LAB | | + + + + + + | Creatinine | 3.53 (H) | 0.50 - 1.00 | EXTERNAL | | | | | mg/dL | LAB | | + + + + + + | BUN/Creatin | 24 | | EXTERNAL | | | ine Ratio | | | LAB | | + + + + + + | Calcium | 6.5 (L) | 8.5 - 10.5 | EXTERNAL | | | | | mg/dL | LAB | | + + + + + + | Estimated | 14 (L)Comment: GFR <60: | mL/min/1.73m2 | EXTERNAL [...] BY | | | | | | 1.210.This eGFR is | | | | | | calculated using the | | | | | | MDRD IDMS traceable | | | | | | equation.Testing | | | | | | performed at [facility];[address] | | | | | | [facility];[place], [place] | | | | | | [id number] | | | | + + + + + + + + | Specimen | + + | Blood specimen | | (specimen) | + + + +---------+ + + | Performing | Address | City/State/Zipcode | Phone Number | | Organization | | | | + +---------+ + + | EXTERNAL LAB | | | | + +---------+ + + POC Glucose (04/13/2019 11:08 PM PDT) + + + + + + | Component | Value | Ref Range | Performed | Pathologist | | | | | At | Signature | + + + + + + | Glucose, | 268 (H)Comment: Testing | 65 - 99 mg/dL | EXTERNAL | | | Fingerstick | performed at [facility] [place] [facility];[address] | | LAB | | | | [address];[place] | | | | | | [address] | | | | + + + + + + + + | Specimen | + + | | + + + +---------+ + + | Performing | Address | City/State/Zipcode | Phone Number | | Organization | | | | + +---------+ + + | EXTERNAL LAB | | | | + +---------+ + + POC Glucose (04/13/2019 10:02 PM PDT) + + + + + + | Component | Value | Ref Range | Performed | Pathologist | | | | | At | Signature | + + + + + + | Glucose, | 344 (H)Comment: Testing | 65 - 99 mg/dL | EXTERNAL | | | Fingerstick | performed at [facility] [place] [facility];[address] | | LAB | | | [address];[place], [place] | | | | | | [id number] | | | | + + + + + + + + | Specimen | + + | | + + + +---------+ + + | Performing | Address | City/State/Zipcode | Phone Number | | Organization | | | | + +---------+ + + | EXTERNAL LAB | | | | + +---------+ + + Ketones, blood (04/13/2019 9:39 PM PDT) + + + + + + | Component | Value | Ref Range | Performed | Pathologist | | | | | At | Signature | + + + + + + | Ketones, | SMALL (A)Comment: | | EXTERNAL | | | Blood | Testing performed at | | LAB | | | | [facility] | | | | | | [place] [address] | | | | + + + + + + + + | Specimen | + + | Blood specimen | | (specimen) | + + + +---------+ + + | Performing | Address | City/State/Zipcode | Phone Number | | Organization | | | | + +---------+ + + | EXTERNAL LAB | | | | + +---------+ + + Lactic Acid (04/13/2019 9:39 PM PDT) + + + + + + | Component | Value | Ref Range | Performed | Pathologist | | | | | At | Signature | + + + + + + | Lactate | 4.2 (H)Comment: Testing | 0.4 - 2.0 | EXTERNAL | | | | performed at [facility];888 | mmol/L | LAB | | | | [address];[place], [place] | | | | | | [address] | | | | + + + + + + + + | Specimen | + + | | + + + +---------+ + + | Performing | Address | City/State/Zipcode | Phone Number | | Organization | | | | + +---------+ + + | EXTERNAL LAB | | | | + +---------+ + + Calcium, Ionized (04/13/2019 9:39 PM PDT) + + + + + + | Component | Value | Ref Range | Performed | Pathologist | | | | | At | Signature | + + + + + + | Calcium | 0.98 (L) | 1.08 - 1.25 | EXTERNAL | | | (Calc) | | mmol/L | LAB | | + + + + + + | pH, Bld | 7.313Comment: Testing | 7.300 - 7.450 | EXTERNAL | | | | performed at [facility];[address] | | LAB | | | | [address];[place], [place] | | | | | | [address] | | | | + + + + + + + + | Specimen | + + | Blood specimen | | (specimen) | + + + +---------+ + + | Performing | Address | City/State/Zipcode | Phone Number | | Organization | | | | + +---------+ + + | EXTERNAL LAB | | | | + +---------+ + + POC Glucose (04/13/2019 9:01 PM PDT) + + + + + + | Component | Value | Ref Range | Performed | Pathologist | | | | | At | Signature | + + + + + + | Glucose, | 379 (H)Comment: Testing | 65 - 99 mg/dL | EXTERNAL | | | Fingerstick | performed at [facility];[address] | | LAB | | | | [address];[place] | | | | | | [address] | | | | + + + + + + + + | Specimen | + + | | + + + +---------+ + + | Performing | Address | City/State/Zipcode | Phone Number | | Organization | | | | + +---------+ + + | EXTERNAL LAB | | | | + +---------+ + + Culture, Blood, 2nd Specimen (04/13/2019 8:24 PM PDT) + + | Specimen | + + | Blood specimen | | (specimen) | + + + + + | Narrative | Performed At | + + + | Specimen Description BLOOD, LINE DRAW SPECIAL | EXTERNAL LAB | | REQUESTS CL BLUE PORT GRAM STAIN | | | GRAM POSITIVE COCCI IN CHAINSAbnormal | | | SEEN IN AEROBIC BOTTLE | | | SMEAR RESULTS | | | CALLED TO AND READ BACK BY: | | | KINGSLEY ON 10RP AT 1830 ON 04/14/2019 CULTURE | | | BETA HEMOLYTIC GROUP G | | | STREPTOCOCCUSAbnormal | | | GROWTH IN ONE OF TWO BOTTLESAbnormal | | | TIME TO DETECTION: | | | 0.84 DAYS Suscepibility for - BETA | | | HEMOLYTIC GROUP G STREPTOCOCCUS Penicillin G | | | SUSCEPTIBLESensitive PENICILLIN OTHER | | | SUSCEPTIBLESensitive PENICILLIN (PNEUMONIA) | | | SUSCEPTIBLESensitive PENICILLIN (ORAL) | | | SUSCEPTIBLESensitive Levofloxacin | | | SUSCEPTIBLESensitive Linezolid | | | SUSCEPTIBLESensitive Vancomycin | | | SUSCEPTIBLESensitive Clindamycin | | | SUSCEPTIBLESensitive Ceftriaxone CSF | | | SUSCEPTIBLESensitive Cefotaxime CSF | | | SUSCEPTIBLESensitive Cefotaxime | | | SUSCEPTIBLESensitive Tetracycline | | | SUSCEPTIBLESensitive Erythromycin | | | SUSCEPTIBLESensitive Ampicillin | | | SUSCEPTIBLESensitive | | + + + + +---------+ + + | Performing | Address | City/State/Zipcode | Phone Number | | Organization | | | | + +---------+ + + | EXTERNAL LAB | | | | + +---------+ + + XR Chest 1 Vw (04/13/2019 7:27 PM PDT) + + | Specimen | + + | | + + + + + | Impressions | Performed At | + + + | Poorly defined opacity in the left lung base, which may represent | | | atelectasis or consolidation. Left IJ central venous catheter | | | terminates in the mid SVC. Signed by: Emy Romero John Sign | | | Date/Time: 04/13/2019 7:44 PM | | + + + + + + | Narrative | Performed At | + + + | CHEST ONE VIEW CLINICAL INFORMATION: Central line placement | | | COMPARISON: ECHO OUTSIDE INTERPRETATION (03/24/2017); XR CHEST 1 VIEW | | | (01/05/2016); XR FLUORO OVER 1 HOUR (01/02/2016); FINDINGS: Poorly | | | defined opacity in the left lung base. Right lung is clear. | | | Costophrenic angles are clear. No pneumothorax. Cardiac silhouette | | | is unremarkable. Left IJ central venous catheter terminates in the | | | mid SVC. | | + + + + + | Procedure Note | + + | Florencio, Rad Conversion - 05/01/2019 6:13 PM PDT CHEST ONE VIEW | | CLINICAL INFORMATION: | | Central line placement | | COMPARISON: | | ECHO OUTSIDE INTERPRETATION (03/24/2017); XR CHEST 1 VIEW (01/05/2016); XR | | FLUORO OVER 1 HOUR (01/02/2016); | | FINDINGS: | | Poorly defined opacity in the left lung base. Right lung is clear. | | Costophrenic angles are clear. No pneumothorax. Cardiac silhouette is | | unremarkable. Left IJ central venous catheter terminates in the mid | | SVC. | | IMPRESSION: | | Poorly defined opacity in the left lung base, which may represent | | atelectasis or consolidation. Left IJ central venous catheter | | terminates in the mid SVC. | | Signed by: Emy Romero, Chuck | | Sign Date/Time: 04/13/2019 7:44 PM | + + Culture, Wound, Smear, w/Anaerobe (04/13/2019 7:24 PM PDT) + + | Specimen | + + | | + + + + + | Narrative | Performed At | + + + | Specimen Description FOOT CULTURE | EXTERNAL LAB | | 2+ | | | BETA HEMOLYTIC GROUP G | | | STREPTOCOCCUSAbnormal | | | BETA STREP ORGANISMS ARE PREDICTABLY SUSCEPTIBLE TO PENICILLIN | | | AND CEPHALOSPORINS | | | 2+ | | | MIXED GRAM POSITIVE AND GRAM NEGATIVE RADHA | | | NO FURTHER WORKUP | | + + + + +---------+ + + | Performing | Address | City/State/Zipcode | Phone Number | | Organization | | | | + +---------+ + + | EXTERNAL LAB | | | | + +---------+ + + B Type Natriuretic Peptide (04/13/2019 7:24 PM PDT) + + + + + + | Component | Value | Ref Range | Performed | Pathologist | | | | | At | Signature | + + + + + + | BNP | 348.11 (H)Comment: | 0 - 100 pg/mL | EXTERNAL | | | | Testing performed at | | LAB | | | | [facility] [address] | | | | | | [address];[place] [address] | | | | + + + + + + + + | Specimen | + + | Blood specimen | | (specimen) | + + + +---------+ + + | Performing | Address | City/State/Zipcode | Phone Number | | Organization | | | | + +---------+ + + | EXTERNAL LAB | | | | + +---------+ + + Culture, Blood (04/13/2019 7:22 PM PDT) + + | Specimen | + + | Blood specimen | | (specimen) | + + + + + | Narrative | Performed At | + + + | Specimen Description BLOOD, LINE DRAW SPECIAL | EXTERNAL LAB | | REQUESTS CENTRAL CULTURE | | | NO GROWTH 6 DAYS | | + + + + +---------+ + + | Performing | Address | City/State/Zipcode | Phone Number | | Organization | | | | + +---------+ + + | EXTERNAL LAB | | | | + +---------+ + + Lactic Acid (04/13/2019 7:22 PM PDT) + + + + + + | Component | Value | Ref Range | Performed | Pathologist | | | | | At | Signature | + + + + + + | Lactate | 1.9Comment: Testing | 0.4 - 2.0 | EXTERNAL | | | | performed at [facility];[address] | mmol/L | LAB | | | | [address];[place] | | | | | | [address] | | | | + + + + + + + + | Specimen | + + | | + + + +---------+ + + | Performing | Address | City/State/Zipcode | Phone Number | | Organization | | | | + +---------+ + + | EXTERNAL LAB | | | | + +---------+ + + Procalcitonin (04/13/2019 7:22 PM PDT) + + + + + + | Component | Value | Ref Range | Performed | Pathologist | | | | | At | Signature | + + + + + + | PROCALCITON | 16.04 (H)Comment: | ng/mL | EXTERNAL | | | IN | INTERPRETIVE | | LAB | | | | INFORMATION: | | | | | | PROCALCITONIN PCT <= | | | | | | 0.5 ng/mL: Low risk | | | | | | for progression to | | | | | | severe systemic | | | | | | bacterial infection | | | | | | (severe sepsis/septic | | | | | | shock). Does not | | | | | | exclude an infection, | | | | | | because localized | | | | | | infections may be | | | | | | associated with such low | | | | | | levels. If PCT is | | | | | | measured very early | | | | | | after bacterial | | | | | | challenge (usually <6 | | | | | | hours), results may | | | | | | still be low and | | | | | | should re-assess PCT | | | | | | 6-24 hours later. PCT | | | | | | >0.5 and <= 2 ng/mL: | | | | | | Moderate risk for | | | | | | progression to severe | | | | | | systemic infection | | | | | | (severe sepsis/septic | | | | | | shock). Other | | | | | | conditions are known | | | | | | to elevate PCT, patient | | | | | | should be closely | | | | | | monitored both | | | | | | clinically and by | | | | | | re-assessing PCT | | | | | | within 6-24 hours. PCT > | | | | | | 2 ng/mL: High | | | | | | likelihood for | | | | | | progression to severe | | | | | | systemic bacterial | | | | | | infection (severe | | | | | | sepsis/septic shock). | | | | | | PCT >= 10 ng/mL: | | | | | | High likelihood of | | | | | | severe sepsis or septic | | | | | | shock.Testing performed | | | | | | at [facility];[address] [place] [address] | | | | | | [facility];[place] [address] | | | | + + + + + + + + | Specimen | + + | | + + + +---------+ + + | Performing | Address | City/State/Zipcode | Phone Number | | Organization | | | | + +---------+ + + | EXTERNAL LAB | | | | + +---------+ + + PATHOLOGY CONSULT REQUEST (04/13/2019 7:22 PM PDT) + + + + + + | Component | Value | Ref Range | Performed | Pathologist | | | | | At | Signature | + + + + + + | Pathologist | Comment: Review of CBC | | EXTERNAL | | | Review 1 | collected 04/13/2019 at | | LAB | | | | 19:22. I agree with the | | | | | | automated cell counts. | | | | | | The presence of | | | | | | leukocytosis, marked | | | | | | neutrophilia, and mild | | | | | | thrombophilia are | | | | | | confirmed. The | | | | | | neutrophils show a mild | | | | | | left shift with mild | | | | | | toxic changes. No | | | | | | circulating blasts or | | | | | | other cells suspicious | | | | | | for a neoplastic process | | | | | | are identified. | | | | | | Reactive appearing | | | | | | lymphocytes and | | | | | | monocytes are present, | | | | | | suggestive of a reactive | | | | | | process. There are no | | | | | | schistocytes or other | | | | | | evidence of peripheral | | | | | | destruction. The | | | | | | platelets are mildly | | | | | | increased in number. No | | | | | | platelet clumps are | | | | | | seen. The features are | | | | | | consistent with the | | | | | | patient's history of | | | | | | sepsis. Dr. Morteza Patrick | | | | | | 04/17/2019 DDF:cahTesting | | | | | | performed at [facility];[address] | | | | | | [facility];[place], [place] | | | | | | [address] | | | | + + + + + + + + | Specimen | + + | | + + + +---------+ + + | Performing | Address | City/State/Zipcode | Phone Number | | Organization | | | | + +---------+ + + | EXTERNAL LAB | | | | + +---------+ + + Urinalysis, Microscopic Only (04/13/2019 7:22 PM PDT) + + + + + + | Component | Value | Ref Range | Performed | Pathologist | | | | | At | Signature | + + + + + + | WBC, UA | >100Comment: | 0 - 5 /hpf | EXTERNAL | | | | | | LAB | | + + + + + + | RBC, UA | 3-5 | 0 - 5 /hpf | EXTERNAL | | | | | | LAB | | + + + + + + | Epithelial | 26-49 | /lpf | EXTERNAL | | | Cells | | | LAB | | + + + + + + | Bacteria, | 1+ (A) | | EXTERNAL | | | UA | | | LAB | | + + + + + + | MUCUS UA | 1+ | | EXTERNAL | | | | | | LAB | | + + + + + + | CASTS | SEE BELOWComment: 0-2 | /lpf | EXTERNAL | | | | HYALINE CASTTesting | | LAB | | | | performed at [facility], [address] | | | | | [address], | | | | | | [place] [address] | | | | + + + + + + + + | Specimen | + + | | + + + +---------+ + + | Performing | Address | City/State/Zipcode | Phone Number | | Organization | | | | + +---------+ + + | EXTERNAL LAB | | | | + +---------+ + + Urinalysis with Microscopic if Indicated (04/13/2019 7:22 PM PDT) + + + + + + | Component | Value | Ref Range | Performed | Pathologist | | | | | At | Signature | + + + + + + | Color | JESSICA | | EXTERNAL | | | | | | LAB | | + + + + + + | Clarity | CLOUDY | | EXTERNAL | | | | | | LAB | | + + + + + + | Specific | 1.019 | 1.002 - 1.030 | EXTERNAL | | | [place] | | | LAB | | + + + + + + | Leukocyte | LARGE (A)Comment: | | EXTERNAL | | | Esterase, | | | LAB | | | Urine | | | | | + + + + + + | Nitrite, | NEGATIVE | | EXTERNAL | | | Urine | | | LAB | | + + + + + + | Urobilinoge | 2.0 (H) | mg/dL | EXTERNAL | | | n, Urine | | | LAB | | + + + + + + | Protein, | NEGATIVE | mg/dL | EXTERNAL | | | Urine | | | LAB | | + + + + + + | pH, Urine | 5.0 | 5.0 - 8.0 | EXTERNAL | | | | | | LAB | | + + + + + + | Blood, | SMALL (A) | | EXTERNAL | | | Urine | | | LAB | | + + + + + + | Ketones | NEGATIVE | mg/dL | EXTERNAL | | | | | | LAB | | + + + + + + | Bilirubin, | NEGATIVE | | EXTERNAL | | | Urine | | | LAB | | + + + + + + | Glucose, | NEGATIVEComment: Testing | mg/dL | EXTERNAL | | | Urine | performed at [facility], [address] | | LAB | | | | [address], | | | | | | [place] [address] | | | | + + + [...] + +---------+ + + External Lab: CBC (04/13/2019 7:22 PM PDT) + + + + + + | Component | Value | Ref Range | Performed | Pathologist | | | | | At | Signature | + + + + + + | WBC | 45.95 (HH)Comment: | 3.80 - 11.00 | EXTERNAL | | | | CALLED NURSING UNITREAD | K/uL | LAB | | | | BACK RESULTS | | | | | | VERIFIEDCALLED TO MAYE | | | | | | H. IN 10RP AT 2000 | | | | | | | | | | + + + + + + | RED CELL | 2.97 (L) | 3.70 - 5.10 | EXTERNAL | | | COUNT | | M/uL | LAB | | + + + + + + | Hgb | 7.8 (L) | 11.3 - 15.5 | EXTERNAL | | | | | g/dL | LAB | | + + + + + + | Hematocrit, | 25.3 (L) | 34.0 - 46.0 % | EXTERNAL | | | POC | | | LAB | | + + + + + + | MCV | 85.1 | 80.0 - 100.0 fl | EXTERNAL | | | | | | LAB | | + + + + + + | MCH | 26.1 (L) | 27.0 - 34.0 pg | EXTERNAL | | | | | | LAB | | + + + + + + | MCHC | 30.7 (L) | 32.0 - 35.5 | EXTERNAL | | | | | g/dL | LAB | | + + + + + + | RDW-CV | 48.6 | 37 - 53 fl | EXTERNAL | | | | | | LAB | | + + + + + + | Platelet | 445 (H) | 150 - 400 K/uL | EXTERNAL | | | Count | | | LAB | | | Plasma | | | | | + + + + + + | MPV | 8.0 | fl | EXTERNAL | | | | | | LAB | | + + + + + + | Differentia | MANUAL | | EXTERNAL | | | l Type | | | LAB | | + + + + + + | Segmented | 74 | % | EXTERNAL | | | Neutrophils | | | LAB | | | Manual | | | | | + + + + + + | % Bands | 14 | % | EXTERNAL | | | | | | LAB | | + + + + + + | % | 1 | % | EXTERNAL | | | Metamyelocy | | | LAB | | | oliverio | | | | | + + + + + + | % | 5 | % | EXTERNAL | | | Myelocytes | | | LAB | | + + + + + + | Lymphocytes | 4 | % | EXTERNAL | | | Manual | | | LAB | | + + + + + + | Monocytes | 2 | % | EXTERNAL | | | Manual | | | LAB | | + + + + + + | Absolute | 34.00 (H) | 1.90 - 7.40 | EXTERNAL | | | Neutrophils | | K/uL | LAB | | + + + + + + | Bands | 6.43 (H) | 0.00 - 0.20 | EXTERNAL | | | Manual | | K/uL | LAB | | + + + + + + | Absolute | 0.46 (H) | K/uL | EXTERNAL | | | Metamyelocy | | | LAB | | | oliverio | | | | | + + + + + + | Absolute | 2.30 (H) | K/uL | EXTERNAL | | | Myelocytes | | | LAB | | + + + + + + | Absolute | 1.84 | 1.00 - 3.90 | EXTERNAL | | | Lymphocytes | | K/uL | LAB | | + + + + + + | Absolute | 0.92 (H) | 0.00 - 0.80 | EXTERNAL | | | Monocytes | | K/uL | LAB | | + + + + + + | Platelet | INCREASED | | EXTERNAL | | | Estimate | | | LAB | | + + + + + + | RBC | 2+Comment: HYPONORMAL | | EXTERNAL | | | Morphology | PLT MORPHTesting | | LAB | | | | performed at [facility];[address] | | | | | | [address];[place], [place] | | | | | | [address] | | | | | | | [...] | | + +---------+ + + Phosphorus (04/13/2019 7:22 PM PDT) + + + + + + | Component | Value | Ref Range | Performed | Pathologist | | | | | At | Signature | + + + + + + | PHOSPHORUS | 5.6 (H)Comment: Testing | 2.3 - 4.8 mg/dL | EXTERNAL | | | | performed at [facility] | | LAB | | | | [address];[place], [place] | | | | | | [address] | | | | + + + + + + + + | Specimen | + + | Blood specimen | | (specimen) | + + + +---------+ + + | Performing | Address | City/State/Zipcode | Phone Number | | Organization | | | | + +---------+ + + | EXTERNAL LAB | | | | + +---------+ + + Magnesium (04/13/2019 7:22 PM PDT) + + + + + + | Component | Value | Ref Range | Performed | Pathologist | | | | | At | Signature | + + + + + + | Magnesium | 2.2Comment: Testing | 1.7 - 2.4 mg/dL | EXTERNAL | | | | performed at [facility];[address] | | LAB | | | | [address];[place], [place] | | | | | | [address] | | | | + + + [...] + +---------+ + + Comprehensive Metabolic Panel (04/13/2019 7:22 PM PDT) + + + + + + | Component | Value | Ref Range | Performed | Pathologist | | | | | At | Signature | + + + + + + | Na | 127 (L) | 135 - 145 | EXTERNAL | | | | | mmol/L | LAB | | + + + + + + | K | 6.0 (H) | 3.5 - 4.9 | EXTERNAL | | | | | mmol/L | LAB | | + + + + + + | Cl | 97 (L) | 99 - 109 mmol/L | EXTERNAL | | | | | | LAB | | + + + + + + | CO2 | 16 (L) | 23 - 32 mmol/L | EXTERNAL | | | | | | LAB | | + + + + + + | Anion Gap | 20 | 5 - 20 mmol/L | EXTERNAL | | | | | | LAB | | + + + + + + | Glucose, | 410 (H) | 65 - 99 mg/dL | EXTERNAL | | | Fasting | | | LAB | | + + + + + + | BUN | 86 (H) | 8 - 25 mg/dL | EXTERNAL | | | | | | LAB | | + + + + + + | Creatinine | 3.68 (H) | 0.50 - 1.00 | EXTERNAL | | | | | mg/dL | LAB | | + + + + + + | BUN/Creatin | 23 | | EXTERNAL | | | ine Ratio | | | LAB | | + + + + + + | Calcium | 6.6 (L) | 8.5 - 10.5 | EXTERNAL | | | | | mg/dL | LAB | | + + + + + + | Protein, | 5.7 (L) | 6.3 - 8.2 g/dL | EXTERNAL | | | Total | | | LAB | | + + + + + + | Albumin | 2.6 (L) | 3.6 - 5.0 g/dL | EXTERNAL | | | | | | LAB | | + + + + + + | Globulin | 3.1 | 1.3 - 4.9 g/dL | EXTERNAL | | | | | | LAB | | + + + + + + | A/G Ratio | 0.8 (L) | 1.0 - 2.4 | EXTERNAL | | | | | | LAB | | + + + + + + | Bilirubin | 0.9 | 0.1 - 1.5 mg/dL | EXTERNAL | | | Total | | | LAB | | + + + + + + | ALP, | 291 (H) | 35 - 115 U/L | EXTERNAL | | | External | | | LAB | | + + + + + + | AST | 50 (H) | 10 - 45 U/L | EXTERNAL | | | | | | LAB | | + + + + + + | ALT | 32 | 10 - 65 U/L | EXTERNAL | | | | | | LAB | | + + + + + + | Estimated | 13 (L)Comment: GFR <60: | mL/min/1.73m2 | EXTERNAL [...] BY | | | | | | 1.210.This eGFR is | | | | | | calculated using the | | | | | | MDRD IDMS traceable | | | | | | equation.Testing | | | | | | performed at [facility];[address] | | | | | | [facility];[place], [place] | | | | | | [address] | | | | + + + + + + + + | Specimen | + + | Blood specimen | | (specimen) | + + + +---------+ + + | Performing | Address | City/State/Zipcode | Phone Number | | Organization | | | | + +---------+ + + | EXTERNAL LAB | | | | + +---------+ + + POC Glucose (04/13/2019 7:08 PM PDT) + + + + + + | Component | Value | Ref Range | Performed | Pathologist | | | | | At | Signature | + + + + + + | Glucose, | >400 (H)Comment: Testing | 65 - 99 mg/dL | EXTERNAL | | | Fingerstick | performed at [facility];[address] | | LAB | | | | [address];[place] | | | | | | [address] | | | | + + + + + + + + | Specimen | + + | | + + + +---------+ + + | Performing | Address | City/State/Zipcode | Phone Number | | Organization | | | | + +---------+ + + | EXTERNAL LAB | | | | + +---------+ + + MRSA NAAT (04/13/2019 6:22 PM PDT) + + | Specimen | + + | | + + + + + | Narrative | Performed At | + + + | SOURCE NARES(NOSE) MRSA | EXTERNAL LAB | | PCR NEGATIVE Testing | | | performed at [facility];[address] [place] [address];[place] [address] | | + + + + +---------+ + + | Performing | Address | City/State/Zipcode | Phone Number | | Organization | | | | + +---------+ + + | EXTERNAL LAB | | | | + +---------+ + + documented in this encounter Visit Diagnoses + + | Diagnosis | + + | Septic shock (HCC) | + + | Moderate episode of recurrent major depressive disorder (HCC) | + + | Type 2 diabetes mellitus with diabetic nephropathy, 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
--- OUTSIDE RECORDS SUMMARY | ~2019-10-02 | XMS | Encounter Summary ---
Demographics + + + | Address | [address] | | | [place] [address] | + + + | Home Phone | | + + + | Preferred Language | Unknown | + + + | Marital Status | Single | + + + | Hoahaoism Affiliation | [id number] | + + + | Race | Unknown | + + + | Ethnic Group | Unknown | + + + Author + + + | Author | [facility] | | | and [place] | + + + | Organization | [facility] | | | and [place] | + + + | Address | Unknown | + + + | Phone | Unavailable | + + + Support + + + + + | Name | Relationship | Address | Phone | + + + + + | Kyaw Woodson | ECON | [place], [place] | | + + + + + | Barbara Cabrera | ECON | Unknown | | + + + + + | Dimple Hathaway | ECON | Unknown | | + + + + + Care Team Providers + +------+ + | Care Correctional Food Service Supervisor Name | Role | Phone | + +------+ + | Daniel Land NP | PCP | | + +------+ + Encounter Details +--------+ + + + + | Date | Type | Department | Care Team | Description | +--------+ + + + + | 06/10/ | Orders Only | [facility] | Conversion | | | 2017 | | NEPHROLOGY KARSTEN | Transaction, | | | | | [address] [facility] [address] | Provider Unknown | | | | | [address] [place] | | | | | | [address] | (Fax) | | | | | [phone] | | | +--------+ + + + [...] [address] | | | | | | [facility] | | | | | | [place] | | | | | | [address] | | | | | | | [...] [address] | | | | | | [place] [address] | | | | | | [phone] | | | | | | | | +--------+ + + + + | 11/25/ | Office | Nephrology | Kei Arthur MD | | | 2019 | Visit | | [address] [facility] | | | | | | [address] [place] | | | | | | [address] | | | | | | | | +--------+ + + + + documented as of this encounter Procedures + +--------+ + + + | Procedure Name | Priori | Date/Time | Associated Diagnosis | Comments | | | ty | | | | + +--------+ + + + | BASIC METABOLIC | Routin | 06/10/2017 | | Results for this | | PANEL | e | 8:35 AM | | procedure are in the | | | | PDT | | results section. | + +--------+ + + + documented in this encounter Results Basic Metabolic Panel (06/10/2017 8:35 AM PDT) + + + + + + | Component | Value | Ref Range | Performed | Pathologist | | | | | At | Signature | + + + + + + | Glucose, | 215 (A) | 70 - 100 mg/dL | EXTERNAL | | | Fasting | | | LAB | | + + + + + + | BUN | 47 (A) | 6 - 23 mg/dL | EXTERNAL | | | | | | LAB | | + + + + + + | Creatinine | 2.62 (A) | 0.60 - 1.35 | EXTERNAL | | | | | mg/dL | LAB | | + + + + + + | BUN/Creatin | 17.9 | 6.0 - 28.6 | EXTERNAL | | | ine Ratio | | | LAB | | + + + + + + | Calcium | 9.1 | 8.4 - 10.2 | EXTERNAL | [...]
--- OUTSIDE RECORDS SUMMARY | ~2019-10-02 | XMS | Encounter Summary ---
Demographics + + + | Address | [address] | | | [place] [address] | + + + | Home Phone | | + + + | Preferred Language | Unknown | + + + | Marital Status | Single | + + + | Buddhism Affiliation | UNK | + + + | Race | White | + + + | Ethnic Group | Not or | + + + Author + + + | Author | [facility] | + + + | Organization | [facility] | + + + | Address | Unknown | + + + | Phone | Unavailable | + + + Support + + +---------+ + | Name | Relationship | Address | Phone | + + +---------+ + | Valentine Qiu | ECON | Unknown | | + + +---------+ + Care Team Providers + +------+ + | Care Wall Taper Name | Role | Phone | + +------+ + | Jennyfer Gresham MD | PCP | | + +------+ + Encounter Details +--------+ + + + + | Date | Type | Department | Care Team | Description | +--------+ + + + + | 09/07/ | Documentati | [facility] | Danielito Crockett MD,PhD | | | 2018 | on | [facility] | [address] | | | | | at [place] [address] | Carrie Sanabria | | | | | [facility] | [place], [place] | | | | | Mailcode: MICHAEL | [address] | | | | | [place] [address] | [phone] | | | | | [phone] | | | +--------+ + + + [...]
--- OUTSIDE RECORDS SUMMARY | ~2019-10-02 | XMS | Encounter Summary ---
Demographics + + + | Address | [address] | | | [place] [address] | + + + | Home Phone [...] | Organization | [facility] | | | and [place] | + + + | Address | Unknown | + + + | Phone | Unavailable | + + + Support + + + + + | Name | Relationship | Address | Phone | + + + + + | Kyaw Woodson | ECON | [place], [place] | | + + + + + | Barbara Cabrera | ECON | Unknown | | + + + + + | Dimple Hathaway | ECON | Unknown | | + + + + + Care Team Providers + +------+ + | Care Training Director Name | Role | Phone | + +------+ + PCP | Unavailable | + +------+ + Encounter Details +--------+ + + + + | Date | Type | Department | Care Team | Description | +--------+ + + + + | 05/16/ | Orders Only | [facility] | Kei Arthur MD | Essential | | 2019 | | [place]PHROLOGY [place] | [address] [place] | hypertension, benign | | | | [address] [place] | [address] [place], [place] | (Primary Dx); CKD | | | | [address] [place], [place] | [address] | (chronic kidney | | | | [address] | | disease) stage 3, | | | | [phone] | | GFR 30-59 ml/min | | | | | | (HCC); Persistent | | | | | | proteinuria; | | | | | | Secondary | | | | | | hyperparathyroidism | | | | | | (HCC) | +--------+ + + + + Social [...] [place] | | | | | | [address] | | | | | | | [...] | | | | | [place] [address] | | | | | | [phone] | | | | | | | | +--------+ + + + + | 11/25/ | Office | Nephrology | Kei Arthur MD | | | 2019 | Visit | | [address] [facility] | | | | | | [address] [place], [place] | | | | | | [address] | | | | | | | | +--------+ + + + + + +------+--------+ + + | Name | Type | Priori | Associated Diagnoses | Order Schedule | | | | ty | | | + +------+--------+ + + | Renal Function Panel | Lab | Routin | Essential | Expected: | | | | e | hypertension, benign | 06/27/2019, Expires: | | | | | CKD (chronic | 05/16/2020 | | | | | kidney disease) | | | | | | stage 3, GFR 30-59 | | | | | | ml/min ([facility]) | | | | | | Persistent | | | | | | proteinuria | | + +------+--------+ + + | CBC with | Lab | Routin | Essential | Expected: | | Differential | | e | hypertension, benign | 06/27/2019, Expires: | | | | | CKD (chronic | 05/16/2020 | | | | | kidney disease) | | | | | | stage 3, GFR 30-59 | | | | | | ml/min (HCC) | | | | | | Persistent | | | | | | proteinuria | | + +------+--------+ + + | Renal Function Panel | Lab | Routin | Essential | Expected: | | | | e | hypertension, benign | 08/16/2019, Expires: | | | | | CKD (chronic | 05/16/2020 | | | | | kidney disease) | | | | | | stage 3, GFR 30-59 | | | | | | ml/min (HCC) | | | | | | Persistent | | | | | | proteinuria | | + +------+--------+ + + | CBC with | Lab | Routin | Essential | Expected: | | Differential | | e | hypertension, benign | 08/16/2019, Expires: | | | | | CKD (chronic | 05/16/2020 | | | | | kidney disease) | | | | | | stage 3, GFR 30-59 | | | | | | ml/min (HCC) | | | | | | Persistent | | | | | | proteinuria | | + +------+--------+ + + | Uric Acid | Lab | Routin | Essential | Expected: | | | | e | hypertension, benign | 08/16/2019, Expires: | | | | | CKD (chronic | 05/16/2020 | | | | | kidney disease) | | | | | | stage 3, GFR 30-59 | | | | | | ml/min (HCC) | | | | | | Persistent | | | | | | proteinuria | | + +------+--------+ + + | Parathyroid Hormone, | Lab | Routin | Essential | Expected: | | Intact | | e | hypertension, benign | 08/16/2019, Expires: | | | | | CKD (chronic | 05/16/2020 | | | | | kidney disease) | | | | | | stage 3, GFR 30-59 | | | | | | ml/min ([facility]) | | | | | | Persistent | | | | | | proteinuria | | | | | | Secondary | | | | | | hyperparathyroidism | | | | | | (HCC) | | + +------+--------+ + + | Protein/Creatinine | Lab | Routin | Essential | Expected: | | Ratio, Urine | | e | hypertension, benign | 08/16/2019, Expires: | | | | | CKD (chronic | 05/16/2020 | | | | | kidney disease) | | | | | | stage 3, GFR 30-59 | | | | | | ml/min ([facility]) | | | | | | Persistent | | | | | | proteinuria | | + +------+--------+ + + documented as of this encounter Visit Diagnoses + + | Diagnosis | + + | Essential hypertension, benign - Primary | + + | CKD (chronic kidney disease) stage 3, GFR 30-59 ml/min ([facility]) Chronic kidney disease, | | Stage III (moderate) | + + | Persistent proteinuria Proteinuria | + + | Secondary hyperparathyroidism (HCC) Secondary hyperparathyroidism (of renal origin) | + + documented in this encounter"
--- OUTSIDE RECORDS SUMMARY | ~2019-10-02 | XMS | Encounter Summary ---
Demographics + + + | Address | [address] | | | [place] [address] | + + + | Home Phone [...] Author + + + | Author | [facility] | | | and [place] | + + + | Organization | [facility] | | | and [place] | + + + | Address | Unknown | + + + | Phone | Unavailable | + + + Support + + + + + | Name | Relationship | Address | Phone | + + + + + | Kyaw Woodson | ECON | [place], [place] | | + + + + + | Barbara Cabrera | ECON | Unknown | | + + + + + | Dimple Hathaway | ECON | Unknown | | + + + + + Care Team Providers + +------+ + | Care Backend Developer Name | Role | Phone | + +------+ + | Daniel Land NP | PCP | | + +------+ + Encounter Details +--------+ + + + + | Date | Type | Department | Care Team | Description | +--------+ + + + + | 08/17/ | Orders Only | [facility] | Kei Arthur MD | | | 2016 | | [facility]OLOGY [facility] | [address] [place] | | | | | [address] [place] | [address] [place], [place] | | | | | [address] [place], [place] | [id number] | | | | | [address] | | | | | | [phone] | | | +--------+ + + + [...] [address] | | | | | | [facility] | | | | | | [place] | | | | | | [address] | | | | | | | [...] | | | | | | [place] [address] | | | | | | [phone] | | | | | | | | +--------+ + + + + | 11/25/ | Office | Nephrology | Kei Arthur MD | | | 2019 | Visit | | [address] | | | | | | [address] [place] | | | | | | [address] | | | | | | | [...] | | | LAB | | | [place] | | | | | + + [...]
--- OUTSIDE RECORDS SUMMARY | ~2019-10-02 | XMS | Encounter Summary ---
Demographics + + + | Address | [address] | | | [place] [address] | + + + | Home Phone [...] | [facility] | | | and [place] | + + + | Address | Unknown | + + + | Phone | Unavailable | + + + Support + + + + + | Name | Relationship | Address | Phone | + + + + + | Kyaw Woodson | ECON | [place], [place] | | + + + + + | Barbara Cabrera | ECON | Unknown | | + + + + + | Dimple Hathaway | ECON | Unknown | | + + + + + Care Team Providers + +------+ + | Care Gi Asst Name | Role | Phone | + +------+ + | Daniel Land NP | PCP | | + +------+ + Encounter Details +--------+ + + + + | Date | Type | Department | Care Team | Description | +--------+ + + + + | 01/21/ | Orders Only | [facility] | Conversion | | | 2016 | | NEPRHOLOGY [place] | Transaction, | | | | | [address] | Provider Unknown | | | | | [address] [place] | [phone] | | | | | [address] | | | | | | [phone] | | | +--------+ + + + [...] | | | | | [address] [facility] | | | | | | [place] | | | | | | [address] | | | | | | | [...] | | | | | [place] [address] | | | | | | [phone] | | | | | | | | +--------+ + + + + | 11/25/ | Office | Nephrology | Kei Arthur MD | | | 2019 | Visit | | [address] [facility] | | | | | | [address] [place] | | | | | | [address] | | | | | | | | +--------+ + + + + documented as of this encounter Procedures + +--------+ + + + | Procedure Name | Priori | Date/Time | Associated Diagnosis | Comments | | | ty | | | | + +--------+ + + + | COMPREHENSIVE | Routin | 01/22/2016 | | Results for this | | METABOLIC PANEL | e | 12:00 AM | | procedure are in the | | | | PDT | | results section. | + +--------+ + + + documented in this encounter Results Comprehensive Metabolic Panel (01/22/2016 12:00 AM PDT) + + + + + + | Component | Value | Ref Range | Performed | Pathologist | | | | | At | Signature | + + + + + + | Glucose, | 138 (A) | 70 - 100 mg/dL | [...] + + + + | BUN/Creatin | 11.7 | 6.0 - 28.6 | EXTERNAL | | | ine Ratio | | | LAB | | + + + + + + | Calcium | 9.8 | 8.4 - 10.2 | EXTERNAL | | | | | mg/dL | LAB | | + + + + + + | Protein, | | g/dL | EXTERNAL | | | Total [...] + + + + | Bilirubin | 0.6 | 0.0 - 1.2 mg/dL | EXTERNAL | | | Total | | | LAB | | + + + + + + | ALP, | 57 | 30 - 128 | EXTERNAL | | | External | | | LAB | | + + + + + + | ALT | 10 | 7 - 52 U/L | EXTERNAL | | | | | | LAB | | + + + + + + | AST | 22 | 13 - 39 U/L | EXTERNAL [...] + + + + | Cl | 95 | 95 - 112 mmol/L | EXTERNAL | | | | | | LAB | | + + + + + + | CO2 | 25 | 19 - 31 mmol/L | EXTERNAL | | | | | | LAB | | + + + + + + | Anion Gap | 18.4 | 7 - 21 mmol/L | EXTERNAL [...]
--- OUTSIDE RECORDS SUMMARY | ~2019-10-02 | XMS | Encounter Summary ---
Demographics + + + | Address | [address] | | | [place] [address] | + + + | Home Phone [...] Organization | [facility] [...] Team Providers + +------+ + | Care Review Specialist Name | Role | Phone | + +------+ + | Jennyfer Gresham MD | PCP | | + +------+ + Reason for Visit +--------+ + | Reason | Comments | +--------+ + | Other | Appointment reminder call | +--------+ + Encounter Details +--------+ + + + + | Date | Type | Department | Care Team | Description | +--------+ + + + + | 08/10/ | Telephone | [facility] | Malvin, | Other (Appointment | | 2018 | | NEPHROLOGY [place] | Janes Acevedo | reminder call) | | | | [address] | 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
--- OUTSIDE RECORDS SUMMARY | ~2019-10-02 | XMS | Encounter Summary ---
Demographics + + + | Address | [address] | | | [place] [address] | + + + | Home Phone | | + + + | Preferred Language | Unknown | + + + | Marital Status | Single | + + + | Mandaeism Affiliation | UNK | + + + | Race | White | + + + | Ethnic Group | Not or | + + + Author + + + | Author | [facility] | + + + | Organization | [facility] | + + + | Address | Unknown | + + + | Phone | Unavailable | + + + Support + + +---------+ + | Name | Relationship | Address | Phone | + + +---------+ + | Valentine Qiu | ECON | Unknown | | + + +---------+ + Care Team Providers + +------+ + | Care Acid Bath Mixer Name | Role | Phone | + [...] | | 2018 | Only | [facility] | [phone] | | | | | [place] | | | | | | [address] | | | +--------+ + + + [...] | | | | | Copy To: [facility] | | | | [facility] Copy To: | | | | | | ADITYA MARTIN D.O. | | | | | | Copy Sent to HERMINIO | | | | | | KATRIN Quevedo on 09/22/17. | | | | | | [facility] Copy | | | | | | Sent to [facility] | | | | | | [facility] [...] + | Testing Performed at: [facility]: [id number] - [address] | [facility] | | [place] [address] | HOSPITAL | + + + + +---------+ + + | Performing | Address | City/State/Zipcode | Phone Number | | Organization | | | | + +---------+ + + | [facility] | | | [phone] | | [facility] | | | | + +---------+ + + | [facility] | | [place] | [phone] | | HOSPITAL | | | | + +---------+ + + documented in this encounter Visit Diagnoses Not on filedocumented in this encounter"
--- OUTSIDE RECORDS SUMMARY | ~2019-10-02 | XMS | Encounter Summary ---
Demographics + + + | Address | [address] | | | [place] [address] | + + + | Home Phone [...] | Organization | [facility] | | | and [place] | + + + | Address | Unknown | + + + | Phone | Unavailable | + + + Support + + + + + | Name | Relationship | Address | Phone | + + + + + | Kyaw Woodson | ECON | [place], [place] | | + + + + + | Barbara Cabrera | ECON | Unknown | | + + + + + | Dimple Hathaway | ECON | Unknown | | + + + + + Care Team Providers + +------+ + | Care Advertising Account Representative Name | Role | Phone | + +------+ + | No, Physician | PCP | Unavailable | + +------+ + Reason for Visit + + + | Reason | Comments | + + + | Referral | Needs to speak w/ Electrocardiograph Repairer | + + + Encounter Details +--------+ + + + + | Date | Type | Department | Care Team | Description | +--------+ + + + + | 05/10/ | Telephone | [facility] | Waldemar Smith, | Referral (Needs to | | 2019 | | ENDOCRINOLOGY [address] | speak w/ Referral | | | | [address] | [place], | Coordinator) | | | | [place] | [place] [address] | | | | | [address] | [phone] | | | | | [phone] | | | +--------+ + + + [...] [place] | | | | | | [address] | | | | | | | [...] | | | | | [place] [address] | | | | | | [phone] | | | | | | | | +--------+ + + + + | 11/25/ | Office | Nephrology | Kei Arthur MD | | | 2020 | Visit | | [address] [facility] | | | | | | [address] [place] | | | | | | [address] | | | | | | | | +--------+ + + + + documented as of this encounter Visit Diagnoses Not on filedocumented in this encounter"
--- OUTSIDE RECORDS SUMMARY | ~2019-10-02 | XMS | Encounter Summary ---
Demographics + + + | Address | [address] | | | [place] [address] | + + + | Home Phone [...] | Organization | [facility] | | | and [place] | + + + | Address | Unknown | + + + | Phone | Unavailable | + + + Support + + + + + | Name | Relationship | Address | Phone | + + + + + | Kyaw Woodson | ECON | [place], [place] | | + + + + + | Barbara Cabrera | ECON | Unknown | | + + + + + | Dimple Hathaway | ECON | Unknown | | + + + + + Care Team Providers + +------+ + | Care Marketing Community Liaison Name | Role | Phone | + +------+ + | Daniel Land NP | PCP | | + +------+ + Encounter Details +--------+ + + + + | Date | Type | Department | Care Team | Description | +--------+ + + + + | 07/01/ | Orders Only | [facility] | Conversion | | | 2017 | | NEPRHOLOGY [place] | Transaction, | | | | | [address] | Provider Unknown | | | | | [address] [place] | [phone] | | | | | [address] | | | | | | [phone] | | | +--------+ + + + [...] | | | | | [address] | | | | | | [place] | | | | | | [address] | | | | | | | [...] | | | | | [place] [address] | | | | | | [phone] | | | | | | | | +--------+ + + + + | 11/25/ | Office | Nephrology | Kei Arthur MD | | | 2019 | Visit | | [address] [facility] | | | | | | [address] [place] | | | | | | [address] | | | | | | | | +--------+ + + + + documented as of this encounter Procedures + +--------+ + + + | Procedure Name | Priori | Date/Time | Associated Diagnosis | Comments | | | ty | | | | + +--------+ + + + | EXTERNAL LAB: CBC | Routin | 07/01/2017 | | Results for this | | | e | 12:00 AM | | procedure are in the | | | | PDT | | results section. | + +--------+ + + + | URINALYSIS WITH | Routin | 07/01/2017 | | Results for this | | MICROSCOPIC WITH | e | 12:00 AM | | procedure are in the | | CULTURE IF INDICATED | | PDT | | results section. | + +--------+ + + + | PARATHYROID HORMONE, | Routin | 07/01/2017 | | Results for this | | INTACT AND CALCIUM | e | 12:00 AM | | procedure are in the | | | | PDT | | results section. | + +--------+ + + + | URIC ACID | Routin | 07/01/2017 | | Results for this | | | e | 12:00 AM | | procedure are in the | | | | PDT | | results section. | + +--------+ + + + | MAGNESIUM | Routin | 07/01/2017 | | Results for this | | | e | 12:00 AM | | procedure are in the | | | | PDT | | results section. | + +--------+ + + + | RENAL FUNCTION PANEL | Routin | 07/01/2017 | | Results for this | | | e | 12:00 AM | | procedure are in the | | | | PDT | | results section. | + +--------+ + + + documented in this encounter Results Urinalysis with Microscopic with Culture if Indicated (07/01/2017 12:00 AM PDT) + + + + [...] + + + + | Total | neg | | EXTERNAL | | | Protein [...] + + + + | Ketones | neg | | EXTERNAL | | | | [...] + + + | WBC, UA | 2 | 0 - 4 | EXTERNAL | | | | | | LAB | | + + + + + + | RBC, UA | 0 | 0 - 4 | EXTERNAL | | | | | | LAB | | + + + + + + | Epithelial | neg | | EXTERNAL | | | Cells | | | LAB | | + + + + + + | Bacteria, | None Seen | | EXTERNAL | | | UA | | | LAB | | + + + + + + | HYALINE | None Seen | | EXTERNAL | | | CASTS UA | | | LAB | | [...] + + Parathyroid Hormone, Intact and Calcium (07/01/2017 12:00 AM PDT) + + + + + + | Component | Value | Ref Range | Performed | Pathologist | | | | | At | Signature | + + + + + + | PTH Intact | 280.8 (A) | 15 - 65 | EXTERNAL [...] + +---------+ + + External Lab: CBC (07/01/2017 12:00 AM PDT) + + + + + + | Component | Value | Ref Range | Performed | Pathologist | | | | | At | Signature | + + + + + + | WBC | 9.2 | 4.5 - 11.0 10 | EXTERNAL | | | | | | LAB | | + + + + + + | RED CELL | 3.27 (A) | 3.8 - 5.1 10 | EXTERNAL | | | COUNT | | | LAB | | + + + + + + | Hgb | 9.9 (A) | 12.0 - 16.0 | EXTERNAL | | | | | g/dL | LAB | | + + + + + + | Hematocrit, | 29.9 (A) | 35 - 45 % | EXTERNAL | | | POC | | | LAB | | + + + + + + | MCV | 91.4 | 81 - 99 fL | EXTERNAL [...] + + + + | Platelet | 291 | 140 - 440 K/ L | EXTERNAL | | | Count | | | LAB | | | Plasma | | | | | + + + + + + | RDW-CV | 14.6 | 10.5 - 15.0 % | EXTERNAL [...] + + + | % Segmented | 70.4 | 39 - 80 % | EXTERNAL | | | | | | LAB | | | Neutrophils | | | | | + + + + + + | % | 20.6 (A) | 24 - 44 % | EXTERNAL | | | Lymphocytes | | | LAB | | + + + + + + | % Monocytes | 5.6 | 0 - 12 % | EXTERNAL | | | | | | LAB | | + + + + + + | % | 2.8 | 0 - 6 % | EXTERNAL | | | Eosinophils | | | LAB | | + + + + + + | % Basophils | 0.6 | 0 - 2 % | EXTERNAL [...] | + +---------+ + + Uric Acid (07/01/2017 12:00 AM PDT) + +---------+ + + + | Component | Value | Ref Range | Performed | Pathologist | | | | | At | Signature | + +---------+ + + + | Uric Acid | 8.5 (A) | 2.3 - 6.6 | EXTERNAL [...] | | + +---------+ + + Magnesium (07/01/2017 12:00 AM PDT) + +-------+ + + [...] + +---------+ + + Renal Function Panel (07/01/2017 12:00 AM PDT) + + + + + + | Component | Value | Ref Range | Performed | Pathologist | | | | | At | Signature | + + + + + + | Glucose, | 203 (A) | 70 - 100 mg/dL | EXTERNAL | | | Fasting | | | LAB | | + + + + + + | BUN | 59 (A) | 6 - 23 mg/dL | EXTERNAL | | | | | | LAB | | + + + + + + | Creatinine | 3.08 (A) | 0.60 - 1.35 | EXTERNAL [...] + + + | K | 5.2 (A) | 3.6 - 5.1 | EXTERNAL [...] | | | LAB | | | UKRAINIAN | | | | | + + + + + + | Phosphorus, | 4.6 | 2.5 - 5.0 | EXTERNAL | | | Inorganic | | | LAB | | + + + + + + | BUN/Creatin | 19.2 | 6.0 - 28.6 | EXTERNAL | | | ine Ratio | | | LAB | | + + + + + + | Calcium | 9.4 | 8.4 - 10.2 | EXTERNAL | | | | | mg/dL | LAB | | + + + + + + | Estimated | 16 | mg/dL | EXTERNAL | | | [...]
--- OUTSIDE RECORDS SUMMARY | ~2019-10-02 | XMS | Encounter Summary ---
Demographics + + + | Address | [address] | | | [place] [address] | + + + | Home Phone [...] | Organization | [facility] | | | and [place] | + + + | Address | Unknown | + + + | Phone | Unavailable | + + + Support + + + + + | Name | Relationship | Address | Phone | + + + + + | Kyaw Woodson | ECON | [place], [place] | | + + + + + | Barbara Cabrera | ECON | Unknown | | + + + + + | Dimple Hathaway | ECON | Unknown | | + + + + + Care Team Providers + +------+ + | Care Director Paid Media Name | Role | Phone | + +------+ + | Daniel Land NP | PCP | | + +------+ + Encounter Details +--------+ + + + + | Date | Type | Department | Care Team | Description | +--------+ + + + + | 12/10/ | Orders Only | [facility] | Kei Arthur MD | | | 2015 | | [facility] | [address] [place] | | | | | [address] [place] | [address] [place], [place] | | | | | [address] [place], [place] | [id number] | | | | | [address] | | | | | | [phone] | | | +--------+ + + + [...] [address] | | | | | | [facility] | | | | | | [place] | | | | | | [address] | | | | | | | [...] [address] | | | | | | [place] [address] | | | | | | [phone] | | | | | | | | +--------+ + + + + | 11/25/ | Office | Nephrology | Kei Arthur MD | | | 2019 | Visit | | [address] [facility] | | | | | | [address] [place] | | | | | | [address] | | | | | | | | +--------+ + + + + documented as of this encounter Procedures + +--------+ + + + | Procedure Name | Priori | Date/Time | Associated Diagnosis | Comments | | | ty | | | | + +--------+ + + + | LACTIC ACID | Routin | 12/11/2015 | | Results for this | | | e | 12:00 AM | | procedure are in the | | | | PDT | | results section. | + +--------+ + + + | BASIC METABOLIC | Routin | 12/11/2015 | | Results for this | | PANEL | e | 12:00 AM | | procedure are in the | | | | PDT | | results section. | + +--------+ + + + documented in this encounter Results Lactic Acid (12/11/2015 12:00 AM PDT) + + | Specimen | + + | Blood specimen | | (specimen) | + + + + + | Impressions | Performed At | + + + | Lactic Acid: 2.6 Range: 0.5-2.2 | EXTERNAL LAB | + + + + +---------+ + + | Performing | Address | City/State/Zipcode | Phone Number | | Organization | | | | + +---------+ + + | EXTERNAL LAB | | | | + +---------+ + + Basic Metabolic Panel (12/11/2015 12:00 AM PDT) + + + + [...] + + + + | Creatinine | 1.57 (A) | 0.60 - 1.35 | EXTERNAL | | | | | mg/dL | LAB | | + + + + + + | BUN/Creatin | 10.2 | 6.0 - 28.6 | EXTERNAL | | | ine Ratio | | | LAB | | + + + + + + | Calcium | 9.0 | 8.4 - 10.2 | EXTERNAL | [...] + + + + | Estimated | 36 (A) | 60 - 140 mg/dL | [...]
--- OUTSIDE RECORDS SUMMARY | ~2019-10-02 | XMS | Encounter Summary ---
Demographics + + + | Address | [address] | | | [place] [address] | + + + | Home Phone | | + + + | Preferred Language | Unknown | + + + | Marital Status | Single | + + + | Druze Affiliation | 1041 | + + + | Race | Unknown | + + + | Ethnic Group | Unknown | + + + Author + + + | Author | [facility] | | | and [place] | + + + | Organization | [facility] | | | and [place] | + + + | Address | Unknown | + + + | Phone | Unavailable | + + + Support + + + + + | Name | Relationship | Address | Phone | + + + + + | Kyaw Woodson | ECON | [place], [place] | | + + + + + | Barbara Cabrera | ECON | Unknown | | + + + + + | Dimple Hathaway | ECON | Unknown | | + + + + + Care Team Providers + +------+ + | Care Signals Intelligence Superintendent Name | Role | Phone | + +------+ + | Jennyfer Gresham MD | PCP | | + +------+ + Reason for Visit + + + | Reason | Comments | + + + | Medication Refill | | + + + Encounter Details +--------+--------+ + + + | Date | Type | Department | Care Team | Description | +--------+--------+ + + + | 08/02/ | Refill | [facility] | Rick Mast, | Medication Refill | | 2019 | | [facility] | COMMUNITY PRODUCT SPECIALIST [address] | | | | | CARE [address] | | | | | [address] | [place] | | | | | [place] | [address] | | | | | [address] | [phone] | | | | | [phone] | | | +--------+--------+ + + + [...] [place] | | | | | | [address] | | | | | | | [...] | | | | | [place] [address] | | | | | | [phone] | | | | | | | | +--------+ + + + + | 11/25/ | Office | Nephrology | Kei Arthur MD | | | 2020 | Visit | | [address] [facility] | | | | | | [address] [place] | | | | | | [address] | | | | | | | [...] | Persistent proteinuria Proteinuria | + + documented in this encounter"
--- OUTSIDE RECORDS SUMMARY | ~2019-10-02 | XMS | Encounter Summary ---
Demographics + + + | Address | [address] | | | [place] [address] | + + + | Home Phone [...] + | Organization | [facility] | | | and [...] Team Providers + +------+ + | Care Bleach Supervisor Name | Role | Phone | + +------+ + PCP | Unavailable | + +------+ + Encounter Details +--------+ + + + + | Date | Type | Department | Care Team | Description | +--------+ + + + + | 11/12/ | Hospital | [facility] | Kimmy Ghsoh | | | 1999 - | Encounter | [facility] | | | | | | ORTHOPEDICS [address] | | | | 11/15/ | | [address] [place] | | | | 1999 | | [address] | | | | | | [phone] | | | +--------+ + + + [...] [address] | | | | | | [address] | | | | | | | [...] | | | | | [place] [address] | | | | | | [phone] | | | | | | | | +--------+ + + + + | 11/25/ | Office | Nephrology | Kei Arthur MD | | | 2020 | Visit | | [address] [facility] | | | | | | [address] [place] | | | | | | [address] | | | | | | | | +--------+ + + + + documented as of this encounter Visit Diagnoses Not on filedocumented in this encounter"
--- OUTSIDE RECORDS SUMMARY | ~2019-10-02 | XMS | Encounter Summary ---
Demographics + + + | Address | [address] | | | [place] [address] | + + + | Home Phone [...] + | Organization | [facility] | | | and [place] | + + + | Address | Unknown | + + + | Phone | Unavailable | + + + Support + + + + + | Name | Relationship | Address | Phone | + + + + + | Kyaw Woodson | ECON | [place], [place] | | + + + + + | Barbara Cabrera | ECON | Unknown | | + + + + + | Dimple Hathaway | ECON | Unknown | | + + + + + Care Team Providers + +------+ + | Care General Education Professor Name | Role | Phone | + +------+ + | Daniel Land NP | PCP | | + +------+ + Encounter Details +--------+ + + + + | Date | Type | Department | Care Team | Description | +--------+ + + + + | 06/10/ | Orders Only | [facility] | Conversion | | | 2017 | | NEPHROLOGY [place] | Transaction, | | | | | [address] [facility] [address] | Provider Unknown | | | | | [address] [facility] [place] | | | | | | [address] | (Fax) | | | | | [phone] | | | +--------+ + + + [...] | | | | | [facility] | | | | | | [place] | | | | | | [address] | | | | | | | [...] [address] | | | | | | [place] [address] | | | | | | [phone] | | | | | | | | +--------+ + + + + | 11/25/ | Office | Nephrology | Kei Arthur MD | | | 2019 | Visit | | [address] [facility] | | | | | | [address] [facility] | | | | | | [address] | | | | | | | | +--------+ + + + + documented as of this encounter Procedures + +--------+ + + + | Procedure Name | Priori | Date/Time | Associated Diagnosis | Comments | | | ty | | | | + +--------+ + + + | EXTERNAL LAB: CBC | Routin | 06/10/2017 | | Results for this | | | e | 8:35 AM | | procedure are in the | | | | PDT | | results section. | + +--------+ + + + | IRON AND IRON | Routin | 06/10/2017 | | Results for this | | BINDING CAPACITY | e | 8:35 AM | | procedure are in the | | | | PDT | | results section. | + +--------+ + + + | VITAMIN D, | Routin | 06/10/2017 | | Results for this | | DEFICIENCY SCREEN | e | 8:35 AM | | procedure are in the | | (25-HYDROXY) | | PDT | | results section. | + +--------+ + + + | URINALYSIS, | Routin | 06/10/2017 | | Results for this | | MICROSCOPIC ONLY | e | 8:35 AM | | procedure are in the | | | | PDT | | results section. | + +--------+ + + + | PROTEIN/CREATININE | Routin | 06/10/2017 | | Results for this | | RATIO, URINE | e | 8:35 AM | | procedure are in the | | | | PDT | | results section. | + +--------+ + + + | URIC ACID | Routin | 06/10/2017 | | Results for this | | | e | 8:35 AM | | procedure are in the | | | | PDT | | results section. | + +--------+ + + + | TRANSFERRIN | Routin | 06/10/2017 | | Results for this | | | e | 8:35 AM | | procedure are in the | | | | PDT | | results section. | + +--------+ + + + | PARATHYROID HORMONE, | Routin | 06/10/2017 | | Results for this | | INTACT | e | 8:35 AM | | procedure are in the | | | | PDT | | results section. | + +--------+ + + + | MAGNESIUM | Routin | 06/10/2017 | | Results for this | | | e | 8:35 AM | | procedure are in the | | | | PDT | | results section. | + +--------+ + + + | FERRITIN | Routin | 06/10/2017 | | Results for this | | | e | 8:35 AM | | procedure are in the | | | | PDT | | results section. | + +--------+ + + + | RENAL FUNCTION PANEL | Routin | 06/10/2017 | | Results for this | | | e | 8:35 AM | | procedure are in the | | | | PDT | | results section. | + +--------+ + + + documented in this encounter Results Iron and Iron Binding Capacity (06/10/2017 8:35 AM PDT) + +---------+ + + + | Component | Value | Ref Range | Performed | Pathologist | | | | | At | Signature | + +---------+ + + + | Iron | 86.24 | 37 - 160 | EXTERNAL | | | | | | LAB | | + +---------+ + + + | Iron | 20.2 | 20 - 55 | EXTERNAL | | | Saturation | | | LAB | | + +---------+ + + + | TIBC | 427 (A) | 245 - 400 | EXTERNAL [...] + +---------+ + + Protein/Creatinine Ratio, Urine (06/10/2017 8:35 AM PDT) + + + + + + | Component | Value | Ref Range | Performed | Pathologist | | | | | At | Signature | + + + + + + | Protein/Cre | 695.7 (A) | 0 - 150 | EXTERNAL [...] + + Vitamin D, Deficiency Screen (25-Hydroxy) (06/10/2017 8:35 AM PDT) + +--------+ + + + | Component | Value | Ref Range | Performed | Pathologist | | | | | At | Signature | + +--------+ + + + | Vit D, | 29 (A) | 30 - 100 | EXTERNAL [...] + +---------+ + + Urinalysis, Microscopic Only (06/10/2017 8:35 AM PDT) + + + [...] + + + + | Specific | 1.007 | 1.005 - 1.030 | EXTERNAL | | | [place] | | | LAB | | + [...] + +---------+ + + External Lab: CBC (06/10/2017 8:35 AM PDT) + + + + + + | Component | Value | Ref Range | Performed | Pathologist | | | | | At | Signature | + + + + + + | WBC | 9.5 | 4.5 - 11.0 10 | EXTERNAL | | | | | | LAB | | + + + + + + | RED CELL | 3.19 (A) | 3.8 - 5.1 10 | EXTERNAL | | | COUNT | | | LAB | | + + + + + + | Hgb | 9.8 (A) | 12.0 - 16.0 | EXTERNAL | | | | | g/dL | LAB | | + + + + + + | Hematocrit, | 28.9 (A) | 35 - 45 % | EXTERNAL | | | POC | | | LAB | | + + + + + + | MCV | 90.8 | 81 - 99 fL | EXTERNAL [...] + + + + | Platelet | 266 | 140 - 440 K/ L | [...] | + +---------+ + + Uric Acid (06/10/2017 8:35 AM PDT) + +---------+ + + + [...] | | + +---------+ + + Transferrin (06/10/2017 8:35 AM PDT) + +--------+ + + + | Component | Value | Ref Range | Performed | Pathologist | | | | | At | Signature | + +--------+ + + + | TRANSFERRIN | 305.08 | 192 - 382 | EXTERNAL | [...] + +---------+ + + Parathyroid Hormone, Intact (06/10/2017 8:35 AM PDT) + + + + + + | Component | Value | Ref Range | Performed | Pathologist | | | | | At | Signature | + + + + + + | PTH INTACT | 238.8 (A) | 15 - 65 pg/mL | [...] | | + +---------+ + + Magnesium (06/10/2017 8:35 AM PDT) + +-------+ + + + [...] | | + +---------+ + + Ferritin (06/10/2017 8:35 AM PDT) + + + + + + | Component | Value | Ref Range | Performed | Pathologist | | | | | At | Signature | + + + + + + | Ferritin, | 546.6 (A) | 13 - 150 ng/mL | [...] + +---------+ + + Renal Function Panel (06/10/2017 8:35 AM PDT) + + + + + + | Component | Value | Ref Range | Performed | Pathologist | | | | | At | Signature | + + + + + + | Glucose, | 213 (A) | 70 - 100 mg/dL | EXTERNAL | | | Fasting | | | LAB | | + + + + + + | BUN | 47 (A) | 6 - 23 mg/dL | EXTERNAL | | | | | | LAB | | + + + + + + | Creatinine | 2.74 (A) | 0.60 - 1.35 | EXTERNAL [...] + + + | Anion Gap | 20.0 | 7 - 21 mmol/L | EXTERNAL | | | | | | LAB | | + + + + + + | eGFR if not | | | EXTERNAL | | | | | | LAB | | | [facility] | | | | | + + + + + + | Phosphorus, | 4.5 | 2.5 - 5.0 | EXTERNAL | | | Inorganic | | | LAB | | + + + + + + | BUN/Creatin | 17.2 | 6.0 - 28.6 | EXTERNAL | [...]
--- OUTSIDE RECORDS SUMMARY | ~2019-10-02 | XMS | Encounter Summary ---
Demographics + + + | Address | [address] | | | [place] [address] | + + + | Home Phone [...] Organization | [facility] | | | and [place] | + + + | Address | Unknown | + + + | Phone | Unavailable | + + + Support + + + + + | Name | Relationship | Address | Phone | + + + + + | Kyaw Woodson | ECON | [place], [place] | | + + + + + | Barbara Cabrera | ECON | Unknown | | + + + + + | Dimple Hathaway | ECON | Unknown | | + + + + + Care Team Providers + +------+ + | Care Dog Control Officer Name | Role | Phone | + +------+ + | No, Physician | PCP | Unavailable | + +------+ + Reason for Visit + + + | Reason | Comments | + + + | Device Check | Routine | | (In-office) | | + + + Encounter Details +--------+ + + + + | Date | Type | Department | Care Team | Description | +--------+ + + + + | 06/07/ | Procedure | [facility] | | ICD (implantable | | 2019 | visit | CARDIOLOGY [place] | | cardioverter-defibri | | | | [address] | | de[place], in | | | | [place], [place] | | situ (Primary Dx) | | | | [address] | | | | | | [phone] | | | +--------+ + + + [...] [place] | | | | | | [address] | | | | | | | [...] | | | | | [place] [address] | | | | | | [phone] | | | | | | | | +--------+ + + + + | 11/25/ | Office | Nephrology | Kei Arthur MD | | | 2019 | Visit | | [address] [facility] | | | | | | [address] [place] | | | | | | [address] | | | | | | | | +--------+ + + + + documented as of this encounter Procedures + +--------+ + + + | Procedure Name | Priori | Date/Time | Associated Diagnosis | Comments | | | ty | | | | + +--------+ + + + | DEVICE INTERROGATION | Routin | 06/14/2019 | ICD (implantable | Results for this | | | e | 12:00 AM | cardioverter-defibri | procedure are in the | | | | PDT | llator), single, in | results section. | | | | | situ | | + +--------+ + + + | LABS - EXTERNAL SCAN | | 06/07/2019 | | Results for this | | | | 12:00 AM | | procedure are in the | | | | PDT | | results section. | + +--------+ + + + documented in this encounter Results Device Interrogation (06/14/2019 12:00 AM PDT) + + + | Narrative | Performed At | + + + | Sunny Olivarez | ERICKA | | Katharine Technologist 06/14/2019 15:28SICD Interrogation Name: | | | Alondra Shane JulesOB: 1970Age/Sex: 49 y.o. female Cond. | | | Shock Zone bpm: 200 bpm.Shock Zone bpm: 220 bpm.Polarity: STDEpisodes | | | Treated: 0Episodes Untreated: 0 Battery Status %: 9%Electrode Imp | | | Status: Ok.New Reference Template?: YesReport Printed: YesChest X-Ray: | | | No Changes or Comments: Battery nearing ERIPlan: Patient will follow | | | up in clinic on 06/15/2019 at 11:30.Tech: Gildardo Alcantar. | | |Shock Zone bpm: 220 bpm. | | |Polarity: STD | | |Episodes Treated: 0 | | |Episodes Untreated: 0 | | | | | |Battery Status %: 9% | | |Electrode Imp Status: Ok. | | |New Reference Template?: Yes | | |Report Printed: Yes | | |Chest X-Ray: No | | | | | |Changes or Comments: Battery nearing PAUL | | |Plan: Patient will follow up in clinic on 06/15/2019 at 11:30. | | |Tech: Gildardo Alcantar. | | | | | + + + + + | Procedure Note | + + | Sunny Alcantar, Technologist - 06/07/2019 2:30 PM PDT SICD Interrogation | | | | Name: Alondra Caballero | | : 1970 | | Age/Sex: 49 y.o. female | | | | Cond. Shock Zone bpm: 200 bpm. | | Shock Zone bpm: 220 bpm. | | Polarity: STD | | Episodes Treated: 0 | | Episodes Untreated: 0 | | | | Battery Status %: 9% | | Electrode Imp Status: Ok. | | New Reference Template?: Yes | | Report Printed: Yes | | Chest X-Ray: No | | | | Changes or Comments: Battery nearing PAUL | | Plan: Patient will follow up in clinic on 06/15/2019 at 11:30. | | Tech: Gildardo Alcantar. | + + + +---------+ + + | Performing | Address | City/State/Zipcode | Phone Number | | Organization | | | | + +---------+ + + | [facility] | | | | + +---------+ + + LABS - EXTERNAL SCAN (06/07/2019 12:00 AM PDT) + + + | Narrative | Performed At | + + + | Ordered by an | | | unspecified provider. | | + + + documented in this encounter Visit Diagnoses + + | Diagnosis | + + | ICD (implantable cardioverter-defibrillator), single, in situ - Primary | + + documented in this encounter"
--- OUTSIDE RECORDS SUMMARY | ~2019-10-02 | XMS | Encounter Summary ---
Demographics + + + | Address | [address] | | | [place] [address] | + + + | Home Phone [...] Team Providers + +------+ + | Care Field Education Director Name | Role | Phone | + +------+ + | Jennyfer Gresham MD | PCP | | + +------+ + Reason for Visit + + + | Reason | Comments | + + + | Scheduling | | + + + Encounter Details +--------+ + + + + | Date | Type | Department | Care Team | Description | +--------+ + + + + | 07/23/ | Telephone | [facility] | Jaelyn Mejia, | Scheduling | | 2019 | | [facility] at | [address] | | | | | [address] | Carrie Sanabria | | | | | [place] | [place], [place] | | | | | Mailcode: MIC[place]ELI | [address] | | | | | [place] [address] | [phone] | | | | | [phone] | | | +--------+ + + + [...]
--- OUTSIDE RECORDS SUMMARY | ~2019-10-02 | XMS | Encounter Summary ---
Demographics + + + | Address | [address] | | | [place] [address] | + + + | Home Phone [...] Organization | [facility] | | | and [place] | + + + | Address | Unknown | + + + | Phone | Unavailable | + + + Support + + + + + | Name | Relationship | Address | Phone | + + + + + | Kyaw Woosdon | ECON | [place], [place] | | + + + + + | Barbaar Cabrera | ECON | Unknown | | + + + + + | Dimple Hathaway | ECON | Unknown | | + + + + + Care Team Providers + +------+ + | Care Ladle Liner Name | Role | Phone | + +------+ + | Daniel Land NP | PCP | | + +------+ + Encounter Details +--------+ + + + + | Date | Type | Department | Care Team | Description | +--------+ + + + + | 08/01/ | Orders Only | [facility] | Conversion | | | 2015 | | [place]OLOG[place] | Transaction, | | | | | [address] | Provider Unknown | | | | | [address] [place] | [phone] | | | | | [address] | | | | | | [phone] | | | +--------+ + + + [...] | | | | | [facility] | | | | | | [place] | | | | | | [address] | | | | | | | [...] | | | | | [place] [address] | | | | | | [phone] | | | | | | | | +--------+ + + + + | 11/25/ | Office | Nephrology | Kei Arthur MD | | | 2019 | Visit | | [address] [facility] | | | | | | [address] [place] | | | | | | [address] | | | | | | | | +--------+ + + + + documented as of this encounter Procedures + +--------+ + + + | Procedure Name | Priori | Date/Time | Associated Diagnosis | Comments | | | ty | | | | + +--------+ + + + | URINALYSIS WITH | Routin | 08/23/2015 | | Results for this | | MICROSCOPIC WITH | e | 12:00 AM | | procedure are in the | | CULTURE IF INDICATED | | PST | | results section. | + +--------+ + + + | COMPREHENSIVE | Routin | 08/01/2015 | | Results for this | | METABOLIC PANEL | e | 12:00 AM | | procedure are in the | | | | PST | | results section. | + +--------+ + + + documented in this encounter Results Urinalysis with Microscopic with Culture if Indicated (08/23/2015 12:00 AM PST) + + + [...] + + + | Spec Grav, | 1.017 | 1.005 - 1.030 | EXTERNAL | [...] + + + + | Glucose, | 4+Comment: 500 | | EXTERNAL | | | Urine | | | LAB | | + + + + + + | WBC, UA | | | EXTERNAL | | | | | | LAB | | + + + + + + | RBC, UA | | | EXTERNAL | | | | | | LAB | | + + + + + + | Epithelial | | | EXTERNAL | | | Cells | | | LAB | | + + + + + + | Bacteria, | | | EXTERNAL | | | UA | | | LAB | | + + + + + + | HYALINE | | | EXTERNAL | | | CASTS [...] + +---------+ + + Comprehensive Metabolic Panel (08/01/2015 12:00 AM PST) + + + + [...] + + + + | Creatinine | 2.26 (A) | 0.60 - 1.35 | EXTERNAL | | | | | mg/dL | LAB | | + + + + + + | BUN/Creatin | 11.1 | 6.0 - 28.6 | EXTERNAL | | | ine Ratio | | | LAB | | + + + + + + | Calcium | 9.3 | 8.4 - 10.2 | EXTERNAL | | | | | mg/dL | LAB | | + + + + + + | Protein, | 6.8 | 6.0 - 8.0 g/dL | EXTERNAL [...] + + + + | Bilirubin | 0.3 | 0.0 - 1.2 mg/dL | EXTERNAL | | | Total | | | LAB | | + + + + + + | ALP, | 40 | 30 - 128 | EXTERNAL | | | External | | | LAB | | + + + + + + | ALT | 11 | 7 - 52 U/L | EXTERNAL | | | | | | LAB | | + + + + + + | AST | 14 | 13 - 39 U/L | EXTERNAL [...] + + + | CO2 | 16 (A) | 19 - 31 mmol/L | EXTERNAL | | | | | | LAB | | + + + + + + | Anion Gap | 19.2 | 7 - 21 mmol/L | EXTERNAL | | | | | | LAB | | + + + + + + | Estimated | 24 (A) | 60 - 140 mg/dL | [...]
--- OUTSIDE RECORDS SUMMARY | ~2019-10-02 | XMS | Encounter Summary ---
Demographics + + + | Address | [address] | | | [place] [address] | + + + | Home Phone [...] + | Organization | [facility] | | | and [place] | + + + | Address | Unknown | + + + | Phone | Unavailable | + + + Support + + + + + | Name | Relationship | Address | Phone | + + + + + | Kyaw Woodson | ECON | [place], [place] | | + + + + + | Barbara Cabrera | ECON | Unknown | | + + + + + | Dimple Hathaway | ECON | Unknown | | + + + + + Care Team Providers + +------+ + | Care Clinical Quality Manager Name | Role | Phone | + +------+ + | Daniel Land NP | PCP | | + +------+ + Encounter Details +--------+ + + + + | Date | Type | Department | Care Team | Description | +--------+ + + + + | 06/29/ | Orders Only | [facility] | Conversion | | | 2016 | | NEPHROLOGY [place] | Transaction, | | | | | [address] [facility] [address] | Provider Unknown | | | | | [address] [facility] [place] | | | | | | [address] | (Fax) | | | | | [phone] | | | +--------+ + + + [...] | | | | | | [facility] | | | | | | [place] | | | | | | [address] | | | | | | | [...] [address] | | | | | | [place] [address] | | | | | | [phone] | | | | | | | | +--------+ + + + + | 11/25/ | Office | Nephrology | Kei Arthur MD | | | 2019 | Visit | | [address] [facility] | | | | | | [address] | | | | | | [address] | | | | | | | | +--------+ + + + + documented as of this encounter Procedures + +--------+ + + + | Procedure Name | Priori | Date/Time | Associated Diagnosis | Comments | | | ty | | | | + +--------+ + + + | COMPREHENSIVE | Routin | 06/29/2016 | | Results for this | | METABOLIC PANEL | e | 1:23 PM | | procedure are in the | | | | PDT | | results section. | + +--------+ + + + documented in this encounter Results Comprehensive Metabolic Panel (06/29/2016 1:23 PM PDT) + + [...] + + + + | Creatinine | 2.60 (A) | 0.60 - 1.35 | EXTERNAL | | | | | mg/dL | LAB | | + + + + + + | BUN/Creatin | 16.9 | 6.0 - 28.6 | EXTERNAL | | | ine Ratio | | | LAB | | + + + + + + | Calcium | 9.7 | 8.4 - 10.2 | EXTERNAL | | | | | mg/dL | LAB | | + + + + + + | Protein, | 7.6 | 6.0 - 8.0 g/dL | EXTERNAL | | | Total | | | LAB | | + + + + + + | Albumin | 4.4 | 3.5 - 5.0 | EXTERNAL | | | | | | LAB | | + + + + + + | Globulin | 3.2 | 1.8 - 3.5 | EXTERNAL | | | | | | LAB | | + + + + + + | A/G Ratio | 1.4 | 1.1 - 2.4 | EXTERNAL | | | | | | LAB | | + + + + + + | Bilirubin | 1.0 | 0.0 - 1.2 mg/dL | EXTERNAL | | | Total | | | LAB | | + + + + + + | ALP, | 61 | 31 - 128 | EXTERNAL | | | External | | | LAB | | + + + + + + | ALT | 15 | 7 - 52 U/L | EXTERNAL | | | | | | LAB | | + + + + + + | AST | 23 | 13 - 39 U/L | EXTERNAL [...] + + | Cl | 103 | 95 - 112 mmol/L | EXTERNAL | | | | | | LAB | | + + + + + + | CO2 | 19 | 19 - 31 mmol/L | EXTERNAL | | | | | | LAB | | + + + + + + | Anion Gap | 20.6 | 7 - 21 mmol/L | EXTERNAL [...]
--- OUTSIDE RECORDS SUMMARY | ~2019-10-02 | XMS | Encounter Summary ---
Demographics + + + | Address | [address] | | | [place] [address] | + + + | Home Phone [...] | Organization | [facility] | | | and [place] | + + + | Address | Unknown | + + + | Phone | Unavailable | + + + Support + + + + + | Name | Relationship | Address | Phone | + + + + + | Kyaw Woodson | ECON | [place], [place] | | + + + + + | Barbara Cabrera | ECON | Unknown | | + + + + + | Dimple Hathaway | ECON | Unknown | | + + + + + Care Team Providers + +------+ + | Care Cyber Security Manager Name | Role | Phone | + +------+ + | Jennyfer Gresham MD | PCP | | + +------+ + Reason for Visit +--------+ + | Reason | Comments | +--------+ + | Other | Patient call | +--------+ + Encounter Details +--------+ + + + + | Date | Type | Department | Care Team | Description | +--------+ + + + + | 06/07/ | Telephone | [facility] | Kei Arthur MD | Other (Patient call) | | 2019 | | [facility] | [address] [place] | | | | | [address] [place] | [address] [place] | | | | | [address] [place] | [id number] | | | | | [address] | | | | | | [phone] | | | +--------+ + + + [...] [place] | | | | | | [id number] | | | | | | | [...] | | | | | [place] [address] | | | | | | [phone] | | | | | | | | +--------+ + + + + | 11/25/ | Office | Nephrology | Kei Arthur MD | | | 2020 | Visit | | [address] [facility] | | | | | | [address] [facility] [place] | | | | | | [id number] | | | | | | | | +--------+ + + + + documented as of this encounter Visit Diagnoses Not on filedocumented in this encounter"
--- OUTSIDE RECORDS SUMMARY | ~2019-10-02 | XMS | Encounter Summary ---
Demographics + + + | Address | [address] | | | [place] [address] | + + + | Home Phone | | + + + | Preferred Language | Unknown | + + + | Marital Status | Single | + + + | Lutheran Affiliation | 1041 | + + + | Race | Unknown | + + + | Ethnic Group | Unknown | + + + Author + + + | Author | [facility] | | | and [place] | + + + | Organization | [facility] | | | and [place] | + + + | Address | Unknown | + + + | Phone | Unavailable | + + + Support + + + + + | Name | Relationship | Address | Phone | + + + + + | Kyaw Woodson | ECON | [place], [place] | | + + + + + | Barbara Cabrera | ECON | Unknown | | + + + + + | Dimple Hathaway | ECON | Unknown | | + + + + + Care Team Providers + +------+ + | Care Dubbing Machine Operator Name | Role | Phone | + +------+ + | Daniel Land NP | PCP | | + +------+ + Encounter Details +--------+ + + + + | Date | Type | Department | Care Team | Description | +--------+ + + + + | 08/27/ | Orders Only | [facility] | Conversion | | | 2015 | | CARDIOLOGY [place] | Transaction, | | | | | [address] | Provider Unknown | | | | | [facility] [place] | [phone] | | | | | [address] | | | | | | [phone] | | | +--------+ + + + [...] [address] | | | | | | [address] | | | | | | | [...] | | | | | [place] [address] | | | | | | [phone] | | | | | | | | +--------+ + + + + | 11/25/ | Office | Nephrology | Kei Arthur MD | | | 2019 | Visit | | [address] [facility] | | | | | | [address] [place] | | | | | | [address] | | | | | | | [...]
--- OUTSIDE RECORDS SUMMARY | ~2019-10-02 | XMS | Encounter Summary ---
Demographics + + + | Address | [address] | | | [place] [address] | + + + | Home Phone [...] + + | Author | [facility] | | | and [place] | + + + | Organization | [facility] | | | and [place] | + + + | Address | Unknown | + + + | Phone | Unavailable | + + + Support + + + + + | Name | Relationship | Address | Phone | + + + + + | Kyaw Woodson | ECON | [place], [place] | | + + + + + | Barbara Cabrera | ECON | Unknown | | + + + + + | Dimple Hathaway | ECON | Unknown | | + + + + + Care Team Providers + +------+ + | Care Meter Installer And Remover Name | Role | Phone | + +------+ + | Daniel Land NP | PCP | | + +------+ + Encounter Details +--------+ + + + + | Date | Type | Department | Care Team | Description | +--------+ + + + + | 07/01/ | Orders Only | [facility] | Conversion | | | 2017 | | NEPRHOLOGY [place] | Transaction, | | | | | [address] | Provider Unknown | | | | | [address] [place] | [phone] | | | | | [address] | | | | | | [phone] | | | +--------+ + + + [...] [place] | | | | | | [address] | | | | | | | [...] | | | | | [place] [address] | | | | | | [phone] | | | | | | | | +--------+ + + + + | 11/25/ | Office | Nephrology | Kei Arthur MD | | | 2019 | Visit | | [address] [facility] | | | | | | [address] [place] | | | | | | [address] | | | | | | | [...] | | | LAB | | | [place] | | | | | + + [...]
--- OUTSIDE RECORDS SUMMARY | ~2019-10-02 | XMS | Encounter Summary ---
Demographics + + + | Address | [address] | | | [place] [address] | + + + | Home Phone [...] Organization | [facility] | | | and [place] | + + + | Address | Unknown | + + + | Phone | Unavailable | + + + Support + + + + + | Name | Relationship | Address | Phone | + + + + + | Kyaw Woodson | ECON | [place], [place] | | + + + + + | Barbara Cabrera | ECON | Unknown | | + + + + + | Dimple Hathaway | ECON | Unknown | | + + + + + Care Team Providers + +------+ + | Care Courseware Developer Name | Role | Phone | + +------+ + | Daniel Land NP | PCP | | + +------+ + Encounter Details +--------+ + + + + | Date | Type | Department | Care Team | Description | +--------+ + + + + | 07/27/ | Orders Only | [facility] | Conversion | | | 2018 | | NEPRHOLOGY [place] | Transaction, | | | | | [address] | Provider Unknown | | | | | [address] [place] | [phone] | | | | | [address] | | | | | | [phone] | | | +--------+ + + + [...] [place] | | | | | | [address] | | | | | | | [...] | | | | | [place] [address] | | | | | | [phone] | | | | | | | | +--------+ + + + + | 11/25/ | Office | Nephrology | Kei Arthur MD | | | 2019 | Visit | | [address] [facility] | | | | | | [address] [place] | | | | | | [address] | | | | | | | [...]
--- OUTSIDE RECORDS SUMMARY | ~2019-10-02 | XMS | Encounter Summary ---
Demographics + + + | Address | [address] | | | [place] [address] | + + + | Home Phone | | + + + | Preferred Language | Unknown | + + + | Marital Status | Single | + + + | Tenriism Affiliation | 1041 | + + + | Race | Unknown | + + + | Ethnic Group | Unknown | + + + Author + + + | Author | [facility] | | | and [place] | + + + | Organization | [facility] | | | and [place] | + + + | Address | Unknown | + + + | Phone | Unavailable | + + + Support + + + + + | Name | Relationship | Address | Phone | + + + + + | yKaw Woodson | ECON | [place], [place] | | + + + + + | Barbara Cabrera | ECON | Unknown | | + + + + + | Dimple Hathaway | ECON | Unknown | | + + + + + Care Team Providers + +------+ + | Care Knockout Worker Name | Role | Phone | + +------+ + | No, Physician | PCP | Unavailable | + +------+ + Encounter Details +--------+ + + + + | Date | Type | Department | Care Team | Description | +--------+ + + + + | 09/22/ | Orders Only | [facility] | Conversion | | | 2017 | | NEPHROLOGY [place] | Transaction, | | | | | [address] | Provider Unknown | | | | | [address] [place], [place] | | | | | | [address] | (Fax) | | | | | [phone] | | | +--------+ + + + [...] [place] | | | | | | [id number] | | | | | | | [...] | | | | | [place] [address] | | | | | | [phone] | | | | | | | | +--------+ + + + + | 11/25/ | Office | Nephrology | Kei Arthur MD | | | 2019 | Visit | | [address] [facility] | | | | | | [address] [place], [place] | | | | | | [address] | | | | | | | [...]
--- OUTSIDE RECORDS SUMMARY | ~2019-10-02 | XMS | Encounter Summary ---
Demographics + + + | Address | [address] | | | [place] [address] | + + + | Home Phone [...] + + + | Author | [facility] | | | and [place] | + + + | Organization | [facility] | | | and [place] | + + + | Address | Unknown | + + + | Phone | Unavailable | + + + Support + + + + + | Name | Relationship | Address | Phone | + + + + + | Kyaw Woodson | ECON | [place], [place] | | + + + + + | Barbara Cabrera | ECON | Unknown | | + + + + + | Dimple Hathaway | ECON | Unknown | | + + + + + Care Team Providers + +------+ + | Care Manager Wholesale Name | Role | Phone | + +------+ + | Daniel Land NP | PCP | | + +------+ + Encounter Details +--------+ + + + + | Date | Type | Department | Care Team | Description | +--------+ + + + + | 08/17/ | Orders Only | [facility] | Conversion | | | 2017 | | NEPHROLOGY [place] | Transaction, | | | | | [address] [facility] [address] | Provider Unknown | | | | | [address] [place] | | | | | | [address] | (Fax) | | | | | [phone] | | | +--------+ + + + [...] [address] | | | | | | [facility] | | | | | | [place] | | | | | | [address] | | | | | | | [...] | | | | | | [place] [address] | | | | | | [phone] | | | | | | | | +--------+ + + + + | 11/25/ | Office | Nephrology | Kei Arthur MD | | | 2019 | Visit | | [address] [facility] | | | | | | [address] [place] | | | | | | [address] | | | | | | | [...]
--- OUTSIDE RECORDS SUMMARY | ~2019-10-02 | XMS | Encounter Summary ---
Demographics + + + | Address | [address] | | | [place] [address] | + + + | Home Phone [...] | Organization | [facility] | | | and [place] | + + + | Address | Unknown | + + + | Phone | Unavailable | + + + Support + + + + + | Name | Relationship | Address | Phone | + + + + + | Kyaw Woodson | ECON | [place], [place] | | + + + + + | Barbara Cabrera | ECON | Unknown | | + + + + + | Dimple Hathaway | ECON | Unknown | | + + + + + Care Team Providers + +------+ + | Care Equipment Monitor Phototypesetting Name | Role | Phone | + +------+ + | Daniel Land NP | PCP | | + +------+ + Encounter Details +--------+ + + + + | Date | Type | Department | Care Team | Description | +--------+ + + + + | 06/29/ | Orders Only | [facility] | Conversion | | | 2016 | | NEPHROLOGY [place] | Transaction, | | | | | [address] [facility] [address] | Provider Unknown | | | | | [address] [facility] [place] | | | | | | [address] | (Fax) | | | | | [phone] | | | +--------+ + + + [...] | | | | | | [facility] | | | | | | [place] | | | | | | [address] | | | | | | | [...] 206 | | | | | | [place] [address] | | | | | | [phone] | | | | | | | | +--------+ + + + + | 11/25/ | Office | Nephrology | Kei Atrhur MD | | | 2019 | Visit | | [address] [facility] | | | | | | [address] [place] | | | | | | [address] | | | | | | | [...]
--- OUTSIDE RECORDS SUMMARY | ~2019-10-02 | XMS | Encounter Summary ---
Demographics + + + | Address | [address] | | | [place] [address] | + + + | Home Phone [...] Organization | [facility] | | | and [place] | + + + | Address | Unknown | + + + | Phone | Unavailable | + + + Support + + + + + | Name | Relationship | Address | Phone | + + + + + | Kyaw Woodson | ECON | [place], [place] | | + + + + + | Barbara Cabrera | ECON | Unknown | | + + + + + | Dimple Hathaway | ECON | Unknown | | + + + + + Care Team Providers + +------+ + | Care Statistics Tutor Name | Role | Phone | + [...] + + | 08/28/ | Telephone | [facility] | Natalie, | Establish Care | | 2019 | | [facility] | MD Sarah [address] | (Sooner appointment) | | | | CARE [address] | | | | | [address] [place], [place] | [place] [address] | | | | | [address] | [phone] | | | | | [phone] | | | +--------+ + + + [...] [place] | | | | | | [address] | | | | | | | [...] | | | | | [place] [address] | | | | | | [phone] | | | | | | | | +--------+ + + + + | 11/25/ | Office | Nephrology | Kei Arthur MD | | | 2020 | Visit | | [address] [facility] | | | | | | [address] [place] | | | | | | [address] | | | | | | | | +--------+ + + + + documented as of this encounter Visit Diagnoses Not on filedocumented in this encounter"
--- OUTSIDE RECORDS SUMMARY | ~2019-10-02 | XMS | Encounter Summary ---
Demographics + + + | Address | [address] | | | [place] [address] | + + + | Home Phone [...] | Organization | [facility] | | | and [place] | + + + | Address | Unknown | + + + | Phone | Unavailable | + + + Support + + + + + | Name | Relationship | Address | Phone | + + + + + | Kyaw Woodson | ECON | [place], [place] | | + + + + + | Barbara Cabrera | ECON | Unknown | | + + + + + | Dimple Hathaway | ECON | Unknown | | + + + + + Care Team Providers + +------+ + | Care Certified Recreational Therapist Name | Role | Phone | + +------+ + | No, Physician | PCP | Unavailable | + +------+ + Encounter Details +--------+ + + + + | Date | Type | Department | Care Team | Description | +--------+ + + + + | 06/14/ | Hospital | [facility] | Conversion | Diagnosis unknown | | 2015 | Encounter | [address] | Transaction, | | | | | [address] | Provider Unknown | | | | | [place], [place] | [phone] | | | | | [address] | | | | | | [phone] | | | +--------+ + + + [...] | | | | | | [facility] | | | | | | [place] | | | | | | [address] | | | | | | | [...] [address] | | | | | | [place] [address] | | | | | | [phone] | | | | | | | | +--------+ + + + + | 11/25/ | Office | Nephrology | Kei Arthur MD | | | 2019 | Visit | | [address] [facility] | | | | | | [address] [facility] | | | | | | [address] | | | | | | | | +--------+ + + + + documented as of this encounter Procedures + +--------+ + + + | Procedure Name | Priori | Date/Time | Associated Diagnosis | Comments | | | ty | | | | + +--------+ + + + | XR FINGER LEFT 2 + | Routin | 12/26/2015 | | Results for this | | VW | e | 6:37 PM | | procedure are in the | | | | PDT | | results section. | + +--------+ + + + documented in this encounter Results XR Finger Left 2 + Vw (12/26/2015 6:37 PM PDT) + + | Specimen [...]
--- OUTSIDE RECORDS SUMMARY | ~2019-10-02 | XMS | Encounter Summary ---
Demographics + + + | Address | [address] | | | [place] [address] | + + + | Home Phone | | + + + | Preferred Language | Unknown | + + + | Marital Status | Single | + + + | Baptism Affiliation | 1041 | + + + | Race | Unknown | + + + | Ethnic Group | Unknown | + + + Author + + + | Author | [facility] | | | and [place] | + + + | Organization | [facility] | | | and [place] | + + + | Address | Unknown | + + + | Phone | Unavailable | + + + Support + + + + + | Name | Relationship | Address | Phone | + + + + + | Kyaw Woodson | ECON | [place], [place] | | + + + + + | Barbara Cabrera | ECON | Unknown | | + + + + + | Dimple Hathaway | ECON | Unknown | | + + + + + Care Team Providers + +------+ + | Care Manager Park Name | Role | Phone | + [...] [address] | | | | [address] | [facility] | | | 01/01/ | | [facility] | [place] [address] | | | [address] | | [place], [place] | [phone] | | | | | [address] | | | | | | [phone] | | | +--------+ + + + [...] | | | | | | [facility] | | | | | | [place] | | | | | | [address] | | | | | | | [...] | | | | | [place] [address] | | | | | | [phone] | | | | | | | | +--------+ + + + + | 11/25/ | Office | Nephrology | Kei Arthur MD | | | 2020 | Visit | | [address] [facility] | | | | | | [address] [place] | | | | | | [address] | | | | | | | | +--------+ + + + + documented as of this encounter Visit Diagnoses Not on filedocumented in this encounter"
--- OUTSIDE RECORDS SUMMARY | ~2019-10-02 | XMS | Encounter Summary ---
Demographics + + + | Address | [address] | | | [place] [address] | + + + | Home Phone [...] Organization | [facility] | | | and [place] | + + + | Address | Unknown | + + + | Phone | Unavailable | + + + Support + + + + + | Name | Relationship | Address | Phone | + + + + + | Kyaw Woodson | ECON | [place], [place] | | + + + + + | Barbara Cabrera | ECON | Unknown | | + + + + + | Dimple Hathaway | ECON | Unknown | | + + + + + Care Team Providers + +------+ + | Care Park Worker Name | Role | Phone | + +------+ + | Daniel Land NP | PCP | | + +------+ + Encounter Details +--------+ + + + + | Date | Type | Department | Care Team | Description | +--------+ + + + + | 12/20/ | Orders Only | [facility] | Kei Arthur MD | | | 2016 | | [facility] | [address] [place] | | | | | [address] [place] | [address] [place], [place] | | | | | [address] [place], [place] | [id number] | | | | | [address] | | | | | | [phone] | | | +--------+ + + + [...] [address] | | | | | | [facility] | | | | | | [place] | | | | | | [address] | | | | | | | [...] 206 | | | | | | [place] [address] | | | | | | [phone] | | | | | | | | +--------+ + + + + | 11/25/ | Office | Nephrology | Kei Arthur MD | | | 2019 | Visit | | [address] [address] [facility] | | | | | | [address] [place] | | | | | | [address] | | | | | | | [...] | | | LAB | | | THAI | | | | | + + [...]
--- OUTSIDE RECORDS SUMMARY | ~2019-10-02 | XMS | Encounter Summary ---
Demographics + + + | Address | [address] | | | [place] [address] | + + + | Home Phone [...] | Organization | [facility] | | | and [place] | + + + | Address | Unknown | + + + | Phone | Unavailable | + + + Support + + + + + | Name | Relationship | Address | Phone | + + + + + | Kyaw Woodson | ECON | [place], [place] | | + + + + + | Barbara Cabrera | ECON | Unknown | | + + + + + | Dimple Hathaway | ECON | Unknown | | + + + + + Care Team Providers + +------+ + | Care Bottle Blower Name | Role | Phone | + +------+ + | No, Physician | PCP | Unavailable | + +------+ + Encounter Details +--------+ + + + + | Date | Type | Department | Care Team | Description | +--------+ + + + + | 09/22/ | Orders Only | [facility] | Kei Arthur MD | | | 2018 | | NEPHROLOGY [place] | [address] [place] | | | | | [address] [place] | [address] [place], [place] | | | | | [address] [facility] [place] | [address] | | | | | [address] | | | | | | [phone] | | | +--------+ + + + [...] [address] | | | | | | [address] | | | | | | | [...] | | | | | [place] [address] | | | | | | [phone] | | | | | | | | +--------+ + + + + | 11/25/ | Office | Nephrology | Kei Arthur MD | | | 2019 | Visit | | [address] [facility] | | | | | | [address] [place] | | | | | | [address] | | | | | | | [...] | | | LAB | | | [place] | | | | | + + [...]
--- OUTSIDE RECORDS SUMMARY | ~2019-10-02 | XMS | Encounter Summary ---
Demographics + + + | Address | [address] | | | [place] [address] | + + + | Home Phone [...] + + + | Author | [facility] | | | and [place] | + + + | Organization | [facility] | | | and [place] | + + + | Address | Unknown | + + + | Phone | Unavailable | + + + Support + + + + + | Name | Relationship | Address | Phone | + + + + + | Kyaw Woodson | ECON | [place], [place] | | + + + + + | Barbara Cabrera | ECON | Unknown | | + + + + + | Dimple Hathaway | ECON | Unknown | | + + + + + Care Team Providers + +------+ + | Care Band Instrument Maker Name | Role | Phone | + +------+ + | No, Physician | PCP | Unavailable | + +------+ + Encounter Details +--------+ + + + + | Date | Type | Department | Care Team | Description | +--------+ + + + + | 06/14/ | Hospital | [facility] | Conversion | Diagnosis unknown | | 2015 | Encounter | [address] | Transaction, | | | | | [address] | Provider Unknown | | | | | [place], [place] | [phone] | | | | | [address] | | | | | | [phone] | | | +--------+ + + + [...] [address] | | | | | | [facility] | | | | | | [place] | | | | | | [address] | | | | | | | [...] 206 | | | | | | [place] [address] | | | | | | [phone] | | | | | | | | +--------+ + + + + | 11/25/ | Office | Nephrology | Kei Arthur MD | | | 2019 | Visit | | [address] [facility] | | | | | | [address] [place] | | | | | | [address] | | | | | | | | +--------+ + + + + documented as of this encounter Procedures + +--------+ + + + | Procedure Name | Priori | Date/Time | Associated Diagnosis | Comments | | | ty | | | | + +--------+ + + + | XR CHEST 1 VIEW | Routin | 01/05/2016 | | Results for this | | | e | 6:47 PM | | procedure are in the | | | | PDT | | results section. | + +--------+ + + + documented in this encounter Results XR Chest 1 Vw (01/05/2016 6:47 PM PDT) + + | Specimen | [...]
--- OUTSIDE RECORDS SUMMARY | ~2019-10-02 | XMS | Encounter Summary ---
Demographics + + + | Address | [address] | | | [place] [address] | + + + | Home Phone | | + + + | Preferred Language | Unknown | + + + | Marital Status | Single | + + + | Catholic Affiliation | 1041 | + + + | Race | Unknown | + + + | Ethnic Group | Unknown | + + + Author + + + | Author | [facility] | | | and [place] | + + + | Organization | [facility] | | | and [place] | + + + | Address | Unknown | + + + | Phone | Unavailable | + + + Support + + + + + | Name | Relationship | Address | Phone | + + + + + | Kyaw Woodson | ECON | [place], [place] | | + + + + + | Barbara Cabrera | ECON | Unknown | | + + + + + | Dimple Hathaway | ECON | Unknown | | + + + + + Care Team Providers + +------+ + | Care Servicing Rep Name | Role | Phone | + [...] Provider Unknown | | | | | [place], [place] | [phone] | | | | | [address] | | | | | | [phone] | | | +--------+ + + + [...] | | | | | | [facility] | | | | | | [place] | | | | | | [id number] | | | | | | | [...] | | | | | [place] [address] | | | | | | [phone] | | | | | | | | +--------+ + + + + | 11/25/ | Office | Nephrology | Kei Arthur MD | | | 2019 | Visit | | [address] [facility] | | | | | | [address] [place] | | | | | | [id number] | | | | | | | | +--------+ + + + + documented as of this encounter Visit Diagnoses Not on filedocumented in this encounter"
--- OUTSIDE RECORDS SUMMARY | ~2019-10-02 | XMS | Encounter Summary ---
Demographics + + + | Address | [address] | | | [place] [address] | + + + | Home Phone [...] Providers + +------+ + | Care Certified Energy Manager Name | Role | Phone | [...] | | | | | [address] | [place], [place] | | | | | | [facility] [place] | [address] | | | | | | [address] | Phone: | | | | | | Phone: | [phone] | | | | | | [phone] | Fax: | | | | | | Fax: | [phone] | | | | | | [phone] | | +--------+--------+ + + + + Encounter Details +--------+---------+ + + + | Date | Type | Department | Care Team | Description | +--------+---------+ + + + | 12/22/ | Office | [facility] | Pato Lenz, OD | Impaired contrast | | 2018 | Visit | [place] [facility] | [address] | sensitivity (Primary | | | | [address] | [place], [place] | Dx); Retinal | | | | Mailcode: [facility] | [address] | telangiectasia of | | | | [facility] | [phone] | both eyes | | | | and Healing, | | | | | | Building | | | | | | [place], [place] | | | | | | [address] | | | | | | [phone] | | | +--------+---------+ + + + [...] from t johnny original. Vision Rehabilitation Service [facility] [place] [facility] Chief Complaint:Improving [...] keeps busy by going to her daughters [employer] Smart[employer] RF[employer]. She uses [employer] to get to her appointments. 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 Base Exam Manifest Refraction Sphere Cylinder Union Add Right -7.00 -0.75 087 +4.50 Left -7.00 -0.25 090 +4.50 Final Rx Sphere Cylinder Union Right -7.00 -0.75 087 Left -7.00 -0.25 090 Contrast Sensitivity Testing Chart Used [place], with glasses OU 1.44 This is a [...] bifoc als. -Dispensed Ban 3.5x LED HHM (Item#[id number] from [facility] donation inventtory) for spot reading fine print. -Educated patient on proper lighting to to enhance contrast and to reduce glare. -Refer patient to [facility] for psychological services. -Have patient RTC prn as new goals arise. 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 Final Rx: OD -7.00 -0.75 x 087 OD, OS -7.00 -0.25 x 090 3. Type 2 macular telangiectasis OD,OS -Continue care with Dr. Mejia. Start: 12:45 PM End: 1:50 PM Refraction: 15 min 50% or more of my total [id number] time with my patient, as recorded above, was spent in my counseling (their documented eye & vision diagnosis, adaptation to blindness, life skills , explanation of sRx options, coordination of care, and explanation of treatment options) wh ile subtracting any minutes given to testing procedures alone, including the refraction, if performed. Pato Lenz, OD, [facility] Vision Rehabilitation [facility] [place] documented in this encou nter Plan of Treatment Not on filedocumented as of this encounter Visit Diagnoses + + | Diagnosis | + + | Impaired contrast sensitivity - Primary Other specified visual disturbances | + + | Retinal telangiectasia of both eyes Retinal telangiectasia | + + documented in this encounter"
--- OUTSIDE RECORDS SUMMARY | ~2019-10-02 | XMS | Encounter Summary ---
Demographics + + + | Address | [address] | | | [place] [address] | + + + | Home Phone [...] + + + | Author | [facility] | | | and [place] | + + + | Organization | [facility] | | | and [place] | + + + | Address | Unknown | + + + | Phone | Unavailable | + + + Support + + + + + | Name | Relationship | Address | Phone | + + + + + | Kyaw Woodson | ECON | [place], [place] | | + + + + + | Barbara Cabrera | ECON | Unknown | | + + + + + | Dimple Hathaway | ECON | Unknown | | + + + + + Care Team Providers + +------+ + | Care Data Integration Analyst Name | Role | Phone | + +------+ + | No, Physician | PCP | Unavailable | + +------+ + Encounter Details +--------+ + + + + | Date | Type | Department | Care Team | Description | +--------+ + + + + | 12/22/ | Orders Only | [facility] | Kei Arthur MD | | | 2018 | | NEPHROLOGY [place] | [address] [place] | | | | | [address] [place] | [address] [place], [place] | | | | | [address] [facility] [place] | [address] | | | | | [address] | | | | | | [phone] | | | +--------+ + + + [...] [address] | | | | | | [address] | | | | | | | [...] | | | | | [place] [address] | | | | | | [phone] | | | | | | | | +--------+ + + + + | 11/25/ | Office | Nephrology | Kei Arthur MD | | | 2019 | Visit | | [address] [facility] | | | | | | [address] [place] | | | | | | [address] | | | | | | | [...] | | | LAB | | | [place] | | | | | + + [...]
--- OUTSIDE RECORDS SUMMARY | ~2019-10-02 | XMS | Encounter Summary ---
Demographics + + + | Address | [address] | | | [place] [address] | + + + | Home Phone | | + + + | Preferred Language | Unknown | + + + | Marital Status | Single | + + + | Advent Affiliation | 1041 | + + + | Race | Unknown | + + + | Ethnic Group | Unknown | + + + Author + + + | Author | [facility] | | | and [place] | + + + | Organization | [facility] | | | and [place] | + + + | Address | Unknown | + + + | Phone | Unavailable | + + + Support + + + + + | Name | Relationship | Address | Phone | + + + + + | Kyaw Woodson | ECON | [place], [place] | | + + + + + | Barbara Cabrera | ECON | Unknown | | + + + + + | Dimple Hathaway | ECON | Unknown | | + + + + + Care Team Providers + +------+ + | Care Label Machine Operator Name | Role | Phone | + +------+ + | No, Physician | PCP | Unavailable | + +------+ + Reason for Referral Evaluate & Treat (Routine) + + + + + + + | Status | Reason | Specialty | Diagnoses / | Referred By | Referred To | | | | | Procedures | Contact | Contact | + + + + + + + | Authorized | Specialty | Cardiology | Diagnoses | [place], | Tiffanie, | | | Services | | Chronic | MD Mari | Jerry | | | Required | | combined | [address] | MD Mario | | | | | systolic and | [address] | [address] | | | | | diastolic | [address] | [address], [address] | | | | | congestive | [place], [place] | [place], | | | | | heart | [address] | [place] [address] | | | | | failure | Phone: | Phone: | | | | | ([facility]) | [phone] | [phone] | | | | | Ischemic | Fax: | Fax: | | | | | cardiomyopat | [phone] | [phone] | | | | | hy | | | + + + + + + + Encounter Details +--------+ + + + + | Date | Type | Department | Care Team | Description | +--------+ + + + + | 06/05/ | Orders Only | [facility] | Mari Mcdaniel, | Chronic combined | | 2019 | | [facility] | [address] | systolic and | | | | [address] | [place], [place]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 | | | | [place], [place] | [id number] | heart failure (HCC) | | | | [address] | | (Primary Dx); | | | | [phone] | | Ischemic | | | | | | cardiomyopathy | +--------+ + + + + Social [...] documented as of this encounter Progress Notes Mari Mcdaniel MD - 06/05/2019 1:04 PM PDTWill need to be evaluated with EP. History of subQ ICD. documented in this encounter Plan of Treatment [...] [place] | | | | | | [address] | | | | | | | [...] | | | | | [place] [address] | | | | | | [phone] | | | | | | | | +--------+ + + + + | 11/25/ | Office | Nephrology | Kei Arthur MD | | | 2019 | Visit | | [address] [facility] | | | | | | [address] [place], [place] | | | | | | [address] | | | | | | | | +--------+ + + + + + + +--------+ + + | Name | Type | Priori | Associated Diagnoses | Order Schedule | | | | ty | | | + + +--------+ + + | Ambulatory referral | Outpatient | Routin | Chronic combined | Ordered: 06/05/2019 | | to [facility] Cardiac | Referral | e | systolic and | | | Electrophysiology | |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 | | | TIFFANIE | | | heart failure (HCC) | | | | | | Ischemic | | | | | | cardiomyopathy | | + + +--------+ + + documented as of this encounter Visit Diagnoses + + | Diagnosis | + + | Chronic combined systolic and diastolic congestive heart failure (HCC) - Primary | | Chronic combined systolic and diastolic heart failure | + + | Ischemic cardiomyopathy Other specified forms of chronic ischemic heart disease | + + documented in this encounter"
--- OUTSIDE RECORDS SUMMARY | ~2019-10-02 | XMS | Encounter Summary ---
Demographics + + + | Address | [address] | | | [place] [address] | + + + | Home Phone [...] + + | Author | [facility] | | | and [place] | + + + | Organization | [facility] | | | and [place] | + + + | Address | Unknown | + + + | Phone | Unavailable | + + + Support + + + + + | Name | Relationship | Address | Phone | + + + + + | Kyaw Woodson | ECON | [place], [place] | | + + + + + | Barbara Cabrera | ECON | Unknown | | + + + + + | Dimple Hathaway | ECON | Unknown | | + + + + + Care Team Providers + +------+ + | Care Household Chores Name | Role | Phone | + +------+ + | Daniel Land NP | PCP | | + +------+ + Encounter Details +--------+ + + + + | Date | Type | Department | Care Team | Description | +--------+ + + + + | 08/30/ | Orders Only | [facility] | Conversion | | | 2016 | | NEPHROLOGY [place] | Transaction, | | | | | [address] [facility] [address] | Provider Unknown | | | | | [address] [facility] [place] | | | | | | [address] | (Fax) | | | | | [phone] | | | +--------+ + + + [...] [address] | | | | | | [facility] | | | | | | [place] | | | | | | [address] | | | | | | | [...] [address] | | | | | | [place] [address] | | | | | | [phone] | | | | | | | | +--------+ + + + + | 11/25/ | Office | Nephrology | Kei Arthur MD | | | 2019 | Visit | | [address] [facility] | | | | | | [facility] | | | | | | [address] | | | | | | | | +--------+ + + + + documented as of this encounter Procedures + +--------+ + + + | Procedure Name | Priori | Date/Time | Associated Diagnosis | Comments | | | ty | | | | + +--------+ + + + | IRON AND IRON | Routin | 08/30/2016 | | Results for this | | BINDING CAPACITY | e | 12:00 AM | | procedure are in the | | | | PST | | results section. | + +--------+ + + + | URINALYSIS, | Routin | 08/30/2016 | | Results for this | | MICROSCOPIC ONLY | e | 12:00 AM | | procedure are in the | | | | PST | | results section. | + +--------+ + + + | HEMOGLOBIN AND | Routin | 08/30/2016 | | Results for this | | HEMATOCRIT | e | 12:00 AM | | procedure are in the | | | | PST | | results section. | + +--------+ + + + | PROTEIN/CREATININE | Routin | 08/30/2016 | | Results for this | | RATIO, URINE | e | 12:00 AM | | procedure are in the | | | | PST | | results section. | + +--------+ + + + | URIC ACID | Routin | 08/30/2016 | | Results for this | | | e | 12:00 AM | | procedure are in the | | | | PST | | results section. | + +--------+ + + + | PARATHYROID HORMONE, | Routin | 08/30/2016 | | Results for this | | INTACT | e | 12:00 AM | | procedure are in the | | | | PST | | results section. | + +--------+ + + + | MAGNESIUM | Routin | 08/30/2016 | | Results for this | | | e | 12:00 AM | | procedure are in the | | | | PST | | results section. | + +--------+ + + + | FERRITIN | Routin | 08/30/2016 | | Results for this | | | e | 12:00 AM | | procedure are in the | | | | PST | | results section. | + +--------+ + + + | RENAL FUNCTION PANEL | Routin | 08/30/2016 | | Results for this | | | e | 12:00 AM | | procedure are in the | | | | PST | | results section. | + +--------+ + + + documented in this encounter Results Hemoglobin and Hematocrit (08/30/2016 12:00 AM PST) + + + + + + | Component | Value | Ref Range | Performed | Pathologist | | | | | At | Signature | + + + + + + | Hgb | 10.6 (A) | 12.0 - 16.0 | EXTERNAL [...] + + Iron and Iron Binding Capacity (08/30/2016 12:00 AM PST) + + + + + + | Component | Value | Ref Range | Performed | Pathologist | | | | | At | Signature | + + + + + + | Iron | 85.97 | 37 - 160 | EXTERNAL | | | | | | LAB | | + + + + + + | Iron | 18.3 (A) | 20 - 55 | EXTERNAL | | | Saturation | | | LAB | | + + + + + + | TIBC | 469 (A) | 245 - 400 | EXTERNAL [...] + +---------+ + + Protein/Creatinine Ratio, Urine (08/30/2016 12:00 AM PST) + + + + + + | Component | Value | Ref Range | Performed | Pathologist | | | | | At | Signature | + + + + + + | Protein/Cre | 590.9 (A) | 0 - 150 | EXTERNAL [...] + +---------+ + + Urinalysis, Microscopic Only (08/30/2016 12:00 AM PST) + + + + [...] + + + + | Specific | 1.010 | 1.005 - 1.030 | EXTERNAL | | | [place] | | | LAB | | + [...] | + +---------+ + + Uric Acid (08/30/2016 12:00 AM PST) + +---------+ + + + | Component | Value | Ref Range | Performed | Pathologist | | | | | At | Signature | + +---------+ + + + | Uric Acid | 9.6 (A) | 2.3 - 6.6 | EXTERNAL [...] + +---------+ + + Parathyroid Hormone, Intact (08/30/2016 12:00 AM PST) + + + + + + | Component | Value | Ref Range | Performed | Pathologist | | | | | At | Signature | + + + + + + | PTH INTACT | 136.0 (A) | 15 - 65 pg/mL | [...] | | + +---------+ + + Magnesium (08/30/2016 12:00 AM PST) + +-------+ + + [...] | | + +---------+ + + Ferritin (08/30/2016 12:00 AM PST) + + + + + + | Component | Value | Ref Range | Performed | Pathologist | | | | | At | Signature | + + + + + + | Ferritin, | 743.5 (A) | 13 - 150 ng/mL | [...] + +---------+ + + Renal Function Panel (08/30/2016 12:00 AM PST) + + + + [...] + + + + | Creatinine | 2.19 (A) | 0.60 - 1.35 | EXTERNAL [...] + + + | Anion Gap | 21.6 (A) | 7 - 21 mmol/L | EXTERNAL | | | | | | LAB | | + + + + + + | eGFR if not | | | EXTERNAL | | | | | | LAB | | | [place] | | | | | + + + + + + | Phosphorus, | 4.4 | 2.5 - 5.0 | EXTERNAL | | | Inorganic | | | LAB | | + + + + + + | BUN/Creatin | 19.6 | 6.0 - 28.6 | EXTERNAL | | | ine Ratio | | | LAB | | + + + + + + | Calcium | 9.6 | 8.4 - 10.2 | EXTERNAL | | | | | mg/dL | LAB | | + + + + + + | Estimated | 24 | mg/dL | EXTERNAL | | | [...]
--- OUTSIDE RECORDS SUMMARY | ~2019-10-02 | XMS | Encounter Summary ---
Demographics + + + | Address | [address] | | | [place] [address] | + + + | Home Phone | | + + + | Preferred Language | Unknown | + + + | Marital Status | Single | + + + | Advent Affiliation | 1041 | + + + | Race | Unknown | + + + | Ethnic Group | Unknown | + + + Author + + + | Author | [facility] | | | and [place] | + + + | Organization | [facility] | | | and [place] | + + + | Address | Unknown | + + + | Phone | Unavailable | + + + Support + + + + + | Name | Relationship | Address | Phone | + + + + + | Kyaw Woodson | ECON | [place], [place] | | + + + + + | Barbara Cabrera | ECON | Unknown | | + + + + + | Dimple Hathaway | ECON | Unknown | | + + + + + Care Team Providers + +------+ + | Care Salesperson Women'S Hats Name | Role | Phone | + +------+ + PCP | Unavailable | + +------+ + Encounter Details +--------+---------+ + + + | Date | Type | Department | Care Team | Description | +--------+---------+ + + + | 05/16/ | Office | [facility] | Kei Arthur MD | CKD (chronic kidney | | 2019 | Visit | NEPHROLOGY [place] | [address] [place] | disease) stage 3, | | | | [address] [place] | [address] [facility] [place] | GFR 30-59 ml/min | | | | [address] [facility], [place] | [address] | [facility]) (Primary Dx); | | | | [address] | | Ischemic | | | | [phone] | | cardiomyopathy; | | | | | | Normocytic anemia; | | | | | | Persistent [...] + + + | Blood Pressure | 105/64 | 05/16/2019 5:19 PM | | | | | PDT | | + + + + + | Pulse | 71 | 05/16/2019 5:19 PM | | | | | PDT | | + + + + + | Temperature | - | - | | + + + + + | Respiratory Rate | - | - | | + + + + + | Oxygen Saturation | 98% | 05/16/2019 5:19 PM | | | [...] Height | 177.8 cm (5' 10") | 05/16/2019 5:19 PM | | | | | PDT | | + + + + + | Body Mass Index | 35.28 | 05/16/2019 5:19 PM | | | | | PDT | | + + + + + documented in this encounter Patient Instructions Patient Instructions Kei Arthur MD - 05/16/2019 4:40 PM PDTDiscussions/Recommendations : I discussed today with Ms. Caballero the meaning of her severe CKD and the interaction of that with her hemodynamics & history of heavy NSAID intake. I stressed the importance of keeping her BG & BP controlled and avoiding getting dehydra emanuel if we are to have a chance at helping preserve her renal function. She showed good unde rstanding. I gave her instructions on how to chart her blood pressure in the appropriate manner at home. She is to call us if they fall outside of the optimal provided range. She will bring her sphygmomanometer for validation once a year. She will strictly abide by a low salt & low purine diet and will avoid all kinds of NSAI Ds for analgesia. Also: I recommend that her Noel catheter be removed at this time; I will leave the timing of ofelia t up to the primary team taking care of her (as she still is taking her post-op analgesics). I recommend not stopping her Metoprolol Succinate for "Low BP's" given her history of sever e LV systolic dysfunction; rather, please consider giving her at least half of the dose of t hat medication on those days. Please check with the Cardiology team on that. I decreased her total liquid intake from 3L a day to 2 L a day. I will not change any of her vasoactive meds today. She will report back to me her home BP readings if they fall outside of the optimal prov ided range. At that time, I will decide whether any change to his vasoactive regimen is irish anted. I sent her for a repeat RFP, CBC in 6 weeks. She will continue to F/U with your office & the Endocrinology regularly. She will have a RFP, CBC, uric acid, iPTH, UTPCR before she comes back in 3 months. 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 (H CC) CKD (chronic kidney disease), stage IV Vitamin D deficiency Persistent proteinuria Anemia of chronic renal failure, stage 4 (severe) (HCC) Hyperuricemia ICD (implantable cardioverter-defibrillator), single, in situ Iron deficiency Abrasion Type 2 diabetes mellitus with diabetic nephropathy, with long-term current use of insul in (HCC) Iron deficiency anemia Localized edema Secondary hyperparathyroidism (HCC) Electrolyte imbalance risk 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 Caballero in the office in hospital F/U on an urgent basis today. s he is here to F/U on her severe CKD & its associated complications. Her eGFR was normal in 0 03/2014. In 03/2015, her SCr & eGFR were 2.4 & 22. Repeat on 05/27/15: 2.06 & 26. She went on Ibuprofen 800 mg BID since late summer 2013, for her left leg pain. (She stopped the Ibuprof en 05/2015). In 03/2019, she had right-sided above-knee amputation for gangrene of right lower extremity with sepsis. The patient has history of hypertension since ~1989, Diabetes Mellitus since 1990. her BG a nd BP control has been reportedly adequate. she denies any history of prolonged exposure to known nephrotoxins. she denies any recurrent nephrolithiasis or pyelonephritis. she tells me that she's had no history of urinary retention, gross hematuria or dysuria. she has no inco ntinence symptoms. She did have some symptoms of UTI: new dysuria, some foul smelling urin e, cloudy; she has 1 time nightly nocturia. No history of passing kidney stones. she has no foamy urine either. her baseline Creatinine is TBD. There is no family history of renal genetic diseases such as PKD. she says that she feels 'so so' today. she denies any blurred vision tinnitus, headache, f ever, chills, or cough. No nausea, vomiting, abdominal pain, diarrhea, melena, or hematoche rita. No chest pain, palpitation, dizziness, loss of consciousness, orthopnea, paroxysmal no cturnal dyspnea; on-off leg edema. Has a chronic low back pain. The following portions of the patient's history were reviewed and updated as appropriate: a llergies, current medications, past medical history, past social history, past surgical hist ory, family history and problem list. *( U/S from 05/2015: no evidence of any significant renal anatomic abnormalities.) As in History of Present Illness & in Assessment. All the pertinent systems were reviewed a nd were otherwise negative. Current Outpatient Medications Medication Sig Dispense Refill [...] BY MOUTH TWICE DAILY 360 tablet 1 traZODone (DESYREL) 50 mg tablet Take 50 mg by mouth nightly. venlafaxine (EFFEXOR XR) 150 mg 24 hr capsule No current facility-administered medications for this visit. Physical Exam: BP 105/64 | Pulse 71 | Ht 1.778 m (5' 10") | Wt 111.5 kg (245 lb 14.4 oz) | SpO2 98% | BMI 35.28 kg/m General appearance: Pleasant, not in acute distress. Neck: Supple without tracheal deviation or jugular venous distension. Head and ENT: Head is atraumatic. The oropharynx is without erythema or thrush. Ne hearing deficit. Eyes: Anicteric. The extraocular muscle movements are normal. Lungs: Clear to auscultation bilaterally. There are no wheezes. Heart: Regular rate and rhythm without any rub, gallop. Grade 2 systolic murmur best at th e LSB. Abdominal exam: Obese. Soft and nontender with normal bowel sounds. Musculoskeletal: No costovertebral angle tenderness bilaterally. Extremities: Warm to touch with trace right leg edema. There is no cyanosis. She has a BK A on the left. Skin: There are no rashes, petechiae, or ecchymosis. Neurological: Awake, alert, and oriented to time, place, and person. Normal gross motor po wer. There is no asterixis. Psychiatric: The patient s behavior is normal. Judgment and thought content are normal. Lab Results Component Value Date BUN 53 (A) 07/27/2018 CREATININE 3.02 (A) 07/27/2018 EGFR 17 07/27/2018 NA 139 07/27/2018 K 4.6 07/27/2018 CL 100 07/27/2018 CO2 19 07/27/2018 CA 9.3 07/27/2018 PHOS 3.5 07/27/2018 MG 1.7 07/27/2018 ALB 4.1 07/27/2018 HGB 11 (A) 07/27/2018 URICACID 8.1 (A) 01/18/2018 WBC 11 07/27/2018 HCT 33.8 (A) 07/27/2018 FERRITIN 822.0 (A) 01/18/2018 LABIRON 25.9 01/18/2018 LABPROT 653.8 (A) 07/27/2018 [id number] 41 12/22/2017 Assessment: Ms. Caballero is a 48 y.o. female patient with stage III CKD secondary to history of chronic intake of high dose Ibuprofen + longstanding diabetes. 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 [Of note: 11/2017 her 24-hr urine collection for CrCl showed that her MDRD eGFR underestima emanuel her true kidney function by 10-15 mL/min] RENAL FUNCTION: Was slightly worse GFR over the years; now is better vs 05/2016 BLOOD PRESSURE: Reports in the 90's-110's systolic BLOOD SUGAR: Reports it relatively controlled ELECTROLYTES: Mild hyponatremia; moderate-severe metabolic acidosis is better with treatm ent ANEMIA: Mild; her Fe deficiency was severe but her Ferritin is severely up VITAMIN D: Deficiency is being treated PARATHYROID HORMONE: Mildly up for her URIC ACID: Hyperuricemia is better with treatment PROTEINURIA: Mild-moderate (had no significant albuminuria in 03/2015) URINALYSIS: Her UTI sxs resolved; she has a colonizer E coli; no hematuria VOLUME STATUS: Euvolumic. Discussions/Recommendations: [Of note: 11/2017 her 24-hr urine collection for CrCl showed t hat her MDRD eGFR underestimated her true kidney function by 10-15 mL/min] I discussed today with Ms. Caballero the meaning of her severe CKD and the interaction of that with her hemodynamics & history of heavy NSAID intake. I stressed the importance of keeping her BG & BP controlled and avoiding getting dehydra emanuel if we are to have a chance at helping preserve her renal function. She showed good unde rstanding. I gave her instructions on how to chart her blood pressure in the appropriate manner at home. She is to call us if they fall outside of the optimal provided range. She will bring her sphygmomanometer for validation once a year. She will strictly abide by a low salt & low purine diet and will avoid all kinds of NSAI Ds for analgesia. Also: I recommend that her Noel catheter be removed at this time; I will leave the timing of ofelia t up to the primary team taking care of her (as she still is taking her post-op analgesics). I recommend not stopping her Metoprolol Succinate for "Low BP's" given her history of sever e LV systolic dysfunction; rather, please consider giving her at least half of the dose of t hat medication on those days. Please check with the Cardiology team on that. I decreased her total liquid intake from 3L a day to 2 L a day. I will not change any of her vasoactive meds today. I am unable to uptitrate her RAAS inhibition at this time because of her low GFR & its inst ability. She will report back to me her home BP readings if they fall outside of the optimal prov ided range. At that time, I will decide whether any change to his vasoactive regimen is irish anted. I sent her for a repeat RFP, CBC in 6 weeks. She will continue to F/U with your office & the Endocrinology regularly. She will have a RFP, CBC, uric acid, iPTH, UTPCR before she comes back in 3 months. Thank you Daniel for the opportunity to see this patient in hospital F/U on an urgent basis aiyana javed. Please do not hesitate to call me at any time with questions or concerns. Truly yours, Kei Arthur MD [facility] documented in this enco unter Plan of Treatment +--------+ + + + [...] [place] | | | | | | [id number] | | | | | | | [...] | | | | | [place] [address] | | | | | | [phone] | | | | | | | | +--------+ + + + + | 11/25/ | Office | Nephrology | Kei Arthur MD | | | 2019 | Visit | | [address] [facility] [address] | | | | | | [address] [place] | | | | | | [address] | | | | | | | | +--------+ + + + + documented as of this encounter Visit Diagnoses + + | Diagnosis | + + | CKD (chronic kidney disease) stage 3, GFR 30-59 ml/min ([facility]) - Primary Chronic kidney | | disease, Stage III (moderate) | + + | Ischemic cardiomyopathy Other specified forms of chronic ischemic heart disease | + + | Normocytic anemia Anemia, unspecified | + + | Persistent proteinuria Proteinuria | + + | Secondary hyperparathyroidism (HCC) Secondary hyperparathyroidism (of renal origin) | + + documented in this encounter
--- OUTSIDE RECORDS SUMMARY | ~2019-10-02 | XMS | Encounter Summary ---
Demographics + + + | Address | [address] | | | [place] [address] | + + + | Home Phone [...] + | Author | [facility] | | | and [place] | + + + | Organization | [facility] | | | and [place] | + + + | Address | Unknown | + + + | Phone | Unavailable | + + + Support + + + + + | Name | Relationship | Address | Phone | + + + + + | Kyaw Woodson | ECON | [place], [place] | | + + + + + | Barbara Cabrera | ECON | Unknown | | + + + + + | Dimple Hathaway | ECON | Unknown | | + + + + + Care Team Providers + +------+ + | Care Hammer Fitter Name | Role | Phone | + +------+ + | Daniel Land NP | PCP | | + +------+ + Encounter Details +--------+ + + + + | Date | Type | Department | Care Team | Description | +--------+ + + + + | 05/28/ | Orders Only | [facility] | Conversion | | | 2017 | | [place]PRHOLOGY [place] | Transaction, | | | | | [address] | Provider Unknown | | | | | [address] [place] | [phone] | | | | | [address] | | | | | | [phone] | | | +--------+ + + + [...] | | | | | [address] [facility] | | | | | | [place] | | | | | | [address] | | | | | | | [...] | | | | | [place] [address] | | | | | | [phone] | | | | | | | | +--------+ + + + + | 11/25/ | Office | Nephrology | Kei Arthur MD | | | 2019 | Visit | | [address] [facility] | | | | | | [address] [place] | | | | | | [address] | | | | | | | [...]
--- OUTSIDE RECORDS SUMMARY | ~2019-10-02 | XMS | Encounter Summary ---
Demographics + + + | Address | [address] | | | [place] [address] | + + + | Home Phone | | + + + | Preferred Language | Unknown | + + + | Marital Status | Single | + + + | Faith Affiliation | UNK | + + + | Race | White | + + + | Ethnic Group | Not or | + + + Author + + + | Author | [facility] | + + + | Organization | [facility] | + + + | Address | Unknown | + + + | Phone | Unavailable | + + + Support + + +---------+ + | Name | Relationship | Address | Phone | + + +---------+ + | Valentine Qiu | ECON | Unknown | | + + +---------+ + Care Team Providers + +------+ + | Care Manager Renewable Energy Name | Role | Phone | + +------+ + | Jennyfer Gresham MD | PCP | | + +------+ + Encounter Details +--------+ + + + + | Date | Type | Department | Care Team | Description | +--------+ + + + + | 09/07/ | Documentati | [facility] | Danielito Crockett MD,PhD | | | 2018 | on | [facility] | [address] | | | | | at [place] [address] | [address] | | | | | [facility] | [place], [place] | | | | | Mailcode: MIC[address]EL | [address] | | | | | [place] [address] | [phone] | | | | | [phone] | | | +--------+ + + + [...]
--- OUTSIDE RECORDS SUMMARY | ~2019-10-02 | XMS | Encounter Summary ---
Demographics + + + | Address | [address] | | | [place] [address] | + + + | Home Phone | | + + + | Preferred Language | Unknown | + + + | Marital Status | Single | + + + | Advent Affiliation | UNK | + + + | Race | White | + + + | Ethnic Group | Not or | + + + Author + + + | Author | [facility] | + + + | Organization | [facility] | + + + | Address | Unknown | + + + | Phone | Unavailable | + + + Support + + +---------+ + | Name | Relationship | Address | Phone | + + +---------+ + | Valentine Qiu | ECON | Unknown | | + + +---------+ + Care Team Providers + +------+ + | Care Inspector Tester Sorter Name | Role | Phone | + [...] | | | | | | | [place], [place] | | | | | | | [address] | | | | | | | Phone: | | | | | | | [phone] | | | | | | | Fax: | | | | | | | [phone] | +--------+--------+ + + + + Encounter Details +--------+---------+ + + + | Date | Type | Department | Care Team | Description | +--------+---------+ + + + | 12/15/ | Office | [facility] | Jaelyn Watters, | 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 An yuza-ebb-swlqavu pain reliever (i.e. Tylenol) can be used [...] Maldonado R - 12/15/2017 2:45 PM PDT [facility] Progress Note 12/15/2017 [...] in general health; BS bounding around but boot repairer is working on it - 146 this [...] Diagnosis Date Amputated finger Amputated left leg ([facility]) Anemia Anxiety CAD (coronary artery disease) Cardiac defibrillator in situ CHF (congestive heart failure) ([facility]) Depression Diabetes ([facility]) Diabetes mellitus, type 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 Examination: See Ophthalmology Module Attestations: The electronic bench technician, under the supervision of the physician, [...] Performed At | + + + | Software Lead | [facility] | | [facility]: [...] [facility] | [address] | [place] [address] | | | MARTIN | [place]. | | | + + + + + KERRY CASTRO (08/01/2018 2:56 PM PST) + + + | Narrative | Performed At | + + + | Software Lead | [facility] | | [facility]: [...] | + + + + + | [facility] | [address] | [place] [address] | | | INSTITUTE | [place]. | | | + + + + + OCT, RETINA (04/06/2018 1:23 PM PDT) + + + | Narrative | Performed At | + + + | Software Lead | [facility] | | [facility]: good Central [...] | + + + + + | [facility] | [address] | [place] [address] | | | INSTITUTE | [place]. | [...] bevacizumab 1.25 mg/0.05 mL | | | [facility]: [id number] | | | Lot: [id number] | | | Expiration Date: 12/16/2017 [...] bevacizumab 1.25 mg/0.05 mL | | | [facility]: [id number] | | | Lot: [id number] | | | Expiration Date: 12/16/2017 [...] Performed At | + + + | Software Lead | [facility] | | [facility]: [...] [facility] | [address] | [place] [address] | | | INSTITUTE | [place]. | | | + + + + + MATTHEW, RETINA (12/15/2017 3:14 PM PDT) + + + | Narrative | Performed At | + + + | Software Lead | [facility] | | [facility]: [...] [facility] | [address] | [place] [address] | | | MARTIN | [place]. | [...] PDT | | | | | Starting [facility] 12/15/17 at 1629, | | | | | | | Until [facility] 12/15/17 at 1629 | | | | [...] PDT | | | | | Starting [facility] 12/15/17 at 1629, | | | | | | | Until [facility] 12/15/17 at 1629 | | | | | | + +-------+ +---------+---+ + +---+---+ | | | +---+---+ documented in this encounter"
--- OUTSIDE RECORDS SUMMARY | ~2019-10-02 | XMS | Encounter Summary ---
Demographics + + + | Address | [address] | | | [place] [address] | + + + | Home Phone | | + + + | Preferred Language | Unknown | + + + | Marital Status | Single | + + + | Synagogue Affiliation | 1041 | + + + | Race | Unknown | + + + | Ethnic Group | Unknown | + + + Author + + + | Author | [facility] | | | and [place] | + + + | Organization | [facility] | | | and [place] | + + + | Address | Unknown | + + + | Phone | Unavailable | + + + Support + + + + + | Name | Relationship | Address | Phone | + + + + + | Kyaw Woodson | ECON | [place], [place] | | + + + + + | Barbara Cabrera | ECON | Unknown | | + + + + + | Dimple Hathaway | ECON | Unknown | | + + + + + Care Team Providers + +------+ + | Care Customer Success Manager Name | Role | Phone | + +------+ + | No, Physician | PCP | Unavailable | + +------+ + Reason for Visit + + + | Reason | Comments | + + + | Referral | Needs to speak w/ Pensions Retirement Plan Specialist | + + + Encounter Details +--------+ + + + + | Date | Type | Department | Care Team | Description | +--------+ + + + + | 05/10/ | Telephone | [facility] | Waldemar Smith, | Referral (Needs to | | 2019 | | ENDOCRINOLOGY [address] | speak w/ Referral | | | | [address] | [place], | Coordinator) | | | | [place] | [place] [address] | | | | | [address] | [phone] | | | | | [phone] | | | +--------+ + + + [...] [place] | | | | | | [address] | | | | | | | [...] | | | | | [place] [address] | | | | | | [phone] | | | | | | | | +--------+ + + + + | 11/25/ | Office | Nephrology | Kei Arthur MD | | | 2020 | Visit | | [address] [facility] | | | | | | [address] [place] [place] | | | | | | [address] | | | | | | | | +--------+ + + + + documented as of this encounter Visit Diagnoses Not on filedocumented in this encounter"
--- OUTSIDE RECORDS SUMMARY | ~2019-10-02 | XMS | Encounter Summary ---
Demographics + + + | Address | [address] | | | [place] [address] | + + + | Home Phone [...] | Organization | [facility] | | | and [place] | + + + | Address | Unknown | + + + | Phone | Unavailable | + + + Support + + + + + | Name | Relationship | Address | Phone | + + + + + | Kyaw Woodson | ECON | [place], [place] | | + + + + + | Barbara Cabrera | ECON | Unknown | | + + + + + | Dimple Hathaway | ECON | Unknown | | + + + + + Care Team Providers + +------+ + | Care Unit Control Clerk Name | Role | Phone | + +------+ + | Daniel Land NP | PCP | | + +------+ + Encounter Details +--------+ + + + + | Date | Type | Department | Care Team | Description | +--------+ + + + + | 01/27/ | Orders Only | [facility] | Kei Arthur MD | | | 2015 | | [facility] | [address] [place] | | | | | [address] [place] | [address] [place], [place] | | | | | [address] [place], [place] | [id number] | | | | | [address] | | | | | | [phone] | | | +--------+ + + + [...] [address] | | | | | | [facility] | | | | | | [place] | | | | | | [address] | | | | | | | [...] 206 | | | | | | [place] [address] | | | | | | [phone] | | | | | | | | +--------+ + + + + | 11/25/ | Office | Nephrology | Kei Arthur MD | | | 2019 | Visit | | [address] [facility] | | | | | | [address] [place] | | | | | | [address] | | | | | | | | +--------+ + + + + documented as of this encounter Procedures + +--------+ + + + | Procedure Name | Priori | Date/Time | Associated Diagnosis | Comments | | | ty | | | | + +--------+ + + + | IRON AND IRON | Routin | 01/28/2016 | | Results for this | | BINDING CAPACITY | e | 9:05 AM | | procedure are in the | | | | PDT | | results section. | + +--------+ + + + | URINALYSIS WITH | Routin | 01/28/2016 | | Results for this | | MICROSCOPIC IF | e | 9:05 AM | | procedure are in the | | INDICATED | | PDT | | results section. | + +--------+ + + + | HEMOGLOBIN AND | Routin | 01/28/2016 | | Results for this | | HEMATOCRIT | e | 9:05 AM | | procedure are in the | | | | PDT | | results section. | + +--------+ + + + | PROTEIN/CREATININE | Routin | 01/28/2016 | | Results for this | | RATIO, URINE | e | 9:05 AM | | procedure are in the | | | | PDT | | results section. | + +--------+ + + + | URIC ACID | Routin | 01/28/2016 | | Results for this | | | e | 9:05 AM | | procedure are in the | | | | PDT | | results section. | + +--------+ + + + | MAGNESIUM | Routin | 01/28/2016 | | Results for this | | | e | 9:05 AM | | procedure are in the | | | | PDT | | results section. | + +--------+ + + + | FERRITIN | Routin | 01/28/2016 | | Results for this | | | e | 9:05 AM | | procedure are in the | | | | PDT | | results section. | + +--------+ + + + | RENAL FUNCTION PANEL | Routin | 01/28/2016 | | Results for this | | | e | 9:05 AM | | procedure are in the | | | | PDT | | results section. | + +--------+ + + + documented in this encounter Results Hemoglobin and Hematocrit (01/28/2016 9:05 AM PDT) + + + + + [...] + + + + | Hematocrit, | 32.4 (A) | 35 - 45 % | [...] + + Iron and Iron Binding Capacity (01/28/2016 9:05 AM PDT) + + + + + + | Component | Value | Ref Range | Performed | Pathologist | | | | | At | Signature | + + + + + + | Iron | 60.67 | 37 - 160 | EXTERNAL | | | | | | LAB | | + + + + + + | Iron | 14.8 (A) | 20 - 55 | EXTERNAL | | | Saturation | | | LAB | | + + + + + + | TIBC | 410 (A) | 245 - 400 | EXTERNAL [...] + +---------+ + + Protein/Creatinine Ratio, Urine (01/28/2016 9:05 AM PDT) + +-------+ + + + | Component | Value | Ref Range | Performed | Pathologist | | | | | At | Signature | + +-------+ + + + | Protein/Cre | 67.6 | 0 - 150 | EXTERNAL | [...] + + Urinalysis with Microscopic if Indicated (01/28/2016 9:05 AM PDT) + + + + + [...] + + + | Leukocyte | Comment: 500 | | EXTERNAL | | | Esterase, [...] | + +---------+ + + Uric Acid (01/28/2016 9:05 AM PDT) + +---------+ + + + | Component | Value | Ref Range | Performed | Pathologist | | | | | At | Signature | + +---------+ + + + | Uric Acid | 7.9 (A) | 2.3 - 6.6 | EXTERNAL [...] | | + +---------+ + + Magnesium (01/28/2016 9:05 AM PDT) + +-------+ + + + [...] | | + +---------+ + + Ferritin (01/28/2016 9:05 AM PDT) + + + + + + | Component | Value | Ref Range | Performed | Pathologist | | | | | At | Signature | + + + + + + | Ferritin, | 633.3 (A) | 13 - 150 ng/mL | [...] + +---------+ + + Renal Function Panel (01/28/2016 9:05 AM PDT) + + + + + [...] + + + + | BUN | 26 (A) | 6 - 23 mg/dL | EXTERNAL | | | | | | LAB | | + + + + + + | Creatinine | 2.06 (A) | 0.60 - 1.35 | EXTERNAL | | | | | mg/dL | LAB | | + + + + + + | PHOSPHORUS | 4.7 | 2.5 - 5.0 mg/dL | EXTERNAL [...] + + + + | K | 4.9 | 3.6 - 5.1 | EXTERNAL | [...] + + + | Anion Gap | 18.9 | 7 - 21 mmol/L | EXTERNAL | | | | | | LAB | | + + + + + + | eGFR if not | | | EXTERNAL | | | | | | LAB | | | [facility]ARTIN[facility] | | | | | + + + + + + | Phosphorus, | | | EXTERNAL | | | Inorganic | | | LAB | | + + + + + + | BUN/Creatin | 12.6 | 6.0 - 28.6 | EXTERNAL | | | ine Ratio | | | LAB | | + + + + + + | Calcium | 9.8 | 8.4 - 10.2 | EXTERNAL | | | | | mg/dL | LAB | | + + + + + + | Estimated | 26 | mg/dL | EXTERNAL | | | [...]
--- OUTSIDE RECORDS SUMMARY | ~2019-10-02 | XMS | Encounter Summary ---
Demographics + + + | Address | [address] | | | [place] [address] | + + + | Home Phone | | + + + | Preferred Language | Unknown | + + + | Marital Status | Single | + + + | Mandaeism Affiliation | 1041 | + + + | Race | Unknown | + + + | Ethnic Group | Unknown | + + + Author + + + | Author | [facility] | | | and [place] | + + + | Organization | [facility] | | | and [place] | + + + | Address | Unknown | + + + | Phone | Unavailable | + + + Support + + + + + | Name | Relationship | Address | Phone | + + + + + | Kyaw Woodson | ECON | [place], [place] | | + + + + + | Barbara Cabrera | ECON | Unknown | | + + + + + | Dimple Hathaway | ECON | Unknown | | + + + + + Care Team Providers + +------+ + | Care Detacker Name | Role | Phone | + +------+ + PCP | Unavailable | + +------+ + Encounter Details +--------+ + + + + | Date | Type | Department | Care Team | Description | +--------+ + + + + | 11/30/ | Hospital [facility] | Jerry [place], | | | 1999 | Encounter | [facility] | [place] [address] | | | | | [address] [address] | [facility] | | | | | [facility] | [place] [address] | | | | | [place], [place] | [phone] | | | | | [address] | | | | | | [phone] | | | +--------+ + + + [...] [place] | | | | | | [address] | | | | | | | [...] | | | | | [place] [address] | | | | | | [phone] | | | | | | | | +--------+ + + + + | 11/25/ | Office | Nephrology | Kei Arthur MD | | | 2020 | Visit | | [address] [facility] | | | | | | [address] [place] | | | | | | [address] | | | | | | | | +--------+ + + + + documented as of this encounter Visit Diagnoses Not on filedocumented in this encounter"
--- OUTSIDE RECORDS SUMMARY | ~2019-10-02 | XMS | Encounter Summary ---
Demographics + + + | Address | [address] | | | [place] [address] | + + + | Home Phone [...] + + + | Author | [facility] | | | and [place] | + + + | Organization | [facility] | | | and [place] | + + + | Address | Unknown | + + + | Phone | Unavailable | + + + Support + + + + + | Name | Relationship | Address | Phone | + + + + + | Kyaw Woodson | ECON | [place], [place] | | + + + + + | Barbara Cabrera | ECON | Unknown | | + + + + + | Dimple Hathaway | ECON | Unknown | | + + + + + Care Team Providers + +------+ + | Care Tafe Teacher Name | Role | Phone | + +------+ + | Jennyfer Gresham MD | PCP | | + +------+ + Encounter Details +--------+ + + + + | Date | Type | Department | Care Team | Description | +--------+ + + + + | 11/08/ | Orders Only | [facility] | Mari Mcdaniel, | | | 2019 | | CARDIOLOGY [place] | [address] | | | | | [address] | [address] [place], [place] | | | | | [place], [place] | [address] | | | | | [address] | | | | | | [phone] | | | +--------+ + + + [...] [place] | | | | | | [address] | | | | | | | [...] | | | | | | [place] [address] | | | | | | [phone] | | | | | | | | +--------+ + + + + | 11/25/ | Office | Nephrology | Kei Arthur MD | | | 2020 | Visit | | [address] | | | | | | [address] [place] | | | | | | [address] | | | | | | | | +--------+ + + + + documented as of this encounter Visit Diagnoses Not on filedocumented in this encounter"
--- OUTSIDE RECORDS SUMMARY | ~2019-10-02 | XMS | Encounter Summary ---
Demographics + + + | Address | [address] | | | [place] [address] | + + + | Home Phone [...] Organization | [facility] | | | and [place] | + + + | Address | Unknown | + + + | Phone | Unavailable | + + + Support + + + + + | Name | Relationship | Address | Phone | + + + + + | Kyaw Woodson | ECON | [place], [place] | | + + + + + | Barbara Cabrera | ECON | Unknown | | + + + + + | Dimple Hathaway | ECON | Unknown | | + + + + + Care Team Providers + +------+ + | Care Macerator Operator Name | Role | Phone | [...] | | | | [address] | [place] | | | | | [place], [place] | [place] [address] | | | | | [address] | [phone] | | | | | [phone] | | | +--------+ + + + [...] | | | | | | [facility] | | | | | | [address] | | | | | | | [...] [address] | | | | | | [place] [address] | | | | | | [phone] | | | | | | | | +--------+ + + + + | 11/25/ | Office | Nephrology | Kei Arthur MD | | | 2019 | Visit | | [address] [facility] | | | | | | [address] [place] | | | | | | [address] | | | | | | | [...] TR maxP.13 mmHg TR Vmax: 1.66 m/s Red Mud Thickener Operator: | | | DBS Authenticated by: Mari [...] cmLVPWd: 0.88 cmLVOT | | Area: 3.27 [id number] Diam: 2.04 cm%FS: 28.23 %EF(Teich): 53.85 %ESV(Teich): [...] mlLAESV Index (A-L): 36.67 ml/m2LAAs A2C: 25.30 [id number] | | A-L A2C: 93.02 mlLAESV MOD A2C: 85.79 mlLALs A2C: 5.84 cmLAAs A4C: 23.01 | | fp6PLMFA A-L A4C: 81.67 mlLAESV MOD A4C: 75.96 mlLALs A4C: 5.68 cmRAAs: 15.40 | | [id number] A-L: 39.74 mlRAESV MOD: 38.31 mlRALs: 5.06 cmTAPSE: 2.25 cmAV maxPG: | | 7.38 mmHgAV meanP.47 mmHgAV Vmax: 1.35 m/Jordan Vmean: 1.00 m/Jordan VTI: 26.87 | | cmAVA Vmax: 2.36 cm2AVA (VTI): 2.28 dp0XFUB Vmax: 0.00 cm2/m2AVAI (VTI): 0.00 | | cm2/m2LVOT maxP.85 mmHgLVOT meanP.16 mmHgLVSI Dopp: 25.96 ml/m2LVSV Dopp: | | 61.53 mlLVOT Vmax: 0.98 m/sLVOT Vmean: 0.67 m/sLVOT VTI: 18.77 cmMV A Navid: | | 1.23 m/sMV DecT: 179.18 msMV E Navid: 1.30 m/sMV E/A Ratio: 1.06MV PHT: 51.96 | | msMVA By PHT: 4.23 zp5Jbrrkg e': 0.05 m/sSeptal E/e': 22.42Lateral e': 0.05 | | m/sLateral E/e': 22.35RAP: 10 mmHgRVSP: 21.13 mmHgTR maxP.13 mmHgTR Vmax: | | 1.66 m/s Red Mud Thickener Operator: TREVERAuthenticated by: Mari [facility] Date/Time: 03-24-2017 | | 14:00:48 IMPRESSION: 1. [...] |MV DecT: 179.18 ms | |MV E Nvaid: 1.30 m/s | |MV E/A Ratio: 1.06 | |MV PHT: 51.96 ms | |MVA By PHT: 4.23 cm2 | |Septal e': 0.05 m/s | |Septal E/e': 22.42 | |Lateral e': 0.05 m/s | |Lateral E/e': 22.35 | |RAP: 10 mmHg | |RVSP: 21.13 mmHg | |TR maxP.13 mmHg | |TR Vmax: 1.66 m/s | | | |Red Mud Thickener Operator: DBS | |Authenticated by: Mari Mcdaniel | [...]
--- OUTSIDE RECORDS SUMMARY | ~2019-10-02 | XMS | Encounter Summary ---
Demographics + + + | Address | [address] | | | [place] [address] | + + + | Home Phone [...] Organization | [facility] | | | and [place] | + + + | Address | Unknown | + + + | Phone | Unavailable | + + + Support + + + + + | Name | Relationship | Address | Phone | + + + + + | Kyaw Woodson | ECON | [place], [place] | | + + + + + | Barbara Cabrera | ECON | Unknown | | + + + + + | Dimple Hathaway | ECON | Unknown | | + + + + + Care Team Providers + +------+ + | Care Screen Making Supervisor Name | Role | Phone | + +------+ + | Daniel Land NP | PCP | | + +------+ + Encounter Details +--------+ + + + + | Date | Type | Department | Care Team | Description | +--------+ + + + + | 05/27/ | Orders Only | [facility] | Conversion | | | 2016 | | NEPRHOLOGY [place] | Transaction, | | | | | [address] | Provider Unknown | | | | | [address] [place] | [phone] | | | | | [address] | | | | | | [phone] | | | +--------+ + + + [...] | | | | | [address] | | | | | | [place] | | | | | | [address] | | | | | | | [...] | | | | | [place] [address] | | | | | | [phone] | | | | | | | | +--------+ + + + + | 11/25/ | Office | Nephrology | Kei Arthur MD | | | 2019 | Visit | | [address] [facility] | | | | | | [address] [place] | | | | | | [address] | | | | | | | [...] | | | LAB | | | [place] | | | | | + + [...]
--- OUTSIDE RECORDS SUMMARY | ~2019-10-02 | XMS | Encounter Summary ---
Demographics + + + | Address | [address] | | | [place] [address] | + + + | Home Phone [...] | Organization | [facility] | | | and [place] | + + + | Address | Unknown | + + + | Phone | Unavailable | + + + Support + + + + + | Name | Relationship | Address | Phone | + + + + + | Kyaw Woodson | ECON | [place], [place] | | + + + + + | Barbara Cabrera | ECON | Unknown | | + + + + + | Dimple Hathaway | ECON | Unknown | | + + + + + Care Team Providers + +------+ + | Care Change Number Operator Name | Role | Phone | + +------+ + | No, Physician | PCP | Unavailable | + +------+ + Encounter Details +--------+ + + + + | Date | Type | Department | Care Team | Description | +--------+ + + + + | 05/31/ | Orders Only | [facility] | Conversion | | | 2018 | | NEPHROLOGY [place] | Transaction, | | | | | [address] | Provider Unknown | | | | | [address] [facility] [place] | | | | | | [address] | (Fax) | | | | | [phone] | | | +--------+ + + + [...] [place] | | | | | | [id number] | | | | | | | [...] | | | | | [place] [address] | | | | | | [phone] | | | | | | | | +--------+ + + + + | 11/25/ | Office | Nephrology | Kei Arthur MD | | | 2019 | Visit | | [address] [facility] | | | | | | [address] [place], [place] | | | | | | [address] | | | | | | | [...] - 1.030 | EXTERNAL | | | [place] | | | LAB | | + [...]
--- OUTSIDE RECORDS SUMMARY | ~2019-10-02 | XMS | Encounter Summary ---
Demographics + + + | Address | [address] | | | [place] [address] | + + + | Home Phone [...] + + + | Author | [facility] | | | and [place] | + + + | Organization | [facility] | | | and [place] | + + + | Address | Unknown | + + + | Phone | Unavailable | + + + Support + + + + + | Name | Relationship | Address | Phone | + + + + + | Kyaw Woodson | ECON | [place], [place] | | + + + + + | Barbara Cabrera | ECON | Unknown | | + + + + + | Dimple Hathaway | ECON | Unknown | | + + + + + Care Team Providers + +------+ + | Care Straight Knife Cutter Machine Name | Role | Phone | + [...] Description | +--------+---------+ + + + | 05/24/ | Office | [facility] | Ro Breen, CATINA | PAD (peripheral | | 2019 | Visit | VASCULAR SURGERY | [address] | artery disease) | | | | [address] [place] | [place], [place] | ([facility]) (Primary Dx); | | | | [place], [place] | [address] | S/P AKA (above knee | | | | [address] | | amputation), right | | | | [phone] | | (HCC) | +--------+---------+ + + [...] +---------+ + + | Blood Pressure | 115/65 | 05/24/2019 1:03 PM | | | | | PDT | | + +---------+ + + | Pulse | 75 | 05/24/2019 1:03 PM | | | | | PDT | | + +---------+ + + | Temperature | - | - | | + +---------+ + + | Respiratory Rate | - | - | | + +---------+ + + | Oxygen Saturation | 97% | 05/24/2019 1:03 PM | | | | | PDT [...] encounter Progress Notes Ro Breen DNP - 05/24/2019 1:00 PM [facility] [address] [place] [address] [place] [address] Office: [phone] DATE OF VISIT: 05/24/2019 PATIENT NAME: Alondra Caballero : 1970; AGE: 49 y.o.; Sex:F PHONE NUMBER: ; ; PROVIDER: Ro Breen DNP PRIMARY CARE / REFERRING PHYSICIAN: No ref. provider found / No Physician on file / p REASON FOR EVALUATION / CHIEF COMPLAINT: Vascular Surgery Postoperative Visit for righ t [id number] The patient presents today for a Vascular Surgery Postoperative Visit. The patient is statu s post right [id number], which was performed on 04/14/2019 at the [facility] Operating Room. The patient is not having any pain. The patient denies fever , wound drainage, increasing redness, pus, increasing pain, increasing swelling. Physical ex amination revealed surgical incision which is healing well without signs of infection. She i s wearing stump protector. VITAL SIGNS: BP 115/65 | Pulse 75 | SpO2 97% PHYSICAL EXAM: Constitutional: Well nourished, no signs of distress Cardiovascular: Normal rate, regular rhythm. Pulmonary/Chest: No respiratory distress. Abdominal: Soft. No abdominal distension or tenderness. Musculoskeletal: Normal range of motion. S/p left BKA, prothesis in place Extremities: No edema, cyanosis or clubbing. Neurological: She is alert and oriented. VASCULAR: Palpable femoral pulses were present bilaterally. Incision site of right MAN [place] tor[place] is healing well without infection or drainage, a small opening at lateral corner, 0.5 x 0. 5 cm. Assessment & Plan: S/p right above knee amputation - The patient is doing well. All chelita removed today. No weight bearing at this time. May start stump instrument checker. Wound care discussed with patient. Mo nitor for signs of infection. Wear stump protector daily, fall precaution discussed. Keep go od glycemic control. Patient will be ready for prosthetic rehabilitation once incision site has completely healed. Return to vascular clinic in 1 month. Patient is currently being evaluated as a K1 ambulator. Patient is interested in prosthetic rehabilitation and use of prosthesis. Patient prostheti c goals are to ambulate short distances in home and assist with transfers in and out of the car. Patient has the ability or potential to use prosthesis for transfers/ambulation on leve l surfaces at fixed abhishek. Patient has the potential to become a K2 ambulator, which will be re-assessed at time for definitive prosthesis. Ro Breen DNP documented in t his encounter Plan of Treatment +--------+ + + + + | Date | Type | Specialty | Care Team | Description | +--------+ + + + + | 10/10/ | Office | Cardiology | Jerry Watts | | | 2019 | Visit | | MD Mario [address] | | | | | | [facility] | | | | | | [place] | | | | | | [address] | | | | | | | [...] | | | | | [place] [address] | | | | | | [phone] | | | | | | | | +--------+ + + + + | 11/25/ | Office | Nephrology | Kei Arthur MD | | | 2019 | Visit | | [address] [facility] | | | | | | [address] | | | | | | [address] | | | | | | | [...]
--- OUTSIDE RECORDS SUMMARY | ~2019-10-02 | XMS | Encounter Summary ---
Demographics + + + | Address | [address] | | | [place] [address] | + + + | Home Phone [...] Organization | [facility] | | | and [place] | + + + | Address | Unknown | + + + | Phone | Unavailable | + + + Support + + + + + | Name | Relationship | Address | Phone | + + + + + | Kyaw Woodson | ECON | [place], [place] | | + + + + + | Barbara Cabrera | ECON | Unknown | | + + + + + | Dimple Hathaway | ECON | Unknown | | + + + + + Care Team Providers + +------+ + | Care Deputy Sheriff K9 Handler Name | Role | Phone | + +------+ + | Daniel Land NP | PCP | | + +------+ + Encounter Details +--------+ + + + + | Date | Type | Department | Care Team | Description | +--------+ + + + + | 06/10/ | Orders Only | [facility] | Conversion | | | 2017 | | NEPHROLOGY [place] | Transaction, | | | | | [address] [facility] [address] | Provider Unknown | | | | | [address] [facility] [place] | | | | | | [address] | (Fax) | | | | | [phone] | | | +--------+ + + + [...] | | | | | [facility] | | | | | | [place] | | | | | | [address] | | | | | | | [...] [address] | | | | | | [place] [address] | | | | | | [phone] | | | | | | | | +--------+ + + + + | 11/25/ | Office | Nephrology | Kei Arthur MD | | | 2019 | Visit | | [address] [facility] | | | | | | [address] [place] | | | | | | [address] | | | | | | | [...]
--- OUTSIDE RECORDS SUMMARY | ~2019-10-02 | XMS | Encounter Summary ---
Demographics + + + | Address | [address] | | | [place] [address] | + + + | Home Phone [...] Organization | [facility] | | | and [place] | + + + | Address | Unknown | + + + | Phone | Unavailable | + + + Support + + + + + | Name | Relationship | Address | Phone | + + + + + | Kyaw Woodson | ECON | [place], [place] | | + + + + + | Barbara Cabrera | ECON | Unknown | | + + + + + | Dimple Hathaway | ECON | Unknown | | + + + + + Care Team Providers + +------+ + | Care Personnel Administrator Name | Role | Phone | + +------+ + | Daniel Land NP | PCP | | + +------+ + Encounter Details +--------+ + + + + | Date | Type | Department | Care Team | Description | +--------+ + + + + | 01/10/ | Orders Only | [facility] | Kei Arthur MD | | | 2016 | | [facility] | [address] [place] | | | | | [address] [place] | [address] [place], [place] | | | | | [address] [place], [place] | [id number] | | | | | [address] | | | | | | [phone] | | | +--------+ + + + [...] [address] | | | | | | [facility] | | | | | | [place] | | | | | | [address] | | | | | | | [...] [address] | | | | | | [place] [address] | | | | | | [phone] | | | | | | | | +--------+ + + + + | 11/25/ | Office | Nephrology | Kei Arthur MD | | | 2019 | Visit | | [facility] [address] [facility] | | | | | | [address] [place] | | | | | | [address] | | | | | | | [...] | | | LAB | | | [place] | | | | | + + [...]
--- OUTSIDE RECORDS SUMMARY | ~2019-10-02 | XMS | Encounter Summary ---
Demographics + + + | Address | [address] | | | [place] [address] | + + + | Home Phone [...] Organization | [facility] | | | and [place] | + + + | Address | Unknown | + + + | Phone | Unavailable | + + + Support + + + + + | Name | Relationship | Address | Phone | + + + + + | Kyaw Woodson | ECON | [place], [place] | | + + + + + | Barbara Cabrera | ECON | Unknown | | + + + + + | Dimple Hathaway | ECON | Unknown | | + + + + + Care Team Providers + +------+ + | Care Recruitment Consultant Name | Role | Phone | + +------+ + | Daniel Land NP | PCP | | + +------+ + Encounter Details +--------+ + + + + | Date | Type | Department | Care Team | Description | +--------+ + + + + | 05/28/ | Orders Only | [facility] | Kei Arthur MD | | | 2016 | | NEPRHOLOGY [place] | [address] | | | | | [address] | [address] [place], [place] | | | | | [address] [place], [place] | [address] | | | | | [address] | | | | | | [phone] | | | +--------+ + + + [...] [address] | | | | | | [facility] | | | | | | [place] | | | | | | [address] | | | | | | | [...] [address] | | | | | | [place] [address] | | | | | | [phone] | | | | | | | | +--------+ + + + + | 11/25/ | Office | Nephrology | Kei Arthur MD | | | 2019 | Visit | | [address] | | | | | | [address] [facility] [place] | | | | | | [address] | | | | | | | [...] | | | LAB | | | [place] | | | | | + + [...]
--- OUTSIDE RECORDS SUMMARY | ~2019-10-02 | XMS | Encounter Summary ---
Demographics + + + | Address | [address] | | | [place] [address] | + + + | Home Phone [...] | [facility] | | | and [place] [...] | + + + + + | Dipmle Hathaway | ECON | Unknown | | + + + + + Care Team Providers + +------+ + | Care Piping Engineer Name | Role | Phone | + +------+ + | No, Physician | PCP | Unavailable | + +------+ + Encounter Details +--------+ + + + + | Date | Type | Department | Care Team | Description | +--------+ + + + + | 11/17/ | Orders Only | [facility] | Kei Arthur MD | | | 2018 | | NEPHROLOGY [place] | [address] [place] | | | | | [address] [place] | [address] [place], [place] | | | | | [address] [facility], [place] | [address] | | | | | [address] | | | | | | [phone] | | | +--------+ + + + [...] [address] | | | | | | [address] | | | | | | | [...] | | | | | [place] [address] | | | | | | [phone] | | | | | | | | +--------+ + + + + | 11/25/ | Office | Nephrology | Kei Arthur MD | | | 2019 | Visit | | [address] [facility] | | | | | | [address] [place] | | | | | | [address] | | | | | | | | +--------+ + + + + documented as of this encounter Procedures + +--------+ + + + | Procedure Name | Priori | Date/Time | Associated Diagnosis | Comments | | | ty | | | | + +--------+ + + + | EXTERNAL LAB: ZULE[facility]A | Routin | 11/17/2017 | | Results for this | | | e | 7:15 AM | | procedure are in the | | | | PST | | results section. | + +--------+ + + + | URINALYSIS WITH | Routin | 11/17/2017 | | Results for this | | MICROSCOPIC IF | e | 7:15 AM | | procedure are in the | | INDICATED | | PST | | results section. | + +--------+ + + + | CREATININE, URINE, | Routin | 11/17/2017 | | Results for this | | 24HR | e | 7:15 AM | | procedure are in the | | | | PST | | results section. | + +--------+ + + + | PROTEIN/CREATININE | Routin | 11/17/2017 | | Results for this | | RATIO, URINE | e | 7:15 AM | | procedure are in the | | | | PST | | results section. | + +--------+ + + + | URIC ACID | Routin | 11/17/2017 | | Results for this | | | e | 7:15 AM | | procedure are in the | | | | PST | | results section. | + +--------+ + + + | PARATHYROID HORMONE, | Routin | 11/17/2017 | | Results for this | | INTACT | e | 7:15 AM | | procedure are in the | | | | PST | | results section. | + +--------+ + + + | MAGNESIUM | Routin | 11/17/2017 | | Results for this | | | e | 7:15 AM | | procedure are in the | | | | PST | | results section. | + +--------+ + + + | FERRITIN | Routin | 11/17/2017 | | Results for this | | | e | 7:15 AM | | procedure are in the | | | | PST | | results section. | + +--------+ + + + | RENAL FUNCTION PANEL | Routin | 11/17/2017 | | Results for this | | | e | 7:15 AM | | procedure are in the | | | | PST | | results section. | + +--------+ + + + documented in this encounter Results Creatinine, Urine, 24Hr (11/17/2017 7:15 AM PST) + + + + + + | Component | Value | Ref Range | Performed | Pathologist | | | | | At | Signature | + + + + + + | CREATININE | 32 (A) | 75 - 115 mL/min | EXTERNAL | | | CLEARANCE | | | LAB | | + + + + + + | Creatinine | 3.11 (A) | 0.5 - 1.5 | EXTERNAL | | | | | | LAB | | + + + + + + | Creatinine, | 43 | | EXTERNAL | | | Urine, | | | LAB | | | Random | | | | | + + + + + + | Creatinine, | | | EXTERNAL | | | Urine, | | | LAB | | | Random | | | | | + + [...] + +---------+ + + Protein/Creatinine Ratio, Urine (11/17/2017 7:15 AM PST) + + + + + + | Component | Value | Ref Range | Performed | Pathologist | | | | | At | Signature | + + + + + + | Protein/Cre | 465.1 (A) | 0 - 150 | EXTERNAL [...] + + Urinalysis with Microscopic if Indicated (11/17/2017 7:15 AM PST) + + + + + [...] At | + + + | WBC's: 10 Bacteria: 4+ | EXTERNAL LAB | + + + + +---------+ + + | Performing | Address | City/State/Zipcode | Phone Number | | Organization | | | | + +---------+ + + | EXTERNAL LAB | | | | + +---------+ + + External Lab: CBC (11/17/2017 7:15 AM PST) + + + + + + | Component | Value | Ref Range | Performed | Pathologist | | | | | At | Signature | + + + + + + | WBC | 9.6 | 4.5 - 11.0 10 | EXTERNAL | | | | | | LAB | | + + + + + + | RED CELL | 3.51 (A) | 3.8 - 5.1 10 | EXTERNAL | | | COUNT | | | LAB | | + + + + + + | Hgb | 10.7 (A) | 12 - 16 g/dL | EXTERNAL | | | | | | LAB | | + + + + + + | Hematocrit, | 33.2 (A) | 35 - 45 % | EXTERNAL | | | POC | | | LAB | | + + + + + + | MCV | 94.7 | 81 - 99 fL | EXTERNAL [...] + + + + | Platelet | 259 | 140 - 440 K/ L | EXTERNAL | | | Count | | | LAB | | | Plasma | | | | | + + + + + + | RDW-CV | 15.7 (A) | 10.5 - 15.0 % | [...] | + +---------+ + + Uric Acid (11/17/2017 7:15 AM PST) + +---------+ + [...] + +---------+ + + Parathyroid Hormone, Intact (11/17/2017 7:15 AM PST) + + + + + + | Component | Value | Ref Range | Performed | Pathologist | | | | | At | Signature | + + + + + + | PTH INTACT | 137.8 (A) | 15 - 65 pg/mL | [...] | | + +---------+ + + Magnesium (11/17/2017 7:15 AM PST) + +-------+ + + + [...] | | + +---------+ + + Ferritin (11/17/2017 7:15 AM PST) + + + + + + | Component | Value | Ref Range | Performed | Pathologist | | | | | At | Signature | + + + + + + | Ferritin, | 716.1 (A) | 13 - 150 ng/mL | [...] + +---------+ + + Renal Function Panel (11/17/2017 7:15 AM PST) + + + + + + | Component | Value | Ref Range | Performed | Pathologist | | | | | At | Signature | + + + + + + | Glucose, | 123 (A) | 70 - 100 mg/dL | EXTERNAL | | | Fasting | | | LAB | | + + + + + + | BUN | 54 (A) | 6 - 23 mg/dL | EXTERNAL | | | | | | LAB | | + + + + + + | Creatinine | 3.11 (A) | 0.6 - 1.35 | EXTERNAL [...] | | | LAB | | | SYRIAN | | | | | + + + + + + | Phosphorus, | 4.5 | 2.5 - 5.0 | EXTERNAL | | | Inorganic | | | LAB | | + + + + + + | BUN/Creatin | 17.4 | 6.0 - 28.6 | EXTERNAL | | | ine Ratio | | | LAB | | + + + + + + | Calcium | 10 | 8.4 - 10.2 | EXTERNAL | [...]
--- OUTSIDE RECORDS SUMMARY | ~2019-10-02 | XMS | Encounter Summary ---
Demographics + + + | Address | [address] | | | [place] [address] | + + + | Home Phone [...] | Author | [facility] | | | and [place] | + + + | Organization | [facility] | | | and [place] | + + + | Address | Unknown | + + + | Phone | Unavailable | + + + Support + + + + + | Name | Relationship | Address | Phone | + + + + + | Kyaw Woodson | ECON | [place], [place] | | + + + + + | Barbara Cabrera | ECON | Unknown | | + + + + + | Dimple Hathaway | ECON | Unknown | | + + + + + Care Team Providers + +------+ + | Care Tooling Inspector Name | Role | Phone | + [...] Provider Unknown | | | | | [place], [place] | [phone] | | | | | [address] | | | | | | [phone] | | | +--------+ + + + [...] [address] | | | | | | [facility] | | | | | | [place] | | | | | | [phone] | | | | | | | [...] | | | | | [place] [address] | | | | | | [phone] | | | | | | | | +--------+ + + + + | 11/25/ | Office | Nephrology | Kei Arthur MD | | | 2019 | Visit | | [address] [facility] | | | | | | [address] [place] | | | | | | [id number] | | | | | | | | +--------+ + + + + documented as of this encounter Visit Diagnoses Not on filedocumented in this encounter"
--- OUTSIDE RECORDS SUMMARY | ~2019-10-02 | XMS | Encounter Summary ---
Demographics + + + | Address | [address] | | | [place] [address] | + + + | Home Phone [...] | [facility] | | | and [place] | + + + | Address | Unknown | + + + | Phone | Unavailable | + + + Support + + + + + | Name | Relationship | Address | Phone | + + + + + | Kyaw Woodson | ECON | [place], [place] | | + + + + + | Barbara Cabrera | ECON | Unknown | | + + + + + | Dimple Hathaway | ECON | Unknown | | + + + + + Care Team Providers + +------+ + | Care Kitchen Worker Name | Role | Phone | [...] + + | 08/29/ | Telephone | [facility] | Jerry Yuen, | Establish Care | | 2019 | | [facility] | MD Bucky [place] | (Sooner appointment) | | | | [facility] [address] | | | | | [place] [address] | [place] [address] | | | | | [place], [place] | [phone] | | | | | [address] | | | | | | [phone] | | | +--------+ + + + [...] [place] | | | | | | [address] | | | | | | | [...] | | | | | [place] [address] | | | | | | [phone] | | | | | | | | +--------+ + + + + | 11/25/ | Office | Nephrology | Kei Arthur MD | | | 2020 | Visit | | [address] [facility] | | | | | | [address] [place] | | | | | | [address] | | | | | | | | +--------+ + + + + documented as of this encounter Visit Diagnoses Not on filedocumented in this encounter"
--- OUTSIDE RECORDS SUMMARY | ~2019-10-02 | XMS | Encounter Summary ---
Demographics + + + | Address | [address] | | | [place] [address] | + + + | Home Phone | | + + + | Preferred Language | Unknown | + + + | Marital Status | Single | + + + | Yarsanism Affiliation | UNK | + + + [...] Team Providers + +------+ + | Care Fuel Efficient Automobile Designer Name | Role | Phone | [...] | | | | | | | [place], [place] | | | | | | | [address] | | | | | | | Phone: | | | | | | | [phone] | | | | | | | Fax: | | | | | | | [phone] | +--------+--------+ + + + + Encounter Details +--------+---------+ + + + | Date | Type | Department | Care Team | Description | +--------+---------+ + + + | 11/09/ | Office | [facility] | Jaelyn Watters, | Type 2 macular | | 2019 | Visit | [facility] | [address] | telangiectasis of | | | | [address]ushila [address] | [address] | both eyes; Choroidal | | | | [address] | [place], [place] | neovascularization, | | | | Mailcode: CEI | [address] | both eyes; Retinal | | | | [place] [address] | [phone] | edema of both eyes | | | | [phone] | | | +--------+---------+ + + + [...] Instructions Patient Instructions Jaelyn Watters MD - 11/09/2018 11:15 AM PSTCare instructions after eye injections: ? Do not rub or touch your eye ? An [id number] pain reliever (i.e. Tylenol) can be used [...] encounter Progress Notes Jaelyn Watters MD - 11/09/2018 11:15 AM PSTFormatting of this note might be different f rom the original. [facility] Progress Note 11/09/2018 48 y.o. 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 Chief Complaint: Follow-up visit HPI (Edited by physician):The patient reports slowly decreased vision in both eyes with no new flashes or floaters in either eye. Last A1C was unknown. ROS Negative for: Gastrointestinal Last edited by Surendra Russo on 11/09/2018 11:22 AM. 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 | | | | | edema of both eyes | | + +--------+ + + + | AVASTIN INJ - OS - | Routin | 11/09/2018 | Type 2 macular | Results for this | | LEFT EYE | e | 12:34 PM | telangiectasis of | procedure are in the | | | | PST | both eyes Retinal | results section. | | | | | edema of both eyes | | + +--------+ + + + | OCT, RETINA | Routin | 11/09/2018 | Type 2 macular | Results for this | | | e | 11:40 AM | telangiectasis of | procedure are in [...] AVASTIN INJECTION - OD - RIGHT EYE (11/09/2018 12:34 PM PST) + + + | Narrative | Performed At | + + + | | | | Pre-Procedureconfirmed correct patient, procedure, site and consent., | | | Procedures, alternatives and risks discussed with patient. Questions | | | answered. AnesthesiaAnesthesia: topical, subconjunctival Anesthetic | | | Medication: Proparacaine 0.5%, Lidocaine 1% ProcedurePreparation: | | | betadine to ocular surface, eyelid speculum Needle: 30g Injection: | | | 1.25 mg bevacizumab 1.25 mg/0.[address] [facility]: [id number] Lot: | | | [id number] Expiration Date: 11/09/2018 Route: intravitreal Site: | | | Right Eye Estimated blood loss: none Post OpPost procedure | | | assessment: visual acuity at least count fingers, optic nerve | | | perfusion inspected, eye rinsed, patient tolerated procedure well | | |Preparation: betadine to ocular surface, eyelid speculum | | | | | |Needle: 30g | | | | | | | | |Injection: 1.25 mg bevacizumab 1.25 mg/0.05 mL | | | [facility]: [id number] | | | Lot: [id number] | | | Expiration Date: 11/09/2018 | | | Route: intravitreal | | | Site: Right Eye | | | | | |Estimated blood loss: none | | | | | | | | |Post Op | | |Post procedure assessment: visual acuity at least count fingers, optic | | |nerve perfusion inspected, eye rinsed, patient tolerated procedure well | | + + + AVASTIN INJECTION - OS - LEFT EYE (11/09/2018 12:34 PM PST) + + + | Narrative | Performed At | + + + | | | | Pre-ProcedureProcedures, alternatives and risks discussed with | | | patient. Questions answered., confirmed correct patient, procedure, | | | site and consent. AnesthesiaAnesthesia: topical, subconjunctival | | | Anesthetic Medication: Proparacaine 0.5%, Lidocaine 1% | | | ProcedurePreparation: betadine to ocular surface, eyelid speculum | | | Needle: 30g Injection: 1.25 mg bevacizumab 1.25 mg/0.05 mL [facility]: | | | [id number] Lot: [id number] Expiration Date: 11/09/2018 Route: | | | intravitreal Site: Left Eye Estimated blood loss: none Post OpPost | | | procedure assessment: visual acuity at least count fingers, optic | | | nerve perfusion inspected, eye rinsed, patient tolerated procedure | | | well | | | | | |Needle: 30g | | | | | | | | |Injection: 1.25 mg bevacizumab 1.25 mg/0.05 mL | | | [facility]: [id number] | | | Lot: [id number] | | | Expiration Date: 11/09/2018 | | | Route: intravitreal | | | Site: Left Eye | | | | | |Estimated blood loss: none | | | | | | | | |Post Op | | |Post procedure assessment: visual acuity at least count fingers, optic | | |nerve perfusion inspected, eye rinsed, patient tolerated procedure well | | + + + OCT, RETINA (11/09/2018 11:40 AM PST) + + + | Narrative | Performed At | + + + | Account Director | MEENAKSHI IRIZARRY | | DocumentationRight EyeQuality: [...] | + + + + + | [facility] | [address] | [place] [address] | | | MARTIN | Elly. | [...] + | bevacizumab (AVASTIN) | Given | 11/09/19 | 1.25 mg | | Left Eye | | intravitreal injection 1.25 mg | | 19 12:34 | | | | | 1.25 mg, ONCE PRN (IPROC), 1 | | PM PST | | | | | dose, Starting [facility] 11/09/18 at | | | | | | | 1234, Until Olena 11/09/18 at 1234 | | | | | | + +--------+ +---------+------+ + +---+---+ | | | +---+---+ + +-------+ +---------+---+--------+ | bevacizumab (AVASTIN) | Given | 11/09/19 | 1.25 mg | | Right | | intravitreal injection 1.25 mg | | 19 12:34 | | | Eye | | 1.25 mg, ONCE PRN (IPROC), 1 | | PM PST | | | | | dose, Starting [facility] 11/09/18 at | | | | | | | 1234, Until Olena 11/09/18 at 1234 | | | | | | + +-------+ +---------+---+--------+ +---+---+ | | | +---+---+ documented in this encounter"
--- OUTSIDE RECORDS SUMMARY | ~2019-10-02 | XMS | Encounter Summary ---
Demographics + + + | Address | [address] | | | [place] [address] | + + + | Home Phone | | + + + | Preferred Language | Unknown | + + + | Marital Status | Single | + + + | Latter-Day Affiliation | UNK | + + + | Race | White | + + + | Ethnic Group | Not or | + + + Author + + + | Author | [facility] | + + + | Organization | [facility] | + + + | Address | Unknown | + + + | Phone | Unavailable | + + + Support + + +---------+ + | Name | Relationship | Address | Phone | + + +---------+ + | Valentine Qiu | ECON | Unknown | | + + +---------+ + Care Team Providers + +------+ + | Care Oracle Architect Name | Role | Phone | [...] | Scheduling | | 2019 | | [facility] | [address] | | | | | [address] | Carrie [address] | | | | | [place] | [place], [place] | | | | | Mailcode: [place]ELI | [address] | | | | | [place] [address] | [phone] | | | | | [phone] | | | +--------+ + + + [...]
--- OUTSIDE RECORDS SUMMARY | ~2019-10-02 | XMS | Encounter Summary ---
Demographics + + + | Address | [address] | | | [place] [address] | + + + | Home Phone | | + + + | Preferred Language | Unknown | + + + | Marital Status | Single | + + + | Lutheran Affiliation | 1041 | + + + | Race | Unknown | + + + | Ethnic Group | Unknown | + + + Author + + + | Author | [facility] | | | and [place] | + + + | Organization | [facility] | | | and [place] | + + + | Address | Unknown | + + + | Phone | Unavailable | + + + Support + + + + + | Name | Relationship | Address | Phone | + + + + + | Kyaw Woodson | ECON | [place], [place] | | + + + + + | Barbara Cabrera | ECON | Unknown | | + + + + + | Dimple Hathaway | ECON | Unknown | | + + + + + Care Team Providers + +------+ + | Care Senior Communications Specialist Name | Role | Phone | [...] Renato Salas | | | | | [place] [address] | | | | | [address] | [place], [place] | | | | | [place], [place] | [phone] | | | | | [address] | | | | | | [phone] | | | +--------+ + + + [...] | | | | | [facility] | | | | | | [place] | | | | | | [address] | | | | | | | [...] | | | | | [place] [address] | | | | | | [phone] | | | | | | | | +--------+ + + + + | 11/25/ | Office | Nephrology | Kei Arthur MD | | | 2020 | Visit | | [address] [facility] | | | | | | [address] [place] | | | | | | [address] | | | | | | | | +--------+ + + + + documented as of this encounter Visit Diagnoses Not on filedocumented in this encounter"
--- OUTSIDE RECORDS SUMMARY | ~2019-10-02 | XMS | Encounter Summary ---
Demographics + + + | Address | [address] | | | [place] [address] | + + + | Home Phone [...] | [facility] | | | and [place] | + + + | Address | Unknown | + + + | Phone | Unavailable | + + + Support + + + + + | Name | Relationship | Address | Phone | + + + + + | Kyaw Woodson | ECON | [place], [place] | | + + + + + | Barbara Cabrera | ECON | Unknown | | + + + + + | Dimple Hathaway | ECON | Unknown | | + + + + + Care Team Providers + +------+ + | Care Web Production Artist Name | Role | Phone | + +------+ + | Daniel Land NP | PCP | | + +------+ + Encounter Details +--------+ + + + + | Date | Type | Department | Care Team | Description | +--------+ + + + + | 10/18/ | Orders Only | [facility] | Conversion | | | 2017 | | NEPHROLOGY [place] | Transaction, | | | | | [address] [facility] [address] | Provider Unknown | | | | | [address] [place] | | | | | | [address] | (Fax) | | | | | [phone] | | | +--------+ + + + [...] | | | | | [facility] | | | | | | [place] | | | | | | [address] | | | | | | | [...] [address] | | | | | | [place] [address] | | | | | | [phone] | | | | | | | | +--------+ + + + + | 11/25/ | Office | Nephrology | Kei Arthur MD | | | 2019 | Visit | | [address] [facility] | | | | | | [address] [facility] | | | | | | [address] | | | | | | | | +--------+ + + + + documented as of this encounter Procedures + +--------+ + + + | Procedure Name | Priori | Date/Time | Associated Diagnosis | Comments | | | ty | | | | + +--------+ + + + | RENAL FUNCTION PANEL | Routin | 10/18/2016 | | Results for this | | | e | 8:40 AM | | procedure are in the | | | | PST | | results section. | + +--------+ + + + documented in this encounter Results Renal Function Panel (10/18/2016 8:40 AM PST) + + + + [...] + + + | BUN | 35 (A) | 6 - 23 mg/dL | EXTERNAL | | | | | | LAB | | + + + + + + | Creatinine | 2.23 (A) | 0.60 - 1.35 | EXTERNAL [...] + + + | Anion Gap | 22.2 (A) | 7 - 21 mmol/L | EXTERNAL | | | | | | LAB | | + + + + + + | eGFR if not | | | EXTERNAL | | | | | | LAB | | | SW[place]ISH | | | | | + + + + + + | Phosphorus, | 3.5 | 2.5 - 5.0 | EXTERNAL | | | Inorganic | | | LAB | | + + + + + + | BUN/Creatin | 15.7 | 6.0 - 28.6 | EXTERNAL | [...]
--- OUTSIDE RECORDS SUMMARY | ~2019-10-02 | XMS | Encounter Summary ---
Demographics + + + | Address | [address] | | | [place] [address] | + + + | Home Phone [...] Organization | [facility] | | | and [place] | + + + | Address | Unknown | + + + | Phone | Unavailable | + + + Support + + + + + | Name | Relationship | Address | Phone | + + + + + | Kyaw Woodson | ECON | [facility], [place] | | + + + + + | Barbara Cabrera | ECON | Unknown | | + + + + + | Dimple Hathaway | ECON | Unknown | | + + + + + Care Team Providers + +------+ + | Care Pilot Plant Supervisor Name | Role | Phone | + +------+ + PCP | Unavailable | + +------+ + Encounter Details +--------+ + + + + | Date | Type | Department | Care Team | Description | +--------+ + + + + | 10/18/ | Hospital | [facility] | Klaudia Zepeda, | Dyspnea; CHF | | 2011 - | Encounter | [facility] | MD Matt OLSEN | (congestive heart | | | | CARE FLOOR [phone] | [facility], | failure) ([facility]); | | [address] | | [address] | [place] [address] | Pneumonia; NSTEMI | | 2011 | | [place], [place] | [phone] | (non-ST elevated | | | | [address] | | myocardial | | | | [phone] | | infarction) ([facility]); | | | | | | Microcytic anemia; | | | | | | Hyperglycemia; Pain | | | | | | of left leg | +--------+ + + + + Social [...] documented as of this encounter Discharge Summaries Alcides Ramon MD - 10/23/2011 10:45 AM PSTFormatting of this note might be different fr om the original. Discharge Summaries by Alcides Ramon MD at 10/23/11 1045 Author: Alcides Raomn MD Service: (none) Author Type: Physician Filed: 11/21/111958 Date of Service: 10/23/111044 Status: Addendum [employer] Supervisor: Alcides Ramon MD (Physician) Related Notes: Original Note by Alcides Ramon MD (Physician) filed at 10/23/11 1437 [facility]: Hospitalist Discharge Summary Date of Admission: 10/18/2011 Date of Discharge: 10/23/11 Discharge Physician: ALCIDES RAMON MD Treatment Team: Consulting Physician: Viridiana Brambila MD Admitting Provider: Alcides Ramon MD Discharge Diagnoses: Active Problems: Left leg pain Essential hypertension, benign Morbid obesity Amputated below knee Congestive heart failure Type I (juvenile type) diabetes mellitus without mention of complication, not stated as un controlled Resolved Problems: * No resolved hospital problems. * Significant Diagnostic Studies: XR chest 1 view [[id number]] Collection: 10/20/11917 Order Status: Completed Resulted: 10/20/11919 Narrative: ADAM OLSENNEAN XR CHEST 1 VIEW 10/20/2011 6:18 AM History: 41 years. Female. Follow-up for acute congestive heart failure. Technique: AP portable upright technique was performed at 0547 hours. Findings: Prior moderate interstitial alveolar infiltrate noted on 10/18/11 as decreased, but is still present. No lung consolidation or pleural effusion visualized. The inspiratory effort is moderate. Borderline to mild cardiomegaly is noted. No central venous catheter visualized. Conclusions: 1. Improving, but mild residual interstitial pulmonary edema. 2. Borderline cardiomegaly. chest with contrast [[id number]] Order Status: Completed Resulted: 10/19/11 0729 Narrative: This is a non-reportable procedure without a radiologist report and is used for image storage only XR Chest PA and Lateral [[id number]] Collection: 10/18/11 1745 Order Status: Completed Resulted: 10/18/11 174 Narrative: HISTORY: Shortness of breath. SCANNING PROTOCOL: Two views of the chest. FINDINGS: No comparison. There are moderate diffuse bilateral interstitial infiltrates or edema. The heart is mildly enlarged. Small bilateral pleural effusions are seen on the lateral view. Thickening of the fissures is also noted on the lateral view. Overall findings could indicate congestive heart failure. IMPRESSION: 1. Findings suggest congestive heart failure with pulmonary edema and small bilateral pleural effusions. Urine culture [[id number]] Abnormal Collection: 10/18/11 0111 Order Status: Completed Resul emanuel: 10/23/11 0933 Specimen Type: Urine Specimen Source: Urine, Clean Catch SPECIMEN DE SCRIPTION Result: CLEAN CATCH URINE SPECIMEN DESCRIPTION Result: Testing performed at [facility];[address] [place] [address] CULTURE A Result: 50,000 TO 100 ,000 CFU/ML KRISTINA GLABRATA CULTURE Result: Testing performed at [facility], [address] [place] [address] REPORT STATUS Result: 10/23/2011 FINAL Sputum culture [[id number]] Abnormal Collection: 10/19/11 1131 Order Status: Completed Resulted: 0 10/21/11 1041 Specimen Type: Sputum Specimen Source: Sputum SPECIMEN DESCRIPTION SPUTUM SPECIMEN DESCRIPTION Result: Testing performed at [facility];[address] [place] [address] GRAM STAIN Result: GREATER THAN 10 WBCS/LPF GRAM STAIN Result: LESS THAN 10 SEC/LPF GRAM STAIN Result: NO ORGANISMS SEEN GRAM STAIN Result: Testing performed at [facility], [address] [place] [address] CULTURE A Result: 2+ KRISTINA ALBICANS CULTURE Result: 1+ NORMAL UPPER RESPIRATORY RADHA CULTURE Result: Testing performed at [facility], [address] [place] [address] REPORT STATUS Result: 10/21/2011 FINAL Patient Name: ADAM MARTIN Date of : 1970 Echocardiogram Performing Physician: Luis Manuel Santana MD INDICATIONS CHF; Hx of insulin DM. CONCLUSIONS 1. Sinus rhythm. 2. Resting tachycardia (HR>100bpm). 3. This was a technically adequate study. 4. Suboptimal image quality - poor subcostal views. 5. Overall left ventricular systolic function is normal with, an EF between 60 - 65 %. 6. Left Ventricle ejection fraction by m-mode measures 53%. 7. The left ventricle cavity size is normal. 8. There is mild concentric left ventricular hypertrophy. 9. The right ventricle is normal in size. 10. The left atrium is mildly dilated. 11. The right atrial size is normal. 12. The aortic valve is trileaflet and appears structurally normal. 13. Mild mitral regurgitation is present. 14. Trace tricuspid regurgitation present. 15. There is a trivial pericardial effusion present. 16. The IVC was not well visualized. FINDINGS -------- ECG rhythm: Sinus rhythm. ECG rhythm: Resting tachycardia (HR>100bpm). Study: A 2-dimensional transthoracic echocardiogram with m-mode, spectral and color flow Do ppler was perfomed. Study: This was a technically adequate study. Study: This was a technically difficult study with suboptimal apical views. Study: Suboptimal image quality - poor subcostal views. Left Ventricle: Overall left ventricular systolic function is normal with, an EF between 60 - 65 %. Left Ventricle: Left Ventricle ejection fraction by m-mode measures 53%. Left Ventricle: The left ventricle cavity size is normal. Left Ventricle: There is mild concentric left ventricular hypertrophy. Left Ventricle: The diastolic filling pattern indicates impaired relaxation consistent with mild dysfunction (Grade I).POORLY SEEN ENDOCARDIUM IN APICAL WINDOW. Right Ventricle: The right ventricle is normal in size. Right Ventricle: The right ventricular systolic function is normal. Left Atrium: The left atrium is mildly dilated Left Atrium: , and the LA measures 4.4cm. Right Atrium: The right atrial size is normal Right Atrium: , and the RA measures 3.8cm. Aortic Valve: The aortic valve is trileaflet and appears structurally normal. Aortic Valve: There is no evidence of aortic regurgitation. Mitral Valve: The mitral valve is normal. Mitral Valve: Mild mitral regurgitation is present. Tricuspid Valve: The tricuspid valve appears structurally normal. Tricuspid Valve: Trace tricuspid regurgitation present. Pulmonic Valve: The pulmonic valve was not well visualized. Pulmonic Valve: Trace/mild (physiologic) pulmonic regurgitation. Pericardium: There is a trivial pericardial effusion present. Pericardium: No pleural effusion seen. IVC/Hepatic Veins: The IVC was not well visualized. Mass: No mass visualized Thrombus: No clot visualized Thrombus: No vegetation visualized. MEASUREMENTS LA Major: 4.52 cm LVOT Diam: 2.08 cm RA Major: 3.75 cm RVIDd: 2.89 cm LVEF MOD A2C: 58.72 % SV MOD A2C: 73.49 ml LVEF MOD A4C: 52.57 % SV MOD A4C: 88.08 ml EF Biplane: 56.95 % LVEDV MOD BP: 150.84 ml LVESV MOD BP: 64.93 ml LVEDV MOD A2C: 125.15 ml LVLd A2C: 8.52 cm LVEDV MOD A4C: 167.53 ml LVLd A4C: 9.29 cm LVESV MOD A2C: 51.65 ml LVLs A2C: 7.03 cm LVESV MOD A4C: 79.45 ml LVLs A4C: 7.33 cm CO Biplane: 9.68 l/min HR: 112.70 BPM R-R: 532.34 ms LAESV(A-L): 51.24 ml LAESV Index (A-L): 21.80 ml/m2 LAAs A2C: 15.57 cm2 LAESV A-L A2C: 46.26 ml LALs A2C: 4.45 cm LAAs A4C: 17.25 cm2 LAESV A-L A4C: 46.75 ml LALs A4C: 5.40 cm Ao Diam: 2.89 cm AV Cusp: 1.58 cm LA Diam: 4.36 cm LA/Ao: 1.50 %FS: 27.65 % EDV(Teich): 137.31 ml EF(Teich): 53.21 % ESV(Teich): 64.23 ml IVSd: 0.99 cm IVSs: 1.33 cm LVIDd: 5.33 cm LVIDs: 3.85 cm LVPWd: 1.07 cm LVPWs: 1.41 cm SV(Teich): 73.08 ml D-E [place]: 1.64 cm E-F [place]: 0.06 m/s EPSS: 1.30 cm HR: 108.2 BPM AV maxP.16 mmHg AV meanP.50 mmHg AV Vmax: 1.33 m/s AV Vmean: 1.03 m/s AV VTI: 22.09 cm ALMITA Vmax: 1.80 cm2 ALMITA (VTI): 1.85 cm2 LVCI Dopp: 1.97 l/minm2 LVCO Dopp: 4.64 l/min HR: 113.49 BPM LVOT maxP.01 mmHg LVOT meanP.25 mmHg LVSI Dopp: 17.42 ml/m2 LVSV Dopp: 40.94 ml LVOT Vmax: 0.71 m/s LVOT Vmean: 0.54 m/s LVOT VTI: 12.01 cm MCO: 325.32 ms MV A Navid: 1.40 m/s MV DecT: 192.12 ms MV E Navid: 1.18 m/s MV E/A Ratio: 0.84 MV PHT: 38.74 ms MVA By PHT: 5.67 cm2 MV A Dur: 73.93 ms Septal e': 0.05 m/s Septal E/e': 23.37 Lateral e': 0.08 m/s Lateral E/e': 14.22 P Vein A: 0.38 m/s P Vein A Dur: 73.93 ms P Vein D: 0.53 m/s P Vein S/D Ratio: 1.31 P Vein S: 0.69 m/s HR: 106.07 BPM PV maxP.47 mmHg PV meanP.52 mmHg PV Vmax: 1.27 m/s PV Vmean: 0.90 m/s PV VTI: 22.34 cm TR maxP.38 mmHg TR Vmax: 1.04 m/s TV A Navid: 0.79 m/s TV Dec [place]: 3.98 m/s2 TV Dec Time: 144.60 ms TV E Navid: 0.57 m/s TV E/A Ratio: 0.72 Compensation Director: KAHLIL Authenticated by: Luis Manuel Santana MD Report Date/Time: 10-19-2011 19:18:07 -------- Cardiac catheterization:10/21/11 Pre-operative Diagnosis: Flash pulmonary edema Post-operative Diagnosis: Same Procedure(s): Cardiac cath, pci of LCx Surgeon: VIRIDIANA BRAMBILA MD Anesthesia: General endotrachial anesthesia Estimated Blood Loss: Minimal Other: Not applicable Indications: See pre-operative history and physical. Findings: Severe 3 vessel CAD with total occlusion of LAD and RCA and 90% stenosis of mid LCx. EF=30-35% with anteroapical akinesis Complications: none Condition: Stable VIRIDIANA BRAMBILA MD 10/21/2011 BRIEF HISTORY OF PRESENTATION: Adam Martin is a 41 y.o. 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 Had left BKA 04/2011 for "cat scratch feve r" and underwent stump revision 4 days agobecause she said she tried to use prosthesis but h ad difficulty bc of bony spurs coming through skin. Was transferred from [facility] on day of admission. Troponin mildly elevated with pt c/o stabbing chest pain was admitted there 10/17/11 with increasing SOB and increasi ng oxygen demand. cxr and CT chest suggest bilateral fluffy likely CHF, but had fever 101.7 as well and WBC 12.1 HOSPITAL COURSE: Pt was seen by Cardiology with a change in doctors during this admission handling her case. She is s/p bare metal stent Past Medical History Diagnosis Date Diabetes mellitus type I Hyperlipidemia Hypertension Pneumonia CHF (congestive heart failure) Old myocardial infarction Seizures Meth induced seizure two years ago Past Surgical History Procedure Date Below knee leg amputation left Laparotomy oopherectomy left Allergies Allergen Reactions Demerol (Meperidine) Rash Latex Other (See Comments) Hives Sulfa Antibiotics Rash Vicodin (Hydrocodone-Acetaminophen) Rash Prescriptions prior to admission Medication Sig Dispense Refill gabapentin (NEURONTIN) 800 MG tablet Take 800 mg by mouth 3 (three) times daily. 1600 m g every morning & 800 mg every lunch and dinner hydrOXYzine (VISTARIL) 50 MG capsule Take 50 mg by mouth 4 (four) times daily. insulin aspart (NOVOLOG) 100 UNIT/ML injection Inject into the skin 4 (four) times emmy ly before meals and nightly. Sliding scale insulin detemir (LEVEMIR) 100 UNIT/ML injection Inject 64 Units into the skin every mor katherine. lisinopril (PRINIVIL,ZESTRIL) 5 MG tablet Take 5 mg by mouth daily. OXYCODONE HCL PO Take 20 mg by mouth every 6 (six) hours as needed. pravastatin (PRAVACHOL) 40 MG tablet Take 40 mg by mouth daily. prazosin (MINIPRESS) 2 MG capsule Take 6 mg by mouth nightly. Venlafaxine HCl (EFFEXOR PO) Take 300 mg by mouth daily. DISCHARGE EXAM Vital Signs: BP 92/50 | Pulse 108 | Temp(Src) 98.1 F (36.7 C) (Oral) | Resp 20 | Ht 1.778 m (5' 10") | Wt 120.3 kg (265 lb 3.4 oz) | BMI 38.05 kg/m2 | SpO2 97% | LMP 10/04/2011 | ? No Temp: [97.8 F (36.6 C)-99.9 F (37.7 C)] 98.1 F (36.7 C) (10/23 825) BP: (81-118)/(49-59) 92/50 mmHg (10/23 811) Heart Rate: [88-108] 108 (10/23 313) Resp: [16-20] 20 (10/23 811) SpO2: [89 %-97 %] 97 % (10/23 815) Weight: [120.3 kg (265 lb 3.4 oz)] 120.3 kg (265 lb 3.4 oz) (10/23 313) Physical Exam Constitutional: She is oriented to person, place, and time. Distressed: secondary to pain f rom leg obese Neck: Neck supple. No JVD present. Cardiovascular: Normal rate, regular rhythm and normal heart sounds. Pulmonary/Chest: Effort normal and bibasilar rales, on O2 by NC Abdominal: Soft. Mild tenderness to palpation on hypogastric area Musculoskeletal: L BKA, no signs of infection on stump site Neurological: She is alert and oriented to person, place, and time. Skin: Skin is warm, rashes on lower abdominal folds DATA CBC: Lab Results Component Value Date WBC 10.6 10/23/2011 RBC 3.68* 10/23/2011 HGB 9.9* 10/23/2011 HCT 29.8* 10/23/2011 MCV 81.1 10/23/2011 MCH 26.8* 10/23/2011 MCHC 33.1 10/23/2011 RDW 38.9 10/23/2011 PLT 263 10/23/2011 MPV 7.5 10/23/2011 DIFFTYPE AUTOMATED 10/23/2011 CMP: Lab Results Component Value Date NA 135 10/23/2011 K 3.8 10/23/2011 CL 98 10/23/2011 CO2 27 10/23/2011 ANIONGAP 14 10/23/2011 GLUF 175* 10/23/2011 BUN 16 10/23/2011 CREATININE 0.8 10/23/2011 BCR 21 10/23/2011 CA 8.4* 10/23/2011 PROT 6.7 10/23/2011 ALB 2.4* 10/23/2011 GLOB 4.3 10/23/2011 BILITOT 0.4 10/23/2011 ALP 109 10/23/2011 AST 45* 10/23/2011 ALT 26 10/23/2011 EGFR >60 10/23/2011 Magnesium: Lab Results Component Value Date MG 1.9 10/23/2011 Last 3 Troponin: Lab Results Component Value Date TROPONINI 0.35* 10/22/2011 TROPONINI 0.53* 10/20/2011 TROPONINI 0.59* 10/19/2011 CPK: Lab Results Component Value Date CKTOTAL 91 10/22/2011 CKMB: Lab Results Component Value Date CKMB 0.5 10/22/2011 U/A: Lab Results Component Value Date COLORU YELLOW 10/19/2011 COLORU YELLOW 10/18/2011 CLARITYU CLEAR 10/19/2011 CLARITYU CLEAR 10/18/2011 MEROPENEM 1.020 10/19/2011 LEUKOCYTESUR NEGATIVE 10/19/2011 NITRITE NEGATIVE 10/19/2011 NITRITE NEGATIVE 10/18/2011 UROBILINOGEN 0.2 10/19/2011 UROBILINOGEN 0.2 10/18/2011 PHUR 5.5 10/19/2011 PHUR 5.5 10/18/2011 BLOODU NEGATIVE 10/19/2011 KETONES NEGATIVE 10/19/2011 BILIRUBINUR NEGATIVE 10/19/2011 BILIRUBINUR NEGATIVE 10/18/2011 GLUCOSEU 250* 10/19/2011 HgBA1c: Lab Results Component Value Date HGBA1C 9.3* 10/20/2011 LABGLYC 220* 10/20/2011 TSH: Lab Results Component Value Date TSH 1.40 10/19/2011 PLAN Patient Active Hospital Problem List: NSTEMI with flash pulmonary edema - explained high risk of another cardiac event, s/p PCI, not a candidate for CABG at this point per cardiology. Need maximum medical management. Cont with Coreg, Lisinopril (need holding parameters which were explaine ddue to hx of low BP du ring this admission which seems to be related to narcotic usage), ASA, Plavix, statin. Expla ined at length with sister in room re cardiac diet, and possibility for cardiac rehab/ cardi ac transplant discussion with [facility] outpatient Hypomagnesemia - repleted PO today, will also give Rx for 3 more days, f/u with PCP/cardiol ogy Narcotic dependence - will be [facility] a [facility]. Left leg pain s/p BKA revision - will d/c with Rx for her post op dose of oxicodone 20 mg q 6 h. Rest of care deferred to PCP/ surgeon Type I (juvenile type) diabetes mellitus without mention of complication, not stated as unc ontrolled - appreciate DM educator input, resume home meds and f/u with PCP [facility] Condition: Fair Code Status: Full Code No discharge procedures on file. Follow up: No follow-up provider specified. Current Discharge Medication List CONTINUE these medications which have NOT CHANGED Details gabapentin (NEURONTIN) 800 MG tablet Take 800 mg by mouth 3 (three) times daily. 1600 mg ev jw morning & 800 mg every lunch and dinner hydrOXYzine (VISTARIL) 50 MG capsule Take 50 mg by mouth 4 (four) times daily. insulin aspart (NOVOLOG) 100 UNIT/ML injection Inject into the skin 4 (four) times daily b efore meals and nightly. Sliding scale insulin detemir (LEVEMIR) 100 UNIT/ML injection Inject 64 Units into the skin every morning . lisinopril (PRINIVIL,ZESTRIL) 5 MG tablet Take 5 mg by mouth daily. OXYCODONE HCL PO Take 20 mg by mouth every 6 (six) hours as needed. pravastatin (PRAVACHOL) 40 MG tablet Take 40 mg by mouth daily. prazosin (MINIPRESS) 2 MG capsule Take 6 mg by mouth nightly. Venlafaxine HCl (EFFEXOR PO) Take 300 mg by mouth daily. Pt instructed to take aspirin 325 mg daily OTC Discharge took 40 minutes, to include final examination, discussion of admission, and prepa ration of prescriptions, instructions for on-going care, follow-up and documentation of disc harge summary. ALCIDES RAMON MD 10/23/2011 documented in this encounter Progress Notes Conversion Transaction, Provider Unknown - 10/23/2011 3:58 PM PSTFormatting of this note m ight be different from the original. Progress Notes by Sarah Patel RN at 10/23/11 1558 Author: Sarah Patel RN Service: (none) Author Type: Registered Nurse Filed: 10/23/11 1559 Date of Service: 10/23/11 1558 Status: Signed [employer] Supervisor: Sarah Patel RN (Registered Nurse) 1500 Patient discharge per MD's doctors, instructions regarding follows up and prescription given to patient and sister, patient and sister verbalized understanding. Patient discharg e in stable condition, all belonging with patient. No further needs at this time. onver jessica Transaction, Provider Unknown - 10/23/2011 12:21 PM PST Progress Notes by Joey Smith RRT at 10/23/11 1221 Author: Joey Smith RRT Service: (none) Author Type: Registered Respiratory Therapist Filed: 10/23/11 1227 Date of Service: 10/23/111220 Status: Signed [employer] Supervisor: Joey Smith RRT (Registered Respiratory Therapist) [facility] Department of Respiratory [facility] Oxygen Evaluation (Evaluation is valid for 48 hours once completed) Date: 10/23/2011 RT: JOEY SMITH Time: 12:21 PM Phone: Physician ordering evaluation: Part One Part Two At rest and breathing room air is the patient s SpO2 88% or lower? With exercise and b reathing room air is the patient s SpO2 88% or lower? No IF NO Y N IF NO The patient does not qualify for home oxygen under Medicare/ Medicaid guidelines. Lowest observed SpO2: 93_95% Lowest observed SpO2: See note IF YES IF YES Amount of Oxygen needed to keep SpO2 88% or higher at rest: Amount of Oxygen needed to keep SpO2 88% or higher with exercise: > SpO2: LPM: If >5LPM, SpO2 on 4LPM: SpO2: LPM: If >5LPM, SpO2 on 4LPM: Notes: Pt unable to ambulated due to an amputation & unable to use prosthesis @ this time. Uses a wheel chair. HOME OXYGEN PROVIDER PREFERENCE PHONE FAX *NOTE* Provider must include liter flow, route of oxygen administration, frequency of use w ith duration of need in months on the prescription AND document patient s diagnosis. OXYGEN PRN IS NOT A VALID ORDER Physician Signature: Date: 10/23/2011 Time: 12:21 PM onver jessica Maldonado, Provider Unknown - 10/23/2011 4:20 AM PST Progress Notes by Randa Lopez RN at 10/23/11419 Author: Randa Lopez RN Service: (none) Author Type: Registered Nurse Filed: 10/23/11 0425 Date of Service: 10/23/11419 Status: Signed [employer] Supervisor: Randa Lopez RN (Registered Nurse) Pt asked for narcotics many times during shift. Medicated with 20mg oxycodone, then 1 mg o f dilaudid within a couple of hours as the pt knew when it was due. Pt became lethargic and hypotensive in the night with a systolic of 81, and was slightly symptomatic. Informed pt that this was probably due to the narcotics she took, told her she would need to hold off on them for a while. Rechecked in a few minutes and she was up to 88 systolic. Last check wa s 118 systolic and pt complained of pain again. Medicated with the oxycodone, but will not give any IV dilaudid. RR and HR stable, pulse ox stable, pt currently sleeping, continue t o monitor. RANDA LOPEZ RN onver jessica Transaction, Provider Unknown - 10/22/2011 6:28 PM PST Progress Notes by Vane Bolaños RN at 10/22/111827 Author: Vane Bolaños RN Service: (none) Author Type: Registered Nurse Filed: 10/22/111828 Date of Service: 10/22/111827 Status: Signed [employer] Supervisor: Vane Bolaños RN (Registered Nurse) Resting quietly in bed. Has been crying today due to stress from results of heart cath yest genoveva. Dr. Tomas was in to speak with her. Planning discharge tomorrow.Vane Bolaños 2011 Alcides Poon MD - 10/22/2011 4:32 PM PST Progress Notes by Alcides Ramon MD at 10/22/11 163 Author: Alcides Ramon MD Service: (none) Author Type: Physician Filed: 10/22/11 1640 Date of Service: 10/22/111631 Status: Addendum [employer] Supervisor: Alcides Ramon MD (Physician) Related Notes: Original Note by Alcides Ramon MD (Physician) filed at 10/22/11 1638 [facility]: Hospitalist Progress Note Hospital Day: LOS: 4 days Post-Op Day: 1 Day Post-Op SUBJECTIVE Events Overnight: Pt is a bit lethargic but easily arousable and talks appropria tely, conversant. Afebrile overnight. S/p cardiac cath with stent x1, no bleeding from groin . Denies chest pain. Reports same baseline SOB Scheduled Medications aspirin 325 mg Oral Daily with breakfast bivalirudin bivalirudin bivulirudin (ANGIOMAX) infusion 1.75 mg/kg/hr Intravenous Once - Now bivalirudin 0.75 mg/kg Intravenous Once carvedilol 3.125 mg Oral BID WC clopidogrel clopidogrel 75 mg Oral Daily fentaNYL fluconazole 150 mg Oral Daily furosemide 40 mg Intravenous BIDD gabapentin 800 mg Oral TID heparin (porcine) 5,000 Units Subcutaneous Q8H hydrOXYzine 50 mg Oral 4x Daily insulin aspart 0-14 Units Subcutaneous TID AC And insulin aspart 0-7 Units Subcutaneous Nightly insulin aspart 5 Units Subcutaneous TID AC insulin detemir 100 Units Subcutaneous QAM ipratropium-albuterol 3 mL Nebulization Q6H levofloxacin 750 mg Intravenous Q24H lidocaine buffered 1% 0.5 mL Subcutaneous Once lisinopril 5 mg Oral Daily midazolam nitroGLYCERIN 200 mcg Intravenous Once nitroGLYCERIN nystatin Topical BID omeprazole 20 mg Oral QAM AC Or pantoprazole 40 mg Intravenous QAM AC pravastatin 40 mg Oral Nightly prazosin 6 mg Oral Nightly sodium chloride 3 mL Intravenous Q8H venlafaxine 300 mg Oral Daily DISCONTD: fluconazole 150 mg Oral Once DISCONTD: insulin detemir 90 Units Subcutaneous QAM DISCONTD: metoprolol 75 mg Oral BID Continuous Infusions PRN Medications acetaminophen, acetaminophen, dextrose, dextrose, dextrose, dextrose, glucagon, glucose, gl ucose, HYDROmorphone, insulin aspart, iopamidol, lorazepam, lorazepam, magnesium sulfate, ma gnesium sulfate, magnesium sulfate, ondansetron, ondansetron, oxycodone, polyethylene glycol , tramadol, zolpidem OBJECTIVE Vital Signs: BP 98/58 | Pulse 93 | Temp(Src) 98.2 F (36.8 C) (Oral) | Resp 18 | Ht 1.778 m (5' 10") | Wt 117.6 kg (259 lb 4.2 oz) | BMI 37.20 kg/m2 | SpO2 92% | LMP 10/04/2011 | ? No Temp: [97.8 F (36.6 C)-98.4 F (36.9 C)] 98.2 F (36.8 C) (10/22 1548) BP: (80-109)/(47-69) 98/58 mmHg (10/22 1516) Heart Rate: [88-103] 93 (10/22 154) Resp: [12-21] 18 (10/22 154) SpO2: [92 %-98 %] 92 % (10/22 154) Weight: [117.6 kg (259 lb 4.2 oz)] 117.6 kg (259 lb 4.2 oz) (10/22 0358) Physical Exam Vitals reviewed. Constitutional: She is oriented to person, place, and time. Distressed: secondary to pain f rom leg obese Neck: Neck supple. No JVD present. Cardiovascular: Normal rate, regular rhythm and normal heart sounds. Pulmonary/Chest: Effort normal and bibasilar rales, on O2 by NC Abdominal: Soft. Mild tenderness to palpation on hypogastric area Musculoskeletal: L BKA, no signs of infection on stump site Neurological: She is alert and oriented to person, place, and time. Skin: Skin is warm, rashes on lower abdominal folds DATA CBC: Lab Results Component Value Date WBC 9.9 10/22/2011 RBC 3.78* 10/22/2011 HGB 10.1* 10/22/2011 HCT 30.0* 10/22/2011 MCV 79.3* 10/22/2011 MCH 26.7* 10/22/2011 MCHC 33.7 10/22/2011 RDW 39.4 10/22/2011 PLT 254 10/22/2011 MPV 7.4 10/22/2011 DIFFTYPE AUTOMATED 10/22/2011 CMP: Lab Results Component Value Date NA 136 10/22/2011 K 3.7 10/22/2011 CL 98 10/22/2011 CO2 27 10/22/2011 ANIONGAP 14 10/22/2011 GLUF 216* 10/22/2011 BUN 13 10/22/2011 CREATININE 0.9 10/22/2011 BCR 14 10/22/2011 CA 8.4* 10/22/2011 PROT 6.6 10/22/2011 ALB 2.4* 10/22/2011 GLOB 4.3 10/22/2011 BILITOT 0.4 10/22/2011 ALP 104 10/22/2011 AST 33 10/22/2011 ALT 24 10/22/2011 EGFR >60 10/22/2011 PROBLEM LIST Active Problems: Left leg pain Essential hypertension, benign Morbid obesity Amputated below knee Congestive heart failure Type I (juvenile type) diabetes mellitus without mention of complication, not stated as un controlled ASSESSMENT & PLAN 1. NSTEMI - s/p cardiac cath. Spoke with Dr. Brambila, recommended for pt to be on medical management. Not a candidate for CABG. Pt placed on plavix, metoprolol changed to coreg, bord lazaro BP so will hold off on adding KAITLIN i for now, cont statin and aspirin as well.Dr.Tabba garsia [facility] ordered repeat cardiac enzmes and says that from cardiac standpoint, pt is medically stable for discharge 2. DM - still poorly controlled, will increase her lantus dosing. Diabetic diet 3. Stump site pain - trying to hold off narcotics however patient pain uncontrolled without narcotics. Added tramadol as breakthrough. Wean off to lowest possible dose. On levaquin since admission for suspected early infection 4. Candidiasis - on sputum, abdominal folds, and urine. With comobrities and hypogastric p ain, will stat fluconazole treatment. Sister [place] wanted to be called. Called at [phone]. After a lengthy explanation, she had more questions so I asked her to come in for a face to face discussion which she agreed to. Will talk to her tomorrow. Code Status: Full Code ALCIDES RAMON MD 10/22/2011 onversion Transact ion, Provider Unknown - 10/22/2011 4:17 PM PSTFormatting of this note might be different fr om the original. Progress Notes by Supriya Dale at 10/22/11 1617 Author: Supriya Dale Service: (none) Author Type: [employer] Filed: 10/22/11 1622 Date of Service: 10/22/11 1617 Status: Signed [employer] Supervisor: Supriya Dale ([employer]) pts discharge put on hold until Tuesday & sister will transport...[facility] aware of [facility] angela in [place], [place] transport cancelled. onver jessica Transaction, Provider Unknown - 10/22/2011 4:01 PM PST Progress Notes by Supriya Dale at 10/22/11 1601 Author: Supriya Dale Service: (none) Author Type: [employer] Filed: 10/22/11 1603 Date of Service: 10/22/11 1601 Status: Signed [employer] Supervisor: Supriya Dale ([employer]) CM spoke with [facility] Chuck [phone] who stated he would be able to trans port pt back to [facility] in [facility] around 5-5:30... CM also spoke with Edna Jules at [facility] who stated they would accept pt back... No further d/c needs identified. Cleopatra Sánchez RD - 10/22/2011 2:37 PM PSTFormatting of this note might be different from the obdulio ginal. Progress Notes by Cleopatra Pinzon RD at 10/22/11 1437 Author: Cleopatra Pinzon RD Service: (none) Author Type: Registered Dietitian Filed: 10/22/11 1439 Date of Service: 10/22/11 1437 Status: Signed [employer] Supervisor: Cleopatra Pinzon RD ([employer]) BG remains in 200-300 range. Lantus insulin was increased to 100 units this am from 90 uni ts. Recommend increase to 120 units. Also getting 5 units Novolog insulin with meals. Rec ommend increase to 8 units with meals. Cleopatra Pinzon RD, CD, Inpatient [employer] 10/22/2011 2:39 PM onversion Transaction , Provider Unknown - 10/22/2011 6:06 AM PST Progress Notes by Estela Biswas RN at 10/22/11605 Author: Estela Biswas RN Service: (none) Author Type: Registered Nurse Filed: 10/22/11605 Date of Service: 10/22/11605 Status: Signed [employer] Supervisor: Estela Biswas RN (Registered Nurse) No acute changes from previous charting. VSS. Will continue to monitor. Estela Biswas RN onver jessica Transaction, Provider Unknown - 10/22/2011 3:05 AM PST Progress Notes by Estela Biswas RN at 10/22/11304 Author: Estela Biswas RN Service: (none) Author Type: Registered Nurse Filed: 10/22/11 0459 Date of Service: 10/22/11304 Status: Signed [employer] Supervisor: Estela Biswas RN (Registered Nurse) Pt ambulated to bedside commode. Groin site remains c/d/i and soft. Pt states area is "a li ttle sore." VSS. Estela Biswas RN onver jessica Transaction, Provider Unknown - 10/21/2011 10:15 PM PST Progress Notes by Estela Biswas RN at 10/21/112214 Author: Estela Biswas RN Service: (none) Author Type: Registered Nurse Filed: 10/22/11 0002 Date of Service: 10/21/112214 Status: Signed [employer] Supervisor: Estela Biswas RN (Registered Nurse) Pt does not want to get out of bed d/t the pain in her L amputated leg. Right groin site re alicia c/d/i and soft. Tibial pulse palpable. Pt has rolled in bed and bent leg to repositio n herself in bed, tolerated well. Will continue to monitor. Estela Biswas RN onver jessica Transaction, Provider Unknown - 10/21/2011 7:45 PM PST Progress Notes by Estela Biswas RN at 10/21/111944 Author: Estela Biswas RN Service: (none) Author Type: Registered Nurse Filed: 10/21/11 5327 Date of Service: 10/21/111944 Status: Signed [employer] Supervisor: Estela Biswas RN (Registered Nurse) Pt returned from PACU. Groin site soft, clean dry & intact. Pt denies any pain at this time . VSS. Will continue to monitor. Estela Biswas RN onver jessica Transaction, Provider Unknown - 10/21/2011 7:27 PM PST Progress Notes by Estela Romero RN at 10/21/111926 Author: Estela Romero RN Service: (none) Author Type: Registered Nurse Filed: 10/21/111927 Date of Service: 10/21/111926 Status: Signed [employer] Supervisor: Estela Romero RN (Registered Nurse) Patient was D/C'd from PACU at 1921 with a PACU acuity I . Patient was transferred back to room on 4RP onver jessica Transaction, Provider Unknown - 10/21/2011 7:18 PM PST Progress Notes by Estela Romero RN at 10/21/111917 Author: Estela Romero RN Service: (none) Author Type: Registered Nurse Filed: 10/21/111919 Date of Service: 10/21/111917 Status: Signed [employer] Supervisor: Estela Romero RN (Registered Nurse) Jacqueline Nunez RN and Estela Romero RN taking care of patient while in PACU onver jessica Transaction, Provider Unknown - 10/21/2011 5:00 PM PST Progress Notes by Haylee Curran RN at 10/21/111699 Author: Haylee Curran RN Service: (none) Author Type: Registered Nurse Filed: 10/21/112011 Date of Service: 10/21/111699 Status: Signed [employer] Supervisor: Haylee Curran RN (Registered Nurse) Pt to woodworking shop laborer for angiogram. Alcides Poon MD - 10/21/2011 4:49 PM PST Progress Notes by Alcides Ramon MD at 10/21/111648 Author: Alcides Ramon MD Service: (none) Author Type: Physician Filed: 10/21/111655 Date of Service: 10/21/111648 Status: Signed [employer] Supervisor: Alcides Ramon MD (Physician) [facility] Service: Hospitalist Progress Note Hospital Day: LOS: 3 days Post-Op Day: * No surgery found * SUBJECTIVE Events Overnight: Afebrile, denies chest pain, mostly complains of leg pain 05/29 curr ently. Last night did not receive her dose of roxicodone 20 mg as she was too sleepy. Nurse tells me she does intermittently call them for uncontrolled pain in between the doses of frank icodone. Blood sugar remains uncontrolled. BP fairly well controlled. Scheduled Medications aspirin 325 mg Oral Daily with breakfast fentaNYL furosemide 40 mg Intravenous BIDD gabapentin 800 mg Oral TID hydrOXYzine 50 mg Oral 4x Daily insulin aspart 0-14 Units Subcutaneous TID AC And insulin aspart 0-7 Units Subcutaneous Nightly insulin aspart 5 Units Subcutaneous TID AC insulin detemir 100 Units Subcutaneous QAM ipratropium-albuterol 3 mL Nebulization Q6H levofloxacin 750 mg Intravenous Q24H lidocaine lidocaine buffered 1% 0.5 mL Subcutaneous Once lisinopril 5 mg Oral Daily metoprolol 75 mg Oral BID nystatin Topical BID omeprazole 20 mg Oral QAM AC Or pantoprazole 40 mg Intravenous QAM AC pravastatin 40 mg Oral Nightly prazosin 6 mg Oral Nightly sodium bicarbonate sodium chloride 3 mL Intravenous Q8H venlafaxine 300 mg Oral Daily DISCONTD: insulin detemir 90 Units Subcutaneous QAM Continuous Infusions PRN Medications acetaminophen, acetaminophen, dextrose, dextrose, dextrose, dextrose, glucagon, glucose, gl ucose, insulin aspart, lorazepam, lorazepam, magnesium sulfate, magnesium sulfate, magnesium sulfate, ondansetron, ondansetron, oxycodone, polyethylene glycol, tramadol, zolpidem OBJECTIVE Vital Signs: BP 115/65 | Pulse 88 | Temp(Src) 98 F (36.7 C) (Oral) | Resp 19 | Ht 1.778 m (5' 10") | Wt 118.6 kg (261 lb 7.5 oz) | BMI 37.52 kg/m2 | SpO2 92% | LMP 10/04/2011 | ? No Temp: [97.1 F (36.2 C)-98.3 F (36.8 C)] 98 F (36.7 C) (10/21 1617) BP: (87-147)/(51-74) 115/65 mmHg (10/21 1617) Heart Rate: [82-100] 88 (10/21 1617) Resp: [18-20] 19 (10/21 1617) SpO2: [92 %-97 %] 92 % (10/21 1617) Weight: [118.6 kg (261 lb 7.5 oz)] 118.6 kg (261 lb 7.5 oz) (10/21 35) Physical Exam HENT: Head: Normocephalic. Vitals reviewed. Constitutional: She is oriented to person, place, and time. Distressed: secondary to pain f rom leg obese Neck: Neck supple. No JVD present. Cardiovascular: Normal rate, regular rhythm and normal heart sounds. Pulmonary/Chest: Effort normal and breath sounds normal. Abdominal: Soft. Musculoskeletal: L BKA, no signs of infection on stump site Neurological: She is alert and oriented to person, place, and time. Skin: Skin is warm and dry. DATA CBC: Lab Results Component Value Date WBC 10.3 10/21/2011 RBC 3.65* 10/21/2011 HGB 9.8* 10/21/2011 HCT 29.2* 10/21/2011 MCV 80.1 10/21/2011 MCH 26.7* 10/21/2011 MCHC 33.4 10/21/2011 RDW 38.9 10/21/2011 PLT 252 10/21/2011 MPV 7.2 10/21/2011 DIFFTYPE AUTOMATED 10/21/2011 CMP: Lab Results Component Value Date NA 137 10/21/2011 K 3.7 10/21/2011 CL 99 10/21/2011 CO2 29 10/21/2011 ANIONGAP 13 10/21/2011 GLUF 236* 10/21/2011 BUN 16 10/21/2011 CREATININE 0.7 10/21/2011 BCR 23 10/21/2011 CA 8.5 10/21/2011 PROT 6.3* 10/21/2011 ALB 2.4* 10/21/2011 GLOB 4.0 10/21/2011 BILITOT 0.4 10/21/2011 ALP 112* 10/21/2011 AST 33 10/21/2011 ALT 23 10/21/2011 EGFR >60 10/21/2011 PROBLEM LIST Active Problems: Left leg pain Essential hypertension, benign Morbid obesity Amputated below knee Congestive heart failure Type I (juvenile type) diabetes mellitus without mention of complication, not stated as un controlled ASSESSMENT & PLAN NSTEMI With flash pulmonary edema secondary to diastolic dysfunction,, high risk for CAD. P t to proceed with cardiac catheterization today with sedation. Leg stump pain - will add breakthrough tramadol to oxycodone 20 mg q 6h which was her post surgical dose. DM uncontrolled - Increased ;levemir from 18 to 20 u daily. Will cont tomonitor Hypomagnesemia - repleted, will recheck in AM Code Status: Full Code ALCIDES RAMON MD 10/21/2011 onversion Transact ion, Provider Unknown - 10/21/2011 4:15 PM PSTFormatting of this note might be different fr om the original. Progress Notes by Haylee Curran RN at 10/21/11 9587 Author: Haylee Curran RN Service: (none) Author Type: Registered Nurse Filed: 10/21/112010 Date of Service: 10/21/11 5494 Status: Signed [employer] Supervisor: Haylee Curran RN (Registered Nurse) Pt has been anxious throughout the day about getting additional pain medication and about b eing able to eat. Heart cath was cancelled, pt will go to cath with different doctor this ev ening. Pt is anxious and tearful, stating she has not eaten since 1999 yesterday and needs t o eat. Pt also states that she will leave if this procedure is not done tonight. Discussed w ith pt reason for admission, need for procedure, and what was involved with the procedure. 2 0 mg Roxicodone given per MAR, discussed with Dr. Ramon the possibility of additional medic ation for breakthrough pain. Pt also stated dissatisfaction that "no one had been able to wr ap the dressing so it would stay on" on her BKA site. Dressing reapplied with mesh wrap cove ring. Pt is now resting somewhat calmly in bed, seems to be at ease with dressing and curren t pain medication administration. Pt assured she will be updated with any new information. onver jessica Transaction, Provider Unknown - 10/21/2011 6:20 AM PST Progress Notes by Katie López RN at 10/21/11619 Author: Katie López RN Service: (none) Author Type: Registered Nurse Filed: 10/21/11629 Date of Service: 10/21/11619 Status: Signed [employer] Supervisor: Katie López RN (Registered Nurse) Pt is NPO since midnight, pt has been anxious all shift. Constantly rating pain in left BKA 10/10, even when fall asleep during conversation. Elevated left leg on pillow. Pt has been hypotensive during last half of shift with sbp 80-90, explained to pt that narcotics and dec rease bp, so pain meds have been held until SPB is 100 or above. Pt denies sob, dizziness or chest pain. Pt is currently sleeping. Vs stable will continue to monitor. BP 111/63 | Pulse 90 | Temp(Src) 97.1 F (36.2 C) (Axillary) | Resp 18 |SpO2 94% on 3L. onver jessica Transaction, Provider Unknown - 10/21/2011 2:56 AM PST Progress Notes by Katie López RN at 10/21/11255 Author: Katie López RN Service: (none) Author Type: Registered Nurse Filed: 10/21/11 0303 Date of Service: 10/21/11255 Status: Signed [employer] Supervisor: Katie López RN (Registered Nurse) Pt continues to ask for pain medication while falling asleep during conversation. Explain t hat since sbp was 80's that Admin is not safe. Admin 650 PO tylenol with 5mg of Ambien. Pt d enies symptoms of hypotension at this time. Will recheck bp hourly and told pt when sbp reac hes 100 pain meds will be admin. Will continue to monitor. BP 87/51 | Pulse 92 onver jessica Transaction, Provider Unknown - 10/20/2011 11:18 PM PST Progress Notes by Katie López RN at 10/20/11 2318 Author: Katie López RN Service: (none) Author Type: Registered Nurse Filed: 10/20/112319 Date of Service: 10/20/118 Status: Signed [employer] Supervisor: Katie López RN (Registered Nurse) Admin ativan 2 mg prior to moving pt. Pt did not tolerate due to pain, but O2 saturation di d not drop below 84%. Pt is currently at 90% with FiO2 at 100% and 23/14. Will continue to m onitor. onver jesisca Transaction, Provider Unknown - 10/20/2011 4:00 PM PST Progress Notes by Haylee Curran RN at 10/20/11 1600 Author: Haylee Curran RN Service: (none) Author Type: Registered Nurse Filed: 10/20/111951 Date of Service: 10/20/11 1600 Status: Signed [employer] Supervisor: Haylee Curran RN (Registered Nurse) Pt resting quietly in bed, states pain has improved greatly. Pt refused heart cath this am but states she is willing to go through with the procedure tomorrow now that she knows what is involved with the procedure. Pt has agreed to the plan to be pre-medicated with ativan pr e-procedure. Will continue to monitor pt throughout rest of shift. onver jessica Transaction, Provider Unknown - 10/20/2011 11:54 AM PST Progress Notes by Umesh Law at 10/20/11 1157 Author: Umesh Law Service: (none) Author Type: [employer]man Hel[employer] Filed: 10/20/11 1155 Date of Service: 10/20/11 1154 Status: Signed [employer] Supervisor: Umesh Law (Fireman Helper) Cosigner: Kelly Hernández RN at 10/20/11 1203 Patient returned from woodworking shop laborer. Patient very anxious and diaphoretic, medicated with 1mg At rasta IV. BP 109/53, hr 92, O2 91% on 4 liters oxygen resp 22 rates pain 8/10 in left leg. onver jessica Transaction, Provider Unknown - 10/20/2011 11:48 AM PST Progress Notes by Haylee Curran RN at 10/20/11 1148 Author: Haylee Curran RN Service: (none) Author Type: Registered Nurse Filed: 10/20/11 1148 Date of Service: 10/20/11 1148 Status: Signed [employer] Supervisor: Haylee Curran RN (Registered Nurse) Pt left for heart cath at 1030, returned around 1130. Unable to tolerate cath at this time. Jeffery Maurice - 10/20/2011 11:12 AM PST . Progress Notes by Jeffery Juarez MD at 10/20/11 1112 Author: Jeffery Juarez MD Service: Cardiology Author Type: Physician Filed: 10/20/11 1125 Date of Service: 10/20/11 1112 Status: Signed [employer] Supervisor: Jeffery Juarez MD (Physician) Related Notes: Original Note by Jeffery Juarez MD (Physician) filed at 10/20/11 1125 [facility]: Cardiology/[facility] Progress Note RE: Adam Sowmya : 1970 DATE OF SERVICE: 10/18/2011 PROVIDER:JEFFERY JUAREZ Pt is seen for F/U on: shortness of breath SUBJECTIVE: Still complaining about pain in her stump. Was brought to the woodworking shop laborer for recommended LHC. Pt however started to scream even with mild palpation of the groin to get the access and th en asked to me to stop and take her back to her room. The procedure was cancelled. CURRENT MEDICATIONS: Scheduled Meds: aspirin 325 mg Oral Daily with breakfast fentaNYL furosemide 40 mg Intravenous BIDD gabapentin 800 mg Oral TID hydrOXYzine 50 mg Oral 4x Daily influenza trivalent-split (latex free) 2010 vaccine 0.5 mL Intramuscular Once insulin aspart 0-6 Units Subcutaneous TID AC And insulin aspart 0-3 Units Subcutaneous Nightly insulin detemir 64 Units Subcutaneous QAM ipratropium-albuterol 3 mL Nebulization Q6H levofloxacin 750 mg Intravenous Q24H lidocaine lidocaine buffered 1% 0.5 mL Subcutaneous Once lisinopril 5 mg Oral Daily metoprolol 50 mg Oral BID omeprazole 20 mg Oral QAM AC Or pantoprazole 40 mg Intravenous QAM AC oxycodone 10 mg Oral Once - Now pravastatin 40 mg Oral Nightly prazosin 6 mg Oral Nightly sodium bicarbonate sodium chloride 3 mL Intravenous Q8H venlafaxine 300 mg Oral Daily Continuous Infusions: PRN Meds:.acetaminophen, acetaminophen, dextrose, dextrose, dextrose, dextrose, glucagon, g lucose, glucose, insulin aspart, lorazepam, lorazepam, ondansetron, ondansetron, oxycodone, polyethylene glycol, zolpidem, DISCONTD: oxycodone ALLERGIES: Allergies Allergen Reactions Demerol (Meperidine) Rash Latex Other (See Comments) Hives Sulfa Antibiotics Rash Vicodin (Hydrocodone-Acetaminophen) Rash PHYSICAL EXAM: BP 121/67 | Pulse 98 | Temp(Src) 98.1 F (36.7 C) (Oral) | Resp 15 | Ht 1.778 m (5' 10") | Wt 120.7 kg (266 lb 1.5 oz) | BMI 38.18 kg/m2 | SpO2 94% | LMP 10/04/2011 | Adriana astfeeding? No Intake/Output Summary (Last 24 hours) at 10/20/11 1112 Last data filed at 10/20/11 0500 Gross per 24 hour Intake 2050 ml Output 4200 ml Net -2150 ml General Appearance: Alert, oriented, anxious, moderate distress, appears stated age HEENT: No xanthelasmas. Extraocular movements were intact. No jaundice. NECK: no JVD, lymphadenopathy. Trachea is at midline. Thyroid is not palpable. CARDIAC: There is normal S1 and S2. No added sounds, murmurs, gallop, or rub. CHEST: Normal bilateral symmetrical chest excursion. Good bilateral air entry with no crack les or wheezing. No evidence of dullness. ABDOMEN: obese, soft and lax. No tenderness. No palpable organs. Active bowel sounds. EXTREMITIES:L BKA. NEURO: Alert and oriented times three with no focal deficit. Cranial nerves are grossly no rmal. SKIN: moderate fungal infection in the right groin. Lab Review Lab Results Component Value Date NA 136 10/20/2011 K 3.7 10/20/2011 CL 100 10/20/2011 CO2 27 10/20/2011 BUN 12 10/20/2011 CREATININE 0.7 10/20/2011 Lab Results Component Value Date CKTOTAL 57 10/18/2011 CKMB <0.5* 10/20/2011 CKMBINDEX UNABLE TO CALCULATE 10/20/2011 TROPONINI 0.53* 10/20/2011 Lab Results Component Value Date WBC 8.6 10/20/2011 HGB 10.3* 10/20/2011 HCT 29.9* 10/20/2011 MCV 79.4* 10/20/2011 PLT 226 10/20/2011 No components found with this basename: AST, ALT, ALBUMIN, ALKALINE PHOSPHATASE Imaging Chest X-Ray: improved pulmonary congestion. Cath: cancelled based on pt request. ASSESSMENT: 1. Severe shortness of breath/flash pulmonary edema, improved. ? CAD. 2. Diabetes mellitus. 3. Hypertension. 4. Hyperlipidemia. 5. Obesity. 6. Peripheral vascular disease status post previous amputation of the left leg below the knee and now recent revision. 7. Normal left ventricular systolic function based on echocardiogram. 8. History of amphetamine use, none recently. PLAN: PLAN AND RECOMMENDATIONS The patient presented with pulmonary edema with normal left ventricular systolic function. With her multiple risk factors for CAD, the presence of possible coronary artery disease is expected. Coronary angiography was recommended, however, the patient became belligerent and she asked to cancel the procedure. This has happened despite our efforts to calm her down. With that, coronary angiography was canceled and she has been directed back to her room. I recommend continuation of beta teena therapy as well as aspirin. I will sign off on the case and if further cardiac input is needed, a second opinion is to be asked for. JEFFERY JUAREZ MD 10/20/2011 11:12 AM Alcides Huang MD - 09/2011 10:45 AM PST Progress Notes by Alcides Ramon MD at 10/20/11 1044 Author: Alcides Ramon MD Service: (none) Author Type: Physician Filed: 10/20/11 1420 Date of Service: 10/20/11 1045 Status: Signed [employer] Supervisor: Alcides Ramon MD (Physician) [facility]: Hospitalist Progress Note Hospital Day: LOS: 2 days Post-Op Day: * No surgery found * SUBJECTIVE Events Overnight: Pt denying any chest pain. Complaining more about pain on her L leg stump actually. She Was discharged on oxycodone 20 mg q 6h post op. Prior to that for year s had been taking oxycodone 10 mg and says this particular dose was just given to her and is not working. Pain 04/28. Tachycardia better controlled with addition of B teena. Plan for her is to have angiography today. She has been NPO. Scheduled Medications aspirin 325 mg Oral Daily with breakfast furosemide 40 mg Intravenous BIDD gabapentin 800 mg Oral TID hydrOXYzine 50 mg Oral 4x Daily influenza trivalent-split (latex free) 2010 vaccine 0.5 mL Intramuscular Once insulin aspart 0-6 Units Subcutaneous TID AC And insulin aspart 0-3 Units Subcutaneous Nightly insulin detemir 64 Units Subcutaneous QAM ipratropium-albuterol 3 mL Nebulization Q6H levofloxacin 750 mg Intravenous Q24H lidocaine buffered 1% 0.5 mL Subcutaneous Once lisinopril 5 mg Oral Daily metoprolol 50 mg Oral BID omeprazole 20 mg Oral QAM AC Or pantoprazole 40 mg Intravenous QAM AC oxycodone 10 mg Oral Once - Now pravastatin 40 mg Oral Nightly prazosin 6 mg Oral Nightly sodium chloride 3 mL Intravenous Q8H venlafaxine 300 mg Oral Daily DISCONTD: carvedilol 3.125 mg Oral BID WC DISCONTD: enoxaparin 1 mg/kg Subcutaneous Once DISCONTD: enoxaparin 1 mg/kg Subcutaneous Q12H Continuous Infusions PRN Medications acetaminophen, acetaminophen, dextrose, dextrose, dextrose, dextrose, glucagon, glucose, gl ucose, insulin aspart, lorazepam, lorazepam, ondansetron, ondansetron, oxycodone, polyethyle ne glycol, zolpidem, DISCONTD: oxycodone OBJECTIVE Vital Signs: BP 121/67 | Pulse 98 | Temp(Src) 98.1 F (36.7 C) (Oral) | Resp 15 | Ht 1.778 m (5' 10") | Wt 120.7 kg (266 lb 1.5 oz) | BMI 38.18 kg/m2 | SpO2 94% | LMP 10/04/2011 | ? No Temp: [97.9 F (36.6 C)-98.4 F (36.9 C)] 98.1 F (36.7 C) (10/20 740) BP: (109-121)/(59-72) 121/67 mmHg (10/20 740) Heart Rate: [94-111] 98 (10/20 740) Resp: [15-28] 15 (10/20 740) SpO2: [94 %-97 %] 94 % (10/20 740) Weight: [120.7 kg (266 lb 1.5 oz)] 120.7 kg (266 lb 1.5 oz) (10/20 342) Physical Exam Vitals reviewed. Constitutional: She is oriented to person, place, and time. Distressed: secondary to pain f rom leg obese Neck: Neck supple. No JVD present. Cardiovascular: Normal rate, regular rhythm and normal heart sounds. Pulmonary/Chest: Effort normal and breath sounds normal. Abdominal: Soft. Musculoskeletal: L BKA, no signs of infection on stump site Neurological: She is alert and oriented to person, place, and time. Skin: Skin is warm and dry. DATA CBC: Lab Results Component Value Date WBC 8.6 10/20/2011 RBC 3.77* 10/20/2011 HGB 10.3* 10/20/2011 HCT 29.9* 10/20/2011 MCV 79.4* 10/20/2011 MCH 27.2 10/20/2011 MCHC 34.2 10/20/2011 RDW 38.5 10/20/2011 PLT 226 10/20/2011 MPV 7.3 10/20/2011 DIFFTYPE AUTOMATED 10/20/2011 CMP: Lab Results Component Value Date NA 136 10/20/2011 K 3.7 10/20/2011 CL 100 10/20/2011 CO2 27 10/20/2011 ANIONGAP 12 10/20/2011 GLUF 284* 10/20/2011 BUN 12 10/20/2011 CREATININE 0.7 10/20/2011 BCR 17 10/20/2011 CA 8.5 10/20/2011 PROT 6.3* 10/20/2011 ALB 2.3* 10/20/2011 GLOB 4.0 10/20/2011 BILITOT 0.3 10/20/2011 ALP 91 10/20/2011 AST 20 10/20/2011 ALT 20 10/20/2011 EGFR >60 10/20/2011 PROBLEM LIST Active Problems: Left leg pain Essential hypertension, benign Morbid obesity Amputated below knee Congestive heart failure Type I (juvenile type) diabetes mellitus without mention of complication, not stated as un controlled ASSESSMENT & PLAN NSTEMI With flash pulmonary edema secondary to diastolic dysfunction likely. Pt unable to proceed with angiography. Per pt she said she wanted to be sedated as she was too anxious wi th the procedure, coupled with her leg pain wanted to be controlled, and she wanted to be "p ut out " for the procedure. Dr. Juarez has signed off on case and would like a second opinio n if cardiology consult further needed. On talking to patient, she does want to move forward with angiography. Have consulted with Jacqueline Badillo to assist in moving forward with a possible change in physician Leg stump pain - Have increased to oxycodome 20 mg q 6h which was her post surgical dose. R ight now pain still uncontrolled so will put for a breakthrough pain medication as well. DM uncontrolled - DM educator notes appreciated. Have increased her regimen as suggested. Code Status: Full Code ALCIDES RAMON MD 10/20/2011 onversion Transact ion, Provider Unknown - 10/20/2011 5:56 AM PSTFormatting of this note might be different fr om the original. Progress Notes by Katie López RN at 10/20/11 0556 Author: Katie López RN Service: (none) Author Type: Registered Nurse Filed: 10/20/11 0559 Date of Service: 10/20/1156 Status: Signed [employer] Supervisor: Katie López RN (Registered Nurse) Pt is a/o x3, is currently watching TV and has been NPO since midnight for angiogram this a m. CBG this am 332, admin 4 units of novlog sliding scale. Dressing on left stump clean dry and intact. Vs stable will continue to monitor. BP 110/59 | Pulse 98 | Temp(Src) 98.4 F (36.9 C) (Oral) | Resp 18 |(266 lb 1.5 oz) | BM I 38.18 kg/m2 | SpO2 96% | on 3L onver jessica Transaction, Provider Unknown - 10/19/2011 10:03 PM PST Progress Notes by Katie López RN at 10/19/112202 Author: Katie López RN Service: (none) Author Type: Registered Nurse Filed: 10/19/112211 Date of Service: 10/19/112202 Status: Signed [employer] Supervisor: Katie López RN (Registered Nurse) At beginning of shift pt was awake and alert in bed, but now pt is lethargic awakened with touch and loud voice. Groin cleaned and antifungal powder placed with pillow cases. Will con tinue to monitor. onver jessica Transaction, Provider Unknown - 10/19/2011 7:50 PM PST Progress Notes by Marley Real RN at 10/19/111949 Author: Marley Real RN Service: (none) Author Type: Registered Nurse Filed: 10/19/111950 Date of Service: 10/19/111949 Status: Signed [employer] Supervisor: Marley Real RN (Registered Nurse) Pt resting in bed, a/ox4, VS stable, afebrile, c/o pain in left upper leg, medicated with p rn meds but pt requesting more pain medication, denies sob, no other issues or concerns Matilda Real RN onver jessica Transaction, Provider Unknown - 10/19/2011 3:31 PM PST Progress Notes by Cari Mullins RN, CDE at 10/19/11 1531 Author: Cari Mullins RN, CDE Service: (none) Author Type: Registered Nurse Filed: 10/19/11 1535 Date of Service: 10/19/11 1531 Status: Signed [employer] Supervisor: Cari Mullins RN, LEORAE ([employer] Final [employer]) [employer] attempted to see pt. This morning around 0930 and again this afternoon , but both times pt. Was too tired for any education. Will review blood sugars again in the am to see the effect of the Levemir that was given this morning, (64 units, ) along with th e low dose correction Novolog. The For[employer] Final Finisher for tomorrow will attempt to see pt. A gain. onver jessica Transaction, Provider Unknown - 10/19/2011 10:35 AM PST Progress Notes by Supriya Dale at 10/19/11 1035 Author: Supriya Dale Service: (none) Author Type: [employer] Filed: 10/19/11 1036 Date of Service: 10/19/11 1035 Status: Signed [employer] Supervisor: Supriya Dale ([employer]) FLORENTIN called Edna Miami the senior manager creative services at [facility] [phone] and requested a return call to see if the organization would provide transportation home for pt upon d/c...will con tinue to follow. onver jessica Transaction, Provider Unknown - 10/19/2011 10:19 AM PST Progress Notes by Supriya Dale at 10/19/11 1019 Author: Supriya Dale Service: (none) Author Type: [employer] Filed: 10/19/11 1021 Date of Service: 10/19/11 1019 Status: Signed [employer] Supervisor: Supriya Dale ([employer]) CM met with pt who states that she lives in [facility] in a transition house called [facility]... Pt does not have friends or family to transport her home, she states she has burned a lot of bridges with her drug use, pt does not use any DME at home other than a prostetic le g... CM will check with [employer] to see if they would provide transportation for pt home ... Will continue to follow. Alcides Poon MD - 10/19/2011 9:05 AM PST Progress Notes by Alcides Ramon MD at 10/19/11904 Author: Alcides Ramon MD Service: (none) Author Type: Physician Filed: 10/19/11 1534 Date of Service: 10/19/11904 Status: Signed [employer] Supervisor: Alcides Ramon MD (Physician) [facility] Service: Hospitalist Progress Note Hospital Day: LOS: 1 day Post-Op Day: * No surgery found * SUBJECTIVE Events Overnight: Temperature curve trending down, nothing coming up as far as cultur e reports. Pt denies any chest pain. Troponin increased slightly this morning. Scheduled Medications acetaminophen acetaminophen 1,000 mg Oral Once carvedilol 3.125 mg Oral BID WC enoxaparin 1 mg/kg Subcutaneous Once furosemide 40 mg Intravenous Once furosemide 40 mg Intravenous BIDD gabapentin 800 mg Oral TID heparin (porcine) 5,000 Units Subcutaneous Q8H hydrOXYzine 50 mg Oral 4x Daily influenza trivalent-split (latex free) 2010 vaccine 0.5 mL Intramuscular Once insulin aspart 0-6 Units Subcutaneous TID AC And insulin aspart 0-3 Units Subcutaneous Nightly insulin detemir 64 Units Subcutaneous QAM ipratropium-albuterol 3 mL Nebulization Q6H levofloxacin 750 mg Intravenous Q24H lidocaine buffered 1% 0.5 mL Subcutaneous Once lisinopril 5 mg Oral Daily lorazepam 1 mg Intravenous Once omeprazole 20 mg Oral QAM AC Or pantoprazole 40 mg Intravenous QAM AC oxycodone oxycodone 10 mg Oral Once - Now pravastatin 40 mg Oral Nightly prazosin 6 mg Oral Nightly sodium chloride 3 mL Intravenous Q8H venlafaxine 300 mg Oral Daily zolpidem 10 mg Oral Once DISCONTD: heparin (porcine) 5,000 Units Subcutaneous Q8H DISCONTD: lisinopril 5 mg Oral Daily DISCONTD: sodium chloride 3 mL Intravenous Q8H Continuous Infusions PRN Medications acetaminophen, acetaminophen, dextrose, dextrose, dextrose, dextrose, glucagon, glucose, gl ucose, insulin aspart, lorazepam, lorazepam, ondansetron, ondansetron, oxycodone, polyethyle ne glycol, zolpidem, DISCONTD: polyethylene glycol, DISCONTD: zolpidem OBJECTIVE Vital Signs: BP 113/57 | Pulse 111 | Temp(Src) 97.8 F (36.6 C) (Oral) | Resp 26 | Ht 1.778 m (5' 10" ) | Wt 120.3 kg (265 lb 3.4 oz) | BMI 38.05 kg/m2 | SpO2 96% | LMP 10/04/2011 | Breastfeedin g? No Temp: [97.8 F (36.6 C)-100.4 F (38 C)] 98.1 F (36.7 C) (10/19 120) BP: (107-137)/(53-78) 115/62 mmHg (10/19 1206) Heart Rate: [108-119] 111 (10/19 1206) Resp: [20-28] 28 (10/19 1206) SpO2: [92 %-97 %] 96 % (10/19 1330) Height: [177.8 cm (5' 10")] 177.8 cm (5' 10") (10/18 2310) Weight: [116.376 kg (256 lb 9 oz)-120.3 kg (265 lb 3.4 oz)] 120.3 kg (265 lb 3.4 oz) (09/21) BMI (Calculated): [38.1] 38.1 (10/18 2310) Physical Exam Constitutional: No distress. obese HENT: Head: Normocephalic and atraumatic. Neck: Neck supple. No JVD present. Cardiovascular: Normal rate and regular rhythm. Pulmonary/Chest: Effort normal and breath sounds normal. She has no wheezes. Difficult to auscultate given habitus Abdominal: Soft. Bowel sounds are normal. Musculoskeletal: She exhibits no edema. Neurological: She is alert. Skin: Skin is warm. She is diaphoretic. There is erythema. Mild erythema on L BKA staple site, no discharge noted DATA CBC: Lab Results Component Value Date WBC 8.9 10/19/2011 RBC 3.61* 10/19/2011 HGB 9.6* 10/19/2011 HCT 28.5* 10/19/2011 MCV 79.0* 10/19/2011 MCH 26.6* 10/19/2011 MCHC 33.7 10/19/2011 RDW 38.9 10/19/2011 PLT 236 10/19/2011 MPV 6.8 10/19/2011 DIFFTYPE AUTOMATED 10/19/2011 CMP: Lab Results Component Value Date NA 137 10/19/2011 K 3.5 10/19/2011 CL 103 10/19/2011 CO2 26 10/19/2011 ANIONGAP 12 10/19/2011 GLUF 260* 10/19/2011 BUN 10 10/19/2011 CREATININE 0.6 10/19/2011 BCR 16 10/19/2011 CA 8.4* 10/19/2011 PROT 6.6 10/18/2011 ALB 2.4* 10/18/2011 GLOB 4.2 10/18/2011 BILITOT 0.4 10/18/2011 ALP 92 10/18/2011 AST 16 10/18/2011 ALT 21 10/18/2011 EGFR >60 10/19/2011 PT/INR: Lab Results Component Value Date INR 1.1 10/18/2011 PTT: Lab Results Component Value Date APTT 39* 10/18/2011 [APTT PROBLEM LIST Active Problems: Left leg pain Essential hypertension, benign Morbid obesity Amputated below knee Congestive heart failure Type I (juvenile type) diabetes mellitus without mention of complication, not stated as un controlled ASSESSMENT & PLAN 1. NSTEMI - Pt will be seen by Dr. Juarez today. Cont with Lovenox q12 h, ASA 325, statin, ACEi, B teena for now, follow cardiac markers 2. CHF - pulmonary edema seen on imaging. Awaiting 2 D echo results, cont with lasix 3. Low grade temp - ? Pulmonary source or stump site on L BKA. Still has mild redness from stump site. Will continue with Levaquin for now. Await results of culture. 4. DM type I - will refer for DM education, glucose has been uncontrolled 5. Needs PT/Occupational Therapy evaluation as well Code Status: Full Code ALCIDES RAMON MD 10/19/2011 onversion Transact ion, Provider Unknown - 10/19/2011 4:40 AM PSTFormatting of this note might be different fr om the original. Progress Notes by Gita Rodriguez RN at 10/19/11439 Author: Gita Rodriguez RN Service: (none) Author Type: Registered Nurse Filed: 10/19/11442 Date of Service: 10/19/11439 Status: Signed [employer] Supervisor: Gita Rodriguez RN (Registered Nurse) Pt currently sleeping. Vital signs have been stable since admit. No temperature noted since arrival from ER. Pt continues to complain of pain in left leg. No pain medication given as patient has been lethargic and sleeping. Pt denies chest pain or SOB since arrival to floor. No acute changes from previous assessment. Will continue to monitor. Gita Jensen RN 10/19/2011 4:43 AM onver jessica Transaction, Provider Unknown - 10/19/2011 1:38 AM PST Progress Notes by Sandra Gleason RPH at 10/19/11137 Author: Sandra Gleason RPH Service: (none) Author Type: Pharmacist Filed: 10/19/11137 Date of Service: 10/19/11137 Status: Signed [employer] Supervisor: Sandra Gleason RPH (Pharmacist) Clinical Pharmacy Note: Renal Monitoring Adam Sowmya 41 y.o. female Ht Readings from Last 1 Encounters: 10/18/11 1.778 m (5' 10") Wt Readings from Last 1 Encounters: 10/18/11 120.3 kg (265 lb 3.4 oz) CREATININE Date Value Range Status 10/18/2011 0.6 0.6-1.2 (mg/dL) Final Testing performed at [facility];[address] [place] [address];[place] [id number] CREATININE: 0.6 (10/18/11 1641) Estimated creatinine clearance - Cockcroft-Gault CrCl: 175.5 mL/min Pharmacy dosing for renal function per Dr. Zepeda. Will order the following dosage adjustments: Levaquin 750 mg IV Q24H Pharmacy will continue to monitor for changes in medication orders and in renal function an d adjust accordingly. Sandra Gleason, Nory 10/19/2011 1:37 AM Georgie griffithsed in this encounter Plan of Treatment +--------+ + + + + | Date | Type | Specialty | Care Team | Description | +--------+ + + + + | 10/10/ | Office | Cardiology | Jerry Watts | | | 2019 | Visit | | MD [address] | | | | | | [facility] | | | | | | [place], [place] | | | | | | [id number] | | | | | | | [...] [address] | | | | | | [place] [address] | | | | | | [phone] | | | | | | | | +--------+ + + + + | 11/25/ | Office | Nephrology | Kei Arthur MD | | | 2019 | Visit | | [address] [facility] | | | | | | [address] | | | | | | [id number] | | | | | | | | +--------+ + + + + documented as of this encounter Procedures + +--------+ + + + | Procedure Name | Priori | Date/Time | Associated Diagnosis | Comments | | | ty | | | | + +--------+ + + + | CV CARDIAC PROCEDURE | Routin | 10/21/2011 | | Results for this | | | e | 6:44 PM | | procedure are in the | | | | PST | | results section. | + +--------+ + + + | CV CARDIAC PROCEDURE | Routin | 10/21/2011 | | Results for this | | | e | 6:44 PM | | procedure are in the | | | | PST | | results section. | + +--------+ + + + | CV CARDIAC PROCEDURE | Routin | 10/20/2011 | | Results for this | | | e | 11:23 AM | | procedure are in the | | | | PST | | results section. | + +--------+ + + + | XR CHEST 1 VIEW | Routin | 10/20/2011 | | Results for this | | | e | 6:38 AM | | procedure are in the | | | | PST | | results section. | + +--------+ + + + | GRAM STAIN, REFLEX | RENITA | 10/19/2011 | | Results for this | | SPUTUM CULTURE | | 11:31 AM | | procedure are in the | | | | PST | | results section. | + +--------+ + + + | ECHO COMPLETE | Routin | 10/19/2011 | | Results for this | | | e | 9:50 AM | | procedure are in the | | | | PST | | results section. | + +--------+ + + + | XR CHEST 2 VIEWS | Routin | 10/18/2011 | | Results for this | | | e | 5:12 PM | | procedure are in the | | | | PST | | results section. | + +--------+ + + + | CULTURE, URINE | STAT | 10/18/2011 | | Results for this | | | | 1:11 AM | | procedure are in the | | | | PST | | results section. | + +--------+ + + + | CT CHEST W CONTRAST | Routin | 10/17/2011 | | Results for this | | | e | 7:28 AM | | procedure are in the | | | | PST | | results section. | + +--------+ + + + documented in this encounter Results CV CARDIAC PROCEDURE (10/21/2011 6:44 PM PST) + + | Specimen | + + | | + + + + + | Narrative | Performed At | + + + | | | | | | | PROCEDURES 1. Selective coronary angiography. 2. Left heart | | | catheterization. 3. Left ventriculography. 4. Percutaneous coronary | | | intervention with stenting of the left circumflex artery. 5. | | | Right femoral angiogram for closure device deployment. 6. A 6-Chilean | | | Angio-Seal deployment at the closure device at the right | | | arteriotomy site. INDICATIONS The patient is a 41-year-old lady | | | who was admitted at [facility] with a diagnosis | | | of flash pulmonary edema and possible non-ST elevation myocardial | | | infarction. The patient was evaluated by Dr. Juarez, who advised a | | | cardiac catheterization in order to rule out obstructive coronary | | | artery disease and possible myocardial ischemia as an underlying | | | etiology of her symptoms. An attempt at cardiac catheterization was | | | performed on October 20, 2011; however, that attempt was aborted after | | | the patient requested that the procedure be terminated secondary to | | | pain, even before she was stuck by any needles. I was, therefore, | | | requested to perform a second attempt at cardiac catheterization. | | | However, this time we decided to use a general anesthesia for maximum | | | patient comfort. DESCRIPTION OF PROCEDURE The patient presented | | | to the cardiac catheterization lab in the fasting state. An informed | | | consent was obtained from the patient after explaining the risks and | | | benefits of the procedures, as well as alternative options. I did | | | explain to the patient the possibilities of contrast-induced | | | nephropathy, vascular injury, stroke, myocardial infarction, limb | | | loss, and even . After obtaining the informed consent, the | | | patient was put under general anesthesia by the anesthesiologist, | | | Maia, and was placed on mechanical ventilation. The right | | | groin area was prepped and draped in the usual sterile fashion. Local | | | anesthesia was given to the right groin with 1% lidocaine. A | | | 6-Chilean vascular sheath was inserted in the right femoral artery | | | using the modified Seldinger technique. A JL-4 catheter was advanced | | | over the wire, under fluoroscopic guidance, and was engaged | | | selectively with the ostium of the left main coronary artery. | | | Contrast was injected and multiple angiograms were obtained in | | | different angles. The catheter was exchanged over a wire to a JR-4 | | | catheter, which was engaged selectively with the ostium of the right | | | coronary artery. Contrast was injected and multiple angiograms were | | | obtained in different angles. The catheter was exchanged over the | | | wire to a pigtail catheter that was introduced into the left | | | ventricular cavity. A left ventriculogram was obtained in the | | | 30-degree ALVAREZ projection using 36 mL of contrast. The pigtail | | | catheter was then retrieved over a wire. The coronary angiograms were | | | discussed with Dr. Ardon, who presented to the cardiac | | | catheterization laboratory. In view of lack of adequate target in both | | | the LAD and the RCA territories, and in view of unsuitability for | | | coronary artery bypass graft surgery, we decided to proceed with | | | percutaneous intervention and stenting of the left circumflex artery. | | | This was performed after the diagnostic procedure. After the | | | PCI, the guiding catheter was introduced over the wire and multiple | | | angiograms obtained via side port of the vascular sheath. The sheath | | | was pulled and a 6-Chilean Angio-Seal was deployed at the right | | | arteriotomy site successfully. Hemostasis was achieved in the cardiac | | | catheterization lab. The patient was transferred out of the cardiac | | | catheterization lab in stable condition. FINDINGS HEMODYNAMICS | | | The aortic pressure was 77/48 with a mean aortic pressure of 61 | | | mmHg. Left ventricular pressure was 82/30 with a left ventricular | | | end-diastolic pressure of 30 mmHg. There was no significant | | | transaortic pressure gradient on catheter pullback. CORONARY | | | ANGIOGRAPHY 1. Left main was normal. 2. The LAD had a proximal 40% | | | calcified stenosis. The mid segment of the LAD was totally | | | occluded after the takeoff of the first diagonal branch, which | | | was a very small caliber vessel and had an ostial 90% stenosis. | | | The mid segment of the LAD was very faintly filling via right to | | | left collaterals. 3. Left circumflex had mild proximal plaque and a | | | mid 90% stenosis after takeoff of the first obtuse marginal | | | branch. The first obtuse marginal branch had mild diffuse | | | disease. 4. The right coronary artery was a small caliber vessel with | | | diffuse proximal disease. The distal segment had a 95% stenosis | | | followed by total occlusion. The right posterior descending | | | artery and the right posterolateral artery were filling via | | | bridging collaterals and they appeared to be severely and | | | diffusely diseased. LEFT VENTRICULOGRAM Severe left ventricular | | | systolic dysfunction with an ejection fraction of 25% to 30% with | | | anteroapical akinesis. DESCRIPTION OF PROCEDURE After reviewing | | | the angiogram and discussing the case with Dr. Ardon, and in view | | | of lack of adequate target for surgical revascularization, especially | | | since the anteroapical segment appears to be totally akinetic with a | | | small chance of significant viability, we decided to proceed with | | | percutaneous intervention and stenting of the left circumflex artery | | | and since the patient is known to be noncompliant with medication | | | intake, with a past history of IV drug abuse, I decided to deploy a | | | bare-metal stent, especially since the lesion was of a decent caliber | | | and was of a shorter length. The patient was therefore give Angiomax | | | bolus, followed by a drip. An ACT of 411 seconds was achieved. The | | | Voda left 3.5 guiding catheter was then advanced over the wire | | | under fluoroscopic guidance and engaged selectively with the ostium | | | of the left main coronary artery. The stenosis in the segment of the | | | left circumflex was crossed easily with BMW wire. Subsequently a | | | Vision 3 x 12 mm stent was positioned across the stenosis and | | | deployed at 11 atmospheres. Multiple angiograms done after stent | | | deployment revealed good wall apposition, no arch dissection or | | | residual stenosis. At this point, all equipment was retrieved and the | | | procedure was terminated. ESTIMATED BLOOD LOSS Less than 50 mL. | | | IMPRESSION 1. Coronary artery disease as described above. 2. | | | Severe left ventricular systolic dysfunction with ejection fraction | | | 25% to 30% with anteroapical akinesis. 3. Elevated left | | | ventricular end diastolic pressure. 4. Successful percutaneous | | | coronary intervention with stenting of the left circumflex | | | artery. The Vision 3 x 12 mm stent was deployed at 11 atmospheres | | | with excellent angiographic results. RECOMMENDATIONS 1. The | | | patient will be monitored overnight with serial cardiac enzymes and | | | serial electrocardiograms. 2. She was given a 600 mg loading dose | | | of Plavix in the cardiac catheterization laboratory via | | | nasogastric tube and the patient will be maintained on dual | | | antiplatelet therapy with aspirin and Plavix for a minimum of 1 | | | month, but preferably for 1 year, in view of presenting with an | | | acute coronary syndrome and deployment of a bare-metal stent. 3. The | | | patient should be maintained on medical therapy with aggressive | | | risk factor modification. 4. Further followup will be needed for | | | management of her ischemic cardiomyopathy. Read by VIRIDIANA | | | MD JOSE CARLOS 10/24/2011 09:53 P | | + + + + + | Procedure Note | + + | Marcelo Matias Conversion - 05/12/2019 3:04 AM PDT | | | | PROCEDURES | | 1. Selective coronary angiography. | | 2. Left heart catheterization. | | 3. Left ventriculography. | | 4. Percutaneous coronary intervention with stenting of the left circumflex | | artery. | | 5. Right femoral angiogram for closure device deployment. | | 6. A 6-Chilean Angio-Seal deployment at the closure device at the right | | arteriotomy site. | | | | INDICATIONS | | The patient is a 41-year-old lady who was admitted at [facility] with a diagnosis of flash pulmonary edema and possible | | non-ST elevation myocardial infarction. The patient was evaluated by | | Ann, who advised a cardiac catheterization in order to rule out | | obstructive coronary artery disease and possible myocardial ischemia as an | | underlying etiology of her symptoms. An attempt at cardiac catheterization | | was performed on October 20, 2011; however, that attempt was aborted after | | the patient requested that the procedure be terminated secondary to pain, | | even before she was stuck by any needles. I was, therefore, requested to | | perform a second attempt at cardiac catheterization. However, this time we | | decided to use a general anesthesia for maximum patient comfort. | | | | DESCRIPTION OF PROCEDURE | | The patient presented to the cardiac catheterization lab in the fasting | | state. An informed consent was obtained from the patient after explaining | | the risks and benefits of the procedures, as well as alternative options. | | I did explain to the patient the possibilities of contrast-induced | | nephropathy, vascular injury, stroke, myocardial infarction, limb loss, | | and even . After obtaining the informed consent, the patient was put | | under general anesthesia by the anesthesiologist, Dr. Carvalho, and was | | placed on mechanical ventilation. | | | | The right groin area was prepped and draped in the usual sterile fashion. | | Local anesthesia was given to the right groin with 1% lidocaine. A | | 6-Chilean vascular sheath was inserted in the right femoral artery using | | the modified Seldinger technique. A JL-4 catheter was advanced over the | | wire, under fluoroscopic guidance, and was engaged selectively with the | | ostium of the left main coronary artery. Contrast was injected and | | multiple angiograms were obtained in different angles. The catheter was | | exchanged over a wire to a JR-4 catheter, which was engaged selectively | | with the ostium of the right coronary artery. Contrast was injected and | | multiple angiograms were obtained in different angles. | | | | The catheter was exchanged over the wire to a pigtail catheter that was | | introduced into the left ventricular cavity. A left ventriculogram was | | obtained in the 30-degree ALVAREZ projection using 36 mL of contrast. The | | pigtail catheter was then retrieved over a wire. The coronary angiograms | | were discussed with Dr. Ardon, who presented to the cardiac | | catheterization laboratory. In view of lack of adequate target in both the | | LAD and the RCA territories, and in view of unsuitability for coronary | | artery bypass graft surgery, we decided to proceed with percutaneous | | intervention and stenting of the left circumflex artery. This was | | performed after the diagnostic procedure. | | | | After the PCI, the guiding catheter was introduced over the wire and | | multiple angiograms obtained via side port of the vascular sheath. The | | sheath was pulled and a 6-Chilean Angio-Seal was deployed at the right | | arteriotomy site successfully. Hemostasis was achieved in the cardiac | | catheterization lab. The patient was transferred out of the cardiac | | catheterization lab in stable condition. | | | | FINDINGS | | | | HEMODYNAMICS | | The aortic pressure was 77/48 with a mean aortic pressure of 61 mmHg. | | Left ventricular pressure was 82/30 with a left ventricular end-diastolic | | pressure of 30 mmHg. | | There was no significant transaortic pressure gradient on catheter | | pullback. | | | | CORONARY ANGIOGRAPHY | | 1. Left main was normal. | | 2. The LAD had a proximal 40% calcified stenosis. The mid segment of the | | LAD was totally occluded after the takeoff of the first diagonal | | branch, which was a very small caliber vessel and had an ostial 90% | | stenosis. The mid segment of the LAD was very faintly filling via right | | to left collaterals. | | 3. Left circumflex had mild proximal plaque and a mid 90% stenosis after | | takeoff of the first obtuse marginal branch. The first obtuse marginal | | branch had mild diffuse disease. | | 4. The right coronary artery was a small caliber vessel with diffuse | | proximal disease. The distal segment had a 95% stenosis followed by | | total occlusion. The right posterior descending artery and the right | | posterolateral artery were filling via bridging collaterals and they | | appeared to be severely and diffusely diseased. | | | | LEFT VENTRICULOGRAM | | Severe left ventricular systolic dysfunction with an ejection fraction of | | 25% to 30% with anteroapical akinesis. | | | | DESCRIPTION OF PROCEDURE | | After reviewing the angiogram and discussing the case with Dr. Ardon, | | and in view of lack of adequate target for surgical revascularization, | | especially since the anteroapical segment appears to be totally akinetic | | with a small chance of significant viability, we decided to proceed with | | percutaneous intervention and stenting of the left circumflex artery and | | since the patient is known to be noncompliant with medication intake, with | | a past history of IV drug abuse, I decided to deploy a bare-metal stent, | | especially since the lesion was of a decent caliber and was of a shorter | | length. The patient was therefore give Angiomax bolus, followed by a drip. | | An ACT of 411 seconds was achieved. The Voda left 3.5 guiding catheter | | was then advanced over the wire under fluoroscopic guidance and engaged | | selectively with the ostium of the left main coronary artery. The stenosis | | in the segment of the left circumflex was crossed easily with BMW wire. | | Subsequently a Vision 3 x 12 mm stent was positioned across the stenosis | | and deployed at 11 atmospheres. Multiple angiograms done after stent | | deployment revealed good wall apposition, no arch dissection or residual | | stenosis. At this point, all equipment was retrieved and the procedure was | | terminated. | | | | ESTIMATED BLOOD LOSS | | Less than 50 mL. | | | | IMPRESSION | | 1. Coronary artery disease as described above. | | 2. Severe left ventricular systolic dysfunction with ejection fraction 25% | | to 30% with anteroapical akinesis. | | 3. Elevated left ventricular end diastolic pressure. | | 4. Successful percutaneous coronary intervention with stenting of the left | | circumflex artery. The Vision 3 x 12 mm stent was deployed at 11 | | atmospheres with excellent angiographic results. | | | | RECOMMENDATIONS | | 1. The patient will be monitored overnight with serial cardiac enzymes and | | serial electrocardiograms. | | 2. She was given a 600 mg loading dose of Plavix in the cardiac | | catheterization laboratory via nasogastric tube and the patient will be | | maintained on dual antiplatelet therapy with aspirin and Plavix for a | | minimum of 1 month, but preferably for 1 year, in view of presenting | | with an acute coronary syndrome and deployment of a bare-metal stent. | | 3. The patient should be maintained on medical therapy with aggressive | | risk factor modification. | | 4. Further followup will be needed for management of her ischemic | | cardiomyopathy. | | | | | | Read by VIRIDIANA BRAMBILA MD 10/24/2011 09:53 P | | | | | + + CV CARDIAC PROCEDURE (10/21/2011 6:44 PM PST) + + | Specimen | + + | | + + + + + | Narrative | Performed At | + + + | | | | | | | PROCEDURES 1. Selective coronary angiography. 2. Left heart | | | catheterization. 3. Left ventriculography. 4. Percutaneous coronary | | | intervention with stenting of the left circumflex artery. 5. | | | Right femoral angiogram for closure device deployment. 6. A 6-Chilean | | | Angio-Seal deployment at the closure device at the right | | | arteriotomy site. INDICATIONS The patient is a 41-year-old lady | | | who was admitted at [facility] with a diagnosis | | | of flash pulmonary edema and possible non-ST elevation myocardial | | | infarction. The patient was evaluated by Dr. Juarez, who advised a | | | cardiac catheterization in order to rule out obstructive coronary | | | artery disease and possible myocardial ischemia as an underlying | | | etiology of her symptoms. An attempt at cardiac catheterization was | | | performed on October 20, 2011; however, that attempt was aborted after | | | the patient requested that the procedure be terminated secondary to | | | pain, even before she was stuck by any needles. I was, therefore, | | | requested to perform a second attempt at cardiac catheterization. | | | However, this time we decided to use a general anesthesia for maximum | | | patient comfort. DESCRIPTION OF PROCEDURE The patient presented | | | to the cardiac catheterization lab in the fasting state. An informed | | | consent was obtained from the patient after explaining the risks and | | | benefits of the procedures, as well as alternative options. I did | | | explain to the patient the possibilities of contrast-induced | | | nephropathy, vascular injury, stroke, myocardial infarction, limb | | | loss, and even . After obtaining the informed consent, the | | | patient was put under general anesthesia by the anesthesiologist, | | | Maia, and was placed on mechanical ventilation. The right | | | groin area was prepped and draped in the usual sterile fashion. Local | | | anesthesia was given to the right groin with 1% lidocaine. A | | | 6-Chilean vascular sheath was inserted in the right femoral artery | | | using the modified Seldinger technique. A JL-4 catheter was advanced | | | over the wire, under fluoroscopic guidance, and was engaged | | | selectively with the ostium of the left main coronary artery. | | | Contrast was injected and multiple angiograms were obtained in | | | different angles. The catheter was exchanged over a wire to a JR-4 | | | catheter, which was engaged selectively with the ostium of the right | | | coronary artery. Contrast was injected and multiple angiograms were | | | obtained in different angles. The catheter was exchanged over the | | | wire to a pigtail catheter that was introduced into the left | | | ventricular cavity. A left ventriculogram was obtained in the | | | 30-degree ALVAREZ projection using 36 mL of contrast. The pigtail | | | catheter was then retrieved over a wire. The coronary angiograms were | | | discussed with Dr. Ardon, who presented to the cardiac | | | catheterization laboratory. In view of lack of adequate target in both | | | the LAD and the RCA territories, and in view of unsuitability for | | | coronary artery bypass graft surgery, we decided to proceed with | | | percutaneous intervention and stenting of the left circumflex artery. | | | This was performed after the diagnostic procedure. After the | | | PCI, the guiding catheter was introduced over the wire and multiple | | | angiograms obtained via side port of the vascular sheath. The sheath | | | was pulled and a 6-Chilean Angio-Seal was deployed at the right | | | arteriotomy site successfully. Hemostasis was achieved in the cardiac | | | catheterization lab. The patient was transferred out of the cardiac | | | catheterization lab in stable condition. FINDINGS HEMODYNAMICS | | | The aortic pressure was 77/48 with a mean aortic pressure of 61 | | | mmHg. Left ventricular pressure was 82/30 with a left ventricular | | | end-diastolic pressure of 30 mmHg. There was no significant | | | transaortic pressure gradient on catheter pullback. CORONARY | | | ANGIOGRAPHY 1. Left main was normal. 2. The LAD had a proximal 40% | | | calcified stenosis. The mid segment of the LAD was totally | | | occluded after the takeoff of the first diagonal branch, which | | | was a very small caliber vessel and had an ostial 90% stenosis. | | | The mid segment of the LAD was very faintly filling via right to | | | left collaterals. 3. Left circumflex had mild proximal plaque and a | | | mid 90% stenosis after takeoff of the first obtuse marginal | | | branch. The first obtuse marginal branch had mild diffuse | | | disease. 4. The right coronary artery was a small caliber vessel with | | | diffuse proximal disease. The distal segment had a 95% stenosis | | | followed by total occlusion. The right posterior descending | | | artery and the right posterolateral artery were filling via | | | bridging collaterals and they appeared to be severely and | | | diffusely diseased. LEFT VENTRICULOGRAM Severe left ventricular | | | systolic dysfunction with an ejection fraction of 25% to 30% with | | | anteroapical akinesis. DESCRIPTION OF PROCEDURE After reviewing | | | the angiogram and discussing the case with Dr. Ardon, and in view | | | of lack of adequate target for surgical revascularization, especially | | | since the anteroapical segment appears to be totally akinetic with a | | | small chance of significant viability, we decided to proceed with | | | percutaneous intervention and stenting of the left circumflex artery | | | and since the patient is known to be noncompliant with medication | | | intake, with a past history of IV drug abuse, I decided to deploy a | | | bare-metal stent, especially since the lesion was of a decent caliber | | | and was of a shorter length. The patient was therefore give Angiomax | | | bolus, followed by a drip. An ACT of 411 seconds was achieved. The | | | Voda left 3.5 guiding catheter was then advanced over the wire | | | under fluoroscopic guidance and engaged selectively with the ostium | | | of the left main coronary artery. The stenosis in the segment of the | | | left circumflex was crossed easily with BMW wire. Subsequently a | | | Vision 3 x 12 mm stent was positioned across the stenosis and | | | deployed at 11 atmospheres. Multiple angiograms done after stent | | | deployment revealed good wall apposition, no arch dissection or | | | residual stenosis. At this point, all equipment was retrieved and the | | | procedure was terminated. ESTIMATED BLOOD LOSS Less than 50 mL. | | | IMPRESSION 1. Coronary artery disease as described above. 2. | | | Severe left ventricular systolic dysfunction with ejection fraction | | | 25% to 30% with anteroapical akinesis. 3. Elevated left | | | ventricular end diastolic pressure. 4. Successful percutaneous | | | coronary intervention with stenting of the left circumflex | | | artery. The Vision 3 x 12 mm stent was deployed at 11 atmospheres | | | with excellent angiographic results. RECOMMENDATIONS 1. The | | | patient will be monitored overnight with serial cardiac enzymes and | | | serial electrocardiograms. 2. She was given a 600 mg loading dose | | | of Plavix in the cardiac catheterization laboratory via | | | nasogastric tube and the patient will be maintained on dual | | | antiplatelet therapy with aspirin and Plavix for a minimum of 1 | | | month, but preferably for 1 year, in view of presenting with an | | | acute coronary syndrome and deployment of a bare-metal stent. 3. The | | | patient should be maintained on medical therapy with aggressive | | | risk factor modification. 4. Further followup will be needed for | | | management of her ischemic cardiomyopathy. Read by VIRIDIANA | | | MD JOSE CARLOS 10/24/2011 09:53 P | | + + + + + | Procedure Note | + + | Marcelo Matias Conversion - 05/12/2019 3:04 AM PDT | | | | PROCEDURES | | 1. Selective coronary angiography. | | 2. Left heart catheterization. | | 3. Left ventriculography. | | 4. Percutaneous coronary intervention with stenting of the left circumflex | | artery. | | 5. Right femoral angiogram for closure device deployment. | | 6. A 6-Chilean Angio-Seal deployment at the closure device at the right | | arteriotomy site. | | | | INDICATIONS | | The patient is a 41-year-old lady who was admitted at [facility] with a diagnosis of flash pulmonary edema and possible | | non-ST elevation myocardial infarction. The patient was evaluated by | | Ann, who advised a cardiac catheterization in order to rule out | | obstructive coronary artery disease and possible myocardial ischemia as an | | underlying etiology of her symptoms. An attempt at cardiac catheterization | | was performed on October 20, 2011; however, that attempt was aborted after | | the patient requested that the procedure be terminated secondary to pain, | | even before she was stuck by any needles. I was, therefore, requested to | | perform a second attempt at cardiac catheterization. However, this time we | | decided to use a general anesthesia for maximum patient comfort. | | | | DESCRIPTION OF PROCEDURE | | The patient presented to the cardiac catheterization lab in the fasting | | state. An informed consent was obtained from the patient after explaining | | the risks and benefits of the procedures, as well as alternative options. | | I did explain to the patient the possibilities of contrast-induced | | nephropathy, vascular injury, stroke, myocardial infarction, limb loss, | | and even . After obtaining the informed consent, the patient was put | | under general anesthesia by the anesthesiologist, Dr. Carvalho, and was | | placed on mechanical ventilation. | | | | The right groin area was prepped and draped in the usual sterile fashion. | | Local anesthesia was given to the right groin with 1% lidocaine. A | | 6-Chilean vascular sheath was inserted in the right femoral artery using | | the modified Seldinger technique. A JL-4 catheter was advanced over the | | wire, under fluoroscopic guidance, and was engaged selectively with the | | ostium of the left main coronary artery. Contrast was injected and | | multiple angiograms were obtained in different angles. The catheter was | | exchanged over a wire to a JR-4 catheter, which was engaged selectively | | with the ostium of the right coronary artery. Contrast was injected and | | multiple angiograms were obtained in different angles. | | | | The catheter was exchanged over the wire to a pigtail catheter that was | | introduced into the left ventricular cavity. A left ventriculogram was | | obtained in the 30-degree ALVAREZ projection using 36 mL of contrast. The | | pigtail catheter was then retrieved over a wire. The coronary angiograms | | were discussed with Dr. Ardon, who presented to the cardiac | | catheterization laboratory. In view of lack of adequate target in both the | | LAD and the RCA territories, and in view of unsuitability for coronary | | artery bypass graft surgery, we decided to proceed with percutaneous | | intervention and stenting of the left circumflex artery. This was | | performed after the diagnostic procedure. | | | | After the PCI, the guiding catheter was introduced over the wire and | | multiple angiograms obtained via side port of the vascular sheath. The | | sheath was pulled and a 6-Chilean Angio-Seal was deployed at the right | | arteriotomy site successfully. Hemostasis was achieved in the cardiac | | catheterization lab. The patient was transferred out of the cardiac | | catheterization lab in stable condition. | | | | FINDINGS | | | | HEMODYNAMICS | | The aortic pressure was 77/48 with a mean aortic pressure of 61 mmHg. | | Left ventricular pressure was 82/30 with a left ventricular end-diastolic | | pressure of 30 mmHg. | | There was no significant transaortic pressure gradient on catheter | | pullback. | | | | CORONARY ANGIOGRAPHY | | 1. Left main was normal. | | 2. The LAD had a proximal 40% calcified stenosis. The mid segment of the | | LAD was totally occluded after the takeoff of the first diagonal | | branch, which was a very small caliber vessel and had an ostial 90% | | stenosis. The mid segment of the LAD was very faintly filling via right | | to left collaterals. | | 3. Left circumflex had mild proximal plaque and a mid 90% stenosis after | | takeoff of the first obtuse marginal branch. The first obtuse marginal | | branch had mild diffuse disease. | | 4. The right coronary artery was a small caliber vessel with diffuse | | proximal disease. The distal segment had a 95% stenosis followed by | | total occlusion. The right posterior descending artery and the right | | posterolateral artery were filling via bridging collaterals and they | | appeared to be severely and diffusely diseased. | | | | LEFT VENTRICULOGRAM | | Severe left ventricular systolic dysfunction with an ejection fraction of | | 25% to 30% with anteroapical akinesis. | | | | DESCRIPTION OF PROCEDURE | | After reviewing the angiogram and discussing the case with Dr. Ardon, | | and in view of lack of adequate target for surgical revascularization, | | especially since the anteroapical segment appears to be totally akinetic | | with a small chance of significant viability, we decided to proceed with | | percutaneous intervention and stenting of the left circumflex artery and | | since the patient is known to be noncompliant with medication intake, with | | a past history of IV drug abuse, I decided to deploy a bare-metal stent, | | especially since the lesion was of a decent caliber and was of a shorter | | length. The patient was therefore give Angiomax bolus, followed by a drip. | | An ACT of 411 seconds was achieved. The Voda left 3.5 guiding catheter | | was then advanced over the wire under fluoroscopic guidance and engaged | | selectively with the ostium of the left main coronary artery. The stenosis | | in the segment of the left circumflex was crossed easily with BMW wire. | | Subsequently a Vision 3 x 12 mm stent was positioned across the stenosis | | and deployed at 11 atmospheres. Multiple angiograms done after stent | | deployment revealed good wall apposition, no arch dissection or residual | | stenosis. At this point, all equipment was retrieved and the procedure was | | terminated. | | | | ESTIMATED BLOOD LOSS | | Less than 50 mL. | | | | IMPRESSION | | 1. Coronary artery disease as described above. | | 2. Severe left ventricular systolic dysfunction with ejection fraction 25% | | to 30% with anteroapical akinesis. | | 3. Elevated left ventricular end diastolic pressure. | | 4. Successful percutaneous coronary intervention with stenting of the left | | circumflex artery. The Vision 3 x 12 mm stent was deployed at 11 | | atmospheres with excellent angiographic results. | | | | RECOMMENDATIONS | | 1. The patient will be monitored overnight with serial cardiac enzymes and | | serial electrocardiograms. | | 2. She was given a 600 mg loading dose of Plavix in the cardiac | | catheterization laboratory via nasogastric tube and the patient will be | | maintained on dual antiplatelet therapy with aspirin and Plavix for a | | minimum of 1 month, but preferably for 1 year, in view of presenting | | with an acute coronary syndrome and deployment of a bare-metal stent. | | 3. The patient should be maintained on medical therapy with aggressive | | risk factor modification. | | 4. Further followup will be needed for management of her ischemic | | cardiomyopathy. | | | | | | Read by VIRIDIANA BRAMBILA MD 10/24/2011 09:53 P | | | | | + + CV CARDIAC PROCEDURE (10/20/2011 11:23 AM PST) + + | Specimen | + + | | + + + + + | Narrative | Performed At | + + + | [facility] Progress Note RE: Adam Martin : | | | 1970 DATE OF SERVICE: 10/18/2011 PROVIDER:JEFFERY JUAREZ Pt is | | | seen for F/U on: shortness of breath SUBJECTIVE: Still complaining | | | about pain in her stump. Was brought to the woodworking shop laborer for recommended | | | [facility]. Pt however started to scream even with mild palpation of the | | | groin to get the access and then asked to me to stop and take her back | | | to her room. The procedure was cancelled. CURRENT MEDICATIONS: | | | Scheduled Meds: ? aspirin 325 mg Oral Daily with | | | breakfast ? fentaNYL ? furosemide 40 mg Intravenous | | | BIDD ? gabapentin 800 mg Oral TID ? hydrOXYzine 50 | | | mg Oral 4x Daily ? influenza trivalent-split (latex free) | | | 2010 vaccine 0.5 mL Intramuscular Once ? insulin aspart | | | 0-6 Units Subcutaneous TID AC And ? insulin aspart | | | 0-3 Units Subcutaneous Nightly ? insulin detemir 64 | | | Units Subcutaneous QAM ? ipratropium-albuterol 3 mL | | | Nebulization Q6H ? levofloxacin 750 mg Intravenous | | | Q24H ? lidocaine ? lidocaine buffered 1% 0.5 mL | | | Subcutaneous Once ? lisinopril 5 mg Oral Daily ? | | | metoprolol 50 mg Oral BID ? omeprazole 20 mg Oral | | | QAM AC Or ? pantoprazole 40 mg Intravenous QAM AC | | | ? oxycodone 10 mg Oral Once - Now ? pravastatin 40 | | | mg Oral Nightly ? prazosin 6 mg Oral Nightly ? | | | sodium bicarbonate ? sodium chloride 3 mL Intravenous | | | Q8H ? venlafaxine 300 mg Oral Daily Continuous | | | Infusions: PRN Meds:.acetaminophen, acetaminophen, dextrose, | | | dextrose, dextrose, dextrose, glucagon, glucose, glucose, insulin | | | aspart, lorazepam, lorazepam, ondansetron, ondansetron, oxycodone, | | | polyethylene glycol, zolpidem, DISCONTD: oxycodone ALLERGIES: | | | Allergies Allergen Reactions ? Demerol (Meperidine) | | | Rash ? Latex Other (See Comments) Hives ? | | | Sulfa Antibiotics Rash ? Vicodin (Hydrocodone-Acetaminophen) | | | Rash PHYSICAL EXAM: BP 121/67 - Pulse 98 - Temp(Src) 98.1 ?F | | | (36.7 ?C) (Oral) - Resp 15 - Ht 1.778 m (5' 10") - Wt 120.7 kg (266 | | | lb 1.5 oz) - BMI 38.18 kg/m2 - SpO2 94% - LMP 10/04/2011 - | | | ? No Intake/Output Summary (Last 24 hours) at 10/20/11 | | | 1112 Last data filed at 10/20/11 0500 Gross per 24 hour Intake | | | 2050 ml Output 4200 ml Net -2150 ml General Appearance: | | | Alert, oriented, anxious, moderate distress, appears stated age | | | HEENT: No xanthelasmas. Extraocular movements were intact. No | | | jaundice. NECK: no JVD, lymphadenopathy. Trachea is at midline. | | | Thyroid is not palpable. CARDIAC: There is normal S1 and S2. No | | | added sounds, murmurs, gallop, or rub. CHEST: Normal bilateral | | | symmetrical chest excursion. Good bilateral air entry with no | | | crackles or wheezing. No evidence of dullness. ABDOMEN: obese, soft | | | and lax. No tenderness. No palpable organs. Active bowel sounds. | | | EXTREMITIES:L BKA. NEURO: Alert and oriented times three with no | | | focal deficit. Cranial nerves are grossly normal. SKIN: moderate | | | fungal infection in the right groin. Lab Review Lab Results | | | Component Value Date NA 136 10/20/2011 K 3.7 | | | 10/20/2011 CL 100 10/20/2011 CO2 27 10/20/2011 | | | BUN 12 10/20/2011 CREATININE 0.7 10/20/2011 Lab | | | Results Component Value Date CKTOTAL 57 10/18/2011 | | | CKMB <0.5* 10/20/2011 CKMBINDEX UNABLE TO CALCULATE | | | 10/20/2011 TROPONINI 0.53* 10/20/2011 Lab Results Component | | | Value Date WBC 8.6 10/20/2011 HGB 10.3* | | | 10/20/2011 HCT 29.9* 10/20/2011 MCV 79.4* 10/20/2011 | | | PLT 226 10/20/2011 No components found with this basename: | | | AST, ALT, ALBUMIN, ALKALINE PHOSPHATASE Imaging Chest X-Ray: | | | improved pulmonary congestion. Cath: cancelled based on pt request. | | | ASSESSMENT: 1. Severe shortness of breath/flash pulmonary edema, | | | improved. ? CAD. 2. Diabetes mellitus. 3. Hypertension. 4. | | | Hyperlipidemia. 5. Obesity. 6. Peripheral vascular disease status | | | post previous amputation of the left leg below the knee and now | | | recent revision. 7. Normal left ventricular systolic function based | | | on echocardiogram. 8. History of amphetamine use, none recently. | | | PLAN: PLAN AND RECOMMENDATIONS The patient presented with pulmonary | | | edema with normal left ventricular systolic function. With her | | | multiple risk factors for CAD, the presence of possible coronary | | | artery disease is expected. Coronary angiography was recommended, | | | however, the patient became belligerent and she asked to cancel the | | | procedure. This has happened despite our efforts to calm her down. | | | With that, coronary angiography was canceled and she has been | | | directed back to her room. I recommend continuation of beta teena | | | therapy as well as aspirin. I will sign off on the case and if further | | | cardiac input is needed, a second opinion is to be asked for. | | | | | + + + + + | Procedure Note | + + | Marcelo Matias Conversion - 05/12/2019 3:04 AM Merged with [facility] | | Service: Cardiology/[facility] | | Progress Note | | RE: Adam Martin | | : 1970 | | DATE OF SERVICE: 10/18/2011 | | PROVIDER:JEFFERY JUAREZ | | Pt is seen for F/U on: shortness of breath | | SUBJECTIVE: | | Still complaining about pain in her stump. Was brought to the woodworking shop laborer for | | recommended [facility]. Pt however started to scream even with mild palpation of | | the groin to get the access and then asked to me to stop and take her back | | to her room. The procedure was cancelled. | | CURRENT MEDICATIONS: | | Scheduled Meds: | | ? aspirin 325 mg Oral Daily with breakfast | | ? fentaNYL | | ? furosemide 40 mg Intravenous BIDD | | ? gabapentin 800 mg Oral TID | | ? hydrOXYzine 50 mg Oral 4x Daily | | ? influenza trivalent-split (latex free) 2011 vaccine 0.5 mL | | Intramuscular Once | | ? insulin aspart 0-6 Units Subcutaneous TID AC | | And | | ? insulin aspart 0-3 Units Subcutaneous Nightly | | ? insulin detemir 64 Units Subcutaneous QAM | | ? ipratropium-albuterol 3 mL Nebulization Q6H | | ? levofloxacin 750 mg Intravenous Q24H | | ? lidocaine | | ? lidocaine buffered 1% 0.5 mL Subcutaneous Once | | ? lisinopril 5 mg Oral Daily | | ? metoprolol 50 mg Oral BID | | ? omeprazole 20 mg Oral QAM AC | | Or | | ? pantoprazole 40 mg Intravenous QAM AC | | ? oxycodone 10 mg Oral Once - Now | | ? pravastatin 40 mg Oral Nightly | | ? prazosin 6 mg Oral Nightly | | ? sodium bicarbonate | | ? sodium chloride 3 mL Intravenous Q8H | | ? venlafaxine 300 mg Oral Daily | | Continuous Infusions: | | PRN Meds:.acetaminophen, acetaminophen, dextrose, dextrose, dextrose, | | dextrose, glucagon, glucose, glucose, insulin aspart, lorazepam, lorazepam, | | ondansetron, ondansetron, oxycodone, polyethylene glycol, zolpidem, | | DISCONTD: oxycodone | | ALLERGIES: | | Allergies | | Allergen Reactions | | ? Demerol (Meperidine) Rash | | ? Latex Other (See Comments) | | Hives | | ? Sulfa Antibiotics Rash | | ? Vicodin (Hydrocodone-Acetaminophen) Rash | | PHYSICAL EXAM: | | BP 121/67 - Pulse 98 - Temp(Src) 98.1 ?F (36.7 ?C) (Oral) - Resp 15 | | - Ht 1.778 m (5' 10") - Wt 120.7 kg (266 lb 1.5 oz) - BMI 38.18 kg/m2 | | - SpO2 94% - LMP 10/04/2011 - ? No | | Intake/Output Summary (Last 24 hours) at 10/20/11 1112 | | Last data filed at 10/20/11 0500 | | Gross per 24 hour | | Intake 2050 ml | | Output 4200 ml | | Net -2150 ml | | | | General Appearance: Alert, oriented, anxious, moderate distress, | | appears stated age | | HEENT: No xanthelasmas. Extraocular movements were intact. No jaundice. | | NECK: no JVD, lymphadenopathy. Trachea is at midline. Thyroid is not | | palpable. | | CARDIAC: There is normal S1 and S2. No added sounds, murmurs, gallop, or | | rub. | | CHEST: Normal bilateral symmetrical chest excursion. Good bilateral air | | entry with no crackles or wheezing. No evidence of dullness. | | ABDOMEN: obese, soft and lax. No tenderness. No palpable organs. Active | | bowel sounds. | | EXTREMITIES:L BKA. | | NEURO: Alert and oriented times three with no focal deficit. Cranial nerves | | are grossly normal. | | SKIN: moderate fungal infection in the right groin. | | Lab Review | | Lab Results | | Component Value Date | | NA 136 10/20/2011 | | K 3.7 10/20/2011 | | CL 100 10/20/2011 | | CO2 27 10/20/2011 | | BUN 12 10/20/2011 | | CREATININE 0.7 10/20/2011 | | | | Lab Results | | Component Value Date | | CKTOTAL 57 10/18/2011 | | CKMB <0.5* 10/20/2011 | | CKMBINDEX UNABLE TO CALCULATE 10/20/2011 | | TROPONINI 0.53* 10/20/2011 | | | | Lab Results | | Component Value Date | | WBC 8.6 10/20/2011 | | HGB 10.3* 10/20/2011 | | HCT 29.9* 10/20/2011 | | MCV 79.4* 10/20/2011 | | PLT 226 10/20/2011 | | | | No components found with this basename: AST, ALT, ALBUMIN, ALKALINE | | PHOSPHATASE | | Imaging | | Chest X-Ray: improved pulmonary congestion. | | Cath: cancelled based on pt request. | | ASSESSMENT: | | 1. Severe shortness of breath/flash pulmonary edema, improved. ? CAD. | | 2. Diabetes mellitus. | | 3. Hypertension. | | 4. Hyperlipidemia. | | 5. Obesity. | | 6. Peripheral vascular disease status post previous amputation of the | | left leg below the knee and now recent revision. | | 7. Normal left ventricular systolic function based on echocardiogram. | | 8. History of amphetamine use, none recently. | | PLAN: | | PLAN AND RECOMMENDATIONS | | The patient presented with pulmonary edema with normal left ventricular | | systolic function. With her multiple risk factors for CAD, the presence | | of possible coronary artery disease is expected. Coronary angiography | | was recommended, however, the patient became belligerent and she asked | | to cancel the procedure. This has happened despite our efforts to calm | | her down. With that, coronary angiography was canceled and she has been | | directed back to her room. I recommend continuation of beta teena | | therapy as well as aspirin. I will sign off on the case and if further | | cardiac input is needed, a second opinion is to be asked for. | | | | | + + XR Chest 1 Vw (10/20/2011 6:38 AM PST) + + | Specimen | + + | | + + + + + | Narrative | Performed At | + + + | [facility] XR CHEST 1 VIEW 10/20/2011 6:18 AM | | | History: 41 years. Female. Follow-up for acute congestive heart | | | failure. Technique: AP portable upright technique was performed at | | | 0547 hours. Findings: Prior moderate interstitial alveolar | | | infiltrate noted on 10/18/11 as decreased, but is still present. No | | | lung consolidation or pleural effusion visualized. The inspiratory | | | effort is moderate. Borderline to mild cardiomegaly is noted. No | | | central venous catheter visualized. Conclusions: 1. Improving, | | | but mild residual interstitial pulmonary edema. 2. Borderline | | | cardiomegaly. Electronically signed by Waldemar Zimmer MD on | | | 10/20/2011 9:20 AM | | + + + + + | Procedure Note | + + | Florencio, Rad Conversion - 05/12/2019 3:04 AM PDT [facility] | | XR CHEST 1 VIEW | | 10/20/2011 6:18 AM | | | | History: 41 years. Female. Follow-up for acute congestive heart failure. | | | | Technique: AP portable upright technique was performed at 0547 hours. | | | | Findings: Prior moderate interstitial alveolar infiltrate noted on | | 10/18/11 as decreased, but is still present. No lung consolidation or | | pleural effusion visualized. The inspiratory effort is moderate. Borderline | | to mild cardiomegaly is noted. | | | | No central venous catheter visualized. | | | | Conclusions: | | 1. Improving, but mild residual interstitial pulmonary edema. | | 2. Borderline cardiomegaly. | | | | | + + Gram Stain, reflex Sputum Culture (10/19/2011 11:31 AM PST) + + | Specimen | + + | Body fluid sample | | (specimen) | + + + + + | Narrative | Performed At | + + + | Specimen Description SPUTUM | EXTERNAL LAB | | Testing performed at [facility];[id number] | | [facility];[place] [address] GRAM STAIN | | | GREATER THAN 10 WBCS/LPF | | | LESS THAN 10 SEC/LPF | | | NO ORGANISMS SEEN | | | Testing performed at [facility], [address], | | | [place] [address] CULTURE | | | 2+ KRISTINA ALBICANSAbnormal | | | 1+ NORMAL UPPER RESPIRATORY RADHA | | | Testing performed at [facility], [address] | | [facility], [place] [address] REPORT STATUS | | | 10/21/2011 FINAL | | + + + + +---------+ + + | Performing | Address | City/State/Zipcode | Phone Number | | Organization | | | | + +---------+ + + | EXTERNAL LAB | | | | + +---------+ + + ECHO Complete (10/19/2011 9:50 AM PST) + + | Specimen | + + | | + + + + + | Narrative | Performed At | + + + | Patient Name: STEVE MARTINCEY Date of : | | | 1970 Performing Physician: | | | Luis Manuel Santana MD | | | | | | INDICATIONS CHF; Hx of insulin DM. CONCLUSIONS | | | 1. Sinus rhythm. 2. Resting tachycardia (HR>100bpm). 3. | | | This was a technically adequate study. 4. Suboptimal image quality - | | | poor subcostal views. 5. Overall left ventricular systolic function | | | is normal with, an EF between 60 - 65 %. 6. Left Ventricle ejection | | | fraction by m-mode measures 53%. 7. The left ventricle cavity size is | | | normal. 8. There is mild concentric left ventricular hypertrophy. | | | 9. The right ventricle is normal in size. 10. The left atrium is | | | mildly dilated. 11. The right atrial size is normal. 12. The aortic | | | valve is trileaflet and appears structurally normal. 13. Mild mitral | | | regurgitation is present. 14. Trace tricuspid regurgitation present. | | | 15. There is a trivial pericardial effusion present. 16. The IVC was | | | not well visualized. FINDINGS -------- ECG rhythm: Sinus | | | rhythm. ECG rhythm: Resting tachycardia (HR>100bpm). Study: A | | | 2-dimensional transthoracic echocardiogram with m-mode, spectral and | | | color flow Doppler was perfomed. Study: This was a technically | | | adequate study. Study: This was a technically difficult study with | | | suboptimal apical views. Study: Suboptimal image quality - poor | | | subcostal views. Left Ventricle: Overall left ventricular systolic | | | function is normal with, an EF between 60 - 65 %. Left Ventricle: | | | Left Ventricle ejection fraction by m-mode measures 53%. Left | | | Ventricle: The left ventricle cavity size is normal. Left Ventricle: | | | There is mild concentric left ventricular hypertrophy. Left | | | Ventricle: The diastolic filling pattern indicates impaired relaxation | | | consistent with mild dysfunction (Grade I).POORLY SEEN ENDOCARDIUM IN | | | APICAL WINDOW. Right Ventricle: The right ventricle is normal in | | | size. Right Ventricle: The right ventricular systolic function is | | | normal. Left Atrium: The left atrium is mildly dilated Left Atrium: | | | , and the LA measures 4.4cm. Right Atrium: The right atrial size is | | | normal Right Atrium: , and the RA measures 3.8cm. Aortic Valve: The | | | aortic valve is trileaflet and appears structurally normal. Aortic | | | Valve: There is no evidence of aortic regurgitation. Mitral Valve: | | | The mitral valve is normal. Mitral Valve: Mild mitral regurgitation | | | is present. Tricuspid Valve: The tricuspid valve appears structurally | | | normal. Tricuspid Valve: Trace tricuspid regurgitation present. | | | Pulmonic Valve: The pulmonic valve was not well visualized. Pulmonic | | | Valve: Trace/mild (physiologic) pulmonic regurgitation. | | | Pericardium: There is a trivial pericardial effusion present. | | | Pericardium: No pleural effusion seen. IVC/Hepatic Veins: The IVC was | | | not well visualized. Mass: No mass visualized Thrombus: No clot | | | visualized Thrombus: No vegetation visualized. MEASUREMENTS | | | LA Major: 4.52 cm LVOT Diam: 2.08 cm RA Major: | | | 3.75 cm RVIDd: 2.89 cm LVEF MOD A2C: 58.72 % SV MOD A2C: | | | 73.49 ml LVEF MOD A4C: 52.57 % SV MOD A4C: 88.08 ml EF | | | Biplane: 56.95 % LVEDV MOD BP: 150.84 ml LVESV MOD BP: | | | 64.93 ml LVEDV MOD A2C: 125.15 ml LVLd A2C: 8.52 cm LVEDV MOD | | | A4C: 167.53 ml LVLd A4C: 9.29 cm LVESV MOD A2C: 51.65 ml | | | LVLs A2C: 7.03 cm LVESV MOD A4C: 79.45 ml LVLs A4C: 7.33 cm | | | CO Biplane: 9.68 l/min HR: 112.70 BPM R-R: 532.34 ms | | | LAESV(A-L): 51.24 ml LAESV Index (A-L): 21.80 ml/m2 LAAs A2C: | | | 15.57 cm2 LAESV A-L A2C: 46.26 ml LALs A2C: 4.45 cm LAAs | | | A4C: 17.25 cm2 LAESV A-L A4C: 46.75 ml LALs A4C: 5.40 cm | | | Ao Diam: 2.89 cm AV Cusp: 1.58 cm LA Diam: 4.36 cm LA/Ao: | | | 1.50 %FS: 27.65 % EDV(Teich): 137.31 ml EF(Teich): | | | 53.21 % ESV(Teich): 64.23 ml IVSd: 0.99 cm IVSs: 1.33 cm | | | LVIDd: 5.33 cm LVIDs: 3.85 cm LVPWd: 1.07 cm LVPWs: | | | 1.41 cm SV(Teich): 73.08 ml D-E Excursion: 1.64 cm E-F [place]: | | | 0.06 m/s EPSS: 1.30 cm HR: 108.2 BPM AV maxP.16 | | | mmHg AV meanP.50 mmHg AV Vmax: 1.33 m/s AV Vmean: 1.03 | | | m/s AV VTI: 22.09 cm ALMITA Vmax: 1.80 cm2 ALMITA (VTI): 1.85 | | | cm2 LVCI Dopp: 1.97 l/minm2 LVCO Dopp: 4.64 l/min HR: | | | 113.49 BPM LVOT maxP.01 mmHg LVOT meanP.25 mmHg LVSI | | | Dopp: 17.42 ml/m2 LVSV Dopp: 40.94 ml LVOT Vmax: 0.71 m/s | | | LVOT Vmean: 0.54 m/s LVOT VTI: 12.01 cm MCO: 325.32 ms MV | | | A Navid: 1.40 m/s MV DecT: 192.12 ms MV E Navid: 1.18 m/s MV | | | E/A Ratio: 0.84 MV PHT: 38.74 ms MVA By PHT: 5.67 cm2 MV A | | | Dur: 73.93 ms Septal e': 0.05 m/s Septal E/e': 23.37 | | | Lateral e': 0.08 m/s Lateral E/e': 14.22 P Vein A: 0.38 m/s | | | P Vein A Dur: 73.93 ms P Vein D: 0.53 m/s P Vein S/D Ratio: | | | 1.31 P Vein S: 0.69 m/s HR: 106.07 BPM PV maxP.47 | | | mmHg PV meanP.52 mmHg PV Vmax: 1.27 m/s PV Vmean: 0.90 | | | m/s PV VTI: 22.34 cm TR maxP.38 mmHg TR Vmax: 1.04 | | | m/s TV A Navid: 0.79 m/s TV Dec [place]: 3.98 m/s2 TV Dec Time: | | | 144.60 ms TV E Navid: 0.57 m/s TV E/A Ratio: 0.72 | | | Compensation Director: KAHLIL Authenticated by: Luis Manuel Santana MD Report | | | Date/Time: 10-19-2011 19:18:07 | | + + + + + | Procedure Note | + + | Florencio, Marcelo Conversion - 05/12/2019 3:04 AM PDT Patient Name: SOWMYA | | [place] of : 1970 Physician: Luis Manuel | | Max | | INDICATIONS C | | HF; Hx of insulin DM. CONCLUSIONS 1. Sinus rhythm.2. Resting tachycardia | | (HR>100bpm).3. This was a technically adequate study.4. Suboptimal image quality - poor | | subcostal views.5. Overall left ventricular systolic function is normal with, an EF | | between 60 - 65 %.6. Left Ventricle ejection fraction by m-mode measures 53%.7. The left | | ventricle cavity size is normal.8. There is mild concentric left ventricular | | hypertrophy.9. The right ventricle is normal in size.10. The left atrium is mildly | | dilated.11. The right atrial size is normal.12. The aortic valve is trileaflet and | | appears structurally normal.13. Mild mitral regurgitation is present.14. Trace tricuspid | | regurgitation present.15. There is a trivial pericardial effusion present.16. The IVC | | was not well visualized. FINDINGS--------ECG rhythm: Sinus rhythm.ECG rhythm: Resting | | tachycardia (HR>100bpm).Study: A 2-dimensional transthoracic echocardiogram with m-mode, | | spectral and color flow Doppler was perfomed.Study: This was a technically adequate | | study.Study: This was a technically difficult study with suboptimal apical views.Study: | | Suboptimal image quality - poor subcostal views.Left Ventricle: Overall left ventricular | | systolic function is normal with, an EF between 60 - 65 %.Left Ventricle: Left | | Ventricle ejection fraction by m-mode measures 53%.Left Ventricle: The left ventricle | | cavity size is normal.Left Ventricle: There is mild concentric left ventricular | | hypertrophy.Left Ventricle: The diastolic filling pattern indicates impaired relaxation | | consistent with mild dysfunction (Grade I).POORLY SEEN ENDOCARDIUM IN APICAL | | WINDOW.Right Ventricle: The right ventricle is normal in size.Right Ventricle: The right | | ventricular systolic function is normal.Left Atrium: The left atrium is mildly | | dilatedLeft Atrium: , and the LA measures 4.4cm.Right Atrium: The right atrial size is | | normalRight Atrium: , and the RA measures 3.8cm.Aortic Valve: The aortic valve is | | trileaflet and appears structurally normal.Aortic Valve: There is no evidence of aortic | | regurgitation.Mitral Valve: The mitral valve is normal.Mitral Valve: Mild mitral | | regurgitation is present.Tricuspid Valve: The tricuspid valve appears structurally | | normal.Tricuspid Valve: Trace tricuspid regurgitation present.Pulmonic Valve: The | | pulmonic valve was not well visualized.Pulmonic Valve: Trace/mild (physiologic) | | pulmonic regurgitation.Pericardium: There is a trivial pericardial effusion | | present.Pericardium: No pleural effusion seen.IVC/Hepatic Veins: The IVC was not well | | visualized.Mass: No mass visualizedThrombus: No clot visualizedThrombus: No vegetation | | visualized. MEASUREMENTS LA Major: 4.52 cmLVOT Diam: 2.08 cmRA Major: | | 3.75 cmRVIDd: 2.89 cmLVEF MOD A2C: 58.72 %SV MOD A2C: 73.49 mlLVEF MOD A4C: | | 52.57 %SV MOD A4C: 88.08 mlEF Biplane: 56.95 %LVEDV MOD BP: 150.84 mlLVESV MOD BP: | | 64.93 mlLVEDV MOD A2C: 125.15 mlLVLd A2C: 8.52 cmLVEDV MOD A4C: 167.53 mlLVLd | | A4C: 9.29 cmLVESV MOD A2C: 51.65 mlLVLs A2C: 7.03 cmLVESV MOD A4C: 79.45 mlLVLs | | A4C: 7.33 cmCO Biplane: 9.68 l/minHR: 112.70 BPMR-R: 532.34 msLAESV(A-L): | | 51.24 mlLAESV Index (A-L): 21.80 ml/m2LAAs A2C: 15.57 [id number] A-L A2C: 46.26 | | mlLALs A2C: 4.45 cmLAAs A4C: 17.25 [id number] A-L A4C: 46.75 mlLALs A4C: 5.40 cmAo | | Diam: 2.89 cmAV Cusp: 1.58 cmLA Diam: 4.36 cmLA/Ao: 1.50%FS: 27.65 | | %EDV(Teich): 137.31 mlEF(Teich): 53.21 %ESV(Teich): 64.23 mlIVSd: 0.99 cmIVSs: | | 1.33 cmLVIDd: 5.33 cmLVIDs: 3.85 cmLVPWd: 1.07 cmLVPWs: 1.41 cmSV(Teich): | | 73.08 mlD-E Excursion: 1.64 cmE-F [place]: 0.06 m/sEPSS: 1.30 cmHR: 108.2 BPMAV | | maxP.16 mmHgAV meanP.50 mmHgAV Vmax: 1.33 m/Jordan Vmean: 1.03 m/Jordan VTI: | | 22.09 cmAVA Vmax: 1.80 cm2AVA (VTI): 1.85 [id number] Dopp: 1.97 l/[id number] Dopp: | | 4.64 l/minHR: 113.49 BPMLVOT maxP.01 mmHgLVOT meanP.25 mmHgLVSI Dopp: | | 17.42 ml/m2LVSV Dopp: 40.94 mlLVOT Vmax: 0.71 m/sLVOT Vmean: 0.54 m/sLVOT VTI: | | 12.01 cmMCO: 325.32 msMV A Navid: 1.40 m/sMV DecT: 192.12 msMV E Navid: 1.18 m/sMV | | E/A Ratio: 0.84MV PHT: 38.74 msMVA By PHT: 5.67 cm2MV A Dur: 73.93 msSeptal e': | | 0.05 m/sSeptal E/e': 23.37Lateral e': 0.08 m/sLateral E/e': 14.22P Vein A: | | 0.38 m/sP Vein A Dur: 73.93 msP Vein D: 0.53 m/sP Vein S/D Ratio: 1.31P Vein S: | | 0.69 m/sHR: 106.07 BPMPV maxP.47 mmHgPV meanP.52 mmHgPV Vmax: 1.27 m/sPV | | Vmean: 0.90 m/sPV VTI: 22.34 cmTR maxP.38 mmHgTR Vmax: 1.04 m/sTV A Navid: | | 0.79 m/sTV Dec [place]: 3.98 m/s2TV Dec Time: 144.60 msTV E Navid: 0.57 m/sTV E/A | | Ratio: 0.72 Compensation Director: MIKAuthenticated by: Luis Manuel Nam Date/Time: | | 10-19-2011 19:18:07 | |Mass: No mass visualized | |Thrombus: No clot visualized | |Thrombus: No vegetation visualized. | | | |MEASUREMENTS | | | |LA Major: 4.52 cm | |LVOT Diam: 2.08 cm | |RA Major: 3.75 cm | |RVIDd: 2.89 cm | |LVEF MOD A2C: 58.72 % | |SV MOD A2C: 73.49 ml | |LVEF MOD A4C: 52.57 % | |SV MOD A4C: 88.08 ml | |EF Biplane: 56.95 % | |LVEDV MOD BP: 150.84 ml | |LVESV MOD BP: 64.93 ml | |LVEDV MOD A2C: 125.15 ml | |LVLd A2C: 8.52 cm | |LVEDV MOD A4C: 167.53 ml | |LVLd A4C: 9.29 cm | |LVESV MOD A2C: 51.65 ml | |LVLs A2C: 7.03 cm | |LVESV MOD A4C: 79.45 ml | |LVLs A4C: 7.33 cm | |CO Biplane: 9.68 l/min | |HR: 112.70 BPM | |R-R: 532.34 ms | |LAESV(A-L): 51.24 ml | |LAESV Index (A-L): 21.80 ml/m2 | |LAAs A2C: 15.57 cm2 | |LAESV A-L A2C: 46.26 ml | |LALs A2C: 4.45 cm | |LAAs A4C: 17.25 cm2 | |LAESV A-L A4C: 46.75 ml | |LALs A4C: 5.40 cm | |Ao Diam: 2.89 cm | |AV Cusp: 1.58 cm | |LA Diam: 4.36 cm | |LA/Ao: 1.50 | |%FS: 27.65 % | |EDV(Teich): 137.31 ml | |EF(Teich): 53.21 % | |ESV(Teich): 64.23 ml | |IVSd: 0.99 cm | |IVSs: 1.33 cm | |LVIDd: 5.33 cm | |LVIDs: 3.85 cm | |LVPWd: 1.07 cm | |LVPWs: 1.41 cm | |SV(Teich): 73.08 ml | |D-E Excursion: 1.64 cm | |E-F [place]: 0.06 m/s | |EPSS: 1.30 cm | |HR: 108.2 BPM | |AV maxP.16 mmHg | |AV meanP.50 mmHg | |AV Vmax: 1.33 m/s | |AV Vmean: 1.03 m/s | |AV VTI: 22.09 cm | |ALMITA Vmax: 1.80 cm2 | |ALMITA (VTI): 1.85 cm2 | |LVCI Dopp: 1.97 l/minm2 | |LVCO Dopp: 4.64 l/min | |HR: 113.49 BPM | |LVOT maxP.01 mmHg | |LVOT meanP.25 mmHg | |LVSI Dopp: 17.42 ml/m2 | |LVSV Dopp: 40.94 ml | |LVOT Vmax: 0.71 m/s | |LVOT Vmean: 0.54 m/s | |LVOT VTI: 12.01 cm | |MCO: 325.32 ms | |MV A Navid: 1.40 m/s | |MV DecT: 192.12 ms | |MV E Navid: 1.18 m/s | |MV E/A Ratio: 0.84 | |MV PHT: 38.74 ms | |MVA By PHT: 5.67 cm2 | |MV A Dur: 73.93 ms | |Septal e': 0.05 m/s | |Septal E/e': 23.37 | |Lateral e': 0.08 m/s | |Lateral E/e': 14.22 | |P Vein A: 0.38 m/s | |P Vein A Dur: 73.93 ms | |P Vein D: 0.53 m/s | |P Vein S/D Ratio: 1.31 | |P Vein S: 0.69 m/s | |HR: 106.07 BPM | |PV maxP.47 mmHg | |PV meanP.52 mmHg | |PV Vmax: 1.27 m/s | |PV Vmean: 0.90 m/s | |PV VTI: 22.34 cm | |TR maxP.38 mmHg | |TR Vmax: 1.04 m/s | |TV A Navid: 0.79 m/s | |TV Dec [place]: 3.98 m/s2 | |TV Dec Time: 144.60 ms | |TV E Navid: 0.57 m/s | |TV E/A Ratio: 0.72 | | | |Compensation Director: KAHLIL | |Authenticated by: Luis Manuel Santana MD | |Report Date/Time: 10-19-2011 19:18:07 | + + XR Chest 2 Vws (10/18/2011 5:12 PM PST) + + | Specimen | + + | | + + + + + | Narrative | Performed At | + + + | HISTORY: Shortness of breath. SCANNING PROTOCOL: Two views of | | | the chest. FINDINGS: No comparison. There are moderate diffuse | | | bilateral interstitial infiltrates or edema. The heart is mildly | | | enlarged. Small bilateral pleural effusions are seen on the lateral | | | view. Thickening of the fissures is also noted on the lateral | | | view. Overall findings could indicate congestive heart failure. | | | IMPRESSION: 1. Findings suggest congestive heart failure with | | | pulmonary edema and small bilateral pleural effusions. | | | | | + + + + + | Procedure Note | + + | Florencio, Rad Conversion - 05/12/2019 3:04 AM PDT HISTORY: | | Shortness of breath. | | | | SCANNING PROTOCOL: | | Two views of the chest. | | | | FINDINGS: | | No comparison. There are moderate diffuse bilateral interstitial | | infiltrates or edema. The heart is mildly enlarged. Small bilateral | | pleural effusions are seen on the lateral view. Thickening of the fissures | | is also noted on the lateral view. Overall findings could indicate | | congestive heart failure. | | | | IMPRESSION: | | 1. Findings suggest congestive heart failure with pulmonary edema and | | small bilateral pleural effusions. | | | | | + + Culture, Urine (10/18/2011 1:11 AM PST) + + | Specimen | + + | Urine specimen | | (specimen) | + + + + + | Narrative | Performed At | + + + | Specimen Description CLEAN CATCH URINE | EXTERNAL LAB | | Testing performed at | | | [facility];[address];[place] [address] CULTURE | | | 50,000 TO 100,000 CFU/ML KRISTINA GLABRATAAbnormal | | | Testing performed | | | at [facility], [address] [place] [address] REPORT STATUS | | | 10/23/2011 FINAL | | + + + + +---------+ + + | Performing | Address | City/State/Zipcode | Phone Number | | Organization | | | | + +---------+ + + | EXTERNAL LAB | | | | + +---------+ + + CT Chest w Contrast (10/17/2011 7:28 AM PST) + + | Specimen | + + | | + + + + + | Narrative | Performed At | + + + | This is a non-reportable procedure without a radiologist report and | | | is used for image storage only | | + + + + + | Procedure Note | + + | Marcelo Matias - 05/12/2019 3:04 AM PDT This is a non-reportable procedure | | without a radiologist report and isused for image storage only | + + documented in this encounter Visit Diagnoses + + | Diagnosis | + + | Dyspnea Other dyspnea and respiratory abnormality | + + | CHF (congestive heart failure) (HCC) Congestive heart failure, unspecified | + + | Pneumonia Pneumonia, organism unspecified | + + | NSTEMI (non-ST elevated myocardial infarction) (HCC) Acute myocardial infarction, | | subendocardial infarction, episode of care unspecified | + + | Microcytic anemia Iron deficiency anemia, unspecified | + + | Hyperglycemia Other abnormal glucose | + + | Pain of left leg Pain in limb | + + documented in this encounter
--- OUTSIDE RECORDS SUMMARY | ~2019-10-02 | XMS | Encounter Summary ---
Demographics + + + | Address | [address] | | | [place] [address] | + + + | Home Phone [...] | Organization | [facility] | | | and [place] | + + + | Address | Unknown | + + + | Phone | Unavailable | + + + Support + + + + + | Name | Relationship | Address | Phone | + + + + + | Kyaw Woodson | ECON | [place], [place] | | + + + + + | Barbara Cabrera | ECON | Unknown | | + + + + + | Dimple Hathaway | ECON | Unknown | | + + + + + Care Team Providers + +------+ + | Care Warrant Clerk Name | Role | Phone | + +------+ + | Daniel Land NP | PCP | | + +------+ + Encounter Details +--------+ + + + + | Date | Type | Department | Care Team | Description | +--------+ + + + + | 05/27/ | Orders Only | [facility] | Conversion | | | 2016 | | NEPRHOLOGY [place] | Transaction, | | | | | [address] | Provider Unknown | | | | | [address] [place] | [phone] | | | | | [address] | | | | | | [phone] | | | +--------+ + + + [...] | | | | | [facility] | | | | | | [place] | | | | | | [address] | | | | | | | [...] | | | | | [place] [address] | | | | | | [phone] | | | | | | | | +--------+ + + + + | 11/25/ | Office | Nephrology | Kei Arthur MD | | | 2019 | Visit | | [address] [facility] | | | | | | [address] | | | | | | [address] | | | | | | | [...] | | BINDING CAPACITY | e | 1:45 PM | | procedure are in the | | | | PDT | | results section. | + +--------+ + + + | VITAMIN D, | Routin | 05/27/2016 | | Results for this | | DEFICIENCY SCREEN | e | 1:45 PM | | procedure are in the | | (25-HYDROXY) | | PDT | | results section. | + +--------+ + + + | URINALYSIS, | Routin | 05/27/2016 | | Results for this | | MICROSCOPIC ONLY | e | 1:45 PM | | procedure are in the | | | | PDT | | results section. | + +--------+ + + + | HEMOGLOBIN AND | Routin | 05/27/2016 | | Results for this | | HEMATOCRIT | e | 1:45 PM | | procedure are in the | | | | PDT | | results section. | + +--------+ + + + | PROTEIN/CREATININE | Routin | 05/27/2016 | | Results for this | | RATIO, URINE | e | 1:45 PM | | procedure are in the | | | | PDT | | results section. | + +--------+ + + + | URIC ACID | Routin | 05/27/2016 | | Results for this | | | e | 1:45 PM | | procedure are in the | | | | PDT | | results section. | + +--------+ + + + | TRANSFERRIN | Routin | 05/27/2016 | | Results for this | | | e | 1:45 PM | | procedure are in the | | | | PDT | | results section. | + +--------+ + + + | PARATHYROID HORMONE, | Routin | 05/27/2016 | | Results for this | | INTACT | e | 1:45 PM | | procedure are in the | | | | PDT | | results section. | + +--------+ + + + | MAGNESIUM | Routin | 05/27/2016 | | Results for this | | | e | 1:45 PM | | procedure are in the | | | | PDT | | results section. | + +--------+ + + + | FERRITIN | Routin | 05/27/2016 | | Results for this | | | e | 1:45 PM | | procedure are in the | | | | PDT | | results section. | + +--------+ + + + | RENAL FUNCTION PANEL | Routin | 05/27/2016 | | Results for this | | | e | 1:45 PM | | procedure are in the | | | | PDT | | results section. | + +--------+ + + + documented in this encounter Results Hemoglobin and Hematocrit (05/27/2016 1:45 PM PDT) + + + + + + | Component | Value | Ref Range | Performed | Pathologist | | | | | At | Signature | + + + + + + | Hgb | 9.1 (A) | 12.0 - 16.0 | EXTERNAL [...] + + Iron and Iron Binding Capacity (05/27/2016 1:45 PM PDT) + +---------+ + + + | Component | Value | Ref Range | Performed | Pathologist | | | | | At | Signature | + +---------+ + + + | Iron | 51.64 | 37 - 160 | EXTERNAL | [...] +---------+ + + Protein/Creatinine Ratio, Urine (05/27/2016 1:45 PM PDT) + + + + + [...] + Vitamin D, Deficiency Screen (25-Hydroxy) (05/27/2016 1:45 PM PDT) + +-------+ + + + [...] +---------+ + + Urinalysis, Microscopic Only (05/27/2016 1:45 PM PDT) + + + + + [...] - 1.030 | EXTERNAL | | | [place] | | | LAB | | + [...] + +---------+ + + Uric Acid (05/27/2016 1:45 PM PDT) + + + + + [...] | + +---------+ + + Transferrin (05/27/2016 1:45 PM PDT) + + + + + [...] + +---------+ + + Parathyroid Hormone, Intact (05/27/2016 1:45 PM PDT) + + + + + + | Component | Value | Ref Range | Performed | Pathologist | | | | | At | Signature | + + + + + + | PTH INTACT | 236.9 (A) | 15 - 65 pg/mL | [...] | + +---------+ + + Magnesium (05/27/2016 1:45 PM PDT) + +-------+ + + + [...] | + +---------+ + + Ferritin (05/27/2016 1:45 PM PDT) + + + + + [...] +---------+ + + Renal Function Panel (05/27/2016 1:45 PM PDT) + + + + + [...] + | Creatinine | 3.02 (A) | 0.60 - 1.35 | EXTERNAL [...] | | | LAB | | | [facility] | | | | | + + [...]
--- OUTSIDE RECORDS SUMMARY | ~2019-10-02 | XMS | Encounter Summary ---
Demographics + + + | Address | [address] | | | [place] [address] | + + + | Home Phone [...] Organization | [facility] | | | and [place] | + + + | Address | Unknown | + + + | Phone | Unavailable | + + + Support + + + + + | Name | Relationship | Address | Phone | + + + + + | Kyaw Woodson | ECON | [place], [place] | | + + + + + | Barbara Cabrera | ECON | Unknown | | + + + + + | Dimple Hathaway | ECON | Unknown | | + + + + + Care Team Providers + +------+ + | Care Grinder Carbon Plant Name | Role | Phone | + +------+ + | No, Physician | PCP | Unavailable | + +------+ + Encounter Details +--------+ + + + + | Date | Type | Department | Care Team | Description | +--------+ + + + + | 06/14/ | Hospital | [facility] | Conversion | Diagnosis unknown | | 2015 | Encounter | [address] | Transaction, | | | | | [address] | Provider Unknown | | | | | [place], [place] | [phone] | | | | | [address] | | | | | | [phone] | | | +--------+ + + + [...] [address] | | | | | | [facility] | | | | | | [place] | | | | | | [address] | | | | | | | [...] 206 | | | | | | [place] [address] | | | | | | [phone] | | | | | | | | +--------+ + + + + | 11/25/ | Office | Nephrology | Kei Arthur MD | | | 2019 | Visit | | [address] [facility] | | | | | | [address] [place] | | | | | | [address] | | | | | | | [...]
--- OUTSIDE RECORDS SUMMARY | ~2019-10-02 | XMS | Encounter Summary ---
Demographics + + + | Address | [address] | | | [place] [address] | + + + | Home Phone | | + + + | Preferred Language | Unknown | + + + | Marital Status | Single | + + + | Mosque Affiliation | 1041 | + + + | Race | Unknown | + + + | Ethnic Group | Unknown | + + + Author + + + | Author | [facility] | | | and [place] | + + + | Organization | [facility] | | | and [place] | + + + | Address | Unknown | + + + | Phone | Unavailable | + + + Support + + + + + | Name | Relationship | Address | Phone | + + + + + | Kyaw Woodson | ECON | [place], [place] | | + + + + + | Barbara Cabrera | ECON | Unknown | | + + + + + | Dimple Hathaway | ECON | Unknown | | + + + + + Care Team Providers + +------+ + | Care Lead Esthetician Name | Role | Phone | + +------+ + | No, Physician | PCP | Unavailable | + +------+ + Encounter Details +--------+ + + + + | Date | Type | Department | Care Team | Description | +--------+ + + + + | 06/14/ | Hospital | [facility] | Conversion | Diagnosis unknown | | 2015 | Encounter | [address] | Transaction, | | | | | [address] | Provider Unknown | | | | | [place], [place] | [phone] | | | | | [address] | | | | | | [phone] | | | +--------+ + + + [...] [address] | | | | | | [facility] | | | | | | [place] | | | | | | [address] | | | | | | | [...] 206 | | | | | | [place] [address] | | | | | | [phone] | | | | | | | | +--------+ + + + + | 11/25/ | Office | Nephrology | Kei Arthur MD | | | 2019 | Visit | | [address] [facility] | | | | | | [address] [place] | | | | | | [address] | | | | | | | | +--------+ + + + + documented as of this encounter Procedures + +--------+ + + + | Procedure Name | Priori | Date/Time | Associated Diagnosis | Comments | | | ty | | | | + +--------+ + + + | XR CHEST 1 VIEW | Routin | 12/30/2015 | | Results for this | | | e | 6:42 PM | | procedure are in the | | | | PDT | | results section. | + +--------+ + + + documented in this encounter Results XR Chest 1 Vw (12/30/2015 6:42 PM PDT) + + | Specimen | [...]
--- OUTSIDE RECORDS SUMMARY | ~2019-10-02 | XMS | Encounter Summary ---
Demographics + + + | Address | [address] | | | [place] [address] | + + + | Home Phone | | + + + | Preferred Language | Unknown | + + + | Marital Status | Single | + + + | Gnosticist Affiliation | 1041 | + + + | Race | Unknown | + + + | Ethnic Group | Unknown | + + + Author + + + | Author | [facility] | | | and [place] | + + + | Organization | [facility] | | | and [place] | + + + | Address | Unknown | + + + | Phone | Unavailable | + + + Support + + + + + | Name | Relationship | Address | Phone | + + + + + | Kyaw Woodson | ECON | [place], [place] | | + + + + + | Barbara Cabrera | ECON | Unknown | | + + + + + | Dimple Hathaway | ECON | Unknown | | + + + + + Care Team Providers + +------+ + | Care Game Programmer Name | Role | Phone | + +------+ + | Jennyfer Gresham MD | PCP | | + +------+ + Encounter Details +--------+ + + + + | Date | Type | Department | Care Team | Description | +--------+ + + + + | 01/28/ | Orders Only | [facility] | Mari Mcdaniel, | | | 2019 | | CARDIOLOGY [place] | [address] | | | | | [address] | [address] [place], [place] | | | | | [place], [place] | [address] | | | | | [address] | | | | | | [phone] | | | +--------+ + + + [...] [place] | | | | | | [address] | | | | | | | [...] | | | | | | [place] [address] | | | | | | [phone] | | | | | | | | +--------+ + + + + | 11/25/ | Office | Nephrology | Kei Arthur MD | | | 2020 | Visit | | [address] | | | | | | [address] | | | | | | [address] | | | | | | | | +--------+ + + + + documented as of this encounter Visit Diagnoses Not on filedocumented in this encounter"
--- OUTSIDE RECORDS SUMMARY | ~2019-10-02 | XMS | Encounter Summary ---
Demographics + + + | Address | [address] | | | [place] [address] | + + + | Home Phone [...] Organization | [facility] | | | and [place] | + + + | Address | Unknown | + + + | Phone | Unavailable | + + + Support + + + + + | Name | Relationship | Address | Phone | + + + + + | Kyaw Woodson | ECON | [place], [place] | | + + + + + | Barbara Cabrera | ECON | Unknown | | + + + + + | Dimple Hathaway | ECON | Unknown | | + + + + + Care Team Providers + +------+ + | Care Special Delivery Clerk Name | Role | Phone | [...] + + | 05/24/ | Office | [facility] | Ro Breen, CATINA | PAD (peripheral | | 2019 | Visit | VASCULAR SURGERY | [address] | artery disease) | | | | [address] | [place], [place] | ([facility]) (Primary Dx); | | | | [place], [place] | [address] | S/P AKA (above knee | | | | [address] | | amputation), right | | | | [phone] | | (HCC) | +--------+---------+ + + [...] Ro Breen DNP - 05/24/2019 1:00 PM [facility] [address] [place] [address] [place] [address] Office: [phone] DATE OF VISIT: 05/24/2019 PATIENT NAME: Alondra Caballero : 1970; AGE: 49 y.o.; Sex:F PHONE NUMBER: ; ; PROVIDER: Ro Breen DNP PRIMARY CARE / REFERRING PHYSICIAN: No ref. provider found / No Physician on file / p REASON FOR EVALUATION / CHIEF COMPLAINT: Vascular Surgery Postoperative Visit for righ t [id number] The patient presents today for a Vascular Surgery Postoperative Visit. The patient is statu s post right [id number], which was performed on 04/14/2019 at [facility]. The patient is not [...] bearing at this time. 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 Wound care discussed with patient. Mo nitor [...] | | | | | | [facility] | | | | | | [place] | | | | | | [address] | | | | | | | [...] | | | | | [place] [address] | | | | | | [phone] | | | | | | | | +--------+ + + + + | 11/25/ | Office | Nephrology | Kei Arthur MD | | | 2019 | Visit | | [address] [facility] | | | | | | [address] | | | | | | [address] | | | | | | | [...]
--- OUTSIDE RECORDS SUMMARY | ~2019-10-02 | XMS | Encounter Summary ---
Demographics + + + | Address | [address] | | | [place] [address] | + + + | Home Phone | | + + + | Preferred Language | Unknown | + + + | Marital Status | Single | + + + | Mosque Affiliation | 1041 | + + + | Race | Unknown | + + + | Ethnic Group | Unknown | + + + Author + + + | Author | [facility] | | | and [place] | + + + | Organization | [facility] | | | and [place] | + + + | Address | Unknown | + + + | Phone | Unavailable | + + + Support + + + + + | Name | Relationship | Address | Phone | + + + + + | Kyaw Woodson | ECON | [place], [place] | | + + + + + | Barbara Cabrera | ECON | Unknown | | + + + + + | Dimple Hathaway | ECON | Unknown | | + + + + + Care Team Providers + +------+ + | Care Pass Worker Name | Role | Phone | + +------+ + | Daniel Land NP | PCP | | + +------+ + Encounter Details +--------+ + + + + | Date | Type | Department | Care Team | Description | +--------+ + + + + | 08/01/ | Orders Only | [facility] | Conversion | | | 2015 | | NEPRHOLOGY [place] | Transaction, | | | | | [address] | Provider Unknown | | | | | [address] [place] | [phone] | | | | | [address] | | | | | | [phone] | | | +--------+ + + + [...] | | | | | [address] [facility] | | | | | | [place] | | | | | | [address] | | | | | | | [...] | | | | | [place] [address] | | | | | | [phone] | | | | | | | | +--------+ + + + + | 11/25/ | Office | Nephrology | Kei Arthur MD | | | 2019 | Visit | | [address] [facility] | | | | | | [address] | | | | | | [address] | | | | | | | [...]
--- OUTSIDE RECORDS SUMMARY | ~2019-10-02 | XMS | Encounter Summary ---
Demographics + + + | Address | [address] | | | [place] [address] | + + + | Home Phone [...] + + + | Author | [facility] | | | and [place] | + + + | Organization | [facility] | | | and [...] Team Providers + +------+ + | Care Dipper And Drier Name | Role | Phone | + [...] + + | 05/09/ | Documentati | [facility] | Malvin, | Results (05/08/19) | | 2019 | on | NEPHROLOGY [place] | Janes Acevedo | | | | | [address] | Grind Operator | | | | | [address] [facility] | | | | | | [address] | | | | | | [phone] | | | +--------+ + + + [...] [place] | | | | | | [address] | | | | | | | [...] 206 | | | | | | [place] [address] | | | | | | [phone] | | | | | | | | +--------+ + + + + | 11/25/ | Office | Nephrology | Kei Arthur MD | | | 2019 | Visit | | [address] [facility] | | | | | | [address] | | | | | | [address] | | | | | | | [...] 1.005 - 1.030 | | | | [place] | | | | | + [...]
--- OUTSIDE RECORDS SUMMARY | ~2019-10-02 | XMS | Encounter Summary ---
Demographics + + + | Address | [address] | | | [place] [address] | + + + | Home Phone [...] | Organization | [facility] | | | and [place] | + + + | Address | Unknown | + + + | Phone | Unavailable | + + + Support + + + + + | Name | Relationship | Address | Phone | + + + + + | Kyaw Woodson | ECON | [place], [place] | | + + + + + | Barbara Cabrera | ECON | Unknown | | + + + + + | Dimple Hathaway | ECON | Unknown | | + + + + + Care Team Providers + +------+ + | Care Reed Worker Name | Role | Phone | [...] + + | 08/02/ | Refill | [facility] | Rick Mast, | Medication Refill | | 2019 | | [facility] | PROMOTIONS SPECIALIST [address] | | | | | CARE [address] | | | | | [address] | [place] | | | | | [place] | [address] | | | | | [address] | [phone] | | | | | [phone] | | | +--------+--------+ + + + [...] [place] | | | | | | [address] | | | | | | | [...] | | | | | [place] [address] | | | | | | [phone] | | | | | | | | +--------+ + + + + | 11/25/ | Office | Nephrology | Kei Arthur MD | | | 2020 | Visit | | [address] [facility] | | | | | | [address] | | | | | | [address] | | | | | | | [...]
--- OUTSIDE RECORDS SUMMARY | ~2019-10-02 | XMS | Encounter Summary ---
Demographics + + + | Address | [address] | | | [place] [address] | + + + | Home Phone [...] | Organization | [facility] | | | and [place] | + + + | Address | Unknown | + + + | Phone | Unavailable | + + + Support + + + + + | Name | Relationship | Address | Phone | + + + + + | Kyaw Woodson | ECON | [place], [place] | | + + + + + | Barbara Cabrera | ECON | Unknown | | + + + + + | Dimple Hathaway | ECON | Unknown | | + + + + + Care Team Providers + +------+ + | Care Bag Sorter Name | Role | Phone | + +------+ + | Daniel Land NP | PCP | | + +------+ + Encounter Details +--------+ + + + + | Date | Type | Department | Care Team | Description | +--------+ + + + + | 05/27/ | Orders Only | [facility] | Conversion | | | 2016 | | NEPRHOLOGY [place] | Transaction, | | | | | [address] | Provider Unknown | | | | | [address] [place] | [phone] | | | | | [address] | | | | | | [phone] | | | +--------+ + + + [...] | | | | [facility] [facility] | | | | | | [place] | | | | | | [address] | | | | | | | [...] | | | | | [place] [address] | | | | | | [phone] | | | | | | | | +--------+ + + + + | 11/25/ | Office | Nephrology | Kei Arthur MD | | | 2019 | Visit | | [address] [facility] | | | | | | [address] | | | | | | [address] | | | | | | | [...] - 1.030 | EXTERNAL | | | [place] | | | LAB | | + [...] | | | LAB | | | [facility] | | | | | + + [...]
--- OUTSIDE RECORDS SUMMARY | ~2019-10-02 | XMS | Encounter Summary ---
Demographics + + + | Address | [address] | | | [place] [address] | + + + | Home Phone [...] | Organization | [facility] | | | and [place] | + + + | Address | Unknown | + + + | Phone | Unavailable | + + + Support + + + + + | Name | Relationship | Address | Phone | + + + + + | Kyaw Woodosn | ECON | [place], [place] | | + + + + + | Barbara Cabrera | ECON | Unknown | | + + + + + | Dimple Hathaway | ECON | Unknown | | + + + + + Care Team Providers + +------+ + | Care Assessment Director Name | Role | Phone | + +------+ + | Daniel Land NP | PCP | | + +------+ + Encounter Details +--------+ + + + + | Date | Type | Department | Care Team | Description | +--------+ + + + + | 05/11/ | Orders Only | [facility] | Char Veliz | Bacteremia (Primary | | 2019 | | INFECTIOUS DISEASE | Jennifer Giraldo MD | Dx) | | | | [address] | [address] | | | | | [place], [place] | [place] [address] | | | | | [address] | [phone] | | | | | [phone] | | | +--------+ + + + [...] [place] | | | | | | [address] | | | | | | | [...] | | | | | [place] [address] | | | | | | [phone] | | | | | | | | +--------+ + + + + | 11/25/ | Office | Nephrology | Kei Arthur MD | | | 2019 | Visit | | [address] [facility] [address] | | | | | | [address] | | | | | | [address] | | | | | | | | +--------+ + + + + documented as of this encounter Visit Diagnoses + + | Diagnosis | + + | Bacteremia - Primary | + + documented in this encounter"
--- OUTSIDE RECORDS SUMMARY | ~2019-10-02 | XMS | Encounter Summary ---
Demographics + + + | Address | [address] | | | [place] [address] | + + + | Home Phone [...] + + | Organization | [facility] | | | and [place] | + + + | Address | Unknown | + + + | Phone | Unavailable | + + + Support + + + + + | Name | Relationship | Address | Phone | + + + + + | Kyaw Woodson | ECON | [place], [place] | | + + + + + | Barbara Cabrera | ECON | Unknown | | + + + + + | Dimple Hathaway | ECON | Unknown | | + + + + + Care Team Providers + +------+ + | Care General Road Supervisor Name | Role | Phone | + +------+ + | No, Physician | PCP | Unavailable | + +------+ + Encounter Details +--------+ + + + + | Date | Type | Department | Care Team | Description | +--------+ + + + + | 06/14/ | Hospital | [facility] [place] [facility] | Conversion | Diagnosis unknown | | 2015 | Encounter | CONVERSION [address] | Transaction, | | | | | [address] | Provider Unknown | | | | | [place], [place] | [phone] | | | | | [address] | | | | | | [phone] | | | +--------+ + + + [...] [address] | | | | | | [facility] | | | | | | [place] | | | | | | [address] | | | | | | | [...] [address] | | | | | | [place] [address] | | | | | | [phone] | | | | | | | | +--------+ + + + + | 11/25/ | Office | Nephrology | Kei Arthur MD | | | 2019 | Visit | | [address] [facility] | | | | | | [address] [facility] | | | | | | [address] | | | | | | | [...]
--- OUTSIDE RECORDS SUMMARY | ~2019-10-02 | XMS | Encounter Summary ---
Demographics + + + | Address | [address] | | | [place] [address] | + + + | Home Phone | | + + + | Preferred Language | Unknown | + + + | Marital Status | Single | + + + | Hinduism Affiliation | 1041 | + + + | Race | Unknown | + + + | Ethnic Group | Unknown | + + + Author + + + | Author | [facility] | | | and [place] | + + + | Organization | [facility] | | | and [place] | + + + | Address | Unknown | + + + | Phone | Unavailable | + + + Support + + + + + | Name | Relationship | Address | Phone | + + + + + | Kyaw Woodson | ECON | [place], [place] | | + + + + + | Barbara Cabrera | ECON | Unknown | | + + + + + | Dimple Hathaway | ECON | Unknown | | + + + + + Care Team Providers + +------+ + | Care Community Health Promoter Name | Role | Phone | + [...] + + | 07/17/ | Refill | [facility] | Mari Mcdaniel, | Medication Refill | | 2019 | | CARDIOLOGY EZRA | [address] | (Fenofibrate) | | | | [address] | [place] | | | | | [place] | [address] | | | | | [address] | | | | | | [phone] | | | +--------+--------+ + + + [...] [address] | | | | | | [address] | | | | | | | [...] | | | | | [place] [address] | | | | | | [phone] | | | | | | | | +--------+ + + + + | 11/25/ | Office | Nephrology | Kei Arthur MD | | | 2020 | Visit | | [address] [facility] | | | | | | [address] [place] | | | | | | [address] | | | | | | | | +--------+ + + + + documented as of this encounter Visit Diagnoses Not on filedocumented in this encounter"
--- OUTSIDE RECORDS SUMMARY | ~2019-10-02 | XMS | Encounter Summary ---
Demographics + + + | Address | [address] | | | [place] [address] | + + + | Home Phone [...] + + + | Author | [facility] | + + + | Organization | [facility] | + + + | Address | Unknown | + + + | Phone | Unavailable | + + + Support + + +---------+ + | Name | Relationship | Address | Phone | + + +---------+ + | Valentine Qiu | ECON | Unknown | | + + +---------+ + Care Team Providers + +------+ + | Care Auto Club Safety Program Coordinator Name | Role | Phone | + +------+ + | Ifeanyi Call MD | PCP | | + +------+ + Encounter Details +--------+ + + + + | Date | Type | Department | Care Team | Description | +--------+ + + + + | 12/24/ | Document-Sc | [facility] | Danielito Crockett MD,PhD | | | 2017 | anned | [facility] | [address] | | | | | at [place] [address] | Carrie Sanabria | | | | | [facility] | [place], [place] | | | | | Mailcode: [facility] | [address] | | | | | [place] [address] | [phone] | | | | | [phone] | | | +--------+ + + + [...]
--- OUTSIDE RECORDS SUMMARY | ~2019-10-02 | XMS | Encounter Summary ---
Demographics + + + | Address | [address] | | | [place] [address] | + + + | Home Phone [...] + + + | Author | [facility] | | | and [place] | + + + | Organization | [facility] | | | and [place] | + + + | Address | Unknown | + + + | Phone | Unavailable | + + + Support + + + + + | Name | Relationship | Address | Phone | + + + + + | Kyaw Woodson | ECON | [place], [place] | | + + + + + | Barbara Cabrera | ECON | Unknown | | + + + + + | Dimple Hathaway | ECON | Unknown | | + + + + + Care Team Providers + +------+ + | Care Central Sterilization Technician Name | Role | Phone | + +------+ + | No, Physician | PCP | Unavailable | + +------+ + Encounter Details +--------+ + + + + | Date | Type | Department | Care Team | Description | +--------+ + + + + | 11/21/ | Orders Only | [facility] | Conversion | | | 2019 | | NEPRHOLOGY ROBERT | Transaction, | | | | | [address] | Provider Unknown | | | | | [address] [place], [place] | | | | | | [address] | (Fax) | | | | | [phone] | | | +--------+ + + + [...] [place] | | | | | | [address] | | | | | | | [...] | | | | | [place] [address] | | | | | | [phone] | | | | | | | | +--------+ + + + + | 11/25/ | Office | Nephrology | Kei Arthur MD | | | 2019 | Visit | | [address] [facility] | | | | | | [address] [place], [place] | | | | | | [address] | | | | | | | | +--------+ + + + + documented as of this encounter Procedures + +--------+ + + + | Procedure Name | Priori | Date/Time | Associated Diagnosis | Comments | | | ty | | | | + +--------+ + + + | EXTERNAL LAB: [facility] | Routin | 11/21/2018 | | Results for this | | | e | 2:53 AM | | procedure are in the | | | | PST | | results section. | + +--------+ + + + | LIPID PANEL | Routin | 11/21/2018 | | Results for this | | | e | 2:53 AM | | procedure are in the | | | | PST | | results section. | + +--------+ + + + | VITAMIN B-12 | Routin | 11/21/2018 | | Results for this | | | e | 2:53 AM | | procedure are in the | | | | PST | | results section. | + +--------+ + + + | MAGNESIUM | Routin | 11/21/2018 | | Results for this | | | e | 2:53 AM | | procedure are in the | | | | PST | | results section. | + +--------+ + + + | COMPREHENSIVE | Routin | 11/21/2018 | | Results for this | | METABOLIC PANEL | e | 2:53 AM | | procedure are in the | | | | PST | | results section. | + +--------+ + + + documented in this encounter Results External Lab: CBC (11/21/2018 2:53 AM PST) + + + + + + | Component | Value | Ref Range | Performed | Pathologist | | | | | At | Signature | + + + + + + | WBC | 10.2 | 4.5 - 11.0 10 | EXTERNAL | | | | | | LAB | | + + + + + + | RED CELL | 3.88 | 3.8 - 5.1 10 | EXTERNAL | | | COUNT | | | LAB | | + + + + + + | Hgb | 12.0 | 12.0 - 16.0 | EXTERNAL | | | | | g/dL | LAB | | + + + + + + | Hematocrit, | 36.2 | 35 - 45 % | EXTERNAL | | | POC | | | LAB | | + + + + + + | MCV | 93.3 | 81 - 99 fL | EXTERNAL [...] + + + + | Platelet | 315 | 140 - 440 K/ L | EXTERNAL | | | Count | | | LAB | | | Plasma | | | | | + + + + + + | RDW-CV | 14.2 | 10.5 - 15.0 % | EXTERNAL [...] + + + + | % | 23.2 (A) | 24 - 44 % | EXTERNAL | | | Lymphocytes | | | LAB | | + + + + + + | % Monocytes | 5.1 | 0 - 12 % | EXTERNAL | | | | | | LAB | | + + + + + + | % | 2.0 | 0 - 6 % | EXTERNAL | | | Eosinophils | | | LAB | | + + + + + + | % Basophils | 0.5 | 0 - 2 % | EXTERNAL | | | | | | LAB | | + + + + + + | Absolute | 7.06 (A) | 2.0 - 6.9 / L | EXTERNAL | | | Segmented | | | LAB | | | Neutrophils | | | | | + + + + + + | Absolute | 2.37 | 0.6 - 3.4 / L | EXTERNAL | | | Lymphocytes | | | LAB | | + + + + + + | Absolute | 0.52 | 0.0 - 1.1 / L | EXTERNAL | | | Monocytes | | | LAB | | + + + + + + | Absolute | 0.20 | 0.0 - 0.7 / L | EXTERNAL | | | Eosinophils | | | LAB | | + + + + + + | Absolute | 0.05 | 0.0 - 0.2 / L | EXTERNAL | | | [...] | | + +---------+ + + Magnesium (11/21/2018 2:53 AM PST) + +-------+ + + + [...] | + +---------+ + + Vitamin B-12 (11/21/2018 2:53 AM PST) + + + + + + | Component | Value | Ref Range | Performed | Pathologist | | | | | At | Signature | + + + + + + | VITAMIN | 2,000 (A) | 232 - 1,245 | EXTERNAL | | | B-12 | | | LAB | | + [...] | + +---------+ + + Lipid Panel (11/21/2018 2:53 AM PST) + +---------+ + + + | Component | Value | Ref Range | Performed | Pathologist | | | | | At | Signature | + +---------+ + + + | Cholesterol | 164 | 200 mg/dL | EXTERNAL | | | | | | LAB | | + +---------+ + + + | Triglycerid | 354 (A) | 30 - 150 mg/dL | EXTERNAL | | | es | | | LAB | | + +---------+ + + + | HDL | 33 | 40 mg/dl | EXTERNAL | | | | | | LAB | | + +---------+ + + + | LDL | 60 | 100 mg/dL | EXTERNAL | | | Cholesterol [...] + + | Chol/HDL | 5.0 | 4.44 | EXTERNAL | | | Ratio | | | LAB | | + +---------+ + + + | VLDL | 71 (A) | 4 - 40 mg/dL | EXTERNAL | | | | | | LAB | | + +---------+ + + + | Non HDL | 131 (A) | 130 | EXTERNAL | | [...] + +---------+ + + Comprehensive Metabolic Panel (11/21/2018 2:53 AM PST) + + + + + + | Component | Value | Ref Range | Performed | Pathologist | | | | | At | Signature | + + + + + + | Glucose, | 164 (A) | 70 - 100 mg/dL | EXTERNAL | | | Fasting | | | LAB | | + + + + + + | BUN | 39 (A) | 6 - 23 mg/dL | EXTERNAL | | | | | | LAB | | + + + + + + | Creatinine | 2.58 (A) | 0.60 - 1.35 | EXTERNAL | | | | | mg/dL | LAB | | + + + + + + | BUN/Creatin | 15.1 | 6.0 - 28.6 | EXTERNAL | | | ine Ratio | | | LAB | | + + + + + + | Calcium | 9.3 | 8.5 - 10.3 | EXTERNAL | | | | | mg/dL | LAB | | + + + + + + | Protein, | 7.2 | 6.0 - 8.3 g/dL | EXTERNAL | | | Total | | | LAB | | + + + + + + | Albumin | 3.8 | 3.5 - 5.0 | EXTERNAL | | | | | | LAB | | + + + + + + | Globulin | 3.4 | 1.8 - 3.5 | EXTERNAL | | | | | | LAB | | + + + + + + | A/G Ratio | 1.1 | 1.1 - 2.4 | EXTERNAL | | | | | | LAB | | + + + + + + | Bilirubin | 0.3 | 0.0 - 1.2 mg/dL | EXTERNAL | | | Total | | | LAB | | + + + + + + | ALP, | 66 | 31 - 130 | EXTERNAL | | | External | | | LAB | | + + + + + + | ALT | 22 | 7 - 52 U/L | EXTERNAL | | | | | | LAB | | + + + + + + | AST | 21 | 13 - 39 U/L | EXTERNAL | | | | | | LAB | | + + + + + + | Na | 140 | 132 - 143 | EXTERNAL | | | | | mmol/L | LAB | | + + + + + + | K | 3.8 | 3.6 - 5.1 | EXTERNAL | | | | | mmol/L | LAB | | + + + + + + | Cl | 104 | 95 - 112 mmol/L | EXTERNAL | | | | | | LAB | | + + + + + + | CO2 | 24 | 19 - 31 mmol/L | EXTERNAL | | | | | | LAB | | + + + + + + | Anion Gap | 15.8 | 7 - 21 mmol/L | EXTERNAL | | | | | | LAB | | + + + + + + | Estimated | 20 (A) | 60 - 140 mg/dL | [...]
--- OUTSIDE RECORDS SUMMARY | ~2019-10-02 | XMS | Encounter Summary ---
Demographics + + + | Address | [address] | | | [place] [address] | + + + | Home Phone | | + + + | Preferred Language | Unknown | + + + | Marital Status | Single | + + + | Worship Affiliation | UNK | + + + [...] Team Providers + +------+ + | Care Solar Thermal Installer Name | Role | Phone | + [...] photography | | 2017 | Visit | [facility] | | ([place]); Fluorescein | | | | Photography at | | ([place], patient has | | | | [place] [address] | | difficult veins due | | | | [place] | | to IV drug. was | | | | Mailcode: CEI | | able to get vein on | | | | [place] [address] | | right hand. ); | | | | [phone] | | Autofluorescence | | | | [...]
--- OUTSIDE RECORDS SUMMARY | ~2019-10-02 | XMS | Encounter Summary ---
Demographics + + + | Address | [address] | | | [place] [address] | + + + | Home Phone [...] + + + | Author | [facility] | | | and [place] | + + + | Organization | [facility] | | | and [place] | + + + | Address | Unknown | + + + | Phone | Unavailable | + + + Support + + + + + | Name | Relationship | Address | Phone | + + + + + | Kyaw Woodson | ECON | [place], [place] | | + + + + + | Barbara Cabrera | ECON | Unknown | | + + + + + | Dimple Hathaway | ECON | Unknown | | + + + + + Care Team Providers + +------+ + | Care Tunnel Kiln Repairer Name | Role | Phone | + +------+ + PCP | Unavailable | + +------+ + Encounter Details +--------+ + + + + | Date | Type | Department | Care Team | Description | +--------+ + + + + | 10/18/ | Hospital | [facility] | Klaudia Zepeda, | Dyspnea; CHF | | 2011 - | Encounter | [facility] | MD Matt OLSEN | (congestive heart | | | | CARE FLOOR 4 [address] | [facility], | failure) ([facility]); | | [address] | | [address] | [place] [address] | Pneumonia; NSTEMI | | 2011 | | [place], [place] | [phone] | (non-ST elevated | | | | [address] | | myocardial | | | | [phone] | | infarction) ([facility]); | | | | | | Microcytic [...] Ramon MD at 10/23/11 1045 Author: Alcides Ramon MD Service: (none) Author Type: Physician Filed: 11/21/111958 Date of Service: 10/23/111044 Status: Addendum Airline Security Representative: Alcides Ramon MD (Physician) Related Notes: Original Note by Alcides Ramon MD (Physician) filed at 10/23/[address] [facility] Service: Hospitalist Discharge Summary Date of [...] Significant Diagnostic Studies: XR chest 1 view [[id number]] Collection: 10/20/11917 Order Status: Completed Resulted: 10/20/11919 Narrative: ADAM OLSENNENA XR CHEST 1 VIEW 10/20/2011 6:18 AM [...] edema. 2. Borderline cardiomegaly. chest with contrast [[id number]] Order Status: Completed Resulted: 10/19/11 0729 Narrative: This is a non-reportable procedure without a radiologist report and is used for image storage only XR Chest PA and Lateral [[id number]] Collection: 10/18/11 1745 Order Status: Completed Resulted: [...] and small bilateral pleural effusions. Urine culture [[id number]] Abnormal Collection: 10/18/11 0111 Order Status: Completed Resul emanuel: 10/23/11 0933 Specimen Type: Urine Specimen Source: Urine, Clean Catch SPECIMEN DE SCRIPTION Result: CLEAN CATCH URINE SPECIMEN DESCRIPTION Result: Testing performed at [facility];[address] [place] [address] CULTURE A Result: 50,000 TO 100 ,000 CFU/ML KRISTINA GLABRATA CULTURE Result: Testing performed at [facility], [address] [place] [address] REPORT STATUS Result: 10/23/2011 FINAL Sputum culture [[id number]] Abnormal Collection: 10/19/11 1131 Order Status: Completed Resulted: 0 10/21/11 1041 Specimen Type: Sputum Specimen Source: Sputum SPECIMEN DESCRIPTION SPUTUM SPECIMEN DESCRIPTION Result: Testing performed at [facility];[address] [place] [address] GRAM STAIN Result: GREATER THAN 10 WBCS/LPF GRAM STAIN Result: LESS THAN 10 SEC/LPF GRAM STAIN Result: NO ORGANISMS SEEN GRAM STAIN Result: Testing performed at [facility], [address] [place] [address] CULTURE A Result: 2+ KRISTINA ALBICANS CULTURE Result: 1+ NORMAL UPPER RESPIRATORY RADHA CULTURE Result: Testing performed at [facility], [address] [place] [address] REPORT STATUS Result: 10/21/2011 FINAL Patient Name: ADAM MRATIN Date of : 1970 Echocardiogram Performing Physician: [...] 73.08 ml D-E Excursion: 1.64 cm E-F Mccook: 0.06 m/s EPSS: 1.30 cm HR: 108.2 [...] TV A Navid: 0.79 m/s TV Dec Mccook: 3.98 m/s2 TV Dec Time: 144.60 ms TV E Navid: 0.57 m/s TV E/A Ratio: 0.72 Millwright Instructor: KAHLIL Authenticated by: Luis Manuel Santana MD [...] spurs coming through skin. Was transferred from [facility] on day of admission. Troponin mildly elevated [...] cardiac rehab/ cardi ac transplant discussion with Technician Terminal And Repeater outpatient Hypomagnesemia - repleted PO today, will also give Rx for 3 more days, f/u with PCP/cardiol ogy Narcotic dependence - will be d/c to a alf house. Left leg pain s/p BKA revision - will d/c with Rx for her post op dose of oxicodone 20 mg q 6 h. Rest of care deferred to PCP/ surgeon Type I (juvenile type) diabetes mellitus without mention of complication, not stated as [place] ontrolled - appreciate DM educator input, resume home meds and f/u with PCP Disposition: Richard's alf house Condition: Fair Code Status: Full Code [...] Date of Service: 10/23/11 1558 Status: Signed Airline Security Representative: Sarah Patel RN (Registered Nurse) 1500 Patient [...] 1227 Date of Service: 10/23/111220 Status: Signed Airline Security Representative: Joey Smith RRT (Registered Respiratory Therapist) [facility] Department of Respiratory Longterm Oxygen Evaluation (Evaluation is valid for 48 [...] Signature: Date: 10/23/2011 Time: 12:21 PM onver jsesica Maldonado, Provider Unknown - 10/23/2011 4:20 AM PST Progress Notes by Randa Lopez RN at 10/23/11419 Author: Randa Lopez RN Service: (none) Author Type: Registered Nurse Filed: 10/23/11 0425 Date of Service: 10/23/11419 Status: Signed Airline Security Representative: Randa Lopez RN (Registered Nurse) Pt asked [...] 10/22/111828 Date of Service: 10/22/111827 Status: Signed Airline Security Representative: Vane Bolaños RN (Registered Nurse) Resting quietly in bed. Has been crying today due to stress from results of heart cath yest genoveva. Dr. Tomas was in to speak with her. Planning discharge tomorrow.Vane Bolaños 2011 Alcides Poon MD - 10/22/2011 4:32 PM PST Progress Notes by Alcides Ramon MD at 10/22/11 163 Author: Alcdies Ramon MD Service: (none) Author Type: Physician Filed: 10/22/11 1640 Date of Service: 10/22/111631 Status: Addendum Airline Security Representative: Alcides Ramon MD (Physician) Related Notes: Original Note by Alcides Ramon MD (Physician) filed at 10/22/[address] [facility] Service: Hospitalist Progress Note Hospital Day: [...] cont statin and aspirin as well.Dr.Tabba garsia [facility] ordered repeat cardiac enzmes and says that [...] [place] wanted to be called. Called at [phone]. After a lengthy explanation, she had more [...] Author: Supriya Dale Service: (none) Author Type: Food Cart Attendant Filed: 10/22/11 1622 Date of Service: 10/22/11 1617 Status: Signed Airline Security Representative: Supriya Dale (Food Cart Attendant) pts discharge put on hold until Tuesday & sister will transport...Richard's home aware of ch angela in [place], [place] transport cancelled. onver jessica Transaction, Provider Unknown - 10/22/2011 4:01 PM PST Progress Notes by Supriya Dale at 10/22/11 1601 Author: Supriya Dale Service: (none) Author Type: Food Cart Attendant Filed: 10/22/11 1603 Date of Service: 10/22/11 1601 Status: Signed Airline Security Representative: Supriya Dale (Food Cart Attendant) CM spoke with [facility] Chuck [phone] who stated he would be able to trans port pt back to [facility] in [facility] around 5-5:30... CM also spoke with Edna Jules at [facility] who stated they would accept pt back... No further d/c needs identified. Cleopatra Sánchez RD - 10/22/2011 2:37 PM PSTFormatting of this note might be different from the obdulio ginal. Progress Notes by Cleopatra Pinzon RD at 10/22/11 1437 Author: Cleopatra Pinzon RD Service: (none) Author Type: Registered Dietitian Filed: 10/22/11 1439 Date of Service: 10/22/11 1437 Status: Signed Airline Security Representative: Cleopatra Pinzon RD (Station Agent) BG remains in 200-300 range. Lantus insulin was increased to 100 units this am from 90 uni ts. Recommend increase to 120 units. Also getting 5 units Novolog insulin with meals. Rec ommend increase to 8 units with meals. Cleopatra Pinzon RD, CD, Inpatient Station Agent 10/22/2011 2:39 PM onversion Transaction , Provider Unknown - 10/22/2011 6:06 AM PST Progress Notes by Estela Biswas RN at 10/22/11605 Author: Estela Biswas RN Service: (none) Author Type: Registered Nurse Filed: 10/22/11605 Date of Service: 10/22/11605 Status: Signed Airline Security Representative: Estela Biswas RN (Registered Nurse) No acute changes from previous charting. VSS. Will continue to monitor. Estela Biswas RN onver jessica Transaction, Provider Unknown - 10/22/2011 3:05 AM PST Progress Notes by Estela Biswas RN at 10/22/11304 Author: Estela Biswas RN Service: (none) Author Type: Registered Nurse Filed: 10/22/11 0459 Date of Service: 10/22/11304 Status: Signed Airline Security Representative: Estela Biswas RN (Registered Nurse) Pt ambulated [...] 0002 Date of Service: 10/21/112214 Status: Signed Airline Security Representative: Estela Biswas RN (Registered Nurse) Pt does [...] (none) Author Type: Registered Nurse Filed: 10/21/11 8977 Date of Service: 10/21/111944 Status: Signed Airline Security Representative: Estela Biswas RN (Registered Nurse) Pt returned [...] 10/21/111927 Date of Service: 10/21/111926 Status: Signed Airline Security Representative: Estela Romero RN (Registered Nurse) Patient was D/C'd from PACU at 1921 with a PACU acuity I . Patient was transferred back to room on 4RP onver jessica Transaction, Provider Unknown - 10/21/2011 7:18 PM PST Progress Notes by Estela Romero RN at 10/21/111917 Author: Estela Romero RN Service: (none) Author Type: Registered Nurse Filed: 10/21/111919 Date of Service: 10/21/111917 Status: Signed Airline Security Representative: Estela oRmero RN (Registered Nurse) Jacqueline Nunez RN and Estela Romero RN taking care of patient while in PACU onver jessica Transaction, Provider Unknown - 10/21/2011 5:00 PM PST Progress Notes by Haylee Curran RN at 10/21/111699 Author: Haylee Curran RN Service: (none) Author Type: Registered Nurse Filed: 10/21/112011 Date of Service: 10/21/111699 Status: Signed Airline Security Representative: Haylee Curran RN (Registered Nurse) Pt to laborer yard for angiogram. Alcides Poon MD - 10/21/2011 4:49 PM PST Progress Notes by Alcides Ramon MD at 10/21/111648 Author: Alcides Ramon MD Service: (none) Author Type: Physician Filed: 10/21/111655 Date of Service: 10/21/111648 Status: Signed Airline Security Representative: Alcides Ramon MD (Physician) [facility] Service: Hospitalist Progress Note Hospital Day: [...] Notes by Haylee Curran RN at 10/21/11 3947 Author: Haylee Curran RN Service: (none) Author Type: Registered Nurse Filed: 10/21/112010 Date of Service: 10/21/11 7356 Status: Signed Airline Security Representative: Haylee uCrran RN (Registered Nurse) Pt has been anxious [...] 10/21/11629 Date of Service: 10/21/11619 Status: Signed Airline Security Representative: Katie López RN (Registered Nurse) Pt is [...] 0303 Date of Service: 10/21/11255 Status: Signed Airline Security Representative: Katie López RN (Registered Nurse) Pt continues [...] 10/20/112319 Date of Service: 10/20/118 Status: Signed Airline Security Representative: Katie López RN (Registered Nurse) Admin ativan 2 mg prior to moving pt. Pt did not tolerate due to pain, but O2 saturation di d not drop below 84%. Pt is currently at 90% with FiO2 at 100% and 23/14. Will continue to m onitor. onver jessica Transaction, Provider Unknown - 10/20/2011 4:00 PM PST Progress Notes by Haylee Curran RN at 10/20/11 1600 Author: Haylee Curran RN Service: (none) Author Type: Registered Nurse Filed: 10/20/111951 Date of Service: 10/20/11 1600 Status: Signed Airline Security Representative: Haylee Curran RN (Registered Nurse) Pt resting [...] Progress Notes by Umesh Law at 10/20/11 1150 Author: Umesh Law Service: (none) Author Type: Vacuum Technician Filed: 10/20/11 1155 Date of Service: 10/20/11 1154 Status: Signed Airline Security Representative: Umesh Law (Vacuum Technician) Cosigner: Kelly Hernández RN at 10/20/11 1203 Patient returned from laborer yard. Patient very anxious and diaphoretic, medicated with [...] Date of Service: 10/20/11 1148 Status: Signed Airline Security Representative: Haylee Curran RN (Registered Nurse) Pt left for heart cath at 1030, returned around 1130. Unable to tolerate cath at this time. Jeffery Maurice - 10/20/2011 11:12 AM PST . Progress Notes by Jeffery Juarez MD at 10/20/11 1112 Author: Jeffery Juarez MD Service: Cardiology Author Type: Physician Filed: 10/20/11 1125 Date of Service: 10/20/11 1112 Status: Signed Airline Security Representative: Jeffery Juarez MD (Physician) Related Notes: Original Note by Jeffery Juarez MD (Physician) filed at 10/20/[address] [facility] Service: Cardiology/[facility] Progress Note RE: Adam Sowmya : 1970 DATE OF SERVICE: 10/18/2011 PROVIDER:JEFFERY JUAREZ Pt is seen for F/U on: shortness of breath SUBJECTIVE: Still complaining about pain in her stump. Was brought to the laborer yard for recommended LHC. Pt however started to [...] Notes by Alcides Ramon MD at 10/20/11 1040 Author: Alcides Ramon MD Service: (none) Author Type: Physician Filed: 10/20/11 1420 Date of Service: 10/20/11 1045 Status: Signed Airline Security Representative: Alcides Ramon MD (Physician) [facility] Service: Hospitalist Progress Note Hospital Day: [...] 0559 Date of Service: 10/20/1156 Status: Signed Airline Security Representative: Katie López RN (Registered Nurse) Pt is [...] 10/19/112211 Date of Service: 10/19/112202 Status: Signed Airline Security Representative: Katie López RN (Registered Nurse) At beginning [...] 10/19/111950 Date of Service: 10/19/111949 Status: Signed Airline Security Representative: Marley Real RN (Registered Nurse) Pt resting [...] Date of Service: 10/19/11 1531 Status: Signed Airline Security Representative: Cari Mullins RN, LEORAE (Station Agent) Station Agent's attempted to see pt. This morning around 0930 and again this afternoon , but both times pt. Was too tired for any education. Will review blood sugars again in the am to see the effect of the Levemir that was given this morning, (64 units, ) along with th e low dose correction Novolog. The Station Agent for tomorrow will attempt to see pt. A gain. onver jessica Transaction, Provider Unknown - 10/19/2011 10:35 AM PST Progress Notes by Supriya Dale at 10/19/11 1035 Author: Supriya Dale Service: (none) Author Type: Food Cart Attendant Filed: 10/19/11 1036 Date of Service: 10/19/11 1035 Status: Signed Airline Security Representative: Supriya Dale (Food Cart Attendant) FLORENTIN called Edna Lebeau the reports analysis manager at [facility] [phone] and requested a return call to see if the organization would provide transportation home for pt upon d/c...will con tinue to follow. onver jessica Transaction, Provider Unknown - 10/19/2011 10:19 AM PST Progress Notes by Supriya Dale at 10/19/11 1019 Author: Supriya Dale Service: (none) Author Type: Food Cart Attendant Filed: 10/19/11 1021 Date of Service: 10/19/11 1019 Status: Signed Airline Security Representative: Supriya Dale (Food Cart Attendant) CM met with pt who states that she lives in [facility] in a transition house called [employer] use... Pt does not have friends or [...] 1534 Date of Service: 10/19/11904 Status: Signed Airline Security Representative: Alcides Ramon MD (Physician) [facility] Service: Hospitalist Progress Note Hospital Day: [...] 10/19/11442 Date of Service: 10/19/11439 Status: Signed Airline Security Representative: Gita Rodriguez RN (Registered Nurse) Pt currently [...] 10/19/11137 Date of Service: 10/19/11137 Status: Signed Airline Security Representative: Sandra Gleason RPH (Pharmacist) Clinical Pharmacy Note: Renal Monitoring Adam Sowmya 41 y.o. female Ht Readings from Last 1 Encounters: 10/18/11 1.778 m (5' 10") Wt Readings from Last 1 Encounters: 10/18/11 120.3 kg (265 lb 3.4 oz) CREATININE Date Value Range Status 10/18/2011 0.6 0.6-1.2 (mg/dL) Final Testing performed at [facility];[address] [place] [address];[place] [address] CREATININE: 0.6 (10/18/11 1641) Estimated creatinine clearance [...] [address] | | | | | | [facility] | | | | | | [place], [place] | | | | | | [id number] | | | | | | | [...] [address] | | | | | | [place] [address] | | | | | | [phone] | | | | | | | | +--------+ + + + + | 11/25/ | Office | Nephrology | Kei Arthur MD | | | 2019 | Visit | | [address] [facility] | | | | | | [address] [place] | | | | | | [address] | | | | | | | [...] angiogram for closure device deployment. 6. A 6-Ivorian | | | Angio-Seal deployment at the closure device at the right | | | arteriotomy site. INDICATIONS The patient is a 41-year-old lady | | | who was admitted at [facility] with a diagnosis | | | of [...] with 1% lidocaine. A | | | 6-Ivorian vascular sheath was inserted in the right [...] | | | was pulled and a 6-Ivorian Angio-Seal was deployed at the right | [...] closure device deployment. | | 6. A 6-Ivorian Angio-Seal deployment at the closure device at the right | | arteriotomy site. | | | | INDICATIONS | | The patient is a 41-year-old lady who was admitted at [facility] with a diagnosis of flash pulmonary edema [...] groin with 1% lidocaine. A | | 6-Ivorian vascular sheath was inserted in the right [...] | | sheath was pulled and a 6-Ivorian Angio-Seal was deployed at the right | [...] | | | | | Read by VIRIDIAAN BRAMBILA MD 10/24/2011 09:53 P | | [...] angiogram for closure device deployment. 6. A 6-Ivorian | | | Angio-Seal deployment at the closure device at the right | | | arteriotomy site. INDICATIONS The patient is a 41-year-old lady | | | who was admitted at [facility] with a diagnosis | | | of [...] with 1% lidocaine. A | | | 6-Ivorian vascular sheath was inserted in the right [...] | | | was pulled and a 6-Ivorian Angio-Seal was deployed at the right | [...] closure device deployment. | | 6. A 6-Ivorian Angio-Seal deployment at the closure device at the right | | arteriotomy site. | | | | INDICATIONS | | The patient is a 41-year-old lady who was admitted at [facility] with a diagnosis of flash pulmonary edema [...] groin with 1% lidocaine. A | | 6-Ivorian vascular sheath was inserted in the right [...] | | sheath was pulled and a 6-Ivorian Angio-Seal was deployed at the right | [...] Performed At | + + + | [facility] Service: Cardiology/[facility] Progress Note RE: Adam Martin : | | | 1970 DATE OF SERVICE: 10/18/2011 PROVIDER:JEFFERY JUAREZ Pt is | | | seen for F/U on: shortness of breath SUBJECTIVE: Still complaining | | | about pain in her stump. Was brought to the laborer yard for recommended | | | [facility]. Pt however started to scream even with [...] Marcelo Matias Conversion - 05/12/2019 3:04 AM [facility] | | Service: Cardiology/[facility] | | Progress Note | | RE: Adma Martin | | : 1970 | | DATE OF SERVICE: 10/18/2011 | | PROVIDER:JEFFERY JUAREZ | | Pt is seen for F/U on: shortness of breath | | SUBJECTIVE: | | Still complaining about pain in her stump. Was brought to the laborer yard for | | recommended [facility]. Pt however started to scream even with [...] EXTERNAL LAB | | Testing performed at [facility];[address] | | | [facility];[place] [address] GRAM STAIN | | | GREATER THAN 10 WBCS/LPF | | | LESS THAN 10 SEC/LPF | | | NO ORGANISMS SEEN | | | Testing performed at [facility], [address] [facility], | | | [place] [address] CULTURE | | | 2+ KRISTINA ALBICANSAbnormal | | | 1+ NORMAL UPPER RESPIRATORY RADHA | | | Testing performed at [facility], [address] | | | [facility], [place] [address] REPORT STATUS | | | 10/21/2011 FINAL [...] 73.08 ml D-E Excursion: 1.64 cm E-F Mccook: | | | 0.06 m/s EPSS: 1.30 [...] TV A Navid: 0.79 m/s TV Dec Mccook: 3.98 m/s2 TV Dec Time: | | | 144.60 ms TV E Navid: 0.57 m/s TV E/A Ratio: 0.72 | | | Millwright Instructor: KAHLIL Authenticated by: Luis Manuel Santana MD [...] mlLAESV Index (A-L): 21.80 ml/m2LAAs A2C: 15.57 [id number] A-L A2C: 46.26 | | mlLALs A2C: 4.45 cmLAAs A4C: 17.25 [id number] A-L A4C: 46.75 mlLALs A4C: 5.40 cmAo | | Diam: 2.89 cmAV Cusp: 1.58 cmLA Diam: 4.36 cmLA/Ao: 1.50%FS: 27.65 | | %EDV(Teich): 137.31 mlEF(Teich): 53.21 %ESV(Teich): 64.23 mlIVSd: 0.99 cmIVSs: | | 1.33 cmLVIDd: 5.33 cmLVIDs: 3.85 cmLVPWd: 1.07 cmLVPWs: 1.41 cmSV(Teich): | | 73.08 mlD-E Excursion: 1.64 cmE-F Mccook: 0.06 m/sEPSS: 1.30 cmHR: 108.2 BPMAV | | maxP.16 mmHgAV meanP.50 mmHgAV Vmax: 1.33 m/Jordan Vmean: 1.03 m/Jordan VTI: | | 22.09 cmAVA Vmax: 1.80 cm2AVA (VTI): 1.85 [id number] Dopp: 1.97 l/cplc6XARQ Dopp: | | 4.64 l/minHR: 113.49 BPMLVOT [...] A Navid: | | 0.79 m/sTV Dec Mccook: 3.98 m/s2TV Dec Time: 144.60 msTV E Navid: 0.57 m/sTV E/A | | Ratio: 0.72 Millwright Instructor: MIKAuthenticated by: Luis Manuel Nam Date/Time: | [...] | |D-E Excursion: 1.64 cm | |E-F Mccook: 0.06 m/s | |EPSS: 1.30 cm | [...] A Navid: 0.79 m/s | |TV Dec Mccook: 3.98 m/s2 | |TV Dec Time: 144.60 ms | |TV E Navid: 0.57 m/s | |TV E/A Ratio: 0.72 | | | |Millwright Instructor: KAHLIL | |Authenticated by: Luis Manuel Santana [...] | Testing performed at | | | [facility];[address] [facility];[place] [address] CULTURE | | | 50,000 TO 100,000 CFU/ML KRISTINA GLABRATAAbnormal | | | Testing performed | | | at [facility], [address] [place] [address] REPORT STATUS | | | 10/23/2011 FINAL [...]
--- OUTSIDE RECORDS SUMMARY | ~2019-10-02 | XMS | Encounter Summary ---
Demographics + + + | Address | [address] | | | [place] [address] | + + + | Home Phone | | + + + | Preferred Language | Unknown | + + + | Marital Status | Single | + + + | Christian Affiliation | 1041 | + + + | Race | Unknown | + + + | Ethnic Group | Unknown | + + + Author + + + | Author | [facility] | | | and [place] | + + + | Organization | [facility] | | | and [place] | + + + | Address | Unknown | + + + | Phone | Unavailable | + + + Support + + + + + | Name | Relationship | Address | Phone | + + + + + | Kyaw Woodson | ECON | [place], [place] | | + + + + + | Barbara Cabrera | ECON | Unknown | | + + + + + | Dimple Hathaway | ECON | Unknown | | + + + + + Care Team Providers + +------+ + | Care Environmental Compliance Engineer Name | Role | Phone | + +------+ + | No, Physician | PCP | Unavailable | + +------+ + Encounter Details +--------+ + + + + | Date | Type | Department | Care Team | Description | +--------+ + + + + | 01/18/ | Orders Only | [facility] | Kei Arthur MD | | | 2018 | | NEPHROLOGY [place] | [address] [place] | | | | | [address] [place] | [address] [place], [place] | | | | | [address] [facility] [place] [place] | [address] | | | | | [address] | | | | | | [phone] | | | +--------+ + + + [...] | | | | | [address] | | | | | | [place] | | | | | | [address] | | | | | | | [...] | | | | | [place] [address] | | | | | | [phone] | | | | | | | | +--------+ + + + + | 11/25/ | Office | Nephrology | Kei Arthur MD | | | 2019 | Visit | | [address] [facility] | | | | | | [address] [place] | | | | | | [address] | | | | | | | [...] | | | LAB | | | [place] | | | | | + + [...]
--- OUTSIDE RECORDS SUMMARY | ~2019-10-02 | XMS | Encounter Summary ---
Demographics + + + | Address | [address] | | | [place] [address] | + + + | Home Phone [...] + + + | Author | [facility] | | | and [place] | + + + | Organization | [facility] | | | and [place] | + + + | Address | Unknown | + + + | Phone | Unavailable | + + + Support + + + + + | Name | Relationship | Address | Phone | + + + + + | Kyaw Woodson | ECON | [place], [place] | | + + + + + | Barbara Cabrera | ECON | Unknown | | + + + + + | Dimple Hathaway | ECON | Unknown | | + + + + + Care Team Providers + +------+ + | Care Air Grinder Name | Role | Phone | + +------+ + | No, Physician | PCP | Unavailable | + +------+ + Encounter Details +--------+ + + + + | Date | Type | Department | Care Team | Description | +--------+ + + + + | 07/27/ | Orders Only | [facility] | Kei Arthur MD | | | 2018 | | NEPHROLOGY [place] | [address] [place] | | | | | [address] [place] | [address] [place], [place] | | | | | [address] [facility] [place] | [address] | | | | | [address] | | | | | | [phone] | | | +--------+ + + + [...] [place] | | | | | | [address] | | | | | | | [...] | | | | | [place] [id number] | | | | | | [phone] | | | | | | | | +--------+ + + + + | 11/25/ | Office | Nephrology | Kei Arthur MD | | | 2019 | Visit | | [address] [facility] | | | | | | [address] [place] | | | | | | [address] | | | | | | | | +--------+ + + + + documented as of this encounter Procedures + +--------+ + + + | Procedure Name | Priori | Date/Time | Associated Diagnosis | Comments | | | ty | | | | + +--------+ + + + | CBC WITH MANUAL | Routin | 07/27/2018 | | Results for this | | DIFFERENTIAL | e | 12:00 AM | | procedure are in the | | | | PST | | results section. | + +--------+ + + + | URINALYSIS WITH | Routin | 07/27/2018 | | Results for this | | MICROSCOPIC IF | e | 12:00 AM | | procedure are in the | | INDICATED | | PST | | results section. | + +--------+ + + + | PROTEIN/CREATININE | Routin | 07/27/2018 | | Results for this | | RATIO, URINE | e | 12:00 AM | | procedure are in the | | | | PST | | results section. | + +--------+ + + + | PARATHYROID HORMONE, | Routin | 07/27/2018 | | Results for this | | INTACT | e | 12:00 AM | | procedure are in the | | | | PST | | results section. | + +--------+ + + + | MAGNESIUM | Routin | 07/27/2018 | | Results for this | | | e | 12:00 AM | | procedure are in the | | | | PST | | results section. | + +--------+ + + + | RENAL FUNCTION PANEL | Routin | 07/27/2018 | | Results for this | | | e | 12:00 AM | | procedure are in the | | | | PST | | results section. | + +--------+ + + + documented in this encounter Results Protein/Creatinine Ratio, Urine (07/27/2018 12:00 AM PST) + + + + + + | Component | Value | Ref Range | Performed | Pathologist | | | | | At | Signature | + + + + + + | Protein/Cre | 653.8 (A) | 0 - 150 | EXTERNAL [...] + + Urinalysis with Microscopic if Indicated (07/27/2018 12:00 AM PST) + + + + + + | Component | Value | Ref Range | Performed | Pathologist | | | | | At | Signature | + + + + + + | Color | Yellow | | EXTERNAL | | | | | | LAB | | + + + + + + | Clarity | Slightly Cloudy | | EXTERNAL | | | | | | LAB | | + + + + + + | Spec Grav, | 1.008 | 1.005 - 1.030 | EXTERNAL | | | Fluid | | | LAB | | + + + + + + | Leukocyte | Comment: small | | EXTERNAL | | | Esterase, [...] + + + + | Total | negative | | EXTERNAL | | | Protein | | | LAB | | + + + + + + | pH, Urine | 6 | 5 - 9 | EXTERNAL | | | | | | LAB | | + + + + + + | Blood, | Negative | | EXTERNAL | | | Urine | | | LAB | | + + + + + + | Ketones | negative | | EXTERNAL | | | | [...] | | + +---------+ + + CBC with Manual Differential (07/27/2018 12:00 AM PST) + + + + + + | Component | Value | Ref Range | Performed | Pathologist | | | | | At | Signature | + + + + + + | WBC | 11 | 4.5 - 11 10 | EXTERNAL | | | | | | LAB | | + + + + + + | RED CELL | 3.51 (A) | 3.8 - 5.1 10 | EXTERNAL | | | COUNT | | | LAB | | + + + + + + | Hgb | 11 (A) | 12 - 16 g/dL | EXTERNAL | | | | | | LAB | | + + + + + + | Hematocrit, | 33.8 (A) | 35 - 45 % | EXTERNAL | | | POC | | | LAB | | + + + + + + | MCV | 96.4 | 81 - 99 fL | EXTERNAL [...] + + + + | RDW-CV | 15.5 (A) | 10.5 - 15 % | EXTERNAL | | | | | | LAB | | + + + + + + | Platelet | | K/ L | EXTERNAL | | | [...] / L | EXTERNAL | | | Neutrophils | | | LAB | | + [...] + +---------+ + + Parathyroid Hormone, Intact (07/27/2018 12:00 AM PST) + + + + + + | Component | Value | Ref Range | Performed | Pathologist | | | | | At | Signature | + + + + + + | PTH INTACT | 192.1 (A) | 15 - 65 pg/mL | [...] | | + +---------+ + + Magnesium (07/27/2018 12:00 AM PST) + +-------+ + + [...] + +---------+ + + Renal Function Panel (07/27/2018 12:00 AM PST) + + + + [...] + + + + | PHOSPHORUS | 3.5 | 2.5 - 5.0 mg/dL | EXTERNAL [...] + + + | Anion Gap | 24.6 (A) | 7 - 21 mmol/L | EXTERNAL | | | | | | LAB | | + + + + + + | eGFR if not | | | EXTERNAL | | | | | | LAB | | | GREEK | | | | | + + + + + + | Phosphorus, | | | EXTERNAL | | | Inorganic | | | LAB | | + + + + + + | BUN/Creatin | 17.5 | 6 - 28.6 | EXTERNAL | | | [...]
--- OUTSIDE RECORDS SUMMARY | ~2019-10-02 | XMS | Clinical Summary ---
Demographics + + + | Address | [address] | | | [place] [address] | + + + | Home Phone | | + + + | Preferred Language | Unknown | + + + | Marital Status | Single | + + + | Adventist Affiliation | 1041 | + + + | Race | Unknown | + + + | Ethnic Group | Unknown | + + + Author + + + | Author | [email or web address] (Historical as of | | | 05-05-19) | + + + | Organization | [employer] [facility] (Historical as of | | | 05-05-19) | + + + | Address | Unknown | + + + | Phone | Unavailable | + + + Support + + +---------+ + | Name | Relationship | Address | Phone | + + +---------+ + | Kayw Woodson | ECON | Unknown | | + + +---------+ + | Barbara Cabrera | ECON | Unknown | | + + +---------+ + Care Team Providers + +------+ + | Care Nursing Department Chairperson Name | Role | Phone | + +------+ + | Daniel Land | PP | | + +------+ + Allergies + + + + + + | Active Allergy | Reactions | Severity | Noted | Comments | | | | | Date | | + + + + + + | Meperidine | Rash | Medium | 10/18/19 | Patient has | | | | | [...] + + + Current Medications + + +---------+---------+------+------+-------+ | Prescription | Sig. | Disp. | Refills | Star | End | Statu | | | | | | t | Date | s | | | | | | Date | | | + + +---------+---------+------+------+-------+ | aspirin 81 MG | Take 81 mg by mouth | | | | | Activ | | chewable tablet | daily. | | | | | e | + + +---------+---------+------+------+-------+ | B complex vitamins | Take 1 tablet by | | | | | Activ | | tablet | mouth daily. | | | | | e | + + +---------+---------+------+------+-------+ | Multiple Vitamin | Take 1 tablet by | | | | | Activ | | (MULTIVITAMIN) | mouth daily. | | | | | e | | tablet | | | | | | | + + +---------+---------+------+------+-------+ | Cholecalciferol | Take 1 tablet by | | | | | Activ | | (VITAMIN D-3) 5000 | mouth daily. | | | | | e | | UNITS TABS | | | | | | | + + +---------+---------+------+------+-------+ | dexlansoprazole | Take 60 mg by mouth | | | | | Activ | | (DEXILANT) 60 MG | every morning before | | | | | e | | capsule | breakfast. | | | | | | + + +---------+---------+------+------+-------+ | acetaminophen | Take 500 mg by mouth | | | | | Activ | | (TYLENOL) 500 MG | every 6 (six) hours | | | | | e | | tablet | as needed for Pain. | | | | | | + + +---------+---------+------+------+-------+ | ascorbic acid | Take 1,000 mg by | | | | | Activ | | (VITAMIN C) 1000 MG | mouth daily. | | | | | e | | tablet | | | | | | | + + +---------+---------+------+------+-------+ | potassium chloride | 10 mEq daily. | | | 06/2 | | Activ | | (K-TAB) 10 MEQ CR | | | | 9/20 | | e | | tablet | | | | 18 | | | + + +---------+---------+------+------+-------+ | insulin regular | Inject 0.32 mLs into | 28 mL | 11 | 07/0 | | Activ | | human CONCENTRATED | the skin 3 (three) | | | 2/20 | | e | | (HUMULIN R U-500 | times daily with | | | 18 | | | | KWIKPEN) 500 UNIT/ML | meals. | | | | | | | pen injection | | | | | | | + + +---------+---------+------+------+-------+ | ferrous sulfate, | TAKE ONE TABLET BY | 60 | 2 | 10/0 | | Activ | | 65 FE, 324 (65 Fe) | MOUTH TWICE DAILY | tablet | | 4/20 | | e | | MG EC tablet | WITH MEALS | | | 18 | | | + + +---------+---------+------+------+-------+ | fenofibrate 160 MG | Take 1 tablet by | 90 | 3 | 10/1 | | Activ | | tablet | mouth daily. | tablet | | 7/20 | | e | | | | | | 18 | | | + + +---------+---------+------+------+-------+ | venlafaxine | | | | 11/ | | Activ | | (EFFEXOR-XR) 150 MG | | | | 1/20 | | e | | 24 hr capsule | | | | 18 | | | + + +---------+---------+------+------+-------+ | azithromycin | Take 1 tablet by | 7 | 0 | /3 | | Activ | | (ZITHROMAX) 500 MG | mouth daily. | tablet | | 0/20 | | e | | tablet | | | | 19 | | | + + +---------+---------+------+------+-------+ | albuterol (PROAIR | Inhale 2 puffs into | 1 | 3 | 01/3 | | Activ | | HFA) 108 (90 Base) | the lungs every 4 | Inhaler | | 0/20 | | e | | MCG/ACT inhaler | (four) hours as | | | 19 | | | | | needed. | | | | | | + + +---------+---------+------+------+-------+ | nitroGLYCERIN | DISSOLVE ONE TABLET | 25 | 51 | 02/1 | | Activ | | (NITROSTAT) 0.4 MG | UNDER THE TONGUE | tablet | [...] | | | | | + + +---------+---------+------+------+-------+ | metoprolol | Take 1 tablet by | 180 | 3 | 02/2 | | Activ | | (TOPROL-XL) 100 MG | mouth 2 (two) times | tablet | | 0/20 | | e | | 24 hr tablet | daily. | | | 19 | | | + + +---------+---------+------+------+-------+ | sodium bicarbonate | TAKE 2 TABLETS BY | 540 | 3 | 04/1 | | Activ | | 650 MG | MOUTH THREE TIMES | tablet | | 7/20 | | e | | tabletIndications: | DAILY | | | 19 | | | | Stage 4 chronic | | | | | | | | kidney disease | | | | | | | | ([facility]), Electrolyte | | | | | | | | imbalance risk | | | | | | | + + +---------+---------+------+------+-------+ | torsemide | TAKE 2 TABLETS BY | 360 | 1 | 01/17 | | Activ | | (DEMADEX) 20 MG | MOUTH TWICE DAILY | tablet | | 11/08 | | e | | tablet | | | | 19 | | | + + +---------+---------+------+------+-------+ | allopurinol | Take 1 tablet by | 30 | 11 | 03/19 | 03/19 | Activ | | (ZYLOPRIM) 300 MG | mouth daily. | tablet | | /20 | 01/06 | e | | tabletIndications: | | | | 19 | 20 | | | CKD (chronic kidney | | | | | | | | disease), stage IV | | | | | | | | ([facility]), Essential | | | | | | | | hypertension, benign | | | | | | | + + +---------+---------+------+------+-------+ | oxyCODONE | Take 1 tablet by | 10 | 0 | 08/0 | | Activ | | (ROXICODONE) 5 MG | mouth every 4 (four) | tablet | | 8/20 | | e | | immediate release | hours as needed for | | | 19 | | | | tablet | Pain (6 to 7). | | | | | | + + +---------+---------+------+------+-------+ | oxyCODONE 10 MG | Take 1 tablet by | 10 | 0 | 08/0 | | Activ | | tablet | mouth every 4 (four) | tablet | | 8/20 | | e | | | hours as needed (8 | | | 19 | | | | | to 10). | | | | | | + + +---------+---------+------+------+-------+ Active Problems + + + | Problem | Noted Date | + + + | Chest pain | 04/21/2019 | + + + | Non-traumatic rhabdomyolysis | 04/21/2019 | + + + | Hyperkalemia | 04/18/2019 | + + + | Skin ulcer of finger, limited to breakdown of skin (HCC) | 04/17/2019 | + + + | Lactic acidosis | 04/14/2019 | + + + + + | Overview: resoved LA is 2. 0 | + + + + + | Hyponatremia | 04/14/2019 | + + + + + | Overview: 04/16 RESOLVED Na 135 | + + + + + | Sepsis (HCC) | 04/13/2019 | + + + + + | Overview: Wet Gangrene Rt LE now s/p AKA Amputation | + + + + + | Septic shock (HCC) | 04/13/2019 | + + + + + | Overview: HAD B HEMOLYTIC STERP IN BLOOD AND WOUND CULT | | On Vanco and clinda | | 04/16 Now Rocephin per ID recommendation | + + + + + | Gangrene of extremity (HCC) | 04/13/2019 | + + + + + | Overview: Now s/p MAN ERIC VASC SURGERY | + + + + + | Hyperkalemia | 04/13/2019 | + + + + + | Overview: Resolved K 4.7 | + + + + + | Ischemic cardiomyopathy | 03/08/2018 | + + + + + | Overview: WILL MONITOR NIL CHEST PAIN NOW | | On Lipitor 80 mg | + + + + + | Secondary hyperparathyroidism (HCC) | 11/21/2017 | + + + | Electrolyte imbalance risk | 11/21/2017 | + + + | 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 | 11/17/2017 | + + + + + | Overview: Last Assessment & Plan: | | With evidence of cnvm on FA, OCT and exam OU | | PARQ Avastin today | + + + + + | Iron deficiency anemia | 06/19/2016 | + + + | Localized edema | 06/19/2016 | + + + | Abrasion | 06/16/2016 | + + + | Type 2 diabetes mellitus with diabetic nephropathy, with | 06/16/2016 | | long-term current use of insulin (HCC) | | + + + + + | Overview: Sugars controlled | | Basal BID Meal and correction Bolus | + + + + + | Iron deficiency | 06/07/2016 | + + + | ICD (implantable cardioverter-defibrillator), single, in situ | 11/05/2015 | + + + + + | Overview: Hx Pacemaker/ICD: initial implant 12/12/2012, lead | | failure, replaced with [employer] 1010 SQ-device 06/18/2013 | | SN: [id number] (SQ ICD). Last Assessment & Plan: ICD, | | indication, primary prevention, severe LV systolic | | dysfunction.Initial implant 12/12/2012, lead failure. Replaced | | with subcutaneous device, 06/18/2013, [employer] 1010 | | SQ-Rx, SN: [id number] (SQ ICD).Last interrogation, 06/30/2015: | | battery at 74%, device stable, no Rx. | + + + + + | Hyperuricemia | 10/20/2015 | + + + | Persistent proteinuria | 08/25/2015 | + + + | Anemia of chronic renal failure, stage 4 (severe) (HCC) | 08/25/2015 | + + + | CKD (chronic kidney disease), stage IV | 06/02/2015 | + + + + + | Overview: Stable creatinine 2.5 Last Assessment & Plan: | | CKD, Stage 4, followed by Dr Arthur.Labs, 02/18/2016: K: 4.3, Na: | | 135, BUN/Cr: 30/2.0 (GFR 27), glu: 255, M.9 | | WBC: 11.7, H/H: 10.1/31.5, plt: 464 | + + + + + | Metabolic acidosis | 06/02/2015 | + + + + + | Overview: CO2 better 23 now AG normal | + + + + + | Vitamin D deficiency | 06/02/2015 | + + + | Dyslipidemia | 10/05/2012 | + + + + + | Last Assessment & Plan: Hyperlipidemia, continue current meds | | at current doses (atorvastatin, fenofibrate). Labs anticipated. 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 Ceja in [place] 06/30/2015 : battery | | 74%, device stable , no changes Last Cath, 10/05/2012: left main | | OK, prox-LAD occluded, LCx stent patent, distal RCA occluded. | | LVEF 30-35%. Last Assessment & Plan: 2V-CAD, Hx PCI/stent, Hx | | anterior W[place], LVEF 35-40%. 46yo WF, weight up, edema is | | unchanged, overall functional capacity unchanged, mild exertional | | shortness of breath, but no orthopnea or PND. No chest | | discomfort. Pulse is now down less than 100 on a regular basis. | | We decided not to make any changes in her medicines at this | | time, her blood pressure is relatively soft, although at home her | | systolic blood pressure is between 100-110mmHg. We'll continue | | to follow clinically. At our next visit, consider adding | | hydralazine/isosorbide.Hx CABG: noHx PCI/stent: 10/21/2011, LCx | | (3.0*12mm Vision).Hx Pacemaker/ICD: initial implant 12/12/2012, | | lead failure, replaced with [employer] 1010 SQ-Rx, SN: | | [id number] (SQ ICD).Last Cath, 10/05/2012: left main OK, prox-LAD | | occluded, LCx stent patent, distal RCA occluded. LVEF | | 30-35%.Last Echo, 11/05/2015: LV dimensions NML, large apical | | akinesis, LVEF 35-40%, mild MR, trace TR.Last Stress Test: naECG, | | 11/30/2015 ([facility]): sinus tachycardia, 120bpm, old | | anterior-septal W[place], incomplete RBBB pattern. | + + + + + | Left leg pain | 10/18/2011 | + + + | Essential hypertension, benign | 10/18/2011 | + + + + + | Last Assessment & Plan: Hypertension, controlled, continue | | current meds at current dose (furosemide, metoprolol, | | spironolactone). | + + + + + | Morbid obesity (HCC) | 10/18/2011 | + + + + + | Overview: Needs weight loss | + + + + + | Hx of BKA, left ([facility]) | 10/18/2011 | + + + | CHF (congestive heart failure) ([facility]) | 10/18/2011 | + + + + + | Overview: Nil acute comfortable at rest Last Assessment & | | Plan: Hx CHF, ischemic cardiomyopathy. She weighs herself | | daily, avidly avoids salt. She is on metoprolol succinate. In | | future, we hope to be able start her on hydralazine and | | nitroglycerin.Last Echo, 11/05/2015: LV dimensions NML, large | | apical akinesis, LVEF 35-40%, mild MR, trace TR. | + + + +---+ | Group G streptococcal infection | | + +---+ Resolved Problems + + + + | Problem | Noted | Resolved | | | Date | Date | + + + + | Recurrent UTI (urinary tract infection) | 01/24/20 | | | | 18 | 8 | + + + + | Renal failure (ARF), acute on chronic (HCC) | 06/19/20 | | | | 16 | 6 | + + + + | Pressure sore | 06/16/20 | | | | 16 | 7 | + + + + | ERICK (acute kidney injury) | 06/15/20 | | | | 16 | 7 | + + + + | NSTEMI (non-ST elevated myocardial infarction) | 10/05/19 | | | | 13 | 7 | + + + + | Diabetes mellitus ([facility]) | 10/05/19 | | | | 13 | 6 | + + + + | HTN (hypertension) | 10/05/19 | | | | 13 | 5 | + + + + | Intravenous drug abuse (HCC) | 10/18/19 | | | | 12 | 7 | + + + + | Type 1 diabetes mellitus with nephropathy ([facility]) | 10/18/19 | | | | 12 | 6 | + + + + + + | Last Assessment & Plan: DM1, managed by PCP. | + + Immunizations + + + + | Name | Dates Previously Given | Next Due | + + + + | Influenza Split | 10/19/2011 | | + + + + Family History + + +------+ + | Medical History | Relation | Name | Comments | + + +------+ + | Hypertension | Brother | | | + + +------+ + | Cancer | Father | | Prostate | + + +------+ + | Diabetes type II | Father | | | + + +------+ + | Cancer | Mother | | | + + +------+ + | Diabetes type II | Mother | | | + + +------+ + | Hypertension | Mother | | | + + +------+ + | Diabetes type II | Sister | | | + + [...] + +------+ + + Social History + + + +--------+ + | Tobacco Use | Types | Packs/Day | Years | Date | | | | | Used | | + + + +--------+ + | Former Smoker | Cigarettes | 0.5 | 15 | Quit: 09/19/2015 | + + + +--------+ + + +---+---+---+ | Smokeless Tobacco: | | | | | Never Used | | | | + +---+---+---+ + + +---------+ + | Alcohol Use | Drinks/We | oz/Week | Comments | | | ek | | | + + +---------+ + | No | 0 | 0.0 | | | | Standard | | | | | drinks or | | | | | | | | | | equivalen | | | | | t | | | + + +---------+ + + + + | Sex Assigned at | Date Recorded | | | | + + + | Not on file | | + + + Last Filed Vital Signs + + + + | Vital Sign | Reading | Time Taken | + + + + | Blood Pressure | 102/49 | 04/26/2019 11:30 AM PDT | + + + + | Pulse | 100 | 04/26/2019 8:07 AM PDT | + + + + | Temperature | 37 C (98.6 F) | 04/26/2019 11:30 AM PDT | + + + + | Respiratory Rate | 16 | 04/26/2019 11:30 AM PDT | + + + + | Oxygen Saturation | 97% | 04/26/2019 11:30 AM PDT | + + + + | Inhaled Oxygen | - | - | | Concentration | | | + + + + | Weight | 122.6 kg (270 lb 4.8 | 04/23/2019 11:42 AM PDT | | | oz) | | + + + + | Height | 177.8 cm (5' 10") | 04/17/2019 3:37 PM PDT | + + + + | Body Mass Index | 38.78 | 04/23/2019 11:42 AM PDT | + + + + Plan of Treatment + + + + + | Health Maintenance | Due Date | Last Done | Comments | + + + + + | Diabetic Foot Exam | | | | | | 1 | | | + + + + + | Vaccine: | | | | | Dtap/Tdap/Td (1 - | 0 | | | | Tdap) | | | | + + + + + | Vaccine: | | | | | Pneumococcal 19-64 | 0 | | | | Highest Risk (1 of 3 | | | | | - PCV13) | | | | + + + + + | Cervical Cancer | | | | | Screening (Pap) | 1 | | | + + + + + | Vaccine: Influenza | | | | | (#1) | 9 | | | + + + + + | Hemoglobin A1c | | 04/14/2019, 03/09/2018, | | | | 0 | 03/09/2018, Additional history | | | | | exists | | + + + + + | Diabetic Eye Exam | | 03/16/2018 | | | | 0 | | | + + + + + Results Not on filefrom Last 3 Months Insurance + +--------+ +------+-------+ + | Payer | Benefi | Subscriber | Type | Phone | Address | | | t Plan | ID | | | | | | / | | | | | | | Group | | | | | + +--------+ +------+-------+ + | MEDICARE | MEDICA | [id number] | | | [address] | | | RE | | | | [place] [address] | | | IP-OP | | | | | + +--------+ +------+-------+ + | MEDICAID | MEDICA | [id number] | | | [address] | | | ID | | | | [place], [place] | | | [place] | | | | [phone] | + +--------+ +------+-------+ + + +--------+ +--------+ + + | Guarantor Name | [employer]oun | Relation to | Date | Phone | Billing Address | | | t Type | Patient | of | | | | | | | | | | + +--------+ +--------+ + + | ADAM HINTON | Person | Self [birth year] Home: | [address] | | | al/Fam | | 1970 | [phone] | [address] [place], | | | [place] | | | [phone] | [place] [phone] | + +--------+ +--------+ + +
--- OUTSIDE RECORDS SUMMARY | ~2019-10-02 | XMS | Encounter Summary ---
Demographics + + + | Address | [address] | | | [place] [address] | + + + | Home Phone | | + + + | Preferred Language | Unknown | + + + | Marital Status | Single | + + + | Uatsdin Affiliation | 1041 | + + + | Race | Unknown | + + + | Ethnic Group | Unknown | + + + Author + + + | Author | [facility] | | | and [place] | + + + | Organization | [facility] | | | and [place] | + + + | Address | Unknown | + + + | Phone | Unavailable | + + + Support + + + + + | Name | Relationship | Address | Phone | + + + + + | Kyaw Woodson | ECON | [place], [place] | | + + + + + | Barbara Cabrera | ECON | Unknown | | + + + + + | Dimple Hathaway | ECON | Unknown | | + + + + + Care Team Providers + +------+ + | Care Slug Press Operator Name | Role | Phone | + +------+ + | Daniel Land NP | PCP | | + +------+ + Encounter Details +--------+ + + + + | Date | Type | Department | Care Team | Description | +--------+ + + + + | 04/02/ | Orders Only | [facility] | Nasreen Marin | | | 2014 | | NEPHROLOGY [place] | [address] | | | | | [address] | [address] | | | | | [address] | [place] [address] | | | | | [address] | [phone] | | | | | [phone] | | | +--------+ + + + [...] [address] | | | | | | [address] | | | | | | [place] | | | | | | [address] | | | | | | | [...] 206 | | | | | | [place] [address] | | | | | | [phone] | | | | | | | | +--------+ + + + + | 11/25/ | Office | Nephrology | Kei Arthur MD | | | 2019 | Visit | | [address] | | | | | | [facility] | | | | | | [address] | | | | | | | | +--------+ + + + + documented as of this encounter Procedures + +--------+ + + + | Procedure Name | Priori | Date/Time | Associated Diagnosis | Comments | | | ty | | | | + +--------+ + + + | IRON AND IRON | Routin | 04/02/2015 | | Results for this | | BINDING CAPACITY | e | 12:00 AM | | procedure are in the | | | | PDT | | results section. | + +--------+ + + + | LIPID PANEL | Routin | 04/02/2015 | | Results for this | | | e | 12:00 AM | | procedure are in the | | | | PDT | | results section. | + +--------+ + + + | VITAMIN B-12 | Routin | 04/02/2015 | | Results for this | | | e | 12:00 AM | | procedure are in the | | | | PDT | | results section. | + +--------+ + + + | VITAMIN D, | Routin | 04/02/2015 | | Results for this | | DEFICIENCY SCREEN | e | 12:00 AM | | procedure are in the | | (25-HYDROXY) | | PDT | | results section. | + +--------+ + + + | URINALYSIS, | Routin | 04/02/2015 | | Results for this | | MICROSCOPIC ONLY | e | 12:00 AM | | procedure are in the | | | | PDT | | results section. | + +--------+ + + + | MICROALBUMIN/CREATIN | Routin | 04/02/2015 | | Results for this | | INE RATIO, URINE | e | 12:00 AM | | procedure are in the | | TEST | | PDT | | results section. | + +--------+ + + + | TSH | Routin | 04/02/2015 | | Results for this | | | e | 12:00 AM | | procedure are in the | | | | PDT | | results section. | + +--------+ + + + | T4, FREE | Routin | 04/02/2015 | | Results for this | | | e | 12:00 AM | | procedure are in the | | | | PDT | | results section. | + +--------+ + + + | CEA | Routin | 04/02/2015 | | Results for this | | | e | 12:00 AM | | procedure are in the | | | | PDT | | results section. | + +--------+ + + + | COMPREHENSIVE | Routin | 04/02/2015 | | Results for this | | METABOLIC PANEL | e | 12:00 AM | | procedure are in the | | | | PDT | | results section. | + +--------+ + + + | COMPREHENSIVE | Routin | 03/27/2014 | | Results for this | | METABOLIC PANEL | e | 12:00 AM | | procedure are in the | | | | PDT | | results section. | + +--------+ + + + documented in this encounter Results Iron and Iron Binding Capacity (04/02/2015 12:00 AM PDT) + + + + + + | Component | Value | Ref Range | Performed | Pathologist | | | | | At | Signature | + + + + + + | Iron | 47 | 37 - 160 | EXTERNAL | | | | | | LAB | | + + + + + + | Iron | 12.3 (A) | 20 - 55 | EXTERNAL | | | Saturation | | | LAB | | + + + + + + | TIBC | 381 | 245 - 400 | EXTERNAL | [...] | | | + +---------+ + + Microalbumin/Creatinine Ratio, Urine (04/02/2015 12:00 AM PDT) + +-------+ + + + | Component | Value | Ref Range | Performed | Pathologist | | | | | At | Signature | + +-------+ + + + | ALBUMIN/CRE | 14.9 | 0 - 30 | EXTERNAL | | | ATININE | | | LAB | | | RATIO.URINE | | | | | | .ORD.MG/G | | | | | | (AMISH) | | | | | | | | | | | | | | | | | + +-------+ + + [...] + + Vitamin D, Deficiency Screen (25-Hydroxy) (04/02/2015 12:00 AM PDT) + +--------+ + + + [...] + +---------+ + + Urinalysis, Microscopic Only (04/02/2015 12:00 AM PDT) + + + + [...] + + | Specific | 1.011 | 1.005 - 1.030 | EXTERNAL | | | [place] | | | LAB | | + [...] + + + + | Protein, | 1+Comment: 25 | | EXTERNAL | | | Urine [...] + + + + | Glucose, | 1+Comment: 50 | | EXTERNAL | | | [...] | | + +---------+ + + TSH (04/02/2015 12:00 AM PDT) + + + + + + | Component | Value | Ref Range | Performed | Pathologist | | | | | At | Signature | + + + + + + | TSH | 5.33 (A) | 0.270 - 4.20 | EXTERNAL | | | | | uIU/mL | LAB | | + + + + + + + + | Specimen | + + | Blood specimen | | (specimen) | + + + +---------+ + + | Performing | Address | City/State/Zipcode | Phone Number | | Organization | | | | + +---------+ + + | EXTERNAL LAB | | | | + +---------+ + + T4, Free (04/02/2015 12:00 AM PDT) + +-------+ + + + | Component | Value | Ref Range | Performed | Pathologist | | | | | At | Signature | + +-------+ + + + | FREE T4 | 1.19 | 0.71 - 1.7 | EXTERNAL | | | (REF) | | | LAB | | + [...] | + +---------+ + + Vitamin B-12 (04/02/2015 12:00 AM PDT) + +-------+ + + + | Component | Value | Ref Range | Performed | Pathologist | | | | | At | Signature | + +-------+ + + + | VITAMIN | 305.1 | 211 - 946 | EXTERNAL | | | B-12 | [...] | | | + +---------+ + + CEA (04/02/2015 12:00 AM PDT) + +-------+ + + + | Component | Value | Ref Range | Performed | Pathologist | | | | | At | Signature | + +-------+ + + + | CEA | 1.80 | 0 - 3.8 | EXTERNAL | | | | | [...] | + +---------+ + + Lipid Panel (04/02/2015 12:00 AM PDT) + + + + + + | Component | Value | Ref Range | Performed | Pathologist | | | | | At | Signature | + + + + + + | Cholesterol | 225 (A) | 200 mg/dL | EXTERNAL | | | | | | LAB | | + + + + + + | Triglycerid | 535 (A) | 30 - 150 mg/dL | EXTERNAL | | | es | | | LAB | | + + + + + + | HDL | 30.5 (A) | 40 mg/dl | EXTERNAL | [...] + + + + | Chol/HDL | 7.4 (A) | 4.44 | EXTERNAL | | | Ratio | | | LAB | | + + + + + + | VLDL | | mg/dL | EXTERNAL | | | | | | LAB | | + + + + + + | Non HDL | 195 (A) | 130 | EXTERNAL | | [...] + +---------+ + + Comprehensive Metabolic Panel (04/02/2015 12:00 AM PDT) + + + + + + | Component | Value | Ref Range | Performed | Pathologist | | | | | At | Signature | + + + + + + | Glucose, | 191 (A) | 70 - 100 mg/dL | EXTERNAL | | | Fasting | | | LAB | | + + + + + + | BUN | 20 | 6 - 23 mg/dL | EXTERNAL | | | | | | LAB | | + + + + + + | Creatinine | 2.40 (A) | 0.60 - 1.35 | EXTERNAL | | | | | mg/dL | LAB | | + + + + + + | BUN/Creatin | 8.3 | 8.0 - 28.6 | EXTERNAL | | | [...] + + + + | ALP, | 46 | 30 - 128 | EXTERNAL | | | External | | | LAB | | + + + + + + | ALT | 18 | 7 - 52 U/L | EXTERNAL [...] Estimated | 22 (A) | 60 - 120 mg/dL | EXTERNAL | | | GFR [...] + +---------+ + + Comprehensive Metabolic Panel (03/27/2014 12:00 AM PDT) + +---------+ + + + | Component | Value | Ref Range | Performed | Pathologist | | | | | At | Signature | + +---------+ + + + | Glucose, | 175 (A) | 70 - 100 mg/dL | EXTERNAL | | | Fasting | | | LAB | | + +---------+ + + + | BUN | 8 | 6 - 23 mg/dL | EXTERNAL | | | | | | LAB | | + +---------+ + + + | Creatinine | 0.79 | 0.50 - 1.50 | EXTERNAL | | | | | mg/dL | LAB | | + +---------+ + + + | BUN/Creatin | 10.1 | 6.0 - 28.6 | EXTERNAL | | | ine Ratio | | | LAB | | + +---------+ + + + | Calcium | 9.3 | 8.4 - 10.2 | EXTERNAL | | | | | mg/dL | LAB | | + +---------+ + + + | Protein, | 7.4 | 6.0 - 8.0 g/dL | EXTERNAL | | | Total | | | LAB | | + +---------+ + + + | Albumin | 4.2 | 3.5 - 5.0 | EXTERNAL | | | | | | LAB | | + +---------+ + + + | Globulin | 3.2 | 1.8 - 3.5 | EXTERNAL | | | | | | LAB | | + +---------+ + + + | A/G Ratio | 1.3 | 1.1 - 2.4 | EXTERNAL | | | | | | LAB | | + +---------+ + + + | Bilirubin | 0.5 | 0.0 - 1.2 mg/dL | EXTERNAL | | | Total | | | LAB | | + +---------+ + + + | ALP, | 63 | 30 - 128 | EXTERNAL | | | External | | | LAB | | + +---------+ + + + | ALT | 16 | 7 - 52 U/L | EXTERNAL | | | | | | LAB | | + +---------+ + + + | AST | 21 | 13 - 39 U/L | EXTERNAL | | | | | | LAB | | + +---------+ + + + | Na | 137 | 132 - 143 | EXTERNAL | | | | | mmol/L | LAB | | + +---------+ + + + | K | 3.2 (A) | 3.6 - 5.1 | EXTERNAL | | | | | mmol/L | LAB | | + +---------+ + + + | Cl | 99 | 95 - 112 mmol/L | EXTERNAL | | | | | | LAB | | + +---------+ + + + | CO2 | 25 | 19 - 31 mmol/L | EXTERNAL | | | | | | LAB | | + +---------+ + + + | Anion Gap | 16.2 | 7 - 21 mmol/L | EXTERNAL | | | | | | LAB | | + +---------+ + + + | Estimated | 79 | 60 - 120 mg/dL | EXTERNAL | | | GFR [...]
--- OUTSIDE RECORDS SUMMARY | ~2019-10-02 | XMS | Encounter Summary ---
Demographics + + + | Address | [address] | | | [place] [address] | + + + | Home Phone | | + + + | Preferred Language | Unknown | + + + | Marital Status | Single | + + + | Congregational Affiliation | UNK | + + + | Race | White | + + + | Ethnic Group | Not or | + + + Author + + + | Author | [facility] | + + + | Organization | [facility] | + + + | Address | Unknown | + + + | Phone | Unavailable | + + + Support + + +---------+ + | Name | Relationship | Address | Phone | + + +---------+ + | Valentine Qiu | ECON | Unknown | | + + +---------+ + Care Team Providers + +------+ + | Care Housing Director Name | Role | Phone | [...] | 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 | [address] | [place], [place] | | | | | | Road [address] | [address] | | | | | | [address] | Phone: | | | | | | [place], [place] | [phone] | | | | | | [address] | Fax: | | | | | | Phone: | [phone] | | | | | | [phone] | | | | | | | Fax: | | | | | | | [phone] | | +--------+--------+ + + + + Encounter Details +--------+ + + + + | Date | Type | Department | Care Team | Description | +--------+ + + + + | 12/23/ | Procedure | [facility] | | Visual field testing | | 2017 | | [facility] | | | | | | [facility] | | | | | | [address] | | | | | | Mailcode: WEST | | | | | | [place] [address] | | | | | | [phone] | | | +--------+ + + + [...] PDT Alondra Caballero was seen in the [facility] today, 12/23/2016. Pt was [...]
--- OUTSIDE RECORDS SUMMARY | ~2019-10-02 | XMS | Encounter Summary ---
Demographics + + + | Address | [address] | | | [place] [address] | + + + | Home Phone [...] Organization | [facility] | | | and [place] | + + + | Address | Unknown | + + + | Phone | Unavailable | + + + Support + + + + + | Name | Relationship | Address | Phone | + + + + + | Kyaw Woodson | ECON | [place], [place] | | + + + + + | Barbara Cabrera | ECON | Unknown | | + + + + + | Dimple Hathaway | ECON | Unknown | | + + + + + Care Team Providers + +------+ + | Care Nickel Operator Name | Role | Phone | [...] + + | 06/07/ | Procedure | [facility] | | ICD (implantable | | 2019 | visit | CARDIOLOGY [address] | | cardioverter-defibri | | | | [address] | | [place], [place] | | | | [place], [place] | | situ (Primary Dx) | | | | [address] | | | | | | [phone] | | | +--------+ + + + [...] [place] | | | | | | [address] | | | | | | | [...] | | | | | [place] [address] | | | | | | [phone] | | | | | | | | +--------+ + + + + | 11/25/ | Office | Nephrology | Kei Arthur MD | | | 2019 | Visit | | [address] [facility] [address] | | | | | | [address] [address] | | | | | | [address] | | | | | | | [...]
--- OUTSIDE RECORDS SUMMARY | ~2019-10-02 | XMS | Encounter Summary ---
Demographics + + + | Address | [address] | | | [place] [address] | + + + | Home Phone | | + + + | Preferred Language | Unknown | + + + | Marital Status | Single | + + + | Mormon Affiliation | 1041 | + + + | Race | Unknown | + + + | Ethnic Group | Unknown | + + + Author + + + | Author | [facility] | | | and [place] | + + + | Organization | [facility] | | | and [place] | + + + | Address | Unknown | + + + | Phone | Unavailable | + + + Support + + + + + | Name | Relationship | Address | Phone | + + + + + | Kyaw Woodson | ECON | [place], [place] | | + + + + + | Barbara Cabrera | ECON | Unknown | | + + + + + | Dimple Hathaway | ECON | Unknown | | + + + + + Care Team Providers + +------+ + | Care Blueprinting Machine Operator Name | Role | Phone | + +------+ + | No, Physician | PCP | Unavailable | + +------+ + Reason for Visit + + + | Reason | Comments | + + + | Device Check | Battery Check | | (Remote) | | + + + Encounter Details +--------+ + + + + | Date | Type | Department | Care Team | Description | +--------+ + + + + | 06/25/ | Procedure | [facility] | | ICD (implantable | | 2019 | visit | CARDIOLOGY [place] | | cardioverter-defibri | | | | [address] | | [place], [place] | | | | [place], [place] | | situ (Primary Dx) | | | | [address] | | | | | | [phone] | | | +--------+ + + + [...] [place] | | | | | | [address] | | | | | | | | +--------+ + + + + | 10/10/ | Procedure | Cardiology | | | | 2019 | visit | | | | +--------+ + + + + | 10/17/ | Office | Family Medicine | Jerry Yeun, | | | 2019 | Visit | | MD [place]ucky [place] | | | | | | [address] | | | | | | [place] [address] | | | | | | [phone] | | | | | | | | +--------+ + + + + | 11/25/ | Office | Nephrology | Kei Arthur MD | | | 2019 | Visit | | [address] [facility] [address] | | | | | | [address] [place], [place] | | | | | | [address] | | | | | | | | +--------+ + + + + documented as of this encounter Procedures + +--------+ + + + | Procedure Name | Priori | Date/Time | Associated Diagnosis | Comments | | | ty | | | | + +--------+ + + + | DEVICE INTERROGATION | Routin | 06/25/2019 | ICD (implantable | Results for this | | | e | 12:00 AM | cardioverter-defibri | procedure are in the | | | | PDT | llator), single, in | results section. | | | | | situ | | + +--------+ + + + documented in this encounter Results Device Interrogation (06/25/2019 12:00 AM PDT) + + + | Narrative | Performed At | + + + | Chintan Johnson, | [facility] | | Technologist 06/25/2019 15:09Prior to beginning diagnostic | | | procedure, Dr. Avila was identified as provider on the | | | floor/provider of record. SICD Interrogation Name: Alondra Shane | | | JulesOB: 1970Age/Sex: 49 y.o. female Cond. Shock Zone bpm: | | | 200Shock Zone bpm: 220Sensing Vector/Gain: 1XPolarity: STDEpisodes | | | Treated: 0Episodes Untreated: 0 Battery Status %: 7Electrode Imp | | | Status: okNew Reference Template?: YesCaptured Vectors | | | Divya/Sec/Alt/Amplitude: YesReport Printed: YesChest X-Ray: No Changes | | | or Comments: NonePlan: 2 week in office for battery check Tech: Chintan | | | R | | |Sensing Vector/Gain: 1X | | |Polarity: STD | | |Episodes Treated: 0 | | |Episodes Untreated: 0 | | | | | |Battery Status %: 7 | | |Electrode Imp Status: ok | | |New Reference Template?: Yes | | |Captured Vectors Divya/Sec/Alt/Amplitude: Yes | | |Report Printed: Yes | | |Chest X-Ray: No | | | | | |Changes or Comments: None | | |Plan: 2 week in office for battery check | | |Tech: Chintan Jones | | | | | | | | + + + + + | Procedure Note | + + | Chintan Johnson, Technologist - 06/25/2019 2:00 PM PDT Prior to beginning diagnostic | | procedure, Dr. Avila was identified as provider on the floor/provider of record. SICD | | InterrogationName: Alondra Shane JulesOB: 1970Age/Sex: 49 y.o. femaleCond. | | Shock Zone bpm: 200Shock Zone bpm: 220Sensing Vector/Gain: 1XPolarity: STDEpisodes | | Treated: 0Episodes Untreated: 0Battery Status %: 7Electrode Imp Status: okNew Reference | | Template?: YesCaptured Vectors Divya/Sec/Alt/Amplitude: YesReport Printed: YesChest X-Ray: | | NoChanges or Comments: NonePlan: 2 week in office for battery check Tech: Chintan R | |Cond. Shock Zone bpm: 200 | |Shock Zone bpm: 220 | |Sensing Vector/Gain: 1X | |Polarity: STD | |Episodes Treated: 0 | |Episodes Untreated: 0 | | | |Battery Status %: 7 | |Electrode Imp Status: ok | |New Reference Template?: Yes | |Captured Vectors Divya/Sec/Alt/Amplitude: Yes | |Report Printed: Yes | |Chest X-Ray: No | | | |Changes or Comments: None | |Plan: 2 week in office for battery check | |Tech: Chintan R | + + + +---------+ + + [...]
--- OUTSIDE RECORDS SUMMARY | ~2019-10-02 | XMS | Encounter Summary ---
Demographics + + + | Address | [address] | | | [place] [address] | + + + | Home Phone | | + + + | Preferred Language | Unknown | + + + | Marital Status | Single | + + + | Nondenominational Affiliation | 1041 | + + + | Race | Unknown | + + + | Ethnic Group | Unknown | + + + Author + + + | Author | [facility] | | | and [place] | + + + | Organization | [facility] | | | and [place] | + + + | Address | Unknown | + + + | Phone | Unavailable | + + + Support + + + + + | Name | Relationship | Address | Phone | + + + + + | Kyaw Woodson | ECON | [place], [place] | | + + + + + | Barbara Cabrera | ECON | Unknown | | + + + + + | Dimple Hathaway | ECON | Unknown | | + + + + + Care Team Providers + +------+ + | Care Patient Ombudsperson Name | Role | Phone | + +------+ + PCP | Unavailable | + +------+ + Encounter Details +--------+ + + + + | Date | Type | Department | Care Team | Description | +--------+ + + + + | 05/16/ | Orders Only | [facility] | Kei Arthur MD | Essential | | 2019 | | NEPHROLOGY [place] | [address] | hypertension, benign | | | | [address] | [address] [place], [place] | (Primary Dx); CKD | | | | [address] [place], [place] | [address] | (chronic kidney | | | | [address] | | disease) stage 3, | | | | [phone] | | GFR 30-59 ml/min | | [...] [place] | | | | | | [address] | | | | | | | [...] | | | | | [place] [address] | | | | | | [phone] | | | | | | | | +--------+ + + + + | 11/25/ | Office | Nephrology | Kei Arthur MD | | | 2019 | Visit | | [address] [facility] | | | | | | [address] [place], [place] | | | | | | [address] | | | | | | | [...] | | | | | | ml/min ([facility]) | | | | | | Persistent [...] | | | | | | ml/min ([facility]) | | | | | | Persistent [...] | | | | | | ml/min ([facility]) | | | | | | Persistent | | | | | | proteinuria | | + +------+--------+ + + documented as of this encounter Visit Diagnoses + + | Diagnosis | + + | Essential hypertension, benign - Primary | + + | CKD (chronic kidney disease) stage 3, GFR 30-59 ml/min ([facility]) Chronic kidney disease, | | Stage III (moderate) | + + | Persistent proteinuria Proteinuria | + + | Secondary hyperparathyroidism (HCC) Secondary hyperparathyroidism (of renal origin) | + + documented in this encounter"
--- OUTSIDE RECORDS SUMMARY | ~2019-10-02 | XMS | Encounter Summary ---
Demographics + + + | Address | [address] | | | [place] [address] | + + + | Home Phone [...] | Organization | [facility] | | | and [place] | + + + | Address | Unknown | + + + | Phone | Unavailable | + + + Support + + + + + | Name | Relationship | Address | Phone | + + + + + | Kyaw Woodson | ECON | [place], [place] | | + + + + + | Barbara Cabrera | ECON | Unknown | | + + + + + | Dimple Hathaway | ECON | Unknown | | + + + + + Care Team Providers + +------+ + | Care Software Clerk Name | Role | Phone | + +------+ + | Jennyfer Gresham MD | PCP | | + +------+ + Encounter Details +--------+ + + + + | Date | Type | Department | Care Team | Description | +--------+ + + + + | 06/22/ | Orders Only | [facility] | Rick Mast, | | | 2017 | | NEPHROLOGY [place] | SHOW JUMPING INSTRUCTOR [address] | | | | | [address] [facility] | [address] | | | | | [place] | [place] | | | | | [address] | [address] | | | | | [phone] | [phone] | | | | | | | [...] [address] | | | | | | [facility] | | | | | | [place] | | | | | | [address] | | | | | | | [...] [address] | | | | | | [facility] [place] [address] | | | | | | [phone] | | | | | | | | +--------+ + + + + | 11/25/ | Office | Nephrology | Kei Arthur MD | | | 2019 | Visit | | [address] [facility] | | | | | | [address] [place] | | | | | | [address] | | | | | | | | +--------+ + + + + documented as of this encounter Visit Diagnoses Not on filedocumented in this encounter"
--- OUTSIDE RECORDS SUMMARY | ~2019-10-02 | XMS | Encounter Summary ---
Demographics + + + | Address | [address] | | | [place] [address] | + + + | Home Phone [...] | Author | [facility] | | | and [place] | + + + | Organization | [facility] | | | and [place] | + + + | Address | Unknown | + + + | Phone | Unavailable | + + + Support + + + + + | Name | Relationship | Address | Phone | + + + + + | Kyaw Woodson | ECON | [place], [place] | | + + + + + | Barbara Cabrera | ECON | Unknown | | + + + + + | Dimple Hathaway | ECON | Unknown | | + + + + + Care Team Providers + +------+ + | Care Manager Of Engineering Name | Role | Phone | + +------+ + | No, Physician | PCP | Unavailable | + +------+ + Encounter Details +--------+ + + + + | Date | Type | Department | Care Team | Description | +--------+ + + + + | 03/09/ | Orders Only | [facility] | Kei Arthur MD | | | 2018 | | NEPHROLOGY [place] | [address] | | | | | [address] | [address] [place], [place] | | | | | [address] [facility] [place] | [address] | | | | | [address] | | | | | | [phone] | | | +--------+ + + + [...] [address] | | | | | | [address] | | | | | | | [...] | | | | | [place] [address] | | | | | | [phone] | | | | | | | | +--------+ + + + + | 11/25/ | Office | Nephrology | Kei Arthur MD | | | 2019 | Visit | | [address] [facility] | | | | | | [address] [place] | | | | | | [address] | | | | | | | [...] | | | LAB | | | [place] | | | | | + + [...]
--- OUTSIDE RECORDS SUMMARY | ~2019-10-02 | XMS | Encounter Summary ---
Demographics + + + | Address | [address] | | | [place] [address] | + + + | Home Phone | | + + + | Preferred Language | Unknown | + + + | Marital Status | Single | + + + | Muslim Affiliation | UNK | + + + [...] Team Providers + +------+ + | Care Business Controller Name | Role | Phone | + +------+ + | Ifeanyi Call MD | PCP | | + +------+ + Encounter Details +--------+ + + + + | Date | Type | Department | Care Team | Description | +--------+ + + + + | 12/24/ | Document-Sc | [facility] | Danielito Crockett MD,PhD | | | 2017 | anned | [facility] | [phone] | | | | at [place] [address] | Carrie Sanabria | | | | | [facility] | [place], [place] | | | | | Mailcode: [facility] | [address] | | | | | [place] [address] | [phone] | | | | | [phone] | | | +--------+ + + + [...]
--- OUTSIDE RECORDS SUMMARY | ~2019-10-02 | XMS | Encounter Summary ---
Demographics + + + | Address | [address] | | | [place] [address] | + + + | Home Phone | | + + + | Preferred Language | Unknown | + + + | Marital Status | Single | + + + | Temple Affiliation | 1041 | + + + | Race | Unknown | + + + | Ethnic Group | Unknown | + + + Author + + + | Author | [facility] | | | and [place] | + + + | Organization | [facility] | | | and [place] | + + + | Address | Unknown | + + + | Phone | Unavailable | + + + Support + + + + + | Name | Relationship | Address | Phone | + + + + + | Kyaw Woodson | ECON | [place], [place] | | + + + + + | Barbara Cabrera | ECON | Unknown | | + + + + + | Dimple Hathaway | ECON | Unknown | | + + + + + Care Team Providers + +------+ + | Care Trombone Slide Assembler Name | Role | Phone | + +------+ + | Daniel Land NP | PCP | | + +------+ + Encounter Details +--------+ + + + + | Date | Type | Department | Care Team | Description | +--------+ + + + + | 10/18/ | Orders Only | [facility] | Conversion | | | 2017 | | NEPHROLOGY [place] | Transaction, | | | | | [address] [facility] [address] | Provider Unknown | | | | | [address] [place] [place] | | | | | | [address] | (Fax) | | | | | [phone] | | | +--------+ + + + [...] | | | | [facility] | | | | | | [place] | | | | | | [address] | | | | | | | [...] [address] | | | | | | [place] [address] | | | | | | [phone] | | | | | | | | +--------+ + + + + | 11/25/ | Office | Nephrology | Kei Arthur MD | | | 2019 | Visit | | [address] [facility] | | | | | | [facility] | | | | | | [address] | | | | | | | [...] | | | LAB | | | [place] | | | | | + + [...]
--- OUTSIDE RECORDS SUMMARY | ~2019-10-02 | XMS | Encounter Summary ---
Demographics + + + | Address | [address] | | | [place] [address] | + + + | Home Phone [...] | Organization | [facility] | | | and [place] | + + + | Address | Unknown | + + + | Phone | Unavailable | + + + Support + + + + + | Name | Relationship | Address | Phone | + + + + + | Kyaw Woodson | ECON | [place], [place] | | + + + + + | Barbara Cabrera | ECON | Unknown | | + + + + + | Dimple Hathaway | ECON | Unknown | | + + + + + Care Team Providers + +------+ + | Care Checkerer Hand Name | Role | Phone | + +------+ + | Daniel Land NP | PCP | | + +------+ + Encounter Details +--------+ + + + + | Date | Type | Department | Care Team | Description | +--------+ + + + + | 07/08/ | Orders Only | [facility] | Kei Arthur MD | | | 2016 | | [facility] | [address] [place] | | | | | [address] [place] | [address] [place], [place] | | | | | [address] [place], [place] | [id number] | | | | | [address] | | | | | | [phone] | | | +--------+ + + + [...] | | | | | | [place] | | | | | | [address] | | | | | | | [...] 206 | | | | | | [place] [address] | | | | | | [phone] | | | | | | | | +--------+ + + + + | 11/25/ | Office | Nephrology | Kei Arthur MD | | | 2019 | Visit | | [address] [facility] | | | | | | [address] [place] | | | | | | [address] | | | | | | | | +--------+ + + + + documented as of this encounter Procedures + +--------+ + + + | Procedure Name | Priori | Date/Time | Associated Diagnosis | Comments | | | ty | | | | + +--------+ + + + | EXTERNAL LAB: [facility] | Routin | 07/08/2017 | | Results for this | | | e | 10:45 AM | | procedure are in the | | | | PDT | | results section. | + +--------+ + + + | BASIC METABOLIC | Routin | 07/08/2017 | | Results for this | | PANEL | e | 10:45 AM | | procedure are in the | | | | PDT | | results section. | + +--------+ + + + documented in this encounter Results External Lab: [facility] (07/08/2017 10:45 AM PDT) + + + + + + | Component | Value | Ref Range | Performed | Pathologist | | | | | At | Signature | + + + + + + | WBC | 9.8 | 4.5 - 11.0 10 | EXTERNAL [...] + + + + | Hematocrit, | 30.3 (A) | 35 - 45 % | [...] + + + + | Platelet | 280 | 140 - 440 K/ L | EXTERNAL | | | Count | | | LAB | | | Plasma | | | | | + + + + + + | RDW-CV | 15.2 (A) | 10.5 - 15.0 % | [...] + +---------+ + + Basic Metabolic Panel (07/08/2017 10:45 AM PDT) + + + + + + | Component | Value | Ref Range | Performed | Pathologist | | | | | At | Signature | + + + + + + | Glucose, | 264 (A) | 70 - 100 mg/dL | EXTERNAL | | | Fasting | | | LAB | | + + + + + + | BUN | 56 (A) | 6 - 23 mg/dL | EXTERNAL | | | | | | LAB | | + + + + + + | Creatinine | 2.87 (A) | 0.60 - 1.36 | EXTERNAL | | | | | mg/dL | LAB | | + + + + + + | BUN/Creatin | 19.5 | 6.0 - 28.6 | EXTERNAL | [...]
--- OUTSIDE RECORDS SUMMARY | ~2019-10-02 | XMS | Encounter Summary ---
Demographics + + + | Address | [address] | | | [place] [address] | + + + | Home Phone [...] | Organization | [facility] | | | and [place] | + + + | Address | Unknown | + + + | Phone | Unavailable | + + + Support + + + + + | Name | Relationship | Address | Phone | + + + + + | Kyaw Woodson | ECON | [place], [place] | | + + + + + | Barbara Cabrera | ECON | Unknown | | + + + + + | Dimple Hathaway | ECON | Unknown | | + + + + + Care Team Providers + +------+ + | Care Tube Operator Name | Role | Phone | + +------+ + | Daniel Land NP | PCP | | + +------+ + Encounter Details +--------+ + + + + | Date | Type | Department | Care Team | Description | +--------+ + + + + | 07/08/ | Orders Only | [facility] | Kei Arthur MD | | | 2016 | | [facility] | [address] [place] | | | | | [address] [place] | [address] [place], [place] | | | | | [address] [place], [place] | [id number] | | | | | [address] | | | | | | [phone] | | | +--------+ + + + [...] [address] | | | | | | [facility] | | | | | | [place] | | | | | | [address] | | | | | | | [...] 206 | | | | | | [place] [address] | | | | | | [phone] | | | | | | | | +--------+ + + + + | 11/25/ | Office | Nephrology | Kei Arthur MD | | | 2019 | Visit | | [address] [facility] | | | | | | [address] [place] | | | | | | [address] | | | | | | | [...]
--- OUTSIDE RECORDS SUMMARY | ~2019-10-02 | XMS | Encounter Summary ---
Demographics + + + | Address | [address] | | | [place] [address] | + + + | Home Phone [...] Organization | [facility] | | | and [place] | + + + | Address | Unknown | + + + | Phone | Unavailable | + + + Support + + + + + | Name | Relationship | Address | Phone | + + + + + | Kyaw Woodson | ECON | [place], [place] | | + + + + + | Barbara Cabrera | ECON | Unknown | | + + + + + | Dimple Hathaway | ECON | Unknown | | + + + + + Care Team Providers + +------+ + | Care Bilingual Sales Assistant Name | Role | Phone | + +------+ + | Daniel Land NP | PCP | | + +------+ + Encounter Details +--------+ + + + + | Date | Type | Department | Care Team | Description | +--------+ + + + + | 06/16/ | Orders Only | [facility] | Kei Arthur MD | | | 2014 | | NEPRHOLOGY [place] | [address] | | | | | [address] | [address] [place], [place] | | | | | [address] [place], [place] | [address] | | | | | [address] | | | | | | [phone] | | | +--------+ + + + [...] [address] | | | | | | [facility] | | | | | | [place] | | | | | | [address] | | | | | | | [...] 206 | | | | | | [place] [address] | | | | | | [phone] | | | | | | | | +--------+ + + + + | 11/25/ | Office | Nephrology | Kei Arthur MD | | | 2019 | Visit | | [address] | | | | | | [address] [facility] | | | | | | [address] | | | | | | | [...] | | | LAB | | | [place] | | | | | + + [...]
--- OUTSIDE RECORDS SUMMARY | ~2019-10-02 | XMS | Encounter Summary ---
Demographics + + + | Address | [address] | | | [place] [address] | + + + | Home Phone [...] | [facility] | | | and [place] | + + + | Address | Unknown | + + + | Phone | Unavailable | + + + Support + + + + + | Name | Relationship | Address | Phone | + + + + + | Kyaw Woodson | ECON | [place], [place] | | + + + + + | Barbara Cabrera | ECON | Unknown | | + + + + + | Dimple Hathaway | ECON | Unknown | | + + + + + Care Team Providers + +------+ + | Care Communications Technician Name | Role | Phone | + +------+ + | Jennyfer Gresham MD | PCP | | + +------+ + Encounter Details +--------+ + + + + | Date | Type | Department | Care Team | Description | +--------+ + + + + | 07/05/ | Orders Only | [facility] | Mari Mcdaniel, | | | 2018 | | CARDIOLOGY [place] | [address] | | | | | [address] | [address], [place] | | | | | [place], [place] | [address] | | | | | [address] | | | | | | [phone] | | | +--------+ + + + [...] [place] | | | | | | [address] | | | | | | | [...] | | | | | | [place] [address] | | | | | | [phone] | | | | | | | | +--------+ + + + + | 11/25/ | Office | Nephrology | Kei Arthur MD | | | 2020 | Visit | | [address] | | | | | | [address] [place] | | | | | | [address] | | | | | | | | +--------+ + + + + documented as of this encounter Visit Diagnoses Not on filedocumented in this encounter"
--- OUTSIDE RECORDS SUMMARY | ~2019-10-02 | XMS | Encounter Summary ---
Demographics + + + | Address | [address] | | | [place] [address] | + + + | Home Phone | | + + + | Preferred Language | Unknown | + + + | Marital Status | Single | + + + | Jew Affiliation | 1041 | + + + | Race | Unknown | + + + | Ethnic Group | Unknown | + + + Author + + + | Author | [facility] | | | and [place] | + + + | Organization | [facility] | | | and [place] | + + + | Address | Unknown | + + + | Phone | Unavailable | + + + Support + + + + + | Name | Relationship | Address | Phone | + + + + + | Kyaw Woodson | ECON | [place], [place] | | + + + + + | Barbara Cabrera | ECON | Unknown | | + + + + + | Dimple Hathaway | ECON | Unknown | | + + + + + Care Team Providers + +------+ + | Care Regulatory And Compliance Technician Name | Role | Phone | + +------+ + | Daniel Land NP | PCP | | + +------+ + Encounter Details +--------+ + + + + | Date | Type | Department | Care Team | Description | +--------+ + + + + | 02/17/ | Orders Only | [facility] | Conversion | | | 2016 | | NEPRHOLOGY [place] | Transaction, | | | | | [address] | Provider Unknown | | | | | [address] [place] | [phone] | | | | | [address] | | | | | | [phone] | | | +--------+ + + + [...] [place] | | | | | | [address] | | | | | | | [...] | | | | | [place] [address] | | | | | | [phone] | | | | | | | | +--------+ + + + + | 11/25/ | Office | Nephrology | Kei Arthur MD | | | 2019 | Visit | | [address] [facility] | | | | | | [address] [place] | | | | | | [address] | | | | | | | [...]
--- OUTSIDE RECORDS SUMMARY | ~2019-10-02 | XMS | Clinical Summary ---
Demographics + + + | Address | [address] | | | [place] [address] | + + + | Home Phone | | + + + | Preferred Language | Unknown | + + + | Marital Status | Single | + + + | Judaism Affiliation | UNK | + + + [...] Team Providers + +------+ + | Care Restorative Art Embalmer Name | Role | Phone | + +------+ + | Jennyfer Gresham MD | PCP | | + +------+ + Source Comments [facility] and [facility] Allergies + + + + + + [...] | | + + + +---------+------+------+-------+ | atorvastatin 40 mg | 80 mg. | | 0 | 02/2 | | Activ | | oral tablet | | | | 7/20 | | e | | | | | | 17 | | | + + + +---------+------+------+-------+ | albuterol (PROAIR | Inhale by mouth. | | 0 | 10/2 | | Activ | | HFA) 90 | | | | 0/20 | | e | | mcg/actuation | | | | 14 | | | | inhalation HFA | | | | | | | | aerosol inhaler | | | | | | | + + + +---------+------+------+-------+ | aspirin chewable | Chew and swallow. | | 0 | | | Activ | | 81 mg oral | | | | | | e | | tablet,chewable | | | | | | | + + + +---------+------+------+-------+ | multivitamin (ONE | Take by mouth. | | 0 | | | Activ | | DAILY MULTIVITAMIN) | | | | | | e | | oral tablet | | | | | | | + + + +---------+------+------+-------+ | Fenofibrate | | | 0 | 03/2 | | Activ | | (FENOFIBRATE) 160 mg | | | | 0/20 | | e | | oral tablet | | | | 17 | | | + + + +---------+------+------+-------+ | venlafaxine 225 mg | | | 0 | 03/0 | | Activ | | oral tablet | | | | 3/20 | | e | | extended release | | | | 17 | | | | 24hr | | | | | | | + + + +---------+------+------+-------+ | docusate sodium | Take by mouth. | | 0 | 09/3 | | Activ | | 100 mg oral capsule | | | | 0/20 | | e | | | | | | 16 | | | + + + +---------+------+------+-------+ | torsemide 20 mg | | | 0 | 02/1 | | Activ | | oral tablet | | | | 3/20 | | e | | | | | | 17 | | | + + + +---------+------+------+-------+ | spironolactone 50 | | | 0 | 02/2 | | Activ | | mg oral tablet | | | | 7/20 | | e | | | | | | 17 | | | + + + +---------+------+------+-------+ | insulin regular | Inject under the | | 0 | 11/1 | | Activ | | hum U-500 conc 500 | skin (SUBC) as | | | 7/20 | | e | | unit/mL (3 mL) | needed. | | | 16 | | | | subcutaneous insulin | | | | | | | | pen | | | | | | | + + + +---------+------+------+-------+ | allopurinol 100 mg | | | 0 | 04/0 | | Activ | | oral tablet | | | | 4/20 | | e | | | | | | 17 | | | + + + +---------+------+------+-------+ | metoprolol | | | 0 | 02/0 | | Activ | | succinate 100 mg | | | | 8/20 | | e | | oral tablet extended | | | | 17 | | | | release 24 hr | | | | | | | + + + +---------+------+------+-------+ | DEXILANT 60 mg | | | 0 | 04/0 | | Activ | | oral capsule,biphase | | | | 4/20 | | e | | delayed releas | | | | 17 | | | + + + +---------+------+------+-------+ | KLOR-CON M10 10 | | | 0 | 02/1 | | Activ | | mEq oral tablet,ER | | | | 1/20 | | e | | particles/crystals | | | | 17 | | | + + + +---------+------+------+-------+ | acetaminophen 500 | Take by mouth. | | 0 | | | Activ | | mg oral tablet | | | | | | e | + + + +---------+------+------+-------+ | ascorbic acid SR | Take by mouth. | | 0 | | | Activ | | 1,000 mg oral tablet | | | | | | e | + + + +---------+------+------+-------+ | b complex vitamins | Take by mouth. | | 0 | | | Activ | | (VITAMINS B | | | | | | e | | COMPLEX) oral tablet | | | | | | | + + + +---------+------+------+-------+ | Cholecalciferol, | Take by mouth. | | 0 | | | Activ | | Vitamin D3, 5,000 | | | | | | e | | unit oral capsule | | | | | | | + + + +---------+------+------+-------+ | INV insulin aspart | Inject under the | | 0 | | | Activ | | 100 units/mL | skin (SUBC). 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 | 11/17/2017 | + + + + + | Last Assessment & Plan: With evidence of cnvm on FA, OCT and | | exam OU improved vision and OCT after avastin OU -improved - | | repeat today MELBA Avastin today | + + + + + | Choroidal neovascularization, both eyes | 11/17/2017 | + + + + + | Last Assessment & Plan: avastin OU today | + + Encounters +--------+ + + + + | Date | Type | Specialty | Care Team | Description | +--------+ + + + + | 07/23/ | Telephone | Ophthalmology | Jaelyn Mejia, | Scheduling | | 2019 | | | MD | | +--------+ + + + + from Last 3 Months Family History + + +------+ + | Medical History | Relation | Name | Comments | + + +------+ + | Cancer | Cousin | | | + + +------+ + | Glasses | Daughter | | | + + +------+ + | Cancer | Father | | | + + +------+ + | Diabetes | Father | | | + + +------+ + | Breast Cancer | Maternal | | | | | Aunt | | | + + +------+ + | Cancer | Maternal | | | | | Aunt | | | + + +------+ + | Cancer | Maternal | | | | | Grandmoth | | | | | er | | | + + +------+ + | Glaucoma | Maternal | | | | | Grandmoth | | | | | er | | | + + +------+ + | Cancer | Mother | | | + + +------+ + | Diabetes | Mother | | | + + +------+ + | Glasses | Mother | | | + + +------+ + | Cancer | Paternal | | | | | Aunt | | | + + +------+ + | Glaucoma | Paternal | | | | | Grandmoth | | | | | er | | | + + +------+ + | Macular degeneration | Paternal | | | | | Grandmoth | | | | | er | | | + + +------+ + | Diabetes | Sister | | | + + +------+ + | Glasses | Sister | | | + + +------+ + | Glasses | Sister | | | + + +------+ + | Glasses | Son | | | + + +------+ + | Glasses | Son | | | + + +------+ + | Amblyopia | Neg Hx | | | + + +------+ + | Blindness | Neg Hx | | | + + +------+ + | Cataracts | Neg Hx | | | + + +------+ + | Heart Disease | Neg Hx | | | + + +------+ + | Retinal detachment | Neg Hx | | | + + +------+ + | Retinitis pigmentosa | Neg Hx | | | + + +------+ + | Strabismus | Neg Hx | | | + + +------+ + + +------+--------+ + | Relation | Name | Status | Comments | + +------+--------+ + | Cousin | | | | + +------+--------+ + | Daughter | | | | + +------+--------+ + | Father | | | States her father may not be biological. | + +------+--------+ + | Maternal Aunt | | | | + +------+--------+ + | Maternal Grandmother | | | | + +------+--------+ + | Mother | | | | + +------+--------+ + | Paternal Aunt | | | | + +------+--------+ + | Paternal Grandmother | | | | + +------+--------+ + | Sister | | | | + +------+--------+ + | Sister | | | | + +------+--------+ + | Son | | | | + +------+--------+ + | Son | | | | + +------+--------+ + Social History + +-------+ +--------+------+ | [...] | + + Last Filed Vital Signs Not on file Plan of Treatment + + + + + | Health Maintenance | Due Date | Last Done | Comments | + + + + + | Pneumococcal | | | | | vaccination (1 of 3 | 7 | | | | - PCV13) | | | | + + + + + | Influenza (Flu) | | 10/19/2011 | | | vaccination (#1) | 9 | | | + + + + + Results Not on filefrom Last 3 Months Insurance + +--------+ +--------+ + +--------+ | Payer | Benefi | Subscriber | Effect | Phone | Address | Type | | | t Plan | ID | jarad | | | | | | / | | Dates | | | | | | Group | | | | | | + +--------+ +--------+ + +--------+ | MEDICARE | MEDICA | xxxxxxxxxxx | | [phone] | [address] | | | RE A & | | [phone] | re | | | B | | esent | | [place] | | | | | | | | [address] | | + +--------+ +--------+ + +--------+ | MEDICAID [place] | OHP | xxxxxxxx | | [phone] | [address] | | | PLUS | | [address] | [address] | [phone] | id | | | OPEN | | esent | | [place], [place] | | | | CARD | | | | [id number] | | + +--------+ +--------+ + +--------+ + +--------+ +--------+ + + | Guarantor Name | Accoun | Relation to | Date | Phone | Billing Address | | | t Type | Patient | of | | | | | | | | | | + +--------+ +--------+ + + | Alondra Caballero | Person | Self | [birth year] | [address] | | | al/Fam | | 1970 | [phone] | [address] [place], | | | lucía | | | 5 (Home) | [place] [address] | + +--------+ +--------+ + +"
--- OUTSIDE RECORDS SUMMARY | ~2019-10-02 | XMS | Encounter Summary ---
Demographics + + + | Address | [address] | | | [place] [address] | + + + | Home Phone [...] Team Providers + +------+ + | Care Spoke Maker Name | Role | Phone | + +------+ + PCP | Unavailable | + +------+ + Encounter Details +--------+ + + + + | Date | Type | Department | Care Team | Description | +--------+ + + + + | 03/16/ | Documentati | [facility] | Danielito Corckett MD,PhD | | | 2016 | on | [facility] | [address] | | | | | at [facility] [address] | [address] | | | | | [facility] | [place], [place] | | | | | Mailcode: [facility] | [address] | | | | | [place] [address] | [phone] | | | | | [phone] | | | +--------+ + + + [...]
--- OUTSIDE RECORDS SUMMARY | ~2019-10-02 | XMS | Encounter Summary ---
Demographics + + + | Address | [address] | | | [place] [address] | + + + | Home Phone [...] | Organization | [facility] | | | and [place] | + + + | Address | Unknown | + + + | Phone | Unavailable | + + + Support + + + + + | Name | Relationship | Address | Phone | + + + + + | Kyaw Woodson | ECON | [place], [place] | | + + + + + | Barbara Cabrera | ECON | Unknown | | + + + + + | Dimple Hathaway | ECON | Unknown | | + + + + + Care Team Providers + +------+ + | Care Data Manager Name | Role | Phone | + +------+ + | No, Physician | PCP | Unavailable | + +------+ + Encounter Details +--------+ + + + + | Date | Type | Department | Care Team | Description | +--------+ + + + + | 11/21/ | Orders Only | [facility] | Conversion | | | 2019 | | NEPRHOLOGY [place] | Transaction, | | | | | [address] | Provider Unknown | | | | | [address] [place], [place] | | | | | | [address] | (Fax) | | | | | [phone] | | | +--------+ + + + [...] | | | | | [address] [facility] | | | | | | [place] | | | | | | [address] | | | | | | | [...] | | | | | [place] [address] | | | | | | [phone] | | | | | | | | +--------+ + + + + | 11/25/ | Office | Nephrology | Kei Arthur MD | | | 2019 | Visit | | [address] [facility] | | | | | | [address] [place], [place] | | | | | | [address] | | | | | | | [...]
--- OUTSIDE RECORDS SUMMARY | ~2019-10-02 | XMS | Encounter Summary ---
Demographics + + + | Address | [address] | | | [place] [address] | + + + | Home Phone | | + + + | Preferred Language | Unknown | + + + | Marital Status | Single | + + + | Temple Affiliation | UNK | + + + [...] Team Providers + +------+ + | Care Door To Door Salesman Name | Role | Phone | + +------+ + PCP | Unavailable | + +------+ + Encounter Details +--------+ + + + + | Date | Type | Department | Care Team | Description | +--------+ + + + + | 01/04/ | Emergency | [facility] Emergency | | | | 2015 | | Department [address] | | | | | | [address] | | | | | | [facility] | | | | | | [place], [place] | | | | | | [address] | | | | | | [phone] | | | +--------+ + + + [...]
--- OUTSIDE RECORDS SUMMARY | ~2019-10-02 | XMS | Clinical Summary ---
Demographics + + + | Address | [address] | | | [place] [address] | + + + | Home Phone | | + + + | Preferred Language | Unknown | + + + | Marital Status | Single | + + + | Muslim Affiliation | 1041 | + + + | Race | Unknown | + + + | Ethnic Group | Unknown | + + + Author + + + | Author | [employer] (Historical as of | | | 05-05-19) | + + + | Organization | [facility] [employer] (Historical as of | | | 05-05-19) | + + + | Address | Unknown | + + + | Phone | Unavailable | + + + Support + + +---------+ + | Name | Relationship | Address | Phone | + + +---------+ + | Kyaw Woodson | ECON | Unknown | | + + +---------+ + | Barbara Cabrera | ECON | Unknown | | + + +---------+ + Care Team Providers + +------+ + | Care Gig Tender Name | Role | Phone | + [...] | | | | | ([facility]), Electrolyte | | | | | | [...] | | | | | ([facility]), Essential | | | | | | [...] 12/12/2012, lead | | failure, replaced with [employer] 1010 SQ-device 06/18/2013 | | SN: [id number] (SQ ICD). Last Assessment & Plan: ICD, | | indication, primary prevention, severe LV systolic | | dysfunction.Initial implant 12/12/2012, lead failure. 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 Ceja in [place] 06/30/2015 : battery | | 74%, device stable , no changes Last Cath, 10/05/2012: left main | | OK, prox-LAD occluded, LCx stent patent, distal RCA occluded. | | LVEF 30-35%. Last Assessment & Plan: 2V-CAD, Hx PCI/stent, Hx | | anterior MN, LVEF 35-40%. 46yo WF, weight up, edema [...] 12/12/2012, | | lead failure, replaced with [employer] 1010 SQ-Rx, SN: | | [id number] (SQ ICD).Last Cath, 10/05/2012: left main OK, prox-LAD | | occluded, LCx stent patent, distal RCA occluded. LVEF | | 30-35%.Last Echo, 11/05/2015: LV dimensions NML, large apical | | akinesis, LVEF 35-40%, mild MR, trace TR.Last Stress Test: naECG, | | 11/30/2015 ([facility]): sinus tachycardia, 120bpm, old | | anterior-septal MN, incomplete RBBB pattern. | + + + [...] | Hx of BKA, left ([facility]) | 10/18/2011 | + + + | CHF (congestive heart failure) ([facility]) | 10/18/2011 | + + + + [...] + + | Diabetes mellitus ([facility]) | 10/05/19 | | | | 13 | 6 | + + + + | HTN (hypertension) | 10/05/19 | | | | 13 | 5 | + + + + | Intravenous drug abuse (HCC) | 10/18/19 | | | | 12 | 7 | + + + + | Type 1 diabetes mellitus with nephropathy ([facility]) | 10/18/19 | | | | 12 [...] +------+-------+ + | MEDICARE | MEDICA | [id number] | | | [address] | | | RE | | | | [place] [address] | | | IP-OP | | | | | + +--------+ +------+-------+ + | MEDICAID | MEDICA | [id number] | | | [address] | | | ID | | | | [place], [place] | | | [place] | | | | [address] | + +--------+ +------+-------+ + + +--------+ [...] lucía | | | [address] | [place] [address] | + +--------+ +--------+ + +
--- OUTSIDE RECORDS SUMMARY | ~2019-10-02 | XMS | Encounter Summary ---
Demographics + + + | Address | [address] | | | [place] [address] | + + + | Home Phone [...] + | Organization | [facility] | | | and [place] | + + + | Address | Unknown | + + + | Phone | Unavailable | + + + Support + + + + + | Name | Relationship | Address | Phone | + + + + + | Kyaw Woodson | ECON | [place], [place] | | + + + + + | Barbara Cabrera | ECON | Unknown | | + + + + + | Dimple Hathaway | ECON | Unknown | | + + + + + Care Team Providers + +------+ + | Care Door Liner Name | Role | Phone | + +------+ + | Daniel Land NP | PCP | | + +------+ + Encounter Details +--------+ + + + + | Date | Type | Department | Care Team | Description | +--------+ + + + + | 11/17/ | Orders Only | [facility] | Conversion | | | 2017 | | NEPHROLOGY KARSTEN | Transaction, | | | | | [address] [facility] [address] | Provider Unknown | | | | | [address] [place] | | | | | | [address] | (Fax) | | | | | [phone] | | | +--------+ + + + [...] [address] | | | | | | [facility] | | | | | | [place] | | | | | | [address] | | | | | | | [...] [address] | | | | | | [place] [address] | | | | | | [phone] | | | | | | | | +--------+ + + + + | 11/25/ | Office | Nephrology | Kei Arthur MD | | | 2019 | Visit | | [address] [facility] | | | | | | [address] [facility] | | | | | | [address] | | | | | | | [...] - 1.030 | EXTERNAL | | | Anselmo | | | LAB | | + [...] | | | LAB | | | [place] | | | | | + + [...]
--- OUTSIDE RECORDS SUMMARY | ~2019-10-02 | XMS | Encounter Summary ---
Demographics + + + | Address | [address] | | | [place] [address] | + + + | Home Phone [...] | Organization | [facility] | | | and [place] | + + + | Address | Unknown | + + + | Phone | Unavailable | + + + Support + + + + + | Name | Relationship | Address | Phone | + + + + + | Kyaw Woodson | ECON | [place], [place] | | + + + + + | Barbara Cabrera | ECON | Unknown | | + + + + + | Dimple Hathaway | ECON | Unknown | | + + + + + Care Team Providers + +------+ + | Care Sheriff'S Officer Name | Role | Phone | + +------+ + | No, Physician | PCP | Unavailable | + +------+ + Encounter Details +--------+ + + + + | Date | Type | Department | Care Team | Description | +--------+ + + + + | 03/09/ | Orders Only | [facility] | Conversion | | | 2017 | | NEPHROLOGY KARSTEN | Transaction, | | | | | [address] | Provider Unknown | | | | | [address] [facility] [place] | | | | | | [address] | (Fax) | | | | | [phone] | | | +--------+ + + + [...] | 2019 | Visit | | MD [address] | | | | | | [address] | | | | | | [place] | | | | | | [phone] | | | | | | | [...] | | | | | [place] [address] | | | | | | [phone] | | | | | | | | +--------+ + + + + | 11/25/ | Office | Nephrology | Kei Arthur MD | | | 2019 | Visit | | [address] [facility] | | | | | | [address] [place], [place] | | | | | | [address] | | | | | | | [...]
--- OUTSIDE RECORDS SUMMARY | ~2019-10-02 | XMS | Encounter Summary ---
Demographics + + + | Address | [address] | | | [place] [address] | + + + | Home Phone [...] Organization | [facility] | | | and [place] | + + + | Address | Unknown | + + + | Phone | Unavailable | + + + Support + + + + + | Name | Relationship | Address | Phone | + + + + + | Kyaw Woodson | ECON | [place], [place] | | + + + + + | Barbara Cabrera | ECON | Unknown | | + + + + + | Dimple Hathaway | ECON | Unknown | | + + + + + Care Team Providers + +------+ + | Care Fat Purification Worker Name | Role | Phone | [...] Provider Unknown | | | | | [place], [place] | [phone] | | | | | [address] | | | | | | [phone] | | | +--------+ + + + [...] | | | | | [facility] | | | | | | [place] | | | | | | [phone] | | | | | | | [...] | | | | | [place] [address] | | | | | | [phone] | | | | | | | | +--------+ + + + + | 11/25/ | Office | Nephrology | Kei Arthur MD | | | 2019 | Visit | | [address] [facility] | | | | | | [address] [place] | | | | | | [phone] | | | | | | | | +--------+ + + + + documented as of this encounter Visit Diagnoses Not on filedocumented in this encounter"
--- OUTSIDE RECORDS SUMMARY | ~2019-10-02 | XMS | Encounter Summary ---
Demographics + + + | Address | [address] | | | [place] [address] | + + + | Home Phone [...] | Organization | [facility] | | [...] Providers + +------+ + | Care Wood Treating Inspector Name | Role | Phone | + +------+ + PCP | Unavailable | + +------+ + Encounter Details +--------+ + + + + | Date | Type | Department | Care Team | Description | +--------+ + + + + | 11/17/ | Hospital | [facility] | Conversion | Pain | | 2014 | Encounter | CONVERSION DEP [address] | Transaction, | | | | | [address] | Provider Unknown | | | | | [place] | [phone] | | | | | [address] | | | | | | [phone] | | | +--------+ + + + [...] [place] | | | | | | [address] | | | | | | | [...] | | | | | [place] [address] | | | | | | [phone] | | | | | | | | +--------+ + + + + | 11/25/ | Office | Nephrology | Kei Arthur MD | | | 2019 | Visit | | [address] [facility] | | | | | | [address] [place] | | | | | | [address] | | | | | | | [...]
--- OUTSIDE RECORDS SUMMARY | ~2019-10-02 | XMS | Encounter Summary ---
Demographics + + + | Address | [address] | | | [place] [address] | + + + | Home Phone [...] | Organization | [facility] | | | and [place] | + + + | Address | Unknown | + + + | Phone | Unavailable | + + + Support + + + + + | Name | Relationship | Address | Phone | + + + + + | Kyaw Woodson | ECON | [place], [place] | | + + + + + | Barbara Cabrera | ECON | Unknown | | + + + + + | Dimple Hathaway | ECON | Unknown | | + + + + + Care Team Providers + +------+ + | Care Community Relations Police Lieutenant Name | Role | Phone | + +------+ + PCP | Unavailable | + +------+ + Encounter Details +--------+ + + + + | Date | Type | Department | Care Team | Description | +--------+ + + + + | 12/12/ | Hospital | [facility] | Fany Ceja, | | | 2012 - | Encounter | [facility] | MD [address] | | | | | CARDIAC TELEMETRY | [address] [place] | | | 12/13/ | | [address] | [address] | | | 2012 | | [place] | [phone] | | | | | [address] | | | | | | [phone] | | | +--------+ + + + [...] documented as of this encounter Discharge Summaries Fany Ceja MD - 12/13/2012 8:37 AM PDT PATIENT NAME: ADAM HINTON Sex/Age: F / 42Y : 1970 ADMISSION DATE: 12/12/2012 DISCHARGE DATE: 12/13/2012 [id number] / [id number] DISCHARGE DIAGNOSIS: 1. History of methamphetamine abuse. Apparently not using the drug. 2. Ischemic cardiomyo jessica with a severely reduced ejection fraction secondary to the above. 3. CHF. 4. Hypokalemia with a potassium of 3.2 HOSPITAL COURSE: Adam was admitted yesterday for implantation of a single chamber ICD f or primary prevention of sudden . It is of note that significant difficulties were fo und in obtaining adequate R wave sensing. Since procedure, Adam has been observed on telemetry overnight. A post procedure chest xray showed stable lead position and no abnormalities or significance. Overnight she has b een in sinus rhythm with normal rate. Device check was performed this morning. The patient 's defibrillating impedances were normal and stable. R wave sensing was 12. The patient's threshold was .5. At this point, Adam looks and feels well. JVP is normal. Carotid upstrokes are normal without cardiac bruit. PMI cannot be palpated. Heart sounds are regular. There is no per icardial rub. The device site looks fine. Breath sounds equal and clear bilaterally. Abd omen is soft and nontender. Peripheral pulses on the preserved extremity are normal. Ther e is no lower extremity edema. There is no clubbing or cyanosis. Adam will be going home today. MEDICATIONS: Her medication regimen will be mostly unchanged. She will take aspirin, Pl avix, atorvastatin, carvedilol, furosemide, insulin, and Spironolactone as prior to admissi on. I have added Lisinopril 5 mg. once a day to her medication regimen. That should also help correct hypokalemia. She will have a BMP checked in a week. I will see her on Tuesday, check her device, and sh e will then go home. She lives in [place]. Fany Ceja MD VÍCTOR HINTONGissel Olivarez ADM:12/12/12 [id number] 12/13/12 DIS [place] DISCHARGE SUMMARY [id number] [facility] Fany Ceja MD [facility] THIS REPORT IS CONFIDENTIAL AND NOT TO BE RELEASED WITHOUT PROPER AUTHORIZATION. [facility] A A MINH/stephany #[id number] cc: Fany Ceja MD Electronically Signed 12/30/12812 Fany Ceja MD ADAM HINTON ADM:12/12/12 [id number] 12/13/12 DIS [place] DISCHARGE SUMMARY [id number] [facility] Fany Ceja MD [facility] THIS REPORT IS CONFIDENTIAL AND NOT TO BE RELEASED WITHOUT PROPER AUTHORIZATION.Electronic[employer] lly signed by Anil Matias at 12/30/2012 8:14 AM PDTdocumented in this encounter Medications at Time [...] [address] | | | | | | [facility] | | | | | | [place] | | | | | | [address] | | | | | | | [...] | | | | | | [place] [address] | | | | | | [phone] | | | | | | | | +--------+ + + + + | 11/25/ | Office | Nephrology | Kei Arthur MD | | | 2019 | Visit | | [address] [facility] | | | | | | [address] [place] | | | | | | [address] | | | | | | | | +--------+ + + + + documented as of this encounter Procedures + +--------+ + + + | Procedure Name | Priori | Date/Time | Associated Diagnosis | Comments | | | ty | | | | + +--------+ + + + | POC GLUCOSE | Routin | 12/13/2012 | | Results for this | | | e | 12:09 PM | | procedure are in the | | | | PDT | | results section. | + +--------+ + + + | POC GLUCOSE | Routin | 12/13/2012 | | Results for this | | | e | 7:47 AM | | procedure are in the | | | | PDT | | results section. | + +--------+ + + + | POC GLUCOSE | Routin | 12/12/2012 | | Results for this | | | e | 9:28 PM | | procedure are in the | | | | PDT | | results section. | + +--------+ + + + | POC GLUCOSE | Routin | 12/12/2012 | | Results for this | | | e | 5:42 PM | | procedure are in the | | | | PDT | | results section. | + +--------+ + + + | XR CHEST 2 VIEWS | | 12/12/2012 | | Results for this | | | | 2:22 PM | | procedure are in the | | | | PDT | | results section. | + +--------+ + + + | PROTIME INR | Routin | 12/12/2012 | | Results for this | | | e | 11:25 AM | | procedure are in the | | | | PDT | | results section. | + +--------+ + + + | CBC NO DIFFERENTIAL | Routin | 12/12/2012 | | Results for this | | | e | 11:25 AM | | procedure are in the | | | | PDT | | results section. | + +--------+ + + + | BASIC METABOLIC | Routin | 12/12/2012 | | Results for this | | PANEL | e | 11:25 AM | | procedure are in the | | | | PDT | | results section. | + +--------+ + + + documented in this encounter Results POC Glucose (12/13/2012 12:09 PM PDT) + +---------+ + + + [...] + + | [facility] | [address] | [place] [address] | | | [facility] | | | | | LABORATORY | | | | + + + + + POC Glucose (12/13/2012 7:47 AM PDT) + +---------+ + + + | Component | Value | Ref Range | Performed | Pathologist | | | | | At | Signature | + +---------+ + + + | Glucose, | 179 (H) | 65 - 99 mg/dL | [...] + | [facility] | [address] | [place] [address] | | | [facility] | | | | | LABORATORY | | | | + + + + + POC Glucose (12/12/2012 9:28 PM PDT) + +---------+ + + + | Component | Value | Ref Range | Performed | Pathologist | | | | | At | Signature | + +---------+ + + + | Glucose, | 195 (H) | 65 - 99 mg/dL | [...] [facility] | [address] | [place] [address] | | | [facility] | | | | | LABORATORY | | | | + + + + + POC Glucose (12/12/2012 5:42 PM PDT) + +---------+ + + + | Component | Value | Ref Range | Performed | Pathologist | | | | | At | Signature | + +---------+ + + + | Glucose, | 168 (H) | 65 - 99 mg/dL | [...] + + | [facility] | [address] | [place] [address] | | | [facility] | | | | | LABORATORY | | | | + + + + + XR Chest 2 VW (12/12/2012 2:22 PM PDT) + + | Specimen | + + | | + + + + + | Narrative | Performed At | + + + | Exam Performed Location: [facility] AND | MISCELANIOUS | | LATERAL CHEST CLINICAL INFORMATION: Patient has cardiomyopathy. | LAB | | Post pacemaker. COMPARISON: None. FINDINGS: Left subclavian | | | single lead AICD in place with lead tip in the region of the right | | | ventricular apex. No pneumothorax. Lung volumes are low. The | | | cardiomediastinal silhouette and pulmonary vasculature within normal | | | limits. No pleural effusion or focal pulmonary opacity. No | | | significant osseous, soft tissue or upper abdominal abnormality. | | | IMPRESSION: Left subclavian single lead AICD in place with lead tip | | | terminating in the region of the right ventricular apex. No | | | pneumothorax. The radiologist has reviewed the images and | | | edited/approved the report. For interventional procedures, the | | | signing radiologist was present for the moran portions of the exam. | | | S: SQ ([id number]) Signed by: DANIEL LANE MD and LUKASZ | | | SHANNA MESA MD R5 | | + + + + + | Procedure Note | + + | Florencio, Rad Conversion - 07/11/2013 10:46 PM PDT Exam Performed Location: [facility] | | at [facility] AND LATERAL CHESTCLINICAL INFORMATION:Patient has cardiomyopathy. | | Post pacemaker.COMPARISON:None.FINDINGS:Left subclavian single lead AICD in place with | | lead tip in theregion of the right ventricular apex. No pneumothorax. Lungvolumes are | | low. The cardiomediastinal silhouette and pulmonaryvasculature within normal limits. | | No pleural effusion or focalpulmonary opacity. No significant osseous, soft tissue or | | upperabdominal abnormality.IMPRESSION:Left subclavian single lead AICD in place with | | lead tip terminatingin the region of the right ventricular apex. No pneumothorax.The | | radiologist has reviewed the images and edited/approvedthe report. For interventional | | procedures, the signingradiologist was present for the moran portions of the exam.S: SQ | | ([id number]) Signed by: DANIEL LANE MD and LUKASZ MESA MD R5 | |Left subclavian single lead AICD in place with lead tip in the | |region of the right ventricular apex. No pneumothorax. Lung | |volumes are low. The cardiomediastinal silhouette and pulmonary | |vasculature within normal limits. No pleural effusion or focal | |pulmonary opacity. No significant osseous, soft tissue or upper | |abdominal abnormality. | | | |IMPRESSION: | |Left subclavian single lead AICD in place with lead tip terminating | |in the region of the right ventricular apex. No pneumothorax. | | | | | |The radiologist has reviewed the images and edited/approved | |the report. For interventional procedures, the signing | |radiologist was present for the moran portions of the exam. | | | | | |S: SQ ([id number]) Signed by: DANIEL LANE MD and LUKASZ MESA MD R5 | + + + +---------+ + + | Performing | Address | City/State/Zipcode | Phone Number | | Organization | | | | + +---------+ + + | [facility] | | | [phone] | + +---------+ + + | [facility] | | | [phone] | + +---------+ + + Basic Metabolic Panel (12/12/2012 11:25 AM PDT) + + + + + + | Component | Value | Ref Range | Performed | Pathologist | | | | | At | Signature | + + + + + + | Na | 139 | 135 - 145 | [facility] | | | | mmol/L | [facility] | | | | | [facility] | | | | | | [facility] | | | | | | CENTER | | | | | | LABORATORY | | + + + + + + | K | 3.2 (L) | 3.5 - 5.0 | [facility] | | | | | mmol/L | [facility] | | | | | | [facility] | | | | | | MEDICAL | | | | | | CENTER | | | | | | LABORATORY | | + + + + + + | Cl | 102 | 99 - 109 mmol/L | [facility] | | | | | | [facility] | | | | | | [facility] | | | | | | MEDICAL | | | | | | CENTER | | | | | | LABORATORY | | + + + + + + | CO2 | 23 | 21 - 28 mmol/L | [facility] | | | | | | [facility] | | | | | | [facility] | | | | | | MEDICAL | | | | | | CENTER | | | | | | LABORATORY | | + + + + + + | Glucose | 155 (H)Comment: If | 65 - 99 mg/dL | [facility] | | | | , Normal = 65 to | | [facility] | | | | 94 mg/dL. [place] | | HEART | | | | [...] + + + + | BUN | 7 (L) | 8 - 25 mg/dL | [facility] | | | | | [facility] | | | | | | [facility] | | | | | | MEDICAL | | | | | | CENTER | | | | | | LABORATORY | | + + + + + + | Creatinine | 0.88Comment: IDMS | 0.50 - 1.00 | [facility] | | | | traceable creatinine | mg/dL | [facility] | | | | | | HE[facility] | | | | | | MEDICAL | | | | | | CENTER | | | | | | LABORATORY | | + + + + + + | Calcium | 8.3 (L) | 8.5 - 10.2 | [facility] | | | | | mg/dL | [facility] | | | | | | HE[facility] | | | | | | MEDICAL | | | | | | CENTER | | | | | | LABORATORY | | + + + + + + | Anion Gap | 14 | 5 - 16 mmol/L | [facility] [...] + + | [facility] | [address] | [place] [address] | | | [facility] | | | | | LABORATORY | | | | + + + + + Protime INR (12/12/2012 11:25 AM PDT) + + + + + + | Component | Value | Ref Range | Performed | Pathologist | | | | | At | Signature | + + + + + + | Prothrombin | 11.9 | 10.9 - 14.8 sec | [facility] | | | Time | | | [facility] | | | | | | HEART | | | | | | MEDICAL | | | | | | CENTER | | | | | | LABORATORY | | + + + + + + | INR | 0.9Comment: Usual oral | 0.9 - 1.2 | [facility] | | | | anticoagulant range: 2.0 | | [facility] | | | | to 3.0 High level | | HEART | | | | oral anticoagulant | | MEDICAL | | | | range: 2.5 to 3.5 | | CENTER | | | | | | LABORATORY | | + + + + + + + + | Specimen | + + | | + + + + + + + | Performing | Address | City/State/Zipcode | Phone Number | | Organization | | | | + + + + + | [facility] | [address] | [place] [address] | | | [facility] | | | | | LABORATORY | | | | + + + + + CBC no Differential (12/12/2012 11:25 AM PDT) + + + + + + | Component | Value | Ref Range | Performed | Pathologist | | | | | At | Signature | + + + + + + | WBC | 11.4 (H) | 3.8 - 11.0 K/uL | [facility] | | | | [facility] | | | | | | [facility] | | | | | | MEDICAL | | | | | | CENTER | | | | | | LABORATORY | | + + + + + + | RBC | 4.74 | 3.70 - 5.10 | [facility] | | | | | M/uL | [facility] | | | | | | HE[facility] | | | | | | MEDICAL | | | | | | CENTER | | | | | | LABORATORY | | + + + + + + | Hemoglobin | 12.2 | 11.3 - 15.5 | [facility] | | | | | g/dL | [facility] | | | | | | HE[facility] | | | | | | MEDICAL | | | | | | CENTER | | | | | | LABORATORY | | + + + + + + | Hematocrit | 37.9 | 34.0 - 46.0 % | [facility] | | | | | | [facility] | | | | | | [facility] | | | | | | MEDICAL | | | | | | CENTER | | | | | | LABORATORY | | + + + + + + | MCV | 80.0 | 80.0 - 100.0 fL | [facility] [...] + + + + | MCHC | 32.3 | 32.0 - 35.5 | [facility] | | | | | g/dL | [facility] | | | | | | HE[facility] | | | | | | MEDICAL | | | | | | CENTER | | | | | | LABORATORY | | + + + + + + | RDW-CV | 14.2 | 11.0 - 15.5 % | [facility] | | | | | | [facility] | | | | | | [facility] | | | | | | MEDICAL | | | | | | CENTER | | | | | | LABORATORY | | + + + + + + | Platelet | 305 | 150 - 400 K/uL | [facility] [...] + + | [facility] | [address] | [place] [address] | | | [facility] | | | | | LABORATORY | | | | + + + + + documented in this encounter Visit Diagnoses Not on filedocumented in this encounter"
--- OUTSIDE RECORDS SUMMARY | ~2019-10-02 | XMS | Encounter Summary ---
Demographics + + + | Address | [address] | | | [place] [address] | + + + | Home Phone | | + + + | Preferred Language | Unknown | + + + | Marital Status | Single | + + + | Methodist Affiliation | UNK | + + + | Race | White | + + + | Ethnic Group | Not or | + + + Author + + + | Author | [facility] | + + + | Organization | [facility] | + + + | Address | Unknown | + + + | Phone | Unavailable | + + + Support + + +---------+ + | Name | Relationship | Address | Phone | + + +---------+ + | Valentine Qiu | ECON | Unknown | | + + +---------+ + Care Team Providers + +------+ + | Care Tape Keller Operator Name | Role | Phone | + +------+ + | Ifeanyi Call MD | PCP | | + +------+ + Encounter Details +--------+ + + + + | Date | Type | Department | Care Team | Description | +--------+ + + + + | 12/23/ | Results/Int | [facility] | Danielito Crockett MD,PhD | | | 2017 | erpretation | [facility] | [address] | | | | | at [place] [address] | [address] | | | | | [facility] | [place], [place] | | | | | Mailcode: [facility] | [address] | | | | | [place] [address] | [phone] | | | | | [phone] | | | +--------+ + + + [...] and thinning OS. CFT (m) OD OS Bsqopeenp-kf-qviz Action 12/23/2016 Multifocal ERG Interpretation 12/23/2016 Amplitude [...]
--- OUTSIDE RECORDS SUMMARY | ~2019-10-02 | XMS | Encounter Summary ---
Demographics + + + | Address | [address] | | | [place] [address] | + + + | Home Phone [...] + | Author | [facility] | | | and [place] | + + + | Organization | [facility] | | | and [place] | + + + | Address | Unknown | + + + | Phone | Unavailable | + + + Support + + + + + | Name | Relationship | Address | Phone | + + + + + | Kyaw Woodson | ECON | [place], [place] | | + + + + + | Barbara Cabrera | ECON | Unknown | | + + + + + | Dimple Hathaway | ECON | Unknown | | + + + + + Care Team Providers + +------+ + | Care Metalizing Supervisor Name | Role | Phone | + +------+ + | No, Physician | PCP | Unavailable | + +------+ + Encounter Details +--------+ + + + + | Date | Type | Department | Care Team | Description | +--------+ + + + + | 06/14/ | Hospital | [facility] | Conversion | Diagnosis unknown | | 2015 | Encounter | CONVERSION [address] | Transaction, | | | | | [address] | Provider Unknown | | | | | [place], [place] | [phone] | | | | | [address] | | | | | | [phone] | | | +--------+ + + + [...] [address] | | | | | | [employer] | | | | | | [place] | | | | | | [address] | | | | | | | [...] [address] | | | | | | [place] [address] | | | | | | [phone] | | | | | | | | +--------+ + + + + | 11/25/ | Office | Nephrology | Kei Arthur MD | | | 2019 | Visit | | [address] [facility] | | | | | | [address] [facility] | | | | | | [address] | | | | | | | [...]
--- OUTSIDE RECORDS SUMMARY | ~2019-10-02 | XMS | Encounter Summary ---
Demographics + + + | Address | [address] | | | [place] [address] | + + + | Home Phone [...] Organization | [facility] | | | and [place] | + + + | Address | Unknown | + + + | Phone | Unavailable | + + + Support + + + + + | Name | Relationship | Address | Phone | + + + + + | Kyaw Woodson | ECON | [place], [place] | | + + + + + | Barbara Cabrera | ECON | Unknown | | + + + + + | Dimple Hathaway | ECON | Unknown | | + + + + + Care Team Providers + +------+ + | Care Solar Energy Engineer Name | Role | Phone | + +------+ + | No, Physician | PCP | Unavailable | + +------+ + Encounter Details +--------+ + + + + | Date | Type | Department | Care Team | Description | +--------+ + + + + | 12/22/ | Orders Only | [facility] | Conversion | | | 2017 | | NEPHROLOGY KARSTEN | Transaction, | | | | | [address] | Provider Unknown | | | | | [address] [place], [place] | | | | | | [address] | (Fax) | | | | | [phone] | | | +--------+ + + + [...] [place] | | | | | | [id number] | | | | | | | [...] | | | | | [place] [address] | | | | | | [phone] | | | | | | | | +--------+ + + + + | 11/25/ | Office | Nephrology | Kei Arthur MD | | | 2019 | Visit | | [address] [facility] | | | | | | [address] [place], [place] | | | | | | [address] | | | | | | | [...]
--- OUTSIDE RECORDS SUMMARY | ~2019-10-02 | XMS | Encounter Summary ---
Demographics + + + | Address | [address] | | | [place] [address] | + + + | Home Phone | | + + + | Preferred Language | Unknown | + + + | Marital Status | Single | + + + | Moravian Affiliation | UNK | + + + | Race | White | + + + | Ethnic Group | Not or | + + + Author + + + | Author | [facility] | + + + | Organization | [facility] | + + + | Address | Unknown | + + + | Phone | Unavailable | + + + Support + + +---------+ + | Name | Relationship | Address | Phone | + + +---------+ + | Valentine Qiu | ECON | Unknown | | + + +---------+ + Care Team Providers + +------+ + | Care Rn Clinician Name | Role | Phone | + [...] [id number] | | | | | | [facility] | | | | | | [place], [place] | | | | | | [address] | | | | | | [phone] | | | +--------+ + + + [...]
--- OUTSIDE RECORDS SUMMARY | ~2019-10-02 | XMS | Encounter Summary ---
Demographics + + + | Address | [address] | | | [place] [address] | + + + | Home Phone [...] + + + | Author | [facility] | + + + | Organization | [facility] | + + + | Address | Unknown | + + + | Phone | Unavailable | + + + Support + + +---------+ + | Name | Relationship | Address | Phone | + + +---------+ + | Valentine Qiu | ECON | Unknown | | + + +---------+ + Care Team Providers + +------+ + | Care Brim Raiser Name | Role | Phone | + [...] | [facility] [address] | [address] [facility] | consultation | | | | [place] Mailcode: | Augie Sandhu | (Emotional | | | | [facility] [place], [place] | [place], [place] | Support/resource | | | | [phone] | [address] | referral) | +--------+ + + + [...]
--- OUTSIDE RECORDS SUMMARY | ~2019-10-02 | XMS | Encounter Summary ---
Demographics + + + | Address | [address] | | | [place] [address] | + + + | Home Phone [...] Organization | [facility] | | | and [place] | + + + | Address | Unknown | + + + | Phone | Unavailable | + + + Support + + + + + | Name | Relationship | Address | Phone | + + + + + | Kyaw Woodson | ECON | [place], [place] | | + + + + + | Barbara Cabrera | ECON | Unknown | | + + + + + | Dimple Hathaway | ECON | Unknown | | + + + + + Care Team Providers + +------+ + | Care Data Entry Analyst Name | Role | Phone | [...] + + | 08/28/ | Telephone | [facility] | Natalie, | Establish Care | | 2019 | | [facility] | MD [address] | (Sooner appointment) | | | | CARE [address] | | | | | [address] [place], [place] | [place] [address] | | | | | [address] | [phone] | | | | | [phone] | | | +--------+ + + + [...] [place] | | | | | | [address] | | | | | | | [...] | | | | | [place] [address] | | | | | | [phone] | | | | | | | | +--------+ + + + + | 11/25/ | Office | Nephrology | Kei Arthur MD | | | 2020 | Visit | | [address] [facility] | | | | | | [address] [place] | | | | | | [address] | | | | | | | | +--------+ + + + + documented as of this encounter Visit Diagnoses Not on filedocumented in this encounter"
--- OUTSIDE RECORDS SUMMARY | ~2019-10-02 | XMS | Encounter Summary ---
Demographics + + + | Address | [address] | | | [place] [address] | + + + | Home Phone [...] | Organization | [facility] | | | and [place] | + + + | Address | Unknown | + + + | Phone | Unavailable | + + + Support + + + + + | Name | Relationship | Address | Phone | + + + + + | Kyaw Woodson | ECON | [place], [place] | | + + + + + | Barbara Cabrera | ECON | Unknown | | + + + + + | Dimple Hathaway | ECON | Unknown | | + + + + + Care Team Providers + +------+ + | Care Manager Regional Name | Role | Phone | + [...] + + | 05/11/ | Telephone | [facility] | Magdalena Pollard, | Catheter Removal | | 2019 | | INFECTIOUS DISEASE | Payroll Tax Analyst | (Seeing if PICC was | | | | [address] | | removed) | | | | [place] | | | | | | [address] | | | | | | [phone] | | | +--------+ + + + [...] [place] | | | | | | [address] | | | | | | | [...] | | | | | [place] [address] | | | | | | [phone] | | | | | | | | +--------+ + + + + | 11/25/ | Office | Nephrology | Kei Arthur MD | | | 2019 | Visit | | [address] [facility] | | | | | | [address] [place] | | | | | | [address] | | | | | | | | +--------+ + + + + documented as of this encounter Visit Diagnoses Not on filedocumented in this encounter"
--- OUTSIDE RECORDS SUMMARY | ~2019-10-02 | XMS | Encounter Summary ---
Demographics + + + | Address | [address] | | | [place] [address] | + + + | Home Phone [...] + + + | Author | [facility] | + + + | Organization | [facility] | + + + | Address | Unknown | + + + | Phone | Unavailable | + + + Support + + +---------+ + | Name | Relationship | Address | Phone | + + +---------+ + | Valentine Qiu | ECON | Unknown | | + + +---------+ + Care Team Providers + +------+ + | Care Mold Builder Name | Role | Phone | + +------+ + | Ifeanyi Call MD | PCP | | + +------+ + Reason for Visit + + + | Reason | Comments | + + + | New Patient Visit | | + + + Intake Referral [...] | Maculopathy | MD Aliya | ,PhD 0449 | | | | | or macular | Retina & | [address] | | | | | dystrophy | Macula | [address] | | | | | ou: unknown | [facility] | [address] | | | | | etiology. 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 | [facility] | [address] | telangiectasis of | | | | at [place] [address] | [address] | both eyes (Primary | | | | [address] | [place], [place] | Dx); LV (low | | | | Mailcode: [facility] | [address] | vision); Abnormal | | | | [place] [address] | [phone] | electroretinogram | | | | [phone] | | (ERG); Low vision, | | | | | | both eyes; Scotoma | | | | | | involving central | | | | | | area in visual | | | | | | field, bilateral; | | | | | | Subjective visual | | | | | | disturbance; | | | | | | Unqualified visual | | | | | | loss of both eyes | +--------+---------+ + + [...] encounter Progress Notes Danielito Crockett MD,PhD - 12/24/2016 9:00 AM PDT Ophthalmic Genetics New Patient Office Visit Referring Diagnosis: Possible Maculopathy Referring Physician: Aliya Goodrich MD [facility] [place] [address] Chief Complaint: blurry vision HPI: Alondra Caballero is a 46 y.o. female here for evaluation of blurry vision. Patient repo rts an onset of blurry vision a few years ago. She states it has not been correctable with g lasses. She states she is unable to read signs in the distance or captions on her TV. She st ates it is worse in her right eye. She also states she has not been able to read up close wi th her glasses for the past few years as well and needs to take them off. She states she is able to read well without them. She was informed that there are pockets of fluid in her eyes by her referring eye doctor. S he also states she has a small amount of diabetic retinopathy. She reports her diabetes is currently under good control. Patient has an extensive health history. Location: both eyes Quality/Vision Issues: decreased visual acuity - gradual onset, denies color discrimination , denies photoaversion Duration/Age of Onset: decreased visual acuity 3-4 yrs Severity (scale 0-10): n/a Timing/Context: progressive Modifying Factors: nothing makes it better Genetic ROS: History of methamphetamine, cranck, marijuana, heroine, cocaine use (stopped 6 yrs ago), diabetes since 21 y/o Family History: No unexplainable vision loss This patient is accompanied in the office by her daughter. Pain: No pain (0 of 0-10) Current Outpatient Prescriptions Medication acetaminophen 500 mg [...] hr multivitamin (ONE DAILY MULTIVITAMIN) oral tablet sodium bicarbonate 650 mg oral tablet spironolactone 50 mg oral tablet torsemide 20 mg oral tablet venlafaxine 225 mg oral tablet extended release 24hr No current facility-administered medications for this visit. Allergies Allergen Reactions Buprenorphine Hcl Hives and Rash Sulfacetamide Hives Sulfamethoxazole-Trimethoprim Hives Hydrocodone-Acetaminophen Rash Latex Hives Hives Meperidine Hcl Rash Methadone Nausea Stomach pains,shaky Sulfacetamide Sodium Rash Ibuprofen Renal Failure Ciprofloxacin Nausea and Vomiting Past Medical History (Nonocular): Past Surgical History (Nonocular): Past Medical History: Diagnosis Date Amputated finger Amputated left leg (HCC) Anemia Anxiety Cardiac defibrillator in situ Depression Diabetes (HCC) H/O shortness of breath HBP (high blood pressure) History of blood transfusion History of placement of ear tubes History of pneumonia Renal failure Seizure (HCC) 2009 meth induced Stented coronary artery No past surgical history on file. Past Ocular History: Myopia, astigmatism Tobacco: History Smoking Status Former Smoker Smokeless Tobacco Not on file Comment: smoked 15 years quit 09/21/2015 Review of Systems: Review of systems were reviewed by me at this visit utilizing Genetics patient questionnair e. Pertinent positives noted in history. All else unless noted was negative (fever, wt. ch angela, ENT, cardiovascular, respiratory, endocrine, GI, urinary, skin, muscle, bones, joints, neurologic, behavioral,endocrine, psychiatric, bleeding/blood disorders, AIDS/HIV, cancer o r tumors, arthritis) All else unless noted was negative (cataracts, retina, strabismus, amblyopia, low vision or blindness, refractive error, glaucoma, color or night blindness or unexplained vision loss) . Physical examination: Base Exam Visual Acuity (Snellen - Linear) Right Left Both Dist cc 20/100 20/60 -1 20/50 -1 Dist ph cc 20/60-1 20/50-2 Near cc J1 J1+ J1+ Tonometry (Tonopen, 10:09 AM) Right Left Pressure 14 15 Wearing Rx Sphere Cylinder Glide Right -5.75 +0.75 180 Left -6.50 +1.00 178 Type: SVL Manifest Refraction Sphere Cylinder Glide Dist Right -7.75 +0.75 177 20/50-2 Left -7.25 +0.25 180 20/40-2 Dilation Both eyes: 2.5% Phenylephrine, 1.0% Mydriacyl @ 10:09 AM Pupils Pupils Right PERRL Left PERRL Extraocular Movement Right Left Result Full, Ortho Full, Ortho Additional Tests Color Right Left Jolley - Redkey - Rittler 02/22 02/22 Slit Lamp and Fundus Exam External Exam Right Left External Normal Normal Slit Lamp Exam Right Left Lids/Lashes Normal Normal Conjunctiva/Sclera White and quiet White and quiet Cornea All layers clear All layers clear Anterior Chamber Deep and quiet Deep and quiet Iris Normal Normal Lens 1+ NSC 1+ NSC Vitreous Normal Normal Fundus Exam Right Left Disc Normal Normal C/D Ratio 0.35 0.35 Macula telangiectasia telangiectasia, pigment changes Vessels mild attenuation mild attenuation Periphery Normal Normal IJustin COA, performed, reviewed or revised the above history, medications, all ergies, as well as performed elements noted in the Base Ophthalmology Exam. Optos Fundus Photography Interpretation 12/23/2016 Color Clear [...] Domain OCT Interpretation 12/23/2016 Line scans showed discrete foveal loss of IS/OS, ONL thinning, and subfoveal fluid OU. RNFL mapping showed no thinning OD and no thinning OS. CFT (m) OD OS Fbfphkygb-up-svvm Action 12/23/2016 311 301 Multifocal ERG Interpretation 12/23/2016 Amplitude Density Plot [...] which is more indicative of a maculopathy. IMPRESSION Dx Macular Telangiectasia Type II - This patient's history, exam, and test results are most consistent with a diagnosis of ma cular telangiectasia type II. ICG is often required to distinguish leakage from underlying d isease versus an emerging small CNV when there is suspicion, however, there is no suspicion of CNV at this time. Diabetic Retinopathy w/o Neovascularization - Retinopathy is mild and mostly detected by fluorescein angiography. Recommend to be monit ored annually by local retina specialist. Plan Discussion Diagnosis and disease progression explained, and questions answered. Treatment None at this time. [facility] ophthalmic genetics as needed. Will need local retina specialist to monitor diabetic retinopathy and macular telangiectasi a. If patient would like to follow-up at [facility] in the future, recommend Dr. Paz Wei, MARQUIS Crockett M.D., Ph.D. Launch Commander [employer] Ophthalmic Genetics & Retinal Degeneration Ocular Immunology & Uveitis Physician attestation: The weatherization field technician, resident, or fellow are under the supervision of the attending physician an d are responsible for performing the following sections: RFV, ROS, PMH, PSH, SocHx, FH, Med list, Base Ophth Exam. The attending physician is responsible for the entire content of the note and has personally performed the HPI and the physical examination as well as reviewed a ny documentation by the resident or fellow and agreed with the findings and plan of care. documented in this enc ounter Plan of Treatment + + +--------+ + + | Name | Type | Priori | Associated Diagnoses | Order Schedule | | | | ty | | | + + +--------+ + + | RESEARCH | Research | Routin | LV (low vision) | Expected: 12/24/2016 | | VENIPUNCTURE ONLY | Blood Draw | e | | (Approximate), | | (PHLEBOTOMY DRAW) | | | | Expires: 01/23/2018 | + + +--------+ + + documented as of this encounter Procedures + +--------+ + + + | Procedure Name | Priori | Date/Time | Associated Diagnosis | Comments | | | ty | | | | + +--------+ + + + | [place] | Routin | 01/08/2017 | LV (low vision) | | | ELECTRORETINOGRAPHY | e | 11:11 PM | Type 2 macular | | | | | PDT | telangiectasis of | | | | | | both eyes Abnormal | | | | | | electroretinogram | | | | | | (ERG) Low vision, | | | | | | both eyes Scotoma | | | | | | involving central | | | | | | area in visual | | | | | | field, bilateral | | | | | | Subjective visual | | | | | | disturbance | | | | | | Unqualified visual | | | | | | loss of both eyes | | + +--------+ + + + | [place] | Routin | 01/08/2017 | LV (low vision) | | | ELECTRORETINOGRAPHY | e | 11:11 PM | Type 2 macular | | | | | PDT | telangiectasis of | | | | | | both eyes Abnormal | | | | | | electroretinogram | | | | | | (ERG) Low vision, | | | | | | both eyes Scotoma | | | | | | involving central | | | | | | area in visual | | | | | | field, bilateral | | | | | | Subjective visual | | | | | | disturbance | | | | | | Unqualified visual | | | | | | loss of both eyes | | + +--------+ + + + | [place] FLUORESCEIN | Routin | 01/08/2017 | LV (low vision) | | | ANGIOGRAPHY | e | 11:11 PM | Type 2 macular | | | | | PDT | telangiectasis of | | | | | | both eyes Abnormal | | | | | | electroretinogram | | | | | | (ERG) Low vision, | | | | | | both eyes Scotoma | | | | | | involving central | | | | | | area in visual | | | | | | field, bilateral | | | | | | Subjective visual | | | | | | disturbance | | | | | | Unqualified visual | | | | | | loss of both eyes | | + +--------+ + + + | [place] FLUORESCEIN | Routin | 01/08/2017 | LV (low vision) | | | ANGIOGRAPHY | e | 11:11 PM | Type 2 macular | | | | | PDT | telangiectasis of | | | | | | both eyes Abnormal | | | | | | electroretinogram | | | | | | (ERG) Low vision, | | | | | | both eyes Scotoma | | | | | | involving central | | | | | | area in visual | | | | | | field, bilateral | | | | | | Subjective visual | | | | | | disturbance | | | | | | Unqualified visual | | | | | | loss of both eyes | | + +--------+ + + + | [place] VISUAL FIELD | Routin | 01/08/2017 | LV (low vision) | | | EXAM,EXTENDED | e | 11:11 PM | Type 2 macular | | | | | PDT | telangiectasis of | | | | | | both eyes Abnormal | | | | | | electroretinogram | | | | | | (ERG) Low vision, | | | | | | both eyes Scotoma | | | | | | involving central | | | | | | area in visual | | | | | | field, bilateral | | | | | | Subjective visual | | | | | | disturbance | | | | | | Unqualified visual | | | | | | loss of both eyes | | + +--------+ + + + documented in this encounter Visit Diagnoses + + | Diagnosis | + + | 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
--- OUTSIDE RECORDS SUMMARY | ~2019-10-02 | XMS | Encounter Summary ---
Demographics + + + | Address | [address] | | | [place] [address] | + + + | Home Phone [...] + + + | Author | [facility] | + + + | Organization | [facility] | + + + | Address | Unknown | + + + | Phone | Unavailable | + + + Support + + +---------+ + | Name | Relationship | Address | Phone | + + +---------+ + | Valentine Qiu | ECON | Unknown | | + + +---------+ + Care Team Providers + +------+ + | Care Conduit Cleaner Name | Role | Phone | + +------+ + | Ifeanyi Call MD | PCP | | + +------+ + Reason for Visit + + + | Reason | Comments | + + + | New patient | | | consultation | | + + + | Referred by doctor | | + + + Benefits Check [...] | | | | | | | [address] | | | | | | | [address] | | [address] | | | | | | | [place], [place] | | | | | | | [address] | | | | | | | Phone: | | | | | | | [phone] | | | | | | | Fax: | | | | | | | [phone] | +--------+--------+ + + + + Encounter Details +--------+---------+ + + + | Date | Type | Department | Care Team | Description | +--------+---------+ + + + | 11/17/ | Office | [facility] | Jaelyn Watters, | Type 2 macular | | 2018 | Visit | [facility] at | [address] | telangiectasis of | | | | Sushila Randolph [address] | [address] | both eyes (Primary | | | | [address] | [place], [place] | Dx); Choroidal | | | | 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 Do not rub or touch your eye ? An clkr-vmf-prbxeqs pain reliever (i.e. Tylenol) can be used [...] questions documented in this encounter Progress Notes Surendra Russo - 11/17/2017 1:00 PM PSTFormatting of this note might be different from angela gutierrez. [facility] Progress Note 11/17/2017 Assessment & Plan: 47 y.o. 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 Downs Follow up: Return in about 4 weeks (around 12/15/2017). Chief Complaint: New patient consultation Referred by doctor HPI: Referred by Dr. Crockett. Presents with blurred vision at distance x several years that cannot be corrected with glas ses. Can't read with glasses on. Hx of floaters when blood sugars are uncontrolled. Hx of flashes of light - unsure laterality. Sensitivity to bright lights. Hx of headaches in the back of her eyes x 2 years. History of renal failure. History of heart stint and defibrillator. ROS Positive for: Cardiovascular, Respiratory, Psychiatric Last edited by Surendra Russo on 11/17/2017 1:06 PM. (History) Current Outpatient Prescriptions (Other) Medication Sig [...] M10 metoprolol succinate multivitamin Take by mouth. sodium bicarbonate Take by mouth. 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 No pertinent past surgical history. Family History Problem Relation Diabetes Mother Cancer Mother Glasses Mother Diabetes Father Cancer Father Diabetes Sister Glasses Sister Cancer Maternal Grandmother Glaucoma Maternal Grandmother Cancer Paternal Aunt Cancer Maternal Aunt Breast Cancer Maternal Aunt Cancer Cousin Glasses Daughter Glasses Son Glasses Son Glasses Sister Glaucoma Paternal Grandmother Macular degeneration Paternal Grandmother Retinal detachment Neg Hx Cataract Neg Hx Blindness Neg Hx Heart Disease Neg Hx Retinitis pigmentosa Neg Hx Strabismus Neg Hx Amblyopia Neg Hx Social History Occupational History Not on file. Social History Main Topics Smoking status: Former Smoker Smokeless tobacco: Never Used Comment: smoked 15 years quit 09/21/2015 Alcohol use Not on file Drug use: Unknown Sexual activity: Not on file Examination: See Ophthalmology Module Attestations: The composite bond technician, under the supervision of the physician, is responsible for performing the f ollowing sections: RFV, ROS, PMH, PSH, SocHx, FH, Med list, Base Ophth Exam. The attending physician is responsible for the entire content of the note and has personall y performed the HPI and the physical examination JAELYN WATTERS MD Tdocumented in this encounter Plan of Treatment Not on filedocumented as of this encounter Procedures + +--------+ + + + | Procedure Name | Priori | Date/Time | Associated Diagnosis | Comments | | | ty | | | | + +--------+ + + + | AVASTIN INJ - OS - | Routin | 11/17/2017 | Type 2 macular | Results for this | | LEFT EYE | e | 4:19 PM | telangiectasis of | procedure are in the | | | | PST | both eyes Retinal | results section. | | | | | edema of both eyes | | + +--------+ + + + | AVASTIN INJ - OD - | Routin | 11/17/2017 | Type 2 macular | Results for this | | RIGHT EYE | e | 4:19 PM | telangiectasis of | procedure are in the | | | | PST | both eyes Choroidal | results section. | | | | | neovascularization, | | | | | | both eyes Retinal | | | | | | edema of both eyes | | + +--------+ + + + | FLUORESCEIN | Routin | 11/17/2017 | Type 2 macular | Results for this | | ANGIOGRAPHY | e | 3:37 PM | telangiectasis of | procedure are in the | | | | PST | both eyes Choroidal | results section. | | | | | neovascularization, | | | | | | both eyes | | + +--------+ + + + | FUNDUS PHOTOS | Routin | 11/17/2017 | Type 2 macular | Results for this | | | e | 3:35 PM | telangiectasis of | procedure are in the | | | | PST | both eyes Choroidal | results section. | | | | | neovascularization, | | | | | | both eyes | | + +--------+ + + + | OCT, RETINA | Routin | 11/17/2017 | Type 2 macular | Results for this | | | e | 2:44 PM | telangiectasis of | procedure are in the | | | | PST | both eyes | results section. | + +--------+ + + + documented in this encounter Results AVASTIN INJECTION - OS - LEFT EYE (11/17/2017 4:19 PM PST) + + + | Narrative | Performed At | + + + | Pre-Procedure | | | Procedures, alternatives and risks discussed with patient. Questions | | | answered., confirmed correct patient, procedure, site and consent. | | | | | | | | | Anesthesia | | | Anesthesia: subconjunctival | | | Anesthetic Medication: Lidocaine Gel | | | | | | | | | Procedure | | | Preparation: betadine to ocular surface, eyelid speculum | | | | | | Needle: 30g | | | | | | | | | Injection: 1.25 mg bevacizumab 1.25 mg/0.05 mL | | | [facility] [place] 2]: [id number] | | | Lot: [id number] | | | Expiration Date: 11/25/2017 | | | Route: intravitreal | | [...] AVASTIN INJECTION - OD - RIGHT EYE (11/17/2017 4:19 PM PST) + + + | Narrative [...] bevacizumab 1.25 mg/0.05 mL | | | [facility] [place]NOTE 2]: [id number] | | | Lot: [id number] | | | Expiration Date: 11/25/2017 | | | Route: intravitreal | | [...] 0-10 scale. | | + + + FLUORESCEIN ANGIOGRAPHY (11/17/2017 3:37 PM PST) + + --+ | Narrative | Performed At | + + --+ | [facility] | [facility] | | DocumentationConsent: Informed consent obtained IV Inejction: 5cc of | [facility] | | 10% fluoroscein sodium injected, hand Right EyeQuality: good | | | Type: Optos Left EyeQuality: good Type: Optos Provider | | | DocumentationRight EyeTransit: normal transit time | | | Interprepatation: area of well defined early hyperfluorescence with | | | late leakage Left EyeTransit: normal transit time | | | Interprepatation: area of well defined early hyperfluorescence with | | | late leakage NotesInformed consent was obtained for fluorescein | | | angiography. Gelacio Norris administered five milliliters of 10% | | | fluorescein sodium injected into the left hand vein without | | | complication. The patient tolerated the procedure well. | | |Type: Optos | | | | | | | | |Provider Documentation | | |Right Eye | | |Transit: normal transit time | | |Interprepatation: area of well defined early hyperfluorescence with late | | |leakage | | | | | | | | |Left Eye | | |Transit: normal transit time | | |Interprepatation: area of well defined early hyperfluorescence with late | | |leakage | | | | | | | | |Notes | | |Informed consent was obtained for fluorescein angiography. Gelacio Norris | | |administered five milliliters of 10% fluorescein sodium injected into the | | |left hand vein without complication. The patient tolerated the procedure | | |well. | | + + --+ + + + + + | Performing | Address | City/State/Zipcode | Phone Number | | Organization | | | | + + + + + | [facility] | [address] | [place] [address] | | | INSTITUTE | [address] | | | + + + + + FUNDUS PHOTOS (11/17/2017 3:35 PM PST) + + + | Narrative | Performed At | + + + | [facility] | [facility] | | DocumentationType was Optos. NotesRight Eye:Disc: Normal | [facility] | | 0.35Macula: telangiectasia no definite heme but elevatedVessels: | | | mild attenuationPeriphery: Normal Left Eye: Disc: Normal | | | 0.35Macula: telangiectasia, pigment changes with superior hemeVessels: | | | mild attenuationPeriphery: Normal | | |Macula: telangiectasia no definite heme but elevated | | |Vessels: mild attenuation | | |Periphery: Normal | | | | | |Left Eye: | | |Disc: Normal 0.35 | | |Macula: telangiectasia, pigment changes with superior heme | | |Vessels: mild attenuation | | |Periphery: Normal | | | | | + + + + + + + + | Performing | Address | City/State/Zipcode | Phone Number | | Organization | | | | + + + + + | [facility] | [address] | [place] [address] | | | [place] | [place]. | | | + + + + + KERRY CASTRO (11/17/2017 2:44 PM PST) + + + | Narrative | Performed At | + + + | [facility] | [facility] | | DocumentationRight EyeQuality: good Central macular thickness: | [facility] | | 253 Segmentation: accurate Left EyeQuality: good Central | | | macular thickness: 307 Segmentation: accurate Provider | | | DocumentationRight EyeContour: central atrophy, worse (Nasal CNVM) | | | Left EyeContour: central thickening, worse (CNVM) | | | | | | | | |Left Eye | | |Quality: good | | | | | |Central macular thickness: 307 | | |Segmentation: accurate | | | | | | | | |Provider Documentation | | |Right Eye | | |Contour: central atrophy, worse (Nasal CNVM) | | | | | | | | |Left Eye | | |Contour: central thickening, worse (CNVM) | | + + + + + + + + | Performing | Address | City/State/Zipcode | Phone Number | | Organization | | | | + + + + + | [facility] | [address] | [place] [address] | | | [place] | [place]. | [...] +---------+------+--------+ | bevacizumab (AVASTIN) | Given | 11/18/19 | 1.25 mg | | Right | | intravitreal injection 1.25 mg | | 18 4:19 | | | Eye | | 1.25 mg, ONCE NEEDED, 1 dose, | | PM PST | | | | | Starting [facility] 11/17/17 at 1619, | | | | | | | Until [facility] 11/17/17 at 1619 | | | | | | + +--------+ +---------+------+--------+ +---+---+ | | | +---+---+ + +-------+ +---------+---+ + | bevacizumab (AVASTIN) | Given | 11/18/19 | 1.25 mg | | Left Eye | | intravitreal injection 1.25 mg | | 18 4:19 | | | | | 1.25 mg, ONCE NEEDED, 1 dose, | | PM PST | | | | | Starting [facility] 11/17/17 at 1619, | | | | | | | Until [facility] 11/17/17 at 1619 | | | | | | + +-------+ +---------+---+ + +---+---+ | | | +---+---+ documented in this encounter"
--- OUTSIDE RECORDS SUMMARY | ~2019-10-02 | XMS | Encounter Summary ---
Demographics + + + | Address | [address] | | | [place] [address] | + + + | Home Phone [...] Organization | [facility] | | | and [place] | + + + | Address | Unknown | + + + | Phone | Unavailable | + + + Support + + + + + | Name | Relationship | Address | Phone | + + + + + | Kyaw Woodson | ECON | [place], [place] | | + + + + + | Barbara Cabrera | ECON | Unknown | | + + + + + | Dimple Hathaway | ECON | Unknown | | + + + + + Care Team Providers + +------+ + | Care Therapy Coordinator Name | Role | Phone | + +------+ + | Daniel Land NP | PCP | | + +------+ + Encounter Details +--------+ + + + + | Date | Type | Department | Care Team | Description | +--------+ + + + + | 02/17/ | Orders Only | [facility] | Conversion | | | 2016 | | [place] [place] | Transaction, | | | | | [address] | Provider Unknown | | | | | [address] [place] [address] | [phone] | | | | | [address] | | | | | | [phone] | | | +--------+ + + + [...] [place] | | | | | | [address] | | | | | | | [...] | | | | | [place] [address] | | | | | | [phone] | | | | | | | | +--------+ + + + + | 11/25/ | Office | Nephrology | Kei Arthur MD | | | 2019 | Visit | | [address] [facility] | | | | | | [address] [place] | | | | | | [address] | | | | | | | | +--------+ + + + + documented as of this encounter Procedures + +--------+ + + + | Procedure Name | Priori | Date/Time | Associated Diagnosis | Comments | | | ty | | | | + +--------+ + + + | EXTERNAL LAB: CBC | Routin | 02/18/2016 | | Results for this | | | e | 12:00 AM | | procedure are in the | | | | PDT | | results section. | + +--------+ + + + | IRON AND IRON | Routin | 02/18/2016 | | Results for this | | BINDING CAPACITY | e | 12:00 AM | | procedure are in the | | | | PDT | | results section. | + +--------+ + + + | URINALYSIS WITH | Routin | 02/18/2016 | | Results for this | | MICROSCOPIC WITH | e | 12:00 AM | | procedure are in the | | CULTURE IF INDICATED | | PDT | | results section. | + +--------+ + + + | HEMOGLOBIN AND | Routin | 02/18/2016 | | Results for this | | HEMATOCRIT | e | 12:00 AM | | procedure are in the | | | | PDT | | results section. | + +--------+ + + + | PROTEIN/CREATININE | Routin | 02/18/2016 | | Results for this | | RATIO, URINE | e | 12:00 AM | | procedure are in the | | | | PDT | | results section. | + +--------+ + + + | URIC ACID | Routin | 02/18/2016 | | Results for this | | | e | 12:00 AM | | procedure are in the | | | | PDT | | results section. | + +--------+ + + + | MAGNESIUM | Routin | 02/18/2016 | | Results for this | | | e | 12:00 AM | | procedure are in the | | | | PDT | | results section. | + +--------+ + + + | FERRITIN | Routin | 02/18/2016 | | Results for this | | | e | 12:00 AM | | procedure are in the | | | | PDT | | results section. | + +--------+ + + + | RENAL FUNCTION PANEL | Routin | 02/18/2016 | | Results for this | | | e | 12:00 AM | | procedure are in the | | | | PDT | | results section. | + +--------+ + + + documented in this encounter Results Hemoglobin and Hematocrit (02/18/2016 12:00 AM PDT) + + + + + + | Component | Value | Ref Range | Performed | Pathologist | | | | | At | Signature | + + + + + + | Hgb | 10.2 (A) | 12.0 - 16.0 | EXTERNAL | | | | | g/dL | LAB | | + + + + + + | Hematocrit, | 31.7 (A) | 35 - 45 % | [...] + +---------+ + + Urinalysis with Microscopic with Culture if Indicated (02/18/2016 12:00 AM PDT) + + + [...] + + + | Glucose, | Comment: 100 | | EXTERNAL | | | Urine | | | LAB | | + + + + + + | WBC, UA | 5 (A) | 0 - 4 | EXTERNAL | | | | | | LAB | | + + + + + + | RBC, UA | 0 | 0 - 4 | EXTERNAL | | | | | | LAB | | + + + + + + | Epithelial | Squamous1+ | 0-1+ squamous | EXTERNAL | | | Cells | | | LAB | | + + + + + + | Bacteria, | Comment: 1+ | | EXTERNAL | | | UA [...] + + Iron and Iron Binding Capacity (02/18/2016 12:00 AM PDT) + + + + + + | Component | Value | Ref Range | Performed | Pathologist | | | | | At | Signature | + + + + + + | Iron | 84.93 | 37 - 160 | EXTERNAL | | | | | | LAB | | + + + + + + | Iron | 17.6 (A) | 20 - 55 | EXTERNAL | | | Saturation | | | LAB | | + + + + + + | TIBC | 483 (A) | 245 - 400 | EXTERNAL | | | | | | LAB | | + + + + + + + + | Specimen | + + | Blood specimen | | (specimen) | + + + + + | Narrative | Performed At | + + + | [facility] [address] | EXTERNAL LAB | + + + + +---------+ + + | Performing | Address | City/State/Zipcode | Phone Number | | Organization | | | | + +---------+ + + | EXTERNAL LAB | | | | + +---------+ + + Protein/Creatinine Ratio, Urine (02/18/2016 12:00 AM PDT) + + + + + + | Component | Value | Ref Range | Performed | Pathologist | | | | | At | Signature | + + + + + + | Protein/Cre | 750.0 (A) | 0 - 150 | EXTERNAL | | | at Ratio | | | LAB | | + + + + + + + + | Specimen | + + | Urine specimen | | (specimen) | + + + + + | Narrative | Performed At | + + + | PROTEIN, URINE -30 - 0.0- 50.0 CREATININE, URINE - 40 | EXTERNAL LAB | + + + + +---------+ + + | Performing | Address | City/State/Zipcode | Phone Number | | Organization | | | | + +---------+ + + | EXTERNAL LAB | | | | + +---------+ + + External Lab: CBC (02/18/2016 12:00 AM PDT) [...] | + +---------+ + + Uric Acid (02/18/2016 12:00 AM PDT) + +---------+ + + + | Component | Value | Ref Range | Performed | Pathologist | | | | | At | Signature | + +---------+ + + + | Uric Acid | 8.4 (A) | 2.3 - 6.6 | EXTERNAL [...] | | + +---------+ + + Magnesium (02/18/2016 12:00 AM PDT) + +-------+ + + [...] | | + +---------+ + + Ferritin (02/18/2016 12:00 AM PDT) + + + + + + | Component | Value | Ref Range | Performed | Pathologist | | | | | At | Signature | + + + + + + | Ferritin, | 827.3 (A) | 13 - 150 ng/mL | EXTERNAL | | | External | | | LAB | | + + + + + + + + | Specimen | + + | Blood specimen | | (specimen) | + + + + + | Narrative | Performed At | + + + | [facility] [address] - 344.98 - 192 -382 | EXTERNAL LAB | + + + + +---------+ + + | Performing | Address | City/State/Zipcode | Phone Number | | Organization | | | | + +---------+ + + | EXTERNAL LAB | | | | + +---------+ + + Renal Function Panel (02/18/2016 12:00 AM PDT) + + + + + + | Component | Value | Ref Range | Performed | Pathologist | | | | | At | Signature | + + + + + + | Glucose, | 255 (A) | 70 - 100 mg/dL | EXTERNAL | | | Fasting | | | LAB | | + + + + + + | BUN | 30 (A) | 6 - 23 mg/dL | EXTERNAL | | | | | | LAB | | + + + + + + | Creatinine | 1.99 (A) | 0.60 - 1.35 | EXTERNAL [...] + + + + | Cl | 93 (A) | 95 - 112 mmol/L | EXTERNAL [...] | | | LAB | | | [facility] | | | | | + + + + + + | Phosphorus, | 4.3 | 2.5 - 5.0 | EXTERNAL | | | Inorganic | | | LAB | | + + + + + + | BUN/Creatin | 15.1 | 6.0 - 28.6 | EXTERNAL | | | ine Ratio | | | LAB | | + + + + + + | Calcium | 10.4 (A) | 8.4 - 10.2 | EXTERNAL | [...]
--- OUTSIDE RECORDS SUMMARY | ~2019-10-02 | XMS | Encounter Summary ---
Demographics + + + | Address | [address] | | | [place] [address] | + + + | Home Phone | | + + + | Preferred Language | Unknown | + + + | Marital Status | Single | + + + | Rastafari Affiliation | UNK | + + + [...] Team Providers + +------+ + | Care Esthetician Facialist Name | Role | Phone | + [...] | | | | | | | [address] | | | | | | | [address] | | | | | | | [place], [place] | | | | | | | [address] | | | | | | | Phone: | | | | | | | [phone] | | | | | | | Fax: | | | | | | | [phone] | +--------+--------+ + + + + Encounter Details +--------+---------+ + + + | Date | Type | Department | Care Team | Description | +--------+---------+ + + + | 11/17/ | Office | [facility] | Jaelyn Watters, | Type 2 macular | | 2018 | Visit | [facility] at | [address] | telangiectasis of | | | | Sushila Soldier [address] | [address] | both eyes (Primary | | | | [address] | [place], [place] | Dx); Choroidal | | | | Mailcode: [facility] | [id number] | neovascularization, | | | | [place] [address] | [phone] | both eyes; Retinal | | | | [phone] | | edema of both eyes | [...] rub or touch your eye ? An titx-eat-gvkjzoq pain reliever (i.e. Tylenol) can be used [...] note might be different from angela gutierrez. 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 Stented coronary artery History [...] file Examination: See Ophthalmology Module Attestations: The technician inventory specialist, under the supervision of the physician, is [...] bevacizumab 1.25 mg/0.05 mL | | | [facility]: [id number] | | | Lot: [id number] | | | Expiration Date: 11/25/2017 | [...] bevacizumab 1.25 mg/0.05 mL | | | [facility]: [id number] | | | Lot: [id number] | | | Expiration Date: 11/25/2017 | [...] Performed At | + + --+ | Beauty Culture Teacher | [facility] | | DocumentationConsent: Informed [...] | + + + + + | [facility] | [address] | [place] [address] | | | INSTITUTE | [address] | | | + + + + + FUNDUS PHOTOS (11/17/2017 3:35 PM PST) + + + | Narrative | Performed At | + + + | [facility] Culture Teacher | [facility] | | DocumentationType was [...] [facility] | [address] | [place] [address] | | | [place] | [place]. | | | + + + + + KERRY CASTRO (11/17/2017 2:44 PM PST) + + + | Narrative | Performed At | + + + | Beauty Culture Teacher | [facility] | | DocumentationRight EyeQuality: [...] + + | [facility] | [address] | [place] [address] | | | [place] | [place]. | [...] PST | | | | | Starting [facility] 11/17/17 at 1619, | | | | | | | Until [facility] 11/17/17 at 1619 | | | [...]
--- OUTSIDE RECORDS SUMMARY | ~2019-10-02 | XMS | Encounter Summary ---
Demographics + + + | Address | [address] | | | [place] [address] | + + + | Home Phone [...] + + + | Author | [facility] | + + + | Organization | [facility] | + + + | Address | Unknown | + + + | Phone | Unavailable | + + + Support + + +---------+ + | Name | Relationship | Address | Phone | + + +---------+ + | Valentine Qiu | ECON | Unknown | | + + +---------+ + Care Team Providers + +------+ + | Care Blueprint Machine Operator Name | Role | Phone | + +------+ + | Ifeanyi Call MD | PCP | | + +------+ + Reason for Visit + + + | Reason | Comments | + + + | Decreased vision | mfERG & ffERG (ISCEV) | + + + Intake Referral (Routine) +--------+--------+ + + + + | Status | Reason | Specialty | Diagnoses / | Referred By | Referred To | | | | | Procedures | Contact | Contact | +--------+--------+ + + + + | Closed | | Ophthalmology | Diagnoses | Chern, | Danielito Crockett, | | | | | Maculopathy | MD Aliya | ,PhD 5698 | | | | | or macular | Retina & | SW | | | | | dystrophy | Macula | Carrie | | | | | ou: unknown | [facility] | [address] | | | | | etiology. | [address] | [place], [place] | | | | | | Road NE | [address] | | | | | | [address] | Phone: | | | | | | [place], [place] | [phone] | | | | | | [address] | Fax: | | | | | | Phone: | [phone] | | | | | | [phone] | | | | | | | Fax: | | | | | | | [phone] | | +--------+--------+ + + + + Encounter Details +--------+ + + + + | Date | Type | Department | Care Team | Description | +--------+ + + + + | 04/06/ | Procedure | [facility] | Erg, Cei [address] | Decreased vision | | 2017 | | [facility] | Sivakumar Sandhu | (mfERG & ffERG | | | | at [facility] [address] [place], [place] | ([facility])) | | | | [address] | [address] | | | | | Mailcode: CE | | | | | | [place] [address] | | | | | | [phone] | | | +--------+ + + + [...] + + documented as of this encounter Humble Tamez - 12/23/2016 1:00 PM PDT Alondra Caballero is a 46 year old F with maculopathy or macular dystrophy here for mfER G & ffERG. Patient is accompanied by her daughter. Referring Doctor: Dr Aliya Goodrich Electrode OD: 1127 ERG Number: [id number] & [id number] Electrode OS: 5116 ERG Type: mfERG & ffERG ([facility]) Electrode mf: 1127 ERG Cylinder Head Assembler: Humble Glaser Dilation: Arrived dilated Pupil OD: 9 Pupil OS: 9 Remarks: MfERG: Able to see 'x' OU. Patient unable to place face fully forward in chin rest due to restric emanuel positioning of wheelchair. All runs were completed OU. FfERG: Dark adapt time: 49 min Patient tolerated testing well. Strong blink present in dim scotopic flashes. Positioning difficult due to wheelchair. Multifocal ERG Methods: The mfERG testing was done for each eye separately using the [employer] system with 6.0.3 PicsaStock software with a Burian-Chin bipolar contact lens electrode and 0.5% proparacaine topic al anesthesia. Pupils were dilated to 9.0 mm OU. A -2 D lens was used OD and a -3 lens use d for OS for the 40 cm test distance. The monitor was the 21-inch ScheduleSoft high-intensity mon ochromatic unit with a refresh rate of 75 Hz. The stimulus consisted of 103 hexagon element s that covered the central field out to approximately 20 degrees from fixation. The hexagon s were modulated between a light (200 cd/m2) and dark (2 cd/m2) state according to markos daily m sequence (m-sequence exponent = 15). The fixation target was a small cross in the center hexagon, which the patient could 'see'. The signals were amplified 100,000 time s with a bandpass of 10-300 Hz using the Lindsey Shell P511 preamplifiers. Testing was split into 8 fifty-second test segments with brief rest periods in between. Scalar-product tracings, ring arrays, amplitudes, implicit times, scalar-product plots, and plot numeric values were examined for both first- and second-order components of the multif ocal ERG and were compared with normals. Three iterations of artifact removal but no additi onal spatial averaging were applied to the first-order responses. One iteration of 17% spat ial averaging was used for second-order responses. Multifocal ERG Interpretation 12/23/2016: see clinic note for interpretation Full Field ERG Interpretation 12/23/2016: see clinic note for interpretation Humble Crockett M.D., Ph.D. Psychologist Research Assistant Ophthalmic Genetics & Retinal Degeneration Ocular Immunology & Uveitis documented in this encount er Plan of Treatment Not on filedocumented as of this encounter Visit Diagnoses + + | Diagnosis | + + | Macular dystrophy Hereditary retinal dystrophy, unspecified | + + documented in this encounter"
--- OUTSIDE RECORDS SUMMARY | ~2019-10-02 | XMS | Encounter Summary ---
Demographics + + + | Address | [address] | | | [place] [address] | + + + | Home Phone | | + + + | Preferred Language | Unknown | + + + | Marital Status | Single | + + + | Taoist Affiliation | 1041 | + + + | Race | Unknown | + + + | Ethnic Group | Unknown | + + + Author + + + | Author | [facility] | | | and [place] | + + + | Organization | [facility] | | | and [place] | + + + | Address | Unknown | + + + | Phone | Unavailable | + + + Support + + + + + | Name | Relationship | Address | Phone | + + + + + | Kyaw Woodson | ECON | [place], [place] | | + + + + + | Barbara Cabrera | ECON | Unknown | | + + + + + | Dimple Hathaway | ECON | Unknown | | + + + + + Care Team Providers + +------+ + | Care Produce Team Member Name | Role | Phone | + [...] + + | 06/07/ | Telephone | [facility] | Kei Arthur MD | Other (Patient call) | | 2019 | | [facility] | [address] [place] | | | | | [address] [place] | [address] [place] | | | | | [address] [place] | [address] | | | | | [address] | | | | | | [phone] | | | +--------+ + + + [...] | | | | | [address] [facility] | | | | | | [place] | | | | | | [address] | | | | | | | [...] | | | | | [place] [address] | | | | | | [phone] | | | | | | | | +--------+ + + + + | 11/25/ | Office | Nephrology | Kei Arthur MD | | | 2020 | Visit | | [address] [facility] | | | | | | [address] [facility] [place] | | | | | | [address] | | | | | | | | +--------+ + + + + documented as of this encounter Visit Diagnoses Not on filedocumented in this encounter"
--- OUTSIDE RECORDS SUMMARY | ~2019-10-02 | XMS | Encounter Summary ---
Demographics + + + | Address | [address] | | | [place] [address] | + + + | Home Phone | | + + + | Preferred Language | Unknown | + + + | Marital Status | Single | + + + | Episcopal Affiliation | 1041 | + + + | Race | Unknown | + + + | Ethnic Group | Unknown | + + + Author + + + | Author | [facility] | | | and [place] | + + + | Organization | [facility] | | | and [place] | + + + | Address | Unknown | + + + | Phone | Unavailable | + + + Support + + + + + | Name | Relationship | Address | Phone | + + + + + | Kyaw Woodson | ECON | [place], [place] | | + + + + + | Barbara Cabrera | ECON | Unknown | | + + + + + | Dimple Hathaway | ECON | Unknown | | + + + + + Care Team Providers + +------+ + | Care Embroidery Supervisor Name | Role | Phone | + +------+ + | Daniel Land NP | PCP | | + +------+ + Encounter Details +--------+ + + + + | Date | Type | Department | Care Team | Description | +--------+ + + + + | 06/10/ | Orders Only | [facility] | Conversion | | | 2017 | | NEPHROLOGY [place] | Transaction, | | | | | [address] [facility] [address] | Provider Unknown | | | | | [address] [facility] [place] | | | | | | [address] | (Fax) | | | | | [phone] | | | +--------+ + + + [...] [address] | | | | | | [facility] | | | | | | [place] | | | | | | [address] | | | | | | | [...] [address] | | | | | | [place] [address] | | | | | | [phone] | | | | | | | | +--------+ + + + + | 11/25/ | Office | Nephrology | Kei Arthur MD | | | 2019 | Visit | | [address] [facility] | | | | | | [address] [facility] | | | | | | [address] | | | | | | | [...] - 1.030 | EXTERNAL | | | [place] | | | LAB | | + [...] | | | LAB | | | [place] | | | | | + + [...]
--- OUTSIDE RECORDS SUMMARY | ~2019-10-02 | XMS | Encounter Summary ---
Demographics + + + | Address | [address] | | | [place] [address] | + + + | Home Phone [...] Organization | [facility] | | | and [place] | + + + | Address | Unknown | + + + | Phone | Unavailable | + + + Support + + + + + | Name | Relationship | Address | Phone | + + + + + | Kyaw Woodson | ECON | [place], [place] | | + + + + + | Barbara Cabrera | ECON | Unknown | | + + + + + | Dimple Hathaway | ECON | Unknown | | + + + + + Care Team Providers + +------+ + | Care Agricultural Equipment Mechanic Name | Role | Phone | + +------+ + | No, Physician | PCP | Unavailable | + +------+ + Encounter Details +--------+ + + + + | Date | Type | Department | Care Team | Description | +--------+ + + + + | 03/16/ | Orders Only | [facility] | Conversion | | | 2018 | | ENDOCRINOLOGY [address] | Transaction, | | | | | [address] | Provider Unknown | | | | | [place], [place] | | | | | | [address] | (Fax) | | | | | [phone] | | | +--------+ + + + [...] | | | | | [address] [facility] | | | | | | [place] | | | | | | [address] | | | | | | | [...] | | | | | [place] [address] | | | | | | [phone] | | | | | | | | +--------+ + + + + | 11/25/ | Office | Nephrology | Kei Arthur MD | | | 2019 | Visit | | [address] [facility] | | | | | | [address] [place], [place] | | | | | | [address] | | | | | | | [...]
--- OUTSIDE RECORDS SUMMARY | ~2019-10-02 | XMS | Encounter Summary ---
Demographics + + + | Address | [address] | | | [place] [address] | + + + | Home Phone [...] | [facility] | | | and [place] | + + + | Address | Unknown | + + + | Phone | Unavailable | + + + Support + + + + + | Name | Relationship | Address | Phone | + + + + + | Kyaw Woodson | ECON | [place], [place] | | + + + + + | Barbara Cabrera | ECON | Unknown | | + + + + + | Dimple Hathaway | ECON | Unknown | | + + + + + Care Team Providers + +------+ + | Care Jailer Chief Name | Role | Phone | + [...] + + | 06/26/ | Office | [facility] | Ro Breen, DNP | S/P AKA (above knee | | 2019 | Visit | VASCULAR SURGERY | [address] | amputation), right | | | | [address] [place] | [place], [place] | ([facility]) (Primary Dx); | | | | [place], [place] | [address] | 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 [address] Office: [phone] DATE OF VISIT: 06/26/2019 PATIENT NAME: Alondra Caballero : 1970; AGE: 49 y.o.; Sex:F PHONE NUMBER: ; ; PROVIDER: Ro Breen DNP PRIMARY CARE / REFERRING PHYSICIAN: No ref. provider found / Jennyfer Gresham MD / [address] [facility] / [place] [address] REASON FOR EVALUATION / CHIEF COMPLAINT: Vascular Surgery Postoperative Visit for righ t pnzsb-[id number] The patient presents today for a Vascular Surgery Postoperative Visit. The patient is statu s post right pblbk-ylsf-aftygbkuxh, which was performed on 04/14/2019 at the [facility]. The patient is not having any pain. The patient denies fever , wound drainage, increasing redness, pus, increasing pain, increasing swelling. Physical ex amination revealed surgical incision is healed. 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 She stays at [facility] and they have been taking care of [...] discussed. Keep good glycemic control. Morteza turner [facility] was in to for prosthesis evaluation. Patient not able to wear stump protector at this time due to right groin wound. 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 Patient can not wear prosthesis until right groin wound is healed. Discussed with patient to follow up with her in 3 months until she heals her right groin wound, patient declined to s [facility] follow up appointment. Follow up PRN. Ro [...] [address] | | | | | | [facility] | | | | | | [place] | | | | | | [address] | | | | | | | [...] 206 | | | | | | [place] [address] | | | | | | [phone] | | | | | | | | +--------+ + + + + | 11/25/ | Office | Nephrology | Kei Arthur MD | | | 2019 | Visit | | [address] [facility] [place] | | | | | | [address] [place] | | | | | | [address] | | | | | | | [...]
--- OUTSIDE RECORDS SUMMARY | ~2019-10-02 | XMS | Encounter Summary ---
Demographics + + + | Address | [address] | | | [place] [address] | + + + | Home Phone [...] + | Organization | [facility] | | | and [place] | + + + | Address | Unknown | + + + | Phone | Unavailable | + + + Support + + + + + | Name | Relationship | Address | Phone | + + + + + | Kyaw Woodson | ECON | [place], [place] | | + + + + + | Barbara Cabrera | ECON | Unknown | | + + + + + | Dimple Hathaway | ECON | Unknown | | + + + + + Care Team Providers + +------+ + | Care Final Inspector Shuttle Name | Role | Phone | + +------+ + PCP | Unavailable | + +------+ + Encounter Details +--------+ + + + + | Date | Type | Department | Care Team | Description | +--------+ + + + + | 05/14/ | Hospital | [facility] | Dung Khan MD | | | 1999 | Encounter | [facility] | [address] | | | | | CENTER [address] [place], [place] | | | | | [address] | [id number] | | | | | [place], [place] | | | | | | [address] | | | | | | [phone] | | | +--------+ + + + [...] [address] | | | | | | [facility] | | | | | | [place] | | | | | | [id number] | | | | | | | [...] | | | | | [place] [address] | | | | | | [phone] | | | | | | | | +--------+ + + + + | 11/25/ | Office | Nephrology | Kei Arthur MD | | | 2020 | Visit | | [address] [facility] | | | | | | [address] [place] | | | | | | [address] | | | | | | | | +--------+ + + + + documented as of this encounter Visit Diagnoses Not on filedocumented in this encounter"
--- OUTSIDE RECORDS SUMMARY | ~2019-10-02 | XMS | Encounter Summary ---
Demographics + + + | Address | [address] | | | [place] [address] | + + + | Home Phone | | + + + | Preferred Language | Unknown | + + + | Marital Status | Single | + + + | Adventist Affiliation | UNK | + + + [...] Team Providers + +------+ + | Care Onsite Case Manager Name | Role | Phone | + +------+ + | Ifeanyi Call MD | PCP | | + +------+ + Encounter Details +--------+ + + + + | Date | Type | Department | Care Team | Description | +--------+ + + + + | 09/02/ | Head Of Physics | [facility] | Danielito Crockett MD,PhD | Maculopathy (Primary | | 2016 | | [facility] | [address] | Dx); Macular | | | | at [facility] [address] | [address] | dystrophy | | | | [facility] | [place], [place] | | | | | Mailcode: [facility] | [address] | | | | | [place] [address] | [phone] | | | | | [phone] | | | +--------+ + + + [...]
--- OUTSIDE RECORDS SUMMARY | ~2019-10-02 | XMS | Encounter Summary ---
Demographics + + + | Address | [address] | | | [place] [address] | + + + | Home Phone [...] | [facility] | | | and [place] | + + + | Address | Unknown | + + + | Phone | Unavailable | + + + Support + + + + + | Name | Relationship | Address | Phone | + + + + + | Kyaw Woodson | ECON | [place], [place] | | + + + + + | Barbara Cabrera | ECON | Unknown | | + + + + + | Dimple Hathaway | ECON | Unknown | | + + + + + Care Team Providers + +------+ + | Care Table Keeper Name | Role | Phone | + +------+ + | Jennyfer Gresham MD | PCP | | + +------+ + Encounter Details +--------+ + + + + | Date | Type | Department | Care Team | Description | +--------+ + + + + | 11/08/ | Orders Only | [facility] | Mari Mcdaniel, | | | 2019 | | CARDIOLOGY [place] | [address] | | | | | [address] | [address] [place], [place] | | | | | [place], [place] | [address] | | | | | [address] | | | | | | [phone] | | | +--------+ + + + [...] [place] | | | | | | [address] | | | | | | | [...] | | | | | [place] [address] | | | | | | [phone] | | | | | | | | +--------+ + + + + | 11/25/ | Office | Nephrology | Kei Arthur MD | | | 2020 | Visit | | [address] | | | | | | [address] [place] | | | | | | [address] | | | | | | | | +--------+ + + + + documented as of this encounter Visit Diagnoses Not on filedocumented in this encounter"
--- OUTSIDE RECORDS SUMMARY | ~2019-10-02 | XMS | Encounter Summary ---
Demographics + + + | Address | [address] | | | [place] [address] | + + + | Home Phone [...] | Organization | [facility] | | | and [place] | + + + | Address | Unknown | + + + | Phone | Unavailable | + + + Support + + + + + | Name | Relationship | Address | Phone | + + + + + | Kyaw Woodson | ECON | [place], [place] | | + + + + + | Barbara Cabrera | ECON | Unknown | | + + + + + | Dimple Hathaway | ECON | Unknown | | + + + + + Care Team Providers + +------+ + | Care Director Internal Control Name | Role | Phone | + +------+ + | No, Physician | PCP | Unavailable | + +------+ + Encounter Details +--------+ + + + + | Date | Type | Department | Care Team | Description | +--------+ + + + + | 04/13/ | Hospital | [facility] | Altaf Ramires | Septic shock ([facility]); | | 2019 - | Encounter | [facility] | MD Padmini [address] | Moderate episode of | | | | CARE FLOOR [address] [place], [place] | recurrent major | | 04/26/ | | [address] | [address] | depressive disorder | | 2019 | | [place], [place] | | ([facility]); Type 2 | | | | [address] | | diabetes mellitus | | | | [phone] | | with diabetic | | | | | | nephropathy, with | | | | | | long-term current | | | | | | use of insulin ([facility]) | +--------+ + + + + Social [...] Summaries by Pop Reyes MD at 04/26/19 110 Author: Pop Reyes MD Service: Hospitalist Author Type: Physician Filed: 04/26/19 1721 Date of Service: 04/26/191107 Status: Signed Airplane And Engine Inspector: Pop Reyes MD (Physician) [facility] Service: Hospitalist Physician Discharge Summary Patient ID: Alondra Caballero [id number] 49 y.o. 1970 Admit date: 04/13/2019 Consults: [...] of left BKA who was transferred from [facility] with worsening swelling of the right leg, [...] Ro Breen DNP [address] [place] [address] Follow up in 2 week(s) [facility] [address], [place] [address] [phone] Schedule an appointment as soon as possible for a visit in 1 week(s) JEN ThapaP [address] [place] [place] [address] Go on 04/30/2019 8:00 AM Zuhair Covarrubias MD [address] [place] [address] Follow up in 1 week(s) Follow up of SC study Kristina Coto MD [facility] [address] [facility] [address] [place] [address] Follow up Endocrinology Daniel Bhakta [facility] [address] [facility] [place] [address] Medication List START taking these medications cefTRIAXone [...] Note by Marlene Guillermo RN at 04/26/19 8338 Author: Marlene Guillermo RN Service: (none) Author Type: Registered Nurse Filed: 04/26/19 1233 Date of Service: 04/26/19 1231 Status: Signed Airplane And Engine Inspector: Marlene Guillermo RN (Registered Nurse) RN report called to Shanta at [facility]. Marlene Guillermo RN onver jessica Transaction, Provider Unknown - 04/26/2019 10:51 AM PDT Nurse Progress Note by Shama Rawls RN at 04/26/19 105 Author: Shama Rawls RN Service: Wound/Ostomy Care Author Type: Registered Nurse Filed: 04/26/19 1053 Date of Service: 04/26/191050 Status: Signed Airplane And Engine Inspector: Shama Rawls RN (Registered Nurse) [facility] Service: Wound Care Hospital Day: LOS: 13 [...] any additional questions. Shama Rawls RN, CMSRN, [facility] Inpatient Wound Care 04/26/2019 10:53 AM [phone] onver jessica Transaction, Provider Unknown - 04/26/2019 10:07 AM PDT Case Management by Macario Florez RN at 04/26/19 1007 Author: Macario Florez RN Service: (none) Author Type: Registered Nurse Filed: 04/26/19 1116 Date of Service: 04/26/19 1007 Status: Addendum Airplane And Engine Inspector: Macario Folrez RN (Registered Nurse) Related Notes: Original Note by Macario Florez RN (Registered Nurse) filed at 04/26/19 11 15 10:08 AM Received call from [facility]. They are picking up Alondra at 1:00 PM. 11:15 AM Disposition: [facility] Transportation: Facility provided All orders, signed AVS, and prescriptions have been faxed to [facility] All DC paperwork completed Patient and family in agreement with discharge plan Medicare important message (Given or N/A): Mushtaq Florez onver jessica Transaction, Provider Unknown - 04/25/2019 3:50 PM PDT Case Management by Macario Florez RN at 04/25/19 1550 Author: Macario Florez RN Service: (none) Author Type: Registered Nurse Filed: 04/25/19 1559 Date of Service: 04/25/19 1550 Status: Signed Airplane And Engine Inspector: Macario Florez RN (Registered Nurse) 3:50 PM Met with patient to discuss discharge. She is appealing her discharge, she does not feel i t is safe at this point. According to her Dr. Carranza told her she could leave on Tuesday, but Dr. Reyes is ready to discharge her to [facility]. Alondra was also concerned that her follow- up appts were not made for her and she would like a new PCP. A director case management had explained t o her that the SNF facilities will make her appts because they need to coordinate transporta tion for her and all of the other patients that are staying at the SNF. She was not satisfi ed with that, so I made calls and set her up with another PCP in her primary office. I also called [facility] at her request, they do not take appts, but told me the facil carolyne can call ahead and bring her in. I let them know she needs a hand router operator and a neph rologist. Alondra seemed satisfied with this. Plan will be to discharge tomorrow to [facility]. onver jessica Transaction, Provider Unknown - 04/25/2019 3:24 PM PDT Progress Notes by Pop Reyes MD at 04/25/19 1524 Author: Pop Reyes MD Service: Hospitalist Author Type: Physician Filed: 04/25/19 1550 Date of Service: 04/25/19 1524 Status: Signed Airplane And Engine Inspector: Pop Reyes MD (Physician) [facility] Service: Hospitalist Progress Note Pt: Alondra Caballero AGE/SEX: 49 y.o. female ROOM: Critical access hospital/7113-1 : 1970 PCP: DANIEL BHAKTA ADMIT DATE: [...] of left BKA who was transferred from [facility] with worsening swelling of the right leg, [...] Oral BID cefTRIAXone 2 g Intravenous Q24H dcxyqvmvluemagf-yjfxcyvdfyxmex-xqcqczki 10 mL Swish & Spit 4x daily [...] Date of Service: 04/25/19 1520 Status: Signed Airplane And Engine Inspector: Kym Wilson PT (Physical Therapist) PHYSICAL THERAPY TREATMENT NOTE PT Received On: 04/25/19 Reason for Treatment: Amputation (acute R AKA; chronic L BKA; septic shock) Requires PT Follow Up: Yes PT Eval/Reassessment Date: 04/25/19 Recommendations: Acute OT, SNF Barriers to Discharge: Physical Deficits Impacting Functional George, Self-care Defic its Impacting Functional George, Lack of Family Support/Training, Home Design (see [...] to maryellen. Therapist removed screw from limb supervisor mapping so pt could wear for compr ession [...] Date of Service: 04/25/19 1137 Status: Signed Airplane And Engine Inspector: Katie Long RN (Registered Nurse) Verified with rgeina CIFUENTES to remain in place for d/c. Katie Long RN onver jessica Transaction, Provider Unknown - 04/25/2019 9:52 AM PDT Progress Notes by Jorge Alfred at 04/25/19 0952 Author: Jorge Alfred Service: (none) Author Type: Hot Tar Roofer Filed: 04/25/19 0959 Date of Service: 04/25/1951 Status: Addendum Airplane And Engine Inspector: Jorge Alfred (Hot Tar Roofer) Related Notes: Original Note by Jorge Alfred (Hot Tar Roofer) filed at 04/25/19 0958 Per LOS. Met [...] Date of Service: 04/25/19 0941 Status: Addendum Airplane And Engine Inspector: Yuli Guerra RN (Registered Nurse) Related Notes: Original Note by Yuli Guerra RN (Registered Nurse) filed at 04/25/[address] Reyes: pt should be able to discharge to [facility] today after stre ss test if negative. [...] Notes by Pop Reyes MD at 04/24/19 1865 Author: Pop Reyes MD Service: Hospitalist Author Type: Physician Filed: 04/24/19 7548 Date of Service: 04/24/19 5193 Status: Signed Airplane And Engine Inspector: Pop Reyes MD (Physician) [facility] Service: Hospitalist Progress Note Pt: Alondra Caballero AGE/SEX: 49 y.o. female ROOM: [address] [place] [address] : 1970 PCP: DANIEL BHAKTA ADMIT DATE: [...] of left BKA who was transferred from [facility] with worsening swelling of the right leg, [...] Oral BID cefTRIAXone 2 g Intravenous Q24H tpmufcocpwyuxlc-jszdtzgazbmmkr-gyrcyqvl 10 mL Swish & Spit 4x daily [...] Units Date/Time Fecal occult blood (in house) [[id number]] Collected: 04/22/19 1535 Specimen: Stool from Stool [...] Morbid obesity (HCC) CHF (congestive heart failure) ([facility]) CKD (chronic kidney disease), stage IV Metabolic [...] Date of Service: 08/06/19 0808 Status: Addendum Airplane And Engine Inspector: Yuli Guerra RN (Registered Nurse) Related Notes: Original Note by Yuli Guerra RN (Registered Nurse) filed at 04/24/19 0809 0750: spoke with pt about where she would like to go when ready for discharge- she said she will go to [facility]. 0805: messaged Iftikhar at [facility] to give her an update. onver jessica Transaction, Provider Unknown - 04/24/2019 4:27 AM PDT Nurse Progress Note by Sandra Meek RN at 04/24/19426 Author: Sandra Meek RN Service: (none) Author Type: Registered Nurse Filed: 04/24/19 0433 Date of Service: 04/24/19426 Status: Addendum Airplane And Engine Inspector: Sandra Meek RN (Registered Nurse) Related Notes: [...] Service: Hospitalist Author Type: Physician Filed: 04/23/19 2156 Date of Service: 04/23/191427 Status: Signed Airplane And Engine Inspector: Mark Carranza MD (Physician) Hospitalist Progress Note Alondra Turciosorkle 49 y.o. [id number] 7113/7113-1 female [facility] Day: LOS: 10 days Patient Summary: 49-year-old female with past medical history of methamphetamine abus e stopped 8 years ago, diabetes mellitus type 2 insulin-dependent, chronic kidney disease st age IV, coronary disease status post cardiac stent to left circumflex, chronic total occlude d proximal LAD, CHF with ejection fraction 35 %, history of left BKA who was transferred fro [facility] with worsening swelling of the right [...] Oral BID cefTRIAXone 2 g Intravenous Q24H tjzlvicdnelhnes-sybjhfqhoociyf-vwkfouim 10 mL Swish & Spit 4x daily [...] Procedure Component Value Units Date/Time POCT glucose [[id number]] Collected: 04/23/19 1221 Updated: 04/23/19 1226 GLUCOSE,POC SCREEN 66 mg/dL CBC w/auto diff (reflex to manual) [[id number]] (Abnormal) Collected: 04/23/19 0506 Specimen: Blood Updated: [...] Estimate INCREASED MORPHOLOGY 1+ Basic metabolic panel [[id number]] (Abnormal) Collected: 04/23/19 0506 Specimen: Blood Updated: 04/23/19630 SODIUM 137 mmol/L POTASSIUM 4.2 mmol/L CHLORIDE 106 mmol/L CO2 25 mmol/L ANION GAP AGAP 10 mmol/L GLUCOSE 55 (L) mg/dL BUN 45 (H) mg/dL CREATININE 1.24 (H) mg/dL BUN/CREAT 36 CALCIUM 7.7 (L) mg/dL EGFR 46 (L) mL/min/1.73m2 CPK [[id number]] (Abnormal) Collected: 04/23/19 050 Specimen: Blood Updated: 04/23/19630 CPK 3,534 (H) U/L POCT glucose [[id number]] Collected: 04/23/19523 Updated: 04/23/19 0559 GLUCOSE,POC SCREEN 70 mg/dL POCT glucose [[id number]] (Abnormal) Collected: 04/22/192107 Updated: 04/23/19 0559 GLUCOSE,POC SCREEN 131 (H) mg/dL POCT glucose [[id number]] (Abnormal) Collected: 04/22/19 1915 Updated: 04/23/19 0558 GLUCOSE,POC SCREEN 62 (L) mg/dL POCT glucose [[id number]] (Abnormal) Collected: 04/22/19 1638 Updated: 04/22/19 1643 GLUCOSE,POC SCREEN 115 (H) mg/dL POCT glucose [[id number]] Collected: 04/22/19 1312 Updated: 04/22/19 1643 GLUCOSE,POC SCREEN 75 mg/dL POCT glucose [[id number]] Collected: 04/22/19 1128 Updated: 04/22/19 1643 GLUCOSE,POC SCREEN 95 mg/dL Fecal occult blood (in house) [[id number]] Collected: 04/22/19 1535 Specimen: Stool from Stool Updated: 04/22/19 1549 Fecal Occult Blood NEGATIVE POCT glucose [[id number]] Collected: 04/22/19826 Updated: 04/22/19910 GLUCOSE,POC SCREEN 90 mg/dL CBC w/auto diff (reflex to manual) [[id number]] (Abnormal) Collected: 04/22/19553 Specimen: Blood Updated: 04/22/19722 [...] Monocytes Absolute 0.35 K/uL MORPHOLOGY 1+ CPK [[id number]] (Abnormal) Collected: 04/22/19553 Specimen: Blood Updated: 04/22/19639 CPK 4,252 (H) U/L Basic metabolic panel [[id number]] (Abnormal) Collected: 04/22/19553 Specimen: Blood Updated: 04/22/19638 SODIUM 135 mmol/L POTASSIUM 4.5 mmol/L CHLORIDE 103 mmol/L CO2 25 mmol/L ANION GAP AGAP 12 mmol/L GLUCOSE 105 (H) mg/dL BUN 51 (H) mg/dL CREATININE 1.38 (H) mg/dL BUN/CREAT 37 CALCIUM 7.5 (L) mg/dL EGFR 41 (L) mL/min/1.73m2 Prepare RBC (type and crossmatch) (Blood Bank) [[id number]] Collected: 04/21/19 1040 Specimen: Blood Updated: 04/22/19628 ARM BAND NUMBER [id number] ABO/RH(D) O POSITIVE ANTIBODY SCREEN NEGATIVE UNIT NUMBER [id number] BLOOD COMPONENT TYPE LEUKODEPLETED PC UNIT DIVISION 00 STATUS OF UNIT ISSUED,FINAL TRANSFUSION STATUS OK TO TRANSFUSE CROSSMATCH RESULT -- COMPATIBLE [place] [facility] [place] [address];[place] [address] POCT glucose [[id number]] (Abnormal) Collected: 04/22/1940 Updated: 04/22/19 0621 GLUCOSE,POC SCREEN 107 (H) mg/dL Troponin I [[id number]] (Abnormal) Collected: 04/22/19 0030 Specimen: Blood Updated: 04/22/19 0059 TROPONIN I 0.088 (H) ng/mL POCT glucose [[id number]] (Abnormal) Collected: 04/21/19 2056 Updated: 04/21/19 2116 GLUCOSE,POC SCREEN 149 (H) mg/dL POCT glucose [[id number]] (Abnormal) Collected: 04/21/19 1618 Updated: 04/21/19 211 GLUCOSE,POC SCREEN 143 (H) mg/dL POCT glucose [[id number]] (Abnormal) Collected: 04/21/19 1119 Updated: 04/21/19 211 GLUCOSE,POC SCREEN 157 (H) mg/dL POCT glucose [[id number]] (Abnormal) Collected: 04/21/19 0822 Updated: 04/21/192115 GLUCOSE,POC SCREEN 112 (H) mg/dL Troponin I [[id number]] (Abnormal) Collected: 04/21/19 1830 Specimen: Blood Updated: 04/21/19 1902 TROPONIN I 0.086 (H) ng/mL Vit D Dihydroxy 1,25 [[id number]] Collected: 04/19/19 1626 Updated: 04/21/19 1508 VIT D DIHYDROXY 1,25 26.2 pg/mL Troponin I [[id number]] (Abnormal) Collected: 04/21/19 1242 Specimen: Blood Updated: 04/21/19 1330 TROPONIN I 0.079 (H) ng/mL Basic metabolic panel [[id number]] (Abnormal) Collected: 04/21/1940 Specimen: Blood Updated: 04/21/19 0735 SODIUM 135 mmol/L POTASSIUM 4.6 mmol/L CHLORIDE 100 mmol/L CO2 24 mmol/L ANION GAP AGAP 16 mmol/L GLUCOSE 110 (H) mg/dL BUN 55 (H) mg/dL CREATININE 1.7 (H) mg/dL BUN/CREAT 32 CALCIUM 7.9 (L) mg/dL EGFR 32 (L) mL/min/1.73m2 Magnesium [[id number]] (Abnormal) Collected: 08/03/19 0540 Specimen: Blood Updated: 04/21/19734 MAGNESIUM 1.6 (L) mg/dL Phosphorus [[id number]] Collected: 04/21/19539 Specimen: Blood Updated: 04/21/19734 PHOSPHORUS 4.5 mg/dL CBC w/auto diff (reflex to manual) [[id number]] (Abnormal) Collected: 04/21/19539 Specimen: Blood Updated: 04/21/19723 [...] Absolute 0.12 K/uL MORPHOLOGY 1+ Troponin I [[id number]] (Abnormal) Collected: 04/21/19539 Specimen: Blood Updated: 04/21/19719 TROPONIN I 0.091 (H) ng/mL CK MB [[id number]] (Abnormal) Collected: 04/21/19539 Updated: 04/21/19719 MMB 6.3 (H) ng/mL CK-MB Index 0.2 CPK [[id number]] (Abnormal) Collected: 04/21/19539 Specimen: Blood Updated: 04/21/19719 CPK 3,048 (H) U/L Blood Culture Set 1 [[id number]] Collected: 04/15/191257 Specimen: Blood from Blood Line Draw Updated: 04/21/19602 Specimen Description BLOOD, LINE DRAW SPECIAL REQUESTS ART LINE HAND CULTURE NO GROWTH 6 DAYS Blood Culture Set 2 [[id number]] Collected: 04/15/19 1255 Specimen: Blood from Blood Line Draw Updated: 08/03/19 0603 Specimen Description BLOOD, LINE DRAW SPECIAL REQUESTS art line CULTURE NO GROWTH 6 DAYS RPR Titer [[id number]] Collected: 04/17/19 1952 Specimen: Blood Updated: 04/21/19 0509 RPR Titer Non Reactive Troponin I [[id number]] (Abnormal) Collected: 04/21/19 0015 Specimen: Blood Updated: 04/21/19 0045 TROPONIN I 0.074 (H) ng/mL POCT glucose [[id number]] (Abnormal) Collected: 04/20/19 215 Updated: 04/20/19 215 GLUCOSE,POC SCREEN 179 (H) mg/dL POCT glucose [[id number]] (Abnormal) Collected: 04/20/19 1615 Updated: 04/20/19 1629 GLUCOSE,POC SCREEN 176 (H) mg/dL Sodium [[id number]] (Abnormal) Collected: 04/20/19 1451 Specimen: Blood Updated: [...] Morbid obesity (HCC) CHF (congestive heart failure) ([facility]) CKD (chronic kidney disease), stage IV Metabolic acidosis ICD (implantable cardioverter-defibrillator), single, 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, with long-term current use of insulin (HCC) Ischemic cardiomyopathy Sepsis (HCC) Gangrene of extremity ([facility]) Hyperkalemia Lactic acidosis Hyponatremia Group G streptococcal infection Skin ulcer of finger, limited to breakdown of skin ([facility]) Hyperkalemia Chest pain Non-traumatic rhabdomyolysis ASSESSMENT & [...] Date of Service: 04/23/19 1410 Status: Signed Airplane And Engine Inspector: Gisela Zaragoza PT (Physical Therapist) PHYSICAL THERAPY [...] 9:26 AM PDT Case Management by Yuli Guerra RN at 04/23/19925 Author: Yuli Guerra RN Service: (none) Author Type: Registered Nurse Filed: 04/23/19 9557 Date of Service: 04/23/19925 Status: Addendum Airplane And Engine Inspector: Yuli Guerra RN (Registered Nurse) Related Notes: Original Note by Yuli Guerra RN (Registered Nurse) filed at 04/23/19 8801 0721: called Britney at [facility] to follow up on referral over the weekend. Pt has Indra doll and [place] Medicaid as secondary- Britney verified that [place] Medicaid only covers in [place]. Britney said they are unable to accept [...] of pocket. I explai eliazar that in [place] that she will have the 100 days covered. She stated understanding and wa nted to let me know later. Rounded with Dr Carranza: pt not medically ready for discharge. Had chest pain over the weeke nd- watching trends on labs. Pt requesting new PCP. 1025: called Iftikhar at [facility] to update her on plan of care- [...] transition to a new PCP in the [facility] system later. onver jessica Transaction, Provider Unknown - 04/23/2019 5:45 AM PDT Nurse Progress Note by Abiola Jane RN at 04/23/19544 Author: Abiola Jane RN Service: (none) Author Type: Registered Nurse Filed: 04/23/1947 Date of Service: 04/23/19544 Status: Signed Airplane And Engine Inspector: Abiola Jane RN (Registered Nurse) Pt NPO at midnight with exception of water for stress test. End of shift review complete.Abiola Jane Mark England MD - 04/22/2019 3:34 PM PDTFormatting of this note might be different from the or iginal. Progress Notes by Mark Carranza MD at 04/22/19 8367 Author: Mark Carranza MD Service: Hospitalist Author Type: Physician Filed: 04/22/19 1544 Date of Service: 04/22/194 Status: Signed Airplane And Engine Inspector: Mark Carranza MD (Physician) Hospitalist Progress Note Alondra Caballero 49 y.o. [id number] 7113/7113-1 female [employer] Karen [facility] Hospital Day: LOS: 9 days Patient Summary: 49-year-old female with past medical history of methamphetamine abus e stopped 8 years ago, diabetes mellitus type 2 insulin-dependent, chronic kidney disease st age IV, coronary disease status post cardiac stent to left circumflex, chronic total occlude d proximal LAD, CHF with ejection fraction 35 %, history of left BKA who was transferred fro [facility] with worsening swelling of the right [...] Oral BID cefTRIAXone 2 g Intravenous Q24H qyiblllcjzrnuiq-faaqqcfhwygbin-vxqoherm 10 mL Swish & Spit 4x daily [...] Procedure Component Value Units Date/Time POCT glucose [[id number]] Collected: 04/22/19826 Updated: 04/22/19 09 GLUCOSE,POC SCREEN 90 mg/dL CBC w/auto diff (reflex to manual) [[id number]] (Abnormal) Collected: 04/22/19 0554 Specimen: Blood Updated: [...] Monocytes Absolute 0.35 K/uL MORPHOLOGY 1+ CPK [[id number]] (Abnormal) Collected: 04/22/19553 Specimen: Blood Updated: 04/22/19639 CPK 4,252 (H) U/L Basic metabolic panel [[id number]] (Abnormal) Collected: 04/22/1954 Specimen: Blood Updated: 04/22/19638 SODIUM 135 mmol/L POTASSIUM 4.5 mmol/L CHLORIDE 103 mmol/L CO2 25 mmol/L ANION GAP AGAP 12 mmol/L GLUCOSE 105 (H) mg/dL BUN 51 (H) mg/dL CREATININE 1.38 (H) mg/dL BUN/CREAT 37 CALCIUM 7.5 (L) mg/dL EGFR 41 (L) mL/min/1.73m2 Prepare RBC (type and crossmatch) (Blood Bank) [[id number]] Collected: 04/21/19 1040 Specimen: Blood Updated: 04/22/19628 ARM BAND NUMBER [id number] ABO/RH(D) O POSITIVE ANTIBODY SCREEN NEGATIVE UNIT NUMBER [id number] BLOOD COMPONENT TYPE LEUKODEPLETED PC UNIT DIVISION 00 STATUS OF UNIT ISSUED,FINAL TRANSFUSION STATUS OK TO TRANSFUSE CROSSMATCH RESULT -- COMPATIBLE [place] [facility] [place] [address];[place] [address] POCT glucose [[id number]] (Abnormal) Collected: 04/22/19539 Updated: 04/22/19620 GLUCOSE,POC SCREEN 107 (H) mg/dL Troponin I [[id number]] (Abnormal) Collected: 04/22/19 0030 Specimen: Blood Updated: 04/22/19 0059 TROPONIN I 0.088 (H) ng/mL POCT glucose [[id number]] (Abnormal) Collected: 04/21/192055 Updated: 04/21/192115 GLUCOSE,POC SCREEN 149 (H) mg/dL POCT glucose [[id number]] (Abnormal) Collected: 04/21/19 1618 Updated: 04/21/192115 GLUCOSE,POC SCREEN 143 (H) mg/dL POCT glucose [[id number]] (Abnormal) Collected: 04/21/19 1119 Updated: 04/21/192115 GLUCOSE,POC SCREEN 157 (H) mg/dL POCT glucose [[id number]] (Abnormal) Collected: 04/21/19 0822 Updated: 04/21/19 2116 GLUCOSE,POC SCREEN 112 (H) mg/dL Troponin I [[id number]] (Abnormal) Collected: 04/21/19 1830 Specimen: Blood Updated: 04/21/19 1902 TROPONIN I 0.086 (H) ng/mL Vit D Dihydroxy 1,25 [[id number]] Collected: 04/19/19 1626 Updated: 04/21/19 1508 VIT D DIHYDROXY 1,25 26.2 pg/mL Troponin I [[id number]] (Abnormal) Collected: 04/21/19 1242 Specimen: Blood Updated: 04/21/19 1330 TROPONIN I 0.079 (H) ng/mL Basic metabolic panel [[id number]] (Abnormal) Collected: 04/21/19539 Specimen: Blood Updated: 04/21/19734 SODIUM 135 mmol/L POTASSIUM 4.6 mmol/L CHLORIDE 100 mmol/L CO2 24 mmol/L ANION GAP AGAP 16 mmol/L GLUCOSE 110 (H) mg/dL BUN 55 (H) mg/dL CREATININE 1.7 (H) mg/dL BUN/CREAT 32 CALCIUM 7.9 (L) mg/dL EGFR 32 (L) mL/min/1.73m2 Magnesium [[id number]] (Abnormal) Collected: 04/21/19539 Specimen: Blood Updated: 04/21/19734 MAGNESIUM 1.6 (L) mg/dL Phosphorus [[id number]] Collected: 04/21/19539 Specimen: Blood Updated: 04/21/19734 PHOSPHORUS 4.5 mg/dL CBC w/auto diff (reflex to manual) [[id number]] (Abnormal) Collected: 04/21/19539 Specimen: Blood Updated: 04/21/19723 [...] Absolute 0.12 K/uL MORPHOLOGY 1+ Troponin I [[id number]] (Abnormal) Collected: 04/21/19539 Specimen: Blood Updated: 04/21/19719 TROPONIN I 0.091 (H) ng/mL CK MB [[id number]] (Abnormal) Collected: 04/21/19539 Updated: 04/21/19719 MMB 6.3 (H) ng/mL CK-MB Index 0.2 CPK [[id number]] (Abnormal) Collected: 04/21/19539 Specimen: Blood Updated: 04/21/19719 CPK 3,048 (H) U/L Blood Culture Set 1 [[id number]] Collected: 04/15/19 1258 Specimen: Blood from Blood Line Draw Updated: 04/21/19602 Specimen Description BLOOD, LINE DRAW SPECIAL REQUESTS ART LINE HAND CULTURE NO GROWTH 6 DAYS Blood Culture Set 2 [[id number]] Collected: 04/15/19 125 Specimen: Blood from Blood Line Draw Updated: 04/21/19602 Specimen Description BLOOD, LINE DRAW SPECIAL REQUESTS art line CULTURE NO GROWTH 6 DAYS RPR Titer [[id number]] Collected: 04/17/19 1952 Specimen: Blood Updated: 04/21/19 0509 RPR Titer Non Reactive Troponin I [[id number]] (Abnormal) Collected: 04/21/19 0015 Specimen: Blood Updated: 04/21/19 0045 TROPONIN I 0.074 (H) ng/mL POCT glucose [[id number]] (Abnormal) Collected: 04/20/192152 Updated: 04/20/19 215 GLUCOSE,POC SCREEN 179 (H) mg/dL POCT glucose [[id number]] (Abnormal) Collected: 04/20/19 1615 Updated: 04/20/19 1629 GLUCOSE,POC SCREEN 176 (H) mg/dL Sodium [[id number]] (Abnormal) Collected: 04/20/19 1451 Specimen: Blood Updated: 04/20/19 1511 SODIUM 130 (L) mmol/L Sputum culture [[id number]] Collected: 04/18/19 1448 Specimen: Sputum from Sputum Updated: 04/20/19 1354 Specimen Description SPUTUM GRAM STAIN GREATER THAN 10 WBCS/LPF GRAM STAIN LESS THAN 10 SEC/LPF GRAM STAIN NO ORGANISMS SEEN CULTURE 1+ NORMAL UPPER RESPIRATORY RADHA Urine culture [[id number]] Collected: 04/19/19 1051 Specimen: Urine from Urine, Clean Catch Updated: 04/20/19 1225 Specimen Description URINE,CLEAN CATCH CULTURE NO GROWTH POCT glucose [[id number]] (Abnormal) Collected: 04/20/19 1210 Updated: 04/20/19 1222 GLUCOSE,POC SCREEN 134 (H) mg/dL Sodium [[id number]] (Abnormal) Collected: 04/20/19 1101 Specimen: Blood Updated: 04/20/19 1121 SODIUM 133 (L) mmol/L POCT glucose [[id number]] (Abnormal) Collected: 04/20/19 0559 Updated: 04/20/19 0833 GLUCOSE,POC SCREEN 131 (H) mg/dL CBC w/auto diff (reflex to manual) [[id number]] (Abnormal) Collected: 04/20/19 0355 Specimen: Blood Updated: [...] ADEQUATE MORPHOLOGY PLATELET ANISOCYTOSIS Basic metabolic panel [[id number]] (Abnormal) Collected: 04/20/19 0355 Specimen: Blood Updated: 04/20/19 0502 SODIUM 131 (L) mmol/L POTASSIUM 5.2 (H) mmol/L CHLORIDE 99 mmol/L CO2 26 mmol/L ANION GAP AGAP 11 mmol/L GLUCOSE 142 (H) mg/dL BUN 52 (H) mg/dL CREATININE 1.7 (H) mg/dL BUN/CREAT 31 CALCIUM 7.5 (L) mg/dL EGFR 32 (L) mL/min/1.73m2 POCT glucose [[id number]] (Abnormal) Collected: 04/19/192109 Updated: 04/19/192115 GLUCOSE,POC SCREEN 174 (H) mg/dL Vitamin D 25 hydroxy [[id number]] Collected: 04/17/191951 Specimen: Blood Updated: 04/19/19 1740 VITAMIN D,25 HYDROXY 50 ng/mL TSH [[id number]] (Abnormal) Collected: 04/17/191951 Specimen: Blood Updated: 04/19/19 1706 TSH 9.360 (H) uIU/mL POCT glucose [[id number]] (Abnormal) Collected: 04/19/19 163 Updated: 04/19/19 1637 [...] Morbid obesity (HCC) CHF (congestive heart failure) ([facility]) CKD (chronic kidney disease), stage IV Metabolic [...] Date of Service: 04/22/19 06 Status: Addendum Airplane And Engine Inspector: Abiola Jane RN (Registered Nurse) Related Notes: [...] Notes by Mark Carranza MD at 04/21/19 0711 Author: Mark Carranza MD Service: Hospitalist Author Type: Physician Filed: 04/21/19 6070 Date of Service: 04/21/19 2333 Status: Addendum Airplane And Engine Inspector: Mark Carranza MD (Physician) Related Notes: Original Note by Mark Carranza MD (Physician) filed at 04/21/19 9708 Hospitalist Progress Note Alondra Caballero 49 y.o. [phone] [id number] female [facility] Day: LOS: 8 days Patient Summary: 49-year-old female with past medical history of methamphetamine abus e stopped 8 years ago, diabetes mellitus type 2 insulin-dependent, chronic kidney disease st age IV, coronary disease status post cardiac stent to left circumflex, chronic total occlude d proximal LAD, CHF with ejection fraction 35 %, history of left BKA who was transferred fro [facility] with worsening swelling of the right [...] Oral BID cefTRIAXone 2 g Intravenous Q24H bowxxjtzdfnkktq-jcyjkazzjiduwc-hqojdkji 10 mL Swish & Spit 4x daily [...] Procedure Component Value Units Date/Time Troponin I [[id number]] (Abnormal) Collected: 04/21/19 1242 Specimen: Blood Updated: 04/21/19 1330 TROPONIN I 0.079 (H) ng/mL Prepare RBC (type and crossmatch) (Blood Bank) [[id number]] Collected: 04/21/19 1040 Specimen: Blood Updated: 04/21/19 1320 ARM BAND NUMBER [id number] ABO/RH(D) O POSITIVE ANTIBODY SCREEN NEGATIVE UNIT NUMBER [id number] BLOOD COMPONENT TYPE LEUKODEPLETED PC UNIT DIVISION 00 STATUS OF UNIT ISSUED TRANSFUSION STATUS OK TO TRANSFUSE CROSSMATCH RESULT -- COMPATIBLE [place] [facility] [place] [place] [address];[place] [address] Basic metabolic panel [[id number]] (Abnormal) Collected: 04/21/19539 Specimen: Blood Updated: 04/21/19734 SODIUM 135 mmol/L POTASSIUM 4.6 mmol/L CHLORIDE 100 mmol/L CO2 24 mmol/L ANION GAP AGAP 16 mmol/L GLUCOSE 110 (H) mg/dL BUN 55 (H) mg/dL CREATININE 1.7 (H) mg/dL BUN/CREAT 32 CALCIUM 7.9 (L) mg/dL EGFR 32 (L) mL/min/1.73m2 Magnesium [[id number]] (Abnormal) Collected: 04/21/19539 Specimen: Blood Updated: 04/21/19734 MAGNESIUM 1.6 (L) mg/dL Phosphorus [[id number]] Collected: 04/21/19539 Specimen: Blood Updated: 04/21/19734 PHOSPHORUS 4.5 mg/dL CBC w/auto diff (reflex to manual) [[id number]] (Abnormal) Collected: 04/21/19539 Specimen: Blood Updated: 04/21/19723 [...] Absolute 0.12 K/uL MORPHOLOGY 1+ Troponin I [[id number]] (Abnormal) Collected: 04/21/19539 Specimen: Blood Updated: 04/21/19719 TROPONIN I 0.091 (H) ng/mL CK MB [[id number]] (Abnormal) Collected: 04/21/19539 Updated: 04/21/19719 MMB 6.3 (H) ng/mL CK-MB Index 0.2 CPK [[id number]] (Abnormal) Collected: 04/21/19 0540 Specimen: Blood Updated: 04/21/19 0720 CPK 3,048 (H) U/L Blood Culture Set 1 [[id number]] Collected: 04/15/19 1258 Specimen: Blood from Blood Line Draw Updated: 04/21/19 0603 Specimen Description BLOOD, LINE DRAW SPECIAL REQUESTS ART LINE HAND CULTURE NO GROWTH 6 DAYS Blood Culture Set 2 [[id number]] Collected: 04/15/19 1255 Specimen: Blood from Blood Line Draw Updated: 04/21/19 06 Specimen Description BLOOD, LINE DRAW SPECIAL REQUESTS art line CULTURE NO GROWTH 6 DAYS RPR Titer [[id number]] Collected: 04/17/19 1952 Specimen: Blood Updated: 04/21/19 0509 RPR Titer Non Reactive Troponin I [[id number]] (Abnormal) Collected: 04/21/19 0015 Specimen: Blood Updated: 04/21/19 0045 TROPONIN I 0.074 (H) ng/mL POCT glucose [[id number]] (Abnormal) Collected: 04/20/19 2153 Updated: 04/20/19 2156 GLUCOSE,POC SCREEN 179 (H) mg/dL POCT glucose [[id number]] (Abnormal) Collected: 04/20/19 1615 Updated: 04/20/19 1629 GLUCOSE,POC SCREEN 176 (H) mg/dL Sodium [[id number]] (Abnormal) Collected: 04/20/19 1451 Specimen: Blood Updated: 04/20/19 1511 SODIUM 130 (L) mmol/L Sputum culture [[id number]] Collected: 04/18/19 1448 Specimen: Sputum from Sputum Updated: 04/20/19 1354 Specimen Description SPUTUM GRAM STAIN GREATER THAN 10 WBCS/LPF GRAM STAIN LESS THAN 10 SEC/LPF GRAM STAIN NO ORGANISMS SEEN CULTURE 1+ NORMAL UPPER RESPIRATORY RADHA Urine culture [[id number]] Collected: 04/19/19 1051 Specimen: Urine from Urine, Clean Catch Updated: 04/20/19 1225 Specimen Description URINE,CLEAN CATCH CULTURE NO GROWTH POCT glucose [[id number]] (Abnormal) Collected: 04/20/19 1210 Updated: 04/20/19 1222 GLUCOSE,POC SCREEN 134 (H) mg/dL Sodium [[id number]] (Abnormal) Collected: 04/20/19 1101 Specimen: Blood Updated: 04/20/19 1121 SODIUM 133 (L) mmol/L POCT glucose [[id number]] (Abnormal) Collected: 04/20/19 0559 Updated: 04/20/19 0833 GLUCOSE,POC SCREEN 131 (H) mg/dL CBC w/auto diff (reflex to manual) [[id number]] (Abnormal) Collected: 04/20/19 0355 Specimen: Blood Updated: [...] ADEQUATE MORPHOLOGY PLATELET ANISOCYTOSIS Basic metabolic panel [[id number]] (Abnormal) Collected: 04/20/19354 Specimen: Blood Updated: 04/20/19 0502 SODIUM 131 (L) mmol/L POTASSIUM 5.2 (H) mmol/L CHLORIDE 99 mmol/L CO2 26 mmol/L ANION GAP AGAP 11 mmol/L GLUCOSE 142 (H) mg/dL BUN 52 (H) mg/dL CREATININE 1.7 (H) mg/dL BUN/CREAT 31 CALCIUM 7.5 (L) mg/dL EGFR 32 (L) mL/min/1.73m2 POCT glucose [[id number]] (Abnormal) Collected: 04/19/192109 Updated: 04/19/192115 GLUCOSE,POC SCREEN 174 (H) mg/dL Vitamin D 25 hydroxy [[id number]] Collected: 04/17/191951 Specimen: Blood Updated: 04/19/19 174 VITAMIN D,25 HYDROXY 50 ng/mL TSH [[id number]] (Abnormal) Collected: 04/17/19 1952 Specimen: Blood Updated: 04/19/19 1706 TSH 9.360 (H) uIU/mL Vit D Dihydroxy 1,25 [[id number]] Collected: 04/19/19 1626 Updated: 04/19/19 1641 POCT glucose [[id number]] (Abnormal) Collected: 04/19/19 1630 Updated: 04/19/19 1637 GLUCOSE,POC SCREEN 116 (H) mg/dL Sodium [[id number]] (Abnormal) Collected: 04/19/19 1349 Specimen: Blood Updated: 04/19/19 1421 SODIUM 132 (L) mmol/L Urinalysis Microscopic Only [[id number]] (Abnormal) Collected: 04/19/19 1042 Specimen: Urine from Urine, Catheter Updated: 04/19/19 1324 WBC 6-10 /hpf RBC 3-5 /hpf EPITHELIAL 6-10 /lpf BACTERIA 1+ (A) Mucus, UA 1+ HCV RNA quant by PCR [[id number]] Collected: 04/16/19 1458 Specimen: Blood Updated: 04/19/19 1309 HCV RNA VIRAL LOAD HCV Not Detected IU/mL TEST INFORMATION (See Below) POCT glucose [[id number]] (Abnormal) Collected: 04/19/19 1154 Updated: 04/19/19 1158 GLUCOSE,POC SCREEN 150 (H) mg/dL Hepatitis B Virus DNA Quant PCR [[id number]] Collected: 04/16/19 1458 Updated: 04/19/19 1110 HBV DNA VIRAL LOAD UPTCAL LOG10 IU/ML HB DNA VIRAL LOAD IU/mL HBV DNA not detected IU/mL COMMENT (See Below) Sodium [[id number]] (Abnormal) Collected: 04/19/19 0932 Specimen: Blood Updated: 04/19/19 1004 SODIUM 131 (L) mmol/L POCT glucose [[id number]] (Abnormal) Collected: 04/19/19 0525 Updated: 04/19/19 0837 GLUCOSE,POC SCREEN 112 (H) mg/dL POCT glucose [[id number]] (Abnormal) Collected: 04/19/19 0817 Updated: 04/19/19 0834 GLUCOSE,POC SCREEN 138 (H) mg/dL Blood Culture Set 1 [[id number]] Collected: 04/13/191921 Specimen: Blood from Blood Line Draw Updated: 04/19/19609 Specimen Description BLOOD, LINE DRAW SPECIAL REQUESTS CENTRAL CULTURE NO GROWTH 6 DAYS CBC w/auto diff (reflex to manual) [[id number]] (Abnormal) Collected: 04/19/19144 Specimen: Blood Updated: 04/19/19 [...] PLT MORPHOLOGY APPEAR NORMAL Basic metabolic panel [[id number]] (Abnormal) Collected: 04/19/19144 Specimen: Blood Updated: 04/19/19432 SODIUM 132 (L) mmol/L POTASSIUM 5.2 (H) mmol/L CHLORIDE 99 mmol/L CO2 25 mmol/L ANION GAP AGAP 13 mmol/L GLUCOSE 74 mg/dL BUN 57 (H) mg/dL CREATININE 1.8 (H) mg/dL BUN/CREAT 32 CALCIUM 7.8 (L) mg/dL EGFR 30 (L) mL/min/1.73m2 POCT glucose [[id number]] (Abnormal) Collected: 04/18/192057 Updated: 04/18/192101 GLUCOSE,POC SCREEN 156 (H) mg/dL POCT glucose [[id number]] Collected: 04/18/19 1610 Updated: 04/18/192101 GLUCOSE,POC SCREEN 83 mg/dL POCT glucose [[id number]] (Abnormal) Collected: 04/18/19 1200 Updated: 04/18/192100 GLUCOSE,POC SCREEN 102 (H) mg/dL Sodium [[id number]] (Abnormal) Collected: 04/18/191955 Specimen: Blood Updated: 04/18/192051 SODIUM 130 (L) mmol/L Basic metabolic panel [[id number]] (Abnormal) Collected: 04/18/191717 Specimen: Blood Updated: 04/18/191955 SODIUM 130 (L) mmol/L POTASSIUM 5.7 (H) mmol/L CHLORIDE 99 mmol/L CO2 23 mmol/L ANION GAP AGAP 14 mmol/L GLUCOSE 84 mg/dL BUN 54 (H) mg/dL CREATININE 1.7 (H) mg/dL BUN/CREAT 32 CALCIUM 8.0 (L) mg/dL EGFR 32 (L) mL/min/1.73m2 Sodium [[id number]] (Abnormal) Collected: 04/18/19 140 Specimen: Blood Updated: [...] Morbid obesity (HCC) CHF (congestive heart failure) ([facility]) CKD (chronic kidney disease), stage IV Metabolic acidosis ICD (implantable cardioverter-defibrillator), single, 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, with long-term current use of insulin (HCC) Ischemic cardiomyopathy Sepsis (HCC) Gangrene of extremity ([facility]) Hyperkalemia Lactic acidosis Hyponatremia Group G streptococcal infection Skin ulcer of finger, limited to breakdown of skin ([facility]) Hyperkalemia Chest pain Non-traumatic rhabdomyolysis ASSESSMENT & [...] Management by Maye Jules RN at 04/21/19 0200 Author: Maye Jules RN Service: (none) Author Type: Registered Nurse Filed: 04/21/19 0613 Date of Service: 04/21/191129 Status: Signed Airplane And Engine Inspector: Maye Jules RN (Registered Nurse) CM had extensive conversation with pt RE d/c plan. She is not wanting to go to [facility] Car[facility]za stated she isn't ready for d/c yet a [facility]- sending referral to . 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 [phone] [id number] female [facility] Day: LOS: 7 days Patient Summary: 49-year-old female with past medical history of methamphetamine abus e stopped 8 years ago, diabetes mellitus type 2 insulin-dependent, chronic kidney disease st age IV, coronary disease status post cardiac stent to left circumflex, chronic total occlude d proximal LAD, CHF with ejection fraction 35 %, history of left BKA who was transferred [facility] with worsening swelling of the right [...] Oral Daily cefTRIAXone 2 g Intravenous Q24H iazjjdklxeqplmk-ygnoxcizudryzt-ukfvzgfv 10 mL Swish & Spit 4x daily [...] Procedure Component Value Units Date/Time POCT glucose [[id number]] (Abnormal) Collected: 04/20/19 1615 Updated: 04/20/19 1629 GLUCOSE,POC SCREEN 176 (H) mg/dL Sodium [[id number]] (Abnormal) Collected: 04/20/19 1451 Specimen: Blood Updated: 04/20/19 1511 SODIUM 130 (L) mmol/L Sputum culture [[id number]] Collected: 04/18/19 1448 Specimen: Sputum from Sputum Updated: 04/20/19 1354 Specimen Description SPUTUM GRAM STAIN GREATER THAN 10 WBCS/LPF GRAM STAIN LESS THAN 10 SEC/LPF GRAM STAIN NO ORGANISMS SEEN CULTURE 1+ NORMAL UPPER RESPIRATORY RADHA Urine culture [[id number]] Collected: 04/19/19 1051 Specimen: Urine from Urine, Clean Catch Updated: 04/20/19 1225 Specimen Description URINE,CLEAN CATCH CULTURE NO GROWTH POCT glucose [[id number]] (Abnormal) Collected: 04/20/19 1210 Updated: 04/20/19 1222 GLUCOSE,POC SCREEN 134 (H) mg/dL Sodium [[id number]] (Abnormal) Collected: 04/20/19 1101 Specimen: Blood Updated: 04/20/19 1121 SODIUM 133 (L) mmol/L POCT glucose [[id number]] (Abnormal) Collected: 04/20/19 0559 Updated: 04/20/19 0833 GLUCOSE,POC SCREEN 131 (H) mg/dL CBC w/auto diff (reflex to manual) [[id number]] (Abnormal) Collected: 04/20/19 0355 Specimen: Blood Updated: [...] ADEQUATE MORPHOLOGY PLATELET ANISOCYTOSIS Basic metabolic panel [[id number]] (Abnormal) Collected: 04/20/19 0355 Specimen: Blood Updated: 04/20/19 0502 SODIUM 131 (L) mmol/L POTASSIUM 5.2 (H) mmol/L CHLORIDE 99 mmol/L CO2 26 mmol/L ANION GAP AGAP 11 mmol/L GLUCOSE 142 (H) mg/dL BUN 52 (H) mg/dL CREATININE 1.7 (H) mg/dL BUN/CREAT 31 CALCIUM 7.5 (L) mg/dL EGFR 32 (L) mL/min/1.73m2 POCT glucose [[id number]] (Abnormal) Collected: 04/19/192109 Updated: 04/19/192115 GLUCOSE,POC SCREEN 174 (H) mg/dL Vitamin D 25 hydroxy [[id number]] Collected: 04/17/191951 Specimen: Blood Updated: 04/19/19 1740 VITAMIN D,25 HYDROXY 50 ng/mL TSH [[id number]] (Abnormal) Collected: 04/17/191951 Specimen: Blood Updated: 04/19/19 1706 TSH 9.360 (H) uIU/mL Vit D Dihydroxy 1,25 [[id number]] Collected: 04/19/19 1626 Updated: 04/19/19 1641 POCT glucose [[id number]] (Abnormal) Collected: 04/19/19 163 Updated: 04/19/19 1637 GLUCOSE,POC SCREEN 116 (H) mg/dL RPR Titer [[id number]] Collected: 04/17/191951 Specimen: Blood Updated: 04/19/19 1514 Sodium [[id number]] (Abnormal) Collected: 04/19/19 1349 Specimen: Blood Updated: 04/19/19 1421 SODIUM 132 (L) mmol/L Urinalysis Microscopic Only [[id number]] (Abnormal) Collected: 04/19/19 1042 Specimen: Urine from Urine, Catheter Updated: 04/19/19 1324 WBC 6-10 /hpf RBC 3-5 /hpf EPITHELIAL 6-10 /lpf BACTERIA 1+ (A) Mucus, UA 1+ HCV RNA quant by PCR [[id number]] Collected: 04/16/19 1458 Specimen: Blood Updated: 04/19/19 1309 HCV RNA VIRAL LOAD HCV Not Detected IU/mL TEST INFORMATION (See Below) POCT glucose [[id number]] (Abnormal) Collected: 04/19/19 1154 Updated: 04/19/19 1158 GLUCOSE,POC SCREEN 150 (H) mg/dL Hepatitis B Virus DNA Quant PCR [[id number]] Collected: 04/16/19 1458 Updated: 04/19/19 1110 HBV DNA VIRAL LOAD UPTCAL LOG10 IU/ML HB DNA VIRAL LOAD IU/mL HBV DNA not detected IU/mL COMMENT (See Below) Sodium [[id number]] (Abnormal) Collected: 04/19/19 0932 Specimen: Blood Updated: 04/19/19 1004 SODIUM 131 (L) mmol/L POCT glucose [[id number]] (Abnormal) Collected: 04/19/19 0525 Updated: 04/19/19 0837 GLUCOSE,POC SCREEN 112 (H) mg/dL POCT glucose [[id number]] (Abnormal) Collected: 04/19/19 0817 Updated: 04/19/19 0834 GLUCOSE,POC SCREEN 138 (H) mg/dL Blood Culture Set 1 [[id number]] Collected: 04/13/19 192 Specimen: Blood from Blood Line Draw Updated: 04/19/19 0610 Specimen Description BLOOD, LINE DRAW SPECIAL REQUESTS CENTRAL CULTURE NO GROWTH 6 DAYS CBC w/auto diff (reflex to manual) [[id number]] (Abnormal) Collected: 04/19/19 0145 Specimen: Blood Updated: [...] PLT MORPHOLOGY APPEAR NORMAL Basic metabolic panel [[id number]] (Abnormal) Collected: 04/19/19 014 Specimen: Blood Updated: 04/19/19432 SODIUM 132 (L) mmol/L POTASSIUM 5.2 (H) mmol/L CHLORIDE 99 mmol/L CO2 25 mmol/L ANION GAP AGAP 13 mmol/L GLUCOSE 74 mg/dL BUN 57 (H) mg/dL CREATININE 1.8 (H) mg/dL BUN/CREAT 32 CALCIUM 7.8 (L) mg/dL EGFR 30 (L) mL/min/1.73m2 POCT glucose [[id number]] (Abnormal) Collected: 04/18/192057 Updated: 04/18/192101 GLUCOSE,POC SCREEN 156 (H) mg/dL POCT glucose [[id number]] Collected: 04/18/19 1610 Updated: 04/18/192101 GLUCOSE,POC SCREEN 83 mg/dL POCT glucose [[id number]] (Abnormal) Collected: 04/18/19 1200 Updated: 04/18/19 210 GLUCOSE,POC SCREEN 102 (H) mg/dL Sodium [[id number]] (Abnormal) Collected: 04/18/191955 Specimen: Blood Updated: 04/18/192051 SODIUM 130 (L) mmol/L Basic metabolic panel [[id number]] (Abnormal) Collected: 04/18/191717 Specimen: Blood Updated: 04/18/191955 SODIUM 130 (L) mmol/L POTASSIUM 5.7 (H) mmol/L CHLORIDE 99 mmol/L CO2 23 mmol/L ANION GAP AGAP 14 mmol/L GLUCOSE 84 mg/dL BUN 54 (H) mg/dL CREATININE 1.7 (H) mg/dL BUN/CREAT 32 CALCIUM 8.0 (L) mg/dL EGFR 32 (L) mL/min/1.73m2 Sodium [[id number]] (Abnormal) Collected: 04/18/19 1409 Specimen: Blood Updated: 04/18/19 1444 SODIUM 134 (L) mmol/L POCT glucose [[id number]] (Abnormal) Collected: 04/18/1943 Updated: 04/18/19 1118 GLUCOSE,POC SCREEN 167 (H) mg/dL Sodium [[id number]] (Abnormal) Collected: 04/18/1915 Specimen: Blood Updated: 04/18/1945 SODIUM 131 (L) mmol/L POCT glucose [[id number]] (Abnormal) Collected: 04/17/192006 Updated: 04/18/19820 GLUCOSE,POC SCREEN 140 (H) mg/dL Vitamin B12 [[id number]] (Abnormal) Collected: 04/17/191951 Specimen: Blood Updated: 04/18/1952 VITAMIN B12 >2,000 (H) pg/mL Folate [[id number]] Collected: 04/17/191951 Specimen: Blood Updated: 04/18/19527 FOLATE 13.6 ng/mL CBC w/auto diff (reflex to manual) [[id number]] (Abnormal) Collected: 04/18/19 020 Specimen: Blood Updated: [...] (H) K/uL MORPHOLOGY 1+ Basic metabolic panel [[id number]] (Abnormal) Collected: 04/18/19199 Specimen: Blood Updated: 04/18/19236 SODIUM 130 (L) mmol/L POTASSIUM 5.7 (H) mmol/L CHLORIDE 100 mmol/L CO2 23 mmol/L ANION GAP AGAP 13 mmol/L GLUCOSE 177 (H) mg/dL BUN 48 (H) mg/dL CREATININE 1.74 (H) mg/dL BUN/CREAT 28 CALCIUM 7.9 (L) mg/dL EGFR 31 (L) mL/min/1.73m2 Ferritin [[id number]] (Abnormal) Collected: 04/17/191951 Specimen: Blood Updated: 04/17/192315 FERRITIN 2,076 (H) ng/mL Iron panel [[id number]] (Abnormal) Collected: 04/17/191951 Specimen: Blood Updated: 04/17/192315 IRON 40 ug/dL TIBC 194 (L) ug/dL IRON % SAT 21 % POCT glucose [[id number]] Collected: 04/17/191556 Updated: 04/17/192048 GLUCOSE,POC SCREEN 88 [...] m/s Emelyn mcginnis: FLEX Authenticated by: Mari Weissbuffalo Report Date/Time: 04-15-2019 10:55:13 1. This was [...] effusion. 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, with long-term current use of insulin ([facility]) Ischemic cardiomyopathy Sepsis ([facility]) Gangrene of extremity ([facility]) Hyperkalemia Lactic acidosis Hyponatremia Group G streptococcal infection Skin ulcer of finger, limited to breakdown of skin ([facility]) Hyperkalemia ASSESSMENT & PLAN Septic shock resolved [...] 04/20/191416 Date of Service: 04/20/191416 Status: Signed Airplane And Engine Inspector: Lorraine Evans RD (Registered Dietitian) 04/20/19 4641 Subjective Timepoint Follow up (M risk ) Pt c/o Pt reports intake is fair. Comes and goes depending on pain. Thinks she may be dis charged to SNF tomorrow. Fluid / Beverage Intake Liquid Meal Replacement or Supplement Did not like Stnaley. Had asked to have Boost stopped, but [...] Rectum) Reports sores in her mouth. States [facility] mouthwash is h elping. Biochemical data, medical tests, and procedures reviewed Biochemical data, medical tests, and procedures reviewed K elevated. Recommendations Recommended energy needs Continue diet as ordered. Recommend avoid high potassium foods. Cancel boost glucose control and stanley. Add boost breeze prn. Monitor and follow as bruce castellanos. Nutritional Risk Nutritional risk Low / moderate Follow up date 04/26/19 lMorteza denney, PLANT OPERATIONS WORKER - 04/20/2019 1:54 PM PDTFormatting of this note might be different from t he original. Progress Notes by Morteza Jimenez CPO, LPO at 04/20/19 4028 Author: Morteza Jimenez CPO, LPO Service: Prosthetics/Orthotics Author Type: Certifi ed Orthotics/Prosthetics Filed: 04/20/19 1087 Date of Service: 04/20/19 9004 Status: Signed Airplane And Engine Inspector: Morteza Jimenez CPO, LPO (Certified Orthotics/Prosthetics) [facility] note: Alondra Shane is seen for the [...] Date of Service: 04/20/19 1216 Status: Signed Airplane And Engine Inspector: Char Veliz MD (Physician) [facility] Service: Infectious Diseases Progress Note Hospital Day: [...] chart Follow-up in 2 weeks Dictation software, [employer], used which may contain error for similar [...] Date of Service: 04/20/19 1038 Status: Signed Airplane And Engine Inspector: Yuli Guerra RN (Registered Nurse) Rounded with Dr Carranza: pt not medically ready today. Possibly tomorrow. Following H&Hs an d stool. 1040: messaged Iftikhar at [facility] to inform her of possible discharge over the [place]. Morteza Montes CPO - 04/20/2019 8:59 AM PDTFormatting of this note might be different from t he original. Progress Notes by Morteza Jimenez CPO, LPO at 04/20/19 0859 Author: Morteza Jimenez CPO, LPO Service: Prosthetics/Orthotics Author Type: Certifi ed Orthotics/Prosthetics Filed: 04/20/19 0903 Date of Service: 04/20/19 0859 Status: Signed Airplane And Engine Inspector: Morteza Jimenez CPO, LPO (Certified Orthotics/Prosthetics) [facility] note: Alondra Shane Is seen this morning for the measuring of her RT [place] amputa tion for a AmpuShield stump protector. She is familiar with their use as she had one for the left side below the knee. I will return this afternoon to fit the protector. Call for quest ions. Morteza Jimenez CPO/LPO [phone] Princess Sanabria MD - 04/20/2019 6:43 AM PDT Progress Notes by Mari Mcdaniel MD at 04/20/19 0643 Author: Mari Mcdaniel MD Service: Cardiology Author Type: Physician Filed: 05/07/19 1259 Date of Service: 04/20/19 0643 Status: Signed Airplane And Engine Inspector: Mari Mcdaniel MD (Physician) [facility] Service: Cardiology Progress Note Name of Research Hydrologist: Mari Mcdaniel MD I have seen the [...] 25 mL, Intravenous, PRN, Mark Carranza MD aahndeyizbxzqrn-baoicutcqddrbk-xapcoaph ([employer]) suspension 10 mL, 10 mL, [...] Once per da y on Tue, Mark Cararnza MD, 10,000 Units at 04/18/19 1148 gabapentin [...] tablet 10 mg, 10 mg, Oral, Q4H MO N OR oxyCODONE (ROXICODONE) immediate release tablet [...] 04/20/19612 Date of Service: 04/20/19609 Status: Signed Airplane And Engine Inspector: Abiola Jane RN (Registered Nurse) Pt lethargic [...] 04/19/192137 Date of Service: 04/19/192031 Status: Signed Airplane And Engine Inspector: Mari Mcdaniel MD (Physician) [facility] Service: Cardiology Progress Note Name of Research Hydrologist: Mari Mcdaniel MD I have seen the [...] 25 mL, Intravenous, PRN, Mark Carranza MD ekmauqqhdbslovb-yxzppqtvujhiwt-yuxkbhaa ([employer]) suspension 10 mL, 10 mL, [...] tablet 10 mg, 10 mg, Oral, Q4H MO N OR oxyCODONE (ROXICODONE) immediate release tablet 15 mg, 15 mg, Oral, Q4H PRN, Alyson Armstrong, SOLE LAYER, 15 mg at 04/19/19 0647 petrolatum (LUBRIFRESH [...] Notes by Mark Carranza MD at 04/19/19 3450 Author: Mark Carranza MD Service: Hospitalist Author Type: Physician Filed: 04/19/19 4834 Date of Service: 04/19/19 7529 Status: Signed Airplane And Engine Inspector: Mark Carranza MD (Physician) Hospitalist Progress Note Alondra Caballero 49 y.o. [phone] [id number] female [facility] Day: LOS: 6 days Patient Summary: 49-year-old female with past medical history of methamphetamine abus e stopped 8 years ago, diabetes mellitus type 2 insulin-dependent, chronic kidney disease st age IV, coronary disease status post cardiac stent to left circumflex, chronic total occlude d proximal LAD, CHF with ejection fraction 35 %, history of left BKA who was transferred fro [facility] with worsening swelling of the right [...] Results Procedure Component Value Units Date/Time Sodium [[id number]] (Abnormal) Collected: 04/19/19 1349 Specimen: Blood Updated: 04/19/19 1421 SODIUM 132 (L) mmol/L Urinalysis Microscopic Only [[id number]] (Abnormal) Collected: 04/19/19 1042 Specimen: Urine from Urine, Catheter Updated: 04/19/19 1324 WBC 6-10 /hpf RBC 3-5 /hpf EPITHELIAL 6-10 /lpf BACTERIA 1+ (A) Mucus, UA 1+ HCV RNA quant by PCR [[id number]] Collected: 04/16/19 1458 Specimen: Blood Updated: 04/19/19 1309 HCV RNA VIRAL LOAD HCV Not Detected IU/mL TEST INFORMATION (See Below) Urine culture [[id number]] Collected: 04/19/19 1051 Specimen: Urine from Urine, Clean Catch Updated: 04/19/19 1256 Sputum culture [[id number]] Collected: 04/18/19 1448 Specimen: Sputum from Sputum Updated: 04/19/19 1204 Specimen Description SPUTUM GRAM STAIN GREATER THAN 10 WBCS/LPF GRAM STAIN LESS THAN 10 SEC/LPF GRAM STAIN NO ORGANISMS SEEN CULTURE 1+ NORMAL UPPER RESPIRATORY RADHA POCT glucose [[id number]] (Abnormal) Collected: 04/19/19 1154 Updated: 04/19/19 1158 GLUCOSE,POC SCREEN 150 (H) mg/dL Hepatitis B Virus DNA Quant PCR [[id number]] Collected: 04/16/19 1458 Updated: 04/19/19 1110 HBV DNA VIRAL LOAD UPTCAL LOG10 IU/ML HB DNA VIRAL LOAD IU/mL HBV DNA not detected IU/mL COMMENT (See Below) Sodium [[id number]] (Abnormal) Collected: 04/19/19 0932 Specimen: Blood Updated: 04/19/19 1004 SODIUM 131 (L) mmol/L POCT glucose [[id number]] (Abnormal) Collected: 04/19/19 0525 Updated: 04/19/19 0837 GLUCOSE,POC SCREEN 112 (H) mg/dL POCT glucose [[id number]] (Abnormal) Collected: 04/19/19 0817 Updated: 04/19/19 0834 GLUCOSE,POC SCREEN 138 (H) mg/dL Blood Culture Set 1 [[id number]] Collected: 04/13/19 1922 Specimen: Blood from Blood Line Draw Updated: 04/19/19 0610 Specimen Description BLOOD, LINE DRAW SPECIAL REQUESTS CENTRAL CULTURE NO GROWTH 6 DAYS CBC w/auto diff (reflex to manual) [[id number]] (Abnormal) Collected: 04/19/19 0145 Specimen: Blood Updated: [...] PLT MORPHOLOGY APPEAR NORMAL Basic metabolic panel [[id number]] (Abnormal) Collected: 04/19/19 0145 Specimen: Blood Updated: 04/19/19432 SODIUM 132 (L) mmol/L POTASSIUM 5.2 (H) mmol/L CHLORIDE 99 mmol/L CO2 25 mmol/L ANION GAP AGAP 13 mmol/L GLUCOSE 74 mg/dL BUN 57 (H) mg/dL CREATININE 1.8 (H) mg/dL BUN/CREAT 32 CALCIUM 7.8 (L) mg/dL EGFR 30 (L) mL/min/1.73m2 POCT glucose [[id number]] (Abnormal) Collected: 04/18/192057 Updated: 04/18/192101 GLUCOSE,POC SCREEN 156 (H) mg/dL POCT glucose [[id number]] Collected: 04/18/19 1610 Updated: 04/18/192101 GLUCOSE,POC SCREEN 83 mg/dL POCT glucose [[id number]] (Abnormal) Collected: 04/18/19 1200 Updated: 04/18/192100 GLUCOSE,POC SCREEN 102 (H) mg/dL Sodium [[id number]] (Abnormal) Collected: 04/18/191955 Specimen: Blood Updated: 04/18/192051 SODIUM 130 (L) mmol/L Basic metabolic panel [[id number]] (Abnormal) Collected: 04/18/191717 Specimen: Blood Updated: 04/18/191955 SODIUM 130 (L) mmol/L POTASSIUM 5.7 (H) mmol/L CHLORIDE 99 mmol/L CO2 23 mmol/L ANION GAP AGAP 14 mmol/L GLUCOSE 84 mg/dL BUN 54 (H) mg/dL CREATININE 1.7 (H) mg/dL BUN/CREAT 32 CALCIUM 8.0 (L) mg/dL EGFR 32 (L) mL/min/1.73m2 Sodium [[id number]] (Abnormal) Collected: 04/18/19 1409 Specimen: Blood Updated: 04/18/19 1444 SODIUM 134 (L) mmol/L POCT glucose [[id number]] (Abnormal) Collected: 04/18/1943 Updated: 04/18/19 1118 GLUCOSE,POC SCREEN 167 (H) mg/dL Sodium [[id number]] (Abnormal) Collected: 04/18/1915 Specimen: Blood Updated: 04/18/1945 SODIUM 131 (L) mmol/L POCT glucose [[id number]] (Abnormal) Collected: 04/17/192006 Updated: 04/18/19820 GLUCOSE,POC SCREEN 140 (H) mg/dL Vitamin B12 [[id number]] (Abnormal) Collected: 04/17/191951 Specimen: Blood Updated: 04/18/19551 VITAMIN B12 >2,000 (H) pg/mL Folate [[id number]] Collected: 04/17/191951 Specimen: Blood Updated: 04/18/19527 FOLATE 13.6 ng/mL CBC w/auto diff (reflex to manual) [[id number]] (Abnormal) Collected: 04/18/19199 Specimen: Blood Updated: 04/18/19439 [...] (H) K/uL MORPHOLOGY 1+ Basic metabolic panel [[id number]] (Abnormal) Collected: 04/18/19199 Specimen: Blood Updated: 04/18/19236 SODIUM 130 (L) mmol/L POTASSIUM 5.7 (H) mmol/L CHLORIDE 100 mmol/L CO2 23 mmol/L ANION GAP AGAP 13 mmol/L GLUCOSE 177 (H) mg/dL BUN 48 (H) mg/dL CREATININE 1.74 (H) mg/dL BUN/CREAT 28 CALCIUM 7.9 (L) mg/dL EGFR 31 (L) mL/min/1.73m2 Ferritin [[id number]] (Abnormal) Collected: 04/17/191951 Specimen: Blood Updated: 04/17/192315 FERRITIN 2,076 (H) ng/mL Iron panel [[id number]] (Abnormal) Collected: 04/17/191951 Specimen: Blood Updated: 04/17/192315 IRON 40 ug/dL TIBC 194 (L) ug/dL IRON % SAT 21 % POCT glucose [[id number]] Collected: 04/17/19 1557 Updated: 04/17/19 2049 GLUCOSE,POC SCREEN 88 mg/dL Sodium [[id number]] (Abnormal) Collected: 04/17/19 1447 Specimen: Blood Updated: 04/17/19 1513 SODIUM 133 (L) mmol/L POCT glucose [[id number]] (Abnormal) Collected: 04/17/19 1201 Updated: 04/17/19 1443 GLUCOSE,POC SCREEN 118 (H) mg/dL Sodium [[id number]] (Abnormal) Collected: 04/17/19 1130 Specimen: Blood Updated: 04/17/19 1148 SODIUM 133 (L) mmol/L Pathologist consult [[id number]] Collected: 04/13/19 192 Updated: 04/17/19 1032 Pathologist Consult -- POCT glucose [[id number]] (Abnormal) Collected: 04/17/19 0915 Updated: 04/17/19 0935 GLUCOSE,POC SCREEN 136 (H) mg/dL CBC w/auto diff (reflex to manual) [[id number]] (Abnormal) Collected: 04/17/19 06 Specimen: Blood from [...] Estimate ADEQUATE MORPHOLOGY 1+ Basic metabolic panel [[id number]] (Abnormal) Collected: 04/17/19626 Specimen: Blood from Blood Updated: 04/17/19654 SODIUM 135 mmol/L POTASSIUM 5.2 (H) mmol/L CHLORIDE 109 mmol/L CO2 23 mmol/L ANION GAP AGAP 8 mmol/L GLUCOSE 102 (H) mg/dL BUN 58 (H) mg/dL CREATININE 1.95 (H) mg/dL BUN/CREAT 30 CALCIUM 7.7 (L) mg/dL EGFR 27 (L) mL/min/1.73m2 POCT glucose [[id number]] (Abnormal) Collected: 04/17/19522 Updated: 04/17/19 0549 GLUCOSE,POC SCREEN 102 (H) mg/dL Blood Culture Set 1 [[id number]] Collected: 04/15/19 1258 Specimen: Blood from Blood Line Draw Updated: 04/17/19536 Specimen Description BLOOD, LINE DRAW SPECIAL REQUESTS ART LINE HAND CULTURE NO GROWTH 2 DAYS Blood Culture Set 2 [[id number]] Collected: 04/15/19 1255 Specimen: Blood from Blood Line Draw Updated: 04/17/19536 Specimen Description BLOOD, LINE DRAW SPECIAL REQUESTS art line CULTURE NO GROWTH 2 DAYS Sodium [[id number]] Collected: 04/17/19 0235 Specimen: Blood from Blood Updated: 04/17/19 0309 SODIUM 135 mmol/L POCT glucose [[id number]] (Abnormal) Collected: 04/16/192108 Updated: 04/16/19 231 GLUCOSE,POC SCREEN 136 (H) mg/dL Sodium [[id number]] Collected: 04/16/192026 Specimen: Blood from Blood Updated: 04/16/192105 SODIUM 135 mmol/L Hepatitis panel, chronic [[id number]] (Abnormal) Collected: 04/16/19 1458 Updated: 04/16/192007 Hep A Total Ab REACTIVE (A) HEP B SURFACE AG NON REACTIVE HEP B CORE AB,TOTAL NON REACTIVE HEP B SURFACE ANTIBODY <0.35 IV HEPATITIS C REACTIVE (A) HEPATITIS INTERP Current or past HAV infection and current or past HCV infection. No sero logic evidence of HBV infection or vaccination. POCT glucose [[id number]] (Abnormal) Collected: 04/16/19 1518 Updated: 04/16/19 1922 GLUCOSE,POC SCREEN 177 (H) mg/dL Sodium [[id number]] Collected: 04/16/19 1434 Specimen: Blood Updated: 04/16/19 [...] m/s So nographer: FLEX Authenticated by: Mari Weissbuffalo Report Date/Time: 04-15-2019 10:55:13 1. This was [...] nephropathy, with long-term current use of insulin ([facility]) Ischemic cardiomyopathy Sepsis (HCC) Gangrene of extremity [...] prophylaxis on heparin MARK CARRAN[facility] Veliz MD - 04/19/2019 11:13 AM PDTFormatting of this note might be different from the orig inal. Progress Notes by Char Veliz MD at 04/19/19 1113 Author: Char Veliz MD Service: Infectious Disease Author Type: Ginna meyer Filed: 04/19/19 1115 Date of Service: 04/19/191112 Status: Signed Airplane And Engine Inspector: Char Veliz MD (Physician) [facility] Service: Infectious Diseases Progress Note Hospital Day: [...] Discussed with Dr. Carranza. May benefit from teleAppirio Dictation software, [employer], used which may contain error for similar [...] 0855 Date of Service: 04/19/19810 Status: Addendum Airplane And Engine Inspector: Yuli Guerra RN (Registered Nurse) Related Notes: Original Note by Yuli Guerra RN (Registered Nurse) filed at 04/19/19 0812 0810: spoke with pt about discharge planning- physical therapy is recommending SNF. Pt nee ds IV antibiotics after discharge as well. Pt lives in [place], sent referral to [facility] as her family lives in [place]. Will send referral to [facility] as second option if [facility] is unable to accept. 0850: Iftikhar from [facility] called and accepted pt. Asked Dr Carranza when he thinks the pt will be medically ready- he said in 1-2 days, updated Iftikhar. onver jessica Transaction, Provider Unknown - 04/19/2019 6:01 AM PDT Nurse Progress Note by Vandana Adamson RN at 04/19/19600 Author: Vandana Adamson RN Service: (none) Author Type: Registered Nurse Filed: 04/19/19600 Date of Service: 04/19/19600 Status: Signed Airplane And Engine Inspector: Vandana Adamson RN (Registered Nurse) Patient slept for most of shift. Pain medication given x2. No other acute changes noted. En d of shift review done. Mari Reyna ra, MD - 04/18/2019 7:45 PM PDT Progress Notes by Mari Mcdaniel MD at 04/18/191944 Author: Mari Mcdaniel MD Service: Cardiology Author Type: Physician Filed: 04/18/191948 Date of Service: 04/18/191944 Status: Signed Airplane And Engine Inspector: Mari Mcdaniel MD (Physician) [facility] Service: Cardiology Progress Note Name of Research Hydrologist: Mari Mcdaniel MD I have seen the [...] tablet 10 mg, 10 mg, Oral, Q4H MO N OR oxyCODONE (ROXICODONE) immediate release tablet 15 mg, 15 mg, Oral, Q4H PRN, REBECCA Tomlinson, 15 mg at 04/18/19 1600 petrolatum (LUBRIFRESH P.M.) ophthalmic ointment, , Both Eyes, PRN, Sheron Armstrong, SOLE LAYER sodium bicarbonate tablet 1,300 mg, 1,300 mg, [...] 04/18/191744 Date of Service: 04/18/191740 Status: Signed Airplane And Engine Inspector: Umberto Christina RN (Registered Nurse) VSS, afebrile. [...] Date of Service: 04/18/19 151 Status: Signed Airplane And Engine Inspector: Kym Wilson PT (Physical Therapist) 04/18/19 1511 [...] Date of Service: 04/18/19 1410 Status: Signed Airplane And Engine Inspector: Mark Carranza MD (Physician) Hospitalist Progress Note Alondrabalwinder Shane Federico 49 y.o. 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, coronary disease status post cardiac stent to left circumflex, chronic total occlude d proximal LAD, CHF with ejection fraction 35 %, history of left BKA who was transferred fro [facility] with worsening swelling of the right [...] Procedure Component Value Units Date/Time POCT glucose [[id number]] (Abnormal) Collected: 04/18/19542 Updated: 04/18/19 1118 GLUCOSE,POC SCREEN 167 (H) mg/dL Sodium [[id number]] (Abnormal) Collected: 04/18/19814 Specimen: Blood Updated: 04/18/19844 SODIUM 131 (L) mmol/L POCT glucose [[id number]] (Abnormal) Collected: 04/17/192006 Updated: 04/18/19 08 GLUCOSE,POC SCREEN 140 (H) mg/dL Vitamin B12 [[id number]] (Abnormal) Collected: 04/17/191951 Specimen: Blood Updated: 04/18/19551 VITAMIN B12 >2,000 (H) pg/mL Folate [[id number]] Collected: 04/17/191951 Specimen: Blood Updated: 04/18/19527 FOLATE 13.6 ng/mL CBC w/auto diff (reflex to manual) [[id number]] (Abnormal) Collected: 04/18/19199 Specimen: Blood Updated: 04/18/19 [...] (H) K/uL MORPHOLOGY 1+ Basic metabolic panel [[id number]] (Abnormal) Collected: 04/18/19 0200 Specimen: Blood Updated: 04/18/19 0237 SODIUM 130 (L) mmol/L POTASSIUM 5.7 (H) mmol/L CHLORIDE 100 mmol/L CO2 23 mmol/L ANION GAP AGAP 13 mmol/L GLUCOSE 177 (H) mg/dL BUN 48 (H) mg/dL CREATININE 1.74 (H) mg/dL BUN/CREAT 28 CALCIUM 7.9 (L) mg/dL EGFR 31 (L) mL/min/1.73m2 Ferritin [[id number]] (Abnormal) Collected: 04/17/191951 Specimen: Blood Updated: 04/17/192315 FERRITIN 2,076 (H) ng/mL Iron panel [[id number]] (Abnormal) Collected: 04/17/191951 Specimen: Blood Updated: 04/17/192315 IRON 40 ug/dL TIBC 194 (L) ug/dL IRON % SAT 21 % POCT glucose [[id number]] Collected: 04/17/19 1557 Updated: 04/17/19 2049 GLUCOSE,POC SCREEN 88 mg/dL Sodium [[id number]] (Abnormal) Collected: 04/17/19 1447 Specimen: Blood Updated: 04/17/19 1513 SODIUM 133 (L) mmol/L POCT glucose [[id number]] (Abnormal) Collected: 04/17/19 1201 Updated: 04/17/19 1443 GLUCOSE,POC SCREEN 118 (H) mg/dL Sodium [[id number]] (Abnormal) Collected: 04/17/19 1130 Specimen: Blood Updated: 04/17/19 1148 SODIUM 133 (L) mmol/L Pathologist consult [[id number]] Collected: 04/13/19 1922 Updated: 04/17/19 1032 Pathologist Consult -- POCT glucose [[id number]] (Abnormal) Collected: 04/17/19 0915 Updated: 04/17/19 0935 GLUCOSE,POC SCREEN 136 (H) mg/dL CBC w/auto diff (reflex to manual) [[id number]] (Abnormal) Collected: 04/17/19 0627 Specimen: Blood from [...] Estimate ADEQUATE MORPHOLOGY 1+ Basic metabolic panel [[id number]] (Abnormal) Collected: 04/17/19626 Specimen: Blood from Blood Updated: 04/17/19654 SODIUM 135 mmol/L POTASSIUM 5.2 (H) mmol/L CHLORIDE 109 mmol/L CO2 23 mmol/L ANION GAP AGAP 8 mmol/L GLUCOSE 102 (H) mg/dL BUN 58 (H) mg/dL CREATININE 1.95 (H) mg/dL BUN/CREAT 30 CALCIUM 7.7 (L) mg/dL EGFR 27 (L) mL/min/1.73m2 POCT glucose [[id number]] (Abnormal) Collected: 04/17/19522 Updated: 04/17/19 0549 GLUCOSE,POC SCREEN 102 (H) mg/dL Blood Culture Set 1 [[id number]] Collected: 04/15/19 1258 Specimen: Blood from Blood Line Draw Updated: 04/17/19536 Specimen Description BLOOD, LINE DRAW SPECIAL REQUESTS ART LINE HAND CULTURE NO GROWTH 2 DAYS Blood Culture Set 2 [[id number]] Collected: 04/15/19 1255 Specimen: Blood from Blood Line Draw Updated: 04/17/19536 Specimen Description BLOOD, LINE DRAW SPECIAL REQUESTS art line CULTURE NO GROWTH 2 DAYS Sodium [[id number]] Collected: 04/17/19 0235 Specimen: Blood from Blood Updated: 04/17/19 0309 SODIUM 135 mmol/L POCT glucose [[id number]] (Abnormal) Collected: 04/16/192108 Updated: 04/16/19 2319 GLUCOSE,POC SCREEN 136 (H) mg/dL Sodium [[id number]] Collected: 04/16/192026 Specimen: Blood from Blood Updated: 04/16/192105 SODIUM 135 mmol/L Hepatitis panel, chronic [[id number]] (Abnormal) Collected: 04/16/19 1458 Updated: 04/16/192007 Hep A Total Ab REACTIVE (A) HEP B SURFACE AG NON REACTIVE HEP B CORE AB,TOTAL NON REACTIVE HEP B SURFACE ANTIBODY <0.35 IV HEPATITIS C REACTIVE (A) HEPATITIS INTERP Current or past HAV infection and current or past HCV infection. No sero logic evidence of HBV infection or vaccination. POCT glucose [[id number]] (Abnormal) Collected: 04/16/19 1518 Updated: 04/16/19 1922 GLUCOSE,POC SCREEN 177 (H) mg/dL HCV RNA quant by PCR [[id number]] Collected: 04/16/19 145 Specimen: Blood Updated: 04/16/19 1631 Hepatitis B Virus DNA Quant PCR [[id number]] Collected: 04/16/191457 Updated: 04/16/19 1631 Sodium [[id number]] Collected: 04/16/19 1434 Specimen: Blood Updated: 04/16/19 1455 SODIUM 135 mmol/L POCT glucose [[id number]] (Abnormal) Collected: 04/16/19 1202 Updated: 04/16/19 1212 GLUCOSE,POC SCREEN 135 (H) mg/dL CBC w/auto diff (reflex to manual) [[id number]] (Abnormal) Collected: 04/16/19 0745 Specimen: Blood from [...] Estimate ADEQUATE MORPHOLOGY NORMAL Basic metabolic panel [[id number]] (Abnormal) Collected: 04/16/19744 Specimen: Blood from Blood Updated: 04/16/19823 SODIUM 135 mmol/L POTASSIUM 4.7 mmol/L CHLORIDE 107 mmol/L CO2 23 mmol/L ANION GAP AGAP 10 mmol/L GLUCOSE 173 (H) mg/dL BUN 63 (H) mg/dL CREATININE 2.42 (H) mg/dL BUN/CREAT 26 CALCIUM 7.1 (L) mg/dL EGFR 21 (L) mL/min/1.73m2 Vancomycin,Random [[id number]] Collected: 04/16/19744 Specimen: Blood from Blood Updated: 04/16/19823 VANCOMYCIN,RANDOM 15.9 ug/mL Blood Culture Set 2 [[id number]] (Abnormal) (Susceptibility) Collected: 04/13/192023 Specimen: Blood from [...] TIME TO DETECTION: 0.84 DAYS POCT glucose [[id number]] (Abnormal) Collected: 04/15/19 1303 Updated: 04/16/19 0643 GLUCOSE,POC SCREEN 169 (H) mg/dL POCT glucose [[id number]] (Abnormal) Collected: 04/15/19 1130 Updated: 04/16/19 0643 GLUCOSE,POC SCREEN 153 (H) mg/dL POCT glucose [[id number]] (Abnormal) Collected: 04/15/19 0856 Updated: 04/16/19 0643 GLUCOSE,POC SCREEN 127 (H) mg/dL POCT glucose [[id number]] (Abnormal) Collected: 04/16/19 0542 Updated: 04/16/19 0636 GLUCOSE,POC SCREEN 208 (H) mg/dL POCT glucose [[id number]] (Abnormal) Collected: 04/15/192106 Updated: 04/16/19635 GLUCOSE,POC SCREEN 284 (H) mg/dL Sodium [[id number]] (Abnormal) Collected: 04/16/19 024 Specimen: Blood from Blood Updated: 04/16/19313 SODIUM 133 (L) mmol/L Sodium [[id number]] (Abnormal) Collected: 04/15/192024 Specimen: Blood Updated: 04/15/192054 [...] Notes by Anderson Lopez PA-C at 04/18/19 8381 Author: Anderson Lopez PA-C Service: Vascular Surgery Author Type: Physician Tong Setter - Certified Filed: 04/18/19 9740 Date of Service: 04/18/191216 Status: Signed Airplane And Engine Inspector: Anderson Lopez PA-C (Physician Tong Setter - Certified) [facility] Service: Vascular Surgery Progress Note Hospital Day: LOS: 5 days Post-Op Day: 4 SUBJECTIVE Patient Summary: The patient is a 49 y.o. female with significant past medical histo ry of CAD, CHF, previous MO, DMII uncontrolled, HTN, HLD, meth induced seizures, s/p left BK A and non healing wounds of right lower extremity who presented to [facility] an d was found to be in septic shock. She was transferred to [facility] ICU on 04/13/2019. She has a h [...] dry dressing. Wound is clean and intact. Crane in place with no drainage or erythema. [...] Disease Author Type: Physici an Filed: 04/18/19 3715 Date of Service: 04/18/191155 Status: Signed Airplane And Engine Inspector: Char Veliz MD (Physician) [facility] Service: Infectious Diseases Progress Note Hospital Day: [...] commands. LABS: MICRO Blood Culture Set 1 [[id number]] Collected: 04/15/19 1258 Order Status: Completed Lab Status: Preliminary result Updated: 04/17/1937 Specimen: Blood from Blood Line Draw Specimen Description BLOOD, LINE DRAW SPECIAL REQUESTS ART LINE HAND CULTURE NO GROWTH 2 DAYS Blood Culture Set 2 [[id number]] Collected: 04/15/195 Order Status: Completed Lab Status: Preliminary result Updated: 04/17/1937 Specimen: Blood from Blood Line Draw Specimen Description BLOOD, LINE DRAW SPECIAL REQUESTS art line CULTURE NO GROWTH 2 DAYS Blood Culture Set 2 [[id number]] (Abnormal) Collected: 04/13/192023 Order Status: Completed Lab [...] Method: CELESTINA Levofloxacin Sensitive SUSCEPTIBLE Final Method: CLEESTINA Linezolid Sensitive SUSCEPTIBLE Final Method: CELESTINA PENICILLIN (ORAL) Sensitive SUSCEPTIBLE Final Method: CELESTINA PENICILLIN (PNEUMONIA) Sensitive SUSCEPTIBLE Final Method: CELESTINA PENICILLIN OTHER Sensitive SUSCEPTIBLE Final Method: CELESTINA Penicillin G Sensitive SUSCEPTIBLE Final Method: CELESTINA Tetracycline Sensitive SUSCEPTIBLE Final Method: CELESTINA Vancomycin Sensitive SUSCEPTIBLE Final Method: CELESTINA Wound culture [[id number]] (Abnormal) Collected: 04/13/191923 Order Status: Completed Lab Status: Final result Updated: 04/15/19 1017 Specimen: Wound from Foot Specimen Description FOOT CULTURE 2+ BETA HEMOLYTIC GROUP G STREPTOCOCCUS (A) BETA STREP ORGANISMS ARE PREDICTABLY SUSCEPTIBLE TO PENICILLIN AND CEPHALOSPORINS 2+ MIXED GRAM POSITIVE AND GRAM NEGATIVE RADHA NO FURTHER WORKUP Blood Culture Set 1 [[id number]] Collected: 04/13/191921 Order Status: Completed Lab Status: Preliminary result Updated: 04/15/19722 Specimen: Blood from Blood Line Draw Specimen Description BLOOD, LINE DRAW SPECIAL REQUESTS CENTRAL CULTURE NO GROWTH 2 DAYS MRSA by PCR [[id number]] Collected: 04/13/19 182 Order Status: Completed Lab Status: Final result Updated: 04/13/191937 Specimen: Nasopharyngeal from Nasopharyngeal Culture SOURCE NARES(NOSE) MRSA PCR NEGATIVE Comment: [place] [facility] [place] [place] [address];[place] [address] All labs were reviewed. CBC: Lab Results [...] PICC line PEnding HCV RNA Dictation software, [employer], used which may contain error for similar [...] 04/18/19953 Date of Service: 04/18/19953 Status: Signed Airplane And Engine Inspector: Yuli Guerra RN (Registered Nurse) Rounded with Dr Carranza: pt not medically ready for discharge today. onver jessica Transaction, Provider Unknown - 04/18/2019 6:11 AM PDT Nurse Progress Note by Anitra Menard RN at 04/18/19610 Author: Anitra Menard RN Service: Assistant Portfolio Manager Author Type: Registered Nurse Filed: 04/18/19610 Date of Service: 04/18/19610 Status: Signed Airplane And Engine Inspector: Anitra Menard RN (Registered Nurse) Pt not longer being followed by sepsis RN as VSS for 24 hr and WBC trending down. Please no eleuterio sepsis RN of any significant changes @ [phone]. ANITRA MENARD RN, BSN, CCRN, CMC, CSC SEPSIS NURSE [facility] Mari Reyna ra, MD - 04/17/2019 8:49 PM PDT Progress Notes by Mari Mcdaniel MD at 04/17/192048 Author: Mari Mcdaniel MD Service: Cardiology Author Type: Physician Filed: 04/17/192050 Date of Service: 04/17/192048 Status: Signed Airplane And Engine Inspector: Mari Mcdaniel MD (Physician) [facility] Service: Cardiology Progress Note Name of Research Hydrologist: Mari Mcdaniel MD I have seen the [...] 4 mg, Intravenous, Q6H PRN, Sheron Armstrong, SOLE LAYER, 4 mg at 0 04/15/19 1012 oxyCODONE (ROXICODONE) immediate release tablet 5 mg, 5 mg, Oral, Q4H PRN, 5 mg at 1954 OR oxyCODONE (ROXICODONE) immediate release tablet 10 mg, 10 mg, Oral, Q4H MO N OR oxyCODONE (ROXICODONE) immediate release tablet 15 mg, 15 mg, Oral, Q4H PRN, REBECCA Tomlinson, 15 mg at 04/16/19 0536 petrolatum (LUBRIFRESH P.M.) ophthalmic ointment, , Both Eyes, PRN, REBECCA Escobar sodium bicarbonate tablet 1,300 mg, 1,300 mg, Oral, TID, Altaf Ramires MD, 1,300 mg at 04/17/191954 sodium [...] 191 Date of Service: 04/17/191836 Status: Signed Airplane And Engine Inspector: Mark Carranza MD (Physician) Hospitalist Progress Note Alondra Svitlanapatricia Caballero 49 y.o. [phone] [id number] female [facility] Day: LOS: 4 days Patient Summary: 49-year-old female with past medical history of methamphetamine abus e stopped 8 years ago, diabetes mellitus type 2 insulin-dependent, chronic kidney disease st age IV, coronary disease status post cardiac stent to left circumflex, chronic total occlude d proximal LAD, CHF with ejection fraction 35 %, history of left BKA who was transferred fro [facility] with worsening swelling of the right [...] Results Procedure Component Value Units Date/Time Sodium [[id number]] (Abnormal) Collected: 04/17/19 1447 Specimen: Blood Updated: 04/17/19 1513 SODIUM 133 (L) mmol/L POCT glucose [[id number]] (Abnormal) Collected: 04/17/19 1201 Updated: 04/17/19 1443 GLUCOSE,POC SCREEN 118 (H) mg/dL Sodium [[id number]] (Abnormal) Collected: 04/17/19 1130 Specimen: Blood Updated: 04/17/19 1148 SODIUM 133 (L) mmol/L Pathologist consult [[id number]] Collected: 04/13/19 1922 Updated: 04/17/19 1032 Pathologist Consult -- POCT glucose [[id number]] (Abnormal) Collected: 04/17/19 0915 Updated: 04/17/19 0935 GLUCOSE,POC SCREEN 136 (H) mg/dL CBC w/auto diff (reflex to manual) [[id number]] (Abnormal) Collected: 04/17/19 0627 Specimen: Blood from [...] Estimate ADEQUATE MORPHOLOGY 1+ Basic metabolic panel [[id number]] (Abnormal) Collected: 04/17/19626 Specimen: Blood from Blood Updated: 04/17/19654 SODIUM 135 mmol/L POTASSIUM 5.2 (H) mmol/L CHLORIDE 109 mmol/L CO2 23 mmol/L ANION GAP AGAP 8 mmol/L GLUCOSE 102 (H) mg/dL BUN 58 (H) mg/dL CREATININE 1.95 (H) mg/dL BUN/CREAT 30 CALCIUM 7.7 (L) mg/dL EGFR 27 (L) mL/min/1.73m2 POCT glucose [[id number]] (Abnormal) Collected: 04/17/19522 Updated: 04/17/19 0549 GLUCOSE,POC SCREEN 102 (H) mg/dL Blood Culture Set 1 [[id number]] Collected: 04/15/19 1258 Specimen: Blood from Blood Line Draw Updated: 04/17/19536 Specimen Description BLOOD, LINE DRAW SPECIAL REQUESTS ART LINE HAND CULTURE NO GROWTH 2 DAYS Blood Culture Set 2 [[id number]] Collected: 04/15/19 1255 Specimen: Blood from Blood Line Draw Updated: 04/17/1937 Specimen Description BLOOD, LINE DRAW SPECIAL REQUESTS art line CULTURE NO GROWTH 2 DAYS Sodium [[id number]] Collected: 04/17/19 0235 Specimen: Blood from Blood Updated: 04/17/19 0309 SODIUM 135 mmol/L POCT glucose [[id number]] (Abnormal) Collected: 04/16/192108 Updated: 04/16/19 2319 GLUCOSE,POC SCREEN 136 (H) mg/dL Sodium [[id number]] Collected: 04/16/192026 Specimen: Blood from Blood Updated: 04/16/192105 SODIUM 135 mmol/L Hepatitis panel, chronic [[id number]] (Abnormal) Collected: 04/16/19 145 Updated: 04/16/192007 Hep A Total Ab REACTIVE (A) HEP B SURFACE AG NON REACTIVE HEP B CORE AB,TOTAL NON REACTIVE HEP B SURFACE ANTIBODY <0.35 IV HEPATITIS C REACTIVE (A) HEPATITIS INTERP Current or past HAV infection and current or past HCV infection. No sero logic evidence of HBV infection or vaccination. POCT glucose [[id number]] (Abnormal) Collected: 04/16/19 1518 Updated: 04/16/19 1922 GLUCOSE,POC SCREEN 177 (H) mg/dL HCV RNA quant by PCR [[id number]] Collected: 04/16/19 1458 Specimen: Blood Updated: 04/16/19 1631 Hepatitis B Virus DNA Quant PCR [[id number]] Collected: 04/16/19 1458 Updated: 04/16/19 1631 Sodium [[id number]] Collected: 04/16/19 1434 Specimen: Blood Updated: 04/16/19 1455 SODIUM 135 mmol/L POCT glucose [[id number]] (Abnormal) Collected: 04/16/19 1202 Updated: 04/16/19 1212 GLUCOSE,POC SCREEN 135 (H) mg/dL CBC w/auto diff (reflex to manual) [[id number]] (Abnormal) Collected: 04/16/1945 Specimen: Blood from Blood [...] Estimate ADEQUATE MORPHOLOGY NORMAL Basic metabolic panel [[id number]] (Abnormal) Collected: 04/16/1945 Specimen: Blood from Blood Updated: 04/16/19 0824 SODIUM 135 mmol/L POTASSIUM 4.7 mmol/L CHLORIDE 107 mmol/L CO2 23 mmol/L ANION GAP AGAP 10 mmol/L GLUCOSE 173 (H) mg/dL BUN 63 (H) mg/dL CREATININE 2.42 (H) mg/dL BUN/CREAT 26 CALCIUM 7.1 (L) mg/dL EGFR 21 (L) mL/min/1.73m2 Vancomycin,Random [[id number]] Collected: 04/16/19744 Specimen: Blood from Blood Updated: 04/16/19823 VANCOMYCIN,RANDOM 15.9 ug/mL Blood Culture Set 2 [[id number]] (Abnormal) (Susceptibility) Collected: 04/13/192023 Specimen: Blood from [...] TIME TO DETECTION: 0.84 DAYS POCT glucose [[id number]] (Abnormal) Collected: 04/15/19 1303 Updated: 04/16/19 0643 GLUCOSE,POC SCREEN 169 (H) mg/dL POCT glucose [[id number]] (Abnormal) Collected: 04/15/19 1130 Updated: 04/16/19 0643 GLUCOSE,POC SCREEN 153 (H) mg/dL POCT glucose [[id number]] (Abnormal) Collected: 04/15/19 0856 Updated: 04/16/19 0643 GLUCOSE,POC SCREEN 127 (H) mg/dL POCT glucose [[id number]] (Abnormal) Collected: 04/16/19 0542 Updated: 04/16/19 0636 GLUCOSE,POC SCREEN 208 (H) mg/dL POCT glucose [[id number]] (Abnormal) Collected: 04/15/19 210 Updated: 04/16/19 0636 GLUCOSE,POC SCREEN 284 (H) mg/dL Sodium [[id number]] (Abnormal) Collected: 04/16/19 0249 Specimen: Blood from Blood Updated: 04/16/19313 SODIUM 133 (L) mmol/L Sodium [[id number]] (Abnormal) Collected: 07/28/19 2025 Specimen: Blood Updated: 04/15/192054 SODIUM 133 (L) mmol/L Sodium [[id number]] (Abnormal) Collected: 04/15/19 1130 Specimen: Blood Updated: 04/15/19 1147 SODIUM 133 (L) mmol/L Wound culture [[id number]] (Abnormal) Collected: 04/13/191923 Specimen: Wound from Foot Updated: 04/15/19 1017 Specimen Description FOOT CULTURE 2+ BETA HEMOLYTIC GROUP G STREPTOCOCCUS (A) BETA STREP ORGANISMS ARE PREDICTABLY SUSCEPTIBLE TO PENICILLIN AND CEPHALOSPORINS 2+ MIXED GRAM POSITIVE AND GRAM NEGATIVE RADHA NO FURTHER WORKUP POCT glucose [[id number]] (Abnormal) Collected: 04/15/19623 Updated: 04/15/19 0906 GLUCOSE,POC SCREEN 121 (H) mg/dL POCT glucose [[id number]] (Abnormal) Collected: 04/15/19418 Updated: 04/15/19 0906 GLUCOSE,POC SCREEN 110 (H) mg/dL POCT glucose [[id number]] (Abnormal) Collected: 04/15/19416 Updated: 04/15/19 0906 GLUCOSE,POC SCREEN 57 (L) mg/dL POCT glucose [[id number]] (Abnormal) Collected: 04/15/19212 Updated: 04/15/19 0906 GLUCOSE,POC SCREEN 134 (H) mg/dL POCT glucose [[id number]] (Abnormal) Collected: 04/15/19 000 Updated: 04/15/19 0906 GLUCOSE,POC SCREEN 113 (H) mg/dL POCT glucose [[id number]] (Abnormal) Collected: 04/14/192205 Updated: 04/15/19 0905 GLUCOSE,POC SCREEN 124 (H) mg/dL POCT glucose [[id number]] (Abnormal) Collected: 04/14/192010 Updated: 04/15/19 0905 GLUCOSE,POC SCREEN 119 (H) mg/dL Blood Culture Set 1 [[id number]] Collected: 04/13/191921 Specimen: Blood from Blood Line Draw Updated: 04/15/19722 Specimen Description BLOOD, LINE DRAW SPECIAL REQUESTS CENTRAL CULTURE NO GROWTH 2 DAYS Prepare RBC (type and crossmatch) (Blood Bank) [[id number]] Collected: 04/14/19720 Specimen: Blood Updated: 04/15/19 0644 ARM BAND NUMBER [id number] ABO/RH(D) O POSITIVE ANTIBODY SCREEN NEGATIVE UNIT NUMBER [id number] BLOOD COMPONENT TYPE LEUKODEPLETED PC UNIT DIVISION 00 STATUS OF UNIT ISSUED,FINAL TRANSFUSION STATUS OK TO TRANSFUSE CROSSMATCH RESULT COMPATIBLE UNIT NUMBER [id number] BLOOD COMPONENT TYPE LEUKODEPLETED PC,A UNIT DIVISION 00 STATUS OF UNIT ISSUED,FINAL TRANSFUSION STATUS OK TO TRANSFUSE CROSSMATCH RESULT -- COMPATIBLE [place] [facility] [place] [place] [address] UNIT NUMBER [id number] BLOOD COMPONENT TYPE LEUKODEPLETED PC UNIT DIVISION 00 STATUS OF UNIT ISSUED,FINAL TRANSFUSION STATUS OK TO TRANSFUSE CROSSMATCH RESULT COMPATIBLE Prepare Plasma (Blood Bank) [[id number]] Collected: 04/14/19 1430 Updated: 04/15/19 06 Additional comment: ORDER RECEIVED IN BLOOD BANK. UNIT NUMBER [id number] BLOOD COMPONENT TYPE PLASMA,THAWED 5 DAY UNIT DIVISION 00 STATUS OF UNIT ISSUED,FINAL TRANSFUSION STATUS -- OK TO TRANSFUSE [place] [facility] [place] [place] [address] CBC w/auto diff (reflex to manual) [[id number]] (Abnormal) Collected: 04/15/19 0208 Specimen: Blood Updated: [...] Absolute 0.54 (H) K/uL MORPHOLOGY 1+ Vancomycin,Random [[id number]] Collected: 04/15/19207 Specimen: Blood Updated: 04/15/19236 VANCOMYCIN,RANDOM 25.6 ug/mL Basic metabolic panel [[id number]] (Abnormal) Collected: 04/15/19207 Specimen: Blood Updated: 04/15/19236 SODIUM 132 (L) mmol/L POTASSIUM 4.7 mmol/L CHLORIDE 102 mmol/L CO2 21 (L) mmol/L ANION GAP AGAP 14 mmol/L GLUCOSE 133 (H) mg/dL BUN 75 (H) mg/dL CREATININE 2.77 (H) mg/dL BUN/CREAT 27 CALCIUM 7.7 (L) mg/dL EGFR 18 (L) mL/min/1.73m2 Magnesium [[id number]] Collected: 04/15/19207 Specimen: Blood Updated: 04/15/19236 MAGNESIUM 2.2 mg/dL Phosphorus [[id number]] Collected: 04/15/19207 Specimen: Blood Updated: 04/15/19236 PHOSPHORUS 4.8 mg/dL Sodium [[id number]] (Abnormal) Collected: 04/14/191943 Specimen: Blood Updated: 04/14/192005 SODIUM 131 (L) mmol/L POCT glucose [[id number]] (Abnormal) Collected: 04/14/19 1055 Updated: 04/14/191940 GLUCOSE,POC SCREEN 130 (H) mg/dL POCT glucose [[id number]] (Abnormal) Collected: 04/14/19 1258 Updated: 04/14/19 194 GLUCOSE,POC SCREEN 103 (H) mg/dL POCT glucose [[id number]] (Abnormal) Collected: 04/14/19 1537 Updated: 04/14/19 194 GLUCOSE,POC SCREEN 128 (H) mg/dL POCT glucose [[id number]] (Abnormal) Collected: 04/14/19 1803 Updated: 04/14/19 194 GLUCOSE,POC SCREEN 133 (H) mg/dL POCT glucose [[id number]] (Abnormal) Collected: 04/14/19 0942 Updated: 04/14/19 194 [...] of : 1970 Performing P timan: [facility] INDICATIONS abnormal ekg CONCLUSIONS 1. 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, with long-term current use of insulin (HCC) Ischemic cardiomyopathy Sepsis (HCC) Gangrene of extremity ([facility]) Hyperkalemia Lactic acidosis Hyponatremia Group G streptococcal infection Skin ulcer of finger, limited to breakdown of skin ([facility]) ASSESSMENT & PLAN Septic shock resolved and [...] 04/17/191702 Date of Service: 04/17/191700 Status: Signed Airplane And Engine Inspector: Char Veliz MD (Physician) [facility] Service: Infectious Diseases Progress Note Hospital Day: [...] April 27 Check HCV RNA Dictation software, [employer], used which may contain error for similar [...] PA-C Service: Vascular Surgery Author Type: Physician Tong Setter - Certified Filed: 04/17/1903 Date of Service: 04/17/19849 Status: Addendum Airplane And Engine Inspector: Anderson Lopez PA-C (Physician Tong Setter - Certified) Related Notes: Original Note by Anderson Lopez PA-C (Physician Tong Setter - Certified) led at 04/17/19 0851 [facility] Service: Vascular Surgery Progress Note Hospital Day: LOS: 4 days Post-Op Day: 3 SUBJECTIVE Patient Summary: The patient is a 49 y.o. female with significant past medical histo ry of CAD, CHF, previous MO, DMII uncontrolled, HTN, HLD, meth induced seizures, s/p left BK A and non healing wounds of right lower extremity who presented to [facility] an d was found to be in septic shock. She was transferred to [facility] ICU on 04/13/2019. She has a h [...] 04/17/1944 Date of Service: 04/17/19642 Status: Signed Airplane And Engine Inspector: Mc Arredondo RN (Registered Nurse) Pt resting comfortably in room. VSS. No c/o nausea or pain this shift. No acute changes from previous assessment. End of shift review complete. Mc Arredondo RN Angie Pennington - 04/16/2019 5:19 PM PDTFormatting of this note might be different from t he original. Progress Notes by Angie Díaz MD at 04/16/19 2051 Author: Angie Díaz MD Service: (none) Author Type: Physician Filed: 04/16/19 9237 Date of Service: 04/16/191718 Status: Signed Airplane And Engine Inspector: Angie Díaz MD (Physician) [facility] Service: Hospitalist Progress Note Hospital Day: LOS: 3 days Post-Op Day: 2 Days Post-Op SUBJECTIVE Patient Summary: From [facility] H&P (04/13): "The patient is a 49 y.o.femalewith significant past medic al history ofMethamphetamine use stopped 8 years ago, Diabetes type 2 on insulin, CKD st age IV, CAD, cardiac stent, CHF, left BKAwho presented to [facility] ER via EMS w ith leg swelling and pain. About 4 weeks ago the patient noticed her right leg forming some blisters that her care management coordinator was managing. The pt stated that her [...] knee and a very foul odor. [facility] to have patient [...] then started on low dose levophed drip. 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 Ischemic cardiomyopathy : WILL MONITOR [...] Date of Service: 04/16/19 135 Status: Signed Airplane And Engine Inspector: Yuli Guerra RN (Registered Nurse) Pt not [...] Date of Service: 04/16/19 1050 Status: Signed Airplane And Engine Inspector: Char Veliz MD (Physician) [facility] Service: Infectious Diseases Progress Note Hospital Day: [...] commands. LABS: MICRO Blood Culture Set 2 [[id number]] (Abnormal) Collected: 04/13/192023 Order Status: Completed Lab [...] Final Method: CELESTINA Blood Culture Set 1 [[id number]] Collected: 04/15/19 1258 Order Status: Sent Lab Status: In process Updated: 04/15/19 165 Specimen: Blood from Blood Line Draw Blood Culture Set 2 [[id number]] Collected: 04/15/19 1255 Order Status: Sent Lab Status: In process Updated: 04/15/19 165 Specimen: Blood from Blood Line Draw Wound culture [[id number]] (Abnormal) Collected: 04/13/191923 Order Status: Completed Lab Status: Final result Updated: 04/15/19 1017 Specimen: Wound from Foot Specimen Description FOOT CULTURE 2+ BETA HEMOLYTIC GROUP G STREPTOCOCCUS (A) BETA STREP ORGANISMS ARE PREDICTABLY SUSCEPTIBLE TO PENICILLIN AND CEPHALOSPORINS 2+ MIXED GRAM POSITIVE AND GRAM NEGATIVE RADHA NO FURTHER WORKUP Blood Culture Set 1 [[id number]] Collected: 04/13/191921 Order Status: Completed Lab Status: Preliminary result Updated: 04/15/19722 Specimen: Blood from Blood Line Draw Specimen Description BLOOD, LINE DRAW SPECIAL REQUESTS CENTRAL CULTURE NO GROWTH 2 DAYS MRSA by PCR [[id number]] Collected: 04/13/191821 Order Status: Completed Lab Status: Final result Updated: 04/13/191937 Specimen: Nasopharyngeal from Nasopharyngeal Culture SOURCE NARES(NOSE) MRSA PCR NEGATIVE Comment: [place] [facility] [place] [place] [address];[place] [address] All labs were reviewed. CBC: Lab Results [...] blood cultures through April 27 Dictation software, [employer], used which may contain error for similar [...] 04/16/19837 Date of Service: 04/16/19837 Status: Signed Airplane And Engine Inspector: Dung Chow RPH (Pharmacist) Vanco random 15.9, will send a 750mg dose to be given today. Anderson Lane PA-C - 04/16/2019 8:18 AM PDT Progress Notes by Anderson Lopez PA-C at 04/16/19817 Author: Anderson Lopez PA-C Service: Vascular Surgery Author Type: Physician Tong Setter - Certified Filed: 04/17/1950 Date of Service: 04/16/19817 Status: Signed Airplane And Engine Inspector: Anderson Lopez PA-C (Physician Tong Setter - Certified) [facility] Service: Vascular Surgery Progress Note Hospital Day: LOS: 3 days Post-Op Day: 2 SUBJECTIVE Patient Summary: The patient is a 49 y.o. female with significant past medical histo ry of CAD, CHF, previous MO, DMII uncontrolled, HTN, HLD, meth induced seizures, s/p left BK A and non healing wounds of right lower extremity who presented to [facility] an d was found to be in septic shock. She was transferred to [facility] ICU on 04/13/2019. She has a h [...] 04/16/19837 Date of Service: 04/16/19805 Status: Addendum Airplane And Engine Inspector: Mari Mcdaniel MD (Physician) Related Notes: Original Note by Mari Mcdaniel MD (Physician) filed at 04/16/19837 [facility] Service: Cardiology Progress Note Name of Research Hydrologist: Mari Mcdaniel MD I have seen the [...] 04/16/191920 Date of Service: 04/16/19706 Status: Signed Airplane And Engine Inspector: Mc Arredondo RN (Registered Nurse) Pt in room. Pt tachycardic, otherwise VSS. Pain controlled with PRN narcotics. Second b ladder scan post noel removal was 523, aware, see orders. End of shift review complete. Mc Arredondo RN Angie Pennington - 04/15/2019 5:25 PM PDTFormatting of this note might be different from t he original. Progress Notes by Angie Díaz MD at 04/15/19 6381 Author: Angie Díaz MD Service: (none) Author Type: Physician Filed: 04/15/19 1728 Date of Service: 04/15/191724 Status: Signed Airplane And Engine Inspector: Angie Díaz MD (Physician) Patient being transferred [...] 04/15/191656 Date of Service: 04/15/191656 Status: Signed Airplane And Engine Inspector: Bibi Pacheco RD (Registered Dietitian) 04/15/19 1214 [...] "fuzzy memory" of last day or two MEDICAL PHYSICS RESEARCHER, but up unt il then was eating per her normal. No recollection of intake or weight changes. Fluid / Beverage Intake Oral Fluids Amount ad andrew Liquid Meal Replacement or Supplement pt accepting of oral nutrition supplement, indicated while po intake is sub-optimal Food Intake Amount of Food poor intake MEDICAL PHYSICS RESEARCHER and prior to surgery yesterday; per pt and RN her intake is improving Type of Food / Meals dysphagia advanced - soft foods only Meal / Snack Pattern pt will order independently Nutrition-Focused Physical Findings Overall Appearance Class III obesity - negative nutrition focused physical exam - acute los s of appetite and poor oral intake for a few days immediately MEDICAL PHYSICS RESEARCHER per pt report. No signifi cant wt [...] no problems swallowing per pt. Please consult SLAT BASKET MAKER MACHINE for eval if concern for aspiration Nerves [...] Notes by Mari Mcdaniel MD at 04/15/19 6611 Author: Mari Mcdaniel MD Service: Cardiology Author Type: Physician Filed: 04/15/19 1120 Date of Service: 04/15/19 1059 Status: Signed Airplane And Engine Inspector: Mari Mcdaniel MD (Physician) [facility] Service: Cardiology Progress Note Name of Research Hydrologist: Mari Mcdaniel MD I have seen the [...] DO, Last Rate: 30 mL/hr at 04/14/19 5135 dextrose 50 % solution 25 mL, 25 [...] BID, REBECCA Escobar, 100 mg at 04/14/19 7304 fenofibrate tablet 160 mg, 160 mg, Oral, [...] Escobar, Stopped at 04/15/19 1017 nystatin (MYCOSTATIN) 413383 units/mL suspension 500,000 Units, 5 mL, Mouth/Throat, [...] Case Management by DENZEL Kirkland at 04/15/19 9408 Author: DENZEL Kirkland Service: (none) Author Type: Hydraulic Repairer Filed: 04/15/19 2342 Date of Service: 04/15/1988 Status: Addendum Airplane And Engine Inspector: DENZEL Kirkland (Hydraulic Repairer) Related Notes: Original Note by DENZEL Kirkland (Hydraulic Repairer) filed at 04/15/19 6012 CM met with pt for discharge planning. Pt is 49 years old and lives with her roommate in a [id number] apt. Pt has 5 stairs at the main entrance. Pt has a tub-shower & shower-katlyn ir. Pt owns a 4 wheel walker and manual wheelchair. Pt uses [facility] for her transportation needs. Pt denied any difficulty obtaining her medications. Pt under went a right AKA on 04/14/19. Pt requested assistance obtaining an electric wheelchair and help g etting into a handicap accessible low-income apt complex in [place] called [facility] CM will continue to monitor physical therapy's recommendations for discharge planning. 04/15/19 0965 Discharge Planning Evaluation Admitting Diagnosis Wet gangrene [...] 04/15/19827 Date of Service: 04/15/19814 Status: Signed Airplane And Engine Inspector: Derrick Cook MD (Physician) [facility] Service: Vascular Surgery Progress Note S/p right [...] 04/15/19737 Date of Service: 04/15/19737 Status: Signed Airplane And Engine Inspector: DEMETRIO Schneider (Occupational Therapist) 04/15/19736 OT Last [...] Antonio at 04/15/19514 Author: REBECCA Antonio Service: Assistant Portfolio Manager Author Type: Advanced Registered Nurse Practitioner Filed: 04/15/1937 Date of Service: 04/15/19514 Status: Addendum Airplane And Engine Inspector: REBECCA Antonio (Advanced Registered Nurse Nereyda) Related Notes: Original Note by REBECCA Antonio (Advanced Registered Nurse Practitionsavanna r) filed at 04/15/1936 [facility] Service: Assistant Portfolio Manager Progress Note Alondrabalwinder Liupatricia Caballero 49 y.o. [...] stent, CHF, left BKA who presented to [facility] ER via EMS with leg swelling and pain. About 4 weeks ago the patient noticed her right leg forming some blisters that her care management coordinator was managing. The pt stated that her [...] then started on low dose levophed drip. [facility] ICU was consulted and pt was then [...] INFUSIONS dextrose dextrose 30 mL/hr at 04/14/19 5996 insulin regular 1 unit/mL 3.8 Units/hr (04/15/19 4357) norepinephrine 5 mcg/min (04/15/19 2850) sodium chloride (IV) 30 mL/hr at 04/14/19 9115 OBJECTIVE VITAL SIGNS Temp: [97 F (36.1 [...] 04/15/19 0500 Gross per 24 hour Intake 94918 ml Output 1285 ml Net 9120 ml [...] metabolic acidosis, sepsis. Pt [facility]alate at [facility]. No EKG changes. Resolved BMP ordered Metabolic [...] home. Endotool started, continue HgA1c 6.6. Consult art educator [facility]/SKIN: Left BKA. Uses prosthesis at home [...] 04/15/19247 Date of Service: 04/15/19247 Status: Signed Airplane And Engine Inspector: Nallely Brooks RPH (Pharmacist) Clinical Pharmacy Note: [...] Case Management by DENZEL Kirkland at 04/14/19 1747 Author: DENZEL Kirkland Service: (none) Author Type: Hydraulic Repairer Filed: 04/14/19 133 Date of Service: 04/14/19 1337 Status: Signed Airplane And Engine Inspector: DENZEL Kirkland (Hydraulic Repairer) CM attempted to meet with pt but [...] Date of Service: 04/14/19 1130 Status: Signed Airplane And Engine Inspector: Kym Wilson PT (Physical Therapist) 04/14/19 1130 [...] 04/14/19929 Date of Service: 04/14/19929 Status: Signed Airplane And Engine Inspector: Madelaine Gallego RPH (Pharmacist) Vancomycin Monitoring Day 2 Serum creatinine: 3.6 mg/dL (H) 04/14/19408 Estimated creatinine clearance: 28 mL/min (A) WBC = 57.62 K/uL SCr still elevated, no plan for dialysis. Plan per protocol: Continue current ERICK protocol Daily random level in the AM 04/14/2019 9:29 AM Pharmacist: Madelaine Gallego ari Miguel ra, MD - 04/14/2019 6:04 AM PDT Progress Notes by Mair Mcdaniel MD at 04/14/19603 Author: Mari Mcdaniel MD Service: Cardiology Author Type: Physician Filed: 04/14/19614 Date of Service: 04/14/19603 Status: Signed Airplane And Engine Inspector: Mari Mcdaniel MD (Physician) [facility] Service: Cardiology Progress Note Name of Research Hydrologist: Mari Mcdaniel MD I have seen the [...] 04/13/192226, 5 mcg/min at 2226 nystatin (MYCOSTATIN) 403485 units/mL suspension 500,000 Units, 5 mL, Mouth/Throat, [...] 04/14/19444 Date of Service: 04/14/19444 Status: Signed Airplane And Engine Inspector: Nallely Brooks RPH (Pharmacist) Clinical Pharmacy Note: [...] Renal Failure Protocol. Plan First dose of [id number] 1000 mg IV was given between 1300 [...] 04/14/19146 Date of Service: 04/14/19146 Status: Signed Airplane And Engine Inspector: Nallely Brooks RPH (Pharmacist) Clinical Pharmacy Note: [...] Nallely Brooks PharmD 04/14/2019 1:45 AM Bryant Higgins ARNP - 04/14/2019 1:37 AM PDTFormatting of this note might be different from the o riginal. Progress Notes by REBECCA Antonio at 04/14/19136 Author: REBECCA Antonio Service: Assistant Portfolio Manager Author Type: Advanced Registered Nurse Practitioner Filed: 04/14/19 07 Date of Service: 04/14/19136 Status: Addendum Airplane And Engine Inspector: REBECCA Antonio (Advanced Registered Nurse Nereyda) Related Notes: Original Note by REBECCA Antonio (Advanced Registered Nurse Arron jones) filed at 04/14/19 0654 [facility] Service: Assistant Portfolio Manager Progress Note [facility] 49 [facility] [...] stent, CHF, left BKA who presented to [facility] ER via EMS with leg swelling and pain. About 4 weeks ago the patient noticed her right leg forming some blisters that her care management coordinator was managing. The pt stated that her [...] then started on low dose levophed drip. [facility] ICU was consulted and pt was then [...] metabolic acidosis, sepsis. Pt received kayexalate at [facility]. No EKG changes, Monitor BMP ordered Metabolic [...] started, continue HgA1c ordered in am. Consult art educator [facility]/SKIN: Left BKA. Uses prosthesis at home to ambulate Gangrenous infection right LE. Likely due to uncontrolled Diabetes. Pt has loss of sensa tion to foot. Multiples areas of necrotic tissue, purulent drainage, wound appears to extend to bone. Will likely need Vascular surgery consult for possible amputation. Abx started. Unable to obtain MRI of LE, Pt has ICD [employer] model 1010 which is not MRI [...] | | | | | | [place], [place] | | | | | | [...] [address] | | | | | | [facility] [address] | | | | | | [phone] | | | | | | | | +--------+ + + + + | 11/25/ | Office | Nephrology | Kei Arthur MD | | | 2019 | Visit | | [address] [facility] | | | | | | [address] | | | | | | [address] | | | | | | | [...] | | | Fingerstick | performed at [facility];88 | | LAB | | | | Roxanne Sanabria;[place] | | | | | | [address] | | | | + + + [...] | | | | performed at [facility];[address] | | | | | | [address];[place], [place] | | | | | | [address] | | | | + + + [...] | | | Fingerstick | performed at [facility] | | LAB | | | | Roxanne Sanabria;[place], [place] | | | | | | [address] | | | | + + + [...] | | | Fingerstick | performed at [facility];888 | | LAB | | | | Roxanne Sanabria;[place] | | | | | | [address] | | | | + + + [...] | | | Fingerstick | performed at [facility];888 | | LAB | | | | Roxanne Sanabria;[place] | | | | | | [address] | | | | + + + [...] | | | Fingerstick | performed at [facility];[address] | | LAB | | | | [address];[place], [place] | | | | | | [address] | | | | + + + [...] | | | Fingerstick | performed at [facility];888 | | LAB | | | | [address] Sanab[address];[place], [place] | | | | | | [address] | | | | + + + [...] | | | Fingerstick | performed at [facility];[address] | | LAB | | | | [address];[place], [place] | | | | | | [address] | | | | + + + [...] LAB | | | | performed at [facility], [address] | | | | | | [place], | | | | | | [place] [address] | | | | | | | [...] | | | | | | MDRD IDDE traceable | | | | | | equation.Testing | | | | | | performed at [facility], [address] | | | | | | [place], | | | | | | [place] [address] | | | | + + + [...] | | | Fingerstick | performed at [facility];888 | | LAB | | | | Roxanne Sanabria;[place] | | | | | | [address] | | | | + + + [...] | | | Fingerstick | performed at [facility];888 | | LAB | | | | Roxanne Sanab[address];[place], [place] | | | | | | [address] | | | | + + + [...] | | | Fingerstick | performed at [facility];888 | | LAB | | | | Roxanne Sanabria;[place] | | | | | | [address] | | | | + + + [...] prone stress imaging. Bilateral | | | [id number] amputee. Difficulty moving. RADIOPHARMACEUTICALS: | | | [...] perform prone stress imaging. | | Bilateral nwvds-ynk-[id number] amputee. Difficulty moving. | | RADIOPHARMACEUTICALS: | [...] | | | | | At | [facility] | + + + + + + | Glucose, | 92Comment: Testing | 65 - 99 mg/dL | EXTERNAL | | | Fingerstick | performed at [facility];888 | | LAB | | | | Roxanne Sanabria;[place], [place] | | | | | | [address] | | | | + + + [...] LAB | | | | performed at [facility], [address] | | | | | | Alex [address], | | | | | | [place] [address] | | | | | | | [...] | | | | performed at [facility];888 | | LAB | | | | Roxanne Sanabria;[place] | | | | | | [address] | | | | + + + [...] | | | | | | MDRD IDDE traceable | | | | | | equation.Testing | | | | | | performed at [facility] | | | | | | [facility];[place], [place] | | | | | | [address] | | | | + + + [...] | | | Fingerstick | performed at [facility];888 | | LAB | | | | Roxanne Sanabria;[place] | | | | | | [address] | | | | + + + [...] | | | Fingerstick | performed at [facility];[address] | | LAB | | | | [address];[place], [place] | | | | | | [address] | | | | + + + [...] | | | Fingerstick | performed at [facility];888 | | LAB | | | | [address];[place], [place] | | | | | | [address] | | | | + + + [...] | | | Fingerstick | performed at [facility];888 | | LAB | | | | Roxanne Sanab[address];[place], [place] | | | | | | [address] | | | | + + + [...] | | | Fingerstick | performed at [facility];888 | | LAB | | | | Roxanne Sanabria;[place] | | | | | | [address] | | | | + + + [...] | | | Fingerstick | performed at [facility];888 | | LAB | | | | Roxanne Sanabria;[place] | | | | | | [address] | | | | + + + [...] | | | Fingerstick | performed at [facility];888 | | LAB | | | | [address]oxanne Sanab[address];[place], [place] | | | | | | [address] | | | | + + + [...] LAB | | | | performed at [facility], [address] | | | | | | [address], | | | | | | [place] [address] | | | | | | | [...] | | | | performed at [facility];888 | | LAB | | | | [address] [facility];[place] | | | | | | [address] | | | | + + + [...] | | | | | | MDRD IDDE traceable | | | | | | equation.Testing | | | | | | performed at [facility] | | | | | | [facility];[place], [place] | | | | | | [address] | | | | + + + [...] | | | Fingerstick | performed at [facility];[address] | | LAB | | | | [address];[place], [place] | | | | | | [address] | | | | + + + [...] | | | Fingerstick | performed at [facility];888 | | LAB | | | | [address] Sanab[address];[place], [place] | | | | | | [address] | | | | + + + [...] | | | Fingerstick | performed at [facility];[address] | | LAB | | | [address];[place], [place] | | | | | | [address] | | | | + + + [...] | | | Fingerstick | performed at [facility];888 | | LAB | | | | Roxanne Sanabria;[place] | | | | | | [address] | | | | + + + [...] | | | Fingerstick | performed at [facility];888 | | LAB | | | | [address];[place], [place] | | | | | | [address] | | | | + + + [...] | | | Fingerstick | performed at [facility];888 | | LAB | | | | Roxanne Sanabria;[place] | | | | | | [address] | | | | + + + [...] LAB | | | | performed at [facility], [address] | | | | | | [address], | | | | | | [place] [address] | | | | | | | [...] | | | | performed at [facility];888 | | LAB | | | | Roxanne Sanabria;[place] | | | | | | [address] | | | | + + + [...] | | | | | | MDRD IDDE traceable | | | | | | equation.Testing | | | | | | performed at [facility] | | | | | | [facility];[place], [place] | | | | | | [address] | | | | + + + [...] | | | Fingerstick | performed at [facility];888 | | LAB | | | | Roxanne Sanabria;[place] | | | | | | [address] | | | | + + + [...] at | | | | | | [facility];[address] [facility] | | | | | | [facility];[place] [address] | | | | + + + [...] | | | Fingerstick | performed at [facility];888 | | LAB | | | | Roxanne Sanabria;[place] | | | | | | [address] | | | | + + + [...] at | | | | | | [facility];[address] [place] [address] | | | | | | [facility];[place] [address] | | | | + + + [...] | | | Fingerstick | performed at [facility];888 | | LAB | | | | Roxanne Sanab[address];[place], [place] | | | | | | [address] | | | | + + + [...] at | | | | | | [facility];[address] [place] [address] | | | | | | [facility];[place] [address] | | | | + + + [...] | | | Fingerstick | performed at [facility];888 | | LAB | | | | Roxanne Sanabria;[place] | | | | | | [address] | | | | + + + [...] | | | Fingerstick | performed at [facility];888 | | LAB | | | | [place] Sanabria;[place] | | | | | | [address] | | | | + + + [...] at | | | | | | [facility];[address] [place] [address] | | | | | | Elly;[place] [address] | | | | + + + [...] | | | | g performed at [facility], [address] | | | [address] | [address] [place], | | | | | | [place] [address] | | | | | |1+ | | | | | |MACRO | | | | | |Testing performed at [facility], [address] [place], [place] [address] | | | | | | | [...] EXTERNAL | | | | performed at [facility], [address] | | LAB | | | | [address], | | | | | | [place] [address] | | | | + + + [...] EXTERNAL | | | | performed at [facility], [address] | | LAB | | | | [address], | | | | | | [place] [address] | | | | + + + [...] | | | | performed at [facility];888 | | LAB | | | | [address];[place], [place] | | | | | | [address] | | | | + + + [...] | | | | | performed at [facility], [address] | | | | | | [place], | | | | | | [place] [address] | | | | + + + [...] at | | | | | | [facility];[address] [place] [address] | | | | | | [facility];[place] [address] | | | | + + + [...] | | | | | | VINOD LUCIANO (208) on | | | | | | 04/21/2019 11:30:23 AM | | | | + + + + + + + + | Specimen | + + | | + + + + + | Narrative | Performed At | + + + | Historically converted procedure from [facility] | EXTERNAL LAB | + + + [...] | | | Fingerstick | performed at [facility];888 | | LAB | | | | Roxanne Sanab[address];[place], [place] | | | | | | [address] | | | | + + + [...] | | | Fingerstick | performed at [facility];[address] | | LAB | | | [address];[place], [place] | | | | | | [address] | | | | + + + [...] | | | | performed at [facility];888 | mmol/L | LAB | | | | Roxanne Sanabria;[place] | | | | | | [address] | | | | + + + [...] | | | Fingerstick | performed at [facility];888 | | LAB | | | | Roxanne Sanabria;[place], [place] | | | | | | [address] | | | | + + + [...] | | | | performed at [facility];888 | mmol/L | LAB | | | | Roxanne Sanabria;[place] | | | | | | [address] | | | | + + + [...] | | | Fingerstick | performed at [facility];888 | | LAB | | | | Roxanne Sanabria;[place], [place] | | | | | | [address] | | | | + + + [...] | | | | | performed at [facility], [address] | | | | | | [address], | | | | | | [place] [address] | | | | + + + [...] | | | | | performed at [facility], [address] | | | | | | Alex [address], | | | | | | [place] [address] | | | | + + + [...] | | | Fingerstick | performed at [facility];888 | | LAB | | | | Roxanne Sanabria;[place] | | | | | | [address] | | | | + + + [...] | | | Fingerstick | performed at [facility];888 | | LAB | | | | [address] [facility];[place], [place] | | | | | | [address] | | | | + + + [...] | | | | | [address], [facility] | | | | | | [address] | | | | + + + [...] | | | | performed at [facility];888 | mmol/L | LAB | | | | Roxanne Sanabria;[place], [place] | | | | | | [address] | | | | + + + [...] | | | Fingerstick | performed at [facility] | | LAB | | | | Roxanne Sanabria;[place], [place] | | | | | | [address] | | | | + + + [...] EXTERNAL | | | | performed at [facility], [address] | | LAB | | | | [place], | | | | | | [place] [address] | | | | + + + [...] | | | | performed at [facility];888 | mmol/L | LAB | | | | Roxanne Sanabria;[place], [place] | | | | | | [address] | | | | + + + [...] | | | Fingerstick | performed at [facility];[address] | | LAB | | | | [address];[place], [place] | | | | | | [address] | | | | + + + [...] | | | Fingerstick | performed at [facility];[address] | | LAB | | | | Roxanne Sanabria;[place] | | | | | | [address] | | | | + + + [...] | | | | TCL, [address] [facility] | | | | | | [place] | | | | | | [address] | | | | + + + [...] | | | | | performed at [facility], [address] | | | | | | [place], | | | | | | [place] [address] | | | | + + + [...] | | | Fingerstick | performed at [facility];888 | | LAB | | | | Roxanne Sanabria;[place], [place] | | | | | | [address] | | | | + + + [...] | | | | performed at [facility];888 | mmol/L | LAB | | | | Roxanne Sanabria;[place] | | | | | | [address] | | | | + + + [...] | | | | | performed at [facility], [address] | | | | | | [place], | | | | | | [place] [address] | | | | + + + [...] | | | Fingerstick | performed at [facility];888 | | LAB | | | | Roxanne Sanabria;[place] | | | | | | [address] | | | | + + + [...] | | | | performed at [facility];888 | mmol/L | LAB | | | | R[place]anne [place]ria;[place] | | | | | | [address] | | | | + + + [...] | | | Fingerstick | performed at [facility];[address] | | LAB | | | [address];[place], [place] | | | | | | [address] | | | | + + + [...] | | | | performed at [facility];888 | mmol/L | LAB | | | | Roxanne Sanabria;[place] | | | | | | [address] | | | | + + + [...] | | | Fingerstick | performed at [facility];888 | | LAB | | | | Roxanne Sanabria;[place], [place] | | | | | | [address] | | | | + + + [...] | | | | | | at [facility], [address] | | | | | | [place], | | | | | | [place] [address] | | | | | |Testing performed at [facility], [address] [place], [place] [address] | | | | | | | [...] | | | | performed at [facility];[address] | | | | | | [address];[place], [place] | | | | | | [address] | | | | + + + [...] | | | Fingerstick | performed at [facility];[address] | | LAB | | | | Roxanne Sanabria;[place], [place] | | | | | | [address] | | | | + + + [...] | | | | | [place] [address] | | | | + + + [...] | | | | | performed at [facility], [address] | | | | | | [address] [place], | | | | | | [place] [address] | | | | + + + [...] | | | | | performed at [email or web address], | | | | | | [address], [address], | | | | | | [facility] [address] | | | | + + + [...] | | | | TCL, [address] [facility] [place] | | | | | | [place] | | | | | | [address] | | | | + + + [...] EXTERNAL | | | | performed at [facility], [address] | | LAB | | | | [place], | | | | | | [place] [address] | | | | + + + [...] | | LAB | | | | [facility], [address] | | | | | | [place] | | | | | | [address] | | | | + + + [...] [place] | | | | | | [address] | | | | + + + [...] | | | Fingerstick | performed at [facility];[address] | | LAB | | | | [address];[place], [place] | | | | | | [address] | | | | + + + [...] | | | | performed at [facility];888 | mmol/L | LAB | | | | Roxanne Sanabria;[place], [place] | | | | | | [address] | | | | + + + [...] | | | Fingerstick | performed at [facility];888 | | LAB | | | | Roxanne [address]abria;[place], [place] | | | | | | [address] | | | | + + + [...] | | | | performed at [facility];888 | mmol/L | LAB | | | | [address];[place], [place] | | | | | | [address] | | | | + + + [...] | | | Fingerstick | performed at [facility];[address] | | LAB | | | [address];[place], [place] | | | | | | [address] | | | | + + + [...] | | | | BY:MAYE Rodas ON [id number] | | | | | | AT [...] | | | | | at [facility];[address];[place] [address] | | | | | |NORMAL PLT MORPH | | | | | |Testing performed at [facility];[address];[place] [address] | | | | | | | [...] | | | | performed at [facility] | | | | | | [facility];[place], [place] | | | | | | [address] | | | | + + + [...] | | | Fingerstick | performed at [facility];[address] | | LAB | | | [address];[place], [place] | | | | | | [address] | | | | + + + [...] | | | | performed at [facility];888 | mmol/L | LAB | | | | Roxanne [place] | | | | | | [address] | | | | + + + [...] | | | Fingerstick | performed at [facility] | | LAB | | | | Roxanne [address];[place], [place] | | | | | | [address] | | | | + + + [...] | | | | performed at [facility];888 | mmol/L | LAB | | | | [address];[place], [place] | | | | | | [address] | | | | + + + [...] | | | Fingerstick | performed at [facility];[address] | | LAB | | | [address];[place], [place] | | | | | | [address] | | | | + + + [...] | | | | | | by [employer], [address] [place] [address] | | | | | | [facility] | | | | | | [address] | | | | + + + [...] at | | | | | | [facility], [address] [facility] [place] | | | | | | [place] | | | | | | [address] | | | | + + + [...] | | | | | performed by [employer], | | | | | | [address], | | | | | | [facility] [address] | | | | + + + [...] | | | | performed at [facility];888 | mmol/L | LAB | | | | [place]anne [place] | | | | | | [address] | | | | + + + [...] | | | Fingerstick | performed at [facility];888 | | LAB | | | | [address];[place], [place] | | | | | | [address] | | | | + + + [...] | | | MAYE [place] 7RP RN @08 BY | | | | | | [...] | | | Morphology | performed at [facility];888 | | LAB | | | | [place] | | | | | | [address] | | | | + + + [...] | | | Random | performed at [facility];888 | | LAB | | | | [address] [facility];[place], [place] | | | | | | [address] | | | | + + + [...] | | | | performed at [facility];[address] | | | | | | [facility];[place], [place] | | | | | | [address] | | | | + + + [...] | | | Fingerstick | performed at [facility];888 | | LAB | | | | [place]anne [place] | | | | | | [address] | | | | + + + [...] | | | | performed at [facility];888 | mmol/L | LAB | | | | [address];[place], [place] | | | | | | [address] | | | | + + + [...] | | | Fingerstick | performed at [facility];88 | | LAB | | | | [address];[place], [place] | | | | | | [address] | | | | + + + [...] | | | | performed at [facility];888 | mmol/L | LAB | | | | [address];[place], [place] | | | | | | [address] | | | | + + + [...] | | | Fingerstick | performed at [facility];888 | | LAB | | | | [address];[place], [place] | | | | | | [address] | | | | + + + [...] | | | Fingerstick | performed at [facility];888 | | LAB | | | | [address];[place], [place] | | | | | | [address] | | | | + + + [...] | | | | performed at [facility];888 | mmol/L | LAB | | | | Roxanne Sanabria;[place] | | | | | | [address] | | | | + + + [...] | | | Fingerstick | performed at [facility];888 | | LAB | | | | [address];[place], [place] | | | | | | [address] | | | | + + + [...] | | | Fingerstick | performed at [facility];888 | | LAB | | | | Roxanne Sanabria;[place] | | | | | | [address] | | | | + + + [...] | | | Fingerstick | performed at [facility];888 | | LAB | | | | [address];[place], [place] | | | | | | [address] | | | | + + + [...] | | | Fingerstick | performed at [facility];888 | | LAB | | | | [place]anne [place] | | | | | | [address] | | | | + + + [...] | | | Fingerstick | performed at [facility];888 | | LAB | | | | [address]anne [address];[place], [place] | | | | | | [address] | | | | + + + [...] 0425 | | | | | | [id number] | | | | | | [...] | | | | | | at [facility], [address] | | | | | | [place], | | | | | | [place] [address] | | | | | |Testing performed at [facility], [address] [place] [address] | | | | | | | [...] | | | | performed at [facility];888 | | LAB | | | | R[address]anne [address]ab[address];[place], [place] | | | | | | [address] | | | | + + + [...] | | | | performed at [facility] | | LAB | | | | Roxanne Sanabria;[place] | | | | | | [address] | | | | + + + [...] | | | Random | performed at [facility] | | LAB | | | | Roxanne Corey;[place], [place] | | | | | | [address] | | | | + + + [...] | | | | performed at [facility];[address] | | | | | | [facility];[place], [place] | | | | | | [address] | | | | + + + [...] | | | Fingerstick | performed at [facility];[address] | | LAB | | | | [address];[place] | | | | | | [address] | | | | + + + [...] | | | Fingerstick | performed at [facility];[address] | | LAB | | | | [address];[place] | | | | | | [address] | | | | + + + [...] | | | Fingerstick | performed at [facility];[address] | | LAB | | | [address];[place], [place] | | | | | | [address] | | | | + + + [...] | | | | performed at [facility];[address] | mmol/L | LAB | | | | [address]anne San[address]ria;[place] | | | | | | [address] | | | | + + + [...] | | | Fingerstick | performed at [facility];[address] | | LAB | | | | [address]ria;[place] | | | | | | [address] | | | | + + + [...] | | | Fingerstick | performed at [facility] | | LAB | | | | Roxanne Sanabria;[place] | | | | | | [address] | | | | + + + [...] | | POC | performed at [facility];[address] | | LAB | | | | [address]ria;[place] | | | | | | [address] | | | | + + + [...] | | | | performed at [facility];[address] | mmol/L | LAB | | | | [address];[place], [place] | | | | | | [address] | | | | + + + [...] | | | | performed at [facility];[address] | mmol/L | LAB | | | | [address] San[address]ria;[place] | | | | | | [address] | | | | + + + [...] | | | | performed at [facility];[address] | | LAB | | | | [address];[place], [place] | | | | | | [address] | | | | + + + [...] | | | | performed at [facility];[address] | | LAB | | | | [address];[place] | | | | | | [address] | | | | + + + [...] | | | | performed at [facility];[address] | | LAB | | | | [address];[place], [place] | | | | | | [address] | | | | + + + [...] shows dark brown, soft fifth metatarsal bone. [employer] | | | sections submitted in three cassettes. Tibialis posterior artery is | | | inked. Cassette A2 is left for decalcification in [employer] prior | | | processing. Cassette summary: (A1) Skin surgical margin, shave, | | | popliteal artery, tibialis posterior artery, contracts representative sections | | | (A2) Mummified foot skin, fifth metatarsal bone, contracts representative | | | sections (A3) Skin and subcutaneous tissue from posterior, mid leg | | | and tibialis anterior artery, contracts representative sections. JS (under the | | [...] | | | component was performed by [facility], [address] [place] [address], | | | [place] [address] (Welder/Fitter: Ericka Ng MD; CLIA# | | | [id number]). Professional interpretation was performed by [facility] | | | [facility], [address], | | | [place] [address] (Welder/Fitter: Jeramy Guo M.D.; CLIA#: | | | [id number]). Diagnostician: Morteza Patrick DO Pathologist | | [...] | | | Fingerstick | performed at [facility];888 | | LAB | | | | [address] | | | | | | [address] | | | | + + + [...] | | | | performed at [facility] | | LAB | | | | Roxanne Sanabria;[place] | | | | | | [address] | | | | + + + [...] | | | Fingerstick | performed at [facility];888 | | LAB | | | | [address]anne Sanabria;[place], [place] | | | | | | [address] | | | | + + + [...] | | | | performed at [facility];888 | mmol/L | LAB | | | | R[place]anne Sanabria;[place] | | | | | | [address] | | | | + + + [...] | | | Fingerstick | performed at [facility];888 | | LAB | | | | [address]anne Sanabria;[place], [place] | | | | | | [address] | | | | + + + [...] | | | Fingerstick | performed at [facility];888 | | LAB | | | | Roxanne Sanabria;[place] | | | | | | [address] | | | | + + + [...] TR maxP.75 mmHg TR Vmax: 2.63 m/s Steamtable Worker: | | | MW Authenticated by: Mari Weissbuffalo Report Date/Time: 04-15-2019 | | | 10:55:13 | | + + + + + | Procedure Note | + + | Florencio, Rad Conversion - 05/01/2019 6:13 PM PDT Patient Name: Jeovanny Caballero of | | : 1970 Performing Physician: Mari | | [facility] INDICATIONS------ | | -----abnormal ekg CONCLUSIONS 1. [...] mlLAESV Index (A-L): 45.68 ml/m2LAAs A2C: 26.90 [id number] A-L A2C: 88.69 | | mlLALs A2C: 6.92 cmLAAs A4C: 33.33 [id number] A-L A4C: 136.96 mlLALs A4C: 6.88 | | cmTAPSE: 2.14 cmAV maxP.27 mmHgAV meanP.11 mmHgAV Vmax: 1.60 m/Jordan | | Vmean: 1.16 m/Jordan VTI: 31.46 cmAVA Vmax: 2.22 cm2AVA (VTI): 2.34 xq3TUQO Vmax: | | 0.00 cm2/m2AVAI (VTI): 0.00 cm2/m2LVCI Dopp: 2.70 l/ctus1WHUR Dopp: 6.54 l/minHR: | | 88.69 BPMLVOT [...] 1.11 m/sMV VTI: 42.30 cmMVA (VTI): 1.74 ka3Svjapu e': 0.03 | | m/sSeptal E/e': 36.41Lateral e': 0.05 m/sLateral E/e': 25.65HR: 90.60 BPMPV | | maxP.38 mmHgPV meanP.76 mmHgPV Vmax: 0.91 m/sPV Vmean: 0.63 m/sPV VTI: | | 19.84 cmRAP: 8 mmHgRV S': 0.08 m/sRVSP: 35.75 mmHgTR maxP.75 mmHgTR Vmax: | | 2.63 m/s Steamtable Worker: FLEXAuthenticated by: Mari Valero Date/Time: 04-15-2019 | [...] |TR Vmax: 2.63 m/s | | | |Steamtable Worker: MW | |Authenticated by: Mari Mcdaniel | [...] | | | | performed at [facility];888 | mmol/L | LAB | | | | Roxanne Sanarbia;[place], [place] | | | | | | [address] | | | | + + + [...] | | | | performed at [facility];888 | mmol/L | LAB | | | | Roxanne Sanabria;[place], [place] | | | | | | [address] | | | | + + + [...] | | | Fingerstick | performed at [facility];[address] | | LAB | | | | [address];[place], [place] | | | | | | [address] | | | | + + + [...] | | | Fingerstick | performed at [facility];888 | | LAB | | | | R[place] Sanabria;[place] | | | | | | [address] | | | | + + + [...] | | | Fingerstick | performed at [facility];888 | | LAB | | | | [address];[place], [place] | | | | | | [address] | | | | + + + [...] | | | Patient | performed at [facility];888 | | LAB | | | | Roxanne Sanabria;[place] | | | | | | [address] | | | | + + + [...] | | | | performed at [facility] | | | | | | Roxanne Sanabria;[place] | | | | | | [address] | | | | + + + [...] 0530 | | | | | | [id number] SM | | | | | | [...] | | | | | | at [facility], [address] | | | | | | [place], | | | | | | [place] [address] | | | | | |Testing performed at [facility], [address], [place] [address] | | | | | | | [...] EXTERNAL | | | | performed at [facility], [address] | | LAB | | | | [address], | | | | | | [place] [address] | | | | + + + [...] EXTERNAL | | | | performed at [facility], [address] | | LAB | | | | [address], | | | | | | [place] [address] | | | | + + + [...] | | | | | performed at [facility], [address] | | | | | | [address], | | | | | | [place] [address] | | | | + + + [...] | | | | | | MDRD IDDE traceable | | | | | | equation.Testing | | | | | | performed at [facility], [address] | | | | | | [place], | | | | | | [place] [address] | | | | + + + [...] | | | Fingerstick | performed at [facility];888 | | LAB | | | | [address]abria;[place], [place] | | | | | | [address] | | | | + + + [...] | | | Fingerstick | performed at [facility];[address] | | LAB | | | | [address];[place], [place] | | | | | | [address] | | | | + + + [...] | | | | performed at [facility];888 | mmol/L | LAB | | | | [address];[place], [place] | | | | | | [address] | | | | + + + [...] | | | Fingerstick | performed at [facility];888 | | LAB | | | | [address]ria;[place], [place] | | | | | | [address] | | | | + + + [...] | | | Fingerstick | performed at [facility];888 | | LAB | | | | [address]abria;[place], [place] | | | | | | [address] | | | | + + + [...] | | | | performed at [facility];[address] | | | | | | [facility];[place], [place] | | | | | | [address] | | | | + + + [...] | | | Fingerstick | performed at [facility];888 | | LAB | | | | Roxanne Sanabria;[place] | | | | | | [address] | | | | + + + [...] | | | Fingerstick | performed at [facility];[address] | | LAB | | | | [address];[place], [place] | | | | | | [address] | | | | + + + [...] | | LAB | | | | [facility] Dee | | | | | | Elly;[place] [address] | | | | + + + [...] | | | | performed at [facility];888 | mmol/L | LAB | | | | [address]abria;[place], [place] | | | | | | [address] | | | | + + + [...] | | | | performed at [facility];888 | | LAB | | | | [address];[place], [place] | | | | | | [address] | | | | + + + [...] | | | Fingerstick | performed at [facility];888 | | LAB | | | | Roxanne Sanabria;[place] | | | | | | [address] | | | | + + + [...] | | LAB | | | | [facility] Roxanne | | | | | | Elly;[place] [address] | | | | + + + [...] | | | | performed at [facility];888 | mmol/L | LAB | | | | [address] Sanabria;[place] | | | | | | [address] | | | | + + + [...] | | | | | at [facility];[address] [place] [address] | | | | | | [facility];[place] [address] | | | | + + + [...] | | | | performed at [facility];[address] | | | | | | [facility];[place], [place] | | | | | | [address] | | | | + + + [...] LAB | | | | performed at [facility], [address] | | | | | | [address], | | | | | | [place] [address] | | | | + + + [...] - 1.030 | EXTERNAL | | | [place] | | | LAB | | + [...] | | | Urine | performed at [facility], [address] | | LAB | | | | [address], | | | | | | [place] [address] | | | | + + + [...] | | | | performed at [facility];[address] | | | | | | [address];[place], [place] | | | | | | [address] | | | | | | | [...] | | | | performed at [facility] | | LAB | | | | R[address] Sanabria;[place], [place] | | | | | | [address] | | | | + + + [...] | | | | performed at [facility];888 | | LAB | | | | [address] Core[address];[place], [place] | | | | | | [address] | | | | + + + [...] | | | | performed at [facility];[address] | | | | | | [facility];[place], [place] | | | | | | [address] | | | | + + + [...] | | | Fingerstick | performed at [facility];[address] | | LAB | | | | R[address]anne Sanabria;[place] | | | | | | [address] | | | | + + + [...] NEGATIVE Testing | | | performed at [facility];[address] [place] [address];[place] [address] | | + + + + +---------+ [...]
--- OUTSIDE RECORDS SUMMARY | ~2019-10-02 | XMS | Encounter Summary ---
Demographics + + + | Address | [address] | | | [place] [address] | + + + | Home Phone [...] Team Providers + +------+ + | Care Payroll Services Analyst Name | Role | Phone | + +------+ + | Ifeanyi aCll MD | PCP | | + +------+ + Encounter Details +--------+ + + + + | Date | Type | Department | Care Team | Description | +--------+ + + + + | 03/25/ | Hospital | Registration [facility] | | | | 2016 | Encounter | [address] | | | | | | [place], | | | | | | [place] [address] | | | +--------+ + + + [...]
--- OUTSIDE RECORDS SUMMARY | ~2019-10-02 | XMS | Encounter Summary ---
Demographics + + + | Address | [address] | | | [place] [address] | + + + | Home Phone [...] | Organization | [facility] | | | and [place] | + + + | Address | Unknown | + + + | Phone | Unavailable | + + + Support + + + + + | Name | Relationship | Address | Phone | + + + + + | Kyaw Woodson | ECON | [place], [place] | | + + + + + | Barbara Cabrera | ECON | Unknown | | + + + + + | Dimple Hathaway | ECON | Unknown | | + + + + + Care Team Providers + +------+ + | Care Township Clerk Name | Role | Phone | + +------+ + | Daniel Land NP | PCP | | + +------+ + Encounter Details +--------+ + + + + | Date | Type | Department | Care Team | Description | +--------+ + + + + | 12/10/ | Orders Only | [facility] | Kei Arthur MD | | | 2015 | | [facility] | [address] [place] | | | | | [address] [place] | [address] [place], [place] | | | | | [address] [place], [place] | [id number] | | | | | [address] | | | | | | [phone] | | | +--------+ + + + [...] | | | | | | [place] | | | | | | [address] | | | | | | | [...] 206 | | | | | | [place] [address] | | | | | | [phone] | | | | | | | | +--------+ + + + + | 11/25/ | Office | Nephrology | Kei Arthur MD | | | 2019 | Visit | | [address] [facility] | | | | | | [address] [place] | | | | | | [address] | | | | | | | [...]
--- OUTSIDE RECORDS SUMMARY | ~2019-10-02 | XMS | Encounter Summary ---
Demographics + + + | Address | [address] | | | [place] [address] | + + + | Home Phone [...] | Organization | [facility] | | | and [place] | + + + | Address | Unknown | + + + | Phone | Unavailable | + + + Support + + + + + | Name | Relationship | Address | Phone | + + + + + | Kyaw Woodson | ECON | [place], [place] | | + + + + + | Barbara Cabrera | ECON | Unknown | | + + + + + | Dimple Hathaway | ECON | Unknown | | + + + + + Care Team Providers + +------+ + | Care Feather Stitcher Name | Role | Phone | + +------+ + | Daniel Land NP | PCP | | + +------+ + Encounter Details +--------+ + + + + | Date | Type | Department | Care Team | Description | +--------+ + + + + | 06/14/ | Orders Only | [facility] | Conversion | | | 2016 | | NEPHROLOGY [place] | Transaction, | | | | | [address] [facility] [address] | Provider Unknown | | | | | [address] [facility] | | | | | | [address] | (Fax) | | | | | [phone] | | | +--------+ + + + [...] [address] | | | | | | [facility] | | | | | | [place] | | | | | | [address] | | | | | | | [...] 206 | | | | | | [place] [address] | | | | | | [phone] | | | | | | | | +--------+ + + + + | 11/25/ | Office | Nephrology | Kei Arthur MD | | | 2019 | Visit | | [address] [facility] | | | | | | [address] [facility] | | | | | | [address] | | | | | | | [...]
--- OUTSIDE RECORDS SUMMARY | ~2019-10-02 | XMS | Encounter Summary ---
Demographics + + + | Address | [address] | | | [place] [address] | + + + | Home Phone [...] + + + | Author | [facility] | | | and [place] | + + + | Organization | [facility] | | | and [place] | + + + | Address | Unknown | + + + | Phone | Unavailable | + + + Support + + + + + | Name | Relationship | Address | Phone | + + + + + | Kyaw Woodson | ECON | [place], [place] | | + + + + + | Barbara Cabrera | ECON | Unknown | | + + + + + | Dimple Hathaway | ECON | Unknown | | + + + + + Care Team Providers + +------+ + | Care Road Crossing Guard Name | Role | Phone | + +------+ + | Daniel Land NP | PCP | | + +------+ + Encounter Details +--------+ + + + + | Date | Type | Department | Care Team | Description | +--------+ + + + + | 06/29/ | Orders Only | [facility] | Kei Arthur MD | | | 2015 | | [facility] | [address] [place] | | | | | [address] [place] | [address] [place], [place] | | | | | [address] [place], [place] | [id number] | | | | | [address] | | | | | | [phone] | | | +--------+ + + + [...] 1100 | | | | | | [facility] | | | | | | [place] | | | | | | [address] | | | | | | | [...] 206 | | | | | | [place] [address] | | | | | | [phone] | | | | | | | | +--------+ + + + + | 11/25/ | Office | Nephrology | Kei Arthur MD | | | 2019 | Visit | | [address] [facility] | | | | | | [address] [place] | | | | | | [address] | | | | | | | [...] | | | LAB | | | GAMBIAN | | | | | + + [...]
--- OUTSIDE RECORDS SUMMARY | ~2019-10-02 | XMS | Encounter Summary ---
Demographics + + + | Address | [address] | | | [place] [address] | + + + | Home Phone [...] + | Organization | [facility] | | | and [place] | + + + | Address | Unknown | + + + | Phone | Unavailable | + + + Support + + + + + | Name | Relationship | Address | Phone | + + + + + | Kyaw Woodson | ECON | [place], [place] | | + + + + + | Barbara Cabrera | ECON | Unknown | | + + + + + | Dimple Hathaway | ECON | Unknown | | + + + + + Care Team Providers + +------+ + | Care Clinical Rehabilitation Aide Name | Role | Phone | + +------+ + | Daniel Land NP | PCP | | + +------+ + Encounter Details +--------+ + + + + | Date | Type | Department | Care Team | Description | +--------+ + + + + | 11/26/ | Orders Only | [facility] | Kei Arthur MD | | | 2015 | | NEPRHOLOGY [place] | [address] | | | | | [address] | [address] [place], [place] | | | | | [address] [place], [place] | [address] | | | | | [address] | | | | | | [phone] | | | +--------+ + + + [...] | | | | | | [place] | | | | | | [address] | | | | | | | [...] 206 | | | | | | [place] [address] | | | | | | [phone] | | | | | | | | +--------+ + + + + | 11/25/ | Office | Nephrology | Kei Arthur MD | | | 2019 | Visit | | [address] [place] | | | | | | [address] [facility] | | | | | | [address] | | | | | | | [...] | | | LAB | | | ENGLISH | | | | | + + [...]
--- OUTSIDE RECORDS SUMMARY | ~2019-10-02 | XMS | Encounter Summary ---
Demographics + + + | Address | [address] | | | [place] [address] | + + + | Home Phone [...] | Organization | [facility] | | | and [place] | + + + | Address | Unknown | + + + | Phone | Unavailable | + + + Support + + + + + | Name | Relationship | Address | Phone | + + + + + | Kyaw Woodson | ECON | [place], [place] | | + + + + + | Barbara Cabrera | ECON | Unknown | | + + + + + | Dimple Hathaway | ECON | Unknown | | + + + + + Care Team Providers + +------+ + | Care Ibm Mainframe Developer Name | Role | Phone | + +------+ + | Daniel Land NP | PCP | | + +------+ + Encounter Details +--------+ + + + + | Date | Type | Department | Care Team | Description | +--------+ + + + + | 09/04/ | Orders Only | [facility] | Kei Arthur MD | | | 2014 | | NEPRHOLOGY [place] | [address] | | | | | [address] | 160 [place], [place] | | | | | [address] [place], [place] | [address] | | | | | [address] | | | | | | [phone] | | | +--------+ + + + [...] | | | | | | [place] | | | | | | [address] | | | | | | | [...] 206 | | | | | | [place] [address] | | | | | | [phone] | | | | | | | | +--------+ + + + + | 11/25/ | Office | Nephrology | Kei Arthur MD | | | 2019 | Visit | | [address] [place] | | | | | | [address] [facility] | | | | | | [address] | | | | | | | [...]
--- OUTSIDE RECORDS SUMMARY | ~2019-10-02 | XMS | Encounter Summary ---
Demographics + + + | Address | [address] | | | [place] [address] | + + + | Home Phone [...] | + + +---------+ + | Valentine Qui | ECON | Unknown | | + + +---------+ + Care Team Providers + +------+ + | Care Provider Network Manager Name | Role | Phone | [...] | | | | | | | [place], [place] | | | | | | | [address] | | | | | | | Phone: | | | | | | | [phone] | | | | | | | Fax: | | | | | | | [phone] | +--------+--------+ + + + + Encounter Details +--------+---------+ + + + | Date | Type | Department | Care Team | Description | +--------+---------+ + + + | 11/09/ | Office | [facility] | Jaelyn Watters, | 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 An vlbe-wgh-irrmaat pain reliever (i.e. Tylenol) can be used [...] might be different f rom the original. [facility] Progress Note 11/09/2018 48 y.o. female Choroidal [...] | Examination: See Ophthalmology Module Attestations: The design engineering technician, under the supervision of the physician, [...] | 1.25 mg bevacizumab 1.25 mg/0.05 mL [facility]: [id number] Lot: | | | [id number] Expiration Date: 11/09/2018 Route: intravitreal Site: | [...] bevacizumab 1.25 mg/0.05 mL | | | [facility]: [id number] | | | Lot: [id number] | | | Expiration Date: 11/09/2018 | [...] 1.25 mg/0.05 mL NDC: | | | [id number] Lot: [id number] Expiration Date: 11/09/2018 Route: | | | [...] 1.25 mg/0.05 mL | | | NDC: [id number] | | | Lot: [id number] | | | Expiration Date: 11/09/2018 | [...] Performed At | + + + | Advertising Space Clerk | MEENAKSHI IRIZARRY | | [employer]: [...] + + + + + | [facility] | [address] | [place] [address] | | | MARTIN | [place]. | [...] | | | | | dose, Starting [facility] 11/09/18 at | | | | | [...] | | | | | dose, Starting [facility] 11/09/18 at | | | | | | | 1234, Until Olena 11/09/18 at 1234 | | | | | | + +-------+ +---------+---+--------+ +---+---+ | | | +---+---+ documented in this encounter"
--- OUTSIDE RECORDS SUMMARY | ~2019-10-02 | XMS | Encounter Summary ---
Demographics + + + | Address | [address] | | | [place] [address] | + + + | Home Phone [...] | Organization | [facility] | | | and [place] | + + + | Address | Unknown | + + + | Phone | Unavailable | + + + Support + + + + + | Name | Relationship | Address | Phone | + + + + + | Kyaw Woodson | ECON | [place], [place] | | + + + + + | Barbara Cabrera | ECON | Unknown | | + + + + + | Dimple Hathaway | ECON | Unknown | | + + + + + Care Team Providers + +------+ + | Care Patient Coordinator Name | Role | Phone | [...] + + | 07/16/ | Telephone | [facility] | Jerry Watts | Appointment | | 2019 | | CARDIOLOGY [place] | MD Mario [address] | | | | | [address] | [facility] | | | | | [place], [place] | [place], [place] | | | | | [address] | [id number] | | | | | [phone] | | | +--------+ + + + [...] [place] | | | | | | [address] | | | | | | | [...] | | | | | [place] [address] | | | | | | [phone] | | | | | | | | +--------+ + + + + | 11/25/ | Office | Nephrology | Kei Arthur MD | | | 2019 | Visit | | [address] [place] | | | | | | [address] [place] | | | | | | [address] | | | | | | | | +--------+ + + + + documented as of this encounter Visit Diagnoses Not on filedocumented in this encounter"
--- OUTSIDE RECORDS SUMMARY | ~2019-10-02 | XMS | Encounter Summary ---
Demographics + + + | Address | [address] | | | [place] [address] | + + + | Home Phone [...] | [facility] | | | and [place] | + + + | Address | Unknown | + + + | Phone | Unavailable | + + + Support + + + + + | Name | Relationship | Address | Phone | + + + + + | Kyaw Woodson | ECON | [place], [place] | | + + + + + | Barbara Cabrera | ECON | Unknown | | + + + + + | Dimple Hathaway | ECON | Unknown | | + + + + + Care Team Providers + +------+ + | Care Rug Backing Stenciler Name | Role | Phone | + [...] + + | 06/07/ | Telephone | [facility] | Waldemar Smith, | Referral | | 2019 | | ENDOCRINOLOGY [address] | MD [address] | | | | | [address] | [place], | | | | | [place], [place] | [place] [address] | | | | | [address] | [phone] | | | | | [phone] | | | +--------+ + + + [...] [place] | | | | | | [address] | | | | | | | [...] | | | | | [place] [address] | | | | | | [phone] | | | | | | | | +--------+ + + + + | 11/25/ | Office | Nephrology | Kei Arthur MD | | | 2019 | Visit | | [address] [facility] [address] | | | | | | [address] [place] | | | | | | [address] | | | | | | | | +--------+ + + + + documented as of this encounter Visit Diagnoses Not on filedocumented in this encounter"
--- OUTSIDE RECORDS SUMMARY | ~2019-10-02 | XMS | Encounter Summary ---
Demographics + + + | Address | [address] | | | [place] [address] | + + + | Home Phone [...] Organization | [facility] | | | and [place] | + + + | Address | Unknown | + + + | Phone | Unavailable | + + + Support + + + + + | Name | Relationship | Address | Phone | + + + + + | Kyaw Woodson | ECON | [place], [place] | | + + + + + | Barbara Cabrera | ECON | Unknown | | + + + + + | Dimple Hathaway | ECON | Unknown | | + + + + + Care Team Providers + +------+ + | Care Terminal Gauger Name | Role | Phone | + +------+ + | Daniel Land NP | PCP | | + +------+ + Encounter Details +--------+ + + + + | Date | Type | Department | Care Team | Description | +--------+ + + + + | 05/27/ | Orders Only | [facility] | Kei Fortune MD | | | 2014 | | CARDIOLOGY [place] | [address] | | | | | [address] | [place] [address] | | | | | [place], [place] | [phone] | | | | | [address] | | | | | | [phone] | | | +--------+ + + + [...] Center | | | | | | [address] | | | | | | [address] | | | | | | | [...] [address] | | | | | | [place] [address] | | | | | | [phone] | | | | | | | | +--------+ + + + + | 11/25/ | Office | Nephrology | Kei Arthur MD | | | 2020 | Visit | | [address] [facility] | | | | | | [address] [place] | | | | | | [address] | | | | | | | [...]
--- OUTSIDE RECORDS SUMMARY | ~2019-10-02 | XMS | Clinical Summary ---
Demographics + + + | Address | [address] | | | [place] [address] | + + + | Home Phone [...] Providers + +------+ + | Care Band Manager Name | Role | Phone | + +------+ + | Jennyfer Gresham MD | PCP | | + +------+ + Source Comments [facility] is fully live on both [facility] and [facility] InPatient.[facility] Allergies + + + + [...] | | | | | | | [address] | | + +--------+ +--------+ + +--------+ | MEDICAID [place] | OHP | xxxxxxxx | | [phone] | [address] | | | PL[address] | | [phone] | id | | | OPEN | | esent | | [place], [place] | | | | CARD | | | | [address] | | + +--------+ +--------+ + +--------+ [...] | | | [address] (Home) | [place] [address] | + +--------+ +--------+ + +"
--- OUTSIDE RECORDS SUMMARY | ~2019-10-02 | XMS | Encounter Summary ---
Demographics + + + | Address | [address] | | | [place] [address] | + + + | Home Phone [...] | Organization | [facility] | | | and [place] | + + + | Address | Unknown | + + + | Phone | Unavailable | + + + Support + + + + + | Name | Relationship | Address | Phone | + + + + + | Kyaw Woodson | ECON | [place], [place] | | + + + + + | Barbara Cabrera | ECON | Unknown | | + + + + + | Dimple Hathaway | ECON | Unknown | | + + + + + Care Team Providers + +------+ + | Care Fence Setter Name | Role | Phone | + +------+ + | Jennyfer Gresham MD | PCP | | + +------+ + Encounter Details +--------+ + + + + | Date | Type | Department | Care Team | Description | +--------+ + + + + | 07/16/ | Orders Only | [facility] | Conversion | | | 2013 | | CONVERSION [address] | Transaction, | | | | | [address] | Provider Unknown | | | | | [place], [place] | [phone] | | | | | [address] | | | | | | [phone] | | | +--------+ + + + [...] | | | | | [facility] | | | | | | [place] | | | | | | [id number] | | | | | | | [...] | | | | | [place] [address] | | | | | | [phone] | | | | | | | | +--------+ + + + + | 11/25/ | Office | Nephrology | Kei Arthur MD | | | 2019 | Visit | | [address] [facility] | | | | | | [address] [place] | | | | | | [id number] | | | | | | | | +--------+ + + + + documented as of this encounter Visit Diagnoses Not on filedocumented in this encounter"
--- OUTSIDE RECORDS SUMMARY | ~2019-10-02 | XMS | Encounter Summary ---
Demographics + + + | Address | [address] | | | [place] [address] | + + + | Home Phone [...] | Organization | [facility] | | | and [place] | + + + | Address | Unknown | + + + | Phone | Unavailable | + + + Support + + + + + | Name | Relationship | Address | Phone | + + + + + | Kyaw Woodson | ECON | [place], [place] | | + + + + + | Barbara Cabrera | ECON | Unknown | | + + + + + | Dimple Hathaway | ECON | Unknown | | + + + + + Care Team Providers + +------+ + | Care Stone Rougher Name | Role | Phone | + +------+ + | Daniel Land NP | PCP | | + +------+ + Encounter Details +--------+ + + + + | Date | Type | Department | Care Team | Description | +--------+ + + + + | 08/30/ | Orders Only | [facility] | Conversion | | | 2016 | | NEPHROLOGY [place] | Transaction, | | | | | [address] [facility] [address] | Provider Unknown | | | | | [address] [facility] [place] | | | | | | [address] | (Fax) | | | | | [phone] | | | +--------+ + + + [...] 1100 | | | | | | [facility] | | | | | | [place] | | | | | | [address] | | | | | | | [...] 206 | | | | | | [place] [address] | | | | | | [phone] | | | | | | | | +--------+ + + + + | 11/25/ | Office | Nephrology | Kei Arthur MD | | | 2019 | Visit | | [address] [facility] | | | | | | [facility] | | | | | | [address] | | | | | | | [...] - 1.030 | EXTERNAL | | | [place] | | | LAB | | + [...] | | | LAB | | | PANAMANIAN | | | | | + + [...]
--- OUTSIDE RECORDS SUMMARY | ~2019-10-02 | XMS | Encounter Summary ---
Demographics + + + | Address | [address] | | | [place] [address] | + + + | Home Phone [...] Organization | [facility] | | | and [place] | + + + | Address | Unknown | + + + | Phone | Unavailable | + + + Support + + + + + | Name | Relationship | Address | Phone | + + + + + | Kyaw Woodson | ECON | [place], [place] | | + + + + + | Barbara Cabrera | ECON | Unknown | | + + + + + | Dimple Hathaway | ECON | Unknown | | + + + + + Care Team Providers + +------+ + | Care Practice Billing Associate Name | Role | Phone | + +------+ + | Daniel Land NP | PCP | | + +------+ + Encounter Details +--------+ + + + + | Date | Type | Department | Care Team | Description | +--------+ + + + + | 01/14/ | Orders Only | [facility] | Conversion | | | 2018 | | NEPHROLOGY [place] | Transaction, | | | | | [address] [facility] [address] | Provider Unknown | | | | | [address] [facility] | | | | | | [address] | (Fax) | | | | | [phone] | | | +--------+ + + + [...] | | | | [facility] | | | | | | [place] | | | | | | [address] | | | | | | | [...] 206 | | | | | | [place] [address] | | | | | | [phone] | | | | | | | | +--------+ + + + + | 11/25/ | Office | Nephrology | Kei Arthur MD | | | 2019 | Visit | | [address] [facility] | | | | | | [address] [place] | | | | | | [address] | | | | | | | [...]
--- OUTSIDE RECORDS SUMMARY | ~2019-10-02 | XMS | Encounter Summary ---
Demographics + + + | Address | [address] | | | [place] [address] | + + + | Home Phone | | + + + | Preferred Language | Unknown | + + + | Marital Status | Single | + + + | Mu-Ism Affiliation | 1041 | + + + | Race | Unknown | + + + | Ethnic Group | Unknown | + + + Author + + + | Author | [facility] | | | and [place] | + + + | Organization | [facility] | | | and [place] | + + + | Address | Unknown | + + + | Phone | Unavailable | + + + Support + + + + + | Name | Relationship | Address | Phone | + + + + + | Kyaw Woodson | ECON | [place], [place] | | + + + + + | Barbara Cabrera | ECON | Unknown | | + + + + + | Dimple Hathaway | ECON | Unknown | | + + + + + Care Team Providers + +------+ + | Care School Cleaner Name | Role | Phone | + +------+ + PCP | Unavailable | + +------+ + Encounter Details +--------+ + + + + | Date | Type | Department | Care Team | Description | +--------+ + + + + | 11/12/ | Hospital | [facility] | Kimmy Ghosh | | | 1999 - | Encounter | [facility] | | | | | | ORTHOPEDICS [address] | | | | 11/15/ | | [address]th [place] | | | | 1999 | | [address] | | | | | | [phone] | | | +--------+ + + + [...] [place] | | | | | | [address] | | | | | | | [...] | | | | | [place] [address] | | | | | | [phone] | | | | | | | | +--------+ + + + + | 11/25/ | Office | Nephrology | Kei Arthur MD | | | 2020 | Visit | | [address] [facility] | | | | | | [address] [place] | | | | | | [address] | | | | | | | | +--------+ + + + + documented as of this encounter Visit Diagnoses Not on filedocumented in this encounter"
--- OUTSIDE RECORDS SUMMARY | ~2019-10-02 | XMS | Encounter Summary ---
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 | [address] | [place], [place] | | | | | | Road NE | [address] | | | | | | [address] | Phone: | | | | | | [place], [place] | [phone] | | | | | | [address] | Fax: | | | | | | Phone: | [phone] | | | | | | [phone] | | | | | | | Fax: | | | | | | | [phone] | | +--------+--------+ + + + + Encounter Details +--------+ + + + + | Date | Type | Department | Care Team | Description | +--------+ + + + + | 04/06/ | Procedure | [facility] | Erg, Cei [address] | Decreased vision | | 2017 | | [facility] | Sivakumar Sandhu | (mfERG & ffERG | | | | at [facility] [address] [place], [place] | ([facility])) | | | | [address] | [address] | | | | | Mailcode: CE | | | | | | [place] [address] | | | | | | [phone] | | | +--------+ + + + [...] OS: 5116 ERG Type: mfERG & ffERG ([facility]) Electrode mf: 1127 ERG Senior Materials Planner: Humble Glaser Dilation: Arrived dilated Pupil OD: [...] done for each eye separately using the [employer] system with 6.0.3 [employer] software with a Burian-Chin bipolar contact lens electrode and 0.5% proparacaine topic al anesthesia. Pupils were dilated to 9.0 mm OU. A -2 D lens was used OD and a -3 lens use d for OS for the 40 cm test distance. The monitor was the 21-inch Xecced high-intensity mon ochromatic unit with a refresh [...] a bandpass of 10-300 Hz using the [employer] P511 preamplifiers. Testing was split into 8 [...] note for interpretation Humble Crockett M.D., Ph.D. Supervisor Plating And Point Assembly Ophthalmic Genetics & Retinal Degeneration Ocular Immunology & Uveitis documented in this encount er Plan of Treatment Not on filedocumented as of this encounter Visit Diagnoses + + | Diagnosis | + + | Macular dystrophy Hereditary retinal dystrophy, unspecified | + + documented in this encounter"
--- OUTSIDE RECORDS SUMMARY | ~2019-10-02 | XMS | Encounter Summary ---
Demographics + + + | Address | [address] | | | [place] [address] | + + + | Home Phone [...] Organization | [facility] | | | and [place] | + + + | Address | Unknown | + + + | Phone | Unavailable | + + + Support + + + + + | Name | Relationship | Address | Phone | + + + + + | Kyaw Woodson | ECON | [place], [place] | | + + + + + | Barbara Cabrera | ECON | Unknown | | + + + + + | Dimple Hathaway | ECON | Unknown | | + + + + + Care Team Providers + +------+ + | Care Food Service Associate Name | Role | Phone | + +------+ + | Daniel Ladn NP | PCP | | + +------+ + Encounter Details +--------+ + + + + | Date | Type | Department | Care Team | Description | +--------+ + + + + | 01/21/ | Orders Only | [facility] | Conversion | | | 2016 | | NEPRHOLOGY [place] | Transaction, | | | | | [address] | Provider Unknown | | | | | [address] [place] | [phone] | | | | | [address] | | | | | | [phone] | | | +--------+ + + + [...] | | | | [facility] | | | | | | [place] | | | | | | [address] | | | | | | | [...] | | | | | [place] [address] | | | | | | [phone] | | | | | | | | +--------+ + + + + | 11/25/ | Office | Nephrology | Kei Arthur MD | | | 2019 | Visit | | [address] [facility] | | | | | | [address] [place] | | | | | | [address] | | | | | | | [...]
--- OUTSIDE RECORDS SUMMARY | ~2019-10-02 | XMS | Encounter Summary ---
Demographics + + + | Address | [address] | | | [place] [address] | + + + | Home Phone [...] Organization | [facility] | | | and [place] | + + + | Address | Unknown | + + + | Phone | Unavailable | + + + Support + + + + + | Name | Relationship | Address | Phone | + + + + + | Kyaw Woodson | ECON | [place], [place] | | + + + + + | Barbara Cabrera | ECON | Unknown | | + + + + + | Dimple Hathaway | ECON | Unknown | | + + + + + Care Team Providers + +------+ + | Care Petroleum Geologist Name | Role | Phone | + [...] + + | 08/10/ | Telephone | [facility] | Malvin, | Other (Appointment | | 2018 | | NEPHROLOGY [place] | Janes Acevedo | reminder call) | | | | [address] | [place] | | | | | [place] [facility] | | | | | | [place] | | | | | | [address] | | | | | | [phone] | | | +--------+ + + + [...] [place] | | | | | | [address] | | | | | | | [...] | | | | | [place] [address] | | | | | | [phone] | | | | | | | | +--------+ + + + + | 11/25/ | Office | Nephrology | Kei Arthur MD | | | 2020 | Visit | | [address] [facility] | | | | | | [address] [facility] [place] | | | | | | [address] | | | | | | | | +--------+ + + + + documented as of this encounter Visit Diagnoses Not on filedocumented in this encounter"
--- OUTSIDE RECORDS SUMMARY | ~2019-10-02 | XMS | Encounter Summary ---
Demographics + + + | Address | [address] | | | [place] [address] | + + + | Home Phone | | + + + | Preferred Language | Unknown | + + + | Marital Status | Single | + + + | Worship Affiliation | 1041 | + + + | Race | Unknown | + + + | Ethnic Group | Unknown | + + + Author + + + | Author | [facility] | | | and [place] | + + + | Organization | [facility] | | | and [place] | + + + | Address | Unknown | + + + | Phone | Unavailable | + + + Support + + + + + | Name | Relationship | Address | Phone | + + + + + | Kyaw Woodson | ECON | [place], [place] | | + + + + + | Barbara Cabrera | ECON | Unknown | | + + + + + | Dimple Hathaway | ECON | Unknown | | + + + + + Care Team Providers + +------+ + | Care Drug Safety Coordinator Name | Role | Phone | + +------+ + | No, Physician | PCP | Unavailable | + +------+ + Encounter Details +--------+ + + + + | Date | Type | Department | Care Team | Description | +--------+ + + + + | 11/17/ | Orders Only | [facility] | Kei Arthur MD | | | 2018 | | NEPHROLOGY [place] | [address] | | | | | [address] | [address] [place], [place] | | | | | [address] [facility] [place] | [address] | | | | | [address] | | | | | | [phone] | | | +--------+ + + + [...] [address] | | | | | | [address] | | | | | | | [...] | | | | | [place] [address] | | | | | | [phone] | | | | | | | | +--------+ + + + + | 11/25/ | Office | Nephrology | Kei Arthur MD | | | 2019 | Visit | | [address] [facility] | | | | | | [address] [place] | | | | | | [address] | | | | | | | [...]
--- OUTSIDE RECORDS SUMMARY | ~2019-10-02 | XMS | Encounter Summary ---
Demographics + + + | Address | [address] | | | [place] [address] | + + + | Home Phone [...] + | Organization | [facility] | | | and [place] | + + + | Address | Unknown | + + + | Phone | Unavailable | + + + Support + + + + + | Name | Relationship | Address | Phone | + + + + + | Kyaw Woodson | ECON | [place], [place] | | + + + + + | Barbara Cabrera | ECON | Unknown | | + + + + + | Dimple Hathaway | ECON | Unknown | | + + + + + Care Team Providers + +------+ + | Care Psychiatric Nursing Assistant Name | Role | Phone | + +------+ + | No, Physician | PCP | Unavailable | + +------+ + Encounter Details +--------+ + + + + | Date | Type | Department | Care Team | Description | +--------+ + + + + | 06/14/ | Hospital | [facility] | Conversion | Diagnosis unknown | | 2015 | Encounter | CONVERSION [address] | Transaction, | | | | | [address] | Provider Unknown | | | | | [place], [place] | [phone] | | | | | [address] | | | | | | [phone] | | | +--------+ + + + [...] [address] | | | | | | [facility] | | | | | | [place] | | | | | | [address] | | | | | | | [...] 206 | | | | | | [place] [address] | | | | | | [phone] | | | | | | | | +--------+ + + + + | 11/25/ | Office | Nephrology | Kei Arthur MD | | | 2019 | Visit | | [address] [facility] | | | | | | [address] [place] | | | | | | [address] | | | | | | | [...] | Procedure Note | + + | Marceol Matias Marnie - 05/03/2019 7:16 AM PDT [...]
--- OUTSIDE RECORDS SUMMARY | ~2019-10-02 | XMS | Encounter Summary ---
Demographics + + + | Address | [address] | | | [place] [address] | + + + | Home Phone | | + + + | Preferred Language | Unknown | + + + | Marital Status | Single | + + + | Hinduism Affiliation | 1041 | + + + | Race | Unknown | + + + | Ethnic Group | Unknown | + + + Author + + + | Author | [facility] | | | and [place] | + + + | Organization | [facility] | | | and [place] | + + + | Address | Unknown | + + + | Phone | Unavailable | + + + Support + + + + + | Name | Relationship | Address | Phone | + + + + + | Kyaw Woodson | ECON | [place], [place] | | + + + + + | Barbara aCbrera | ECON | Unknown | | + + + + + | Dimlpe Hathaway | ECON | Unknown | | + + + + + Care Team Providers + +------+ + | Care Aerial Survey Technician Name | Role | Phone | + +------+ + | Jennyfer Gresham MD | PCP | | + +------+ + Encounter Details +--------+ + + + + | Date | Type | Department | Care Team | Description | +--------+ + + + + | 11/07/ | Orders Only | [facility] | Mari Mcdaniel, | | | 2019 | | CARDIOLOGY [place] | [address] | | | | | [address] | [address] [place], [place] | | | | | [place], [place] | [address] | | | | | [address] | | | | | | [phone] | | | +--------+ + + + [...] [place] | | | | | | [address] | | | | | | | [...] | | | | | [place] [address] | | | | | | [phone] | | | | | | | | +--------+ + + + + | 11/25/ | Office | Nephrology | Kei Arthur MD | | | 2020 | Visit | | [address] | | | | | | [address] [place] | | | | | | [address] | | | | | | | | +--------+ + + + + documented as of this encounter Visit Diagnoses Not on filedocumented in this encounter"
--- OUTSIDE RECORDS SUMMARY | ~2019-10-02 | XMS | Encounter Summary ---
Demographics + + + | Address | [address] | | | [place] [address] | + + + | Home Phone [...] | [facility] | | | and [place] | + + + | Address | Unknown | + + + | Phone | Unavailable | + + + Support + + + + + | Name | Relationship | Address | Phone | + + + + + | Kyaw Woodson | ECON | [place], [place] | | + + + + + | Barbara Cabrera | ECON | Unknown | | + + + + + | Dimple Hathaway | ECON | Unknown | | + + + + + Care Team Providers + +------+ + | Care Director Of Casework Name | Role | Phone | + +------+ + | No, Physician | PCP | Unavailable | + +------+ + Encounter Details +--------+ + + + + | Date | Type | Department | Care Team | Description | +--------+ + + + + | 07/27/ | Orders Only | [facility] | Kei Arthur MD | | | 2018 | | NEPHROLOGY [place] | [address] | | | | | [address] | [address] [place], [place] | | | | | [address] [facility] [place] | [address] | | | | | [address] | | | | | | [phone] | | | +--------+ + + + [...] [address] | | | | | | [address] | | | | | | | [...] | | | | | [place] [address] | | | | | | [phone] | | | | | | | | +--------+ + + + + | 11/25/ | Office | Nephrology | Kei Arthur MD | | | 2019 | Visit | | [address] [facility] | | | | | | [address] [place] | | | | | | [address] | | | | | | | [...]
--- OUTSIDE RECORDS SUMMARY | ~2019-10-02 | XMS | Encounter Summary ---
Demographics + + + | Address | [address] | | | [place] [address] | + + + | Home Phone [...] Organization | [facility] | | | and [place] | + + + | Address | Unknown | + + + | Phone | Unavailable | + + + Support + + + + + | Name | Relationship | Address | Phone | + + + + + | Kyaw Woodson | ECON | [place], [place] | | + + + + + | Barbara Cabrera | ECON | Unknown | | + + + + + | Dimple Hathaway | ECON | Unknown | | + + + + + Care Team Providers + +------+ + | Care All Terrain Vehicle Technician Name | Role | Phone | [...] Provider Unknown | | | | | [place], [place] | [phone] | | | | | [address] | | | | | | [phone] | | | +--------+ + + + [...] | | | | | [facility] | | | | | | [place] | | | | | | [id number] | | | | | | | [...] | | | | | [place] [address] | | | | | | [phone] | | | | | | | | +--------+ + + + + | 11/25/ | Office | Nephrology | Kei Arthur MD | | | 2019 | Visit | | [address] [facility] | | | | | | [address] [place] | | | | | | [id number] | | | | | | | | +--------+ + + + + documented as of this encounter Visit Diagnoses Not on filedocumented in this encounter"
--- OUTSIDE RECORDS SUMMARY | ~2019-10-02 | XMS | Encounter Summary ---
Demographics + + + | Address | [address] | | | [place] [address] | + + + | Home Phone | | + + + | Preferred Language | Unknown | + + + | Marital Status | Single | + + + | Rastafarian Affiliation | UNK | + + + | Race | White | + + + | Ethnic Group | Not or | + + + Author + + + | Author | [facility] | + + + | Organization | [facility] | + + + | Address | Unknown | + + + | Phone | Unavailable | + + + Support + + +---------+ + | Name | Relationship | Address | Phone | + + +---------+ + | Valentine Qiu | ECON | Unknown | | + + +---------+ + Care Team Providers + +------+ + | Care Mud Worker Name | Role | Phone | [...] | | | | | | | [place], [place] | | | | | | | [address] | | | | | | | Phone: | | | | | | | [phone] | | | | | | | Fax: | | | | | | | [phone] | +--------+--------+ + + + + Encounter Details +--------+---------+ + + + | Date | Type | Department | Care Team | Description | +--------+---------+ + + + | 08/01/ | Office | [facility] | Jaelyn Watters, | 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 An xaba-dqk-bcvocdu pain reliever (i.e. Tylenol) can be used [...] might be different f rom the original. [facility] Progress Note 08/01/2018 48 y.o. female Type [...] | Examination: See Ophthalmology Module Attestations: The infectious disease technician, under the supervision of the physician, [...] bevacizumab 1.25 mg/0.05 mL | | | [facility]: [id number] | | | Lot: [id number] | | | Expiration Date: 08/04/2018 | [...] bevacizumab 1.25 mg/0.05 mL | | | [facility]: [id number] | | | Lot: [id number] | | | Expiration Date: 08/04/2018 | [...] Performed At | + + + | Instructional Systems Design Consultant | [facility] | | [employer]: [...] + | [facility] | [address] | [place] [address] | | | INSTITUTE | [place]. | [...]
--- OUTSIDE RECORDS SUMMARY | ~2019-10-02 | XMS | Encounter Summary ---
Demographics + + + | Address | [address] | | | [place] [address] | + + + | Home Phone [...] | [facility] | | | and [place] | + + + | Address | Unknown | + + + | Phone | Unavailable | + + + Support + + + + + | Name | Relationship | Address | Phone | + + + + + | Kyaw Woodson | ECON | [place], [place] | | + + + + + | Barbara Cabrera | ECON | Unknown | | + + + + + | Dimple Hathaway | ECON | Unknown | | + + + + + Care Team Providers + +------+ + | Care Craft Artist Name | Role | Phone | + +------+ + | Daniel Land NP | PCP | | + +------+ + Encounter Details +--------+ + + + + | Date | Type | Department | Care Team | Description | +--------+ + + + + | 06/07/ | Orders Only | [facility] | Conversion | | | 2016 | | NEPRHOLOGY [place] | Transaction, | | | | | [address] | Provider Unknown | | | | | [address] [place] | [phone] | | | | | [address] | | | | | | [phone] | | | +--------+ + + + [...] | | | | | [address] [facility] | | | | | | [place] | | | | | | [address] | | | | | | | [...] | | | | | [place] [address] | | | | | | [phone] | | | | | | | | +--------+ + + + + | 11/25/ | Office | Nephrology | Kei Arthur MD | | | 2019 | Visit | | [address] [facility] | | | | | | [address] [place] | | | | | | [address] | | | | | | | [...] | | | LAB | | | [place] | | | | | + + [...]
--- OUTSIDE RECORDS SUMMARY | ~2019-10-02 | XMS | Encounter Summary ---
Demographics + + + | Address | [address] | | | [place] [address] | + + + | Home Phone | | + + + | Preferred Language | Unknown | + + + | Marital Status | Single | + + + | Taoism Affiliation | UNK | + + + | Race | White | + + + | Ethnic Group | Not or | + + + Author + + + | Author | [facility] | + + + | Organization | [facility] | + + + | Address | Unknown | + + + | Phone | Unavailable | + + + Support + + +---------+ + | Name | Relationship | Address | Phone | + + +---------+ + | Valentine Qiu | ECON | Unknown | | + + +---------+ + Care Team Providers + +------+ + | Care Miller Distillery Name | Role | Phone | + +------+ + | Ifeanyi Call MD | PCP | | + +------+ + Encounter Details +--------+ + + + + | Date | Type | Department | Care Team | Description | +--------+ + + + + | 03/31/ | Document-Sc | [facility] | Danielito Crockett MD,PhD | | | 2016 | anned | [facility] | [address] | | | | | at [place] [address] | [address] | | | | | [facility] | [place], [place] | | | | | Mailcode: [facility] | [address] | | | | | [place] [address] | [phone] | | | | | [phone] | | | +--------+ + + + [...]
--- OUTSIDE RECORDS SUMMARY | ~2019-10-02 | XMS | Encounter Summary ---
Demographics + + + | Address | [address] | | | [place] [address] | + + + | Home Phone [...] + | Organization | [facility] | | | and [place] | + + + | Address | Unknown | + + + | Phone | Unavailable | + + + Support + + + + + | Name | Relationship | Address | Phone | + + + + + | Kyaw Woodson | ECON | [place], [place] | | + + + + + | Barbara Cabrera | ECON | Unknown | | + + + + + | Dimple Hathaway | ECON | Unknown | | + + + + + Care Team Providers + +------+ + | Care Invoice Clerk Name | Role | Phone | + +------+ + PCP | Unavailable | + +------+ + Encounter Details +--------+---------+ + + + | Date | Type | Department | Care Team | Description | +--------+---------+ + + + | 05/16/ | Office | [facility] | Kei Arthur MD | CKD (chronic kidney | | 2019 | Visit | NEPHROLOGY [place] | [address] | disease) stage 3, | | | | [address] | [address] [facility] [place] | GFR 30-59 ml/min | | | | [address] [facility], [place] | [address] | ([facility]) (Primary Dx); | | | | [address] | | 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 Caballero is a [...] or concerns. Truly yours, Kei Arthur MD [facility] documented in this enco unter [...] [place] | | | | | | [address] | | | | | | | [...] | | | | | [place] [address] | | | | | | [phone] | | | | | | | | +--------+ + + + + | 11/25/ | Office | Nephrology | Kei Arthur MD | | | 2019 | Visit | | [address] [facility] [address] | | | | | | [address] [place] | | | | | | [address] | | | | | | | | +--------+ + + + + documented as of this encounter Visit Diagnoses + + | Diagnosis | + + | CKD (chronic kidney disease) stage 3, GFR 30-59 ml/min ([facility]) - Primary Chronic kidney | | disease, [...]
--- OUTSIDE RECORDS SUMMARY | ~2019-10-02 | XMS | Encounter Summary ---
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 | | | | at [place] [address] | [address] | both eyes (Primary | | | | [address] | [place], [place] | Dx); LV (low | | | | Mailcode: [facility] | [address] | vision); Abnormal | | | | [place] [address] | [phone] | electroretinogram | | | | [phone] | | (ERG); Low vision, | | [...] Aliya Goodrich MD [facility] [place] [address] Chief Complaint: blurry vision HPI: Alondra Caballero [...] Pressure 14 15 Wearing Rx Sphere Cylinder Bowdon Right -5.75 +0.75 180 Left -6.50 +1.00 178 Type: SVL Manifest Refraction Sphere Cylinder Bowdon Dist Right -7.75 +0.75 177 20/50-2 Left -7.25 +0.25 180 20/40-2 Dilation Both eyes: 2.5% Phenylephrine, 1.0% Mydriacyl @ 10:09 AM Pupils Pupils Right PERRL Left PERRL Extraocular Movement Right Left Result Full, Ortho Full, Ortho Additional Tests Color Right Left Jolley - Duncan - Rittler 02/22 02/22 Slit Lamp and [...] no thinning OS. CFT (m) OD OS Gunxpfbow-fv-ybus Action 12/23/2016 311 301 Multifocal ERG Interpretation [...] questions answered. Treatment None at this time. [facility] ophthalmic genetics as needed. Will need local retina specialist to monitor diabetic retinopathy and macular telangiectasi a. If patient would like to follow-up at [facility] in the future, recommend Dr. Paz Wei, MARQUIS Crockett M.D., Ph.D. Training And Development Assistant Ophthalmic Genetics & Retinal Degeneration Ocular Immunology & Uveitis Physician attestation: The central supply technician supervisor, resident, or fellow are under the supervision [...] | + +--------+ + + + | [place] | Routin | 01/08/2017 | LV (low [...] | + +--------+ + + + | [place] | Routin | 01/08/2017 | LV (low [...] | + +--------+ + + + | [place] FLUORESCEIN | Routin | 01/08/2017 | LV [...] | + +--------+ + + + | [place] FLUORESCEIN | Routin | 01/08/2017 | LV [...] | + +--------+ + + + | [place] VISUAL FIELD | Routin | 01/08/2017 | [...]
--- OUTSIDE RECORDS SUMMARY | ~2019-10-02 | XMS | Encounter Summary ---
Demographics + + + | Address | [address] | | | [place] [address] | + + + | Home Phone [...] Organization | [facility] | | | and [place] | + + + | Address | Unknown | + + + | Phone | Unavailable | + + + Support + + + + + | Name | Relationship | Address | Phone | + + + + + | Kyaw Woodson | ECON | [place], [place] | | + + + + + | Barbara Cabrera | ECON | Unknown | | + + + + + | Dimple Hathaway | ECON | Unknown | | + + + + + Care Team Providers + +------+ + | Care Fiber Analyst Name | Role | Phone | [...] + + | 06/25/ | Procedure | [facility] | | 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
--- OUTSIDE RECORDS SUMMARY | ~2019-10-02 | XMS | Encounter Summary ---
Demographics + + + | Address | [address] | | | [place] [address] | + + + | Home Phone [...] Organization | [facility] | | | and [place] | + + + | Address | Unknown | + + + | Phone | Unavailable | + + + Support + + + + + | Name | Relationship | Address | Phone | + + + + + | Kyaw Woodson | ECON | [place], [place] | | + + + + + | Barbara Cabrera | ECON | Unknown | | + + + + + | Dimple Hathaway | ECON | Unknown | | + + + + + Care Team Providers + +------+ + | Care Primary Care Provider Name | Role | Phone | + +------+ + | Daniel Land NP | PCP | | + +------+ + Encounter Details +--------+ + + + + | Date | Type | Department | Care Team | Description | +--------+ + + + + | 08/17/ | Orders Only | [facility] | Conversion | | | 2017 | | NEPRHOLOGY [place] | Transaction, | | | | | [address] | Provider Unknown | | | | | [address] [place] | [phone] | | | | | [address] | | | | | | [phone] | | | +--------+ + + + [...] | | | | [facility] | | | | | | [place] | | | | | | [address] | | | | | | | [...] | | | | | [place] [address] | | | | | | [phone] | | | | | | | | +--------+ + + + + | 11/25/ | Office | Nephrology | Kei Arthur MD | | | 2019 | Visit | | [address] [facility] | | | | | | [address] [place] | | | | | | [address] | | | | | | | [...]
--- OUTSIDE RECORDS SUMMARY | ~2019-10-02 | XMS | Encounter Summary ---
Demographics + + + | Address | [address] | | | [place] [address] | + + + | Home Phone | | + + + | Preferred Language | Unknown | + + + | Marital Status | Single | + + + | Yarsani Affiliation | 1041 | + + + | Race | Unknown | + + + | Ethnic Group | Unknown | + + + Author + + + | Author | [facility] | | | and [place] | + + + | Organization | [facility] | | | and [place] | + + + | Address | Unknown | + + + | Phone | Unavailable | + + + Support + + + + + | Name | Relationship | Address | Phone | + + + + + | Kyaw Woodson | ECON | [place], [place] | | + + + + + | Barbara Cabrera | ECON | Unknown | | + + + + + | Dimple Hathaway | ECON | Unknown | | + + + + + Care Team Providers + +------+ + | Care Drapery Sewer Hand Name | Role | Phone | + +------+ + | No, Physician | PCP | Unavailable | + +------+ + Encounter Details +--------+ + + + + | Date | Type | Department | Care Team | Description | +--------+ + + + + | 04/17/ | Orders Only | [facility] | Kei Arthur MD | | | 2018 | | NEPHROLOGY [place] | [address] | | | | | [address] | [address] [place], [place] | | | | | [address] [facility] [place] | [address] | | | | | [address] | | | | | | [phone] | | | +--------+ + + + [...] [address] | | | | | | [address] | | | | | | | [...] | | | | | [place] [address] | | | | | | [phone] | | | | | | | | +--------+ + + + + | 11/25/ | Office | Nephrology | Kei Arthur MD | | | 2019 | Visit | | [address] [facility] | | | | | | [address] [place] | | | | | | [address] | | | | | | | [...] | | | LAB | | | CIT[place] | | | | | + + [...]
--- OUTSIDE RECORDS SUMMARY | ~2019-10-02 | XMS | Encounter Summary ---
Demographics + + + | Address | [address] | | | [place] [address] | + + + | Home Phone [...] | Organization | [facility] | | | and [place] | + + + | Address | Unknown | + + + | Phone | Unavailable | + + + Support + + + + + | Name | Relationship | Address | Phone | + + + + + | Kyaw Woodson | ECON | [place], [place] | | + + + + + | Barbara Cabrera | ECON | Unknown | | + + + + + | Dimple Hathaway | ECON | Unknown | | + + + + + Care Team Providers + +------+ + | Care Prints And Drawings Curator Name | Role | Phone | + [...] | | | | | congestive | [place], [place] | [place], | | | | | heart | [address] | [place] [address] | | | | | failure | Phone: | Phone: | | | | | ([facility]) | [phone] | [phone] | | | | | Ischemic | Fax: | Fax: | | | | | cardiomyopat | [phone] | [phone] | | | | | hy | | | + + + + + + + Encounter Details +--------+ + + + + | Date | Type | Department | Care Team | Description | +--------+ + + + + | 06/05/ | Orders Only | [facility] | Mair Mcdaniel, | 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[place], [place]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 | | | | [place], [place] | [id number] | heart failure (HCC) | | | | [address] | | (Primary Dx); | | | | [phone] | | Ischemic | | | | [...] [place] | | | | | | [address] | | | | | | | [...] | | | | | [place] [address] | | | | | | [phone] | | | | | | | | +--------+ + + + + | 11/25/ | Office | Nephrology | Kei Arthur MD | | | 2019 | Visit | | [address] [facility] | | | | | | [address] [place], [place] | | | | | | [address] | | | | | | | | +--------+ + + + + + + +--------+ + + | Name | Type | Priori | Associated Diagnoses | Order Schedule | | | | ty | | | + + +--------+ + + | Ambulatory referral | Outpatient | Routin | Chronic combined | Ordered: 06/05/2019 | | to [facility] | Referral | e | systolic [...]
--- OUTSIDE RECORDS SUMMARY | ~2019-10-02 | XMS | Encounter Summary ---
Demographics + + + | Address | [address] | | | [place] [address] | + + + | Home Phone [...] + | Organization | [facility] | | | and [place] | + + + | Address | Unknown | + + + | Phone | Unavailable | + + + Support + + + + + | Name | Relationship | Address | Phone | + + + + + | Kyaw Woodson | ECON | [place], [place] | | + + + + + | Barbara Cabrera | ECON | Unknown | | + + + + + | Dimple Hathaway | ECON | Unknown | | + + + + + Care Team Providers + +------+ + | Care Garnetter Name | Role | Phone | + [...] + + | 05/25/ | Telephone | [facility] | Kei Arthur MD | Other (call back) | | 2019 | | NEPHROLOGY [place] | [address] | | | | | [address] | [address] [place] | | | | | [address] [place] | [address] | | | | | [address] | | | | | | [phone] | | | +--------+ + + + [...] [place] | | | | | | [address] | | | | | | | [...] | | | | | [place] [address] | | | | | | [phone] | | | | | | | | +--------+ + + + + | 11/25/ | Office | Nephrology | Kei Arthur MD | | | 2020 | Visit | | [address] [facility] | | | | | | [address] [place] | | | | | | [address] | | | | | | | | +--------+ + + + + documented as of this encounter Visit Diagnoses Not on filedocumented in this encounter"
--- OUTSIDE RECORDS SUMMARY | ~2019-10-02 | XMS | Encounter Summary ---
Demographics + + + | Address | [address] | | | [place] [address] | + + + | Home Phone [...] Organization | [facility] | | | and [place] | + + + | Address | Unknown | + + + | Phone | Unavailable | + + + Support + + + + + | Name | Relationship | Address | Phone | + + + + + | Kyaw Woodson | ECON | [place], [place] | | + + + + + | Barbara Cabrera | ECON | Unknown | | + + + + + | Dimple Hathaway | ECON | Unknown | | + + + + + Care Team Providers + +------+ + | Care Cigar Head Holer Name | Role | Phone | + +------+ + | Jennyfer Gresham MD | PCP | | + +------+ + Encounter Details +--------+ + + + + | Date | Type | Department | Care Team | Description | +--------+ + + + + | 10/18/ | Orders Only | [facility] | Mari Mcdaniel, | | | 2019 | | CARDIOLOGY [place] | [address] | | | | | [address] | [place], [place] | | | | | [place], [place] | [address] | | | | | [address] | | | | | | [phone] | | | +--------+ + + + [...] [place] | | | | | | [address] | | | | | | | [...] | | | | | | [place] [address] | | | | | | [phone] | | | | | | | | +--------+ + + + + | 11/25/ | Office | Nephrology | Kei Arthur MD | | | 2020 | Visit | | [address] | | | | | | [address] [place] | | | | | | [address] | | | | | | | | +--------+ + + + + documented as of this encounter Visit Diagnoses Not on filedocumented in this encounter"
--- OUTSIDE RECORDS SUMMARY | ~2019-10-02 | XMS | Encounter Summary ---
Demographics + + + | Address | [address] | | | [place] [address] | + + + | Home Phone [...] + | Organization | [facility] | | | and [place] | + + + | Address | Unknown | + + + | Phone | Unavailable | + + + Support + + + + + | Name | Relationship | Address | Phone | + + + + + | Kyaw Woodson | ECON | [place], [place] | | + + + + + | Barbara Cabrera | ECON | Unknown | | + + + + + | Dimple Hathaway | ECON | Unknown | | + + + + + Care Team Providers + +------+ + | Care Cofounder Name | Role | Phone | + +------+ + | Daniel Land NP | PCP | | + +------+ + Encounter Details +--------+ + + + + | Date | Type | Department | Care Team | Description | +--------+ + + + + | 04/02/ | Orders Only | [facility] | Nasreen Marin | | | 2014 | | NEPHROLOGY [place] | [address] | | | | | [address] | [address] | | | | | [address] [place] | [place] [address] | | | | | [address] | [phone] | | | | | [phone] | | | +--------+ + + + [...] [address] | | | | | | [facility] | | | | | | [place] | | | | | | [address] | | | | | | | [...] 206 | | | | | | [place] [address] | | | | | | [phone] | | | | | | | | +--------+ + + + + | 11/25/ | Office | Nephrology | eKi Arthur MD | | | 2019 | Visit | | [address] | | | | | | [address] [facility] | | | | | | [address] | | | | | | | [...] - 1.030 | EXTERNAL | | | [place] | | | LAB | | + [...]
--- OUTSIDE RECORDS SUMMARY | ~2019-10-02 | XMS | Encounter Summary ---
Demographics + + + | Address | [address] | | | [place] [address] | + + + | Home Phone [...] | Organization | [facility] | | | and [place] | + + + | Address | Unknown | + + + | Phone | Unavailable | + + + Support + + + + + | Name | Relationship | Address | Phone | + + + + + | Kyaw Woodson | ECON | [place], [place] | | + + + + + | Barbara Cabrera | ECON | Unknown | | + + + + + | Dimple Hathaway | ECON | Unknown | | + + + + + Care Team Providers + +------+ + | Care Gang Mower Operator Name | Role | Phone | + +------+ + | Daniel Land NP | PCP | | + +------+ + Encounter Details +--------+ + + + + | Date | Type | Department | Care Team | Description | +--------+ + + + + | 06/23/ | Orders Only | [facility] | Conversion | | | 2016 | | NEPRHOLOGY [place] | Transaction, | | | | | [address] | Provider Unknown | | | | | [address] [place] | [phone] | | | | | [address] | | | | | | [phone] | | | +--------+ + + + [...] [place] | | | | | | [address] | | | | | | | [...] | | | | | [place] [address] | | | | | | [phone] | | | | | | | | +--------+ + + + + | 11/25/ | Office | Nephrology | Kei Arthur MD | | | 2019 | Visit | | [address] [facility] | | | | | | [address] [place] | | | | | | [address] | | | | | | | [...]
--- OUTSIDE RECORDS SUMMARY | ~2019-10-02 | XMS | Encounter Summary ---
Demographics + + + | Address | [address] | | | [place] [address] | + + + | Home Phone [...] | Organization | [facility] | | | and [place] | + + + | Address | Unknown | + + + | Phone | Unavailable | + + + Support + + + + + | Name | Relationship | Address | Phone | + + + + + | Kyaw Woodson | ECON | [place], [place] | | + + + + + | Barbara Cabrera | ECON | Unknown | | + + + + + | Dimple Hathaway | ECON | Unknown | | + + + + + Care Team Providers + +------+ + | Care Regional Refrigerated Cdl Truck Driver Name | Role | Phone | + +------+ + | Daniel Land NP | PCP | | + +------+ + Encounter Details +--------+ + + + + | Date | Type | Department | Care Team | Description | +--------+ + + + + | 01/27/ | Orders Only | [facility] | Kei Arthur MD | | | 2015 | | [facility] | [address] | | | | | [address] | [address] [place], [place] | | | | | [address] [place], [place] | [id number] | | | | | [address] | | | | | | [phone] | | | +--------+ + + + [...] [address] | | | | | | [facility] | | | | | | [place] | | | | | | [address] | | | | | | | [...] | | | | [place] [address] | | | | | | [phone] | | | | | | | | +--------+ + + + + | 11/25/ | Office | Nephrology | Kei Arthur MD | | | 2019 | Visit | | [address] [address] [facility] | | | | | | [address] [place] | | | | | | [address] | | | | | | | [...] | | | LAB | | | [place] | | | | | + + [...]
--- OUTSIDE RECORDS SUMMARY | ~2019-10-02 | XMS | Encounter Summary ---
Demographics + + + | Address | [address] | | | [place] [address] | + + + | Home Phone [...] + | Kyaw Woodson | ECON | [place], [place] | | + + + + + | Barbara Cabrera | ECON | Unknown | | + + + + + | Dimple Hathaway | ECON | Unknown | | + + + + + Care Team Providers + +------+ + | Care Process Manager Name | Role | Phone | + +------+ + | Jennyfer Gresham MD | PCP | | + +------+ + Encounter Details +--------+ + + + + | Date | Type | Department | Care Team | Description | +--------+ + + + + | 08/22/ | Orders Only | [facility] | Kei Fortune MD | | | 2012 | | CARDIOLOGY [place] | [address] | | | | | [address] | [place] [address] | | | | | [place], [place] | [phone] | | | | | [address] | | | | | | [phone] | | | +--------+ + + + [...] [place]ON[place] | | | | | | [address] | | | | | | | [...] | | | | | | [place] [address] | | | | | | [phone] | | | | | | | | +--------+ + + + + | 11/25/ | Office | Nephrology | Kei Arthur MD | | | 2020 | Visit | | [address] | | | | | | [address] [place] | | | | | | [address] | | | | | | | | +--------+ + + + + documented as of this encounter Visit Diagnoses Not on filedocumented in this encounter"
--- OUTSIDE RECORDS SUMMARY | ~2019-10-02 | XMS | Encounter Summary ---
Demographics + + + | Address | [address] | | | [place] [address] | + + + | Home Phone [...] + + + | Author | [facility] | | | and [place] | + + + | Organization | [facility] | | | and [place] | + + + | Address | Unknown | + + + | Phone | Unavailable | + + + Support + + + + + | Name | Relationship | Address | Phone | + + + + + | Kyaw Woodson | ECON | [place], [place] | | + + + + + | Barbara Cabrera | ECON | Unknown | | + + + + + | Dimple Hathaway | ECON | Unknown | | + + + + + Care Team Providers + +------+ + | Care Surgical Dressing Maker Name | Role | Phone | + +------+ + PCP | Unavailable | + +------+ + Encounter Details +--------+ + + + + | Date | Type | Department | Care Team | Description | +--------+ + + + + | 12/12/ | Hospital | [facility] | Fany Ceja, | | | 2012 - | Encounter | [facility] | MD [address] | | | | | CARDIAC TELEMETRY | [address] [place] | | | 12/13/ | | [address] | [address] | | | 2012 | | [place] | [phone] | | | | | [address] | | | | | | [phone] | | | +--------+ + + + [...] 1970 ADMISSION DATE: 12/12/2012 DISCHARGE DATE: 12/13/2012 [id number] / [id number] DISCHARGE DIAGNOSIS: 1. History of methamphetamine abuse. [...] will then go home. She lives in [place]. Fany Ceja MD VÍCTOR HINTONGissel Olivarez ADM:12/12/12 [id number] 12/13/12 DIS Catr[place] DISCHARGE SUMMARY [id number] [facility] Fany Ceja MD [facility] THIS REPORT IS CONFIDENTIAL AND NOT TO BE RELEASED WITHOUT PROPER AUTHORIZATION. [facility] MINH/stephany #[id number] cc: Fany Ceja MD Electronically Signed 12/30/12812 Fany Ceja MD ADAM HINTON ADM:12/12/12 [id number] 12/13/12 DIS Catr[place] DISCHARGE SUMMARY [id number] [facility] Fany Ceja MD [facility] THIS REPORT IS CONFIDENTIAL AND NOT TO [...] [address] | | | | | | [facility] | | | | | | [place] | | | | | | [address] | | | | | | | [...] [address] | | | | | | [place] [address] | | | | | | [phone] | | | | | | | | +--------+ + + + + | 11/25/ | Office | Nephrology | Kei Arthur MD | | | 2019 | Visit | | [address] [facility] | | | | | | [address] [place] | | | | | | [address] | | | | | | | [...] + | [facility] | [address] | [place] [address] | | | [facility] | [...] + | [facility] | [address] | [place] [address] | | | [facility] | [...] [facility] | [address] | [place] [address] | | | [facility] | | | | | [...] + | [facility] | [address] | [place] [address] | | | [facility] | | | | | LABORATORY | | | | + + + + + XR Chest 2 VW (12/12/2012 2:22 PM PDT) + + | Specimen | + + | | + + + + + | Narrative | Performed At | + + + | Exam Performed Location: [facility] AND | MISCELANIOUS | | LATERAL [...] the exam. | | | S: SQ ([id number]) Signed by: DANIEL LANE MD and LUKASZ | | | SHANNA MESA MD R5 | | + + + + + | Procedure Note | + + | Florencio, Rad Conversion - 07/11/2013 10:46 PM PDT Exam Performed Location: [facility] | | at [facility] AND LATERAL CHESTCLINICAL INFORMATION:Patient has [...] portions of the exam.S: SQ | | ([id number]) Signed by: DANIEL LANE MD and LUKASZ [...] | | | | | |S: SQ ([id number]) Signed by: DANIEL LANE MD and LUKASZ MESA MD R5 | + + + +---------+ + + | Performing | Address | City/State/Zipcode | Phone Number | | Organization | | | | + +---------+ + + | [facility] | | | [phone] | + +---------+ + + | [facility] | | | [phone] | + +---------+ + + Basic Metabolic [...] [facility] | | | | 94 mg/dL. Gabonese | | HEART | | | | [...] + | [facility] | [address] | [place] [address] | | | [facility] | | | | | LABORATORY [...] + + | [facility] | [address] | [place] [address] | | | [facility] | [...] + + | [facility] | [address] | [place] [address] | | | [facility] | | | | | LABORATORY | | | | + + + + + documented in this encounter Visit Diagnoses Not on filedocumented in this encounter"
--- OUTSIDE RECORDS SUMMARY | ~2019-10-02 | XMS | Encounter Summary ---
Demographics + + + | Address | [address] | | | [place] [address] | + + + | Home Phone | | + + + | Preferred Language | Unknown | + + + | Marital Status | Single | + + + | Gnosticist Affiliation | [id number] | + + + | Race | Unknown | + + + | Ethnic Group | Unknown | + + + Author + + + | Author | [facility] | | | and [place] | + + + | Organization | [facility] | | | and [place] | + + + | Address | Unknown | + + + | Phone | Unavailable | + + + Support + + + + + | Name | Relationship | Address | Phone | + + + + + | Kyaw Woodson | ECON | [place], [place] | | + + + + + | Barbara Cabrera | ECON | Unknown | | + + + + + | Dimple Hathaway | ECON | Unknown | | + + + + + Care Team Providers + +------+ + | Care Financial Analysis Advisor Name | Role | Phone | [...] + + | 08/22/ | Procedure | [facility] | | ICD (implantable | | 2019 | visit | [facility] [place] | | cardioverter-defibri | | | | [address] | | dequan rangel, in | | | | [place] | | situ (Primary Dx) | | | | [address] | | | | | | [phone] | | | +--------+ + + + [...] BETANCOURT | | | | | | [id number] | | | | | | | [...] | | | | | [place] [address] | | | | | | [phone] | | | | | | | | +--------+ + + + + | 11/25/ | Office | Nephrology | Kei Arthur MD | | | 2019 | Visit | | [address] [facility] | | | | | | [address] [place], [place] | | | | | | [address] | | | | | | | [...] Brenda Koroma | ERICKA | | James Desktop Support Associate 08/23/2019 10:23 AMDevice interrogation | | | done by Marilu Watts Any events or changes listed in office note. See | | | device data attached to scheduled encounter for additional details. | | | geospatial intelligence analyst: Brenda Ramirez, [facility] | | |See device data attached to scheduled encounter for additional | | |details. | | | | | |geospatial intelligence analyst: Brenda Ramirez, [facility] | | + + + + + | Procedure Note | + + | Brenda Ramirez, Desktop Support Associate - 08/22/2019 10:30 AM PST Device interrogation | | done by Marilu Guerra events or changes listed in office note.See device data attached | | to scheduled encounter for additional details. geospatial intelligence analyst: Brenda Ramirez, [facility] | | | |See device data attached to scheduled encounter for additional details. | | | |geospatial intelligence analyst: Brenda Ramirez, [facility] | + + [...]
--- OUTSIDE RECORDS SUMMARY | ~2019-10-02 | XMS | Encounter Summary ---
Demographics + + + | Address | [address] | | | [place] [address] | + + + | Home Phone [...] | Organization | [facility] | | | and [place] | + + + | Address | Unknown | + + + | Phone | Unavailable | + + + Support + + + + + | Name | Relationship | Address | Phone | + + + + + | Kyaw Woodson | ECON | [place], [place] | | + + + + + | Barbara Cabrera | ECON | Unknown | | + + + + + | Dimple Hathaway | ECON | Unknown | | + + + + + Care Team Providers + +------+ + | Care Human Capital Analyst Name | Role | Phone | + +------+ + | Daniel Land NP | PCP | | + +------+ + Encounter Details +--------+ + + + + | Date | Type | Department | Care Team | Description | +--------+ + + + + | 02/17/ | Orders Only | [facility] | Conversion | | | 2016 | | [place]PRHOLOGY [place] | Transaction, | | | | | [address] | Provider Unknown | | | | | [address] [place] | [phone] | | | | | [address] | | | | | | [phone] | | | +--------+ + + + [...] | | | | | [facility] [facility] | | | | | | [place] | | | | | | [address] | | | | | | | [...] | | | | | [place] [address] | | | | | | [phone] | | | | | | | | +--------+ + + + + | 11/25/ | Office | Nephrology | Kei Arthur MD | | | 2019 | Visit | | [address] [facility] | | | | | | [address] [place] | | | | | | [address] | | | | | | | [...]
[~2019-10-02 00:49] MED LIST changes: +DOXYCYCLINE HY100 MG PO; +HUMALOG100 UNIT/1 SUB-Q; +ISOSORBIDE MONO30 MG PO; +LANTUS100 UNITS/ SUB-Q
--- OUTSIDE RECORDS SUMMARY | 2019-10-02 02:56 | XMS ---
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 Spray Gun 02/17/2019-Current PHONE: [phone] ROSLYN GRAHAM [facility] PHONE: Unknown KARL BHAKTA [facility] Current PHONE: Unknown Dimple Don Primary Care 02/17/2019-Current PHONE: [phone] Tyler Washburn Current MD PHONE: Unknown jacquie Case or Underwriting Director Current PHONE: Unknown Nasreen Marin Current PHONE: Unknown Guidelines Source: Luis Fernando Hines Guidelines Date: 09/07/2019 Care Coordination: Has\T\nbsp;received\T\nbsp;mental health services with [facility].\T\nbsp; Please contact [facility] with mental health\T\nbsp;concerns.\T\nbsp; Sabino/Abundio Arndt: [phone]\T\nbsp; John: [phone]. Care History Medical/Surgical 10/01/2019 [facility] - Patient is currently established with [facility]. If patient is seen in the ED during business hours. Please contact [facility] at [facility]. Care Recommendation: If this patient has had 5 or more Emergency Department visits in the last 12 months.\T\nbsp; Patient will require education on the scope and purpose of the ED as an acute care provider not a Primary Care Provider and should not be utilized for chronic conditions.\T\nbsp; These are guidelines and the provider should exercise clinical judgment when providing care. E.D. VISIT COUNT (12 MO.) 2 [facility] 3 [facility]. TOTAL 5 NOTE: Visits indicate total known visits. ED/UCC VISIT TRACKING (12 MO.) 10/02/2019 00:50 [facility] TYPE: Emergency COMPLAINT: - NAUSEA/VOMITING 10/01/2019 10:44 [facility] [place] TYPE: Emergency DIAGNOSES: - Encounter for other specified aftercare - WOUND CHECK 09/29/2019 23:26 [facility] [place] TYPE: Emergency COMPLAINT: - VOMITING DIAGNOSES: - Other group home (current) drug therapy - Allergy status to other antibiotic agents status - Heart failure, unspecified - Chronic kidney disease, unspecified - Allergy status to sulfonamides status - Latex allergy status - Allergy status to narcotic agent status - Nausea with vomiting, unspecified - intermission coordinator (current) use of insulin - Allergy status to oth drug/meds/biol subst status - 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 - Old myocardial infarction - intermission coordinator (current) use of aspirin - Acquired absence of left leg below knee - Anemia, unspecified - Major depressive disorder, single episode, unspecified - 1 Hyp hrt \T\ chr kdny dis w hrt fail and stg 09-22/unsp chr kdny - Anxiety disorder, unspecified 09/06/2019 17:58 [facility] [place] TYPE: Emergency DIAGNOSES: - Cellulitis of abdominal wall - skin infection 04/13/2019 12:42 [facility] TYPE: Emergency COMPLAINT: - SWOLLEN RIGHT LOWER LEG DIAGNOSES: - Presence of coronary angioplasty implant and graft - Allergy status to narcotic agent status - Allergy status to analgesic agent status - Chronic kidney disease, unspecified - Anxiety disorder, unspecified - Major depressive disorder, single episode, unspecified - Allergy status to sulfonamides status - Heart failure, unspecified - Gangrene, not elsewhere classified - Old myocardial infarction - Pain in right leg - Latex allergy status - 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 - 1 Hyp hrt \T\ chr kdny dis w hrt fail and stg 09-22/unsp chr kdny - Other long term care pharmacist (current) drug therapy - Sepsis, unspecified organism Sepsis, u - Allergy status to other antibiotic agents status - Hyperkalemia - intermission coordinator (current) use of insulin INPATIENT VISIT TRACKING (12 MO.) 09/08/2019 00:59 [facility] TYPE: Cardiology DIAGNOSES: - Non-ST elevation (NSTEMI) myocardial infarction - Shortness of breath - Non-prs chronic ulcer of skin of sites w fat layer exposed - Non-pressure chronic ulcer of skin of sites w unsp severity - 1 Type 2 diabetes mellitus with other specified complication - Local infection of the skin and subcutaneous tissue, unsp - Chest pain, unspecified - Other stimulant abuse, in remission - 1 Chronic kidney disease, stage 3 (moderate) - Athscl heart disease of 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
== END 2019-10-02 04:50 | disposition home or self-care (01) ==
LOC: ED 00:49
DX: R10.31 Right lower quadrant pain (principal); R10.10 Upper abdominal pain, unspecified; I11.0 Hypertensive heart disease with heart failure; I50.9 Heart failure, unspecified; E11.9 Type 2 diabetes mellitus without complications; F32.9 Major depressive disorder, single episode, unspecified; F41.9 Anxiety disorder, unspecified; Z88.2 Allergy status to sulfonamides; Z91.040 Latex allergy status; Z88.8 Allergy status to other drugs, medicaments and biological substances; Z88.1 Allergy status to other antibiotic agents; Z88.6 Allergy status to analgesic agent; Z88.5 Allergy status to narcotic agent; Z79.899 Other long term (current) drug therapy; Z79.82 Long term (current) use of aspirin; Z79.4 Long term (current) use of insulin
CPT/HCPCS: 36415; 74176; 80053; 81001; 83605; 83690; 85025; 96361; 96374; 96375; 99284-25; J2405; J3010; J7030

== ENCOUNTER 2020-10-25 23:51 | Emergency (ER) | payer MEDICARE, OTHER ==
[~2020-10-25] VITALS: Ht 177.8 cm; Wt 105.7 kg
[~2020-10-25 23:51] MED LIST changes: +DAILY VITE1 EACH PO; -MULTIVITAMINS1 EAC7 PO
--- OUTSIDE RECORDS SUMMARY | 2020-10-25 23:54 | XMS ---
PreManage Notification: ADAM HINTON Security Forensic Examiner Events No recent Security Events currently on file CRITERIA MET - [facility] - PDMP CARE PROVIDERS SHILA ZAPIEN Internal Medicine Current PHONE: Unknown Maribel Burrows Community Health Worker 10/05/2019-Current PHONE: [phone] Angel Joseph DO [facility] Current PHONE: [phone] FIONA REAL Internal Medicine: Pulmonary Disease 10/01/2019-Current PHONE: Unknown Dimple Don Special Client Bus Driver/Learning Designer 10/20/2020-Current PHONE: [phone] Guidelines Source: [facility] Guidelines Date: 09/07/2019 Care Coordination: Has\T\nbsp;received\T\nbsp;mental health services with [facility].\T\nbsp; Please contact [facility] with mental health\T\nbsp;concerns.\T\nbsp; [facility]: [phone]\T\nbsp; [place]: [phone]. Care History Medical/Surgical 10/02/2019 [facility] - PATIENT IS NO LONGER ESTABLISHED WITH DR JAIMES-PCP. - CHW CALLED PATIENT TO HELP PATIENT ESTABLISH CARE WITH ANOTHER PROVIDER- MESSAGE LEFT. E.D. VISIT COUNT (12 MO.) [address] TOTAL 3 NOTE: Visits indicate total known visits. ED/UCC VISIT TRACKING (12 MO.) 10/25/2020 23:52 [facility] [place] TYPE: Emergency COMPLAINT: - CONSTIPATION 01/23/2020 11:54 [facility] [place] TYPE: Emergency DIAGNOSES: - Hyperglycemia, unspecified - Viral infection, unspecified - ELEVATED BLOOD SUGAR/POSSIBLE COVID EXPOSURE - ELEVATED BLOOD SUGAR 11/06/2019 13:59 [facility] OR TYPE: Emergency DIAGNOSES: - OPEN SORES, LUMPS, FEVER - Non-pressure chronic ulcer of skin of other sites with unspecified severity INPATIENT VISIT TRACKING (12 MO.) No inpatient visits to display in this time frame [email or web address]
[2020-10-26] MEDS ORDERED: OXYCODONE HCL5 MG PO (00:06)
[2020-10-26] MEDS ORDERED: AZELASTINE137 MCG/0. NAS (00:07)
[2020-10-26] MEDS ORDERED: TRESIBA FL200 UNIT/1 SUB-Q (00:08)
[2020-10-26] MEDS ORDERED: TRAZODONE HCL50 MG PO (00:08)
== END 2020-10-26 02:19 | disposition home or self-care (01) ==
LOC: ED 23:51
DX: K59.00 Constipation, unspecified (principal); R33.9 Retention of urine, unspecified; I11.0 Hypertensive heart disease with heart failure; I50.9 Heart failure, unspecified; E11.9 Type 2 diabetes mellitus without complications; I25.2 Old myocardial infarction; Z87.891 Personal history of nicotine dependence; Z79.4 Long term (current) use of insulin; Z79.899 Other long term (current) drug therapy; Z88.2 Allergy status to sulfonamides; Z91.040 Latex allergy status; Z88.1 Allergy status to other antibiotic agents; Z88.8 Allergy status to other drugs, medicaments and biological substances
CPT/HCPCS: 80053; 81001; 85025; 87077; 87088; 87186; 99283

== ENCOUNTER 2020-12-21 07:50 | Inpatient (IN) | payer MEDICARE, OTHER ==
[~2020-12-21] VITALS: Ht 177.8 cm; Wt 152.2 kg
[~2020-12-21 07:50] MED LIST changes: +AZELASTINE137 MCG/0. NAS; -DAILY VITE1 EACH PO; +FLUTICASONE PRO16 GM NAS; +MULTIVITAMINS1 EAC7 PO; +OXYCODONE HCL5 MG PO; +TRAZODONE HCL50 MG PO; +TRESIBA FL200 UNIT/1 SUB-Q
--- OUTSIDE RECORDS SUMMARY | 2020-12-21 07:52 | XMS ---
PreManage Notification: ADAM HINTON Security Bulk Plant Operator Events No recent Security Events currently on file CRITERIA MET - Group Notification - [facility] - Has Care Guidelines - PDMP CARE PROVIDERS SHILA ZAPIEN Internal Medicine Current PHONE: Unknown Maribel Burrows Community Health Worker 10/05/2019-Current PHONE: [phone] Angel Joseph DO [facility] Current PHONE: [phone] FIONA REAL Internal Medicine: Pulmonary Disease 10/01/2019-Current PHONE: Unknown Dimple Don Public Relations Account Executive/Sterile Instrument Technician 10/20/2020-Current PHONE: [phone] Guidelines Source: [facility] Guidelines Date: 09/07/2019 Care Coordination: Has\T\nbsp;received\T\nbsp;mental health services with [facility].\T\nbsp; Please contact [facility] with mental health\T\nbsp;concerns.\T\nbsp; [place]: [phone]\T\nbsp; [place]: [phone]. Care History Medical/Surgical 10/02/2019 [facility] - PATIENT IS NO LONGER ESTABLISHED WITH DR JAIMES-PCP. - CHW CALLED PATIENT TO HELP PATIENT ESTABLISH CARE WITH ANOTHER PROVIDER- MESSAGE LEFT. E.D. VISIT COUNT (12 MO.) [address] TOTAL 3 NOTE: Visits indicate total known visits. ED/UCC VISIT TRACKING (12 MO.) 12/21/2020 07:51 [facility] TYPE: Emergency COMPLAINT: - STOMACH PAIN, SHORTNESS OF BREATH 10/25/2020 23:52 [facility] TYPE: Emergency COMPLAINT: - CONSTIPATION DIAGNOSES: - Personal history of nicotine dependence - Allergy status to sulfonamides - Old myocardial infarction - Heart failure, unspecified - Hypertensive heart disease with heart failure - alf (current) use of insulin - Retention of urine, unspecified - Latex allergy status - Allergy status to other antibiotic agents - Constipation, unspecified - Allergy status to other drugs, medicaments and biological substances - Other buttermaker (current) drug therapy - Type 2 diabetes mellitus without complications 01/23/2020 11:54 [facility] OR TYPE: Emergency DIAGNOSES: - Hyperglycemia, unspecified - Viral infection, unspecified - ELEVATED BLOOD SUGAR/POSSIBLE COVID EXPOSURE - ELEVATED BLOOD SUGAR INPATIENT VISIT TRACKING (12 MO.) No inpatient visits to display in this time frame [id number]
[2020-12-21] MEDS ORDERED: POTASSIUM CHLO10 ME2 PO (13:25)
[2020-12-21] MEDS ORDERED: DEXILANT60 MG PO (13:25)
[2020-12-21] MEDS ORDERED: MOVANTIK25 MG PO (13:26)
[2020-12-21] MEDS ORDERED: ATORVASTATIN CA80 MG PO (13:26)
[2020-12-21] MEDS ORDERED: METOPROLOL SUC100 MG PO (13:27)
[2020-12-21] MEDS ORDERED: VENLAFAXINE HC150 MG PO (13:27)
[2020-12-21] MEDS ORDERED: ALLOPURINOL300 MG PO (13:28)
--- NOTE | 2020-12-21 13:30 | NUR ---
PATIENT ARRIVED TO CCU ROOM 128 WITH GANTRY RIGGER AND ED NURSE RE AND RT CECIL AT THE BEDSIDE. 5 STAFF MOVED PATIENT FROM STRETCHER TO THE BED. PATIENT TOLERATED WELL.
[2020-12-21] MEDS ORDERED: NOVOLOG FL100 UNIT/1 SUB-Q (13:48)
--- NOTE | 2020-12-21 13:49 | EKG ---
[facility] [address] [facility] [place] [address] Signed Normal sinus rhythm Rightward axis Low voltage QRS Incomplete right bundle branch block Cannot rule out Anteroseptal infarct (cited on or before 20-DEC-2016) Abnormal ECG When compared with ECG of 13-APR-2019 13:21, Incomplete right bundle branch block has replaced Right bundle branch block Confirmed by JAZLYN SMITH DO ([id number]) on 12/21/2020 1:49:46 PM Electronically Signed By: JAZLYN SMITH DO 12/21/20 1349 PATIENT NAME: ADAM HINTON Electrocardiogram DATE OF : 72 PHYSICIAN: JAZLYN SMITH DO REPORT #: [id number] REPORT IS CONFIDENTIAL AND NOT TO BE RELEASED WITHOUT AUTHORIZATION
--- NOTE | 2020-12-21 14:00 | NUR ---
PATIENT TURNED AND CLEANED UP WHILE ALL STAFF WERE AT THE BEDSIDE. PATIENT HAD A BM PRESENT WHEN TRANSFERRING FROM THE GURNEY TO THE BED. TURNED PATIENT AND CLEANED. PICTURES TAKEN OF SKIN ISSUES AND PLACED IN THE CHART. NEW GOWN PROVIDED. NEW DRESSINGS APPLIED TO NOTED SKIN ISSUES. PATIENT HAS A REDDEND COCCYX THAT HAS SOME OPEN EXORIATED AREAS. COCCYX ADHESIVE FOAM PAD PLACED. NO OTHER SKIN ISSUES NOTED ON PATIENTS BACK SIDE. PATIENTS LEFT THUMB/HAND AREA HAS A NOTEABLE ABRASION AT THE SITE. PLACED A SMALL FOAM PAD ON SITE. SCAB PRESENT NEAR UMBILLICUS. SCRATCHES NOTED ALL OVER PATIENTS ABD. 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 BILATERAL PANNUS REGION IS VERY RED, EXCORIATED, AND SEVERAL AREAS OF BLEEDING NOTED IN PANNUS REGION. REGION IS VERY TENDER TO THE TOUCH. BLEEDING NOTED IN VAGINAL REGION. PER REPORT PATIENT HAD A LACERATION TO THE CLITORIS DURING LIMA INSERTION WITH BLOODY DISCHARGE NOTED. PATIENTS SKIN IS VERY FRAGILE. PATIENT IS ALSO VERY SWOLLEN CLEAR UP TO HER ARMPITS. PATIENTS PANNUS/VAGINBAL AREA IS ALSO VERY SWOLLEN. CATHETER WAS PLACED IN THE ED BY MULTIPLE RNS ASSIST.
--- NOTE | 2020-12-21 14:30 | NUR ---
PATIENT RESTING IN BED AT THIS TIME. PITEO STOPPED BY TO SEE PATIENT AND UPDATED ON PATIENTS STATUS. ASSESSMENT COMPLETED. MEDICATIONS GIVEN. PATIENT AGREEABLE TO PLAN OF CARE AT THSI TIME. PATIENTS SPO2 AT 2L ON NC WITH SPO2 97%. PATIENT HAS CLEAR YELLOW URINE NOTED IN CATHETER.
--- NOTE | 2020-12-21 15:51 | NUR ---
PATIENT AWAKE IN BED. NOTED ON RECENT LABS THAT MARIO BLOOD SUGAR WAS 56 PATIENT ALREADY EATING LUNCH AT THIS TIME BUT BLOOD SUGAR TAKEN. PATIENTS BLODO SUGAR WAS 60 ON OUR MONITOR. GAVE APPLE JUICE. WILL RECHECK SHORTLY. PATIENT IS AWAKE AND ORIENTED AND EATING HER LUNCH. WILL CONTINUE TO CLOSELY MONITOR.
[2020-12-21] MEDS ORDERED: FERROUS SULFAT324 MG PO (16:36)
--- NOTE | 2020-12-21 16:55 | NUR ---
CALLED MD TO UPDATE THAT PATIENTS BLOOD SUGAR NOTED TO BE LOW ON LABS AND CHECKED A BEDSIDE GLUCOSE. PATIENTS BLODO SUGAR 60. PATIENT GIVEN JUICE AND ATE 1/2 A SANDWICH. ON RECHECK PATIENTS BLOOD SUGAR CAME UP A LITTLE. WAITED ANOTHER 15 MINUTES AND CHECKED AGAIN AND BLOOD SUGAR DROPPED A LITTLE AGAIN. PATIENT IS ALERT BUT DROWSY. PATIENT OFFERED ANOTHER JUICE AND GRANOLA BAR. PER MD START ON A LOW MAINTANCE FLUIDS WITH SUGAR. SEE NEW ORDERS PER MD.
--- NOTE | 2020-12-21 18:08 | NUR ---
PT RESTING IN BED. RECHECKED BLOOD GLUCOSE BEFORE DINNER AND READING WAS 83. WOKE PT TO EAT. DROWSY BUT EASY TO AROUSE PT STATES "SHE IS WORRIED ABOUT HER DAUGHTER" ELEVATED BED TO 51 DEGREES. PT SITTING IN BED EATING DINNER WITH HELP FROM STUDENT NURSE. NO OTHER CONCERNES AT THIS TIME. WILL CONTINUE TO MONITOR CLOSELY.
--- NOTE | 2020-12-21 19:30 | NUR ---
REPORT RECEIVED FROM EVELYNE. PT RESTING IN BED WITH EYES CLOSED. RESTING HR 90'S.
--- NOTE | 2020-12-21 19:57 | NUR ---
PT INC LIQUID STOOL, ATTEMPTED TO CLEAN PT, HOB LOWERED TO CLEAN PT. PT ABLE TO TOLERATE APPROX 10 MINUTES THEN STARTED SAYING SHE CANT BREATHE AND SHE NEEDS TO GET UP, HOB RAISED. PTS SATS STARTED TO DROP TO 80'S, BIPAP PLACED BACK ON PT AND SPO2 UP TO 100%, PT QUICKLY BECAME RELAXED WITH UNLABORED RESP. WILL LET PT RECOVER ON BIPAP FOR A WHILE AND THEN REATTEMPT TO CLEAN PERIAREA.
--- NOTE | 2020-12-21 20:05 | NUR ---
PT SWITCHED FROM BIPAP TO 2L/NC, SPO2 REMAINS 99%. PT STATES SHE NO LONGER FEELS SOB, STATES SHE HAS ANXIETY AND "PANIC ATTACKS" AND THAT SHE HAD ONE WHILE SHE WAS DOWN BEING CLEANED.
--- NOTE | 2020-12-21 20:22 | NUR ---
80MG IV LASIX GIVEN, PT CONT TO WEAR 2L/NC 99% SPO2, RR 18, RESP APPEAR UNLABORED. PT DOES HAVE FREQUENT NONPRODUCTIVE SOUNDING COUGH AT THIS TIME.
--- NOTE | 2020-12-21 21:05 | NUR ---
IN WITH 3 STAFF TO CLEAN AN REPOSITION PT. PT VERY RELUCTANT, TEARFUL AND ANXIOUS AND STATES "THIS IS WHY I WANTED TO GO TO [facility], WHERE MY DOCTOR KNOWS I DONT DO WELL WITH A ROOM FULL OF PEOPLE DOING THINGS TO ME". PLAN TO CLEAN PATIENT AND IMPORTANCE OF PREVENTING SKIN BREAKDOWN EXPLAINED TO PT, PT EVENTUALLY AGREES TO ALLOW STAFF TO CLEAN HER. BIPAP PLACED TO HELP PREVENT SOB WITH HOB DOWN. PT TOLERATED THIS WITHOUT PROBLEMS, NO RESP DISTRESS. AFTER PT REPOSITIONED UP IN BED BIPAP REMOVED AND PT ONTO 2L/NC. COCCYX REDDENED, CLEANED OF STOOL, OLD ALLEVYN REMOVED AND NEW ONE PLACED. DESENEX POWDER APPLIED TO PANNUS AND SAMIA AREA.
--- NOTE | 2020-12-21 21:30 | NUR ---
IVF STOPPED PER DR SMITH, GIVEN SNACK AND BLOOD SUGAR CHECKED-105.
--- NOTE | 2020-12-21 22:20 | NUR ---
PT REQUESTING PAIN MEDICINE, 10MG OXYCODONE GIVEN.
--- NOTE | 2020-12-22 | NUR ---
IN TO DO ASSESSMENT. PT HAS BEEN SNACKING ON VARIOUS THINGS OVER THE LAST COUPLE OF HOURS AND BLOOD SUGARS ACCORDING TO HER HOME MACHINE ARE IN THE 90'S. CURRENTLY WEARING 2L/O2 WITH SPO2 99%. URINE OUTPUT SINCE LASIX HAS BEEN APPROX 100ML/HR.
--- NOTE | 2020-12-22 01:28 | NUR ---
PT AWAKE, SITTING UP IN BED WATCHING PHONE AND TV. 98% ON ROOM AIR, SNACKING FREQUENTLY TO MAINTAIN BLOOD SUGARS 100-95.
--- NOTE | 2020-12-22 03:34 | NUR ---
PT CALLS FOR MORE ICE WATER. AGREES TO WEAR BIPAP NOW THAT SHE IS GOING TO TRY TO SLEEP.
--- NOTE | 2020-12-22 03:46 | NUR ---
PT NOT ABLE TO TOLERATE BIPAP. CALLS AFTER WEARING IT FOR A MINUTE TO SAY "ITS BLOWING TOO MUCH AIR". BIPAP REMOVED. SPO2 96% ON ROOM AIR.
--- NOTE | 2020-12-22 04:30 | NUR ---
PT CONTINUES TO BE AWAKE AND CALL FREQUENTLY FOR THINGS LIKE SIPS OF WATER, FINDING HER PHONE ON HER LAP, FINDING HER TEETH IN HER BED, SPILLING WATER ON HERSELF, ASKING IF HER CATHETER IS WORKING, ASKING FOR ICE PACK FOR NECK. STILL DOES NOT WANT TO WEAR BIPAP. MAINTAINING SATS ON ROOM AIR HIGH NINETIES. DENIES SOB. ENCOURAGED PT TO TRY TO SLEEP.
--- NOTE | 2020-12-22 06:28 | NUR ---
PT ASSISTED WITH REPOSITIONING. FRESH ICE PACK APPLIED TO NECK AND CHEST FOR COMFORT SHE STATES SHE FEELS HOT. TEMP CHECKED IS 98.2. PT REPORTS FEELING A COUPLE OF TIMES THAT HER CATHETER WAS NOT WORKING, URINE DRAINING FROM LIMA. WILL ATTEMPT TO LIE HOB DOWN FOR A WHILE THERE IS A LOT OF PRESSURE ON PTS LOWER ABD WHEN SHE SITS UP TO SEE IF IT ALLEVIATES THE FEELING. PT AGREES TO WEAR BIPAP WHILE LYING WITH HOB LOWER, SETTINGS TURNED DOWN, NOW 14/5 FIOW AT 40%. PT STATES SHE CAN TOLERATE THE BIPAP AT THESE SETTINGS.
--- NOTE | 2020-12-22 06:48 | NUR ---
PT TAKES BIPAP OFF AND ATTEMPTS TO GO TO SLEEP. 93% ON ROOM AIR. 2L/O2 APPLIED AND SATS UP TO 97%.
--- NOTE | 2020-12-22 09:01 | NUR ---
IN PATIENT'S ROOM FOR ASSESSMENT, VITALS, MEDS. PATIENT STATES THAT HER BLOOD SUGAR IS LOW, SHE HAS HER OWN CBG MONITORING DEVICE ON HER LEFT ARM. PT'S BLOOD SUGAR READING 83 ON HER OWN MONITOR. OUR CBG MONITOR READING 74. PT PROVIDED WITH APPLE JUICE TO WHICH SHE IS ABLE TO DRINK. PT THEN STATES SHE IS UNCOMFORTABLE AND NEEDS REPOSITIONING IN BED. PT IS REPOSITIONED ABOUT 5 TIMES AND STILL NOT ABLE TO GET TO A POSITION OF COMFORT. PT VERY FRUSTRATED IN GENERAL, SAYING THINGS SUCH , "THIS IS WHY I WANT TO BE AT [facility], WITH MY OWN DOCTORS. HAS ANYONE CONTACTED MY HEART AND KIDNEY DOCTORS? THIS IS A KIDNEY AND HEART ISSUE, AND YOU GUYS HERE DON'T KNOW HOW TO HANDLE THESE PROBLEMS LIKE THEY DO." LISTENED TO PATIENT AND ATTEMPTED TO REASSURE HER THAT WE ARE DOING EVERYTHING THAT WE ARE CAPABLE OF DOING TO HELP HER CURRENT STATE. ENCOURAGED PATIENT TO CONTINUE EXPRESSING HER CONCERNS TO THIS RN, I AM HERE TO BE HER ADVOCATE AND HELP HER IN EVERY WAY POSSIBLE. PATIENT WANTING TO USE A VIKA LIFT TO BE MOVED AROUND. WILL PLACE A VIKA LIFT BLANKET UNDER HER AT SOME POINT. PATIENT GIVEN HER PRN OXYCODONE FOR 8/10 PAIN. PT ATTEMPTING TO EAT HER BREAKFAST, HOWEVER THE CREAM OF WHEAT WAS TOO THICK AND UNABLE TO BE EATEN PER THE PATIENT. WILL RE-CHECK CBG.
[2020-12-22] MEDS ORDERED: MIRALAX17 GM PO (09:27)
--- NOTE | 2020-12-22 09:45 | NUR ---
v/s and I&Os done and recorded. breakfast given. gown changed. human resources operations director assisted RN in repositioning pt. in her bed. no other needs at this time.
--- NOTE | 2020-12-22 10:00 | NUR ---
DR. SMITH IN ROOM WITH PATIENT AT THIS TIME.
--- NOTE | 2020-12-22 10:11 | NUR ---
SPOKE WITH PATIENT IN ROOM. PATIENT STATES SHE LIVES WITH TEENAGE NIHARIKA. SHE HAS A STATE CAREGIVER FOR 32/HOURS WEEK AND SHE HAS ANOTHER CAREGIVER SHE PAYS DIRECTLY. STATES SHE PRETTY MUCH SOMEONE THERE ALL THE TIME. SHE STATES THERE IS CEMENT ALL THE WAY TO THE BACK DOOR, SO IT IS HANDICAP ACCESSIBLE. SHE STATES THE DOORS WERE WIDENED. SHE STATES THERE IS A ROLL-IN SHOWER. SHE STATES SHE MOSTLY IS BEDRIDDEN AND USING THE W/C. SHE STATES SHE WAS ABLE TO TRANSFER SELF, BUT THE LAST FEW WEEKS SHE HAS NOT BEEN ABLE TO. SHE HAS A NEBULIZER, BUT DOESN'T USE IT. SHE STATES SHE HAD OXYGEN IN THE PAST. SHE STATES SHE IS IN THE PROCESS OF GETTING NEW WHEELCHAIR THROUGH [facility]. SHE STATES SHE THINKS SHE MIGHT NEED A VIKA AND HOSPITAL BED AT THIS POINT. SHE STATES HER GREENS PICKER AT [facility] IS MINDY ANDERSON. SHE IS OK IF I TALK WITH HER ABOUT NEEDS FOR DISCHARGE. [facility] SHE USES [facility]SP[facility] FOR APPOINTMENTS. SHE STATES IF SHE GOES TO THE STORE SHE USES THE WHEELCHAIR TAXI. SHE DOES NOT DRIVE. HER CAREGIVER/FAMILY DO SHOPPING. SHE HASN'T BEEN GOING OUT MUCH SINCE COVND. SHE STATES HER PREFERNCE FOR DISCHARGE IS TO GO HOME. SHE STATES SHE WILL NOT CONSIDER ANY FACILITY. 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 SHE FEELS SAFE TO RETURN HOME AT DISCHARGE WHEN SHE FEELS BETTER. CALLED [facility] AND LEFT MESSAGE FOR MINDY ANDERSON. CALLED [facility], THEY STATE PATIENT WAS WORKING ON W/C AND RECEIVED PARTS IN FEBRUARY. SHE IS CURRENTLY WORKING ON GETTING A VIKA.
--- NOTE | 2020-12-22 11:38 | NUR ---
PATIENT GIVEN BED BATH. FULL FRONT COMPLETE, FOLDS OF GROINS, PANNUS, UNDERARMS CLEANED AND PLACED DESENEX POWDER UNDERNEATH. PT HAS OPEN AREAS IN GROIN FOLDS AND UNDER LEFT BREAST. PT'S ABDOMEN IS SO TIGHT WITH EDEMA, AND RED IN THE LOWER AREAS. PT HAS A PANNICULECTOMY IN APRIL OF 2020. 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 PT HAD HER RIGHT AKA AROUND [id number] SHE STATES. BIPAP PLACED ON PATIENT WHEN ATTEMPTING TO CHANGE HER LINEN UNDER HER AND PLACE A GREEN LIFT SHEET. PT UNABLE TO TOLERATE LAYING FLAT AND ALSO C/O HER MOUTH BEING SO DRY. PATIENT NOT ABLE TO FINISH HER LINEN CHANGE AT THIS TIME. PT'S HOB ELEVATED BACK UP, TAKEN OFF BIPAP, AND ON 3 L NC. THIS WHOLE TIME, SP02 HAS BEEN >90%, AND CURRENTLY AROUND 99% ON OXYGEN. PT ONLY GIVEN OXYGEN PER HER REQUEST DURING THIS ACTIVITY. PT GIVEN A MINT TO ATTEMPT TO HELP KEEP HER MOUTH MORE MOIST. PT ALSO GIVEN SIPS OF WATER AND HER DIET SODA. PT TOLD THAT WE WILL GIVE HER 10 MINUTES OR SO TO REGAIN HER COMPOSURE BEFORE ATTEMPTING TO FINISH LINEN CHANGE.
--- NOTE | 2020-12-22 13:36 | NUR ---
PATIENT CONTINUES TO REST INB ED. PATIENT'S HAIR BRAIDED FOR HER. SODIUM RE-DRAWN AND SENT TO LAB. PT'S IV IN RIGHT FOREARM STILL PULLS BACK BLOOD WELL. 120 MG IV LASIX GIVEN. PATIENT REMAINS ON ROOM AIR AT THIS TIME AND SP02 IS 95%. PT STATES HER PAIN IS BETTER RIGHT NOW, CURRENTLY A 4/10. PT HAS HER LUNCH IN FRONT OF HER BUT ISN'T HUNGRY ENOUGHT TO EAT AT THIS TIME. PT WILL HAVE A DR. ESPINOSA CONSULT TODAY PER HER VENTRAL HERNIA. PATIENT REMAINS ON IVF OF D5 NS AT 50 ML/HR. IV ROCEPHIN AND LINZELOID BEING GIVEN. WOUND CONSULT TO ALSO TAKE PLACE. WILL CONTINUE TO MONITOR.
--- NOTE | 2020-12-22 13:40 | NUR ---
PATIENT WILL BE TRANSFERRED TO MED/SURG W/O TELEMETRY TO ROOM 115. WILL CALL AND GIVE REPORT TO RN. PATIENT RESTING. PT AWARE OF TRANSFER.
--- NOTE | 2020-12-22 14:48 | NUR ---
PT APPEARS TO BE SLEEPING AT THE MOMENT. CCU STAFF REQUESTED I NOT DISTURB PT AT THIS TIME. WILL FOLLOW NEEDED
--- NOTE | 2020-12-22 14:50 | NUR ---
REPORT GIVEN TO MERVAT CLEMENT ON MED/SURG AND PATIENT TAKEN TO ROOM 117. ALL BELONGINGS TAKEN WITH PATIENT.
--- NOTE | 2020-12-22 15:36 | NUR ---
PT TO [facility] VIA BED ORIENTED TO ROOM. ASSISTED TO REPOSITION PER REQUEST. FLUIDS AND NEEDED ITEMS AT BEDSIDE, CALL LIGHT IN LAP. PT AGREES SHE HAS EVERYTHING SHE NEEDS.
--- NOTE | 2020-12-22 16:27 | NUR ---
PT IS SEEN FOR A WOUND CONSULT OF MULTIPLE AREAS. LEFT BREAST WOUND HAS RESOLVED. LEFT STUMP WOUND IS THE RESULT OF SCRATCHING/RUBBING THE AREA DUE TO PHANTOM ITCH. THE AREA IS A PARTIAL THICKNESS SKIN LOSS ABRASION. THE AREA MEASURES 6.5CM X 7CM X 0.1CM. THE AREA IS CLEANSED WITH WATER AND GAUZE. THE EDGES ARE INTACT, NO UNDERMINING OR TUNNELING PRESENT. THERE IS A SCANT AMOUNT OF SEROSANGUINOUS EXUDATE. THE PERIWOUND SKIN IS INTACT. THE PT REPORTS MINIMAL PAIN. THE WOUND IS DRESSED [employer] ADVANCED SKIN PREP, MEDIHONEY, AND AN ADHESIVE FOAM. THE LEFT HAND WOUND IS A PARTIAL THICKNESS ABRASION. THE BASE OF THE WOUND HAS SOME SLOUGH, OTHERWISE IS CLEAN NON-GRANULATING TISSUE. THE AREA IS CLEANSED WITH WATER AND GAUZE. THE EDGES OF THE WOUND ARE INTACT, NO UNDERMINGING OR TUNNELING. THERE IS PURULENT EXUDATE WHEN DRESSING IS REMOVED. THE PERIWOUND SKIN IS INTACT. THE PT REPORTS NO PAIN. THE AREA IS DRESSED WITH MEDIHONEY AND AN ADHESIVE FOAM DRESSING. THE PT HAS A WOUND REPORTED ON HER COCCYX, BUT DUE TO THE PT'S CURRENT CONDITION IT IS DECIDED THAT IT WOULD BE BEST IF I COME BACK TOMORROW WHEN THEY ARE MOVING THE PT TO [facility]GET[facility].
--- NOTE | 2020-12-22 16:34 | NUR ---
SUPERVISOR ROVING IN TO SEE PT. PT DISTRESSED ABOUT ROLLING OVER FOR RN TO SEE COCCYX, RN AGREES TO COME TOMORROW WHEN PT IS ROLLING FOR OTHER CARES TO BE DONE SO ALL CAN BE DONE AT ONCE.
--- NOTE | 2020-12-22 18:42 | NUR ---
PATIENT SITTING UP IN BED WORKING ON DINNER. VITALS AND I&O'S CHARTED. CALL LIGHT IN REACH. NO FURTHER NEEDS AT [place] [place].
--- NOTE | 2020-12-22 19:34 | NUR ---
SHIFT REPORT FROM NURSE CLEMENT. PT ATTEMPTING TO EAT DINNER ALTHOUGH REPORTS NO APPETITE. WANTS TRAY TAKEN AWAY AND WILL JUST EAT PUDDING. PT DENIES FURTHER NEEDS AT THIS TIME. CALL LIGHT WITHIN [facility].
--- NOTE | 2020-12-22 22:48 | NUR ---
IN ROOM TO ADMINISTER ONE TIME DOSE OF LASIX PER ORDERS. USED INFUSION PUMP AND INFUSED A PIGGYBACK OVER 7 MINUTES WITH 14ML NS FLUSH OVER 7 MINUTES. PT IS INTERMITTENTLY AWAKE, DROWSY SLEEPING LIGHTLY. BG MONITOR READS 110 AT THIS TIME. PT REQUEST THIS NURSE TO PUT HER HAIR UP IN PONYTAIL WHICH IS PERFORMED. NO FURTHER NEEDS AT THIS TIME. CALL LIGHT WITHIN REACH.
--- NOTE | 2020-12-23 00:43 | NUR ---
CALL LIGHT ANSWERED. PT REPORTS PAIN 8/10 IN ABDOMEN; REQUESTS PAIN MEDS. AFTER DISCUSSION WITH PT, SHE WOULD LIKE 10MG OXYCODONE AND 500MG TYLENOL AT THIS TIME WHICH IS ADMINISTERED. PT THEN HAS MANY SMALL TASK WISHES SUCH NEW GARBAGE AT BEDSIDE, FRESH WATER, FRESH BANDAGE FOR HAND LESION AND AT THE END, PT REQUESTED TO TRY WEARING HER BIPAP FOR "AWHILE". BIPAP FITTED AND PLACED ON AT THIS TIME. CALL LIGHT WITHIN REACH.
--- NOTE | 2020-12-23 01:03 | NUR ---
CALL LIGHT ANSWERED. PT REPORTS THE BIPAP IS GIVING HER A HEADACHE. BIPAP PUT IN STANDBY. PT REQUESTS PILLOW FOR UNDER HER L ARM WHICH IS PROVIDED. CALL LIGHT WITHIN REACH.
--- NOTE | 2020-12-23 02:53 | NUR ---
IN ROOM TO CHECK PT CBG MONITOR. CBG CURRENTLY 94 WHICH IS SETTING OFF PT'S LOW LIMIT. PT EATS A PUDDING TO BRING CBG UP TO "HER NORMAL RANGE". ACCORDING TO PT, SHE IS TO STAY BETWEEN 120 AND 140. THIS RN AND CHARGE REPOSITIONED IN BED. LIMA CARE PERFORMED. NEW ICE PACK PROVIDED. PT REPORTED FEELING "HOT". ORAL TEMP 98.9. CALL LIGHT WIHTIN REACH. WILL CONTINUE TO MONITOR
--- NOTE | 2020-12-23 06:56 | NUR ---
IN ROOM FOR ASSESSMENTS AND VITALS. PT IS DROWSY BUT DOES ANSWER APPROPRIATELY. URINE OUTPUT IS QS BUT LOWER THAN EXPECTED FOR LASIX DOSAGE. ABDOMEN EDEMA/ASCITES/ANASARCA REMAINS EXTREME. UPPER LOBES OF LUNGS ARE CLEAR, RLL HAS SLIGHT EXP WHEEZE. PT REPORTS PAIN IN ABDOMEN IS 8-9/10. 10MG PRN OXYCODONE GIVEN AT THIS TIME. SOME DRAINAGE FROM LEFT STUMP. BLISTERING NOTED ON LABIA. CALL LIGHT WITHIN REACH.
--- NOTE | 2020-12-23 07:34 | CONS ---
[facility] [address], [place] [address] Signed DATE OF CONSULTATION: 12/22/2020 CHIEF COMPLAINT: Generalized abdominal pain. HISTORY OF PRESENT ILLNESS: Adam is a 50-year-old obese uncontrolled diabetic, who now has bilateral leg amputations along with congestive heart failure and chronic renal insufficiency. She actually lives in an apartment with her daughter. She generally gets around the apartment fairly well. However, she was gaining weight and losing her ability to get around the apartment. Her abdomen was having generalized abdominal pain and she was using her left hand to make a fist and push down in the bed to keep herself upright. She has worn the skin then off the knuckle behind the index finger. She came to the emergency room for evaluation, was found to be anasarcic and admitted to the Internal Medicine Service. She has been on Rocephin for the urinary tract infection and some linezolid was started for the left hand with concerns of previous history of MRSA. Our wound care nurses have seen that, cleaned it and put Medihoney and a bandage over it. In addition, she had a chest x-ray and a CT scan of the abdomen and pelvis. There was concern about potential pacer wire involving a ventral hernia. Therefore, I was asked to see her with respect to the left hand and the pacer wire. PAST MEDICAL HISTORY: Osteopenia, ascites, degenerative disk disease, constipation, chronic renal insufficiency, congestive heart failure, uncontrolled diabetes, peripheral arterial disease, coronary arterial disease, depression, and anxiety. PAST SURGICAL HISTORY: Cholecystectomy, hysterectomy, bilateral [id number]-[id number]-ysur amputations, and a pacemaker around 2016. SOCIAL HISTORY: She does not smoke or drink. Dr. Mari Mcdaniel is her senior teradata developer and Dr. Shila Zapien is her primary care provider in [place], [place]. She lives in an apartment with her daughter. FAMILY HISTORY: Not reviewed. REVIEW OF SYSTEMS: I had talked to her at great length about the hand and the issue of this pacer. This is a transcutaneous pacer and the wire simply runs along the abdominal wall up over the area of the heart. Her previous pacemaker had to be removed because she had gained weight and the wires had fractured. She thinks that ventral hernia is new. Electronically Signed By: ANALISA ESPINOSA MD 12/23/20 0734 PATIENT NAME: ADAM HINTON CONSULTATION DATE OF : 72 REPORT #: [id number] PHYSICIAN: ANALISA ESPINOSA MD PCP: SHILA ZAPIEN MD REPORT IS CONFIDENTIAL AND NOT TO BE RELEASED WITHOUT AUTHORIZATION [facility] [address], [place] [address] Signed ALLERGIES: Sulfa, latex, Demerol, Cipro, methadone, ibuprofen, Vicodin. MEDICATIONS: Oxycodone, azelastine, fluticasone, insulin, potassium, Dexilant, Movantik, atorvastatin, metoprolol, venlafaxine, allopurinol, multivitamin, vitamin B12, folate, vitamin C, vitamin D, torsemide, fenofibrate, polyethylene glycol, aspirin, and sodium bicarbonate. PHYSICAL EXAMINATION: VITAL SIGNS: Blood pressure 111/92, heart rate 103, respiratory rate 20, temperature is 98.2. She is 100% on room air. She is 5 feet 10 inches tall at 152 kg. GENERAL: Adam is a 50-year-old obese female, lying supine in her hospital bed. The bed has been pushed up to 45 degrees. Her daughter is at the bedside. Adam, of course, looks quite debilitated and older than her stated age. Although she is a pretty good historian, we can see the old pacemaker site on her left chest wall, and then she has tremendous anasarca and I cannot palpate the defibrillator on her left abdominal wall. I cannot palpate the hernia. I looked at her hand and we removed the dressing and I could see the honey and it has been cleaned up and this is going to be fine. She has some surrounding erythema, but I am not convinced it is necessarily infected. I think it is all inflammatory. I think she will be fine on her current antibiotics. LABORATORY DATA: Her white blood cell count is 11.9, hemoglobin 9.4, neutrophils 80. Sodium is 121, BUN is 40, creatinine 2.32, glucose 86, total bilirubin 1.4, AST 56, ALT 19, alkaline phosphatase is 85, albumin 3.2. Her left ventricular ejection fraction from 2017 is 40% to 45%. Her urinalysis was positive. RADIOGRAPHIC STUDIES: Chest x-ray shows the pulmonary edema, the effusions, and the previous pacemaker wires and may be some pneumonia. CT scan of the abdomen and pelvis shows mesenteric edema, body wall edema, epigastric ventral hernia, with moderate ascites, but no free air, and then I can see the defibrillator on the left abdominal wall and the wire runs deep along the muscle, then up over the area of the heart. The ventral hernia simply pushed that wire a bit to the side. ASSESSMENT/PLAN: Adam is a 50-year-old significantly disabled female as described above. She generally gets all her care through our [facility] as is mary. Her current transcutaneous paced defibrillator is on her left abdominal wall and the wire runs along the muscle and up near the heart. The ventral hernia simply displaced out a bit to the Electronically Signed By: ANALISA ESPINOSA MD 12/23/20 0734 PATIENT NAME: ADAM HINTON CONSULTATION DATE OF : 72 REPORT #: [id number] PHYSICIAN: ANALISA ESPINOSA MD PCP: SHILA ZAPIEN MD REPORT IS CONFIDENTIAL AND NOT TO BE RELEASED WITHOUT AUTHORIZATION [facility] [address] [place] [id number] Signed side. It is not involved in the hernia and it is not causing her abdominal pain. Her abdominal pain is from the rather significant distention and anasarca. In addition, her left hand, she has rubbed the skin by pushing up on the bed and I do not think it is infected. It is going to heal fine. right back across the dermis with some localized wound care from our wound care nurses. At this point, there is really nothing more I can offer for her as a general surgeon, particularly at our small 25-bed critical access hospital. If she would need banding beyond what our hospitalist can provide, she would have to go to the [facility] or even the tertiary referral centers. She is well aware of this and I have discussed it with her and her daughter as well as Dr. Obrien. Otherwise, no additional general surgical input. Analisa Espinosa MD ALB/MODL /[id number] cc: MD Mari Orellana MD Copies: SHILA ZAPIEN MD, MERSHED MD ~ Electronically Signed By: ANALISA ESPINOSA MD 12/23/20 0734 PATIENT NAME: ADAM HINTON CONSULTATION DATE OF : 72 REPORT #: [id number] PHYSICIAN: ANALISA ESPINOSA MD PCP: SHILA ZAPIEN MD REPORT IS CONFIDENTIAL AND NOT TO BE RELEASED WITHOUT AUTHORIZATION
--- NOTE | 2020-12-23 09:00 | NUR ---
PT C/O 04/28 ABD PAIN. NOT YET TIME FOR OXYCODONE, TYLENOL GIVEN. MORNING MEDICATIONS GIVEN AND BUMEX DRIP NOW INFUSING. IV LASIX AND IVF DC'D BY DR SMITH. YECENIA STUDENT RN TO COMPLETE VITALS. LIMA CATHETER EMPTIED OF [address] SMIHT IN TO SEE PT.
--- NOTE | 2020-12-23 09:38 | NUR ---
PATIEHNT IS SITTING UP IN BED WATCHING TV. VITALS AND I&OS ARE DONE AND DOCUMENTED. FRESH WATER GIVEN. CALL LIGHT IS IN REACH. NO FURHTER NEEDS AT THIS TIME.
--- NOTE | 2020-12-23 10:35 | NUR ---
Attempted to see pt, she is working with PT. Will return later.
--- NOTE | 2020-12-23 10:45 | NUR ---
PT IS SEEN TO COMPLETE THE WOUND CONSULT STARTED YESTERDAY. THE PT REPORTED THAT SHE HAS A LOT OF ANXIETY WITH ROLLING AND MOVING AND WOULD RATHER WAIT UNTIL SHE WAS ALREADY BEING TURNED. THE PT HAS INCONTIENCE ASSOCIATED DERMATITIS ON THE GLUTEAL CLEFT. THE BASE OF THE WOUND IS CLEAN NON-GRANULATING TISSUE. THE EDGES OF THE WOUND ARE MACERATED, BUT NO UNDERMINGING OR TUNNELING NOTED. THERE IS A MODERATE AMOUTN OF SEROUS DRAINAGE. THE PT REPORTS PAIN WITH CLEANING AND THE APPLICATION OF [employer] ADVANCED SKIN PREP. MEDIHONEY IS APPLIED TO THE WOUND BEDS, THEN SECURED IN PLACE WITH A SACRAL DRESSING. THE PERIWOUND SKIN OF THE WOUND IS VIABLE, WITH SOME SKIN PEELING IN AREAS. THE DRESSING IS TO BE CHANGED EVERY 3-4 DAYS OR NEEDED FOR SOILED.
--- NOTE | 2020-12-23 11:00 | NUR ---
PT TURNED AND REPOSITIONED IN BED W/ ASSISTANCE OF MULTIPLE STAFF. JORI Caputo, INVESTMENT PROFESSIONAL PRESENT AND WAS ABLE TO VISUALIZE WOUNDS TO BUTTOCKS AND CHANGE ALLEVYN (SEE INVESTMENT PROFESSIONAL NOTE). PICTURE TAKEN AND ON CHART. DRAW SHEET & CHUX CHANGED. FOLDS CLEANED AND CATHETER CARE COMPLETED. POWDER APPLIED TO PANNUS. PT WEEPING IN LEFT PANNUS FOLD. PT TOLERATED TURNING POORLY, PUT ON 3 L NC WHILE HOB WAS DECREASED, RECOVERED QUICKLY ONCE HOB ELEVATED. ALLEVYN TO LEFT BKA CHANGED. CLEANSED W/ NS AND APPLIED MEDI-HONEY AND NEW ALLEVYN. PT REQUESTING PAIN MEDICATION FOR 8/10 ABD PAIN.
--- NOTE | 2020-12-23 12:00 | NUR ---
BG WITHIN RANGE 139, DOES NOT REQUIRE SS. 10 MG OXYCODONE GIVEN FOR 8/10 ABD PAIN. DIETARY IN WITH LUNCH TRAY. NO OTHER NEEDS AT THIS TIME. CALL LIGHT IN REACH.
--- NOTE | 2020-12-23 12:12 | NUR ---
PT ALERT, ORIENTED AND SITTING UP IN BED WATCHING TV. PT FEELS INFORMED, AND ALL QUESTIONS ASKED ANSWERED. GAVE PT A G.POST A ND SHE REQUESTED PRAYER. WILL FOLLOW NEEDED
--- NOTE | 2020-12-23 18:55 | NUR ---
PT REPORTING MILD NAUSEA WHILE EATING DINNER, 4 MG OF ZOFRAN GIVEN.
--- NOTE | 2020-12-23 19:00 | NUR ---
PT REQUESTING PAIN MEDICATION. 10 MG OXYCODONE GIVEN. BG OF 94, DID NOT REQUIRE SS INSULIN. VS STABLE. PT REPORTS SHE WAS REPOSITIONED BY AIDE PRIOR TO DINNER BUT REPOSITIONED HER SELF SHE WAS UNABLE TO EAT TURNED TO SIDE. PT CONTINUING TO WORK ON DINNER. BUMEX DRIP INFUSING AT 0.5 MG/HR. CALL LIGHT IN REACH.
--- NOTE | 2020-12-23 20:03 | NUR ---
RECEIVED REPORT FROM DAY SHIFT RN. PATIENT IS RESTING IN BED. PATIENT DENIES ANY NEEDS. CALL LIGHT IN REACH.
--- NOTE | 2020-12-23 21:33 | NUR ---
PT CALLED, WANTED PILLOWS REPOSITIONED UNDER HER HEAD. NOTED PILLOW CASES WET, AND BACK OF HER NECK RED AND COLD. FRESH ICE WITH WASHCLOTH BARRIER TO SKIN, AND FRESH PILLOW CASES PLACED. PT STATED SHE WAS COMFORTABLE. CALL LIGHT WITHIN REACH. NEEDS SOMETHING FOR HEADACHE, NOTIFIED PT PRIMARY RN.
--- NOTE | 2020-12-23 21:50 | NUR ---
PATIENT ASSESMENT COMPLETED. PATIENTS VITALS TAKEN AND RECORDED. LIMA EMPTIED AND LIMA CARE COMPLETED. PATIENTS INTAKE AND OUTPUT RECORDED. PATIENTS BS IS 83 AT THIS TIME. PATIENT PROVIDED WITH SNACK PER REQUEST. PATIENT HOYERED FOR REPOSITIONING AND FOAM CRATE PLACED UNDER PATIENT FOR COMFORT. BEDDING CHANGED. PATIENT HAD BM. COCYX ALLEVYN CHANGED PER ORDER. ALLEVYN ON LLE CHANGED PER ORDER IT FELL OFF DURING PATIENT REPOSITIINING. PATIENT PLACE DON 2L VIA NC PER REQUEST AND LEFT ON AT THIS TIME. PATIENTS EVENING MEDICATIONS GIVEN PER ORDER. PATIENT GIVEN PRN TYLENOL PER ORDER FOR A HEADACHE. PATIENT CONTINUES TO REST IN BEAD HOB UP. PATIENT IS EATING SNACK AT THIS TIME. NO FURTHER NEEDS NOTED. CALL LIGHT IN REACH.
--- NOTE | 2020-12-24 00:18 | NUR ---
PATIENT CALLED AND REQUESTED PAIN MEDICATION. PATIENT GIVEN PRN PAIN MEDICATION PER ORDER FOR 7/10 PAIN IN HER NECK AND BACK. NO FURTHER NEEDS NOTED. CALL LIGHT IN REACH.
--- NOTE | 2020-12-24 01:04 | NUR ---
in to asst pt with pillow, RT now in rm to setup cpap, pts dentures placed in solution, no further needs
--- NOTE | 2020-12-24 01:25 | NUR ---
IN TO ASST PT, PT HAD CPAP OFF AND 'NEEDED TO SRATCH NOSE AND HAVE A SIP OF WATER' ATTMEPTED TO HAVE PT REAPPLY CPAP MASK, PT REFUSED AT THIS TIME, STATING ANXITY ISSUES, RT AND PRIMARY RN INFOMED, NO FURTHER NEEDS AT THIS TIME
--- NOTE | 2020-12-24 01:41 | NUR ---
PATIENT IS NOW OFF BIPAP. PATIENT WAS ABLE TO TOLERATE FOR ABOUT 20 MINUTES. PATIENT IS REQUESTING ANXIETY MEDICATION IF WE WOUD LIKE HER TO CONTINUE BIPAP THERAPY. PATIENT DENIES ANY ANXIETY AT THIS TIME. PATIENT STATED "THE MACHINE MAKES MY LUNGS FEEL TIGHT". SPOKE WITH MD NO NEW ORDERS AT THIS TIME. CALL LIGHT IN REACH.
--- NOTE | 2020-12-24 02:14 | NUR ---
call light on, checking on pt, pt asking to see nurse, rn informed an on their way
--- NOTE | 2020-12-24 02:57 | NUR ---
PATIENT CALLED AND REQUESTED THIS RN. PATIENT IS REQUESTING HER BACK TO BE SCRATCHED. PATIENTS BACK SCRATCHED PER REQUEST. PATIENTS BS CHECKED PER REQUEST AND IS WNL. PATIENT IS REQUESTING PAIN MEDICATION. EDUCATED PATIENT ON NEXT AVALABLE DUE. PATIENT VERBALIZES UNDERSTANDING. NO FURTHER NEEDS NOTED. CALL LIGHT IN REACH.
--- NOTE | 2020-12-24 04:00 | NUR ---
PATIENT REPORTS 8/10 PAIN IN HER BACK, NECK AND ABD. PATIENT GIVEN PRN PAIN MEDICATION PER ORDER. PATIENT REPOSITIONED IN BED. PATIENT PROVIDED WITH WARM PACKS FOR HER SHOULDERS AND NECK. PATIENT DENIES ANY FURTHER NEEDS. CALL LIGHT IN REACH.
--- NOTE | 2020-12-24 05:00 | NUR ---
VITALS TAKEN AND RECORDED. PATIENTS INTAKE AND OUTPUT RECORDED. PATIENT IS ASKING FOR PAIN MEDICATION. PATIENT GIVEN PRN PAIN MEDICATION TO TITRATE TO THE MAX DOSE OF PRN PAIN MEDICATION. PATIENT DENIES ANY FURTHER NEEDS. CALL LIGHT IN REACH.
--- NOTE | 2020-12-24 08:30 | NUR ---
PT CBG MONITOR PATCH NO LONGER WORKING, ACCUCHECK COMPLETED AFTER PT HAD EATEN HALF HER BREAKFAST AND CBG 164, 1 UNIT HUMALOG HELD D/T LATE CBG. PT DENIES NAUSEA AT THIS TIME. TOLERATING BREAKFAST WELL.
--- NOTE | 2020-12-24 10:49 | NUR ---
v/s and I&Os done and recorded. no other needs at this time.
--- NOTE | 2020-12-24 11:28 | NUR ---
PATIENT STATES SHE EATS WHEN SHE IS HUNGRY. SHE HASN'T FELT WELL FOR A FEW DAYS DUE TO PAIN AND LACK OF SLEEP SO HER APPETITE ISN'T GREAT. SHE DID EAT 80% OF BREAKFAST THIS MORNING. SHE STATES SHE IS A DIET FOR HER HEART, KIDNEYS, AND DIABETES AT HOME, BUT SINCE HER BLOOD SUGARS HAVE BEEN FINE HERE SHE IS NOT ON ANY RESTRICTIONS. SHE WOULDN'T MIND LEARNING MORE ABOUT THESE DIETS FOR HOME BUT NOW IS NOT A GOOD TIME FOR HER. WILL CHECK BACK TOMORROW OR TUESDAY. REGULAR DIET WITH 1800 ML [address]CTION IN PLACE.
--- NOTE | 2020-12-24 12:00 | NUR ---
PT TEARFUL AND C/O 9/10 PRESSURE/TIGHT/SHARP ABD PAIN. ALREADY RECEIVED 10 MG OXYCODONE ADDITIONAL 5 MG GIVEN ALONG W/ TYLENOL. REPORTED TO DR GRAY, NO NEW ORDERS. CONTINUE TO MONITOR. PT REFUSING PT/OT AT THIS TIME. REPOSITIONED W/ WARM PACKS. CALL LIGHT IN REACH.
--- NOTE | 2020-12-24 14:00 | NUR ---
STAFF FROM [place] [employer] AND [facility] ASKING TO SEE PT. PT NOTIFIED AND GAVE PERMISSION FOR ENTRANCE. PT ASKED THIS RN TO EXPLAIN CURRENT TREATMENT PROCESS HERE AT HOSPITAL TO [facility] STAFF. EXPLAINED TO [facility] STAFF THAT THIS RN IS NOT AT [place] TO DISCLOSE ANTICIPATED DC DATE/TIME OR TREATMENT PLANS. [facility] CANDICE REQUESTED PT SIGN MEDICAL INFORMATION RELEASE FORM. PT STATED "I'LL SIGN WHATEVER YOU WANT ME TOO, I JUST WANT MY DAUGHTER BACK" PT REQUESTED THIS RN TELL DHS "EVERYTHING THATS GOING ON WITH ME TELL THEM ABOUT MY FLUIDS AND MY SWELLING" THIS RN EXPLAINED WE ARE MONITORING FLUIDS AND PAIN CONTROL, THOUGH PT DID GIVE VERBAL PERMISSION FOR THE RN TO SPEAK WITH [employer] AND [employer], THIS RN DID NOT FEEL COMFORTABLE RELEASING ANY FURTHER INFORMATION AND THAT WAS MADE CLEAR TO [employer] AND P[employer]. [facility] REQUESTED THIS RN TO SIGN A WITNESS TO PT SIGNING MEDICAL RELEASE OF INFORMATION FORM, THIS RN COMPLIED. PT ALERT & ORIENTED X4, VERBALIZED UNDERSTANDING OF DOCUMENT. DR GRAY REFUSING TO TALK TO [employer] AND [employer] AT THIS TIME. PPD AND [employer] LEFT BETWEEN APPROX [phone]. MIGUEL [employer]LE DIGGING MACHINE OPERATOR IN TO TALK TO PT REGARDING CURRENT EVENTS, PT STATES SHE DID NOT FEEL PRESSURED TO SIGN DOCUMENTS AND UNDERSTOOD ITS CONTENTS. THIS RN IN TO HAVE PT SIGN RELEASE OF MEDICAL INFORMATION FORM TO [employer] AND [employer]. PT VERBALIZED UNDERSTANDING AND ABLE TO SIGN FORM.
--- NOTE | 2020-12-24 15:19 | NUR ---
SPOKE WITH PT REGARDING THE HOSPITAL RELEASING INFORMATION TO [facility] AND THE POLICE. ASKED HER REPEATEDLY IF SHE FELT PRESSURED BY THEM TO COMPLY OR SIGN ANYTHING. SHE STATED "NO, I ASKED FOR THE PAPER." PT STATES THAT SHE FEELS OF SOUND MIND WHEN ASKED IF SHE FEELS ALTERED BY THE NARCOTICS SHE IS TAKING.
--- NOTE | 2020-12-24 16:00 | NUR ---
DR GRAY IN TO SEE PT AND PT WAS TEARFUL AND UPSET. ASKING FOR ANXIETY MEDICATION AND REPORTING 8/10 ABD PAIN.
--- NOTE | 2020-12-24 17:00 | NUR ---
CBG 144 REQUIRING 1 UNITS SS HUMALOG. PT GIVEN 10 MG FOR 8/10 ABD PAIN AND ALSO VISTARIL FOR ANXIETY. HR ELEVATED TO 120. PT STATES SHE FEELS LIKE SHE IS GOING TO HAVE A PANIC ATTACK. CALMING DOWN AFTER VISTARIL RECEIVED.
--- NOTE | 2020-12-24 19:51 | NUR ---
PT CALLED FOR ASSISTANCE GETTING HER MEAL TRAY IN FRONT OF HER AND HOB ELEVATED. SHE DENIES FURTHER NEEDS. CALL LIGHT IS CLOSE.
--- NOTE | 2020-12-24 20:02 | NUR ---
RECEIVED REPORT FROM DAY SHIFT RN. PATIENT IS RESTING IN BED TALKING ON PHONE. NO NEEDS NOTED. CALL LIGHT IN REACH.
--- NOTE | 2020-12-24 21:35 | NUR ---
PATIENT ASSESMENT COMPLETED. PATIENTS VITALS TAKEN AND RECORDED. LIMA EMPTIED AND LIMA CARE COMPLETED. PATIENTS EVENING MEDICATIONS GIVEN PER ORDER. PATIENT REPORTS 8/10 PAIN IN HER BACK AND ABD. PATIENT GIVEN PRN PAIN MEDICATION. PATIENT IS ON RA AT THIS TIME. PATIENTS ABD REMAINS DISTENDED AND FIRM. PATIENT DENIES ANY NEEDS. CALL LIGHT IN REACH.
--- NOTE | 2020-12-24 23:18 | NUR ---
PATIENT REPOSITIONED. PATIENT PLACED ON 2L VIA NC DUE TO ANXIOUS AND BECOMES SOB WITH REPOSITIONING. PATIENT DENIES ANY FURTHER NEEDS. CALL LIGHT IN REACH.
--- NOTE | 2020-12-25 00:58 | NUR ---
RT IN ROOM AND PLACE PT ON CPAP. NO NEEDS NOTED. CALL LIGHT IN REACH.
--- NOTE | 2020-12-25 02:07 | NUR ---
PATIENT TOOK 15MIN BREAK OFF OF CPAP TO DRINK WATER. PATIENT IS NOW BACK ON CPAP. NO NEEDS NOTED. CALL LIGHT IN REACH.
--- NOTE | 2020-12-25 05:50 | NUR ---
PATIENTS VITALS TAKEN AND RECORDED. PATIENTS LIMA EMPTIED. PATIENT REPOSITIONED IN BED. PATIENTS INTAKE AND OUPUT RECORDED. PATIENT REPORTS 8/10 PAIN IN HER ABD AND BACK. WARM PACKS PROVIDED. PATIENT PLACED BACK ON CPAP. NO FURTHER NEEDS NOTED. CALL LIGHT IN REACH.,
--- NOTE | 2020-12-25 07:30 | NUR ---
RECEIVED REPORT AT 0700, PT WAS SLEEPING W/C-PAP ON. NO ISSUES WERE NOTED.
--- NOTE | 2020-12-25 08:30 | NUR ---
UPPER LOBES CLEAR, LOWER LOBES DIMINISHED BUT CLEAR. ABD SOUNDS HYPOACTIVE. ABD IS STILL SEVERELY DISTENDED. DRESSINGS WILL HAVE TO BE CHANGED THIS AM. BG 133, NO INSULIN NEEDED AT THIS TIME.
--- NOTE | 2020-12-25 10:17 | NUR ---
Notified by Dr. Gallagher,pt is now wanting to revoke her TAMAR to the Police and [facility] for release of medical records as she states she was under the influence of pain medications and should not have signed the TAMAR. Spoke with medical records and they have not faxed the records. Requested they not send and I will have pt sign original form revoking.
--- NOTE | 2020-12-25 10:33 | NUR ---
VITALS DONE. WARM WASHCLOTH OFFERED. WATER REFRESHED. CALL LIGHT WITH IN REACH. NO FURTHER NEEDS AT THIS TIME.
--- NOTE | 2020-12-25 10:46 | NUR ---
Called at spoke with Ericka from [facility] [phone] and requested to speak with Fina. She is not in the office. Updated Jostin's air traffic instructor is stating she could not legal sign TAMAR as she was under effects of pain medication. Pt is now requesting all TAMAR be revoked. Ericka gave me Fina's cell phone and I called and left a message without leaving names, requesting call back. Ericka states she will attempt to contact Fina an update also.
--- NOTE | 2020-12-25 11:29 | NUR ---
Emailed original TAMAR to Chen Ridley in [facility] Information after patient wrote revoked, signed, and dated.
--- NOTE | 2020-12-25 11:35 | NUR ---
ALL DRESSINGS WERE CHANGED BY STUDENT AND INSTRUCTIOR. LAKA DRESSING HAD SEROUS SANG. DRAINAGE PRESENT AND SO DID HER COCCYX DECUB. SKIN FOLDS ON ABD AND GROIN WERE CLEANED AND POWDER WAS APPLIED. WOUNDS WERE CLEANED PER ORDER.
--- NOTE | 2020-12-25 13:00 | NUR ---
PATIENT RESTING IN THE BED, WATER FILLED. VITAL DONE. CALL LIGHT IN REACH. NO FURTHER NEEDS AT THIS TIME.
--- NOTE | 2020-12-25 14:47 | NUR ---
PT IN ROOM SLEEPING. NO NEW CONCERNS NOTED AT THIS TIME. PAIN WELL CONTROLLED WITH PRN DILAUDED.
--- NOTE | 2020-12-25 15:00 | NUR ---
PT IN ROOM. PT DID WORK WITH PHYSIC. THERAPY. ASSESSMENT OVERALL WAS UNCHANED FROM MORNING ASSESSMENT. WILL CONTINUE TO MONITOR.
--- NOTE | 2020-12-25 16:39 | NUR ---
PT IN ROOM, PRN OXY GIVEN FOR PAIN 04/28.
--- NOTE | 2020-12-25 18:44 | NUR ---
PT OVERALL HAD A GOOD DAY. PT WORKED WITH PT THIS AFTERNOON, ALL DRESSINGS WERE CHANGED PER ORDER X1 TODAY, ONLY CONCERN THIS SHIFT IS HER DROPPING URINE OUTPUT. MD GRAY IS AWARE. HR ELEVATED UP TO 130'S, MD GRAY ALSO AWARE. CONTINUE TO MONITOR.
--- NOTE | 2020-12-25 19:48 | NUR ---
RECEIVED REPORT FROM DAY SHIFT RN. PATIENT IS RESTING IN BED EATING DINNER. NO NEEDS NOTED. CALL LIGHT IN REACH.
--- NOTE | 2020-12-25 20:30 | NUR ---
in with rn to get vitals, tapia emptied, water refilled
--- NOTE | 2020-12-25 21:05 | NUR ---
PATIENT ASSESMENT COMPLETED. PATIENTS VITALS TAKEN AND RECORDED. LIMA EMPTOED AND LIMA CARE COMPLETED. PATIENTS EVENING MEDICATIONS GIVEN PER ORDER. PATIENT IS ON RA AT THIS TIME. PATIENT DENIES ANY NEEDS AT THIS TIME. CALL LIGHT IN REACH.
--- NOTE | 2020-12-25 21:40 | NUR ---
PATIENT GIVEN PRN PAIN MEDICATION FOR 8/10 PAIN IN HER ABD. PATIENT IS ALSO WANTING TO PUT THE BIPAP ON. PATIENT IS ANXIOUS WHEN BIPAP IS ON. PATIENT GIVEN PRN MEDICATION FIR ANXIETY. WILL NOTIFY RT PATIENT IS READY TO PLACE BIPAP ON. PATIENT REPOSITIONED IN BED. NO FURTHER NEEDS NOTED. CALL LIGHT IN REACH.
--- NOTE | 2020-12-25 22:00 | NUR ---
in to see what pt needed, pt had flatunce and unsure if she had a bm, checked and pt was clear at this time, no further needs, pt is ready for rt ro come by
--- NOTE | 2020-12-25 22:15 | NUR ---
RT IN ROOM. PATIENT PLACED ON BIPAP. NO NEEDS NOTED. CALL LIGHT IN REACH.
--- NOTE | 2020-12-26 00:03 | NUR ---
PATIENT IS RESTING IN BED WITH EYES CLOSED, RR 19. BIPAP WORN. CALL LIGHT IN REACH.
--- NOTE | 2020-12-26 00:35 | NUR ---
PATIENT GIVEN PRN TYLENOL FOR 8/10 PAIN IN HER ABD. PATIENT DENIES ANY FUTHER NEEDS. BIPAP PLACED BACK ON.
--- NOTE | 2020-12-26 02:22 | NUR ---
PATIENT IS REMOVED BIPAP TO TAKE SIPS OF WATER. PATIENT GIVEN PRN PAIN MEDICATION FOR 8/10 PAIN IN HER BACK AND SHOULDERS. PATIENT PUT BIPAP BACK ON. NO FURTHER NEEDS NOTED. CALL LIGHT IN REACH.
--- NOTE | 2020-12-26 03:30 | NUR ---
PATIENTS BIPAP PUT IN STANDBY. PATIENT ENCOURAGED TO WEAR BIPAP. PATIENT STATED "MY MOUTH IS TO DRY" PATIENT IS REQUESTING A BREAK FROM THE BIPAP AT THIS TIME. WILL CALL WHEN SHE IS READY TO WEAR IT. NO FURTHER NEEDS NOTED. CALL LIGHT IN REACH.
--- NOTE | 2020-12-26 05:27 | NUR ---
PATIENT REPOSITIONED. VITALS TAKEN AND RECORDED. INTAKE AND OUPUT RECORDED. PATIENT DENIES ANY NEEDS AT THIS TIME. CALL LIGHT IN REACH.
--- NOTE | 2020-12-26 06:07 | NUR ---
PATIENT IS ON A REGULAR DIET AND TOLERATES IT WELL. NO NAUSEA NOTED. PATIENT HAS LIMA IN PLACE. PATIENT IS ON RA BUT USES 2L VIA NC WHILE REPOSITIONING. PATIENT IS A VIKA 2-3PA FOR XFERS. PATIENT IS ON A FR OF 1800ML. PATIENT IS WORKING WITH PT AND OT. PATIENT HAS WOUND CARE CONSULT FOR MULTIPLE AREAS OF CONCERN. PATIENT HAS DISTENDED ABD WITH NO IMPROVEMENT OVERNIGHT. PATIENT HAS HYPOACTIVE BOWEL TONES. PATIENT IS AAOX4.
--- NOTE | 2020-12-26 07:30 | NUR ---
RECEIVED REPORT AT 0700, PT WAS SLEEPING WITH BI-PAP ON.
--- NOTE | 2020-12-26 08:50 | NUR ---
Pt was discussed in [address] Gallagher would like pt to go to IP Rehab at [facility]. I attempted to call and they were not open last night or this am. Was able to reach at 0900 and faxed and faxed chart.
--- NOTE | 2020-12-26 10:00 | NUR ---
PT NOW EATING BREAKFAST. WILL ASSESS AFTERWARDS. PT SELPT UNTIL 0930. BG WDL, NO INSULIN NEEDED.
--- NOTE | 2020-12-26 10:25 | NUR ---
Faxed Face sheet, chart notes, PT/OT eval and notes, H&P to [facility] rehab. [phone].
--- NOTE | 2020-12-26 12:00 | NUR ---
ABD IS MORE DISTENDED IT APPEARS THAN YESTERDAY. DRESSINGS ON ALL WOUNDS WERE CHANGED AGAIN PER ORDER, URINE OUTPUT ADEQUATE, SKIN BREAKDOWN IN SKIN FOLDS IS MORE SEVERE, CREAM AND POWDER APPLIED. WILL CONTINUE TO MONITOR.
--- NOTE | 2020-12-26 12:59 | NUR ---
Received message from [facility] IP rehab, they are declining pt as she more appropriate for a SNF. Dr notified.
--- NOTE | 2020-12-26 14:00 | NUR ---
Spoke with Alondra and nadira [facility] IP rehab declined placement. She is upset stating Dr. Obrien should have shipped her so she could be near her Dr.s. Updated he would have had to find a Dr. to accept and if we can provide the care they will not accept. Discussed where she would like to go and options given for [place] and the surrounding area. She declines [facility] in [place] and will think about [place] or [place]. We discussed it's not a good idea to go out of state as she has DMAP and they will not pay for out of state. Medicare will pay for 20 days only and she will require a longer period of rehab. Pt begins to blame everyone Drs, nurses, and her daughter for her medical issues. She feels the wound on her stump is due to her daughter scratching her leg and causing a wound. I told her I would return to check where she would like rehab. Pt does not want to leave the hospital and does not feel she should leave until the fluid has left her body. She also request to have a 1 time dialysis to decrease the fluid on her body. Dr. Gallagher notified of request.
--- NOTE | 2020-12-26 14:00 | NUR ---
PT IN ROOM EATING LUNCH NOW. 1 UNIT INSULIN WAS GIVEN. PT OVERALL IS IN A PLEASANT MOOD. NO NEW CONCERNS NOTED AT THIS TIME.
--- NOTE | 2020-12-26 15:01 | NUR ---
PATIENT EATING LUNCH. I ASKED HER IF SHE WANTED TO CHAT ABOUT HER DIETS TODAY. SHE SAID SHE WOULD LIKE TO CHAT ANOTHER DAY SINCE SHE'S HAD A BUSY DAY AND IS EATING HER LUNCH. I WILL STOP BY AGAIN ON TUESDAY. SHE PREFERS HER MEALS 1 HOUR LATER THAN STANDARD TRAY DELIVERY. WILL ALERT THE KITCHEN.
--- NOTE | 2020-12-26 15:46 | NUR ---
Spoke with Dr. Gallagher and she feels pt would be best served with a SNF in [facility] as all her Dr.s are there. Called and left a message Germán lema [phone], Tom lema unable to leave message, [facility]. Left a message for Britney Dotson asking for return call on Tuesday [phone].
--- NOTE | 2020-12-26 16:52 | NUR ---
THIS MORNING SHE WORKED WITH OCCUPATIONAL THERAPY. SHE PUT A NEW GOWN ON.
--- NOTE | 2020-12-26 18:50 | NUR ---
PATIENT AWAKE IN BED. VISITOR IN ROOM. VITALS AND I&OS CHARTED, LIMA EMPTIED.
--- NOTE | 2020-12-26 19:48 | NUR ---
IN TO ASST PT WITH DROPPED PHONE, FOUND LOST CHAPSTICK CAP, ADJUSTED BEDSIDE TABLES, NO FURTHER NEEDS AT THIS TIME,
--- NOTE | 2020-12-26 20:29 | NUR ---
hob ELEVATED, VISITING WITH FAMILY VIA PHONE, JOSE DRESSING IN PLACE, NO C/O PAIN. ON ROOM AIR AT THIS TIME.
--- NOTE | 2020-12-26 20:32 | NUR ---
PT IN BED, WTCHING TV, NO C/O PAIN. O2 4L OXYMASK, NO C/O PAIN. AWARE OF FLUID RESTRICTION. CALL LIGHT AT BEDSIDE
--- NOTE | 2020-12-26 21:40 | NUR ---
IN TO GET VITALS, DIET SODA GIVEN, LIMA EMPTIED AND RECORDED AT THIS TIME, RN IN FOR PM MEDS, PUT DENTURES IN CLEANING SOLUTION, NO FURTHER NEEDS
--- NOTE | 2020-12-26 22:34 | NUR ---
coop with assessment, O2 2L NC, medicated with 15mg Oxycodone c/o generalized pain
--- NOTE | 2020-12-27 01:31 | NUR ---
Using CPAP, no distress, pt placed on contact precautions isolation due to MRSA. call light at hands reach
--- NOTE | 2020-12-27 02:08 | NUR ---
Resting, eyes closed, using CPAP, no distress noted, call light and fluids at bedside, f/c patent. Pt on contact isolation
--- NOTE | 2020-12-27 03:07 | NUR ---
IN TO HELP PT, PT STATES SHE FLET LIKE HER BLADDER WAS FULL, CHECKED CATHETER TUBING WAS NOT KINKED, MOVED OUT FROM UNDER PT, PT STATED SHE WAS HAVING SOME PAIN, RN INFORMED, NO FURTHER NEEDS
--- NOTE | 2020-12-27 03:15 | NUR ---
PT C/O JONES, MEDICATED WITH OXYCODONE 15MG, CPAP BACK ON. CALL LIGHT AT BEDSIDE, TOLERATING FLUID RESTRICTION
--- NOTE | 2020-12-27 05:03 | NUR ---
IN TO HELP PT ADJ CPAP MASK STRAPS, NO FURTHER NEEDS AT THIS TIME
--- NOTE | 2020-12-27 06:26 | NUR ---
Pt has slept most of this shift. alternating between O2 and CPAP. lungs dim at bases, abd very large firm, MARICARMEN bt's. orange peel look to abd, red rash between groin area. very moist weeping ezekiel area and l abdsided. unknown if thick jelly like brown and clear drainage is coming from vaginal area or sores in vaginal area. f/c patent, draining small amounts urine. dressing LBKA allevyn in place. and RAKA stump , allevyn in buttocks area. and L top of hand, redness w/o changes. very limited gripping hands. Tolerated fluid restriction. no cough noted. uses call light.
--- NOTE | 2020-12-27 06:50 | NUR ---
in with rn to asst with chux and brief change, boosted patient, call light in place, nu further needs
--- NOTE | 2020-12-27 07:11 | NUR ---
Report from Henrik Bell RN. Patient resting in bed, eyes closed. Respirations even and unlabored.
--- NOTE | 2020-12-27 07:47 | NUR ---
Uses call light to inform staff her call light is not working, she had to use call light on bed. New call light provided, working. Assessment completed. Rates pain 5-6/10 at this time. Requests analgesic if time. Asks if dialysis would work for pulling fluid off if done one time. Verbalizes she did not understand what the plan was for her diuretic yesterday. Informed this nurse will review chart and let her know. Currently on oral diuretics.
--- NOTE | 2020-12-27 11:07 | NUR ---
Resting in bed, eyes closed, respirations even and unlabored. Call light in reach, bed rails up X2.
--- NOTE | 2020-12-27 16:02 | NUR ---
Bed bath completed. Assist to reposition. Assessment completed. PRn analgesic given for pain. Denies other needs.
--- NOTE | 2020-12-27 16:10 | NUR ---
DR. GRAY NOTIFIED OF LOW URINE OUTPUT. NO NEW ORDERS AT THIS TIME.
--- NOTE | 2020-12-27 19:43 | NUR ---
REPORT RECEIVED FROM DAY SHIFT RN. PT SITTING UP IN BED FINISHING DINNER TRAY. O2/NC IN PLACE. IVF INFUSING. DENIES NEEDS AT THIS TIME. WHITE BOARD UPDATED. CALL LIGHT IN REACH.
--- NOTE | 2020-12-27 21:33 | NUR ---
patient's vitals and i&o completed. patient tells me about how she is scared for her health and has been having difficulty having her daughter speak to her. rags the weapping skin in lower abdomen/ezekiel area replaced and were slightly saturated with a yellow puss. rn in room. powder under L brest. fluids for rest the night in cup. 350 ml to complete the fluid restriction amount for the day. call light in reach. provided with wet towel to wipe face. lights turned down. denies any futher needs at this time.
--- NOTE | 2020-12-27 21:45 | NUR ---
EVENING ASSESSMENT COMPLETE. SCHEDULED MEDS ADMINISTERED PER EMAR. PRN ADMINISTERED FOR 8/10 GENERALIZED PAIN. PT DENIES NAUSEA. O2 2L/NC IN PLACE. SpO2 100%. RESPIRATIONS EVEN AND UNLABORED. ABD FIRM AND DISTENDED. ALLEVYN TO LEFT STUMP WITH SMALL AMOUNT SHADOWING. ALLEVYN TO LEFT HAND CDI. GROIN AND PANNUS AREA NOTED TO BE WEEPING SEROUS FLUID. CLEAN TOWELS PLACED FOR DRAINAGE. UNDER LEFT BREAST CLEANSED AND FRESH POWDER APPLIED TO EXCORIATED SKIN. ASSISTED TO REPOSITION IN BED. DISCUSSED WITH PT TO HAVE VISTARIL FOR ANXIETY WHEN AVAILABLE AND THEN PUT BIPAP ON. PT DENIES FURTHER NEEDS. CALL LIGHT IN REACH.
--- NOTE | 2020-12-27 21:55 | NUR ---
PHARMACEUTICAL LABORATORY TECHNICIAN ROUNDING NOTE. PT RESTING IN BED LOOKING AT HER PHONE. WHEN ASKED IF PT HAS ANY QUESTIONS OR CONCERNS PT STATES, "I JUST DON'T WANT TO HERE!" DISCUSSED THIS FEELING WITH PT. ENCOURAGED PT FOLLOW 'S RECOMMEDATION OF WEARING CPAP. SHE STATES THAT SHE WILL WEAR THE CPAP AFTER 2300. PT DENIES FURTHER NEEDS AT THIS TIME. CALL LIGHT IN REACH.
--- NOTE | 2020-12-27 23:30 | NUR ---
PRN FOR ANXIETY ADMINISTERED PER PT REQUEST. PT REQUEST TO HAVE HARD CANDY FOR DRY MOUTH AND THEN HAVE CPAP PLACED.
--- NOTE | 2020-12-27 23:50 | NUR ---
RT IN TO ASSIST PT WITH CPAP PLACEMENT. CPAP ON AT THIS TIME, PT APPEARS TO BE MEGHNA WELL.
--- NOTE | 2020-12-28 01:13 | NUR ---
PT RESTING IN BED WITH EYES CLOSED. CPAP IN PLACE. RESPIRATIONS EVEN AND UNLABORED. HOB ELEVATED. CALL LIGHT IN REACH.
--- NOTE | 2020-12-28 02:14 | NUR ---
patient called for help with her mask. this director behavioral health assisted with taking the mask off so she could take a drink of water. mask placed on. call light in reach. lights turned down. denies any futher needs at this time.
--- NOTE | 2020-12-28 03:00 | NUR ---
CALL LIGHT ASNWERED. PT REPORTS CPAP MASK FELL OFF WHILE SLEEPING. ASSISTED TO REPLACE MASK. NO FURTHER NEEDS.
--- NOTE | 2020-12-28 07:08 | NUR ---
Report from Cassi Monte RN. Patient resting in bed. Call light in reach.
--- NOTE | 2020-12-28 07:15 | NUR ---
in patient room to complete vitals and i&o. patient required a full bed change due to sweat/weaping skin on back. patient needed breaks as she "was having a hard time breathing". 3PA required. both MERVAT Garcia and MERVAT Galeas in room. wash cloths placed in groin flods. tapia checked for flow. chucks placed under sheet as well as between andreia and patient. patient was not given any new fluids. patient was rolled for bed change and tolerated with much discomfort. call light and personal items provided. denies any futher needs at this time.
--- NOTE | 2020-12-28 07:17 | NUR ---
ASSESSMENT COMPLETE. LINENS UNDER PT NOTED TO BE SATURATED WITH YELLOW FLUID. 3PA TO CHANGE LINENS. GEOCHEMICAL MANAGER REPLACED ALLEVYN TO COCCYX. WOUND REPORTED TO BE BLEEDING, CLEANSED WITH WOUND SALES DESIGNER. PT MEGHNA FAIR. REPOSITIONED PT IN BED WITH PILLOWS. PRN ADMINISTERED FOR 8/10 GENERALIZED PAIN. HOB ELEVATED. OXYGEN IN PLACE. PT DENIES FURTHER NEEDS. CALL LIGHT IN REACH.
--- NOTE | 2020-12-28 09:44 | NUR ---
AM medications administered, takes without difficulty. Becomes tearful, discusses feeling lonely and fear of being discharged, fear of not getting well and dying. allowed to voice frustrations. Dr. Gallagher in to speak with patient as well. Vistaril provided. Does say she is fine prior to this nurse leaving room.
--- NOTE | 2020-12-28 12:00 | NUR ---
Pannus fold and ezekiel-area cleansed with bath wipes, dried and demedex powder applied, towels to folds to prevent moisture. Cleansed, dried, powder applied under left breast as well. Noel catheter leaking, only 8mL of saline in balloon, re-inflated with 10 mL. No immediate leaking around catheter noted at this time. Repositioned in bed. Dressings to left hand and left leg/stump removed, sites cleansed with warm water/gauze, medi-honey applied and mepilex foam applied.
--- NOTE | 2020-12-28 14:04 | NUR ---
In room to assess patient and give scheduled medications. Requests to be repositioned multiple times, states catheter is uncomfortable as it rubs skin. padded with gauze, no leaking of catheter noted. Assist to reposition, pulled up in bed. Call light in reach. States she is in pain and starting to become nauseated, see EMAR.
--- NOTE | 2020-12-28 15:30 | NUR ---
Sitting with head up in bed. Changing towel to abd folds to pillowcases, tapia noted to have been leaking. Previous tapia DC'd and new tapia started X1 assist with sterile technique, uroject utilized to decrease discomfort as patient is very anxious about pain related to tapia catheter insertion, 16 fr catheter with immediate urine return. Balloon inflated with 10 mL of sterile NS. Tolerated with some discomfort. Blisters noted to labia bilat, 2 blisters ruptured with tapia start, barrier cream applied to ezekiel-area.
--- NOTE | 2020-12-28 17:45 | NUR ---
Sits with head of bed elevated. Dressings to left leg/stump and left hand changed today. Noel catheter changed due to leaking. DC'd IV fluids, administered dose of lasix. Pain managed with PRN analgesics, repositioned frequently.
--- NOTE | 2020-12-28 19:22 | NUR ---
REPORT RECEIVED FROM DAY SHIFT RN. PT LYING IN BED ALERT AND ORIENTED. O2 2L/NC IN PLACE. DENIES NEEDS. WHITE BOARD UPDATED. CALL LIGHT IN REACH.
--- NOTE | 2020-12-28 19:45 | NUR ---
PT CALLED, NEEDED HELP WITH HER OXYGEN. FOUND HER HAIR HAD BEEN CAUGHT UP WITHIN HER O2 TUBING. REQUESTED AND RECEIVED A DRY CLOTH. ALL PERSONAL SUPPLIES WITHIN HER REACH.
--- NOTE | 2020-12-28 21:02 | NUR ---
ASSESSMENT COMPLETE. SCHEDULED MEDS ADMINISTERED PER EMAR. CHUCKS UNDER PT SOILED WITH YELLOW DRAINAGE. DOES NOT SMELL LIKE URINE. APPEARS TO BE WEEPING FROM MAYRA/SAMIA AND PANNUS AREA. SKIN CLEANSED, DRIED, AND PILLOW CASES PLACED IN CREASES. PT MAX ASSIST IN BED. TIRES EASILY WITH MOVEMENT AND NEEDS FREQUENT BREAKS. HOB ELEVATED. O2 2L/NC IN PLACE. LIMA CARE DONE. LIMA PATENT WITH YELLOW URINE. DRESSING TO RIGHT STUMP AND RIGHT HAND CDI. NO FURTHER NEEDS AT THIS TIME. CALL LIGHT IN REACH.
--- NOTE | 2020-12-28 22:16 | NUR ---
PRN FOR ANXIETY ADMINISTERED PER PT REQUEST. WILL CALL FOR BIPAP PLACEMENT WHEN MED HAS A CHANCE TO WORK.
--- NOTE | 2020-12-28 23:09 | NUR ---
ASSISTED PT TO REPOSITION IN BED. BIPAP PLACED AT THIS TIME. LIGHTS TURNED DOWN. CALL LIGHT IN REACH.
--- NOTE | 2020-12-29 00:23 | NUR ---
CALL LIGHT ANSWERED. PT REPORTS BIPAP ALARMING. IN ROOM TO ASSESS. BIPAP NOT ALARMING AT THIS TIME. REMOVED MASK SO PT MAY DRINK. MASK NOW IN PLACE.
--- NOTE | 2020-12-29 02:36 | NUR ---
PT RESTING IN BED WITH EYES CLOSED, NAD. BIPAP IN PLACE. CALL LIGHT IN REACH.
--- NOTE | 2020-12-29 02:51 | NUR ---
PT HEARD FROM NURSES STATION CALLING FOR HELP. PT REPORTS UNABLE TO REACH CALL LIGHT THAT WAS UNDER HER ARM. REQUESTING BIPAP BE REMOVED DUE TO DRY MOUTH. O2 2L/NC PLACED. PRN ADMINISTERED FOR 8/10 GENERALIZED PAIN. PT REQUESTING PRN FOR ANXIETY, EXPLAINED IT WAS TOO SOON FOR ADMIN. PT STATES UNDERSTANDING.
--- NOTE | 2020-12-29 03:10 | NUR ---
CALL LIGHT ANSWERED. PT REQUESTING BIPAP NOW. RT IN ROOM TO ASSIST.
--- NOTE | 2020-12-29 06:11 | NUR ---
PT OFF OF BIPAP AT THIS TIME. PT C/O DRY THROAT AND WOULD LIKE A BREAK. HUMIDIFICATION ADDED TO NASAL CANNULA. DISCUSSED WITH RT ABOUT HUMIDIFIER FOR BIPAP. VS AND I&O COMPLETE. LINENS CHANGED DUE TO WEEPING SKIN. SKIN CLEANSED AND DRY PILLOW CASES PLACED IN FOLDS. PT MEGHNA FAIR REQUIRING FREQUENT BREAKS. REPOSITIONED IN BED WITH PILLOWS. PRN ADMINISTERED FOR ANXIETY.
--- NOTE | 2020-12-29 06:52 | NUR ---
PT CALLED, REQUESTED CPAP ASSISTANCE. NO OTHER NEEDS AT THIS TIME. CALL LIGHT WITHIN REACH.
--- NOTE | 2020-12-29 07:05 | NUR ---
REPORT RECEIVED FROM WILDA CROWELL. PT RESTING IN BED WITH CPAP IN PLACE. NO APPARENT NEEDS AT THIS TIME, WILL CONT PLAN OF CARE
--- NOTE | 2020-12-29 08:12 | NUR ---
SCHEDULED MEDICATION ADMINISTERED. ASSESSMENT COMPLETE. PT OFF CPAP, 96% ON RA. VSS. A+O, ANXIOUS REGARDING PLAN OF CARE. LIMA CARE COMPLETE, PT POSITIONED WITH SOFT PILLOW CASES UNDER PANNUS/BETWEEN LEGS TO PREVENT CHAFING AND IRRITATION. DESENEX POWDER APPLIED. ABDOMEN TIGHT AND DISTENDED, PT NOTED TO BE WEEPING FLUID UNDER PANNUS. ORAL CARE COMPLETE. PT STATES NO FURTHER NEEDS AT THIS TIME.
--- NOTE | 2020-12-29 10:00 | NUR ---
RAPID SWAB COLLECTED
--- NOTE | 2020-12-29 10:05 | NUR ---
PT REQUESTS DT GUARDADO, PHILLIP. STAFF DEVELOPER IN ROOM TO ROUND. PT STATES NO FURTHER NEEDS, CALL LIGHT IN REACH
--- NOTE | 2020-12-29 10:11 | NUR ---
REPOSITIONED PATIENT, REFRESHED WATER, AND EMPTIED LIMA. CALL LIGHT IN REACH PATIENT ASKED FOR NAUSEA MEDICINE MERVAT DAMIAN
--- NOTE | 2020-12-29 11:19 | NUR ---
SEED PRODUCTION FIELD SUPERVISOR INFORMED THIS RN PT REPORTING PAIN, ADMINISTERED PRN MEDICATION. SEE MAR. PT REPORTS NO FURTHER NEEDS AT THIS TIME.
--- NOTE | 2020-12-29 12:17 | NUR ---
LAB DRAW FROM LEFT AC DONE AND SENT TO LAB IN GREEN TUBE. PT TOLERATED WELL. DR SMITH IN FOR ROUNDS.
--- NOTE | 2020-12-29 13:21 | NUR ---
scheduled medication administered. Pt reports no further needs but expresses general discomfort. States pain medication earlier was beneficial. IVF infusing, will continue to monitor.
--- NOTE | 2020-12-29 14:16 | NUR ---
STOPPED BY EARLIER TODAY AND PATIENT WAS SLEEPING. STOPPED BY THIS AFTERNOON AND SHE IS ON THE PHONE. I HAVE OTHER APPOINTMENTS THIS AFTERNOON, WILL HAVE TO STOP BY ANOTHER TIME TO SEE IF PATIENT WANTS TO CHAT ABOUT A DIET PLAN OR NOT. SHE HAS HX OF DIABETES, CHRONIC KIDNEY DISEASE, AND HEART FAILURE.
--- NOTE | 2020-12-29 14:37 | NUR ---
EMPTIED LIMA AND TOOK VITALS. PATIENT STATED NOTHING ELSE NEEDED FOR NOW
--- NOTE | 2020-12-29 14:39 | NUR ---
SPOKE WITH PATIENT IN ROOM. HER SISTER WAS IN ROOM ALSO. PT STATES SHE DOES NOT FEEL GOOD AT ALL TODAY. SHE REALLY DOESN'T WANT TO TALK ABOUT WHERE SHE IS DISCHARGING BECAUSE SHE MIGHT BE "TRANSFERRED TOMORROW". SHE STATES DR SMITH TOLD HER THIS. SHE STATES SHE "IS TOO SICK TO EVEN LEAVE A HOSPITAL". EXPLAINED WE CAN WAIT TO SEE WHAT IS NEEDED, JUST TO BE THINKING OF HER CHOICES IF IT IS NEEDED. SHE AGREED TO THIS. CM WILL CONTINUE TO FOLLOW.
--- NOTE | 2020-12-29 15:29 | NUR ---
Scheduled meds administered per new order. Pt repositioned by MACHINE FEEDER and states no needs at this time. Call light in reach
--- NOTE | 2020-12-29 15:44 | NUR ---
FAXED THE DEMOGRAPHICS SHEET TO [facility]. FAX# [phone]
--- NOTE | 2020-12-29 18:24 | NUR ---
PT MEDICATED FOR PAIN AND NAUSEA. SS INSULIN ADMINISTERED. IVF INFUSING WNL. PT DINNER ARRIVES THIS RN LEAVING, NO FURTHER NEEDS REPORTED
--- NOTE | 2020-12-29 19:11 | NUR ---
PATIENT VITALS DONE AND CHARTED. PATIENT STILL EATING DID NOT CHART FOOD. LIMA EMPTIED. NOTHING ELSE NEEDED AT THIS TIME FROM PATIENT.
--- NOTE | 2020-12-29 19:35 | NUR ---
REPORT RECEIVED FROM DAY SHIFT RN. PT LYING IN BED ALERT AND ORIENTED. DENIES NEEDS AT THIS TIME. WHITE BOARD UPDATED. CALL LIGHT IN REACH.
--- NOTE | 2020-12-29 21:00 | NUR ---
CALL LIGHT ANSWERED. PT REQUESTING NIGHT TIME MEDS IN 45 MIN. DINNER TRAY CLEARED PT ATE 80%. REMAINS WITHIN 1000 ML FLUID RESTRICTION. NS 3% TITRATED TO 40 ML PER ORDER.
--- NOTE | 2020-12-29 22:30 | NUR ---
EVENING ASSESSMENT COMPLETE. SCHEDULED MEDS ADMINISTERED PER EMAR. 3% NS INFUSING AT 40ML/HR. PRN ADMINISTERED FOR ANXIETY PER PT REQUEST. LINENS UNDER PT SATURATED WITH YELLOW DRAINAGE. 3 PERSON MAX ASSIST TO CHANGE LINENS, DO LIMA CARE, AND CLEAN GROIN/SAMIA AREA. MODERATE AMOUNT CLEAR GELATINOUS DRAINAGE FROM VAGINA NOTED. SKIN IN GROIN/SAMIA/PANNUS AREA WITH SCATTERED BLISTERS AND SKIN WEEPING SEROUS DRAINAGE. SKIN CLEANSED, DRIED, AND CLEAN PILLOW CASES PLACED FOR BARRIER. PT REPOSITIONED IN BED WITH PILLOWS. REPORTS SHE IS COMFORTABLE AT THIS TIME. CALL LIGHT IN REACH.
--- NOTE | 2020-12-29 22:54 | NUR ---
3 pa. DIETARY SERVICES DIRECTOR AMANDA, PRIMARY WILDA AND THIS SLUBBER FRAME CHANGER. CLEANED PATIENT. CHANGED VIKA SHEET, BED LINEN, AND GOWN. POWDER APPLIED BY RN. PATIENT REPOSITIONED. PERSONAL THINGS, SIDE TABLE AND CALL LIGHT WITHIN REACH.
--- NOTE | 2020-12-30 01:48 | NUR ---
CALL LIGHT ANSWERED. BIPAP WAS OFF FROM PATIENT AND BEEPING. PATIENT TOOK A DRINGK. BIPAP IS BACK ON. PATIENT ASKED IF SHE CAN HAVE PAIN MEDS. PRIMARY RN NOTIFIED.
--- NOTE | 2020-12-30 02:49 | NUR ---
PRN ADMINISTERED FOR PAIN. PT C/O ITCHING ON LEFT INNER THIGH. AREA CLEANED AND BARRIER CREAM APPLIED. REDNESS NOTED ON INNER THIGH, NO OPEN AREAS AT THIS TIME. PT ANXIOUS AND FRUSTRATED WITH STAFF DURING CARES. REPOSITIONED IN BED WITH PILLOWS. BIPAP IN PLACE. PERSONAL ITEMS AND CALL LIGHT IN REACH.
--- NOTE | 2020-12-30 03:10 | NUR ---
CALL LIGHT ANSWERED. WARM BLANKET PROVIDED.
--- NOTE | 2020-12-30 04:48 | NUR ---
PT REQUESTED VISTARIL, AND REQUESTED RT IN AT 5 AM TO ADJUST THE STRAPS ON HER CPAP FOR A BETTER FIT. ALL PERSONAL SUPPLIES WITHIN REACH.
--- NOTE | 2020-12-30 06:26 | NUR ---
VS AND I&O COMPLETE. PT OFF BIPAP FOR LAB DRAW. IVF INFUSING ORDERED. LIMA PATENT WITH 275 ML CONCENTRATED URINE. NO FURTHER NEEDS AT THIS TIME. CALL LIGHT IN REACH.
--- NOTE | 2020-12-30 07:15 | NUR ---
REPORT RECEIVED FROM WILDA CROWELL, PT RESTING IN BED AT THIS TIME. NO NEEDS REPORTED, WILL CONTINUE PLAN OF CARE
--- NOTE | 2020-12-30 09:00 | NUR ---
SCHEDULED MEDICATIONS ADMINISTERED AND ASSESSMENT COMPLETE. PT RESTING IN BED, WORKING WITH OT AT THIS TIME. IVF INFUSING WNL. PT REPORTS 9/10 GENERALIZED PAIN, MEDICATED WITH PRN MEDS. NO FURTHER REQUESTS
--- NOTE | 2020-12-30 11:00 | NUR ---
PATIENT CALLED AND SAID HER IV WAS COMING OUT. WENT DOWN TO CHECK ON IT AND IV CATH WAS MORE THEN HALF WAY OUT OF HER ARM. NOTIFIED RN AND RN ASKED ME TO TAKE IT OUT. IV TAKEN OUT OF LEFT ARM, CATH INTACT AND RN NOTIFIED.
--- NOTE | 2020-12-30 11:15 | NUR ---
ROUNDED ON PATIENT, CM IN ROOM TO DISCUSS PLAN OF CARE. PT REPORTS NO NEED, IVF INFUSING WNL. CALL LIGHT IN REACH
--- NOTE | 2020-12-30 11:20 | NUR ---
Spoke with Alondra. She cont. to plan to transfer to [facility], awaiting room to open.
--- NOTE | 2020-12-30 13:40 | NUR ---
PT MEDICATED FOR NAUSEA AND PAIN. IVF INFUSING WNL. PT CONTINUALLY QUESTIONS ABOUT PLAN OF CARE, REASSURED AND DISCUSSED CURRENT PLANS.
--- NOTE | 2020-12-30 14:44 | NUR ---
PT SITTING UP IN BED, TV ON. PT IS TO TRANSFER TO [facility] LATER THIS PM SOON BED OPENS. PT DISCOURAGED, KNOWS THIS IS THE RIGHT THING. EXPRESSED THOUGHT THAT THIS SHOULD HAVE HAPPENED SOONER. GAVE ENCOURAGEMENT AND HAD PRAYER WITH PT. WILL FOLLOW NEEDED
--- NOTE | 2020-12-30 15:56 | NUR ---
MEDICATIONS ADMINISTERED. LABS DRAWN BY SREEDHAR CROWELL. RT IN ROOM TO ASSESS PT. PT WITH EYES CLOSED, DIFFICULT TO AROUSE BUT AWAKENS BRIEFLY TO VOICE AND TOUCH TO SAY "I JUST WANT TO SLEEP". BEDBATH POSTPONED AT THIS TIME. IVF INFUSING WNL.
--- NOTE | 2020-12-30 16:30 | NUR ---
IV FLUIDS STOPPED PER NEW ORDERS
--- NOTE | 2020-12-30 18:11 | NUR ---
SCHEDULED SS INSULIN ADMINISTERED. PT RESTING WITH EYES CLOSED. STATES NO NEEDS.
--- NOTE | 2020-12-30 19:13 | NUR ---
PATIENT GIVEN PARTIAL BED BATH. SAMIA CARE, CATH CARE, SKIN CARE DONE. SHAMPOO CAP DONE. NEW GOWN. LINENS CHANGED. POWERED REAPPLIED UPON RN REQUEST. RN IN ROOM TO LOOK AT SAMIA AREA AND REAPPLY ALEVYNS TO LEFT LEG. PATIENT REPOSITIONED ONTO LEFT SIDE WITH PILLOW. CALL LIGHT IN REACH. NO FURTHER NEEDS AT THIS TIME.
--- NOTE | 2020-12-30 20:10 | NUR ---
RECEIVED REPORT FROM DAY SHIFT RN. PATIENT IS RESTING IN BED EATING DINNER. PATIENT GIVEN PRN ZOFRAN PER REQUEST FOR NAUSEA. NO FURTHER NEEDS NOTED CALL LIGHT IN REACH.
--- NOTE | 2020-12-30 21:06 | NUR ---
PATIENT ASSEMENT COMPLETED. PATIENT GIVEN SCHEDULED MEDICATION PER ORDER. PATIENT IS SITTING UP IN BED FINISHING HER DINNER. NO FURTHER NEEDS NOTED. CALL LIGHT IN REACH.
--- NOTE | 2020-12-30 21:45 | NUR ---
PATIENTS VITALS TAKEN AND RECORDED. PATIENTS SCHEDULED MEDICATIONS GIVEN PER ORDER. PATIENTS BS WAS 145 WHICH WOULD REQUIRE 1 UNIT OF INSULIN. PATIENT IS REFUSING INSULIN. EDUCATED PATIENT ON THE IMPORTANCE OF CONTROLLING HER BS. PATIENT CONTINUES TO REFUSE. PATIENT RATES PAIN AT AN 8/10. PATIENT GIVEN PRN PAIN MEDICATION PER ORDER. PATIENT REMAINS ON 2L VIA NC. NO FURTHER NEEDS NOTED. CALL LIGHT IN REACH.
--- NOTE | 2020-12-31 00:05 | NUR ---
ANSWERED CALL LIGHT. PATIENT ASKED FOR WATER. PROPEL 300CC GIVEN. PRIMARY RN NOTIFIED RE PATIENT IS READY FOR THE SCHEDULED MEDS.
--- NOTE | 2020-12-31 00:35 | NUR ---
PATIENT PLACED ON CPAP PER REQUEST. NO FURTHER NEEDS NOTED. CALL LIGHT IN REACH.
--- NOTE | 2020-12-31 02:14 | NUR ---
PATIENT IS RESTING IN BED WITH EYES CLOSED AND BIPAP IN PLACE. PATIENTS RR 20. CALL LIGHT IN REACH.
--- NOTE | 2020-12-31 04:10 | NUR ---
PATIENT REMOVED FROM CPAP PER REQUEST. PATIENT IS ASKING FOR A BREAK FOR 30 MIN. PATIENT DENIES ANY FURTHER NEEDS. CALL LIGHT IN REACH.
--- NOTE | 2020-12-31 04:41 | NUR ---
PATIENT DIGGS DTO BE PLACED BACK ON BIPAP. PATIENTS VITALS TAKEN AND RECORDED. LIMA EMPTIED. INTAKE AND OUPUT RECORDED. PATIENT DENIES ANY NEEDS AT THIS TIME. CALL LIGHT IN REACH.
--- NOTE | 2020-12-31 04:43 | NUR ---
PATIENT IS ON A REGULAR DIET, TOLERATING IT WELL, AND NO NAUSEA NOTED. PATIENT IS WORKING WITH PT/OT. PATIENT IS ON 2L VIA NC DURING THE DAY AND BIPAP AT NIGHT. PATIENT IS ON A 1000ML FR. PATIENT HAS A WOUND CARE CONSULT FOR MULTIPLE AREAS OF CONCERN. PATIENT IS UNABLE TO GET OUT OF BED AT THIS TIME. PATIENT IS A 3+ PERSON VIKA. PATIENT HAS A LIMA IN PLACE. PATIENTS ABD IS DISTENDED AND FIRM. PATIENT IS AAOX4.
--- NOTE | 2020-12-31 05:23 | NUR ---
PATIENT IS RESTING IN BED WITH EYES CLOSED AND BIPAP IN PLACE, RR 19. CALL LIGHT IN REACH.
--- NOTE | 2020-12-31 06:27 | NUR ---
PATIENT TAKEN OF BIPAP PER REQUEST. PATIENT DENIES ANY FURTHER NEEDS. PATIENT PLACED ON 2L VIA NC. CALL LIGHT IN REACH.
--- NOTE | 2020-12-31 07:27 | NUR ---
REPORT RECIEVED FROM CONSTRUCTION ELECTRICIAN RNALAN.
--- NOTE | 2020-12-31 07:53 | NUR ---
CALLED THE TRANSFER CENTER TO CHECK ON TRANSFER. WE ARE STILL TOP OF THE LIST. SHE DID SAY THAT THEY HAD PATIENTS STILL WAITING FOR A BED IN THEIR ER. SHE HAS OUR NUMBER FOR WHEN A BED BECOMES AVAILABLE AND ALSO SAID DR. SMITH COULD CALL AND TALK TO THE TALENT ASSISTANT IF HE NEEDED HELP FOR CARE NOW.
--- NOTE | 2020-12-31 08:15 | NUR ---
MORNING ASSESSMENT DONE. PATIENT PRESENTS SLEEPY, DOES ANSWER QUESTIONS APPROPRIATELY WHEN ASKED, WAKES EASILY. MULTIPLE WOUNDS ARE COVERED, RIGHT IV REWRAPPED. PATIENT IS WEARING 2L OF O2, REQUESTS ZOFRAN AT 0830 PRIOR TO BREAKFAST. PATIENT RATES PAIN 5/10 AND ENDORSES THIS IS BETTER THAN USUAL.
--- NOTE | 2020-12-31 10:05 | NUR ---
PATIENT GIVEN MEDICATION, PLAN TO DO BED BATH SOON.
--- NOTE | 2020-12-31 10:38 | NUR ---
Aids working with pt. No change in plan for dc to [facility]. Awaiting bed availability at this time. Pt. will transfer for dialysis.
--- NOTE | 2020-12-31 11:29 | NUR ---
PATIENT SITTING UP IN BED, VISITING ON THE PHONE, DENIES NEEDS AT THIS TIME.
--- NOTE | 2020-12-31 12:50 | NUR ---
PATIENTS VITALS TAKEN AND GIVEN A BED BATH. CHANGED LINEN ALSO. DID SAMIA/CATH CARE. PATIENT SETTLED AND NOTHING ELSE NEEDED OF NOW.
--- NOTE | 2020-12-31 13:08 | NUR ---
PATIENT SITTING UP IN BED TO EAT LUNCH. 3 UNITS OF INSULIN GIVEN SQ TO LEFT ARM.
--- NOTE | 2020-12-31 14:34 | NUR ---
PATIENT SLEEPING WHEN I CAME IN. VITALS DONE. LIMA EMPTIED. 0% OF MEAL EATEN. NOTHING NEEDED FOR NOW
--- NOTE | 2020-12-31 14:54 | NUR ---
NOTICED PT WAS ASLEEP. DID NTO DISTURB. WILL CHECK AGAIN
--- NOTE | 2020-12-31 16:04 | NUR ---
PATIENT GIVEN AFTERNOON IV LASIX. PATIENT IS SLEEPING WITH REGULAR RESPIRATIONS, APPEARS TO BE COMFORTABLE. LIMA CATHETER EMPTIED FOR 110 ML OF CLEAR YELLOW URINE.
--- NOTE | 2020-12-31 18:37 | NUR ---
PATIENTS VITALS TAKEN . PATIENT WAS SLEEPING WHEN THIS TOY TRAINS AND ACCESSORIES SALESPERSON CAME IN. MEAL WAS NOT EATEN YET. PATIENT ASKED ME TO LEAVE IT SO SHE CAN EAT IT. LIMA EMPTIED. NOTHING MORE NEEDED AT THIS TIME
--- NOTE | 2020-12-31 19:38 | NUR ---
RECEIVED REPORT FROM DAY SHIFT RN. PATIENT IS RESTING IN BED EATING DINNER. NO FURTHER NEEDS NOTED. CALL LIGHT IN REACH.
--- NOTE | 2020-12-31 20:30 | NUR ---
ASSISTED PRIMARY RN ALAN. CHANGED PATIENT'S CHUCKS. V/S AND I&OS COMPLETED. PATIENT REPOSITIONED. CALL LIGHT WITHIN REACH. POURED 100 ML TO HER DRINKING CUP.
--- NOTE | 2020-12-31 20:45 | NUR ---
PATIENT ASSESEMENTS COMPLETED. PATIENTS LIMA EMPTIED AND CATH CARE COMPLETED. KIEL UNDER PATIENT IS SOAKED FROM PATIENTS ABD WEEPING. PATIENTS BEDDING CHANGED UNDER PATIENT. PATIENT IS ON 2L VIA NC. PATIENTS EVENING MEDICATIONS GIVEN PER ORDER. PATIENT RATES PAIN AT AN 8/10. PRN PAIN MEDICATION GIVEN PER ORDER. PATIENT GIVEN PRN NAUSEA MEDICATION PER ORDER. PATIENT REPOSITIONED IN BED. PATIENTS ALLEVYNS CHANGED ON HER COCYX DUE TO SATURATION FROM HER ABD WEEPING. PATIENTS DRESSING ON L LEG CHANGED. PATIENT DENIES ANY FURTHER NEEDS. PATIENT IS TEARFUL. PROVIDED SUPPORT.
--- NOTE | 2020-12-31 23:16 | NUR ---
PATIENT IS RESTING IN BED WITH EYES CLOSED, RR 19. CALL LIGHT IN REACH.
--- NOTE | 2020-12-31 23:46 | NUR ---
PATIENT CALLED AND NOTIFIED STAFF THAT SHE SPILLED WATER. PATIENTS WATER CUP WAS IN HER BED. PATIENTS GOWN OONLY HAS A SMALL SPOT OF WATER. OFFERED TO CHANGE PATIENTS GOWN. PATIENT REFUSED. PATIENT IS UPSET AND EXPRESSES FRUSTRATION WITH FLUID RESTRICTION. PATIENT EDUCATED ON THE IMPORTANCE OF HER FLUID RESTRICTION. PATIENT IS REFUSING TO WEAR BIPAP. PATIENT STATED "I CANT KEEP MY MOUTH MOIST AND THE MACHINE DRYS ME OUT". PATIENT DENIES ANY FURTHER NEEDS. CALL LIGHT IN REACH.
--- NOTE | 2021-01-01 01:24 | NUR ---
PATIENT CALLED AND REQUESTED TO BE REPOSITIONED. PATIENT REPOSITIONED IN BED. LOTION APPLIED TO PATIENTS LEGS. PATIENT IS REQUESTING MEDICATION FOR HER ANXIOUSNESS. PATIENT EDUCATED THAT HER PRN ANXIETY MEDICATION IS TO HELP WITH HER ANXIETY IN WEARING HER BIPAP. PATIENT STATED "WELL I WILL THINK ABOUT WEARING IT". PATIENT GIVEN PRN ANXIETY MEDICATION. PATIENT ENCOURAGED AGAIN TO WEAR BIPAP. PATIENT STATED " WILL CALL IF I WANT TO WEAR IT". NO FURTHER NEEDS NOTED. CALL LIGHT IN REACH.
--- NOTE | 2021-01-01 02:06 | NUR ---
PATIENT CALLED AND REQUESTED TO BE PLACED ON BIPAP. PATIENT REPORTS 8/10 PAIN IN HER ABD, NECK, AND BACK. PATIENT GIVEN PRN PAIN MEDICATION PER ORDER. PATIENT PLACED ON BIPAP. NO FURTHER NEEDS NOTED. CALL LIGHT IN REACH.
--- NOTE | 2021-01-01 03:50 | NUR ---
PATIENT IS RESTING IN BED WITH EYES CLSOED, RR 19. PATIENT IS WEARING BIPAP AT THIS TIME. CALL LIGHT IN REACH.
--- NOTE | 2021-01-01 04:33 | NUR ---
PATIENT HAD 350ML OF EMESIS. PATIENT GIVEN PRN NAUSEA MEDICATION PER ORDER. PATIENT DENIES ANY NEEDS. CALL LIGHT IN REACH. PATIENT IS RESTING IN RECLINER.
--- NOTE | 2021-01-01 04:40 | NUR ---
PATIENT IS RESTING IN BED WITH EYES CLOSED, RR 17. CALL LIGHT IN REACH.
--- NOTE | 2021-01-01 05:44 | NUR ---
PATIENTS VITALS TAKEN AND RECORED. LIMA EMPTIED AND SAMIA CARE COMPLETED. PATIENTS INTAKE AND OUPUT RECORDED. PATIENTS BIPAP TAKEN OFF. PATIENT WOULD LIKE TO TAKE A BREAK FROM HER BIPAP AT THIS TIME. NO NEEDS NOTED. CALL LIGHT IN REACH.
--- NOTE | 2021-01-01 06:04 | NUR ---
PATIENT RESTED WELL THROUGHOUT THE SHIFT. PATIENT IS ON A REGULAR DIET. PATIENT RECEIVED PRN NAUSEA AND PAIN MEDICAITON PER ORDER. PATIENT IS WORKING WITH PT/OT. PATIENT IS ON 2L VIA NC. PATIENT WORE BIPAP LATER IN THE SHIFT. PATIENT IS ON A FR OF 1000ML. PATIENT HAS WOUND CARE CONSULT. PATIENT IS A IVKA. PATIENT HAS A LIMA IN PLACE. PATIENT IS LBKA AND RAKA. PATIENT IS AAOX4.
--- NOTE | 2021-01-01 08:45 | NUR ---
Repositioned patient in the bed with andreia. Student nurse evy helped with repositioning. Patient refused breakfast says she doent want to eat reheated cream of wheat. Nurse notified. Call light within reach. No further needs at this time.
--- NOTE | 2021-01-01 10:00 | NUR ---
REPORT RECEIVED FROM NIGHT RN AND PT. CARE RESUMED. PT. IS WORKING WITH P.T. IN BED. LUNGS DIM. IN BASES BILAT. PT REPORTS 8/10 ACHING PAIN IN ABD. ADMIN. 10MG OXYCODONE. ANASARCA PRESENT IN ABDOMEN AND BLE. ABD. AND LABIA WEEPING WITH BLISTERS THAT HAVE OPENED. STUDENT NURSE REPORTED THAT EARLIER SHE HAD A LARGE AMOUNT OF CLEAR, THICK VAGINAL DISCHARGE AND ALL CHUX REPLACED UNDER PT. BOWEL TONES ACTIVE. IV SITE WNL AND FLUSHES WELL. SALINE LOCKED. PT. UPDATED ON TRANSFER PLAN. LEFT RESTING IN BED WITH CALL IGHT IN REACH.
--- NOTE | 2021-01-01 10:15 | NUR ---
Spoke with Alondra, plans on transfer to [facility] today as [facility] has not had any bed availability.
--- NOTE | 2021-01-01 11:30 | NUR ---
NOTIFIED REGARDING HER REQUEST FOR [facility] FOR TRANSPORT. ORDER PLACED.
--- NOTE | 2021-01-01 13:08 | NUR ---
PATIENT TRANSFERRED VIA STRETCHER WITH EMT. LEFT WILL ALL BELONGINGS EXCEPT BOTTLED MITCHELL AND CAREGIVER WILL WINE MASTER. LEFT WITH IV SITE INTACT AND FLUSHING WELL. REPORT GIVEN BY PHONE TO MERVAT GUILLEN AT [facility].
== END 2021-01-01 12:55 | disposition short-term general hospital (02) | DRG 280 ==
LOC: ED 07:50 → CCU 12:54 → MS 12-22 14:50
PROVIDERS: ADMIT Student in an Organized Health Care Education/Training Program; ATTEND Student in an Organized Health Care Education/Training Program
PROC: 5A09357 Assistance with Respiratory Ventilation, Less than 24 Consecutive Hours, Continuous Positive Airway Pressure (ICD-10-PCS; principal; 2020-12-21)
DX: I13.0 Hypertensive heart and chronic kidney disease with heart failure and stage 1 through stage 4 chronic kidney disease, or unspecified chronic kidney disease (principal); J96.01 Acute respiratory failure with hypoxia; I21.A1 Myocardial infarction type 2; I50.43 Acute on chronic combined systolic (congestive) and diastolic (congestive) heart failure; G92 Toxic encephalopathy; N39.0 Urinary tract infection, site not specified; E87.1 Hypo-osmolality and hyponatremia; N17.9 Acute kidney failure, unspecified; L03.114 Cellulitis of left upper limb; E66.2 Morbid (severe) obesity with alveolar hypoventilation; Z68.42 Body mass index [BMI] 45.0-49.9, adult; Z20.822 Contact with and (suspected) exposure to COVID-19; E11.22 Type 2 diabetes mellitus with diabetic chronic kidney disease; N18.9 Chronic kidney disease, unspecified; I25.2 Old myocardial infarction; R10.9 Unspecified abdominal pain; F32.9 Major depressive disorder, single episode, unspecified; F41.9 Anxiety disorder, unspecified; Z90.49 Acquired absence of other specified parts of digestive tract; R33.9 Retention of urine, unspecified; I27.20 Pulmonary hypertension, unspecified; E79.0 Hyperuricemia without signs of inflammatory arthritis and tophaceous disease; E80.6 Other disorders of bilirubin metabolism; I25.10 Atherosclerotic heart disease of native coronary artery without angina pectoris; Z95.5 Presence of coronary angioplasty implant and graft; Z95.810 Presence of automatic (implantable) cardiac defibrillator; Z89.512 Acquired absence of left leg below knee; Z98.890 Other specified postprocedural states; Z87.891 Personal history of nicotine dependence; Z88.2 Allergy status to sulfonamides; Z88.1 Allergy status to other antibiotic agents; Z88.5 Allergy status to narcotic agent; Z91.040 Latex allergy status; Z79.899 Other long term (current) drug therapy; Z79.82 Long term (current) use of aspirin
CPT/HCPCS: 36415; 51702; 71045; 74176; 80048; 80053; 81001; 82803; 83605; 83690; 83735; 83880; 84295; 84484; 85025; 85610; 85651; 87040; 87070; 87075; 87077; 87088; 87186; 87205; 93005; 93010; 93306; 94640; 94660; 94760; 97110; 97163; 97530; 97535; 99285-25; C9803; J0696; J0780; J1170; J1815; J1940; J2020; J2060; J2405; J3475; J3480; J3490; J7042; J7120; J7121; J7131; Q0177; Q9957; U0003

== ENCOUNTER 2021-01-20 16:31 | Emergency (ER) | payer MEDICARE, OTHER ==
[~2021-01-20] VITALS: Ht 177.8 cm; Wt 151.9 kg
[~2021-01-20 16:31] MED LIST changes: +ALLOPURINOL300 MG PO; +ATORVASTATIN CA80 MG PO; +FERROUS SULFAT324 MG PO; +METOPROLOL SUC100 MG PO; +MOVANTIK25 MG PO; +POTASSIUM CHLO10 ME2 PO
--- OUTSIDE RECORDS SUMMARY | 2021-01-20 16:36 | XMS ---
PreManage Notification: ADAM HINTON Security Epic Radiant Analyst Events No recent Security Events currently on file CRITERIA MET - Group Notification - [facility] - Has Care Guidelines - [facility] - 2 Visits in 30 Days CARE PROVIDERS SHILA ZAPIEN Internal Medicine Current PHONE: Unknown Maribel Burrows Community Health Worker 10/05/2019-Current PHONE: [phone] Angel Joseph DO [facility] Current PHONE: [phone] FIONA REAL Internal Medicine: Pulmonary Disease 10/01/2019-Current PHONE: Unknown Dimple Don Geomagnetician/Admitting Supervisor 10/20/2020-Current PHONE: [phone] Guidelines Source: [facility] [place] Guidelines Date: 09/07/2019 Care Coordination: Has\T\nbsp;received\T\nbsp;mental health services with [facility].\T\nbsp; Please contact [facility] with mental health\T\nbsp;concerns.\T\nbsp; [place]: [phone]\T\nbsp; [place]: [phone]. Care History Medical/Surgical 10/02/2019 [facility] - PATIENT IS NO LONGER ESTABLISHED WITH DR JAIMES-PCP. - CHW CALLED PATIENT TO HELP PATIENT ESTABLISH CARE WITH ANOTHER PROVIDER- MESSAGE LEFT. EYudi. VISIT COUNT (12 MO.) [address] TOTAL 4 NOTE: Visits indicate total known visits. ED/UCC VISIT TRACKING (12 MO.) 01/20/2021 16:32 [facility] TYPE: Emergency COMPLAINT: - CATHITER ISSUE 12/21/2020 07:51 [facility] TYPE: Emergency COMPLAINT: - STOMACH PAIN, SHORTNESS OF BREATH 10/25/2020 23:52 [facility] TYPE: Emergency COMPLAINT: - CONSTIPATION DIAGNOSES: - Personal history of nicotine dependence - Allergy status to sulfonamides - Old myocardial infarction - Heart failure, unspecified - Hypertensive heart disease with heart failure - penitentiary (current) use of insulin - Retention of urine, unspecified - Latex allergy status - Allergy status to other antibiotic agents - Constipation, unspecified - Allergy status to other drugs, medicaments and biological substances - Other skilled nursing (current) drug therapy - Type 2 diabetes mellitus without complications 01/23/2020 11:54 [facility] TYPE: Emergency DIAGNOSES: - Hyperglycemia, unspecified - Viral infection, unspecified - ELEVATED BLOOD SUGAR/POSSIBLE COVID EXPOSURE - ELEVATED BLOOD SUGAR INPATIENT VISIT TRACKING (12 MO.) 01/01/2021 14:47 [facility] TYPE: Medical Surgical COMPLAINT: - PLEURAL EFFUSION, RENAL FAILURE 12/21/2020 12:54 [facility] TYPE: Medical Surgical COMPLAINT: - STOMACH PAIN, SHORTNESS OF BREATH DIAGNOSES: - Acute on chronic combined systolic (congestive) and diastolic (congestive) heart failure - Pulmonary hypertension, unspecified - Latex allergy status - Presence of automatic (implantable) cardiac defibrillator - Acute respiratory failure with hypoxia - Acute respiratory failure with hypoxia - Hypo-osmolality and hyponatremia - Retention of urine, unspecified - Hypertensive heart and chronic kidney disease with heart failure and stage 1 through stage 4 chronic kidney disease, or unspecified chronic kidney disease - Hypo-osmolality and hyponatremia - Urinary tract infection, site not specified - Hyperuricemia without signs of inflammatory arthritis and tophaceous disease - Acquired absence of other specified parts of digestive tract - Anxiety disorder, unspecified - penitentiary (current) use of aspirin - Retention of urine, unspecified - Major depressive disorder, single episode, unspecified - Cellulitis of left upper limb - Other specified postprocedural states - Chronic kidney disease, unspecified - Old myocardial infarction - Toxic encephalopathy - Anxiety disorder, unspecified - 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 - Acute kidney failure, unspecified - Unspecified abdominal pain - 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 - Urinary tract infection, site not specified - Myocardial infarction type 2 - Toxic encephalopathy - Presence of automatic (implantable) cardiac defibrillator - Pulmonary hypertension, unspecified - Other middle or intermediate school principal (current) drug therapy - Acquired absence of other specified parts of digestive tract - Type 2 diabetes mellitus with diabetic chronic kidney disease - Allergy status to other antibiotic agents - Acquired absence of left leg below knee - Cellulitis of left upper limb - Personal history of nicotine dependence - Type 2 diabetes mellitus with diabetic chronic kidney disease - Hyperuricemia without signs of inflammatory arthritis and tophaceous disease - Personal history of nicotine dependence - Allergy status to sulfonamides - Allergy status to narcotic agent - Morbid (severe) obesity with alveolar hypoventilation - Major depressive disorder, single episode, unspecified - Latex allergy status - Acquired absence of left leg below knee - Body mass index [BMI] 45.0-49.9, adult - Presence of coronary angioplasty implant and graft - Allergy status to sulfonamides - intermodal customer service (current) use of aspirin - Allergy status to narcotic agent - Acute on chronic combined systolic (congestive) and diastolic (congestive) heart failure - Chronic kidney disease, unspecified - Acute kidney failure, unspecified - Other disorders of bilirubin metabolism - Presence of coronary angioplasty implant and graft - Other disorders of bilirubin metabolism - Allergy status to other antibiotic agents - Old myocardial infarction - Body mass index [BMI] 45.0-49.9, adult - Myocardial infarction type 2 - Other specified postprocedural states - Morbid (severe) obesity with alveolar hypoventilation - Other middle or intermediate school principal (current) drug therapy - Hypertensive heart and chronic kidney disease with heart failure and stage 1 through stage 4 chronic kidney disease, or unspecified chronic kidney disease [email or web address]
[2021-01-20] MEDS ORDERED: MIDODRINE HCL10 MG PO (16:55)
[2021-01-20] MEDS ORDERED: FUROSEMIDE40 MG PO (16:55)
== END 2021-01-20 17:27 | disposition home or self-care (01) ==
LOC: ED 16:31
DX: T83.84XA Pain due to genitourinary prosthetic devices, implants and grafts, initial encounter (principal); E11.9 Type 2 diabetes mellitus without complications; I11.0 Hypertensive heart disease with heart failure; I50.9 Heart failure, unspecified; I25.2 Old myocardial infarction; N17.9 Acute kidney failure, unspecified; E78.00 Pure hypercholesterolemia, unspecified; Z87.891 Personal history of nicotine dependence; Z88.2 Allergy status to sulfonamides; Z88.8 Allergy status to other drugs, medicaments and biological substances; Z91.040 Latex allergy status; Z88.1 Allergy status to other antibiotic agents; Z91.018 Allergy to other foods; Z79.899 Other long term (current) drug therapy; Z79.4 Long term (current) use of insulin
CPT/HCPCS: 51702; 99282-25

== ENCOUNTER 2021-01-25 18:09 | Emergency (ER) | payer MEDICARE, OTHER ==
[~2021-01-25] VITALS: Ht 177.8 cm; Wt 146.5 kg
[~2021-01-25 18:09] MED LIST changes: +DAILY VITE1 EACH PO; -FLUTICASONE PRO16 GM NAS; +MIDODRINE HCL10 MG PO; -MULTIVITAMINS1 EAC7 PO
--- OUTSIDE RECORDS SUMMARY | 2021-01-25 18:12 | XMS ---
PreManage Notification: ADAM HINTON Security Directory Operator Events No recent Security Events currently on file CRITERIA MET - Group Notification - [facility] - Has Care Guidelines - PDMP - [facility] - 2 Visits in 30 Days CARE PROVIDERS SHILA ZAPIEN Internal Medicine Current PHONE: Unknown Maribel Burrows Community Health Worker 10/05/2019-Current PHONE: [phone] Angel Joseph DO [facility] Current PHONE: [phone] FIONA REAL Internal Medicine: Pulmonary Disease 10/01/2019-Current PHONE: Unknown Dimple Don Damaged Freight Inspector/Liquor Clerk 10/20/2020-Current PHONE: [phone] Guidelines Source: [facility] [place] Guidelines Date: 09/07/2019 Care Coordination: Has\T\nbsp;received\T\nbsp;mental health services with [facility].\T\nbsp; Please contact [facility] with mental health\T\nbsp;concerns.\T\nbsp; [place]: [phone]\T\nbsp; [place]: [phone]. Care History Medical/Surgical 01/21/2021 [facility] *PCP DR SHILA ZAPIEN [facility] [phone] 10/02/2019 [facility] - PATIENT IS NO LONGER ESTABLISHED WITH DR JAIMES-PCP. - CHW CALLED PATIENT TO HELP PATIENT ESTABLISH CARE WITH ANOTHER PROVIDER- MESSAGE LEFT. E.D. VISIT COUNT (12 MO.) 4 [facility]. TOTAL 4 NOTE: Visits indicate total known visits. ED/UCC VISIT TRACKING (12 MO.) 01/25/2021 18:09 [facility] TYPE: Emergency COMPLAINT: - CATH PAIN 01/20/2021 16:32 [facility] [place] TYPE: Emergency COMPLAINT: - CATHITER ISSUE DIAGNOSES: - Personal history of nicotine dependence - Other group home (current) drug therapy - Pure hypercholesterolemia, unspecified - Allergy to other foods - Heart failure, unspecified - Hypertensive heart disease with heart failure - Allergy status to other drugs, medicaments and biological substances - Pain due to genitourinary prosthetic devices, implants and grafts, initial encounter - Acute kidney failure, unspecified - Allergy status to other antibiotic agents - Latex allergy status - Encounter for fitting and adjustment of urinary device - Type 2 diabetes mellitus without complications - Allergy status to sulfonamides - senior living (current) use of insulin - Pain due to genitourinary prosthetic devices, implants and grafts, initial encounter - Old myocardial infarction 12/21/2020 07:51 [facility] [place] TYPE: Emergency COMPLAINT: - STOMACH PAIN, SHORTNESS OF BREATH 10/25/2020 23:52 [facility] [place] TYPE: Emergency COMPLAINT: - CONSTIPATION DIAGNOSES: - Personal history of nicotine dependence - Allergy status to sulfonamides - Old myocardial infarction - Heart failure, unspecified - Hypertensive heart disease with heart failure - senior living (current) use of insulin - Retention of urine, unspecified - Latex allergy status - Allergy status to other antibiotic agents - Constipation, unspecified - Allergy status to other drugs, medicaments and biological substances - Other termite technician (current) drug therapy - Type 2 diabetes mellitus without complications INPATIENT VISIT TRACKING (12 MO.) 01/01/2021 14:47 Maggie Manriquez [place] TYPE: Medical Surgical COMPLAINT: - PLEURAL EFFUSION, RENAL FAILURE DIAGNOSES: 0. Fluid overload, unspecified 1. Hypertensive heart and chronic kidney disease with heart failure and stage 1 through stage 4 chronic kidney disease, or unspecified chronic kidney disease 2. Acute on chronic systolic (congestive) heart failure 3. Respiratory failure, unspecified with hypoxia 4. Cellulitis of left lower limb 5. Cellulitis of left upper limb 6. Body mass index [BMI] 45.0-49.9, adult 7. Hypo-osmolality and hyponatremia 8. Unspecified protein-calorie malnutrition 9. Acute kidney failure, unspecified 10. Chronic kidney disease, stage 4 (severe) 11. Hypotension, unspecified 12. Pseudomonas (aeruginosa) (mallei) (pseudomallei) as the cause of diseases classified elsewhere 13. Methicillin resistant Staphylococcus aureus infection as the cause of diseases classified elsewhere 14. Major depressive disorder, single episode, unspecified 15. Anemia in chronic kidney disease 16. Type 2 diabetes mellitus with diabetic chronic kidney disease 17. Atherosclerotic heart disease of [place] coronary artery without angina pectoris 18. Morbid (severe) obesity due to excess calories 19. Hypomagnesemia 20. Other chronic pain 21. Hyperlipidemia, unspecified 22. Retention of urine, unspecified 23. Anxiety disorder, unspecified 24. Pulmonary hypertension, unspecified 25. CONTACT W \E\T\E\ (SUSP) EXPOS COVID-19 26. Proteinuria, unspecified 27. Other constipation 28. Acquired absence of left leg below knee 29. Acquired absence of right leg below knee 30. Acquired absence of left finger(s) 31. Presence of coronary angioplasty implant and graft 32. Presence of cardiac pacemaker 33. Allergy status to narcotic agent 34. Allergy status to sulfonamides 35. Allergy status to other drugs, medicaments and biological substances 36. Allergy status to analgesic agent 37. Allergy status to other antibiotic agents 38. Latex allergy status 39. senior living (current) use of insulin 40. Other termite technician (current) drug therapy 41. termite control technician (current) use of aspirin 42. termite control technician (current) use of opiate analgesic 43. Family history of diabetes mellitus 44. Family history of malignant neoplasm, unspecified 45. Personal history of nicotine dependence 12/21/2020 12:[address] [facility] [place] TYPE: Medical Surgical COMPLAINT: - STOMACH [...] digestive tract - Anxiety disorder, unspecified - termite control technician (current) use of aspirin - Retention of urine, unspecified - Major depressive disorder, single episode, unspecified - Cellulitis of left upper limb - Other specified postprocedural states - Chronic kidney disease, unspecified - Old myocardial infarction - Toxic encephalopathy - Anxiety disorder, unspecified - Atherosclerotic heart disease of [place] coronary artery without angina pectoris - Acute kidney failure, unspecified - Unspecified abdominal pain - Atherosclerotic heart disease of [place] coronary artery without angina pectoris - Urinary tract infection, site not specified - Myocardial infarction type 2 - Toxic encephalopathy - Presence of automatic (implantable) cardiac defibrillator - Pulmonary hypertension, unspecified - Other group home (current) drug therapy - Acquired absence of [...] graft - Allergy status to sulfonamides - termite control technician (current) use of aspirin - Allergy status [...] (severe) obesity with alveolar hypoventilation - Other termite technician (current) drug therapy - Hypertensive heart and chronic kidney disease with heart failure and stage 1 through stage 4 chronic kidney disease, or unspecified chronic kidney disease [email or web address]
== END 2021-01-25 22:11 | disposition home or self-care (01) ==
LOC: ED 18:09
DX: T83.018A Breakdown (mechanical) of other urinary catheter, initial encounter (principal); E11.9 Type 2 diabetes mellitus without complications; I11.0 Hypertensive heart disease with heart failure; I50.9 Heart failure, unspecified; I25.2 Old myocardial infarction; E78.00 Pure hypercholesterolemia, unspecified; Z87.891 Personal history of nicotine dependence; Z88.2 Allergy status to sulfonamides; Z88.8 Allergy status to other drugs, medicaments and biological substances; Z91.040 Latex allergy status; Z91.018 Allergy to other foods; Z88.5 Allergy status to narcotic agent; Z79.899 Other long term (current) drug therapy; Z79.4 Long term (current) use of insulin
CPT/HCPCS: 99283

== ENCOUNTER 2021-02-01 23:19 | Emergency (ER) | payer MEDICARE ==
[~2021-02-01] VITALS: Ht 177.8 cm; Wt 146.5 kg
--- OUTSIDE RECORDS SUMMARY | 2021-02-01 23:22 | XMS ---
PreManage Notification: ADAM HINTON Security Manager Deli Events No recent Security Events currently on file CRITERIA MET - Group Notification - [facility] - Has Care Guidelines - PDMP - [facility] - 2 Visits in 30 Days CARE PROVIDERS SHILA ZAPIEN Internal Medicine Current PHONE: Unknown Maribel Burrows Community Health Worker 10/05/2019-Current PHONE: [phone] Angel Joseph DO [facility] Current PHONE: [phone] FIONA REAL Internal Medicine: Pulmonary Disease 10/01/2019-Current PHONE: Unknown Dimple Don Mexican Food Maker Hand/Retail Advertising Account Executive 10/20/2020-Current PHONE: [phone] Guidelines Source: [facility] [place] Guidelines Date: 09/07/2019 Care Coordination: Has\T\nbsp;received\T\nbsp;mental health services with [facility].\T\nbsp; Please contact [facility] with mental health\T\nbsp;concerns.\T\nbsp; [place]: [phone]\T\nbsp; [place]: [phone]. Care History Medical/Surgical 01/21/2021 [facility] *PCP DR SHILA ZAPIEN [facility] [phone] 10/02/2019 [facility] - PATIENT IS NO LONGER ESTABLISHED WITH DR JAIMES-PCP. - CHW CALLED PATIENT TO HELP PATIENT ESTABLISH CARE WITH ANOTHER PROVIDER- MESSAGE LEFT. E.D. VISIT COUNT (12 MO.) 5 [facility]. TOTAL 5 NOTE: Visits indicate total known visits. ED/UCC VISIT TRACKING (12 MO.) 02/01/2021 23:20 [facility] [place] TYPE: Emergency COMPLAINT: - CATH PROBLEM 01/25/2021 18:09 [facility] [place] TYPE: Emergency COMPLAINT: - CATH PROBLEM DIAGNOSES: - Old myocardial infarction - Pelvic and perineal pain - Heart failure, unspecified - Other intermediate manager (current) drug therapy - Hypertensive heart disease with heart failure - Allergy to other foods - Type 2 diabetes mellitus without complications - Personal history of nicotine dependence - Breakdown (mechanical) of other urinary catheter, initial encounter - senior living (current) use of insulin - Pure hypercholesterolemia, unspecified - Latex allergy status - Breakdown (mechanical) of other urinary catheter, initial encounter - Allergy status to sulfonamides - Allergy status to narcotic agent - Allergy status to other drugs, medicaments and biological substances 01/20/2021 16:32 [facility] [place] TYPE: Emergency COMPLAINT: - CATHITER ISSUE DIAGNOSES: - Personal history of nicotine dependence - Other intermediate manager (current) drug therapy - Pure hypercholesterolemia, unspecified [...] complications - Allergy status to sulfonamides - middle or intermediate school principal (current) use of insulin - Pain due [...] Hypertensive heart disease with heart failure - middle or intermediate school principal (current) use of insulin - Retention of urine, unspecified - Latex allergy status - Allergy status to other antibiotic agents - Constipation, unspecified - Allergy status to other drugs, medicaments and biological substances - Other intermediate manager (current) drug therapy - Type 2 diabetes mellitus without complications INPATIENT VISIT TRACKING (12 MO.) 01/01/2021 14:[address] [facility] TYPE: Medical Surgical COMPLAINT: - PLEURAL EFFUSION, RENAL FAILURE DIAGNOSES: 0. Fluid overload, unspecified 1. Hypertensive heart and chronic kidney disease with heart failure and stage 1 through stage 4 chronic kidney disease, or unspecified chronic kidney disease 2. Acute on chronic systolic (congestive) heart failure 3. Respiratory failure, unspecified with hypoxia 4. Pressure ulcer of right buttock, stage 4 4. Cellulitis of left lower limb 5. Cellulitis of left upper limb 5. Cellulitis of left lower limb 6. Body mass index [BMI] 45.0-49.9, adult 7. Hypo-osmolality and hyponatremia 8. Unspecified protein-calorie malnutrition 9. Acute kidney failure, unspecified 10. Chronic kidney disease, stage 4 (severe) 11. Hypotension, unspecified 11. Major depressive disorder, recurrent, unspecified 12. Pseudomonas (aeruginosa) (mallei) (pseudomallei) as the cause of diseases classified elsewhere 12. Hypotension, unspecified 13. Methicillin resistant Staphylococcus aureus infection as the cause of diseases classified elsewhere 13. Pseudomonas (aeruginosa) (mallei) (pseudomallei) as the cause of diseases classified elsewhere 14. Major depressive disorder, single episode, unspecified 14. Methicillin resistant Staphylococcus aureus infection as the cause of diseases classified elsewhere 15. Anemia in chronic kidney disease 16. Type 2 diabetes mellitus with diabetic chronic kidney disease 17. Atherosclerotic heart disease of [place] coronary artery without angina pectoris 18. Morbid (severe) obesity due to excess calories 19. Hypomagnesemia 20. Other chronic pain 21. Hyperlipidemia, unspecified 22. Retention of urine, unspecified 23. Anxiety disorder, unspecified 24. Pulmonary hypertension, unspecified 25. CONTACT W \E\T\E\ (SUSP) EXPOS COVID-19 26. Proteinuria, unspecified 27. Other constipation 28. Pressure ulcer of sacral region, stage 1 28. Acquired absence of left leg below knee 29. Acquired absence of left leg below knee 29. Acquired absence of right leg below knee 30. Acquired absence of right leg below knee 30. Acquired absence of left finger(s) 31. Presence of coronary angioplasty implant and graft 31. Acquired absence of left finger(s) 32. Presence of cardiac pacemaker 32. Presence of coronary angioplasty implant and graft 33. Allergy status to narcotic agent 33. Presence of cardiac pacemaker 34. Allergy status to sulfonamides 34. Allergy status to narcotic agent 35. Allergy status to other drugs, medicaments and biological substances 35. Allergy status to sulfonamides 36. Allergy status to analgesic agent 36. Allergy status to other drugs, medicaments and biological substances 37. Allergy status to other antibiotic agents 37. Allergy status to analgesic agent 38. Allergy status to other antibiotic agents 38. Latex allergy status 39. Latex allergy status 39. middle or intermediate school principal (current) use of insulin 40. Other longterm (current) drug therapy 40. middle or intermediate school principal (current) use of insulin 41. middle or intermediate school principal (current) use of aspirin 41. Other longterm (current) drug therapy 42. middle or intermediate school principal (current) use of opiate analgesic 42. middle or intermediate school principal (current) use of aspirin 43. senior living (current) use of opiate analgesic 43. Family history of diabetes mellitus 44. Family history of diabetes mellitus 44. Family history of malignant neoplasm, unspecified 45. Personal history of nicotine dependence 45. Family history of malignant neoplasm, unspecified 46. Personal history of nicotine dependence 12/21/2020 12:54 [...] digestive tract - Anxiety disorder, unspecified - senior living (current) use of aspirin - Retention of urine, unspecified - Major depressive disorder, single episode, unspecified - Cellulitis of left upper limb - Other specified postprocedural states - Chronic kidney disease, unspecified - Old myocardial infarction - Toxic encephalopathy - Anxiety disorder, unspecified - Atherosclerotic heart disease of [place] coronary artery without angina pectoris - Acute kidney failure, unspecified - Unspecified abdominal pain - Atherosclerotic heart disease of [place] coronary artery without angina pectoris - Urinary tract infection, site not specified - Myocardial infarction type 2 - Toxic encephalopathy - Presence of automatic (implantable) cardiac defibrillator - Pulmonary hypertension, unspecified - Other longterm (current) drug therapy - Acquired absence of [...] graft - Allergy status to sulfonamides - senior living (current) use of aspirin - Allergy status [...] (severe) obesity with alveolar hypoventilation - Other longterm (current) drug therapy - Hypertensive heart and chronic kidney disease with heart failure and stage 1 through stage 4 chronic kidney disease, or unspecified chronic kidney disease [email or web address]
== END 2021-02-02 06:09 | disposition home or self-care (01) ==
LOC: ED 23:19
DX: N83.8 Other noninflammatory disorders of ovary, fallopian tube and broad ligament (principal); Z46.6 Encounter for fitting and adjustment of urinary device; E11.9 Type 2 diabetes mellitus without complications; I11.0 Hypertensive heart disease with heart failure; I50.9 Heart failure, unspecified; I25.2 Old myocardial infarction; E78.00 Pure hypercholesterolemia, unspecified; Z87.891 Personal history of nicotine dependence; Z88.2 Allergy status to sulfonamides; Z91.040 Latex allergy status; Z88.8 Allergy status to other drugs, medicaments and biological substances; Z88.1 Allergy status to other antibiotic agents; Z88.5 Allergy status to narcotic agent; Z91.018 Allergy to other foods; Z79.899 Other long term (current) drug therapy; Z79.82 Long term (current) use of aspirin; Z79.4 Long term (current) use of insulin
CPT/HCPCS: 51702; 74176; 80053; 81001; 83690; 85025; 99284-25; A9270-GY; J1170; J2405

== ENCOUNTER 2021-02-04 18:23 | Emergency (ER) | payer MEDICARE, OTHER ==
[~2021-02-04] VITALS: Ht 172.7 cm; Wt 113.4 kg
--- OUTSIDE RECORDS SUMMARY | 2021-02-04 18:30 | XMS ---
PreManage Notification: ADAM HINTON Security Flat Bed Knitter Events No recent Security Events currently on file CRITERIA MET - Group Notification - 6 ED Visits in 6 Months - [facility] - Has Care Guidelines - [facility] - 2 Visits in 30 Days CARE PROVIDERS SHILA ZAPIEN Internal Medicine Current PHONE: Unknown Maribel Burrows Community Health Worker 10/05/2019-Current PHONE: [phone] Angel Joseph DO [facility] Current PHONE: [phone] FIONA REAL Internal Medicine: Pulmonary Disease 10/01/2019-Current PHONE: Unknown Dimple Don Compensator Worker/Workforce Specialist 10/20/2020-Current PHONE: [phone] Guidelines Source: [facility] [place] Guidelines Date: 09/07/2019 Care Coordination: Has\T\nbsp;received\T\nbsp;mental health services with [facility].\T\nbsp; Please contact [facility] with mental health\T\nbsp;concerns.\T\nbsp; [place]: [phone]\T\nbsp; [place]: [phone]. Care History Medical/Surgical 01/21/2021 [facility] *PCP DR SHILA ZAPIEN [facility] [phone] 10/02/2019 [facility] - PATIENT IS NO LONGER ESTABLISHED WITH DR JAIMES-PCP. - CHW CALLED PATIENT TO HELP PATIENT ESTABLISH CARE WITH ANOTHER PROVIDER- MESSAGE LEFT. E.D. VISIT COUNT ([address] [facility]. TOTAL 6 NOTE: Visits indicate total known visits. ED/UCC VISIT TRACKING (12 MO.) 02/04/2021 18:24 [facility] [place] TYPE: Emergency COMPLAINT: - WEAKNESS, HEADACHE 02/01/2021 23:20 [facility] [place] TYPE: Emergency COMPLAINT: - CATH PROBLEM DIAGNOSES: - Lower abdominal pain, unspecified - Old myocardial infarction - technician terminal and repeater (current) use of aspirin - Personal history of nicotine dependence - Hypertensive heart disease with heart failure - Encounter for fitting and adjustment of urinary device - Allergy status to other antibiotic agents - Allergy status to sulfonamides - Pure hypercholesterolemia, unspecified - Latex allergy status - Other noninflammatory disorders of ovary, fallopian tube and broad ligament - Allergy status to other drugs, medicaments and biological substances - Type 2 diabetes mellitus without complications - Other termite treater helper (current) drug therapy - technician terminal and repeater (current) use of insulin - Allergy to other foods - Heart failure, unspecified - Allergy status to narcotic agent 01/25/2021 18:09 [facility] [place] TYPE: Emergency COMPLAINT: - CATH PROBLEM DIAGNOSES: - Old myocardial infarction - Pelvic and perineal pain - Heart failure, unspecified - Other termite treater helper (current) drug therapy - Hypertensive heart disease with heart failure - Allergy to other foods - Type 2 diabetes mellitus without complications - Personal history of nicotine dependence - Breakdown (mechanical) of other urinary catheter, initial encounter - prison (current) use of insulin - Pure hypercholesterolemia, unspecified - Latex allergy status - Breakdown (mechanical) of other urinary catheter, initial encounter - Allergy status to sulfonamides - Allergy status to narcotic agent - Allergy status to other drugs, medicaments and biological substances 01/20/2021 16:32 [facility] [place] TYPE: Emergency COMPLAINT: - CATHITER ISSUE DIAGNOSES: - Personal history of nicotine dependence - Other assisted (current) drug therapy - Pure hypercholesterolemia, unspecified [...] complications - Allergy status to sulfonamides - prison (current) use of insulin - Pain due [...] Hypertensive heart disease with heart failure - technician terminal and repeater (current) use of insulin - Retention of urine, unspecified - Latex allergy status - Allergy status to other antibiotic agents - Constipation, unspecified - Allergy status to other drugs, medicaments and biological substances - Other assisted (current) drug therapy - Type 2 diabetes mellitus without complications INPATIENT VISIT TRACKING (12 MO.) 01/01/2021 14:47 [facility] COMPLAINT: - PLEURAL [...] kidney disease 17. Atherosclerotic heart disease of [place] coronary artery without angina pectoris 18. Morbid [...] allergy status 39. Latex allergy status 39. technician terminal and repeater (current) use of insulin 40. Other termite treater helper (current) drug therapy 40. technician terminal and repeater (current) use of insulin 41. technician terminal and repeater (current) use of aspirin 41. Other assisted (current) drug therapy 42. prison (current) use of opiate analgesic 42. prison (current) use of aspirin 43. prison (current) use of opiate analgesic 43. Family [...] digestive tract - Anxiety disorder, unspecified - technician terminal and repeater (current) use of aspirin - Retention of urine, unspecified - Major depressive disorder, single episode, unspecified - Cellulitis of left upper limb - Other specified postprocedural states - Chronic kidney disease, unspecified - Old myocardial infarction - Toxic encephalopathy - Anxiety disorder, unspecified - Atherosclerotic heart disease of [place] coronary artery without angina pectoris - Acute kidney failure, unspecified - Unspecified abdominal pain - Atherosclerotic heart disease of [place] coronary artery without angina pectoris - Urinary tract infection, site not specified - Myocardial infarction type 2 - Toxic encephalopathy - Presence of automatic (implantable) cardiac defibrillator - Pulmonary hypertension, unspecified - Other assisted (current) drug therapy - Acquired absence of [...] graft - Allergy status to sulfonamides - technician terminal and repeater (current) use of aspirin - Allergy status [...] (severe) obesity with alveolar hypoventilation - Other assisted (current) drug therapy - Hypertensive heart and chronic kidney disease with heart failure and stage 1 through stage 4 chronic kidney disease, or unspecified chronic kidney disease [email or web address]
--- NOTE | 2021-02-04 22:34 | EKG ---
[facility] [address] [place] [address] Signed Sinus rhythm with frequent and consecutive premature ventricular complexes Possible Left atrial enlargement Rightward axis Low voltage QRS Incomplete right bundle branch block Inferior infarct , age undetermined Cannot rule out Anteroseptal infarct (cited on or before 20-DEC-2016) Abnormal ECG When compared with ECG of 21-DEC-2020 07:54, premature ventricular complexes are now present Nonspecific T wave abnormality, worse in Inferior leads Nonspecific T wave abnormality, worse in Anterolateral leads QT has lengthened Confirmed by AICHA GRAY MD ([id number]) on 02/04/2021 10:34:11 PM Electronically Signed By: AICHA GRAY MD 02/04/212233 PATIENT NAME: ADAM HINTON Electrocardiogram DATE OF : 72 PHYSICIAN: AICHA GRAY MD REPORT #: [id number] REPORT IS CONFIDENTIAL AND NOT TO BE RELEASED WITHOUT AUTHORIZATION
== END 2021-02-05 06:23 | disposition short-term general hospital (02) ==
LOC: ED 18:23
DX: T82.198A Other mechanical complication of other cardiac electronic device, initial encounter (principal); E83.42 Hypomagnesemia; I50.1 Left ventricular failure, unspecified; E87.70 Fluid overload, unspecified; E11.9 Type 2 diabetes mellitus without complications; I25.2 Old myocardial infarction; I11.0 Hypertensive heart disease with heart failure; E78.00 Pure hypercholesterolemia, unspecified; Z88.2 Allergy status to sulfonamides; Z91.040 Latex allergy status; Z88.8 Allergy status to other drugs, medicaments and biological substances; Z91.018 Allergy to other foods; Z88.1 Allergy status to other antibiotic agents; Z88.5 Allergy status to narcotic agent; Z79.899 Other long term (current) drug therapy; Z79.82 Long term (current) use of aspirin; Z79.4 Long term (current) use of insulin; Z20.822 Contact with and (suspected) exposure to COVID-19
CPT/HCPCS: 71045; 80053; 81001; 83735; 83880; 84484; 85025; 93005; 93010; 96374; 96375; 96376; 99285-25; C9803; J1940; J2405; J3010; J7120; J7121; U0003

== ENCOUNTER 2021-02-11 18:18 | Emergency (ER) | payer MEDICARE, OTHER ==
[~2021-02-11] VITALS: Ht 172.7 cm; Wt 113.4 kg
--- OUTSIDE RECORDS SUMMARY | 2021-02-11 18:20 | XMS ---
PreManage Notification: ADAM HINTON Security Machine Erector Events No recent Security Events currently on file CRITERIA MET - Group Notification - 6 ED Visits in 6 Months - [facility] - Has Care Guidelines - PDMP - [facility] - 2 Visits in 30 Days CARE PROVIDERS SHILA ZAPIEN Internal Medicine Current PHONE: Unknown Maribel Burrows Community Health Worker 10/05/2019-Current PHONE: [phone] Angel Joseph DO [facility] Current PHONE: [phone] FIONA REAL Internal Medicine: Pulmonary Disease 10/01/2019-Current PHONE: Unknown Dimple Don Relay Motorman/Station Engineer 10/20/2020-Current PHONE: [phone] Guidelines Source: [employer] [facility] Guidelines Date: 09/07/2019 Care Coordination: Has\T\nbsp;received\T\nbsp;mental health services with [employer].\T\nbsp; Please contact [employer] with mental health\T\nbsp;concerns.\T\nbsp; [place]: [phone]\T\nbsp; [place]: [phone]. Care History Medical/Surgical 01/21/2021 [facility] *PCP DR SHILA ZAPIEN [facility] [phone] 10/02/2019 [facility] - PATIENT IS NO LONGER ESTABLISHED WITH DR JAIMES-PCP. - CHW CALLED PATIENT TO HELP PATIENT ESTABLISH CARE WITH ANOTHER PROVIDER- MESSAGE LEFT. E.D. VISIT COUNT (12 MO.) 7 [facility]. TOTAL 7 NOTE: Visits indicate total known visits. ED/UCC VISIT TRACKING (12 MO.) 02/11/2021 18:18 [facility] TYPE: Emergency COMPLAINT: - POST OP PROBLEM 02/04/2021 18:24 [facility] TYPE: Emergency COMPLAINT: - WEAKNESS, HEADACHE DIAGNOSES: - Left ventricular failure, unspecified - Other mechanical complication of other cardiac electronic device, initial encounter - Allergy status to other antibiotic agents - Allergy to other foods - Allergy status to other drugs, medicaments and biological substances - Hypertensive heart disease with heart failure - Fluid overload, unspecified - Allergy status to narcotic agent - Latex allergy status - Other abnormal findings in urine - exterminator termite (current) use of insulin - exterminator termite (current) use of aspirin - [facility] [place] [facility] [place] drug therapy - Other mechanical complication of unspecified cardiac device, initial encounter - Weakness - Type 2 diabetes mellitus without complications - Allergy status to sulfonamides - Old myocardial infarction - Hypomagnesemia - Pure hypercholesterolemia, unspecified - Other specified complication of cardiac prosthetic devices, implants and grafts, initial encounter 02/01/2021 23:20 [facility] TYPE: Emergency COMPLAINT: - CATH PROBLEM DIAGNOSES: - Lower abdominal pain, unspecified - Old myocardial infarction - half-way (current) use of aspirin - Personal history [...] 2 diabetes mellitus without complications - Other machine long goods helper (current) drug therapy - exterminator termite (current) use of insulin - Allergy to other foods - Heart failure, unspecified - Allergy status to narcotic agent 01/25/2021 18:09 [facility] TYPE: Emergency COMPLAINT: - CATH PROBLEM DIAGNOSES: - Old myocardial infarction - Pelvic and perineal pain - Heart failure, unspecified - Other machine long goods helper (current) drug therapy - Hypertensive heart disease with heart failure - Allergy to other foods - Type 2 diabetes mellitus without complications - Personal history of nicotine dependence - Breakdown (mechanical) of other urinary catheter, initial encounter - exterminator termite (current) use of insulin - Pure hypercholesterolemia, unspecified - Latex allergy status - Breakdown (mechanical) of other urinary catheter, initial encounter - Allergy status to sulfonamides - Allergy status to narcotic agent - Allergy status to other drugs, medicaments and biological substances 01/20/2021 16:32 [facility] TYPE: Emergency COMPLAINT: - CATHITER ISSUE DIAGNOSES: - Personal history of nicotine dependence - Other machine long goods helper (current) drug therapy - Pure hypercholesterolemia, unspecified [...] complications - Allergy status to sulfonamides - exterminator termite (current) use of insulin - Pain due [...] Hypertensive heart disease with heart failure - exterminator termite (current) use of insulin - Retention of urine, unspecified - Latex allergy status - Allergy status to other antibiotic agents - Constipation, unspecified - Allergy status to other drugs, medicaments and biological substances - [place] [facility] [place] drug therapy - Type 2 diabetes mellitus without complications INPATIENT VISIT TRACKING (12 MO.) 02/05/2021 07:50 [facility] TYPE: Internal Medicine DIAGNOSES: - Essential (primary) hypertension - Encounter for adjustment and management of automatic implantable cardiac defibrillator - Chronic kidney disease, stage 4 (severe) - Chronic combined systolic (congestive) and diastolic (congestive) heart failure - Unspecified severe protein-calorie malnutrition - Atherosclerotic heart disease of [place] coronary artery with other forms of angina pectoris - Other specified personal risk factors, not elsewhere classified - Localized edema - Retention of urine, unspecified - Ischemic cardiomyopathy - Presence of automatic (implantable) cardiac defibrillator - Anemia in chronic kidney disease - Breakdown (mechanical) of other cardiac electronic device, initial encounter - Chronic systolic (congestive) heart failure - Morbid (severe) obesity due to excess calories [facility]21 14[facility] COMPLAINT: - PLEURAL [...] kidney disease 17. Atherosclerotic heart disease of [place] coronary artery without angina pectoris 18. Morbid [...] allergy status 39. Latex allergy status 39. half-way (current) use of insulin 40. Other [place] [facility] (current) drug therapy 40. half-way (current) use of insulin 41. exterminator termite (current) use of aspirin 41. Other machine long goods helper (current) drug therapy 42. exterminator termite (current) use of opiate analgesic 42. half-way (current) use of aspirin 43. half-way (current) use of opiate analgesic 43. Family [...] digestive tract - Anxiety disorder, unspecified - half-way (current) use of aspirin - Retention of urine, unspecified - Major depressive disorder, single episode, unspecified - Cellulitis of left upper limb - Other specified postprocedural states - Chronic kidney disease, unspecified - Old myocardial infarction - Toxic encephalopathy - Anxiety disorder, unspecified - Atherosclerotic heart disease of [place] coronary artery without angina pectoris - Acute kidney failure, unspecified - Unspecified abdominal pain - Atherosclerotic heart disease of [place] coronary artery without angina pectoris - Urinary tract infection, site not specified - Myocardial infarction type 2 - Toxic encephalopathy - Presence of automatic (implantable) cardiac defibrillator - Pulmonary hypertension, unspecified - Other [place] [facility] (current[place] drug therapy - Acquired absence of [...] graft - Allergy status to sulfonamides - exterminator termite (current) use of aspirin - Allergy status [...] (severe) obesity with alveolar hypoventilation - Other [place] [facility] (current) drug therapy - Hypertensive heart and chronic kidney disease with heart failure and stage 1 through stage 4 chronic kidney disease, or unspecified chronic kidney disease [email or web address]
== END 2021-02-11 19:58 | disposition home or self-care (01) ==
LOC: ED 18:18
DX: T83.028A Displacement of other urinary catheter, initial encounter (principal); E11.9 Type 2 diabetes mellitus without complications; I50.9 Heart failure, unspecified; I25.2 Old myocardial infarction; I11.0 Hypertensive heart disease with heart failure; E78.00 Pure hypercholesterolemia, unspecified; Z88.0 Allergy status to penicillin; Z88.2 Allergy status to sulfonamides; Z91.040 Latex allergy status; Z88.8 Allergy status to other drugs, medicaments and biological substances; Z88.1 Allergy status to other antibiotic agents; Z88.5 Allergy status to narcotic agent; Z79.82 Long term (current) use of aspirin; Z79.899 Other long term (current) drug therapy; Z79.4 Long term (current) use of insulin
CPT/HCPCS: 99283

== ENCOUNTER 2021-02-22 17:14 | Inpatient (IN) | payer MEDICARE, OTHER ==
[~2021-02-22] VITALS: Ht 172.7 cm; Wt 96.6 kg
--- OUTSIDE RECORDS SUMMARY | 2021-02-22 17:16 | XMS ---
PreManage Notification: ADAM HINTON Security Joint Cutter Machine Events No recent Security Events currently on file CRITERIA MET - Group Notification - 6 ED Visits in 6 Months - [facility] - Has Care Guidelines - [facility] - 2 Visits in 30 Days CARE PROVIDERS SHILA ZAPIEN Internal Medicine Current PHONE: [phone] Maribel Burrows Community Health Worker 10/05/2019-Current PHONE: [phone] Angel Joseph DO [facility] Current PHONE: [phone] FIONA REAL Internal Medicine: Pulmonary Disease 10/01/2019-Current PHONE: Unknown Dimple Don Sample Mounter/Frame Maker 10/20/2020-Current PHONE: [phone] Guidelines Source: [facility] Guidelines Date: 09/07/2019 Care Coordination: Has\T\nbsp;received\T\nbsp;mental health services with [facility].\T\nbsp; Please contact [facility] with mental health\T\nbsp;concerns.\T\nbsp; [place]: [phone]\T\nbsp; [place]: [phone]. Care History Medical/Surgical 01/21/2021 [facility] *PCP DR SHILA ZAPIEN [facility] [phone] 10/02/2019 [facility] - PATIENT IS NO LONGER ESTABLISHED WITH DR JAIMES-PCP. - CHW CALLED PATIENT TO HELP PATIENT ESTABLISH CARE WITH ANOTHER PROVIDER- MESSAGE LEFT. E.D. VISIT COUNT (12 MO.) 8 [facility]. TOTAL 8 NOTE: Visits indicate total known visits. ED/UCC VISIT TRACKING (12 MO.) 02/22/2021 17:14 [facility] TYPE: Emergency COMPLAINT: - WEAKNESS 02/11/2021 18:18 [facility] TYPE: Emergency COMPLAINT: - POST OP PROBLEM DIAGNOSES: - Old myocardial infarction - Hypertensive heart disease with heart failure - Allergy status to narcotic agent - Allergy status to other drugs, medicaments and biological substances - Heart failure, unspecified - Type 2 diabetes mellitus without complications - skilled nursing (current) use of insulin - Allergy status to sulfonamides - Allergy status to penicillin - Latex allergy status - Displacement of other urinary catheter, initial encounter - Pure hypercholesterolemia, unspecified - Other disability rater (current) drug therapy - Allergy status to other antibiotic agents - middle school special education teacher (current) use of aspirin 02/04/2021 18:24 [facility] TYPE: Emergency [...] - Other abnormal findings in urine - skilled nursing (current) use of insulin - skilled nursing (current) use of aspirin - Other disability rater (current) drug therapy - Other mechanical complication [...] pain, unspecified - Old myocardial infarction - skilled nursing (current) use of aspirin - Personal history [...] 2 diabetes mellitus without complications - Other disability rater (current) drug therapy - middle school special education teacher (current) use of insulin - Allergy to other foods - Heart failure, unspecified - Allergy status to narcotic agent 01/25/2021 18:09 [facility] TYPE: Emergency COMPLAINT: - CATH PROBLEM DIAGNOSES: - Old myocardial infarction - Pelvic and perineal pain - Heart failure, unspecified - Other disability rater (current) drug therapy - Hypertensive heart disease with heart failure - Allergy to other foods - Type 2 diabetes mellitus without complications - Personal history of nicotine dependence - Breakdown (mechanical) of other urinary catheter, initial encounter - middle school special education teacher (current) use of insulin - Pure hypercholesterolemia, unspecified - Latex allergy status - Breakdown (mechanical) of other urinary catheter, initial encounter - Allergy status to sulfonamides - Allergy status to narcotic agent - Allergy status to other drugs, medicaments and biological substances 01/20/2021 16:32 [facility] TYPE: Emergency COMPLAINT: - CATHITER ISSUE DIAGNOSES: - Personal history of nicotine dependence - Other care home (current) drug therapy - Pure hypercholesterolemia, [...] - Allergy status to sulfonamides - middle school special education teacher (current) use of insulin - Pain due [...] heart disease with heart failure - middle school special education teacher (current) use of insulin - Retention of urine, unspecified - Latex allergy status - Allergy status to other antibiotic agents - Constipation, unspecified - Allergy status to other drugs, medicaments and biological substances - Other disability rater (current) drug therapy - Type 2 diabetes mellitus without complications INPATIENT VISIT TRACKING (12 MO.) [facility] DIAGNOSES: - Localized edema - Morbid (severe) obesity due to excess calories - Other disorders of plasma-protein metabolism, not elsewhere classified - Chronic systolic (congestive) heart failure - Breakdown (mechanical) of other cardiac electronic device, initial encounter - Anemia in chronic kidney disease - Presence of automatic (implantable) cardiac defibrillator - Ischemic cardiomyopathy - Retention of urine, unspecified - Essential (primary) hypertension - Other specified personal risk factors, not elsewhere classified - Atherosclerotic heart disease of [place] coronary artery with other forms of angina pectoris - Unspecified severe protein-calorie malnutrition - Chronic combined systolic (congestive) and diastolic (congestive) heart failure - Chronic kidney disease, stage 4 (severe) - Hypomagnesemia - Encounter for adjustment and management of automatic implantable cardiac defibrillator 01/01/2021 14:47 [facility] TYPE: Medical Surgical COMPLAINT: - PLEURAL EFFUSION, [...] kidney disease 17. Atherosclerotic heart disease of [place] coronary artery without angina pectoris 18. Morbid [...] allergy status 39. Latex allergy status 39. skilled nursing (current) use of insulin 40. Other disability rater (current) drug therapy 40. middle school special education teacher (current) use of insulin 41. middle school special education teacher (current) use of aspirin 41. Other disability rater (current) drug therapy 42. middle school special education teacher (current) use of opiate analgesic 42. middle school special education teacher (current) use of aspirin 43. middle school special education teacher (current) use of opiate analgesic 43. Family [...] digestive tract - Anxiety disorder, unspecified - middle school special education teacher (current) use of aspirin - Retention of urine, unspecified - Major depressive disorder, single episode, unspecified - Cellulitis of left upper limb - Other specified postprocedural states - Chronic kidney disease, unspecified - Old myocardial infarction - Toxic encephalopathy - Anxiety disorder, unspecified - Atherosclerotic heart disease of [place] coronary artery without angina pectoris - Acute kidney failure, unspecified - Unspecified abdominal pain - Atherosclerotic heart disease of [place] coronary artery without angina pectoris - Urinary tract infection, site not specified - Myocardial infarction type 2 - Toxic encephalopathy - Presence of automatic (implantable) cardiac defibrillator - Pulmonary hypertension, unspecified - Other care home (current) drug therapy - Acquired absence [...] graft - Allergy status to sulfonamides - skilled nursing (current) use of aspirin - Allergy status [...] (severe) obesity with alveolar hypoventilation - Other disability rater (current) drug therapy - Hypertensive heart and chronic kidney disease with heart failure and stage 1 through stage 4 chronic kidney disease, or unspecified chronic kidney disease [id number]
[2021-02-22] MEDS ORDERED: METOPROLOL SUCC50 MG PO (17:45)
[2021-02-22] MEDS ORDERED: SODIUM BICARBO650 MG PO (17:48)
[2021-02-22] MEDS ORDERED: TORSEMIDE20 MG PO (17:49)
[2021-02-22] MEDS ORDERED: TRESIBA100 UNIT/1 SUB-Q (17:50)
[2021-02-22] MEDS ORDERED: VENTOLIN HFA18 GM INH (17:54)
[2021-02-22] MEDS ORDERED: BENADRYL ALLERG25 MG PO (17:56)
[2021-02-22] MEDS ORDERED: DULCOLAX5 MG PO (17:57)
[2021-02-22] MEDS ORDERED: OXYCODONE HCL5 MG PO (17:58)
[2021-02-22] MEDS ORDERED: NYSTATIN15 GM TOP (18:00)
[2021-02-22] MEDS ORDERED: DIALYVITE WITH1 EACH PO (18:01)
[2021-02-22] MEDS ORDERED: FENOFIBRATE160 MG PO (18:02)
[2021-02-22] MEDS ORDERED: HUMALOG100 UNITS/ SUB-Q (18:04)
[2021-02-22] MEDS ORDERED: CITRATE OF MAG296 ML PO (18:05)
[2021-02-22] MEDS ORDERED: MOVANTIK25 MG PO (18:06)
[2021-02-22] MEDS ORDERED: C-10001000 MG PO (18:07)
[2021-02-22] MEDS ORDERED: AZELASTINE137 MCG/0. NAS (18:08)
[2021-02-22] MEDS ORDERED: CALCIUM500 MG PO (18:09)
[2021-02-22] MEDS ORDERED: MUCUS ER600 M1 PO (18:11)
--- NOTE | 2021-02-22 20:12 | EKG ---
[facility] [address] [facility] [place] [address] Signed Sinus tachycardia Possible Left atrial enlargement Low voltage QRS Incomplete right bundle branch block Left posterior fascicular block Cannot rule out Anteroseptal infarct (cited on or before 20-DEC-2016) Abnormal ECG When compared with ECG of 04-FEB-2021 18:39, premature ventricular complexes are no longer present T wave inversion now evident in Anterior leads Confirmed by EDUARDO WEISS MD ([id number]) on 02/22/2021 8:12:41 PM Electronically Signed By: EDUARDO WEISS MD 02/22/212011 PATIENT NAME: ADAM HINTON Electrocardiogram DATE OF : 72 PHYSICIAN: EDUARDO WEISS MD REPORT #: [id number] REPORT IS CONFIDENTIAL AND NOT TO BE RELEASED WITHOUT AUTHORIZATION
--- NOTE | 2021-02-22 22:30 | NUR ---
pt ARRIVED TO FLOOR. 3PA TO MOVE FROM STRETCHER TO BED. pt TEARFUL AND IN 8/10 PAIN. THIS RN IN TO DO ADMISSION.
--- NOTE | 2021-02-22 23:20 | NUR ---
ASSESSMENT DONE. pt TEARFUL ABOUT COVID DIAGNOSIS. pt IS FROM HOME WITH SISTER. SHE STATES THAT THEY ARE VERY CAREFUL ABOUT CLEANING AND NO ONE HAS BEEN THERE TO VISIT. pt RECENTLY DISCHARGED FROM [facility], WANTED TO GO TO REHAB TO GET STRONGER BUT DID NOT QUALIFY. pt REPORTED SHE HAS A PAIN CONTRACT AND TAKES 5MG OF OXYCODONE 7 TIMES A DAY. DISCUSSED PAIN MANAGEMENT OPTIONS. pt REPORTED 8/10 PAIN IN LEFT LOWER QUADRANT, TENDER TO TOUCH. BOWEL TONES ACTIVE. pt HAS CHRONIC PAIN. NUMBNESS REPORTED IN HANDS, THIS HAS BEEN GOING ON FOR 3 DAYS. EDEMA NOTED IN LEGS AND PERIAREA. PACEMAKER SITE ON LEFT CHEST HAS DRESSING, EDGES WELL APPROXIMATED. NO SIGNS OF INFECTION. MEDICATIONS GIVEN (SEE MAR). pt REPORTS HAVING 600MLS OF FLUID TODAY, SHE IS ON A 1600ML FLUID RESTRICTION AT HOME.
--- NOTE | 2021-02-23 00:55 | NUR ---
MAGNESIUM INFUSION COMPLETED. SL. pt GIVEN BACK MASSAGE WITH LOTION, PER REQUEST. LIGHT YELLOW URINE OUTPUT NOTED IN [place]. pt REPORTS PAIN UNCHANGED IN LEFT LOWER QUADRANT. NO FURTHER REQUESTS AT THIS TIME. CALL LIGHT WITHIN REACH.
--- NOTE | 2021-02-23 01:35 | NUR ---
UPDATED ON pt REQUEST FOR MORE PAIN MEDICATION. NEW ORDERS ENTERED.
--- NOTE | 2021-02-23 01:40 | NUR ---
pt UPDATED ON MD ORDERS.
--- NOTE | 2021-02-23 03:10 | NUR ---
IN TO GIVE MEDICATION. pt REQUESTED ASSISTANCE TO ADJUST BEDDING. 2PA TO ROLL, pt IN PAIN WHEN MOVING. CONTINUES TO RATE PAIN 8-9/10. DISCUSSED PAIN MANAGEMENT. ASSESSMENT DONE. NO CHANGES. MEDICATION GIVEN (SEE MAR). VITALS AND I&O RECORDED. URINE IS STOCK REPLENISHER IN COLOR. CALL LIGHT WITHIN REACH.
--- NOTE | 2021-02-23 03:36 | NUR ---
CALL LIGHT ON. pt DROPPED TISSUES. PAIN MEDICATION GIVEN FOR 8/10 PAIN. pt REPORTED ITCHING, LOTION APPLIED. ASSISTED TO CHANGE BRIEF, SMEAR BM NOTED. SAMIA CARE DONE. REDDENED AREA NOTED TO BUTTOCKS. NO FURTHER REQUESTS AT THIS TIME. CALL LIGHT WITHIN REACH.
--- NOTE | 2021-02-23 05:21 | NUR ---
CALL LIGHT ON. pt REQUESTED AN ICE PACK FOR HER NECK. PROVIDED. LABS DRAWN. NO FURTHER REQUESTS AT THIS TIME. CALL LIGHT WITHIN REACH.
--- NOTE | 2021-02-23 06:38 | NUR ---
IN TO GIVE SCHEDULED MEDICATION. pt REPORTED THAT HER PAIN IS DOWN TO AN 8/10. VITALS DONE. MED GIVEN (SEE MAR). NO REQUESTS AT THIS TIME. CALL LIGHT WITHIN REACH.
--- NOTE | 2021-02-23 07:15 | NUR ---
THIS RN RECEIVED REPORT FROM JASVIR CROWELL. THIS RN TO ASSUME CARE
--- NOTE | 2021-02-23 07:33 | NUR ---
IN TO GIVE PRN PAIN MEDS FOR 9/10 PAIN. BACK RUB PROVIDED FOR ITCHING PER REQUEST. BOOSTED IN BED. NO FURTHER REQUESTS AT THIS TIME. CALL LIGHT WITHIN REACH.
--- NOTE | 2021-02-23 09:30 | NUR ---
THIS RN IN PTS ROOM TO DO PT CARES. PT BED BOUND. THIS RN COMPLETED I&O'S, VITALS AND ASSESSMENT WITH MED PASS. PT CONCERNED ABOUT HER PHONES CHARGE, HER RENT AND HER APPOINTMENTS TODAY. THIS RN DISCUSSED WITH PT ABOUT NOT ALLOWING VISITORS OR HAVING ANYONE DROP ANYTHING OFF DUE TO ISOLATION PRECAUTIONS
[2021-02-23] MEDS ORDERED: GVOKE HYPO1 MG/0.21 SUB-Q (09:34)
--- NOTE | 2021-02-23 10:32 | NUR ---
TRIED TO CALL PATIENT IN ROOM. NO ANSWER. WILL CHECK BACK LATER.
--- NOTE | 2021-02-23 12:16 | NUR ---
PER NAEEM CROWELL PATIENT REQUESTING TO SPEAK WITH CASE MANAGEMENT. PATIENT CELL PHONE IS CHARGING AT THIS TIME, CASE MANAGEMENT TO CALL WHEN PATIENT IS READY SHE IS ON CONTACT [facility]. PER NAEEM CROWELL PATIENT IS INTERESTED IN DISCHARGE TO [facility]. I ADVISE NAEEM THAT THIS WOULD BE DIFFICULT GIVEN PATIENTS CURRENT COVID 19 DIAGNOSIS. WILL DISCUSS WITH PATIENT DURING CASE MANAGEMENT CALL.
--- NOTE | 2021-02-23 14:03 | NUR ---
CALL PATIENT ON PHONE CONTACT [facility] ARE IN PLACE AT THIS TIME. CASE MANAGEMENT ASSESSMENT COMPLETED. PATIENT IS OPEN TO SNIF PLACEMENT AT THIS TIME AND WOULD LIKE TO BE PLACED AT [facility]. ADVISED PATIENT THAT NONE OF OUR LOCAL CARE FACILITIES IN [facility] ARE CURRENTLY TAKING COVID + PATIENT. DISCUSSED DISCHARGE TO FACILITY IS [facility] OR [facility] AT LEAST TEMPORARILY DUE TO HER COVID DX. PATIENT IS AGREEABLE TO DISCHARGE TO [facility]. I ADVISED PATIENT I WOULD CONTACT CARE FACILITY AND UPDATE HER RENITA. 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 WILL CONTINUE TO FOLLOW UP WITH PATIENT.
--- NOTE | 2021-02-23 14:31 | NUR ---
PER STAFF AT [facility] THEY ARE NO LONGER ACCEPTING COVID + PATIENTS AT THIS TIME. PRIMARY RN NAEEM NOTIFIED.
--- NOTE | 2021-02-23 15:00 | NUR ---
THIS RN TO CHECK PTS COCCYX. ALLEVEN PLACED ON BLANCHABLE REDDEND AREA. DARKER AREA NOTED IN THE CENTER OF THE REDDENED AREA FROM WHAT PT STATED A SCAR FROM AN OLD PRESSURE ULCER.
--- NOTE | 2021-02-23 15:35 | NUR ---
PATIENT IN BED, BED BATH GIVEN. RAMÍREZ SANTIAGO, RN NOTIFIED AND DOWN TO LOOK. RN PUT ALEVYN ON RED AREA. SAMIA CARE, SKIN CARE, CATH CARE, SHAMPOO DONE. LINENS CHANGED. NEW ATTENDS IN PLACE. CALL LIGHT IN REACH. NO FURTHER NEEDS AT THIS TIME.
--- NOTE | 2021-02-23 16:15 | NUR ---
PER NAEEM RN PATIENT IS AGREEABLE TO PLACEMENT IN [place] GIVEN IT WILL BE TEMPORARY. H&P, FACESHEET, PROGRESS NOTE AND MEDICATION LIST FAXED TO [facility] IN [place]. SPOKE WITH HARDY WOODWIND INSTRUMENT REPAIRER AT [facility]. HE STATES THEY DO HAVE BED AVAILABILITY AND HE WILL STRAT THE CHART REVIEW WHEN NOTES ARE RECVD. DR. WEISS NOTIFIED. WILL FOLLOW UP ON PLACEMENT TOMORROW.
[2021-02-23] MEDS ORDERED: FLUTICASONE PRO16 GM NAS (17:24)
--- NOTE | 2021-02-23 17:26 | NUR ---
MED REC COMPLETE
--- NOTE | 2021-02-23 17:42 | NUR ---
THIS RN IN PTS ROOM TO GIVE PT DINNER, MEDS AND DO ADLS. PT ABLE TO SWALLOW PILLS OKAY, SLIGHT COUGH ON THE FIRST PILL BUT THEN ABLE TO SWALLOW WITH SLIGHT COACHING WITH TUCKING CHIN TO CHEST. PT STATES THAT SHE IS HAVING PAIN AND ITCHING, THIS RN PROVIDED 5MG OXY TO PT AND 1 BENDARYL.
--- NOTE | 2021-02-23 19:22 | NUR ---
CALL LIGHT ON. pt REQUESTED PRN FOR NAUSEA. ZOFRAN GIVEN (SEE MAR). pt REQUESTED BACK MASSAGE, ASSISTED TO REPOSITION. TIDIED ROOM. CALL LIGHT WITHIN REACH.
--- NOTE | 2021-02-23 19:34 | NUR ---
REPORT RECEIVED FROM MERVAT HARTLEY. MERVAT TAY IN ROOM MEDICATING pt FOR NAUSEA, REPOSITIONED AND INFLATED BED AT THIS TIME.
--- NOTE | 2021-02-23 21:59 | NUR ---
pt RESTING IN BED WATCHING TV. C/O 9/10 PAIN ON LEFT SIDE OF ABDOMEN AND AROUND BACK. PRN PAIN MEDICATION ADMINISTERED WITH SCHEDULED MEDICATIONS. LIM[place] CARE COMPLETE, DISCHARGE NOTED IN SAMIA AREA, UNDER FOLDS. REDDENED AREAS NOTED ALL OVER HANDS, ABDOMEN, pt STATES "ITS FROM ALL THE FLUID THAT I LOST, MY SKIN HAS BEEN DRY AND RED". REPOSITIONED TO RIGHT SIDE WITH PILLOW UNDER LEFT HIP. ALLOTTED PO FLUIDS PROVIDED AND SF PUDDING PER REQUEST. ASSESSMENT COMPLETE. CALL LIGHT IN REACH. NO ADDITIONAL NEEDS.
--- NOTE | 2021-02-23 22:45 | NUR ---
CALL LIGHT ANSWERED. DIET SPRITE PROVIDED REQUESTED. pt STATES "THAT PUDDING IS TOO THICK OF A CONSISTENCY, I CAN'T SWALLOW THAT". CALL LIGHT IN REACH.
--- NOTE | 2021-02-23 23:30 | NUR ---
CALL LIGHT ANSWERED. pt STATES SHE DIDN'T EAT DINNER WAS FEELING NAUSEOUS. ENSURE PROVIDED DUE TO LIMITED FOOD ITEM AVAILABLE. CALL LIGHT IN REACH.
--- NOTE | 2021-02-24 00:05 | NUR ---
RNS JASVIR AND GERMAN IN ROOM ASSISTING pt WITH CLEAN UP SPILLED ENSURE. ATTENDS, GOWN CHANGED.
--- NOTE | 2021-02-24 01:42 | NUR ---
CHECKED ON pt. APPEARS TO BE SLEEPING, LYING IN BED. BREATHING EQUAL AND UNLABORED. CALL LIGHT IS WITHIN REACH.
--- NOTE | 2021-02-24 02:47 | NUR ---
CALL LIGHT ANSWERED. pt SLEEPING WHEN RN ENTERS ROOM, AWAKENS, RATES PAIN 7-8/10 IN LEFT SIDE OF ABDOMEN. "I DON'T WANT IT TO GET WORSE". PRN PAIN MEDICATION ADMINISTERED. ASSESSMENT COMPLETE. pt C/O PAIN IN LEFT ARM WELL ABDOMEN, LEFT ARM WEAK, HAND RN POST PARTUM STRONG BILATERALLY. pt DENIES SOB. LIMA EMPTIED 575 MLS CLEAR YELLOW URINE. REPOSITIONED TO LEFT SIDE WITH PILLOW UNDER RIGHT HIP, BED INFLATED. CALL LIGHT IN REACH.
--- NOTE | 2021-02-24 06:55 | NUR ---
pt SLEEPING, AWAKENS TO VOICE. VSS. pt RATES PAIN 8/10 "ITS NOT BAD WHEN I JUST WAKE UP". PRN PAIN MEDICATION ADMINISTERED. LIMA EMPTIED. pt REPOSITIONED TO RIGHT SIDE WITH PILLOW UNDER LEFT HIP. LABS DRAWN BY THIS RN. BREAKFAST ORDER PLACED. CALL LIGHT IN REACH.
--- NOTE | 2021-02-24 07:00 | NUR ---
REPORT RECEIVED. PT IN BEDWATCHING TV. DID NOT DO BEDSIDE REPORT D/T PRECAUTIONS.
--- NOTE | 2021-02-24 08:45 | NUR ---
ASSESSMENT COMPLETED. PT REPOSITIONED IN BED. ALLEVYN TO COCCYX INTACT, NO REDNESS AROUND SITE. SAMIA/CATH CARE COMPLETED. PT WITH SMALL AMOUNT OF WHITE VAGINAL DISCHARGE. LIMA EMPTIED FOR 150MLS. VITALS TAKEN AND STABLE. OPSITE REMOVED FROM PACEMAKER SITE. SITE WNL WITH DRY SCABBING. REDNESS NOTED TO GROIN AREA. DESENEX ORDERED. PT REPROTS LAST BM WAS 02/17. BOWEL MEDS ORDERED. PT ALSO REQUESTING NASAL SPRAY. SALINE NASAL SPRAY ORDERED. LUNGS CLEAR. GENERAL EDEMA NOTED TO ABDOMEN. DAILY BED WEIGHT COMPLETED AND CHARTED. PT REPORTING PAIN IN ABDIMEN 9/10 NOW BUT ABLE TO WAIT TIL 1030 OXYCODONE DOSE. PT IS ALERT AND ORIENTED. CALL LIGHT IN REACH.
--- NOTE | 2021-02-24 09:30 | NUR ---
PT REPORTING NAUSEA WITH BREAKFAST. DEBBY ADMISNTERED. PT ATE 25% AND IS DONE EATING. NO FURTHER NEEDS. CALL LIGHT IN REACH.
--- NOTE | 2021-02-24 10:01 | NUR ---
FAX REQUESTED 3 DAYS OF NURSES NOTES TO HARDY AT [phone]. FAX CONFIRMATION RECEIVED.
--- NOTE | 2021-02-24 11:13 | NUR ---
CALLED HARDY AT [facility] [phone] TO MAKE SURE HE GOT FAX AND SEE IF THEY NEED ANYTHING ELSE. HE WAS IN A MEETING. VOICEMAIL LEFT.
--- NOTE | 2021-02-24 11:51 | NUR ---
PT GOT BEDBATH OF UPPER PORTION OF BODY BY THIS SHAHEEN AND SHAHEEN HICKMAN. PT HAD HAIR BRUSHED. WARM BLANKET GIVEN. CALL LIGHT WITHIN REACH BUT PT CALLED VIA CELL PHONE STATING SHE COULD NOT "GET TO IT" SHAHEEN HICKMAN WENT AND GAVE PT CALL LIGHT. NO FURTHER NEEDS AT THIS TIME.
--- NOTE | 2021-02-24 12:00 | NUR ---
PT REPORTS LUNCH IS TO HARD TO EAT AND SHE IS HAVING SOME NAUSEA. PT WITH NO MEDS FOR NAUSEA. ALCOHOL PAD PROVIDED. PT REPORTS IT HELPS. DR WEISS NOTIFIED OF NAUSEA. WILL PUT IN ORDERS. PT WANTS NAUSEA MEDS BEFOR DINNER TONIGHT. MEAL REPLACEMENT SHAKE PROVIDED FOR LUNCH REPLACEMENT. CALL LIGHT IN REACH.
--- NOTE | 2021-02-24 14:30 | NUR ---
THIS NURSE AND SALESFORCE TRAINER TO BEDSIDE. WASHED PT'S BACK AND REPOSITIONED IN BED. LIMA EMPTIED FOR 650MLS. ALLEVYN TO COCCYX STILL INTACT WITH NO NEW REDNESS PRESENT. LEGS ELEVATED. BRUISE NOTED ON RIGHT ARM, PT REPORTS IT BEING THERE BEFORE ADMISSION. LEFT AND RIGHT LEG STUMPS WITH NO WOUNDS OR BREAKDOWN PRESENT. FOLDS ON BODY DRIED WITH DESENEX POWDER PLACED. PT REPROTS SWEATING, TEMP IN ROOM DECREASED AND ICE PACK PROVIDED. CALL LIGHT AND PERSONAL ITEMS WITHIN REACH. PT DENIES FURTHER NEEDS.
--- NOTE | 2021-02-24 16:14 | NUR ---
PER HARDY AT [facility] PATIENT HAS BEEN ACCEPTED FOR ADMISSION AT THIS TIME. MIGUEL ANGEL VERA RN AND CARISSA RN NOTIFIED. CARISSA CROWELL TO NOTIFY PATIENT OF PLACEMENT.
--- NOTE | 2021-02-24 16:45 | NUR ---
ROUNDED ON PT. PRE-MEDICATED IH ZOFRAN TO PREVENT NASUEA WITH DINNER. REPOSITIONED IN BED. ICE PACK REFRESHED. CALL LIGHT AND PERSONAL ITEMS WITHIN REACH. DENIES FURTHER NEEDS.
--- NOTE | 2021-02-24 19:19 | NUR ---
PT CALLED FOR BACK RUBS AND REPOSITIONING. BACK WASHED AND DRIED. CALLL LIGHT WITHIN REACH. PT IS COMPLAINING OF PAIN. MERVAT HERNANDES AND CARISSA NOTIFIED.
--- NOTE | 2021-02-24 19:25 | NUR ---
REPORT RECEIVED FROM MERVAT FERRER. VENDING MACHINE SERVICER IN ROOM ASSISTING pt TO REPOSITION IN BED. CALL LIGHT IN REACH.
--- NOTE | 2021-02-24 19:29 | NUR ---
CALL MADE TO DR WEISS TO CONFIRM NO TREATMENT NEEDED FOR 3+ BACTERIA IN URINE SAMPLE. AWARE. NO NEW ORDERS.
--- NOTE | 2021-02-24 20:42 | NUR ---
CALL LIGHT ANSWERED. pt REQUESTING PRN PAIN MEDICATIONS. ASSESSMENT COMPLETE. LIMA CARE COMPLETE, YELLOW DRAINAGE NOTED FROM VAGINAL AREA, ATTENDS CHANGED. pt ABLE TO ASSIST WITH TURNING. REPOSITIONED TO RIGHT SIDE WITH PILLOW UNDER LEFT HIP. pt ABLE TO SWALLOW PO MEDICATIONS WITH WATER. CALL LIGHT IN REACH.
--- NOTE | 2021-02-24 23:00 | NUR ---
pt RESTING IN BED WITH EYES CLOSED, BREATHING EQUAL AND UNLABORED. LIGHTS OFF IN ROOM. TV ON. LIMA DRAINING YELLOW URINE. CALL LIGHT IN REACH.
--- NOTE | 2021-02-25 00:42 | NUR ---
CHECKED ON pt. RESTING IN BED WITH EYES CLOSED. BREATHING UNLABORED. LIGHTS OFF IN ROOM.
--- NOTE | 2021-02-25 01:55 | NUR ---
CALL LIGHT ANSWERED. pt REQUESTING PRN PAIN MEDICATION FOR 8/10 "BURNING, SHARP ACHE" IN LLQ OF ABDOMEN. PRN PAIN MEDICATION ADMINISTERED. pt REPOSITIONED IN BED TO FLOATING WITH PILLOWS UNDER EACH HIP. pt ABLE TO ASSIST WITH TURNING SIDE TO SIDE. LIMA EMPTIED. ASSESSMENT COMPLETE. CALL LIGHT IN REACH. LIGHTS OFF IN ROOM.
--- NOTE | 2021-02-25 04:33 | NUR ---
pt RESTING IN BED WITH EYES CLOSED. RR 18.
--- NOTE | 2021-02-25 06:26 | NUR ---
pt SLEEPING, AWAKENS TO VOICE. VSS. pt RATES PAIN 7-8/10 IN ABDOMEN AND LEFT ARM. PRN PAIN MEDICATION ADMINISTERED. REPOSITIONED TO LEFT SIDE WITH PILLOW UNDER RIGHT HIP, LEGS ELEVATED ON PILLOW. LIMA EMPTIED, 500 MLS YELLOW URINE. LABS DRAWN BY THIS RN. BREAKFAST ORDER PLACED. CALL LIGHT IN REACH.
--- NOTE | 2021-02-25 07:15 | NUR ---
this rn received report from cheko peña. pt in isolation room, this rn will check on pt
--- NOTE | 2021-02-25 08:30 | NUR ---
THIS RN IN PTS ROOM TO GIVE PT HER MORNING MEDS. PT VERY CONCERNED ABOUT HER FLUIDS. THIS RN EDUCATED PT ABOUT STAYING WITHIN HER FLUIDS AND TO WHY SHE NEEDS TO STAY WITHIN HER FLUID INTAKE. PT WANTING TO HAVE THE ENSURE, WATER AND DIET SPRITE. THIS RN DISCSSED WITH PT THAT THIS WOULD BE OVER HER FLUID LIMIT FOR THIS AM- PT REPORTS THAT SHE WOULD LIKE TO TALK TO THE CHARGE NURSE, THIS RN DISCUSSED WITH PT THAT SHE WON'T SAY SOMETHING DIFFERENT. PT NOT HAPPY BUT AGREEABLE ABOUT THE SITUATION
--- NOTE | 2021-02-25 09:00 | NUR ---
Spoke with Bee from [facility]. She states medicare will not pay to transport this pt even though we explained there is not a company in town or our area who will tranport Covid + pts out of town. Pt does have medicaid basic DMAP and I will check with their transport center to see if they would pay the cost of an ambulance. Called and spoke with Medicaid Transport, Ly[employer]. I will fax a 405T. She states the amount they will pay to [place] is $1032.41 and I will need to call [facility] and ask if they will accept this amt. Called and spoke with Bee and she was able to speak with someone and confirm they will accept this payment. Faxed 405T to Lyly at [phone] and she will send auth. Aneta LERMA, confirmed with [facility] they will accept this pt today and they are aware we are awaiting auth for medicaid transport.
[2021-02-25] MEDS ORDERED: OXYCODONE HCL5 MG PO (10:40)
[2021-02-25] MEDS ORDERED: NYAMYC15 GM TOP (10:47)
[2021-02-25] MEDS ORDERED: TORSEMIDE20 MG PO (10:49)
--- NOTE | 2021-02-25 11:22 | NUR ---
Notified by staff, pt would like to speak with me. She is stating if she cannot take her electric wc. Spoke with pt and explained we have a safe dc to a SNF that accepts + Covid pts. She does not have to accept this placement, she is discharged. If she does not want to go to the SNF she can dc to home today. Pt states she has been lied to and we are very rude. I explained I am not trying to be rude. We have called the ambulance for transport and they are on their way. Pt states she wants to go by wc van. I then explained the wc van does not transport covid pts. Also, her electric wc does not fit the wc van, so she could not take her wc anyway. I also explained we were able to get a 405T waiver which will cover the cost of her transport by ambulance so she will not have to pay for her transport. Pt then stating she is awaiting her friend to bring her clothing and prothesis and she needs these items. Informed I will ask the crew to wait until her personal belongings arrive. Pt then agrees to go to SNF.
--- NOTE | 2021-02-25 12:42 | NUR ---
THIS RN CALLED REPORT TO [facility] TO JOSE CROWELL. ALL QUESTIONS ANSWERED TO THE BEST OF THIS RN'S ABILITY
== END 2021-02-25 12:20 | DRG 291 ==
LOC: ED 17:14 → MS 21:18
PROVIDERS: ADMIT Internal Medicine; ATTEND Internal Medicine
DX: I13.0 Hypertensive heart and chronic kidney disease with heart failure and stage 1 through stage 4 chronic kidney disease, or unspecified chronic kidney disease (principal); I50.23 Acute on chronic systolic (congestive) heart failure; U07.1 COVID-19; N18.4 Chronic kidney disease, stage 4 (severe); F11.20 Opioid dependence, uncomplicated; I27.20 Pulmonary hypertension, unspecified; I25.10 Atherosclerotic heart disease of native coronary artery without angina pectoris; E11.22 Type 2 diabetes mellitus with diabetic chronic kidney disease; Z89.512 Acquired absence of left leg below knee; Z89.611 Acquired absence of right leg above knee; G89.4 Chronic pain syndrome; F39 Unspecified mood [affective] disorder; K76.1 Chronic passive congestion of liver; Z88.2 Allergy status to sulfonamides; Z91.040 Latex allergy status; Z88.1 Allergy status to other antibiotic agents; Z88.6 Allergy status to analgesic agent; Z88.5 Allergy status to narcotic agent; Z79.899 Other long term (current) drug therapy; Z90.49 Acquired absence of other specified parts of digestive tract; Z98.890 Other specified postprocedural states; Z88.8 Allergy status to other drugs, medicaments and biological substances; Z79.82 Long term (current) use of aspirin; E79.0 Hyperuricemia without signs of inflammatory arthritis and tophaceous disease
CPT/HCPCS: 71045; 74176; 80048; 80053; 81001; 83036; 83690; 83735; 83880; 84484; 85025; 87077; 87088; 87186; 92610; 93005; 93010; 96365; 96375; 97110; 97140; 97161; 97165; 99285-25; C9113; C9803; J0696; J1650; J1815; J1940; J2270; J2405; J3475; J7030; Q0177; U0003

== ENCOUNTER 2021-05-31 04:42 | Emergency (ER) | payer MEDICARE, OTHER ==
[~2021-05-31] VITALS: Ht 172.7 cm; Wt 113.4 kg
[~2021-05-31 04:42] MED LIST changes: +BENADRYL ALLERG25 MG PO; +C-10001000 MG PO; +CALCIUM500 MG PO; +CITRATE OF MAG296 ML PO; +DIALYVITE WITH1 EACH PO; +DULCOLAX5 MG PO; +FLUTICASONE PRO16 GM NAS; +GVOKE HYPO1 MG/0.21 SUB-Q; +HUMALOG100 UNITS/ SUB-Q; +METOPROLOL SUCC50 MG PO; +MUCUS ER600 M1 PO; +NYAMYC15 GM TOP; +NYSTATIN15 GM TOP; +TRESIBA100 UNIT/1 SUB-Q; +VENTOLIN HFA18 GM INH
--- OUTSIDE RECORDS SUMMARY | 2021-05-31 04:44 | XMS ---
PreManage Notification: ADAM HINTON Security Hard Tile Setter Events No recent Security Events currently on file [place]ITERIA MET [place] [facility] [place] - 6 ED Visits in 6 Months - PDMP CARE PROVIDERS SHILA ZAPIEN Internal Medicine Current PHONE: [phone] Maribel Burrows Community Health Worker 10/05/2019-Current PHONE: [phone] FIONA REAL Internal Medicine: Pulmonary Disease 10/01/2019-Current PHONE: Unknown Dimple Don Manager Contract/Crime Data Specialist 04/19/2021-Current PHONE: [phone] Care Guidelines exist for the following facilities: [facility] ( 09/07/2019 ) Care History Medical/Surgical 01/21/2021 [facility] *PCP DR SHILA ZAPIEN [facility] [phone] 10/02/2019 [facility] - PATIENT IS NO LONGER ESTABLISHED WITH DR JAIMES-POLLO. - CHW CALLED PATIENT TO HELP PATIENT ESTABLISH CARE WITH ANOTHER PROVIDER- MESSAGE LEFT. E.D. VISIT COUNT (12 MO.) 9 [facility]. TOTAL 9 NOTE: Visits indicate total known visits. ED/UCC VISIT TRACKING (12 MO.) 05/31/2021 04:43 [facility] TYPE: Emergency COMPLAINT: - MOD TRAUMA 02/22/2021 17:14 [facility] TYPE: Emergency COMPLAINT: - WEAKNESS 02/11/2021 18:18 [facility] TYPE: Emergency COMPLAINT: - POST OP PROBLEM DIAGNOSES: - Old myocardial infarction - Hypertensive heart disease with heart failure - Allergy status to narcotic agent - Allergy status to other drugs, medicaments and biological substances - Heart failure, unspecified - Type 2 diabetes mellitus without complications - snf (current) use of insulin - Allergy status to sulfonamides - Allergy status to penicillin - Latex allergy status - Displacement of other urinary catheter, initial encounter - Pure hypercholesterolemia, unspecified - Other termite renewal inspector (current) drug therapy - Allergy status to other antibiotic agents - snf (current) use of aspirin 02/04/2021 18:24 [facility] [...] - Other abnormal findings in urine - long term acute care registered nurse (current) use of insulin - snf (current) use of aspirin - Other senior care (current) drug therapy - Other mechanical complication [...] pain, unspecified - Old myocardial infarction - long term acute care registered nurse (current) use of aspirin - Personal history [...] diabetes mellitus without complications - Other termite renewal inspector (current) drug therapy - long term acute care registered nurse (current) use of insulin - Allergy to other foods - Heart failure, unspecified - Allergy status to narcotic agent 01/25/2021 18:09 [facility] TYPE: Emergency COMPLAINT: - CATH PROBLEM DIAGNOSES: - Old myocardial infarction - Pelvic and perineal pain - Heart failure, unspecified - Other senior care (current) drug therapy - Hypertensive heart disease with heart failure - Allergy to other foods - Type 2 diabetes mellitus without complications - Personal history of nicotine dependence - Breakdown (mechanical) of other urinary catheter, initial encounter - snf (current) use of insulin - Pure hypercholesterolemia, unspecified - Latex allergy status - Breakdown (mechanical) of other urinary catheter, initial encounter - Allergy status to sulfonamides - Allergy status to narcotic agent - Allergy status to other drugs, medicaments and biological substances 01/20/2021 16:32 [facility] TYPE: Emergency COMPLAINT: - CATHITER ISSUE DIAGNOSES: - Personal history of nicotine dependence - Other senior care (current) drug therapy - Pure hypercholesterolemia, unspecified [...] complications - Allergy status to sulfonamides - snf (current) use of insulin - Pain due [...] Hypertensive heart disease with heart failure - long term acute care registered nurse (current) use of insulin - Retention of urine, unspecified - Latex allergy status - Allergy status to other antibiotic agents - Constipation, unspecified - Allergy status to other drugs, medicaments and biological substances - Other senior care (current) drug therapy - Type 2 diabetes mellitus without complications INPATIENT VISIT TRACKING (12 MO.) 02/22/2021 21:[address] [facility] TYPE: Medical Surgical COMPLAINT: - DECOMPENSATED HF DIAGNOSES: - Chronic kidney disease, stage 4 (severe) - Chronic pain syndrome - snf (current) use of aspirin - Chronic pain syndrome - Allergy status to other drugs, medicaments and biological substances - Other specified postprocedural states - Acquired absence of other specified parts of digestive tract - Allergy status to other antibiotic agents - Pulmonary hypertension, unspecified - long term acute care registered nurse (current) use of aspirin - Allergy status to other drugs, medicaments and biological substances - Acquired absence of right leg above knee - Chronic passive congestion of liver - Allergy status to narcotic agent - Opioid dependence, uncomplicated - Chronic kidney disease, stage 4 (severe) - Acquired absence of right leg above knee - COVID-19 - Allergy status to analgesic agent - Allergy status to other antibiotic agents - Hypertensive heart and chronic kidney disease with heart failure and stage 1 through stage 4 chronic kidney disease, or unspecified chronic kidney disease - Acquired absence of left leg below knee - Hypertensive heart and chronic kidney disease with heart failure and stage 1 through stage 4 chronic kidney disease, or unspecified chronic kidney disease - Pulmonary hypertension, unspecified - Allergy status to sulfonamides - Atherosclerotic heart disease of koi coronary artery without angina pectoris - Allergy status to analgesic agent - Other senior care (current) drug therapy - Hyperuricemia without signs of inflammatory arthritis and tophaceous disease - Allergy status to narcotic agent - Atherosclerotic heart disease of koi coronary artery without angina pectoris - Type 2 diabetes mellitus with diabetic chronic kidney disease - Acquired absence of other specified parts of digestive tract - Latex allergy status - Opioid dependence, uncomplicated - Latex allergy status - Acute on chronic systolic (congestive) heart failure - COVID-19 - Allergy status to sulfonamides - Other specified postprocedural states - Type 2 diabetes mellitus with diabetic chronic kidney disease - Acquired absence of left leg below knee - Other senior care (current) drug therapy - Unspecified mood [affective] disorder - Chronic passive congestion of liver - Hyperuricemia without signs of inflammatory arthritis and tophaceous disease - Chronic kidney disease, stage 5 - Chronic kidney disease, stage 5 - Unspecified mood [affective] disorder [facility] DIAGNOSES: - Localized edema [...] elsewhere classified - 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 Atherosclerotic heart disease of koi coronary artery without angina pectoris 18. Morbid [...] allergy status 39. Latex allergy status 39. long term acute care registered nurse (current) use of insulin 40. Other termite renewal inspector (current) drug therapy 40. long term acute care registered nurse (current) use of insulin 41. long term acute care registered nurse (current) use of aspirin 41. Other termite renewal inspector (current) drug therapy 42. snf (current) use of opiate analgesic 42. long term acute care registered nurse (current) use of aspirin 43. long term acute care registered nurse (current) use of opiate analgesic 43. Family [...] digestive tract - Anxiety disorder, unspecified - snf (current) use of aspirin - Retention of urine, unspecified - Major depressive disorder, single episode, unspecified - Cellulitis of left upper limb - Other specified postprocedural states - Chronic kidney disease, unspecified - Old myocardial infarction - Toxic encephalopathy - Anxiety disorder, unspecified - Atherosclerotic heart disease of koi coronary artery without angina pectoris - Acute kidney failure, unspecified - Unspecified abdominal pain - Atherosclerotic heart disease of koi coronary artery without angina pectoris - Urinary tract infection, site not specified - Myocardial infarction type 2 - Toxic encephalopathy - Presence of automatic (implantable) cardiac defibrillator - Pulmonary hypertension, unspecified - Other senior care (current) drug therapy - Acquired absence of [...] graft - Allergy status to sulfonamides - long term acute care registered nurse (current) use of aspirin - Allergy status [...] obesity with alveolar hypoventilation - Other termite renewal inspector (current) drug therapy - Hypertensive heart and chronic kidney disease with heart failure and stage 1 through stage 4 chronic kidney disease, or unspecified chronic kidney disease [email or web address]
[2021-05-31] MEDS ORDERED: DILAUDID2 MG PO (09:06)
--- NOTE | 2021-05-31 15:53 | CONS ---
[facility] [address] [place], [place] [address] Signed DATE OF CONSULTATION: 05/31/2021 TIME: 5:20 a.m. CONSULTING PHYSICIAN: Rachelle Funes MD. REQUESTING PHYSICIAN: Josiah Llanes MD. PROBLEM: Chronic lower abdominal wall wound with recent fresh significant bleeding. HISTORY OF PRESENT ILLNESS: This 51-year-old white woman has numerous medical problems including chronic renal failure and a prior history of panniculectomy. She presented on transfer from emergency medical services with a left lower abdominal chronic wound that had rather significant actual bleeding. Evaluation by Dr. Llanes showed her to have a systolic blood pressure of 89. Sheets of her bedding at home were said to be "covered with blood." She has not had a problem like this before. She was under the care of various physicians at [facility] in the [facility] and apparently recently underwent a CT scan. She says she is waiting for an ultrasound evaluation of her abdominal wall wound. The wound itself is a chronic wound, likely related to her panniculectomy in the past. Dr. Llanes noted that there was bleeding that was rather persistent and although not pulsatile, was persistent enough that did require application of digital pressure for control. Injection locally with local anesthesia containing epinephrine allowed for complete cessation of the bleeding. The patient was given crystalloid solution and her blood pressure is now 118, pulse is about 80 and she seems to have no acute issue. 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 She has had chronic renal failure and dialysis in the past, most recently Electronically Signed By: RACHELLE FUNES MD 05/31/21 1553 PATIENT NAME: ADAM HINTON CONSULTATION DATE OF : 72 REPORT #: [id number] PHYSICIAN: RACHELLE FUNES MD PCP: SHILA ZAPIEN MD REPORT IS CONFIDENTIAL AND NOT TO BE RELEASED WITHOUT AUTHORIZATION [facility] [address], [place] [address] Signed dialyzed through what sounds like a Mahurkar catheter of some type. PHYSICAL EXAMINATION: GENERAL: This is an obese white woman who is alert and oriented. She is not particularly painful. Chest shows normal respiratory excursion without tachypnea. HEART: Regular. She still has a considerable abdominal wall pannus. In the left lower quadrant is a dense mass about the size of my hand that is firm and what appears to have underlying induration without inflammation proper. There is no pulsatile nature to the mass. An open wound approximately 6 x 4 cm with a satellite similar such lesion is noted on the edge of what appears to be an abdominoplasty scar in the left lower quadrant. The open component of the wound appears to be dry and dense fatty tissue. There is no sign of bleeding at all at this time. There is no sign of ecchymosis of the abdominal wall. Manipulation of the area shows dense firm probably chronic fatty necrosis or scarring. LABORATORY STUDIES: Show a hemoglobin of 7.1 of distant (December), hematocrit was noted to be 33. ASSESSMENT: The source of her bleeding at the wound site is of uncertain etiology. It appears to be completely controlled at this time. The chronic indurated wound may have simply had an area of chronic granulation that eroded and caused bleeding. It is unlikely this represents an unusual vascular lesions such as a telangiectasia or rectus sheath vascular anomaly. At this time, she is not bleeding and consideration for a transfusion has been made by the emergency room physician, which is probably reasonable given her hematocrit of about 21. I suspect her anemia is more related to chronic disease and apparent renal failure. Obviously, we have no facility for dialysis locally. Some amount of emergency observation and transfusion would be reasonable. I would not recommend abdominal wall exploration at this time certainly thorough evaluation of the CT scan findings recently performed. The patient denies any prior history of colon problems specifically diverticular disease or anything to suggest that this would represent a colocutaneous fistula with bleeding manifestation, though she does tell us that she is anticipating a colonoscopy that has been recommended by her managing physicians at [facility]. We will review this further with Dr. Llanes and proceed accordingly. Electronically Signed By: RACHELLE FUNES MD 05/31/21 1553 PATIENT NAME: ADAM HINTON CONSULTATION DATE OF : 72 REPORT #: [id number] PHYSICIAN: RACHELLE FUNES MD PCP: SHILA ZAPIEN MD REPORT IS CONFIDENTIAL AND NOT TO BE RELEASED WITHOUT AUTHORIZATION [facility] [address] [place], [place] [address] Signed Rachelle Funes MD JM/MODL /[id number] cc: Josiah Llanes MD Copies: JOSIAH LLANES MD ~ Electronically Signed By: RACHELLE FUNES MD 05/31/21 1553 PATIENT NAME: ADAM HINTON CONSULTATION DATE OF : 72 REPORT #: [id number] PHYSICIAN: RACHELLE FUNES MD PCP: SHILA ZAPIEN MD REPORT IS CONFIDENTIAL AND NOT TO BE RELEASED WITHOUT AUTHORIZATION
== END 2021-05-31 11:52 | disposition home or self-care (01) ==
LOC: ED 04:42
DX: L98.499 Non-pressure chronic ulcer of skin of other sites with unspecified severity (principal); D62 Acute posthemorrhagic anemia; N18.9 Chronic kidney disease, unspecified; I12.9 Hypertensive chronic kidney disease with stage 1 through stage 4 chronic kidney disease, or unspecified chronic kidney disease; E11.22 Type 2 diabetes mellitus with diabetic chronic kidney disease; E78.00 Pure hypercholesterolemia, unspecified; I25.2 Old myocardial infarction; Z88.2 Allergy status to sulfonamides; Z91.040 Latex allergy status; Z88.8 Allergy status to other drugs, medicaments and biological substances; Z88.1 Allergy status to other antibiotic agents; Z88.5 Allergy status to narcotic agent; Z79.899 Other long term (current) drug therapy; Z79.82 Long term (current) use of aspirin; Z79.4 Long term (current) use of insulin
CPT/HCPCS: 36430; 74176; 80053; 80500; 83605; 85025; 86850; 86900; 86901; 86922; 99284-25; J1170; J7030; J7121

== ENCOUNTER 2021-06-09 04:54 | Emergency (ER) | payer MEDICARE, OTHER ==
[~2021-06-09] VITALS: Ht 172.7 cm; Wt 101.6 kg
[~2021-06-09 04:54] MED LIST changes: +DILAUDID2 MG PO
--- OUTSIDE RECORDS SUMMARY | 2021-06-09 05:42 | XMS ---
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 No recent Security Events currently on file CRITERIA MET - Group Notification - PDMP - 6 ED Visits in 6 Months - [facility] - 2 Visits in 30 Days - [facility] - Has Care Guidelines CARE PROVIDERS SHILA ZAPIEN Internal Medicine Current PHONE: [phone] Maribel Burrows Community Health Worker 10/05/2019-Current PHONE: [phone] FIONA REAL Internal Medicine: Pulmonary Disease 10/01/2019-Current PHONE: Unknown Dimple Don [employer] Duplicator/Extract Mixer 04/19/2021-Current PHONE: [phone] Care Guidelines exist for the following facilities: [facility] [place] ( 09/07/2019 ) Care History Medical/Surgical 01/21/2021 [facility] *PCP DR SHILA ZAPIEN [facility] [phone] 10/02/2019 [facility] - PATIENT IS NO LONGER ESTABLISHED WITH DR JAIMES-PCP. - [facility] CALLED PATIENT TO HELP PATIENT ESTABLISH CARE WITH ANOTHER PROVIDER- MESSAGE LEFT. E.D. VISIT COUNT ([address] [facility]. TOTAL 10 NOTE: Visits indicate total known visits. ED/UCC VISIT TRACKING (12 MO.) 06/09/2021 04:54 [facility] TYPE: Emergency COMPLAINT: - ABDOMINAL PAIN 05/31/2021 04:43 [facility] TYPE: Emergency COMPLAINT: - ULCER DIAGNOSES: - Allergy status to narcotic agent - Acute posthemorrhagic anemia - Other [employer] (current) drug therapy - [facility]FP (current) use of aspirin - Non-pressure chronic ulcer of skin of other sites with unspecified severity - Hypertensive chronic kidney disease with stage 1 through stage 4 chronic kidney disease, or unspecified chronic kidney disease - Latex allergy status - Non-pressure chronic ulcer of skin of other sites with unspecified severity - Allergy status to other drugs, medicaments and biological substances - Allergy status to other antibiotic agents - MCFP (current) use of insulin - Chronic kidney disease, unspecified - Allergy status to sulfonamides - Old myocardial infarction - Pure hypercholesterolemia, unspecified - Type 2 diabetes mellitus with diabetic chronic kidney disease 02/22/2021 17:14 [facility] TYPE: Emergency COMPLAINT: - WEAKNESS 02/11/2021 18:18 [facility] TYPE: Emergency COMPLAINT: - POST OP PROBLEM DIAGNOSES: - Old myocardial infarction - Hypertensive heart disease with heart failure - Allergy status to narcotic agent - Allergy status to other drugs, medicaments and biological substances - Heart failure, unspecified - Type 2 diabetes mellitus without complications - MCFP (current) use of insulin - Allergy status to sulfonamides - Allergy status to penicillin - Latex allergy status - Displacement of other urinary catheter, initial encounter - Pure hypercholesterolemia, unspecified - Other retirement (current) drug therapy - Allergy status to other antibiotic agents - MCFP (current) use of aspirin 02/04/2021 18:24 [facility] [...] - Other abnormal findings in urine - MCFP (current) use of insulin - [employer] (current) use of aspirin - Other retirement (current) drug therapy - Other mechanical complication [...] pain, unspecified - Old myocardial infarction - [employer] (current) use of aspirin - Personal history [...] 2 diabetes mellitus without complications - Other [employer] (current) drug therapy - [employer] (current) use of insulin - Allergy to other foods - Heart failure, unspecified - Allergy status to narcotic agent 01/25/2021 18:09 [facility] TYPE: Emergency COMPLAINT: - CATH PROBLEM DIAGNOSES: - Old myocardial infarction - Pelvic and perineal pain - Heart failure, unspecified - Other retirement (current) drug therapy - Hypertensive heart disease with heart failure - Allergy to other foods - Type 2 diabetes mellitus without complications - Personal history of nicotine dependence - Breakdown (mechanical) of other urinary catheter, initial encounter - MCFP (current) use of insulin - Pure hypercholesterolemia, unspecified - Latex allergy status - Breakdown (mechanical) of other urinary catheter, initial encounter - Allergy status to sulfonamides - Allergy status to narcotic agent - Allergy status to other drugs, medicaments and biological substances 01/20/2021 16:32 [facility] TYPE: Emergency COMPLAINT: - CATHITER ISSUE DIAGNOSES: - Personal history of nicotine dependence - Other [employer] (current) drug therapy - Pure hypercholesterolemia, unspecified [...] complications - Allergy status to sulfonamides - [employer] (current) use of insulin - Pain due [...] Hypertensive heart disease with heart failure - [employer] (current) use of insulin - Retention of urine, unspecified - Latex allergy status - Allergy status to other antibiotic agents - Constipation, unspecified - Allergy status to other drugs, medicaments and biological substances - Other [employer] (current) drug therapy - Type 2 diabetes mellitus without complications INPATIENT VISIT TRACKING (12 MO.) 02/22/2021 21:[address] [facility] TYPE: Medical Surgical COMPLAINT: - DECOMPENSATED HF DIAGNOSES: - Chronic kidney disease, stage 4 (severe) - Chronic pain syndrome - MCFP (current) use of aspirin - Chronic pain syndrome - Allergy status to other drugs, medicaments and biological substances - Other specified postprocedural states - Acquired absence of other specified parts of digestive tract - Allergy status to other antibiotic agents - Pulmonary hypertension, unspecified - [employer] (current) use of aspirin - Allergy status [...] to sulfonamides - Atherosclerotic heart disease of [place] coronary artery without angina pectoris - Allergy status to analgesic agent - Other retirement (current) drug therapy - Hyperuricemia without signs of inflammatory arthritis and tophaceous disease - Allergy status to narcotic agent - Atherosclerotic heart disease of [place] coronary artery without angina pectoris - Type [...] of left leg below knee - Other [employer] (current) drug therapy - Unspecified mood [affective] disorder - Chronic passive congestion of liver - Hyperuricemia without signs of inflammatory arthritis and tophaceous disease - Chronic kidney disease, stage 5 - Chronic kidney disease, stage 5 - Unspecified mood [affective] disorder 02/05/2021 07:50 [facility] TYPE: Internal Medicine DIAGNOSES: - Localized edema [...] elsewhere classified - Atherosclerotic heart disease of [place] coronary artery with other forms of angina pectoris - Unspecified severe protein-calorie malnutrition - Chronic combined systolic (congestive) and diastolic (congestive) heart failure - Chronic kidney disease, stage 4 (severe) - Hypomagnesemia - Encounter for adjustment and management of automatic implantable cardiac defibrillator 01/01/2021 14:47 [facility] TYPE: Medical Surgical COMPLAINT: - PLEURAL EFFUSION, [...] kidney disease 17. Atherosclerotic heart disease of [place] coronary artery without angina pectoris 18. Morbid [...] allergy status 39. Latex allergy status 39. [employer] (current) use of insulin 40. Other [employer] (current) drug therapy 40. [employer] (current) use of insulin 41. [employer] (current) use of aspirin 41. Other retirement (current) drug therapy 42. [employer] (current) use of opiate analgesic 42. MCFP (current) use of aspirin 43. [employer] (current) use of opiate analgesic 43. Family [...] digestive tract - Anxiety disorder, unspecified - [employer] (current) use of aspirin - Retention of urine, unspecified - Major depressive disorder, single episode, unspecified - Cellulitis of left upper limb - Other specified postprocedural states - Chronic kidney disease, unspecified - Old myocardial infarction - Toxic encephalopathy - Anxiety disorder, unspecified - Atherosclerotic heart disease of [place] coronary artery without angina pectoris - Acute kidney failure, unspecified - Unspecified abdominal pain - Atherosclerotic heart disease of [place] coronary artery without angina pectoris - Urinary tract infection, site not specified - Myocardial infarction type 2 - Toxic encephalopathy - Presence of automatic (implantable) cardiac defibrillator - Pulmonary hypertension, unspecified - Other [employer] (current) drug therapy - Acquired absence of [...] graft - Allergy status to sulfonamides - MCFP (current) use of aspirin - Allergy status [...] (severe) obesity with alveolar hypoventilation - Other [employer] (current) drug therapy - Hypertensive heart and chronic kidney disease with heart failure and stage 1 through stage 4 chronic kidney disease, or unspecified chronic kidney disease [email or web address]
== END 2021-06-09 13:42 | disposition short-term general hospital (02) ==
LOC: ED 04:54
DX: N17.9 Acute kidney failure, unspecified (principal); R10.32 Left lower quadrant pain; R19.7 Diarrhea, unspecified; I11.0 Hypertensive heart disease with heart failure; I50.9 Heart failure, unspecified; E11.9 Type 2 diabetes mellitus without complications; E78.00 Pure hypercholesterolemia, unspecified; Z20.822 Contact with and (suspected) exposure to COVID-19; Z89.512 Acquired absence of left leg below knee; Z88.2 Allergy status to sulfonamides; Z91.040 Latex allergy status; Z88.5 Allergy status to narcotic agent; Z88.8 Allergy status to other drugs, medicaments and biological substances; Z91.018 Allergy to other foods; Z79.82 Long term (current) use of aspirin; Z79.899 Other long term (current) drug therapy
CPT/HCPCS: 80053; 81001; 83605; 83690; 83735; 85007; 85025; 87493; 96365; 96375; 96376; 99285-25; J1170; J2405; J3243; J7030; U0003